=== PATIENT | female | born 1955 | race Caucasian/White ===

== ENCOUNTER → 2017-10-07 09:05 | Emergency (ER) | payer MEDICARE, MEDICAID, SELFPAY ==
[2017-10-07 09:06] VITALS: BP 159/101; PULSE 111; RESP 20; TEMP 36.6; O2SAT 96; BMI 29.5
--- NOTE | 2017-10-07 09:22 | EKG12_ITS ---
Test Reason : ABNLPAIN Blood Pressure : / mmHG Vent. Rate : 099 BPM Atrial Rate : 099 BPM P-R Int : 160 ms QRS Dur : 094 ms QT Int : 346 ms P-R-T Axes : 046 -09 129 degrees QTc Int : 444 ms Normal sinus rhythm Nonspecific ST and T wave abnormality Abnormal ECG Confirmed by RITA TATE, SHARMIN ([id number]), metropolitan editor JAN VALENTIN ([id number]) on 10/09/2017 12:59:05 PM Referred By: HEMALATHA Confirmed By:SHARMIN SALINAS MD
--- NOTE | 2017-10-07 09:22 | CT_ITS ---
STUDY: CT ABDOMEN AND PELVIS WITH CONTRAST REASON FOR EXAM: Female, 62 years old. Nausea and diarrhea RADIATION DOSAGE (If Supplied By Facility): CTDIvol = ( 16.72 ) mGy, DLP = ( 1401.05 ) mGycm TECHNIQUE: Transaxial images were obtained from the dome of the diaphragm to the symphysis pubis with oral contrast. 100 ml of Isovue 300 contrast was administered. Sagittal and coronal images were reconstructed. Individualized dose optimization techniques were used for this CT. COMPARISON: 08/17/2013 FINDINGS: Atelectasis in the lung bases. The visualized portions of the heart are within normal limits. There is decreased attenuation of the liver consistent with steatosis. There is non-visualization of the gallbladder, which may be secondary to either contraction or a prior cholecystectomy. Pneumobilia is noted. Normal spleen. Normal pancreas. Normal bilateral adrenal glands. Normal right kidney. Normal left kidney. Small nonenhancing left renal cyst. There is a small hiatal hernia. Normal small intestine. There are multiple colonic diverticula consistent with diverticulosis. The appendix is visualized and appears normal. Normal abdominal aorta. Normal inferior vena cava. Normal retroperitoneum. Normal urinary bladder. There is absence of the uterus consistent with a prior hysterectomy. Normal abdominal wall. There are diffuse degenerative changes of the visualized lumbar spine. CT/Abdomen/Pelvis WITH Contrast IMPRESSION: Nonvisualized gallbladder. Pneumobilia. Fatty steatosis of the liver. No acute findings of the small or large bowel. Electronically Signed: Power Farias DO at 13:09 EST Tel , Service support ,
--- NOTE | 2017-10-07 09:28 | ED.DCSUM_ITS ---
- ER Visit Summary Date of Service: 10/07/17 Chief Complaint: [Nausea] History of Present Illness: The patient is a 62 F [who presents the emergency department with nausea. She has chronic ongoing problems with her abdomen. She is followed with Dr. Spicer. She had an upper endoscopy 2 weeks ago which showed a hiatal hernia. She had an appointment yesterday because she could not get her nausea under control and was started on Reglan. She scheduled for gastric emptying study on . She cannot sleep because the nausea persist. She has no vomiting. Last night she had 10-12 episodes of watery diarrhea. She has a history of a complete hysterectomy no other abdominal surgeries. Urine has been unchanged. She has some mild right back pain. She is a smoker. She has a history of COPD. She has poorly controlled diabetes and her blood sugars have been running over 300.] Physical Examination: [] Blood pressure 159/101 heart rate 111 respiratory rate 20 WN WD NAD PERRL EOMI MMM NECK supple and nontender, no masses RRR no murmur rub or gallop, no peripheral edema, symmetric radial pulses CTAB no respiratory distress ABDOMEN is soft mild epigastric tenderness, normal bowel sounds, no distension, no rebound or guarding SKIN is warm and dry no rashes Alert and Oriented x3, CN II-XII in tact, no motor or sensory deficits, gait normal No lymphadenopathy Tearful Test Results: [] Emergency Department Course and Treatment: [Patient was given fluids. Screening labs consistent with a leukocytosis at 15.2. In review of labs patient has a chronic leukocytosis. CT of the abdomen and pelvis was obtained with p.o. and IV contrast and shows pneumobilia and absence of the gallbladder consistent with prior cholecystectomy. Patient did improve with Phenergan and Ativan however nausea did come back she was given Zofran and states that did not help. She was then given another dose of Phenergan and Ativan. She has a gastric emptying study scheduled in 2 days. She is recently started on Reglan. I will write her a prescription for Phenergan suppositories. At this time I think she can be discharged home to continue to follow with Dr. pSicer] Treatment Plan: [] Disposition: [Discharge] Impression: [1. Nausea 2. Mild dehydration 3. Chronic leukocytosis] This note was generated with [employer] software. It may contain incorrect words, spelling, and punctuation that were not noted in review of the chart prior to signing ED Disposition - Plan for ED Patient: Chief Complaint: Abd Pain Referrals: Ricci Broussard MD [Primary Care Provider] -
[2017-10-07] MEDS: 0.9% Normal Saline 1,000 ML 1000 ML IV (09:33)
[2017-10-07] MEDS: LORazepam 2 MG/ML Syringe 0.5 MG IV ×2 (09:33→13:57)
[2017-10-07 09:49] LABS: Absolute Lymphocyte Count 2.74 X10^3/ul (0.83-4.51); Absolute Neutrophil Count 11.3 X10^3/uL (2.0-7.7); Basophil# 0.05 X10^3/uL; Basophil% 0.3 % (0-1); Eosinophil# 0.04 X10^3/uL; Eosinophils% 0.3 % (0-5); Hematocrit 47.7 % (37-47); Hemoglobin 16.8 g/dl (12.0-15.0); Lymphocyte # 2.74 X10^3/ul (4.0); Mean Corp Hgb Conc 35.2 g/gl (32-36); Mean Corpuscular Hgb 31.2 pg (27.0-32.0); Mean Corpuscular Volume 88.7 fL (81-99); Mean Platelet Vol. 9.4 fl (6.2-12.0); Monocyte# 1.01 X10^3/uL; Monocyte% 6.6 % (0-10); Neutrophil # 11.32 X10^3/uL (2.7-7.7); Neutrophil % 74.3 % (47-70); Platelet Count 462 K/mm3 (150-450); RBC Distribution Width CV 13.6 % (11.6-14.6); RBC Distribution Width SD 44.2 fl (35.1-43.9); Red Blood Count 5.38 M/mm3 (4.2-5.4); White Blood Count 15.2 K/mm3 (4.4-11.0)
[2017-10-07 09:54] LABS: POSITIVE COUNT NO; POSITIVE DIFFERENTIAL NO; POSITIVE MORPHOLOGY NO
[2017-10-07 10:03] LABS: AST(SGOT) 12 U/L (15-37); Alanine Aminotransfer ALT/SGPT 20 U/L (13-56); Alkaline Phosphatase 94 U/L (45-117); Anion Gap 9 (5-15); BUN 5 mg/dL (7-18); BUN/Creat Ratio 7.2 RATIO (10-20); Calcium,Total 9.6 mg/dL (8.5-10.1); Chloride 102 mmol/L (98-107); EST Glomerular Filtration Rate 91 mL/min (>60); Est Glom Filt Rate - Afr Amer 110 mL/min (>60); Estimated Creatinine Clearance 83.11 ml/min; Glucose 302 mg/dL (74-106); Lipase 120 U/L (73-393); Potassium 3.5 mmol/L (3.5-5.1); Sodium Level 136 mmol/L (136-145)
[2017-10-07 10:14] LABS: Mucous, Urine 0 SEEN /hpf (<or=2+); Red Blood Cells-Urine 0 SEEN /hpf (0-5)
[2017-10-07 10:19] LABS: Color, Urine Yellow (Yellow); Glucose, Dipstick 1000 mg/dl (Normal); Ketone-Dipstick 50 mg/dl (Negative); Leukocyte Esterase-Dipstick 500 /ul (Negative); Nitrite-Dipstick Negative (Negative); Occult Blood-Urine 25 /ul (Negative); Protein-Dipstick Negative (Negative); Specific Gravity, Urine 1.015 (1.002-1.030); Urine Bilirubin Dipstick Negative (Negative); Urine Clarity Sl. Cloudy (Clear); Urine Urobilinogen Normal (Normal)
[2017-10-07 10:29] LABS: Bacteria RARE /hpf (None Seen); Squamous Epithelial Cells - UA 0-5 SEEN /hpf (5-10); White Blood Cells 0-5 SEEN /hpf (0-5)
[2017-10-07 10:30] LABS: Yeast-Urine 1+ /hpf (None Seen)
[2017-10-07] MEDS: Ondansetron 4 MG/2 ML Vial IV (12:19)
[2017-10-07 12:22] VITALS: BP 141/80; PULSE 92; RESP 16; O2SAT 100
--- NOTE | 2017-10-07 13:47 | ED.DEP ---
ED Disposition - Plan for ED Patient: Chief Complaint: Abd Pain Instructions: ED Nausea Vomiting Prescriptions: ProMETHAzine [Phenergan] 25 mg RECTAL Q6H PRN PRN #14 suppos. PRN Reason: Nausea Referrals: Ricci Broussard MD [Primary Care Provider] - 3-5 Days Godwin Spicer MD [STAFF PHYSICIAN] -
[2017-10-07 14:12] VITALS: BP 152/81; PULSE 95; RESP 18; O2SAT 98
== END ==
PROVIDERS: Emergency Provider Emergency Medicine; Family Provider Family Medicine; PCP Family Medicine
DX: R11.0 Nausea (principal); E86.0 Dehydration; D72.829 Elevated white blood cell count, unspecified; R10.816 Epigastric abdominal tenderness; M54.9 Dorsalgia, unspecified; R19.7 Diarrhea, unspecified; R32 Unspecified urinary incontinence; J44.9 Chronic obstructive pulmonary disease, unspecified; E11.65 Type 2 diabetes mellitus with hyperglycemia; Z86.79 Personal history of other diseases of the circulatory system; K44.9 Diaphragmatic hernia without obstruction or gangrene; Z90.710 Acquired absence of both cervix and uterus; Z90.49 Acquired absence of other specified parts of digestive tract; Z79.899 Other long term (current) drug therapy; Z72.0 Tobacco use
CPT/HCPCS: 74177; 80053; 81001; 83690; 85025; 93005; 96361; 96374; 96375; 96376; 99283; J7030; Q9967; A4216; J2405

== ENCOUNTER 2017-10-13 10:51 | Emergency (ER) | payer MEDICARE, MEDICAID, SELFPAY ==
[2017-10-13 10:53] VITALS: BP 149/76; PULSE 101; RESP 30; TEMP 36.9; O2SAT 96; BMI 28.5
[2017-10-13] MEDS: LORazepam 2 MG/ML Syringe 1 MG IV (11:34)
[2017-10-13] MEDS: 0.9% Normal Saline 1,000 ML 1000 ML IV (11:34)
[2017-10-13 11:40] LABS: Absolute Lymphocyte Count 4.74 X10^3/ul (0.83-4.51); Absolute Neutrophil Count 8.4 X10^3/uL (2.0-7.7); Basophil# 0.06 X10^3/uL; Basophil% 0.4 % (0-1); Eosinophil# 0.05 X10^3/uL; Eosinophils% 0.3 % (0-5); Hematocrit 44.4 % (37-47); Hemoglobin 15.7 g/dl (12.0-15.0); Lymphocyte # 4.74 X10^3/ul (4.0); Lymphocyte % 33.1 % (19-41); Mean Corp Hgb Conc 35.4 g/gl (32-36); Mean Corpuscular Volume 87.7 fL (81-99); Mean Platelet Vol. 9.5 fl (6.2-12.0); Monocyte# 0.98 X10^3/uL; Monocyte% 6.9 % (0-10); Neutrophil # 8.42 X10^3/uL (2.7-7.7); Platelet Count 355 K/mm3 (150-450); RBC Distribution Width CV 13.2 % (11.6-14.6); RBC Distribution Width SD 42.1 fl (35.1-43.9); Red Blood Count 5.06 M/mm3 (4.2-5.4); White Blood Count 14.3 K/mm3 (4.4-11.0)
[2017-10-13 11:42] LABS: POSITIVE COUNT NO; POSITIVE DIFFERENTIAL NO; POSITIVE MORPHOLOGY NO
--- NOTE | 2017-10-13 11:45 | RAD_ITS ---
STUDY: X-RAY CHEST REASON FOR EXAM: Female, 62 years old. Cough. TECHNIQUE: PA and lateral views of the chest. COMPARISON: Comparison is made with prior study dated October 14, 2016. FINDINGS: The lungs are clear and expanded. There is no demonstrated pleural abnormality. Normal size heart. Normal mediastinum and karsten. Normal visualized pulmonary arteries. There is atherosclerotic tortuosity of the aortic arch and descending thoracic aorta. There are degenerative changes of the visualized thoracic spine. Normal visualized ribs, clavicles, and shoulders. There is no demonstrated abnormality of the visualized soft tissue structures of the upper abdomen. RAD/Chest PA and Lateral IMPRESSION: No acute abnormality is seen. Electronically Signed: Jose Angel Tim MD at 13:48 EST Tel [phone], Service support ,
[2017-10-13 11:50] LABS: AST(SGOT) 11 U/L (15-37); Alanine Aminotransfer ALT/SGPT 23 U/L (13-56); Albumin, Serum 3.7 g/dL (3.2-5.0); Alkaline Phosphatase 75 U/L (45-117); Anion Gap 10 (5-15); BUN 10 mg/dL (7-18); BUN/Creat Ratio 11.9 RATIO (10-20); Calcium,Total 9.8 mg/dL (8.5-10.1); Chloride 104 mmol/L (98-107); Creatinine, Serum 0.84 mg/dL (0.55-1.02); EST Glomerular Filtration Rate 74 mL/min (>60); Est Glom Filt Rate - Afr Amer 89 mL/min (>60); Estimated Creatinine Clearance 71.85 ml/min; Globulin 3.6 g/dL (2.2-4.2); Glucose 323 mg/dL (74-106); Lipase 118 U/L (73-393); Potassium 3.9 mmol/L (3.5-5.1); Protein, Total 7.3 g/dL (6.4-8.2); Sodium Level 136 mmol/L (136-145)
--- NOTE | 2017-10-13 11:54 | RAD_ITS ---
STUDY: X-RAY - ABDOMEN/PELVIS REASON FOR EXAM: Female, 62 years old. Nausea. TECHNIQUE: AP supine and upright views of the abdomen and pelvis. COMPARISON: None. FINDINGS: Normal visualized lung bases. There is a moderate amount of colonic fecal material. There is no demonstrated free abdominal air. The visualized liver, spleen and kidneys are grossly normal in size and morphology. Normal soft tissue structures. There are diffuse changes of the visualized lumbar spine. RAD/Abd Inc Decub and/or Erect IMPRESSION: Moderate amount of fecal material is seen in the colon. Electronically Signed: Jose Angel Tim MD at 12:16 EST Tel [phone], Service support ,
--- NOTE | 2017-10-13 12:19 | ED.RN ---
Patient resting comfortably with eyes closed. No distress noted. Await results.
[2017-10-13 12:35] VITALS: BP 157/92; PULSE 84; RESP 16; O2SAT 93
[2017-10-13 12:38] LABS: Mucous, Urine 0 SEEN /hpf (<or=2+); Red Blood Cells-Urine 0 SEEN /hpf (0-5)
[2017-10-13 12:41] LABS: Color, Urine Yellow (Yellow); Glucose, Dipstick 1000 mg/dl (Normal); Ketone-Dipstick 5 mg/dl (Negative); Leukocyte Esterase-Dipstick 500 /ul (Negative); Nitrite-Dipstick Negative (Negative); Occult Blood-Urine 10 /ul (Negative); Protein-Dipstick Negative (Negative); Urine Bilirubin Dipstick Negative (Negative); Urine Clarity Clear (Clear); Urine Urobilinogen Normal (Normal)
[2017-10-13 12:49] LABS: Bacteria RARE /hpf (None Seen); Squamous Epithelial Cells - UA 0-5 SEEN /hpf (5-10); White Blood Cells 5-10 SEEN /hpf (0-5)
--- NOTE | 2017-10-13 13:31 | ED.DCSUM_ITS ---
- ER Visit Summary Date of Service: 10/13/17 Chief Complaint: Nausea History of Present Illness: The patient is a 62 F who presents with nausea. She has a history of chronic nausea but it is worse for the past 8 days. She had diarrhea earlier but this has since resolved. She was recently seen in the emergency department for similar symptoms and had workup including a CT. She is also currently being worked up for gastroparesis. She reports cough and shortness of breath as well as bilateral ear pain and pressure. No fevers. No vomiting. Physical Examination: Afebrile heart rate 101 Patient appears very anxious Moist mucous membranes Tympanic membranes are clear Heart regular rhythm tachycardia Lungs are clear Abdomen soft nontender nondistended Alert Test Results: Laboratory studies are notable for white blood cell count 14.3. This is decreased from her prior labs and she appears to have a chronic leukocytosis. She also has 500 leukocyte esterase in the urine with 5-10 WBCs. This was also sent for culture. Chest x-ray and abdominal x-rays are notable for moderate fecal material but no acute process. Emergency Department Course and Treatment: She was treated with IV fluids Phenergan and Ativan. She is resting comfortably and reports symptomatic improvement on reevaluation. We will treat with Cipro. She will follow-up with her primary care physician. She understands to return for new or worsening symptoms. All questions answered at bedside patient comfortable with the plan. Treatment Plan: [] Disposition: Discharge Impression: UTI Chronic nausea Otalgia This note was generated with [employer] dictation software. It may contain incorrect words, spelling, and punctuation that were not noted in review of the chart prior to signing ED Disposition - Plan for ED Patient: Chief Complaint: General Illness Referrals: Ricci Broussard MD [Primary Care Provider] -
--- NOTE | 2017-10-13 13:32 | ED.DEP ---
ED Disposition - Plan for ED Patient: Chief Complaint: General Illness Instructions: ED UTI Cystitis Female, ED Nausea Vomiting Prescriptions: Ciprofloxacin [Cipro] 500 mg PO BID #14 tab Referrals: Ricci Broussard MD [Primary Care Provider] -
[2017-10-13 13:48] VITALS: BP 143/79; PULSE 80; RESP 14; O2SAT 97
== END 2017-10-13 14:27 | disposition home or self-care (01) ==
PROVIDERS: Emergency Provider Emergency Medicine; Family Provider Family Medicine; PCP Family Medicine
DX: N39.0 Urinary tract infection, site not specified (principal); R11.0 Nausea; H92.03 Otalgia, bilateral; R05 Cough; R06.00 Dyspnea, unspecified; E11.43 Type 2 diabetes mellitus with diabetic autonomic (poly)neuropathy; K31.84 Gastroparesis; K21.9 Gastro-esophageal reflux disease without esophagitis; J44.9 Chronic obstructive pulmonary disease, unspecified; M79.7 Fibromyalgia; Z90.89 Acquired absence of other organs; Z90.49 Acquired absence of other specified parts of digestive tract; Z90.710 Acquired absence of both cervix and uterus; Z79.899 Other long term (current) drug therapy; Z72.0 Tobacco use
CPT/HCPCS: 71046; 74019; 80048; 80053; 81001; 83690; 85025; 87086; 87088; 96361; 96374; 96375; 99283; J7030; A4216

== ENCOUNTER → 2018-04-27 20:08 | Emergency (ER) | payer MEDICARE, MEDICAID, SELFPAY ==
[2018-04-27 20:11] VITALS: BP 207/189; PULSE 103; RESP 26; TEMP 36.6; O2SAT 95; BMI 31.1
--- NOTE | 2018-04-27 20:20 | ED.VISSUMM ---
- ER Visit Summary Date of Service: 04/27/18 Chief Complaint: Nausea and vomiting History of Present Illness: The patient is a 63 F who is had nausea and vomiting for the past 4 days. She states she has been having some abdominal pain with it. It sharp and diffuse. She attributes it to the all the vomiting she has been doing. She has had some mild diarrhea as well. Denies any urinary symptoms. She states that she has been very diaphoretic for the past 4 days. She had mild chest pain that started tonight. She attributes it to her anxiety which she states is pretty bad. She also complains of slight headache. She denies any fevers. She did not take anything for the symptoms at home. Physical Examination: Vital signs reviewed. HEENT exam unremarkable. Heart is regular rate and rhythm without murmurs. Lungs are clear to auscultation. Abdomen is soft and nontender. Extremities reveal no edema. Skin exam normal. Neurologic exam reveals chronic twitching and movements. Test Results: EKG is normal sinus rhythm with nonspecific ST and T-wave changes. White blood cell count 12.4, sodium 147, chloride 109, potassium 3.3. Troponin normal. Liver enzymes normal. Urinalysis 2+ leukocytes and positive nitrites Emergency Department Course and Treatment: Patient was hydrated with normal saline. She was given IV Reglan. I did give her some Ativan which helped calm her down she feels much better. She did have a UTI so she will be given Cipro here. I will give her Cipro and Reglan for home. We will follow-up with her PCP Treatment Plan: [] Disposition: Discharge Impression: UTI, nausea and vomiting This note was generated with [employer] dictation software. It may contain incorrect words, spelling, and punctuation that were not noted in review of the chart prior to signing ED Disposition - Plan for ED Patient: Chief Complaint: Nausea/Vomiting Referrals: Ricci Broussard MD [Primary Care Provider] -
[2018-04-27] MEDS: Metoclopramide 10 MG/2 ML Vial IV (20:34)
[2018-04-27] MEDS: 0.9% Normal Saline 1,000 ML 1000 ML IV (20:34)
[2018-04-27 20:43] LABS: Absolute Lymphocyte Count 1.86 X10^3/ul (0.83-4.51); Absolute Neutrophil Count 9.8 X10^3/uL (2.0-7.7); Basophil# 0.01 X10^3/uL; Basophil% 0.1 % (0-1); Eosinophil# 0.03 X10^3/uL; Eosinophils% 0.2 % (0-5); Hematocrit 40.5 % (37-47); Hemoglobin 13.5 g/dl (12.0-15.0); Lymphocyte # 1.86 X10^3/ul (4.0); Mean Corp Hgb Conc 33.3 g/gl (32-36); Mean Corpuscular Hgb 30.1 pg (27.0-32.0); Mean Corpuscular Volume 90.4 fL (81-99); Mean Platelet Vol. 9.1 fl (6.2-12.0); Monocyte# 0.68 X10^3/uL; Monocyte% 5.5 % (0-10); Neutrophil # 9.77 X10^3/uL (2.7-7.7); Platelet Count 305 K/mm3 (150-450); RBC Distribution Width CV 13.4 % (11.6-14.6); RBC Distribution Width SD 44.2 fl (35.1-43.9); Red Blood Count 4.48 M/mm3 (4.2-5.4); White Blood Count 12.4 K/mm3 (4.4-11.0)
--- NOTE | 2018-04-27 20:43 | EKG12_ITS ---
Test Reason : CHEST PAIN/NAUSEA Blood Pressure : / mmHG Vent. Rate : 096 BPM Atrial Rate : 096 BPM P-R Int : 134 ms QRS Dur : 098 ms QT Int : 376 ms P-R-T Axes : 037 005 061 degrees QTc Int : 475 ms Normal sinus rhythm Normal ECG Confirmed by KARELY CARROLL ([id number]), magazine editor JAN VALENTIN ([id number]) on 05/05/2018 2:16:41 PM Referred By: CLEMENTINA/AMARA Confirmed By:KARELY CARROLL
[2018-04-27 20:45] LABS: POSITIVE COUNT NO; POSITIVE DIFFERENTIAL NO; POSITIVE MORPHOLOGY NO
[2018-04-27] MEDS: LORazepam 2 MG/ML Syringe 1 MG IV (20:46)
[2018-04-27 20:54] VITALS: BP 153/84; PULSE 89; RESP 26; O2SAT 95
[2018-04-27 21:02] LABS: AST(SGOT) 15 U/L (15-37); Alanine Aminotransfer ALT/SGPT 26 U/L (13-56); Albumin, Serum 3.6 g/dL (3.2-5.0); Alkaline Phosphatase 70 U/L (45-117); Anion Gap 14 (5-15); BUN 13 mg/dL (7-18); BUN/Creat Ratio 20.2 RATIO (10-20); Calcium,Total 8.9 mg/dL (8.5-10.1); Chloride 109 mmol/L (98-107); Creatinine, Serum 0.64 mg/dL (0.55-1.02); EST Glomerular Filtration Rate 99 mL/min (>60); Est Glom Filt Rate - Afr Amer 120 mL/min (>60); Estimated Creatinine Clearance 89.77 ml/min; Globulin 3.5 g/dL (2.2-4.2); Glucose 197 mg/dL (74-106); Lipase 30 U/L (73-393); Potassium 3.3 mmol/L (3.5-5.1); Protein, Total 7.1 g/dL (6.4-8.2); Sodium Level 147 mmol/L (136-145)
[2018-04-27 21:48] LABS: Mucous, Urine 0 SEEN /hpf (<or=2+); Red Blood Cells-Urine 0 SEEN /hpf (0-5)
[2018-04-27 21:56] LABS: Color, Urine Yellow (Yellow); Glucose, Dipstick Normal (Normal); Leukocyte Esterase-Dipstick 500 /ul (Negative); Nitrite-Dipstick Positive (Negative); Occult Blood-Urine 50 /ul (Negative); Protein-Dipstick 30 mg/dl (Negative); Specific Gravity, Urine 1.025 (1.002-1.030); Urine Bilirubin Dipstick Negative (Negative); Urine Clarity Sl. Cloudy (Clear); Urine Urobilinogen 1 mg/dl (Normal)
[2018-04-27 21:58] LABS: Ketone-Dipstick 150 mg/dl (Negative)
--- NOTE | 2018-04-27 22:02 | ED.DEP ---
ED Disposition - Plan for ED Patient: Disposition: Home or Assisted Living Chief Complaint: Nausea/Vomiting Instructions: ED UTI Cystitis Female Prescriptions: Ciprofloxacin [Cipro] 500 mg PO BID #10 tab Metoclopramide [Reglan] 10 mg PO 4X/DAY PRN #20 tab PRN Reason: Headache Referrals: Ricci Broussard MD [Primary Care Provider] -
[2018-04-27 22:04] LABS: Bacteria 4+ /hpf (None Seen); Squamous Epithelial Cells - UA 5-10 SEEN /hpf (5-10); White Blood Cells 10-25 SEEN /hpf (0-5)
[2018-04-27] MEDS: Ciprofloxacin 500 MG Tablet PO (22:10)
[2018-04-27 22:17] VITALS: BP 135/73; PULSE 94; RESP 16; O2SAT 95
== END | disposition home or self-care (01) ==
PROVIDERS: Emergency Provider Emergency Medicine; Family Provider Family Medicine; PCP Family Medicine
DX: N39.0 Urinary tract infection, site not specified (principal); R11.2 Nausea with vomiting, unspecified; R51 Headache; R07.9 Chest pain, unspecified; F41.9 Anxiety disorder, unspecified; Z79.899 Other long term (current) drug therapy
CPT/HCPCS: 80053; 81001; 83690; 84484; 85025; 87086; 87088; 87186; 93005; 96361; 96374; 96375; 99285; J7030; A4216; J2405

== ENCOUNTER 2018-07-04 19:33 | Emergency (ER) | payer MEDICARE, MEDICAID, SELFPAY ==
[2018-07-04 19:35] VITALS: BP 147/107; PULSE 113; RESP 19; TEMP 36.5; O2SAT 95; BMI 31.9
--- NOTE | 2018-07-04 19:54 | ED.RN ---
PT VERY UPSET WITH FAMILY MEMBERS BEING MEAN, DISRESPECTFUL TO PT. PT DENIES SUICIDAL IDEATION OR HOMICIDAL IDEATION.
[2018-07-04 20:12] VITALS: BP 161/93; PULSE 107; RESP 24; O2SAT 96
--- NOTE | 2018-07-04 20:15 | EKG12_ITS ---
Test Reason : [facility] [place] Blood Pressure : / mmHG Vent. Rate : 105 BPM Atrial Rate : 105 BPM P-R Int : 146 ms QRS Dur : 082 ms QT Int : 336 ms P-R-T Axes : 048 -01 105 degrees QTc Int : 444 ms Sinus tachycardia Nonspecific ST and T wave abnormality Abnormal ECG Confirmed by RITA TATE, SHARMIN ([id number]), material expeditor JAN VALENTIN ([id number]) on 07/07/2018 3:57:53 PM Referred By: JAMES Confirmed By:SHARMIN SALINAS MD
[2018-07-04 20:56] LABS: Absolute Lymphocyte Count 3.15 X10^3/ul (0.83-4.51); Absolute Neutrophil Count 8.6 X10^3/uL (2.0-7.7); Basophil# 0.04 X10^3/uL; Basophil% 0.3 % (0-1); Eosinophil# 0.09 X10^3/uL; Eosinophils% 0.7 % (0-5); Hematocrit 45.3 % (37-47); Hemoglobin 15.1 g/dl (12.0-15.0); Lymphocyte # 3.15 X10^3/ul (4.0); Lymphocyte % 24.8 % (19-41); Mean Corp Hgb Conc 33.3 g/gl (32-36); Mean Corpuscular Hgb 30.2 pg (27.0-32.0); Mean Corpuscular Volume 90.6 fL (81-99); Mean Platelet Vol. 9.4 fl (6.2-12.0); Monocyte# 0.85 X10^3/uL; Monocyte% 6.7 % (0-10); Neutrophil # 8.55 X10^3/uL (2.7-7.7); Neutrophil % 67.3 % (47-70); Platelet Count 374 K/mm3 (150-450); RBC Distribution Width CV 13.5 % (11.6-14.6); RBC Distribution Width SD 44.2 fl (35.1-43.9); White Blood Count 12.7 K/mm3 (4.4-11.0)
[2018-07-04 21:05] LABS: POSITIVE COUNT NO; POSITIVE DIFFERENTIAL NO; POSITIVE MORPHOLOGY NO
[2018-07-04] MEDS: LORazepam 1 MG Tablet PO (21:06)
[2018-07-04] MEDS: proMETHazine 25 MG Tablet PO (21:06)
[2018-07-04 21:08] LABS: Mucous, Urine 0 SEEN /hpf (<or=2+); Red Blood Cells-Urine 0 SEEN /hpf (0-5)
[2018-07-04 21:13] LABS: BUN 9 mg/dL (7-18); Creatinine, Serum 0.62 mg/dL (0.55-1.02); EST Glomerular Filtration Rate 104 mL/min (>60); Estimated Creatinine Clearance 92.66 ml/min; Glucose 131 mg/dL (74-106)
[2018-07-04 21:14] LABS: Anion Gap 8 (5-15); BUN/Creat Ratio 14.6 RATIO (10-20); Calcium,Total 8.9 mg/dL (8.5-10.1); Chloride 108 mmol/L (98-107); Est Glom Filt Rate - Afr Amer 126 mL/min (>60); Potassium 3.5 mmol/L (3.5-5.1); Sodium Level 140 mmol/L (136-145); Thyroid Stim Hormone (TSH) 0.49 uIU/mL (0.358-3.74)
[2018-07-04 21:14] LABS: Glucose, Dipstick Normal (Normal); Ketone-Dipstick 15 mg/dl (Negative); Leukocyte Esterase-Dipstick 500 /ul (Negative); Nitrite-Dipstick Positive (Negative); Occult Blood-Urine 50 /ul (Negative); Protein-Dipstick 30 mg/dl (Negative); Specific Gravity, Urine 1.025 (1.002-1.030); Urine Bilirubin Dipstick Negative (Negative); Urine Urobilinogen Normal (Normal)
[2018-07-04 21:20] LABS: Color, Urine Yellow (Yellow); Urine Clarity Sl Cldy (Clear)
[2018-07-04 21:23] LABS: Bacteria 4+ /hpf (None Seen); Squamous Epithelial Cells - UA 0-5 SEEN /hpf (5-10); White Blood Cells 10-25 SEEN /hpf (0-5)
[2018-07-04 21:30] LABS: Alcohol, Blood (Medical)-Serum < 3.0 mg/dL
[2018-07-04 21:31] LABS: Amphetamine Urine VISTA NEGATIVE (<1000 ng/mL); Barbiturate Urine VISTA NEGATIVE (< 200 ng/mL); Benzodiazepine Urine VISTA NEGATIVE (< 200 ng/mL); Cocaine Urine VISTA NEGATIVE (< 300 ng/mL); Ecstacy Urine VISTA NEGATIVE (< 500 ng/mL); Methadone Urine VISTA NEGATIVE (< 300 ng/mL); PCP Urine VISTA NEGATIVE (< 25 ng/mL); THC Urine VISTA POSITIVE (< 50 ng/mL); Vista UDS pH Range 7
[2018-07-04] MEDS: Nitrofurantoin Macrocrystals 100 MG Capsule PO (21:43)
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
[2018-07-04] MEDS: Ibuprofen 200 MG Tablet 400 MG PO (22:25)
[2018-07-04 22:33] VITALS: BP 110/60; PULSE 72; RESP 18
--- NOTE | 2018-07-04 22:51 | ED.RN ---
NOAM FROM CRISIS IS HERE TO SEE PT.
[2018-07-05 00:08] VITALS: BP 130/80; PULSE 68; RESP 18
[2018-07-05 00:09] VITALS: BP 130/80; PULSE 68; RESP 18
== END 2018-07-05 00:38 | disposition home or self-care (01) ==
PROVIDERS: Emergency Provider Emergency Medicine; Family Provider Family Medicine; PCP Family Medicine
DX: F30.8 Other manic episodes (principal); N39.0 Urinary tract infection, site not specified; F31.9 Bipolar disorder, unspecified; F41.9 Anxiety disorder, unspecified; Z87.440 Personal history of urinary (tract) infections; Z79.899 Other long term (current) drug therapy
CPT/HCPCS: 36415; 80048; 80307; 80320; 81001; 84443; 85025; 93005; 99283; G0480

== ENCOUNTER → 2018-07-22 12:17 | Outpatient (CLI) | payer MEDICARE, MEDICAID, SELFPAY ==
[2018-07-22 14:12] LABS: Amphetamine Urine VISTA NEGATIVE (<1000 ng/mL); Barbiturate Urine VISTA NEGATIVE (< 200 ng/mL); Benzodiazepine Urine VISTA NEGATIVE (< 200 ng/mL); Cocaine Urine VISTA NEGATIVE (< 300 ng/mL); Ecstacy Urine VISTA NEGATIVE (< 500 ng/mL); Methadone Urine VISTA NEGATIVE (< 300 ng/mL); PCP Urine VISTA NEGATIVE (< 25 ng/mL); THC Urine VISTA NEGATIVE (< 50 ng/mL); Vista UDS pH Range 5
--- OUTSIDE RECORDS SUMMARY | 2018-09-16 21:27 | XMS RPT_ITS ---
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 REPOSITORY Office Visit ([facility]WS) IVET VALERO ([id number]) 1955 F Date Time Provider Department 06/30/18 11:00 AM Yasmany HOLLAND) FAMPWS During your visit today, we recorded the following information about you: Temperature Pulse Respiration Blood pressure 99.5 degrees 96/minute 14/minute 116/84 Weight 92.5 kg Dino Hernandez Isela 06/30/2018 1:05 PM Signed 63 year old female here for INACTIVATED INFLUENZA VACCINE. Season Patient is identified by name and date of : Yes [] CONTRAINDICATIONS color enhanced section Age less than 6 months? No Allergy to eggs, chicken, chicken feathers, or chicken dander? No Allergy to thimerosal (a preservative) or formaldehyde, gelatin? No History of severe reaction to any vaccine component or a previous dose of influenza vaccination? No History of Guillain-[place] Syndrome within 6 weeks after a previous influenza vaccine? No Patient is not moderately or severely ill? No Current temperature greater or equal to 100.4F? No History of Bone Marrow Transplant prior 6 months or solid organ transplant in the past 3 months ? No History of fainting after a prior injection or medical procedure? No- ? If patient has fainted in the past, the CDC recommends sitting or lying down for 15 minutes after the vaccination. [] VERIFICATION color enhanced section Was the answer Yes for any of the above contraindications? No contraindications present. Acceptable to proceed with vaccine. Patient/guardian agrees the above answers are true to the best of their knowledge? Yes Flu vaccine information sheet given? Yes See immunization activity in [facility] for details of immunizations adminstered today. Patient age: [age] year old For The 6625-2067 Flu Season 6-35 months old: Fluzone 0.25 ml - IM (Preservative Free) 3 years of age: Fluzone 0.5 ml - IM (Preservative Free) 3 years and older: Fluzone 0.5 ml- IM-(with Preservatives) 65+ years old: 2-49 years old Fluzone High-Dose 0.5 ml - IM (Preservative Free) FLUMIST- intranasal REMEMBER: If patient is less than 9 years of age and this is the first vaccine of Influenza to be received in any flu season, they should receive a second dose in one months time. Yasmany Holland PA-C 06/30/2018 1:05 PM Signed 63 year old female with c/o Son had abscess which ruptured in brain, life-flighted with immediate surgery. Not responsive. Also has abscess on heart. Had to take part of his brain out. Very worried. 1. Had UTI a few months ago which cleared with ATB. Mid March had bad nausea which was debilitating, no vomiting but heaving. Has nausea frequent;ly for years. Went to ER, told some kind of infection and started on Cipro, later switched to macrodantin. No fever checked but warm this morning. Having some incontinence, large gush with cough. A couple days with pain. Urinary frequency and urgency. Noted blood a few times. 2. Coughing over last few weeks. Nasal congestion; using nasal spray with oxymetolazine over last weeks. Cough occasionally productive. White, thick. Some wheezing. Smoking, was almost off cigs until recent stress. 3. DM2 followed by [facility]. Not checking sugars. Poor diet habits. Not checking sugars at home. Weight up to 204lbs. 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 - Depressive disorder, not elsewhere classified - DM (diabetes mellitus) (HCC) - Fibromyalgia - Migraine with aura, without mention of intractable migraine without mention of status migrainosus - Panic disorder without agoraphobia had hx of failed urine screen - Recurrent UTI - Tobacco use disorder PAST SURGICAL HISTORY Procedure Laterality Date - CHOLECYSTECTOMY - EGD W/O OR W/BRUSH/WASH 12/06/2015 EGD - LIGATE FALLOPIAN TUBE Tubal ligation - PAST SURGICAL HISTORY OF Left 03/2014 ANKLE FRACTURE REPAIR - S SLING BLADDER 2012 AND - TOTAL ABDOM HYSTERECTOMY Hysterectomy, REJI Social History Marital status: Spouse name: Years of education: Number of children: 3 Social History Main Topics Smoking status: Current Every Day Smoker Packs/day: 1.00 Years: 40.00 Types: Cigarettes Smokeless tobacco: Never Used Comment: Pt has cut back to 3 cigarettes daily. Alcohol use: No Drug use: No ACTIVE PROBLEM LIST Tobacco Use Disorder Degeneration of Cervical Intervertebral Disc Chronic Bronchitis (Hcc) Depressive Disorder, Not Elsewhere Classified Persistent Disorder of Initiating Or Maintaining Sleep Migraine With Aura, Without Mention of Intractable Migraine Without Mention of Status Migrainosus Panic Disorder Without Agoraphobia Fibromyalgia History of Recurrent [place] Dm (Diabetes Mellitus) (Hcc) Secondary Polycythemia Current Outpatient Prescriptions: promethazine (PHENERGAN) 25 mg suppository 1 Suppository by RECTAL route every 6 hours as needed. Disp: 12 Suppository Rfl: 0 albuterol HFA (VENTOLIN HFA) 90 mcg/actuation inhaler Inhale 2 Puffs as instructed every 4 hours as needed. Disp: 1 Inhaler Rfl: 0 ondansetron (ZOFRAN) 8 mg tablet Take 1 tablet by mouth every 8 hours as needed. Disp: 20 tablet Rfl: 1 ibuprofen (MOTRIN) 800 mg tablet Take 1 tablet by mouth every 8 hours as needed (FOR PAIN. TAKE WITH FOOD). Disp: 20 tablet Rfl: 1 pregabalin (LYRICA) 150 mg capsule Take 1 capsule by mouth three times daily for 90 days. Disp: 90 capsule Rfl: 2 amitriptyline (ELAVIL) 25 mg tablet Take 1 tablet by mouth daily at bedtime. Disp: 30 tablet Rfl: 5 omeprazole (PRILOSEC) 20 mg capsule Take 2 capsules by mouth daily before breakfast. Disp: 60 capsule Rfl: 3 albuterol (PROVENTIL) 2.5 mg /3 mL (0.083 %) nebulizer solution Use 3 mL via nebulizer every 4 hours as needed for Wheezing/Shortness of Breath. Disp: 120 Vial Rfl: 5 fluticasone (FLOVENT) 44 mcg/actuation inhaler Inhale 2 Puffs as instructed twice daily. Disp: 1 Inhaler Rfl: 1 ondansetron orally disintegrating (ZOFRAN ODT) 4 mg disintegrating tablet Take 1 tablet by mouth every 6 hours as needed for Nausea/Vomiting. Disp: 6 tablet Rfl: 1 fluticasone (FLONASE) 50 mcg/actuation nasal spray Use 2 Sprays in each nostril once daily. Rinse mouth after use. Disp: 1 Bottle Rfl: 11 Blood-Glucose Meter (BLOOD GLUCOSE MONITORING) monitoring kit 1 Each as needed. E11.9 Disp: 1 Each Rfl: 0 blood sugar diagnostic (BLOOD GLUCOSE TEST) test strip Test blood sugar twice daily. E11.9 Disp: 50 Strip Rfl: 3 Insulin Sellers, Disposable, 32 gauge x 5/16 ndle Use once daily with insulin Disp: 100 Each Rfl: 3 LORazepam (ATIVAN) 0.5 mg tab Take 0.5 mg by mouth twice daily as needed. Disp: Rfl: 2 Lancets lancets Check blood sugar twice daily Disp: 100 Each Rfl: 3 nystatin (MYCOSTATIN) cream Apply 1 application to affected area twice daily. Disp: 45 g Rfl: 0 hydrOXYzine pamoate (VISTARIL) 25 mg capsule Take 1 capsule by mouth three times daily as needed. (Patient not taking: Reported on 06/30/2018 ) Disp: 30 capsule Rfl: 0 promethazine (PHENERGAN) 25 mg tablet Take 1 tablet by mouth every 6 hours as needed. (Patient not taking: Reported on 06/30/2018 ) Disp: 42 tablet Rfl: 1 cyclobenzaprine (FLEXERIL) 10 mg tablet Take 1 tablet by mouth three times daily as needed. (Patient not taking: Reported on 06/30/2018 ) Disp: 30 tablet Rfl: 0 repaglinide (PRANDIN) 2 mg tablet Take 2 mg by mouth once daily. Disp: Rfl: DULoxetine (CYMBALTA) 30 mg capsule Take 1 capsule by mouth once daily. (Patient not taking: Reported on 06/30/2018 ) Disp: 60 capsule Rfl: 0 insulin glargine (TOUJEO) 300 unit/mL (1.5 mL) inpn Inject 22 Units subcutaneously every morning. E11.9 (Patient taking differently: Inject 40-45 Units subcutaneously every morning. E11.9 ) Disp: 3 Pen Rfl: 5 DULoxetine (CYMBALTA) 60 mg capsule TAKE TWO CAPSULES BY MOUTH ONCE DAILY Disp: Rfl: 0 No current facility-administered medications for this visit. ONE PNEUMOVAX PRIOR TO AGE 65 due on 1973 DTAP,TDAP,TD(1 - Tdap) due on 1976 MAMMOGRAM due on 1997 COLORECTAL CANCER SCREENING,SEE MODIFIER due on 2007 LUNG CANCER SCREENING due on 2012 DILATED RETINAL EXAM due on 04/12/2017 URINE ALBUMIN:CREATININE RATIO due on 09/19/2017 HBA1C due on 12/09/2017 INFLUENZA(1) due on 04/25/2018 LDL CHOLESTEROL due on 06/02/2018 DIABETIC FOOT EXAM due on 06/02/2018 EXAM: BP 116/84 Pulse 96 Temp 37.5 ?C (99.5 ?F) (Tympanic) Resp 14 Wt 92.5 kg (204 lb) BMI 32.43 kg/m? Pleasant overweight adult woman in no acute distress. Alert and oriented all spheres. Normal affect and cognition. Speech normal. No deficits to learning or comprehension. Skin warm, dry, pink to lips and nailbeds. Normal turgor. Respirations regular and unlabored. No accessory use. HEENT WNL. TM's clear. Nose and oropharynx free from injection or lesion. No cervical lymph nodes. Thyroid non-tender, no masses Chest CTA. HRRR without murmur or gallop. Extrem: no clubbing, cyanosis, edema. Extremities are warm and pink with prompt capillary refill. ASSESSMENT/PLAN: 1. Need for vaccination - ICD9: V05.9, ICD10: Z23 (primary diagnosis) - INFLUENZA VACCINE QUADRIVALENT AGE 3 YRS PLUS + IM 2. Type 2 diabetes mellitus without complication, without long-term current use of insulin (HCC) - ICD9: 250.00, ICD10: E11.9 uncontrolled - INSULIN GLARGINE (U-300) CONC. 300 UNIT/ML (1.5 ML) SUBCUTANEOUS PEN - HGB A1C - COMP METABOLIC PANEL 3. Chronic depression - ICD9: 311, ICD10: F32.9 Worse with recent stress. - CBC 4. Acute exacerbation of chronic bronchitis (HCC) - ICD9: 466.0, 491.9, ICD10: J20.9, J42 Continue current meds. Add Prom VC for cough 5. Abnormal urine - ICD9: 791.9, ICD10: R82.90 - URINE CULTURE 6. Nausea - ICD9: 787.02, ICD10: R11.0 - URINE CULTURE - NITROFURANTOIN MONOHYDRATE AND MACROCRYSTAL 100 MG ORAL CAP - PROMETHAZINE-PHENYLEPHRINE 6.25 MG-5 MG/5 ML SYRUP 7. Chronic UTI - ICD9: 599.0, ICD10: N39.0 - URINE CULTURE - NITROFURANTOIN MONOHYDRATE AND MACROCRYSTAL 100 MG ORAL CAP - UA DIP, URINE (POC) Will call with results Needs to F/U with endo. Will check labs and forward. F/u 3 months M Reuben Holland PA-C Referring Provider: SELF [[id number]] Allergies As of Date: 06/30/2018 Noted Allergy Reaction PENICILLINS 05/25/2008 4 - Hives SULFA (SULFONAMIDE ANTIBIOTICS) 09/19/2016 2 - Rash 14 - Other: See Comments Comments: Blisters and sore in throat Date Reviewed: 06/30/2018 Reviewed by: Dino Hernandez Ma - Fully Assessed Reason for Visit: kidney infection / bronchitis [Other] Cmt: bialteral hand pain - questions about prevnar 13 Imm/Inj [58] Cmt: Flu Vaccine Reason For Visit History Recorded Primary Visit Diagnosis:Need for vaccination [Z23] Other Visit Diagnoses:Type 2 diabetes mellitus without complication, without long-term current use of insulin (HCC) [E11.9] Chronic depression [F32.9] Acute exacerbation of chronic bronchitis (HCC) [J20.9, J42] Abnormal urine [R82.90] Nausea [R11.0] Chronic UTI [N39.0] Kidney infection [N15.9] Order(s):INFLUENZA VACCINE QUADRIVALENT AGE 3 YRS PLUS + IM [[id number]] Order #: [id number] UA DIP B/O [[id number]] Order #: [id number] insulin glargine U-300 conc (TOUJEO) 300 unit/mL (1.5 mL) inpnInject 40-45 Units subcutaneously every morning. E11.9Disp: Rfl: HGB A1C [QCDAV7N] Order #: [id number] FUTURE CBC [SQCBC] Order #: [id number] FUTURE COMP METABOLIC PANEL [SQCMP] Order #: [id number] FUTURE URINE CULTURE [SQURCUL] Order #: [id number] nitrofurantoin monohydrate and macrocrystal (MACROBID) 100 mg capsuleTake 1 capsule by mouth twice daily with meals for 7 days.Disp: 14 capsuleRfl: 0 promethazine-PHENYLephrine (PROMETHAZINE VC) 6.25- 5 mg/5 mL syrupTake 5 mL by mouth every 4 hours as needed.Disp: 120 mLRfl: 1 UA DIP, URINE (POC) [[id number]] Order #: [id number]. #:[id number] Prescriptions as of 06/30/2018 Sig: PROMETHAZINE 25 MG RECTAL SUP* 1 Suppository by RECTAL route* ALBUTEROL SULFATE HFA 90 MCG/* Inhale 2 Puffs as instructed * ONDANSETRON HCL 8 MG TABLET Take 1 tablet by mouth every * IBUPROFEN 800 MG TABLET Take 1 tablet by mouth every * PREGABALIN 150 MG CAPSULE Take 1 capsule by mouth three* AMITRIPTYLINE 25 MG TABLET Take 1 tablet by mouth daily * OMEPRAZOLE 20 MG CAPSULE,LESIA* Take 2 capsules by mouth amber* ALBUTEROL SULFATE 2.5 MG/3 ML* Use 3 mL via nebulizer every * FLUTICASONE 44 MCG/ACTUATION * Inhale 2 Puffs as instructed * ONDANSETRON 4 MG DISINTEGRATI* Take 1 tablet by mouth every * FLUTICASONE 50 MCG/ACTUATION * Use 2 Sprays in each nostril * BLOOD-GLUCOSE METER KIT 1 Each as needed. E11.9 BLOOD SUGAR DIAGNOSTIC STRIPS Test blood sugar twice daily.* PEN NEEDLE, DIABETIC 32 GAUGE* Use once daily with insulin LORAZEPAM 0.5 MG TABLET Take 0.5 mg by mouth twice da* LANCETS Check blood sugar twice daily NYSTATIN 100,000 UNIT/GRAM TO* Apply 1 application to affect* INSULIN GLARGINE (U-300) CONC* Inject 40-45 Units subcutaneo* NITROFURANTOIN MONOHYDRATE AND * Take 1 capsule by mouth twice* PROMETHAZINE-PHENYLEPHRINE 6.* Take 5 mL by mouth every 4 ho* HYDROXYZINE PAMOATE 25 MG CAP* Take 1 capsule by mouth three* Patient not taking: Reported on 06/30/2018 PROMETHAZINE 25 MG TABLET Take 1 tablet by mouth every * Patient not taking: Reported on 06/30/2018 CYCLOBENZAPRINE 10 MG TABLET Take 1 tablet by mouth three * Patient not taking: Reported on 06/30/2018 REPAGLINIDE 2 MG TABLET Take 2 mg by mouth once daily. Problem List As Of Date 06/30/2018 Noted Resolved TOBACCO USE DISORDER [F17.200] CERVICAL DISC DEGEN [M50.30] More... Chronic bronchitis (HCC) [J42] DEPRESSIVE DISORDER NEC [F32.9] PERSISTENT INSOMNIA [G47.00] INVALID FOR* MGRN [facility] MGRN [G43.109] PANIC DISORDER WITHOUT AGORAPHOBIA [F41.0] Fibromyalgia [M79.7] History of recurrent UTIs [Z87.440] INVALID FOR* DM (diabetes mellitus) ([facility]) [E11.9] Secondary polycythemia [D75.1] INVALID FOR* Prescriptions ordered this encounter Disp Refills Start End INSULIN GLARGINE (U-300) CONC. 300 U* 06/30/2018 Class: Med Update Route: SUBCUTANEOUS Sig: Inject 40-45 Units subcutaneously every morning. E11.9 NITROFURANTOIN MONOHYDRATE AND MACROCR* 14 c* 0 06/30/2018 07/07/2018 Route: ORAL Sig: Take 1 capsule by mouth twice daily with meals for 7 days. PROMETHAZINE-PHENYLEPHRINE 6.25 MG-5* 120 * 1 06/30/2018 Class: Print RX Route: ORAL Sig: Take 5 mL by mouth every 4 hours as needed. Medications Discontinued During This Encounter DULoxetine (CYMBALTA) 60 mg capsule 0 10/14/2017 06/30/2018 Class: Historical Med Sig: TAKE TWO CAPSULES BY MOUTH ONCE DAILY Disc: Reason for discontinue is not on file. DULoxetine (CYMBALTA) 30 mg capsule 60 c* 0 01/06/2018 06/30/2018 Route: ORAL Sig: Take 1 capsule by mouth once daily. Patient not taking: Reported on 06/30/2018 Disc: Reason for discontinue is not on file. insulin glargine (TOUJEO) 300 unit/m* 3 Pen 5 11/10/2017 06/30/2018 Route: SUBCUTANEOUS Sig: Inject 22 Units subcutaneously every morning. E11.9 Patient taking differently: Inject 40-45 Units subcutaneously every morning. E11.9 Disc: Adjust Sig - Block E-Cancel Encounter Status:Closed by Yasmany HOLLAND PA-C on 06/30/18 DONALDO Observed: 06/16/2018 Status: COMPLETED Source: [place] 12:00 AM [facility] KEMIVET Diaz ([id number]) 1955 F Date Time Provider Department 06/16/18 RICCI COLE During your visit today, we recorded the following information about you: Padmini Elizabeth Psr 06/16/2018 1:43 PM Signed Patient has been identified by name and date of : Yes Patient is calling to say that her son, Vern, just had brain surgery a few days ago and he still hasn't come out of it. She is requesting to get a script to help her get through this situation. Please advise. Thank you, RX INSTRUCTIONS: Patient aware RX will be sent to pharmacy. No need to notify patient. Padmini Elizabeth Psr Ricci Cole MD 06/16/2018 2:18 PM Signed Tell her to let us know if there is anything else we can do. rx sent. Lisa Carrero LPN 06/16/2018 3:26 PM Signed Phone number busy [phone]. Please keep trying. Lisa Barraza Psr 06/25/2018 1:18 PM Signed Patient is calling regarding the Vistaril prescription. She said that she was only given 10 days worth of this medication and is asking if she can get a refill on it. She asked to get a call back at [phone] Jaycee Cohn LPN 06/25/2018 1:34 PM Signed Called patient to discuss. Advised that should only be using PRN. She is having a really hard time right now they are not sure that son is going to make it. Tried to review medication list with her and she isn't taking some things listed due to side effects. Advised her that should really be seen for visit to get a daily medication to help her. Patient agrees and is going to try to get in to be seen. Allergies As of Date: 06/16/2018 Noted Allergy Reaction PENICILLINS 05/25/2008 4 - Hives SULFA (SULFONAMIDE ANTIBIOTICS) 09/19/2016 2 - Rash 14 - Other: See Comments Comments: Blisters and sore in throat Date Reviewed: 02/11/2018 Reviewed by: Lavonne Kasper LPN - Fully Assessed Reason for Visit: Refill Request [94] Order(s):hydrOXYzine pamoate (VISTARIL) 25 mg capsuleTake 1 capsule by mouth three times daily as needed.Disp: 30 capsuleRfl: 0 Prescriptions as of 06/16/2018 Sig: HYDROXYZINE PAMOATE 25 MG CAP* Take 1 capsule by mouth three* PROMETHAZINE 25 MG TABLET Take 1 tablet by mouth every * PROMETHAZINE 25 MG RECTAL SUP* 1 Suppository by RECTAL route* ALBUTEROL SULFATE HFA 90 MCG/* Inhale 2 Puffs as instructed * ONDANSETRON HCL 8 MG TABLET Take 1 tablet by mouth every * CYCLOBENZAPRINE 10 MG TABLET Take 1 tablet by mouth three * IBUPROFEN 800 MG TABLET Take 1 tablet by mouth every * PREGABALIN 150 MG CAPSULE Take 1 capsule by mouth three* AMITRIPTYLINE 25 MG TABLET Take 1 tablet by mouth daily * OMEPRAZOLE 20 MG CAPSULE,LESIA* Take 2 capsules by mouth amber* ALBUTEROL SULFATE 2.5 MG/3 ML* Use 3 mL via nebulizer every * FLUTICASONE 44 MCG/ACTUATION * Inhale 2 Puffs as instructed * ONDANSETRON 4 MG DISINTEGRATI* Take 1 tablet by mouth every * REPAGLINIDE 2 MG TABLET Take 2 mg by mouth once daily. DULOXETINE 30 MG CAPSULE,LESIA* Take 1 capsule by mouth once * FLUTICASONE 50 MCG/ACTUATION * Use 2 Sprays in each nostril * INSULIN GLARGINE (U-300) CONC* Inject 22 Units subcutaneousl* Patient taking differently: Inject 40-45 Units subcutaneo* DULOXETINE 60 MG CAPSULE,LESIA* TAKE TWO CAPSULES BY MOUTH ON* BLOOD-GLUCOSE METER KIT 1 Each as needed. E11.9 BLOOD SUGAR DIAGNOSTIC STRIPS Test blood sugar twice daily.* PEN NEEDLE, DIABETIC 32 GAUGE* Use once daily with insulin LORAZEPAM 0.5 MG TABLET Take 0.5 mg by mouth twice da* LANCETS Check blood sugar twice daily NYSTATIN 100,000 UNIT/GRAM TO* Apply 1 application to affect* Problem List As Of Date 06/16/2018 Noted Resolved TOBACCO USE DISORDER [F17.200] CERVICAL DISC DEGEN [M50.30] More... Chronic bronchitis (HCC) [J42] DEPRESSIVE DISORDER NEC [F32.9] PERSISTENT INSOMNIA [G47.00] INVALID FOR* MGRN W [facility] MGRN [G43.109] PANIC DISORDER WITHOUT AGORAPHOBIA [F41.0] Fibromyalgia [M79.7] History of recurrent UTIs [Z87.440] INVALID FOR* DM (diabetes mellitus) (HCC) [E11.9] Secondary polycythemia [D75.1] INVALID FOR* Prescriptions ordered this encounter Disp Refills Start End HYDROXYZINE PAMOATE 25 MG CAPSULE 30 c* 0 06/16/2018 Route: ORAL Sig: Take 1 capsule by mouth three times daily as needed. Encounter Status:Closed by MALDONADO FONSECA MA on 06/19/18 12 LEAD ELECTROCARDIOGRAM Observed: 05/05/2018 Status: F Source: [place] 2:17 PM [facility] REPOSITORY [facility] Cardiovascular Services [address] [place] [id number] Lead EKG 04/27/182013 MR#: [id number] Acct: [id number] Name: IVET VALERO Rep #: [id number] : 1955 63 From: Audie Carroll MD Attending Dr: Status: REG ER Ordering Dr: Chester Hamilton MD Date: 04/27/18 Location: ED Sex: F C Admitted: Test Reason : CHEST PAIN/NAUSEA Blood Pressure : / mmHG Vent. Rate : 096 BPM Atrial Rate : 096 BPM P-R Int : 134 ms QRS Dur : 098 ms QT Int : 376 ms P-R-T Axes : 037 005 061 degrees QTc Int : 475 ms Normal sinus rhythm Normal ECG Confirmed by AUDIE CARROLL ([id number]), scientific editor JAN VALENTIN ([id number]) on 05/05/2018 2:16:41 PM Referred By: CLEMENTINA/AMARA Confirmed By:AUDIE CARROLL 05/05/18 1416 Date Audie Carroll MD CC: Chester Hamilton MD; Ricci Cole MD Signed CNPN Observed: 05/01/2018 Status: COMPLETED Source: [place] 12:00 AM [facility] REPOSITORY Telephone ([facility]) MYRA VALEROORAJane Diaz ([id number]) 1955 F Date Time Provider Department 05/01/18 [facility] COLE [facility] During your visit today, we recorded the following information about you: Ricci Cole MD 05/01/2018 2:28 PM Signed I got an er urine culture that was positive for uti. Can we verify if they sent her hon on antibiotics from [facility] and what they sent her home on. Thanks. Marylu Bullock Ma 05/01/2018 3:20 PM Signed Pt was put on Cipro. Was advised that if no improvement, to follow up with dr Kelsey Cole MD 05/04/2018 7:45 PM Signed cipro will not cover. Based on final I and d. Begin macrobid. Ricci Cole MD 05/04/2018 7:47 PM Signed Discussed with patient. She is having issues tolerating meds anyway. Red flags for re-assessment reviewed with patient in detail. Also reminded she needs to follow up. Ricci Cole MD 05/04/2018 7:47 PM Signed Addended by: RICCI COLE MD on: 05/04/2018 07:47 PM Modules accepted: Orders Allergies As of Date: 05/01/2018 Noted Allergy Reaction PENICILLINS 05/25/2008 4 - Hives SULFA (SULFONAMIDE ANTIBIOTICS) 09/19/2016 2 - Rash 14 - Other: See Comments Comments: Blisters and sore in throat Date Reviewed: 02/11/2018 Reviewed by: Lavonne Kasper LPN - Fully Assessed Reason for Visit: urine culture [Other] Order(s):nitrofurantoin monohydrate and macrocrystal (MACROBID) 100 mg capsuleTake 1 capsule by mouth twice daily with meals for 7 days.Disp: 14 capsuleRfl: 0 Prescriptions as of 05/01/2018 Sig: NITROFURANTOIN MONOHYDRATE AND * Take 1 capsule by mouth twice* PROMETHAZINE 25 MG TABLET Take 1 tablet by mouth every * PROMETHAZINE 25 MG RECTAL SUP* 1 Suppository by RECTAL route* AMITRIPTYLINE 25 MG TABLET Take 1 tablet by mouth daily * ONDANSETRON HCL 8 MG TABLET Take 1 tablet by mouth every * CYCLOBENZAPRINE 10 MG TABLET Take 1 tablet by mouth three * ALBUTEROL SULFATE HFA 90 MCG/* Inhale 2 Puffs as instructed * PREGABALIN 150 MG CAPSULE Take 1 capsule by mouth three* FLUTICASONE 44 MCG/ACTUATION * Inhale 2 Puffs as instructed * FLUCONAZOLE 100 MG TABLET One tab PO in 3 days and then* ONDANSETRON 4 MG DISINTEGRATI* Take 1 tablet by mouth every * IBUPROFEN 800 MG TABLET Take 1 tablet by mouth every * REPAGLINIDE 2 MG TABLET Take 2 mg by mouth once daily. DULOXETINE 30 MG CAPSULE,LESIA* Take 1 capsule by mouth once * FLUTICASONE 50 MCG/ACTUATION * Use 2 Sprays in each nostril * INSULIN GLARGINE (U-300) CONC* Inject 22 Units subcutaneousl* Patient taking differently: Inject 40-45 Units subcutaneo* OMEPRAZOLE 20 MG CAPSULE,LESIA* Take 2 capsules by mouth amber* DULOXETINE 60 MG CAPSULE,LESIA* TAKE TWO CAPSULES BY MOUTH ON* BLOOD-GLUCOSE METER KIT 1 Each as needed. E11.9 BLOOD SUGAR DIAGNOSTIC STRIPS Test blood sugar twice daily.* PEN NEEDLE, DIABETIC 32 GAUGE* Use once daily with insulin LORAZEPAM 0.5 MG TABLET Take 0.5 mg by mouth twice da* LANCETS Check blood sugar twice daily ALBUTEROL SULFATE 2.5 MG/3 ML* Use 2.5 mg via nebulizer ever* NYSTATIN 100,000 UNIT/GRAM TO* Apply 1 application to affect* Problem List As Of Date 05/01/2018 Noted Resolved TOBACCO USE DISORDER [F17.200] CERVICAL DISC DEGEN [M50.30] More... Chronic bronchitis (HCC) [J42] DEPRESSIVE DISORDER NEC [F32.9] PERSISTENT INSOMNIA [G47.00] INVALID FOR* MGRN W AURA WO NTR MGRN [G43.109] PANIC DISORDER WITHOUT AGORAPHOBIA [F41.0] Fibromyalgia [M79.7] History of recurrent UTIs [Z87.440] INVALID FOR* DM (diabetes mellitus) (HCC) [E11.9] Secondary polycythemia [D75.1] INVALID FOR* Prescriptions ordered this encounter Disp Refills Start End NITROFURANTOIN MONOHYDRATE AND MACROCR* 14 c* 0 05/04/2018 05/11/2018 Route: ORAL Sig: Take 1 capsule by mouth twice daily with meals for 7 days. Encounter Status:Closed by MARYLU BULLOCK MA on 05/01/18 DISCHARGE INSTRUCTION Observed: 04/27/2018 Status: F Source: [place] 10:03 PM [facility] REPOSITORY [facility] Medical Records Department [address] [place] [address] Discharge Instruction 04/27/182201 MR#: [id number] Acct: [id number] Name: IVET VALERO Rep #: [id number] : 1955 63 From: Chester Hamilton MD PCP: Ricci Cole MD Status: REG ER ED Disposition - Plan for ED Patient: Disposition: Home or Assisted Living Chief Complaint: Nausea/Vomiting Instructions: ED UTI Cystitis Female Prescriptions: Ciprofloxacin [Cipro] 500 mg PO BID #10 tab Metoclopramide [Reglan] 10 mg PO 4X/DAY PRN #20 tab PRN Reason: Headache Referrals: Ricci Cole MD [Primary Care Provider] - What to do if you have Problems For any increased pain, shortness of breath, bleeding, nausea or vomiting, chest pain, or any unexpected problems, contact your Primary Care Provider. Call [facility] ([phone]) or report to the closest Emergency Room. Call 911 if necessary. 04/27/182202 <Electronically signed by Chester Hamilton MD> Date Chester Hamilton MD Cosigner Signature (If Indicated): Date CC: Ricci Cole MD EMERGENCY DEPARTMENT Observed: 04/27/2018 Status: F Source: [place] SUMMARY 10:02 PM [facility] REPOSITORY [facility] Medical Records Department [address] [place] [address] Emergency Department Summary 04/27/182019 MR#: [id number] Acct: [id number] Name: IVET VALERO Rep #: [id number] : 1955 63 From: Chester Hamilton MD PCP: Ricci Cole MD Status: REG ER - ER Visit Summary Date of Service: 04/27/18 Chief Complaint: Nausea and vomiting History of Present Illness: The patient is a 63 F who is had nausea and vomiting for the past 4 days. She states she has been having some abdominal pain with it. It sharp and diffuse. She attributes it to the all the vomiting she has been doing. She has had some mild diarrhea as well. Denies any urinary symptoms. She states that she has been very diaphoretic for the past 4 days. She had mild chest pain that started tonight. She attributes it to her anxiety which she states is pretty bad. She also complains of slight headache. She denies any fevers. She did not take anything for the symptoms at home. Physical Examination: Vital signs reviewed. HEENT exam unremarkable. Heart is regular rate and rhythm without murmurs. Lungs are clear to auscultation. Abdomen is soft and nontender. Extremities reveal no edema. Skin exam normal. Neurologic exam reveals chronic twitching and movements. Test Results: EKG is normal sinus rhythm with nonspecific ST and T-wave changes. White blood cell count 12.4, sodium 147, chloride 109, potassium 3.3. Troponin normal. Liver enzymes normal. Urinalysis 2+ leukocytes and positive nitrites Emergency Department Course and Treatment: Patient was hydrated with normal saline. She was given IV Reglan. I did give her some Ativan which helped calm her down she feels much better. She did have a UTI so she will be given Cipro here. I will give her Cipro and Reglan for home. We will follow-up with her PCP Treatment Plan: [] Disposition: Discharge Impression: UTI, nausea and vomiting This note was generated with KuponGidation software. It may contain incorrect words, spelling, and punctuation that were not noted in review of the chart prior to signing ED Disposition - Plan for ED Patient: Chief Complaint: Nausea/Vomiting Referrals: Ricci Cole MD [Primary Care Provider] - What to do if you have Problems For any increased pain, shortness of breath, bleeding, nausea or vomiting, chest pain, or any unexpected problems, contact your Primary Care Provider. Call [facility] ([phone]) or report to the closest Emergency Room. Call 911 if necessary. 04/27/182 <Electronically signed by Chester Hamilton MD> Date Chester Hamilton MD Cosigner Signature (If Indicated): Date CC: Ricci Cole MD URINALYSIS, COMPLETE Collected: 04/27/2018 Status: F Source: [place] 9:30 PM [facility] REPOSITORY Order Comment: Order Date: 04/27/18 How was Urine Obtained? CLEAN CATCH TYPE CODE TESTS RESULT OUT OF RANGE REFERENCE UNITS LAB L400.3000 Yellow COLOR Normal Yellow LAB L400.3050 Clear Normal CLARITY Sl. Cloudy LAB L400.3200 Normal mg/dl Normal GLUCOSE, UR Normal LAB L400.3300 Negative mg/dL Normal BILIRUBIN URINE Negative LAB L400.3400 Negative mg/dl High KETONE UR 150 Result Comment: CRITICAL VALUE *H LAB L400.3465 1.002-1.030 Normal SP.GR. DIPSTX 1.025 LAB L400.3550 5.0 - 8.0 pH Normal UR 5.0 LAB L400.3600 Negative mg/dl High 30 PROT DIPSTX LAB L400.3700 Normal mg/dl High 1 UROBILI LAB L400.3750 Negative High NITRITE UR Positive LAB L400.3780 Negative /ul High 50 OCCULT BLOOD-UR LAB L400.3800 Negative /ul High LEUK ESTERASE 500 LAB L400.4050 0-5 /hpf Normal WBC 10-25 SEEN LAB L400.4100 0-5 /hpf 0 Normal RBC-UA SEEN LAB L400.4150 5-10 /hpf Normal SQUAM EPI 5-10 SEEN LAB L400.4300 None Seen /hpf 4+ Normal BACTERIA LAB L400.4350 <or=2+ /hpf 0 Normal MUCUS, URINE SEEN Performed By: #### L400.0001 #### [facility] [address] [place], [address] Observed: 04/27/2018 Status: F Source: [place] CULTURE, URINE 9:30 PM [facility] REPOSITORY Order Date: 04/27/18 Urine Culture Copy of report sent to Infection Control Printer [id number] 04/30/18 0742 BLUCAS. ORGANISM 1: Presumptive E. coli Ina Count >100,000 Presumptive E. coli: REACTION Amikacin $ 8 S Amoxacillin/Clavulanic Acid $ >=32 R Ampicillin $ >=32 R Ampicillin/Sulbactam $ >=32 R Aztreonam $$$ 2 S Cefazolin $ >=64 R Cefepime $ <=1 S Ceftriaxone $ 8 S Ciprofloxacin $ >=4 R ESBL + Ertapenim $$$ <=0.5 S Gentamicin $ <=1 S Imipenem *NF <=0.25 S Levofloxacin $ >=8 R Meropenem $ <=0.25 S Nitrofurantoin $ <=16 S Piperacillin/Tazobactam $$ 8 S Tobramycin $ >=16 R Trimethoprim/Sulfametho $ >=320 R (NF) indicates non-formulary drug at [facility]. Approval by Infectious Disease Specialist required before non-formulary drugs may be ordered and/or dispensed. Performed By: #### M100.0650 #### [facility] [address] [place], [address] CBC W/DIFF, AUTOMATED Collected: 04/27/2018 Status: F Source: [place] 8:32 PM [facility] REPOSITORY TYPE CODE TESTS RESULT OUT OF RANGE REFERENCE UNITS LAB L100.1000 4.4-11.0 K/mm3 High WBC 12.4 LAB L100.1200 4.2-5.4 M/mm3 Normal RBC 4.48 LAB L100.1300 12.0-15.0 g/dl Normal HGB 13.5 LAB L100.1400 37-47 % Normal HCT 40.5 LAB L100.1500 81-99 fL Normal MCV 90.4 LAB L100.1600 27.0-32.0 pg Normal MCH 30.1 LAB L100.1700 32-36 g/gl Normal MCHC 33.3 LAB L100.1810 11.6-14.6 % Normal RDW CV 13.4 LAB L100.1820 35.1-43.9 fl High RDW SD 44.2 LAB L100.1900 150-450 K/mm3 Normal PLT 305 LAB L100.2000 6.2-12.0 fl Normal MPV 9.1 LAB L100.2100 47-70 % High NEUT% 79.0 LAB L100.2200 19-41 % Low LY% 15.0 LAB L100.2300 0-10 % Normal MONO% 5.5 LAB L100.2400 0-5 % Normal EO% 0.2 LAB L100.2500 0-1 % Normal BASO% 0.1 LAB L100.2550 0.0-0.9 % Normal IM GRAN % 0.200 Result Comment: IG% - Immature Granulocytes (promyelocytes, myelocytes and metamyelocytes) > 1% indicates that a LEFT SHIFT is Present. LAB L100.2620 2.0-7.7 X10 3/uL High Absolute Neut 9.8 LAB L100.2720 0.83-4.51 X10 3/ul Normal Absolute Lymph 1.86 Performed By: #### L100.0100 #### [facility] [address] [facility] [place], [address] COMPREHENSIVE METABOLIC Collected: 04/27/2018 Status: F Source: [facility] 8:32 PM [facility] REPOSITORY TYPE CODE TESTS RESULT OUT OF RANGE REFERENCE UNITS LAB L501.0100 74-106 mg/dL High GLU 197 Result Comment: Fasting Glucose result greater than or equal to 126 mg/dL suggests DIABETES MELLITUS per A.D.A. criteria. Please note revised GLUCOSE reference range effective 2017. LAB L501.1000 7-18 mg/dL Normal BUN 13 LAB L501.1100 0.55-1.02 mg/dL Normal CREAT,SERUM 0.64 Result Comment: The validity of the calculated GFR AND GFRAA in patients over 70 years has not been determined. Clinical correlation is essential. LAB L501.1110 >60 mL/min Normal EST GFR 99 Result Comment: Non- GFR Calc LAB L501.1115 >60 mL/min Normal EST GFR - AA 120 Result Comment: GFR Calc LAB L501.1255 ml/min Normal Estimated CRCL 89.77 LAB L501.1300 10-20 RATIO High BUN/CRE 20.2 LAB L501.1500 6.4-8. g/dL Normal 2 T PROT 7.1 LAB L501.1800 3.2-5. g/dL Normal 0 ALB 3.6 LAB L501.1950 2.2-4. g/dL Normal 2 GLOB 3.5 LAB L501.2000 0.9-2. RATIO Normal 4 A/G 1.0 LAB L501.2200 8.5-10 mg/dL Normal .1 CA 8.9 LAB L501.4100 15-37 U/L Normal AST 15 LAB L501.4305 45-117 U/L Normal ALK P 70 LAB L501.4405 13-56 U/L Normal ALT 26 LAB L501.4600 0.20-1 mg/dL Normal .00 T BILI 0.90 LAB L501.5300 136-14 mmol/L High 5 NA 147 LAB L501.5600 3.5-5. mmol/L Low 1 K 3.3 LAB L501.5900 98-107 mmol/L High CL 109 LAB L501.6100 21.0-3 mmol/L Normal 2.0 CO2 24.0 LAB L501.6200 5-15 Normal GAP 14 Performed By: #### L500.4050, L501.2450, L501.4010 #### [facility] [address] [place], [place], [id number] LIPASE Collected: 04/27/2018 Status: F Source: [place] 8:32 PM [facility] REPOSITORY TYPE CODE TESTS RESULT OUT OF REFERENCE UNITS RANGE LAB L501.2450 73-393 U/L Low LIPASE 30 Performed By: #### L500.4050, L501.2450, L501.4010 #### [facility] [address] [place], [address] TROPONIN-I Collected: 04/27/2018 Status: F Source: [place] 8:32 PM [facility] REPOSITORY TYPE CODE TESTS RESULT OUT OF RANGE REFERENCE UNITS LAB L501.4010 <0.045 ng/mL Normal < 0.015 TROPONIN-I Result Comment: TROPONIN-I EXPECTED VALUES <0.045 Negative 0.045 - 0.590 Consistent with Cardiac Damage > OR = 0.600 Critical Value Not every elevated troponin is indicative of IL. These values should be used with clinical judgement in examining the patient's clinical picture for diagnosis. To establish a diagnosis of IL versus myocardial injury, there must be a demonstrated rise and/or fall in the troponin values, in addition to ischemic symptoms, EKG changes, new regional wall motion abnormality, and/or angiographical evidence. PLEASE NOTE: REFERENCE RANGES EDITED 18 Performed By: #### L500.4050, L501.2450, L501.4010 #### [facility] [address] [place], [address] URINALYSIS WITH Collected: 02/11/2018 Status: F Source: [facility] 12:50 PM [facility] REPOSITORY TYPE CODE TESTS RESULT OUT OF RANGE REFERENCE UNITS LAB UCOL Yellow Color Yellow LAB [facility] Clear Clarity Abnormal Cloudy Alert LAB UGLUC Negative mg/dL Glucose, Abnormal Urine >=500 Alert LAB UBIL Negative Bilirubin, Urine Negative LAB UKET Negative Ketones, Abnormal Urine Trace Alert LAB USPG 1.005-1.030 Specific [place], Ur 1.028 LAB UHGB Negative Abnormal Hemoglobin/Blood, 1+ Alert Ur LAB UPH 4.5-8.0 pH 5.0 LAB UPROT Negative mg/dL Protein, Urine Negative LAB UUROB Normal Urobilinogen Normal LAB UNITR Negative Nitrites Abnormal Positive Alert LAB ULKEST Negative Leukest Abnormal 1+ Alert LAB UCOM Comments SEE COMMENT Result Comment: N/A LAB [facility] Urine SEE [place] Comment COMMENT Result Comment: N/A LAB UWBC 0-5 /HPF Abnormal WBC Alert 11-25 LAB URBC 0-3 /HPF Abnormal RBC Alert 6-10 LAB UEPI /HPF Epithelial Cells SEE COMMENT Result Comment: Few Squamous Epithelial Cells LAB UYEA 0 /HPF Abnormal Alert Yeast Many Result Comment: Budding Yeast Performed By: #### UAWMIC #### [facility] [address] [place], [place] [address] Observed: 02/11/2018 Status: F Source: [place] URINE CULTURE 8:45 AM [facility] REPOSITORY Sp. Request/Comment: - Specimen received in preservative Culture Result - 50,000 - <100,000 CFU/ml Three or more organisms, no one type predominant, suggesting contamination during collection. Recollect if clinically indicated. Performed By: #### URCUL #### [facility] [address] [place], [place] [address] PROGRESS Observed: 02/11/2018 Status: COMPLETED Source: [place] 8:43 AM [facility] REPOSITORY HNO ID: [id number] Author: Yasmany Alexis (Lamont) Skyler Service: (none) Author Type: Physician Firer Kiln Type: Progress Notes Filed: 02/11/2018 1:08 PM Note Text: 62 year old female with c/o 1. Possible UTI: increased urinary frequency with cramping in low abdomen over last 10 days. Occasional discomfort. Blood sugar 380s since sick. T102F 2 nights ago. No fever since. Nauseated but no vomiting. occasional low left back pain. 2. Has had URI sx over 2 weeks which stared with sinus drainage, pressure, chest heaviness, cough productive thick green. A little wheeze on occasion when laying down. Upper chest is sore with coughing. A little SOB. 3. DM2 uncontrolled. Seeing Chilango Castorena at [facility]. Has adjusted meds and following. 4/. High PSQ score. Acknowledges feeling low but feels r/t health issues. No energy. Low interest. No hope for change. No thoughts of hurting self. 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 - Depressive disorder, not elsewhere classified - DM (diabetes mellitus) (HCC) - Fibromyalgia - Migraine with aura, without mention of intractable migraine without mention of status migrainosus - Panic disorder without agoraphobia had hx of failed urine screen - Recurrent UTI - Tobacco use disorder PAST SURGICAL HISTORY Procedure Laterality Date - CHOLECYSTECTOMY - EGD W/O OR W/BRUSH/WASH 12/06/2015 EGD - LIGATE FALLOPIAN TUBE Tubal ligation - PAST SURGICAL HISTORY OF Left 03/2014 ANKLE FRACTURE REPAIR - S SLING BLADDER 2012 AND - TOTAL ABDOM HYSTERECTOMY Hysterectomy, REJI Social History Marital status: Spouse name: Years of education: Number of children: 3 Social History Main Topics Smoking status: Current Every Day Smoker Packs/day: 1.00 Years: 40.00 Types: Cigarettes Smokeless tobacco: Never Used Comment: Pt has cut back to 3 cigarettes daily. Alcohol use: No Drug use: No ACTIVE PROBLEM LIST Tobacco Use Disorder Degeneration of Cervical Intervertebral Disc Chronic Bronchitis (Hcc) Depressive Disorder, Not Elsewhere Classified Persistent Disorder of Initiating Or Maintaining Sleep Migraine With Aura, Without Mention of Intractable Migraine Without Mention of Status Migrainosus Panic Disorder Without Agoraphobia Fibromyalgia History of Recurrent Utis Dm (Diabetes Mellitus) (Hcc) Secondary Polycythemia Current Outpatient Prescriptions: ibuprofen (MOTRIN) 800 mg tablet Take 1 tablet by mouth every 8 hours as needed (FOR PAIN. TAKE WITH FOOD). Disp: 20 tablet Rfl: 1 cyclobenzaprine (FLEXERIL) 10 mg tablet Take 1 tablet by mouth three times daily as needed. Disp: 30 tablet Rfl: 0 promethazine (PHENERGAN) 25 mg tablet Take 1 tablet by mouth every 6 hours as needed. Disp: 42 tablet Rfl: 1 promethazine (PHENERGAN) 25 mg suppository 1 Suppository by RECTAL route every 6 hours as needed. Disp: 12 Suppository Rfl: 0 repaglinide (PRANDIN) 2 mg tablet Take 2 mg by mouth once daily. Disp: Rfl: DULoxetine (CYMBALTA) 30 mg capsule Take 1 capsule by mouth once daily. Disp: 60 capsule Rfl: 0 fluticasone (FLONASE) 50 mcg/actuation nasal spray Use 2 Sprays in each nostril once daily. Rinse mouth after use. Disp: 1 Bottle Rfl: 11 amitriptyline (ELAVIL) 25 mg tablet Take 1 tablet by mouth daily at bedtime. Disp: 30 tablet Rfl: 5 pregabalin (LYRICA) 150 mg capsule Take 1 capsule by mouth three times daily for 90 days. Disp: 90 capsule Rfl: 2 insulin glargine (TOUJEO) 300 unit/mL (1.5 mL) inpn Inject 22 Units subcutaneously every morning. E11.9 (Patient taking differently: Inject 40-45 Units subcutaneously every morning. E11.9 ) Disp: 3 Pen Rfl: 5 omeprazole (PRILOSEC) 20 mg capsule Take 2 capsules by mouth daily before breakfast. Disp: 60 capsule Rfl: 3 DULoxetine (CYMBALTA) 60 mg capsule TAKE TWO CAPSULES BY MOUTH ONCE DAILY Disp: Rfl: 0 albuterol HFA (VENTOLIN HFA) 90 mcg/actuation inhaler Inhale 2 Puffs as instructed every 4 hours as needed. Disp: 1 Inhaler Rfl: 0 LORazepam (ATIVAN) 0.5 mg tab Take 0.5 mg by mouth twice daily as needed. Disp: Rfl: 2 albuterol (PROVENTIL) 2.5 mg /3 mL (0.083 %) nebulizer solution Use 2.5 mg via nebulizer every 4 hours as needed for Wheezing/Shortness of Breath. Disp: Rfl: nystatin (MYCOSTATIN) cream Apply 1 application to affected area twice daily. Disp: 45 g Rfl: 0 Blood-Glucose Meter (BLOOD GLUCOSE MONITORING) monitoring kit 1 Each as needed. E11.9 Disp: 1 Each Rfl: 0 blood sugar diagnostic (BLOOD GLUCOSE TEST) test strip Test blood sugar twice daily. E11.9 Disp: 50 Strip Rfl: 3 Insulin Sellers, Disposable, 32 gauge x 5/16 ndle Use once daily with insulin Disp: 100 Each Rfl: 3 Lancets lancets Check blood sugar twice daily Disp: 100 Each Rfl: 3 No current facility-administered medications for this visit. ONE PNEUMOVAX PRIOR TO AGE 65 due on 1973 DTAP,TDAP,TD(1 - Tdap) due on 1976 MAMMOGRAM due on 1997 COLORECTAL CANCER SCREENING,SEE MODIFIER due on 2007 ZOSTER VACCINE (SHINGRIX)(1 of 2) due on 2007 DILATED RETINAL EXAM due on 04/12/2017 URINE ALBUMIN CREATININE RATIO due on 09/19/2017 HBA1C due on 03/10/2018 EXAM: OBJECTIVE: BP 144/88 Pulse 88 Temp 37 ?C (98.6 ?F) (Tympanic) Resp 20 Wt 94.8 kg (209 lb) SpO2 97% BMI 33.23 kg/m? General appearance: Pleasant overweight adult woman in no acute distress with depressed affect. Speaking in full sentences. Harsh cough noted. Respirations: regular, unlabored Color: pink to lips and nailbeds, normal turgor Skin: warm, dry, no unusual rashes or lesions Head: Normocephalic Eyes: sclerae and conjunctivae without injection or exudate, PERRLA, EOMI, corneal light reflex symmetric bilaterally Ears: TM's are clear/ enamorado bilaterally with normal landmarks, no swelling or deformity ear canal or external ear Nose/Sinuses: Nose patent. No turbinate swelling. Active exudate: none. Maxillary and frontal sinuses nontender to percussion. Oropharynx: oral membranes are moist. Lips, mucosa, and tongue free from lesions. Gums without inflammation. Posterior pharynx no injection, no exudate, no tonsillar hypertrophy. Neck: Neck supple, no lymphadenopathy; thyroid without mass or tenderness. Chest: normally shaped, equal expansion with breaths. Lungs: Lungs clear to auscultation and percussion. No crackles or wheezes. Heart: RRR without murmur, gallop, or rubs. S1 and S2 normal. Abd: rounded, soft., bowel sounds active throughout. No pulsatile masses. Mildlyender suprapubic. No rebound, guarding, or peritoneal signs. No masses. No organomegaly. Hamilton's punch: negative. No flank pain. No inguinal or axillary lymphadenopathy. ASSESSMENT/PLAN: 1. Urinary frequency - ICD9: 788.41, ICD10: R35.0 (primary diagnosis) acute - Send urine for culture - Patient education for prevention given: poush fluids - URINALYSIS WITH MICROSCOPIC - URINE CULTURE - UA DIP B/O 2. Abnormal urine - ICD9: 791.9, ICD10: R82.90 - CIPROFLOXACIN 500 MG TABLET - FLUCONAZOLE 100 MG TABLET - ONDANSETRON 4 MG DISINTEGRATING TABLET - UA DIP B/O 3. Bronchitis - ICD9: 490, ICD10: J40 Education regarding usual course. DM2 uncontrolled: would rather not do steroids. Will start inhaled. F/u if not improving in 10 days. - CIPROFLOXACIN 500 MG TABLET - FLUTICASONE 44 MCG/ACTUATION HFA AEROSOL INHALER 4. Chronic depression - ICD9: 311, ICD10: F32.9 Will address after illness improves. F/u in 4 weeks. Yasmany Holland PA-C CNOV Observed: 02/11/2018 Status: COMPLETED Source: [place] 8:20 AM [facility] REPOSITORY Office Visit (FAMPWS) IVET VALERO ([id number]) 1955 F Date Time Provider Department 02/11/18 8:20 AM Yasmany HOLLAND) FAMPWS During your visit today, we recorded the following information about you: Temperature Pulse Respiration Blood pressure 98.6 degrees 88/minute 20/minute 144/88 Weight 94.8 kg Yasmany Holland PA-C 02/11/2018 1:08 PM Signed 62 year old female with c/o 1. Possible UTI: increased urinary frequency with cramping in low abdomen over last 10 days. Occasional discomfort. Blood sugar 380s since sick. T102F 2 nights ago. No fever since. Nauseated but no vomiting. occasional low left back pain. 2. Has had URI sx over 2 weeks which stared with sinus drainage, pressure, chest heaviness, cough productive thick green. A little wheeze on occasion when laying down. Upper chest is sore with coughing. A little SOB. 3. DM2 uncontrolled. Seeing Chilango Castorena at [facility]. Has adjusted meds and following. 4/. High PSQ score. Acknowledges feeling low but feels r/t health issues. No energy. Low interest. No hope for change. No thoughts of hurting self. 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 - Depressive disorder, not elsewhere classified - DM (diabetes mellitus) ([facility]) - Fibromyalgia - Migraine with aura, without mention of intractable migraine without mention of status migrainosus - Panic disorder without agoraphobia had hx of failed urine screen - Recurrent UTI - Tobacco use disorder PAST SURGICAL HISTORY Procedure Laterality Date - CHOLECYSTECTOMY - EGD W/O OR W/BRUSH/WASH 12/06/2015 EGD - LIGATE FALLOPIAN TUBE Tubal ligation - PAST SURGICAL HISTORY OF Left 03/2014 ANKLE FRACTURE REPAIR - S SLING BLADDER 2012 AND - TOTAL ABDOM HYSTERECTOMY Hysterectomy, REJI Social History Marital status: Spouse name: Years of education: Number of children: 3 Social History Main Topics Smoking status: Current Every Day Smoker Packs/day: 1.00 Years: 40.00 Types: Cigarettes Smokeless tobacco: Never Used Comment: Pt has cut back to 3 cigarettes daily. Alcohol use: No Drug use: No ACTIVE PROBLEM LIST Tobacco Use Disorder Degeneration of Cervical Intervertebral Disc Chronic Bronchitis (Hcc) Depressive Disorder, Not Elsewhere Classified Persistent Disorder of Initiating Or Maintaining Sleep Migraine With Aura, Without Mention of Intractable Migraine Without Mention of Status Migrainosus Panic Disorder Without Agoraphobia Fibromyalgia History of Recurrent Utis Dm (Diabetes Mellitus) (Hcc) Secondary Polycythemia Current Outpatient Prescriptions: ibuprofen (MOTRIN) 800 mg tablet Take 1 tablet by mouth every 8 hours as needed (FOR PAIN. TAKE WITH FOOD). Disp: 20 tablet Rfl: 1 cyclobenzaprine (FLEXERIL) 10 mg tablet Take 1 tablet by mouth three times daily as needed. Disp: 30 tablet Rfl: 0 promethazine (PHENERGAN) 25 mg tablet Take 1 tablet by mouth every 6 hours as needed. Disp: 42 tablet Rfl: 1 promethazine (PHENERGAN) 25 mg suppository 1 Suppository by RECTAL route every 6 hours as needed. Disp: 12 Suppository Rfl: 0 repaglinide (PRANDIN) 2 mg tablet Take 2 mg by mouth once daily. Disp: Rfl: DULoxetine (CYMBALTA) 30 mg capsule Take 1 capsule by mouth once daily. Disp: 60 capsule Rfl: 0 fluticasone (FLONASE) 50 mcg/actuation nasal spray Use 2 Sprays in each nostril once daily. Rinse mouth after use. Disp: 1 Bottle Rfl: 11 amitriptyline (ELAVIL) 25 mg tablet Take 1 tablet by mouth daily at bedtime. Disp: 30 tablet Rfl: 5 pregabalin (LYRICA) 150 mg capsule Take 1 capsule by mouth three times daily for 90 days. Disp: 90 capsule Rfl: 2 insulin glargine (TOUJEO) 300 unit/mL (1.5 mL) inpn Inject 22 Units subcutaneously every morning. E11.9 (Patient taking differently: Inject 40-45 Units subcutaneously every morning. E11.9 ) Disp: 3 Pen Rfl: 5 omeprazole (PRILOSEC) 20 mg capsule Take 2 capsules by mouth daily before breakfast. Disp: 60 capsule Rfl: 3 DULoxetine (CYMBALTA) 60 mg capsule TAKE TWO CAPSULES BY MOUTH ONCE DAILY Disp: Rfl: 0 albuterol HFA (VENTOLIN HFA) 90 mcg/actuation inhaler Inhale 2 Puffs as instructed every 4 hours as needed. Disp: 1 Inhaler Rfl: 0 LORazepam (ATIVAN) 0.5 mg tab Take 0.5 mg by mouth twice daily as needed. Disp: Rfl: 2 albuterol (PROVENTIL) 2.5 mg /3 mL (0.083 %) nebulizer solution Use 2.5 mg via nebulizer every 4 hours as needed for Wheezing/Shortness of Breath. Disp: Rfl: nystatin (MYCOSTATIN) cream Apply 1 application to affected area twice daily. Disp: 45 g Rfl: 0 Blood-Glucose Meter (BLOOD GLUCOSE MONITORING) monitoring kit 1 Each as needed. E11.9 Disp: 1 Each Rfl: 0 blood sugar diagnostic (BLOOD GLUCOSE TEST) test strip Test blood sugar twice daily. E11.9 Disp: 50 Strip Rfl: 3 Insulin Sellers, Disposable, 32 gauge x 5/16 ndle Use once daily with insulin Disp: 100 Each Rfl: 3 Lancets lancets Check blood sugar twice daily Disp: 100 Each Rfl: 3 No current facility-administered medications for this visit. ONE PNEUMOVAX PRIOR TO AGE 65 due on 1973 DTAP,TDAP,TD(1 - Tdap) due on 1976 MAMMOGRAM due on 1997 COLORECTAL CANCER SCREENING,SEE MODIFIER due on 2007 ZOSTER VACCINE (SHINGRIX)(1 of 2) due on 2007 DILATED RETINAL EXAM due on 04/12/2017 URINE ALBUMIN CREATININE RATIO due on 09/19/2017 HBA1C due on 03/10/2018 EXAM: OBJECTIVE: BP 144/88 Pulse 88 Temp 37 ?C (98.6 ?F) (Tympanic) Resp 20 Wt 94.8 kg (209 lb) SpO2 97% BMI 33.23 kg/m? General appearance: Pleasant overweight adult woman in no acute distress with depressed affect. Speaking in full sentences. Harsh cough noted. Respirations: regular, unlabored Color: pink to lips and nailbeds, normal turgor Skin: warm, dry, no unusual rashes or lesions Head: Normocephalic Eyes: sclerae and conjunctivae without injection or exudate, PERRLA, EOMI, corneal light reflex symmetric bilaterally Ears: TM's are clear/ enamorado bilaterally with normal landmarks, no swelling or deformity ear canal or external ear Nose/Sinuses: Nose patent. No turbinate swelling. Active exudate: none. Maxillary and frontal sinuses nontender to percussion. Oropharynx: oral membranes are moist. Lips, mucosa, and tongue free from lesions. Gums without inflammation. Posterior pharynx no injection, no exudate, no tonsillar hypertrophy. Neck: Neck supple, no lymphadenopathy; thyroid without mass or tenderness. Chest: normally shaped, equal expansion with breaths. Lungs: Lungs clear to auscultation and percussion. No crackles or wheezes. Heart: RRR without murmur, gallop, or rubs. S1 and S2 normal. Abd: rounded, soft., bowel sounds active throughout. No pulsatile masses. Mildlyender suprapubic. No rebound, guarding, or peritoneal signs. No masses. No organomegaly. Hamilton's punch: negative. No flank pain. No inguinal or axillary lymphadenopathy. ASSESSMENT/PLAN: 1. Urinary frequency - ICD9: 788.41, ICD10: R35.0 (primary diagnosis) acute - Send urine for culture - Patient education for prevention given: poush fluids - URINALYSIS WITH MICROSCOPIC - URINE CULTURE - UA DIP B/O 2. Abnormal urine - ICD9: 791.9, ICD10: R82.90 - CIPROFLOXACIN 500 MG TABLET - FLUCONAZOLE 100 MG TABLET - ONDANSETRON 4 MG DISINTEGRATING TABLET - UA DIP B/O 3. Bronchitis - ICD9: 490, ICD10: J40 Education regarding usual course. DM2 uncontrolled: would rather not do steroids. Will start inhaled. F/u if not improving in 10 days. - CIPROFLOXACIN 500 MG TABLET - FLUTICASONE 44 MCG/ACTUATION HFA AEROSOL INHALER 4. Chronic depression - ICD9: 311, ICD10: F32.9 Will address after illness improves. F/u in 4 weeks. LAMONT Mead PA-C 02/11/2018 9:07 AM Signed Acute Bronchitis What is acute bronchitis? Acute bronchitis is an infection of the bronchial (say: ?kndqr-rfu-vhm?) tree. The bronchial tree is made up of the tubes that carry air into your lungs. When these tubes get infected, they swell and mucus (thick fluid) forms inside them. This makes it hard for you to breathe. You may cough up mucus and wheeze (make a whistling sound when you breathe). What causes acute bronchitis? Acute bronchitis is almost always caused by viruses that attack the lining of the bronchial tree and cause infection. As your body fights back against these viruses, more swelling occurs and more mucus is made. It takes time for your body to kill the viruses and heal the damage to your bronchial tubes. In most cases, the same viruses that cause colds cause acute bronchitis. Research has shown that bacterial infection is a much less common cause of bronchitis than we used to think. Very rarely, an infection caused by a fungus can cause acute bronchitis. How do people get acute bronchitis? The viruses that cause acute bronchitis are sprayed into the air or onto people?s hands when they cough. You can get acute bronchitis if you breathe in these viruses. You can also get it if you touch a hand that is coated with the viruses. If you smoke or are around damaging fumes (such as those in certain kinds of factories), you are more likely to get acute bronchitis and to have it longer. This is because your bronchial tree is already damaged. How is acute bronchitis treated? Most cases of acute bronchitis will go away on their own after a few days or a week. It's a good idea to get plenty of rest, drink lots of noncaffeinated fluids (for example, water and fruit juices) and increase the humidity in your environment. Because acute bronchitis is usually caused by viruses, antibiotics (medicines that kill bacteria) usually do not help. Even if you cough up mucus that is colored or thick, antibiotics probably won?t help you get better any faster. If you smoke, you should cut down on the number of cigarettes you smoke, or stop smoking altogether. This will help your bronchial tree heal faster. For some people with acute bronchitis, doctors prescribe medicines that are usually used to treat asthma. These medicines can help open the bronchial tubes and clear out mucus. They are usually given with an inhaler. An inhaler sprays the medicine right into the bronchial tree. Your doctor will decide if this treatment is right for you. How long will the cough from acute bronchitis last? You should call your doctor if: You continue to wheeze and cough for more than 2 weeks, especially at night or when you are active. You continue to cough for more than 2 weeks and sometimes have a bad-tasting fluid come up into your mouth. You have a cough, you feel very sick and weak, and you have a high fever that doesn?t go down. You cough up blood. You have trouble breathing when you lie down. Your feet swell. Sometimes the cough from acute bronchitis lasts for several weeks or months. Usually this happens because the bronchial tree is taking a long time to heal. However, a cough that doesn?t go away may be a sign of another problem, like asthma or pneumonia. How can I keep from getting acute bronchitis again? One of the best ways to keep from getting acute bronchitis is to wash your hands often to get rid of any viruses. If you smoke, the best defense against acute bronchitis is to quit. Smoking damages your bronchial tree and makes it easier for viruses to cause infection. Smoking also slows down the healing, so it takes longer for you to get well. Flovent as directed. This is a steroid inhaler which takes a few days to be maximally effective. Wash the mouth piece after each use. If you have soreness in your tongue or throat or rash appears in these areas, come in for examination. Cipro as directed. If you should breakout in a rash, stop the medicine and call the office. Any antibiotic has the potential to cause diarrhea due to alteration in the normal bacterial dante of the gut. This can be reduced by eating yogurt with active cultures daily while on the medication. If diarrhea becomes severe (watery, large volumes or more than 3-4/day) call the office. If you do not like yogurt, ask the pharmacist for a probiotic supplement such as lactobacillus or acidophillus. Women may experience yeast vaginitis due to alteration in the vaginal dante. Symptoms include vaginal itching, irritation, and often a clumpy white discharge. If this occurs, there are several effective over the counter remedies available, including one-dose treatments. If these are unsuccessful, call the office. Antibiotics may interfer with control. If you are on oral contraceptives, use another form of protection (condoms, foams, jellies, diaphragm) throught the end of whatever pill pack you are on in 10 days. Reviewed/Updated: 08/30 Created: 12/23 This handout provides a general overview on this topic and may not apply to everyone. To find out if this handout applies to you and to get more information on this subject, talk to your family doctor. Copyright ? 2843-2968 [employer] Permission is granted to print and photocopy this material for nonprofit educational uses. Written permission is required for all other uses, including electronic uses. Force fluids with water and juices (not caffeine) to 2000cc per day until symptoms improve. Any mechanical pressure in the area of the urethra (wear urine comes out) may cause bacteria to be pushed up inside the bladder. You should urinate to clear out bacterial contamination before and after sex, after tampon insertion, or after washing the vaginal area. It is important to wipe front to back after voiding. If you develop a fever, chills, unusual back pain, or vomiting, this may mean you have infection in the kidney which can be more serious. If this occurs, or you fail to improve on the antibiotics in 3 days, either call the office to be checked or go to the emergency department. Take Cipro as directed per prescription If you should breakout in a rash, stop the medicine and call the office. Any antibiotic has the potential to cause diarrhea due to alteration in the normal bacterial dante of the gut. This can be reduced by eating yogurt with active cultures daily while on the medication. If diarrhea becomes severe (watery, large volumes or more than 3-4/day) call the office. While on antibiotics women may experience yeast vaginitis due to alteration in the vaginal dante. Symptoms include vaginal itching, irritation, and often a clumpy white discharge. If this occurs, there are several effective over the counter remedies available, including one-dose treatments. If these are unsuccessful, call the office. Antibiotics may interfere with control. If you are on oral contraceptives, use another form of protection (condoms, foams, jellies, diaphragm) throught the end of whatever pill pack you are on when you finish the antibiotic. Referring Provider: SELF [[id number]] Allergies As of Date: 02/11/2018 Noted Allergy Reaction PENICILLINS 05/25/2008 4 - Hives SULFA (SULFONAMIDE ANTIBIOTICS) 09/19/2016 2 - Rash 14 - Other: See Comments Comments: Blisters and sore in throat Date Reviewed: 02/11/2018 Reviewed by: Lavonne Kasper LPN - Fully Assessed Reason for Visit: UTI [116] Cmt: burning and abdominal pain with cramps. off and on for about 2 weeks Cough [28] Cmt: moist to dry sounding productive cough. Fatigue for about 2 weeks Primary Visit Diagnosis:Urinary frequency [R35.0] Other Visit Diagnoses:Abnormal urine [R82.90] Bronchitis [J40] Chronic depression [F32.9] Order(s):URINALYSIS WITH MICROSCOPIC [SQUAWMIC] Order #: [id number]. #:[id number] URINE CULTURE [SQURCUL] Order #: [id number] ciprofloxacin HCl (CIPRO) 500 mg tabletTake 1 tablet by mouth twice daily for 7 days.Disp: 20 tabletRfl: 0 fluticasone (FLOVENT) 44 mcg/actuation inhalerInhale 2 Puffs as instructed twice daily.Disp: 1 InhalerRfl: 1 fluconazole (DIFLUCAN) 100 mg tabletOne tab PO in 3 days and then again at 7 daysDisp: 2 tabletRfl: 0 ondansetron orally disintegrating (ZOFRAN ODT) 4 mg disintegrating tabletTake 1 tablet by mouth every 6 hours as needed for Nausea/Vomiting.Disp: 6 tabletRfl: 1 UA DIP B/O [[id number]] Order #: [id number] Prescriptions as of 02/11/2018 Sig: IBUPROFEN 800 MG TABLET Take 1 tablet by mouth every * CYCLOBENZAPRINE 10 MG TABLET Take 1 tablet by mouth three * PROMETHAZINE 25 MG TABLET Take 1 tablet by mouth every * PROMETHAZINE 25 MG RECTAL SUP* 1 Suppository by RECTAL route* REPAGLINIDE 2 MG TABLET Take 2 mg by mouth once daily. DULOXETINE 30 MG CAPSULE,LESIA* Take 1 capsule by mouth once * FLUTICASONE 50 MCG/ACTUATION * Use 2 Sprays in each nostril * AMITRIPTYLINE 25 MG TABLET Take 1 tablet by mouth daily * PREGABALIN 150 MG CAPSULE Take 1 capsule by mouth three* INSULIN GLARGINE (U-300) 300 * Inject 22 Units subcutaneousl* Patient taking differently: Inject 40-45 Units subcutaneo* OMEPRAZOLE 20 MG CAPSULE,LESIA* Take 2 capsules by mouth amber* DULOXETINE 60 MG CAPSULE,LESIA* TAKE TWO CAPSULES BY MOUTH ON* ALBUTEROL SULFATE HFA 90 MCG/* Inhale 2 Puffs as instructed * LORAZEPAM 0.5 MG TABLET Take 0.5 mg by mouth twice da* ALBUTEROL SULFATE 2.5 MG/3 ML* Use 2.5 mg via nebulizer ever* NYSTATIN 100,000 UNIT/GRAM TO* Apply 1 application to affect* CIPROFLOXACIN 500 MG TABLET Take 1 tablet by mouth twice * FLUTICASONE 44 MCG/ACTUATION * Inhale 2 Puffs as instructed * FLUCONAZOLE 100 MG TABLET One tab PO in 3 days and then* ONDANSETRON 4 MG DISINTEGRATI* Take 1 tablet by mouth every * BLOOD-GLUCOSE METER KIT 1 Each as needed. E11.9 BLOOD SUGAR DIAGNOSTIC STRIPS Test blood sugar twice daily.* PEN NEEDLE, DIABETIC 32 GAUGE* Use once daily with insulin LANCETS Check blood sugar twice daily Problem List As Of Date 02/11/2018 Noted Resolved TOBACCO USE DISORDER [F17.200] CERVICAL DISC DEGEN [M50.30] More... Chronic bronchitis (HCC) [J42] DEPRESSIVE DISORDER NEC [F32.9] PERSISTENT INSOMNIA [G47.00] INVALID FOR* MGRN W [facility] MGRN [G43.109] PANIC DISORDER WITHOUT AGORAPHOBIA [F41.0] Fibromyalgia [M79.7] History of recurrent UTIs [Z87.440] INVALID FOR* DM (diabetes mellitus) (HCC) [E11.9] Secondary polycythemia [D75.1] INVALID FOR* Other instructions from your clinician: Acute Bronchitis What is acute bronchitis? Acute bronchitis is an infection of the bronchial (say: ?yfbyr-twh-gsf?) tree. The bronchial tree is made up of the tubes that carry air into your lungs. When these tubes get infected, they swell and mucus (thick fluid) forms inside them. This makes it hard for you to breathe. You may cough up mucus and wheeze (make a whistling sound when you breathe). What causes acute bronchitis? Acute bronchitis is almost always caused by viruses that attack the lining of the bronchial tree and cause infection. As your body fights back against these viruses, more swelling occurs and more mucus is made. It takes time for your body to kill the viruses and heal the damage to your bronchial tubes. In most cases, the same viruses that cause colds cause acute bronchitis. Research has shown that bacterial infection is a much less common cause of bronchitis than we used to think. Very rarely, an infection caused by a fungus can cause acute bronchitis. How do people get acute bronchitis? The viruses that cause acute bronchitis are sprayed into the air or onto people?s hands when they cough. You can get acute bronchitis if you breathe in these viruses. You can also get it if you touch a hand that is coated with the viruses. If you smoke or are around damaging fumes (such as those in certain kinds of factories), you are more likely to get acute bronchitis and to have it longer. This is because your bronchial tree is already damaged. How is acute bronchitis treated? Most cases of acute bronchitis will go away on their own after a few days or a week. It's a good idea to get plenty of rest, drink lots of noncaffeinated fluids (for example, water and fruit juices) and increase the humidity in your environment. Because acute bronchitis is usually caused by viruses, antibiotics (medicines that kill bacteria) usually do not help. Even if you cough up mucus that is colored or thick, antibiotics probably won?t help you get better any faster. If you smoke, you should cut down on the number of cigarettes you smoke, or stop smoking altogether. This will help your bronchial tree heal faster. For some people with acute bronchitis, doctors prescribe medicines that are usually used to treat asthma. These medicines can help open the bronchial tubes and clear out mucus. They are usually given with an inhaler. An inhaler sprays the medicine right into the bronchial tree. Your doctor will decide if this treatment is right for you. How long will the cough from acute bronchitis last? You should call your doctor if: You continue to wheeze and cough for more than 2 weeks, especially at night or when you are active. You continue to cough for more than 2 weeks and sometimes have a bad-tasting fluid come up into your mouth. You have a cough, you feel very sick and weak, and you have a high fever that doesn?t go down. You cough up blood. You have trouble breathing when you lie down. Your feet swell. Sometimes the cough from acute bronchitis lasts for several weeks or months. Usually this happens because the bronchial tree is taking a long time to heal. However, a cough that doesn?t go away may be a sign of another problem, like asthma or pneumonia. How can I keep from getting acute bronchitis again? One of the best ways to keep from getting acute bronchitis is to wash your hands often to get rid of any viruses. If you smoke, the best defense against acute bronchitis is to quit. Smoking damages your bronchial tree and makes it easier for viruses to cause infection. Smoking also slows down the healing, so it takes longer for you to get well. Flovent as directed. This is a steroid inhaler which takes a few days to be maximally effective. Wash the mouth piece after each use. If you have soreness in your tongue or throat or rash appears in these areas, come in for examination. Cipro as directed. If you should breakout in a rash, stop the medicine and call the office. Any antibiotic has the potential to cause diarrhea due to alteration in the normal bacterial dante of the gut. This can be reduced by eating yogurt with active cultures daily while on the medication. If diarrhea becomes severe (watery, large volumes or more than 3-4/day) call the office. If you do not like yogurt, ask the pharmacist for a probiotic supplement such as lactobacillus or acidophillus. Women may experience yeast vaginitis due to alteration in the vaginal dante. Symptoms include vaginal itching, irritation, and often a clumpy white discharge. If this occurs, there are several effective over the counter remedies available, including one-dose treatments. If these are unsuccessful, call the office. Antibiotics may interfer with control. If you are on oral contraceptives, use another form of protection (condoms, foams, jellies, diaphragm) throught the end of whatever pill pack you are on in 10 days. Reviewed/Updated: 08/30 Created: 12/23 This handout provides a general overview on this topic and may not apply to everyone. To find out if this handout applies to you and to get more information on this subject, talk to your family doctor. Copyright ? [id number] [employer] Permission is granted to print and photocopy this material for nonprofit educational uses. Written permission is required for all other uses, including electronic uses. Force fluids with water and juices (not caffeine) to 2000cc per day until symptoms improve. Any mechanical pressure in the area of the urethra (wear urine comes out) may cause bacteria to be pushed up inside the bladder. You should urinate to clear out bacterial contamination before and after sex, after tampon insertion, or after washing the vaginal area. It is important to wipe front to back after voiding. If you develop a fever, chills, unusual back pain, or vomiting, this may mean you have infection in the kidney which can be more serious. If this occurs, or you fail to improve on the antibiotics in 3 days, either call the office to be checked or go to the emergency department. Take Cipro as directed per prescription If you should breakout in a rash, stop the medicine and call the office. Any antibiotic has the potential to cause diarrhea due to alteration in the normal bacterial dante of the gut. This can be reduced by eating yogurt with active cultures daily while on the medication. If diarrhea becomes severe (watery, large volumes or more than 3-4/day) call the office. While on antibiotics women may experience yeast vaginitis due to alteration in the vaginal dante. Symptoms include vaginal itching, irritation, and often a clumpy white discharge. If this occurs, there are several effective over the counter remedies available, including one-dose treatments. If these are unsuccessful, call the office. Antibiotics may interfere with control. If you are on oral contraceptives, use another form of protection (condoms, foams, jellies, diaphragm) throught the end of whatever pill pack you are on when you finish the antibiotic. Prescriptions ordered this encounter Disp Refills Start End CIPROFLOXACIN 500 MG TABLET 20 t* 0 02/11/2018 02/18/2018 Route: ORAL Sig: Take 1 tablet by mouth twice daily for 7 days. FLUTICASONE 44 MCG/ACTUATION HFA AER* 1 In* 1 02/11/2018 Route: INHALATION Sig: Inhale 2 Puffs as instructed twice daily. FLUCONAZOLE 100 MG TABLET 2 ta* 0 02/11/2018 Sig: One tab PO in 3 days and then again at 7 days ONDANSETRON 4 MG DISINTEGRATING TABL* 6 ta* 1 02/11/2018 Route: ORAL Sig: Take 1 tablet by mouth every 6 hours as needed for Nausea/Vomiting. Encounter Status:Closed by Yasmany HOLLAND PA-C on 02/11/18 PROGRESS Observed: 01/06/2018 Status: COMPLETED Source: [place] 9:39 AM [facility] HNO ID: [id number] Author: Yasmany Alexis (Lamont) Skyler Service: (none) Author Type: Physician Firer [employer]n Type: Progress Notes Filed: 01/06/2018 10:44 AM Note Text: 62 year old female with c/o left ear ache over last 5-6 days. Started with tender lymph node and sinus drainage which was clearing up when this occurred. Has some allergy history: controlled with flonase, saline. No fever. No hearing loss. Smoker: 8-10 cigs/ day. Hasn't been taking Cymbalta. No ill contacts. Under a lot of stress: grandchildren living in home. . Financial and health issues. No thoughts or hurting self or others. Stopped cymbalta due to nausea, did not taper. Off last 4-months Seeing counselor. Sees [facility] for DM2, uncontrolled. 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 - Depressive disorder, not elsewhere classified - DM (diabetes mellitus) (HCC) - Fibromyalgia - Migraine with aura, without mention of intractable migraine without mention of status migrainosus - Panic disorder without agoraphobia had hx of failed urine screen - Recurrent UTI - Tobacco use disorder PAST SURGICAL HISTORY Procedure Laterality Date - CHOLECYSTECTOMY - EGD W/O OR W/BRUSH/WASH 12/06/2015 EGD - LIGATE FALLOPIAN TUBE Tubal ligation - PAST SURGICAL HISTORY OF Left 03/2014 ANKLE FRACTURE REPAIR - S SLING BLADDER 2012 AND - TOTAL ABDOM HYSTERECTOMY Hysterectomy, REJI Social History Marital status: Spouse name: Years of education: Number of children: 3 Social History Main Topics Smoking status: Current Every Day Smoker Packs/day: 1.00 Years: 40.00 Types: Cigarettes Smokeless tobacco: Never Used Comment: Pt has cut back to 3 cigarettes daily. Alcohol use: No Drug use: No ACTIVE PROBLEM LIST Tobacco Use Disorder Degeneration of Cervical Intervertebral Disc Chronic Bronchitis (Hcc) Depressive Disorder, Not Elsewhere Classified Persistent Disorder of Initiating Or Maintaining Sleep Migraine With Aura, Without Mention of Intractable Migraine Without Mention of Status Migrainosus Panic Disorder Without Agoraphobia Fibromyalgia History of Recurrent Utis Dm (Diabetes Mellitus) (Hcc) Secondary Polycythemia Current Outpatient Prescriptions: repaglinide (PRANDIN) 2 mg tablet Take 2 mg by mouth once daily. Disp: Rfl: promethazine (PHENERGAN) 25 mg suppository 1 Suppository by RECTAL route every 6 hours as needed. Disp: 12 Suppository Rfl: 0 promethazine (PHENERGAN) 25 mg tablet Take 1 tablet by mouth every 6 hours as needed. Disp: 42 tablet Rfl: 1 fluticasone (FLONASE) 50 mcg/actuation nasal spray Use 2 Sprays in each nostril once daily. Rinse mouth after use. Disp: 1 Bottle Rfl: 11 amitriptyline (ELAVIL) 25 mg tablet Take 1 tablet by mouth daily at bedtime. Disp: 30 tablet Rfl: 5 pregabalin (LYRICA) 150 mg capsule Take 1 capsule by mouth three times daily for 90 days. Disp: 90 capsule Rfl: 2 insulin glargine (TOUJEO) 300 unit/mL (1.5 mL) inpn Inject 22 Units subcutaneously every morning. E11.9 Disp: 3 Pen Rfl: 5 omeprazole (PRILOSEC) 20 mg capsule Take 2 capsules by mouth daily before breakfast. Disp: 60 capsule Rfl: 3 DULoxetine (CYMBALTA) 60 mg capsule TAKE TWO CAPSULES BY MOUTH ONCE DAILY Disp: Rfl: 0 Blood-Glucose Meter (BLOOD GLUCOSE MONITORING) monitoring kit 1 Each as needed. E11.9 Disp: 1 Each Rfl: 0 blood sugar diagnostic (BLOOD GLUCOSE TEST) test strip Test blood sugar twice daily. E11.9 Disp: 50 Strip Rfl: 3 albuterol HFA (VENTOLIN HFA) 90 mcg/actuation inhaler Inhale 2 Puffs as instructed every 4 hours as needed. Disp: 1 Inhaler Rfl: 0 Insulin Sellers, Disposable, 32 gauge x 5/16 ndle Use once daily with insulin Disp: 100 Each Rfl: 3 LORazepam (ATIVAN) 0.5 mg tab Take 0.5 mg by mouth twice daily as needed. Disp: Rfl: 2 Lancets lancets Check blood sugar twice daily Disp: 100 Each Rfl: 3 albuterol (PROVENTIL) 2.5 mg /3 mL (0.083 %) nebulizer solution Use 2.5 mg via nebulizer every 4 hours as needed for Wheezing/Shortness of Breath. Disp: Rfl: nystatin (MYCOSTATIN) cream Apply 1 application to affected area twice daily. Disp: 45 g Rfl: 0 No current facility-administered medications for this visit. ONE PNEUMOVAX PRIOR TO AGE 67 due on 1973 DTAP,TDAP,TD(1 - Tdap) due on 1976 MAMMOGRAM due on 1997 COLORECTAL CANCER SCREENING,SEE MODIFIER due on 2007 DILATED RETINAL EXAM due on 04/12/2017 URINE ALBUMIN CREATININE RATIO due on 09/19/2017 EXAM: OBJECTIVE: BP 122/70 (BP Site: Right Arm, BP Position: Sitting, BP Cuff Size: Large Adult) Pulse 96 Temp 36.5 ?C (97.7 ?F) (Tympanic) Resp 18 Wt 89.8 kg (198 lb) BMI 31.48 kg/m? General appearance: Pleasant adult woman in no acute distres though demonstrating pain. Holding left jaw rafy. No congestion or cough. Respirations: regular, unlabored, no retractions. Color: pink to lips and nailbeds, normal turgor Skin: warm, dry, no unusual rashes or lesions Head: Normocephalic Eyes: sclerae and conjunctivae without injection or exudate, PERRLA, EOMI, corneal light reflex symmetric bilaterally Ears: TM's are clear/ enamorado bilaterally with normal landmarks, no swelling or deformity ear canal or external ear Nose/Sinuses: Nose patent. No turbinate swelling. Active exudate: none. Maxillary and frontal sinuses nontender to percussion. Oropharynx: oral membranes are moist. Lips, mucosa, and tongue free from lesions. Gums without inflammation. Posterior pharynx no injection, no exudate, no tonsillar hypertrophy. Neck: Neck supple, small tender left node subtonsillar, no other lymphadenopathy; thyroid without mass or tenderness. + TMJ and lateral neck trigger point on left. Chest: normally shaped, equal expansion with breaths. Lungs: Lungs clear to auscultation and percussion. No crackles or wheezes. Heart: RRR without murmur, gallop, or rubs. S1 and S2 normal. OMT: myofascial release to TMJ and cervical attachments with marked improvement. ASSESSMENT/PLAN: 1. TMJ syndrome - ICD9: 524.69, ICD10: M26.629 (primary diagnosis) TMJ precautions with myofascial release techniques reviewed - CYCLOBENZAPRINE 10 MG TABLET 2. Type 2 diabetes mellitus without complication, without long-term current use of insulin (HCC) - ICD9: 250.00, ICD10: E11.9 uncontrolled - following with TAE roa 3. Left ear pain - ICD9: 388.70, ICD10: H92.02 Suspect r/t TMJ and tender lymph node 4. Tobacco use disorder - ICD9: 305.1, ICD10: F17.200 - Cessation encouraged. - Physiologic and physical aspects of tobacco addiction as well as strategies for quitting were discussed. - Counseling was given focusing on the harmful effects of this addiction especially given the patient's medical condition(s) which will be worsened because of the chemicals in tobacco. 5. Anxiety and depression - ICD9: 300.00, 311, ICD10: F41.9, F32.9 Off cymbalta resume. Start 30mg BID and in 1 month increase to 60mg BID LAMONT Mead Observed: 01/06/2018 Status: COMPLETED Source: [place] 9:20 AM [facility] REPOSITORY [facility] KMEIVET K ([id number]) 1955 F Date Time Provider Department 01/06/18 9:20 AM Yasmany HOLLAND) LAURENCE During your visit today, we recorded the following information about you: Temperature Pulse Respiration Blood pressure 97.7 degrees 96/minute 18/minute 122/70 Weight 89.8 kg M Reuben Holland PA-C 01/06/2018 10:44 AM Signed 62 year old female with c/o left ear ache over last 5-6 days. Started with tender lymph node and sinus drainage which was clearing up when this occurred. Has some allergy history: controlled with flonase, saline. No fever. No hearing loss. Smoker: 8-10 cigs/ day. Hasn't been taking Cymbalta. No ill contacts. Under a lot of stress: grandchildren living in home. . Financial and health issues. No thoughts or hurting self or others. Stopped cymbalta due to nausea, did not taper. Off last 4-months Seeing counselor. Sees TAE Mejia for DM2, uncontrolled. 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 - Depressive disorder, not elsewhere classified - DM (diabetes mellitus) (HCC) - Fibromyalgia - Migraine with aura, without mention of intractable migraine without mention of status migrainosus - Panic disorder without agoraphobia had hx of failed urine screen - Recurrent UTI - Tobacco use disorder PAST SURGICAL HISTORY Procedure Laterality Date - CHOLECYSTECTOMY - EGD W/O OR W/BRUSH/WASH 12/06/2015 EGD - LIGATE FALLOPIAN TUBE Tubal ligation - PAST SURGICAL HISTORY OF Left 03/2014 ANKLE FRACTURE REPAIR - S SLING BLADDER 2012 AND - TOTAL ABDOM HYSTERECTOMY Hysterectomy, REJI Social History Marital status: Spouse name: Years of education: Number of children: 3 Social History Main Topics Smoking status: Current Every Day Smoker Packs/day: 1.00 Years: 40.00 Types: Cigarettes Smokeless tobacco: Never Used Comment: Pt has cut back to 3 cigarettes daily. Alcohol use: No Drug use: No ACTIVE PROBLEM LIST Tobacco Use Disorder Degeneration of Cervical Intervertebral Disc Chronic Bronchitis (Hcc) Depressive Disorder, Not Elsewhere Classified Persistent Disorder of Initiating Or Maintaining Sleep Migraine With Aura, Without Mention of Intractable Migraine Without Mention of Status Migrainosus Panic Disorder Without Agoraphobia Fibromyalgia History of Recurrent Utis Dm (Diabetes Mellitus) (Hcc) Secondary Polycythemia Current Outpatient Prescriptions: repaglinide (PRANDIN) 2 mg tablet Take 2 mg by mouth once daily. Disp: Rfl: promethazine (PHENERGAN) 25 mg suppository 1 Suppository by RECTAL route every 6 hours as needed. Disp: 12 Suppository Rfl: 0 promethazine (PHENERGAN) 25 mg tablet Take 1 tablet by mouth every 6 hours as needed. Disp: 42 tablet Rfl: 1 fluticasone (FLONASE) 50 mcg/actuation nasal spray Use 2 Sprays in each nostril once daily. Rinse mouth after use. Disp: 1 Bottle Rfl: 11 amitriptyline (ELAVIL) 25 mg tablet Take 1 tablet by mouth daily at bedtime. Disp: 30 tablet Rfl: 5 pregabalin (LYRICA) 150 mg capsule Take 1 capsule by mouth three times daily for 90 days. Disp: 90 capsule Rfl: 2 insulin glargine (TOUJEO) 300 unit/mL (1.5 mL) inpn Inject 22 Units subcutaneously every morning. E11.9 Disp: 3 Pen Rfl: 5 omeprazole (PRILOSEC) 20 mg capsule Take 2 capsules by mouth daily before breakfast. Disp: 60 capsule Rfl: 3 DULoxetine (CYMBALTA) 60 mg capsule TAKE TWO CAPSULES BY MOUTH ONCE DAILY Disp: Rfl: 0 Blood-Glucose Meter (BLOOD GLUCOSE MONITORING) monitoring kit 1 Each as needed. E11.9 Disp: 1 Each Rfl: 0 blood sugar diagnostic (BLOOD GLUCOSE TEST) test strip Test blood sugar twice daily. E11.9 Disp: 50 Strip Rfl: 3 albuterol HFA (VENTOLIN HFA) 90 mcg/actuation inhaler Inhale 2 Puffs as instructed every 4 hours as needed. Disp: 1 Inhaler Rfl: 0 Insulin Sellers, Disposable, 32 gauge x 5/16 ndle Use once daily with insulin Disp: 100 Each Rfl: 3 LORazepam (ATIVAN) 0.5 mg tab Take 0.5 mg by mouth twice daily as needed. Disp: Rfl: 2 Lancets lancets Check blood sugar twice daily Disp: 100 Each Rfl: 3 albuterol (PROVENTIL) 2.5 mg /3 mL (0.083 %) nebulizer solution Use 2.5 mg via nebulizer every 4 hours as needed for Wheezing/Shortness of Breath. Disp: Rfl: nystatin (MYCOSTATIN) cream Apply 1 application to affected area twice daily. Disp: 45 g Rfl: 0 No current facility-administered medications for this visit. ONE PNEUMOVAX PRIOR TO AGE 67 due on 1973 DTAP,TDAP,TD(1 - Tdap) due on 1976 MAMMOGRAM due on 1997 COLORECTAL CANCER SCREENING,SEE MODIFIER due on 2007 DILATED RETINAL EXAM due on 04/12/2017 URINE ALBUMIN CREATININE RATIO due on 09/19/2017 EXAM: OBJECTIVE: BP 122/70 (BP Site: Right Arm, BP Position: Sitting, BP Cuff Size: Large Adult) Pulse 96 Temp 36.5 ?C (97.7 ?F) (Tympanic) Resp 18 Wt 89.8 kg (198 lb) BMI 31.48 kg/m? General appearance: Pleasant adult woman in no acute distres though demonstrating pain. Holding left jaw rafy. No congestion or cough. Respirations: regular, unlabored, no retractions. Color: pink to lips and nailbeds, normal turgor Skin: warm, dry, no unusual rashes or lesions Head: Normocephalic Eyes: sclerae and conjunctivae without injection or exudate, PERRLA, EOMI, corneal light reflex symmetric bilaterally Ears: TM's are clear/ enamorado bilaterally with normal landmarks, no swelling or deformity ear canal or external ear Nose/Sinuses: Nose patent. No turbinate swelling. Active exudate: none. Maxillary and frontal sinuses nontender to percussion. Oropharynx: oral membranes are moist. Lips, mucosa, and tongue free from lesions. Gums without inflammation. Posterior pharynx no injection, no exudate, no tonsillar hypertrophy. Neck: Neck supple, small tender left node subtonsillar, no other lymphadenopathy; thyroid without mass or tenderness. + TMJ and lateral neck trigger point on left. Chest: normally shaped, equal expansion with breaths. Lungs: Lungs clear to auscultation and percussion. No crackles or wheezes. Heart: RRR without murmur, gallop, or rubs. S1 and S2 normal. OMT: myofascial release to TMJ and cervical attachments with marked improvement. ASSESSMENT/PLAN: 1. TMJ syndrome - ICD9: 524.69, ICD10: M26.629 (primary diagnosis) TMJ precautions with myofascial release techniques reviewed - CYCLOBENZAPRINE 10 MG TABLET 2. Type 2 diabetes mellitus without complication, without long-term current use of insulin (HCC) - ICD9: 250.00, ICD10: E11.9 uncontrolled - following with TAE roa 3. Left ear pain - ICD9: 388.70, ICD10: H92.02 Suspect r/t TMJ and tender lymph node 4. Tobacco use disorder - ICD9: 305.1, ICD10: F17.200 - Cessation encouraged. - Physiologic and physical aspects of tobacco addiction as well as strategies for quitting were discussed. - Counseling was given focusing on the harmful effects of this addiction especially given the patient's medical condition(s) which will be worsened because of the chemicals in tobacco. 5. Anxiety and depression - ICD9: 300.00, 311, ICD10: F41.9, F32.9 Off cymbalta resume. Start 30mg BID and in 1 month increase to 60mg BID LAMONT Mead PA-C 01/06/2018 10:08 AM Signed Start cymbalta 30mg BID x 1 months and then resume home stock 60mg BID. F/U in 2 months. Try to let your jaw relax. Make a conscious effort not to clench or grind. Avoid any excessive chewing. Use soft foods, ground meat, and avoid gum, candy, soft breads, or anything that makes you use you jaw. Trigger point massage over the muscle knots palpable at the angle of your jaw may help. After a few minutes of steady pressure or circling motion, the muscles will relax, and the knot will go away. You might try taking the palms over your hands, pressing in firmly over the jaw, and slowing sliding your hands down the sides of your face, opening and pulling your jaw downward. Moist heat for 10-20min may also help relax the muscles. You may use over the counter analgesics such as Tylenol, Advil or Aleve. If you clench or grind at night, seeing an lab pack chemist or oral surgeon might be helpful to make a bite plate to keep you from being able to completely close your mouth. In the meantime, for about $20 you can purchase a moldable Doctor's Echocardiograph Tech over the counter at most [employer] or [employer]. Behavioral therapy can also help to retrain the habits of clenching or grinding. Get plenty of rest. Force fluids daily with water and juices. Nasal saline spray may help to keep nose open and moist: 2- 3 squirts each side every few hours. This also help to rinse out virus and bacteria causing infection. Cool mist humidifier in room during sleep. May use OTC Tylenol or Ibuprofen as direct for discomfort. For sore throat, warm salt water gargles, Chlorseptic spray, lozenges or other OTC sore throat remedies may help. Decongestants such as plain Sudafed or with expectorant such as Mucinex D may help with nasal stuffiness or facial and sinus pressure. Generics are fine. These are over the counter but require an adult signature. Oxymetolazine nasal decongestants (Afrin, Dristan, Waqar's) may also help (in place of oral decongestants) but should not be used longer than 48-72 hours due to potential rebound congestion. OTC antihistamines such Benadryl (make cause drowsiness) or Zyrtec/ Clariten/ Noy (non-drowsy) may help watery nasal drainage though they are generally not recommended because they dry mucus and make it sticky. The flow of mucus is important to help your body rid the virus. If cough keeps you awake at night, try OTC remedies first, such as Nyquil, Delsym, Waqar's 44 or Mucinex DM. If this doesn't help you sleep, call the office for a prescription. Be careful if you are combining cough and cold medications that you aren't doubling the medicines. If you aren't sure: ask the pharmacist for help. Cough or sneeze into your sleeve to prevent spread of infected secretions. Wash your hands frequently. Try not to cough or sneeze on surfaces others might touch. If symptoms fail to improve in 5-7 days, fever > 100.5F, general worsening, or other concerning symptoms, return to [facility] or Ricci Cole MD. You may use Ibuprofen 800mg every 6-8 hours with food routinely until pain is fully resolved, then prn. Ibuprofen can cause stomach symptoms including ulceration, bleeding, nausea, pain, and diarrhea. Make sure to take it with food. If you are known to have allergy to anti-inflamatories medications, or have known kidney disease, make sure we know this before you take the medication. Referring Provider: SELF [[id number]] Allergies As of Date: 01/06/2018 Noted Allergy Reaction PENICILLINS 05/25/2008 4 - Hives SULFA (SULFONAMIDE ANTIBIOTICS) 09/19/2016 2 - Rash 14 - Other: See Comments Comments: Blisters and sore in throat Date Reviewed: 01/06/2018 Reviewed by: Yasmany Alexis (Lamont) Skyler - Fully Assessed Reason for Visit: Ear Pain [817] Cmt: left ear x 6 days Reason For Visit History Recorded Primary Visit Diagnosis:TMJ syndrome [M26.629] Other Visit Diagnoses:Type 2 diabetes mellitus without complication, without long-term current use of insulin (HCC) [E11.9] Left ear pain [H92.02] Tobacco use disorder [F17.200] Anxiety and depression [F41.9, F32.9] Order(s):ibuprofen (MOTRIN) 800 mg tabletTake 1 tablet by mouth every 8 hours as needed (FOR PAIN. TAKE WITH FOOD).Disp: 20 tabletRfl: 1 cyclobenzaprine (FLEXERIL) 10 mg tabletTake 1 tablet by mouth three times daily as needed.Disp: 30 tabletRfl: 0 DULoxetine (CYMBALTA) 30 mg capsuleTake 1 capsule by mouth once daily.Disp: 60 capsuleRfl: 0 Prescriptions as of 01/06/2018 Sig: REPAGLINIDE 2 MG TABLET Take 2 mg by mouth once daily. PROMETHAZINE 25 MG RECTAL SUP* 1 Suppository by RECTAL route* PROMETHAZINE 25 MG TABLET Take 1 tablet by mouth every * FLUTICASONE 50 MCG/ACTUATION * Use 2 Sprays in each nostril * AMITRIPTYLINE 25 MG TABLET Take 1 tablet by mouth daily * PREGABALIN 150 MG CAPSULE Take 1 capsule by mouth three* INSULIN GLARGINE (U-300) 300 * Inject 22 Units subcutaneousl* OMEPRAZOLE 20 MG CAPSULE,LESIA* Take 2 capsules by mouth amber* DULOXETINE 60 MG CAPSULE,LESIA* TAKE TWO CAPSULES BY MOUTH ON* BLOOD-GLUCOSE METER KIT 1 Each as needed. E11.9 BLOOD SUGAR DIAGNOSTIC STRIPS Test blood sugar twice daily.* ALBUTEROL SULFATE HFA 90 MCG/* Inhale 2 Puffs as instructed * PEN NEEDLE, DIABETIC 32 GAUGE* Use once daily with insulin LORAZEPAM 0.5 MG TABLET Take 0.5 mg by mouth twice da* LANCETS Check blood sugar twice daily ALBUTEROL SULFATE 2.5 MG/3 ML* Use 2.5 mg via nebulizer ever* NYSTATIN 100,000 UNIT/GRAM TO* Apply 1 application to affect* IBUPROFEN 800 MG TABLET Take 1 tablet by mouth every * CYCLOBENZAPRINE 10 MG TABLET Take 1 tablet by mouth three * DULOXETINE 30 MG CAPSULE,LESIA* Take 1 capsule by mouth once * Problem List As Of Date 01/06/2018 Noted Resolved TOBACCO USE DISORDER [F17.200] CERVICAL DISC DEGEN [M50.30] More... Chronic bronchitis (HCC) [J42] DEPRESSIVE DISORDER NEC [F32.9] PERSISTENT INSOMNIA [G47.00] INVALID FOR* MGRN W AURA WO NTR MGRN [G43.109] PANIC DISORDER WITHOUT AGORAPHOBIA [F41.0] Fibromyalgia [M79.7] History of recurrent UTIs [Z87.440] INVALID FOR* DM (diabetes mellitus) (HCC) [E11.9] Secondary polycythemia [D75.1] INVALID FOR* Other instructions from your clinician: Start cymbalta 30mg BID x 1 months and then resume home stock 60mg BID. F/U in 2 months. Try to let your jaw relax. Make a conscious effort not to clench or grind. Avoid any excessive chewing. Use soft foods, ground meat, and avoid gum, candy, soft breads, or anything that makes you use you jaw. Trigger point massage over the muscle knots palpable at the angle of your jaw may help. After a few minutes of steady pressure or circling motion, the muscles will relax, and the knot will go away. You might try taking the palms over your hands, pressing in firmly over the jaw, and slowing sliding your hands down the sides of your face, opening and pulling your jaw downward. Moist heat for 10-20min may also help relax the muscles. You may use over the counter analgesics such as Tylenol, Advil or Aleve. If you clench or grind at night, seeing an lab pack chemist or oral surgeon might be helpful to make a bite plate to keep you from being able to completely close your mouth. In the meantime, for about $20 you can purchase a moldable Doctor's Echocardiograph Tech over the counter at most [employer] or [employer]. Behavioral therapy can also help to retrain the habits of clenching or grinding. Get plenty of rest. Force fluids daily with water and juices. Nasal saline spray may help to keep nose open and moist: 2-3 squirts each side every few hours. This also help to rinse out virus and bacteria causing infection. Cool mist humidifier in room during sleep. May use OTC Tylenol or Ibuprofen as direct for discomfort. For sore throat, warm salt water gargles, Chlorseptic spray, lozenges or other OTC sore throat remedies may help. Decongestants such as plain Sudafed or with expectorant such as Mucinex D may help with nasal stuffiness or facial and sinus pressure. Generics are fine. These are over the counter but require an adult signature. Oxymetolazine nasal decongestants (Afrin, Dristan, Waqar's) may also help (in place of oral decongestants) but should not be used longer than 48-72 hours due to potential rebound congestion. OTC antihistamines such Benadryl (make cause drowsiness) or Zyrtec/ Clariten/ Noy (non-drowsy) may help watery nasal drainage though they are generally not recommended because they dry mucus and make it sticky. The flow of mucus is important to help your body rid the virus. If cough keeps you awake at night, try OTC remedies first, such as Nyquil, Delsym, Waqar's 44 or Mucinex DM. If this doesn't help you sleep, call the office for a prescription. Be careful if you are combining cough and cold medications that you aren't doubling the medicines. If you aren't sure: ask the pharmacist for help. Cough or sneeze into your sleeve to prevent spread of infected secretions. Wash your hands frequently. Try not to cough or sneeze on surfaces others might touch. If symptoms fail to improve in 5-7 days, fever > 100.5F, general worsening, or other concerning symptoms, return to [facility] or Ricci Cole MD. You may use Ibuprofen 800mg every 6-8 hours with food routinely until pain is fully resolved, then prn. Ibuprofen can cause stomach symptoms including ulceration, bleeding, nausea, pain, and diarrhea. Make sure to take it with food. If you are known to have allergy to anti-inflamatories medications, or have known kidney disease, make sure we know this before you take the medication. Prescriptions ordered this encounter Disp Refills Start End IBUPROFEN 800 MG TABLET 20 t* 1 01/06/2018 Route: ORAL Sig: Take 1 tablet by mouth every 8 hours as needed (FOR PAIN. TAKE WITH FOOD). CYCLOBENZAPRINE 10 MG TABLET 30 t* 0 01/06/2018 Route: ORAL Sig: Take 1 tablet by mouth three times daily as needed. DULOXETINE 30 MG CAPSULE,DELAYED REL* 60 c* 0 01/06/2018 Route: ORAL Sig: Take 1 capsule by mouth once daily. Disposition: Return in about 2 months (around 03/08/2018). Follow-up and Disposition History Recorded Encounter Status:Closed by Yasmany HOLLAND PA-C on 01/06/18 ENDOCRINOLOGY VISIT Observed: 12/28/2017 Status: F Source: [facility]LEX REPORT 4:51 PM [facility] REPOSITORY [facility] [address] [place] [address] OFFICE VISIT Date of Service: 12/25/17 MR#: [id number] Acct: [id number] Name: IVET VALERO Rep #: [id number] : 1955 Provider: Veronica Mejia NP Age/Sex: 62/F Location: [facility] [place] Status: Signed HPI History of present illness History of present illness History of present illness Ivet Valero is a 62 year old female who presents for diabetes type 2, Diagnosed approx 3 years ago. Continues on Toujeo 30 units . Pt denies difficulty with injections or self monitoring of BG. Denies any signs of infection or irritation at site of injections. Reports taking insulin as directed She reports she has constant nausea and abdominal pain and has been following with gastro at [facility]. Also seen by Dr. Spicer. She states she had a test for gastroparesis but this was not the cause. Reports she also has had tests for pancreatitis. Has complex medical history. 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 She reports she recently lost her medicaid coverage and is without sufficient funds to meet her needs. At time of visit: -Pt denies symptoms of hypertensive emergency (CP,SOB,KUNZ, or blurred vision) and hypotension(dizziness or lightheadedness) -Pt denies symptoms of hypoglycemia ( sweaty, confusion, anxiety, tremor, hunger, palpitations) and hyperglycemia ( polydipsia, polyuria) -Pt denies potential medication adverse effect. SMBG Brings meter BG 170-200+ Checks 2-4 times daily Hypoglycemia Aware of hypoglycemia: When awake Able to self treat low BG: Yes Frequent low Blood sugar: No Has supply of glucagon: no Type: type 2 Glucose control symptoms: Reports high post-meal glucose and high fasting glucose Weight and fatigue symptoms: Denies snoring Cardiopulmonary symptoms: Reports lightheadedness; denies chest pain at rest, dyspnea on exertion or myalgias GI symptoms: Reports nausea/dyspepsia; denies constipation, diarrhea or vomiting Other symptoms: Reports blurry vision and change in vision Pertinent visit history: Reports recent visit to ER Self monitoring: Yes Percentage of fasting blood glucose within goal: <25% of the time Dietary compliance: Diabetes: other Diabetes education in past year: Yes Glucose testing: demonstrates correct use of meter Sick day education - understands ketone testing: Yes Physical activity: regular Exam Const General: no acute distress Nutritional Appearance: overweight Orientation: oriented x3 [facility] Head: normal to inspection, normocephalic Ears: hearing grossly normal bilaterally Nose: external nose normal Mouth: oral mucosae normal, moist mucous membranes Eyes General: appearance normal, both eyes and all related structures Eyelids: eyelids normal Conjunctivae: conjunctivae normal Sclera: sclerae normal Pupils: PERRL Resp Effort AND Inspection: normal respiratory effort, able to speak in complete sentences, symmetric chest movement Auscultation: Bilateral: Diminished Lung Sounds Cardio Rate: regular rate Rhythm: regular rhythm Heart Sounds: S1 normal, S2 normal, no gallops, no murmurs GI Inspection: normal to inspection Auscultation: normal bowel sounds Palpation: soft Skin General: no rashes or lesions noted Wounds: no wounds Diabetic Foot Pulses: L dorsalis pedis pulse: normal, R dorsalis pedis pulse: normal Monofilament test: Left foot: normal, Right foot: normal Neuro General: gait normal, moves all extremities Cranial Nerves: CN's II-XI intact bilaterally Extrem General: normal to inspection, no edema Psych Mental Status: mental status grossly normal Mood: congruent mood Affect: normal affect Speech and Movement: speech and movement normal Attitude: cooperative Thought Process: normal Thought Content: normal Judgment: judgment good Weight and fatigue symptoms: Denies snoring Cardiopulmonary symptoms: Denies chest pain at rest, dyspnea on exertion, lightheadedness or myalgias GI symptoms: Reports nausea/dyspepsia and vomiting; denies constipation or diarrhea Other symptoms: Denies blurry vision or change in vision Weight and fatigue symptoms: Denies snoring Cardiopulmonary symptoms: Denies chest pain at rest, dyspnea on exertion, lightheadedness or myalgias GI symptoms: Reports diarrhea, nausea/dyspepsia and vomiting; denies constipation Other symptoms: Denies blurry vision or change in vision Intake Vital Signs12/25/17 Height 5 ft 7 in 12/25/17 Weight: 199 lb 12/25/17 Body Mass Index (BMI) 31.1 12/25/17 Blood Pressure 123/83 12/25/17 Blood Pressure Location Lt popliteal 12/25/17 Blood Pressure Position Sitting Intake Visit Reasons: FU Director Of Professional Services Required: No Accompanied by: Self Is patient in pain?: No Allergies Penicillins Allergy (Verified 12/25/17 08:55) Hives Sulfa (Sulfonamide Antibiotics) Allergy (Verified 12/25/17 08:55) Hives acetaminophen [From Vicodin] Adverse Reaction (Verified 12/25/17 08:55) Nausea hydrocodone bitartrate [From Vicodin] Adverse Reaction (Verified 12/25/17 08:55) Nausea Medications Pregabalin [Lyrica] 150 mg PO TID 06/10/13 [History Confirmed 12/25/17] Albuterol Inhaler [Ventolin Hfa] 1 - 2 puff INHALATION Q4H PRN PRN #1 inhaler 10/22/16 [Rx Confirmed 12/25/17] Lorazepam [Ativan] 0.5 mg PO TID #6 tab 10/23/16 [Rx Confirmed 12/25/17] proMETHazine suppository [Phenergan] 25 mg RECTAL Q6H PRN PRN #14 suppos. 10/07/17 [Rx Confirmed 12/25/17] amitriptyline 25 mg tablet 25 mg PO QHS 11/18/17 [History Confirmed 12/25/17] fluticasone 50 mcg/actuation nasal spray,suspension 2 spray INTRANASAL QDAY 11/18/17 [History Confirmed 12/25/17] omeprazole 20 mg capsule,delayed release 40 mg PO QHS cap 11/18/17 [History Confirmed 12/25/17] insulin glargine (U-300) 300 unit/mL (1.5 mL) subcutaneous pen 29 unit SC QDAY #4.5 ml 12/18/17 [Rx Confirmed 12/25/17] repaglinide 2 mg tablet 4 mg PO .QID #270 tab 12/25/17 [Rx Confirmed 12/25/17] Is last menstrual period known: No Post menopausal: Yes Patient : No Nurse's Note: blood sugars : low : 229 high : 504 PFSH Medical History Anxiety and depression (Acute) COPD (chronic obstructive pulmonary disease) (Acute) Chronic UTI (Acute) Chronic bronchitis (Acute) Diabetes type 2, controlled (Acute) GI problem (Acute) Seasonal allergies (Acute) Vision problem (Acute) Surgical History Hx of cholecystectomy (Acute) S/P ORIF (open reduction internal fixation) fracture (Acute) S/P complete hysterectomy (Acute) bladder sling (Acute) Family History Brother Diabetes Hypertension Social History Smoking Status: Current every day smoker second hand exposure: Yes alcohol intake: never substance use type: does not use ROS Const Constitutional: Positive for fatigue; no anorexia, body ache, chills, fever(s), frequent falls, decreased energy, malaise, night sweats, weakness, weight change, sleep problems, abnormal sleep pattern, change in appetite, other, headache(s), snoring or excessive sweating Eyes Eyes: No blurry vision, change in vision, double vision, discharge, dry eyes, bulging eyes, floaters, visual disturbances, eye pain, light sensitivity, spots in vision, tunnel vision or other ENT ENT: Positive for nasal congestion and nasal discharge; no abnormal hearing, ear pain, ear discharge, ear pressure, hearing loss, tinnitus, dizziness/vertigo, balance problems, nosebleed/epistaxis, nasal obstruction, nose pain, sinus pressure, sinus pain, post nasal drip, headache(s), facial pain, dental pain, dry mouth, bad breath, hoarseness, lip swelling, mouth lesions, mouth pain, sore throat, tongue swelling, throat swelling, other, difficulty swallowing or neck pain Resp Respiratory: Positive for cough; no change in phlegm color, chest congestion, excessive phlegm production, hemoptysis, pain on inspiration, shortness of breath, pain with cough, snoring, stridor, wheezing or other Cardio Cardiology: No chest pain at rest, chest pain with exertion, leg pain with exertion, excessive sweating, shortness of breath, dyspnea on exertion, generalized swelling, irregular heart rhythm, lightheadedness, orthopnea, radiating jaw, neck or arm pain, fast heart rate, slow heart rate, palpitations or other Gastro GI: Positive for diarrhea, nausea/dyspepsia and vomiting; no abdominal pain, belching, bloating, change in bowel habits, change in stool character, coffee ground emesis, constipation, cramping, heartburn, difficulty swallowing, feeling full early, excessive flatus, incontinent of stools, Vomiting blood/hematemesis, blood in stool, loose stools, Black,tarry stools, pain with swallowing or other Genitourinary-Female: Positive for urinary frequency; no difficulty urinating, burning urination, painful urination, urinary incontinence, urinary urgency, urinary hesitancy, urinary retention, blood in urine, Frequent nighttime urination/ nocturia, post void dribbling, suprapubic fullness, side pain, sexual problems, genital lesions, genital itching, hot flashes, abnormal periods, abnormal vaginal bleeding, absent period, painful periods, light periods, heavy periods, difficulty getting , painful intercourse, pelvic pain, vaginal dryness, vaginal odor, Vaginal Itching or other Musc Musculoskeletal: No abnormal walking, joint pain, back pain, deformity, joint swelling, limited range of motion, loss of height, muscle cramps, muscle weakness, decreased muscle mass, body aches, neck pain, numbness, radiating pain into limb, stiffness, tingling or other Skin Skin: No acne, hair loss, change in hair, nail changes, boil, change in skin color, dry skin, redness, excessive hair growth, yellowing of the skin, lesions, itching, rash, skin pain, skin ulcer, sores, skin swelling, wounds or other Breast Breast: No other Neuro Neurology: No frequent falls, weakness, visual disturbances, abnormal hearing, headache(s), abnormal walking, numbness or tingling Psych Psychiatric: No abnormal sleep pattern, No change in appetite Endo Endocrine: Positive for fatigue; no other or excessive sweating Aller/Imm Allergy/Immunologic: No lip swelling, tongue swelling, throat swelling, wheezing or itchy eyes Assessment AND Plan Problems 1. Type 2 diabetes mellitus without complication, without long-term current use of insulin E11.9 Plan Will change toujeo to 34 units today Increase prandin to 3mg each meal and bedtime sanck if she has one If meals continue to have spikes post meal she will increase to prandin 4 mg Every 3-5 days she will increase toujeo by 3 units as long as all BG above 150 Toujeo is not to be increased above 45 units Orders Orders: Medications Changed: From: repaglinide (Prandin) administer within 30 minutes of a meal or sna2 mg PO TID ck. Begin with 1/2 tablet for meals, may increase to 1 pill. Plan Detail Additional Comments 1. Please schedule follow up in 3 months. 2. Lab work one week before appointment. 3. Discussed importance of regular exercise and recommend starting or continuing a regular exercise program for good health. 4. The patient was encouraged to lose weight for good health 5. The importance of monitoring blood sugar regularly was reviewed. 6. The importance of monitoring the HBA1c level regularly was reviewed. 7. The importance of prper foot care and regularly checking feet to prevent sores and loss of limbs was reviewed. 8. The importance of keeping BP at or below 130/80 to prevent stroke, heart attacks, kidney failure, blindness was reviewed. Spent approximately 30 minutes with patient with over 50% of time spent in discussion and counseling regarding medication adjustment, symptoms and treatment of hypoglycemia, diet adherence, and checking BG before driving. Call office in 2 weeks Coding Level of Care Code Off vis,new,level 4 Diagnoses Type 2 diabetes mellitus without complication, without long- term current use of insulin E11.9 Diabetes mellitus longterm insulin use: without longterm use Time Spent (min) 30 12/28/17 1651 <Electronically signed by Veronica ARDON> Date Veronica ARDON Cosigner Signature: Date (if applicable) CC: ENDOCRINOLOGY VISIT Observed: 12/03/2017 Status: F Source: ALEX REPORT 3:24 PM [facility] [address] [place], [place] [address]. [address] [place] [address] OFFICE VISIT Date of Service: 12/03/17 MR#: [id number] Acct: [id number] Name: IVET VALERO Rep #: [id number] : 1955 Provider: Veronica Mejia NP Age/Sex: 62/F Location: [facility] [place] Status: Signed HPI History of present illness History of present illness Ivet Valero is a 62 year old female who presents for diabetes type 2, Diagnosed approx 3 years ago. Has been started on Toujeo 25 units. Pt denies difficulty with injections or self monitoring of BG. Denies any signs of infection or irritation at site of injections. Reports taking insulin as directed She reports she has constant nausea and abdominal pain and has been following with gastro at [facility]. Also seen by Dr. Spicer. She states she had a test for gastroparesis but this was not the cause. Reports she also has had tests for pancreatitis. Has complex medical history. 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 She reports she recently lost her medicaid coverage and is without sufficent funds to meet her needs. At time of visit: -Pt denies symptoms of hypertensive emergency (CP,SOB,KUNZ, or blurred vision) and hypotension(dizziness or lightheadedness) -Pt denies symptoms of hypoglycemia ( sweaty, confusion, anxiety, tremor, hunger, palpitations) and hyperglycemia ( polydipsia, polyuria) -Pt denies potential medication adverse effect. SMBG Brings meter BG 200+ Checks 2 times daily Hypoglycemia Aware of hypoglycemia: When awake Able to self treat low BG: Yes Frequent low Blood sugar: No Has supply of glucagon: no Type: type 2 Glucose control symptoms: Reports high post-meal glucose and high fasting glucose Weight and fatigue symptoms: Denies snoring Cardiopulmonary symptoms: Reports lightheadedness; denies chest pain at rest, dyspnea on exertion or myalgias GI symptoms: Reports nausea/dyspepsia; denies constipation, diarrhea or vomiting Other symptoms: Reports blurry vision and change in vision Pertinent visit history: Reports recent visit to ER Self monitoring: Yes Percentage of fasting blood glucose within goal: <25% of the time Dietary compliance: Diabetes: other Diabetes education in past year: Yes Glucose testing: demonstrates correct use of meter Sick day education - understands ketone testing: Yes Physical activity: regular Exam Const General: no acute distress Nutritional Appearance: overweight Orientation: oriented x3 [facility] Head: normal to inspection, normocephalic Ears: hearing grossly normal bilaterally Nose: external nose normal Mouth: oral mucosae normal, moist mucous membranes Eyes General: appearance normal, both eyes and all related structures Eyelids: eyelids normal Conjunctivae: conjunctivae normal Sclera: sclerae normal Pupils: PERRL Resp Effort AND Inspection: normal respiratory effort, able to speak in complete sentences, symmetric chest movement Auscultation: Bilateral: Diminished Lung Sounds Cardio Rate: regular rate Rhythm: regular rhythm Heart Sounds: S1 normal, S2 normal, no gallops, no murmurs GI Inspection: normal to inspection Auscultation: normal bowel sounds Palpation: soft Skin General: no rashes or lesions noted Wounds: no wounds Diabetic Foot Pulses: L dorsalis pedis pulse: normal, R dorsalis pedis pulse: normal Monofilament test: Left foot: normal, Right foot: normal Neuro General: gait normal, moves all extremities Cranial Nerves: CN's II-XI intact bilaterally Extrem General: normal to inspection, no edema Psych Mental Status: mental status grossly normal Mood: congruent mood Affect: normal affect Speech and Movement: speech and movement normal Attitude: cooperative Thought Process: normal Thought Content: normal Judgment: judgment good Weight and fatigue symptoms: Denies snoring Cardiopulmonary symptoms: Denies chest pain at rest, dyspnea on exertion, lightheadedness or myalgias GI symptoms: Reports nausea/dyspepsia and vomiting; denies constipation or diarrhea Other symptoms: Denies blurry vision or change in vision Intake Vital Signs12/03/17 Height 5 ft 7 in 12/03/17 Weight: 202 lb 12/03/17 Body Mass Index (BMI) 31.6 12/03/17 Blood Pressure 135/90 12/03/17 Blood Pressure Location Lt popliteal 12/03/17 Blood Pressure Position Sitting Intake Visit Reasons: Diabetes follow-up Director Of Professional Services Required: No Accompanied by: Self Is patient in pain?: No Allergies Penicillins Allergy (Verified 12/03/17 13:03) Hives Sulfa (Sulfonamide Antibiotics) Allergy (Verified 12/03/17 13:03) Hives acetaminophen [From Vicodin] Adverse Reaction (Verified 12/03/17 13:03) Nausea hydrocodone bitartrate [From Vicodin] Adverse Reaction (Verified 12/03/17 13:03) Nausea Medications Pregabalin [Lyrica] 150 mg PO TID 06/10/13 [History Confirmed 12/03/17] Albuterol Inhaler [Ventolin Hfa] 1 - 2 puff INHALATION Q4H PRN PRN #1 inhaler 10/22/16 [Rx Confirmed 12/03/17] Lorazepam [Ativan] 0.5 mg PO TID #6 tab 10/23/16 [Rx Confirmed 12/03/17] proMETHazine suppository [Phenergan] 25 mg RECTAL Q6H PRN PRN #14 suppos. 10/07/17 [Rx Confirmed 12/03/17] amitriptyline 25 mg tablet 25 mg PO QHS 11/18/17 [History Confirmed 12/03/17] fluticasone 50 mcg/actuation nasal spray,suspension 2 spray INTRANASAL QDAY 11/18/17 [History Confirmed 12/03/17] insulin glargine (U-300) 300 unit/mL (1.5 mL) subcutaneous pen 22 unit SC QDAY ml 11/18/17 [History Confirmed 12/03/17] omeprazole 20 mg capsule,delayed release 40 mg PO QHS cap 11/18/17 [History Confirmed 12/03/17] repaglinide 2 mg tablet 2 mg PO TID #180 tab 12/03/17 [Rx Confirmed 12/03/17] Is last menstrual period known: No Post menopausal: Yes Patient : No Nurse's Note: blood sugars : low : 293 high : 406 PFSH Medical History Anxiety and depression (Acute) COPD (chronic obstructive pulmonary disease) (Acute) Chronic UTI (Acute) Chronic bronchitis (Acute) Diabetes type 2, controlled (Acute) GI problem (Acute) Seasonal allergies (Acute) Vision problem (Acute) Surgical History Hx of cholecystectomy (Acute) S/P ORIF (open reduction internal fixation) fracture (Acute) S/P complete hysterectomy (Acute) bladder sling (Acute) Family History Brother Diabetes Hypertension Social History Smoking Status: Current every day smoker second hand exposure: Yes alcohol intake: never substance use type: does not use ROS Const Constitutional: Positive for fatigue; no anorexia, body ache, chills, fever(s), frequent falls, decreased energy, malaise, night sweats, weakness, weight change, sleep problems, abnormal sleep pattern, change in appetite, other, headache(s), snoring or excessive sweating Eyes Eyes: No blurry vision, change in vision, double vision, discharge, dry eyes, bulging eyes, floaters, visual disturbances, eye pain, light sensitivity, spots in vision, tunnel vision or other ENT ENT: Positive for nasal discharge and post nasal drip; no abnormal hearing, ear pain, ear discharge, ear pressure, hearing loss, tinnitus, dizziness/vertigo, balance problems, nosebleed/epistaxis, nasal congestion, nasal obstruction, nose pain, sinus pressure, sinus pain, headache(s), facial pain, dental pain, dry mouth, bad breath, hoarseness, lip swelling, mouth lesions, mouth pain, sore throat, tongue swelling, throat swelling, other, difficulty swallowing or neck pain Resp Respiratory: Positive for cough, shortness of breath and wheezing; no change in phlegm color, chest congestion, excessive phlegm production, hemoptysis, pain on inspiration, pain with cough, snoring, stridor or other Cardio Cardiology: No chest pain at rest, chest pain with exertion, leg pain with exertion, excessive sweating, shortness of breath, dyspnea on exertion, generalized swelling, irregular heart rhythm, lightheadedness, orthopnea, radiating jaw, neck or arm pain, fast heart rate, slow heart rate, palpitations or other Gastro GI: Positive for nausea/dyspepsia and vomiting; no abdominal pain, belching, bloating, change in bowel habits, change in stool character, coffee ground emesis, constipation, cramping, diarrhea, heartburn, difficulty swallowing, feeling full early, excessive flatus, incontinent of stools, Vomiting blood/hematemesis, blood in stool, loose stools, Black,tarry stools, pain with swallowing or other Genitourinary-Female: No difficulty urinating, burning urination, painful urination, urinary incontinence, urinary frequency, urinary urgency, urinary hesitancy, urinary retention, blood in urine, Frequent nighttime urination/ nocturia, post void dribbling, suprapubic fullness, side pain, sexual problems, genital lesions, genital itching, hot flashes, abnormal periods, abnormal vaginal bleeding, absent period, painful periods, light periods, heavy periods, difficulty getting , painful intercourse, pelvic pain, vaginal dryness, vaginal odor, Vaginal Itching or other Musc Musculoskeletal: No abnormal walking, joint pain, back pain, deformity, joint swelling, limited range of motion, loss of height, muscle cramps, muscle weakness, decreased muscle mass, body aches, neck pain, numbness, radiating pain into limb, stiffness, tingling or other Skin Skin: No acne, hair loss, change in hair, nail changes, boil, change in skin color, dry skin, redness, excessive hair growth, yellowing of the skin, lesions, itching, rash, skin pain, skin ulcer, sores, skin swelling, wounds or other Breast Breast: No other Neuro Neurology: No frequent falls, weakness, visual disturbances, abnormal hearing, headache(s), abnormal walking, numbness or tingling Psych Psychiatric: No abnormal sleep pattern, No change in appetite Endo Endocrine: Positive for fatigue; no other or excessive sweating Aller/Imm Allergy/Immunologic: Positive for wheezing; no lip swelling, tongue swelling, throat swelling or itchy eyes Assessment AND Plan 1. Type 2 diabetes mellitus without complication, without long-term current use of insulin E11.9 Plan Medication as directed. Read written instructions Start with prandin 1mg (1/2 pill ) at each meal. If BG reamin high may increase to 2mg each meal. Increase toujeo to 30 units daily Monitor Bg before and 2 hours after each meal Orders Orders: Plan Detail Other Medications New: repaglinide (Prandin) administer within 30 minutes of a meal or snack. Beg2 mg PO TID in with 1/2 tablet for meals, may increase to 1 pill. Additional Comments 1. Please schedule follow up in 3 months. 2. Lab work one week before appointment. 3. Discussed importance of regular exercise and recommend starting or continuing a regular exercise program for good health. 4. The patient was encouraged to lose weight for good health 5. The importance of monitoring blood sugar regularly was reviewed. 6. The importance of monitoring the HBA1c level regularly was reviewed. 7. The importance of prper foot care and regularly checking feet to prevent sores and loss of limbs was reviewed. 8. The importance of keeping BP at or below 130/80 to prevent stroke, heart attacks, kidney failure, blindness was reviewed. Spent approximately 30 minutes with patient with over 50% of time spent in discussion and counseling regarding medication adjustment, symptoms and treatment of hypoglycemia, diet adherence, and checking BG before driving. Coding Level of Care Code Off vis,new,level 3 Diagnoses Type 2 diabetes mellitus without complication, without long- term current use of insulin E11.9 Diabetes mellitus longterm insulin use: without longterm use Time Spent (min) 30 12/03/17 1524 <Electronically signed by Veronica ARDON> Date Veronica ARDON Cosigner Signature: Date (if applicable) CC: ENDOCRINOLOGY VISIT Observed: 11/19/2017 Status: F Source: ALEX REPORT 8:58 AM [facility] [address] [place] [address]. [address] [place] [address] OFFICE VISIT Date of Service: 11/18/17 MR#: [id number] Acct: [id number] Name: IVET VALERO Rep #: [id number] : 1955 Provider: Veronica Mejia NP Age/Sex: 62/F Location: [facility] [place] Status: Signed HPI History of present illness Ivet Valero is a 62 year old female who presents for consult of diabetes type 2, Diagnosed approx 3 years ago. Has been started on Toujeo 22 units. Pt denies difficulty with injections or self monitoring of BG. Denies any signs of infection or irritation at site of injections. Reports taking insulin as directed She reports she has constant nausea and abdominal pain and has been following with gastro at [facility]. Also seen by Dr. Spicer. She states she had a test for gastroparesis but this was not the cause. Reports she also has had tests for pancreatitis. Has complex medical history. 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 She reports she recently lost her medicaid coverage and is without sufficent funds to meet her needs. At time of visit: -Pt denies symptoms of hypertensive emergency (CP,SOB,KUNZ, or blurred vision) and hypotension(dizziness or lightheadedness) -Pt denies symptoms of hypoglycemia ( sweaty, confusion, anxiety, tremor, hunger, palpitations) and hyperglycemia ( polydipsia, polyuria) -Pt denies potential medication adverse effect. Hypoglycemia Aware of hypoglycemia: When awake Able to self treat low BG: Yes Frequent low Blood sugar: No Has supply of glucagon: no Type: type 2 Glucose control symptoms: Reports high post-meal glucose and high fasting glucose Weight and fatigue symptoms: Denies snoring Cardiopulmonary symptoms: Reports lightheadedness; denies chest pain at rest, dyspnea on exertion or myalgias GI symptoms: Reports nausea/dyspepsia; denies constipation, diarrhea or vomiting Other symptoms: Reports blurry vision and change in vision Pertinent visit history: Reports recent visit to ER Self monitoring: Yes Percentage of fasting blood glucose within goal: <25% of the time Dietary compliance: Diabetes: other Diabetes education in past year: Yes Glucose testing: demonstrates correct use of meter day education - understands ketone testing: Yes Physical activity: regular Exam Const General: no acute distress Nutritional Appearance: overweight Orientation: oriented x3 HENMT Head: normal to inspection, normocephalic Ears: hearing grossly normal bilaterally Nose: external nose normal Mouth: oral mucosae normal, moist mucous membranes Eyes General: appearance normal, both eyes and all related structures Eyelids: eyelids normal Conjunctivae: conjunctivae normal Sclera: sclerae normal Pupils: PERRL Resp Effort AND Inspection: normal respiratory effort, able to speak in complete sentences, symmetric chest movement Auscultation: Bilateral: Diminished Lung Sounds Cardio Rate: regular rate Rhythm: regular rhythm Heart Sounds: S1 normal, S2 normal, no gallops, no murmurs GI Inspection: normal to inspection Auscultation: normal bowel sounds Palpation: soft Skin General: no rashes or lesions noted Wounds: no wounds Diabetic Foot Pulses: L dorsalis pedis pulse: normal, R dorsalis pedis pulse: normal Monofilament test: Left foot: normal, Right foot: normal Neuro General: gait normal, moves all extremities Cranial Nerves: CN's II-XI intact bilaterally Extrem General: normal to inspection, no edema Psych Mental Status: mental status grossly normal Mood: congruent mood Affect: normal affect Speech and Movement: speech and movement normal Attitude: cooperative Thought Process: normal Thought Content: normal Judgment: judgment good Intake Vital Signs11/18/17 Height 58 ft 11/18/17 Weight: 194 lb 6 oz 11/18/17 Body Mass Index (BMI) 0.3 11/18/17 Blood Pressure 138/91 11/18/17 Blood Pressure Location Lt popliteal 11/18/17 Blood Pressure Position Sitting Intake Visit Reasons: diabetes type 2 Director Of Professional Services Required: No Accompanied by: Self Is patient in pain?: No Allergies Penicillins Allergy (Verified 11/18/17 08:31) Hives Sulfa (Sulfonamide Antibiotics) Allergy (Verified 11/18/17 08:31) Hives acetaminophen [From Vicodin] Adverse Reaction (Verified 11/18/17 08:31) Nausea hydrocodone bitartrate [From Vicodin] Adverse Reaction (Verified 11/18/17 08:31) Nausea Medications Pregabalin [Lyrica] 150 mg PO TID 06/10/13 [History Confirmed 11/18/17] Albuterol Inhaler [Ventolin Hfa] 1 - 2 puff INHALATION Q4H PRN PRN #1 inhaler 10/22/16 [Rx Confirmed 11/18/17] Lorazepam [Ativan] 0.5 mg PO TID #6 tab 10/23/16 [Rx Confirmed 11/18/17] proMETHazine suppository [Phenergan] 25 mg RECTAL Q6H PRN PRN #14 suppos. 10/07/17 [Rx Confirmed 11/18/17] amitriptyline 25 mg tablet 25 mg PO QHS 11/18/17 [History Confirmed 11/18/17] fluticasone 50 mcg/actuation nasal spray,suspension 2 spray INTRANASAL QDAY 11/18/17 [History Confirmed 11/18/17] insulin glargine (U-300) 300 unit/mL (1.5 mL) subcutaneous pen 22 unit SC QDAY ml 11/18/17 [History Confirmed 11/18/17] omeprazole 20 mg capsule,delayed release 40 mg PO QHS cap 11/18/17 [History Confirmed 11/18/17] Is last menstrual period known: No Post menopausal: Yes Patient : No Nurse's Note: blood sugars : low : 302 high : 430 PFSH Medical History Anxiety and depression (Acute) COPD (chronic obstructive pulmonary disease) (Acute) Chronic UTI (Acute) Chronic bronchitis (Acute) Diabetes type 2, controlled (Acute) GI problem (Acute) Seasonal allergies (Acute) Vision problem (Acute) Surgical History Hx of cholecystectomy (Acute) S/P ORIF (open reduction internal fixation) fracture (Acute) S/P complete hysterectomy (Acute) bladder sling (Acute) Family History Brother Diabetes Hypertension Social History Smoking Status: Current every day smoker second hand exposure: Yes alcohol intake: never substance use type: does not use ROS Const Constitutional: Positive for fatigue, fever(s), night sweats and sleep problems; no anorexia, body ache, chills, frequent falls, decreased energy, malaise, weakness, weight change, abnormal sleep pattern, change in appetite, other, headache(s), snoring or excessive sweating Eyes Eyes: Positive for blurry vision, change in vision and other (eye exam 2+ years ago); no double vision, discharge, dry eyes, bulging eyes, floaters, visual disturbances, eye pain, light sensitivity, spots in vision or tunnel vision ENT ENT: Positive for nasal congestion; no abnormal hearing, ear pain, ear discharge, ear pressure, hearing loss, tinnitus, dizziness/vertigo, balance problems, nosebleed/epistaxis, nasal obstruction, nose pain, sinus pressure, sinus pain, nasal discharge, post nasal drip, headache(s), facial pain, dental pain, dry mouth, bad breath, hoarseness, lip swelling, mouth lesions, mouth pain, sore throat, tongue swelling, throat swelling, other, difficulty swallowing or neck pain Resp Respiratory: Positive for cough; no change in phlegm color, chest congestion, excessive phlegm production, hemoptysis, pain on inspiration, shortness of breath, pain with cough, snoring, stridor, wheezing or other Cardio Cardiology: Positive for lightheadedness; no chest pain at rest, chest pain with exertion, leg pain with exertion, excessive sweating, shortness of breath, dyspnea on exertion, generalized swelling, irregular heart rhythm, orthopnea, radiating jaw, neck or arm pain, fast heart rate, slow heart rate, palpitations or other Gastro GI: Positive for nausea/dyspepsia; no abdominal pain, belching, bloating, change in bowel habits, change in stool character, coffee ground emesis, constipation, cramping, diarrhea, heartburn, difficulty swallowing, feeling full early, excessive flatus, incontinent of stools, Vomiting blood/hematemesis, blood in stool, loose stools, Black,tarry stools, pain with swallowing, vomiting or other Genitourinary-Female: Positive for urinary incontinence, urinary frequency and urinary urgency; no difficulty urinating, burning urination, painful urination, urinary hesitancy, urinary retention, blood in urine, Frequent nighttime urination/ nocturia, post void dribbling, suprapubic fullness, side pain, sexual problems, genital lesions, genital itching, hot flashes, abnormal periods, abnormal vaginal bleeding, absent period, painful periods, light periods, heavy periods, difficulty getting , painful intercourse, pelvic pain, vaginal dryness, vaginal odor, Vaginal Itching or other Musc Musculoskeletal: No abnormal walking, joint pain, back pain, deformity, joint swelling, limited range of motion, loss of height, muscle cramps, muscle weakness, decreased muscle mass, body aches, neck pain, numbness, radiating pain into limb, stiffness, tingling or other Skin Skin: No acne, hair loss, change in hair, nail changes, boil, change in skin color, dry skin, redness, excessive hair growth, yellowing of the skin, lesions, itching, rash, skin pain, skin ulcer, sores, skin swelling, wounds or other Breast Breast: No other Neuro Neurology: No frequent falls, weakness, visual disturbances, abnormal hearing, headache(s), abnormal walking, numbness or tingling Psych Psychiatric: No abnormal sleep pattern, No change in appetite Endo Endocrine: Positive for fatigue; no other or excessive sweating Aller/Imm Allergy/Immunologic: No lip swelling, tongue swelling, throat swelling, wheezing or itchy eyes Assessment AND Plan Problems 1. Type 2 diabetes mellitus without complication, without long-term current use of insulin E11.9 2. Tobacco abuse Z72.0 Plan Patient reports elevated BG readings. No medical records or jc accompanies patient. Discussed pathophysiology of diabetes and self care. Instructed on BG reading schedule and importance of. I have ask pt to check her BG when she feels her worst to determine if BG is possibly lower or extremely high. Is eating a bland diet for her stomach issues. Not high in carbs. Control portions Food selections should be healthy Choose more low carb vegetables Avoid snacks and desserts. Drink water Exercise daily Eat more fresh foods, not canned or processed Eat more slowly Will have patient obtain data and RTC for further evaluation Patient Instructions Monitor BG in pairs, before you eat and 2 hours after Make diet log of your food intake RTC 2 weeks Orders Orders: Medications Discontinued: Plan Detail Additional Comments 1. Please schedule follow up in 2-3 weeks 2. Lab work one week before appointment. 3. Discussed importance of regular exercise and recommend starting or continuing a regular exercise program for good health. 4. The patient was encouraged to lose weight for good health 5. The importance of monitoring blood sugar regularly was reviewed. 6. The importance of monitoring the HBA1c level regularly was reviewed. 7. The importance of prper foot care and regularly checking feet to prevent sores and loss of limbs was reviewed. 8. The importance of keeping BP at or below 130/80 to prevent stroke, heart attacks, kidney failure, blindness was reviewed. Spent approximately 60 minutes with patient with over 50% of time spent in discussion and counseling regarding medication adjustment, symptoms and treatment of hypoglycemia, diet adherence, and checking BG before driving. Coding Level of Care Code Off vis,new,level 4 Diagnoses Type 2 diabetes mellitus without complication, without long- term current use of insulin E11.9 Diabetes mellitus longterm insulin use: without terminal gauger supervisor use Tobacco abuse Z72.0 Time Spent (min) 60 Depression Screen PHQ-2/9 PHQ-2 Over the last 2 weeks, how often have you been bothered by any of the following problems? 1. Little interest or pleasure in doing things: nearly every day 2. Feeling down, depressed, or hopeless: nearly every day Total score: 6 If score is 2 or greater, continue 3. Trouble falling or staying asleep, or sleeping too much: nearly every day 4. Feeling tired or having little energy: nearly every day 5. Poor appetite or overeating: nearly every day 6. Feeling bad about yourself - or that you are a failure or have let yourself and your family down: nearly every day 7. Trouble concentrating on things, such as reading the newspaper or watching television: nearly every day 8. Moving or speaking so slowly that other people could have noticed? - Or the opposite - being so fidgety or restless that you have been moving around a lot more than usual: nearly every day 9. Thoughts that you would be better off or of hurting yourself in some way: nearly every day Total score: 27 If you checked off any problems, how difficult have these problems made it for you to do your work, take care of things at home, or get along with other people?: extremely difficult Source: Developed by Drs. Manolo Chand, Melissa Cantrell, Danielito Breen and colleagues, with an educational andrei from [employer]. Scoring: Total Score Depression Severity Action 1-4 Minimal depression No action needed 5-9 Mild depression Repeat PHQ-9 at follow up 10-14 Moderate depression Make tx plan,consider counseling, fup, prescription 11/19/17 0858 <Electronically signed by Veronica ARDON> Date Veronica ARDON Cosigner Signature: Date (if applicable) CC: AMYLASE Collected: 11/10/2017 Status: F Source: TRENT 1:45 PM [facility] REPOSITORY TYPE CODE TESTS RESULT OUT OF REFERENCE UNITS RANGE LAB AMYL 30-104 U/L Amylase 43 Performed By: #### AMYL, HFP, LIPA, CBCDIF #### [facility] [address] [place] [address] HEPATIC FUNCTN PANEL Collected: 11/10/2017 Status: F Source: TRENT 1:45 PM [facility] REPOSITORY TYPE CODE TESTS RESULT OUT OF REFERENCE UNITS RANGE LAB ALB 3.9-4.9 g/dL Albumin 4.1 LAB TBIL 0.2-1.3 mg/dL Bilirubin, Total 0.2 LAB CBIL <0.2 mg/dL Bilirubin,Conjuga <0.2 chirag LAB ALKP 32-117 U/L Alkaline Phosphatase 72 LAB AST 13-35 U/L AST 15 LAB ALT 7-38 U/L ALT 15 LAB TP 6.3-8.0 g/dL Protein, Total 7.2 Performed By: #### AMYL, HFP, LIPA, CBCDIF #### [facility] [address] [place], [place] [address] LIPASE Collected: 11/10/2017 Status: F Source: TRENT 1:45 PM [facility] REPOSITORY TYPE CODE TESTS RESULT OUT OF REFERENCE UNITS RANGE LAB LIPA 16-61 U/L Lipase 25 Performed By: #### AMYL, HFP, LIPA, CBCDIF #### [facility] [place] [address] CBC AND DIFFERENTIAL Collected: 11/10/2017 Status: F Source: TRENT 1:45 PM [facility] REPOSITORY TYPE CODE TESTS RESULT OUT OF REFERENCE UNITS RANGE LAB WBC 3.70-11.00 k/uL WBC High 14.63 LAB RBC 3.90-5.20 m/uL RBC High 5.21 LAB HGB 11.5-15.5 g/dL High Hemoglobin 15.7 LAB HCT 36.0-46.0 % High Hematocrit 48.2 LAB MCV 80.0-100.0 fL MCV 92.5 LAB MCH 26.0-34.0 pG MCH 30.1 LAB MCHC 30.5-36.0 g/dL MCHC 32.6 LAB RDWCV 11.5-15.0 % RDW-CV 12.8 LAB PLTCT 150-400 k/uL Platelet Count 359 LAB MPV 9.0-12.7 fL MPV 10.6 LAB ANEUT % Neut% 69.3 LAB AANEUT 1.45-7.50 k/uL Abs Neut High 10.14 LAB ALYMP % Lymph% 25.2 LAB AALYMP 1.00-4.00 k/uL Abs Lymph 3.69 LAB AMONO % [place]% 4.9 LAB AAMONO <0.87 k/uL Abs [place] 0.71 LAB AEOS % Eosin% 0.3 LAB AAEOS <0.46 k/uL Abs Eosin 0.04 LAB ABASO % Baso% 0.3 LAB AABASO <0.11 k/uL Abs Baso 0.05 LAB AUNRBC 0 /100 WBC NRBCs High 0.1 LAB ABNRBC <0.01 k/uL Absolute High nRBC 0.01 LAB DTYP DTYPE Auto Diff Performed By: #### AMYL, HFP, LIPA, CBCDIF #### [facility] [address] [place], [place] [address] PROGRESS Observed: 11/10/2017 Status: COMPLETED Source: TRENT 1:22 PM [facility] REPOSITORY HNO ID: [id number] Author: Kiara (Instructional Technology Specialist) NASEEM Hendricks.CENTRAL COMMUNICATIONS SPECIALIST Service: (none) Author Type: Nurse Practitioner Type: Progress Notes Filed: 11/10/2017 1:47 PM Note Text: Ivet Valero a 62 year old female who is returning for follow up regarding epigastric pain and nausea. I saw the patient in consultation on 10/28/17 for reported epigastric pain. That note has been reviewed. The patient was seen by Dr. pSicer for upper endoscopy 09/18/17. The procedure report has been reviewed. It was unremarkable. The patient had a CT of the abdomen and pelvis 10/07/17 that has been reviewed. Impression showed a small hiatal hernia, mild diverticulosis and fatty liver. The patient had a gastric emptying study on 11/07/17. IMPRESSION: ACCELERATED RATE OF GASTRIC EMPTYING OF SOLID MEAL. Presenting complaint: The patient presents today reporting that her stomach feels patel later in the day. She is more uncomfortable. Minimal improvement with increasing pantoprazole to 40mg a day. The patient had a cholecystectomy about seven years ago. No sign of acid refluxing in any of the studies/procedures. REVIEW OF SYSTEMS: GENERAL: No weight loss, malaise or fevers GI: The patient states that her appetite has been adequate. She does not get hungry. There has been some nausea, some vomiting. She denies dysphagia and denies odynophagia. There has not been indigestion or heartburn. There has partially been regurgitation. Bowel habits have been regular. There has not been diarrhea. There has partially been constipation. The patient denies rectal bleeding. There has not been melena. No new or worsening abdominal pain. All other reviewed and negative other than HPI. 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 - Depressive disorder, not elsewhere classified - DM (diabetes mellitus) (HCC) - Fibromyalgia - Migraine with aura, without mention of intractable migraine without mention of status migrainosus - Panic disorder without agoraphobia had hx of failed urine screen - Recurrent UTI - Tobacco use disorder PAST SURGICAL HISTORY Procedure Laterality Date - CHOLECYSTECTOMY - EGD W/O OR W/BRUSH/WASH 12/06/2015 EGD - LIGATE FALLOPIAN TUBE Tubal ligation - PAST SURGICAL HISTORY OF Left 03/2014 ANKLE FRACTURE REPAIR - S SLING BLADDER 2012 AND - TOTAL ABDOM HYSTERECTOMY Hysterectomy, REJI FAMILY HISTORY Problem Relation Age of Onset - Hypertension Mother Current Outpatient Prescriptions: insulin glargine (TOUJEO) 300 unit/mL (1.5 mL) inpn Inject 22 Units subcutaneously every morning. E11.9 Disp: 3 Pen Rfl: 5 promethazine (PHENERGAN) 25 mg tablet Take 1 tablet by mouth every 6 hours as needed. Disp: 42 tablet Rfl: 1 omeprazole (PRILOSEC) 20 mg capsule Take 2 capsules by mouth daily before breakfast. Disp: 60 capsule Rfl: 3 DULoxetine (CYMBALTA) 60 mg capsule TAKE TWO CAPSULES BY MOUTH ONCE DAILY Disp: Rfl: 0 promethazine (PHENERGAN) 25 mg suppository 1 Suppository by RECTAL route every 6 hours as needed. Disp: 12 Suppository Rfl: 0 Blood-Glucose Meter (BLOOD GLUCOSE MONITORING) monitoring kit 1 Each as needed. E11.9 Disp: 1 Each Rfl: 0 blood sugar diagnostic (BLOOD GLUCOSE TEST) test strip Test blood sugar twice daily. E11.9 Disp: 50 Strip Rfl: 3 albuterol HFA (VENTOLIN HFA) 90 mcg/actuation inhaler Inhale 2 Puffs as instructed every 4 hours as needed. Disp: 1 Inhaler Rfl: 0 Insulin Sellers, Disposable, 32 gauge x 5/16 ndle Use once daily with insulin Disp: 100 Each Rfl: 3 LORazepam (ATIVAN) 0.5 mg tab Take 0.5 mg by mouth twice daily as needed. Disp: Rfl: 2 Lancets lancets Check blood sugar twice daily Disp: 100 Each Rfl: 3 albuterol (PROVENTIL) 2.5 mg /3 mL (0.083 %) nebulizer solution Use 2.5 mg via nebulizer every 4 hours as needed for Wheezing/Shortness of Breath. Disp: Rfl: nystatin (MYCOSTATIN) cream Apply 1 application to affected area twice daily. Disp: 45 g Rfl: 0 pregabalin (LYRICA) 150 mg capsule Take 1 capsule by mouth three times daily. Disp: 90 capsule Rfl: 5 amitriptyline (ELAVIL) 25 mg tablet Take 1 tablet by mouth daily at bedtime. Disp: 30 tablet Rfl: 5 fluticasone (FLONASE) 50 mcg/actuation nasal spray Use 2 Sprays in each nostril once daily. Rinse mouth after use. Disp: 1 Bottle Rfl: 11 No current facility-administered medications for this visit. SOCIAL HISTORY: Reviewed. PHYSICAL EXAMINATION: Blood pressure 139/87, pulse 101, height 168.9 cm (5' 6.5), weight 90.1 kg (198 lb 9.6 oz). General Appearance: Well appearing, alert, in no acute distress, well-hydrated, well nourished.. Skin: Skin color, texture, turgor normal, no suspicious rashes or lesions. Eyes: Anicteric sclera. Pupils are equally round and reactive to light. Extraocular movements are intact. . Lungs: Lungs clear to auscultation. No wheezing, rhonchi, rales. Heart: RRR without murmur, gallop, or rubs. No ectopy. Abdomen: Abdomen soft, non-tender. Bowel sounds normal. No masses, organomegaly. Extremities: No deformities, edema, skin discoloration, clubbing or cyanosis. Good capillary refill. . Impression: nausea - etiology unclear. Plan: Labs. Continue current medications. Keep the appointment with TAE. I have personally interviewed and examined this patient. I have reviewed the information that the MA entered for this encounter. Greater than 25 minutes total time used this visit to review old chart, review new information, update current history and evaluate patient. A majority of the time was spent in discussion and counseling to formulate the plan. Kiara Hendricks RN COFFEE ROASTER HELPER.SINGH [place]AG[place] Observed: 11/10/2017 Status: COMPLETED Source: TRENT 1:20 PM [facility] REPOSITORY [facility] IVET VALERO ([id number]) 1955 F Date Time Provider Department 11/10/17 1:20 PM KIARA HENDRICKS ([facility]) [facility] During your visit today, we recorded the following information about you: Pulse Blood pressure Weight Height 101/minute 139/87 90.1 kg 1.689 m Kiara Hendricks RN APRN.RAE WINTERS 11/10/2017 1:47 PM Signed Ivet Valero a 62 year old female who is returning for follow up regarding epigastric pain and nausea. I saw the patient in consultation on 10/28/17 for reported epigastric pain. That note has been reviewed. The patient was seen by Dr. Spicer for upper endoscopy 09/18/17. The procedure report has been reviewed. It was unremarkable. The patient had a CT of the abdomen and pelvis 10/07/17 that has been reviewed. Impression showed a small hiatal hernia, mild diverticulosis and fatty liver. The patient had a gastric emptying study on 11/07/17. IMPRESSION: ACCELERATED RATE OF GASTRIC EMPTYING OF SOLID MEAL. Presenting complaint: The patient presents today reporting that her stomach feels patel later in the day. She is more uncomfortable. Minimal improvement with increasing pantoprazole to 40mg a day. The patient had a cholecystectomy about seven years ago. No sign of acid refluxing in any of the studies/procedures. REVIEW OF SYSTEMS: GENERAL: No weight loss, malaise or fevers GI: The patient states that her appetite has been adequate. She does not get hungry. There has been some nausea, some vomiting. She denies dysphagia and denies odynophagia. There has not been indigestion or heartburn. There has partially been regurgitation. Bowel habits have been regular. There has not been diarrhea. There has partially been constipation. The patient denies rectal bleeding. There has not been melena. No new or worsening abdominal pain. All other reviewed and negative other than HPI. 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 - Depressive disorder, not elsewhere classified - DM (diabetes mellitus) (HCC) - Fibromyalgia - Migraine with aura, without mention of intractable migraine without mention of status migrainosus - Panic disorder without agoraphobia had hx of failed urine screen - Recurrent UTI - Tobacco use disorder PAST SURGICAL HISTORY Procedure Laterality Date - CHOLECYSTECTOMY - EGD W/O OR W/BRUSH/WASH 12/06/2015 EGD - LIGATE FALLOPIAN TUBE Tubal ligation - PAST SURGICAL HISTORY OF Left 03/2014 ANKLE FRACTURE REPAIR - S SLING BLADDER 2012 ANDamp; - TOTAL ABDOM HYSTERECTOMY Hysterectomy, REJI FAMILY HISTORY Problem Relation Age of Onset - Hypertension Mother Current Outpatient Prescriptions: insulin glargine (TOUJEO) 300 unit/mL (1.5 mL) inpn Inject 22 Units subcutaneously every morning. E11.9 Disp: 3 Pen Rfl: 5 promethazine (PHENERGAN) 25 mg tablet Take 1 tablet by mouth every 6 hours as needed. Disp: 42 tablet Rfl: 1 omeprazole (PRILOSEC) 20 mg capsule Take 2 capsules by mouth daily before breakfast. Disp: 60 capsule Rfl: 3 DULoxetine (CYMBALTA) 60 mg capsule TAKE TWO CAPSULES BY MOUTH ONCE DAILY Disp: Rfl: 0 promethazine (PHENERGAN) 25 mg suppository 1 Suppository by RECTAL route every 6 hours as needed. Disp: 12 Suppository Rfl: 0 Blood-Glucose Meter (BLOOD GLUCOSE MONITORING) monitoring kit 1 Each as needed. E11.9 Disp: 1 Each Rfl: 0 blood sugar diagnostic (BLOOD GLUCOSE TEST) test strip Test blood sugar twice daily. E11.9 Disp: 50 Strip Rfl: 3 albuterol HFA (VENTOLIN HFA) 90 mcg/actuation inhaler Inhale 2 Puffs as instructed every 4 hours as needed. Disp: 1 Inhaler Rfl: 0 Insulin Sellers, Disposable, 32 gauge x 5/16ANDquot; ndle Use once daily with insulin Disp: 100 Each Rfl: 3 LORazepam (ATIVAN) 0.5 mg tab Take 0.5 mg by mouth twice daily as needed. Disp: Rfl: 2 Lancets lancets Check blood sugar twice daily Disp: 100 Each Rfl: 3 albuterol (PROVENTIL) 2.5 mg /3 mL (0.083 %) nebulizer solution Use 2.5 mg via nebulizer every 4 hours as needed for Wheezing/Shortness of Breath. Disp: Rfl: nystatin (MYCOSTATIN) cream Apply 1 application to affected area twice daily. Disp: 45 g Rfl: 0 pregabalin (LYRICA) 150 mg capsule Take 1 capsule by mouth three times daily. Disp: 90 capsule Rfl: 5 amitriptyline (ELAVIL) 25 mg tablet Take 1 tablet by mouth daily at bedtime. Disp: 30 tablet Rfl: 5 fluticasone (FLONASE) 50 mcg/actuation nasal spray Use 2 Sprays in each nostril once daily. Rinse mouth after use. Disp: 1 Bottle Rfl: 11 No current facility-administered medications for this visit. SOCIAL HISTORY: Reviewed. PHYSICAL EXAMINATION: Blood pressure 139/87, pulse 101, height 168.9 cm (5' 6.5ANDquot;), weight 90.1 kg (198 lb 9.6 oz). General Appearance: Well appearing, alert, in no acute distress, well-hydrated, well nourished.. Skin: Skin color, texture, turgor normal, no suspicious rashes or lesions. Eyes: Anicteric sclera. Pupils are equally round and reactive to light. Extraocular movements are intact. . Lungs: Lungs clear to auscultation. No wheezing, rhonchi, rales. Heart: RRR without murmur, gallop, or rubs. No ectopy. Abdomen: Abdomen soft, non-tender. Bowel sounds normal. No masses, organomegaly. Extremities: No deformities, edema, skin discoloration, clubbing or cyanosis. Good capillary refill. . Impression: nausea - etiology unclear. Plan: Labs. Continue current medications. Keep the appointment with BJ. I have personally interviewed and examined this patient. I have reviewed the information that the MA entered for this encounter. Greater than 25 minutes total time used this visit to review old chart, review new information, update current history and evaluate patient. A majority of the time was spent in discussion and counseling to formulate the plan. Kiara Hendricks RN COFFEE ROASTER HELPER.SINGH Hendricks RN COFFEE ROASTER HELPER.SINGH, COFFEE ROASTER HELPER.SINGH 11/10/2017 1:42 PM Signed Continue current medications. We will call you tomorrow with the results of the blood work. Keep your appointment with BJ. Referring Provider: KIARA HENDRICKS ([facility]) [[id number]] Allergies As of Date: 11/10/2017 Noted Allergy Reaction PENICILLINS 05/25/2008 4 - Hives SULFA (SULFONAMIDE ANTIBIOTICS) 09/19/2016 2 - Rash 14 - Other: See Comments Comments: Blisters and sore in throat Date Reviewed: 11/10/2017 Reviewed by: Geovanna Galindo MA - Fully Assessed Reason for Visit: follow up gastric emptying study [Other] Primary Visit Diagnosis:Non-intractable vomiting with nausea, unspecified vomiting type [R11.2] Order(s):AMYLASE BLD [SQAMYL] Order #: [id number] FUTURE LIPASE BLD [SQLIPA] Order #: [id number] FUTURE HEPATIC FUNCTION PNL [SQHFP] Order #: [id number] FUTURE promethazine (PHENERGAN) 25 mg suppository1 Suppository by RECTAL route every 6 hours as needed.Disp: 12 SuppositoryRfl: 0 promethazine (PHENERGAN) 25 mg tabletTake 1 tablet by mouth every 6 hours as needed.Disp: 42 tabletRfl: 1 Prescriptions as of 11/10/2017 Sig: INSULIN GLARGINE (U-300) 300 * Inject 22 Units subcutaneousl* PROMETHAZINE 25 MG RECTAL SUP* 1 Suppository by RECTAL route* PROMETHAZINE 25 MG TABLET Take 1 tablet by mouth every * OMEPRAZOLE 20 MG CAPSULE,LESIA* Take 2 capsules by mouth amber* DULOXETINE 60 MG CAPSULE,LESIA* TAKE TWO CAPSULES BY MOUTH ON* BLOOD-GLUCOSE METER KIT 1 Each as needed. E11.9 BLOOD SUGAR DIAGNOSTIC STRIPS Test blood sugar twice daily.* ALBUTEROL SULFATE HFA 90 MCG/* Inhale 2 Puffs as instructed * PEN NEEDLE, DIABETIC 32 GAUGE* Use once daily with insulin LORAZEPAM 0.5 MG TABLET Take 0.5 mg by mouth twice da* LANCETS Check blood sugar twice daily ALBUTEROL SULFATE 2.5 MG/3 ML* Use 2.5 mg via nebulizer ever* NYSTATIN 100,000 UNIT/GRAM TO* Apply 1 application to affect* PREGABALIN 150 MG CAPSULE Take 1 capsule by mouth three* AMITRIPTYLINE 25 MG TABLET Take 1 tablet by mouth daily * FLUTICASONE 50 MCG/ACTUATION * Use 2 Sprays in each nostril * Problem List As Of Date 11/10/2017 Noted Resolved TOBACCO USE DISORDER [F17.200] CERVICAL DISC DEGEN [M50.30] More... 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 We will call you tomorrow with the results of the blood work. Keep your appointment with BJ. Prescriptions ordered this encounter Disp Refills Start End PROMETHAZINE 25 MG RECTAL SUPPOSITORY 12 S* 0 11/10/2017 Route: RECTAL Si Suppository by RECTAL route every 6 hours as needed. PROMETHAZINE 25 MG TABLET 42 t* 1 11/10/2017 Route: ORAL Sig: Take 1 tablet by mouth every 6 hours as needed. Medications Discontinued During This Encounter promethazine (PHENERGAN) 25 mg suppo* 12 S* 0 10/14/2017 11/10/2017 Route: RECTAL Si Suppository by RECTAL route every 6 hours as needed. Disc: Reason for discontinue is not on file. promethazine (PHENERGAN) 25 mg tablet 42 t* 1 10/28/2017 11/10/2017 Route: ORAL Sig: Take 1 tablet by mouth every 6 hours as needed. Disc: Reason for discontinue is not on file. Encounter Status:Closed by KIARA HENDRICKS CNP on 11/10/17 NM GASTRIC EMPTYING Observed: 11/07/2017 Status: F Source: [place] SOLID 12:03 PM [facility] REPOSITORY * * *Final Report* * * DATE OF EXAM: Nov 07 2017 12:03PM WON 0017 - NM GASTRIC EMPTYING SOLID / PROCEDURE REASON: multiple diagnoses * * * * Physician Interpretation * * * * SOLID MEAL GASTRIC EMPTYING STUDY: CLINICAL HISTORY: To assess for abnormal gastric emptying of a solid meal. TECHNIQUE: 1.2 mCi Tc-99m sulfur colloid was given orally in a meal consisting of 4 oz Egg Beaters, 0.5 pieces toast, 30g strawberry jam, and 8 oz water, consumed over 5 to 10 minutes. FINDINGS: Solid study demonstrates 1% retention at 1hr, 0% retention at 2hr, and 0% retention at 4hr (normal emptying is 37-90% retention at 1hr, 30-60% retention at 2hr, and 0-10% retention at 4hr). There is accelerated emptying of gastric contents, with 1% retention at 1hr (rapid emptying is <30% retention at 1hr). IMPRESSION: ACCELERATED RATE OF GASTRIC EMPTYING OF SOLID MEAL. Production Hardener: JOHNIE Transcribe Date/Time: Nov 07 2017 12:37P Dictated by : TAMIA CERRATO MD This examination was interpreted and the report reviewed and electronically signed by: TAMIA CERRATO MD on Nov 07 2017 12:39PM EST [id number] Observed: 11/07/2017 Status: COMPLETED Source: [place] 8:00 AM [facility] REPOSITORY O ID: [id number] Author: Mandi Iggli Service: (none) Author Type: (none) Type: Progress Notes Filed: 11/07/2017 8:43 AM Note Text: RADIOLOGY SERVICE PROGRESS NOTE SERVICE DATE: 11/07/2017 SERVICE TIME: 8:43 AM PATIENT IDENTITY VERIFICATION COMPLETED USING TWO (2) METHODS: Patient confirmed name and Date of verbally. PATIENT GENDER DATA: .female : No ALLERGIES: Reviewed and unchanged MEDICATIONS REVIEWED: Yes PATIENT RELEVANT IMPLANT DATA REVIEWED: Not Applicable CREATININE: Creatinine Date Value Ref Range Status 08/20/2017 0.50 (L) 0.58 - 0.96 mg/dL Final 06/02/2017 0.53 (L) 0.58 - 0.96 mg/dL Final 09/18/2016 0.63 0.58 - 0.96 mg/dL Final eGFR-All Other Races Date Value Ref Range Status 08/20/2017 >60 . Final Comment: eGFR (Estimated GFR) Units of measure: mL/min/1.73 meters squared eGFR is derived from the reexpressed MDRD Study equation using the following parameters: serum creatinine, age, gender and race. The creatinine assay has been calibrated to be traceable to IDMS. An eGFR <60 mL/min/1.73m2 for >3 months is consistent with chronic kidney disease. Refer to KDOQI guidelines for clinical interpretation. In patients with unstable renal function, e.g. those with acute kidney injury, the eGFR may not accurately reflect actual GFR. eGFR- Date Value Ref Range Status 08/20/2017 >60 Final P.O.C.T. RESULTS: N/A November 07, [address] PERFORMED: No IV SITE: NM only - not applicable, oral or physician administered agents given to patient POST EXAM PIV STATUS: Not applicable PROCEDURE TYPE: NM GET: 1.2 mCi Tc99m SULFUR COLLOID was administered orally via 4 ounces of Egg Beaters,0.5 piece of toast, 0.25 ounce of jelly with 8 ounces of water orally ADMINISTRATION TIME: 08:10 PATIENT DISCHARGED TO: Ambulatory patient, left [place] department area. A Diagnostic radioactive procedure has taken place, with no further precautions necessary other than routine body substance precautions. More information regarding radiation safety can be found using this link: [email or web address] SIGNATURE: Mandi Greene [employer] PATIENT NAME: Ivet Valero DATE: November 07, 2017 TIME: 8:43 AM PAGER/CONTACT #: HISTORY PHYSICAL Observed: 10/28/2017 Status: COMPLETED Source: [place] 12:53 PM [facility] REPOSITORY HNO ID: [id number] Author: Kiara Hendricks Service: (none) Author Type: Nurse Practitioner Type: HANDP Filed: 10/28/2017 6:11 PM Note Text: Ivet Valero a 62 year old female who is a consultation requested by Dr. Cole for an opinion regarding epigastric pain. My final recommendations will be communicated back to the requesting physician by way of shared Medical record. The patient has been seen previously. The patient was seen by Dr. Garcia for upper endoscopy 12/06/15 for reported nausea. The procedure report has been reviewed and findings as follows: Impression:? ? - Normal esophagus. ? - A large amount of food (residue) in the stomach. ? - Erythematous mucosa in the antrum. Biopsied. ? - Normal examined duodenum. FINAL DIAGNOSIS Gastric antrum, biopsy - Chronic inactive gastritis. - Given the background of chronic gastritis, a Helicobacterpylori immunostain was performed and is negative for Helicobacter pylori organisms. Dr. Garcia requested a gastric emptying study, it appears that was completed at [facility] 03/06/16 and was reported as normal. Dr. Spicer ordered one last month, but the patient hasn't been able to get that done due to. Presenting complaint: The patient presents today stating that the nausea started a couple months ago. She tells me I can't get my diabetes under control and Dr. Cole thinks it's from that. The patient is going to see TAE Mejia, but not until the . Taking Zofran, but not as effective as promethazine - not lasting as long. The nausea is there from the time she wakes up full force. Notes that the nausea is limiting her activities of daily living. The patient tells me that she had an EGD by Dr. Spicer at the beginning of the year and was told everything was fine. She also tells me that she was sent from [facility] to [place] last year due to abdominal pain and had an ERCP due to a stone. Releases signed. REVIEW OF SYSTEMS: GENERAL: No weight loss, malaise or fevers GI: The patient states that her appetite has been adequate. She does get hungry. There has been some nausea, some vomiting. She denies dysphagia and denies odynophagia. There has partially been indigestion without heartburn. There has partially been regurgitation. Bowel habits have been regular. There has partially been diarrhea. There has not been constipation. The patient denies rectal bleeding. There has not been melena. Intermittent abdominal pain that is located in the epigastric region. PSYCH: Positive for anxiety: on medications ENDOCRINE: Positive for diabetes mellitus on insulin NEURO: No history of headaches, syncope, paralysis, seizures or tremors All other reviewed and negative other than HPI. 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 - Depressive disorder, not elsewhere classified - DM (diabetes mellitus) (HCC) - Fibromyalgia - Migraine with aura, without mention of intractable migraine without mention of status migrainosus - Panic disorder without agoraphobia had hx of failed urine screen - Recurrent UTI - Tobacco use disorder PAST SURGICAL HISTORY Procedure Laterality Date - CHOLECYSTECTOMY - EGD W/O OR W/BRUSH/WASH 12/06/2015 EGD - LIGATE FALLOPIAN TUBE Tubal ligation - PAST SURGICAL HISTORY OF Left 03/2014 ANKLE FRACTURE REPAIR - S SLING BLADDER 2012 AND - TOTAL ABDOM HYSTERECTOMY Hysterectomy, REJI FAMILY HISTORY Problem Relation Age of Onset - Hypertension Mother Current Outpatient Prescriptions: DULoxetine (CYMBALTA) 60 mg capsule TAKE TWO CAPSULES BY MOUTH ONCE DAILY Disp: Rfl: 0 insulin glargine (TOUJEO) 300 unit/mL (1.5 mL) inpn Inject 22 Units subcutaneously every morning. E11.9 Disp: 3 Pen Rfl: 5 ondansetron (ZOFRAN) 8 mg tablet Take 1 tablet by mouth every 8 hours as needed. Disp: 20 tablet Rfl: 1 promethazine (PHENERGAN) 25 mg suppository 1 Suppository by RECTAL route every 6 hours as needed. Disp: 12 Suppository Rfl: 0 Blood-Glucose Meter (BLOOD GLUCOSE MONITORING) monitoring kit 1 Each as needed. E11.9 Disp: 1 Each Rfl: 0 blood sugar diagnostic (BLOOD GLUCOSE TEST) test strip Test blood sugar twice daily. E11.9 Disp: 50 Strip Rfl: 3 albuterol HFA (VENTOLIN HFA) 90 mcg/actuation inhaler Inhale 2 Puffs as instructed every 4 hours as needed. Disp: 1 Inhaler Rfl: 0 Insulin Sellers, Disposable, 32 gauge x 5/16 ndle Use once daily with insulin Disp: 100 Each Rfl: 3 LORazepam (ATIVAN) 0.5 mg tab Take 0.5 mg by mouth twice daily as needed. Disp: Rfl: 2 Lancets lancets Check blood sugar twice daily Disp: 100 Each Rfl: 3 albuterol (PROVENTIL) 2.5 mg /3 mL (0.083 %) nebulizer solution Use 2.5 mg via nebulizer every 4 hours as needed for Wheezing/Shortness of Breath. Disp: Rfl: nystatin (MYCOSTATIN) cream Apply 1 application to affected area twice daily. Disp: 45 g Rfl: 0 pregabalin (LYRICA) 150 mg capsule Take 1 capsule by mouth three times daily. Disp: 90 capsule Rfl: 5 amitriptyline (ELAVIL) 25 mg tablet Take 1 tablet by mouth daily at bedtime. Disp: 30 tablet Rfl: 5 omeprazole (PRILOSEC) 20 mg capsule Take 1 capsule by mouth once daily. Disp: 90 capsule Rfl: 3 fluticasone (FLONASE) 50 mcg/actuation nasal spray Use 2 Sprays in each nostril once daily. Rinse mouth after use. Disp: 1 Bottle Rfl: 11 No current facility-administered medications for this visit. SOCIAL HISTORY: Patient is . She smokes 1 ppd andh reports her alcohol use as very rarely. PHYSICAL EXAMINATION: Blood pressure 139/72, pulse 113, height 171.5 cm (5' 7.5), weight 89.6 kg (197 lb 9.6 oz). General Appearance: Well appearing, alert, in no acute distress, well-hydrated, well nourished. Skin: Skin color, texture, turgor normal, no suspicious rashes or lesions. Eyes: Anicteric sclera. Oropharynx: Lips, mucosa, and tongue normal, teeth and gums normal, oropharynx normal. Neck: Supple, no adenopathy; thyroid symmetric, normal size. Lungs: Lungs clear to auscultation. No wheezing, rhonchi, rales. Heart: RRR without murmur. Abdomen: Abdomen soft, vague tenderness to palpation upper abdomen. No guarding or rebound. Bowel sounds normal. No masses, organomegaly. Extremities: No deformities, edema. Peripheral Pulses: Normal. Neurologic: Gait normal. Sensation grossly intact. Impression: nausea 2)epigastric pain Plan: Gastric emptying study. Increase omeprazole to 40 dly, add promethazine as needed. Follow up after GES. Patient agrees with this plan. I have personally interviewed and examined this patient. I have reviewed the information that the MA entered for this encounter. Greater than 30 minutes total time used this visit to review old chart, review new information, update current history and evaluate patient. A majority of the time was spent in discussion and counseling to formulate the plan. Kiara Hendricks RN CENTRAL COMMUNICATIONS SPECIALIST CNOV Observed: 10/28/2017 Status: COMPLETED Source: [place] 12:40 PM [facility] REPOSITORY [facility] IVET VALERO ([id number]) 1955 F Date Time Provider Department 10/28/17 12:40 PM KIARA HENDRICKS ([facility]) [facility] During your visit today, we recorded the following information about you: Pulse Blood pressure Weight Height 113/minute 139/72 89.6 kg 1.715 m Kiara Hendricks RN CENTRAL COMMUNICATIONS SPECIALIST 10/28/2017 6:11 PM Signed Ivet Valero a 62 year old female who is a consultation requested by Dr. Cole for an opinion regarding epigastric pain. My final recommendations will be communicated back to the requesting physician by way of shared Medical record. The patient has been seen previously. The patient was seen by Dr. Garcia for upper endoscopy 12/06/15 for reported nausea. The procedure report has been reviewed and findings as follows: Impression:? ? - Normal esophagus. ? - A large amount of food (residue) in the stomach. ? - Erythematous mucosa in the antrum. Biopsied. ? - Normal examined duodenum. FINAL DIAGNOSIS Gastric antrum, biopsy - Chronic inactive gastritis. - Given the background of chronic gastritis, a Helicobacterpylori immunostain was performed and is negative for Helicobacter pylori organisms. Dr. Garcia requested a gastric emptying study, it appears that was completed at [facility] 03/06/16 and was reported as normal. Dr. Spicer ordered one last month, but the patient hasn't been able to get that done due to. Presenting complaint: The patient presents today stating that the nausea started a couple months ago. She tells me ANDquot;I can't get my diabetes under control and Dr. Cole thinks it's from thatANDquot;. The patient is going to see TAE Mejia, but not until the . Taking Zofran, but not as effective as promethazine - not lasting as long. The nausea is there from the time she wakes up ANDquot;full forceANDquot;. Notes that the nausea is limiting her activities of daily living. The patient tells me that she had an EGD by Dr. Spicer at the beginning of the year and was told everything was fine. She also tells me that she was sent from [facility] to [place] last year due to abdominal pain and had an ERCP due to a stone. Releases signed. REVIEW OF SYSTEMS: GENERAL: No weight loss, malaise or fevers GI: The patient states that her appetite has been adequate. She does get hungry. There has been some nausea, some vomiting. She denies dysphagia and denies odynophagia. There has partially been indigestion without heartburn. There has partially been regurgitation. Bowel habits have been regular. There has partially been diarrhea. There has not been constipation. The patient denies rectal bleeding. There has not been melena. Intermittent abdominal pain that is located in the epigastric region. PSYCH: Positive for anxiety: on medications ENDOCRINE: Positive for diabetes mellitus on insulin NEURO: No history of headaches, syncope, paralysis, seizures or tremors All other reviewed and negative other than HPI. 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 - Depressive disorder, not elsewhere classified - DM (diabetes mellitus) (HCC) - Fibromyalgia - Migraine with aura, without mention of intractable migraine without mention of status migrainosus - Panic disorder without agoraphobia had hx of failed urine screen - Recurrent UTI - Tobacco use disorder PAST SURGICAL HISTORY Procedure Laterality Date - CHOLECYSTECTOMY - EGD W/O OR W/BRUSH/WASH 12/06/2015 EGD - LIGATE FALLOPIAN TUBE Tubal ligation - PAST SURGICAL HISTORY OF Left 03/2014 ANKLE FRACTURE REPAIR - S SLING BLADDER 2012 Dr.Proano Vila; - TOTAL ABDOM HYSTERECTOMY Hysterectomy, REJI FAMILY HISTORY Problem Relation Age of Onset - Hypertension Mother Current Outpatient Prescriptions: DULoxetine (CYMBALTA) 60 mg capsule TAKE TWO CAPSULES BY MOUTH ONCE DAILY Disp: Rfl: 0 insulin glargine (TOUJEO) 300 unit/mL (1.5 mL) inpn Inject 22 Units subcutaneously every morning. E11.9 Disp: 3 Pen Rfl: 5 ondansetron (ZOFRAN) 8 mg tablet Take 1 tablet by mouth every 8 hours as needed. Disp: 20 tablet Rfl: 1 promethazine (PHENERGAN) 25 mg suppository 1 Suppository by RECTAL route every 6 hours as needed. Disp: 12 Suppository Rfl: 0 Blood-Glucose Meter (BLOOD GLUCOSE MONITORING) monitoring kit 1 Each as needed. E11.9 Disp: 1 Each Rfl: 0 blood sugar diagnostic (BLOOD GLUCOSE TEST) test strip Test blood sugar twice daily. E11.9 Disp: 50 Strip Rfl: 3 albuterol HFA (VENTOLIN HFA) 90 mcg/actuation inhaler Inhale 2 Puffs as instructed every 4 hours as needed. Disp: 1 Inhaler Rfl: 0 Insulin Sellers, Disposable, 32 gauge x 5/16ANDquot; ndle Use once daily with insulin Disp: 100 Each Rfl: 3 LORazepam (ATIVAN) 0.5 mg tab Take 0.5 mg by mouth twice daily as needed. Disp: Rfl: 2 Lancets lancets Check blood sugar twice daily Disp: 100 Each Rfl: 3 albuterol (PROVENTIL) 2.5 mg /3 mL (0.083 %) nebulizer solution Use 2.5 mg via nebulizer every 4 hours as needed for Wheezing/Shortness of Breath. Disp: Rfl: nystatin (MYCOSTATIN) cream Apply 1 application to affected area twice daily. Disp: 45 g Rfl: 0 pregabalin (LYRICA) 150 mg capsule Take 1 capsule by mouth three times daily. Disp: 90 capsule Rfl: 5 amitriptyline (ELAVIL) 25 mg tablet Take 1 tablet by mouth daily at bedtime. Disp: 30 tablet Rfl: 5 omeprazole (PRILOSEC) 20 mg capsule Take 1 capsule by mouth once daily. Disp: 90 capsule Rfl: 3 fluticasone (FLONASE) 50 mcg/actuation nasal spray Use 2 Sprays in each nostril once daily. Rinse mouth after use. Disp: 1 Bottle Rfl: 11 No current facility-administered medications for this visit. SOCIAL HISTORY: Patient is . She smokes 1 ppd andh reports her alcohol use as very rarely. PHYSICAL EXAMINATION: Blood pressure 139/72, pulse 113, height 171.5 cm (5' 7.5ANDquot;), weight 89.6 kg (197 lb 9.6 oz). General Appearance: Well appearing, alert, in no acute distress, well-hydrated, well nourished. Skin: Skin color, texture, turgor normal, no suspicious rashes or lesions. Eyes: Anicteric sclera. Oropharynx: Lips, mucosa, and tongue normal, teeth and gums normal, oropharynx normal. Neck: Supple, no adenopathy; thyroid symmetric, normal size. Lungs: Lungs clear to auscultation. No wheezing, rhonchi, rales. Heart: RRR without murmur. Abdomen: Abdomen soft, vague tenderness to palpation upper abdomen. No guarding or rebound. Bowel sounds normal. No masses, organomegaly. Extremities: No deformities, edema. Peripheral Pulses: Normal. Neurologic: Gait normal. Sensation grossly intact. Impression: nausea 2)epigastric pain Plan: Gastric emptying study. Increase omeprazole to 40 dly, add promethazine as needed. Follow up after GES. Patient agrees with this plan. I have personally interviewed and examined this patient. I have reviewed the information that the MA entered for this encounter. Greater than 30 minutes total time used this visit to review old chart, review new information, update current history and evaluate patient. A majority of the time was spent in discussion and counseling to formulate the plan. NITIN Rucker CNP, RN CENTRAL COMMUNICATIONS SPECIALIST 10/28/2017 1:25 PM Addendum Increase omeprazole to two each morning before breakfast. Use the promethazine as needed for nausea. Please follow the instructions for the test that looks at how your stomach empties. It will take a day or two after the test for us to get the results. Call [phone], and ask to speak to a nurse in GI, if you have any questions or concerns in the mean time. Follow up with me a few days after the gastric emptying study. Referring Provider: RICCI COLE [[id number]] Allergies As of Date: 10/28/2017 Noted Allergy Reaction PENICILLINS 05/25/2008 4 - Hives SULFA (SULFONAMIDE ANTIBIOTICS) 09/19/2016 2 - Rash 14 - Other: See Comments Comments: Blisters and sore in throat Date Reviewed: 10/28/2017 Reviewed by: Geovanna Galindo MA - Fully Assessed Reason for Visit: Abdominal Pain [1] Primary Visit Diagnosis:Nausea [R11.0] Other Visit Diagnosis:Epigastric pain [R10.13] Order(s):IL GASTRIC EMPTYING SOLID [9121048] Order #: [id number] FUTURE promethazine (PHENERGAN) 25 mg tabletTake 1 tablet by mouth every 6 hours as needed.Disp: 42 tabletRfl: 1 omeprazole (PRILOSEC) 20 mg capsuleTake 2 capsules by mouth daily before breakfast.Disp: 60 capsuleRfl: 3 Prescriptions as of 10/28/2017 Sig: PROMETHAZINE 25 MG TABLET Take 1 tablet by mouth every * OMEPRAZOLE 20 MG CAPSULE,LESIA* Take 2 capsules by mouth amber* DULOXETINE 60 MG CAPSULE,LESIA* TAKE TWO CAPSULES BY MOUTH ON* INSULIN GLARGINE (U-300) 300 * Inject 22 Units subcutaneousl* PROMETHAZINE 25 MG RECTAL SUP* 1 Suppository by RECTAL route* BLOOD-GLUCOSE METER KIT 1 Each as needed. E11.9 BLOOD SUGAR DIAGNOSTIC STRIPS Test blood sugar twice daily.* ALBUTEROL SULFATE HFA 90 MCG/* Inhale 2 Puffs as instructed * PEN NEEDLE, DIABETIC 32 GAUGE* Use once daily with insulin LORAZEPAM 0.5 MG TABLET Take 0.5 mg by mouth twice da* LANCETS Check blood sugar twice daily ALBUTEROL SULFATE 2.5 MG/3 ML* Use 2.5 mg via nebulizer ever* NYSTATIN 100,000 UNIT/GRAM TO* Apply 1 application to affect* PREGABALIN 150 MG CAPSULE Take 1 capsule by mouth three* AMITRIPTYLINE 25 MG TABLET Take 1 tablet by mouth daily * FLUTICASONE 50 MCG/ACTUATION * Use 2 Sprays in each nostril * Problem List As Of Date 10/28/2017 Noted Resolved TOBACCO USE DISORDER [F17.200] CERVICAL DISC DEGEN [M50.30] More... 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 Use the promethazine as needed for nausea. Please follow the instructions for the test that looks at how your stomach empties. It will take a day or two after the test for us to get the results. Call [phone], and ask to speak to a nurse in GI, if you have any questions or concerns in the mean time. Follow up with me a few days after the gastric emptying study. Prescriptions ordered this encounter Disp Refills Start End PROMETHAZINE 25 MG TABLET 42 t* 1 10/28/2017 Route: ORAL Sig: Take 1 tablet by mouth every 6 hours as needed. OMEPRAZOLE 20 MG CAPSULE,DELAYED REL* 60 c* 3 10/28/2017 Route: ORAL Sig: Take 2 capsules by mouth daily before breakfast. Medications Discontinued During This Encounter ondansetron (ZOFRAN) 8 mg tablet 20 t* 1 10/20/2017 10/28/2017 Route: ORAL Sig: Take 1 tablet by mouth every 8 hours as needed. Disc: Changing Therapy/Dosage Form omeprazole (PRILOSEC) 20 mg capsule 90 c* 3 03/26/2017 10/28/2017 Route: ORAL Sig: Take 1 capsule by mouth once daily. Disc: Reason for discontinue is not on file. Follow-up and Disposition History Recorded Encounter Status:Closed by KIARA HENDRICKS CNP on 10/28/17 PROGRESS Observed: 10/20/2017 Status: COMPLETED Source: [place] 1:28 PM [facility] REPOSITORY [facility] ID: [id number] Author: Ricci Cole Service: (none) Author Type: Physician Type: Progress Notes Filed: 10/20/2017 1:51 PM Note Text: Patient presents with: Nausea Abdominal Pain HPI: Patient presents today for office visit for acute visit. Nursing Notes: Marylu Bullock Ma 10/20/2017 1:13 PM Signed Patient is complaining of severe nausea with abdominal pain since around 10/05/17. She has been running low grade fevers. She denies any vomiting or diarrhea. She has mild right sided lower back pain. She has been eating a bland, soft diet while also drinking Boost. She went to the Emergency dept 2 different times for the nausea. On 10/07/17, she was given IV fluids, Phenergan, and Ativan, then Zofran. On 10/13/17, she was found to have a UTI and given Cipro. Pt did not take the Cipro due to upset stomach. Patient has been seeing Dr. Spicer. She had an upper endoscopy about a month ago that showed a hiatal hernia. She was to have a gastric emptying study done, but has not completed due to nausea. Pt was advised by Dr Spicer to come see PCP for nausea and take Reglan. When patient went to see Dr Diaz, he told pt NOT to take Reglan and prescribed Zofran until she came in to PCP. Explained that the gastric emptying study could be important. She also have porrly controlled diabetes that could be causing her issues relating to diabetic gastroparesis. Discussed fact that I agree that reglan is a poor choice. The nausea has been chronic. Has had epigastric pain for six weeks. Has had recent ct scan. Had negative labs including lipase. Her urine culture was negative. She is seeing pharmacy to help with her sugars. Sugars are still up. No bloody or black stools. Drinking well. MEDICATIONS: Current Outpatient Prescriptions: promethazine (PHENERGAN) 25 mg suppository 1 Suppository by RECTAL route every 6 hours as needed. insulin glargine (TOUJEO) 300 unit/mL (1.5 mL) inpn Inject 18 Units subcutaneously every morning. E11.9 ondansetron (ZOFRAN) 8 mg tablet Take 1 tablet by mouth every 8 hours as needed. albuterol HFA (VENTOLIN HFA) 90 mcg/actuation inhaler Inhale 2 Puffs as instructed every 4 hours as needed. LORazepam (ATIVAN) 0.5 mg tab Take 0.5 mg by mouth twice daily as needed. albuterol (PROVENTIL) 2.5 mg /3 mL (0.083 %) nebulizer solution Use 2.5 mg via nebulizer every 4 hours as needed for Wheezing/Shortness of Breath. nystatin (MYCOSTATIN) cream Apply 1 application to affected area twice daily. pregabalin (LYRICA) 150 mg capsule Take 1 capsule by mouth three times daily. amitriptyline (ELAVIL) 25 mg tablet Take 1 tablet by mouth daily at bedtime. omeprazole (PRILOSEC) 20 mg capsule Take 1 capsule by mouth once daily. fluticasone (FLONASE) 50 mcg/actuation nasal spray Use 2 Sprays in each nostril once daily. Rinse mouth after use. DULoxetine (CYMBALTA) 60 mg capsule TAKE TWO CAPSULES BY MOUTH ONCE DAILY Blood-Glucose Meter (BLOOD GLUCOSE MONITORING) monitoring kit 1 Each as needed. E11.9 blood sugar diagnostic (BLOOD GLUCOSE TEST) test strip Test blood sugar twice daily. E11.9 Insulin Sellers, Disposable, 32 gauge x 5/16 ndle Use once daily with insulin Lancets lancets Check blood sugar twice daily sucralfate (CARAFATE) 1 gram tablet Take 1 tablet by mouth four times daily as needed. No current facility-administered medications for this visit. ALLERGIES: ALLERGIES Allergen Reactions - Penicillins Hives - Sulfa (Sulfonamide * Rash, Other: See Comments Blisters and sore in throat 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 - Depressive disorder, not elsewhere classified - DM (diabetes mellitus) (HCC) - Fibromyalgia - Migraine with aura, without mention of intractable migraine without mention of status migrainosus - Panic disorder without agoraphobia had hx of failed urine screen - Recurrent UTI - Tobacco use disorder PAST SURGICAL HISTORY Procedure Laterality Date - CHOLECYSTECTOMY - EGD W/O OR W/BRUSH/WASH 12/06/2015 EGD - LIGATE FALLOPIAN TUBE Tubal ligation - PAST SURGICAL HISTORY OF Left 03/2014 ANKLE FRACTURE REPAIR - S SLING BLADDER 2012 AND - TOTAL ABDOM HYSTERECTOMY Hysterectomy, REJI FAMILY HISTORY Problem Relation Age of Onset - Hypertension Mother Social History Marital status: Spouse name: Years of education: Number of children: Social History Main Topics Smoking status: Current Every Day Smoker Packs/day: 1.00 Years: 40.00 Types: Cigarettes Smokeless status: Never Used Comment: Pt has cut back to 3 cigarettes daily. Alcohol use: No Drug use: No Reviewed current medications, allergies, past medical history, surgical history, family history and social history today. REVIEW OF SYSTEMS All other reviewed and negative other than HPI. VITALS: BP 170/96 Pulse 76 Temp 37.5 ?C (99.5 ?F) (Tympanic) Resp 16 Wt 86.6 kg (191 lb) BMI 32.61 kg/m2 Last 4 Encounter Wt Readings: Date: Wt: 10/20/2017 86.6 kg (191 lb) 10/09/2017 87.8 kg (193 lb 8 oz) 09/10/2017 88 kg (194 lb) 08/20/2017 89.8 kg (198 lb) PHYSICAL EXAMINATION: General appearance: Well appearing, alert, in no acute distress, well-hydrated, well nourished. Skin: Skin color, texture, turgor normal, no suspicious rashes or lesions Head: Normocephalic, no masses, lesions, tenderness or abnormalities Lungs: Lungs clear to auscultation. No wheezing, rhonchi, rales Heart: RRR without murmur, gallop, or rubs. No ectopy Abdomen: Normal abdominal exam, Abdomen soft, non-tender. Bowel sounds normal. No masses, organomegaly, no rebound ASSESSMENT/PLAN: 1. Epigastric pain - ICD9: 789.06, ICD10: R10.13 (primary diagnosis) - continue current regimen. Avoid reglan. Continue prilosec. zofran prn. See gi. Explained some of her issues may be diabetic gastroparesis and the only thing that will help is getting serious about her DM - CONSULT TO GASTROENTEROLOGY 2. Type 2 diabetes mellitus without complication, without long-term current use of insulin (HCC) - ICD9: 250.00, ICD10: E11.9 increase does. Call list this week. - INSULIN GLARGINE (U-300) 300 UNIT/ML (1.5 ML) SUBCUTANEOUS PEN 3. Nausea - ICD9: 787.02, ICD10: R11.0 - check labs 4. Secondary polycythemia - ICD9: 289.0, ICD10: D75.1 - stop smoking 5. Tobacco use disorder - ICD9: 305.1, ICD10: F17.200 - Cessation encouraged. - Physiologic and physical aspects of tobacco addiction as well as strategies for quitting were discussed. - Counseling was given focusing on the harmful effects of this addiction especially given the patient's medical condition(s) which will be worsened because of the chemicals in tobacco. 6. Chronic bronchitis, unspecified chronic bronchitis type (HCC) - ICD9: 491.9, ICD10: J42 Ricci Cole MD RTO in six weeks and prn. DISCHARGE INSTRUCTION Observed: 10/13/2017 Status: F Source: [place] 1:33 PM [facility] REPOSITORY [facility] Medical Records Department [address] [place] [address] Discharge Instruction 10/13/17 1332 MR#: [id number] Acct: [id number] Name: IVET VALERO Rep #: [id number] : 1955 62 From: Chele Sutherland MD PCP: Ricci Cole MD Status: REG ER ED Disposition - Plan for ED Patient: Chief Complaint: General Illness Instructions: ED UTI Cystitis Female, ED Nausea Vomiting Prescriptions: Ciprofloxacin [Cipro] 500 mg PO BID #14 tab Referrals: Ricci Cole MD [Primary Care Provider] - What to do if you have Problems For any increased pain, shortness of breath, bleeding, nausea or vomiting, chest pain, or any unexpected problems, contact your Primary Care Provider. Call [facility] ([phone]) or report to the closest Emergency Room. Call 911 if necessary. 10/13/17 1333 <Electronically signed by Chele Sutherland MD> Date Chele Sutherland MD Cosigner Signature (If Indicated): Date CC: Ricci Cole MD EMERGENCY DEPARTMENT Observed: 10/13/2017 Status: F Source: [place] SUMMARY 1:31 PM [facility] REPOSITORY [facility] Medical Records Department [address] [place] [address] Emergency Department Summary 10/13/17 1328 MR#: [id number] Acct: [id number] Name: IVET VALERO Rep #: [id number] : 1955 62 From: Chele Sutherland MD PCP: Ricci Cole MD Status: REG ER - ER Visit Summary Date of Service: 10/13/17 Chief Complaint: Nausea History of Present Illness: The patient is a 62 F who presents with nausea. She has a history of chronic nausea but it is worse for the past 8 days. She had diarrhea earlier but this has since resolved. She was recently seen in the emergency department for similar symptoms and had workup including a CT. She is also currently being worked up for gastroparesis. She reports cough and shortness of breath as well as bilateral ear pain and pressure. No fevers. No vomiting. Physical Examination: Afebrile heart rate 101 Patient appears very anxious Moist mucous membranes Tympanic membranes are clear Heart regular rhythm tachycardia Lungs are clear Abdomen soft nontender nondistended Alert Test Results: Laboratory studies are notable for white blood cell count 14.3. This is decreased from her prior labs and she appears to have a chronic leukocytosis. She also has 500 leukocyte esterase in the urine with 5-10 WBCs. This was also sent for culture. Chest x-ray and abdominal x-rays are notable for moderate fecal material but no acute process. Emergency Department Course and Treatment: She was treated with IV fluids Phenergan and Ativan. She is resting comfortably and reports symptomatic improvement on reevaluation. We will treat with Cipro. She will follow-up with her primary care physician. She understands to return for new or worsening symptoms. All questions answered at bedside patient comfortable with the plan. Treatment Plan: [] Disposition: Discharge Impression: UTI Chronic nausea Otalgia This note was generated with [employer] dictation software. It may contain incorrect words, spelling, and punctuation that were not noted in review of the chart prior to signing ED Disposition - Plan for ED Patient: Chief Complaint: General Illness Referrals: Ricci Cole MD [Primary Care Provider] - What to do if you have Problems For any increased pain, shortness of breath, bleeding, nausea or vomiting, chest pain, or any unexpected problems, contact your Primary Care Provider. Call [facility] ([phone]) or report to the closest Emergency Room. Call 911 if necessary. 10/13/17 1331 <Electronically signed by Chele Sutherland MD> Date Chele Sutherland MD Cosigner Signature (If Indicated): Date CC: Ricci Cole MD URINALYSIS, COMPLETE Collected: 10/13/2017 Status: F Source: [place] 12:34 PM [facility] REPOSITORY Order Comment: Order Date: 10/13/17 How was Urine Obtained? CLEAN CATCH TYPE CODE TESTS RESULT OUT OF RANGE REFERENCE UNITS LAB L400.3000 Yellow COLOR Normal Yellow LAB L400.3050 Clear Normal CLARITY Clear LAB L400.3200 Normal mg/dl High GLUCOSE, UR 1000 LAB L400.3300 Negative mg/dL Normal BILIRUBIN URINE Negative LAB L400.3400 Negative mg/dl High 5 KETONE UR LAB L400.3465 1.002-1.030 Normal SP.GR. DIPSTX 1.010 LAB L400.3550 5.0 - 8.0 pH UR Normal 8.0 LAB L400.3600 Negative mg/dl PROT Normal DIPSTX Negative LAB L400.3700 Normal mg/dl Normal UROBILI Normal LAB L400.3750 Negative Normal NITRITE UR Negative LAB L400.3780 Negative /ul High 10 OCCULT BLOOD-UR LAB L400.3800 Negative /ul High LEUK ESTERASE 500 LAB L400.4050 0-5 /hpf WBC Normal 5-10 SEEN LAB L400.4100 0-5 /hpf 0 Normal RBC-UA SEEN LAB L400.4150 5-10 /hpf SQUAM Normal EPI 0-5 SEEN LAB L400.4300 None Seen /hpf Normal BACTERIA RARE LAB L400.4350 <or=2+ /hpf 0 Normal MUCUS, URINE SEEN Performed By: #### L400.0001 #### [facility] [address], [place], [address] Observed: 10/13/2017 Status: F Source: [place] CULTURE, URINE 12:34 PM [facility] REPOSITORY Order Date: 10/13/17 Has pt arrived? Y Urine Culture Below infection level. ORGANISM 1: Presumptive E. coli Ina Count 1000-10,000 Performed By: #### M100.0650 #### [facility] [address] [place], [address] CBC W/DIFF, AUTOMATED Collected: 10/13/2017 Status: F Source: [place] 11:24 AM [facility] REPOSITORY TYPE CODE TESTS RESULT OUT OF RANGE REFERENCE UNITS LAB L100.1000 4.4-11.0 K/mm3 High WBC 14.3 LAB L100.1200 4.2-5.4 M/mm3 Normal RBC 5.06 LAB L100.1300 12.0-15.0 g/dl High HGB 15.7 LAB L100.1400 37-47 % Normal HCT 44.4 LAB L100.1500 81-99 fL Normal MCV 87.7 LAB L100.1600 27.0-32.0 pg Normal MCH 31.0 LAB L100.1700 32-36 g/gl Normal MCHC 35.4 LAB L100.1810 11.6-14.6 % Normal RDW CV 13.2 LAB L100.1820 35.1-43.9 fl Normal RDW SD 42.1 LAB L100.1900 150-450 K/mm3 Normal PLT 355 LAB L100.2000 6.2-12.0 fl Normal MPV 9.5 LAB L100.2100 47-70 % Normal NEUT% 59.0 LAB L100.2200 19-41 % Normal LY% 33.1 LAB L100.2300 0-10 % Normal MONO% 6.9 LAB L100.2400 0-5 % Normal EO% 0.3 LAB L100.2500 0-1 % Normal BASO% 0.4 LAB L100.2550 0.0-0.9 % Normal IM GRAN % 0.300 Result Comment: IG% - Immature Granulocytes (promyelocytes, myelocytes and metamyelocytes) > 1% indicates that a LEFT SHIFT is Present. LAB L100.2620 2.0-7.7 X10 3/uL High Absolute Neut 8.4 LAB L100.2720 0.83-4.51 X10 3/ul High Absolute Lymph 4.74 Performed By: #### L100.0100 #### [facility] [address] [place], [address] BASIC METABOLIC Collected: 10/13/2017 Status: F Source: [place] PROFILE ([facility]) 11:24 AM [facility] REPOSITORY TYPE CODE TESTS RESULT OUT OF RANGE REFERENCE UNITS LAB L501.0100 74-106 mg/dL High GLU 323 Result Comment: Glucose result greater than or equal to 200 mg/dL suggests DIABETES MELLITUS per A.D.A. criteria. Please note revised GLUCOSE reference range effective 2017. LAB L501.1000 7-18 mg/dL Normal BUN 10 LAB L501.1100 0.55-1.02 mg/dL Normal CREAT,SERUM 0.84 Result Comment: The validity of the calculated GFR AND GFRAA in patients over 70 years has not been determined. Clinical correlation is essential. LAB L501.1110 >60 mL/min Normal EST GFR 74 Result Comment: Non- GFR Calc LAB L501.1115 >60 mL/min Normal EST GFR - AA 89 Result Comment: GFR Calc LAB L501.1255 ml/min Normal Estimated CRCL 71.85 LAB L501.1300 10-20 RATIO Normal BUN/CRE 11.9 LAB L501.2200 8.5-10 mg/dL Normal .1 CA 9.8 LAB L501.5300 136-14 mmol/L Normal 5 NA 136 LAB L501.5600 3.5-5. mmol/L Normal 1 K 3.9 LAB L501.5900 98-107 mmol/L Normal CL 104 LAB L501.6100 21.0-3 mmol/L Normal 2.0 CO2 22.0 LAB L501.6200 5-15 Normal GAP 10 Performed By: #### L500.2500, L500.4050, L501.2450 #### [facility] [address], [place], [id number] COMPREHENSIVE METABOLIC Collected: 10/13/2017 Status: F Source: [place] [facility] 11:24 AM [facility] REPOSITORY TYPE CODE TESTS RESULT OUT OF RANGE REFERENCE UNITS LAB L501.1500 6.4-8.2 g/dL Normal T PROT 7.3 LAB L501.1800 3.2-5.0 g/dL Normal ALB 3.7 LAB L501.1950 2.2-4.2 g/dL Normal GLOB 3.6 LAB L501.2000 0.9-2.4 RATIO Normal A/G 1.0 LAB L501.4100 15-37 U/L Low AST 11 LAB L501.4305 45-117 U/L Normal ALK P 75 LAB L501.4405 13-56 U/L Normal ALT 23 Result Comment: Please note revised ALT reference range effective 2017. LAB L501.4600 0.20-1.00 mg/dL Normal T BILI 0.60 Performed By: #### L500.2500, L500.4050, L501.2450 #### [facility] [address] [place], [place], [id number] LIPASE Collected: 10/13/2017 Status: F Source: [place] 11:24 AM [facility] REPOSITORY TYPE CODE TESTS RESULT OUT OF RANGE REFERENCE UNITS LAB L501.2450 73-393 U/L Normal LIPASE 118 Performed By: #### L500.2500, L500.4050, L501.2450 #### [facility] [address] [place], [address] ABD INC DECUB Observed: 10/13/2017 Status: F Source: [place] AND/OR ERECT 11:13 AM [facility] REPOSITORY [facility] Imaging Services [address] [place] [address] Abd Inc Decub and/or Erect MR#: [id number] Acct: [id number] Name: IVET VALERO Rep #: [id number] : 1955 F 62 From: Jose Angel Tim MD PCP: Ricci Cole MD Status: REG ER Study: Abd Inc Decub and/or Erect Date of Exam: 10/13/17 Exam# [id number] Ordering Dr: Chele Sutherland MD STUDY: X-RAY - ABDOMEN/PELVIS REASON FOR EXAM: Female, 62 years old. Nausea. TECHNIQUE: AP supine and upright views of the abdomen and pelvis. COMPARISON: None. FINDINGS: Normal visualized lung bases. There is a moderate amount of colonic fecal material. There is no demonstrated free abdominal air. The visualized liver, spleen and kidneys are grossly normal in size and morphology. Normal soft tissue structures. There are diffuse changes of the visualized lumbar spine. RAD/Abd Inc Decub and/or Erect IMPRESSION: Moderate amount of fecal material is seen in the colon. Electronically Signed: Jose Angel Tim MD at 12:16 EST Tel [phone], Service support , CC: Chele Sutherland MD; Ricci Cole MD Production Hardener: Signed CHEST PA AND LATERAL Observed: 10/13/2017 Status: F Source: [place] 11:12 AM [facility] HOSPITAL REPOSITORY [facility] Imaging Services [address] [place] [address] Chest PA and Lateral MR#: [id number] Acct: [id number] Name: IVET VALERO Rep #: [id number] : 1955 F 62 From: Jose Angel Tim MD PCP: Ricci Cole MD Status: REG ER Study: Chest PA and Lateral Date of Exam: 10/13/17 Exam# [id number] Ordering Dr: Chele Sutherland MD STUDY: X-RAY CHEST REASON FOR EXAM: Female, 62 years old. Cough. TECHNIQUE: PA and lateral views of the chest. COMPARISON: Comparison is made with prior study dated October 14, 2016. FINDINGS: The lungs are clear and expanded. There is no demonstrated pleural abnormality. Normal size heart. Normal mediastinum and karsten. Normal visualized pulmonary arteries. There is atherosclerotic tortuosity of the aortic arch and descending thoracic aorta. There are degenerative changes of the visualized thoracic spine. Normal visualized ribs, clavicles, and shoulders. There is no demonstrated abnormality of the visualized soft tissue structures of the upper abdomen. RAD/Chest PA and Lateral IMPRESSION: No acute abnormality is seen. Electronically Signed: Jose Angel Tmi MD at 13:48 EST Tel [phone], Service support , CC: Chele Sutherland MD; Ricci Cole MD Production Hardener: Signed 12 LEAD ELECTROCARDIOGRAM Observed: 10/09/2017 Status: F Source: [place] 12:59 PM [facility] HOSPITAL REPOSITORY [facility] Cardiovascular Services [address] [place] [address] 12 Lead EKG 10/07/17 0936 MR#: [id number] Acct: [id number] Name: IVET VALERO Rep #: [id number] : 1955 62 From: Jose Cat MD Attending Dr: Status: REG ER Ordering Dr: Мария Burnham Date: 10/07/17 Location: ED Sex: F C Admitted: Test Reason : ABNLPAIN Blood Pressure : / mmHG Vent. Rate : 099 BPM Atrial Rate : 099 BPM P-R Int : 160 ms QRS Dur : 094 ms QT Int : 346 ms P-R-T Axes : 046 -09 129 degrees QTc Int : 444 ms Normal sinus rhythm Nonspecific ST and T wave abnormality Abnormal ECG Confirmed by JOSE CAT MD ([id number]), scientific editor JAN VALENTIN ([id number]) on 10/09/2017 12:59:05 PM Referred By: HEMALATHA Confirmed By:JOSE CAT MD 10/09/17 1259 Date Jose Cat MD CC: Мария Burnham; Ricci Cole MD Signed PROGRESS Observed: 10/09/2017 Status: COMPLETED Source: [place] 10:27 AM [facility] REPOSITORY [facility] ID: [id number] Author: Vivian Diaz Service: (none) Author Type: Physician Type: Progress Notes Filed: 10/10/2017 8:18 AM Note Text: PATIENT NAME: Ivet Valero. CLINIC NO: [id number]. ATTENDING PHYSICIAN: Vivian Diaz MD. DATE OF SERVICE: 10/09/2017. ? DIAGNOSIS: Secondary polycythemia ?? HPI: This 62-year-old moderately obese female with history of chronic bronchitis, tobacco abuse who presented with chronic leukocytosis and polycythemia. ? The patient also has history of frequent recurrent urinary tract infection after previous surgery for prolapsed bladder. Patient also has a history of gastritis/duodenitis. Patient has no history of fever, chills or night sweats. She has chronic fatigue but no unexpected weight loss. Her recent chest x-ray showed no active disease or infection. She has smoked tobacco for 30 plus pack year, currently 1 half pack per day. No history of alcohol use. Patient denies frequent headaches, visual changes, or symptom of hyperviscosity. She has arthritic pain as well as myalgia along with chronic fatigue. Patient has difficulty sleeping/ insomnia which also exacerbate her symptom of fibromyalgia. She has been taking Ritalin recently for bipolar disorder. She recently complained of increased urinary frequency as well as dysuria. She has a chronic nonproductive cough which is not worse than before. Patient deny history of sleep apnea. She denied a history of hematuria, hemoptysis, or melanoma. She has no family history of cancer, or polycythemia. Interim history: Patient was in the emergency room recently because of nausea vomiting and diarrhea. She saw Dr. Spicer recently for abdominal pain and nausea and he started Mrs. Montalvo on Reglan. She was in the emergency room last week with diarrhea and dehydration. She was given Phenergan suppository and instructed to stop Reglan. She did feel better initially when they gave her Zofran in the ER. Patient cannot stop smoking because of anxiety problem. All medications AND allergies updated and reviewed by me. REVIEW OF SYSTEMS: ? CONSTITUTIONAL: No fevers, chills, nightsweats, unintended weight loss + chronic fatigue HEENT: Denies frequent or severe heaches, nasal congestion/sinus symptoms, problematic allergy problems. EYES: No diplopia or blurry vision. CARDIOVASCULAR: No chest pain, dyspnea, palpitations, orthopnea, PND, ankle edema. PULM: No dyspnea, + Chronic cough. GI: No dysphagia/odynophagia, problematic reflux, constipation, + diarrhea, changes in stool habits, hematochezia, melena. : urinary complaints, including urinary frequency and dysuria, No gross hematuria or pyuria. NEURO: No new balance problems, peripheral weakness/paresthesias or numbness of concern. MUSC-SKEL: No new joint pain, swelling, or erythema. PSY: No concerns regarding depression, + anxiety or panic. INTEGUMENTARY: No new skin changes (rash, new or changing mole, new growth) ? PHYSICAL EXAMINATION: 62-year-old obese female in no acute distress; Very anxious. BP 163/104 Pulse 115 Temp (Src) 99.1 (Oral) Wt 193 lb 8 oz (87.8kg) HEENT: Head is normocephalic, atraumatic. Sclerae white, conjunctivae pink. PEERL. EOMs are intact. Oropharynx is benign.with good dentition. LYMPHATICS: There is no palpable adenopathy in the neck, supraclavicular region, axillae, or groin. LUNGS: Lungs are clear to percussion and auscultation. increased AP diameter, no wheezing diminished breath sounds HEART: Heart is normal without murmurs, gallops, or rubs. ABDOMEN: obese, Soft and nontender without organomegaly. No masses can be palpated. EXTREMITIES: Are without edema. NEUROLOGIC: Exam is physiologic ? LABORATORY DATA: ? Component Latest Ref Rng AND Units 09/10/2017 10/09/2017 WBC, Alex 3.70 - 11.00 k/uL 15.25 (H) 15.80 (H) RBC, Hersey 3.90 - 5.20 m/uL 5.35 (H) 5.17 Hemoglobin, Alex 11.5 - 15.5 g/dL 16.0 (H) 15.8 (H) Hematocrit, Hersey 36.0 - 46.0 % 47.9 (H) 46.5 (H) MCV, Alex 80.0 - 100.0 fL 89.5 89.9 MCH, Hersey 26.0 - 34.0 pg 29.9 30.6 MCHC, Hersey 30.5 - 36.0 g/dL 33.4 34.0 RDW, Hersey 11.5 - 15.0 % 13.6 13.7 Platelet Cnt, Alex 150 - 400 k/uL 286 365 MPV, Hersey 9.0 - 12.7 fL 9.7 9.1 Absol Gran Count 1.45 - 7.50 k/uL 10.66 (H) 11.09 (H) Component Latest Ref Rng AND Units 09/10/2017 JAK2 Specimen Type Peripheral Blood JAK2 Result/Interpretation Result: JAK2 V617F Mutation Not Detected Molecular Path Review Reviewed by Meng Petit M.D., Ph.D ([id number]) Carboxyhemoglobin, Venous <2.0 % 5.9 (H) CRP <0.9 mg/dL 1.1 (H) Erythropoietin 4.7 - 28.6 MIU/mL 9.0 ASSESSMENT: 62-year-old female with chronic leukocytosis secondary to chronic bronchitis and tobacco abuse Secondary polycythemia secondary to tobacco abuse AND Carbon Monoxide toxicity ? PLAN: - I strongly encouraged patient follow-up with Dr. Cole regarding smoking cessation AND diabetes management. - Ritalin may be cause of, or contribute to her insomnia. Discontinue Ritalin. - Discontinue Reglan AND Phenergan and start Zofran 8mg every 8 hour as needed for nausea and follow-up with GI, Dr. Spicer. Vivian Diaz MD Cc: Dr. Godwin Spicer ALEX ABS GR + CBC Collected: 10/09/2017 Status: F Source: [place] 9:55 AM [facility] REPOSITORY TYPE CODE TESTS RESULT OUT OF REFERENCE UNITS RANGE LAB WWBC 3.70-11.00 k/uL Hersey High WBC 15.80 LAB WRBC 3.90-5.20 m/uL Alex RBC 5.17 LAB WHGB 11.5-15.5 g/dL Hersey High Hemoglobin 15.8 LAB WHCT 36.0-46.0 % Hersey High Hematocrit 46.5 LAB WMCV 80.0-100.0 fL Hersey MCV 89.9 LAB WMCH 26.0-34.0 pg Hersey MCH 30.6 LAB WMCHC 30.5-36.0 g/dL Alex MCHC 34.0 LAB WRDW 11.5-15.0 % Alex RDW 13.7 LAB WPLT 150-400 k/uL Alex Platelet Cnt 365 LAB WMPV 9.0-12.7 fL Hersey MPV 9.1 Result Comment: Test performed at: [facility], [address] [place] [address] Rd[address] [place] [address]. LAB ABGRAN 1.45-7.50 k/uL High Absol 11.09 Gran Count CNOVSP Observed: 10/09/2017 Status: COMPLETED Source: TRENT 9:50 AM [facility] REPOSITORY Visit (SP) Office (HEMAWS) IVET VALERO ([id number]) 1955 F Date Time Provider Department 2/15/18 9:50 AM VIVIAN DIAZ During your visit today, we recorded the following information about you: Temperature Pulse Blood pressure Weight 99.1 degrees 115/minute 163/104 87.8 kg Vivian Diaz MD 10/10/2017 8:18 AM Signed PATIENT NAME: Ivet Valero. CLINIC NO: [id number]. ATTENDING PHYSICIAN: Vivian Diaz MD. DATE OF SERVICE: 10/09/2017. ? DIAGNOSIS: Secondary polycythemia ?? HPI: This 62-year-old moderately obese female with history of chronic bronchitis, tobacco abuse who presented with chronic leukocytosis and polycythemia. ? The patient also has history of frequent recurrent urinary tract infection after previous surgery for prolapsed bladder. Patient also has a history of gastritis/duodenitis. Patient has no history of fever, chills or night sweats. She has chronic fatigue but no unexpected weight loss. Her recent chest x-ray showed no active disease or infection. She has smoked tobacco for 30 plus pack year, currently 1 half pack per day. No history of alcohol use. Patient denies frequent headaches, visual changes, or symptom of hyperviscosity. She has arthritic pain as well as myalgia along with chronic fatigue. Patient has difficulty sleeping/ insomnia which also exacerbate her symptom of fibromyalgia. She has been taking Ritalin recently for bipolar disorder. She recently complained of increased urinary frequency as well as dysuria. She has a chronic nonproductive cough which is not worse than before. Patient deny history of sleep apnea. She denied a history of hematuria, hemoptysis, or melanoma. She has no family history of cancer, or polycythemia. Interim history: Patient was in the emergency room recently because of nausea vomiting and diarrhea. She saw Dr. Spicer recently for abdominal pain and nausea and he started Mrs. Montalvo on Reglan. She was in the emergency room last week with diarrhea and dehydration. She was given Phenergan suppository and instructed to stop Reglan. She did feel better initially when they gave her Zofran in the ER. Patient cannot stop smoking because of anxiety problem. All medications ANDamp; allergies updated and reviewed by me. REVIEW OF SYSTEMS: ? CONSTITUTIONAL: No fevers, chills, nightsweats, unintended weight loss + chronic fatigue HEENT: Denies frequent or severe heaches, nasal congestion/sinus symptoms, problematic allergy problems. EYES: No diplopia or blurry vision. CARDIOVASCULAR: No chest pain, dyspnea, palpitations, orthopnea, PND, ankle edema. PULM: No dyspnea, + Chronic cough. GI: No dysphagia/odynophagia, problematic reflux, constipation, + diarrhea, changes in stool habits, hematochezia, melena. : urinary complaints, including urinary frequency and dysuria, No gross hematuria or pyuria. NEURO: No new balance problems, peripheral weakness/paresthesias or numbness of concern. MUSC-SKEL: No new joint pain, swelling, or erythema. PSY: No concerns regarding depression, + anxiety or panic. INTEGUMENTARY: No new skin changes (rash, new or changing mole, new growth) ? PHYSICAL EXAMINATION: 62-year-old obese female in no acute distress; Very anxious. BP 163/104 Pulse 115 Temp (Src) 99.1 (Oral) Wt 193 lb 8 oz (87.8kg) HEENT: Head is normocephalic, atraumatic. Sclerae white, conjunctivae pink. PEERL. EOMs are intact. Oropharynx is benign.with good dentition. LYMPHATICS: There is no palpable adenopathy in the neck, supraclavicular region, axillae, or groin. LUNGS: Lungs are clear to percussion and auscultation. increased AP diameter, no wheezing diminished breath sounds HEART: Heart is normal without murmurs, gallops, or rubs. ABDOMEN: obese, Soft and nontender without organomegaly. No masses can be palpated. EXTREMITIES: Are without edema. NEUROLOGIC: Exam is physiologic ? LABORATORY DATA: ? Component Latest Ref Rng ANDamp; Units 09/10/2017 10/09/2017 WBC, Hersey 3.70 - 11.00 k/uL 15.25 (H) 15.80 (H) RBC, Hersey 3.90 - 5.20 m/uL 5.35 (H) 5.17 Hemoglobin, Alex 11.5 - 15.5 g/dL 16.0 (H) 15.8 (H) Hematocrit, Alex 36.0 - 46.0 % 47.9 (H) 46.5 (H) MCV, Hersey 80.0 - 100.0 fL 89.5 89.9 MCH, Alex 26.0 - 34.0 pg 29.9 30.6 MCHC, Alex 30.5 - 36.0 g/dL 33.4 34.0 RDW, Hersey 11.5 - 15.0 % 13.6 13.7 Platelet Cnt, Hersey 150 - 400 k/uL 286 365 MPV, Alex 9.0 - 12.7 fL 9.7 9.1 Absol Gran Count 1.45 - 7.50 k/uL 10.66 (H) 11.09 (H) Component Latest Ref Rng ANDamp; Units 09/10/2017 JAK2 Specimen Type Peripheral Blood JAK2 Result/Interpretation Result: JAK2 V617F Mutation Not Detected Molecular Path Review Reviewed by Meng Petit M.D., Ph.D ([id number]) Carboxyhemoglobin, Venous ANDlt;2.0 % 5.9 (H) CRP ANDlt;0.9 mg/dL 1.1 (H) Erythropoietin 4.7 - 28.6 MIU/mL 9.0 ASSESSMENT: 62-year-old female with chronic leukocytosis secondary to chronic bronchitis and tobacco abuse Secondary polycythemia secondary to tobacco abuse ANDamp; Carbon Monoxide toxicity ? PLAN: - I strongly encouraged patient follow-up with Dr. Cole regarding smoking cessation ANDamp; diabetes management. - Ritalin may be cause of, or contribute to her insomnia. Discontinue Ritalin. - Discontinue Reglan ANDamp; Phenergan and start Zofran 8mg every 8 hour as needed for nausea and follow-up with GI, Dr. Spicer. Vivian Diaz MD Cc: Dr. Godwin Spicer Referring Provider: VIVIAN DIAZ [[id number]] Allergies As of Date: 10/09/2017 Noted Allergy Reaction PENICILLINS 05/25/2008 4 - Hives SULFA (SULFONAMIDE ANTIBIOTICS) 09/19/2016 2 - Rash 14 - Other: See Comments Comments: Blisters and sore in throat Date Reviewed: 10/09/2017 Reviewed by: Lisa Rodriguez - Fully Assessed Reason for Visit: Established Patient [[id number]] Primary Visit Diagnosis:Tobacco use disorder [F17.200] Other Visit Diagnosis:Secondary polycythemia [D75.1] Order(s):ondansetron (ZOFRAN) 8 mg tabletTake 1 tablet by mouth every 8 hours as needed.Disp: 20 tabletRfl: 1 Level of Service: EST PATIENT VISIT LEVEL 3 [[id number]] Disposition: Return if symptoms worsen or fail to improve. Follow-up and Disposition History Recorded Prescriptions as of 10/09/2017 Sig: INSULIN GLARGINE 300 UNIT/ML * Inject 14 Units subcutaneousl* ALBUTEROL SULFATE HFA 90 MCG/* Inhale 2 Puffs as instructed * PEN NEEDLE, DIABETIC 32 GAUGE* Use once daily with insulin LORAZEPAM 0.5 MG TABLET Take 0.5 mg by mouth twice da* BLOOD-GLUCOSE METER KIT 1 Each as needed. BLOOD SUGAR DIAGNOSTIC STRIPS Test blood sugar twice daily LANCETS Check blood sugar twice daily BENZONATATE 100 MG CAPSULE Take 1 capsule by mouth three* ALBUTEROL SULFATE 2.5 MG/3 ML* Use 2.5 mg via nebulizer ever* NYSTATIN 100,000 UNIT/GRAM TO* Apply 1 application to affect* PREGABALIN 150 MG CAPSULE Take 1 capsule by mouth three* AMITRIPTYLINE 25 MG TABLET Take 1 tablet by mouth daily * OMEPRAZOLE 20 MG CAPSULE,LESIA* Take 1 capsule by mouth once * SUCRALFATE 1 GRAM TABLET Take 1 tablet by mouth four t* FLUTICASONE 50 MCG/ACTUATION * Use 2 Sprays in each nostril * ONDANSETRON HCL 8 MG TABLET Take 1 tablet by mouth every * Problem List As Of Date 10/09/2017 Noted Resolved TOBACCO USE DISORDER [F17.200] CERVICAL DISC DEGEN [M50.30] More... Chronic bronchitis (HCC) [J42] DEPRESSIVE DISORDER NEC [F32.9] PERSISTENT INSOMNIA [G47.00] INVALID FOR* MGRN W AURA WO NTRC MGRN [G43.109] PANIC DISORDER WITHOUT AGORAPHOBIA [F41.0] Fibromyalgia [M79.7] History of recurrent UTIs [Z87.440] INVALID FOR* DM (diabetes mellitus) (HCC) [E11.9] Secondary polycythemia [D75.1] INVALID FOR* Encounter Status:Closed by VIVIAN DIAZ MD on 10/10/17 DISCHARGE INSTRUCTION Observed: 10/07/2017 Status: F Source: ALEX 1:49 PM [facility] REPOSITORY [facility] Medical Records Department [address] [place] [address] Discharge Instruction 10/07/17 1347 MR#: [id number] Acct: [id number] Name: IVET VALERO Rep #: [id number] : 1955 62 From: Мария Burnham PCP: Ricci Cole MD Status: REG ER ED Disposition - Plan for ED Patient: Chief Complaint: Abd Pain Instructions: ED Nausea Vomiting Prescriptions: ProMETHAzine [Phenergan] 25 mg RECTAL Q6H PRN PRN #14 suppos. PRN Reason: Nausea Referrals: Ricci Cole MD [Primary Care Provider] - 3-5 Days Godwin Spicer MD [STAFF PHYSICIAN] - What to do if you have Problems For any increased pain, shortness of breath, bleeding, nausea or vomiting, chest pain, or any unexpected problems, contact your Primary Care Provider. Call [facility] ([phone]) or report to the closest Emergency Room. Call 911 if necessary. 10/07/17 1349 <Electronically signed by Мария Burnham > Date Мария Burnham Cosigner Signature (If Indicated): Date CC: Ricci Cole MD EMERGENCY DEPARTMENT Observed: 10/07/2017 Status: F Source: [place] SUMMARY 1:47 PM [facility] REPOSITORY [facility] Medical Records Department [address] [place] [address] Emergency Department Summary 10/07/17 0926 MR#: [id number] Acct: [id number] Name: IVET VALERO Rep #: [id number] : 1955 62 From: Мария Burnham PCP: Ricci Cole MD Status: REG ER - ER Visit Summary Date of Service: 10/07/17 Chief Complaint: [Nausea] History of Present Illness: The patient is a 62 F [who presents the emergency department with nausea. She has chronic ongoing problems with her abdomen. She is followed with Dr. Spicer. She had an upper endoscopy 2 weeks ago which showed a hiatal hernia. She had an appointment yesterday because she could not get her nausea under control and was started on Reglan. She scheduled for gastric emptying study on . She cannot sleep because the nausea persist. She has no vomiting. Last night she had 10-12 episodes of watery diarrhea. She has a history of a complete hysterectomy no other abdominal surgeries. Urine has been unchanged. She has some mild right back pain. She is a smoker. She has a history of COPD. She has poorly controlled diabetes and her blood sugars have been running over 300.] Physical Examination: [] Blood pressure 159/101 heart rate 111 respiratory rate 20 WN WD NAD PERRL EOMI MMM NECK supple and nontender, no masses RRR no murmur rub or gallop, no peripheral edema, symmetric radial pulses CTAB no respiratory distress ABDOMEN is soft mild epigastric tenderness, normal bowel sounds, no distension, no rebound or guarding SKIN is warm and dry no rashes Alert and Oriented x3, CN II-XII in tact, no motor or sensory deficits, gait normal No lymphadenopathy Tearful Test Results: [] Emergency Department Course and Treatment: [Patient was given fluids. Screening labs consistent with a leukocytosis at 15.2. In review of labs patient has a chronic leukocytosis. CT of the abdomen and pelvis was obtained with p.o. and IV contrast and shows pneumobilia and absence of the gallbladder consistent with prior cholecystectomy. Patient did improve with Phenergan and Ativan however nausea did come back she was given Zofran and states that did not help. She was then given another dose of Phenergan and Ativan. She has a gastric emptying study scheduled in 2 days. She is recently started on Reglan. I will write her a prescription for Phenergan suppositories. At this time I think she can be discharged home to continue to follow with Dr. Spicer] Treatment Plan: [] Disposition: [Discharge] Impression: [1. Nausea 2. Mild dehydration 3. Chronic leukocytosis] This note was generated with [employer]upon[employer] software. It may contain incorrect words, spelling, and punctuation that were not noted in review of the chart prior to signing ED Disposition - Plan for ED Patient: Chief Complaint: Abd Pain Referrals: Ricci Cole MD [Primary Care Provider] - What to do if you have Problems For any increased pain, shortness of breath, bleeding, nausea or vomiting, chest pain, or any unexpected problems, contact your Primary Care Provider. Call [facility] ([phone]) or report to the closest Emergency Room. Call 911 if necessary. 10/07/17 1347 <Electronically signed by Мария Burnham > Date Мария Burnham Cosigner Signature (If Indicated): Date CC: Ricci Cole MD URINALYSIS, COMPLETE Collected: 10/07/2017 Status: F Source: ALEX 10:04 AM [facility] REPOSITORY Order Comment: Order Date: 10/07/17 How was Urine Obtained? CLEAN CATCH TYPE CODE TESTS RESULT OUT OF RANGE REFERENCE UNITS LAB L400.3000 Yellow COLOR Normal Yellow LAB L400.3050 Clear Normal CLARITY Sl. Cloudy LAB L400.3200 Normal mg/dl High GLUCOSE, UR 1000 LAB L400.3300 Negative mg/dL Normal BILIRUBIN URINE Negative LAB L400.3400 Negative mg/dl High 50 KETONE UR LAB L400.3465 1.002-1.030 Normal SP.GR. DIPSTX 1.015 LAB L400.3550 5.0 - 8.0 pH UR Normal 6.0 LAB L400.3600 Negative mg/dl PROT Normal DIPSTX Negative LAB L400.3700 Normal mg/dl Normal UROBILI Normal LAB L400.3750 Negative Normal NITRITE UR Negative LAB L400.3780 Negative /ul High 25 OCCULT BLOOD-UR LAB L400.3800 Negative /ul High LEUK ESTERASE 500 LAB L400.4050 0-5 /hpf WBC Normal 0-5 SEEN LAB L400.4100 0-5 /hpf 0 Normal RBC-UA SEEN LAB L400.4150 5-10 /hpf SQUAM Normal EPI 0-5 SEEN LAB L400.4300 None Seen /hpf Normal BACTERIA RARE LAB L400.4350 <or=2+ /hpf 0 Normal MUCUS, URINE SEEN LAB L400.5200 None Seen /hpf 1+ Normal YEAST-URINE Performed By: #### L400.0001 #### [facility] [address] [place], [place], [id number] CBC W/DIFF, AUTOMATED Collected: 10/07/2017 Status: F Source: ALEX 9:39 AM [facility] REPOSITORY TYPE CODE TESTS RESULT OUT OF RANGE REFERENCE UNITS LAB L100.1000 4.4-11.0 K/mm3 High WBC 15.2 LAB L100.1200 4.2-5.4 M/mm3 Normal RBC 5.38 LAB L100.1300 12.0-15.0 g/dl High HGB 16.8 LAB L100.1400 37-47 % High HCT 47.7 LAB L100.1500 81-99 fL Normal MCV 88.7 LAB L100.1600 27.0-32.0 pg Normal MCH 31.2 LAB L100.1700 32-36 g/gl Normal MCHC 35.2 LAB L100.1810 11.6-14.6 % Normal RDW CV 13.6 LAB L100.1820 35.1-43.9 fl High RDW SD 44.2 LAB L100.1900 150-450 K/mm3 High PLT 462 LAB L100.2000 6.2-12.0 fl Normal MPV 9.4 LAB L100.2100 47-70 % High NEUT% 74.3 LAB L100.2200 19-41 % Low LY% 18.0 LAB L100.2300 0-10 % Normal MONO% 6.6 LAB L100.2400 0-5 % Normal EO% 0.3 LAB L100.2500 0-1 % Normal BASO% 0.3 LAB L100.2550 0.0-0.9 % Normal IM GRAN % 0.500 Result Comment: IG% - Immature Granulocytes (promyelocytes, myelocytes and metamyelocytes) > 1% indicates that a LEFT SHIFT is Present. LAB L100.2620 2.0-7.7 X10 3/uL High Absolute Neut 11.3 LAB L100.2720 0.83-4.51 X10 3/ul Normal Absolute Lymph 2.74 Performed By: #### L100.0100 #### [facility] [address] [place], [place], [address] COMPREHENSIVE METABOLIC Collected: 10/07/2017 Status: F Source: ALEX TOM 9:39 AM [facility] REPOSITORY TYPE CODE TESTS RESULT OUT OF RANGE REFERENCE UNITS LAB L501.0100 74-106 mg/dL High GLU 302 Result Comment: Glucose result greater than or equal to 200 mg/dL suggests DIABETES MELLITUS per A.D.A. criteria. Please note revised GLUCOSE reference range effective 2017. LAB L501.1000 7-18 mg/dL Low BUN 5 LAB L501.1100 0.55-1.02 mg/dL Normal CREAT,SERUM 0.70 Result Comment: The validity of the calculated GFR AND GFRAA in patients over 70 years has not been determined. Clinical correlation is essential. LAB L501.1110 >60 mL/min Normal EST GFR 91 Result Comment: Non- GFR Calc LAB L501.1115 >60 mL/min Normal EST GFR - AA 110 Result Comment: GFR Calc LAB L501.1255 ml/min Normal Estimated CRCL 83.11 LAB L501.1300 10-20 RATIO Low BUN/CRE 7.2 LAB L501.1500 6.4-8. g/dL Normal 2 T PROT 8.0 LAB L501.1800 3.2-5. g/dL Normal 0 ALB 4.0 LAB L501.1950 2.2-4. g/dL Normal 2 GLOB 4.0 LAB L501.2000 0.9-2. RATIO Normal 4 A/G 1.0 LAB L501.2200 8.5-10 mg/dL Normal .1 CA 9.6 LAB L501.4100 15-37 U/L Low AST 12 LAB L501.4305 45-117 U/L Normal ALK P 94 LAB L501.4405 13-56 U/L Normal ALT 20 Result Comment: Please note revised ALT reference range effective 2017. LAB L501.4600 0.20-1.00 mg/dL Normal T BILI 0.50 LAB L501.5300 136-145 mmol/L Normal NA 136 LAB L501.5600 3.5-5.1 mmol/L Normal K 3.5 LAB L501.5900 98-107 mmol/L Normal CL 102 LAB L501.6100 21.0-32.0 mmol/L Normal CO2 25.0 LAB L501.6200 5-15 Normal GAP 9 Performed By: #### L500.4050, L501.2450 #### [facility] [address] [place], [address] LIPASE Collected: 10/07/2017 Status: F Source: ALEX 9:39 AM [facility] REPOSITORY TYPE CODE TESTS RESULT OUT OF RANGE REFERENCE UNITS LAB L501.2450 73-393 U/L Normal LIPASE 120 Performed By: #### L500.4050, L501.2450 #### [facility] [address] [place], [address] ABDOMEN/PELVIS WITH Observed: 10/07/2017 Status: F Source: ALEX CONTRAST 9:24 AM [facility] REPOSITORY [facility] Imaging Services [address] [place] [address] Abdomen/Pelvis WITH Contrast MR#: [id number] Acct: [id number] Name: IVET VALERO Joe Rep #: [id number] : 1955 F 62 From: Power Farias DO PCP: Ricci Cole MD Status: REG ER Study: Abdomen/Pelvis WITH Contrast Date of Exam: 10/07/17 Exam# [id number] Ordering Dr: Мария Burnham STUDY: CT ABDOMEN AND PELVIS WITH CONTRAST REASON FOR EXAM: Female, 62 years old. Nausea and diarrhea RADIATION DOSAGE (If Supplied By Facility): CTDIvol = ( 16.72 ) mGy, DLP = ( 1401.05 ) mGycm TECHNIQUE: Transaxial images were obtained from the dome of the diaphragm to the symphysis pubis with oral contrast. 100 ml of Isovue 300 contrast was administered. Sagittal and coronal images were reconstructed. Individualized dose optimization techniques were used for this CT. COMPARISON: 08/17/2013 FINDINGS: Atelectasis in the lung bases. The visualized portions of the heart are within normal limits. There is decreased attenuation of the liver consistent with steatosis. There is non-visualization of the gallbladder, which may be secondary to either contraction or a prior cholecystectomy. Pneumobilia is noted. Normal spleen. Normal pancreas. Normal bilateral adrenal glands. Normal right kidney. Normal left kidney. Small nonenhancing left renal cyst. There is a small hiatal hernia. Normal small intestine. There are multiple colonic diverticula consistent with diverticulosis. The appendix is visualized and appears normal. Normal abdominal aorta. Normal inferior vena cava. Normal retroperitoneum. Normal urinary bladder. There is absence of the uterus consistent with a prior hysterectomy. Normal abdominal wall. There are diffuse degenerative changes of the visualized lumbar spine. CT/Abdomen/Pelvis WITH Contrast IMPRESSION: Nonvisualized gallbladder. Pneumobilia. Fatty steatosis of the liver. No acute findings of the small or large bowel. Electronically Signed: Power Farias DO at 13:09 EST Tel , Service support , CC: Мария Burnham; Ricci Cole MD Production Hardener: Signed OBSOLETE Observed: 09/17/2017 Status: COMPLETED Source: [place] 12:00 AM [facility] REPOSITORY [facility] IVET VALERO ([id number]) 1955 F Date Time Provider Department 09/17/17 RICCI COLEPWS During your visit today, we recorded the following information about you: Geovany Love LPN 09/17/2017 12:59 PM Signed Patient's request for medication is as follows: Pending Prescriptions Disp Refills ALBUTEROL SULFATE HFA 90 MCG/ACTUATION AEROSOL INHALER 1 Inhaler 0 Sig: Inhale 2 Puffs as instructed every 4 hours as needed. JERE: No Please approve the above prescription(s) to electronically send to pharmacy. Geovany Love LPN Allergies As of Date: 09/17/2017 Noted Allergy Reaction PENICILLINS 05/25/2008 4 - Hives SULFA (SULFONAMIDE ANTIBIOTICS) 09/19/2016 2 - Rash 14 - Other: See Comments Comments: Blisters and sore in throat Date Reviewed: 09/10/2017 Reviewed by: Lucía Vela (Ronni) RONNI Butcher - Fully Assessed Reason for Visit: Refill Request [94] Visit Diagnosis:Chronic bronchitis, unspecified chronic bronchitis type (HCC) [J42] Order(s):albuterol HFA (VENTOLIN HFA) 90 mcg/actuation inhalerInhale 2 Puffs as instructed every 4 hours as needed.Disp: 1 InhalerRfl: 0 Prescriptions as of 09/17/2017 Sig: ALBUTEROL SULFATE HFA 90 MCG/* Inhale 2 Puffs as instructed * INSULIN GLARGINE 300 UNIT/ML * Inject 10 Units subcutaneousl* PEN NEEDLE, DIABETIC 32 GAUGE* Use once daily with insulin PROMETHAZINE 25 MG TABLET TAKE ONE-HALF TABLET BY MOUTH* LORAZEPAM 0.5 MG TABLET Take 0.5 mg by mouth twice da* METHYLPHENIDATE 20 MG TABLET Take 20 mg by mouth twice manny* BLOOD-GLUCOSE METER KIT 1 Each as needed. BLOOD SUGAR DIAGNOSTIC STRIPS Test blood sugar twice daily LANCETS Check blood sugar twice daily METOCLOPRAMIDE 10 MG TABLET Take 1 tablet by mouth four t* BENZONATATE 100 MG CAPSULE Take 1 capsule by mouth three* ALBUTEROL SULFATE 2.5 MG/3 ML* Use 2.5 mg via nebulizer ever* NYSTATIN 100,000 UNIT/GRAM TO* Apply 1 application to affect* PREGABALIN 150 MG CAPSULE Take 1 capsule by mouth three* AMITRIPTYLINE 25 MG TABLET Take 1 tablet by mouth daily * OMEPRAZOLE 20 MG CAPSULE,LESIA* Take 1 capsule by mouth once * SUCRALFATE 1 GRAM TABLET Take 1 tablet by mouth four t* FLUTICASONE 50 MCG/ACTUATION * Use 2 Sprays in each nostril * Problem List As Of Date 09/17/2017 Noted Resolved TOBACCO USE DISORDER [F17.200] CERVICAL DISC DEGEN [M50.30] More... 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 Medications Discontinued During This Encounter albuterol HFA (VENTOLIN HFA) 90 mcg/* 1 In* 0 07/31/2017 09/17/2017 Route: INHALATION Sig: Inhale 2 Puffs as instructed every 4 hours as needed. Disc: Reason for discontinue is not on file. Encounter Status:Closed by RICCI COLE MD on 09/17/17 CNPN Observed: 09/17/2017 Status: COMPLETED Source: [place] 12:00 AM [facility] REPOSITORY Telephone (PHZimplisticWO) IVET VALERO ([id number]) 1955 F Date Time Provider Department 09/17/17 DUANE (PHARMACIST)ELISABET During your visit today, we recorded the following information about you: GREGORY HINES 09/17/2017 1:32 PM Signed Patient called stating that she took first dose of Toujeo 10 units yesterday morning and felt ill all day yesterday. Reports sugars still between 300-400 mg/dL. Has endoscopy tomorrow morning. Instructed patient to hold her insulin until after the procedure. Take 10 units after the procedure tomorrow. PharmD f/u Friday morning. Elisabet Zepeda PharmD, BCPS GREGORY HINES 09/19/2017 12:53 PM Signed Called for update. Reports had her endoscopy yesterday. Went well. She received insulin regular 10 units right before procedure. Did not take any Toujeo yesterday. Took Toujeo 5 units today and feels ok. Instructed patient to trial 10 units daily. If any issues next week, call PCP's office. PharmD out of office. Otherwise PharmD will check on patient week of 09/29. Elisabet Zepeda PharmD, BCPS ELISABET ZEPEDA PHARMACIST 10/01/2017 12:12 PM Signed PharmD called patient for update. Taking Toujeo 10 units QAM. Reports tolerating and compliant with therapy. Reports last few days' FBGs: [phone] Will increase to 14 units at this time and continue to titrate based on FBGs. PharmD phone f/u on 10/09. Elisabet Zepeda PharmD, GREGORY LI 10/01/2017 12:12 PM Signed Addended by: DUANE (PHARMACIST)ELISABET on: 10/01/2017 12:12 PM Modules accepted: Orders Allergies As of Date: 09/17/2017 Noted Allergy Reaction PENICILLINS 05/25/2008 4 - Hives SULFA (SULFONAMIDE ANTIBIOTICS) 09/19/2016 2 - Rash 14 - Other: See Comments Comments: Blisters and sore in throat Date Reviewed: 09/10/2017 Reviewed by: Lucía Vela ([facility]) RONNI Butcher - Fully Assessed Reason for Visit: Patient Update [1234] Cmt: New Toujeo start Visit Diagnosis:Type 2 diabetes mellitus without complication, without long-term current use of insulin (HCC) [E11.9] Order(s):insulin glargine (TOUJEO) 300 unit/mL (1.5 mL) inpnInject 14 Units subcutaneously every morning.Disp: 3 PenRfl: 5 Prescriptions as of 09/17/2017 Sig: INSULIN GLARGINE 300 UNIT/ML * Inject 14 Units subcutaneousl* PEN NEEDLE, DIABETIC 32 GAUGE* Use once daily with insulin PROMETHAZINE 25 MG TABLET TAKE ONE-HALF TABLET BY MOUTH* LORAZEPAM 0.5 MG TABLET Take 0.5 mg by mouth twice da* METHYLPHENIDATE 20 MG TABLET Take 20 mg by mouth twice manny* BLOOD-GLUCOSE METER KIT 1 Each as needed. BLOOD SUGAR DIAGNOSTIC STRIPS Test blood sugar twice daily LANCETS Check blood sugar twice daily METOCLOPRAMIDE 10 MG TABLET Take 1 tablet by mouth four t* BENZONATATE 100 MG CAPSULE Take 1 capsule by mouth three* ALBUTEROL SULFATE 2.5 MG/3 ML* Use 2.5 mg via nebulizer ever* NYSTATIN 100,000 UNIT/GRAM TO* Apply 1 application to affect* X ALBUTEROL SULFATE HFA 90 MCG/* Inhale 2 Puffs as instructed * PREGABALIN 150 MG CAPSULE Take 1 capsule by mouth three* AMITRIPTYLINE 25 MG TABLET Take 1 tablet by mouth daily * OMEPRAZOLE 20 MG CAPSULE,LESIA* Take 1 capsule by mouth once * SUCRALFATE 1 GRAM TABLET Take 1 tablet by mouth four t* FLUTICASONE 50 MCG/ACTUATION * Use 2 Sprays in each nostril * Problem List As Of Date 09/17/2017 Noted Resolved TOBACCO USE DISORDER [F17.200] CERVICAL DISC DEGEN [M50.30] More... Chronic bronchitis (HCC) [J42] DEPRESSIVE DISORDER NEC [F32.9] PERSISTENT INSOMNIA [G47.00] INVALID FOR* [facility]GRN [facility] MGRN [G43.109] PANIC DISORDER WITHOUT AGORAPHOBIA [F41.0] Fibromyalgia [M79.7] History of recurrent UTIs [Z87.440] INVALID FOR* DM (diabetes mellitus) (HCC) [E11.9] Secondary polycythemia [D75.1] INVALID FOR* Prescriptions ordered this encounter Disp Refills Start End INSULIN GLARGINE 300 UNIT/ML (1.5 ML* 3 Pen 5 10/01/2017 Route: SUBCUTANEOUS Sig: Inject 14 Units subcutaneously every morning. Medications Discontinued During This Encounter insulin glargine (TOUJEO) 300 unit/m* 3 Pen 0 09/15/2017 10/01/2017 Route: SUBCUTANEOUS Sig: Inject 10 Units subcutaneously once daily. Disc: Reason for discontinue is not on file. Follow-up and Disposition History Recorded Encounter Status:Closed by DUANE (PHARMACIST)ELISABET on 09/17/17 PROGRESS Observed: 09/15/2017 Status: COMPLETED Source: [place] 2:00 PM [facility] REPOSITORY HNO ID: [id number] Author: Elisabet Zepeda (Pharmacist) Service: (none) Author Type: Pharmacist Type: Progress Notes Filed: 09/15/2017 2:21 PM Note Text: Patient consents to pharmacy collaborative practice agreement. REASON FOR CONSULT: DM GOALS: A1c CONSULTING PROVIDER: Dr. Cole Date of Consult: 06/2017 Ivet Valero is a 62 year old female was last seen in [facility] by PCP, Dr. Cole on 08/20/17. Patient is called today for f/u pharmacotherapy management appointment for DM. At last PharmD visit patient was started on sitagliptin. INTERIM HISTORY: Reports still feeling the same, nausea No difference after starting sitagliptin (could not tolerate metformin and glipizide) Saw GI on 09/10, started promethazine PRN nausea Has endoscopy scheduled for 09/18 Drinking much less josey conner - soda water or chamomile tea instead Started checking BG's Reports BG's still elevated Current DM Medications: Sitagliptin 50mg once daily Current HTN Medications: None ? Patient denies CP, SOB, KUNZ, blurred vision, dizziness or lightheadedness ? Patient denies symptoms of hypoglycemia (sweating, anxiety, palpitations, hunger, and tremor) ? Patient denies symptoms of hyperglycemia (polyuria, polydipsia, polyphagia) ? Patient denies potential medication adverse effects DIET/EXERCISE/SOCIAL Hx: Not much d/t very sensitive stomach and no dentures ? Apple sauce, mashed potatoes, chicken breast, turkey, roast beef, pizza ? Beverages: less josey conner, soda water, chamomile tea, coffee, tea ? Exercise: no ? Tobacco: yes, will quit after stomach issues are resolves, willing to try the patch ? Alcohol: denies ? Illicits: denies MEDICATIONS: ? Pill bottles are not present. ? Adherence: denies missed doses. ? [facility] ? Rx coverage: Medicare/Medicaid ? Affordability: no issues ? Diabetes supplies: ? Organization System: none ACTIVE PROBLEM LIST Tobacco Use Disorder Degeneration of Cervical Intervertebral Disc Chronic Bronchitis (Hcc) Depressive Disorder, Not Elsewhere Classified Persistent Disorder of Initiating Or Maintaining Sleep Migraine With Aura, Without Mention of Intractable Migraine Without Mention of Status Migrainosus Panic Disorder Without Agoraphobia Fibromyalgia History of Recurrent Utis Dm (Diabetes Mellitus) (Hcc) Secondary Polycythemia 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 methylphenidate (RITALIN) 20 mg tablet Take 20 mg by mouth twice daily. Blood-Glucose Meter (BLOOD GLUCOSE MONITORING) monitoring kit 1 Each as needed. blood sugar diagnostic (BLOOD GLUCOSE TEST) test strip Test blood sugar twice daily Lancets lancets Check blood sugar twice daily metoclopramide HCl (REGLAN) 10 mg tablet Take 1 tablet by mouth four times daily as needed. benzonatate (TESSALON PERLE) 100 mg capsule Take 1 capsule by mouth three times daily as needed. albuterol (PROVENTIL) 2.5 mg /3 mL (0.083 %) nebulizer solution Use 2.5 mg via nebulizer every 4 hours as needed for Wheezing/Shortness of Breath. albuterol HFA (VENTOLIN HFA) 90 mcg/actuation inhaler Inhale 2 Puffs as instructed every 4 hours as needed. nystatin (MYCOSTATIN) cream Apply 1 application to affected area twice daily. pregabalin (LYRICA) 150 mg capsule Take 1 capsule by mouth three times daily. amitriptyline (ELAVIL) 25 mg tablet Take 1 tablet by mouth daily at bedtime. omeprazole (PRILOSEC) 20 mg capsule Take 1 capsule by mouth once daily. sucralfate (CARAFATE) 1 gram tablet Take 1 tablet by mouth four times daily as needed. fluticasone (FLONASE) 50 mcg/actuation nasal spray Use 2 Sprays in each nostril once daily. Rinse mouth after use. No current facility-administered medications for this visit. Rx meds not listed in EPIC: none OTCs: none Herbals: none ? On KIM/ARB: No ? On Statin: No ? On ASA: No GLYCEMIC CONTROL: ? Glucometer present at visit: no ? SMBG?s: reports 300-400s ? Hypoglycemia: denies Last 3 Encounter BP Readings: Date: BP: 09/10/2017 144/80 08/20/2017 162/92 07/31/2017 162/82 Wt: 88 kg (194 lb) BMI: 33.12 kg/(m2) LABS Lab Results Component Value Date HBA1C 11.5 09/10/2017 HBA1C 9.0 06/02/2017 HBA1C 9.3 09/18/2016 CMP: Glucose 304 08/20/2017 BUN 5 08/20/2017 Creatinine 0.50 08/20/2017 Sodium 135 08/20/2017 Potassium 3.7 08/20/2017 Chloride 95 08/20/2017 CO2 25 08/20/2017 Protein, Total 6.9 06/02/2017 Albumin 4.2 06/02/2017 Calcium 9.1 08/20/2017 Alkaline Phosphatase 80 06/02/2017 Bilirubin, Total 0.3 06/02/2017 AST 19 06/02/2017 ALT 16 06/02/2017 Estimated Creatinine Clearance: 129 mL/min (based on Cr of 0.5). Last Lipid Panel Lab Results Component Value Date CHOL 237 06/02/2017 Lab Results Component Value Date HDL 53 06/02/2017 Lab Results Component Value Date LDL 114 06/02/2017 Lab Results Component Value Date TG 350 06/02/2017 No results found for: UALBCR PHARMACOTHERAPY ASSESSMENT/PLAN: 1. Type 2 diabetes mellitus without complication, without long-term current use of insulin ([facility]) - ICD9: 250.00, ICD10: E11.9 A1c goal < 7%, patient is not at goal (11.5% on 09/10/17). Started testing BGs and reports elevated, correlates with elevated A1c. Compliant and tolerating sitagliptin but likely requires more BG lowering. Appropriate to stop sitagliptin and start insulin at this time. Reviewed injection technique, proper storage, and supplies over the phone. Offered patient in-office teaching but she declined as is already using a pen for injections and she is familiar with the use. Patient could not tolerate metformin in the past d/t GI issues. Discussed potential for high BG's to contribute to nausea as well. Renal fxn and LFTs WNL ? START insulin glargine 300 units/mL (Touje) 10 units once daily ? STOP sitagliptin ? Instructed patient to continue checking FBGs and PPBGs ? Eye exam: has appointment on 09/12 ? Foot exam: 06/02/17 ? - PEN NEEDLE, DIABETIC 32 GAUGE X 01/07 Reviewed the following information with the patient: 1. Dose, administration, storage and side effects. 2. S/s of hypoglycemia and how to manage it. 3. When to check BG. 4. Proper disposal of pen needles. Patient has the following: Pen needles/insulin syringes: will send Test strips: yes Lancets: yes Glucose tablets: will send BP goal < 130/80, pt is has historically been at goal, but last couple readings elevated. Does not carry diagnosis of HTN. Will continue to monitor. Pt is not prescribed statin therapy (indicated for high intensity d/t DM and ASCVD risk score 17.6%). Elevated risk d/t smoking (8.7% without smoking). Given current stomach issues, did not discuss today. Will discuss at future visits. She could benefit from daily baby aspirin as well. Patient is scheduled to see PCP will schedule. PharmD phone f/u later this week. Patient to return to clinic for PharmD f/u when she is able (difficulty making appointments with persistent GI issues). Patient verbalized understanding of instructions. Elisabet Zepeda, Elda, BCPS CNOV Observed: 09/15/2017 Status: COMPLETED Source: [place] 2:00 PM [facility] REPOSITORY Office Visit (PHMEWO) IVET VALERO ([id number]) 1955 F Date Time Provider Department 09/15/17 2:00 PM DUANE (PHARMACIST)ELISABET During your visit today, we recorded the following information about you: GREGORY HINES 09/15/2017 2:21 PM Signed Patient consents to pharmacy collaborative practice agreement. REASON FOR CONSULT: DM GOALS: A1c CONSULTING PROVIDER: Dr. Cole Date of Consult: 06/2017 Ivet Valero is a 62 year old female was last seen in [facility] by PCP, Dr. Cole on 08/20/17. Patient is called today for f/u pharmacotherapy management appointment for DM. At last PharmD visit patient was started on sitagliptin. INTERIM HISTORY: Reports still feeling the same, nausea No difference after starting sitagliptin (could not tolerate metformin and glipizide) Saw GI on 09/10, started promethazine PRN nausea Has endoscopy scheduled for 09/18 Drinking much less josey conner - soda water or chamomile tea instead Started checking BG's Reports BG's still elevated Current DM Medications: Sitagliptin 50mg once daily Current HTN Medications: None ? Patient denies CP, SOB, KUNZ, blurred vision, dizziness or lightheadedness ? Patient denies symptoms of hypoglycemia (sweating, anxiety, palpitations, hunger, and tremor) ? Patient denies symptoms of hyperglycemia (polyuria, polydipsia, polyphagia) ? Patient denies potential medication adverse effects DIET/EXERCISE/SOCIAL Hx: Not much d/t ANDquot;very sensitive stomachANDquot; and no dentures ? Apple sauce, mashed potatoes, chicken breast, turkey, roast beef, pizza ? Beverages: less josey conner, soda water, chamomile tea, coffee, tea ? Exercise: no ? Tobacco: yes, will quit after stomach issues are resolves, willing to try the patch ? Alcohol: denies ? Illicits: denies MEDICATIONS: ? Pill bottles are not present. ? Adherence: denies missed doses. ? [facility] ? Rx coverage: Medicare/Medicaid ? Affordability: no issues ? Diabetes supplies: ? Organization System: none ACTIVE PROBLEM LIST Tobacco Use Disorder Degeneration of Cervical Intervertebral Disc Chronic Bronchitis (Hcc) Depressive Disorder, Not Elsewhere Classified Persistent Disorder of Initiating Or Maintaining Sleep Migraine With Aura, Without Mention of Intractable Migraine Without Mention of Status Migrainosus Panic Disorder Without Agoraphobia Fibromyalgia History of Recurrent Utis Dm (Diabetes Mellitus) (Hcc) Secondary Polycythemia 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 methylphenidate (RITALIN) 20 mg tablet Take 20 mg by mouth twice daily. Blood-Glucose Meter (BLOOD GLUCOSE MONITORING) monitoring kit 1 Each as needed. blood sugar diagnostic (BLOOD GLUCOSE TEST) test strip Test blood sugar twice daily Lancets lancets Check blood sugar twice daily metoclopramide HCl (REGLAN) 10 mg tablet Take 1 tablet by mouth four times daily as needed. benzonatate (TESSALON PERLE) 100 mg capsule Take 1 capsule by mouth three times daily as needed. albuterol (PROVENTIL) 2.5 mg /3 mL (0.083 %) nebulizer solution Use 2.5 mg via nebulizer every 4 hours as needed for Wheezing/Shortness of Breath. albuterol HFA (VENTOLIN HFA) 90 mcg/actuation inhaler Inhale 2 Puffs as instructed every 4 hours as needed. nystatin (MYCOSTATIN) cream Apply 1 application to affected area twice daily. pregabalin (LYRICA) 150 mg capsule Take 1 capsule by mouth three times daily. amitriptyline (ELAVIL) 25 mg tablet Take 1 tablet by mouth daily at bedtime. omeprazole (PRILOSEC) 20 mg capsule Take 1 capsule by mouth once daily. sucralfate (CARAFATE) 1 gram tablet Take 1 tablet by mouth four times daily as needed. fluticasone (FLONASE) 50 mcg/actuation nasal spray Use 2 Sprays in each nostril once daily. Rinse mouth after use. No current facility-administered medications for this visit. Rx meds not listed in EPIC: none OTCs: none Herbals: none ? On KIM/ARB: No ? On Statin: No ? On ASA: No GLYCEMIC CONTROL: ? Glucometer present at visit: no ? SMBG?s: reports 300-400s ? Hypoglycemia: denies Last 3 Encounter BP Readings: Date: BP: 09/10/2017 144/80 08/20/2017 162/92 07/31/2017 162/82 Wt: 88 kg (194 lb) BMI: 33.12 kg/(m2) LABS Lab Results Component Value Date HBA1C 11.5 09/10/2017 HBA1C 9.0 06/02/2017 HBA1C 9.3 09/18/2016 CMP: Glucose 304 08/20/2017 BUN 5 08/20/2017 Creatinine 0.50 08/20/2017 Sodium 135 08/20/2017 Potassium 3.7 08/20/2017 Chloride 95 08/20/2017 CO2 25 08/20/2017 Protein, Total 6.9 06/02/2017 Albumin 4.2 06/02/2017 Calcium 9.1 08/20/2017 Alkaline Phosphatase 80 06/02/2017 Bilirubin, Total 0.3 06/02/2017 AST 19 06/02/2017 ALT 16 06/02/2017 Estimated Creatinine Clearance: 129 mL/min (based on Cr of 0.5). Last Lipid Panel Lab Results Component Value Date CHOL 237 06/02/2017 Lab Results Component Value Date HDL 53 06/02/2017 Lab Results Component Value Date LDL 114 06/02/2017 Lab Results Component Value Date TG 350 06/02/2017 No results found for: UALBCR PHARMACOTHERAPY ASSESSMENT/PLAN: 1. Type 2 diabetes mellitus without complication, without long-term current use of insulin ([facility]) - ICD9: 250.00, ICD10: E11.9 A1c goal ANDlt; 7%, patient is not at goal (11.5% on 09/10/17). Started testing BGs and reports elevated, correlates with elevated A1c. Compliant and tolerating sitagliptin but likely requires more BG lowering. Appropriate to stop sitagliptin and start insulin at this time. Reviewed injection technique, proper storage, and supplies over the phone. Offered patient in-office teaching but she declined as is already using a pen for injections and she is familiar with the use. Patient could not tolerate metformin in the past d/t GI issues. Discussed potential for high BG's to contribute to nausea as well. Renal fxn and LFTs WNL ? START insulin glargine 300 units/mL (Touje) 10 units once daily ? STOP sitagliptin ? Instructed patient to continue checking FBGs and PPBGs ? Eye exam: has appointment on 09/12 ? Foot exam: 06/02/17 ? - PEN NEEDLE, DIABETIC 32 GAUGE X /16ANDquot; Reviewed the following information with the patient: 1. Dose, administration, storage and side effects. 2. S/s of hypoglycemia and how to manage it. 3. When to check BG. 4. Proper disposal of pen needles. Patient has the following: Pen needles/insulin syringes: will send Test strips: yes Lancets: yes Glucose tablets: will send BP goal ANDlt; 130/80, pt is has historically been at goal, but last couple readings elevated. Does not carry diagnosis of HTN. Will continue to monitor. Pt is not prescribed statin therapy (indicated for high intensity d/t DM and ASCVD risk score 17.6%). Elevated risk d/t smoking (8.7% without smoking). Given current stomach issues, did not discuss today. Will discuss at future visits. She could benefit from daily baby aspirin as well. Patient is scheduled to see PCP will schedule. PharmD phone f/u later this week. Patient to return to clinic for PharmD f/u when she is able (difficulty making appointments with persistent GI issues). Patient verbalized understanding of instructions. Elisabet Zepeda, Elda, [facility] Allergies As of Date: 09/15/2017 Noted Allergy Reaction PENICILLINS 05/25/2008 4 - Hives SULFA (SULFONAMIDE ANTIBIOTICS) 09/19/2016 2 - Rash 14 - Other: See Comments Comments: Blisters and sore in throat Date Reviewed: 09/10/2017 Reviewed by: Lucía Vela ([facility]) RONNI Butcher - Fully Assessed Primary Visit Diagnosis:Type 2 diabetes mellitus without complication, without long-term current use of insulin (HCC) [E11.9] Order(s):insulin glargine (TOUJEO) 300 unit/mL (1.5 mL) inpnInject 10 Units subcutaneously once daily.Disp: 3 PenRfl: 0 Insulin Sellers, Disposable, 32 gauge x 5/16 ndleUse once daily with insulinDisp: 100 EachRfl: 3 Prescriptions as of 09/15/2017 Sig: INSULIN GLARGINE 300 UNIT/ML * Inject 10 Units subcutaneousl* PEN NEEDLE, DIABETIC 32 GAUGE* Use once daily with insulin PROMETHAZINE 25 MG TABLET TAKE ONE-HALF TABLET BY MOUTH* LORAZEPAM 0.5 MG TABLET Take 0.5 mg by mouth twice da* METHYLPHENIDATE 20 MG TABLET Take 20 mg by mouth twice manny* BLOOD-GLUCOSE METER KIT 1 Each as needed. BLOOD SUGAR DIAGNOSTIC STRIPS Test blood sugar twice daily LANCETS Check blood sugar twice daily METOCLOPRAMIDE 10 MG TABLET Take 1 tablet by mouth four t* BENZONATATE 100 MG CAPSULE Take 1 capsule by mouth three* ALBUTEROL SULFATE 2.5 MG/3 ML* Use 2.5 mg via nebulizer ever* ALBUTEROL SULFATE HFA 90 MCG/* Inhale 2 Puffs as instructed * NYSTATIN 100,000 UNIT/GRAM TO* Apply 1 application to affect* PREGABALIN 150 MG CAPSULE Take 1 capsule by mouth three* AMITRIPTYLINE 25 MG TABLET Take 1 tablet by mouth daily * OMEPRAZOLE 20 MG CAPSULE,LESIA* Take 1 capsule by mouth once * SUCRALFATE 1 GRAM TABLET Take 1 tablet by mouth four t* FLUTICASONE 50 MCG/ACTUATION * Use 2 Sprays in each nostril * Medication notes this encounter PROMETHAZINE 25 MG TABLET >> GREGORY HINES 09/15/2017 2:09 PM >> DUANE (PHARMACIST)ELISABET Sep 15, 2017 2:09 PM Received from: External Pharmacy Problem List As Of Date 09/15/2017 Noted Resolved TOBACCO USE DISORDER [F17.200] CERVICAL DISC DEGEN [M50.30] More... Chronic bronchitis (HCC) [J42] DEPRESSIVE DISORDER NEC [F32.9] PERSISTENT INSOMNIA [G47.00] INVALID FOR* MGRN W AURA WO NTRC MGRN [G43.109] PANIC DISORDER WITHOUT AGORAPHOBIA [F41.0] Fibromyalgia [M79.7] History of recurrent UTIs [Z87.440] INVALID FOR* DM (diabetes mellitus) (HCC) [E11.9] Secondary polycythemia [D75.1] INVALID FOR* Prescriptions ordered this encounter Disp Refills Start End INSULIN GLARGINE 300 UNIT/ML (1.5 ML* 3 Pen 0 09/15/2017 Route: SUBCUTANEOUS Sig: Inject 10 Units subcutaneously once daily. PEN NEEDLE, DIABETIC 32 GAUGE X 5/16 100 * 3 09/15/2017 Sig: Use once daily with insulin Follow-up and Disposition History Recorded Encounter Status:Closed by DUANE (PHARMACIST)ELISABET on 09/15/17 CARBOXYHEMOGLOBIN,NIRANJAN Collected: Status: F Source: [place] 09/10/2017 10:09 AM [facility] REPOSITORY TYPE CODE TESTS RESULT OUT OF RANGE REFERENCE UNITS LAB CO <2.0 % High 5.9 Carboxyhemog lobin,Niranjan Performed By: #### CO, CRP, EPO, JAK2 #### [facility] [address] [place], [place] [address] C-REACTIVE PROTEIN Collected: 09/10/2017 Status: F Source: [place] 10:09 AM [facility] REPOSITORY TYPE CODE TESTS RESULT OUT OF REFERENCE UNITS RANGE LAB CRP <0.9 mg/dL High C-Reactive 1.1 Protein Performed By: #### CO, CRP, EPO, JAK2 #### [facility] [address] [address] EPO Collected: 09/10/2017 Status: F Source: [place] 10:09 AM [facility] REPOSITORY TYPE CODE TESTS RESULT OUT OF RANGE REFERENCE UNITS LAB EPO 4.7-28.6 MIU/mL EPO 9.0 Result Comment: Test analyzed by the [employer] DxI method. Performed By: #### CO, CRP, EPO, JAK2 #### [address] [address] JAK2 V617F MUTATION Collected: 09/10/2017 Status: F Source: [place] 10:09 AM [facility] REPOSITORY TYPE CODE TESTS RESULT OUT OF REFERENCE UNITS RANGE LAB JAK2ST JAK2 Peripheral Blood V617F Spec Type LAB JAK2I Result: JAK2 JAK2 V617F V617F Interp Mutation Not Detected Result Comment: Interpretation: The JAK2 V617F Mutation was not detected. The V617F point mutation has been reported in a high percentage of cases of polycythemia vera, approximately half of the cases of essential thro mbocythemia and chronic idiopathic myelofibrosis, and in a smaller proportion of other myeloid disorders. (NOTE) Methodology: Following DNA extraction and library construction utilizing the custom Cancer Hotspot Panel v.1 ([employer], [place], [place]), DNA sequencing of gene mutation hotspot regions was performed on the MiSeq instrument ([employer], [place], [place]). Proteus Biomedical software ([employer], [place], [place]) was used to analyze FASTQ files to identify hotspot mutations in requested genes. Test Limitations: Sequence changes outside the analyzed mutation hotspots, including intronic, non-coding, and splice site variants, will not be identified by this test. Insertions and deletions larger than 20 and 40 bp, respectively, may not be identified by this test. The lower limit of detection of this assay is approximately 5% allele proportion. Variants below 5% allele proportion may be reported at the discretion of the molecular pathology professional staff if the technical quality of the sequencing is sufficient at that location and the call is unequivocal. Common germline polymorphisms are considered to represent wild type sequence and are not included in this report. The presence of nucleotide polymorphisms or variants at the annealing sites of the primers used in amplification and sequencing may cause allele drop-outs, hence a false negative result is possible. This test was developed and its performance characteristics determined by [facility] [place] ([facility]). It has not been cleared or approved by the FDA. [facility] is regulated under CLIA as qualified to perform high-complexity testing. This test is used for clinical purposes. It should not be regarded as investigational or for research. References: Denzel DA, Carissa A, Venkatesh R, Christopher J, Manasa MJ, Teresita Erickson MM, et al. The 2016 revision to the World Health Organization (WHO) classification of myeloid neoplasms and acute leukemia. Blood 2016;127: 2391-405. Vita A, Rosa R, John JW. Myeloproliferative neoplasms: contemporary diagnosis using histology and genetics. Nelly Rev Clin Oncol 2009;6:627-37. LAB MOLREV Molecular Path Reviewed Rev by Meng Petit M.D., Ph.D ([id number]) Performed By: #### CO, CRP, EPO, JAK2 #### [facility] [address] [place] [place], [place] [address] URINALYSIS WITH Collected: 09/10/2017 Status: F Source: [facility] 10:09 AM [facility] REPOSITORY TYPE CODE TESTS RESULT OUT OF RANGE REFERENCE UNITS LAB UCOL Yellow Color Yellow LAB [facility] Clear Clarity Abnormal Turbid Alert LAB UGLUC Negative mg/dL Glucose, Abnormal Urine >=500 Alert LAB UBIL Negative Bilirubin, Urine Negative LAB UKET Negative Ketones, Abnormal Urine 2+ Alert LAB USPG 1.005-1.030 High Specific [place], Ur 1.031 LAB UHGB Negative Abnormal Hemoglobin/Blood, 2+ Alert Ur LAB UPH 4.5-8.0 pH 5.0 LAB UPROT Negative mg/dL Protein, Urine Negative LAB UUROB Normal Urobilinogen Normal LAB UNITR Negative Nitrites Negative LAB ULKEST Negative Leukest Abnormal 3+ Alert LAB UCOM Comments SEE COMMENT Result Comment: N/A LAB UMCOM Urine SEE [place] Comment COMMENT Result Comment: Urine received in non-preservative tube. Interpret results with caution. To ensure optimal and accurate results, transfer urine to the BD Vacutainer Plus urine preservative tube. LAB UWBC 0-5 /HPF Abnormal WBC Alert >25 LAB URBC 0-3 /HPF Abnormal RBC Alert >25 LAB UEPI /HPF Epithelial Cells SEE COMMENT Result Comment: Few Squamous Epithelial Cells LAB UYEA 0 /HPF Abnormal Alert Yeast Many Result Comment: Budding Yeast Performed By: #### UAWMIC #### [facility] [address] [place], [place] [address] Observed: 09/10/2017 Status: F Source: [place] URINE CULTURE 10:09 AM [facility] REPOSITORY Culture Result - 10,000 - <50,000 CFU/ml Three or more organisms, no one type predominant, suggesting contamination during collection. Recollect if clinically indicated. Performed By: #### URCUL #### [facility] [address] [place], [place] [address] PROGRESS Observed: 09/10/2017 Status: COMPLETED Source: [place] 9:39 AM [facility] REPOSITORY HNO ID: [id number] Author: Vivian Diaz Service: (none) Author Type: Physician Type: Progress Notes Filed: 09/11/2017 7:50 AM Note Text: Hematology and Medical Oncology PATIENT NAME: Ivet Valero. CLINIC NO: [id number]. ATTENDING PHYSICIAN: Vivian Diaz MD. DATE OF SERVICE:09/10/2017. DIAGNOSIS: Polycythemia, leukocytosis. Consultation requested by Dr. Cole for an opinion regarding polycythemia. My final recommendations will be communicated back to the requesting physician by way of shared Medical record or letter to requesting physician via US mail. PERFORMANCE STATUS:80% HPI: This 62-year-old moderately obese female with history of chronic bronchitis, tobacco abuse who presented with chronic leukocytosis and polycythemia. The patient also has history of frequent recurrent urinary tract infection after previous surgery for prolapsed bladder. Patient also has a history of gastritis/duodenitis. Patient has no history of fever, chills or night sweats. She has chronic fatigue but no unexpected weight loss. Her recent chest x-ray showed no active disease or infection. She has smoked tobacco for 30 plus pack year, currently 1 half pack per day. No history of alcohol use. Patient denies frequent headaches, visual changes, or symptom of hyperviscosity. She has arthritic pain as well as myalgia along with chronic fatigue. Patient has difficulty sleeping/ insomnia which also exacerbate her symptom of fibromyalgia. She has been taking Ritalin recently for bipolar disorder. She recently complained of increased urinary frequency as well as dysuria. She has a chronic nonproductive cough which is not worse than before. Patient deny history of sleep apnea. She denied a history of hematuria, hemoptysis, or melanoma. She has no family history of cancer, or polycythemia. MEDICATIONS: Current Outpatient Prescriptions: LORazepam (ATIVAN) 0.5 mg tab Take 0.5 mg by mouth twice daily as needed. Blood-Glucose Meter (BLOOD GLUCOSE MONITORING) monitoring kit 1 Each as needed. blood sugar diagnostic (BLOOD GLUCOSE TEST) test strip Test blood sugar twice daily Lancets lancets Check blood sugar twice daily metoclopramide HCl (REGLAN) 10 mg tablet Take 1 tablet by mouth four times daily as needed. benzonatate (TESSALON PERLE) 100 mg capsule Take 1 capsule by mouth three times daily as needed. albuterol (PROVENTIL) 2.5 mg /3 mL (0.083 %) nebulizer solution Use 2.5 mg via nebulizer every 4 hours as needed for Wheezing/Shortness of Breath. albuterol HFA (VENTOLIN HFA) 90 mcg/actuation inhaler Inhale 2 Puffs as instructed every 4 hours as needed. nystatin (MYCOSTATIN) cream Apply 1 application to affected area twice daily. pregabalin (LYRICA) 150 mg capsule Take 1 capsule by mouth three times daily. amitriptyline (ELAVIL) 25 mg tablet Take 1 tablet by mouth daily at bedtime. omeprazole (PRILOSEC) 20 mg capsule Take 1 capsule by mouth once daily. sucralfate (CARAFATE) 1 gram tablet Take 1 tablet by mouth four times daily as needed. fluticasone (FLONASE) 50 mcg/actuation nasal spray Use 2 Sprays in each nostril once daily. Rinse mouth after use. methylphenidate (RITALIN) 20 mg tablet Take 20 mg by mouth twice daily. No current facility-administered medications for this visit. . ALLERGIES: ALLERGIES Allergen Reactions - Penicillins Hives - Sulfa (Sulfonamide * Rash, Other: See Comments Blisters and sore in throat . PAST MEDICAL HISTORY: 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 - Depressive disorder, not elsewhere classified - DM (diabetes mellitus) (HCC) - Fibromyalgia - Migraine with aura, without mention of intractable migraine without mention of status migrainosus - Panic disorder without agoraphobia had hx of failed urine screen - Recurrent UTI - Tobacco use disorder . PAST SURGICAL HISTORY: PAST SURGICAL HISTORY Procedure Laterality Date - CHOLECYSTECTOMY - EGD W/O OR W/BRUSH/WASH 12/06/2015 EGD - LIGATE FALLOPIAN TUBE Tubal ligation - PAST SURGICAL HISTORY OF Left 03/2014 ANKLE FRACTURE REPAIR - S SLING BLADDER 2012 AND - TOTAL ABDOM HYSTERECTOMY Hysterectomy, REJI . FAMILY HISTORY: FAMILY HISTORY Problem Relation Age of Onset - Hypertension Mother . SOCIAL HISTORY:Social History Marital status: Spouse name: Years of education: Number of children: Social History Main Topics Smoking status: Current Every Day Smoker Packs/day: 0.50 Years: 30.00 Types: Cigarettes Smokeless status: Never Used Comment: smoking 4 cigs per day Alcohol use: No Drug use: No . REVIEW OF SYSTEMS: CONSTITUTIONAL: No fevers, chills, nightsweats, unintended weight loss + chronic fatigue HEENT: Denies frequent or severe heaches, nasal congestion/sinus symptoms, problematic allergy problems. EYES: No diplopia or blurry vision. CARDIOVASCULAR: No chest pain, dyspnea, palpitations, orthopnea, PND, ankle edema. PULM: No dyspnea, _+ Chronic cough. GI: No dysphagia/odynophagia, problematic reflux, constipation, diarrhea, changes in stool habits, hematochezia, melena. : urinary complaints, including urinary frequency and dysuria, No gross hematuria or pyuria. NEURO: No new balance problems, peripheral weakness/paresthesias or numbness of concern. MUSC-SKEL: No new joint pain, swelling, or erythema. PSY: No concerns regarding depression, anxiety or panic. INTEGUMENTARY: No new skin changes (rash, new or changing mole, new growth) PHYSICAL EXAMINATION: 62-year-old obese female in no acute distress BP 144/80 Pulse 117 Temp 97.2 Ht 5' 4.173 (1.63m) Wt 194 lb (88.0kg) SpO2 95% BMI 33.12 kg/(m2). HEENT: Head is normocephalic, atraumatic. Sclerae white, conjunctivae pink. PEERL. EOMs are intact. Oropharynx is benign.with good dentition. LYMPHATICS: There is no palpable adenopathy in the neck, supraclavicular region, axillae, or groin. LUNGS: Lungs are clear to percussion and auscultation. increased AP diameter, no wheezing diminished breath sounds HEART: Heart is normal without murmurs, gallops, or rubs. ABDOMEN: obese, Soft and nontender without organomegaly. No masses can be palpated. EXTREMITIES: Are without edema. NEUROLOGIC: Exam is physiologic LABORATORY DATA: Component Latest Ref Rng AND Units 09/10/2017 WBC, Alex 3.70 - 11.00 k/uL 15.25 (H) RBC, Hersey 3.90 - 5.20 m/uL 5.35 (H) Hemoglobin, Alex 11.5 - 15.5 g/dL 16.0 (H) Hematocrit, Hersey 36.0 - 46.0 % 47.9 (H) MCV, Alex 80.0 - 100.0 fL 89.5 MCH, Alex 26.0 - 34.0 pg 29.9 MCHC, Hersey 30.5 - 36.0 g/dL 33.4 RDW, Hersey 11.5 - 15.0 % 13.6 Platelet Cnt, Alex 150 - 400 k/uL 286 MPV, Alex 9.0 - 12.7 fL 9.7 Absol Gran Count 1.45 - 7.50 k/uL 10.66 (H) Component Latest Ref Rng AND Units 09/10/2017 Hemoglobin A1C 4.3 - 5.6 % 11.5 (H) Estimated Average Glucose mg/dL 283 Carboxyhemoglobin, Venous <2.0 % 5.9 (H) CRP <0.9 mg/dL 1.1 (H) peripheral blood smear: Polycythemia, neutrophilia, platelets adequate, no nucleated red blood cell or immature WBCs chest x-ray: Lungs and pleura: ?No consolidation. No lung mass. No pleural effusion. Cardiomediastinal silhouette: ?Normal cardiomediastinal silhouette. IMPRESSION: No acute radiographic abnormality. ASSESSMENT: 62-year-old female with chronic leukocytosis secondary to chronic bronchitis and tobacco abuse with recurrent urinary tract infection. Secondary polycythemia secondary to tobacco abuse vs R/O polycythemia rubra vera. Diabetes- poorly controlled PLAN: - I strongly encouraged patient follow-up with Dr. Cole regarding smoking cessation AND diabetes management. - Ritalin may be cause of, or contribute to her insomnia. -Additional tests including CRP, EPO level, carboxyhemoglobin, and JAK2- v617F mutation ordered today -Repeat urinalysis and urine culture and follow up with PCP for urinary symptoms and possible UTI. -Repeat CBC OV in 1 month I spent 60 minutes in the visit, with more than 50% of the total [id number] time of the visit in counseling / coordination of care. The patient and family were allowed enough time to ask questions. All questions were answered to their satisfaction. Patient and family verbalized understanding of Leukocytosis and polycythemia and agreed to follow-up with Dr. Cole. Vivian Diaz MD. ELECTRONICALLY SIGNED CNOVSP Observed: 09/10/2017 Status: COMPLETED Source: [place] 9:10 AM [facility] REPOSITORY Visit (SP) Office (DYANA) IVET VALERO ([id number]) 1955 F Date Time Provider Department 09/10/17 9:10 AM VIVIAN DIAZ During your visit today, we recorded the following information about you: Temperature Pulse Blood pressure Weight 97.2 degrees 117/minute 144/80 88 kg Height 1.63 m Lucía Butcher LPN, LPN 09/10/2017 9:25 AM Signed New patient, discuss recent dx: Leukocytosis RONNI Johns MD 09/10/2017 9:[address] Cole for quit smoking Vivian Diaz MD 09/11/2017 7:50 AM Signed Hematology and Medical Oncology PATIENT NAME: Ivet Valero. CLINIC NO: [id number]. ATTENDING PHYSICIAN: Vivian Diaz MD. DATE OF SERVICE:09/10/2017. DIAGNOSIS: Polycythemia, leukocytosis. Consultation requested by Dr. Cole for an opinion regarding polycythemia. My final recommendations will be communicated back to the requesting physician by way of shared Medical record or letter to requesting physician via US mail. PERFORMANCE STATUS:80% HPI: This 62-year-old moderately obese female with history of chronic bronchitis, tobacco abuse who presented with chronic leukocytosis and polycythemia. The patient also has history of frequent recurrent urinary tract infection after previous surgery for prolapsed bladder. Patient also has a history of gastritis/duodenitis. Patient has no history of fever, chills or night sweats. She has chronic fatigue but no unexpected weight loss. Her recent chest x-ray showed no active disease or infection. She has smoked tobacco for 30 plus pack year, currently 1 half pack per day. No history of alcohol use. Patient denies frequent headaches, visual changes, or symptom of hyperviscosity. She has arthritic pain as well as myalgia along with chronic fatigue. Patient has difficulty sleeping/ insomnia which also exacerbate her symptom of fibromyalgia. She has been taking Ritalin recently for bipolar disorder. She recently complained of increased urinary frequency as well as dysuria. She has a chronic nonproductive cough which is not worse than before. Patient deny history of sleep apnea. She denied a history of hematuria, hemoptysis, or melanoma. She has no family history of cancer, or polycythemia. MEDICATIONS: Current Outpatient Prescriptions: LORazepam (ATIVAN) 0.5 mg tab Take 0.5 mg by mouth twice daily as needed. Blood-Glucose Meter (BLOOD GLUCOSE MONITORING) monitoring kit 1 Each as needed. blood sugar diagnostic (BLOOD GLUCOSE TEST) test strip Test blood sugar twice daily Lancets lancets Check blood sugar twice daily metoclopramide HCl (REGLAN) 10 mg tablet Take 1 tablet by mouth four times daily as needed. benzonatate (TESSALON PERLE) 100 mg capsule Take 1 capsule by mouth three times daily as needed. albuterol (PROVENTIL) 2.5 mg /3 mL (0.083 %) nebulizer solution Use 2.5 mg via nebulizer every 4 hours as needed for Wheezing/Shortness of Breath. albuterol HFA (VENTOLIN HFA) 90 mcg/actuation inhaler Inhale 2 Puffs as instructed every 4 hours as needed. nystatin (MYCOSTATIN) cream Apply 1 application to affected area twice daily. pregabalin (LYRICA) 150 mg capsule Take 1 capsule by mouth three times daily. amitriptyline (ELAVIL) 25 mg tablet Take 1 tablet by mouth daily at bedtime. omeprazole (PRILOSEC) 20 mg capsule Take 1 capsule by mouth once daily. sucralfate (CARAFATE) 1 gram tablet Take 1 tablet by mouth four times daily as needed. fluticasone (FLONASE) 50 mcg/actuation nasal spray Use 2 Sprays in each nostril once daily. Rinse mouth after use. methylphenidate (RITALIN) 20 mg tablet Take 20 mg by mouth twice daily. No current facility-administered medications for this visit. . ALLERGIES: ALLERGIES Allergen Reactions - Penicillins Hives - Sulfa (Sulfonamide * Rash, Other: See Comments Blisters and sore in throat . PAST MEDICAL HISTORY: 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 - Depressive disorder, not elsewhere classified - DM (diabetes mellitus) (HCC) - Fibromyalgia - Migraine with aura, without mention of intractable migraine without mention of status migrainosus - Panic disorder without agoraphobia had hx of failed urine screen - Recurrent UTI - Tobacco use disorder . PAST SURGICAL HISTORY: PAST SURGICAL HISTORY Procedure Laterality Date - CHOLECYSTECTOMY - EGD W/O OR W/BRUSH/WASH 12/06/2015 EGD - LIGATE FALLOPIAN TUBE Tubal ligation - PAST SURGICAL HISTORY OF Left 03/2014 ANKLE FRACTURE REPAIR - S SLING BLADDER 2012 ANDamp; - TOTAL ABDOM HYSTERECTOMY Hysterectomy, REJI . FAMILY HISTORY: FAMILY HISTORY Problem Relation Age of Onset - Hypertension Mother . SOCIAL HISTORY:Social History Marital status: Spouse name: Years of education: Number of children: Social History Main Topics Smoking status: Current Every Day Smoker Packs/day: 0.50 Years: 30.00 Types: Cigarettes Smokeless status: Never Used Comment: smoking 4 cigs per day Alcohol use: No Drug use: No . REVIEW OF SYSTEMS: CONSTITUTIONAL: No fevers, chills, nightsweats, unintended weight loss + chronic fatigue HEENT: Denies frequent or severe heaches, nasal congestion/sinus symptoms, problematic allergy problems. EYES: No diplopia or blurry vision. CARDIOVASCULAR: No chest pain, dyspnea, palpitations, orthopnea, PND, ankle edema. PULM: No dyspnea, _+ Chronic cough. GI: No dysphagia/odynophagia, problematic reflux, constipation, diarrhea, changes in stool habits, hematochezia, melena. : urinary complaints, including urinary frequency and dysuria, No gross hematuria or pyuria. NEURO: No new balance problems, peripheral weakness/paresthesias or numbness of concern. MUSC-SKEL: No new joint pain, swelling, or erythema. PSY: No concerns regarding depression, anxiety or panic. INTEGUMENTARY: No new skin changes (rash, new or changing mole, new growth) PHYSICAL EXAMINATION: 62-year-old obese female in no acute distress BP 144/80 Pulse 117 Temp 97.2 Ht 5' 4.173ANDquot; (1.63m) Wt 194 lb (88.0kg) SpO2 95% BMI 33.12 kg/(m2). HEENT: Head is normocephalic, atraumatic. Sclerae white, conjunctivae pink. PEERL. EOMs are intact. Oropharynx is benign.with good dentition. LYMPHATICS: There is no palpable adenopathy in the neck, supraclavicular region, axillae, or groin. LUNGS: Lungs are clear to percussion and auscultation. increased AP diameter, no wheezing diminished breath sounds HEART: Heart is normal without murmurs, gallops, or rubs. ABDOMEN: obese, Soft and nontender without organomegaly. No masses can be palpated. EXTREMITIES: Are without edema. NEUROLOGIC: Exam is physiologic LABORATORY DATA: Component Latest Ref Rng ANDamp; Units 09/10/2017 WBC, Hersey 3.70 - 11.00 k/uL 15.25 (H) RBC, Hersey 3.90 - 5.20 m/uL 5.35 (H) Hemoglobin, Alex 11.5 - 15.5 g/dL 16.0 (H) Hematocrit, Alex 36.0 - 46.0 % 47.9 (H) MCV, Alex 80.0 - 100.0 fL 89.5 MCH, Alex 26.0 - 34.0 pg 29.9 MCHC, Alex 30.5 - 36.0 g/dL 33.4 RDW, Alex 11.5 - 15.0 % 13.6 Platelet Cnt, Alex 150 - 400 k/uL 286 MPV, Alex 9.0 - 12.7 fL 9.7 Absol Gran Count 1.45 - 7.50 k/uL 10.66 (H) Component Latest Ref Rng ANDamp; Units 09/10/2017 Hemoglobin A1C 4.3 - 5.6 % 11.5 (H) Estimated Average Glucose mg/dL 283 Carboxyhemoglobin, Venous ANDlt;2.0 % 5.9 (H) CRP ANDlt;0.9 mg/dL 1.1 (H) peripheral blood smear: Polycythemia, neutrophilia, platelets adequate, no nucleated red blood cell or immature WBCs chest x-ray: Lungs and pleura: ?No consolidation. No lung mass. No pleural effusion. Cardiomediastinal silhouette: ?Normal cardiomediastinal silhouette. IMPRESSION: No acute radiographic abnormality. ASSESSMENT: 62-year-old female with chronic leukocytosis secondary to chronic bronchitis and tobacco abuse with recurrent urinary tract infection. Secondary polycythemia secondary to tobacco abuse vs R/O polycythemia rubra vera. Diabetes- poorly controlled PLAN: - I strongly encouraged patient follow-up with Dr. Cole regarding smoking cessation ANDamp; diabetes management. - Ritalin may be cause of, or contribute to her insomnia. -Additional tests including CRP, EPO level, carboxyhemoglobin, and JAK2- v617F mutation ordered today -Repeat urinalysis and urine culture and follow up with PCP for urinary symptoms and possible UTI. -Repeat CBC OV in 1 month I spent 60 minutes in the visit, with more than 50% of the total [id number] time of the visit in counseling / coordination of care. The patient and family were allowed enough time to ask questions. All questions were answered to their satisfaction. Patient and family verbalized understanding of Leukocytosis and polycythemia and agreed to follow-up with Dr. Cole. Vivian Diaz MD. ELECTRONICALLY SIGNED Referring Provider: RICCI COLE [[id number]] Allergies As of Date: 09/10/2017 Noted Allergy Reaction PENICILLINS 05/25/2008 4 - Hives SULFA (SULFONAMIDE ANTIBIOTICS) 09/19/2016 2 - Rash 14 - Other: See Comments Comments: Blisters and sore in throat Date Reviewed: 09/10/2017 Reviewed by: Lucía Vela (Ronni) RONNI Butcher - Fully Assessed Reason for Visit: New Patient [172] Primary Visit Diagnosis:Tobacco use disorder [F17.200] Other Visit Diagnoses:Fibromyalgia [M79.7] History of recurrent UTIs [Z87.440] Dysuria [R30.0] Secondary polycythemia [D75.1] Weakness [R53.1] Order(s):URINALYSIS WITH MICROSCOPIC [SQUAWMIC] Order #: [id number]. #:[id number] URINE CULTURE [SQURCUL] Order #: [id number]. #:[id number] C-REACTIVE PROTEIN (CRP) [SQCRP] Order #: [id number] FUTURE ERYTHROPOIETIN/EPO [SQEPO] Order #: [id number] FUTURE CARBOXYHEMOGLOBIN NIRANJAN [SQCO] Order #: [id number] FUTURE JAK2 V617F MUTATION [SQJAK2] Order #: [id number] FUTURE Level of Service: NEW PATIENT VISIT LEVEL 5 [[id number]] Disposition: Return in about 4 weeks (around 10/08/2017). Follow-up and Disposition History Recorded Prescriptions as of 09/10/2017 Sig: LORAZEPAM 0.5 MG TABLET Take 0.5 mg by mouth twice da* BLOOD-GLUCOSE METER KIT 1 Each as needed. BLOOD SUGAR DIAGNOSTIC STRIPS Test blood sugar twice daily LANCETS Check blood sugar twice daily METOCLOPRAMIDE 10 MG TABLET Take 1 tablet by mouth four t* BENZONATATE 100 MG CAPSULE Take 1 capsule by mouth three* ALBUTEROL SULFATE 2.5 MG/3 ML* Use 2.5 mg via nebulizer ever* ALBUTEROL SULFATE HFA 90 MCG/* Inhale 2 Puffs as instructed * NYSTATIN 100,000 UNIT/GRAM TO* Apply 1 application to affect* PREGABALIN 150 MG CAPSULE Take 1 capsule by mouth three* AMITRIPTYLINE 25 MG TABLET Take 1 tablet by mouth daily * OMEPRAZOLE 20 MG CAPSULE,LESIA* Take 1 capsule by mouth once * SUCRALFATE 1 GRAM TABLET Take 1 tablet by mouth four t* FLUTICASONE 50 MCG/ACTUATION * Use 2 Sprays in each nostril * METHYLPHENIDATE 20 MG TABLET Take 20 mg by mouth twice manny* Medication notes this encounter NYSTATIN 100,000 UNIT/GRAM TOPICAL CREAM >> Lucía Butcher LPN, LPN 09/10/2017 9:18 AM >> LUCÍA BUTCHER FriSep 10, 2017 9:18 AM As needed DULOXETINE 60 MG CAPSULE,DELAYED RELEASE >> Lucía uBtcher LPN, LPN 09/10/2017 9:18 AM >> LUCÍA BUTCHER FriSep 10, 2017 9:18 AM Hasn't taken in 3 months SITAGLIPTIN 50 MG TABLET >> Lucía Butcher LPN, LPN 09/10/2017 9:19 AM >> LUCÍA BUTCHER FriSep 10, 2017 9:19 AM Hasn't started yet FLUOXETINE 40 MG CAPSULE >> Lucía Butcher LPN, LPN 09/10/2017 9:18 AM >> LUCÍA BUTCHER FriSep 10, 2017 9:18 AM Hasn't taken in 5 months Problem List As Of Date 09/10/2017 Noted Resolved TOBACCO USE DISORDER [F17.200] CERVICAL DISC DEGEN [M50.30] More... Chronic bronchitis (HCC) [J42] DEPRESSIVE DISORDER NEC [F32.9] PERSISTENT INSOMNIA [G47.00] INVALID FOR* MGRN W [facility] WO [facility]C MGRN [G43.109] PANIC DISORDER WITHOUT AGORAPHOBIA [F41.0] Fibromyalgia [M79.7] History of recurrent UTIs [Z87.440] INVALID FOR* DM (diabetes mellitus) (HCC) [E11.9] Secondary polycythemia [D75.1] INVALID FOR* Other instructions from your clinician: See Dr. Cole for quit smoking Visit Notes: >> Lucía Vela (Ronni) RONNI Butcher FriSep 10, 2017 9:20 AM Status: Signed New patient, discuss recent dx: Leukocytosis Lucía Butcher LPN Encounter Status:Closed by VIVIAN DIAZ MD on 09/11/17 ALEX ABS GR + CBC Collected: 09/10/2017 Status: F Source: [facility] 8:53 AM [facility] REPOSITORY TYPE CODE TESTS RESULT OUT OF REFERENCE UNITS RANGE LAB WWBC 3.70-11.00 k/uL [place] High WBC 15.25 LAB WRBC 3.90-5.20 m/uL [place] High RBC 5.35 LAB WHGB 11.5-15.5 g/dL [place] High Hemoglobin 16.0 LAB WHCT 36.0-46.0 % [place] High Hematocrit 47.9 LAB WMCV 80.0-100.0 fL [place] MCV 89.5 LAB WMCH 26.0-34.0 pg [place] MCH 29.9 LAB WMCHC 30.5-36.0 g/dL [place] MCHC 33.4 LAB WRDW 11.5-15.0 % [place] RDW 13.6 LAB WPLT 150-400 k/uL [place] Platelet Cnt 286 LAB WMPV 9.0-12.7 fL [place] MPV 9.7 Result Comment: Test performed at: [facility], [address] [place] [address] Rd[address] [place] [address]. LAB ABGRAN 1.45-7.50 k/uL High Absol 10.66 Gran Count HEMOGLOBIN A1C Collected: 09/10/2017 Status: F Source: [place] 8:53 AM [facility] REPOSITORY TYPE CODE TESTS RESULT OUT OF REFERENCE UNITS RANGE LAB HGBA1C 4.3-5.6 % High Hemoglobin A1c 11.5 LAB HBA0 mg/dL Est. Average Glucose 283 Result Comment: eAG: (Estimated average glucose) is a calculated value from HgbA1c and is jewelry sales representative of the average blood glucose level in the last 2-3 month period. Performed By: #### HBA1C #### [facility] [address] [place], [place] [address] PROGRESS Observed: 09/02/2017 Status: COMPLETED Source: [place] 3:30 PM [facility] REPOSITORY HNO ID: [id number] Author: Elisabet Zepeda (Pharmacist) Service: (none) Author Type: Pharmacist Type: Progress Notes Filed: 09/02/2017 5:38 PM Note Text: Patient consents to pharmacy collaborative practice agreement. REASON FOR CONSULT: DM GOALS: A1c < 7% CONSULTING PROVIDER: Dr. Cole Date of Consult: 06/2017 Ivet Valero is a 62 year old female was last seen in [facility] by PCP, Dr. Cole on 08/20/17. Patient is presenting today for initial pharmacotherapy management appointment for DM. At last PCP visit patient was continued on current regimen. INTERIM HISTORY: Nausea for last 2 years, is getting a work-up Seeing GI outside of [facility] on in [place] Took metformin for 6 weeks and wasn't feeling well Not taking it now Not taking the glipizide either d/t upset stomach Asking about new injections she sees commercials for on TV Last checked BG month ago Meter disappeared RENONCILE [employer] Hx: up to date Current DM Medications: None Current HTN Medications: None ? Patient denies CP, SOB, KUNZ, blurred vision, dizziness or lightheadedness ? Patient denies symptoms of hypoglycemia (sweating, anxiety, palpitations, hunger, and tremor) ? Patient reports symptoms of hyperglycemia (polyuria, polydipsia, polyphagia) ? Patient reports potential medication adverse effects (GI upset with metformin and glipizide) DIET/EXERCISE/SOCIAL Hx: No real meals d/t very sensitive stomach and no dentures currently ? Applesauce, mashed potatoes, chicken breast, turkey, roast beef ? Beverages: 2 L josey conner almost daily, 1 cup coffee in morning, tea, fruit juice sometimes ? Exercise: no ? Tobacco: yes, trying to quit, will quit after stomach issues are figured out- willing to try the patch ? Alcohol: denies ? Illicits: denies MEDICATIONS: ? Pill bottles are not present. ? Adherence: denies missed doses. ? [facility] ? Rx coverage: Medicare/Medicaid ? Affordability: no issues ? Diabetes supplies: needs new kit ? Organization System: none ACTIVE PROBLEM LIST Tobacco Use Disorder Degeneration of Cervical Intervertebral Disc Chronic Bronchitis (Hcc) Depressive Disorder, Not Elsewhere Classified Persistent Disorder of Initiating Or Maintaining Sleep Migraine With Aura, Without Mention of Intractable Migraine Without Mention of Status Migrainosus Panic Disorder Without Agoraphobia Fibromyalgia History of Recurrent Utis Dm (Diabetes Mellitus) ([facility]) 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 - Depressive disorder, not elsewhere classified - DM (diabetes mellitus) ([facility]) - Fibromyalgia - Migraine with aura, without mention of intractable migraine without mention of status migrainosus - Panic disorder without agoraphobia had hx of failed urine screen - Recurrent UTI - Tobacco use disorder ALLERGIES Allergen Reactions - Penicillins Hives - Sulfa (Sulfonamide * Rash, Other: See Comments Blisters and sore in throat Current Outpatient Prescriptions: metoclopramide HCl (REGLAN) 10 mg tablet Take 1 tablet by mouth four times daily as needed. benzonatate (TESSALON PERLE) 100 mg capsule Take 1 capsule by mouth three times daily as needed. albuterol (PROVENTIL) 2.5 mg /3 mL (0.083 %) nebulizer solution Use 2.5 mg via nebulizer every 4 hours as needed for Wheezing/Shortness of Breath. albuterol HFA (VENTOLIN HFA) 90 mcg/actuation inhaler Inhale 2 Puffs as instructed every 4 hours as needed. nystatin (MYCOSTATIN) cream Apply 1 application to affected area twice daily. nystatin (MYCOSTATIN) cream Apply 1 application to affected area twice daily. pregabalin (LYRICA) 150 mg capsule Take 1 capsule by mouth three times daily. amitriptyline (ELAVIL) 25 mg tablet Take 1 tablet by mouth daily at bedtime. omeprazole (PRILOSEC) 20 mg capsule Take 1 capsule by mouth once daily. sucralfate (CARAFATE) 1 gram tablet Take 1 tablet by mouth four times daily as needed. FLUoxetine HCl (PROZAC) 40 mg capsule Take 1 capsule by mouth once daily. fluticasone (FLONASE) 50 mcg/actuation nasal spray Use 2 Sprays in each nostril once daily. Rinse mouth after use. glipiZIDE (GLUCOTROL) 5 mg tablet Take 5 mg by mouth twice daily before meals. metFORMIN ER (GLUCOPHAGE XR) 500 mg 24 hr tablet Take 1 tablet by mouth daily with breakfast. No current facility-administered medications for this visit. Rx meds not listed in EPIC: none OTCs: none Herbals: none GLYCEMIC CONTROL: ? Glucometer present at visit: no ? SMBG?s: not checking ? On KIM/ARB: No ? On Statin: No ? On ASA: No Last 3 Encounter BP Readings: Date: BP: 08/20/2017 162/92 07/31/2017 162/82 07/04/2017 140/86 Wt: 89.8 kg (198 lb) BMI: 34.14 kg/(m2) LABS Lab Results Component Value Date HBA1C 9.0 06/02/2017 HBA1C 9.3 09/18/2016 CMP: Glucose 304 08/20/2017 BUN 5 08/20/2017 Creatinine 0.50 08/20/2017 Sodium 135 08/20/2017 Potassium 3.7 08/20/2017 Chloride 95 08/20/2017 CO2 25 08/20/2017 Protein, Total 6.9 06/02/2017 Albumin 4.2 06/02/2017 Calcium 9.1 08/20/2017 Alkaline Phosphatase 80 06/02/2017 Bilirubin, Total 0.3 06/02/2017 AST 19 06/02/2017 ALT 16 06/02/2017 Estimated Creatinine Clearance: 129.6 mL/min (based on Cr of 0.5). Last Lipid Panel Lab Results Component Value Date CHOL 237 06/02/2017 Lab Results Component Value Date HDL 53 06/02/2017 Lab Results Component Value Date LDL 114 06/02/2017 Lab Results Component Value Date TG 350 06/02/2017 No results found for: UALBCR PHARMACOTHERAPY ASSESSMENT/PLAN: 1. Type 2 diabetes mellitus without complication, without long-term current use of insulin (HCC) - ICD9: 250.00, ICD10: E11.9 A1c goal < 7%, patient is not at goal (9% on 06/02/17). Not currently testing BGs, sent new prescription for DM supplies to pharmacy. Not taking any medicines d/t stomach upset. Discussed AE of GLP-1 agonists and potential for increased nausea and patient prefers to avoid. Willing to trial DPP-4 inhibitor. Will start at half dose to see if tolerates, then increase to full dose. Also discussed no-sugar alternatives to daily 2L josey conner to treat nausea (plain carbonated water with lemon and josey) and she will try this. Discussed potential for high BG's to contribute to nausea as well. Given no changes to meds in last 3 months, will post-pone A1c until next month if she is taking daily DPP-4. Renal fxn and LFTs WNL ? START sitagliptin 50mg once daily ? Instructed patient to start checking FBGs and PPBGs ? Eye exam: has appointment on 09/12 ? Foot exam: 06/02/17 ? A1c in 1 month - BLOOD-GLUCOSE METER KIT - BLOOD SUGAR DIAGNOSTIC STRIPS BP goal < 130/80, pt is has historically been at goal, but last couple readings elevated. Does not carry diagnosis of HTN. Will continue to monitor. Pt is not prescribed statin therapy (indicated for high intensity d/t DM and ASCVD risk score 17.6%). Elevated risk d/t smoking (8.7% without smoking). Given current stomach issues, did not discuss today. Will discuss at future visits. She could benefit from daily baby aspirin as well. 2. Tobacco use disorder - ICD9: 305.1, ICD10: F17.200 Patient at Contemplative Stage of smoking cessation. Will continue to discuss at future visits, and as stomach issues improve. She is willing to try the nicotine patch (no gum because no dentures currently). - Cessation encouraged. - Physiologic and physical aspects of tobacco addiction as well as strategies for quitting were discussed. - Counseling was given focusing on the harmful effects of this addiction especially given the patient's medical condition(s) which will be worsened because of the chemicals in tobacco. Patient is scheduled to see PCP will schedule. Patient to return to clinic for PharmD f/u on 09/16 - telephonic. Patient verbalized understanding of instructions. Elisabet Zepeda PharmD, BCPS CNOV Observed: 09/02/2017 Status: COMPLETED Source: [place] 3:30 PM [facility] REPOSITORY Office Visit (PHMEWO) IVET VALERO ([id number]) 1955 F Date Time Provider Department 09/02/17 3:30 PM DUANE (PHARMACIST)ELISABET During your visit today, we recorded the following information about you: GREGORY HINES 09/02/2017 5:38 PM Signed Patient consents to pharmacy collaborative practice agreement. REASON FOR CONSULT: DM GOALS: A1c ANDlt; 7% CONSULTING PROVIDER: Dr. Cole Date of Consult: 06/2017 Ivet Valero is a 62 year old female was last seen in [facility] by PCP, Dr. Cole on 08/20/17. Patient is presenting today for initial pharmacotherapy management appointment for DM. At last PCP visit patient was continued on current regimen. INTERIM HISTORY: Nausea for last 2 years, is getting a work-up Seeing GI outside of [facility] on in [place] Took metformin for 6 weeks and wasn't feeling well Not taking it now Not taking the glipizide either d/t upset stomach Asking about ANDquot;new injectionsANDquot; she sees commercials for on TV Last checked BG month ago Meter disappeared [employer] Hx: up to date Current DM Medications: None Current HTN Medications: None ? Patient denies CP, SOB, KUNZ, blurred vision, dizziness or lightheadedness ? Patient denies symptoms of hypoglycemia (sweating, anxiety, palpitations, hunger, and tremor) ? Patient reports symptoms of hyperglycemia (polyuria, polydipsia, polyphagia) ? Patient reports potential medication adverse effects (GI upset with metformin and glipizide) DIET/EXERCISE/SOCIAL Hx: No real meals d/t ANDquot;very sensitive stomachANDquot; and no dentures currently ? Applesauce, mashed potatoes, chicken breast, turkey, roast beef ? Beverages: 2 L josey conner almost daily, 1 cup coffee in morning, tea, fruit juice sometimes ? Exercise: no ? Tobacco: yes, trying to quit, will quit after stomach issues are figured out- willing to try the patch ? Alcohol: denies ? Illicits: denies MEDICATIONS: ? Pill bottles are not present. ? Adherence: denies missed doses. ? [facility] ? Rx coverage: Medicare/Medicaid ? Affordability: no issues ? Diabetes supplies: needs new kit ? Organization System: none ACTIVE PROBLEM LIST Tobacco Use Disorder Degeneration of Cervical Intervertebral Disc Chronic Bronchitis (Hcc) Depressive Disorder, Not Elsewhere Classified Persistent Disorder of Initiating Or Maintaining Sleep Migraine With Aura, Without Mention of Intractable Migraine Without Mention of Status Migrainosus Panic Disorder Without Agoraphobia Fibromyalgia History of Recurrent Utis Dm (Diabetes Mellitus) ([facility]) 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 - Depressive disorder, not elsewhere classified - DM (diabetes mellitus) ([facility]) - Fibromyalgia - Migraine with aura, without mention of intractable migraine without mention of status migrainosus - Panic disorder without agoraphobia had hx of failed urine screen - Recurrent UTI - Tobacco use disorder ALLERGIES Allergen Reactions - Penicillins Hives - Sulfa (Sulfonamide * Rash, Other: See Comments Blisters and sore in throat Current Outpatient Prescriptions: metoclopramide HCl (REGLAN) 10 mg tablet Take 1 tablet by mouth four times daily as needed. benzonatate (TESSALON PERLE) 100 mg capsule Take 1 capsule by mouth three times daily as needed. albuterol (PROVENTIL) 2.5 mg /3 mL (0.083 %) nebulizer solution Use 2.5 mg via nebulizer every 4 hours as needed for Wheezing/Shortness of Breath. albuterol HFA (VENTOLIN HFA) 90 mcg/actuation inhaler Inhale 2 Puffs as instructed every 4 hours as needed. nystatin (MYCOSTATIN) cream Apply 1 application to affected area twice daily. nystatin (MYCOSTATIN) cream Apply 1 application to affected area twice daily. pregabalin (LYRICA) 150 mg capsule Take 1 capsule by mouth three times daily. amitriptyline (ELAVIL) 25 mg tablet Take 1 tablet by mouth daily at bedtime. omeprazole (PRILOSEC) 20 mg capsule Take 1 capsule by mouth once daily. sucralfate (CARAFATE) 1 gram tablet Take 1 tablet by mouth four times daily as needed. FLUoxetine HCl (PROZAC) 40 mg capsule Take 1 capsule by mouth once daily. fluticasone (FLONASE) 50 mcg/actuation nasal spray Use 2 Sprays in each nostril once daily. Rinse mouth after use. glipiZIDE (GLUCOTROL) 5 mg tablet Take 5 mg by mouth twice daily before meals. metFORMIN ER (GLUCOPHAGE XR) 500 mg 24 hr tablet Take 1 tablet by mouth daily with breakfast. No current facility-administered medications for this visit. Rx meds not listed in EPIC: none OTCs: none Herbals: none GLYCEMIC CONTROL: ? Glucometer present at visit: no ? SMBG?s: not checking ? On KIM/ARB: No ? On Statin: No ? On ASA: No Last 3 Encounter BP Readings: Date: BP: 08/20/2017 162/92 07/31/2017 162/82 07/04/2017 140/86 Wt: 89.8 kg (198 lb) BMI: 34.14 kg/(m2) LABS Lab Results Component Value Date HBA1C 9.0 06/02/2017 HBA1C 9.3 09/18/2016 CMP: Glucose 304 08/20/2017 BUN 5 08/20/2017 Creatinine 0.50 08/20/2017 Sodium 135 08/20/2017 Potassium 3.7 08/20/2017 Chloride 95 08/20/2017 CO2 25 08/20/2017 Protein, Total 6.9 06/02/2017 Albumin 4.2 06/02/2017 Calcium 9.1 08/20/2017 Alkaline Phosphatase 80 06/02/2017 Bilirubin, Total 0.3 06/02/2017 AST 19 06/02/2017 ALT 16 06/02/2017 Estimated Creatinine Clearance: 129.6 mL/min (based on Cr of 0.5). Last Lipid Panel Lab Results Component Value Date CHOL 237 06/02/2017 Lab Results Component Value Date HDL 53 06/02/2017 Lab Results Component Value Date LDL 114 06/02/2017 Lab Results Component Value Date TG 350 06/02/2017 No results found for: UALBCR PHARMACOTHERAPY ASSESSMENT/PLAN: 1. Type 2 diabetes mellitus without complication, without long-term current use of insulin (HCC) - ICD9: 250.00, ICD10: E11.9 A1c goal ANDlt; 7%, patient is not at goal (9% on 06/02/17). Not currently testing BGs, sent new prescription for DM supplies to pharmacy. Not taking any medicines d/t stomach upset. Discussed AE of GLP-1 agonists and potential for increased nausea and patient prefers to avoid. Willing to trial DPP-4 inhibitor. Will start at half dose to see if tolerates, then increase to full dose. Also discussed no-sugar alternatives to daily 2L josey conner to treat nausea (plain carbonated water with lemon and josey) and she will try this. Discussed potential for high BG's to contribute to nausea as well. Given no changes to meds in last 3 months, will post-pone A1c until next month if she is taking daily DPP-4. Renal fxn and LFTs WNL ? START sitagliptin 50mg once daily ? Instructed patient to start checking FBGs and PPBGs ? Eye exam: has appointment on 09/12 ? Foot exam: 06/02/17 ? A1c in 1 month - BLOOD-GLUCOSE METER KIT - BLOOD SUGAR DIAGNOSTIC STRIPS BP goal ANDlt; 130/80, pt is has historically been at goal, but last couple readings elevated. Does not carry diagnosis of HTN. Will continue to monitor. Pt is not prescribed statin therapy (indicated for high intensity d/t DM and ASCVD risk score 17.6%). Elevated risk d/t smoking (8.7% without smoking). Given current stomach issues, did not discuss today. Will discuss at future visits. She could benefit from daily baby aspirin as well. 2. Tobacco use disorder - ICD9: 305.1, ICD10: F17.200 Patient at Contemplative Stage of smoking cessation. Will continue to discuss at future visits, and as stomach issues improve. She is willing to try the nicotine patch (no gum because no dentures currently). - Cessation encouraged. - Physiologic and physical aspects of tobacco addiction as well as strategies for quitting were discussed. - Counseling was given focusing on the harmful effects of this addiction especially given the patient's medical condition(s) which will be worsened because of the chemicals in tobacco. Patient is scheduled to see PCP will schedule. Patient to return to clinic for PharmD f/u on 09/16 - telephonic. Patient verbalized understanding of instructions. Elisabet Zepeda, PharmD, BCPS ELISABTE ZEPEDA PHARMACIST 09/02/2017 4:15 PM Signed Thanks for coming in today! Flu shot Things we talked about: [place] water + lemon + josey tea Call Elisabet if any issues with new medicine Thank you, Fabiana HinesD Referring Provider: RICCI COLE [[id number]] Allergies As of Date: 09/02/2017 Noted Allergy Reaction PENICILLINS 05/25/2008 4 - Hives SULFA (SULFONAMIDE ANTIBIOTICS) 09/19/2016 2 - Rash 14 - Other: See Comments Comments: Blisters and sore in throat Date Reviewed: 07/04/2017 Reviewed by: Marylu Bullock Ma - Fully Assessed Reason for Visit: Allied Health Visit [5] Cmt: DM initial Primary Visit Diagnosis:Type 2 diabetes mellitus without complication, without long-term current use of insulin (HCC) [E11.9] Other Visit Diagnoses:Medication management [Z79.899] Tobacco use disorder [F17.200] Order(s):HGB A1C [ZADFC6L] Order #: [id number] FUTURE DULoxetine (CYMBALTA) 60 mg capsuleTake 1 capsule by mouth once daily.Disp: Rfl: Blood-Glucose Meter (BLOOD GLUCOSE MONITORING) monitoring kit1 Each as needed.Disp: 1 EachRfl: 0 blood sugar diagnostic (BLOOD GLUCOSE TEST) test stripTest blood sugar twice dailyDisp: 50 StripRfl: 3 Lancets lancetsCheck blood sugar twice dailyDisp: 100 EachRfl: 3 sitaGLIPtin (JANUVIA) 50 mg tabletTake 1 tablet by mouth once daily.Disp: 30 tabletRfl: 0 Prescriptions as of 09/02/2017 Sig: METOCLOPRAMIDE 10 MG TABLET Take 1 tablet by mouth four t* NYSTATIN 100,000 UNIT/GRAM TO* Apply 1 application to affect* PREGABALIN 150 MG CAPSULE Take 1 capsule by mouth three* AMITRIPTYLINE 25 MG TABLET Take 1 tablet by mouth daily * OMEPRAZOLE 20 MG CAPSULE,LESIA* Take 1 capsule by mouth once * SUCRALFATE 1 GRAM TABLET Take 1 tablet by mouth four t* FLUTICASONE 50 MCG/ACTUATION * Use 2 Sprays in each nostril * LORAZEPAM 0.5 MG TABLET Take 0.5 mg by mouth twice da* METHYLPHENIDATE 20 MG TABLET Take 20 mg by mouth twice manny* DULOXETINE 60 MG CAPSULE,LESIA* Take 1 capsule by mouth once * BLOOD-GLUCOSE METER KIT 1 Each as needed. BLOOD SUGAR DIAGNOSTIC STRIPS Test blood sugar twice daily LANCETS Check blood sugar twice daily SITAGLIPTIN 50 MG TABLET Take 1 tablet by mouth once d* BENZONATATE 100 MG CAPSULE Take 1 capsule by mouth three* ALBUTEROL SULFATE 2.5 MG/3 ML* Use 2.5 mg via nebulizer ever* ALBUTEROL SULFATE HFA 90 MCG/* Inhale 2 Puffs as instructed * FLUOXETINE 40 MG CAPSULE Take 1 capsule by mouth once * Medication notes this encounter LORAZEPAM 0.5 MG TABLET >> GREGORY HINES 09/02/2017 3:46 PM >> DUANE (PHARMACIST)ELISABET Sep 02, 2017 3:46 PM Received from: External Pharmacy Received Sig: TAKE ONE TABLET BY MOUTH TWICE DAILY NEEDED METHYLPHENIDATE 20 MG TABLET >> ELISABET ZEPEDA PHARMACIST 09/02/2017 3:46 PM >> DUANE (PHARMACIST)ELISABET Sep 02, 2017 3:46 PM Received from: External Pharmacy Received Sig: TAKE ONE TABLET BY MOUTH TWICE DAILY Problem List As Of Date 09/02/2017 Noted Resolved TOBACCO USE DISORDER [F17.200] CERVICAL DISC DEGEN [M50.30] More... Chronic bronchitis (HCC) [J42] DEPRESSIVE DISORDER NEC [F32.9] PERSISTENT INSOMNIA [G47.00] INVALID FOR* [facility] [G43.109] PANIC DISORDER WITHOUT AGORAPHOBIA [F41.0] Fibromyalgia [M79.7] History of recurrent UTIs [Z87.440] INVALID FOR* DM (diabetes mellitus) (HCC) [E11.9] Other instructions from your clinician: Thanks for coming in today! Flu shot Things we talked about: [place] water + lemon + josey tea Call Elisabet if any issues with new medicine Thank you, Elisabet Zepeda, PharmD Prescriptions ordered this encounter Disp Refills Start End DULOXETINE 60 MG CAPSULE,DELAYED REL* 09/02/2017 Class: Med Update Route: ORAL Sig: Take 1 capsule by mouth once daily. BLOOD-GLUCOSE METER KIT 1 Ea* 0 09/02/2017 Cmt: Please dispense meter preferred by patient's insurance Route: [facility] Each as needed. BLOOD SUGAR DIAGNOSTIC STRIPS 50 S* 3 09/02/2017 Cmt: Please dispense test strips with meter preferred by patient's insurance Sig: Test blood sugar twice daily LANCETS 100 * 3 09/02/2017 Sig: Check blood sugar twice daily SITAGLIPTIN 50 MG TABLET 30 t* 0 09/02/2017 Route: ORAL Sig: Take 1 tablet by mouth once daily. Medications Discontinued During This Encounter metFORMIN ER (GLUCOPHAGE XR) 500 mg * 30 t* 5 09/19/2016 09/02/2017 Route: ORAL Sig: Take 1 tablet by mouth daily with breakfast. Disc: Reason for discontinue is not on file. nystatin (MYCOSTATIN) cream 45 g 0 07/04/2017 09/02/2017 Route: TOPICAL Sig: Apply 1 application to affected area twice daily. Disc: Reason for discontinue is not on file. glipiZIDE (GLUCOTROL) 5 mg tablet 09/02/2017 Class: Historical Med Route: ORAL Sig: Take 5 mg by mouth twice daily before meals. Disc: Reason for discontinue is not on file. Encounter Status:Closed by DUANE (PHARMACIST)ELISABET on 09/02/17 CNCO Observed: 08/21/2017 Status: COMPLETED Source: [place] 12:00 AM [facility] REPOSITORY Letter Text Ricci Cole MD [facility] Ivet Valero [address] [facility] [address] [facility] #: [id number] 08/21/2017 Dear Ms. Valero, I have received the results of your recent tests. The results of your chest x ray tests were either normal or within the acceptable range. We can discuss this at your next visit. Please do not hesitate to contact me with any questions. Sincerely, Ricci Cole MD [facility] Medicine Department electronically signed to expedite mailing XR CHEST 2V FRONTAL/LAT Observed: 08/20/2017 Status: F Source: [place] 2:03 PM [facility] REPOSITORY * * *Final Report* * * DATE OF EXAM: Aug 20 2017 2:03PM WOX [id number] - XR CHEST 2V FRONTAL/LAT / PROCEDURE REASON: multiple diagnoses * * * * Physician Interpretation * * * * EXAMINATION: CHEST RADIOGRAPH (2 VIEW FRONTAL and LATERAL) Clinical History: Unspecified chronic bronchitis Bronchitis, not specified as acute or chronic M: XC2_3 Comparison: 07/09/2017 RESULT: Lines, tubes, and devices: None. Lungs and pleura: No consolidation. No lung mass. No pleural effusion. Cardiomediastinal silhouette: Normal cardiomediastinal silhouette. Other: None IMPRESSION: No acute radiographic abnormality. Production Hardener: PSCB Transcribe Date/Time: Aug 20 2017 4:00P Dictated by : BELGICA SCHAFFER MD This examination was interpreted and the report reviewed and electronically signed by: BELGICA SCHAFFER MD on Aug 20 2017 4:01PM EST [id number] Observed: 08/20/2017 Status: COMPLETED Source: [place] 1:54 PM [facility] REPOSITORY HNO ID: [id number] Author: Dania Seals Service: (none) Author Type: (none) Type: Progress Notes Filed: 08/20/2017 2:03 PM Note Text: Radiology Service Progress Note PATIENT NAME: Ivet Valero DATE OF SERVICE: August 20, 2017 TIME: 1:54 PM PATIENT IDENTITY VERIFICATION COMPLETED USING TWO (2) METHODS: Patient confirmed name verbally and Date of . PATIENT GENDER DATA: Female. status: : No status: NO. PATIENT RELEVANT IMPLANT DATA REVIEWED: Not Applicable RADIOLOGY DEPARTMENT: General X-ray: Exam(s) Completed: Chest X-Ray PERIPHERAL IV DATA: Not applicable SIGNED BY: Dania Villagran Rt August 20, 2017 1:54 PM CBC AND DIFFERENTIAL Collected: 08/20/2017 Status: F Source: [place] 1:39 PM [facility] REPOSITORY TYPE CODE TESTS RESULT OUT OF REFERENCE UNITS RANGE LAB WBC 3.70-11.00 k/uL WBC High 14.18 LAB RBC 3.90-5.20 m/uL RBC High 5.53 LAB HGB 11.5-15.5 g/dL High Hemoglobin 16.7 LAB HCT 36.0-46.0 % High Hematocrit 49.2 LAB MCV 80.0-100.0 fL MCV 89.0 LAB MCH 26.0-34.0 pG MCH 30.2 LAB MCHC 30.5-36.0 g/dL MCHC 33.9 LAB RDWCV 11.5-15.0 % RDW-CV 13.0 LAB PLTCT 150-400 k/uL Platelet High Count 408 LAB MPV 9.0-12.7 fL MPV 10.3 LAB ANEUT % Neut% 65.3 LAB AANEUT 1.45-7.50 k/uL Abs Neut High 9.26 LAB ALYMP % Lymph% 27.9 LAB AALYMP 1.00-4.00 k/uL Abs Lymph 3.95 LAB AMONO % [place]% 5.6 LAB AAMONO <0.87 k/uL Abs [place] 0.80 LAB AEOS % Eosin% 0.6 LAB AAEOS <0.46 k/uL Abs Eosin 0.08 LAB ABASO % Baso% 0.6 LAB AABASO <0.11 k/uL Abs Baso 0.09 LAB AUNRBC 0 /100 WBC NRBCs High 0.1 LAB ABNRBC <0.01 k/uL Absolute High nRBC 0.01 LAB DTYP DTYPE Auto Diff Performed By: #### CBCDIF, BMP #### [facility] [address] [place], [place] [address] BASIC METABOLIC PANL Collected: 08/20/2017 Status: F Source: [place] 1:39 PM [facility] REPOSITORY TYPE CODE TESTS RESULT OUT OF REFERENCE UNITS RANGE LAB GLU 74-99 mg/dL High Glucose 304 Result Comment: The [place] [employer] (ADA) provides guidance for cutoff values for fasting glucose and random glucose. The ADA defines fasting as no caloric intake for at least 8 hours. Fas ting plasma glucose results between 100 to 125 mg/dL indicate increased risk for diabetes (prediabetes). Fasting plasma glucose results greater than or equal to 126 mg/dL meet the criteria for diagnosis of diabetes. In the absence of unequivocal hyperglycemia, results should be confirmed by repeat testing. In a patient with classic symptoms of hyperglycemia or hyperglycemic crisis, random plasma glucose results greater than or equal to 200 mg/dL meet the criteria for diagnosis of diabetes. Reference: Standards of Medical Care in Diabetes 2016, [place] [employer]. Diabetes Care. 2016.39(Suppl 1). LAB BUN 7-21 mg/dL BUN Low 5 LAB CRET 0.58-0.96 mg/dL Creatinine Low 0.50 LAB NA 136-144 mmol/L Sodium Low 135 LAB K 3.7-5.1 mmol/L Potassium 3.7 LAB CL 97-105 mmol/L Chloride Low 95 LAB CO2 22-30 mmol/L CO2 25 LAB AGAP 9-18 mmol/L Anion Gap 15 LAB CA 8.5-10.2 mg/dL Calcium, Total 9.1 LAB GFRAA eGFR- Amer. >60 LAB GFRNAA . eGFR-All Other Races >60 Result Comment: eGFR (Estimated GFR) Units of measure: mL/min/1.73 meters squared eGFR is derived from the reexpressed MDRD Study equation using the following parameters: serum creatinine, age, gender and race. The creatinine assay has been calibrated to be traceable to IDMS. An eGFR <60 mL/min/1.73m2 for >3 months is consistent with chronic kidney disease. Refer to KDOQI guidelines for clinical interpretation. In patients with unstable renal function, e.g. those with acute kidney injury, the eGFR may not accurately reflect actual GFR. Performed By: #### CBCDIF, BMP #### [facility] [address] [place], [place] [address] PROGRESS Observed: 08/20/2017 Status: COMPLETED Source: [place] 1:18 PM [facility] REPOSITORY HNO ID: [id number] Author: Ricci Cole Service: (none) Author Type: Physician Type: Progress Notes Filed: 08/20/2017 1:25 PM Note Text: Patient presents with: Cough HPI: Patient presents today for office visit for follow up. Nursing Notes: Jaycee Cohn LPN 08/20/2017 1:03 PM Signed Patient presents today complaining of increased cough. Duration: couple of weeks. Cough is productive:YES. Fever: :Reports that in the evening sometimes. Shortness of breath:YES. Sore throat :YES. Ear Pain :YES. Chest Pain :No. Previous treatments tried: advil cough/cold, mucinex. Was treated with Doxy once and better for a few days after then came back. Didn't get much relief with Tessalon. Wanting to refill Reglan. Is scheduled to see gastro Dr Spicer on 09/10/17. Records sent to his office for review. Still did not set up appt with hematology, see pharmacy and get labs and xray MEDICATIONS: Current Outpatient Prescriptions: metoclopramide HCl (REGLAN) 10 mg tablet Take 1 tablet by mouth four times daily as needed. albuterol HFA (VENTOLIN HFA) 90 mcg/actuation inhaler Inhale 2 Puffs as instructed every 4 hours as needed. nystatin (MYCOSTATIN) cream Apply 1 application to affected area twice daily. nystatin (MYCOSTATIN) cream Apply 1 application to affected area twice daily. pregabalin (LYRICA) 150 mg capsule Take 1 capsule by mouth three times daily. amitriptyline (ELAVIL) 25 mg tablet Take 1 tablet by mouth daily at bedtime. omeprazole (PRILOSEC) 20 mg capsule Take 1 capsule by mouth once daily. sucralfate (CARAFATE) 1 gram tablet Take 1 tablet by mouth four times daily as needed. FLUoxetine HCl (PROZAC) 40 mg capsule Take 1 capsule by mouth once daily. fluticasone (FLONASE) 50 mcg/actuation nasal spray Use 2 Sprays in each nostril once daily. Rinse mouth after use. glipiZIDE (GLUCOTROL) 5 mg tablet Take 5 mg by mouth twice daily before meals. metFORMIN ER (GLUCOPHAGE XR) 500 mg 24 hr tablet Take 1 tablet by mouth daily with breakfast. No current facility-administered medications for this visit. ALLERGIES: ALLERGIES Allergen Reactions - Penicillins Hives - Sulfa (Sulfonamide * Rash, Other: See Comments Blisters and sore in throat 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 - Depressive disorder, not elsewhere classified - DM (diabetes mellitus) (HCC) - Fibromyalgia - Migraine with aura, without mention of intractable migraine without mention of status migrainosus - Panic disorder without agoraphobia had hx of failed urine screen - Recurrent UTI - Tobacco use disorder PAST SURGICAL HISTORY Procedure Laterality Date - CHOLECYSTECTOMY - EGD W/O OR W/BRUSH/WASH 12/06/2015 EGD - LIGATE FALLOPIAN TUBE Tubal ligation - PAST SURGICAL HISTORY OF Left 03/2014 ANKLE FRACTURE REPAIR - S SLING BLADDER 2012 AND - TOTAL ABDOM HYSTERECTOMY Hysterectomy, REJI FAMILY HISTORY Problem Relation Age of Onset - Hypertension Mother Social History Marital status: Spouse name: Years of education: Number of children: Social History Main Topics Smoking status: Current Every Day Smoker Packs/day: 0.50 Years: 30.00 Types: Cigarettes Smokeless status: Never Used Comment: smoking 4 cigs per day Alcohol use: No Drug use: No Reviewed current medications, allergies, past medical history, surgical history, family history and social history today. REVIEW OF SYSTEMS All other reviewed and negative other than HPI. HEALTH MAINTENANCE: Reviewed health maintenance issues today and recommended the following in detail. TETANUS due on 1968 ONE PNEUMOVAX PRIOR TO AGE 67 due on 1973 MAMMOGRAM due on 1997 COLORECTAL CANCER SCREENING,SEE MODIFIER due on 2007 DILATED RETINAL EXAM due on 04/12/2017 INFLUENZA(1) due on 04/25/2017 URINE ALBUMIN CREATININE RATIO due on 09/19/2017 VITALS: BP 162/92 Pulse 100 Temp 37.4 ?C (99.3 ?F) (Tympanic) Resp 14 Wt 89.8 kg (198 lb) BMI 34.14 kg/m2 Last 4 Encounter Wt Readings: Date: Wt: 08/20/2017 89.8 kg (198 lb) 06/02/2017 93 kg (205 lb) 11/20/2016 92.7 kg (204 lb 6.4 oz) 09/19/2016 91.2 kg (201 lb) PHYSICAL EXAMINATION: General appearance: Well appearing, alert, in no acute distress, well-hydrated, well nourished. Skin: Skin color, texture, turgor normal, no suspicious rashes or lesions Head: Normocephalic, no masses, lesions, tenderness or abnormalities Eyes: Anicteric sclera. Pupils are equally round and reactive to light. Extraocular movements are intact. Ears: External ears normal, canals clear Nose/Sinuses: Nares normal, septum midline, mucosa normal, no drainage or sinus tenderness Oropharynx: Lips, mucosa, and tongue normal, teeth and gums normal, oropharynx normal and drainage in the posterior pharynx Neck: Supple, no adenopathy; thyroid symmetric, normal size, no bruits Lungs: Lungs clear to auscultation. No wheezing, rhonchi, rales Heart: RRR without murmur, gallop, or rubs. No ectopy Abdomen: Normal abdominal exam, Abdomen soft, non-tender. Bowel sounds normal. No masses, organomegaly Extremities: No deformities, edema, skin discoloration, clubbing or cyanosis. Good capillary refill. ASSESSMENT/PLAN: 1. Acute bronchitis with chronic obstructive pulmonary disease (COPD) ([facility]) - ICD9: 491.22, ICD10: J44.0, J20.9 (primary diagnosis) - biaxin. Get labs and chest xray. Call if symptoms worsen at all or if not better in one to two weeks 2. GERD without esophagitis - ICD9: 530.81, ICD10: K21.9 - see gi. - METOCLOPRAMIDE 10 MG TABLET 3. Monocytosis - ICD9: 288.63, ICD10: D72.821 - see hematology as we discussed. 4. Type 2 diabetes mellitus without complication, without long-term current use of insulin ([facility]) - ICD9: 250.00, ICD10: E11.9 - see pharmacy Ricci Cole MD . CNOV Observed: 08/20/2017 Status: COMPLETED Source: [place] 12:20 PM [facility] REPOSITORY [facility] VALEROIVET ([id number]) 1955 F Date Time Provider Department 08/20/17 12:20 PM RICCI COLE During your visit today, we recorded the following information about you: Temperature Pulse Respiration Blood pressure 99.3 degrees 100/minute 14/minute 162/92 Weight 89.8 kg Jaycee Cohn RONNI 08/20/2017 1:03 PM Signed Patient presents today complaining of increased cough. Duration: couple of weeks. Cough is productive:YES. Fever: :Reports that in the evening sometimes. Shortness of breath:YES. Sore throat :YES. Ear Pain :YES. Chest Pain :No. Previous treatments tried: advil cough/cold, mucinex. Was treated with Doxy once and better for a few days after then came back. Didn't get much relief with Tessalon. Wanting to refill Reglan. Is scheduled to see gastro Dr Spicer on 09/10/17. Records sent to his office for review. Ricci Cole MD 08/20/2017 1:25 PM Signed Patient presents with: Cough HPI: Patient presents today for office visit for follow up. Nursing Notes: Jayceeantelmo Peñadarian RUDOLPH 08/20/2017 1:03 PM Signed Patient presents today complaining of increased cough. Duration: couple of weeks. Cough is productive:YES. Fever: :Reports that in the evening sometimes. Shortness of breath:YES. Sore throat :YES. Ear Pain :YES. Chest Pain :No. Previous treatments tried: advil cough/cold, mucinex. Was treated with Doxy once and better for a few days after then came back. Didn't get much relief with Tessalon. Wanting to refill Reglan. Is scheduled to see gastro Dr Spicer on 09/10/17. Records sent to his office for review. Still did not set up appt with hematology, see pharmacy and get labs and xray MEDICATIONS: Current Outpatient Prescriptions: metoclopramide HCl (REGLAN) 10 mg tablet Take 1 tablet by mouth four times daily as needed. albuterol HFA (VENTOLIN HFA) 90 mcg/actuation inhaler Inhale 2 Puffs as instructed every 4 hours as needed. nystatin (MYCOSTATIN) cream Apply 1 application to affected area twice daily. nystatin (MYCOSTATIN) cream Apply 1 application to affected area twice daily. pregabalin (LYRICA) 150 mg capsule Take 1 capsule by mouth three times daily. amitriptyline (ELAVIL) 25 mg tablet Take 1 tablet by mouth daily at bedtime. omeprazole (PRILOSEC) 20 mg capsule Take 1 capsule by mouth once daily. sucralfate (CARAFATE) 1 gram tablet Take 1 tablet by mouth four times daily as needed. FLUoxetine HCl (PROZAC) 40 mg capsule Take 1 capsule by mouth once daily. fluticasone (FLONASE) 50 mcg/actuation nasal spray Use 2 Sprays in each nostril once daily. Rinse mouth after use. glipiZIDE (GLUCOTROL) 5 mg tablet Take 5 mg by mouth twice daily before meals. metFORMIN ER (GLUCOPHAGE XR) 500 mg 24 hr tablet Take 1 tablet by mouth daily with breakfast. No current facility-administered medications for this visit. ALLERGIES: ALLERGIES Allergen Reactions - Penicillins Hives - Sulfa (Sulfonamide * Rash, Other: See Comments Blisters and sore in throat 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 - Depressive disorder, not elsewhere classified - DM (diabetes mellitus) (HCC) - Fibromyalgia - Migraine with aura, without mention of intractable migraine without mention of status migrainosus - Panic disorder without agoraphobia had hx of failed urine screen - Recurrent UTI - Tobacco use disorder PAST SURGICAL HISTORY Procedure Laterality Date - CHOLECYSTECTOMY - EGD W/O OR W/BRUSH/WASH 12/06/2015 EGD - LIGATE FALLOPIAN TUBE Tubal ligation - PAST SURGICAL HISTORY OF Left 03/2014 ANKLE FRACTURE REPAIR - S SLING BLADDER 2012 ANDamp; - TOTAL ABDOM HYSTERECTOMY Hysterectomy, REJI FAMILY HISTORY Problem Relation Age of Onset - Hypertension Mother Social History Marital status: Spouse name: Years of education: Number of children: Social History Main Topics Smoking status: Current Every Day Smoker Packs/day: 0.50 Years: 30.00 Types: Cigarettes Smokeless status: Never Used Comment: smoking 4 cigs per day Alcohol use: No Drug use: No Reviewed current medications, allergies, past medical history, surgical history, family history and social history today. REVIEW OF SYSTEMS All other reviewed and negative other than HPI. HEALTH MAINTENANCE: Reviewed health maintenance issues today and recommended the following in detail. TETANUS due on 1968 ONE PNEUMOVAX PRIOR TO AGE 67 due on 1973 MAMMOGRAM due on 1997 COLORECTAL CANCER SCREENING,SEE MODIFIER due on 2007 DILATED RETINAL EXAM due on 04/12/2017 INFLUENZA(1) due on 04/25/2017 URINE ALBUMIN CREATININE RATIO due on 09/19/2017 VITALS: BP 162/92 Pulse 100 Temp 37.4 ?C (99.3 ?F) (Tympanic) Resp 14 Wt 89.8 kg (198 lb) BMI 34.14 kg/m2 Last 4 Encounter Wt Readings: Date: Wt: 08/20/2017 89.8 kg (198 lb) 06/02/2017 93 kg (205 lb) 11/20/2016 92.7 kg (204 lb 6.4 oz) 09/19/2016 91.2 kg (201 lb) PHYSICAL EXAMINATION: General appearance: Well appearing, alert, in no acute distress, well-hydrated, well nourished. Skin: Skin color, texture, turgor normal, no suspicious rashes or lesions Head: Normocephalic, no masses, lesions, tenderness or abnormalities Eyes: Anicteric sclera. Pupils are equally round and reactive to light. Extraocular movements are intact. Ears: External ears normal, canals clear Nose/Sinuses: Nares normal, septum midline, mucosa normal, no drainage or sinus tenderness Oropharynx: Lips, mucosa, and tongue normal, teeth and gums normal, oropharynx normal and drainage in the posterior pharynx Neck: Supple, no adenopathy; thyroid symmetric, normal size, no bruits Lungs: Lungs clear to auscultation. No wheezing, rhonchi, rales Heart: RRR without murmur, gallop, or rubs. No ectopy Abdomen: Normal abdominal exam, Abdomen soft, non-tender. Bowel sounds normal. No masses, organomegaly Extremities: No deformities, edema, skin discoloration, clubbing or cyanosis. Good capillary refill. ASSESSMENT/PLAN: 1. Acute bronchitis with chronic obstructive pulmonary disease (COPD) (HCC) - ICD9: 491.22, ICD10: J44.0, J20.9 (primary diagnosis) - biaxin. Get labs and chest xray. Call if symptoms worsen at all or if not better in one to two weeks 2. GERD without esophagitis - ICD9: 530.81, ICD10: K21.9 - see gi. - METOCLOPRAMIDE 10 MG TABLET 3. Monocytosis - ICD9: 288.63, ICD10: D72.821 - see hematology as we discussed. 4. Type 2 diabetes mellitus without complication, without long-term current use of insulin (HCC) - ICD9: 250.00, ICD10: E11.9 - see pharmacy Ricci Cole MD . Referring Provider: SELF [[id number]] Allergies As of Date: 08/20/2017 Noted Allergy Reaction PENICILLINS 05/25/2008 4 - Hives SULFA (SULFONAMIDE ANTIBIOTICS) 09/19/2016 2 - Rash 14 - Other: See Comments Comments: Blisters and sore in throat Date Reviewed: 07/04/2017 Reviewed by: Marylu Bullock Ma - Fully Assessed Reason for Visit: Cough [28] Primary Visit Diagnosis:Acute bronchitis with chronic obstructive pulmonary disease (COPD) ([facility]) [J44.0, J20.9] Other Visit Diagnoses:GERD without esophagitis [K21.9] Monocytosis [D72.821] Type 2 diabetes mellitus without complication, without long-term current use of insulin (HCC) [E11.9] Order(s):metoclopramide HCl (REGLAN) 10 mg tabletTake 1 tablet by mouth four times daily as needed.Disp: 60 tabletRfl: 1 clarithromycin (BIAXIN) 500 mg tabTake 1 tablet by mouth every 12 hours for 10 days.Disp: 20 tabletRfl: 0 benzonatate (TESSALON PERLE) 100 mg capsuleTake 1 capsule by mouth three times daily as needed.Disp: 30 capsuleRfl: 0 Prescriptions as of 08/20/2017 Sig: ALBUTEROL SULFATE 2.5 MG/3 ML* Use 2.5 mg via nebulizer ever* METOCLOPRAMIDE 10 MG TABLET Take 1 tablet by mouth four t* CLARITHROMYCIN 500 MG TABLET Take 1 tablet by mouth every * BENZONATATE 100 MG CAPSULE Take 1 capsule by mouth three* ALBUTEROL SULFATE HFA 90 MCG/* Inhale 2 Puffs as instructed * NYSTATIN 100,000 UNIT/GRAM TO* Apply 1 application to affect* NYSTATIN 100,000 UNIT/GRAM TO* Apply 1 application to affect* PREGABALIN 150 MG CAPSULE Take 1 capsule by mouth three* AMITRIPTYLINE 25 MG TABLET Take 1 tablet by mouth daily * OMEPRAZOLE 20 MG CAPSULE,LESIA* Take 1 capsule by mouth once * SUCRALFATE 1 GRAM TABLET Take 1 tablet by mouth four t* FLUOXETINE 40 MG CAPSULE Take 1 capsule by mouth once * FLUTICASONE 50 MCG/ACTUATION * Use 2 Sprays in each nostril * GLIPIZIDE 5 MG TABLET Take 5 mg by mouth twice amber* METFORMIN ER 500 MG TABLET,EX* Take 1 tablet by mouth daily * Problem List As Of Date 08/20/2017 Noted Resolved TOBACCO USE DISORDER [F17.200] CERVICAL DISC DEGEN [M50.30] More... Chronic bronchitis (HCC) [J42] DEPRESSIVE DISORDER NEC [F32.9] PERSISTENT INSOMNIA [G47.00] INVALID FOR* MGRN W AURA WO NTRC MGRN [G43.109] PANIC DISORDER WITHOUT AGORAPHOBIA [F41.0] Fibromyalgia [M79.7] History of recurrent UTIs [Z87.440] INVALID FOR* DM (diabetes mellitus) (HCC) [E11.9] Visit Notes: >> Jaycee Cohn RONNI FriAug 20, 2017 12:56 PM Status: Signed Patient presents today complaining of increased cough. Duration: couple of weeks. Cough is productive:YES. Fever: :Reports that in the evening sometimes. Shortness of breath:YES. Sore throat :YES. Ear Pain :YES. Chest Pain :No. Previous treatments tried: advil cough/cold, mucinex. Was treated with Doxy once and better for a few days after then came back. Didn't get much relief with Tessalon. Wanting to refill Reglan. Is scheduled to see gastro Dr Spicer on 09/10/17. Records sent to his office for review. Prescriptions ordered this encounter Disp Refills Start End METOCLOPRAMIDE 10 MG TABLET 60 t* 1 08/20/2017 Route: ORAL Sig: Take 1 tablet by mouth four times daily as needed. CLARITHROMYCIN 500 MG TABLET 20 t* 0 08/20/2017 08/30/2017 Route: ORAL Sig: Take 1 tablet by mouth every 12 hours for 10 days. BENZONATATE 100 MG CAPSULE 30 c* 0 08/20/2017 Route: ORAL Sig: Take 1 capsule by mouth three times daily as needed. Medications Discontinued During This Encounter benzonatate (TESSALON PERLES) 100 mg* 30 c* 0 06/27/2017 08/20/2017 Route: ORAL Sig: Take 1 capsule by mouth three times daily as needed. Disc: Course of therapy completed doxycycline monohydrate 100 mg tablet 20 t* 0 07/31/2017 08/20/2017 Route: ORAL Sig: Take 1 tablet by mouth twice daily. Disc: Course of therapy completed metoclopramide HCl (REGLAN) 10 mg ta* 20 t* 0 08/11/2017 08/20/2017 Route: ORAL Sig: Take 1 tablet by mouth four times daily as needed. Disc: Reason for discontinue is not on file. Disposition: Return if symptoms worsen or fail to improve. Follow-up and Disposition History Recorded Encounter Status:Closed by RICCI COLE MD on 08/20/17 ALLERGIES ALLERGIES DATE TYPE / CODE NAME / CODE REACTION SEVERITY SOURCE 07/04/2018 Drug hydrocodone Nausea Unknown [facility] Allergy/416 bitartrate/[id number] [facility] [id number]([facility] 555(RXNORM) [facility] ED CT) Repository 07/04/2018 Drug Penicillins/[id number] Hives Unknown Alex Allergy/416 0476(RXNORM) [facility] [id number]([facility] ED CT) Repository 07/04/2018 Drug Sulfa (Sulfonamide Hives Unknown [place]sey Allergy/416 Antibiotics)/F0010 [facility] [id number]([facility] [address]27([facility]NORUST ED CT) Repository 07/04/2018 Drug acetaminophen/F006 Nausea Unknown Alex Allergy/416 [id number](RXNORM) [facility] [id number]([facility] ED CT) Repository 09/19/2016 Drug SULFA (SULFONAMIDE RASH [facility] Class/46716 ANTIBIOTICS) [facility] [place] 1003(SNOMED Repository CT) 05/25/2008 Drug PENICILLINS HIVES [facility] Class/42665 [facility] [place] 1003(SNOMED Repository CT) ENCOUNTERS ENCOUNTERS ADMIT/DISCHARGE ACCOUNT ADMITTING ENCOUNTER LOCATION SOURCE NUMBER CLASS 07/23/2018/07/24/20 [id number] Ambulatory [address] [place] Repository 07/22/2018 [id number] [facility] 07/04/2018/07/05/20 [id number] Emergency [facility] [facility] ing:ED Repository 06/30/2018/07/01/20 [id number] Ambulatory [address] Repository 04/27/2018 [id number] [facility] 02/11/2018/02/13/20 [id number] Ambulatory [address] Repository 01/06/2018/01/08/20 [id number] Ambulatory [address] Repository 12/25/2017/12/26/19 [id number] Ambulatory BMSBuilding:B Hersey 18 .[facility] Repository 12/03/2017/12/04/19 [id number] Ambulatory BMSBuilding:Nathanael Alex 20 MS.[facility] Repository 11/18/2017/11/19/19 [id number] Ambulatory BMSBuilding:Nathanael Alex 20 MS.[facility] Repository 11/10/2017 [id number] Ambulatory [facility] Repository 11/10/2017/11/12/19 [id number] Ambulatory [address] Repository 11/07/2017/11/08/19 [id number] Ambulatory [address] Repository 10/28/2017/10/31/19 [id number] Ambulatory [address] Repository 10/20/2017/10/25/19 [id number] Ambulatory [address] Repository 10/13/2017/10/13/19 [id number] Emergency [address] Hospital ing:ED Repository 10/09/2017/10/14/19 [id number] Ambulatory [address] Repository 10/09/2017/10/10/19 [id number] Ambulatory [address] Repository 10/07/2017 [id number] Emergency [facility] ing:ED Repository 09/15/2017/09/15/19 [id number] Ambulatory [address] Repository 09/10/2017/09/12/19 [id number] Ambulatory [address] Repository 09/10/2017/09/11/19 [id number] Ambulatory [address] Repository 09/02/2017/09/02/19 [id number] Ambulatory [address] Repository 08/20/2017/08/20/20 [id number] Ambulatory [address] Repository 08/20/2017 [id number] Ambulatory [facility] Repository 08/20/2017/08/20/20 [id number] Ambulatory [address] Repository PAYERS PAYERS ENCOUNTER GUARANTOR PAYER SUBSCRIBER SOURCE 07/22/2018 IVET Diaz Primary IVET [id number] Insurance:MEDICARE WATKINSDOB: [facility] GURPREET GUPTAE, PART A [facility] [id number] Medical Center [address]Mhw: Number: Repository [id number] (HP) Date:2018-07-22 07/22/2018 Secondary IVET K Alex Insurance:MEDICAIDPol [facility] [place]: [facility] icy Number: [id number] Hospital [id number] Repository Date:2018-07-22 07/22/2018 Tertiary NOT GIVENUNK Alex Insurance:SELF PAY [facility] Number: Effective Repository Date:2018-07-22 07/04/2018 Ivet K Primary Ivet Diaz Hersey [id number] Insurance:MEDICARE WatkinsDOB: [facility] Gurpreet Wetzel, PART A [facility] [id number] Medical Center [address]Jjb: Number: Repository [id number] (HP) Date:2018-07-04 07/04/2018 Secondary Ivet K Hersey Insurance:MEDICAIDPol WatkinsDOB: [facility] icy Number: [id number] Hospital [id number] Repository Date:2018-07-04 07/04/2018 Tertiary NOT GIVENUNK Alex Insurance:SELF PAY [facility] Number: Effective Repository Date:2018-07-04 04/27/2018 Ivet K Primary Ivet Johnson [id number] Insurance:MEDICARE WatkinsDOB: [facility] Gurpreet Wetzel, PART A [facility] [id number] Medical Center [address]Bqw: Number: Repository [id number] (HP) Date:2018-04-27 04/27/2018 Secondary Ivet K Hersey Insurance:MEDICAIDPol WatkinsDOB: Community icy Number: [id number] Hospital [id number] Repository Date:2018-04-27 04/27/2018 Tertiary NOT GIVENUNK Hersey Insurance:SELF PAY [facility] Number: Effective Repository Date:2018-04-27 12/25/2017 Ivet K Primary Ivet K Alex [id number] Insurance:MEDICARE WatkinsDOB: [facility] Gurpreet Guptae, PART A [facility] [id number] Medical Center [address]Cod: Number: Repository [id number] (HP) Date:2017-12-03 12/25/2017 Secondary Viet K Hersey Insurance:MEDICAIDPol WatkinsDOB: [facility] icy Number: [id number] Hospital [id number] Repository Date:2017-12-03 12/25/2017 Tertiary NOT GIVENUNK Hersey Insurance:SELF PAY [facility] Number: Effective Repository Date:2017-12-25 12/03/2017 Ivet K Primary Ivet K Alex [id number] Insurance:MEDICARE WatkinsDOB: [facility] Gurpreet Wetzel, PART A [facility] [id number] Medical Center [address]Iss: Number: Repository [id number] (HP) Date:2017-11-18 12/03/2017 Secondary Ivet K Alex Insurance:MEDICAIDPol WatkinsDOB: [facility] icy Number: [id number] Hospital [id number] Repository Date:2017-11-18 12/03/2017 Tertiary NOT GIVENUNK Alex Insurance:SELF PAY [facility] Number: Effective Repository Date:2017-12-03 11/18/2017 Ivet K Primary Ivet K Hersey [id number] Insurance:MEDICARE WatkinsDOB: [facility] Gurpreet Guptae, PART A [facility] [id number] Medical Center [address]Rec: Number: Repository [id number] (HP) Date:2017-10-14 11/18/2017 Secondary Ivet K Hersey Insurance:MEDICAIDPol WatkinsDOB: Community icy Number: [id number] Hospital [id number] Repository Date:2017-10-14 11/18/2017 Tertiary NOT GIVENUNK Hersey Insurance:SELF PAY [facility] Effective Repository Date:2017-11-18 10/13/2017 Ivet K Primary Ivet K Hersey [id number] Insurance:MEDICARE WatkinsDOB: [facility] Damari, PART A [facility] [id number] Medical Center [address]Orz: Number: Repository [id number] (HP) Date:2017-10-13 10/13/2017 Secondary Ivet K Alex Insurance:MEDICAIDPol WatkinsDOB: [facility] icy Number: [id number] Hospital [id number] Repository Date:2017-10-13 10/13/2017 Tertiary NOT GIVENUNK Alex Insurance:SELF PAY [facility] Number: Effective Repository Date:2017-10-13 10/07/2017 Ivet K Primary Ivet K Alex [id number] Insurance:MEDICARE WatkinsDOB: [facility] Gurpreet Wetzel, PART A [facility] [id number] Medical Center [address]Hub: Number: Repository [id number] (HP) Date:2017-10-07 10/07/2017 Secondary Ivet K Alex Insurance:MEDICAIDPol WatkinsDOB: [facility] icy Number: [id number] Hospital [id number] Repository Date:2017-10-07 10/07/2017 Tertiary NOT GIVENUNK Hersey Insurance:SELF PAY [facility] Number: Effective Repository Date:2017-10-07
== END ==
PROVIDERS: Family Provider Family Medicine; PCP Family Medicine; Referring Provider Psychiatry & Neurology Psychiatry; Visit Provider Psychiatry & Neurology Psychiatry
DX: F19.10 Other psychoactive substance abuse, uncomplicated (principal); Z79.899 Other long term (current) drug therapy
CPT/HCPCS: 80307

== ENCOUNTER 2018-11-07 14:16 | Emergency (ER) | payer MEDICARE, MEDICAID, SELFPAY ==
[2018-11-07 14:17] VITALS: BP 160/103; PULSE 98; RESP 22; TEMP 36.6; O2SAT 98; BMI 34.1
--- NOTE | 2018-11-07 14:33 | CT_ITS ---
STUDY: CT ABDOMEN AND PELVIS WITHOUT CONTRAST REASON FOR EXAM: Female, 63 years old. Left-sided abdominal pain RADIATION DOSAGE (If Supplied By Facility): CTDIvol = ( 22.57 ) mGy, DLP = ( 1178.52 ) mGycm TECHNIQUE: Transaxial images were obtained from the dome of the diaphragm to the symphysis pubis without oral contrast, and without intravenous contrast. Sagittal and coronal images were reconstructed. Individualized dose optimization techniques were used for this CT. COMPARISON: 10/07/2017 FINDINGS: Fibrotic scarring of the right lung base is stable. The visualized portions of the heart are within normal limits. Liver is mildly enlarged with diffuse diminished density compatible with hepatic steatosis. The gallbladder appears to be surgically absent or contracted. Normal spleen. Normal pancreas. Normal bilateral adrenal glands. Normal right kidney. Exophytic cortical cyst of the left kidney stable since the prior study. Normal visualized stomach. Normal small intestine. There are multiple colonic diverticula consistent with diverticulosis. There is non-visualization of the appendix. Normal abdominal aorta. Normal inferior vena cava. Normal retroperitoneum. Normal urinary bladder. There is absence of the uterus consistent with a prior hysterectomy. Normal abdominal wall. There are diffuse degenerative changes of the visualized lumbar spine. CT/Abdomen/Pelvis without Cont IMPRESSION: 1. No hydronephrosis or urinary tract calcifications. No acute inflammatory process. 2. Stable chronic changes, as above. Electronically Signed: Sven Elizondo MD at 15:26 EDT , Service support ,
[2018-11-07] MEDS: DiphenhydrAMINE 50 MG/ML Syringe 25 MG IV (15:01)
[2018-11-07] MEDS: 0.9% Normal Saline 1,000 ML 1000 ML IV (15:01)
[2018-11-07] MEDS: Ketorolac 30 MG/ML Syringe 15 MG IV (15:02)
[2018-11-07] MEDS: Metoclopramide 10 MG/2 ML Vial IV (15:03)
[2018-11-07 15:17] LABS: Mucous, Urine 0 SEEN /hpf (<or=2+); Red Blood Cells-Urine 0 SEEN /hpf (0-5); White Blood Cells 0 SEEN /hpf (0-5)
[2018-11-07 15:26] LABS: Color, Urine Yellow (Yellow); Glucose, Dipstick 50 mg/dl (Normal); Ketone-Dipstick 15 mg/dl (Negative); Leukocyte Esterase-Dipstick Negative /ul (Negative); Nitrite-Dipstick Negative (Negative); Occult Blood-Urine 25 /ul (Negative); Protein-Dipstick Negative (Negative); Specific Gravity, Urine 1.015 (1.002-1.030); Urine Bilirubin Dipstick Negative (Negative); Urine Clarity Clear (Clear); Urine Urobilinogen Normal (Normal)
--- NOTE | 2018-11-07 15:27 | ED.VISSUMM ---
- ER Visit Summary Date of Service: 11/07/18 Chief Complaint: [Abdominal pain] History of Present Illness: The patient is a 63 F [presents the emergency department complaint of abdominal pain that started 2 days ago. Patient describes nausea and yesterday had 4 watery stools. Patient had subjective fever at home and sweats. She denies any urinary symptoms. Patient does complain of a headache for the last 2 days as well. Patient does have a history of migraines. Patient does have some photophobia. She complains of tension and soreness in her neck. Headache feels like a migraine. Patient denies any falls or head injuries.] Patient has had prior appendectomy, cholecystectomy, and hysterectomy. Physical Examination: [HEENT-PERRLA, EOMI. Cranial nerves II through XII grossly intact. TMs clear. Mucous membranes moist. No adenopathy. Cardiovascular-regular rate and rhythm without murmur or ectopy Lungs-clear to auscultation, chest wall stable without crepitus or subcu emphysema Abdomen-normoactive bowel sounds, soft. Patient does have tenderness palpation over left upper quadrant with some guarding. There is no rebound, rigidity, or perineal signs. Neuro gffh-rqliox-uaan and heel barnard testing within normal limits, negative Romberg, negative pronator drift, fundi benign Extremities-intact ?4, normal range of motion, normal pulses, atraumatic] Test Results: [CBC with differential obtained showed an elevated white count of 14,000, hemoglobin 15.7, hematocrit 88, platelets 365. Chemistries unremarkable. LFTs and lipase were normal. Urinalysis was normal. CT flank showed nothing acute.] Emergency Department Course and Treatment: [She had IV line established she was given Reglan, Benadryl, and Toradol as well as a liter normal same fluid bolus. Patient's felt significantly improved.] Treatment Plan: [Patient will be given a prescription for Reglan and advised to follow-up with primary care physician 3-5 days.] Disposition: [Discharged home in stable condition.] Impression: [Gastroenteritis-viral Cephalgia-suspect migraine] This note was generated with [employer] dictation software. It may contain incorrect words, spelling, and punctuation that were not noted in review of the chart prior to signing ED Disposition - Plan for ED Patient: Referrals: Ricci Broussard MD [Primary Care Provider] -
--- NOTE | 2018-11-07 15:30 | ED.DCSUM_ITS ---
- ER Visit Summary Date of Service: 11/07/18 Chief Complaint: [Abdominal pain] History of Present Illness: The patient is a 63 F [presents the emergency department complaint of abdominal pain that started 2 days ago. Patient describes nausea and yesterday had 4 watery stools. Patient had subjective fever at home and sweats. She denies any urinary symptoms. Patient does complain of a headache for the last 2 days as well. Patient does have a history of migraines. Patient does have some photophobia. She complains of tension and soreness in her neck. Headache feels like a migraine. Patient denies any falls or head injuries.] Patient has had prior appendectomy, cholecystectomy, and hysterectomy. Physical Examination: [HEENT-PERRLA, EOMI. Cranial nerves II through XII grossly intact. TMs clear. Mucous membranes moist. No adenopathy. Cardiovascular-regular rate and rhythm without murmur or ectopy Lungs-clear to auscultation, chest wall stable without crepitus or subcu emphysema Abdomen-normoactive bowel sounds, soft. Patient does have tenderness palpation over left upper quadrant with some guarding. There is no rebound, rigidity, or perineal signs. Neuro gfza-gxhbpj-pzxc and heel barnard testing within normal limits, negative Romberg, negative pronator drift, fundi benign Extremities-intact ?4, normal range of motion, normal pulses, atraumatic] Test Results: [CBC with differential obtained showed an elevated white count of 14,000, hemoglobin 15.7, hematocrit 88, platelets 365. Chemistries unremarkable. LFTs and lipase were normal. Urinalysis was normal. CT flank showed nothing acute.] Emergency Department Course and Treatment: [She had IV line established she was given Reglan, Benadryl, and Toradol as well as a liter normal same fluid bolus. Patient's felt significantly improved.] Treatment Plan: [Patient will be given a prescription for Reglan and advised to follow-up with primary care physician 3-5 days.] Disposition: [Discharged home in stable condition.] Impression: [Gastroenteritis-viral Cephalgia-suspect migraine] This note was generated with [employer] dictation software. It may contain incorrect words, spelling, and punctuation that were not noted in review of the chart prior to signing ED Disposition - Plan for ED Patient: Referrals: Ricci Broussard MD [Primary Care Provider] -
[2018-11-07 15:41] LABS: ALB/GLOB Ratio 1.1 RATIO (0.9-2.4); AST(SGOT) 20 U/L (15-37); Absolute Lymphocyte Count 4.17 X10^3/ul (0.83-4.51); Absolute Neutrophil Count 8.8 X10^3/uL (2.0-7.7); Alanine Aminotransfer ALT/SGPT 27 U/L (13-56); Albumin, Serum 3.8 g/dL (3.2-5.0); Alkaline Phosphatase 85 U/L (45-117); Anion Gap 4 (5-15); BUN 7 mg/dL (7-18); BUN/Creat Ratio 10.9 RATIO (10-20); Basophil# 0.04 X10^3/uL; Basophil% 0.3 % (0-1); Calcium,Total 8.6 mg/dL (8.5-10.1); Chloride 106 mmol/L (98-107); Creatinine, Serum 0.64 mg/dL (0.55-1.02); EST Glomerular Filtration Rate 99 mL/min (>60); Eosinophil# 0.12 X10^3/uL; Eosinophils% 0.9 % (0-5); Est Glom Filt Rate - Afr Amer 120 mL/min (>60); Estimated Creatinine Clearance 89.77 ml/min; Globulin 3.6 g/dL (2.2-4.2); Glucose 175 mg/dL (74-106); Hematocrit 48.1 % (37-47); Hemoglobin 15.7 g/dl (12.0-15.0); Lipase 76 U/L (73-393); Lymphocyte # 4.17 X10^3/ul (4.0); Lymphocyte % 29.8 % (19-41); Mean Corp Hgb Conc 32.6 g/gl (32-36); Mean Corpuscular Volume 88.9 fL (81-99); Mean Platelet Vol. 9.4 fl (6.2-12.0); Monocyte# 0.79 X10^3/uL; Monocyte% 5.6 % (0-10); Neutrophil # 8.83 X10^3/uL (2.7-7.7); Platelet Count 365 K/mm3 (150-450); Potassium 3.6 mmol/L (3.5-5.1); Protein, Total 7.4 g/dL (6.4-8.2); RBC Distribution Width CV 13.6 % (11.6-14.6); RBC Distribution Width SD 44.4 fl (35.1-43.9); Red Blood Count 5.41 M/mm3 (4.2-5.4); Sodium Level 137 mmol/L (136-145)
[2018-11-07 15:51] LABS: POSITIVE COUNT NO; POSITIVE DIFFERENTIAL NO; POSITIVE MORPHOLOGY NO
[2018-11-07 16:02] LABS: Bacteria RARE /hpf (None Seen); Squamous Epithelial Cells - UA 0-5 SEEN /hpf (5-10)
--- NOTE | 2018-11-07 16:07 | ED.DEP ---
ED Disposition - Plan for ED Patient: Instructions: ED Gastroenteritis Viral, ED Headache Migraine Prescriptions: Metoclopramide [Reglan] 10 mg PO 4X/DAY PRN #20 tab PRN Reason: Headache Referrals: Ricci Broussard MD [Primary Care Provider] - 3-5 Days
[2018-11-07 16:15] VITALS: BP 152/88; PULSE 83; RESP 17; O2SAT 97
--- NOTE | 2018-11-07 16:16 | ED.RN ---
IV DC'ED, CATHETER INTACT, SMALL GAUZE DRESSING PLACED. DISCHARGE INSTRUCTIONS GIVEN TO AND REVIEWED WITH PATIENT, PATIENT DENIES QUESTIONS OR CONCERNS AND VOICES UNDERSTANDING OF DISCHARGE INSTRUCTIONS. PT AMBULATES OUT OF ROOM WITHOUT DIFFICULTY.
== END 2018-11-07 16:17 | disposition home or self-care (01) ==
PROVIDERS: Emergency Provider Emergency Medicine; Family Provider Family Medicine; PCP Family Medicine
DX: A08.4 Viral intestinal infection, unspecified (principal); R51 Headache; J44.9 Chronic obstructive pulmonary disease, unspecified; M79.7 Fibromyalgia; Z79.4 Long term (current) use of insulin; Z79.899 Other long term (current) drug therapy; Z72.0 Tobacco use
CPT/HCPCS: 74176; 80053; 81001; 83690; 85025; 96361; 96374; 96375; 99283; J7030

== ENCOUNTER 2018-12-14 09:31 | Emergency (ER) | payer MEDICARE, MEDICAID, SELFPAY ==
[2018-12-14 09:33] VITALS: BP 157/66; PULSE 104; RESP 18; TEMP 36.4; O2SAT 97; BMI 32.1
--- NOTE | 2018-12-14 09:47 | RAD_ITS ---
STUDY: X-RAY CHEST REASON FOR EXAM: Female, 63 years old. Cough. Bronchitis. TECHNIQUE: PA and lateral views of the chest. COMPARISON: October 13, 2017. FINDINGS: Cardiac silhouette unremarkable. Pulmonary vascularity unremarkable. Aorta unremarkable. No focal patchy airspace opacities. No pleural effusions. Mild atelectasis/scarring with slightly increased interstitial lung markings. Upper abdomen unremarkable. Osseous structures intact. No pneumothorax. Degenerative changes at the shoulders and spine. RAD/Chest PA and Lateral IMPRESSION: No acute cardiopulmonary findings COPD/bronchitis with increased interstitial lung markings Electronically Signed: Benjamín Littlejohn DO at 11:02 EDT Tel , Service support ,
[2018-12-14 09:54] VITALS: PULSE 76; RESP 18; O2SAT 96
[2018-12-14] MEDS: Ipratropium/Albuterol Sulfate 3 ML AMPUL.NEB INHALATION (09:54)
--- NOTE | 2018-12-14 09:55 | ED.VISSUMM ---
- ER Visit Summary Date of Service: 12/14/18 Chief Complaint: Cough History of Present Illness: The patient is a 63 F who presents with cough that has been getting worse over the past 3 weeks. Patient states she is coughing up some green sputum. Patient admits to some mild shortness of breath. Patient admits to some pain in her chest with coughing but denies any other chest pain. Patient admits to some nausea but denies any vomiting or diarrhea. Patient admits to myalgias, nasal congestion, and sinus pressure. Vision also admits to some mild dysuria. Physical Examination: Vital signs are stable except for mild tachycardia of 104. Patient is afebrile. Patient is in no acute distress. Tympanic membranes are clear bilateral. Oral mucosa is pink and moist. There is some postnasal drainage noted in the oropharynx. Neck is supple. Trachea is midline. No JVD or lymphadenopathy noted. Heart was regular rate and rhythm. Lungs are clear and equal bilaterally. Abdomen is soft. Bowel sounds are normal. Cranial nerves II through XII are intact. There are no focal motor or sensory deficits noted. Test Results: PA and lateral chest x-ray was obtained. There is no acute cardiopulmonary process noted. Urinalysis was obtained and shows evidence of urinary tract infection. Emergency Department Course and Treatment: Patient was given a DuoNeb aerosol here. Patient was given a prescription for Cipro. Patient was instructed to follow-up with her primary care physician in 5-7 days. Patient understood and was agreeable with the plan. All questions were answered. Disposition: Discharge home Impression: 1. Urinary tract infection 2. Viral upper respiratory infection This note was generated with [employer] dictation software. It may contain incorrect words, spelling, and punctuation that were not noted in review of the chart prior to signing ED Disposition - Plan for ED Patient: Disposition: Home or Assisted Living Diagnosis: Urinary tract infection, Viral upper respiratory infection Instructions: ED UTI Cystitis Female, ED URI Viral W Wheezing Prescriptions: Ciprofloxacin [Cipro] 500 mg PO BID #6 tab Referrals: Ricci Broussard MD [Primary Care Provider] - 5-7 Days
[2018-12-14 10:19] LABS: Mucous, Urine 0 SEEN /hpf (<or=2+); Red Blood Cells-Urine 0 SEEN /hpf (0-5); Squamous Epithelial Cells - UA 0 SEEN /hpf (5-10)
[2018-12-14 10:21] LABS: Color, Urine Yellow (Yellow); Glucose, Dipstick 1000 mg/dl (Normal); Ketone-Dipstick 15 mg/dl (Negative); Leukocyte Esterase-Dipstick 500 /ul (Negative); Nitrite-Dipstick Positive (Negative); Occult Blood-Urine 25 /ul (Negative); Protein-Dipstick 30 mg/dl (Negative); Specific Gravity, Urine 1.025 (1.002-1.030); Urine Bilirubin Dipstick Negative (Negative); Urine Clarity Sl. Cloudy (Clear); Urine Urobilinogen Normal (Normal)
[2018-12-14 10:30] LABS: Bacteria 2+ /hpf (None Seen); White Blood Cells 10-25 SEEN /hpf (0-5)
== END 2018-12-14 11:40 | disposition home or self-care (01) ==
PROVIDERS: Emergency Provider Emergency Medicine; Family Provider Family Medicine; PCP Family Medicine
DX: N39.0 Urinary tract infection, site not specified (principal); J06.9 Acute upper respiratory infection, unspecified; J44.9 Chronic obstructive pulmonary disease, unspecified; M79.7 Fibromyalgia; F32.9 Major depressive disorder, single episode, unspecified; Z79.4 Long term (current) use of insulin; Z79.899 Other long term (current) drug therapy; F17.200 Nicotine dependence, unspecified, uncomplicated
CPT/HCPCS: 71046; 81001; 94640; 99282

== ENCOUNTER 2019-01-08 16:49 | Inpatient (IN) | payer MEDICARE, MEDICAID, SELFPAY ==
[2019-01-08 16:51] VITALS: BP 156/115; PULSE 92; RESP 17; TEMP 36.9; O2SAT 97; BMI 35.5
[2019-01-08 16:54] VITALS: BP 156/115; PULSE 95; RESP 17; O2SAT 99
--- NOTE | 2019-01-08 17:42 | CT_ITS ---
STUDY: CT ABDOMEN AND PELVIS WITH CONTRAST REASON FOR EXAM: Female, 63 years old. Pain RADIATION DOSAGE (If Supplied By Facility): DLP = ( 1283.26 ) mGycm TECHNIQUE: Transaxial images were obtained from the dome of the diaphragm to the symphysis pubis without oral contrast. 100ML ml of Isovue 300 contrast was administered. Sagittal and coronal images were reconstructed. Individualized dose optimization techniques were used for this CT. COMPARISON: CT abdomen pelvis November 07, 2018 FINDINGS: Bibasilar atelectasis is present. The visualized portions of the heart and pericardium are within normal limits. There is decreased hepatic attenuation. The liver is enlarged. There are no suspicious hepatic lesions. The gallbladder has been removed. There has been interval development of pneumobilia. The spleen is normal in size. The pancreas is within normal limits. The adrenal glands are within normal limits. There are no obstructing renal stones. There is no hydronephrosis. There is a left renal 2.8 cm cyst. Normal visualized stomach. There is no bowel obstruction or inflammation. The appendix is not visualized, but there are no findings to suggest acute appendicitis. The aorta is normal in caliber. There is no abdominal or pelvic free air, free fluid, fluid collection or lymphadenopathy. There are no destructive osseous lesions. CT/Abdomen/Pelvis W IV Cont ONLY IMPRESSION: Status post cholecystectomy, with pneumobilia noted. Fatty liver and hepatomegaly. Electronically Signed: Johnathan Kinney, at 19:16 EDT Tel , Service support ,
[2019-01-08] MEDS: Morphine 4 MG/ML Syringe IV ×2 (18:17→20:26)
[2019-01-08] MEDS: Ondansetron 4 MG/2 ML Vial IV ×2 (18:17→20:26)
[2019-01-08] MEDS: 0.9% Normal Saline 1,000 ML 1000 ML IV (18:17)
[2019-01-08 18:19] VITALS: BP 150/79; PULSE 90; RESP 18; TEMP 37.2; O2SAT 96
[2019-01-08 18:21] LABS: Absolute Lymphocyte Count 2.01 X10^3/ul (0.83-4.51); Absolute Neutrophil Count 9.9 X10^3/uL (2.0-7.7); Basophil# 0.03 X10^3/uL; Basophil% 0.2 % (0-1); Eosinophil# 0.02 X10^3/uL; Eosinophils% 0.2 % (0-5); Hematocrit 42.6 % (37-47); Hemoglobin 14.4 g/dl (12.0-15.0); Lymphocyte # 2.01 X10^3/ul (4.0); Lymphocyte % 16.2 % (19-41); Mean Corp Hgb Conc 33.8 g/gl (32-36); Mean Corpuscular Hgb 29.9 pg (27.0-32.0); Mean Corpuscular Volume 88.4 fL (81-99); Mean Platelet Vol. 9.5 fl (6.2-12.0); Monocyte# 0.51 X10^3/uL; Monocyte% 4.1 % (0-10); Neutrophil # 9.85 X10^3/uL (2.7-7.7); Neutrophil % 79.1 % (47-70); Platelet Count 252 K/mm3 (150-450); RBC Distribution Width CV 13.6 % (11.6-14.6); Red Blood Count 4.82 M/mm3 (4.2-5.4); White Blood Count 12.4 K/mm3 (4.4-11.0)
[2019-01-08 18:23] LABS: AST(SGOT) 17 U/L (15-37); Alanine Aminotransfer ALT/SGPT 26 U/L (13-56); Albumin, Serum 3.5 g/dL (3.2-5.0); Alkaline Phosphatase 79 U/L (45-117); Anion Gap 5 (5-15); BUN 11 mg/dL (7-18); Calcium,Total 8.7 mg/dL (8.5-10.1); Chloride 107 mmol/L (98-107); Creatinine, Serum 0.79 mg/dL (0.55-1.02); EST Glomerular Filtration Rate 79 mL/min (>60); Est Glom Filt Rate - Afr Amer 95 mL/min (>60); Estimated Creatinine Clearance 72.72 ml/min; Globulin 3.5 g/dL (2.2-4.2); Glucose 265 mg/dL (74-106); Lipase 54 U/L (73-393); Potassium 3.8 mmol/L (3.5-5.1); Sodium Level 139 mmol/L (136-145)
[2019-01-08 18:25] LABS: POSITIVE COUNT NO; POSITIVE DIFFERENTIAL NO; POSITIVE MORPHOLOGY NO
[2019-01-08 19:14] VITALS: BP 156/84; PULSE 91; RESP 15; O2SAT 95
[2019-01-08 19:33] LABS: Mucous, Urine 0 SEEN /hpf (<or=2+)
[2019-01-08 19:41] LABS: Color, Urine Yellow (Yellow); Glucose, Dipstick 1000 mg/dl (Normal); Ketone-Dipstick 15 mg/dl (Negative); Leukocyte Esterase-Dipstick 100 /ul (Negative); Nitrite-Dipstick Positive (Negative); Occult Blood-Urine 10 /ul (Negative); Protein-Dipstick 15 mg/dl (Negative); Urine Bilirubin Dipstick Negative (Negative); Urine Clarity Clear (Clear); Urine Urobilinogen Normal (Normal)
[2019-01-08 19:49] LABS: Bacteria 1+ /hpf (None Seen); Squamous Epithelial Cells - UA 0-5 SEEN /hpf (5-10)
[2019-01-08 19:50] LABS: White Blood Cells 5-10 SEEN /hpf (0-5)
--- NOTE | 2019-01-08 20:58 | PCM.HP.STD ---
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 No low BG and no night time hypoglycemia. will increase her long acting insulin as well as prandin. She is given written instructions on how to make incremental increases every 3 -5 days but no increases if she has any BG below 150. (3) Tobacco abuse Status: Chronic (4) COPD (chronic obstructive pulmonary disease) Status: Chronic (5) Fibromyalgia Status: Chronic (6) Chronic back pain Status: Chronic (7) Sepsis due to urinary tract infection Status: Acute History of Present Illness Date of Admission: 01/08/19 Chief Complaint: nausea and vomiting The patient is a 63 year old F with a significant history of anxiety and depression; fibromyalgia; COPD; tobacco abuse; and type 2 diabetes who presented to the emergency department with 2 and half month history of nausea. Also she reports a 3-week history of on and off vomiting. Associated with symptoms is headache. Also she reports a burning with urination and soreness in her vaginal area has been going on for 2 to 1/2 weeks. She reported that about a month ago she was on Cipro for UTI. And Cipro caused her to have nausea. At emergency department patient was given aztreonam because patient has hives with penicillin; and previous urine culture has showed E. coli which was resistant to ciprofloxacin but sensitive to aztreonam among other medications. Abdominal CT showed status post cholecystectomy with pneumobilia as well as fatty liver and hepatomegaly. Emergency department doctor discussed the case with Dr. Flores because of pneumobilia. Per discussion between ED doctor and Dr. Flores; and by review of outside records it was established that patient had ERCP and pneumobilia in the past. Reportedly patient lost her son recently. Past Medical History Past Medical History (Chronic Problems): Chronic Problems (Last Reviewed 01/09/19 @ 01:29 by Kenn Bansal MD) Tobacco abuse (Chronic) COPD (chronic obstructive pulmonary disease) (Chronic) Fibromyalgia (Chronic) Chronic back pain (Chronic) Medical History: Medical History (Last Reviewed 01/09/19 @ 01:29 by Kenn Bansal MD) Anxiety and depression F41.9, F32.9 COPD (chronic obstructive pulmonary disease) J44.9 Chronic UTI N39.0 Chronic bronchitis J42 Diabetes type 2, controlled E11.9 Dx : 2015 Last exacerbation : DKA : never Hypoglycemic episode : never ER visit : never GI problem R19.8 Seasonal allergies J30.2 Vision problem H54.7 Allergies Penicillins Allergy (Verified 07/04/18 19:35) Hives Sulfa (Sulfonamide Antibiotics) Allergy (Verified 07/04/18 19:35) Hives hydrocodone bitartrate [From Vicodin] Adverse Reaction (Verified 07/04/18 19:35) Nausea Home Medications: Ambulatory Orders Medication Instructions Recorded Albuterol Inhaler [Ventolin Hfa] 1 - 2 puff INHALATION Q4H PRN PRN 10/22/16 #1 inhaler amitriptyline 25 mg tablet 25 mg PO QHS 11/18/17 omeprazole 20 mg capsule,delayed 40 mg PO DAILY cap 11/18/17 release Insulin Glargine,Hum.rec.anlog 45 unit SC DAILY 04/27/18 [Toujeo Solostar] Pregabalin [Lyrica] 150 mg PO TID 01/08/19 Surgical History: Surgical History (Last Reviewed 01/09/19 @ 01:29 by Kenn Bansal MD) Hx of cholecystectomy Z90.49 S/P ORIF (open reduction internal fixation) fracture Z96.7, Z87.81 S/P complete hysterectomy Z90.710 bladder sling Surgical History: - - Recent surgery for urinary incontinence also hysterectomy she had all of her teeth removed Lives: Spouse/ Significant Other Smoking Status: Current every day smoker Alcohol: None - *Family History Maternal Family History: Family History (Last Reviewed 01/09/19 @ 01:29 by Kenn Bansal MD) Brother Diabetes Hypertension Review of Systems Constitutional: Denies: Chills, Fever, Weight Change HEENT: Denies: Head Aches, Sinus Congestion, Sinus Drainage Cardiovascular: Denies: Chest Pain, Palpitations Respiratory: Denies: Cough, Shortness of breath at rest, Sputum production Gastrointestinal: Reports: Abdominal Pain, Nausea, Vomiting Genitourinary: Reports: Dysuria Musculoskeletal: Denies: Joint Pain, Joint Tenderness Skin: Denies: Rash, Wounds Neurological: Denies: Numbness, Tingling, Focal weakness Psychiatric: Reports: Anxiety, Depression. Denies: Homicidal Ideations, Suicidal Ideations Hematologic/ Lymphatic: Denies: Easy Bruising, Easy Bleeding VTE Information - Inpt Only VTE Present on Admission: No VTE Mechan Device Prophylaxis: None VTE Pharm Prophylaxis ordered?: Yes Patient Problems: Active and Suspected Problems (Last Reviewed 01/09/19 @ 01:29 by Kenn Bansal MD) Intractable nausea and vomiting (Acute) Sepsis due to urinary tract infection (Acute) - Physical Exam General: Alert, Oriented x3, Cooperative HEENT: Atraumatic, PERRLA, EOMI, Normocephalic Neck: Supple, No JVD, Negative Carotid Bruits Lungs: Clear to auscultation, Normal air movement Cardiovascular: Regular rate, No murmurs Abdomen: Bowel Sounds Present, Soft, Tender, - - small excoriation on labia Extremities: No edema, Capillary Refill Less than 3 Seconds Skin: No rashes, No breakdown Musculoskeletal: No Tenderness to Palpation of Joints or Extremities Neurological: Cranial nerves II-XII grossly intact Psych/Mental Status: Normal Affect, Appropriate Vital Signs Temp Pulse Resp BP Pulse Ox 98.9 F 91 15 156/84 H 95 01/08/19 18:19 01/08/19 19:14 01/08/19 19:14 01/08/19 19:14 01/08/19 19:14 Oxygen Delivery Method Room Air Weight: 103 kg Body Mass Index (BMI) 35.5 Laboratory Tests Past 24 Hrs 01/08/19 01/08/19 01/08/19 17:50 17:50 19:25 WBC 12.4 H RBC 4.82 Hgb 14.4 Hct 42.6 MCV 88.4 MCH 29.9 MCHC 33.8 RDW 13.6 RDW Differential 44.0 H Plt Count 252 MPV 9.5 Immature Gran % (Auto) 0.200 Neut % (Auto) 79.1 H Lymph % (Auto) 16.2 L [place] % (Auto) 4.1 Eos % (Auto) 0.2 Baso % (Auto) 0.2 Absolute Neuts (auto) 9.9 H Absolute Lymphs (auto) 2.01 Total Counted Not Reportable Sodium 139 Potassium 3.8 Chloride 107 Carbon Dioxide 27.0 Anion Gap 5 BUN 11 Creatinine 0.79 Estim Creat Clear Calc 72.72 Est GFR (MDRD) Af Amer 95 Est GFR (MDRD) Non-Af 79 BUN/Creatinine Ratio 14.0 Glucose 265 H Calcium 8.7 Total Bilirubin 0.50 AST 17 ALT 26 Alkaline Phosphatase 79 Total Protein 7.0 Albumin 3.5 Globulin 3.5 Albumin/Globulin Ratio 1.0 Lipase 54 L Urine Color Yellow Urine Clarity Clear Urine pH 8.0 Ur Specific [place] 1.010 Urine Protein 15 H Urine Glucose (UA) 1000 H Urine Ketones 15 H Urine Occult Blood 10 H Urine Nitrite Positive H Urine Bilirubin Negative Urine Urobilinogen Normal Ur Leukocyte Esterase 100 H Urine RBC Not Reportable Urine WBC 5-10 SEEN Ur Squamous Epith Cells 0-5 SEEN Urine Bacteria 1+ Urine Mucus 0 SEEN Assessment/Plan All Active Problems (Last Reviewed 01/09/19 @ 01:29 by Kenn Bansal MD) Intractable nausea and vomiting (Acute) Sepsis due to urinary tract infection (Acute) Type 2 diabetes mellitus without complications (Acute) The patient is a 63 year old F with a significant history of anxiety and depression; chronic UTI; tobacco abuse; fibromyalgia; COPD; and type 2 diabetes who presented to the emergency department with persistent nausea; episodic vomiting; and dysuria and found to have leukocytosis; and abnormal urinalysis consistent with sepsis secondary to UTI; and intractable nausea and vomiting. Sepsis secondary to UTI SIRS: Leukocyte count of 12.4; tachycardia. Abnormal urinalysis Urine culture is pending. Blood culture is ordered. Lactic acid was within normal range. Received Aztreonam from the emergency department. Review of old records shows that on 04/27/2018 urine culture showed presumptive E. coli which was sensitive to aztreonam. Trend CBC and BMP. Intractable nausea and vomiting. Etiology is unclear at this time Zofran ordered. At the emergency department patient requested Reglan stating that in the past Reglan has helped her. Reglan prn ordered. Order to obtain records from [facility]. If symptoms persist consider gastric emptying study if not already done. Liver studies are unremarkable. Lipase is unremarkable. Diabetes mellitus On presentation his blood glucose was not within goal. Home insulin glargine continued. Correction scale insulin added to regimen. Accu-Chek QA CHS Calorie controlled diet ordered. Tobacco abuse Counseled Nicotine patch ordered. DVT prophylaxis Subcutaneous Lovenox ordered. Code Visit Inpatient E&M: 00705 Init Hosp L3
[2019-01-08 21:16] VITALS: BP 168/91; PULSE 85; RESP 14; O2SAT 94
[2019-01-08] MEDS: Metoclopramide 10 MG/2 ML Vial 5 MG IV (21:42)
[2019-01-08 22:09] LABS: Lactic Acid 1.9 mmol/L (0.4-2.0)
--- NOTE | 2019-01-08 22:21 | ED.VISSUMM ---
- ER Visit Summary Date of Service: 01/08/19 Chief Complaint: Nausea, vomiting, abdominal pain History of Present Illness: The patient is a 63 F with nausea, vomiting, and abdominal pain. The pain is in her upper abdomen. She has been dealing with the symptoms for about a month. She was recently diagnosed with GI and treated with Cipro. She said her symptoms are getting worse. Patient has a history of cholecystectomy and ERCP. She also reports history of complete hysterectomy. History of diabetes and COPD. She is a smoker. Reports subjective fevers and chills. Physical Examination: Afebrile and vital signs unremarkable. Alert and oriented. No acute distress. Heart regular rate and rhythm. Lungs clear. Abdomen soft and nontender. Back is nontender. Extremities nontender with no edema. Skin normal in color. Test Results: White count 12.4. Glucose 265. Hepatic panel and lipase unremarkable. Urinalysis is concerning for UTI. Culture is pending. CT showed postoperative changes consistent with cholecystectomy and pneumobilia. She has a fatty liver and hepatomegaly. Emergency Department Course and Treatment: Patient treated with pain meds and Zofran. She had continued pain and vomiting. She required additional dosing. Urinalysis is concerning for UTI. Her white count was 12.4. Patient had cultures in the past that showed resistance to Cipro. She was sensitive to aztreonam and was treated with this as she has a penicillin allergy. Given her intractable nausea and vomiting, I do not believe she will do well at home with oral antibiotics. I contacted the hospitalist for further care. Treatment Plan: As above Disposition: Admission Impression: 1. UTI 2. Intractable nausea vomiting This note was generated with Cadent dictation software. It may contain incorrect words, spelling, and punctuation that were not noted in review of the chart prior to signing ED Disposition - Plan for ED Patient: Referrals: Ricci Broussard MD [Primary Care Provider] -
[2019-01-08 23:09] VITALS: BMI 36.2
[2019-01-08 23:19] VITALS: BMI 36.2
[2019-01-08 23:30] VITALS: BP 151/83; PULSE 83; RESP 18; TEMP 36.9; O2SAT 98
[2019-01-08] MEDS: Amitriptyline 25 MG Tablet PO (23:35)
[2019-01-08] MEDS: Pregabalin 75 MG Capsule 150 MG PO (23:41)
[2019-01-08] MEDS: Insulin Lispro 100 UNIT/ML INSULN.PEN SQ (23:59)
[2019-01-09] VITALS (10 sets, daily range): BP systolic 134–149; BP diastolic 73–80; PULSE 76–92; RESP 16–18; TEMP 36.7–37.3; O2SAT 90–93
[2019-01-09 00:10] LABS: Bedside Glucose 156 mg/dL (70-110)
[2019-01-09] MEDS: Pregabalin 75 MG Capsule 150 MG PO ×3 (06:40→21:24)
[2019-01-09 06:51] LABS: Bedside Glucose 158 mg/dL (70-110)
[2019-01-09] MEDS: Metoclopramide 10 MG/2 ML Vial 2.5 MG IV (06:51)
[2019-01-09] MEDS: Insulin Lispro 100 UNIT/ML INSULN.PEN SQ ×4 (06:57→21:24)
[2019-01-09 07:35] LABS: Absolute Lymphocyte Count 3.25 X10^3/ul (0.83-4.51); Absolute Neutrophil Count 7.1 X10^3/uL (2.0-7.7); Basophil# 0.02 X10^3/uL; Basophil% 0.2 % (0-1); Eosinophil# 0.15 X10^3/uL; Eosinophils% 1.3 % (0-5); Hemoglobin 14.4 g/dl (12.0-15.0); Lymphocyte # 3.25 X10^3/ul (4.0); Lymphocyte % 28.5 % (19-41); Mean Corp Hgb Conc 33.5 g/gl (32-36); Mean Corpuscular Hgb 29.6 pg (27.0-32.0); Mean Corpuscular Volume 88.3 fL (81-99); Mean Platelet Vol. 9.5 fl (6.2-12.0); Monocyte# 0.86 X10^3/uL; Monocyte% 7.5 % (0-10); Neutrophil % 62.2 % (47-70); Platelet Count 276 K/mm3 (150-450); RBC Distribution Width CV 13.9 % (11.6-14.6); RBC Distribution Width SD 44.4 fl (35.1-43.9); Red Blood Count 4.87 M/mm3 (4.2-5.4); White Blood Count 11.4 K/mm3 (4.4-11.0)
[2019-01-09 07:36] LABS: POSITIVE COUNT NO; POSITIVE DIFFERENTIAL NO; POSITIVE MORPHOLOGY NO
[2019-01-09 07:48] LABS: Anion Gap 5 (5-15); BUN 8 mg/dL (7-18); BUN/Creat Ratio 13.4 RATIO (10-20); Calcium,Total 8.2 mg/dL (8.5-10.1); Chloride 110 mmol/L (98-107); EST Glomerular Filtration Rate 108 mL/min (>60); Est Glom Filt Rate - Afr Amer 131 mL/min (>60); Estimated Creatinine Clearance 92.18 ml/min; Glucose 158 mg/dL (74-106); Potassium 3.7 mmol/L (3.5-5.1); Sodium Level 142 mmol/L (136-145)
--- NOTE | 2019-01-09 10:45 | CM.UR ---
RN CM Assessment Met face to face with patient for initial transition planning/care coordination assessment. Introduced myself and my role. Verb understanding and agreement for assessment. Patient lying in bed. Presentation: + nausea x 2.5 months PCP: Ricci lozoya Specialists: Dannielle (GI seen about 1 year ago); Saw rizwan Mejia NP Preferred Pharmacy: [facility] ([facility]) Insurance: [facility] and [facility] Prescription Benefit: says she has AARP for RX. States everything is under $11. LNOK: Tammi Walker, daughter Home: Mobile Home with 3 steps. ADLs: independent Transportation: Self DME: nebulizer. [facility] [place] medical equipment. SNF/HHC: Denies Passport/waiver storm window installer: Denies Advance Directives: None, accepted booklet and education. DC PLAN: home, denies any needs. no needs anticipated. Horacio Winston RN, CCM
[2019-01-09 11:45] LABS: Bedside Glucose 260 mg/dL (70-110)
[2019-01-09] MEDS: Enoxaparin 40 MG/0.4 ML Syringe SC (12:21)
[2019-01-09] MEDS: Metoclopramide 10 MG/2 ML Vial IV ×2 (12:23→21:10)
[2019-01-09] MEDS: 0.9% NaCl Peripheral Flush Adult/Peds IV ×3 (12:23→21:41)
[2019-01-09] MEDS: Morphine 2 MG/ML Syringe IV ×2 (12:23→21:41)
[2019-01-09] MEDS: Glucerna Shake 120 ML LIQUID PO ×3 (12:38→21:28)
--- NOTE | 2019-01-09 13:25 | CASEMGMT ---
Social Work MS3 Reason for consult: caregiver support resources Referral source: NITIN REA Summary: Brief chart review. Met with patient in room introducing to social work role and reason for visit. Patient agreeable to talk with social insurance specialist. 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 Patient reports has always had the granddaughter. Patient reports the goddaughters's mother, patient's daughter, is in and out of the home struggling with own health issues. Patient reports to feel responsibility to help others. Patient admits that own needs go by the wayside due to focus of care on others. Patient spontaneously shared that patient's son after a brief and unexpected illness in October of 2018. Patient talked of thoughts and emotions has been experience since son's and frustration at other people's responses about where patient is at in the grieving process. Patient denies any thoughts of suicide but admits that sometimes feels sad and wants to be with her son. Patient reports to have a strong jacky and that this is helpful to patient in knowing that eventually patient will be with her son again, and at the same time a factor in why patient would not consider suicide. Patient also reports would never harm self because too many people need the patient, including the 12 year old granddaughter. Patient denies any history of suicidal thoughts, plans, or intent. Patient tearful and crying during social work visit. Allowed patient time to share thoughts, feelings, and reactions. Normalized patient's grief responses, educated that grief looks different to different people. Patient verbalized wondering if current medical issues were directly related to how patient is feeling emotionally but decided to get checked out due have similar medical issues in the past (without the emotional issues present). Patient expressed thanks for having someone to talk to for a little bit, and that sharing experiences was helpful. Discussed caregiver support groups and grief support groups. Patient not interested in attending any at this point. Patient receptive to social work education on a engineer technical staff care consultation through the [facility], to see if there are any resources available to patient and being over the age of 60. Discussed with patient, there could be potential support to the , which may help to alleviate some things for patient's caregiving responsibilities. Patient open to having a referral made to learn more about what community resources are available. Plan: Return home. medicine worker will make a referral for a engineer technical staff care consultation after the weekend time frame. -JONA Reed, YOUTH DEVELOPMENT PROFESSIONAL
--- NOTE | 2019-01-09 14:00 | RAD_ITS ---
STUDY: X-RAY - ABDOMEN/PELVIS REASON FOR EXAM: Female, 63 years old. Abdominal distention TECHNIQUE: Frontal views of the abdomen obtained COMPARISON: X-ray abdomen October 13, 2017 FINDINGS: There is no bowel obstruction. Moderate stool is present throughout the colon. The visualized osseous structures are within normal limits. RAD/Abdomen Single View (Portable) IMPRESSION: No bowel obstruction. Moderate stool throughout the colon. Electronically Signed: Johnathan Kinney, at 15:12 EDT Tel , Service support ,
--- NOTE | 2019-01-09 14:06 | PN_ITS ---
<Nestor Henson - Last Filed: 01/09/19 13:58> Patient Problems: Active and Suspected Problems (Last Reviewed 01/09/19 @ 01:29 by Kenn Bansal MD) Intractable nausea and vomiting (Acute) Subjective: Pt has ongoing severe abdominal pain and nausea, bloating. No flatus, no BM. No vomiting so far today. No fever/chills. She has had recent dysuria and frequency. States she saw Dannielle about 1.5 years ago, had EGD, and was told she had a hiatal hernia at that time. - Physical Exam General: Alert, Oriented x3, Cooperative HEENT: Atraumatic, PERRLA, EOMI, Normocephalic Neck: Supple, No JVD, Negative Carotid Bruits Lungs: Clear to auscultation, Normal air movement Cardiovascular: Regular rate, No murmurs Abdomen: Hypoactive Bowel Sounds, Guarding, Tender Extremities: No edema, Capillary Refill Less than 3 Seconds Skin: No rashes, No breakdown Musculoskeletal: No Tenderness to Palpation of Joints or Extremities Neurological: Cranial nerves II-XII grossly intact Psych/Mental Status: Normal Affect, Appropriate, Alert and oriented to time, place, person, mood and affect Vital Signs Temp Pulse Resp BP Pulse Ox 98.1 F 82 16 134/79 H 93 01/09/19 08:34 01/09/19 10:00 01/09/19 08:34 01/09/19 08:34 01/09/19 08:34 Oxygen Delivery Method Room Air Weight: 224 lb 6.889 oz Body Mass Index (BMI) 36.2 Intake and Output for Last 24 Hours 01/07/19 01/08/19 01/09/19 23:59 23:59 23:59 Intake Total 259 / 259 325.4 / 325.4 Output Total 200 / 200 Balance 259 / 259 125.4 / 125.4 Microbiology Past 72 Hours 01/08/19 20:28 Urine Culture - Preliminary Urine, Clean Catch Presumptive E. coli Laboratory Tests Past 24 Hrs 01/08/19 01/08/19 01/08/19 17:50 17:50 19:25 WBC 12.4 H RBC 4.82 Hgb 14.4 Hct 42.6 MCV 88.4 MCH 29.9 MCHC 33.8 RDW 13.6 RDW Differential 44.0 H Plt Count 252 MPV 9.5 Immature Gran % (Auto) 0.200 Neut % (Auto) 79.1 H Lymph % (Auto) 16.2 L [place] % (Auto) 4.1 Eos % (Auto) 0.2 Baso % (Auto) 0.2 Absolute Neuts (auto) 9.9 H Absolute Lymphs (auto) 2.01 Total Counted Not Reportable Sodium 139 Potassium 3.8 Chloride 107 Carbon Dioxide 27.0 Anion Gap 5 BUN 11 Creatinine 0.79 Estim Creat Clear Calc 72.72 Est GFR (MDRD) Af Amer 95 Est GFR (MDRD) Non-Af 79 BUN/Creatinine Ratio 14.0 Glucose 265 H Lactic Acid Calcium 8.7 Total Bilirubin 0.50 AST 17 ALT 26 Alkaline Phosphatase 79 Total Protein 7.0 Albumin 3.5 Globulin 3.5 Albumin/Globulin Ratio 1.0 Lipase 54 L Urine Color Yellow Urine Clarity Clear Urine pH 8.0 Ur Specific [place] 1.010 Urine Protein 15 H Urine Glucose (UA) 1000 H Urine Ketones 15 H Urine Occult Blood 10 H Urine Nitrite Positive H Urine Bilirubin Negative Urine Urobilinogen Normal Ur Leukocyte Esterase 100 H Urine RBC Not Reportable Urine WBC 5-10 SEEN Ur Squamous Epith Cells 0-5 SEEN Urine Bacteria 1+ Urine Mucus 0 SEEN 01/08/19 01/09/19 01/09/19 20:20 06:56 06:56 WBC 11.4 H RBC 4.87 Hgb 14.4 Hct 43.0 MCV 88.3 MCH 29.6 MCHC 33.5 RDW 13.9 RDW Differential 44.4 H Plt Count 276 MPV 9.5 Immature Gran % (Auto) 0.300 Neut % (Auto) 62.2 Lymph % (Auto) 28.5 [place] % (Auto) 7.5 Eos % (Auto) 1.3 Baso % (Auto) 0.2 Absolute Neuts (auto) 7.1 Absolute Lymphs (auto) 3.25 Total Counted Not Reportable Sodium 142 Potassium 3.7 Chloride 110 H Carbon Dioxide 27.0 Anion Gap 5 BUN 8 Creatinine 0.60 Estim Creat Clear Calc 92.18 Est GFR (MDRD) Af Amer 131 Est GFR (MDRD) Non-Af 108 BUN/Creatinine Ratio 13.4 Glucose 158 H Lactic Acid 1.9 Calcium 8.2 L Total Bilirubin AST ALT Alkaline Phosphatase Total Protein Albumin Globulin Albumin/Globulin Ratio Lipase Urine Color Urine Clarity Urine pH Ur Specific [place] Urine Protein Urine Glucose (UA) Urine Ketones Urine Occult Blood Urine Nitrite Urine Bilirubin Urine Urobilinogen Ur Leukocyte Esterase Urine RBC Urine WBC Ur Squamous Epith Cells Urine Bacteria Urine Mucus POC Glucose 01/09/19 01/09/19 01/08/19 11:39 06:44 23:46 POC Glucose 260 H 158 H 156 H Medical Necessity - Tobacco Use Smoking Status: Current every day smoker Tobacco Use: Cigarettes Assessment/Plan All Active Problems (Last Reviewed 01/09/19 @ 01:29 by Kenn Bansal MD) Intractable nausea and vomiting (Acute) 1. Acute abdominal pain 2/2 suspected gastroparesis - increase reglan, sup portive care, NPO, KUB for ongoing distention and hypoactive bowel sounds. Diet to clear liquids. Saw Dr. Spicer in past and had EGD showing hiatal hernia, no further treatment/follow up. Will need referral as o/p. Lipase neg. CT abdomen with pneumobilia, fatty liver/hepatomegaly. LFTs normal. 2. Acute cystitis - E coli, last with ESBL. Change Aztreonam to meropenem. Mild WBC. No fever. Recent dysuria. LA negative. 3. DMt2 with obesity - poorly controlled. Continue SSI, lantus. 4. Nicotine abuse - patch 5. COPD - no SOB at this time. PRN albuterol 6. Hx Fibromyalgia DVT ppx: lovenox DC planning: PTOT. This patient was seen by Nestor Henson PA-C under the supervision of Dr. Larsen. <Sayda Larsen E - Last Filed: 01/09/19 14:21> - Physical Exam Vital Signs Temp Pulse Resp BP Pulse Ox 98.1 F 82 16 134/79 H 93 01/09/19 08:34 01/09/19 10:00 01/09/19 08:34 01/09/19 08:34 01/09/19 08:34 Oxygen Delivery Method Room Air Weight: 224 lb 6.889 oz Body Mass Index (BMI) 36.2 Intake and Output for Last 24 Hours 01/07/19 01/08/19 01/09/19 23:59 23:59 23:59 Intake Total 259 / 259 325.4 / 325.4 Output Total 200 / 200 Balance 259 / 259 125.4 / 125.4 Microbiology Past 72 Hours 01/08/19 20:28 Urine Culture - Preliminary Urine, Clean Catch Presumptive E. coli Laboratory Tests Past 24 Hrs 01/08/19 01/08/19 01/08/19 17:50 17:50 19:25 WBC 12.4 H RBC 4.82 Hgb 14.4 Hct 42.6 MCV 88.4 MCH 29.9 MCHC 33.8 RDW 13.6 RDW Differential 44.0 H Plt Count 252 MPV 9.5 Immature Gran % (Auto) 0.200 Neut % (Auto) 79.1 H Lymph % (Auto) 16.2 L [place] % (Auto) 4.1 Eos % (Auto) 0.2 Baso % (Auto) 0.2 Absolute Neuts (auto) 9.9 H Absolute Lymphs (auto) 2.01 Total Counted Not Reportable Sodium 139 Potassium 3.8 Chloride 107 Carbon Dioxide 27.0 Anion Gap 5 BUN 11 Creatinine 0.79 Estim Creat Clear Calc 72.72 Est GFR (MDRD) Af Amer 95 Est GFR (MDRD) Non-Af 79 BUN/Creatinine Ratio 14.0 Glucose 265 H Lactic Acid Calcium 8.7 Total Bilirubin 0.50 AST 17 ALT 26 Alkaline Phosphatase 79 Total Protein 7.0 Albumin 3.5 Globulin 3.5 Albumin/Globulin Ratio 1.0 Lipase 54 L Urine Color Yellow Urine Clarity Clear Urine pH 8.0 Ur Specific [place] 1.010 Urine Protein 15 H Urine Glucose (UA) 1000 H Urine Ketones 15 H Urine Occult Blood 10 H Urine Nitrite Positive H Urine Bilirubin Negative Urine Urobilinogen Normal Ur Leukocyte Esterase 100 H Urine RBC Not Reportable Urine WBC 5-10 SEEN Ur Squamous Epith Cells 0-5 SEEN Urine Bacteria 1+ Urine Mucus 0 SEEN 01/08/19 01/09/19 01/09/19 20:20 06:56 06:56 WBC 11.4 H RBC 4.87 Hgb 14.4 Hct 43.0 MCV 88.3 MCH 29.6 MCHC 33.5 RDW 13.9 RDW Differential 44.4 H Plt Count 276 MPV 9.5 Immature Gran % (Auto) 0.300 Neut % (Auto) 62.2 Lymph % (Auto) 28.5 [place] % (Auto) 7.5 Eos % (Auto) 1.3 Baso % (Auto) 0.2 Absolute Neuts (auto) 7.1 Absolute Lymphs (auto) 3.25 Total Counted Not Reportable Sodium 142 Potassium 3.7 Chloride 110 H Carbon Dioxide 27.0 Anion Gap 5 BUN 8 Creatinine 0.60 Estim Creat Clear Calc 92.18 Est GFR (MDRD) Af Amer 131 Est GFR (MDRD) Non-Af 108 BUN/Creatinine Ratio 13.4 Glucose 158 H Lactic Acid 1.9 Calcium 8.2 L Total Bilirubin AST ALT Alkaline Phosphatase Total Protein Albumin Globulin Albumin/Globulin Ratio Lipase Urine Color Urine Clarity Urine pH Ur Specific [place] Urine Protein Urine Glucose (UA) Urine Ketones Urine Occult Blood Urine Nitrite Urine Bilirubin Urine Urobilinogen Ur Leukocyte Esterase Urine RBC Urine WBC Ur Squamous Epith Cells Urine Bacteria Urine Mucus POC Glucose 01/09/19 01/09/19 01/08/19 11:39 06:44 23:46 POC Glucose 260 H 158 H 156 H Assessment/Plan Hospitalist note: I am seeing this patient in conjunction with Nestor Henson. I independently seen and examined the patient. Progress note above, laboratory data and imaging studies reviewed and I agree with above treatment plan. Patient seen and examined today. She is still complaining of abdominal pain with persistent nausea. She mentioned that she has been having this pain for the last 2 and half months, generalized vague abdominal pain, intermittent, associated with persistent nausea and occasional vomiting. No reported aggravating or relieving factors for this pain. Her vital signs are stable. - Physical Exam General: Alert, Oriented x3, Cooperative, No apparent distress, depressed. HEENT: Atraumatic, PERRLA, EOMI. Neck: Supple, No JVD, Negative Carotid Bruits, Trachea Midline, Thyroid Normal. Lungs: Clear to auscultation, Normal air movement, No rhonchi, No wheeze, No rales. Cardiovascular: Regular rate, Regular Rhythm, Normal S1, Normal S2, PMI Normal. Abdomen: Bowel Sounds Present, Soft, minimal superficial tenderness, Non- Distended, No Hepato-splenomegaly. Extremities: No clubbing, No cyanosis, No edema Skin: No rashes, No breakdown Neurological: Neuro grossly intact Vital Signs are stable. Assessment and plan: #1 abdominal pain/intractable nausea and vomiting: No symptoms are chronic for the last couple of months. Unclear etiology, could be due to gastroparesis although patient was diagnosed with diabetes around 2 years ago. I doubt this abdominal pain with nausea and vomiting for the last 2 months due to urinary tract infection. On admission, CT scan abdomen and pelvis with IV contrast showed no acute intra-abdominal findings. Routine blood work revealed mild leukocytosis, otherwise normal. LFT and lipase were normal. Lactic acid was normal. Plan: Change IV Reglan to 10 mg every 12 hours, start Phenergan IV as needed, start IV morphine PRN, Protonix IV, Xanax as needed. #2 acute cystitis: Without evidence of sepsis with sepsis. She is on IV aztreonam. Previous urine culture revealed ESBL E. coli. Patient has been afebrile, white blood cell count is trending down. Urine culture sent. Plan to change IV aztreonam to IV meropenem. #3 other chronic medical problems: Continue current medications as above. This note was generated with [employer] dictation software. It may contain incorrect words, spelling, and punctuation that were not noted in checking the note before signing. Code Visit Inpatient E&M: 81899 Subs Hosp L2
[2019-01-09] MEDS: ALPRAZolam 0.5 MG Tablet PO (14:47)
[2019-01-09 18:20] LABS: Bedside Glucose 257 mg/dL (70-110)
[2019-01-09] MEDS: Amitriptyline 25 MG Tablet PO (21:24)
[2019-01-09 22:30] LABS: Bedside Glucose 191 mg/dL (70-110)
[2019-01-10] VITALS (8 sets, daily range): BP systolic 136–147; BP diastolic 79–86; PULSE 71–81; RESP 16–20; TEMP 36.6–36.8; O2SAT 92–97
[2019-01-10] MEDS: Pregabalin 75 MG Capsule 150 MG PO ×3 (05:57→21:22)
[2019-01-10] MEDS: ALPRAZolam 0.5 MG Tablet PO ×2 (06:03→23:46)
[2019-01-10 06:20] LABS: Absolute Lymphocyte Count 3.53 X10^3/ul (0.83-4.51); Absolute Neutrophil Count 6.5 X10^3/uL (2.0-7.7); Basophil# 0.04 X10^3/uL; Basophil% 0.4 % (0-1); Eosinophils% 0.9 % (0-5); Hematocrit 42.3 % (37-47); Hemoglobin 13.9 g/dl (12.0-15.0); Lymphocyte # 3.53 X10^3/ul (4.0); Lymphocyte % 32.3 % (19-41); Mean Corp Hgb Conc 32.9 g/gl (32-36); Mean Corpuscular Hgb 29.4 pg (27.0-32.0); Mean Corpuscular Volume 89.6 fL (81-99); Mean Platelet Vol. 9.3 fl (6.2-12.0); Monocyte# 0.73 X10^3/uL; Monocyte% 6.7 % (0-10); Neutrophil # 6.51 X10^3/uL (2.7-7.7); Neutrophil % 59.5 % (47-70); Platelet Count 238 K/mm3 (150-450); RBC Distribution Width CV 13.6 % (11.6-14.6); RBC Distribution Width SD 45.2 fl (35.1-43.9); Red Blood Count 4.72 M/mm3 (4.2-5.4); White Blood Count 10.9 K/mm3 (4.4-11.0)
[2019-01-10 06:31] LABS: POSITIVE COUNT NO; POSITIVE DIFFERENTIAL NO; POSITIVE MORPHOLOGY NO
[2019-01-10 08:51] LABS: Bedside Glucose 166 mg/dL (70-110)
[2019-01-10] MEDS: Ondansetron 4 MG/2 ML Vial IV (09:05)
[2019-01-10] MEDS: Metoclopramide 10 MG/2 ML Vial IV ×2 (09:05→21:36)
[2019-01-10] MEDS: Insulin Lispro 100 UNIT/ML INSULN.PEN SQ ×3 (09:08→17:14)
[2019-01-10] MEDS: Enoxaparin 40 MG/0.4 ML Syringe SC (09:11)
[2019-01-10] MEDS: 0.9% NaCl Peripheral Flush Adult/Peds IV ×3 (09:11→21:40)
[2019-01-10] MEDS: Morphine 2 MG/ML Syringe IV (10:55)
[2019-01-10] MEDS: Polyethylene Glycol 3350 17 GM PACKET PO (10:55)
[2019-01-10 12:00] LABS: Bedside Glucose 237 mg/dL (70-110)
[2019-01-10] MEDS: Glucerna Shake 120 ML LIQUID PO ×2 (14:27→21:26)
[2019-01-10] MEDS: Senna/Docusate Sodium 1 Tablet PO (14:27)
--- NOTE | 2019-01-10 14:38 | PCM.PROGNOTE ---
<Nestor Henson - Last Filed: 01/10/19 14:38> Patient Problems: Active and Suspected Problems (Last Reviewed 01/09/19 @ 01:29 by Kenn Bansal MD) Intractable nausea and vomiting (Acute) Subjective: Pt was given miralax which she reluctantly took. Afterwards her bowels started to move. She describes them as well formed. After this her abdominal pain improved. Pain is diffuse, still present. Nausea continues. She is agreeable to further laxatives just not Milk of mag. Was forced to take this as a child by her mother. - Physical Exam General: Alert, Oriented x3, Cooperative HEENT: Atraumatic, PERRLA, EOMI, Normocephalic Neck: Supple, No JVD, Negative Carotid Bruits Lungs: Clear to auscultation, Normal air movement Cardiovascular: Regular rate, No murmurs Abdomen: Bowel Sounds Present, Soft, Tender - diffuse. Extremities: No edema, Capillary Refill Less than 3 Seconds Skin: No rashes, No breakdown Musculoskeletal: No Tenderness to Palpation of Joints or Extremities Neurological: Cranial nerves II-XII grossly intact Psych/Mental Status: Normal Affect, Appropriate, Alert and oriented to time, place, person, mood and affect Vital Signs Temp Pulse Resp BP Pulse Ox 97.8 F 76 20 H 136/79 H 97 01/10/19 08:56 01/10/19 10:30 01/10/19 08:56 01/10/19 08:56 01/10/19 08:56 Oxygen Delivery Method Room Air Weight: 224 lb 6.889 oz Body Mass Index (BMI) 36.2 Intake and Output for Last 24 Hours 01/08/19 01/09/19 01/10/19 23:59 23:59 23:59 Intake Total 259 / 259 960.4 / 960.4 1274 / 1274 Output Total 200 / 200 400 / 400 Balance 259 / 259 760.4 / 760.4 874 / 874 Microbiology Past 72 Hours 01/08/19 20:28 Urine Culture - Preliminary Urine, Clean Catch Presumptive E. coli Laboratory Tests Past 24 Hrs 01/10/19 05:52 WBC 10.9 RBC 4.72 Hgb 13.9 Hct 42.3 MCV 89.6 MCH 29.4 MCHC 32.9 RDW 13.6 RDW Differential 45.2 H Plt Count 238 MPV 9.3 Immature Gran % (Auto) 0.200 Neut % (Auto) 59.5 Lymph % (Auto) 32.3 [place] % (Auto) 6.7 Eos % (Auto) 0.9 Baso % (Auto) 0.4 Absolute Neuts (auto) 6.5 Absolute Lymphs (auto) 3.53 Total Counted Not Reportable POC Glucose 01/10/19 01/10/19 01/09/19 11:47 08:42 21:07 POC Glucose 237 H 166 H 191 H 01/09/19 18:11 POC Glucose 257 H Medical Necessity - Tobacco Use Smoking Status: Current every day smoker Tobacco Use: Cigarettes Assessment/Plan All Active Problems (Last Reviewed 01/09/19 @ 01:29 by Kenn Bansal MD) Intractable nausea and vomiting (Acute) 1. Acute abdominal pain 2/2 suspected gastroparesis - reglan, supportive care, laxatives, clear liquid diet. KUB with constipation. BM after laxative with relief of pain. Mirlax/sennokot. Saw Dr. Spicer in past and had EGD showing hiatal hernia, no further treatment/follow up. Will need referral as o/p. Lipase neg. CT abdomen with pneumobilia, fatty liver/hepatomegaly. LFTs normal. 2. Acute cystitis - E coli, last with ESBL. Change Aztreonam to meropenem. Mild WBC. No fever. Recent dysuria. LA negative. 3. DMt2 with obesity - poorly controlled. Continue SSI, lantus. 4. Nicotine abuse - patch 5. COPD - no SOB at this time. PRN albuterol 6. Hx Fibromyalgia DVT ppx: lovenox DC planning: PTOT. Likely home tomorrow. Advance diet cautiously. This patient was seen by Nestor Henson PA-C under the supervision of Dr. Larsen. <Sayda Larsen - Last Filed: 01/10/19 14:46> - Physical Exam Vital Signs Temp Pulse Resp BP Pulse Ox 97.8 F 76 20 H 136/79 H 97 01/10/19 08:56 01/10/19 10:30 01/10/19 08:56 01/10/19 08:56 01/10/19 08:56 Oxygen Delivery Method Room Air Weight: 224 lb 6.889 oz Body Mass Index (BMI) 36.2 Intake and Output for Last 24 Hours 01/08/19 01/09/19 01/10/19 23:59 23:59 23:59 Intake Total 259 / 259 960.4 / 960.4 1274 / 1274 Output Total 200 / 200 400 / 400 Balance 259 / 259 760.4 / 760.4 874 / 874 Microbiology Past 72 Hours 01/08/19 20:28 Urine Culture - Preliminary Urine, Clean Catch Presumptive E. coli Laboratory Tests Past 24 Hrs 01/10/19 05:52 WBC 10.9 RBC 4.72 Hgb 13.9 Hct 42.3 MCV 89.6 MCH 29.4 MCHC 32.9 RDW 13.6 RDW Differential 45.2 H Plt Count 238 MPV 9.3 Immature Gran % (Auto) 0.200 Neut % (Auto) 59.5 Lymph % (Auto) 32.3 [place] % (Auto) 6.7 Eos % (Auto) 0.9 Baso % (Auto) 0.4 Absolute Neuts (auto) 6.5 Absolute Lymphs (auto) 3.53 Total Counted Not Reportable POC Glucose 01/10/19 01/10/19 01/09/19 11:47 08:42 21:07 POC Glucose 237 H 166 H 191 H 01/09/19 18:11 POC Glucose 257 H Assessment/Plan Hospitalist note: I am seeing this patient in conjunction with Nestor eHnson. I independently seen and examined the patient. Progress note above, laboratory data reviewed and I agree with above treatment plan. Patient seen and examined today. She is still complaining of persistent nausea and abdominal pain but she is stated that Reglan is working and it did help her pain as well as nausea. X-ray abdomen revealed moderate amount of stool. Her vital signs are stable. - Physical Exam General: Alert, Oriented x3, Cooperative, No apparent distress, depressed. HEENT: Atraumatic, PERRLA, EOMI. Neck: Supple, No JVD, Negative Carotid Bruits, Trachea Midline, Thyroid Normal. Lungs: Clear to auscultation, Normal air movement, No rhonchi, No wheeze, No rales. Cardiovascular: Regular rate, Regular Rhythm, Normal S1, Normal S2, PMI Normal. Abdomen: Bowel Sounds Present, Soft, minimal superficial tenderness, Non-Distended, No Hepato-splenomegaly. Extremities: No clubbing, No cyanosis, No edema Skin: No rashes, No breakdown Neurological: Neuro grossly intact Vital Signs are stable. Assessment and plan: #1 abdominal pain/intractable nausea and vomiting: She is on IV morphine PRN, IV Reglan and PPI. She reported some improvement of her symptoms with IV Reglan and she mentioned that her symptoms are intermittent and recurrent. Unclear etiology, could be due to gastroparesis although patient was diagnosed with diabetes around 2 years ago. On admission, CT scan abdomen and pelvis with IV contrast showed no acute intra-abdominal findings. Routine blood work revealed mild leukocytosis, otherwise normal. LFT and lipase were normal. Lactic acid was normal. KUB revealed moderate amount of stool throughout the colon. Plan: Laxative, change Reglan to 10 mg every 8 hours as needed, continue IV morphine. #2 acute cystitis: She is on IV meropenem. She is afebrile, no leukocytosis. Previous urine culture revealed ESBL E. coli. Urine culture again revealed ESBL E. coli, blood cultures pending. #3 other chronic medical problems: Continue current medications as above. This note was generated with [employer] software. It may contain incorrect words, spelling, and punctuation that were not noted in checking the note before signing. Code Visit Inpatient E&M: 39618 Subs Hosp L2
--- NOTE | 2019-01-10 14:42 | PN_ITS ---
Addendum entered and electronically signed by MARY Candelaria 01/11/19 11:56: Code Visit Addendum : Sepsis 2/2 UTI ruled out, pts symptoms were primarily due to constipation. Original Note: <Nestor Henson - Last Filed: 01/10/19 14:38> Patient Problems: Active and Suspected Problems (Last Reviewed 01/09/19 @ 01:29 by Kenn Bansal MD) Intractable nausea and vomiting (Acute) Subjective: Pt was given miralax which she reluctantly took. Afterwards her bowels started to move. She describes them as well formed. After this her abdominal pain improved. Pain is diffuse, still present. Nausea continues. She is agreeable to further laxatives just not Milk of mag. Was forced to take this as a child by her mother. - Physical Exam General: Alert, Oriented x3, Cooperative HEENT: Atraumatic, PERRLA, EOMI, Normocephalic Neck: Supple, No JVD, Negative Carotid Bruits Lungs: Clear to auscultation, Normal air movement Cardiovascular: Regular rate, No murmurs Abdomen: Bowel Sounds Present, Soft, Tender - diffuse. Extremities: No edema, Capillary Refill Less than 3 Seconds Skin: No rashes, No breakdown Musculoskeletal: No Tenderness to Palpation of Joints or Extremities Neurological: Cranial nerves II-XII grossly intact Psych/Mental Status: Normal Affect, Appropriate, Alert and oriented to time, place, person, mood and affect Vital Signs Temp Pulse Resp BP Pulse Ox 97.8 F 76 20 H 136/79 H 97 01/10/19 08:56 01/10/19 10:30 01/10/19 08:56 01/10/19 08:56 01/10/19 08:56 Oxygen Delivery Method Room Air Weight: 224 lb 6.889 oz Body Mass Index (BMI) 36.2 Intake and Output for Last 24 Hours 01/08/19 01/09/19 01/10/19 23:59 23:59 23:59 Intake Total 259 / 259 960.4 / 960.4 1274 / 1274 Output Total 200 / 200 400 / 400 Balance 259 / 259 760.4 / 760.4 874 / 874 Microbiology Past 72 Hours 01/08/19 20:28 Urine Culture - Preliminary Urine, Clean Catch Presumptive E. coli Laboratory Tests Past 24 Hrs 01/10/19 05:52 WBC 10.9 RBC 4.72 Hgb 13.9 Hct 42.3 MCV 89.6 MCH 29.4 MCHC 32.9 RDW 13.6 RDW Differential 45.2 H Plt Count 238 MPV 9.3 Immature Gran % (Auto) 0.200 Neut % (Auto) 59.5 Lymph % (Auto) 32.3 [place] % (Auto) 6.7 Eos % (Auto) 0.9 Baso % (Auto) 0.4 Absolute Neuts (auto) 6.5 Absolute Lymphs (auto) 3.53 Total Counted Not Reportable POC Glucose 01/10/19 01/10/19 01/09/19 11:47 08:42 21:07 POC Glucose 237 H 166 H 191 H 01/09/19 18:11 POC Glucose 257 H Medical Necessity - Tobacco Use Smoking Status: Current every day smoker Tobacco Use: Cigarettes Assessment/Plan All Active Problems (Last Reviewed 01/09/19 @ 01:29 by Kenn Bansal MD) Intractable nausea and vomiting (Acute) 1. Acute abdominal pain 2/2 suspected gastroparesis - reglan, supportive care, laxatives, clear liquid diet. KUB with constipation. BM after laxative with relief of pain. Mirlax/sennokot. Saw Dr. Spicer in past and had EGD showing hiatal hernia, no further treatment/follow up. Will need referral as o/p. Lipase neg. CT abdomen with pneumobilia, fatty liver/hepatomegaly. LFTs normal. 2. Acute cystitis - E coli, last with ESBL. Change Aztreonam to meropenem. Mild WBC. No fever. Recent dysuria. LA negative. 3. DMt2 with obesity - poorly controlled. Continue SSI, lantus. 4. Nicotine abuse - patch 5. COPD - no SOB at this time. PRN albuterol 6. Hx Fibromyalgia DVT ppx: lovenox DC planning: PTOT. Likely home tomorrow. Advance diet cautiously. This patient was seen by Nestor Henson PA-C under the supervision of Dr. Larsen. <Sayda Larsen - Last Filed: 01/10/19 14:46> - Physical Exam Vital Signs Temp Pulse Resp BP Pulse Ox 97.8 F 76 20 H 136/79 H 97 01/10/19 08:56 01/10/19 10:30 01/10/19 08:56 01/10/19 08:56 01/10/19 08:56 Oxygen Delivery Method Room Air Weight: 224 lb 6.889 oz Body Mass Index (BMI) 36.2 Intake and Output for Last 24 Hours 01/08/19 01/09/19 01/10/19 23:59 23:59 23:59 Intake Total 259 / 259 960.4 / 960.4 1274 / 1274 Output Total 200 / 200 400 / 400 Balance 259 / 259 760.4 / 760.4 874 / 874 Microbiology Past 72 Hours 01/08/19 20:28 Urine Culture - Preliminary Urine, Clean Catch Presumptive E. coli Laboratory Tests Past 24 Hrs 01/10/19 05:52 WBC 10.9 RBC 4.72 Hgb 13.9 Hct 42.3 MCV 89.6 MCH 29.4 MCHC 32.9 RDW 13.6 RDW Differential 45.2 H Plt Count 238 MPV 9.3 Immature Gran % (Auto) 0.200 Neut % (Auto) 59.5 Lymph % (Auto) 32.3 [place] % (Auto) 6.7 Eos % (Auto) 0.9 Baso % (Auto) 0.4 Absolute Neuts (auto) 6.5 Absolute Lymphs (auto) 3.53 Total Counted Not Reportable POC Glucose 01/10/19 01/10/19 01/09/19 11:47 08:42 21:07 POC Glucose 237 H 166 H 191 H 01/09/19 18:11 POC Glucose 257 H Assessment/Plan Hospitalist note: I am seeing this patient in conjunction with Nestor Henson. I independently seen and examined the patient. Progress note above, laboratory data reviewed and I agree with above treatment plan. Patient seen and examined today. She is still complaining of persistent nausea and abdominal pain but she is stated that Reglan is working and it did help her pain as well as nausea. X-ray abdomen revealed moderate amount of stool. Her vital signs are stable. - Physical Exam General: Alert, Oriented x3, Cooperative, No apparent distress, depressed. HEENT: Atraumatic, PERRLA, EOMI. Neck: Supple, No JVD, Negative Carotid Bruits, Trachea Midline, Thyroid Normal. Lungs: Clear to auscultation, Normal air movement, No rhonchi, No wheeze, No rales. Cardiovascular: Regular rate, Regular Rhythm, Normal S1, Normal S2, PMI Normal. Abdomen: Bowel Sounds Present, Soft, minimal superficial tenderness, Non- Distended, No Hepato-splenomegaly. Extremities: No clubbing, No cyanosis, No edema Skin: No rashes, No breakdown Neurological: Neuro grossly intact Vital Signs are stable. Assessment and plan: #1 abdominal pain/intractable nausea and vomiting: She is on IV morphine PRN, IV Reglan and PPI. She reported some improvement of her symptoms with IV Reglan and she mentioned that her symptoms are intermittent and recurrent. Unclear etiology, could be due to gastroparesis although patient was diagnosed with diabetes around 2 years ago. On admission, CT scan abdomen and pelvis with IV contrast showed no acute intra-abdominal findings. Routine blood work revealed mild leukocytosis, otherwise normal. LFT and lipase were normal. Lactic acid was normal. KUB revealed moderate amount of stool throughout the colon. Plan: Laxative, change Reglan to 10 mg every 8 hours as needed, continue IV morphine. #2 acute cystitis: She is on IV meropenem. She is afebrile, no leukocytosis. Previous urine culture revealed ESBL E. coli. Urine culture again revealed ESBL E. coli, blood cultures pending. #3 other chronic medical problems: Continue current medications as above. This note was generated with [employer] software. It may contain incorrect words, spelling, and punctuation that were not noted in checking the note before signing. Code Visit Inpatient E&M: 90549 Subs Hosp L2
[2019-01-10] MEDS: oxyCODONE 5 MG Tablet PO ×2 (17:14→21:22)
[2019-01-10 17:41] LABS: Bedside Glucose 155 mg/dL (70-110)
[2019-01-10] MEDS: Amitriptyline 25 MG Tablet PO (21:24)
[2019-01-10 21:36] LABS: Bedside Glucose 110 mg/dL (70-110)
[2019-01-11 02:06] VITALS: BP 136/86; PULSE 75; RESP 14; TEMP 36.6; O2SAT 93
[2019-01-11] MEDS: oxyCODONE 5 MG Tablet PO ×4 (05:31→21:44)
[2019-01-11] MEDS: Pregabalin 75 MG Capsule 150 MG PO ×3 (05:31→21:29)
[2019-01-11] MEDS: Metoclopramide 10 MG/2 ML Vial IV ×2 (05:31→16:55)
[2019-01-11] MEDS: 0.9% NaCl Peripheral Flush Adult/Peds IV ×2 (05:32→16:55)
[2019-01-11 07:00] LABS: Bedside Glucose 118 mg/dL (70-110)
[2019-01-11 07:33] VITALS: O2SAT 94
[2019-01-11 07:45] VITALS: BP 128/79; PULSE 69; RESP 16; TEMP 36.7; O2SAT 96
[2019-01-11] MEDS: Enoxaparin 40 MG/0.4 ML Syringe SC (09:34)
[2019-01-11] MEDS: Pantoprazole Sodium 40 MG Tablet PO (09:35)
[2019-01-11] MEDS: Insulin Lispro 100 UNIT/ML INSULN.PEN SQ (11:04)
[2019-01-11 11:21] LABS: Bedside Glucose 158 mg/dL (70-110)
--- NOTE | 2019-01-11 13:15 | PN_ITS ---
Patient Problems: Active and Suspected Problems (Last Reviewed 01/09/19 @ 01:29 by Kenn Bansal MD) Intractable nausea and vomiting (Acute) Subjective: Patient is a 63-year-old lady with history of recurrent UTIs who presented with intractable nausea vomiting. She was found to have abnormal urinalysis consistent with UTI admitted to regular nursing floor for further management Objective: GENERAL: cooperative HEENT: Atraumatic; moist oral mucosa EYES; Anicteric, Normal Conjunctiva NECK; supple, normal thyroid, RESPIRATORY: Diminished to auscultation bilaterally, CARDIOVASCULAR: Regular S1 S2, no audible murmurs GI: soft, non-tender, normoactive bowel sounds, : No Renal angle tenderness; EXTREMITIES: No edema, no clubbing, no cyanosis. MUSCULOSKELETAL: No Joint Tenderness NEURO: Awake; no lateralizing signs. SKIN: No Rash PSYCH; Normal affect Vitals/I&O's: Vital Signs Temp Pulse Resp BP Pulse Ox 98.0 F 69 16 128/79 H 96 01/11/19 07:45 01/11/19 07:45 01/11/19 07:45 01/11/19 07:45 01/11/19 07:45 Oxygen Delivery Method Room Air Weight: 101.8 kg Body Mass Index (BMI) 36.2 Intake and Output for Last 24 Hours 01/09/19 01/10/19 01/11/19 23:59 23:59 23:59 Intake Total 960.4 / 960.4 1655 / 1655 230 / 230 Output Total 200 / 200 400 / 400 Balance 760.4 / 760.4 1255 / 1255 230 / 230 Microbiology Past 72 Hours 01/08/19 20:28 Urine, Clean Catch Urine Culture - Final Presumptive E. coli 01/09/19 00:30 Blood Culture (Wb) - Right Hand Blood Culture - Preliminary No growth in 48 hours. 01/08/19 20:20 Blood Culture (Wb) - Anticubital Left Blood Culture - Preliminary No growth in 48 hours. Laboratory Results 01/10/19 17:12: POC Glucose 155 H 01/10/19 21:25: POC Glucose 110 01/11/19 06:45: POC Glucose 118 H 01/11/19 11:01: POC Glucose 158 H Current Medications Albuterol Sulfate (Ventolin Aerosols) 2.5 mg INHALATION Q2H PRN PRN PRN Reason: SOB &/OR WHEEZING Alprazolam (Xanax) 0.5 mg PO BID PRN PRN PRN Reason: ANXIETY/AGITATION Last Admin: 01/10/19 23:46 Dose: 0.5 mg Amitriptyline HCl (Elavil) 25 mg PO QHS [facility] Last Admin: 01/10/19 21:24 Dose: 25 mg Dextrose (D50w Syringe) 0 gm IV X1 PRN; Protocol PRN Reason: Hypoglycemia Enoxaparin Sodium (Lovenox) 40 mg SC DAILY@1000 RAUL Last Admin: 01/11/19 09:34 Dose: 40 mg Glucagon () 1 mg IM .X1 PRN PRN Reason: Hypoglycemia Meropenem 1 gm/ Sodium (Chloride) 120 mls @ 33 mls/hr IV Q8 [facility] Last Admin: 01/11/19 05:42 Dose: 33 mls/hr Insulin Glargine (Lantus (Bk)) 47 units SC BREAKFAST [facility] Last Admin: 01/11/19 07:42 Dose: 47 units Insulin Human Lispro (Humalog Kwikpen (Bk)) 0 unit SQ ACHS [facility]; Protocol Last Admin: 01/11/19 11:04 Dose: 2 units Metoclopramide HCl (Reglan) 10 mg IV Q8H PRN PRN Reason: NAUSEA Last Admin: 01/11/19 05:31 Dose: 10 mg Nicotine (Nicoderm Cq (Pbkc)) 14 mg TRANSDERM. DAILY [facility] Last Admin: 01/11/19 09:34 Dose: 14 mg Nutritional Formula (Lactose Free) (Glucerna Shake) 120 ml PO 4X/DAY [facility] Last Admin: 01/11/19 09:33 Dose: Not Given Ondansetron HCl (Zofran) 4 mg IV Q8H PRN PRN PRN Reason: NAUSEA/VOMITING Last Admin: 01/10/19 09:05 Dose: 4 mg Oxycodone HCl (Oxyir) 5 - 10 mg PO Q4H PRN PRN PRN Reason: MOD-SEVERE PAIN (4-10/10) Last Admin: 01/11/19 10:27 Dose: 5 mg Pantoprazole Sodium (Protonix) 40 mg PO DAILY [facility] Last Admin: 01/11/19 09:35 Dose: 40 mg Polyethylene Glycol (Miralax) 17 gm PO DAILY [facility] Last Admin: 01/11/19 09:34 Dose: Not Given Pregabalin (Lyrica) 150 mg PO TID [facility] Last Admin: 01/11/19 05:31 Dose: 150 mg Promethazine HCl (Phenergan) 6.25 mg IV Q6H PRN PRN PRN Reason: NAUSEA/VOMITING Senna/Docusate Sodium (Senokot-S, Julieta-Colace) 1 tablet PO BID PRN PRN PRN Reason: CONSTIPATION Last Admin: 01/10/19 14:27 Dose: 1 tablet Sodium Chloride () 5 - 15 ml IV UD PRN PRN Reason: SALINE FLUSH Last Admin: 01/11/19 05:32 Dose: 10 ml Medical Necessity - Tobacco Use Smoking Status: Current every day smoker Tobacco Use: Cigarettes Assessment/Plan All Active Problems (Last Reviewed 01/09/19 @ 01:29 by Kenn Bansal MD) Intractable nausea and vomiting (Acute) Patient is a 63-year-old lady with history of recurrent UTIs who presented with intractable nausea vomiting. She was found to have abnormal urinalysis consistent with UTI admitted to regular nursing floor for further management Acute cystitis with ESBL coli. Patient has been managed on meropenem. Given the recurrent nature of her infections consult was placed to infectious disease 2. Intractable nausea vomiting with high suspicion for gastroparesis patient will has been placed on Reglan with some improvement 3. Diabetes mellitus type 2 with complications including suspected gastroparesis did continue with patient's home regimen in addition to Accu-Cheks before meals and at bedtime with sliding scale coverage 4. DVT prophylaxis SC Lovenox 5. Tobacco dependence counseled on cessation, offered nicotine patch for tobacco cravings Microbiology 01/08/19 20:28 Urine, Clean Catch Urine Culture - Final Presumptive E. coli 01/09/19 00:30 Blood Culture (Wb) - Right Hand Blood Culture - Preliminary No growth in 48 hours. 01/08/19 20:20 Blood Culture (Wb) - Anticubital Left Blood Culture - Preliminary No growth in 48 hours. Active Medications Albuterol Sulfate (Ventolin Aerosols) 2.5 mg INHALATION Q2H PRN PRN PRN Reason: SOB &/OR WHEEZING Alprazolam (Xanax) 0.5 mg PO BID PRN PRN PRN Reason: ANXIETY/AGITATION Last Admin: 01/11/19 13:30 Dose: 0.5 mg Amitriptyline HCl (Elavil) 25 mg PO QHS [facility] Last Admin: 01/10/19 21:24 Dose: 25 mg Dextrose (D50w Syringe) 0 gm IV X1 PRN; Protocol PRN Reason: Hypoglycemia Enoxaparin Sodium (Lovenox) 40 mg SC DAILY@1000 RAUL Last Admin: 01/11/19 09:34 Dose: 40 mg Glucagon () 1 mg IM .X1 PRN PRN Reason: Hypoglycemia Meropenem 1 gm/ Sodium (Chloride) 120 mls @ 33 mls/hr IV Q8 RAUL Last Admin: 01/11/19 13:36 Dose: 33 mls/hr Insulin Glargine (Lantus (Bkc)) 47 units SC BREAKFAST [facility] Last Admin: 01/11/19 07:42 Dose: 47 units Insulin Human Lispro (Humalog Kwikpen (Bkc)) 0 unit SQ ACHS RAUL; Protocol Last Admin: 01/11/19 11:04 Dose: 2 units Metoclopramide HCl (Reglan) 10 mg IV Q8H PRN PRN Reason: NAUSEA Last Admin: 01/11/19 05:31 Dose: 10 mg Nicotine (Nicoderm Cq (Pbkc)) 14 mg TRANSDERM. DAILY [facility] Last Admin: 01/11/19 09:34 Dose: 14 mg Nutritional Formula (Lactose Free) (Glucerna Shake) 120 ml PO 4X/DAY [facility] Last Admin: 01/11/19 13:32 Dose: Not Given Ondansetron HCl (Zofran) 4 mg IV Q8H PRN PRN PRN Reason: NAUSEA/VOMITING Last Admin: 01/11/19 13:30 Dose: 4 mg Oxycodone HCl (Oxyir) 5 - 10 mg PO Q4H PRN PRN PRN Reason: MOD-SEVERE PAIN (4-10/10) Last Admin: 01/11/19 10:27 Dose: 5 mg Pantoprazole Sodium (Protonix) 40 mg PO DAILY [facility] Last Admin: 01/11/19 09:35 Dose: 40 mg Polyethylene Glycol (Miralax) 17 gm PO DAILY [facility] Last Admin: 01/11/19 09:34 Dose: Not Given Pregabalin (Lyrica) 150 mg PO TID [facility] Last Admin: 01/11/19 13:37 Dose: 150 mg Promethazine HCl (Phenergan) 6.25 mg IV Q6H PRN PRN PRN Reason: NAUSEA/VOMITING Senna/Docusate Sodium (Senokot-S, Julieta-Colace) 1 tablet PO BID PRN PRN PRN Reason: CONSTIPATION Last Admin: 01/10/19 14:27 Dose: 1 tablet Sodium Chloride () 5 - 15 ml IV UD PRN PRN Reason: SALINE FLUSH Last Admin: 01/11/19 05:32 Dose: 10 ml Clinical Impression(s) from Imaging Studies Abdomen/Pelvis CT 01/08/19 17:42 IMPRESSION: Status post cholecystectomy, with pneumobilia noted. Fatty liver and hepatomegaly. Electronically Signed: Johnathan Kinney, at 19:16 EDT Tel , Service support , KUB X-Ray 01/09/19 14:00 IMPRESSION: No bowel obstruction. Moderate stool throughout the colon. Electronically Signed: Johnathan Kinney, at 15:12 EDT Tel , Service support , Code Visit Inpatient E&M: 72006 Subs Hosp L2
[2019-01-11] MEDS: Ondansetron 4 MG/2 ML Vial IV (13:30)
[2019-01-11] MEDS: ALPRAZolam 0.5 MG Tablet PO (13:30)
[2019-01-11] MEDS: Polyethylene Glycol 3350 17 GM PACKET PO (16:54)
[2019-01-11 17:30] LABS: Bedside Glucose 88 mg/dL (70-110)
--- NOTE | 2019-01-11 20:48 | PCM.HP.ID ---
Problem List (1) Intractable nausea and vomiting Status: Acute Reason for Consult: uti Consulted by: Dr. Alicea History of Present Illness: The patient is a 63 year old F with DM and fibromyalgia who presented with 1-2 weeks of nausea, voniting, abd pain, headache, dysuria. Gets recurrent uti, last course was with cipro. Admitted, started on aztreonam, changed to meropenem once ucx identified as ESBL. Overall feeling somewhat better. Full ROS performed and neg except as noted above. - Medical History Past Medical History (Chronic Problems): Chronic Problems (Last Reviewed 01/09/19 @ 01:29 by Kenn Bansal MD) Type 2 diabetes mellitus without complications (Chronic) Wore sari sensor for two weeks . No low BG and no night time hypoglycemia. will increase her long acting insulin as well as prandin. She is given written instructions on how to make incremental increases every 3 -5 days but no increases if she has any BG below 150. Tobacco abuse (Chronic) COPD (chronic obstructive pulmonary disease) (Chronic) Fibromyalgia (Chronic) Chronic back pain (Chronic) Allergies/Adverse Reactions: Allergies Penicillins Allergy (Verified 07/04/18 19:35) Hives Sulfa (Sulfonamide Antibiotics) Allergy (Verified 07/04/18 19:35) Hives hydrocodone bitartrate [From Vicodin] Adverse Reaction (Verified 07/04/18 19:35) Nausea Home Medications: Ambulatory Orders Medication Instructions Recorded Albuterol Inhaler [Ventolin Hfa] 1 - 2 puff INHALATION Q4H PRN PRN 10/22/16 #1 inhaler amitriptyline 25 mg tablet 25 mg PO QHS 11/18/17 omeprazole 20 mg capsule,delayed 40 mg PO DAILY cap 11/18/17 release Insulin Glargine,Hum.rec.anlog 45 unit SC DAILY 04/27/18 [Yovani Caballero] Pregabalin [Lyrica] 150 mg PO TID 01/08/19 - Social History Tobacco Use: cigarettes Vital Signs Temp Pulse Resp BP Pulse Ox 98.0 F 69 16 128/79 H 96 01/11/19 07:45 01/11/19 07:45 01/11/19 07:45 01/11/19 07:45 01/11/19 07:45 Oxygen Delivery Method Room Air Weight: 101.8 kg Body Mass Index (BMI) 36.2 Microbiology Past 72 Hours 01/08/19 20:28 Urine Culture - Final Urine, Clean Catch Presumptive E. coli 01/09/19 00:30 Blood Culture - Preliminary Blood Culture (Wb) - Right Hand No growth in 48 hours. 01/08/19 20:20 Blood Culture - Preliminary Blood Culture (Wb) - Anticubital Left No growth in 48 hours. - Other Studies Radiology: [] reviewed Other Studies: [] Route of nutrition/ use of supplements: [] Nutritional Intake: [] IV Site: [] Pathak Catheter: [] - Physical Exam General: Alert, Oriented x3, Cooperative, No apparent distress HEENT: Atraumatic, PERRLA, EOMI Neck: Supple, No Nodes Lungs: Clear to auscultation, Normal air movement Cardiovascular: Regular rate, Regular Rhythm Abdomen: Soft, Non Tender, Non-Distended Extremities: No edema Skin: No rashes IV Site: Peripheral, without redness Musculoskeletal: No Tenderness to Palpation of Joints or Extremities Neurological: Cranial nerves II-XII grossly intact - Assessment/Plan Antibiotics: [] Assessment/Plan: [] Active and Suspected Problems (Last Reviewed 01/09/19 @ 01:29 by Kenn Bansal MD) Intractable nausea and vomiting (Acute) ESBL ecoli complicated uti - slowly improving, cont meropenem. May be candidate for fosfomycin at discharge. Will follow, thank you.
[2019-01-11 21:25] VITALS: BP 134/87; PULSE 76; RESP 18; TEMP 37; O2SAT 96
[2019-01-11] MEDS: Amitriptyline 25 MG Tablet PO (21:29)
[2019-01-11 21:30] VITALS: PULSE 74; RESP 18; O2SAT 96
[2019-01-11] MEDS: proMETHazine 25 MG/ML Syringe 6.25 MG IV (21:44)
[2019-01-11 21:46] LABS: Bedside Glucose 139 mg/dL (70-110)
[2019-01-12 03:23] VITALS: BP 139/68; PULSE 73; RESP 18; TEMP 36.5; O2SAT 94
[2019-01-12] MEDS: oxyCODONE 5 MG Tablet PO (03:26)
[2019-01-12] MEDS: Metoclopramide 10 MG/2 ML Vial IV (03:27)
[2019-01-12 03:30] VITALS: RESP 18; O2SAT 94
[2019-01-12] MEDS: ALPRAZolam 0.5 MG Tablet PO (03:35)
[2019-01-12] MEDS: Pregabalin 75 MG Capsule 150 MG PO (06:40)
[2019-01-12] MEDS: Insulin Lispro 100 UNIT/ML INSULN.PEN SQ ×2 (06:43→11:37)
[2019-01-12 06:50] LABS: Bedside Glucose 158 mg/dL (70-110)
[2019-01-12 06:50] LABS: Absolute Lymphocyte Count 3.29 X10^3/ul (0.83-4.51); Absolute Neutrophil Count 4.8 X10^3/uL (2.0-7.7); Basophil# 0.02 X10^3/uL; Basophil% 0.2 % (0-1); Eosinophil# 0.15 X10^3/uL; Eosinophils% 1.7 % (0-5); Hematocrit 42.1 % (37-47); Hemoglobin 13.9 g/dl (12.0-15.0); Lymphocyte # 3.29 X10^3/ul (4.0); Lymphocyte % 36.5 % (19-41); Mean Corpuscular Hgb 29.3 pg (27.0-32.0); Mean Corpuscular Volume 88.6 fL (81-99); Mean Platelet Vol. 9.5 fl (6.2-12.0); Monocyte# 0.76 X10^3/uL; Monocyte% 8.4 % (0-10); Neutrophil # 4.78 X10^3/uL (2.7-7.7); Platelet Count 260 K/mm3 (150-450); RBC Distribution Width CV 13.9 % (11.6-14.6); RBC Distribution Width SD 44.2 fl (35.1-43.9); Red Blood Count 4.75 M/mm3 (4.2-5.4)
[2019-01-12 06:53] LABS: POSITIVE COUNT NO; POSITIVE DIFFERENTIAL NO; POSITIVE MORPHOLOGY NO
[2019-01-12 07:00] LABS: Anion Gap 5 (5-15); BUN 3 mg/dL (7-18); Calcium,Total 7.9 mg/dL (8.5-10.1); Chloride 109 mmol/L (98-107); EST Glomerular Filtration Rate 134 mL/min (>60); Est Glom Filt Rate - Afr Amer 162 mL/min (>60); Estimated Creatinine Clearance 110.61 ml/min; Glucose 157 mg/dL (74-106); Magnesium 1.9 mg/dL (1.6-2.6); Potassium 3.4 mmol/L (3.5-5.1); Sodium Level 139 mmol/L (136-145)
[2019-01-12 08:00] VITALS: BP 103/62; PULSE 74; RESP 16; TEMP 36.9; O2SAT 95
--- NOTE | 2019-01-12 08:16 | DS.PCM_ITS ---
Discharge Date and Diagnosis - Problem List Patient Problems: Active and Suspected Problems (Last Reviewed 01/09/19 @ 01:29 by Kenn Bansal MD) Intractable nausea and vomiting (Acute) Date of Admission: 01/08/19 Date of Discharge: 01/12/19 - Primary Discharge Diagnosis Active and Suspected Problems (Last Reviewed 01/09/19 @ 01:29 by Kenn Bansal MD) Intractable nausea and vomiting (Acute) - Secondary Discharge Diagnosis Chronic Problems (Last Reviewed 01/09/19 @ 01:29 by Kenn Bansal MD) Type 2 diabetes mellitus without complications (Chronic) Wore sari sensor for two weeks . No low BG and no night time hypoglycemia. will increase her long acting insulin as well as prandin. She is given written instructions on how to make incremental increases every 3 -5 days but no increases if she has any BG below 150. Tobacco abuse (Chronic) COPD (chronic obstructive pulmonary disease) (Chronic) Fibromyalgia (Chronic) Chronic back pain (Chronic) Hospital Course and Treatment Imaging Results: Clinical Impression(s) from Imaging Studies Abdomen/Pelvis CT 01/08/19 17:42 IMPRESSION: Status post cholecystectomy, with pneumobilia noted. Fatty liver and hepatomegaly. Electronically Signed: Johnathan Kinney, at 19:16 EDT Tel , Service support , KUB X-Ray 01/09/19 14:00 IMPRESSION: No bowel obstruction. Moderate stool throughout the colon. Electronically Signed: Johnathan Kinney, at 15:12 EDT Tel , Service support , Microbiology 01/08/19 20:28 Urine, Clean Catch Urine Culture - Final Presumptive E. coli 01/09/19 00:30 Blood Culture (Wb) - Right Hand Blood Culture - Preliminary No growth in 48 hours. 01/08/19 20:20 Blood Culture (Wb) - Anticubital Left Blood Culture - Preliminary No growth in 48 hours. Operations: - - ORIF of the left fibular malleolus, ORIF of the left medial malleolus Summary of Care Provided: Patient is a 63-year-old lady with history of recurrent UTIs who presented with intractable nausea vomiting. She was found to have abnormal urinalysis consistent with UTI admitted to regular nursing floor for further management 1. Acute cystitis with ESBL coli. Patient has been managed on meropenem. Given the recurrent nature of her infections consult was placed to infectious disease the patient was seen in consultation by Dr. Wade his notes and recommendations reviewed. Patient did receive fosfomycin 3 g x 1 prior to her discharge. 2. Intractable nausea vomiting with high suspicion for gastroparesis patient will has been placed on Reglan with some improvement prescription was written for Compazine on discharge patient was told to avoid Reglan in view of significant side effect unless come present does not control her symptoms 3. Diabetes mellitus type 2 with complications including suspected gastroparesis did continue with patient's home regimen in addition to Accu-Cheks before meals and at bedtime with sliding scale coverage 4. Nonalcoholic fatty liver disease per CAT scan findings probably related to patient underlying diabetes instructed to follow-up with PCP for subsequent care 5. Tobacco dependence counseled on cessation, offered nicotine patch for tobacco cravings 6. DVT prophylaxis SC Lovenox Patient Problems: Active and Suspected Problems (Last Reviewed 01/09/19 @ 01:29 by Kenn Bansal MD) Intractable nausea and vomiting (Acute) Objective: GENERAL: cooperative HEENT: Atraumatic; moist oral mucosa EYES; Anicteric, Normal Conjunctiva NECK; supple, normal thyroid, RESPIRATORY: Diminished to auscultation bilaterally, CARDIOVASCULAR: Regular S1 S2, no audible murmurs GI: soft, non-tender, normoactive bowel sounds, : No Renal angle tenderness; NEURO: Awake; no lateralizing signs. SKIN: No Rash PSYCH; Normal affect - Physical Exam Vital Signs Temp Pulse Resp BP Pulse Ox 98.5 F 74 16 103/62 95 01/12/19 08:00 01/12/19 08:00 01/12/19 08:00 01/12/19 08:00 01/12/19 08:00 Oxygen Delivery Method Room Air Weight: 101.8 kg Body Mass Index (BMI) 36.2 Intake and Output for Last 24 Hours 01/10/19 01/11/19 01/12/19 23:59 23:59 23:59 Intake Total 1655 / 1655 780 / 780 1888 / 1888 Output Total 400 / 400 Balance 1255 / 1255 780 / 780 1888 / 1888 Microbiology Past 72 Hours 01/08/19 20:28 Urine Culture - Final Urine, Clean Catch Presumptive E. coli 01/09/19 00:30 Blood Culture - Preliminary Blood Culture (Wb) - Right Hand No growth in 48 hours. 01/08/19 20:20 Blood Culture - Preliminary Blood Culture (Wb) - Anticubital Left No growth in 48 hours. Laboratory Tests Past 24 Hrs 01/12/19 01/12/19 06:24 06:24 WBC 9.0 RBC 4.75 Hgb 13.9 Hct 42.1 MCV 88.6 MCH 29.3 MCHC 33.0 RDW 13.9 RDW Differential 44.2 H Plt Count 260 MPV 9.5 Immature Gran % (Auto) 0.200 Neut % (Auto) 53.0 Lymph % (Auto) 36.5 Hancock % (Auto) 8.4 Eos % (Auto) 1.7 Baso % (Auto) 0.2 Absolute Neuts (auto) 4.8 Absolute Lymphs (auto) 3.29 Total Counted Not Reportable Sodium 139 Potassium 3.4 L Chloride 109 H Carbon Dioxide 25.0 Anion Gap 5 BUN 3 L Creatinine 0.50 L Estim Creat Clear Calc 110.61 Est GFR (MDRD) Af Amer 162 Est GFR (MDRD) Non-Af 134 BUN/Creatinine Ratio 6.0 L Glucose 157 H Calcium 7.9 L Magnesium 1.9 POC Glucose 01/12/19 01/11/19 01/11/19 06:41 21:29 16:45 POC Glucose 158 H 139 H 88 01/11/19 11:01 POC Glucose 158 H Discharge Diet: 1800 Calorie Control Diet Discharge Activity: Return to Normal Activity Home Medications: Medications to take at Discharge Albuterol Inhaler [Ventolin Hfa] 1 - 2 puff INHALATION Q4H PRN PRN #1 inhaler 10/22/16 amitriptyline 25 mg tablet 25 mg PO QHS 11/18/17 omeprazole 20 mg capsule,delayed release 40 mg PO DAILY cap 11/18/17 Insulin Glargine,Hum.rec.anlog [Toujeo Solostar] 45 unit SC DAILY 04/27/18 Pregabalin [Lyrica] 150 mg PO TID 01/08/19 proCHLORPERazine tablet [Compazine tablet] 5 mg PO TID PRN PRN #20 tablet 01/12/19 Following Prescrptions Were Given to Patient: proCHLORPERazine tablet [Compazine tablet] 5 mg PO TID PRN PRN #20 tablet PRN Reason: Nausea/Vomiting Primary Care Physician: Ricci Broussard MD [Primary Care Provider] - Please follow up with your Primary Care Physician in: in 5-7 days Disposition: Home Minutes spent on discharge:: 35 Patient Condition:: Stable Medical Necessity - Tobacco Use Smoking Status: Current every day smoker Tobacco Use: Cigarettes Meaningful Use Info Meaningful Use Diagnoses (Choose all that apply): None applicable Code Visit Inpatient E&M: 29667 Disch Hosp
--- NOTE | 2019-01-12 08:17 | DCINST_ITS ---
- Discharge Diagnoses Current Active Problems: Current Active and Chronic Problems (Last Reviewed 01/09/19 @ 01:29 by Kenn Bansal MD) Intractable nausea and vomiting (Acute) You will use the following diet at home:: Calorie/Carbohydrate Controlled (specify 1200, 1400, etc) - 1800 Your food should be the consistency of: Regular Discharge Activity: Return to Normal Activity Allergies/Adverse Reactions: Allergies Penicillins Allergy (Verified 07/04/18 19:35) Hives Sulfa (Sulfonamide Antibiotics) Allergy (Verified 07/04/18 19:35) Hives hydrocodone bitartrate [From Vicodin] Adverse Reaction (Verified 07/04/18 19:35) Nausea Medications to take at Discharge Albuterol Inhaler [Ventolin Hfa] 1 - 2 puff INHALATION Q4H PRN PRN #1 inhaler 10/22/16 amitriptyline 25 mg tablet 25 mg PO QHS 11/18/17 omeprazole 20 mg capsule,delayed release 40 mg PO DAILY cap 11/18/17 Insulin Glargine,Hum.rec.anlog [Toujennifer Solostchriss] 45 unit SC DAILY 04/27/18 Pregabalin [Lyrica] 150 mg PO TID 01/08/19 proCHLORPERazine tablet [Compazine tablet] 5 mg PO TID PRN PRN #20 tablet 01/12/19 The following prescriptions were given: proCHLORPERazine tablet [Compazine tablet] 5 mg PO TID PRN PRN #20 tablet PRN Reason: Nausea/Vomiting Primary Care Physician: Ricci Broussard MD [Primary Care Provider] - Please follow up with your Primary Care Physician in: in 5-7 days Test Results: Test results from this visit will be discussed in further detail at your follow- up appointment, if applicable. Proposed Discharge Date: 01/12/19
[2019-01-12] MEDS: FOSFOMYCIN TROMETHAMINE 3 GM PACKET PO (11:07)
[2019-01-12] MEDS: Glucerna Shake 120 ML LIQUID PO (11:09)
[2019-01-12] MEDS: Pantoprazole Sodium 40 MG Tablet PO (11:10)
[2019-01-12 11:28] VITALS: BP 129/79; PULSE 81; RESP 18; TEMP 36.7; O2SAT 94
[2019-01-12 12:15] LABS: Bedside Glucose 207 mg/dL (70-110)
--- NOTE | 2019-01-13 16:09 | CASEMGMT ---
Addendum entered by Radha Cuadra 01/14/19 14:13: Able to reach pt via phone at this time. Pt states she's been doing okay although has been tired a lot. States, I'm kind of up and down. Pt states she has an appt with Dr Broussard tomorrow, that she has no questions about the discharge instructions, and she was able to get the Compazine. Pt thanked NITIN REA for calling her. NITIN REA thanked pt for choosing [facility]. Olimpia LEVINE RN, CM Original Note: NITIN REA Discharge Follow-Up Phone Call. Lace: 14 Strata: 4 Discharge Date: 01/12/19 Adm Dx: Sepsis secondary to UTI. Attempted discharge follow-up phone call. No answer. Phone kept ringing. Unable to leave message. Olimpia LEVINE RN, CM
== END 2019-01-12 11:55 | disposition home or self-care (01) | DRG 74 ==
LOC: ED 17:56 → MS3 22:35
PROVIDERS: Hospitalist; Physician Assistant; Admitting Provider Hospitalist; Emergency Provider Emergency Medicine; Family Provider Family Medicine; PCP Family Medicine; Referring Provider Hospitalist; Visit Provider Internal Medicine
DX: E11.43 Type 2 diabetes mellitus with diabetic autonomic (poly)neuropathy (principal); N30.00 Acute cystitis without hematuria; M79.7 Fibromyalgia; E11.65 Type 2 diabetes mellitus with hyperglycemia; K31.84 Gastroparesis; B96.20 Unspecified Escherichia coli [E. coli] as the cause of diseases classified elsewhere; K76.0 Fatty (change of) liver, not elsewhere classified; F17.210 Nicotine dependence, cigarettes, uncomplicated; Z87.440 Personal history of urinary (tract) infections; Z79.4 Long term (current) use of insulin
CPT/HCPCS: 36415; 74018; 74177; 80048; 80053; 81001; 82962; 83605; 83690; 83735; 85025; 87040; 87086; 87088; 87186; 97110; 97161; 97165; 97530; 97802; 99285; 99406; J2185; J7030; Q9967; A4216; J2405

== ENCOUNTER 2019-04-27 13:41 | Emergency (ER) | payer MEDICARE, MEDICAID, SELFPAY ==
[2019-04-27 13:42] VITALS: BP 156/102; PULSE 101; RESP 18; TEMP 36.4; O2SAT 96; BMI 34.4
[2019-04-27 13:45] VITALS: BP 124/64; PULSE 82; RESP 19; TEMP 37.1; O2SAT 99
--- NOTE | 2019-04-27 14:03 | ED.VISSUMM ---
- ER Visit Summary Date of Service: 04/27/19 Chief Complaint: Nausea, elevated blood sugars and not feeling well. History of Present Illness: The patient is a 64 F 3 of diabetes, fibromyalgia, anxiety, urinary incontinence, COPD. Multiple prior abdominal surgeries. Patient states she just has not felt well for about a week. Her blood sugars have been elevated. She is had nausea but no vomiting. No diarrhea or fever. Said she had a similar episode of this several months ago when she had a urinary tract infection. She has been urinating frequently. Describes some discomfort. No gross blood. Physical Examination: Older female. Vital signs are stable. Afebrile. She does not look septic or toxic. Currently she is in no distress. HEENT exam dry mucous memories. Neck nontender. Lungs clear to auscultation bilaterally. Heart regular rhythm no murmur. Abdomen soft. Mild tender primarily suprapubic. Obese. No peritoneal signs. No pulsatile mass. No localizing right upper or right lower quadrant tenderness. She has had prior appendectomy and cholecystectomy. There is no signs of obstruction. Moving all 4 extremities. Calves are nontender without edema or cords. Back is nontender. Skin there is no rash. Neurologically she is awake and alert. Answering questions and following commands. Normal upper and lower extremity motor strength. No focal motor deficits. Test Results: She is white count 13.1. H&H of 15-45 no bands. Chemistries unremarkable normal BUN and creatinine. Normal gap. Glucose is elevated 322. Liver enzymes and lipase are normal. UA normal no signs of infection. Due to her abdominal pain and elevated white count a CT of the abdomen pelvis was obtained with IV contrast which showed no acute abnormality. Read by the radiologist and reviewed by me. She had fatty liver and a stable renal cyst but no acute abnormality. Emergency Department Course and Treatment: Diabetic female not feeling well. Clinically looks dehydrated. Treated with IV fluids. Abdominal work-up will be performed including urinalysis. Multiple repeat exams patient is doing well. Her abdomen is benign. She is comfortable being discharged to home with outpatient follow-up. Treatment Plan: Follow-up with primary care physician. Return if feeling worse. Disposition: dc Impression: Acute suprapubic abdominal pain of uncertain etiology History of diabetes This note was generated with Open English dictation software. It may contain incorrect words, spelling, and punctuation that were not noted in review of the chart prior to signing ED Disposition - Plan for ED Patient: Referrals: Ricci Broussard MD [Primary Care Provider] -
[2019-04-27] MEDS: 0.9% Normal Saline 1,000 ML 1000 ML IV (14:20)
[2019-04-27] MEDS: Morphine 4 MG/ML Syringe IV (14:21)
[2019-04-27] MEDS: Ondansetron 4 MG/2 ML Vial IV (14:21)
[2019-04-27 14:37] LABS: Mucous, Urine 0 SEEN /hpf (<or=2+); Red Blood Cells-Urine 0 SEEN /hpf (0-5); Squamous Epithelial Cells - UA 0 SEEN /hpf (5-10)
[2019-04-27 14:38] LABS: Absolute Lymphocyte Count 2.61 X10^3/uL (0.83-4.51); Absolute Neutrophil Count 9.6 X10^3/uL (2.0-7.7); Basophil# 0.06 X10^3/uL; Basophil% 0.5 % (0-1); Eosinophil# 0.07 X10^3/uL; Eosinophils% 0.5 % (0-5); Hematocrit 45.5 % (37-47); Hemoglobin 15.3 g/dL (12.0-15.0); Lymphocyte # 2.61 X10^3/ul (4.0); Lymphocyte % 19.9 % (19-41); Mean Corp Hgb Conc 33.6 g/dL (32-36); Mean Corpuscular Hgb 30.8 pg (27.0-32.0); Mean Corpuscular Volume 91.5 fL (81-99); Mean Platelet Vol. 9.5 fl (6.2-12.0); Monocyte# 0.66 X10^3/uL; NRBC Flagged by Analyzer 0 % (0-5); Neutrophil # 9.63 X10^3/uL (2.7-7.7); Neutrophil % 73.6 % (47-70); Platelet Count 314 K/mm3 (150-450); RBC Distribution Width CV 13.4 % (11.6-14.6); RBC Distribution Width SD 45.4 fl (35.1-43.9); Red Blood Count 4.97 M/mm3 (4.2-5.4); White Blood Count 13.1 K/mm3 (4.4-11.0)
[2019-04-27 14:45] LABS: Color, Urine Yellow (Yellow); Glucose, Dipstick 1000 mg/dl (Normal); Ketone-Dipstick 5 mg/dl (Negative); Leukocyte Esterase-Dipstick 25 /ul (Negative); Nitrite-Dipstick Negative (Negative); Occult Blood-Urine 25 /ul (Negative); Protein-Dipstick 15 mg/dl (Negative); Specific Gravity, Urine 1.015 (1.002-1.030); Urine Bilirubin Dipstick Negative (Negative); Urine Clarity Clear (Clear); Urine Urobilinogen Normal (Normal)
[2019-04-27 14:51] LABS: Bacteria RARE /hpf (None Seen); White Blood Cells 0-5 SEEN /hpf (0-5)
[2019-04-27 14:53] LABS: AST(SGOT) 14 U/L (15-37); Alanine Aminotransfer ALT/SGPT 27 U/L (13-56); Albumin, Serum 3.5 g/dL (3.2-5.0); Alkaline Phosphatase 87 U/L (45-117); Anion Gap 7 (5-15); BUN 7 mg/dL (7-18); BUN/Creat Ratio 9.5 RATIO (10-20); Calcium,Total 8.9 mg/dL (8.5-10.1); Chloride 110 mmol/L (98-107); Creatinine, Serum 0.74 mg/dL (0.55-1.02); EST Glomerular Filtration Rate 85 mL/min (>60); Est Glom Filt Rate - Afr Amer 103 mL/min (>60); Estimated Creatinine Clearance 76.65 ml/min; Globulin 3.9 g/dL (2.2-4.2); Glucose 322 mg/dL (74-106); Lipase 97 U/L (73-393); Potassium 3.6 mmol/L (3.5-5.1); Protein, Total 7.4 g/dL (6.4-8.2); Sodium Level 144 mmol/L (136-145)
[2019-04-27 14:56] VITALS: TEMP 37
--- NOTE | 2019-04-27 15:01 | CT_ITS ---
STUDY: CT ABDOMEN AND PELVIS WITH CONTRAST REASON FOR EXAM: Female, 64 years old. Abdominal pain. RADIATION DOSAGE (If Supplied By Facility): CTDIvol = ( 14.69 ) mGy, DLP = ( 1074.25 ) mGycm TECHNIQUE: Transaxial images were obtained from the dome of the diaphragm to the symphysis pubis without oral contrast. 100 IV Isovue 300 was administered. Sagittal and coronal images were reconstructed. Individualized dose optimization techniques were used for this CT. COMPARISON: Comparison is made with prior study dated January 08, 2019. FINDINGS: Questionable 3 cm Bard 2.1 cm nodule in the inferior lateral aspect of the right breast. Stable increased markings at the lung bases suggestive of scarring. Coronary artery calcification. There is decreased attenuation of the liver consistent with steatosis. Hepatomegaly. The patient is status post cholecystectomy. Normal spleen. There is diffuse atrophy of the pancreas. Normal bilateral adrenal glands. Normal right kidney. Stable 2.8 cm cyst in the lateral aspect of the left kidney. Normal visualized stomach. Normal small intestine. Normal colon. The patient is status post appendectomy. There is scattered atherosclerotic calcification of the abdominal aorta, without a demonstrated aneurysm. Normal inferior vena cava. There is borderline retroperitoneal lymphadenopathy with enlarged nodes no greater than 10mm in the short axis diameter. Normal urinary bladder. There is absence of the uterus consistent with a prior hysterectomy. Normal abdominal wall. There are diffuse degenerative changes of the visualized lumbar spine. CT/Abdomen/Pelvis W IV Cont ONLY IMPRESSION: Mild hepatomegaly and diffuse fatty infiltration of the liver. Stable left renal cyst. Electronically Signed: Jose Angel Tim, at 15:44 EDT , Service support ,
[2019-04-27] MEDS: proMETHazine 25 MG/ML Syringe 12.5 MG IV (15:42)
--- NOTE | 2019-04-27 16:06 | ED.DEP ---
ED Disposition - Plan for ED Patient: Disposition: Home or Assisted Living Instructions: ABDOMINAL PAIN, Unknown Cause, (Female) Prescriptions: Metoclopramide [Reglan] 10 mg PO 4X/DAY #20 tab Prescription Printed Referrals: Ricci Broussard MD [Primary Care Provider] - 3-5 Days Additional Instructions: Follow-up if not improving. Return to ER feeling worse. Lab work today was unremarkable. Urine showed no signs of infection. And your CAT scan showed no cause for the pain.
[2019-04-27 16:17] VITALS: PULSE 84; RESP 17; TEMP 37.1; O2SAT 99
== END 2019-04-27 16:19 | disposition home or self-care (01) ==
PROVIDERS: Emergency Provider Emergency Medicine; Family Provider Family Medicine; PCP Family Medicine
DX: R10.30 Lower abdominal pain, unspecified (principal); E86.0 Dehydration; E11.9 Type 2 diabetes mellitus without complications; K76.0 Fatty (change of) liver, not elsewhere classified; N28.1 Cyst of kidney, acquired; M79.7 Fibromyalgia; F41.9 Anxiety disorder, unspecified; J44.9 Chronic obstructive pulmonary disease, unspecified; Z87.440 Personal history of urinary (tract) infections; Z90.49 Acquired absence of other specified parts of digestive tract; Z79.4 Long term (current) use of insulin; Z79.899 Other long term (current) drug therapy; Z72.0 Tobacco use
CPT/HCPCS: 74177; 80048; 80076; 81001; 83690; 85025; 96361; 96374; 96375; 99283; J7030; Q9967; A4216; J2405

== ENCOUNTER 2019-05-13 10:44 | Emergency (ER) | payer MEDICARE, MEDICAID, SELFPAY ==
[2019-05-13 10:45] VITALS: BP 180/93; PULSE 93; RESP 17; TEMP 36.8; O2SAT 96; BMI 34.7
[2019-05-13] MEDS: 0.9% Normal Saline 1,000 ML 1000 ML IV (11:27)
[2019-05-13] MEDS: Ondansetron 4 MG/2 ML Vial IV (11:27)
[2019-05-13 11:37] LABS: Absolute Lymphocyte Count 3.25 X10^3/uL (0.83-4.51); Absolute Neutrophil Count 8.5 X10^3/uL (2.0-7.7); Basophil# 0.06 X10^3/uL; Basophil% 0.5 % (0-1); Eosinophil# 0.07 X10^3/uL; Eosinophils% 0.6 % (0-5); Hematocrit 43.9 % (37-47); Hemoglobin 14.7 g/dL (12.0-15.0); Lymphocyte # 3.25 X10^3/ul (4.0); Lymphocyte % 25.6 % (19-41); Mean Corp Hgb Conc 33.5 g/dL (32-36); Mean Corpuscular Hgb 30.1 pg (27.0-32.0); Monocyte# 0.69 X10^3/uL; Monocyte% 5.4 % (0-10); NRBC Flagged by Analyzer 0 % (0-5); Neutrophil # 8.54 X10^3/uL (2.7-7.7); Neutrophil % 67.3 % (47-70); Platelet Count 367 K/mm3 (150-450); RBC Distribution Width SD 42.8 fl (35.1-43.9); Red Blood Count 4.88 M/mm3 (4.2-5.4); White Blood Count 12.7 K/mm3 (4.4-11.0)
[2019-05-13 11:41] LABS: Mucous, Urine 0 SEEN /hpf (<or=2+); Red Blood Cells-Urine 0 SEEN /hpf (0-5)
[2019-05-13 11:46] LABS: Color, Urine Yellow (Yellow); Glucose, Dipstick 250 mg/dl (Normal); Ketone-Dipstick 15 mg/dl (Negative); Leukocyte Esterase-Dipstick 100 /ul (Negative); Nitrite-Dipstick Negative (Negative); Occult Blood-Urine 25 /ul (Negative); Protein-Dipstick 15 mg/dl (Negative); Urine Bilirubin Dipstick Negative (Negative); Urine Clarity Sl. Cloudy (Clear); Urine Urobilinogen Normal (Normal)
[2019-05-13 11:55] LABS: ALB/GLOB Ratio 0.9 RATIO (0.9-2.4); AST(SGOT) 22 U/L (15-37); Alanine Aminotransfer ALT/SGPT 22 U/L (13-56); Albumin, Serum 3.3 g/dL (3.2-5.0); Alkaline Phosphatase 78 U/L (45-117); Anion Gap 8 (5-15); BUN 7 mg/dL (7-18); BUN/Creat Ratio 10.8 RATIO (10-20); Calcium,Total 8.6 mg/dL (8.5-10.1); Chloride 106 mmol/L (98-107); Creatinine, Serum 0.65 mg/dL (0.55-1.02); EST Glomerular Filtration Rate 99 mL/min (>60); Est Glom Filt Rate - Afr Amer 119 mL/min (>60); Estimated Creatinine Clearance 87.27 ml/min; Globulin 3.6 g/dL (2.2-4.2); Glucose 171 mg/dL (74-106); Lipase 74 U/L (73-393); Potassium 3.8 mmol/L (3.5-5.1); Protein, Total 6.9 g/dL (6.4-8.2); Sodium Level 141 mmol/L (136-145)
[2019-05-13 11:55] LABS: Bacteria RARE /hpf (None Seen); Squamous Epithelial Cells - UA 10-25 SEEN /hpf (5-10); White Blood Cells 0-5 SEEN /hpf (0-5); Yeast-Urine RARE /hpf (None Seen)
--- NOTE | 2019-05-13 12:08 | ED.DCSUM_ITS ---
- ER Visit Summary Date of Service: 05/13/19 Chief Complaint: [Not feeling well, abdominal pain, nausea] History of Present Illness: The patient is a 64 F [presents to the emergency department with 5-day history of not feeling well. Patient states that she is had nausea and intermittent abdominal discomfort in the upper abdomen. She denies any fevers although she is had some chills. Patient states her blood sugars have been elevated and this morning was 413. Patient has had some watery stools yesterday x5 and 2-3 watery stools/loose stools this morning. She complains of a mild headache. She denies any sick contacts. Patient has history of COPD, diabetes, and anxiety. Patient has had prior appendectomy, cholecystectomy, and hysterectomy. Patient has had some urinary frequency. Patient denies any chest pain or shortness of breath.] Physical Examination: [HEENT-PERRLA, EOMI. Cranial nerves II through XII grossly intact. TMs clear. Mucous membranes moist. No adenopathy. Cardiovascular-regular rate and rhythm without murmur or ectopy Lungs-clear to auscultation, chest wall stable without crepitus or subcu emphysema Abdomen-normoactive bowel sounds, soft, nontender, no rebound or rigidity, no peritoneal signs. Extremities-intact ?4, normal range of motion, normal pulses, atraumatic] Test Results: [CBC with differential obtained showed slightly elevated white blood cell count of 12.7, hemoglobin 14.7, hematocrit 44, placed 367. Chemistries unremarkable. Glucose is 171. LFTs were normal. Lipase was normal. Urinalysis was normal.] Emergency Department Course and Treatment: [She was given a liter normal same fluid bolus. Patient was given Zofran 4 mill grams IV followed by Phenergan 12.5 mill grams IV.] Treatment Plan: [At this point I suspect likely a viral gastroenteritis as the cause of her symptoms. Patient will be given a prescription for Phenergan. Patient advised to push fluids and follow-up with primary care physician within next 3 to 5 days. Patient advised to return if fever, worsening abdominal pain, dehydration, or conditions worsen anyway.] Disposition: [Discharged home in stable condition] Impression: [Viral gastroenteritis] This note was generated with [employer] software. It may contain incorrect words, spelling, and punctuation that were not noted in review of the chart ray murphyr to signing ED Disposition - Plan for ED Patient: Referrals: Ricci Broussard MD [Primary Care Provider] -
--- NOTE | 2019-05-13 12:11 | ED.DEP ---
ED Disposition - Plan for ED Patient: Instructions: GASTROENTERITIS, Viral (8y-Adult) Prescriptions: proMETHazine tablet [Phenergan] 25 mg PO Q6H PRN PRN #10 tab PRN Reason: Nausea Prescription Printed Referrals: Ricci Broussard MD [Primary Care Provider] - 3-5 Days
== END 2019-05-13 12:31 | disposition home or self-care (01) ==
LOC: ED 11:22
PROVIDERS: Emergency Provider Emergency Medicine; Family Provider Family Medicine; PCP Family Medicine
DX: A08.4 Viral intestinal infection, unspecified (principal); R51 Headache; J44.9 Chronic obstructive pulmonary disease, unspecified; E11.9 Type 2 diabetes mellitus without complications; F41.9 Anxiety disorder, unspecified; Z90.49 Acquired absence of other specified parts of digestive tract; Z79.4 Long term (current) use of insulin; Z79.899 Other long term (current) drug therapy; Z72.0 Tobacco use
CPT/HCPCS: 80053; 81001; 83690; 85025; 96361; 96374; 96375; 99283; J7030; A4216; J2405

== ENCOUNTER 2019-07-28 09:53 | Emergency (ER) | payer MEDICARE, MEDICAID, SELFPAY ==
[2019-07-28 09:54] VITALS: BP 154/86; PULSE 104; RESP 21; TEMP 37.2; O2SAT 98; BMI 34.9
--- NOTE | 2019-07-28 10:22 | RAD_ITS ---
STUDY: X-RAY CHEST REASON FOR EXAM: Female, 64 years old. Cough, shortness of breath and generalized illness. TECHNIQUE: AP and lateral views of the chest. COMPARISON: Comparison is made with prior study dated December 14, 2018. FINDINGS: EKG lead is seen. The lungs are clear and expanded. There is no demonstrated pleural abnormality. Normal size heart. Normal mediastinum and karsten. Normal visualized pulmonary arteries. There is atherosclerotic tortuosity of the aortic arch and descending thoracic aorta. Normal visualized thoracic spine. Normal visualized ribs, clavicles, and shoulders. There is no demonstrated abnormality of the visualized soft tissue structures of the upper abdomen. RAD/Chest PA and Lateral IMPRESSION: Normal x-ray examination of the chest. Electronically Signed: Jose Angel Tim, at 12:15 EST , Service support ,
--- NOTE | 2019-07-28 10:22 | EKG12_ITS ---
Test Reason : COUGH Blood Pressure : / mmHG Vent. Rate : 095 BPM Atrial Rate : 095 BPM P-R Int : 152 ms QRS Dur : 084 ms QT Int : 358 ms P-R-T Axes : 039 -27 050 degrees QTc Int : 449 ms Normal sinus rhythm Nonspecific T wave abnormality Abnormal ECG Confirmed by ZAYDA TATE, JENAE ([id number]), scientific editor JAN VALENTIN ([id number] on 08/01/2019 9:46:39 AM Referred By: LUIS Confirmed By:DIANA PRIEST MD
--- NOTE | 2019-07-28 10:35 | ED.VIS.GEN ---
History of Present Illness Chief Complaint: Cold Sx Informant: Patient Onset: Month(s) Current Severity: Mild Narrative: History of diabetes and COPD, indicates she is had a harsh cough for over a month she is been unable to see her physicians the cough at times consists of thick mucus, she has medications uses for her COPD with no improvement her diabetes is been well controlled no fever no chest pain no abdominal pain normal bowel bladder habits Past Medical History - Allergies and Home Meds Allergies/Adverse Reactions: Allergies Penicillins Allergy (Verified 07/28/19 09:59) Hives Sulfa (Sulfonamide Antibiotics) Allergy (Verified 07/28/19 09:59) Hives hydrocodone bitartrate [From Vicodin] Adverse Reaction (Verified 07/28/19 09:59) Nausea Primary Care Physician: Ricci Broussard MD [Primary Care Provider] - Past Medical History: - - COPD and diabetes and as above Surgical History: - - Recent surgery for urinary incontinence also hysterectomy she had all of her teeth removed Smoking Status: Current every day smoker - Family History Maternal Family History: Family History (Last Reviewed 01/09/19 @ 01:29 by Kenn Bansal MD) Brother Diabetes Hypertension Family History: Reports: Unknown Review of Systems General: Denies: Chills, Fever, Sweats Eyes: Denies: Visual changes - bilaterally, Diplopia ENT: Denies: Rhinorrhea, Sore throat Cardiovascular: Denies: Chest pain, Palpitations Respiratory: Reports: Cough, Sputum. Denies: Dyspnea, Dyspnea on exertion Gastrointestinal: Denies: Abdominal pain, Nausea, Vomiting, Diarrhea, Melena, Hematochezia Genitourinary: Denies: Dysuria, Hematuria, Frequency Musculoskeletal: Denies: Back pain, Extremity Pain Skin: Denies: Rash, Wounds Neurological: Denies: Headache, Weakness, Numbness Physical Exam Vital Signs/Narrative: Vital Signs Temp Pulse Resp BP Pulse Ox 07/28/19 09:54 99.0 F 104 H 21 H 154/86 H 98 General: Well nourished, Well developed, No Acute Distress Head: Normocephalic, Atraumatic Eyes: Perrl, EOMI ENT: Moist mucous membranes, No rhinorrhea Neck: Supple, Nontender Cardiovascular: Regular rate, Regular rhythm, No murmurs Respiratory: No distress, Chest nontender, Wheezing, Diminished, - - He has scattered wheezing but good excursion she has a harsh cough. That is occasionally productive of tiny amounts of thick mucus Abdomen: Soft, Nontender, Nondistended, Normal bowel sounds Back: Nontender, Normal Inspection Extremities: Nontender, No edema Skin: Normal color, No rash Neurological: Alert, Oriented x3, Cranial nerves II-XII grossly intact, Normal Strength, Normal Sensation Psychological: Normal affect, Normal Mood Diagnostic/Tx/Re-eval - Medical Decision Making has a history of pneumonia but no history of ND or PE, her COPD usually well controlled she is not been on antibiotics or steroids recently she was unable to see her physician screening work-up The patient is screening work-up including labs UA chest x-ray unremarkable however, UA show signs of UTI, white count 13, troponin BNP negative EKG shows sinus rhythm rate 95 no acute injury pattern intervals within normal range , She has been treated she is feeling better she has a harsh cough here and she spitting up intermittently thick mucus she perceives this to be vomiting but there is no actual vomiting she started IV Levaquin, sure well-hydrated well oxygenated no signs of respiratory cardiopulmonary distress she is couple discharged home on Levaquin Mucinex Flonase for the nasal congestion her Proventil inhaler and she will follow-up with her outpatient providers and return for change in symptoms, she was also noted the urine culture was sent she should follow-up for further management of that as well Addition the patient reported to staff that she occasionally smokes to include marijuana we have asked her to not smoke or smoke marijuana that can exacerbate her underlying COPD Home stable Impression final Acute exacerbation of COPD bronchitis Urinary tract infection ED Disposition - Plan for ED Patient: Diagnosis: COPD (chronic obstructive pulmonary disease) Instructions: BRONCHITIS, Antiobiotic Treatment (Adult), Copd Flare Prescriptions: Fluticasone Propionate [Flonase Allergy Relief] 15.8 ml NS BID #1 spray.susp Prescription Printed Levofloxacin [Levaquin] 750 mg PO DAILY #10 tab Prescription Printed Guaifenesin [Mucinex] 600 mg PO ACHS & 3AM #20 tab.er.12h Prescription Printed Albuterol Inhaler [Ventolin Hfa] 1 - 2 puff INHALATION Q4H PRN PRN #1 inhaler PRN Reason: Wheezing Prescription Printed Ondansetron [Zofran Odt] 4 mg PO Q8H PRN PRN #10 tab PRN Reason: Nausea Prescription Printed Referrals: Ricci Broussard MD [Primary Care Provider] -
[2019-07-28] MEDS: Ipratropium/Albuterol Sulfate 3 ML AMPUL.NEB INHALATION (10:37)
[2019-07-28 10:38] VITALS: PULSE 97; RESP 15
[2019-07-28 10:42] LABS: Absolute Lymphocyte Count 2.96 X10^3/uL (0.83-4.51); Absolute Neutrophil Count 9.2 X10^3/uL (2.0-7.7); Basophil# 0.04 X10^3/uL; Basophil% 0.3 % (0-1); Eosinophil# 0.07 X10^3/uL; Eosinophils% 0.5 % (0-5); Hematocrit 46.2 % (37-47); Hemoglobin 15.5 g/dL (12.0-15.0); Lymphocyte # 2.96 X10^3/ul (4.0); Lymphocyte % 22.8 % (19-41); Mean Corp Hgb Conc 33.5 g/dL (32-36); Mean Corpuscular Hgb 29.6 pg (27.0-32.0); Mean Corpuscular Volume 88.3 fL (81-99); Monocyte# 0.66 X10^3/uL; Monocyte% 5.1 % (0-10); NRBC Flagged by Analyzer 0 % (0-5); Neutrophil # 9.21 X10^3/uL (2.7-7.7); Platelet Count 307 K/mm3 (150-450); RBC Distribution Width CV 12.8 % (11.6-14.6); RBC Distribution Width SD 41.6 fl (35.1-43.9); Red Blood Count 5.23 M/mm3 (4.2-5.4)
[2019-07-28] MEDS: Ondansetron 4 MG/2 ML Vial IV (10:58)
[2019-07-28 11:05] LABS: Anion Gap 11 (5-15); BUN 7 mg/dL (7-18); Chloride 101 mmol/L (98-107); Creatinine, Serum 0.87 mg/dL (0.55-1.02); EST Glomerular Filtration Rate 70 mL/min (>60); Est Glom Filt Rate - Afr Amer 84 mL/min (>60); Glucose 334 mg/dL (74-106); Potassium 3.8 mmol/L (3.5-5.1); Sodium Level 135 mmol/L (136-145)
[2019-07-28 11:09] LABS: BNP,B-Type NATRIURETIC PEPTIDE 13.1 pg/mL (0-100)
[2019-07-28 11:31] LABS: Mucous, Urine 0 SEEN /hpf (<or=2+); Red Blood Cells-Urine 0 SEEN /hpf (0-5); Squamous Epithelial Cells - UA 0 SEEN /hpf (5-10)
[2019-07-28 11:32] LABS: Color, Urine Yellow (Yellow); Glucose, Dipstick 1000 mg/dl (Normal); Ketone-Dipstick 150 mg/dl (Negative); Leukocyte Esterase-Dipstick 500 /ul (Negative); Nitrite-Dipstick Positive (Negative); Occult Blood-Urine 25 /ul (Negative); Protein-Dipstick 15 mg/dl (Negative); Specific Gravity, Urine 1.015 (1.002-1.030); Urine Bilirubin Dipstick Negative (Negative); Urine Clarity Sl. Cloudy (Clear); Urine Urobilinogen Normal (Normal)
[2019-07-28 11:40] LABS: Bacteria 3+ /hpf (None Seen); White Blood Cells 10-25 SEEN /hpf (0-5)
[2019-07-28] MEDS: proMETHazine 25 MG Tablet PO (12:17)
[2019-07-28 12:23] VITALS: BP 150/75; PULSE 110; RESP 15; O2SAT 98
[2019-07-28 12:55] VITALS: BP 150/75; PULSE 109; RESP 14; O2SAT 95
== END 2019-07-28 12:56 | disposition home or self-care (01) ==
PROVIDERS: Emergency Provider Emergency Medicine; Family Provider Family Medicine; PCP Family Medicine
DX: J44.1 Chronic obstructive pulmonary disease with (acute) exacerbation (principal); N39.0 Urinary tract infection, site not specified; E11.9 Type 2 diabetes mellitus without complications; Z87.01 Personal history of pneumonia (recurrent); Z79.4 Long term (current) use of insulin; Z79.899 Other long term (current) drug therapy; F12.90 Cannabis use, unspecified, uncomplicated; F17.200 Nicotine dependence, unspecified, uncomplicated; R06.2 Wheezing
CPT/HCPCS: 71046; 80048; 81001; 83880; 84484; 85025; 87077; 87086; 87088; 87186; 93005; 94640; 96361; 96374; 99285; J7040; A4216; J2405

== ENCOUNTER 2020-01-09 12:37 | Emergency (ER) | payer MEDICARE, MEDICAID, SELFPAY ==
[2020-01-09 12:38] VITALS: BP 154/89; PULSE 107; RESP 20; TEMP 37.1; O2SAT 97; BMI 33.1
--- NOTE | 2020-01-09 13:35 | RAD_ITS ---
STUDY: X-RAY CHEST REASON FOR EXAM: Female, 64 years old. COUGH, VOMITING, BODY ACHES X 2 MONTHS TECHNIQUE: Single AP portable view of the chest. COMPARISON: Previous study of 07/28/2019 FINDINGS: The lungs are clear and expanded. There is no demonstrated pleural abnormality. Normal size heart. Normal mediastinum and karsten. Normal visualized pulmonary arteries. Normal visualized aortic arch and descending thoracic aorta. Normal visualized thoracic spine. Normal visualized ribs, clavicles, and shoulders. There is no demonstrated abnormality of the visualized soft tissue structures of the upper abdomen. RAD/Chest 1 View (Portable) IMPRESSION: Normal x-ray examination of the chest. Electronically Signed: Kevin Blevins MD at 14:49 EDT , Service support ,
--- NOTE | 2020-01-09 14:06 | ED.DCSUM_ITS ---
- ER Visit Summary Date of Service: 01/09/20 Chief Complaint: Cough History of Present Illness: The patient is a 64 F who presents with a cough that is been getting worse over the past 2 to 3 months. Patient states she is currently on her second course of antibiotics. Patient states she was prescribed erythromycin which she was unable to tolerate. Patient states she was then placed on Levaquin. Patient states she has taken 3 doses of that and has 2 more to go. Patient states she is not feeling any better. Patient admits to some rhinorrhea. Patient also admits to some shortness of breath. Patient states she is coughing up some sputum that was green initially but is now white. Patient admits to back pain and some myalgias. Patient also admits to some urinary frequency and states she has a history of frequent urinary tract infections. Physical Examination: Vital signs are stable except for mild tachycardia of 107. Patient is afebrile here. Patient is in no acute distress. Oral mucosa is pink and moist. Neck is supple. Trachea is midline. There is no JVD. Heart was regular rate and rhythm. Lungs are diminished bilaterally. There is adequate respiratory effort. Abdomen is soft. Bowel sounds are normal. There is no tenderness. Cranial nerves II through XII are intact. There are no focal motor or sensory deficits. Tremors are intact. There is no calf tenderness or edema. Test Results: CBC shows a mild leukocytosis of 15.9. Comprehensive metabolic profile was within normal limits with exception of an elevated glucose of 246. Urinalysis shows leukocyte Estrace of 500 with 10-25 white blood cells and 2+ bacteria. There is also 1+ yeast noted. RSV, influenza, and rapid strep swabs were obtained were all negative. Portable chest x-ray was obtained. There is no acute cardiopulmonary process. This was interpreted by the radiologist and reviewed by myself. Emergency Department Course and Treatment: Patient was given Zofran here. Patient was started on Macrobid. Urine culture was obtained. Patient was instructed to complete her course of Levaquin. Patient was given a prescription for Reglan. Patient states this helps better with her nausea than anything else. Patient was instructed to drink plenty of fluids. Patient was instructed to follow-up with her primary care physician in 5 to 7 days. Patient understood and was agreeable with the plan. All questions were answered. Disposition: Discharge home Impression: 1. Urinary tract infection This note was generated with [employer] dictation software. It may contain incorrect words, spelling, and punctuation that were not noted in review of the chart prior to signing ED Disposition - Plan for ED Patient: Disposition: Home or Assisted Living Diagnosis: Urinary tract infection Instructions: ED CYSTITIS Female Adult Prescriptions: Nitrofurantoin Macrocrystals [Macrobid] 100 mg PO Q12 #10 cap Prescription Printed Referrals: Ricci Broussard MD [Primary Care Provider] - 3-5 Days
[2020-01-09 14:21] VITALS: BP 154/89; PULSE 91; RESP 20; TEMP 37.1; O2SAT 97
[2020-01-09 14:23] LABS: Mucous, Urine 0 SEEN /hpf (<or=2+)
[2020-01-09 14:24] LABS: Absolute Neutrophil Count 10.7 X10^3/uL (2.0-7.7); Basophil# 0.07 X10^3/uL; Basophil% 0.4 % (0-1); Eosinophil# 0.08 X10^3/uL; Eosinophils% 0.5 % (0-5); Hematocrit 44.9 % (37-47); Hemoglobin 15.4 g/dL (12.0-15.0); Lymphocyte % 25.8 % (19-41); Mean Corp Hgb Conc 34.3 g/dL (32-36); Mean Corpuscular Hgb 31.2 pg (27.0-32.0); Mean Corpuscular Volume 91.1 fL (81-99); Mean Platelet Vol. 9.2 fl (6.2-12.0); Monocyte# 0.91 X10^3/uL; Monocyte% 5.7 % (0-10); NRBC Flagged by Analyzer 0 % (0-5); Neutrophil # 10.67 X10^3/uL (2.7-7.7); Platelet Count 344 K/mm3 (150-450); RBC Distribution Width CV 13.4 % (11.6-14.6); RBC Distribution Width SD 43.9 fl (35.1-43.9); Red Blood Count 4.93 M/mm3 (4.2-5.4); White Blood Count 15.9 K/mm3 (4.4-11.0)
[2020-01-09 14:25] VITALS: BP 143/79
[2020-01-09 14:26] LABS: Color, Urine Yellow (Yellow); Glucose, Dipstick 1000 mg/dl (Normal); Ketone-Dipstick 15 mg/dl (Negative); Leukocyte Esterase-Dipstick 500 /ul (Negative); Nitrite-Dipstick Negative (Negative); Occult Blood-Urine 10 /ul (Negative); Protein-Dipstick 30 mg/dl (Negative); Specific Gravity, Urine 1.025 (1.002-1.030); Urine Bilirubin Dipstick Negative (Negative); Urine Clarity Clear (Clear); Urine Urobilinogen Normal (Normal)
[2020-01-09] MEDS: Ondansetron 4 MG/2 ML Vial IV (14:31)
[2020-01-09 14:32] LABS: Bacteria 2+ /hpf (None Seen); Red Blood Cells-Urine 0-5 SEEN /hpf (0-5); Squamous Epithelial Cells - UA 0-5 SEEN /hpf (5-10); White Blood Cells 10-25 SEEN /hpf (0-5); Yeast-Urine 1+ /hpf (None Seen)
[2020-01-09 14:40] LABS: ALB/GLOB Ratio 0.9 RATIO (0.9-2.4); AST(SGOT) 30 U/L (15-37); Alanine Aminotransfer ALT/SGPT 25 U/L (13-56); Albumin, Serum 3.6 g/dL (3.2-5.0); Alkaline Phosphatase 83 U/L (45-117); Anion Gap 8 (5-15); BUN 6 mg/dL (7-18); BUN/Creat Ratio 8.9 RATIO (10-20); Calcium,Total 9.2 mg/dL (8.5-10.1); Chloride 107 mmol/L (98-107); Creatinine, Serum 0.67 mg/dL (0.55-1.02); EST Glomerular Filtration Rate 94 mL/min (>60); Est Glom Filt Rate - Afr Amer 114 mL/min (>60); Estimated Creatinine Clearance 84.66 ml/min; Globulin 3.8 g/dL (2.2-4.2); Glucose 246 mg/dL (74-106); Protein, Total 7.4 g/dL (6.4-8.2); Sodium Level 139 mmol/L (136-145)
[2020-01-09 16:08] VITALS: BP 140/79; PULSE 88; RESP 18; O2SAT 100
== END 2020-01-09 16:10 | disposition home or self-care (01) ==
LOC: ED 15:50
PROVIDERS: Emergency Provider Emergency Medicine; PCP Family Medicine
DX: N39.0 Urinary tract infection, site not specified (principal); J34.89 Other specified disorders of nose and nasal sinuses; R06.00 Dyspnea, unspecified; R05 Cough; E66.9 Obesity, unspecified; J44.9 Chronic obstructive pulmonary disease, unspecified; E11.9 Type 2 diabetes mellitus without complications; Z87.440 Personal history of urinary (tract) infections; Z79.4 Long term (current) use of insulin; Z79.899 Other long term (current) drug therapy; F17.200 Nicotine dependence, unspecified, uncomplicated
CPT/HCPCS: 71045; 80053; 81001; 85025; 87086; 87088; 87804; 87807; 87880; 96374; 99284; J2405

== ENCOUNTER → 2020-04-04 09:15 | Outpatient (CLI) | payer MEDICARE, MEDICAID, SELFPAY ==
[2020-03-02 13:28] VITALS: BMI 33.1
== END ==
PROVIDERS: PCP Family Medicine; Referring Provider Physician Assistant; Visit Provider Physician Assistant
DX: Z20.828 Contact with and (suspected) exposure to other viral communicable diseases (principal)
CPT/HCPCS: 87635; 94799; U0003

== ENCOUNTER 2020-08-15 10:21 | Emergency (ER) | payer MEDICARE, MEDICAID, SELFPAY ==
[2020-05-17 11:15] VITALS: BMI 33.1
[2020-08-15 10:22] VITALS: BP 141/78; PULSE 128; RESP 16; TEMP 36.1; O2SAT 99; BMI 36.0
--- NOTE | 2020-08-15 10:56 | EKG12_ITS ---
Test Reason : SOB Blood Pressure : / mmHG Vent. Rate : 112 BPM Atrial Rate : 112 BPM P-R Int : 144 ms QRS Dur : 084 ms QT Int : 338 ms P-R-T Axes : 042 -05 100 degrees QTc Int : 461 ms Sinus tachycardia Nonspecific ST and T wave abnormality Abnormal ECG Confirmed by ALYSHA TATE, AZAM ([id number]), movie editor SONIA CHERRY ([id number]) on 08/16/2020 10:59:40 AM Referred By: CONI Confirmed By:AZAM ENCARNACION MD
--- NOTE | 2020-08-15 10:57 | ED.VISSUMM ---
- ER Visit Summary Date of Service: 08/15/20 Chief Complaint: [Not feeling well] History of Present Illness: The patient is a 65 F [presents to the emergency department with complaint of shortness of breath and not feeling well for the last 2 months. Patient was seen at urgent care several weeks ago and had a negative COVID-19 test. 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 Patient continues to complain of shortness of breath and cough. The cough is productive of green sputum but she states that that seems to be improving. She denies any chest pain. She denies any urinary symptoms currently. She denies any fevers although she has had sweats at night. She complains of exertional dyspnea and generalized weakness. Patient has history of diabetes, COPD, anxiety. She was seen in urgent care today and referred to the ER because of an elevated heart rate. She denies recent travel or surgery. She denies any COVID-19 exposures.] Physical Examination: [HEENT-PERRLA, EOMI. Cranial nerves II through XII grossly intact. TMs clear. Mucous membranes moist. No adenopathy. Cardiovascular-regular and tachycardic. No murmurs auscultated. Lungs-clear to auscultation, chest wall stable without crepitus or subcu emphysema Abdomen-normoactive bowel sounds, soft, nontender, no rebound or rigidity, no peritoneal signs. Extremities-intact ?4, normal range of motion, normal pulses, atraumatic] Test Results: [EKG obtained arrival shows sinus rhythm with a ventricular rate of 112 bpm with some nonspecific ST changes noted. Chest x-ray interpreted by myself as no acute disease process. Radiology in agreement.] CBC with differential obtained showed a white count of 22.8, hemoglobin 15, hematocrit 45, placed 399. Chemistries unremarkable. Troponin was less than 0.015. BNP was 36. D-dimer was normal at 7.27. COVID-19 test was negative. Emergency Department Course and Treatment: [IV line established on arrival. Patient was treated with DuoNeb aerosol and Solu-Medrol 125 mg IV. Etiology of patient's elevated white count unclear however it does seem to be a chronic finding when looking at prior visits. She had been on prednisone several weeks ago.] Treatment Plan: [Patient will requesting antinausea medicine and I will write her for Reglan. Patient also requesting medicine for anxiety when I will write her for few Ativan. I suspect her symptoms may be related to anxiety she does have a history of it and she used to be on BuSpar but is no longer.] Patient to continue with her current antibiotics. Disposition: [Discharged home in stable condition] Impression: [Dyspnea-etiology uncertain Anxiety Leukocytosis-etiology uncertain] This note was generated with [employer] dictation software. It may contain incorrect words, spelling, and punctuation that were not noted in review of the chart prior to signing ED Disposition - Plan for ED Patient: Referrals: Ricci Broussard MD [Primary Care Provider] -
[2020-08-15] MEDS: MethylPREDNISolone 125 MG/2 ML Vial IV (11:12)
[2020-08-15] MEDS: Ipratropium/Albuterol Sulfate 3 ML AMPUL.NEB INHALATION (11:14)
[2020-08-15 11:16] VITALS: PULSE 111; RESP 20
[2020-08-15 11:29] LABS: Absolute Lymphocyte Count 1.82 X10^3/uL (0.83-4.51); Absolute Neutrophil Count 20.1 X10^3/uL (2.0-7.7); Basophil# 0.05 X10^3/uL; Basophil% 0.2 % (0-1); Eosinophil# 0.01 X10^3/uL; Hematocrit 45.5 % (37-47); Hemoglobin 15.5 g/dL (12.0-15.0); Lymphocyte # 1.82 X10^3/ul (4.0); Mean Corp Hgb Conc 34.1 g/dL (32-36); Mean Corpuscular Hgb 30.9 pg (27.0-32.0); Mean Corpuscular Volume 90.6 fL (81-99); Mean Platelet Vol. 8.8 fl (6.2-12.0); Monocyte# 0.69 X10^3/uL; NRBC Flagged by Analyzer 0 % (0-5); Neutrophil # 20.05 X10^3/uL (2.7-7.7); Neutrophil % 88.1 % (47-70); POSITIVE DIFFERENTIAL YES; Platelet Count 399 K/mm3 (150-450); RBC Distribution Width CV 14.2 % (11.6-14.6); RBC Distribution Width SD 47.5 fl (35.1-43.9); Red Blood Count 5.02 M/mm3 (4.2-5.4); White Blood Count 22.8 K/mm3 (4.4-11.0)
[2020-08-15 11:32] LABS: Differential Indicated SCAN CRITERIA MET
--- NOTE | 2020-08-15 11:38 | RAD_ITS ---
STUDY: X-RAY CHEST REASON FOR EXAM: Female, 65 years old. NOT FEELING WELL FOR MONTHS. STATES SHE THINKS SHE MAY BE HAVING A REACTION FROM A NEW ATB SHE STARTED LAST WEEK FOR RESP INFECTION. CHRONIC SOB IS EXACERBATED. TECHNIQUE: Single AP portable view of the chest. COMPARISON: Comparison is made with prior study dated 01/09/2020. FINDINGS: EKG electrodes are seen. Hyperinflation. The lungs are clear. There is no demonstrated pleural abnormality. Normal size heart. Normal mediastinum and karsten. Normal visualized pulmonary arteries. There is atherosclerotic tortuosity of the aortic arch and descending thoracic aorta. There are diffuse degenerative changes of the visualized thoracic spine. Normal visualized ribs, clavicles, and shoulders. There is no demonstrated abnormality of the visualized soft tissue structures of the upper abdomen. RAD/Chest 1 View (Portable) IMPRESSION: No acute abnormality is seen. Electronically Signed: Jose Angel Tim, at 12:26 EST , Service support ,
[2020-08-15 11:44] LABS: Anion Gap 10 (5-15); BUN 10 mg/dL (7-18); BUN/Creat Ratio 11.2 RATIO (10-20); Calcium,Total 9.2 mg/dL (8.5-10.1); Chloride 104 mmol/L (98-107); Creatinine, Serum 0.89 mg/dL (0.55-1.02); EST Glomerular Filtration Rate 68 mL/min (>60); Est Glom Filt Rate - Afr Amer 82 mL/min (>60); Estimated Creatinine Clearance 62.92 ml/min; Glucose 307 mg/dL (74-106); Sodium Level 137 mmol/L (136-145)
[2020-08-15 11:45] LABS: D-Dimer Quantitative (DVT/PE) <= 0.27 FEU/ug/m (0.27-0.49)
[2020-08-15 11:51] LABS: BNP,B-Type NATRIURETIC PEPTIDE 36.1 pg/mL (0-100)
[2020-08-15 13:21] VITALS: BP 132/90; PULSE 107; RESP 21; O2SAT 96
--- NOTE | 2020-08-15 14:11 | ED.DEP ---
ED Disposition - Plan for ED Patient: Instructions: ED Dyspnea, ED Panic Attack Prescriptions: Lorazepam [Ativan] 1 mg PO TID PRN #10 tab PRN Reason: Anxiety Prescription Printed Metoclopramide HCl [Reglan] 5 mg PO TID PRN #10 tab PRN Reason: Nausea Prescription Printed Referrals: Ricci Broussard MD [Primary Care Provider] - 3-5 Days
--- NOTE | 2020-08-15 14:22 | ED.DEP ---
ED Disposition - Plan for ED Patient: Instructions: ED Dyspnea, ED Panic Attack Prescriptions: Lorazepam [Ativan] 1 mg PO TID PRN #10 tab PRN Reason: Anxiety Prescription Printed Prednisone 20 mg PO DAILY #5 tab Prescription Printed Metoclopramide HCl [Reglan] 5 mg PO TID PRN #10 tab PRN Reason: Nausea Prescription Printed Referrals: Ricci Broussard MD [Primary Care Provider] - 3-5 Days
[2020-08-15 14:26] VITALS: BP 136/84
== END 2020-08-15 14:27 | disposition home or self-care (01) ==
LOC: ED 11:50
PROVIDERS: Emergency Provider Emergency Medicine; PCP Family Medicine
DX: R06.00 Dyspnea, unspecified (principal); F41.9 Anxiety disorder, unspecified; D72.829 Elevated white blood cell count, unspecified; E11.9 Type 2 diabetes mellitus without complications; J44.9 Chronic obstructive pulmonary disease, unspecified; Z79.4 Long term (current) use of insulin; Z79.899 Other long term (current) drug therapy; Z72.0 Tobacco use
CPT/HCPCS: 71045; 80048; 83880; 84484; 85025; 85379; 87040; 87635; 93005; 94640; 96374; 99284; U0002

== ENCOUNTER 2022-01-02 11:14 | Emergency (ER) | payer MEDICARE, MEDICAID, SELFPAY ==
[2022-01-02 11:16] VITALS: BP 142/94; PULSE 99; RESP 22; TEMP 36.9; O2SAT 96; BMI 37.9
[2022-01-02 11:41] VITALS: BP 142/92; PULSE 99; RESP 22; TEMP 36.9; O2SAT 96
--- NOTE | 2022-01-02 11:52 | EDS_ITS ---
HPI HPI - Female History of Present Illness Chief Complaint: Complaint Narrative Narrative: 66-year-old female presenting with urinary symptoms. She states he does have dysuria but also is having urinary incontinence. This is when she is walking. Patient states she has been treated with Macrobid initially and then treated with Keflex. 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 She does not have a cough or cold symptoms currently. She reports lower suprapubic pain with her urinary symptoms. She had a couple of episodes of diarrhea which she relates to the antibiotics but states he has not had profuse diarrhea. No black or bloody stools. PFSH PFS Medical History Anxiety and depression Chronic bronchitis Chronic UTI COPD (chronic obstructive pulmonary disease) Diabetes type 2, controlled Gastroparesis GI problem Seasonal allergies Vision problem Home Medications omeprazole 20 mg capsule,delayed release 40 mg PO DAILY cap 11/18/17 [History Last Taken 01/07/19] promethazine 25 mg PO Q6H PRN PRN 01/09/20 [History Last Taken Unknown] busPIRone 1 tab PO TID 08/15/20 [History Last Taken Unknown] bupropion HCl 150 mg PO DAILY 01/02/22 [History Last Taken Unknown] carvedilol 6.25 mg PO BID 01/02/22 [History Last Taken Unknown] escitalopram oxalate 20 mg PO DAILY 01/02/22 [History Last Taken Unknown] insulin lispro [Humalog KwikPen Insulin] 15 unit SUBCUT TID 01/02/22 [History Last Taken Unknown] naproxen [Naprosyn] 500 mg PO BID PRN #20 tab 01/02/22 [Rx Last Taken Unknown] ondansetron 4 mg PO Q8H PRN #10 tab 01/02/22 [Rx Last Taken Unknown] Allergy/AdvReac Type Severity Reaction Status Date / Time Penicillins Allergy Hives Verified 01/02/22 11:15 Sulfa (Sulfonamide Allergy Hives Verified 01/02/22 11:15 Antibiotics) varenicline [From Chantix] Allergy Other Verified 01/02/22 11:16 Family History Brother Diabetes Hypertension Surgical History bladder sling Hx of cholecystectomy S/P complete hysterectomy S/P ORIF (open reduction internal fixation) fracture Social History Smoking Status: Current every day smoker tobacco type: cigarettes second hand exposure: Yes alcohol intake: never substance use type: does not use ROS ROS ED Constitutional Constitutional ED: Denies chills or fever(s) Eyes Eyes: Denies blurry vision ENT ENT ED: Denies rhinorrhea or sore throat Cardiovascular Cardiovascular: Denies chest pain or palpitations Respiratory/Chest Respiratory/Chest: Denies cough or dyspnea Gastrointestinal Gastrointestinal: Reports abdominal pain, constipation, nausea and vomiting Genitourinary Genitourinary ED: Reports dysuria and urinary frequency Musculoskeletal Musculoskeletal: Denies arthralgias or myalgias Integumentary Denies rash Neurologic Neurologic: Denies headache(s) Psychiatric Psychiatric: Denies anxiety or depression EXAM Physical Exam Const Vital Signs: 01/02/22 11:16 01/02/22 11:41 Temperature 98.4 F 98.4 F Temperature Source Temporal Temporal Pulse Rate 99 99 Respiratory Rate 22 H 22 H Blood Pressure 142/94 H 142/92 H Blood Pressure Mean 110 108 Pulse Ox 96 96 Oxygen Delivery Method Room Air Room Air Positive well nourished and obese General Appearance ED: NAD Nutritional Appearance: obese HEENT Reports moist mucous membranes Negative for trauma Eyes PERRL and EOMs intact bilaterally Resp normal respiratory effort Cardio regular rate and regular rhythm GI GI Narrative: Tenderness to palpation in the bilateral lower quadrants and suprapubic region. Abdomen is soft. No peritoneal signs no CVA tenderness Back/Spine no CVA tenderness Neuro oriented x3 Sensorium / Orientation: alert Psych mental status grossly normal Skin no rashes or lesions noted MDM MDM MDM Narrative Medical decision making narrative: Presenting with urinary symptoms. She states she is told she has a severe infection. She assumes this is a urinary tract infection. I obtained a urinalysis and her leukocyte esterase is elevated at 500 however her WBCs are 25-50 and her squamous epithelial cells are 0-5. 1+ bacteria. I did send the urine for culture. CBC shows a slight leukocytosis of 17.2 however this is improved from her previous 19,000 white count outpatient after speaking with Dr. Broussard. Patient's urine culture shows that she was sensitive to Macrobid and that is what she was on. She was also sensitive to Keflex. Because the patient has a leukocytosis I did obtain a CT of the abdomen pelvis which is negative for acute findings. After speaking with the patient and Dr. Broussard I feel the patient is stable to be discharged home. He thought he could get around by Friday for repeat evaluation. Urine culture again is sent. Patient given Zofran and Naprosyn for home. Impression: 1. Dysuria uncertain cause 2. Leukocytosis 3. Abdominal pain 4. Nausea plan Lab Data Attestation: I reviewed the patient's lab results. Labs: Laboratory Results - last 24 hr 01/02/22 01/02/22 01/02/22 12:00 12:00 12:20 WBC 17.2 H RBC 5.23 Hgb 15.9 H Hct 48.6 H MCV 92.9 MCH 30.4 MCHC 32.7 RDW Std Deviation 47.4 H RDW Coeff of Jona 14.0 Plt Count 456 H MPV 9.0 Immature Gran % (Auto) 0.900 Neut % (Auto) 65.1 Lymph % (Auto) 26.8 [place] % (Auto) 5.9 Eos % (Auto) 0.8 Baso % (Auto) 0.5 Absolute Neuts (auto) 11.2 H Absolute Lymphs (auto) 4.60 H Nucleated RBC % 0 Platelet Estimate ADEQUATE RBC Morphology NORM C+C Sodium Cancelled Potassium Cancelled Chloride Cancelled Carbon Dioxide Cancelled Anion Gap Cancelled BUN Cancelled Creatinine Cancelled Estim Creat Clear Calc Cancelled Est GFR (MDRD) Af Amer Cancelled Est GFR (MDRD) Non-Af Cancelled BUN/Creatinine Ratio Cancelled Glucose Cancelled Calcium Cancelled Total Bilirubin Cancelled AST Cancelled ALT Cancelled Alkaline Phosphatase Cancelled Total Protein Cancelled Albumin Cancelled Globulin Cancelled Albumin/Globulin Ratio Cancelled Urine Color Yellow Urine Clarity Sl. Cloudy Urine pH 6.0 Ur Specific [place] 1.025 Urine Protein 30 H Urine Glucose (UA) 250 H Urine Ketones 15 H Urine Occult Blood 25 H Urine Nitrite Negative Urine Bilirubin Negative Urine Urobilinogen 1 H Ur Leukocyte Esterase 500 H Urine RBC 0-5 SEEN Urine WBC 25-50 SEEN Ur Squamous Epith Cells 0-5 SEEN Urine Bacteria 1+ Urine Mucus 0 SEEN 01/02/22 12:25 WBC RBC Hgb Hct MCV MCH MCHC RDW Std Deviation RDW Coeff of Jona Plt Count MPV Immature Gran % (Auto) Neut % (Auto) Lymph % (Auto) [place] % (Auto) Eos % (Auto) Baso % (Auto) Absolute Neuts (auto) Absolute Lymphs (auto) Nucleated RBC % Platelet Estimate RBC Morphology Sodium 137 Potassium 4.1 Chloride 106 Carbon Dioxide 25.0 Anion Gap 6 BUN 9 Creatinine 0.85 Estim Creat Clear Calc 62.59 Est GFR (MDRD) Af Amer 86 Est GFR (MDRD) Non-Af 71 BUN/Creatinine Ratio 10.6 Glucose 294 H Calcium 8.5 Total Bilirubin 0.40 AST 26 ALT 19 Alkaline Phosphatase 68 Total Protein 6.5 Albumin 3.2 Globulin 3.3 Albumin/Globulin Ratio 1.0 Urine Color Urine Clarity Urine pH Ur Specific [place] Urine Protein Urine Glucose (UA) Urine Ketones Urine Occult Blood Urine Nitrite Urine Bilirubin Urine Urobilinogen Ur Leukocyte Esterase Urine RBC Urine WBC Ur Squamous Epith Cells Urine Bacteria Urine Mucus Radiography Diagnostic Testing: Clinical Impression(s) from Imaging Studies Abdomen/Pelvis CT 01/02/22 12:00 IMPRESSION: Fatty infiltration of the liver. No acute abnormality is seen. Electronically Signed: Jose Angel Tim MD at 12:15 EDT , Discharge Plan Triage Chief Complaint: Complaint Other Complaint: Shortness of Breath ED Provider: Barrett Powell Dx/Rx/DC Orders Instructions: ED Abdominal Pain Unkn Cause Fem, ED Dysuria, Uncertain Cause (Adult) Prescriptions: New ondansetron 4 mg tablet,disintegrating 4 mg PO Q8H PRN (Reason: nausea and vomiting) Qty: 10 RF: 0 naproxen [Naprosyn] 500 mg tablet 500 mg PO BID PRN (Reason: pain) Qty: 20 RF: 0 No Action omeprazole 20 mg capsule,delayed release(DR/EC) 40 mg PO DAILY RF: 0 promethazine 25 MG tablet 25 mg PO Q6H PRN PRN (Reason: Nausea) RF: 0 busPIRone 1 tab PO TID RF: 0 carvedilol 3.125 mg tablet 6.25 mg PO BID RF: 0 insulin lispro [Humalog KwikPen Insulin] 100 unit/mL Insulin Pen 15 unit SUBCUT TID RF: 0 escitalopram oxalate 20 mg tablet 20 mg PO DAILY RF: 0 bupropion HCl 150 mg tablet extended release 24 hr 150 mg PO DAILY RF: 0 Primary Care Provider: Ricci Broussard Referrals: Ricci Broussard MD [Primary Care Provider] - Disposition Disposition: Home, Self Care Discharge Date/Time: 01/02/22 14:57
--- NOTE | 2022-01-02 12:00 | CT_ITS ---
STUDY: CT ABDOMEN AND PELVIS WITHOUT CONTRAST REASON FOR EXAM: Female, 66 years old. Abdominal pain. RADIATION DOSAGE (If Supplied By Facility): CTDIvol = ( 22.92 ) mGy, DLP = ( 1191.09 ) mGycm TECHNIQUE: Transaxial images were obtained from the dome of the diaphragm to the symphysis pubis without oral contrast, and without intravenous contrast. Sagittal and coronal images were reconstructed. Individualized dose optimization techniques were used for this CT. COMPARISON: Comparison is made with prior study dated 04/27/2019. FINDINGS: Stable scarring at the right lung base. Coronary artery calcification. There is decreased attenuation of the liver consistent with steatosis. The patient is status post cholecystectomy. Normal spleen. Normal pancreas. Normal bilateral adrenal glands. Normal right kidney. Stable 2.8 cm cyst in the lateral aspect of the left kidney. Normal visualized stomach. Normal small intestine. There are scattered colonic diverticula consistent with diverticulosis. The appendix is visualized and appears normal. There is scattered atherosclerotic calcification of the abdominal aorta, without a demonstrated aneurysm. Normal inferior vena cava. Normal retroperitoneum. Normal urinary bladder. There is absence of the uterus consistent with a prior hysterectomy. Normal abdominal wall. There are degenerative changes of the visualized lumbar spine. CT/Abdomen/Pelvis without Cont IMPRESSION: Fatty infiltration of the liver. No acute abnormality is seen. Electronically Signed: Jose Angel Tim MD at 12:15 EDT ,
[2022-01-02 12:08] LABS: Absolute Neutrophil Count 11.2 X10^3/uL (2.0-7.7); Basophil# 0.09 X10^3/uL; Basophil% 0.5 % (0-1); Eosinophil# 0.14 X10^3/uL; Eosinophils% 0.8 % (0-5); Hematocrit 48.6 % (37-47); Hemoglobin 15.9 g/dL (12.0-15.0); Lymphocyte % 26.8 % (19-41); Mean Corp Hgb Conc 32.7 g/dL (32-36); Mean Corpuscular Hgb 30.4 pg (27.0-32.0); Mean Corpuscular Volume 92.9 fL (81-99); Monocyte# 1.01 X10^3/uL; Monocyte% 5.9 % (0-10); NRBC Flagged by Analyzer 0 % (0-5); Neutrophil # 11.17 X10^3/uL (2.7-7.7); Neutrophil % 65.1 % (47-70); POSITIVE MORPHOLOGY YES; Platelet Count 456 K/mm3 (150-450); RBC Distribution Width SD 47.4 fl (35.1-43.9); Red Blood Count 5.23 M/mm3 (4.2-5.4); White Blood Count 17.2 K/mm3 (4.4-11.0)
[2022-01-02 12:09] LABS: Differential Indicated SCAN CRITERIA MET
[2022-01-02] MEDS: 0.9% Normal Saline 1,000 ML 999 ML IV (12:13)
[2022-01-02] MEDS: Morphine 4 MG/ML Syringe IV (12:13)
[2022-01-02] MEDS: Ondansetron 4 MG/2 ML Vial IV (12:13)
[2022-01-02 12:27] LABS: Mucous, Urine 0 SEEN /hpf (<or=2+)
[2022-01-02 12:30] LABS: Color, Urine Yellow (Yellow); Glucose, Dipstick 250 mg/dl (Normal); Ketone-Dipstick 15 mg/dl (Negative); Leukocyte Esterase-Dipstick 500 /ul (Negative); Nitrite-Dipstick Negative (Negative); Occult Blood-Urine 25 /ul (Negative); Protein-Dipstick 30 mg/dl (Negative); Specific Gravity, Urine 1.025 (1.002-1.030); Urine Bilirubin Dipstick Negative (Negative); Urine Clarity Sl. Cloudy (Clear); Urine Urobilinogen 1 mg/dl (Normal)
[2022-01-02 12:37] LABS: Bacteria 1+ /hpf (None Seen); Red Blood Cells-Urine 0-5 SEEN /hpf (0-5); Squamous Epithelial Cells - UA 0-5 SEEN /hpf (5-10); White Blood Cells 25-50 SEEN /hpf (0-5)
[2022-01-02 12:40] LABS: Platelet Estimate ADEQUATE (ADEQ)
[2022-01-02 12:41] LABS: Red Cell Morphology NORM C+C NORMAL (NORM C&C)
[2022-01-02 12:54] LABS: AST(SGOT) 26 U/L (15-37); Alanine Aminotransfer ALT/SGPT 19 U/L (13-56); Albumin, Serum 3.2 g/dL (3.2-5.0); Alkaline Phosphatase 68 U/L (45-117); Anion Gap 6 (5-15); BUN 9 mg/dL (7-18); BUN/Creat Ratio 10.6 RATIO (10-20); Calcium,Total 8.5 mg/dL (8.5-10.1); Chloride 106 mmol/L (98-107); Creatinine, Serum 0.85 mg/dL (0.55-1.02); EST Glomerular Filtration Rate 71 mL/min (>60); Est Glom Filt Rate - Afr Amer 86 mL/min (>60); Estimated Creatinine Clearance 62.59 ml/min; Globulin 3.3 g/dL (2.2-4.2); Glucose 294 mg/dL (74-106); Potassium 4.1 mmol/L (3.5-5.1); Protein, Total 6.5 g/dL (6.4-8.2); Sodium Level 137 mmol/L (136-145)
== END 2022-01-02 14:57 | disposition home or self-care (01) ==
PROVIDERS: Emergency Provider Student in an Organized Health Care Education/Training Program; PCP Family Medicine; Visit Provider Student in an Organized Health Care Education/Training Program
DX: R30.0 Dysuria (principal); J44.9 Chronic obstructive pulmonary disease, unspecified; E11.43 Type 2 diabetes mellitus with diabetic autonomic (poly)neuropathy; Z79.4 Long term (current) use of insulin; D72.829 Elevated white blood cell count, unspecified; R10.9 Unspecified abdominal pain; R11.0 Nausea; F41.9 Anxiety disorder, unspecified; F32.A Depression, unspecified; Z87.440 Personal history of urinary (tract) infections; K31.84 Gastroparesis; Z79.899 Other long term (current) drug therapy; F17.210 Nicotine dependence, cigarettes, uncomplicated; E66.9 Obesity, unspecified; Z68.37 Body mass index [BMI] 37.0-37.9, adult
CPT/HCPCS: 36415; 74176; 80053; 81001; 85025; 87086; 87088; 87186; 96361; 96374; 96375; 99283; J7030; A4216; J2405

== ENCOUNTER 2022-01-17 14:59 | Inpatient (IN) | payer MEDICARE, MEDICAID, SELFPAY ==
[2022-01-17 15:00] VITALS: BP 193/100; PULSE 112; RESP 18; TEMP 36.8; O2SAT 95; BMI 38.0
[2022-01-17 15:20] LABS: Mucous, Urine 0 SEEN /hpf (<or=2+)
[2022-01-17 15:40] LABS: Color, Urine Yellow (Yellow); Glucose, Dipstick 50 mg/dl (Normal); Ketone-Dipstick 5 mg/dl (Negative); Leukocyte Esterase-Dipstick 500 /ul (Negative); Nitrite-Dipstick Positive (Negative); Occult Blood-Urine 25 /ul (Negative); Protein-Dipstick 30 mg/dl (Negative); Urine Bilirubin Dipstick Negative (Negative); Urine Clarity Cloudy (Clear); Urine Urobilinogen Normal (Normal)
[2022-01-17 15:54] LABS: Red Blood Cells-Urine 0-5 SEEN /hpf (0-5); Squamous Epithelial Cells - UA 5-10 SEEN /hpf (5-10); White Blood Cells 25-50 SEEN /hpf (0-5)
[2022-01-17 15:55] LABS: Bacteria 4+ /hpf (None Seen)
[2022-01-17] MEDS: Ondansetron 4 MG/2 ML Vial IV (16:11)
[2022-01-17] MEDS: 0.9% Normal Saline 1,000 ML 1000 ML IV (16:11)
--- NOTE | 2022-01-17 16:11 | EDS_ITS ---
HPI <DUGLAS Canchola - Last Filed: 01/17/22 18:38> History of Present Illness Chief Complaint: Complaint Narrative Narrative: 66-year-old female with history of diabetes COPD fibromyalgia presents to the emergency department with continued pelvic pain secondary to urinary tract infectious-like symptoms. Patient states she been dealing with a UTI for multiple weeks, has been on several different kind of antibiotics. Patient was last on Macrobid which was sensitive, patient finished 8 days ago and states she is still having continued pain. Patient states she is still having full body aches, worsening urinary symptoms and is here for evaluation. Patient states she talk to her doctor Dr. Broussard who requested she be admitted for IV antibiotics. Patient states have low-grade fevers at home, chills, back pain. Denies any blood in urine. PFSH <DUGLAS Canchola - Last Filed: 01/17/22 18:38> PFSH Medical History Anxiety and depression Chronic bronchitis Chronic UTI COPD (chronic obstructive pulmonary disease) Depression Diabetes type 2, controlled Diarrhea Essential (primary) hypertension Frequent headaches Gastritis Gastroparesis GI problem Leukocytosis Nausea Panic disorder with agoraphobia Seasonal allergies Secondary polycythemia Urinary incontinence Vision problem Home Medications omeprazole 20 mg capsule,delayed release 40 mg PO DAILY cap 11/18/17 [History Last Taken 01/17/22] promethazine 25 mg PO Q6H PRN PRN 01/09/20 [History Last Taken 01/17/22] carvedilol 6.25 mg PO BID 01/02/22 [History Last Taken 01/17/22] escitalopram oxalate 20 mg PO DAILY 01/02/22 [History Last Taken 01/17/22] insulin lispro [Humalog KwikPen Insulin] See Protocol SUBCUT TID 01/02/22 [History Last Taken 01/17/22] naproxen [Naprosyn] 500 mg PO BID PRN #20 tab 01/02/22 [Rx Last Taken 01/16/22] ondansetron 4 mg PO Q8H PRN #10 tab 01/02/22 [Rx Last Taken 01/17/22] atorvastatin 20 mg tablet 20 mg PO DAILY 01/11/22 [History Last Taken 01/16/22] cholecalciferol (vitamin D3) 50 mcg (2,000 unit) capsule 50 mcg PO DAILY 01/11/22 [History Last Taken 01/13/22] gabapentin 400 mg capsule 400 mg PO TID 01/11/22 [History Last Taken 01/17/22] insulin glargine U-300 conc 300 unit/mL (3 mL) subcutaneous pen 80 unit SUBCUT DAILY ml 01/11/22 [History Last Taken 01/17/22] quetiapine 300 mg tablet 300 mg PO QHS 01/11/22 [History Last Taken 01/16/22] scopolamine base 1 mg over 3 days transdermal patch 1 patch TRANSDERMAL Q3D PRN 01/11/22 [History Last Taken Unknown] albuterol sulfate 90 inh INHALATION Q4H PRN PRN 01/17/22 [History Last Taken 01/17/22] bupropion HCl 150 mg PO DAILY 01/17/22 [History Last Taken 01/17/22] buspirone 10 mg PO TID 01/17/22 [History Last Taken 01/17/22] fluticasone furoate-vilanterol [Breo Ellipta] 1 ea INHALATION DAILY 01/17/22 [History Last Taken 01/17/22] Allergy/AdvReac Type Severity Reaction Status Date / Time Penicillins Allergy Hives Verified 01/17/22 15:03 Sulfa (Sulfonamide Allergy Hives Verified 01/17/22 15:03 Antibiotics) varenicline [From Chantix] Allergy Other Verified 01/17/22 15:03 Family History Brother Diabetes Hypertension Surgical History bladder sling H/O tubal ligation Hx of cholecystectomy S/P complete hysterectomy S/P ORIF (open reduction internal fixation) fracture Social History Smoking Status: Current every day smoker tobacco type: cigarettes second hand exposure: Yes alcohol intake: never substance use type: does not use ROS <DUGLAS Canchola - Last Filed: 01/17/22 18:38> ROS ED ROS Narrative Constitutional: Negative for weight loss, weakness. Positive fever and chills Eyes: Negative for vision loss, vision change, double vision ENT: Negative for any sore throat, ear pain, congestion Cardiovascular: Negative for any chest pain, tightness, palpitations Respiratory: Negative for any cough, sputum production, hemoptysis, dyspnea, dyspnea on exertion, orthopnea Gastrointestinal: Negative for any abdominal pain, nausea, vomiting, diarrhea, constipation, blood in stool, blood in vomit : Negative for any retention, blood in urine. Positive for urinary frequency, dysuria Muscle skeletal: Negative for any muscle joint pain, stiffness, myalgias, arthralgias, neck pain. Positive for back pain Neurological: Negative for any headache, syncope, numbness or tingling, dizziness Skin: Negative for any rashes, lumps, itching, abrasions, lacerations Psychiatric: Negative for any depression, anxiety, stress, suicidal ideation, homicidal ideation Hematologic: Negative for any easy bruising, excessive bruising, easy bleeding Allergies: Negative for any eczema, hives, rash EXAM <DUGLAS Canchola - Last Filed: 01/17/22 18:38> Physical Exam Narrative Exam Narrative: Vital signs reviewed. HEET: Head normocephalic atraumatic, TMs clear bilaterally. Posterior pharynx is clear, moist mucous membranes. Nares clear bilaterally. Neck: Supple with no lymphadenopathy or tenderness. No signs of meningismus, negative jolt sign. Cardiac: Regular rate and rhythm no murmurs gallops or rubs, equal peripheral pulses bilaterally. Respiratory: Lungs clear to auscultation bilaterally. No chest tenderness. Abdomen: Soft, nondistended. No abdominal bruit or pulsatile masses. No hepatosplenomegaly. Patient has tenderness to the lower abdomen Extremities: No peripheral edema, no signs of gross trauma or deformity. Active full range of motion of all extremities. Neuro: Cranial nerves II through XII intact, no focal neurological deficits. Skin: Clean dry and intact with no rash, purpura, petechiae, vesicles or pustules. Backs/flank: CVA tenderness bilaterally, no midline spinal tenderness, no deformity. Psych: Normal mood and affect. No SI, HI or acute psychosis. Const Vital Signs: 01/17/22 15:00 01/17/22 16:43 Temperature 98.2 F Temperature Source Temporal Pulse Rate 112 H Respiratory Rate 18 Blood Pressure 193/100 H 146/70 H Blood Pressure Mean 131 95 Pulse Ox 95 Oxygen Delivery Method Room Air Positive well nourished and well developed General Appearance ED: well developed <Kevin Whitman MD - Last Filed: 01/17/22 23:33> Physical Exam Const Vital Signs: 01/17/22 15:00 01/17/22 16:43 Temperature 98.2 F Temperature Source Temporal Pulse Rate 112 H Respiratory Rate 18 Blood Pressure 193/100 H 146/70 H Blood Pressure Mean 131 95 Pulse Ox 95 Oxygen Delivery Method Room Air MDM <DUGLAS Canchola - Last Filed: 01/17/22 18:38> MDM MDM Narrative Medical decision making narrative: Patient does appear to be in discomfort to her suprapubic area, patient has been dealing with a urinary tract infection for multiple weeks, is feeling more fatigued and is here for evaluation. Per her PCP, she would like her admitted. Upon initial examination, I did perform a full sepsis work-up with 2 sets of blood cultures. Patient's CBC shows a leukocytosis white blood count of 14.4. Patient's chemistries were unremarkable, patient's urinalysis did appear to be grossly infected with 4+ bacteria 25-50 white blood cells positive nitrates with 500 leukocyte Estrace. I did look at the culture from the last visit on 02 Jan 2022, the patient was ordered gentamicin however after talking to the hospitalist we change it to cefepime. Patient also received IV fluids, IV Zofran, IV morphine. Patient's vital signs improved. This patient does meet SIRS criteria and will be diagnosed with urinary tract infection failed outpatient therapy. Lab Data Labs: Laboratory Results - last 24 hr 01/17/22 01/17/22 01/17/22 15:10 16:12 16:12 WBC 14.4 H RBC 4.83 Hgb 14.8 Hct 45.1 MCV 93.4 MCH 30.6 MCHC 32.8 RDW Std Deviation 47.9 H RDW Coeff of Jona 13.9 Plt Count 339 MPV 9.0 Immature Gran % (Auto) 0.500 Neut % (Auto) 65.4 Lymph % (Auto) 26.2 [place] % (Auto) 6.6 Eos % (Auto) 1.0 Baso % (Auto) 0.3 Absolute Neuts (auto) 9.4 H Absolute Lymphs (auto) 3.77 Nucleated RBC % 0 Sodium 142 Potassium 3.4 L Chloride 108 H Carbon Dioxide 27.0 Anion Gap 7 BUN 8 Creatinine 0.77 Estim Creat Clear Calc 71.78 Est GFR (MDRD) Af Amer 97 Est GFR (MDRD) Non-Af 80 BUN/Creatinine Ratio 10.4 Glucose 102 Lactic Acid Calcium 8.9 Urine Color Yellow Urine Clarity Cloudy Urine pH 6.0 Ur Specific [place] 1.020 Urine Protein 30 H Urine Glucose (UA) 50 H Urine Ketones 5 H Urine Occult Blood 25 H Urine Nitrite Positive H Urine Bilirubin Negative Urine Urobilinogen Normal Ur Leukocyte Esterase 500 H Urine RBC 0-5 SEEN Urine WBC 25-50 SEEN Ur Squamous Epith Cells 5-10 SEEN Urine Bacteria 4+ Urine Mucus 0 SEEN 01/17/22 16:12 WBC RBC Hgb Hct MCV MCH MCHC RDW Std Deviation RDW Coeff of Jona Plt Count MPV Immature Gran % (Auto) Neut % (Auto) Lymph % (Auto) [place] % (Auto) Eos % (Auto) Baso % (Auto) Absolute Neuts (auto) Absolute Lymphs (auto) Nucleated RBC % Sodium Potassium Chloride Carbon Dioxide Anion Gap BUN Creatinine Estim Creat Clear Calc Est GFR (MDRD) Af Amer Est GFR (MDRD) Non-Af BUN/Creatinine Ratio Glucose Lactic Acid 3.1 H* Calcium Urine Color Urine Clarity Urine pH Ur Specific [place] Urine Protein Urine Glucose (UA) Urine Ketones Urine Occult Blood Urine Nitrite Urine Bilirubin Urine Urobilinogen Ur Leukocyte Esterase Urine RBC Urine WBC Ur Squamous Epith Cells Urine Bacteria Urine Mucus <Kevin Whitman MD - Last Filed: 01/17/22 23:33> MDM MDM Narrative Medical decision making narrative: ATTENDING NOTE: Dr. Whitman: The patient was seen in conjunction with the PA-C/nurse practitioner. I performed a history and physical, and agree with the management of this patient. I agree with noted documentation and plan. I discussed the plan of care and final disposition with the physician associate/nurse practitioner. Frequent urinary tract infections. Told by primary care at risk for sepsis. Vital signs noted. Abdomen soft and nontender. Check labs. Check urinalysis. Culture. Gentamicin. Admit. Lab Data Attestation: I reviewed the patient's lab results. Labs: Laboratory Results - last 24 hr 01/17/22 01/17/22 01/17/22 15:10 16:12 16:12 WBC 14.4 H RBC 4.83 Hgb 14.8 Hct 45.1 MCV 93.4 MCH 30.6 MCHC 32.8 RDW Std Deviation 47.9 H RDW Coeff of Jona 13.9 Plt Count 339 MPV 9.0 Immature Gran % (Auto) 0.500 Neut % (Auto) 65.4 Lymph % (Auto) 26.2 [place] % (Auto) 6.6 Eos % (Auto) 1.0 Baso % (Auto) 0.3 Absolute Neuts (auto) 9.4 H Absolute Lymphs (auto) 3.77 Nucleated RBC % 0 Sodium 142 Potassium 3.4 L Chloride 108 H Carbon Dioxide 27.0 Anion Gap 7 BUN 8 Creatinine 0.77 Estim Creat Clear Calc 71.78 Est GFR (MDRD) Af Amer 97 Est GFR (MDRD) Non-Af 80 BUN/Creatinine Ratio 10.4 Glucose 102 Lactic Acid Calcium 8.9 Urine Color Yellow Urine Clarity Cloudy Urine pH 6.0 Ur Specific [place] 1.020 Urine Protein 30 H Urine Glucose (UA) 50 H Urine Ketones 5 H Urine Occult Blood 25 H Urine Nitrite Positive H Urine Bilirubin Negative Urine Urobilinogen Normal Ur Leukocyte Esterase 500 H Urine RBC 0-5 SEEN Urine WBC 25-50 SEEN Ur Squamous Epith Cells 5-10 SEEN Urine Bacteria 4+ Urine Mucus 0 SEEN 01/17/22 16:12 WBC RBC Hgb Hct MCV MCH MCHC RDW Std Deviation RDW Coeff of Jona Plt Count MPV Immature Gran % (Auto) Neut % (Auto) Lymph % (Auto) [place] % (Auto) Eos % (Auto) Baso % (Auto) Absolute Neuts (auto) Absolute Lymphs (auto) Nucleated RBC % Sodium Potassium Chloride Carbon Dioxide Anion Gap BUN Creatinine Estim Creat Clear Calc Est GFR (MDRD) Af Amer Est GFR (MDRD) Non-Af BUN/Creatinine Ratio Glucose Lactic Acid 3.1 H* Calcium Urine Color Urine Clarity Urine pH Ur Specific [place] Urine Protein Urine Glucose (UA) Urine Ketones Urine Occult Blood Urine Nitrite Urine Bilirubin Urine Urobilinogen Ur Leukocyte Esterase Urine RBC Urine WBC Ur Squamous Epith Cells Urine Bacteria Urine Mucus Discharge Plan Dx/Rx/DC Orders Clinical Impression: SIRS (systemic inflammatory response syndrome), Leukocytosis, Urinary tract infection Disposition Disposition: Acute Care Hospital [facility] Discharge Date/Time: 01/17/22 18:29
[2022-01-17] MEDS: Morphine 4 MG/ML Syringe IV (16:12)
[2022-01-17 16:34] LABS: Absolute Lymphocyte Count 3.77 X10^3/uL (0.83-4.51); Absolute Neutrophil Count 9.4 X10^3/uL (2.0-7.7); Basophil# 0.05 X10^3/uL; Basophil% 0.3 % (0-1); Eosinophil# 0.14 X10^3/uL; Hematocrit 45.1 % (37-47); Hemoglobin 14.8 g/dL (12.0-15.0); Lymphocyte # 3.77 X10^3/ul (0.83-4.51); Lymphocyte % 26.2 % (19-41); Mean Corp Hgb Conc 32.8 g/dL (32-36); Mean Corpuscular Hgb 30.6 pg (27.0-32.0); Mean Corpuscular Volume 93.4 fL (81-99); Monocyte# 0.95 X10^3/uL; Monocyte% 6.6 % (0-10); NRBC Flagged by Analyzer 0 % (0-5); Neutrophil # 9.39 X10^3/uL (2.7-7.7); Neutrophil % 65.4 % (47-70); Platelet Count 339 K/mm3 (150-450); RBC Distribution Width CV 13.9 % (11.6-14.6); RBC Distribution Width SD 47.9 fl (35.1-43.9); Red Blood Count 4.83 M/mm3 (4.2-5.4); White Blood Count 14.4 K/mm3 (4.4-11.0)
[2022-01-17 16:43] VITALS: BP 146/70
[2022-01-17 16:49] LABS: Anion Gap 7 (5-15); BUN 8 mg/dL (7-18); BUN/Creat Ratio 10.4 RATIO (10-20); Calcium,Total 8.9 mg/dL (8.5-10.1); Chloride 108 mmol/L (98-107); Creatinine, Serum 0.77 mg/dL (0.55-1.02); EST Glomerular Filtration Rate 80 mL/min (>60); Est Glom Filt Rate - Afr Amer 97 mL/min (>60); Estimated Creatinine Clearance 71.78 ml/min; Glucose 102 mg/dL (74-106); Potassium 3.4 mmol/L (3.5-5.1); Sodium Level 142 mmol/L (136-145)
[2022-01-17 17:12] LABS: Lactic Acid 3.1 mmol/L (0.4-1.9)
--- NOTE | 2022-01-17 17:50 | HP.PCM.HOS_ITS ---
[facility] - General General Date of Service: 01/17/22 Chief Complaint: dysuria. fatigue. [facility] Narrative DAMIEN BROWNLEE, is a 66 F who presents with a 4-month long history of dealing with urinary tract infection. Patient has been on numerous oral regimens most recently with nitrofurantoin. Patient has had culture showing from the the patient had ESBL E. coli that was sensitive to nitrofurantoin but I despite taking that, patient has not felt any better. Patient is nauseated, fatigued. She presented to the emergency room and the urinalysis was consistent with urinary tract infection was ordered IV gentamicin. Patient has not seen infectious disease doctor nor has she been on IV antibiotics for a urinary tract infection in the past [facility] Medical History Anxiety and depression Chronic bronchitis Chronic UTI COPD (chronic obstructive pulmonary disease) Depression Diabetes type 2, controlled Diarrhea Essential (primary) hypertension Frequent headaches Gastritis Gastroparesis GI problem Leukocytosis Nausea Panic disorder with agoraphobia Seasonal allergies Secondary polycythemia Urinary incontinence Vision problem Home Medications omeprazole 20 mg capsule,delayed release 40 mg PO DAILY cap 11/18/17 [History Last Taken 01/07/19] promethazine 25 mg PO Q6H PRN PRN 01/09/20 [History Last Taken Unknown] carvedilol 6.25 mg PO BID 01/02/22 [History Last Taken Unknown] escitalopram oxalate 20 mg PO DAILY 01/02/22 [History Last Taken Unknown] insulin lispro [Humalog KwikPen Insulin] See Protocol SUBCUT TID 01/02/22 [History Last Taken Unknown] naproxen [Naprosyn] 500 mg PO BID PRN #20 tab 01/02/22 [Rx Last Taken Unknown] ondansetron 4 mg PO Q8H PRN #10 tab 01/02/22 [Rx Last Taken Unknown] atorvastatin 20 mg tablet 20 mg PO DAILY 01/11/22 [History Last Taken Unknown] cholecalciferol (vitamin D3) 50 mcg (2,000 unit) capsule 50 mcg PO DAILY 01/11/22 [History Last Taken Unknown] gabapentin 400 mg capsule 400 mg PO TID 01/11/22 [History Last Taken Unknown] insulin glargine U-300 conc 300 unit/mL (3 mL) subcutaneous pen 80 unit SUBCUT DAILY ml 01/11/22 [History Last Taken Unknown] quetiapine 300 mg tablet 300 mg PO QHS 01/11/22 [History Last Taken Unknown] scopolamine base 1 mg over 3 days transdermal patch 1 patch TRANSDERMAL Q3D PRN 01/11/22 [History Last Taken Unknown] albuterol sulfate 90 inh INHALATION Q4H PRN PRN 01/17/22 [History Last Taken Unknown] buspirone 10 mg PO TID 01/17/22 [History Last Taken Unknown] fluticasone furoate-vilanterol [Breo Ellipta] 1 ea INHALATION DAILY 01/17/22 [History Last Taken Unknown] Allergy/AdvReac Type Severity Reaction Status Date / Time Penicillins Allergy Hives Verified 01/17/22 15:03 Sulfa (Sulfonamide Allergy Hives Verified 01/17/22 15:03 Antibiotics) varenicline [From Chantix] Allergy Other Verified 01/17/22 15:03 Family History Brother Diabetes Hypertension Surgical History bladder sling H/O tubal ligation Hx of cholecystectomy S/P complete hysterectomy S/P ORIF (open reduction internal fixation) fracture Social History Smoking Status: Current every day smoker tobacco type: cigarettes second hand exposure: Yes alcohol intake: never substance use type: does not use ROS ROS Narrative No rashes. No COVID-19 exposure. All review of systems were negative except as mentioned above in the history of present illness and the other review of sy stems. Vital Signs Vital Signs Vital Signs: 01/17/22 15:00 01/17/22 16:43 Temperature 36.8 C Temperature Source Temporal Pulse Rate 112 H Respiratory Rate 18 Blood Pressure 193/100 H 146/70 H Blood Pressure Mean 131 95 Pulse Ox 95 Oxygen Delivery Method Room Air Weight Weight: 109.996 kg Body Mass Index (BMI) 38.0 Physical Exam Const alert General Appearance: cooperative Resp normal respiratory effort, no retractions, no use of accessory muscles and clear to auscultation bilaterally Cardio regular rate, regular rhythm, S1 normal heart sound and S2 normal heart sound GI normal to inspection, nondistended, normoactive bowel sounds, soft to palpation and non-tender Extremity normal to inspection Skin no rashes or lesions noted Psych affect normal Results Lab / Micro Data Attestation: I reviewed the patient's lab results. Result Diagrams: 01/17/22 16:12 01/17/22 16:12 Labs: Laboratory Results - last 24 hr 01/17/22 15:10: Urine Color Yellow, Urine Clarity Cloudy, Urine pH 6.0, Ur Specific [place] 1.020, Urine Protein 30 H, Urine Glucose (UA) 50 H, Urine K etones 5 H, Urine Occult Blood 25 H, Urine Nitrite Positive H, Urine Bilirubin Negative, Urine Urobilinogen Normal, Ur Leukocyte Esterase 500 H, Urine RBC 0-5 SEEN, Urine WBC 25-50 SEEN, Ur Squamous Epith Cells 5-10 SEEN, Urine Bacteria 4+, Urine Mucus 0 SEEN 01/17/22 16:12: WBC 14.4 H, RBC 4.83, Hgb 14.8, Hct 45.1, MCV 93.4, MCH 30.6, MCHC 32.8, RDW Std Deviation 47.9 H, RDW Coeff of Jona 13.9, Plt Count 339, MPV 9.0, Immature Gran % (Auto) 0.500, Neut % (Auto) 65.4, Lymph % (Auto) 26.2, [place] % (Auto) 6.6, Eos % (Auto) 1.0, Baso % (Auto) 0.3, Absolute Neuts (auto) 9.4 H, Absolute Lymphs (auto) 3.77, Nucleated RBC % 0 01/17/22 16:12: Sodium 142, Potassium 3.4 L, Chloride 108 H, Carbon Dioxide 27.0, Anion Gap 7, BUN 8, Creatinine 0.77, Estim Creat Clear Calc 71.78, Est GFR (MDRD) Af Amer 97, Est GFR (MDRD) Non-Af 80, BUN/Creatinine Ratio 10.4, Glucose 102, Calcium 8.9 01/17/22 16:12: Lactic Acid 3.1 H* Assessment & Plan Assessment/Plan (1) UTI due to extended-spectrum beta lactamase (ESBL) producing Escherichia coli: PLAN: 1. E. coli ESBL UTI * Symptoms have been ongoing for 4 months and according the patient has not abated. Patient has tried different antibiotics with no help and most recently with nitrofurantoin. Culture did show that it was sensitive to it but she has had no provement in the urinalysis is positive for urinary tract infection. * Patient received gentamicin in the emergency room I will not continue that would put her on cefepime. Patient has a reported penicillin allergy where she developed hives as a child. Unlikely that is an active allergy at this point time but will utilize cefepime for now. * She will need a PICC line * Case management to facilitate antibiotic coverage. Patient does have medical insurance * Patient made aware that she may be here over the weekend unless we get things expedited by tomorrow. 2. Diabetes mellitus type 2 * Insulin-dependent * Continue with glargine and sliding scale insulin 3. VTE prophylaxis with low jean carlos weight heparin Patient is unvaccinated for COVID-19. Strongly advised that she do get the vaccine and that she could be administered that while she is here. Explained to her that she is higher risk given her morbid obesity, diabetes and COPD. She seemed open to it but we can we ask her was closer to discharge should be willing. Charges/Coding Visit Charges Inpatient E&M: 33461 Init Hosp L2
[2022-01-17 18:38] VITALS: BMI 38.9
[2022-01-17 18:45] VITALS: BP 133/79; PULSE 87; RESP 18; TEMP 37.1; O2SAT 93
[2022-01-17] MEDS: proMETHazine 25 MG Tablet PO (19:21)
[2022-01-17] MEDS: 0.9% Saline Lock 10 ML Syringe IV (19:21)
[2022-01-17 20:24] LABS: Reflex Lactate? Y
[2022-01-17 21:10] LABS: Absolute Lymphocyte Count 4.82 X10^3/uL (0.83-4.51); Absolute Neutrophil Count 9.4 X10^3/uL (2.0-7.7); Basophil# 0.06 X10^3/uL; Basophil% 0.4 % (0-1); Eosinophil# 0.18 X10^3/uL; Eosinophils% 1.2 % (0-5); Hematocrit 40.3 % (37-47); Hemoglobin 13.2 g/dL (12.0-15.0); Lymphocyte # 4.82 X10^3/ul (0.83-4.51); Lymphocyte % 31.3 % (19-41); Mean Corp Hgb Conc 32.8 g/dL (32-36); Mean Corpuscular Hgb 30.6 pg (27.0-32.0); Mean Corpuscular Volume 93.5 fL (81-99); Mean Platelet Vol. 8.8 fl (6.2-12.0); Monocyte# 0.87 X10^3/uL; Monocyte% 5.7 % (0-10); NRBC Flagged by Analyzer 0 % (0-5); Neutrophil # 9.36 X10^3/uL (2.7-7.7); Neutrophil % 60.8 % (47-70); Platelet Count 283 K/mm3 (150-450); RBC Distribution Width CV 13.9 % (11.6-14.6); RBC Distribution Width SD 47.5 fl (35.1-43.9); Red Blood Count 4.31 M/mm3 (4.2-5.4); White Blood Count 15.4 K/mm3 (4.4-11.0)
[2022-01-17 21:40] LABS: Lactic Acid 2.2 mmol/L (0.4-1.9)
[2022-01-17] MEDS: QUEtiapine 100 MG Tablet 300 MG PO (21:53)
[2022-01-17] MEDS: Atorvastatin Calcium 20 MG Tablet PO (21:53)
[2022-01-17] MEDS: Carvedilol 6.25 MG Tablet PO (21:53)
[2022-01-17] MEDS: busPIRone 5 MG Tablet 10 MG PO (21:53)
[2022-01-17] MEDS: Gabapentin 400 MG Capsule PO (21:53)
[2022-01-17] MEDS: Ibuprofen 400 MG Tablet PO (21:57)
[2022-01-18] VITALS (8 sets, daily range): BP systolic 100–149; BP diastolic 52–78; PULSE 69–88; RESP 16–20; TEMP 36.6–37; O2SAT 93–96
[2022-01-18] MEDS: Ibuprofen 400 MG Tablet PO ×2 (04:27→20:20)
[2022-01-18] MEDS: busPIRone 5 MG Tablet 10 MG PO ×3 (06:00→21:39)
[2022-01-18] MEDS: Gabapentin 400 MG Capsule PO ×3 (06:00→21:38)
[2022-01-18] MEDS: Insulin Lispro 100 UNIT/ML INSULN.PEN SC ×2 (06:02→12:09)
[2022-01-18 06:24] LABS: Absolute Lymphocyte Count 3.57 X10^3/uL (0.83-4.51); Absolute Neutrophil Count 6.5 X10^3/uL (2.0-7.7); Basophil# 0.03 X10^3/uL; Basophil% 0.3 % (0-1); Eosinophil# 0.19 X10^3/uL; Eosinophils% 1.7 % (0-5); Hematocrit 41.3 % (37-47); Hemoglobin 13.1 g/dL (12.0-15.0); Lymphocyte # 3.57 X10^3/ul (0.83-4.51); Lymphocyte % 31.9 % (19-41); Mean Corp Hgb Conc 31.7 g/dL (32-36); Mean Corpuscular Hgb 30.3 pg (27.0-32.0); Mean Corpuscular Volume 95.4 fL (81-99); Mean Platelet Vol. 9.2 fl (6.2-12.0); Monocyte# 0.81 X10^3/uL; Monocyte% 7.2 % (0-10); NRBC Flagged by Analyzer 0 % (0-5); Neutrophil % 58.2 % (47-70); Platelet Count 290 K/mm3 (150-450); RBC Distribution Width CV 14.1 % (11.6-14.6); RBC Distribution Width SD 49.7 fl (35.1-43.9); Red Blood Count 4.33 M/mm3 (4.2-5.4); White Blood Count 11.2 K/mm3 (4.4-11.0)
[2022-01-18] MEDS: Albuterol 2.5 MG/3 ML VIAL.NEB. INHALATION ×3 (06:40→19:12)
[2022-01-18] MEDS: Budesonide Respules 0.5 MG/2 ML AMPUL.NEB. INHALATION ×2 (06:40→19:13)
[2022-01-18 06:47] LABS: Anion Gap 7 (5-15); BUN 10 mg/dL (7-18); BUN/Creat Ratio 12.8 RATIO (10-20); Calcium,Total 7.7 mg/dL (8.5-10.1); Chloride 110 mmol/L (98-107); Creatinine, Serum 0.78 mg/dL (0.55-1.02); EST Glomerular Filtration Rate 79 mL/min (>60); Est Glom Filt Rate - Afr Amer 95 mL/min (>60); Estimated Creatinine Clearance 70.86 ml/min; Glucose 227 mg/dL (74-106); Potassium 3.8 mmol/L (3.5-5.1); Sodium Level 140 mmol/L (136-145)
--- NOTE | 2022-01-18 07:10 | PN.HOSP_ITS ---
Subjective Subjective Still with abdominal pain. Abdominal distention. Objective Data Objective Data Vital Signs: Vital Signs Temp Pulse Resp BP Pulse Ox 36.6 C 69 16 100/61 96 01/18/22 06:14 01/18/22 06:14 01/18/22 06:14 01/18/22 06:14 01/18/22 06:14 Oxygen Delivery Method Room Air Weight: 112.9 kg Body Mass Index (BMI) 38.9 Intake & Output: Intake and Output for Last 24 Hours 01/16/22 01/17/22 01/18/22 23:59 23:59 23:59 Intake Total 1109.00 / 1109.00 600 / 600 Balance 1109.00 / 1109.00 600 / 600 Lab / Micro Data Result Diagrams: 01/18/22 05:50 01/18/22 05:50 Labs: Laboratory Results - last 24 hr 01/17/22 15:10: Urine Color Yellow, Urine Clarity Cloudy, Urine pH 6.0, Ur Specific [place] 1.020, Urine Protein 30 H, Urine Glucose (UA) 50 H, Urine Ketones 5 H, Urine Occult Blood 25 H, Urine Nitrite Positive H, Urine Bilirubin Negative, Urine Urobilinogen Normal, Ur Leukocyte Esterase 500 H, Urine RBC 0-5 SEEN, Urine WBC 25-50 SEEN, Ur Squamous Epith Cells 5-10 SEEN, Urine Bacteria 4+, Urine Mucus 0 SEEN 01/17/22 16:12: WBC 14.4 H, RBC 4.83, Hgb 14.8, Hct 45.1, MCV 93.4, MCH 30.6, MCHC 32.8, RDW Std Deviation 47.9 H, RDW Coeff of Jona 13.9, Plt Count 339, MPV 9.0, Immature Gran % (Auto) 0.500, Neut % (Auto) 65.4, Lymph % (Auto) 26.2, [place] % (Auto) 6.6, Eos % (Auto) 1.0, Baso % (Auto) 0.3, Absolute Neuts (auto) 9.4 H, Absolute Lymphs (auto) 3.77, Nucleated RBC % 0 01/17/22 16:12: Sodium 142, Potassium 3.4 L, Chloride 108 H, Carbon Dioxide 27.0, Anion Gap 7, BUN 8, Creatinine 0.77, Estim Creat Clear Calc 71.78, Est GFR (MDRD) Af Amer 97, Est GFR (MDRD) Non-Af 80, BUN/Creatinine Ratio 10.4, Glucose 102, Calcium 8.9 01/17/22 16:12: Lactic Acid 3.1 H* 01/17/22 20:57: WBC 15.4 H, RBC 4.31, Hgb 13.2, Hct 40.3, MCV 93.5, MCH 30.6, MCHC 32.8, RDW Std Deviation 47.5 H, RDW Coeff of Jona 13.9, Plt Count 283, MPV 8.8, Immature Gran % (Auto) 0.600, Neut % (Auto) 60.8, Lymph % (Auto) 31.3, [place] % (Auto) 5.7, Eos % (Auto) 1.2, Baso % (Auto) 0.4, Absolute Neuts (auto) 9.4 H, Absolute Lymphs (auto) 4.82 H, Nucleated RBC % 0 01/17/22 20:57: Lactic Acid 2.2 H* 01/18/22 05:50: WBC 11.2 H, RBC 4.33, Hgb 13.1, Hct 41.3, MCV 95.4, MCH 30.3, MCHC 31.7 L, RDW Std Deviation 49.7 H, RDW Coeff of Jona 14.1, Plt Count 290, MPV 9.2, Immature Gran % (Auto) 0.700, Neut % (Auto) 58.2, Lymph % (Auto) 31.9, [place] % (Auto) 7.2, Eos % (Auto) 1.7, Baso % (Auto) 0.3, Absolute Neuts (auto) 6.5, Absolute Lymphs (auto) 3.57, Nucleated RBC % 0 01/18/22 05:50: Sodium 140, Potassium 3.8, Chloride 110 H, Carbon Dioxide 23.0, Anion Gap 7, BUN 10, Creatinine 0.78, Estim Creat Clear Calc 70.86, Est GFR (M DRD) Af Amer 95, Est GFR (MDRD) Non-Af 79, BUN/Creatinine Ratio 12.8, Glucose 227 H, Calcium 7.7 L Physical Exam Const alert and no apparent distress HEENT head/scalp atraumatic Head and Scalp: normocephalic Resp normal respiratory effort, no retractions, no use of accessory muscles and clear to auscultation bilaterally Cardio regular rate, regular rhythm, S1 normal heart sound and S2 normal heart sound GI normal to inspection, nondistended, normoactive bowel sounds, soft to palpation, non-tender and non-distended GI Narrative: distended. tender. Psych affect normal Assessment & Plan Assessment/Plan (1) UTI due to extended-spectrum beta lactamase (ESBL) producing Escherichia coli: PLAN: 1. E. coli ESBL UTI * Symptoms have been ongoing for 4 months and according the patient has not abated. Patient has tried different antibiotics with no help and most recently with nitrofurantoin. Culture did show that it was sensitive to it but she has had no provement in the urinalysis is positive for urinary tract infection. * Patient received gentamicin in the emergency room I will not continue that would put her on cefepime. Patient has a reported penicillin allergy where she developed hives as a child. Unlikely that is an active allergy at this point time but will utilize cefepime for now. * She will need a PICC line * Case management to facilitate antibiotic coverage. Patient does have medical insurance * UCx from the was ESBL E. coli. Follow up cultures from the . * Patient states that she is only on 4 days of Macrobid. Not sure this is actually an antibiotic failure as patient was only on it for 4 days. * Follow up cultures 2. Abdominal pain * check xray to eval for ileus/SBO * consider CT depending on findings. 3. Diabetes mellitus type 2 * Insulin-dependent * Continue with glargine and sliding scale insulin 3. VTE prophylaxis with LMWH Patient is unvaccinated for COVID-19. Strongly advised that she do get the vaccine and that she could be administered that while she is here. Explained to her that she is higher risk given her morbid obesity, diabetes and COPD. She seemed open to it but we can we ask her was closer to discharge should be willing. Charges/Coding Visit Charges Inpatient E&M: 23178 Subs Hosp L2
[2022-01-18] MEDS: Insulin Glargine-YFGN 100 UNIT/ML Pen 80 UNIT SC (09:29)
[2022-01-18 09:40] LABS: Bedside Glucose 230 mg/dL (74-106)
[2022-01-18] MEDS: Carvedilol 6.25 MG Tablet PO ×2 (09:40→21:40)
[2022-01-18] MEDS: Pantoprazole Sodium 40 MG Tablet PO (09:40)
[2022-01-18] MEDS: Enoxaparin 40 MG/0.4 ML Syringe SC (09:40)
[2022-01-18] MEDS: Escitalopram Oxalate 20 MG Tablet PO (09:40)
[2022-01-18] MEDS: proMETHazine 25 MG Tablet PO ×2 (09:41→20:20)
[2022-01-18] MEDS: Cholecalciferol (VIT D3) 25 MCG TABLET (1,000 UNITS) 50 MCG PO (09:41)
--- NOTE | 2022-01-18 09:45 | CASEMGMT ---
RN RONA Face to Face with patient for initial transition planning/care coordination assessment. RN CM introduced self and role at [facility]. Patient lying in bed, alert and oriented. Patient willing to participate in assessment and is able to answer all questions appropriately. Care providers, pharmacy, and demographics verified. Patient wishes to discharge home. Discussed possible IV ATBs at discharge and options of outpatient infustion, HHC, vs SNF. Patient to discuss with daughter if they feel comfortable completing IV ATBs at home. Patient states she has no further needs or concerns at this time. CM to follow for discharge planning needs that may arise. PCP: Aarti Specialists: Johnathan legislative analyst Preferred Pharmacy: [facility] Insurance: [employer] Prescription Benefit: yes Living Will/HPOA: none LNOK: daughter, ex- Living Arrangements: Patient lives with daughter, ex-, and granddaughter in a mobile home with 3 steps and railing to enter the home. Patient states she is independent at home. Transportation: self, daughter DME/HHC: Patient states she has nebulizer at home. Patient denies previous SNF. Patient states she has [facility] HHC in the past. Disposition Plan: TBD anticipate patient to discharge home with possible IV ATBs. HHC vs Outpatient. Rachel LEVINE, RN, CM
--- NOTE | 2022-01-18 10:16 | RAD_ITS ---
HISTORY: abdominal pain. TECHNIQUE: XR abdomen 3 views. COMPARISON: CT 01/02/2022. FINDINGS: BOWEL GAS PATTERN: Gaseous distention of the stomach. No dilated small bowel loops identified. Moderate stool throughout the colon FREE AIR: Not assessed on supine view. CALCIFICATIONS: Small pelvic phlebolith noted. BONES AND SOFT TISSUES: Mild degenerative changes of the osseous structures. RAD/Abdomen Single View (Portable) IMPRESSION: Moderate stool throughout the colon. Electronically Signed: Akosua Hadley MD at 10:52 EDT ,
--- NOTE | 2022-01-18 10:29 | NURSING ---
off unit for x-ray
[2022-01-18 11:00] LABS: Bedside Glucose 236 mg/dL (74-106)
[2022-01-18] MEDS: Polyethylene Glycol 3350 17 GM PACKET PO (15:57)
[2022-01-18] MEDS: Bisacodyl 5 MG Tablet 10 MG PO (15:57)
[2022-01-18 16:06] LABS: Bedside Glucose 214 mg/dL (74-106)
[2022-01-18] MEDS: 0.9% Saline Lock 10 ML Syringe IV (21:38)
[2022-01-18] MEDS: Atorvastatin Calcium 20 MG Tablet PO (21:39)
[2022-01-18] MEDS: QUEtiapine 100 MG Tablet 300 MG PO (21:41)
[2022-01-18 21:50] LABS: Bedside Glucose 244 mg/dL (74-106)
[2022-01-19 02:50] VITALS: BP 120/69; PULSE 71; RESP 18; TEMP 36.6; O2SAT 97
[2022-01-19] MEDS: 0.9% Saline Lock 10 ML Syringe IV ×3 (02:56→10:11)
[2022-01-19] MEDS: Ibuprofen 400 MG Tablet PO ×3 (02:56→19:44)
[2022-01-19] MEDS: proMETHazine 25 MG Tablet PO (02:56)
[2022-01-19] MEDS: busPIRone 5 MG Tablet 10 MG PO ×3 (06:43→21:50)
[2022-01-19] MEDS: Gabapentin 400 MG Capsule PO ×3 (06:43→21:49)
[2022-01-19] MEDS: Insulin Lispro 100 UNIT/ML INSULN.PEN SC ×3 (06:44→16:17)
[2022-01-19 06:50] LABS: Bedside Glucose 166 mg/dL (74-106)
[2022-01-19] MEDS: Budesonide Respules 0.5 MG/2 ML AMPUL.NEB. INHALATION (06:56)
[2022-01-19] MEDS: Albuterol 2.5 MG/3 ML VIAL.NEB. INHALATION ×2 (06:56→13:17)
[2022-01-19 06:57] VITALS: PULSE 65; RESP 18
[2022-01-19] MEDS: Ondansetron 4 MG/2 ML Vial IV ×2 (08:54→21:56)
[2022-01-19 08:57] VITALS: BP 135/71; PULSE 75; RESP 16; TEMP 36.8; O2SAT 95
--- NOTE | 2022-01-19 09:08 | PN.HOSP_ITS ---
Subjective Subjective Patient seen and examined. She complained of nausea and generally feeling unwell this morning. She denied any fever, chills chest pain, palpitations or dizziness or abdominal pain. She did admit to dysuria. Review of systems is otherwise negative. Objective Data Objective Data Vital Signs: Vital Signs Temp Pulse Resp BP Pulse Ox 98.2 F 75 16 135/71 H 95 01/19/22 08:57 01/19/22 08:57 01/19/22 08:57 01/19/22 08:57 01/19/22 08:57 Oxygen Delivery Method Room Air Weight: 248 lb 14.43 oz Body Mass Index (BMI) 38.9 Intake & Output: Intake and Output for Last 24 Hours 01/17/22 01/18/22 01/19/22 23:59 23:59 23:59 Intake Total 1109.00 / 1109.00 1525 / 1525 1000 / 1000 Balance 1109.00 / 1109.00 1525 / 1525 1000 / 1000 Lab / Micro Data Result Diagrams: 01/18/22 05:50 01/18/22 05:50 Labs: Laboratory Results - last 24 hr 01/18/22 06:01: POC Glucose 230 H 01/18/22 10:58: POC Glucose 236 H 01/18/22 16:00: POC Glucose 214 H 01/18/22 21:37: POC Glucose 244 H 01/19/22 06:42: POC Glucose 166 H Micro: Microbiology 01/17/22 17:20 Urine, Clean Catch Urine Culture - Preliminary Presumptive E. coli Radiography Diagnostic Testing: Radiology Impression KUB X-Ray 01/18/22 10:16 IMPRESSION: Moderate stool throughout the colon. Electronically Signed: Akosua Hadley MD at 10:52 EDT , Physical Exam Const alert, oriented x3 and no apparent distress Exam Limitations: no limitations HEENT head/scalp atraumatic and moist oral mucous membranes Head and Scalp: normocephalic Eyes PERRL, EOMs intact bilaterally and conjunctivae normal Neck no lymphadenopathy, supple and no JVD Resp normal respiratory effort, no retractions, no use of accessory muscles and clear to auscultation bilaterally Cardio regular rate, regular rhythm, S1 normal heart sound, S2 normal heart sound and no murmurs GI normal to inspection, nondistended, normoactive bowel sounds, soft to palpation, non-tender and non-distended GI Narrative: obese abdomen Extremity normal to inspection, full ROM and no clubbing, cyanosis or edema Peripheral Pulses: Yes pulses 2+ throughout Skin no rashes or lesions noted Neuro oriented x3, CN's II-XII intact bilaterally and moves all extremities Sensorium / Orientation: awake and alert Psych affect normal Assessment & Plan Assessment/Plan (1) Urinary tract infection: (2) UTI due to extended-spectrum beta lactamase (ESBL) producing Escherichia coli: PLAN: Recurrent UTI due to ESBL E coli * has been treated several times on outpatient basis, but this was unsuccessful * currently on IV cefepime * will consult ID; she has never been evaluated by ID. ID will see on Friday * await urine cultures * on IV phenergan for nausea * was treated with 4 days of macrobid on outpatient basis * #TYpe 2 diabetes mellitus * on lantus 80 units daily. * ISS. Accuchecks ACHS * #Hypertension; on carvedilol #COPD: on breathing treatment with bronchodilators. Not in exacerbation. #Hypertension; on carvedilol #Fibromyalgia: on gabapentin #Depression:L on lexapro adn wellbutrin. DVT prophylaxis: lovenox Charges/Coding Visit Charges Inpatient E&M: 38101 Subs Hosp L2
[2022-01-19] MEDS: Pantoprazole Sodium 40 MG Tablet PO (10:10)
[2022-01-19] MEDS: Carvedilol 6.25 MG Tablet PO ×2 (10:11→21:49)
[2022-01-19] MEDS: Enoxaparin 40 MG/0.4 ML Syringe SC (10:11)
[2022-01-19] MEDS: Escitalopram Oxalate 20 MG Tablet PO (10:11)
[2022-01-19] MEDS: Polyethylene Glycol 3350 17 GM PACKET PO (10:11)
[2022-01-19] MEDS: Cholecalciferol (VIT D3) 25 MCG TABLET (1,000 UNITS) 50 MCG PO (10:11)
[2022-01-19] MEDS: Insulin Glargine-YFGN 100 UNIT/ML Pen 80 UNIT SC (10:14)
[2022-01-19] MEDS: buPROPion (XL) 150 MG TABLET.XL PO (10:21)
[2022-01-19 11:36] LABS: Bedside Glucose 241 mg/dL (74-106)
[2022-01-19 13:19] VITALS: PULSE 75; RESP 18
[2022-01-19 14:19] VITALS: BP 126/76; PULSE 69; RESP 18; TEMP 37; O2SAT 94
[2022-01-19 16:26] LABS: Bedside Glucose 249 mg/dL (74-106)
[2022-01-19 20:05] VITALS: BP 143/70; PULSE 72; RESP 18; TEMP 36.8; O2SAT 94
--- NOTE | 2022-01-19 20:15 | CPS ---
Pt refused breathing treatment because she was under the impression that the nebulizer that she used earlier today was single use and since she already used it it was unsanitary to use it again. I attempted to re-educate this patient on the aerosols and the use of the nebulizer and explained that it is indeed okay to use them more than one time. I also offered to go get the patient a new nebulizer to take her treatments in at this time and she refused and stopped replying to my questions. No treatments given at this time. RN notified of this encounter.
[2022-01-19] MEDS: Atorvastatin Calcium 20 MG Tablet PO (21:49)
[2022-01-19] MEDS: QUEtiapine 100 MG Tablet 300 MG PO (22:00)
[2022-01-19 22:16] LABS: Bedside Glucose 180 mg/dL (74-106)
[2022-01-20] VITALS (7 sets, daily range): BP systolic 129–144; BP diastolic 70–76; PULSE 61–73; RESP 16–18; TEMP 36.6–37.1; O2SAT 94–96
[2022-01-20 06:21] LABS: Absolute Neutrophil Count 5.4 X10^3/uL (2.0-7.7); Basophil# 0.06 X10^3/uL; Basophil% 0.6 % (0-1); Eosinophil# 0.14 X10^3/uL; Eosinophils% 1.3 % (0-5); Hematocrit 44.2 % (37-47); Hemoglobin 14.2 g/dL (12.0-15.0); Mean Corp Hgb Conc 32.1 g/dL (32-36); Mean Corpuscular Hgb 30.6 pg (27.0-32.0); Mean Corpuscular Volume 95.3 fL (81-99); Mean Platelet Vol. 9.7 fl (6.2-12.0); Monocyte# 0.71 X10^3/uL; Monocyte% 6.8 % (0-10); NRBC Flagged by Analyzer 0 % (0-5); Neutrophil # 5.42 X10^3/uL (2.7-7.7); Neutrophil % 51.6 % (47-70); Platelet Count 297 K/mm3 (150-450); RBC Distribution Width CV 13.8 % (11.6-14.6); RBC Distribution Width SD 48.7 fl (35.1-43.9); Red Blood Count 4.64 M/mm3 (4.2-5.4); White Blood Count 10.5 K/mm3 (4.4-11.0)
[2022-01-20] MEDS: Insulin Lispro 100 UNIT/ML INSULN.PEN SC ×3 (06:26→16:51)
[2022-01-20] MEDS: Ibuprofen 400 MG Tablet PO ×2 (06:26→22:31)
[2022-01-20] MEDS: busPIRone 5 MG Tablet 10 MG PO ×3 (06:27→22:34)
[2022-01-20] MEDS: Gabapentin 400 MG Capsule PO ×3 (06:27→22:39)
[2022-01-20 06:36] LABS: Bedside Glucose 177 mg/dL (74-106)
[2022-01-20 06:49] LABS: Anion Gap 4 (5-15); BUN 14 mg/dL (7-18); Calcium,Total 8.8 mg/dL (8.5-10.1); Chloride 109 mmol/L (98-107); Creatinine, Serum 0.74 mg/dL (0.55-1.02); EST Glomerular Filtration Rate 84 mL/min (>60); Est Glom Filt Rate - Afr Amer 102 mL/min (>60); Estimated Creatinine Clearance 74.69 ml/min; Glucose 179 mg/dL (74-106); Potassium 4.1 mmol/L (3.5-5.1); Sodium Level 140 mmol/L (136-145)
[2022-01-20] MEDS: Budesonide Respules 0.5 MG/2 ML AMPUL.NEB. INHALATION ×2 (07:29→19:05)
[2022-01-20] MEDS: Albuterol 2.5 MG/3 ML VIAL.NEB. INHALATION ×3 (07:29→19:05)
--- NOTE | 2022-01-20 08:47 | PN.HOSP_ITS ---
Subjective Subjective Patient seen and examined. She complains of generalised pain and weaknss. She still complains of nausea but denies any vomiting. She still complains of lower abdominal pain and dysuria. Review of systems is otherwise negative. Objective Data Objective Data Vital Signs: Vital Signs Temp Pulse Resp BP Pulse Ox 97.9 F 61 16 129/70 H 95 01/20/22 03:00 01/20/22 07:32 01/20/22 07:32 01/20/22 03:00 01/20/22 03:00 Oxygen Delivery Method Room Air Weight: 248 lb 14.43 oz Body Mass Index (BMI) 38.9 Intake & Output: Intake and Output for Last 24 Hours 01/18/22 01/19/22 01/20/22 23:59 23:59 23:59 Intake Total 1525 / 1525 2671.25 / 2671.25 Output Total 675 / 675 Balance 1525 / 1525 1995. / Lab / Micro Data Result Diagrams: 01/20/22 05:36 01/20/22 05:36 Labs: Laboratory Results - last 24 hr 01/19/22 11:27: POC Glucose 241 H 01/19/22 16:16: POC Glucose 249 H 01/19/22 21:48: POC Glucose 180 H 01/20/22 05:36: WBC 10.5, RBC 4.64, Hgb 14.2, Hct 44.2, MCV 95.3, MCH 30.6, MCHC 32.1, RDW Std Deviation 48.7 H, RDW Coeff of Jona 13.8, Plt Count 297, MPV 9.7, Immature Gran % (Auto) 0.700, Neut % (Auto) 51.6, Lymph % (Auto) 39.0, [place] % (Auto) 6.8, Eos % (Auto) 1.3, Baso % (Auto) 0.6, Absolute Neuts (auto) 5.4, Absolute Lymphs (auto) 4.10, Nucleated RBC % 0 01/20/22 05:36: Sodium 140, Potassium 4.1, Chloride 109 H, Carbon Dioxide 27.0, Anion Gap 4 L, BUN 14, Creatinine 0.74, Estim Creat Clear Calc 74.69, Est GFR (MDRD) Af Amer 102, Est GFR (MDRD) Non-Af 84, BUN/Creatinine Ratio 19.0, Glucose 179 H, Calcium 8.8 01/20/22 06:23: POC Glucose 177 H Micro: Microbiology 01/17/22 17:20 Urine, Clean Catch Urine Culture - Final Escherichia coli Physical Exam Const alert, oriented x3 and no apparent distress General Appearance: cooperative Exam Limitations: no limitations HEENT head/scalp atraumatic and moist oral mucous membranes Head and Scalp: normocephalic Eyes PERRL, EOMs intact bilaterally and conjunctivae normal Neck no lymphadenopathy, supple and no JVD Resp normal respiratory effort, no retractions, no use of accessory muscles and clear to auscultation bilaterally Cardio regular rate, regular rhythm, S1 normal heart sound, S2 normal heart sound and no murmurs GI normal to inspection, nondistended, normoactive bowel sounds, soft to palpation, non-tender and non-distended GI Narrative: obese abdomen Extremity normal to inspection, full ROM and no clubbing, cyanosis or edema Peripheral Pulses: Yes pulses 2+ throughout Skin no rashes or lesions noted Neuro oriented x3, CN's II-XII intact bilaterally and moves all extremities Sensorium / Orientation: awake and alert Psych Psych Narrative: flat affect Assessment & Plan Assessment/Plan (1) Urinary tract infection: (2) UTI due to extended-spectrum beta lactamase (ESBL) producing Escherichia coli: PLAN: Recurrent UTI due to ESBL E coli * remains on IV cefepime. * ID consulted; awaiting rec's * on IV phenergan and zofran for nausea * urine cultures pending * has been treated several times on outpatient basis with macrobid but this was unsuccessful * * #TYpe 2 diabetes mellitus * on lantus 80 units daily. * ISS. Accuchecks ACHS * #Hypertension; on carvedilol #COPD: on breathing treatment with bronchodilators. Not in exacerbation. #Hypertension; on carvedilol #Fibromyalgia: on gabapentin #Depression:L on lexapro and wellbutrin. DVT prophylaxis: lovenox Charges/Coding Visit Charges Inpatient E&M: 48153 Subs Hosp L2
[2022-01-20] MEDS: Enoxaparin 40 MG/0.4 ML Syringe SC (09:00)
[2022-01-20] MEDS: Pantoprazole Sodium 40 MG Tablet PO (09:00)
[2022-01-20] MEDS: buPROPion (XL) 150 MG TABLET.XL PO (09:00)
[2022-01-20] MEDS: Cholecalciferol (VIT D3) 25 MCG TABLET (1,000 UNITS) 50 MCG PO (09:00)
[2022-01-20] MEDS: Escitalopram Oxalate 20 MG Tablet PO (09:01)
[2022-01-20] MEDS: Carvedilol 6.25 MG Tablet PO ×2 (09:01→22:33)
[2022-01-20] MEDS: Polyethylene Glycol 3350 17 GM PACKET PO (09:02)
[2022-01-20] MEDS: Insulin Glargine-YFGN 100 UNIT/ML Pen 80 UNIT SC (09:02)
[2022-01-20 11:46] LABS: Bedside Glucose 190 mg/dL (74-106)
[2022-01-20] MEDS: oxyCODONE 5 MG Tablet 10 MG PO ×2 (14:20→22:32)
[2022-01-20 16:56] LABS: Bedside Glucose 165 mg/dL (74-106)
[2022-01-20] MEDS: Atorvastatin Calcium 20 MG Tablet PO (22:31)
[2022-01-20] MEDS: QUEtiapine 100 MG Tablet 300 MG PO (22:34)
[2022-01-20 22:45] LABS: Bedside Glucose 204 mg/dL (74-106)
[2022-01-21] VITALS (8 sets, daily range): BP systolic 136–152; BP diastolic 63–78; PULSE 68–75; RESP 16–18; TEMP 36.6–37.1; O2SAT 92–95
[2022-01-21 06:16] LABS: Absolute Lymphocyte Count 3.74 X10^3/uL (0.83-4.51); Absolute Neutrophil Count 5.3 X10^3/uL (2.0-7.7); Basophil# 0.06 X10^3/uL; Basophil% 0.6 % (0-1); Eosinophil# 0.15 X10^3/uL; Eosinophils% 1.5 % (0-5); Hematocrit 40.4 % (37-47); Hemoglobin 12.9 g/dL (12.0-15.0); Lymphocyte # 3.74 X10^3/ul (0.83-4.51); Lymphocyte % 37.4 % (19-41); Mean Corp Hgb Conc 31.9 g/dL (32-36); Mean Corpuscular Hgb 30.3 pg (27.0-32.0); Mean Corpuscular Volume 94.8 fL (81-99); Mean Platelet Vol. 9.4 fl (6.2-12.0); Monocyte# 0.71 X10^3/uL; Monocyte% 7.1 % (0-10); NRBC Flagged by Analyzer 0 % (0-5); Neutrophil # 5.27 X10^3/uL (2.7-7.7); Neutrophil % 52.7 % (47-70); Platelet Count 272 K/mm3 (150-450); RBC Distribution Width CV 13.7 % (11.6-14.6); RBC Distribution Width SD 47.8 fl (35.1-43.9); Red Blood Count 4.26 M/mm3 (4.2-5.4)
[2022-01-21] MEDS: oxyCODONE 5 MG Tablet 10 MG PO ×2 (06:22→17:27)
[2022-01-21] MEDS: Insulin Lispro 100 UNIT/ML INSULN.PEN SC ×3 (06:23→17:19)
[2022-01-21] MEDS: Gabapentin 400 MG Capsule PO ×3 (06:23→21:47)
[2022-01-21] MEDS: busPIRone 5 MG Tablet 10 MG PO ×3 (06:24→21:46)
[2022-01-21 06:32] LABS: Anion Gap 4 (5-15); BUN 12 mg/dL (7-18); BUN/Creat Ratio 17.8 RATIO (10-20); Calcium,Total 8.5 mg/dL (8.5-10.1); Chloride 108 mmol/L (98-107); Creatinine, Serum 0.67 mg/dL (0.55-1.02); EST Glomerular Filtration Rate 93 mL/min (>60); Est Glom Filt Rate - Afr Amer 113 mL/min (>60); Estimated Creatinine Clearance 82.49 ml/min; Glucose 176 mg/dL (74-106); Sodium Level 139 mmol/L (136-145)
[2022-01-21 06:40] LABS: Bedside Glucose 162 mg/dL (74-106)
[2022-01-21] MEDS: Budesonide Respules 0.5 MG/2 ML AMPUL.NEB. INHALATION ×2 (07:44→19:26)
[2022-01-21] MEDS: Albuterol 2.5 MG/3 ML VIAL.NEB. INHALATION ×3 (07:44→19:26)
[2022-01-21] MEDS: Insulin Glargine-YFGN 100 UNIT/ML Pen 80 UNIT SC (09:37)
[2022-01-21] MEDS: Escitalopram Oxalate 20 MG Tablet PO (09:37)
[2022-01-21] MEDS: Enoxaparin 40 MG/0.4 ML Syringe SC (09:37)
[2022-01-21] MEDS: Carvedilol 6.25 MG Tablet PO ×2 (09:37→21:46)
[2022-01-21] MEDS: Polyethylene Glycol 3350 17 GM PACKET PO (09:37)
[2022-01-21] MEDS: Cholecalciferol (VIT D3) 25 MCG TABLET (1,000 UNITS) 50 MCG PO (09:37)
[2022-01-21] MEDS: Pantoprazole Sodium 40 MG Tablet PO (09:37)
[2022-01-21] MEDS: 0.9% Saline Lock 10 ML Syringe IV ×3 (09:38→21:38)
[2022-01-21] MEDS: buPROPion (XL) 150 MG TABLET.XL PO (09:48)
[2022-01-21 12:06] LABS: Bedside Glucose 193 mg/dL (74-106)
--- NOTE | 2022-01-21 12:14 | PN.HOSP_ITS ---
Subjective Subjective Patient seen and examined. She still complains of feeling weak. She denied any fever, chills, nausea, vomiting or diarrhea. Review of systems is otherwise negative. Urine culture growing ESBL E coli Objective Data Objective Data Vital Signs: Vital Signs Temp Pulse Resp BP Pulse Ox 98.3 F 73 16 137/75 H 93 01/21/22 09:32 01/21/22 09:32 01/21/22 09:32 01/21/22 09:32 01/21/22 09:32 Oxygen Delivery Method Room Air Weight: 248 lb 14.43 oz Body Mass Index (BMI) 38.9 Intake & Output: Intake and Output for Last 24 Hours 01/19/22 01/20/22 01/21/22 23:59 23:59 23:59 Intake Total 2671.25 / 2671.25 1750 / 1750 1099.75 / 1099.75 Output Total 675 / 675 Balance / 1750 / 1750 1099.75 / 1099.75 Lab / Micro Data Result Diagrams: 01/21/22 05:35 01/21/22 05:35 Labs: Laboratory Results - last 24 hr 01/20/22 16:50: POC Glucose 165 H 01/20/22 22:22: POC Glucose 204 H 01/21/22 05:35: WBC 10.0, RBC 4.26, Hgb 12.9, Hct 40.4, MCV 94.8, MCH 30.3, MCHC 31.9 L, RDW Std Deviation 47.8 H, RDW Coeff of Jona 13.7, Plt Count 272, MPV 9.4, Immature Gran % (Auto) 0.700, Neut % (Auto) 52.7, Lymph % (Auto) 37.4, Glascock % (Auto) 7.1, Eos % (Auto) 1.5, Baso % (Auto) 0.6, Absolute Neuts (auto) 5.3, Absolute Lymphs (auto) 3.74, Nucleated RBC % 0 01/21/22 05:35: Sodium 139, Potassium 4.0, Chloride 108 H, Carbon Dioxide 27.0, Anion Gap 4 L, BUN 12, Creatinine 0.67, Estim Creat Clear Calc 82.49, Est GFR (MDRD) Af Amer 113, Est GFR (MDRD) Non-Af 93, BUN/Creatinine Ratio 17.8, Glucose 176 H, Calcium 8.5 01/21/22 06:21: POC Glucose 162 H 01/21/22 11:55: POC Glucose 193 H Micro: Microbiology 01/17/22 16:25 Blood Culture (Wb) - Right Hand Blood Culture - Preliminary No growth in 48 hours. 01/17/22 16:12 Blood Culture (Wb) - Anticubital Left Blood Culture - Preliminary No growth in 48 hours. 01/17/22 17:20 Urine, Clean Catch Urine Culture - Final Escherichia coli Physical Exam Const alert, oriented x3 and no apparent distress General Appearance: cooperative Exam Limitations: no limitations HEENT head/scalp atraumatic and moist oral mucous membranes Head and Scalp: normocephalic Eyes PERRL, EOMs intact bilaterally and conjunctivae normal Neck no lymphadenopathy, supple and no JVD Resp normal respiratory effort, no retractions, no use of accessory muscles and clear to auscultation bilaterally Cardio regular rate, regular rhythm, S1 normal heart sound, S2 normal heart sound and no murmurs GI normal to inspection, nondistended, normoactive bowel sounds, soft to palpation, non-tender and non-distended GI Narrative: obese abdomen Extremity normal to inspection, full ROM and no clubbing, cyanosis or edema Peripheral Pulses: Yes pulses 2+ throughout Skin no rashes or lesions noted Neuro oriented x3, CN's II-XII intact bilaterally and moves all extremities Sensorium / Orientation: awake and alert Psych affect normal Assessment & Plan Assessment/Plan (1) Urinary tract infection: (2) UTI due to extended-spectrum beta lactamase (ESBL) producing Escherichia coli: PLAN: Recurrent UTI due to ESBL E coli * remains on IV cefepime. * ID consulted; awaiting rec's * on IV phenergan and zofran for nausea * urine cultures growing ESBL * has been treated several times on outpatient basis with macrobid but this was unsuccessful * * #TYpe 2 diabetes mellitus * on lantus 80 units daily. * ISS. Accuchecks ACHS * #Hypertension; on carvedilol #COPD: on breathing treatment with bronchodilators. Not in exacerbation. #Hypertension; on carvedilol #Fibromyalgia: on gabapentin #Depression:L on lexapro and wellbutrin. DVT prophylaxis: lovenox Charges/Coding Visit Charges Inpatient E&M: 60577 Subs Hosp L2
[2022-01-21] MEDS: Ondansetron 4 MG/2 ML Vial IV ×2 (14:00→22:05)
[2022-01-21 17:30] LABS: Bedside Glucose 193 mg/dL (74-106)
[2022-01-21] MEDS: Atorvastatin Calcium 20 MG Tablet PO (21:46)
[2022-01-21] MEDS: QUEtiapine 100 MG Tablet 300 MG PO (21:47)
[2022-01-21] MEDS: Ibuprofen 400 MG Tablet PO (22:05)
[2022-01-21 22:06] LABS: Bedside Glucose 243 mg/dL (74-106)
[2022-01-22 04:00] VITALS: BP 150/65; PULSE 63; RESP 16; TEMP 36.6; O2SAT 93
[2022-01-22 06:19] LABS: Absolute Lymphocyte Count 3.49 X10^3/uL (0.83-4.51); Absolute Neutrophil Count 5.1 X10^3/uL (2.0-7.7); Basophil# 0.06 X10^3/uL; Basophil% 0.6 % (0-1); Eosinophil# 0.14 X10^3/uL; Eosinophils% 1.5 % (0-5); Hematocrit 41.6 % (37-47); Hemoglobin 13.4 g/dL (12.0-15.0); Lymphocyte # 3.49 X10^3/ul (0.83-4.51); Lymphocyte % 36.8 % (19-41); Mean Corp Hgb Conc 32.2 g/dL (32-36); Mean Corpuscular Hgb 30.5 pg (27.0-32.0); Mean Corpuscular Volume 94.5 fL (81-99); Mean Platelet Vol. 9.6 fl (6.2-12.0); Monocyte# 0.67 X10^3/uL; Monocyte% 7.1 % (0-10); NRBC Flagged by Analyzer 0 % (0-5); Neutrophil # 5.08 X10^3/uL (2.7-7.7); Neutrophil % 53.5 % (47-70); Platelet Count 277 K/mm3 (150-450); RBC Distribution Width CV 13.5 % (11.6-14.6); RBC Distribution Width SD 47.4 fl (35.1-43.9); White Blood Count 9.5 K/mm3 (4.4-11.0)
[2022-01-22 06:40] LABS: Anion Gap 5 (5-15); BUN 12 mg/dL (7-18); BUN/Creat Ratio 16.2 RATIO (10-20); Calcium,Total 8.6 mg/dL (8.5-10.1); Chloride 107 mmol/L (98-107); Creatinine, Serum 0.74 mg/dL (0.55-1.02); EST Glomerular Filtration Rate 84 mL/min (>60); Est Glom Filt Rate - Afr Amer 101 mL/min (>60); Estimated Creatinine Clearance 74.69 ml/min; Glucose 204 mg/dL (74-106); Sodium Level 139 mmol/L (136-145)
[2022-01-22] MEDS: Insulin Lispro 100 UNIT/ML INSULN.PEN SC ×2 (07:05→13:35)
[2022-01-22] MEDS: busPIRone 5 MG Tablet 10 MG PO (07:05)
[2022-01-22] MEDS: Gabapentin 400 MG Capsule PO (07:05)
[2022-01-22 07:15] LABS: Bedside Glucose 210 mg/dL (74-106)
[2022-01-22] MEDS: Ibuprofen 400 MG Tablet PO (07:33)
[2022-01-22 07:50] VITALS: O2SAT 91
[2022-01-22] MEDS: Ondansetron 4 MG/2 ML Vial IV (09:42)
[2022-01-22] MEDS: Polyethylene Glycol 3350 17 GM PACKET PO (09:42)
[2022-01-22] MEDS: Pantoprazole Sodium 40 MG Tablet PO (09:49)
[2022-01-22] MEDS: oxyCODONE 5 MG Tablet 10 MG PO (09:49)
[2022-01-22] MEDS: Escitalopram Oxalate 20 MG Tablet PO (09:50)
[2022-01-22] MEDS: buPROPion (XL) 150 MG TABLET.XL PO (09:50)
[2022-01-22] MEDS: Cholecalciferol (VIT D3) 25 MCG TABLET (1,000 UNITS) 50 MCG PO (09:50)
[2022-01-22] MEDS: Carvedilol 6.25 MG Tablet PO (09:50)
[2022-01-22] MEDS: Enoxaparin 40 MG/0.4 ML Syringe SC (09:51)
[2022-01-22 10:00] VITALS: BP 134/81; PULSE 71; RESP 17; TEMP 37; O2SAT 92
[2022-01-22] MEDS: Insulin Glargine-YFGN 100 UNIT/ML Pen 80 UNIT SC (10:04)
--- NOTE | 2022-01-22 10:38 | PCM.CONS.GEN ---
Assessment & Plan Assessment/Plan (1) UTI due to extended-spectrum beta lactamase (ESBL) producing Escherichia coli: PLAN: Sx improved with cefepime. On abx since 01/17. Day 6 of abx today. Will give dose of fosfomycin here prior to discharge along with dose #1 of covid vaccine. Pt agrees to vaccine. With h/o recurrent uti and chronic incontinence, recommend she be referred to see urology. Close glucose control will also help decrease number of infections. Will follow as needed, thank you, d/w primary team (2) Diabetes: QUALIFIERS: Diabetes mellitus type: type 2 Diabetes mellitus [facility] insulin use: with [facility] use Diabetes mellitus complication status: with hyperglycemia Qualified Code(s): E11.65 - Type 2 diabetes mellitus with hyperglycemia; Z79.4 - [facility] [employer] (current) use of insulin HPI Consult Data Date of Consult: 01/22/22 HPI Narrative HPI Narrative: DAMIEN BROWNLEE, is a 66 F who presented 01/17/22 to ED with 4-6 months of recurrent uti. Reports little help with multiple courses of outpt po abx including macrobid. Sx are dysuria, abd pain, nausea. No fever, no h/o kidney stones. Reports chronic incontinence, wears pads. Has had utis ever since bladder sling ?2012. Admitted here for esbl ecoli uti, given dose of gent then cefepime. Feeling better. Unvaccinated for covid. Full ROS performed and neg except as noted above. [facility] Medical History Anxiety and depression Chronic bronchitis Chronic UTI COPD (chronic obstructive pulmonary disease) Depression Diabetes type 2, controlled Diarrhea Essential (primary) hypertension Frequent headaches Gastritis Gastroparesis GI problem Leukocytosis Nausea Panic disorder with agoraphobia Seasonal allergies Secondary polycythemia Urinary incontinence Vision problem Home Medications omeprazole 20 mg capsule,delayed release 40 mg PO DAILY cap 11/18/17 [History Last Taken 01/17/22] promethazine 25 mg PO Q6H PRN PRN 01/09/20 [History Last Taken 01/17/22] carvedilol 6.25 mg PO BID 01/02/22 [History Last Taken 01/17/22] escitalopram oxalate 20 mg PO DAILY 01/02/22 [History Last Taken 01/17/22] insulin lispro [Humalog KwikPen Insulin] See Protocol SUBCUT TID 01/02/22 [History Last Taken 01/17/22] naproxen [Naprosyn] 500 mg PO BID PRN #20 tab 01/02/22 [Rx Last Taken 01/16/22] ondansetron 4 mg PO Q8H PRN #10 tab 01/02/22 [Rx Last Taken 01/17/22] atorvastatin 20 mg tablet 20 mg PO DAILY 01/11/22 [History Last Taken 01/16/22] cholecalciferol (vitamin D3) 50 mcg (2,000 unit) capsule 50 mcg PO DAILY 01/11/22 [History Last Taken 01/13/22] gabapentin 400 mg capsule 400 mg PO TID 01/11/22 [History Last Taken 01/17/22] insulin glargine U-300 conc 300 unit/mL (3 mL) subcutaneous pen 80 unit SUBCUT DAILY ml 01/11/22 [History Last Taken 01/17/22] quetiapine 300 mg tablet 300 mg PO QHS 01/11/22 [History Last Taken 01/16/22] scopolamine base 1 mg over 3 days transdermal patch 1 patch TRANSDERMAL Q3D PRN 01/11/22 [History Last Taken Unknown] albuterol sulfate 90 inh INHALATION Q4H PRN PRN 01/17/22 [History Last Taken 01/17/22] bupropion HCl 150 mg PO DAILY 01/17/22 [History Last Taken 01/17/22] buspirone 10 mg PO TID 01/17/22 [History Last Taken 01/17/22] fluticasone furoate-vilanterol [Breo Ellipta] 1 ea INHALATION DAILY 01/17/22 [History Last Taken 01/17/22] Allergy/AdvReac Type Severity Reaction Status Date / Time Penicillins Allergy Hives Verified 01/17/22 15:03 Sulfa (Sulfonamide Allergy Hives Verified 01/17/22 15:03 Antibiotics) varenicline [From Chantix] Allergy Other Verified 01/17/22 15:03 Family History Brother Diabetes Hypertension Surgical History bladder sling H/O tubal ligation Hx of cholecystectomy S/P complete hysterectomy S/P ORIF (open reduction internal fixation) fracture Social History Smoking Status: Current every day smoker tobacco type: cigarettes second hand exposure: Yes alcohol intake: never substance use type: does not use Physical Exam Const alert, oriented x3 and no apparent distress General Appearance: cooperative Exam Limitations: no limitations HEENT normocephalic and head/scalp atraumatic Eyes PERRL and EOMs intact bilaterally Neck supple and No nodes Resp normal air movement and clear to auscultation bilaterally Cardio regular rate and regular rhythm GI soft to palpation, non-tender and non-distended Extremity no clubbing, cyanosis or edema Skin no rashes or lesions noted Neuro CN's II-XII intact bilaterally Lab / Micro Data Result Diagrams: 01/22/22 05:40 01/22/22 05:40 Labs: Laboratory Results - last 24 hr 01/21/22 11:55: POC Glucose 193 H 01/21/22 17:18: POC Glucose 193 H 01/21/22 21:45: POC Glucose 243 H 01/22/22 05:40: WBC 9.5, RBC 4.40, Hgb 13.4, Hct 41.6, MCV 94.5, MCH 30.5, MCHC 32.2, RDW Std Deviation 47.4 H, RDW Coeff of Jona 13.5, Plt Count 277, MPV 9.6, Immature Gran % (Auto) 0.500, Neut % (Auto) 53.5, Lymph % (Auto) 36.8, Esmeralda % (Auto) 7.1, Eos % (Auto) 1.5, Baso % (Auto) 0.6, Absolute Neuts (auto) 5.1, Absolute Lymphs (auto) 3.49, Nucleated RBC % 0 01/22/22 05:40: Sodium 139, Potassium 4.0, Chloride 107, Carbon Dioxide 27.0, Anion Gap 5, BUN 12, Creatinine 0.74, Estim Creat Clear Calc 74.69, Est GFR (MDRD) Af Amer 101, Est GFR (MDRD) Non-Af 84, BUN/Creatinine Ratio 16.2, Glucose 204 H, Calcium 8.6 01/22/22 07:03: POC Glucose 210 H
--- NOTE | 2022-01-22 11:19 | DS.PCM_ITS ---
Providers Date of Admission: 01/17/22 Primary Care Physician: Dr. Ricci Broussard MD Consultations 01/22/22 09:49 Consult: Infectious Disease Routine Consulting Provider: Manolo Wade Reason for Consult: ESBL UTI EMERGENT Consult: No MD Notified: Yes Date Notified: 01/22/22 Time Notified: 09:49 Method of Notification: Verbal Reason For Visit: esbl uti Diagnosis Discharge Diagnosis (1) UTI due to extended-spectrum beta lactamase (ESBL) producing Escherichia coli: Status: Acute Code(s): N39.0 - Urinary tract infection, site not specified; B96.29 - Other Escherichia coli [E. 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 use Diabetes mellitus type: type 2 Qualified Code(s): E11.65 - Type 2 diabetes mellitus with hyperglycemia; Z79.4 - alf (current) use of insulin Medications at Discharge Home Medications omeprazole 20 mg capsule,delayed release 40 mg PO DAILY cap 11/18/17 promethazine 25 mg PO Q6H PRN PRN 01/09/20 carvedilol 6.25 mg PO BID 01/02/22 escitalopram oxalate 20 mg PO DAILY 01/02/22 insulin lispro [Humalog KwikPen Insulin] See Protocol SUBCUT TID 01/02/22 naproxen [Naprosyn] 500 mg PO BID PRN #20 tab 01/02/22 ondansetron 4 mg PO Q8H PRN #10 tab 01/02/22 atorvastatin 20 mg tablet 20 mg PO DAILY 01/11/22 cholecalciferol (vitamin D3) 50 mcg (2,000 unit) capsule 50 mcg PO DAILY 01/11/22 gabapentin 400 mg capsule 400 mg PO TID 01/11/22 insulin glargine U-300 conc 300 unit/mL (3 mL) subcutaneous pen 80 unit SUBCUT DAILY ml 01/11/22 quetiapine 300 mg tablet 300 mg PO QHS 01/11/22 scopolamine base 1 mg over 3 days transdermal patch 1 patch TRANSDERMAL Q3D PRN 01/11/22 Breo Ellipta 1 ea INHALATION DAILY 01/17/22 albuterol sulfate 90 inh INHALATION Q4H PRN PRN 01/17/22 bupropion HCl 150 mg PO DAILY 01/17/22 buspirone 10 mg PO TID 01/17/22 Hospital Course Operations None Procedures None Summary of Care Provided Minutes Spent on Discharge: 45 Hospital Course: Patient is a 66-year-old female with a past medical history as outlined was admitted through the ED on 01/17/2022 with a complaint of dysuria. She had been having recurrent UTIs and had been on numerous oral regimens with the most recent being nitrofurantoin which she was on for about 4 days. Urine cultures from 02 January were positive for ESBL E. coli. She did not feel any better after taking the nitrofurantoin so she came into the ED where she also complained of nausea and fatigue. Urinalysis showed evidence of UTI. She was started on IV gentamicin. Patient had never seen an ID doctor. She was switched to IV cefepime and admitted and managed for recurrent UTI due to ESBL E. coli. Urine cultures done during this admission were again positive for ESBL E. coli. ID was consulted and recommended the patient be given a dose of fosfomycin. Patient remained stable and was discharged on 01/22/2022 after she received fosfomycin. She is follow-up with her primary care doctor and was referred to urology on outpatient basis. Patient seen and examined prior to discharge. She still complained of feeling weak and tired which she attributed to her fibromyalgia. Dysuria had improved. Review of systems otherwise negative. Labs and vitals reviewed. Home medication reviewed and reconciled. Physical Exam Const alert, oriented x3 and no apparent distress General Appearance: cooperative and comfortable Exam Limitations: no limitations HEENT normocephalic, head/scalp atraumatic, hearing grossly normal bilaterally and moist oral mucous membranes Eyes PERRL, EOMs intact bilaterally and conjunctivae normal Neck no lymphadenopathy, supple and no JVD Resp normal respiratory effort, no retractions, no use of accessory muscles and clear to auscultation bilaterally Cardio regular rate, regular rhythm, S1 normal heart sound, S2 normal heart sound and no murmurs GI normal to inspection, nondistended, normoactive bowel sounds, soft to palpation, non-tender and non-distended GI Narrative: obese abdomen Extremity normal to inspection, full ROM and no clubbing, cyanosis or edema Skin no rashes or lesions noted Neuro oriented x3, CN's II-XII intact bilaterally and moves all extremities Sensorium / Orientation: awake and alert Psych affect normal Weight / BMI Weight Weight: 248 lb 14.43 oz Body Mass Index (BMI) 38.9 ABG / Lab / Microbiology Data Result Diagrams: 01/22/22 05:40 01/22/22 05:40 Laboratory: Laboratory Results - last 24 hr 01/21/22 11:55: POC Glucose 193 H 01/21/22 17:18: POC Glucose 193 H 01/21/22 21:45: POC Glucose 243 H 01/22/22 05:40: WBC 9.5, RBC 4.40, Hgb 13.4, Hct 41.6, MCV 94.5, MCH 30.5, MCHC 32.2, RDW Std Deviation 47.4 H, RDW Coeff of Jona 13.5, Plt Count 277, MPV 9.6, Immature Gran % (Auto) 0.500, Neut % (Auto) 53.5, Lymph % (Auto) 36.8, J[place] % (Auto) 7.1, Eos % (Auto) 1.5, Baso % (Auto) 0.6, Absolute Neuts (auto) 5.1, Absolute Lymphs (auto) 3.49, Nucleated RBC % 0 01/22/22 05:40: Sodium 139, Potassium 4.0, Chloride 107, Carbon Dioxide 27.0, Anion Gap 5, BUN 12, Creatinine 0.74, Estim Creat Clear Calc 74.69, Est GFR (MDRD) Af Amer 101, Est GFR (MDRD) Non-Af 84, BUN/Creatinine Ratio 16.2, Glucose 204 H, Calcium 8.6 01/22/22 07:03: POC Glucose 210 H Microbiology: Microbiology 01/17/22 16:25 Blood Culture (Wb) - Right Hand Blood Culture - Preliminary No growth in 48 hours. 01/17/22 16:12 Blood Culture (Wb) - Anticubital Left Blood Culture - Preliminary No growth in 48 hours. 01/17/22 17:20 Urine, Clean Catch Urine Culture - Final Escherichia coli D/C Instructions Discharge Diet: Low fat / Low cholesterol Discharge Activity: Return to Normal Activity Weight Bearing Status: Weight bearing as tolerated Call your doctor if you observe: Fever of 101 or Higher, Shortness of breath, Swelling in the ankles and Uncontrolled pain Meaningful Use Info Meaningful Use Diagnoses (Choose all that apply): None applicable Discharge Plan Admission Admit Date/Time: 01/17/22 17:44 Primary Reason for Your Visit: recurrent UTI Attending Provider: Pippa Briec Primary Care Provider: Ricci Broussard Consulting Providers: Benjamín Horner ; Manolo Wade Discharge Orders/Prescriptions Prescriptions: Continued Toujeo Max U-300 SoloStar 300 unit/mL (3 mL) insulin pen 80 unit subcut DAILY RF: 0 atorvastatin 20 mg tablet 20 mg PO DAILY RF: 0 cholecalciferol (vitamin D3) 50 mcg (2,000 unit) capsule 50 mcg PO DAILY RF: 0 scopolamine base 1 mg over 3 days patch 3 day 1 patch transdermal Q3D PRN (Reason: Nausea) RF: 0 gabapentin 400 mg capsule 400 mg PO TID RF: 0 quetiapine 300 mg tablet 300 mg PO QHS RF: 0 omeprazole 20 mg capsule,delayed release(DR/EC) 40 mg PO DAILY RF: 0 promethazine 25 MG tablet 25 mg PO Q6H PRN PRN (Reason: Nausea) RF: 0 carvedilol 3.125 mg tablet 6.25 mg PO BID RF: 0 insulin lispro [Humalog KwikPen Insulin] 100 unit/mL Insulin Pen See Protocol unit SUBCUT TID RF: 0 escitalopram oxalate 20 mg tablet 20 mg PO DAILY RF: 0 ondansetron 4 mg tablet,disintegrating 4 mg PO Q8H PRN (Reason: nausea and vomiting) Qty: 10 RF: 0 naproxen [Naprosyn] 500 mg tablet 500 mg PO BID PRN (Reason: pain) Qty: 20 RF: 0 buspirone 10 mg tablet 10 mg PO TID RF: 0 albuterol sulfate 90 mcg/actuation HFA aerosol inhaler 90 inh INHALATION Q4H PRN PRN (Reason: sob) RF: 0 Breo Ellipta 100-25 mcg/dose blister with device 1 ea INHALATION DAILY RF: 0 bupropion HCl 150 mg tablet extended release 24 hr 150 mg PO DAILY RF: 0 Referrals / Follow Up: Meredith Oropeza MD [STAFF PHYSICIAN] - 02/11/22 9:00 am Ricci Broussard MD [Primary Care Provider] - 01/25/22 2:20 pm Disposition Disposition (needs filled in before D/C Order can be placed): Home, Self Care Charges/Coding Visit Charges Inpatient E&M: 30479 Disch Hosp
[2022-01-22 11:36] LABS: Bedside Glucose 261 mg/dL (74-106)
[2022-01-22] MEDS: FOSFOMYCIN TROMETHAMINE 3 GM PACKET PO (13:20)
--- NOTE | 2022-01-22 13:59 | CASEMGMT ---
NITIN CM in to pt room, pt was up in bathroom independently. Pt denies any homegoing needs at this time. Discussed HHC and therapy. She denies need for either.
[2022-01-22 16:04] VITALS: BP 156/72; PULSE 79; RESP 17; TEMP 36.8; O2SAT 92
[2022-01-22 16:24] VITALS: BP 140/57; PULSE 62; RESP 16; TEMP 36.6; O2SAT 97
== END 2022-01-22 16:25 | disposition home or self-care (01) | DRG 690 ==
LOC: ED 15:46 → MS3 18:01
PROVIDERS: Nurse Practitioner; Emergency Provider Emergency Medicine; PCP Family Medicine; Visit Provider Student in an Organized Health Care Education/Training Program
DX: N39.0 Urinary tract infection, site not specified (principal); Z16.12 Extended spectrum beta lactamase (ESBL) resistance; E11.43 Type 2 diabetes mellitus with diabetic autonomic (poly)neuropathy; K31.84 Gastroparesis; F17.210 Nicotine dependence, cigarettes, uncomplicated; B96.20 Unspecified Escherichia coli [E. coli] as the cause of diseases classified elsewhere; F32.A Depression, unspecified; J44.9 Chronic obstructive pulmonary disease, unspecified; Z79.4 Long term (current) use of insulin; F41.9 Anxiety disorder, unspecified; M79.7 Fibromyalgia; I10 Essential (primary) hypertension; Z87.440 Personal history of urinary (tract) infections; Z87.19 Personal history of other diseases of the digestive system; Z79.899 Other long term (current) drug therapy; R32 Unspecified urinary incontinence; Z28.310 Unvaccinated for COVID-19; Z28.9 Immunization not carried out for unspecified reason
CPT/HCPCS: 0011A; 36415; 74018; 80048; 81001; 82962; 83605; 85025; 87040; 87086; 87088; 87186; 91301; 94640; 99282; 99406; J7030; J7050; A4216; J2405

== ENCOUNTER 2022-04-30 21:50 | Inpatient (IN) | payer MEDICARE, MEDICAID, SELFPAY ==
[2022-04-30 21:54] VITALS: BP 133/70; PULSE 107; RESP 19; TEMP 36.8; O2SAT 95; BMI 38.2
[2022-04-30 22:11] VITALS: TEMP 36.6
--- NOTE | 2022-04-30 22:11 | CT_ITS ---
EXAM: CT HEAD WITHOUT INTRAVENOUS CONTRAST CLINICAL INDICATION: ams TECHNIQUE: Multiple axial images were obtained of the head without intravenous contrast. CTDIvol = ( 44.99 ) mGy, DLP = ( 846.73 ) mGycm This CT exam was performed using one or more of the following dose reduction techniques: automated exposure control, adjustment of the mA and/or kV according to patient size, and/or use of iterative reconstruction technique. This report was created using dVisit report generation technology. COMPARISON: None. FINDINGS: BRAIN AND EXTRA-AXIAL SPACES: Diffuse parenchymal atrophy. No intra- or extra-axial hemorrhage. No evidence of acute infarct. No intracranial mass or mass effect. There is preservation of the enamorado/white matter interface. Posterior fossa structures are unremarkable. No hydrocephalus. Basal cisterns are patent. BONES/JOINTS: Unremarkable. No discrete lytic or blastic abnormalities. SINUSES: Unremarkable as visualized. Clear. MASTOID AIR CELLS: Unremarkable. Clear. ORBITS: Visualized globes, extraocular muscles, optic nerves and retrobulbar fat appear unremarkable. CT/Brain/Head without Contrast IMPRESSION: No acute intracranial pathology Electronically Signed: Bhavin Edgar MD at 23:43 EDT ,
--- NOTE | 2022-04-30 22:11 | EKG12_ITS ---
Test Reason : DIZZINESS Blood Pressure : / mmHG Vent. Rate : 105 BPM Atrial Rate : 105 BPM P-R Int : 150 ms QRS Dur : 088 ms QT Int : 346 ms P-R-T Axes : 040 025 089 degrees QTc Int : 457 ms Sinus tachycardia Nonspecific ST and T wave abnormality Abnormal ECG Reconfirmed by RITA TATE, SHARMIN ([id number]), video tape editor SONIA CHERRY ([id number]) on 05/01/2022 11:14:18 AM Referred By: Confirmed By:SHARMIN SALINAS MD
--- NOTE | 2022-04-30 22:12 | EDS_ITS ---
HPI History of Present Illness Chief Complaint: Fall Informant: patient, family and EMS Narrative Narrative: 67-year-old female presents to the emergency room after a fall. Patient has been called her granddaughter who called EMS after the last fall and she devel oped slurred speech and some confusion. Apparently she has had 2 falls today. She states that when she goes to get up she does not know what happens but she falls down. The granddaughter states that last week she was started on Reglan and has been falling ever since then. She has not talked to her doctor because she was hoping it would go away. She is also been taking Seroquel at night. She has had both of those this evening. She also was prescribed alprazolam. This was filled the beginning of April. Patient states that she has superficial skin tears to the bilateral elbows and a brasions to the bilateral knees. She states that she does not believe she hit her head. She has no neck pain. States that she had some shoulder and back pain after one of the falls but it was gone. She also states that she had 102 fever this morning took a Tylenol went away and then this afternoon it came back and was 104. She has not had any Tylenol since then and she is afebrile here. She denies any infectious symptoms. The patient is a fairly poor historian at the moment it is difficult to get accurate information from her. Looking at the medical record that is in the computer I see she was treated for ESBL E. coli UTI in December. She denies any dysuria or frequency at this time. [facility] Medical History Anxiety and depression Chronic bronchitis Chronic UTI COPD (chronic obstructive pulmonary disease) Depression Diabetes Diabetes type 2, controlled Diarrhea Essential (primary) hypertension Frequent headaches Gastritis Gastroparesis GI problem Leukocytosis Panic disorder with agoraphobia Seasonal allergies Secondary polycythemia Urinary incontinence Urinary tract infection UTI due to extended-spectrum beta lactamase (ESBL) producing Escherichia coli Vision problem Home Medications omeprazole 20 mg capsule,delayed release 40 mg PO DAILY gerd 11/18/17 [History Last Taken 01/17/22] promethazine 25 mg tablet 25 mg PO Q6H PRN PRN Nausea 01/09/20 [History Last Taken 01/17/22] carvedilol 3.125 mg tablet 6.25 mg PO BID bp 01/02/22 [History Last Taken 01/17/22] escitalopram oxalate 20 mg tablet 20 mg PO DAILY mood 01/02/22 [History Last Taken 01/17/22] insulin lispro 100 unit/mL subcutaneous pen (Humalog KwikPen (U-100) Insulin) See Protocol subcut TID diabetes 01/02/22 [History Last Taken 01/17/22] naproxen 500 mg tablet (Naprosyn) 500 mg PO BID PRN pain #20 tabs 01/02/22 [Rx Last Taken 01/16/22] ondansetron 4 mg disintegrating tablet 4 mg PO Q8H PRN nausea and vomiting #10 tabs 01/02/22 [Rx Last Taken 01/17/22] atorvastatin 20 mg tablet 20 mg PO DAILY cholesterol 01/11/22 [History Last Taken 01/16/22] cholecalciferol (vitamin D3) 50 mcg (2,000 unit) capsule 50 mcg PO DAILY supplement 01/11/22 [History Last Taken 01/13/22] gabapentin 400 mg capsule 400 mg PO TID pain 01/11/22 [History Last Taken 01/17/22] insulin glargine U-300 conc 300 unit/mL (3 mL) subcutaneous pen (Toujeo Max U- 300 SoloStar) 80 unit subcut DAILY diabetes 01/11/22 [History Last Taken 01/17/22] quetiapine 300 mg tablet 300 mg PO QHS mood 01/11/22 [History Last Taken 01/16/22] albuterol sulfate 90 mcg/actuation aerosol inhaler 90 inh inhalation Q4H PRN PRN sob 01/17/22 [History Last Taken 01/17/22] bupropion HCl 150 mg 24 hr tablet, extended release 150 mg PO DAILY mood 01/17/22 [History Last Taken 01/17/22] buspirone 10 mg tablet 10 mg PO TID mood 01/17/22 [History Last Taken 01/17/22] fluticasone furoate 100 mcg-vilanterol 25 mcg/dose inhalation powder (Breo Ellipta) 1 ea inhalation DAILY sob 01/17/22 [History Last Taken 01/17/22] alprazolam 1 mg tablet 1 mg PO TID PRN anxiety #30 tabs 04/26/22 [Rx Last Taken Unknown] metoclopramide HCl 5 mg tablet 5 mg PO .q8 #90 tabs 04/26/22 [Rx Last Taken Unknown] Allergy/AdvReac Type Severity Reaction Status Date / Time Penicillins Allergy Hives Verified 04/30/22 21:53 Sulfa (Sulfonamide Allergy Hives Verified 04/30/22 21:53 Antibiotics) varenicline [From Chantix] Allergy Other Verified 04/30/22 21:53 Family History Brother Diabetes Hypertension Surgical History bladder sling H/O tubal ligation Hx of cholecystectomy S/P complete hysterectomy S/P ORIF (open reduction internal fixation) fracture Social History Smoking Status: Current every day smoker tobacco type: cigarettes second hand exposure: Yes alcohol intake: never substance use type: does not use ROS ROS ED ROS Narrative Frequent falls x1 week Constitutional Constitutional ED: Reports fever(s); Denies chills or weight loss Eyes Eyes: Denies change in vision or diplopia ENT ENT ED: Denies ear pain, rhinorrhea or sore throat Cardiovascular Cardiovascular: Denies chest pain, orthopnea, palpitations or racing heartbeat Respiratory/Chest Respiratory/Chest: Denies cough, dyspnea or orthopnea Gastrointestinal Gastrointestinal: Denies abdominal pain, diarrhea, nausea or vomiting Genitourinary Genitourinary ED: Denies dysuria, hematuria or urinary frequency Musculoskeletal Musculoskeletal: Reports back pain and other Details: Shoulder pain ; Denies arthralgias or myalgias Integumentary Denies abscess or rash Neurologic Neurologic: Reports weakness and other Details: Slurred speech and confusion ; Denies headache(s) or paresthesias Psychiatric Psychiatric: Denies anxiety, depression, suicidal ideation or suicidal thoughts Endocrine Endocrinology: Denies polydipsia, polyphagia or polyuria Allergic/Immunologic Allergic/Immunologic ED: Denies mouth swelling, tongue swelling or urticaria EXAM Physical Exam Const Vital Signs: 04/30/22 21:54 04/30/22 22:02 04/30/22 22:11 Temperature 98.3 F 97.9 F Temperature Source Oral Oral Pulse Rate 107 H Respiratory Rate 19 H Respiratory Effort Normal Blood Pressure 133/70 H Blood Pressure Mean 91 Pulse Ox 95 Oxygen Delivery Method Room Air Room Air 04/30/22 23:11 04/30/22 23:11 Temperature 98.1 F 98.1 F Temperature Source Oral Temporal Pulse Rate 96 Respiratory Rate 22 H Respiratory Effort Blood Pressure 129/77 H Blood Pressure Mean 94 Pulse Ox 95 Oxygen Delivery Method Room Air Positive well nourished, well developed and obese General Appearance ED: well developed Nutritional Appearance: obese HEENT Reports normocephalic, head/scalp atraumatic and moist mucous membranes Eyes PERRL and EOMs intact bilaterally Neck no lymphadenopathy, supple and no JVD Resp normal respiratory effort and clear to auscultation bilaterally Cardio regular rate, regular rhythm and no murmurs Rate: tachycardic GI normal to inspection, nondistended, normoactive bowel sounds and non-tender Palpation: soft Back/Spine no CVA tenderness and normal ROM Extremity Extremity Narrative: There are superficial skin tears to the bilateral elbows. There are abrasions to the bilateral knees. General Extremety ED: Negative for edema General Extremity: Negative for edema Neuro oriented x3 and CN's II-XII intact bilaterally Neuro Narrative: Patient has slurred speech but she is able to communicate. She is alert but tired appearing Motor Exam: strength 5/5 throughout Psych Mood & Affect: Negative for depressed or tearful Skin no rashes or lesions noted Trauma: abrasion MDM MDM MDM Narrative Medical decision making narrative: White count returns at 10.3 with a hemoglobin of 13.7. Coags are normal. Creatinine 0.94. Glucose elevated 359. AST at 41. Troponin 12. Urinalysis is positive for nitrates, 10-25 white cells and 4+ bacteria. Blood and urine cultures were obtained. Her lactic acid is elevated at 3.4. Patient received IV fluids. I spoke with her hospitalist regarding antibiotic selections as I initially wanted to give her a Carbapenem but she is penicillin allergic. She had been on cefepime during her last admission and after ID was consulted was given fosfomycin. Dr. Brice is going to review the patient's chart and we will decide on antibiotic together. I think the patient's encephalopathy could be multifactorial from the UTI as well as a potential drug drug interaction between the Reglan and her Seroquel and alprazolam. Lab Data Attestation: I reviewed the patient's lab results. Labs: Laboratory Results - last 24 hr 04/30/22 04/30/22 04/30/22 22:10 22:10 22:10 WBC 10.3 RBC 4.63 Hgb 13.7 Hct 42.0 MCV 90.7 MCH 29.6 MCHC 32.6 RDW Std Deviation 44.7 H RDW Coeff of Jona 13.4 Plt Count 275 MPV 9.5 Immature Gran % (Auto) 0.400 Neut % (Auto) 54.5 Lymph % (Auto) 35.7 [place] % (Auto) 7.8 Eos % (Auto) 1.2 Baso % (Auto) 0.4 Absolute Neuts (auto) 5.6 Absolute Lymphs (auto) 3.67 Nucleated RBC % 0 PT 12.9 INR 1.0 APTT 28.3 Sodium 139 Potassium 3.8 Chloride 104 Carbon Dioxide 25.0 Anion Gap 10 BUN 9 Creatinine 0.94 Estim Creat Clear Calc 58.02 Est GFR (MDRD) Af Amer 77 Est GFR (MDRD) Non-Af 63 BUN/Creatinine Ratio 9.6 L Glucose 359 H Lactic Acid Calcium 9.4 Total Bilirubin 0.50 AST 41 H ALT 34 Alkaline Phosphatase 76 Troponin I High Sens 12 Total Protein 6.4 Albumin 2.8 L Globulin 3.6 Albumin/Globulin Ratio 0.8 L Urine Color Urine Clarity Urine pH Ur Specific [place] Urine Protein Urine Glucose (UA) Urine Ketones Urine Occult Blood Urine Nitrite Urine Bilirubin Urine Urobilinogen Ur Leukocyte Esterase Urine RBC Urine WBC Ur Squamous Epith Cells Urine Bacteria Urine Mucus Urine Yeast 04/30/22 04/30/22 22:11 22:45 WBC RBC Hgb Hct MCV MCH MCHC RDW Std Deviation RDW Coeff of J[place] Plt Count MPV Immature Gran % (Auto) Neut % (Auto) Lymph % (Auto) [place] % (Auto) Eos % (Auto) Baso % (Auto) Absolute Neuts (auto) Absolute Lymphs (auto) Nucleated RBC % PT INR APTT Sodium Potassium Chloride Carbon Dioxide Anion Gap BUN Creatinine Estim Creat Clear Calc Est GFR (MDRD) Af Amer Est GFR (MDRD) Non-Af BUN/Creatinine Ratio Glucose Lactic Acid 3.4 H* Calcium Total Bilirubin AST ALT Alkaline Phosphatase Troponin I High Sens Total Protein Albumin Globulin Albumin/Globulin Ratio Urine Color Yellow Urine Clarity Sl Cldy Urine pH 6.0 Ur Specific [place] 1.020 Urine Protein 15 H Urine Glucose (UA) 1000 H Urine Ketones 15 H Urine Occult Blood 10 H Urine Nitrite Positive H Urine Bilirubin Negative Urine Urobilinogen Normal Ur Leukocyte Esterase 25 H Urine RBC 0-5 SEEN Urine WBC 10-25 SEEN Ur Squamous Epith Cells 0-5 SEEN Urine Bacteria 4+ Urine Mucus 0 SEEN Urine Yeast RARE Radiography Diagnostic Testing: Clinical Impression(s) from Imaging Studies Brain CT 04/30/22 22:11 IMPRESSION: No acute intracranial pathology Electronically Signed: Bhavin Edgar MD at 23:43 EDT , Chest X-Ray 04/30/22 22:23 IMPRESSION: No acute disease. Electronically Signed: Bhavin Edgar MD at 23:07 EDT , EKG Initial EKG: Attestation: I personally reviewed and interpreted this EKG as follows: Comments: Normal sinus rhythm with a ventricular rate of 78 bpm Discharge Plan Dx/Rx/DC Orders Clinical Impression: Acute encephalopathy, Acute UTI, Type 2 diabetes mellitus without complications, COPD (chronic obstructive pulmonary disease), Sepsis Disposition Disposition: [facility]
--- NOTE | 2022-04-30 22:23 | RAD_ITS ---
EXAM: XR CHEST, 1 VIEW CLINICAL INDICATION: fever TECHNIQUE: Frontal view of the chest. This report was created using [employer] report generation technology. COMPARISON: None. FINDINGS: LUNGS AND PLEURAL SPACES: Mild subsegmental atelectasis at the lower lobes. No pneumothorax. No effusion. HEART: Unremarkable. Cardiac silhouette not enlarged. MEDIASTINUM: Central airways and mediastinal contour are unremarkable. BONES/JOINTS: Degenerative changes of the spine and acromioclavicular joints. SOFT TISSUES: Unremarkable. RAD/Chest 1 View (Portable) IMPRESSION: No acute disease. Electronically Signed: Bhavin Edgar MD at 23:07 EDT ,
[2022-04-30 22:36] LABS: Absolute Lymphocyte Count 3.67 X10^3/uL (0.83-4.51); Absolute Neutrophil Count 5.6 X10^3/uL (2.0-7.7); Basophil# 0.04 X10^3/uL; Basophil% 0.4 % (0-1); Eosinophil# 0.12 X10^3/uL; Eosinophils% 1.2 % (0-5); Hemoglobin 13.7 g/dL (12.0-15.0); Lymphocyte # 3.67 X10^3/ul (0.83-4.51); Lymphocyte % 35.7 % (19-41); Mean Corp Hgb Conc 32.6 g/dL (32-36); Mean Corpuscular Hgb 29.6 pg (27.0-32.0); Mean Corpuscular Volume 90.7 fL (81-99); Mean Platelet Vol. 9.5 fl (6.2-12.0); Monocyte% 7.8 % (0-10); NRBC Flagged by Analyzer 0 % (0-5); Neutrophil % 54.5 % (47-70); Platelet Count 275 K/mm3 (150-450); RBC Distribution Width CV 13.4 % (11.6-14.6); RBC Distribution Width SD 44.7 fl (35.1-43.9); Red Blood Count 4.63 M/mm3 (4.2-5.4); White Blood Count 10.3 K/mm3 (4.4-11.0)
[2022-04-30 22:46] LABS: Prothrombin Time (Protime)PT. 12.9 SECONDS (11.7-14.9)
[2022-04-30 22:47] LABS: Partial Thromboplast Time 28.3 Seconds (24.1-36.2)
[2022-04-30 22:58] LABS: ALB/GLOB Ratio 0.8 RATIO (0.9-2.4); AST(SGOT) 41 U/L (15-37); Alanine Aminotransfer ALT/SGPT 34 U/L (13-56); Albumin, Serum 2.8 g/dL (3.2-5.0); Alkaline Phosphatase 76 U/L (45-117); Anion Gap 10 (5-15); BUN 9 mg/dL (7-18); BUN/Creat Ratio 9.6 RATIO (10-20); Calcium,Total 9.4 mg/dL (8.5-10.1); Chloride 104 mmol/L (98-107); Creatinine, Serum 0.94 mg/dL (0.55-1.02); EST Glomerular Filtration Rate 63 mL/min (>60); Est Glom Filt Rate - Afr Amer 77 mL/min (>60); Estimated Creatinine Clearance 58.02 ml/min; Globulin 3.6 g/dL (2.2-4.2); Glucose 359 mg/dL (74-106); Potassium 3.8 mmol/L (3.5-5.1); Protein, Total 6.4 g/dL (6.4-8.2); Sodium Level 139 mmol/L (136-145); Troponin-I HS 12 pg/mL (3.0-54.0)
[2022-04-30 23:06] LABS: Mucous, Urine 0 SEEN /hpf (<or=2+)
[2022-04-30 23:11] VITALS: BP 129/77; PULSE 96; RESP 22; TEMP 36.7; O2SAT 95
[2022-04-30 23:17] LABS: Glucose, Dipstick 1000 mg/dl (Normal); Ketone-Dipstick 15 mg/dl (Negative); Leukocyte Esterase-Dipstick 25 /ul (Negative); Nitrite-Dipstick Positive (Negative); Occult Blood-Urine 10 /ul (Negative); Protein-Dipstick 15 mg/dl (Negative); Urine Bilirubin Dipstick Negative (Negative); Urine Urobilinogen Normal (Normal)
[2022-04-30 23:18] LABS: Color, Urine Yellow (Yellow); Urine Clarity Sl Cldy (Clear)
[2022-04-30 23:23] LABS: Lactic Acid 3.4 mmol/L (0.4-1.9)
[2022-04-30 23:45] LABS: Bacteria 4+ /hpf (None Seen); Red Blood Cells-Urine 0-5 SEEN /hpf (0-5); Squamous Epithelial Cells - UA 0-5 SEEN /hpf (5-10); White Blood Cells 10-25 SEEN /hpf (0-5); Yeast-Urine RARE /hpf (None Seen)
[2022-05-01] VITALS (14 sets, daily range): BP systolic 111–152; BP diastolic 61–88; PULSE 74–94; RESP 16–20; TEMP 36.6–37; O2SAT 92–100; BMI 37.4
--- NOTE | 2022-05-01 00:12 | HP.PCM.HOS_ITS ---
HPI - General General Date of Admission: 05/01/22 Date of Service: 05/01/22 Chief Complaint: mechanical fall HPI Narrative DAMIEN BROWNLEE, is a 67 F with a PMH as outlined who presents via the ED on 05/01/2022 with a complaint of mechanical fall. She was started on reglan. She has also been taking seroquel and alprazolam. Family said she had been getting more confused and weak whilst on all these meds and has been falling. She siad she go t up and doesnt know what happened and she fell. She denies any fever, chills, nausea, vomiting or diarrhea. She also mentioned she had a fever of 102F at home and she took a tylenol for this; it improved but she subsequently developed a 104F fever at home. She denied any history of frequency or burning with urination. Review of systems was otherwise negative. Vitals in the ED were BP of 129/77, MA of 96, RR of 22 and temp of 98.1F. She was saturating at 95% on room air. CBC was unremarkable, and BMP was remarkable for lactic acid of 3.4 and glucose of 359. Urinalysis showed positive nitrites and 4+ bacteria. She also had 4+ bacteria in December 2021 when she was admitted and managed for UTI. due to ESBL E coli. CT of the brain showed no acute intracranial pathology. She is being admitted to be managed for debility and mechanical falls likely due to polypharmacy and UTI [facility] Medical History (Updated 05/01/22 @ 01:40 by Ngoc Bradley) Anxiety and depression Chronic bronchitis Chronic UTI COPD (chronic obstructive pulmonary disease) Depression Diabetes Diabetes type 2, controlled Diarrhea Essential (primary) hypertension Frequent headaches Gastritis Gastroparesis GERD (gastroesophageal reflux disease) GI problem Leukocytosis Panic disorder with agoraphobia Seasonal allergies Secondary polycythemia Smoker Urinary incontinence Urinary tract infection UTI due to extended-spectrum beta lactamase (ESBL) producing Escherichia coli Vision problem Home Medications promethazine 25 mg tablet 25 mg PO Q6H PRN PRN Nausea 01/09/20 [History Last Taken 01/17/22] carvedilol 3.125 mg tablet 6.25 mg PO BID bp 01/02/22 [History Last Taken 01/17/22] escitalopram oxalate 20 mg tablet 20 mg PO DAILY mood 01/02/22 [History Last Taken 01/17/22] insulin lispro 100 unit/mL subcutaneous pen (Humalog KwikPen (U-100) Insulin) See Protocol subcut TID diabetes 01/02/22 [History Last Taken 01/17/22] naproxen 500 mg tablet (Naprosyn) 500 mg PO BID PRN pain #20 tabs 01/02/22 [Rx Last Taken 01/16/22] ondansetron 4 mg disintegrating tablet 4 mg PO Q8H PRN nausea and vomiting #10 tabs 01/02/22 [Rx Last Taken 01/17/22] atorvastatin 20 mg tablet 20 mg PO QHS cholesterol 01/11/22 [History Last Taken 01/16/22] cholecalciferol (vitamin D3) 50 mcg (2,000 unit) capsule 50 mcg PO DAILY supplement 01/11/22 [History Last Taken 01/13/22] gabapentin 400 mg capsule 400 mg PO TID pain 01/11/22 [History Last Taken 01/17/22] insulin glargine U-300 conc 300 unit/mL (3 mL) subcutaneous pen (Toujeo Max U- 300 SoloStar) 80 unit subcut DAILY diabetes 01/11/22 [History Last Taken 01/17/22] quetiapine 300 mg tablet 300 mg PO QHS mood 01/11/22 [History Last Taken 01/16/22] albuterol sulfate 90 mcg/actuation aerosol inhaler 90 inh inhalation Q4H PRN PRN sob 01/17/22 [History Last Taken 01/17/22] bupropion HCl 150 mg 24 hr tablet, extended release 150 mg PO DAILY mood 01/17/22 [History Last Taken 01/17/22] buspirone 10 mg tablet 10 mg PO TID mood 01/17/22 [History Last Taken 01/17/22] fluticasone furoate 100 mcg-vilanterol 25 mcg/dose inhalation powder (Breo Ellipta) 1 ea inhalation DAILY sob 01/17/22 [History Last Taken 01/17/22] alprazolam 1 mg tablet 1 mg PO TID PRN anxiety #30 tabs 04/26/22 [Rx Last Taken Unknown] metoclopramide HCl 5 mg tablet 5 mg PO TID nausea 05/01/22 [History Last Taken Unknown] omeprazole 40 mg capsule,delayed release 40 mg PO BID gerd 05/01/22 [History Last Taken Unknown] Allergy/AdvReac Type Severity Reaction Status Date / Time Penicillins Allergy Hives Verified 04/30/22 21:53 Sulfa (Sulfonamide Allergy Hives Verified 04/30/22 21:53 Antibiotics) varenicline [From Chantix] Allergy Other Verified 05/01/22 01:30 Family History Brother Diabetes Hypertension Surgical History (Updated 05/01/22 @ 01:40 by Ngoc Bradley) bladder sling H/O tubal ligation History of appendectomy Hx of cholecystectomy S/P complete hysterectomy S/P ORIF (open reduction internal fixation) fracture Social History Smoking Status: Current every day smoker tobacco type: cigarettes second hand exposure: Yes alcohol intake: never substance use type: does not use ROS Constitutional Constitutional: Reports fatigue, fever(s), malaise and weakness; Denies anorexia, change in weight or chills Eyes Eyes: Denies change in vision ENT HEENT: Denies dysphagia or headache(s) Cardiovascular Cardiovascular: Denies chest pain, dyspnea on exertion, edema, lightheadedness, orthopnea, palpitations, paroxysmal nocturnal dyspnea or rapid heart rate Respiratory/Chest Respiratory/Chest: Denies cough, productive cough, shortness of breath at rest or shortness of breath with exertion Gastrointestinal Gastrointestinal: Denies abdominal pain, constipation, diarrhea, nausea or vomiting Genitourinary Genitourinary: Reports burning urination, dysuria and urinary frequency; Denies difficulty urinating, hematuria or nocturia Musculoskeletal Musculoskeletal: Denies arthralgias Neurologic Neurologic: Denies confusion, dizziness, focal weakness or headache(s) Psychiatric Psychiatric: Denies anxiety Vital Signs Vital Signs Vital Signs: 04/30/22 21:54 04/30/22 22:02 04/30/22 22:11 Temperature 98.3 F 97.9 F Temperature Source Oral Oral Pulse Rate 107 H Respiratory Rate 19 H Respiratory Effort Normal Blood Pressure 133/70 H Blood Pressure Mean 91 Pulse Ox 95 Oxygen Delivery Method Room Air Room Air 04/30/22 23:11 Temperature 98.1 F Temperature Source Oral Pulse Rate 96 Respiratory Rate 22 H Respiratory Effort Blood Pressure 129/77 H Blood Pressure Mean 94 Pulse Ox 95 Oxygen Delivery Method Room Air Weight Weight: 244 lb 7.882 oz Body Mass Index (BMI) 38.2 Physical Exam Const alert, oriented x3 and no apparent distress General Appearance: cooperative HEENT normocephalic, head/scalp atraumatic, hearing grossly normal bilaterally and moist oral mucous membranes Mouth: oral and palatal mucosa normal Eyes PERRL, EOMs intact bilaterally and conjunctivae normal Neck no lymphadenopathy, supple and no JVD Resp normal respiratory effort, no retractions, no use of accessory muscles and clear to auscultation bilaterally Cardio regular rate, regular rhythm, S1 normal heart sound, S2 normal heart sound and no murmurs GI normal to inspection, nondistended, normoactive bowel sounds, soft to palpation, non-tender and non-distended Extremity normal to inspection, full ROM and no clubbing, cyanosis or edema Neuro oriented x3, CN's II-XII intact bilaterally, moves all extremities and no focal motor deficits Sensorium / Orientation: awake and alert Motor Exam: strength 5/5 throughout Psych affect normal Results Lab / Micro Data Result Diagrams: 04/30/22 22:10 04/30/22 22:10 Labs: Laboratory Results - last 24 hr 04/30/22 22:10: WBC 10.3, RBC 4.63, Hgb 13.7, Hct 42.0, MCV 90.7, MCH 29.6, MCHC 32.6, RDW Std Deviation 44.7 H, RDW Coeff of Jona 13.4, Plt Count 275, MPV 9.5, Immature Gran % (Auto) 0.400, Neut % (Auto) 54.5, Lymph % (Auto) 35.7, [place] % (Auto) 7.8, Eos % (Auto) 1.2, Baso % (Auto) 0.4, Absolute Neuts (auto) 5.6, Absolute Lymphs (auto) 3.67, Nucleated RBC % 0 04/30/22 22:10: PT 12.9, INR 1.0, APTT 28.3 04/30/22 22:10: Sodium 139, Potassium 3.8, Chloride 104, Carbon Dioxide 25.0, Anion Gap 10, BUN 9, Creatinine 0.94, Estim Creat Clear Calc 58.02, Est GFR (MDRD) Af Amer 77, Est GFR (MDRD) Non-Af 63, BUN/Creatinine Ratio 9.6 L, Glucose 359 H, Calcium 9.4, Total Bilirubin 0.50, AST 41 H, ALT 34, Alkaline Phosphatase 76, Troponin I High Sens 12, Total Protein 6.4, Albumin 2.8 L, Globulin 3.6, Albumin/Globulin Ratio 0.8 L 04/30/22 22:11: Lactic Acid 3.4 H* 04/30/22 22:45: Urine Color Yellow, Urine Clarity Sl Cldy, Urine pH 6.0, Ur Specific [place] 1.020, Urine Protein 15 H, Urine Glucose (UA) 1000 H, Urine Ketones 15 H, Urine Occult Blood 10 H, Urine Nitrite Positive H, Urine Bilirubin Negative, Urine Urobilinogen Normal, Ur Leukocyte Esterase 25 H, Urine RBC 0-5 SEEN, Urine WBC 10-25 SEEN, Ur Squamous Epith Cells 0-5 SEEN, Urine Bacteria 4+, Urine Mucus 0 SEEN, Urine Yeast RARE Micro: Microbiology 04/30/22 22:15 Nasal Secretion SARS-CoV-2 Antigen (Rapid) - Final Radiology Impression Brain CT 04/30/22 22:11 IMPRESSION: No acute intracranial pathology Electronically Signed: Bhavin Edgar MD at 23:43 EDT , Chest X-Ray 04/30/22 22:23 IMPRESSION: No acute disease. Electronically Signed: Bhavin Edgar MD at 23:07 EDT , Assessment & Plan Assessment/Plan (1) Acute UTI: (2) Acute encephalopathy: PLAN: Plan Debility and mechanical falls due to polypharmacy * patient recently started on reglan for intractable nausea and vomiting; also taking seroquel and alprazolam * has been having recurrent falls at home and fell today * hold reglan, seroquel and alprazolam * PT/OT consult * fall precautions * #UTI * urinalysis showed 4+ bacteria, though it showed same back in december 2021 when she was managed for UTi due to ESBL e coli * has a history of allergies to penicillins and sulfonamide antibiotics * will consult ID due to history of recurrent UTI due to ESBL E coli * start on IV cefepime for now. * * #TYpe 2 diabetes mellitus * on lantus 80 units daily * ISS. Accuchecks ACHS * #hypertension: on carvedilol #COPD: on breathing treatment with bronchodilators #Hypertension: on carvedilol #Fibromyalgia: on gabapentin #Depression: on lexapro and wellbutrin DVT prophylaxis; lovenox Code status: full code * Patient counseled extensively about different types of CODE STATUS including full code, DNR CCA and DNR CCA. Patient elects to be full code. * Total [id number] time 17 minutes. # Charges/Coding Visit Charges Inpatient E&M: 66867 Init Hosp L3 Procedures Hospitalists Procedures: 92071 Advncd Care Plan 30 Min
[2022-05-01] MEDS: 0.9% Normal Saline 1,000 ML 999 ML IV (00:13)
[2022-05-01] MEDS: 0.9% Normal Saline 1,000 ML 125 ML IV ×2 (02:01→11:02)
[2022-05-01] MEDS: Insulin Lispro 100 UNIT/ML INSULN.PEN SC ×5 (02:25→21:46)
[2022-05-01 02:26] LABS: Bedside Glucose 315 mg/dL (74-106)
[2022-05-01 03:06] LABS: Reflex Lactate? Y
[2022-05-01 03:35] LABS: Absolute Lymphocyte Count 3.59 X10^3/uL (0.83-4.51); Absolute Neutrophil Count 4.8 X10^3/uL (2.0-7.7); Basophil# 0.04 X10^3/uL; Basophil% 0.4 % (0-1); Eosinophil# 0.12 X10^3/uL; Eosinophils% 1.3 % (0-5); Hematocrit 37.7 % (37-47); Hemoglobin 12.4 g/dL (12.0-15.0); Lymphocyte # 3.59 X10^3/ul (0.83-4.51); Lymphocyte % 38.4 % (19-41); Mean Corp Hgb Conc 32.9 g/dL (32-36); Mean Corpuscular Hgb 30.5 pg (27.0-32.0); Mean Corpuscular Volume 92.6 fL (81-99); Monocyte# 0.75 X10^3/uL; NRBC Flagged by Analyzer 0 % (0-5); Neutrophil % 51.5 % (47-70); Platelet Count 238 K/mm3 (150-450); RBC Distribution Width CV 13.5 % (11.6-14.6); RBC Distribution Width SD 45.7 fl (35.1-43.9); Red Blood Count 4.07 M/mm3 (4.2-5.4); White Blood Count 9.3 K/mm3 (4.4-11.0)
[2022-05-01 04:29] LABS: Anion Gap 7 (5-15); BUN 10 mg/dL (7-18); BUN/Creat Ratio 13.4 RATIO (10-20); Calcium,Total 8.3 mg/dL (8.5-10.1); Chloride 107 mmol/L (98-107); Creatinine, Serum 0.74 mg/dL (0.55-1.02); EST Glomerular Filtration Rate 83 mL/min (>60); Est Glom Filt Rate - Afr Amer 101 mL/min (>60); Estimated Creatinine Clearance 70.95 ml/min; Glucose 298 mg/dL (74-106); Potassium 3.4 mmol/L (3.5-5.1); Sodium Level 139 mmol/L (136-145)
[2022-05-01 04:36] LABS: Lactic Acid 2.5 mmol/L (0.4-1.9)
[2022-05-01] MEDS: busPIRone 5 MG Tablet 10 MG PO ×3 (06:50→21:47)
[2022-05-01] MEDS: Potassium Chloride Oral Tablet 20 MEQ 40 MEQ PO (07:17)
[2022-05-01 07:20] LABS: Bedside Glucose 273 mg/dL (74-106)
[2022-05-01] MEDS: Budesonide Respules 0.5 MG/2 ML AMPUL.NEB. INHALATION ×2 (07:36→20:51)
[2022-05-01] MEDS: Albuterol 2.5 MG/3 ML VIAL.NEB. INHALATION ×3 (07:36→20:51)
[2022-05-01] MEDS: Pantoprazole Sodium 40 MG Tablet PO (09:24)
[2022-05-01] MEDS: Escitalopram Oxalate 20 MG Tablet PO (09:24)
[2022-05-01] MEDS: Cholecalciferol (VIT D3) 25 MCG TABLET (1,000 UNITS) 50 MCG PO (09:24)
[2022-05-01] MEDS: buPROPion (XL) 150 MG TABLET.XL PO (09:24)
[2022-05-01] MEDS: Enoxaparin 40 MG/0.4 ML Syringe SC (09:25)
[2022-05-01] MEDS: Carvedilol 6.25 MG Tablet PO ×2 (09:25→16:14)
[2022-05-01] MEDS: Insulin Glargine-YFGN 100 UNIT/ML Pen 80 UNIT SC (09:26)
--- NOTE | 2022-05-01 09:39 | PN.HOSP_ITS ---
Subjective Subjective Follow-up for fall, 2 times yesterday. Patient also has increased burning micturition, frequency and urgency and his tory of recurrent UTI. Patient has poor mobility, balance. She also complains of mild dizziness yes terday. She is on Seroquel and alprazolam at home. She also has cough for about 2 weeks, felt mild vibration but no shortness of breath or chest pain. Objective Data Objective Data Vital Signs: Vital Signs Temp Pulse Resp BP Pulse Ox O2 Del Method 98.6 F 88 18 130/67 H 96 Room Air 05/01/22 09:22 05/01/22 09:22 05/01/22 09:22 05/01/22 09:22 05/01/22 09:05/01/22 09:36 Oxygen Delivery Method Room Air Weight: 238 lb 12.17 oz Body Mass Index (BMI) 37.4 Intake & Output: Intake and Output for Last 24 Hours 04/29/22 04/30/22 05/01/22 23:59 23:59 23:59 Intake Total 1050 / 1050 Output Total 300 / 300 Balance 750 / 750 Lab / Micro Data Result Diagrams: 05/01/22 03:22 05/01/22 03:22 Labs: Laboratory Results - last 24 hr 04/30/22 22:10: WBC 10.3, RBC 4.63, Hgb 13.7, Hct 42.0, MCV 90.7, MCH 29.6, MCHC 32.6, RDW Std Deviation 44.7 H, RDW Coeff of Jona 13.4, Plt Count 275, MPV 9.5, Immature Gran % (Auto) 0.400, Neut % (Auto) 54.5, Lymph % (Auto) 35.7, [place] % (Auto) 7.8, Eos % (Auto) 1.2, Baso % (Auto) 0.4, Absolute Neuts (auto) 5.6, Absolute Lymphs (auto) 3.67, Nucleated RBC % 0 04/30/22 22:10: PT 12.9, INR 1.0, APTT 28.3 04/30/22 22:10: Sodium 139, Potassium 3.8, Chloride 104, Carbon Dioxide 25.0, Anion Gap 10, BUN 9, Creatinine 0.94, Estim Creat Clear Calc 58.02, Est GFR (MDRD) Af Amer 77, Est GFR (MDRD) Non-Af 63, BUN/Creatinine Ratio 9.6 L, Glucose 359 H, Calcium 9.4, Total Bilirubin 0.50, AST 41 H, ALT 34, Alkaline Phosphatase 76, Troponin I High Sens 12, Total Protein 6.4, Albumin 2.8 L, Globulin 3.6, Albumin/Globulin Ratio 0.8 L 04/30/22 22:11: Lactic Acid 3.4 H* 04/30/22 22:45: Urine Color Yellow, Urine Clarity Sl Cldy, Urine pH 6.0, Ur Specific Alto 1.020, Urine Protein 15 H, Urine Glucose (UA) 1000 H, Urine Ketones 15 H, Urine Occult Blood 10 H, Urine Nitrite Positive H, Urine Bilirubin Negative, Urine Urobilinogen Normal, Ur Leukocyte Esterase 25 H, Urine RBC 0-5 SEEN, Urine WBC 10-25 SEEN, Ur Squamous Epith Cells 0-5 SEEN, Urine Bacteria 4+, Urine Mucus 0 SEEN, Urine Yeast RARE 05/01/22 01:58: POC Glucose 315 H 05/01/22 03:22: WBC 9.3, RBC 4.07 L, Hgb 12.4, Hct 37.7, MCV 92.6, MCH 30.5, MCHC 32.9, RDW Std Deviation 45.7 H, RDW Coeff of Jona 13.5, Plt Count 238, MPV 9.0, Immature Gran % (Auto) 0.400, Neut % (Auto) 51.5, Lymph % (Auto) 38.4, [place] % (Auto) 8.0, Eos % (Auto) 1.3, Baso % (Auto) 0.4, Absolute Neuts (auto) 4.8, Absolute Lymphs (auto) 3.59, Nucleated RBC % 0 05/01/22 03:22: Sodium 139, Potassium 3.4 L, Chloride 107, Carbon Dioxide 25.0, Anion Gap 7, BUN 10, Creatinine 0.74, Estim Creat Clear Calc 70.95, Est GFR (MDRD) Af Amer 101, Est GFR (MDRD) Non-Af 83, BUN/Creatinine Ratio 13.4, Glucose 298 H, Calcium 8.3 L 05/01/22 03:22: Lactic Acid 2.5 H* 05/01/22 06:48: POC Glucose 273 H Micro: Microbiology 04/30/22 22:15 Nasal Secretion SARS-CoV-2 Antigen (Rapid) - Final Radiography Diagnostic Testing: Radiology Impression Brain CT 04/30/22 22:11 IMPRESSION: No acute intracranial pathology Electronically Signed: Bhavin Edgar MD at 23:43 EDT , Chest X-Ray 04/30/22 22:23 IMPRESSION: No acute disease. Electronically Signed: Bhavin Edgar MD at 23:07 EDT , Physical Exam Narrative General: Alert, Oriented x3, Cooperative HEENT: Atraumatic, PERRLA, EOMI, Normocephalic Oral: No Gingival or Mucosal Lesions/ Ulcerations Neck: Supple, No JVD, Negative Carotid Bruits Lungs: Air entry diminished in bilateral lung bases. Bilateral fine crepitations. Cardiovascular: Regular rate, Regular Rhythm, Normal S1, Normal S2, No murmurs Abdomen: Bowel Sounds Present, Soft, Non Tender, Non-Distended : Increased frequency, dysuria and urgency. No renal angle tenderness. No suprapubic tenderness. Extremities: No edema, Capillary Refill Less than 3 Seconds Skin: Superficial abrasion and bruise on knees. Musculoskeletal: Mild tenderness of both knees. Poor mobility and balance Neurological: Cranial nerves II-XII grossly intact, DTR 2+/4, muscle strength 4/5 at bilateral knee and hip joints. Psych/Mental Status: Flat affect. Assessment & Plan Assessment/Plan (1) Acute UTI: (2) Acute encephalopathy: PLAN: Plan Debility and mechanical falls due to polypharmacy along with mild dizziness and lightheadedness probably due to medications * patient recently started on reglan for intractable nausea and vomiting; also taking seroquel and alprazolam * has been having recurrent falls at home and fell today * hold reglan, seroquel and alprazolam * PT/OT consult * fall precautions #UTI * urinalysis showed 4+ bacteria, though it showed same back in december 2021 when she was managed for UTi due to ESBL e coli.Physical exam patient is elevated lactic acid but she has elevated lactic acid since December 2021.No fever. No hypotension. Patient does not look toxic or septic. Sepsis ruled out. ID is consulted for history of ESBL E. coli and recurrent UTI. History of allergy to penicillin and sulfonamide antibiotics. On IV cefepime for now. #TYpe 2 diabetes mellitus: Glucose is not controlled, glucose 298. Accu-Cheks and titrate the dose insulin accordingly. Lantus 20 units at night and Humalog 20 units 3 times daily AC with meals added. * on lantus 80 units daily * ISS. Accuchecks ACHS #hypertension: on carvedilol #COPD: on breathing treatment with bronchodilators #Hypertension: on carvedilol #Fibromyalgia: on gabapentin #Depression: on lexapro and wellbutrin DVT prophylaxis; lovenox Code status: full code * Patient counseled extensively about different types of CODE STATUS including full code, DNR CCA and DNR CCA. Patient elects to be full code. * Total [id number] time 17 minutes. # Charges/Coding Visit Charges Inpatient E&M: 74298 Subs Hosp L2
--- NOTE | 2022-05-01 10:30 | CASEMGMT ---
NITIN REA Face to Face with patient for initial transition planning/care coordination assessment. RN CM introduced self and role at [facility]. Patient sitting in chair, alert and oriented. Patient willing to participate in assessment and is able to answer all questions appropriately. Care providers, pharmacy, and demographics verified. Patient wishes to discharge home, will monitor for need for HHC. Patient states she has no further needs or concerns at this time. CM to follow for discharge planning needs that may arise. PCP: Aarti Specialists: Friend, GI Preferred Pharmacy: [facility]; [facility] retail at discharge. Insurance: [facility], [employer] Prescription Benefit: yes, [employer] Living Will/HPOA: none LNOK: , daughter, granddaughter Living Arrangements: Patient lives with in mobile home with 4 steps and railing to enter the home. Patient states she is independent at home for self care, helps with household Transportation: DME/HHC: Patient states she has walker, nebulizer, glucometer with supplies, and insulin with supplies. Patient denies previous HHC or SNF. Disposition Plan: Patient to discharge home with family support and follow-up plans in place. Will monitor for possible HHC at discharge. Rachel LEVINE, RN, CM
[2022-05-01 11:40] LABS: Bedside Glucose 369 mg/dL (74-106)
--- NOTE | 2022-05-01 11:48 | CASEMGMT ---
Noted therapy is anticipating HHC at [facility] for patient. NITIN REA in to pt room, pt lying in bed. Discussed HHC and patient states she lives in a small trailer and does not need this. Discussed that therapy could evaluate her home for fall prevention and also assist with strengthening. Pt denies need for this at this time. Pt also denied need for outpt therapy. Pt states she had UTI in October, she did not have IV antibiotics at home. Pt is aware of ID consult, she is aware that RN RONA will follow to see if IV antibiotics are needed. Pt states she would be agreeable to [facility] for SN if IV's are needed. Pt states she needs to get rid of this infection.
[2022-05-01] MEDS: Naproxen 500 MG Tablet PO ×2 (12:58→21:49)
[2022-05-01] MEDS: Ondansetron ODT 4 MG Tablet PO (15:31)
[2022-05-01 17:01] LABS: Bedside Glucose 261 mg/dL (74-106)
[2022-05-01] MEDS: Insulin Glargine-YFGN 100 UNIT/ML Pen 20 UNIT SC (21:47)
[2022-05-01] MEDS: Atorvastatin Calcium 20 MG Tablet PO (21:48)
[2022-05-01] MEDS: proMETHazine 25 MG Tablet PO (21:52)
[2022-05-01 22:15] LABS: Bedside Glucose 232 mg/dL (74-106)
[2022-05-02] VITALS (12 sets, daily range): BP systolic 138–160; BP diastolic 67–79; PULSE 70–78; RESP 17–18; TEMP 36.6–36.7; O2SAT 92–98
[2022-05-02] MEDS: busPIRone 5 MG Tablet 10 MG PO ×3 (06:18→21:03)
[2022-05-02 06:51] LABS: Bedside Glucose 218 mg/dL (74-106)
[2022-05-02] MEDS: Budesonide Respules 0.5 MG/2 ML AMPUL.NEB. INHALATION ×2 (07:10→19:01)
[2022-05-02] MEDS: Albuterol 2.5 MG/3 ML VIAL.NEB. INHALATION ×2 (07:10→19:01)
[2022-05-02] MEDS: Naproxen 500 MG Tablet PO ×2 (07:40→21:19)
[2022-05-02] MEDS: Carvedilol 6.25 MG Tablet PO ×2 (07:40→16:24)
[2022-05-02] MEDS: Insulin Lispro 100 UNIT/ML INSULN.PEN 20 UNIT SC ×2 (07:40→11:19)
[2022-05-02] MEDS: Ondansetron ODT 4 MG Tablet PO (07:40)
[2022-05-02] MEDS: Insulin Lispro 100 UNIT/ML INSULN.PEN SC ×3 (07:40→21:18)
[2022-05-02] MEDS: Escitalopram Oxalate 20 MG Tablet PO (09:45)
[2022-05-02] MEDS: Enoxaparin 40 MG/0.4 ML Syringe SC (09:45)
[2022-05-02] MEDS: Cholecalciferol (VIT D3) 25 MCG TABLET (1,000 UNITS) 50 MCG PO (09:45)
[2022-05-02] MEDS: Pantoprazole Sodium 40 MG Tablet PO (09:45)
[2022-05-02] MEDS: buPROPion (XL) 150 MG TABLET.XL PO (09:45)
--- NOTE | 2022-05-02 10:23 | US_ITS ---
EXAM: US RETROPERITONEAL LIMITED, RENAL CLINICAL INDICATION: recurrent uti TECHNIQUE: Limited grayscale and color Doppler sonographic evaluation of the retroperitoneum was performed. This report was created using [employer] report generation technology. COMPARISON: None. FINDINGS: RIGHT KIDNEY: Right kidney is unremarkable measuring 13.2 in length. No hydronephrosis. No shadowing calculus. No perinephric collection is demonstrated. LEFT KIDNEY: Left kidney measures 13.9 cm in length with a cyst measuring measuring 3 cm at the interpolar level peripherally. No hydronephrosis. No shadowing calculus. No perinephric collection is demonstrated. BLADDER: Distended bladder volume is 137 mL with top normal bladder wall thickness of 4.8 mm. US/Kidney and Bladder IMPRESSION: 1. 3 cm benign left renal cyst. 2. No other significant pathology. Electronically Signed: Bhavin Edgar MD at 0:56 EDT ,
--- NOTE | 2022-05-02 10:24 | PCM.CONS.GEN ---
Assessment & Plan Assessment/Plan (1) Chronic UTI: (2) UTI due to extended-spectrum beta lactamase (ESBL) producing Escherichia coli: PLAN: Will change to meropenem and check renal/bladder u/s. Will follow, thank you HPI Consult Data Date of Consult: 05/02/22 HPI Narrative Reason for Consultation: esbl infection HPI Narrative: DAMIEN BROWNLEE, is a 67 F with COPD, DM, fibromyalgia, presented with several months of nausea, abd pain, dysuria, fatigue, not feeling well. Sx present since 2 days after she was discharged from here 12/2021 for esbl uti. No recent abx. Came to ED, admitted on cefepime, not feeling any better. Some headache, some chronic dry cough. Full ROS performed and neg except as noted above. [facility] Medical History (Updated 05/02/22 @ 10:[address] Manolo Wade MD) Anxiety and depression Chronic bronchitis Chronic UTI COPD (chronic obstructive pulmonary disease) Depression Diabetes Diabetes type 2, controlled Diarrhea Essential (primary) hypertension Frequent headaches Gastritis Gastroparesis GERD (gastroesophageal reflux disease) GI problem Leukocytosis Panic disorder with agoraphobia Seasonal allergies Secondary polycythemia Smoker Urinary incontinence Urinary tract infection UTI due to extended-spectrum beta lactamase (ESBL) producing Escherichia coli Vision problem Home Medications promethazine 25 mg tablet 25 mg PO Q6H PRN PRN Nausea 01/09/20 [History Last Taken 01/17/22] carvedilol 3.125 mg tablet 6.25 mg PO BID bp 01/02/22 [History Last Taken 01/17/22] escitalopram oxalate 20 mg tablet 20 mg PO DAILY mood 01/02/22 [History Last Taken 01/17/22] insulin lispro 100 unit/mL subcutaneous pen (Humalog KwikPen (U-100) Insulin) See Protocol subcut TID diabetes 01/02/22 [History Last Taken 01/17/22] naproxen 500 mg tablet (Naprosyn) 500 mg PO BID PRN pain #20 tabs 01/02/22 [Rx Last Taken 01/16/22] ondansetron 4 mg disintegrating tablet 4 mg PO Q8H PRN nausea and vomiting #10 tabs 01/02/22 [Rx Last Taken 01/17/22] atorvastatin 20 mg tablet 20 mg PO QHS cholesterol 01/11/22 [History Last Taken 01/16/22] cholecalciferol (vitamin D3) 50 mcg (2,000 unit) capsule 50 mcg PO DAILY supplement 01/11/22 [History Last Taken 01/13/22] gabapentin 400 mg capsule 400 mg PO TID pain 01/11/22 [History Last Taken 01/17/22] insulin glargine U-300 conc 300 unit/mL (3 mL) subcutaneous pen (Toujeo Max U-300 SoloStar) 80 unit subcut DAILY diabetes 01/11/22 [History Last Taken 01/17/22] quetiapine 300 mg tablet 300 mg PO QHS mood 01/11/22 [History Last Taken 01/16/22] albuterol sulfate 90 mcg/actuation aerosol inhaler 90 inh inhalation Q4H PRN PRN sob 01/17/22 [History Last Taken 01/17/22] bupropion HCl 150 mg 24 hr tablet, extended release 150 mg PO DAILY mood 01/17/22 [History Last Taken 01/17/22] buspirone 10 mg tablet 10 mg PO TID mood 01/17/22 [History Last Taken 01/17/22] fluticasone furoate 100 mcg-vilanterol 25 mcg/dose inhalation powder (Breo Ellipta) 1 ea inhalation DAILY sob 01/17/22 [History Last Taken 01/17/22] alprazolam 1 mg tablet 1 mg PO TID PRN anxiety #30 tabs 04/26/22 [Rx Last Taken Unknown] metoclopramide HCl 5 mg tablet 5 mg PO TID nausea 05/01/22 [History Last Taken Unknown] omeprazole 40 mg capsule,delayed release 40 mg PO BID gerd 05/01/22 [History Last Taken Unknown] Allergy/AdvReac Type Severity Reaction Status Date / Time Penicillins Allergy Hives Verified 04/30/22 21:53 Sulfa (Sulfonamide Allergy Hives Verified 04/30/22 21:53 Antibiotics) varenicline [From Chantix] Allergy Other Verified 05/01/22 01:30 Family History Brother Diabetes Hypertension Surgical History (Updated 05/01/22 @ 01:40 by Ngoc Bradley) bladder sling H/O tubal ligation History of appendectomy Hx of cholecystectomy S/P complete hysterectomy S/P ORIF (open reduction internal fixation) fracture Social History Smoking Status: Current every day smoker tobacco type: cigarettes second hand exposure: Yes alcohol intake: never substance use type: does not use Physical Exam Const alert, oriented x3 and no apparent distress General Appearance: cooperative HEENT normocephalic and head/scalp atraumatic Eyes PERRL and EOMs intact bilaterally Neck supple and No nodes Resp normal air movement and clear to auscultation bilaterally Cardio regular rate and regular rhythm GI soft to palpation, non-tender and non-distended Extremity General Extremity: edema Skin no rashes or lesions noted Lab / Micro Data Attestation: I reviewed the patient's lab results. Result Diagrams: 05/01/22 03:22 05/01/22 03:22 Labs: Laboratory Results - last 24 hr 05/01/22 11:00: POC Glucose 369 H 05/01/22 16:10: POC Glucose 261 H 05/01/22 21:45: POC Glucose 232 H 05/02/22 06:16: POC Glucose 218 H Micro: Microbiology 04/30/22 22:45 Urine, Clean Catch Urine Culture - Preliminary Escherichia coli
[2022-05-02] MEDS: 0.9% Saline Lock 10 ML Syringe IV ×3 (11:18→21:09)
[2022-05-02 11:45] LABS: Bedside Glucose 220 mg/dL (74-106)
--- NOTE | 2022-05-02 12:26 | CASEMGMT ---
Addendum entered by Leidy Goldstein 05/02/22 15:56: NITIN REA in to pt room, pt states she does not need a FWW that she does have one from a family member at home. Pt has chosen [facility] for services. GRAYSON Najera at [facility], referral made. Will await acceptance. Addendum entered by Leidy Goldstein 05/02/22 12:47: Prelim info sent to [facility] at this time. Original Note: Discussed pt care with ID who states pt will likely dc with IV atb or IM daily injections. NITIN REA in to pt room, patient was provided a list of HHC/DME/Infusion providers including quality and resource use data and consistent with the patient?s preferred geographic region, medical needs, and insurance network were provided from the [employer] Guide (HH only). Pt to review list for HHC. Noted FWW in room that pt is using. Pt states she does not have this at home. She chose [employer] for the DME company for this and [facility] for the infusion company. Pt is agreeable to having SN,PT and OT to eval in the home. Discussed HHC expectations. Pt denies further needs at this time.
--- NOTE | 2022-05-02 15:31 | PN.HOSP_ITS ---
Subjective Subjective Follow-up for ESBL E. coli UTI. Patient has history of recurrent UTI, ESBL. She said she had bladder sling surgery couple years ago. And her UTIs started after that. She is not confused or disoriented. Objective Data Objective Data Vital Signs: Vital Signs Temp Pulse Resp BP Pulse Ox O2 Del Method 98 F 72 18 148/69 H 94 Room Air 05/02/22 14:22 05/02/22 14:22 05/02/22 14:22 05/02/22 14:22 05/02/22 14:22 05/02/22 14:22 Oxygen Delivery Method Room Air Weight: 238 lb 12.17 oz Body Mass Index (BMI) 37.4 Intake & Output: Intake and Output for Last 24 Hours 04/30/22 05/01/22 05/02/22 23:59 23:59 23:59 Intake Total 3150 / 3390 540 / 540 Output Total 300 / 300 Balance 2850 / 3090 540 / 540 Lab / Micro Data Result Diagrams: 05/01/22 03:22 05/01/22 03:22 Labs: Laboratory Results - last 24 hr 05/01/22 16:10: POC Glucose 261 H 05/01/22 21:45: POC Glucose 232 H 05/02/22 06:16: POC Glucose 218 H 05/02/22 11:17: POC Glucose 220 H Micro: Microbiology 04/30/22 22:45 Urine, Clean Catch Urine Culture - Preliminary Escherichia coli 04/30/22 22:15 Nasal Secretion SARS-CoV-2 Antigen (Rapid) - Final Physical Exam Narrative General: Alert, Oriented x3, Cooperative HEENT: Atraumatic, PERRLA, EOMI, Normocephalic Oral: No Gingival or Mucosal Lesions/ Ulcerations Neck: Supple, No JVD, Negative Carotid Bruits Lungs: Air entry diminished in bilateral lung bases. No crepitation/rhonchi. Cardiovascular: Regular rate, Regular Rhythm, Normal S1, Normal S2, No murmurs Abdomen: Bowel Sounds Present, Soft, Non Tender, Non-Distended : Increased frequency, dysuria and urgency. No renal angle tenderness. No suprapubic tenderness. Extremities: No edema, Capillary Refill Less than 3 Seconds Skin: Superficial abrasion and bruise on knees healing. Musculoskeletal: Mild tenderness of both knees. Poor mobility and balance Neurological: Cranial nerves II-XII grossly intact, DTR 2+/4, muscle strength 4/5 at bilateral knee and hip joints. Psych/Mental Status: Flat affect. Assessment & Plan Assessment/Plan (1) Acute UTI: (2) Acute encephalopathy: PLAN: Plan Debility and mechanical falls due to polypharmacy along with mild dizziness and lightheadedness probably due to medications * patient recently started on reglan for intractable nausea and vomiting; also taking seroquel and alprazolam * has been having recurrent falls at home and fell today * hold reglan, seroquel and alprazolam * PT/OT consult * fall precautions * Acute encephalopathy due to polypharmacy: Resolved #UTI * urinalysis showed 4+ bacteria, though it showed same back in december 2021 when she was managed for UTi due to ESBL e coli.Physical exam patient is elevated lactic acid but she has elevated lactic acid since December 2021.No fever. No hypotension. Patient does not look toxic or septic. Sepsis ruled out. ID is consulted for history of ESBL E. coli and recurrent UTI. History of allergy to penicillin and sulfonamide antibiotics. On IV cefepime for now. 05/02: Patient seen by ID. Started on IV meropenem. Renal and bladder ultrasound ordered. Next #TYpe 2 diabetes mellitus: Glucose is not controlled, glucose 298. Accu-Cheks and titrate the dose insulin accordingly. Lantus 20 units at night and Humalog 20 units 3 times daily AC with meals added. * on lantus 80 units daily * ISS. Accuchecks ACHS 05/02: Glucose is 200 to 250 mg/dL. Insulin dose titrated up. #hypertension: on carvedilol #COPD: on breathing treatment with bronchodilators #Hypertension: on carvedilol #Fibromyalgia: on gabapentin #Depression: on lexapro and wellbutrin DVT prophylaxis; lovenox Code status: full code * Patient counseled extensively about different types of CODE STATUS including full code, DNR CCA and DNR CCA. Patient elects to be full code. * Total tqnh-cl-hjhv time 17 minutes. Microbiology Past 72 Hours 04/30/22 22:45 Urine, Clean Catch Urine Culture - Preliminary Escherichia coli 04/30/22 22:15 Nasal Secretion SARS-CoV-2 Antigen (Rapid) - Final Laboratory Results 05/01/22 16:10: POC Glucose 261 H 05/01/22 21:45: POC Glucose 232 H 05/02/22 06:16: POC Glucose 218 H 05/02/22 11:17: POC Glucose 220 H Charges/Coding Visit Charges Inpatient E&M: 13147 Subs Hosp L2
[2022-05-02] MEDS: Metoclopramide 10 MG/2 ML Vial 5 MG IV (16:24)
[2022-05-02 16:50] LABS: Bedside Glucose 113 mg/dL (74-106)
[2022-05-02] MEDS: Atorvastatin Calcium 20 MG Tablet PO (21:02)
[2022-05-02] MEDS: Ondansetron 4 MG/2 ML Vial IV (21:03)
[2022-05-02] MEDS: Insulin Glargine-YFGN 100 UNIT/ML Pen 30 UNIT SC (21:20)
[2022-05-02 21:51] LABS: Bedside Glucose 242 mg/dL (74-106)
[2022-05-03] VITALS (9 sets, daily range): BP systolic 144–175; BP diastolic 72–92; PULSE 64–82; RESP 16–20; TEMP 36.2–36.6; O2SAT 95–98
[2022-05-03] MEDS: busPIRone 5 MG Tablet 10 MG PO (05:21)
[2022-05-03] MEDS: Carvedilol 6.25 MG Tablet PO (05:45)
[2022-05-03 06:02] LABS: Absolute Lymphocyte Count 3.33 X10^3/uL (0.83-4.51); Basophil# 0.05 X10^3/uL; Basophil% 0.5 % (0-1); Eosinophils% 2.2 % (0-5); Hematocrit 40.6 % (37-47); Hemoglobin 13.2 g/dL (12.0-15.0); Lymphocyte # 3.33 X10^3/ul (0.83-4.51); Lymphocyte % 36.2 % (19-41); Mean Corp Hgb Conc 32.5 g/dL (32-36); Mean Corpuscular Hgb 30.1 pg (27.0-32.0); Mean Corpuscular Volume 92.5 fL (81-99); Mean Platelet Vol. 8.7 fl (6.2-12.0); Monocyte# 0.59 X10^3/uL; Monocyte% 6.4 % (0-10); NRBC Flagged by Analyzer 0 % (0-5); Neutrophil # 4.95 X10^3/uL (2.7-7.7); Neutrophil % 53.9 % (47-70); Platelet Count 256 K/mm3 (150-450); RBC Distribution Width CV 13.2 % (11.6-14.6); RBC Distribution Width SD 44.6 fl (35.1-43.9); Red Blood Count 4.39 M/mm3 (4.2-5.4); White Blood Count 9.2 K/mm3 (4.4-11.0)
[2022-05-03 06:23] LABS: Anion Gap 5 (5-15); BUN 9 mg/dL (7-18); BUN/Creat Ratio 15.4 RATIO (10-20); Calcium,Total 8.2 mg/dL (8.5-10.1); Chloride 109 mmol/L (98-107); Creatinine, Serum 0.58 mg/dL (0.55-1.02); EST Glomerular Filtration Rate 110 mL/min (>60); Est Glom Filt Rate - Afr Amer 133 mL/min (>60); Estimated Creatinine Clearance 90.53 ml/min; Glucose 202 mg/dL (74-106); Potassium 4.2 mmol/L (3.5-5.1); Sodium Level 139 mmol/L (136-145)
[2022-05-03] MEDS: Budesonide Respules 0.5 MG/2 ML AMPUL.NEB. INHALATION (06:55)
[2022-05-03] MEDS: Albuterol 2.5 MG/3 ML VIAL.NEB. INHALATION ×2 (06:55→13:31)
[2022-05-03] MEDS: 0.9% Saline Lock 10 ML Syringe IV (07:44)
[2022-05-03] MEDS: Metoclopramide 10 MG/2 ML Vial 5 MG IV (07:44)
[2022-05-03] MEDS: Insulin Lispro 100 UNIT/ML INSULN.PEN SC ×2 (07:44→11:12)
[2022-05-03 07:45] LABS: Bedside Glucose 209 mg/dL (74-106)
--- NOTE | 2022-05-03 08:52 | CASEMGMT ---
Addendum entered by Leidy Goldstein 05/03/22 15:05: TC to [facility] Infusion, spoke with Suzie. Able to see pt tomorrow at 11am. Pt has left the building prior to this being set up. Suzie to call pt and make aware of time. Addendum entered by Leidy Goldstein 05/03/22 13:30: TC back from Suman at [facility], pt cost is for supplies that are not covered by insurance. Per , pt agreeable to Infusion Center at [facility] for referral. Pt is not sure she can drive herself but has transportation to do so. TC to [facility] Infusion Center, left message with referral. Faxed info at this time. Will await returned call. Addendum entered by Leidy Goldstein 05/03/22 13:00: If patient goes to Infusion [facility], pt is covered 100%. Initially pt declined this option. TC back to [facility] to verify with [facility] that pt will still have copay, awaiting returned call. Addendum entered by Leidy Goldstein 05/03/22 12:16: Received acceptance from [facility] for SOC tomorrow. [facility] states cost of med will be $140/wk. NITIN ERA in to pt room to make aware. Pt states she does not have the money to pay for this. Discussed checking on possibility of a payment plan. Pt now asks if this would be covered 100% if she goes to a facility. Will check with . Addendum entered by Leidy Goldstein 05/03/22 10:11: Received tc from Maral [facility], they are not able to accept pt d/t staffing for tomorrow. Addendum entered by Leidy Goldstein 05/03/22 09:50: NITIN REA notified pt will have 8 days of IV atb daily. NITIN REA in to pt room, pt states she has her granddtr and who are able to learn IV. She prefers not to go to the Infusion Center. She is aware that [facility] cannot take her. Pt denies second choice. She states she is agreeable to anyone who will come to her home. TC to Bhavin at [facility] who states that they do not have staffing. TC to Chuck at [facility], left message with referral. TC to Kevin at [facility], states they do not have staffing in [place]. TC to [facility], they are unable to staff pt. TC to Maral at [facility], she will check for availability. TC to [facility], left message with intake Ning. Original Note: Received notification that [facility] cannot accept pt for services.
[2022-05-03] MEDS: Enoxaparin 40 MG/0.4 ML Syringe SC (09:50)
[2022-05-03] MEDS: Escitalopram Oxalate 20 MG Tablet PO (09:50)
[2022-05-03] MEDS: buPROPion (XL) 150 MG TABLET.XL PO (09:50)
[2022-05-03] MEDS: Cholecalciferol (VIT D3) 25 MCG TABLET (1,000 UNITS) 50 MCG PO (09:50)
[2022-05-03] MEDS: Pantoprazole Sodium 40 MG Tablet PO (09:50)
[2022-05-03] MEDS: Insulin Glargine-YFGN 100 UNIT/ML Pen 50 UNIT SC (09:51)
--- NOTE | 2022-05-03 09:56 | PN.ID_ITS ---
Physical Exam Narrative Feeling better, no fever, discomfort improved. Const alert and no apparent distress Resp normal air movement and clear to auscultation bilaterally Cardio regular rate and regular rhythm GI soft to palpation, non-tender and non-distended Skin no rashes or lesions noted ID ID: Route of nutrition/ use of supplements: [] Nutritional Intake: [] IV Site: [] Pathak Catheter: [] Assessment & Plan Assessment/Plan (1) Chronic UTI: (2) UTI due to extended-spectrum beta lactamase (ESBL) producing Escherichia coli: PLAN: U/s showed no stone/abscess/hydro. Sx improved on meropenem. Will order midline, change to iv erta, plan on 10 days total with course to complete with ertapenem at home with weekly labs. Recommend urology followup. Will follow, d/w Dr. Castro and rehabilitation caseworker
--- NOTE | 2022-05-03 10:00 | DCINST_ITS ---
Discharge Instructions Diet Discharge Diet: Low fat / Low cholesterol, 1800 Calorie Control Diet and 2000 mg Sodium Diet Activity Weight Bearing Status: Weight bearing as tolerated Dressing / Incision Call your doctor if you observe: Fever of 101 or Higher, Coldness, Increased Pain, Numbness or Tingling, Change in Color, Inability to urinate, Inability to have a bowel movement, Using more than 1 pad per hour, Shortness of breath, Dizziness, Fainting spells, Swelling in the ankles, Chest pain, Prolonged hiccupping, Increased palpitations (irregular heartbeat), Calf discomfort and Uncontrolled pain Follow Up Care Test Results: Test results from this visit will be discussed in further detail at your follow- up appointment, if applicable. Discharge Plan Admission Admit Date/Time: 05/01/22 00:23 Primary Reason for Your Visit: Acute on recurrent UTI, ESBL E. coli Attending Provider: Naveen Castro Primary Care Provider: Ricci Broussard Consulting Providers: Pippa Brice ; Manolo Wade Discharge Orders/Prescriptions Prescriptions: New ertapenem 1 gram Recon Soln 1 g IV Q24 8 Days Qty: 8 0RF Rx Instructions: stop date 05/11/22 dx:esbl uti weekly bmp, cbc, and LFT. Fax to [phone]. insulin lispro [Humalog KwikPen Insulin] 100 unit/mL Insulin Pen 30 unit subcut TIDAC Qty: 15 0RF insulin glargine-yfgn 100 unit/mL (3 mL) Insulin Pen 30 unit subcut QHS Qty: 0 0RF pantoprazole 40 mg Tablet,Delayed Release (Dr/Ec) 40 mg PO DAILY Qty: 30 0RF insulin lispro [Humalog KwikPen Insulin] 100 unit/mL Insulin Pen See Protocol subcut ACHS Qty: 0 0RF Protocol: 3. Sliding Scale Insulin Med Dosing Condition: 150-189 mg/dl = 1 unit Condition: 190-229 mg/dl = 2 units Condition: 230-269 mg/dl = 3 units Condition: 270-309 mg/dl = 4 units Condition: 310-349 mg/dl = 5 units Condition: 350-399 mg/dl = 6 units Condition: 400-449 mg/dl = 7 units Condition: Greater than 449 call physician Protocol Text: - Use for Total Daily Dose of Insulin 37-55 units - Obsese, infected, or steroid patients MEDIUM DOSING ALGORITHIM Continued atorvastatin 20 mg tablet 20 mg PO QHS cholecalciferol (vitamin D3) 50 mcg (2,000 unit) capsule 50 mcg PO DAILY gabapentin 400 mg capsule 400 mg PO TID quetiapine 300 mg tablet 300 mg PO QHS alprazolam 1 mg tablet 1 mg PO TID PRN (Reason: anxiety) Qty: 30 0RF carvedilol 3.125 mg tablet 6.25 mg PO BID Label Comments: TAKE 2 TABLETS BY MOUTH TWICE A DAY escitalopram oxalate 20 mg tablet 20 mg PO DAILY Label Comments: TAKE 1 TABLET BY MOUTH EVERY DAY ondansetron 4 mg tablet,disintegrating 4 mg PO Q8H PRN (Reason: nausea and vomiting) Qty: 10 0RF naproxen [Naprosyn] 500 mg tablet 500 mg PO BID PRN (Reason: pain) Qty: 20 0RF buspirone 10 mg tablet 10 mg PO TID Label Comments: TAKE 1 TABLET BY MOUTH THREE TIMES A DAY albuterol sulfate 90 mcg/actuation HFA aerosol inhaler 90 inh INHALATION Q4H PRN PRN (Reason: sob) Label Comments: TAKE 2 PUFFS BY MOUTH EVERY 4 HOURS NEEDED fluticasone furoate-vilanterol [Breo Ellipta] 100-25 mcg/dose blister with device 1 ea INHALATION DAILY Label Comments: INHALE 1 INHALATION INSTRUCTED ONCE DAILY. bupropion HCl 150 mg tablet extended release 24 hr 150 mg PO DAILY Label Comments: TAKE 1 TABLET BY MOUTH EVERY MORNING omeprazole 40 mg Capsule,Delayed Release(Dr/Ec) 40 mg PO BID metoclopramide HCl 5 mg tablet 5 mg PO TID Label Comments: TAKE 1 TABLET BY MOUTH EVERY 8 HOURS ADMINISTER 30 MINUTES BEFORE MEALS Changed Toujeo Max U-300 SoloStar 300 unit/mL (3 mL) insulin pen 70 unit subcut DAILY Qty: 6 0RF Discontinued promethazine 25 MG tablet 25 mg PO Q6H PRN PRN (Reason: Nausea) No Action insulin lispro [Humalog KwikPen Insulin] 100 unit/mL Insulin Pen See Protocol SUBCUT TID Protocol: 1. Sliding Scale Insulin Low Dosing Condition: 150-224 mg/dl = 1 unit Condition: 225-299 mg/dl = 2 units Condition: 300-374 mg/dl = 3 units Condition: 375-499 mg/dl = 4 units Condition: Greater than 449 call physician Protocol Text: - Use for Total Daily Dose of Insulin 15-27 units - Thin, elderly, renal patients LOW DOSING ALGORITHM Rx Instructions: plus sliding scale Referrals / Follow Up: Meredith Oropeza MD [Med Staff - Active Staff] - Within 2 Weeks (For acute on recurrent UTI. UTIs started after bladder sling surgery.) Manolo Wade MD [Med Staff - Active Staff] - Within 1 Month (ESBL E. coli recurrent UTI) Ricci Broussard MD [Primary Care Provider] - Within 1 Week Disposition Disposition (needs filled in before D/C Order can be placed): Home Health Service
[2022-05-03 11:50] LABS: Bedside Glucose 270 mg/dL (74-106)
--- NOTE | 2022-05-03 13:08 | DS.PCM_ITS ---
Providers Date of Admission: 05/01/22 Date of Discharge: 05/03/22 Primary Care Physician: Dr. Ricci Broussard MD Consultations 05/01/22 16:31 Consult: Infectious Disease Routine Consulting Provider: Manolo Wade Reason for Consult: Acute on recurrent ESBL E. coli. Allergy to penicillin and sulfonamide EMERGENT Consult: No MD Notified: Yes Date Notified: 05/01/22 Time Notified: 16:31 Method of Notification: Text Reason For Visit: DEBILITY WITH MECHANICAL FALLS, UTI Diagnosis Discharge Diagnosis (1) Chronic UTI: Status: Chronic Code(s): N39.0 - Urinary tract infection, site not specified (2) UTI due to extended-spectrum beta lactamase (ESBL) producing Escherichia coli: Status: Acute Code(s): N39.0 - Urinary tract infection, site not specified; B96.29 - Other Escherichia coli [E. coli] as the cause of diseases classified elsewhere; Z16.12 - Extended spectrum beta lactamase (ESBL) resistance Medications at Discharge Home Medications carvedilol 3.125 mg tablet 6.25 mg PO BID bp 01/02/22 escitalopram oxalate 20 mg tablet 20 mg PO DAILY mood 01/02/22 insulin lispro 100 unit/mL subcutaneous pen (Humalog KwikPen (U-100) Insulin) See Protocol subcut TID diabetes 01/02/22 naproxen 500 mg tablet (Naprosyn) 500 mg PO BID PRN pain #20 tabs 01/02/22 ondansetron 4 mg disintegrating tablet 4 mg PO Q8H PRN nausea and vomiting #10 tabs 01/02/22 atorvastatin 20 mg tablet 20 mg PO QHS cholesterol 01/11/22 cholecalciferol (vitamin D3) 50 mcg (2,000 unit) capsule 50 mcg PO DAILY supplement 01/11/22 gabapentin 400 mg capsule 400 mg PO TID pain 01/11/22 quetiapine 300 mg tablet 300 mg PO QHS mood 01/11/22 albuterol sulfate 90 mcg/actuation aerosol inhaler 90 inh inhalation Q4H PRN PRN sob 01/17/22 bupropion HCl 150 mg 24 hr tablet, extended release 150 mg PO DAILY mood 01/17/22 buspirone 10 mg tablet 10 mg PO TID mood 01/17/22 fluticasone furoate 100 mcg-vilanterol 25 mcg/dose inhalation powder (Breo Ellipta) 1 ea inhalation DAILY sob 01/17/22 alprazolam 1 mg tablet 1 mg PO TID PRN anxiety #30 tabs 04/26/22 metoclopramide HCl 5 mg tablet 5 mg PO TID nausea 05/01/22 omeprazole 40 mg capsule,delayed release 40 mg PO BID gerd 05/01/22 ertapenem 1 gram solution for injection 1 g IV Q24 8 days #8 ea 05/03/22 insulin glargine U-300 conc 300 unit/mL (3 mL) subcutaneous pen (Toujeo Max U- 300 SoloStar) 70 unit (0.2333 mL) subcut DAILY diabetes #6 mL 05/03/22 insulin glargine-yfgn 100 unit/mL (3 mL) subcutaneous pen 30 unit (0.3 mL) subcut QHS #0 mL 05/03/22 insulin lispro 100 unit/mL subcutaneous pen (Humalog KwikPen (U-100) Insulin) 30 unit (0.3 mL) subcut TIDAC #15 mL 05/03/22 insulin lispro 100 unit/mL subcutaneous pen (Humalog KwikPen (U-100) Insulin) See Protocol subcut ACHS #0 mL 05/03/22 pantoprazole 40 mg tablet,delayed release 40 mg PO DAILY #30 tabs 05/03/22 Hospital Course Summary of Care Provided Hospital Course: This 67-year-old female was admitted with mechanical fall, confusion on multiple medications including Seroquel and alprazolam. She is also found to have high fever 102 Fahrenheit and 104 Fahrenheit at home with symptoms of UTI including burning micturition increased frequency and urgency 1 Acute encephalopathy, multiple etiologies due to polypharmacy/infectious, UTI: Resolved 2. Debility and mechanical falls due to polypharmacy along with mild dizziness and lightheadedness probably due to medications * patient recently started on reglan for intractable nausea and vomiting; also taking seroquel and alprazolam * has been having recurrent falls at home and fell on day of admission. * hold reglan, seroquel and alprazolam. Patient advised to hold this medication when she feels dizzy lightheaded or drowsy. Follow with PCP. Acute on recurrent ESBL E. coli UTI * urinalysis showed 4+ bacteria, though it showed same back in december 2021 when she was managed for UTi due to ESBL e coli.labs reviewed shows elevated lactic acid since December 2021.No fever. No hypotension. Patient does not look toxic or septic. Sepsis ruled out. ID is consulted for history of ESBL E. coli and recurrent UTI. History of allergy to penicillin and sulfonamide antibiotics. On IV cefepime for now. 05/03: Started on IV meropenem. Renal and bladder ultrasound does not show acute change including hydronephrosis, abscess, or stone except 3 cm simple cyst. Patient seen by ID discussed with ID. Patient is discharged on ertapenem to complete a total duration of 10 days with weekly labs. Follow-up with ID. Fo llow-up with urologist in 2 weeks #TYpe 2 diabetes mellitus: Glucose is not controlled, glucose 298. Accu-Cheks and titrate the dose insulin accordingly. Lantus 20 units at night and Humalog 20 units 3 times daily AC with meals added. * on lantus 80 units daily * ISS. Accuchecks ACHS 05/02: Glucose is 200 to 250 mg/dL. Insulin dose titrated up. 05/03: Patient discharged on increased dose of Lantus and Humalog insulin #hypertension: on carvedilol #COPD: on breathing treatment with bronchodilators #Hypertension: on carvedilol #Fibromyalgia: on gabapentin #Depression: on lexapro and wellbutrin DVT prophylaxis; lovenox Code status: full code Discharge medication reconciliation done. Discharge follow-up instructions completed. Discharge process discussed with the patient and all questions were answered to patient's satisfaction. Total time spent, exact 35 minutes on discharge meds reconciliation, examination, coordination of care with nurses and ancillary staff, review of imaging and blood test and discussion with the patient on follow-up instructions. Clinical Impression(s) from Imaging Studies Brain CT 04/30/22 22:11 IMPRESSION: No acute intracranial pathology Electronically Signed: Bhavin Edgar MD at 23:43 EDT , Chest X-Ray 04/30/22 22:23 IMPRESSION: No acute disease. Electronically Signed: Bhavin Edgar MD at 23:07 EDT , Renal Ultrasound 05/02/22 10:23 IMPRESSION: 1. 3 cm benign left renal cyst. 2. No other significant pathology. Microbiology Past 72 Hours 04/30/22 22:45 Urine, Clean Catch Urine Culture - Preliminary Escherichia coli 04/30/22 22:15 Nasal Secretion SARS-CoV-2 Antigen (Rapid) - Final Laboratory Results 05/01/22 16:10: POC Glucose 261 H 05/01/22 21:45: POC Glucose 232 H 05/02/22 06:16: POC Glucose 218 H 05/02/22 11:17: POC Glucose 220 H Physical Exam Narrative Seen and examined. Patient is states that she getting frequent UTI after bladder sling surgery. Discussed with ID and recommended follow-up with urologist. General: Alert, Oriented x3, Cooperative HEENT: Atraumatic, PERRLA, EOMI, Normocephalic Oral: No Gingival or Mucosal Lesions/ Ulcerations Neck: Supple, No JVD, Negative Carotid Bruits Lungs:? Air entry diminished in bilateral lung bases.? No crepitation/rhonchi. Cardiovascular: Regular rate, Regular Rhythm, Normal S1, Normal S2, No murmurs Abdomen: Bowel Sounds Present, Soft, Non Tender, Non-Distended : Increased frequency, dysuria and urgency symptoms resolved.? No renal angle tenderness.? No suprapubic tenderness. Extremities: No edema, Capillary Refill Less than 3 Seconds Skin: Superficial abrasion and bruise on knees healing. Musculoskeletal: Chronic mild tenderness of both knees.? Poor mobility and balance Neurological: Cranial nerves II-XII grossly intact, DTR? 2+/4, muscle strength 4/5 at bilateral knee and hip joints. Psych/Mental Status: Flat affect. Weight / BMI Weight Weight: 238 lb 12.17 oz Body Mass Index (BMI) 37.4 ABG / Lab / Microbiology Data Result Diagrams: 05/03/22 05:57 05/03/22 05:57 Laboratory: Laboratory Results - last 24 hr 05/02/22 16:17: POC Glucose 113 H 05/02/22 21:16: POC Glucose 242 H 05/03/22 05:57: WBC 9.2, RBC 4.39, Hgb 13.2, Hct 40.6, MCV 92.5, MCH 30.1, MCHC 32.5, RDW Std Deviation 44.6 H, RDW Coeff of Jona 13.2, Plt Count 256, MPV 8.7, Immature Gran % (Auto) 0.800, Neut % (Auto) 53.9, Lymph % (Auto) 36.2, Hendry % (Auto) 6.4, Eos % (Auto) 2.2, Baso % (Auto) 0.5, Absolute Neuts (auto) 5.0, Absolute Lymphs (auto) 3.33, Nucleated RBC % 0 05/03/22 05:57: Sodium 139, Potassium 4.2, Chloride 109 H, Carbon Dioxide 25.0, Anion Gap 5, BUN 9, Creatinine 0.58, Estim Creat Clear Calc 90.53, Est GFR (MDRD) Af Amer 133, Est GFR (MDRD) Non-Af 110, BUN/Creatinine Ratio 15.4, Glu cose 202 H, Calcium 8.2 L 05/03/22 07:27: POC Glucose 209 H 05/03/22 11:11: POC Glucose 270 H Microbiology: Microbiology 04/30/22 22:45 Urine, Clean Catch Urine Culture - Final Escherichia coli 04/30/22 22:21 Blood Culture (Wb) - Right Hand Blood Culture - Preliminary No growth in 48 hours. 04/30/22 22:17 Blood Culture (Wb) - Left Hand Blood Culture - Preliminary No growth in 48 hours. 04/30/22 22:15 Nasal Secretion SARS-CoV-2 Antigen (Rapid) - Final Radiography Diagnostic Testing: Radiology Impression Renal Ultrasound 05/02/22 10:23 IMPRESSION: 1. 3 cm benign left renal cyst. 2. No other significant pathology. Electronically Signed: Bhavin Edgar MD at 0:56 EDT , D/C Instructions Discharge Diet: Low fat / Low cholesterol, 1800 Calorie Control Diet and 2000 mg Sodium Diet Weight Bearing Status: Weight bearing as tolerated Call your doctor if you observe: Fever of 101 or Higher, Coldness, Increased Pain, Numbness or Tingling, Change in Color, Inability to urinate, Inability to have a bowel movement, Using more than 1 pad per hour, Shortness of breath, Dizziness, Fainting spells, Swelling in the ankles, Chest pain, Prolonged hiccupping, Increased palpitations (irregular heartbeat), Calf discomfort and U ncontrolled pain Meaningful Use Info Meaningful Use Diagnoses (Choose all that apply): None applicable Discharge Plan Admission Admit Date/Time: 05/01/22 00:23 Primary Reason for Your Visit: Acute on recurrent UTI, ESBL E. coli Attending Provider: Naveen Castro Primary Care Provider: Ricci Broussard Consulting Providers: Pippa Brice ; Manolo Wade Instructions Additional Instructions / Restrictions: Advised medicine reconciliation of multiple neurologic and antidepressant medications. Advised to hold if patient is dizzy or lightheaded. Discharge Orders/Prescriptions Prescriptions: New ertapenem 1 gram Recon Soln 1 g IV Q24 8 Days Qty: 8 0RF Rx Instructions: stop date 05/11/22 dx:esbl uti weekly bmp, cbc, and LFT. Fax to [phone]. insulin lispro [Humalog KwikPen Insulin] 100 unit/mL Insulin Pen 30 unit subcut TIDAC Qty: 15 0RF insulin glargine-yfgn 100 unit/mL (3 mL) Insulin Pen 30 unit subcut QHS Qty: 0 0RF pantoprazole 40 mg Tablet,Delayed Release (Dr/Ec) 40 mg PO DAILY Qty: 30 0RF insulin lispro [Humalog KwikPen Insulin] 100 unit/mL Insulin Pen See Protocol subcut ACHS Qty: 0 0RF Protocol: 3. Sliding Scale Insulin Med Dosing Condition: 150-189 mg/dl = 1 unit Condition: 190-229 mg/dl = 2 units Condition: 230-269 mg/dl = 3 units Condition: 270-309 mg/dl = 4 units Condition: 310-349 mg/dl = 5 units Condition: 350-399 mg/dl = 6 units Condition: 400-449 mg/dl = 7 units Condition: Greater than 449 call physician Protocol Text: - Use for Total Daily Dose of Insulin 37-55 units - Obsese, infected, or steroid patients MEDIUM DOSING ALGORITHIM Continued atorvastatin 20 mg tablet 20 mg PO QHS cholecalciferol (vitamin D3) 50 mcg (2,000 unit) capsule 50 mcg PO DAILY gabapentin 400 mg capsule 400 mg PO TID quetiapine 300 mg tablet 300 mg PO QHS alprazolam 1 mg tablet 1 mg PO TID PRN (Reason: anxiety) Qty: 30 0RF carvedilol 3.125 mg tablet 6.25 mg PO BID Label Comments: TAKE 2 TABLETS BY MOUTH TWICE A DAY escitalopram oxalate 20 mg tablet 20 mg PO DAILY Label Comments: TAKE 1 TABLET BY MOUTH EVERY DAY ondansetron 4 mg tablet,disintegrating 4 mg PO Q8H PRN (Reason: nausea and vomiting) Qty: 10 0RF naproxen [Naprosyn] 500 mg tablet 500 mg PO BID PRN (Reason: pain) Qty: 20 0RF buspirone 10 mg tablet 10 mg PO TID Label Comments: TAKE 1 TABLET BY MOUTH THREE TIMES A DAY albuterol sulfate 90 mcg/actuation HFA aerosol inhaler 90 inh INHALATION Q4H PRN PRN (Reason: sob) Label Comments: TAKE 2 PUFFS BY MOUTH EVERY 4 HOURS NEEDED fluticasone furoate-vilanterol [Breo Ellipta] 100-25 mcg/dose blister with device 1 ea INHALATION DAILY Label Comments: INHALE 1 INHALATION INSTRUCTED ONCE DAILY. bupropion HCl 150 mg tablet extended release 24 hr 150 mg PO DAILY Label Comments: TAKE 1 TABLET BY MOUTH EVERY MORNING omeprazole 40 mg Capsule,Delayed Release(Dr/Ec) 40 mg PO BID metoclopramide HCl 5 mg tablet 5 mg PO TID Label Comments: TAKE 1 TABLET BY MOUTH EVERY 8 HOURS ADMINISTER 30 MINUTES BEFORE MEALS Changed Toujeo Max U-300 SoloStar 300 unit/mL (3 mL) insulin pen 70 unit subcut DAILY Qty: 6 0RF Discontinued promethazine 25 MG tablet 25 mg PO Q6H PRN PRN (Reason: Nausea) No Action insulin lispro [Humalog KwikPen Insulin] 100 unit/mL Insulin Pen See Protocol SUBCUT TID Protocol: 1. Sliding Scale Insulin Low Dosing Condition: 150-224 mg/dl = 1 unit Condition: 225-299 mg/dl = 2 units Condition: 300-374 mg/dl = 3 units Condition: 375-499 mg/dl = 4 units Condition: Greater than 449 call physician Protocol Text: - Use for Total Daily Dose of Insulin 15-27 units - Thin, elderly, renal patients LOW DOSING ALGORITHM Rx Instructions: plus sliding scale Referrals / Follow Up: Meredith Oropeza MD [Med Staff - Active Staff] - Within 2 Weeks (For acute on recurrent UTI. UTIs started after bladder sling surgery.) Manolo Wade MD [Med Staff - Active Staff] - Within 1 Month (ESBL E. coli recurrent UTI) Ricci Broussard MD [Primary Care Provider] - Within 1 Week Disposition Disposition (needs filled in before D/C Order can be placed): Home Health Service Charges/Coding Visit Charges Inpatient E&M: 62582 Disch Hosp
--- NOTE | 2022-05-03 14:34 | CASEMGMT ---
Social Work RNCM reporting pt is concerned with cost of home IV ATB and stating she cannot afford this. SW met with pt in room and introduced self to pt. SW explained the cost of home IVATB and the medicare benefit of pt if she goes to SNF. SW explained Medicare will cover SNF stay at 100% including IVATB, therapy and nursing care. A list of SNF providers including quality and resource use data and consistent with the patient?s preferred geographic region, medical needs, and insurance network were provided from the [employer] Guide. Pt states she would like to talk to her about options. SW inquired if pt would be willing/able to come to [facility] daily for the next 8 days to receive IV ATB at the infusion center. Pt states she would be willing to do this depending on the cost. SW placed call to [facility] to discuss cost. Per conversation with [facility] pt infusion at the infusion center should be covered by pt's [facility] and [facility] benefit. SW met with pt and informed of three options and estimated cost of each. Pt now requesting to return home and will follow up at the infusion center. RNCM updated and to set up appointment. BONIFACIO Nicole
== END 2022-05-03 14:45 | disposition home health service (06) | DRG 689 ==
LOC: ED 05-01 00:13 → MS3 05-01 00:41
PROVIDERS: Admitting Provider Student in an Organized Health Care Education/Training Program; Emergency Provider Emergency Medicine; PCP Family Medicine; Visit Provider Internal Medicine
DX: N39.0 Urinary tract infection, site not specified (principal); G92.8 Other toxic encephalopathy; Z16.12 Extended spectrum beta lactamase (ESBL) resistance; E11.43 Type 2 diabetes mellitus with diabetic autonomic (poly)neuropathy; K31.84 Gastroparesis; F17.210 Nicotine dependence, cigarettes, uncomplicated; E66.9 Obesity, unspecified; B96.29 Other Escherichia coli [E. coli] as the cause of diseases classified elsewhere; J44.9 Chronic obstructive pulmonary disease, unspecified; Z79.4 Long term (current) use of insulin; F41.9 Anxiety disorder, unspecified; I10 Essential (primary) hypertension; S51.011A Laceration without foreign body of right elbow, initial encounter; S51.012A Laceration without foreign body of left elbow, initial encounter; S80.211A Abrasion, right knee, initial encounter; S80.212A Abrasion, left knee, initial encounter; W19.XXXA Unspecified fall, initial encounter; M79.7 Fibromyalgia; K21.9 Gastro-esophageal reflux disease without esophagitis; F32.A Depression, unspecified; Z87.440 Personal history of urinary (tract) infections; Z87.19 Personal history of other diseases of the digestive system; Z79.899 Other long term (current) drug therapy; Z91.81 History of falling; Z68.38 Body mass index [BMI] 38.0-38.9, adult; T43.595A Adverse effect of other antipsychotics and neuroleptics, initial encounter; T42.4X5A Adverse effect of benzodiazepines, initial encounter; T45.0X5A Adverse effect of antiallergic and antiemetic drugs, initial encounter
CPT/HCPCS: 36415; 70450; 71045; 76770; 80048; 80053; 81001; 82962; 83605; 84484; 85025; 85610; 85730; 87040; 87077; 87086; 87088; 87186; 87811; 93005; 94640; 97110; 97116; 97162; 97166; 97530; 97535; 99251; 99285; 99406; J2185; J7030; J7050; P9612; A4216; G0463; J2405

== ENCOUNTER 2022-05-04 11:13 | Outpatient (CLI) | payer MEDICARE, MEDICAID, SELFPAY ==
[2022-05-04] MEDS: 0.9% Saline Lock 10 ML Syringe IV ×2 (11:26→12:25)
[2022-05-04 11:33] VITALS: BP 132/86; PULSE 71; RESP 18; TEMP 37.4; O2SAT 96
== END 2022-05-04 12:30 | disposition home or self-care (01) ==
LOC: MEDOUTP 11:16 → MS3 11:16
PROVIDERS: PCP Family Medicine; Visit Provider Internal Medicine Infectious Disease
DX: N39.0 Urinary tract infection, site not specified (principal); Z16.12 Extended spectrum beta lactamase (ESBL) resistance
CPT/HCPCS: 96365; J7050; A4216

== ENCOUNTER 2022-05-05 10:39 | Outpatient (CLI) | payer MEDICARE, MEDICAID, SELFPAY ==
[2022-05-05] MEDS: 0.9% Saline Lock 10 ML Syringe IV ×2 (10:50→11:43)
[2022-05-05 10:58] VITALS: BP 143/70; PULSE 80; RESP 18; TEMP 37.1; O2SAT 98
== END 2022-05-05 11:45 | disposition home or self-care (01) ==
LOC: MEDOUTP 10:40 → MS3 10:41
PROVIDERS: PCP Family Medicine; Visit Provider Internal Medicine Infectious Disease
DX: N39.0 Urinary tract infection, site not specified (principal); Z16.12 Extended spectrum beta lactamase (ESBL) resistance
CPT/HCPCS: 96365; J7050; A4216

== ENCOUNTER → 2022-05-06 | Outpatient (CLI) | payer MEDICARE, MEDICAID, SELFPAY ==
[2022-05-06 11:01] VITALS: BP 174/80; PULSE 92; RESP 16; TEMP 36.1; O2SAT 96; BMI 21.9
[2022-05-06] MEDS: 0.9% NaCl IVPB Med Flush (250 mL) 15 ML IV (11:09)
[2022-05-06] MEDS: 0.9% NaCl PICC Flush IV ×2 (11:09→12:32)
[2022-05-06 12:36] VITALS: BP 146/85; PULSE 81; RESP 16; TEMP 36.3; O2SAT 95
== END | disposition home or self-care (01) ==
LOC: MEDOUTP 10:47
PROVIDERS: PCP Family Medicine; Referring Provider Internal Medicine Infectious Disease; Visit Provider Internal Medicine Infectious Disease
DX: N39.0 Urinary tract infection, site not specified (principal); Z16.12 Extended spectrum beta lactamase (ESBL) resistance
CPT/HCPCS: 96365; J7050; A4216

== ENCOUNTER → 2022-05-07 | Outpatient (CLI) | payer MEDICARE, MEDICAID, SELFPAY ==
[2022-05-07 10:55] VITALS: BP 167/82; PULSE 89; RESP 16; TEMP 36.3; O2SAT 96; BMI 49.4
[2022-05-07] MEDS: 0.9% NaCl PICC Flush IV ×2 (10:58→11:59)
[2022-05-07] MEDS: 0.9% NaCl IVPB Med Flush (250 mL) 15 ML IV (10:59)
[2022-05-07 12:02] VITALS: BP 158/75; PULSE 78
== END | disposition home or self-care (01) ==
LOC: MEDOUTP 10:47
PROVIDERS: PCP Family Medicine; Referring Provider Internal Medicine Infectious Disease; Visit Provider Internal Medicine Infectious Disease
DX: N39.0 Urinary tract infection, site not specified (principal); Z16.12 Extended spectrum beta lactamase (ESBL) resistance
CPT/HCPCS: 96365; J7050; A4216

== ENCOUNTER → 2022-05-08 | Outpatient (CLI) | payer MEDICARE, MEDICAID, SELFPAY ==
[2022-05-08 13:02] VITALS: BP 136/94; PULSE 88; RESP 16; TEMP 35.7; O2SAT 97; BMI 49.4
[2022-05-08 14:07] VITALS: BP 167/72; PULSE 80; RESP 16; TEMP 36.2; O2SAT 95
== END | disposition home or self-care (01) ==
LOC: MEDOUTP 12:54
PROVIDERS: PCP Family Medicine; Referring Provider Internal Medicine Infectious Disease; Visit Provider Internal Medicine Infectious Disease
DX: N39.0 Urinary tract infection, site not specified (principal); Z16.12 Extended spectrum beta lactamase (ESBL) resistance
CPT/HCPCS: 96365; A4216

== ENCOUNTER → 2022-05-09 | Outpatient (CLI) | payer MEDICARE, MEDICAID, SELFPAY ==
[2022-05-09 10:58] VITALS: BP 156/82; PULSE 82; RESP 16; TEMP 36.2; O2SAT 96
[2022-05-09 11:49] VITALS: BP 149/80; PULSE 84
== END | disposition home or self-care (01) ==
LOC: MEDOUTP 10:39
PROVIDERS: PCP Family Medicine; Referring Provider Internal Medicine Infectious Disease; Visit Provider Internal Medicine Infectious Disease
DX: N39.0 Urinary tract infection, site not specified (principal); Z16.12 Extended spectrum beta lactamase (ESBL) resistance
CPT/HCPCS: 96365; A4216

== ENCOUNTER → 2022-05-10 | Outpatient (CLI) | payer MEDICARE, MEDICAID, SELFPAY ==
[2022-05-10 11:09] VITALS: BP 136/75; PULSE 78; RESP 16; TEMP 36.2; O2SAT 98
[2022-05-10 11:24] LABS: Hematocrit 40.9 % (37-47); Hemoglobin 13.6 g/dL (12.0-15.0); Mean Corp Hgb Conc 33.3 g/dL (32-36); Mean Corpuscular Hgb 30.2 pg (27.0-32.0); Mean Corpuscular Volume 90.7 fL (81-99); Platelet Count 288 K/mm3 (150-450); RBC Distribution Width CV 13.8 % (11.6-14.6); Red Blood Count 4.51 M/mm3 (4.2-5.4); White Blood Count 11.1 K/mm3 (4.4-11.0)
[2022-05-10 11:35] LABS: AST(SGOT) 16 U/L (15-37); Alanine Aminotransfer ALT/SGPT 19 U/L (13-56); Albumin, Serum 3.3 g/dL (3.2-5.0); Alkaline Phosphatase 76 U/L (45-117); Anion Gap 9 (5-15); BUN 5 mg/dL (7-18); BUN/Creat Ratio 6.4 RATIO (10-20); Bilirubin, Direct 0.15 mg/dL (0.00-0.30); Chloride 107 mmol/L (98-107); Creatinine, Serum 0.78 mg/dL (0.55-1.02); EST Glomerular Filtration Rate 79 mL/min (>60); Est Glom Filt Rate - Afr Amer 96 mL/min (>60); Globulin 3.5 g/dL (2.2-4.2); Glucose 281 mg/dL (74-106); Potassium 3.6 mmol/L (3.5-5.1); Protein, Total 6.8 g/dL (6.4-8.2); Sodium Level 140 mmol/L (136-145)
[2022-05-10 12:10] VITALS: BP 157/80; PULSE 79; O2SAT 95
== END | disposition home or self-care (01) ==
LOC: MEDOUTP 10:41
PROVIDERS: PCP Family Medicine; Referring Provider Internal Medicine Infectious Disease; Visit Provider Internal Medicine Infectious Disease
DX: N39.0 Urinary tract infection, site not specified (principal); Z16.12 Extended spectrum beta lactamase (ESBL) resistance
CPT/HCPCS: 96365; 36415; 80048; 80076; 85027; J7050; A4216

== ENCOUNTER 2022-05-11 10:58 | Outpatient (CLI) | payer MEDICARE, MEDICAID, SELFPAY ==
--- NOTE | 2022-05-11 12:00 | NURSING ---
Dr. Thacker paged by David Blount RN to verify discontinuation of PICC line per pt statement. Dr Thacker called PCU, this RN spoke with Dr Thacker and received telephone order to remove PICC line.
== END 2022-05-11 12:47 | disposition home or self-care (01) ==
LOC: MEDOUTP 10:58 → PCU 10:59
PROVIDERS: PCP Family Medicine; Referring Provider Internal Medicine Infectious Disease; Visit Provider Internal Medicine Infectious Disease
DX: N39.0 Urinary tract infection, site not specified (principal); Z16.12 Extended spectrum beta lactamase (ESBL) resistance
CPT/HCPCS: 96365

== ENCOUNTER 2022-06-12 08:37 | Day surgery (SDC) | payer MEDICARE, MEDICAID, SELFPAY ==
[2022-06-12] VITALS (8 sets, daily range): BP systolic 133–152; BP diastolic 69–92; PULSE 82–110; RESP 16–18; TEMP 35.4–37.1; O2SAT 94–97; BMI 36.9
--- NOTE | 2022-06-12 07:45 | EGD_PTH ---
PATIENT: DAMIEN BROWNLEE LOC: EN U#:[id number] AGE/SX: 67/F ROOM: RE06/12/[address]: Dr. Dylan Mac DO : 1955 BED: DIS: 06/12/2022 SPEC #: [id number] RECD: 06/12/22 13:15 STATUS: DELPHINE REAndree #: [id number] NINO: 06/12/22 07:[address]: Dylan aMc DEPT: SURGICAL PATHOLOGY RECD BY: Sonya Archibald ENTERED: 06/12/22 13:32 SP TYPE: EGD BIOPSY DINA DR: Dr. Ricci Broussard MD Tissues: A - Gastric mucous membrane B - Duodenum, NOS Procedures: Surgery Specimen Level IV HEADER O[place] [place] DIAGNOSIS: Nausea TISSUE SUBMITTED: A ? Gastric antrum biopsy, B ? Duodenum biopsy MICROSCOPIC DIAGNOSIS A. Gastric antrum, biopsy: Mild chronic gastritis. See comment. B. Duodenum, biopsy: Gastric metaplasia, focal. AM:sailaja 06/13/2022 COMMENT A. The results of immunohistochemistry for Helicobacter pylori will be reported separately ([id number]). MICROSCOPIC DESCRIPTION Slides are reviewed. GROSS DESCRIPTION A - Received in fixative is one container labeled with the patient's name and designated gastric antrum biopsy. The specimen consists of two irregular fragments of light calix soft tissue that in aggregate measure 0.8 x 0.4 x 0.1 cm. The specimen is totally submitted in one cassette. B - Received in fixative is one container labeled with the patient's name and designated duodenum biopsy. The specimen consists of one irregular fragment of light calix soft tissue that measures 0.3 x 0.3 x 0.1 cm. The specimen is totally submitted in one cassette. / ALEXA:sailaja 06/12/2022 TC:3 CPT: 04590 x2
[2022-06-12] MEDS: Ipratropium/Albuterol Sulfate 3 ML AMPUL.NEB INHALATION (09:28)
[2022-06-12] MEDS: Lactated Ringers 1,000 ML 15 ML IV (09:29)
--- NOTE | 2022-06-12 09:45 | IMM_PTH ---
PATIENT: DAMIEN BROWNLEE LOC: EN U#:[id number] AGE/SX: 67/F ROOM: RE06/12/[address]: Dr. Dylan Mac DO : 1955 BED: DIS: 06/12/2022 SPEC #: [id number] RECD: 06/12/22 14:06 STATUS: DELPHINE REQ #: [id number] NINO: 06/12/22 09:[address]: Dylan Mac DEPT: IMMUNOHISTOCHEMISTRY RECD BY: Janette Smith ENTERED: 06/12/22 14:06 SP TYPE: IMMUNO OTHR DR: Dr. Ricci Broussard MD Tissues: A - Stomach, NOS Procedures: H Pylori (initial) PHYSICIAN & INSTITUTION [place] [id number] SPECIMEN INFORMATION: Tissue Source: A ? Gastric antrum biopsy Clinical Info: Nausea Specimen Number: [id number] CPT code: 57581 METHODOLOGY: Deparaffinized sections of prefer/formalin-fixed tissue or PAP/DQ stained slides are incubated with monoclonal/polyclonal antibodies/oligonucleotide probes. Localization is made via biotin free immunoperoxidase method. Appropriate controls are performed and reacted as expected. Results on target cell population are indicated in the following table: RESULTS: ANTIBODY / CLONE RESULT Block A H Pylori (polyclonal) negative These tests were developed and their performance characteristics determined by [facility]. They may not have been cleared or approved by the U.S. Food and Drug Administration. The FDA has determined that such clearance or approval is not necessary. The above immunohistochemical/dualISH markers are ordered and reviewed by the Pathologist. INTERPRETATION: A. Gastric antrum, biopsy: Negative for Helicobacter pylori organisms. AM:sailaja 06/13/2022
--- NOTE | 2022-06-12 09:49 | PCM.HP.BLA ---
History and Physical Date of Admission: 06/12/22 IVET BROWNLEE, is a 67 F who presents to the office today for Initial consult. Ivet established with this clinic 02.20.22 with referral from PCP. Previously established with Dr. Spicer for nausea. Reports debilitating nausea that is present at all times of the time and will wake her during the night. Present for several years and was previously well controlled with medication. Currently taking phenegrine, Prilosec and pepto-bismol that takes the edge off but does not resolve symptoms. Symptoms do interrupt daily life. Previously utilized reglan and this was effective but her PCP would not continue this medication; denies extrapyramidal symptoms. Antinausea suppositories infeffective; scopolamine patches caused a reaction of strange sensation at site of application and now feels a strange sensation in her lymphnodes. Currently smokes 3-4 cigarettes a day. Marijuana consumption is minimal and occurs every couple of months. PMH recurrent UTI, COPD, HTN. She is seeing psychiatry and counseling services. Gastric emptying study 03.06.16 T1/2 55 minutes with normal 12-[address] abd/pel 01.02.22 finding hepatic steatosis; noted cholecystectomy; scattered colonic diverticulosis. ROS Const Constitutional: No anorexia, fatigue, fever(s), weight change or sleep problems Eyes Eyes: No change in vision ENT ENT: No abnormal hearing, difficulty swallowing, mouth lesions, tongue swelling or throat swelling Resp Respiratory: No cough or shortness of breath Cardio Cardiology: No chest pain at rest, chest pain with exertion, shortness of breath or dyspnea on exertion Gastro GI: No difficulty swallowing Genitourinary-Female: No difficulty urinating or burning urination Musc Musculoskeletal: No joint pain, joint swelling, muscle weakness or decreased muscle mass Skin Skin: No hair loss in leg, yellowing of the eye, itchy eyes, rash, skin ulcer or skin swelling Neuro Neurology: No abnormal hearing, abnormal movements, confusion, unsteady gait/balance or memory loss Psych Psychiatric: No anxiety, No confusion and No memory loss Endo Endocrine: No fatigue or weight change Aller/Imm Allergy/Immunologic: No itchy eyes, throat swelling or tongue swelling [place]/Lymp Hematologic/Lymphatic: No easy bleeding, easy bruising or enlarged lymph nodes Exam Const General: cooperative and comfortable Nutritional Appearance: average body habitus and well nourished [facility] Head: normal to inspection Ears: hearing grossly normal bilaterally Nose: external nose normal Face and sinus: normal facial exam Mouth: oral mucosae normal Throat: posterior oropharynx normal Eyes General: appearance normal, both eyes and all related structures Neck Neck: normal visual inspection Chest Chest palpation & inspection: normal inspection of the chest and normal palpation of entire chest wall Resp Effort & Inspection: normal respiratory effort Auscultation: Bilateral: Clear to Auscultation Cardio Palpation: normal PMI Rate: regular rate Rhythm: regular rhythm GI Inspection: normal to inspection Auscultation: normal bowel sounds Percussion: normal to percussion Palpation: no hepatosplenomegaly Skin General: no rashes or lesions noted Neuro General: patient alert Extrem General: normal to inspection Psych Affect: normal affect Quality Reporting Tobacco Screening ([facility] 138) Smoking Status: Current every day smoker Assessment and Plan Assessment and Plan (1) Nausea: ?Status:?Acute ?Plan: I think her nausea is multifactorial.? Mostly secondary to gastroparesis associated with type 1 diabetes mellitus and also from the tragedy of losing her son at the age of 40.? I will give her a short course of alprazolam therapy.? She says that she will only take it as needed and she will talk to her psychiatrist regarding changing her antianxiety and antidepressant medicine. (2) Intractable nausea and vomiting: ?Status:?Acute ?Plan: We will give her Reglan therapy has not worked for her in the past.? We will also discussed with her the risk and benefits of going on Reglan therapy.? She says that she with a cough vomiting so she is willing to accept the risk of possible tardive dyskinesia and she will stop the medicine immediately and give me a call if she develops any signs and symptoms that we went over in the office. ? ? ? Medications: New alprazolam 1 mg? PO TID PRN 30 tabs 0RF anxiety ? ? metoclopramide HCl ?? administer 30 minutes before meals 5 mg? PO .q8 90 tabs 1RF ? ? I have re-examined the patient. There are no clinical changes since date of exam.
--- NOTE | 2022-06-12 10:27 | OP.EGD_ITS ---
Patient Name: Ivet Valero Procedure Date: 06/12/2022 9:48 AM Date of : 1955 Age: 67 Procedure: Upper GI endoscopy Indications: Heartburn, Suspected esophageal reflux Providers: Dylan Mac DO Medicines: Monitored Anesthesia Care Patient Profile: This is a 67 year old female. Refer to note in patient chart for documentation of history and physical. Patient has symptoms of chronic cough, chronic heartburn and chronic nausea. Complications: No immediate complications. Procedure: Pre-Anesthesia Assessment: - Prior to the procedure, a History and Physical was performed, and patient medications and allergies were reviewed. The risks and benefits of the procedure and the sedation options and risks were discussed with the patient. All questions were answered and informed consent was obtained. Patient identification and proposed procedure were verified by the physician in the pre-procedure area. Mental Status Examination: alert and oriented. Airway Examination: normal oropharyngeal airway and neck mobility. Respiratory Examination: clear to auscultation. CV Examination: normal. Prophylactic Antibiotics: The patient does not require prophylactic antibiotics. Prior Anticoagulants: The patient has taken no previous anticoagulant or antiplatelet agents. ASA Grade Assessment: II - A patient with mild systemic disease. After reviewing the risks and benefits, the patient was deemed in satisfactory condition to undergo the procedure. The anesthesia plan was to use moderate sedation / analgesia (conscious sedation). Immediately prior to administration of medications, the patient was re-assessed for adequacy to receive sedatives. The heart rate, respiratory rate, oxygen saturations, blood pressure, adequacy of pulmonary ventilation, and response to care were monitored throughout the procedure. The physical status of the patient was re-assessed after the procedure. After obtaining informed consent, the endoscope was passed under direct vision. Throughout the procedure, the patient's blood pressure, pulse, and oxygen saturations were monitored continuously. The gastroscope was introduced through the mouth, and advanced to the second part of duodenum. The upper GI endoscopy was accomplished without difficulty. The patient tolerated the procedure well. Scope In: 10:12:26 AM Scope Out: 10:17:25 AM Total Procedure Duration Time 0 hours 4 minutes 59 seconds Findings: The Z-line was irregular and was found 39 cm from the incisors. Biopsies were taken with a cold forceps for histology. Verification of patient identification for the specimen was done. Estimated blood loss was minimal. Grade I varices were found in the middle third of the esophagus. They were 5 mm in largest diameter. A small hiatal hernia was present. Moderate gastric antral vascular ectasia without bleeding was present in the gastric antrum. Biopsies were taken with a cold forceps for histology. Verification of patient identification for the specimen was done. Estimated blood loss was minimal. Biopsies were taken with a cold forceps for histology. Localized moderate inflammation characterized by congestion (edema) and granularity was found in the first portion of the duodenum. Biopsies were taken with a cold forceps for histology. Verification of patient identification for the specimen was done. Estimated blood loss was minimal. Impression: - Z-line irregular, 39 cm from the incisors. Biopsied. - Grade I esophageal varices. - Small hiatal hernia. - Gastric antral vascular ectasia without bleeding. Biopsied. - Duodenitis. Biopsied. Recommendation: - Discharge patient to home. - Resume previous diet. - Continue present medications. - Await pathology results. -FibroScan to look for signs of advanced liver disease and CT scan of the chest to look for signs of superior vena cava syndrome causing the upper esophageal varices. Procedure Code(s): --- Professional --- 47958, Esophagogastroduodenoscopy, flexible, transoral; with biopsy, single or multiple CPT copyright 2017 [employer]. All rights reserved. The codes documented in this report are preliminary and upon remote inpatient coder review may be revised to meet current compliance requirements. Dylan Mac DO 06/12/2022 10:26:56 AM This report has been signed electronically. Number of Addenda: 0 Note Initiated On: 06/12/2022 9:48 AM
--- NOTE | 2022-06-12 10:27 | OP.CCLET_ITS ---
06/12/2022 Ricci Broussard Re : Upper GI endoscopy procedure for Ivet Valero Dear Aarti This procedure was performed on Sunday, June 12, 2022. My impressions and recommendations are as follows: Impressions : - Z-line irregular, 39 cm from the incisors. Biopsied. - Grade I esophageal varices. - Small hiatal hernia. - Gastric antral vascular ectasia without bleeding. Biopsied. - Duodenitis. Biopsied. Recommendations : - Discharge patient to home. - Resume previous diet. - Continue present medications. - Await pathology results. -FibroScan to look for signs of advanced liver disease and CT scan of the chest to look for signs of superior vena cava syndrome causing the upper esophageal varices. My findings are described in the full procedure note, which is enclosed. If I can be of further assistance, please feel free to contact me at . Sincerely, Dylan Friend, 06/12/2022 10:26:56 AM This report has been signed electronically.
[2022-06-12 10:36] LABS: Bedside Glucose 291 mg/dL (74-106)
== END 2022-06-12 11:24 | disposition home or self-care (01) ==
LOC: EN 08:39 → AC 08:41
PROVIDERS: PCP Family Medicine; Referring Provider Internal Medicine Gastroenterology; Visit Provider Internal Medicine Gastroenterology
PROC: 0DJ08ZZ Inspection of Upper Intestinal Tract, Via Natural or Artificial Opening Endoscopic (ICD-10-PCS; CPT 43235; principal; 2022-06-12 09:40)
DX: I85.00 Esophageal varices without bleeding (principal); J44.9 Chronic obstructive pulmonary disease, unspecified; Z79.4 Long term (current) use of insulin; E11.9 Type 2 diabetes mellitus without complications; K29.50 Unspecified chronic gastritis without bleeding; K31.A0 Gastric intestinal metaplasia, unspecified; K44.9 Diaphragmatic hernia without obstruction or gangrene; K31.819 Angiodysplasia of stomach and duodenum without bleeding; K29.80 Duodenitis without bleeding; F17.200 Nicotine dependence, unspecified, uncomplicated; F41.9 Anxiety disorder, unspecified; F32.A Depression, unspecified; K21.9 Gastro-esophageal reflux disease without esophagitis; I10 Essential (primary) hypertension; E78.00 Pure hypercholesterolemia, unspecified; Z79.899 Other long term (current) drug therapy
CPT/HCPCS: 43239; 82962; 88305; 88342; 94640; J7120; J2405

== ENCOUNTER 2022-11-14 11:04 | Emergency (ER) | payer MEDICARE, MEDICAID, SELFPAY ==
[2022-11-14 11:06] VITALS: BP 172/98; PULSE 103; RESP 18; TEMP 35.7; O2SAT 98; BMI 36.0
--- NOTE | 2022-11-14 12:08 | EDS_ITS ---
HPI <DUGLAS Canchola - Last Filed: 11/14/22 14:38> History of Present Illness Chief Complaint: General Illness Narrative Narrative: Patient is a 67-year-old female with history of migraine headaches, fibromyalgia, chronic back pain, COPD, tobacco use who presents to the emergency department for multiple complaints. Patient states that she has had a migraine headache for the last 2 to 3 days, she does not see any neurologist, she states she normally tough them out. Patient also is complaining of back pain as well as difficulty urinating for multiple weeks. Patient states that the last time she was on antibiotics for her urinary tract infection was in April 2022. Patient also is complaining of cough and she is concerned she has bronchitis. Patient states she is still smoking however is decreased. She denies any vomiting however has significant nausea. Patient also complains of subjective fever and chills. She denies any sick contacts. [facility] <DUGLAS Canchola - Last Filed: 11/14/22 14:38> [facility] Medical History (Updated 11/14/22 @ 14:36 by DUGLAS Canchola) Anxiety Anxiety and depression Arthritis Cardiology follow-up encounter Chronic bronchitis Chronic UTI COPD (chronic obstructive pulmonary disease) Depression Diabetes Diabetes type 2, controlled Diarrhea Essential (primary) hypertension Frequent headaches Gastric reflux Gastritis Gastroparesis GERD (gastroesophageal reflux disease) GI problem High cholesterol History of steroid therapy History of stress test Hypertension Injury of head and neck Insulin dependent diabetes mellitus Leukocytosis Migraine headache Panic disorder with agoraphobia Post-menopausal Seasonal allergies Secondary polycythemia Smoker Smoker Type 2 diabetes mellitus without complications Urinary incontinence Urinary tract infection UTI due to extended-spectrum beta lactamase (ESBL) producing Escherichia coli Vision problem Wears dentures Wears glasses Home Medications carvedilol 3.125 mg tablet 6.25 mg PO BID bp 01/02/22 [History Last Taken 06/12/22] insulin lispro 100 unit/mL subcutaneous pen (Humalog KwikPen (U-100) Insulin) See Protocol subcut TID diabetes 01/02/22 [History Last Taken 01/17/22] naproxen 500 mg tablet (Naprosyn) 500 mg PO BID PRN pain #20 tabs 01/02/22 [Rx Last Taken 01/16/22] ondansetron 4 mg disintegrating tablet 4 mg PO Q8H PRN nausea and vomiting #10 tabs 01/02/22 [Rx Last Taken 01/17/22] atorvastatin 20 mg tablet 20 mg PO QHS cholesterol 01/11/22 [History Last Taken 01/16/22] cholecalciferol (vitamin D3) 50 mcg (2,000 unit) capsule 50 mcg PO DAILY supplement 01/11/22 [History Last Taken 01/13/22] gabapentin 400 mg capsule 400 mg PO TID pain 01/11/22 [History Last Taken 06/12/22] quetiapine 300 mg tablet 300 mg PO QHS mood 01/11/22 [History Last Taken 01/16/22] albuterol sulfate 90 mcg/actuation aerosol inhaler 90 inh inhalation Q4H PRN PRN sob 01/17/22 [History Last Taken 01/17/22] bupropion HCl 150 mg 24 hr tablet, extended release 150 mg PO DAILY mood 01/17/22 [History Last Taken 01/17/22] buspirone 10 mg tablet 10 mg PO TID mood 01/17/22 [History Last Taken 01/17/22] fluticasone furoate 100 mcg-vilanterol 25 mcg/dose inhalation powder (Breo Ellipta) 1 ea inhalation DAILY sob 01/17/22 [History Last Taken 06/12/22] alprazolam 1 mg tablet 1 mg PO TID PRN anxiety #30 tabs 04/26/22 [Rx Last Taken Unknown] omeprazole 40 mg capsule,delayed release 40 mg PO BID gerd 05/01/22 [History Last Taken Unknown] pantoprazole 40 mg tablet,delayed release 40 mg PO DAILY #30 tabs 05/03/22 [Rx Last Taken Unknown] insulin glargine U-300 conc 300 unit/mL (3 mL) subcutaneous pen (Toujeo Max U- 300 SoloStar) 80 unit subcut DAILY diabetes 06/11/22 [History Last Taken Unknown] promethazine 25 mg tablet 25 mg PO Q6H PRN Nausea 06/11/22 [History Last Taken Unknown] metoclopramide HCl 5 mg tablet 5 mg PO TID nausea #90 tabs 07/10/22 [Rx Last Taken Unknown] doxycycline hyclate 100 mg capsule 100 mg PO BID #14 caps 11/14/22 [Rx Last Taken Unknown] metoclopramide HCl 10 mg tablet (Reglan) 10 mg PO Q6H PRN nausea and vomiting #14 tabs 11/14/22 [Rx Last Taken Unknown] Allergy/AdvReac Type Severity Reaction Status Date / Time Penicillins Allergy Hives Verified 11/14/22 11:08 Sulfa (Sulfonamide Allergy Hives Verified 11/14/22 11:08 Antibiotics) varenicline [From Chantix] Allergy Other Verified 11/14/22 11:08 Family History Brother Diabetes Hypertension Surgical History (Updated 06/11/22 @ 08:40 by Estephanie Lira) bladder sling H/O tubal ligation History of appendectomy History of cardiac catheterization Hx of cholecystectomy S/P complete hysterectomy S/P ORIF (open reduction internal fixation) fracture Social History Smoking Status: Current every day smoker tobacco type: cigarettes second hand exposure: Yes alcohol intake: never substance use type: does not use ROS <DUGLAS Cacnhola - Last Filed: 11/14/22 14:38> ROS ED ROS Narrative Constitutional: Negative for weight loss, weakness. Positive for subjective fever and chills Eyes: Negative for vision loss, vision change, double vision ENT: Negative for any sore throat, ear pain, congestion Cardiovascular: Negative for any chest pain, tightness, palpitations Respiratory: Negative for any sputum production, hemoptysis, dyspnea, dyspnea on exertion, orthopnea. Positive for cough Gastrointestinal: Negative for any abdominal pain, vomiting, diarrhea, constipation, blood in stool, blood in vomit. Positive for nausea : Negative for any urinary retention, blood in urine. Positive for frequency, dysuria Muscle skeletal: Negative for any muscle joint pain, stiffness, myalgias, arthralgias, neck pain. Positive for back pain Neurological: Negative for any headache, syncope, numbness or tingling, dizziness Skin: Negative for any rashes, lumps, itching, abrasions, lacerations Psychiatric: Negative for any depression, anxiety, stress, suicidal ideation, homicidal ideation Hematologic: Negative for any easy bruising, excessive bruising, easy bleeding Allergies: Negative for any eczema, hives, rash EXAM <HEATHER CancholaC - Last Filed: 11/14/22 14:38> Physical Exam Narrative Exam Narrative: Vital signs reviewed. Patient appears generally well. Patient is in no distress. HEET: Head normocephalic atraumatic, TMs clear bilaterally. Posterior pharynx is clear, moist mucous membranes. Nares clear bilaterally. Pupils are equal round react to light. Neck: Supple with no lymphadenopathy or tenderness. No signs of meningismus, negative jolt sign. Cardiac: Regular rate and rhythm no murmurs gallops or rubs, equal peripheral pulses bilaterally. Respiratory: Lungs clear to auscultation bilaterally. No chest tenderness. Abdomen: Soft, nontender, nondistended. No abdominal bruit or pulsatile masses. No hepatosplenomegaly Extremities: No peripheral edema, no signs of gross trauma or deformity. Active full range of motion of all extremities. Neuro: Cranial nerves II through XII intact, no focal neurological deficits. Skin: Clean dry and intact with no rash, purpura, petechiae, vesicles or p ustules. Backs/flank: No CVA tenderness, no midline spinal tenderness, no deformity. Complaints of bilateral flank pain however minimal CVA tenderness. Psych: Normal mood and affect. No SI, HI or acute psychosis. Const Vital Signs: 11/14/22 11:06 11/14/22 11:11 11/14/22 13:05 Temperature 96.3 F L Temperature Source Temporal Pulse Rate 103 H Respiratory Rate 18 18 Respiratory Effort Normal Non-Labored Respiratory Pattern Normal Blood Pressure 172/98 H Blood Pressure Mean 122 Pulse Ox 98 Oxygen Delivery Method Room Air Positive well nourished and well developed General Appearance ED: well developed <Dr. Barrett Powell, DO - Last Filed: 11/14/22 17:45> Physical Exam Const Vital Signs: 11/14/22 11:06 11/14/22 11:11 11/14/22 13:05 Temperature 96.3 F L Temperature Source Temporal Pulse Rate 103 H Respiratory Rate 18 18 Respiratory Effort Normal Non-Labored Respiratory Pattern Normal Blood Pressure 172/98 H Blood Pressure Mean 122 Pulse Ox 98 Oxygen Delivery Method Room Air MDM <Carter Martinez NP-C - Last Filed: 11/14/22 14:38> MDM Lab Data Labs: Laboratory Results - last 24 hr 11/14/22 11/14/22 11/14/22 12:22 12:22 13:15 WBC 15.0 H RBC 5.11 Hgb 15.1 H Hct 46.9 MCV 91.8 MCH 29.5 MCHC 32.2 RDW Std Deviation 45.8 H RDW Coeff of Jona 13.5 Plt Count 341 MPV 8.4 Immature Gran % (Auto) 0.500 Neut % (Auto) 66.6 Lymph % (Auto) 25.9 Howell % (Auto) 5.9 Eos % (Auto) 0.6 Baso % (Auto) 0.5 Absolute Neuts (auto) 10.0 H Absolute Lymphs (auto) 3.89 Nucleated RBC % 0 Sodium 141 Potassium 3.7 Chloride 105 Carbon Dioxide 26.0 Anion Gap 10 BUN 5 L Creatinine 0.72 Estim Creat Clear Calc 75.75 Est GFR (MDRD) Af Amer 105 Est GFR (MDRD) Non-Af 86 BUN/Creatinine Ratio 7.0 L Glucose 188 H Calcium 9.1 Urine Color Yellow Urine Clarity Clear Urine pH 7.0 Ur Specific Newberry 1.010 Urine Protein Negative Urine Glucose (UA) Normal Urine Ketones 5 H Urine Occult Blood Negative Urine Nitrite Negative Urine Bilirubin Negative Urine Urobilinogen Normal Ur Leukocyte Esterase Negative Urine RBC 0 SEEN Urine WBC 0-5 SEEN Ur Squamous Epith Cells 0 SEEN Urine Bacteria 1+ Urine Mucus 0 SEEN Radiography Diagnostic Testing: Clinical Impression(s) from Imaging Studies Chest X-Ray 11/14/22 12:52 IMPRESSION: Patchy right lower lobe infiltrate. Electronically Signed: Jose Angel Tim MD at 13:28 EDT , Differential Diagnosis Chest pain/SOB: COPD Abdominal Pain: UTI Differential Diagnosis: Pyelonephritis Why less likely: No fever or chills. Urinalysis was clear Treatment and Re-Evaluation :: All radiologic examinations were read, reviewed by the emergency department attending. From these reads, a plan of care will be put in place. Patient arrives in no distress, patient's vital signs are stable. Patient presents the emergency department with headache, back pain, concern for urinary tract infection as well as coughing. Patient did receive a full work-up. Patient's laboratory values showed a white blood count of 15,000, this is elevated compared to her laboratory values in April 2022 when her white blood count was 11. Patient's chemistries were unremarkable. Glucose is 188 however this is baseline for the patient. Patient's urinalysis was negative for infection, patient when having UTIs in the past had positive nitrates, white b lood cells, +4 bacteria. This is not the case at this time. This will be sent for culture. Patient is negative for COVID-19 or influenza. Patient's chest x- ray shows a patchy right lower lobe infiltrate. Secondary to this, this could be the patient's intermittent feeling of hot and cold as well as worsening cough and fatigue. There is no evidence suspect any pyelonephritis, UTI, COVID or flu . Patient be treated with doxycycline as well as Reglan for nausea. She will follow-up closely with her PCP. She will try to refrain from smoking. I spoke with the patient at length regarding the pneumonia and given return precautions. She is happy with the plan of care and is stable for discharge <Dr. Barrett Powell, DO - Last Filed: 11/14/22 17:45> MDM MDM Narrative Medical decision making narrative: This patient was seen with a PA/SPORTS BOOK WRITER Individually assessed they patient including history and physical. I have reviewed everything on the chart that is available and agree with the documentation provided by the PA/SPORTS BOOK WRITER including discussion about the assessment, treatment plan, discussion, and return precautions. Patient presenting with headache and some lower back pain. She is concerned she is a UTI as she has a history of this. She also complains of cough. Differential at this point includes pneumonia, viral URI, UTI, pyelonephritis. CBC shows a leukocytosis of 15,000 but slightly elevated. Chemistry was unremarkable with exception of glucose. Urinalysis negative for infection. COVID and influenza are negative. Chest x-ray on my interpretation shows a right lower lobe infiltrate. Patient was started on doxycycline for home. She was given antiemetics for home as well. Follow-up with her primary care to ensure resolution. Return precautions discussed. Impression: 1. Leukocytosis 2. Pneumonia 3 back pain Lab Data Labs: Laboratory Results - last 24 hr 11/14/22 11/14/22 11/14/22 12:22 12:22 13:15 WBC 15.0 H RBC 5.11 Hgb 15.1 H Hct 46.9 MCV 91.8 MCH 29.5 MCHC 32.2 RDW Std Deviation 45.8 H RDW Coeff of Jona 13.5 Plt Count 341 MPV 8.4 Immature Gran % (Auto) 0.500 Neut % (Auto) 66.6 Lymph % (Auto) 25.9 Howell % (Auto) 5.9 Eos % (Auto) 0.6 Baso % (Auto) 0.5 Absolute Neuts (auto) 10.0 H Absolute Lymphs (auto) 3.89 Nucleated RBC % 0 Sodium 141 Potassium 3.7 Chloride 105 Carbon Dioxide 26.0 Anion Gap 10 BUN 5 L Creatinine 0.72 Estim Creat Clear Calc 75.75 Est GFR (MDRD) Af Amer 105 Est GFR (MDRD) Non-Af 86 BUN/Creatinine Ratio 7.0 L Glucose 188 H Calcium 9.1 Urine Color Yellow Urine Clarity Clear Urine pH 7.0 Ur Specific Newberry 1.010 Urine Protein Negative Urine Glucose (UA) Normal Urine Ketones 5 H Urine Occult Blood Negative Urine Nitrite Negative Urine Bilirubin Negative Urine Urobilinogen Normal Ur Leukocyte Esterase Negative Urine RBC 0 SEEN Urine WBC 0-5 SEEN Ur Squamous Epith Cells 0 SEEN Urine Bacteria 1+ Urine Mucus 0 SEEN Radiography Diagnostic Testing: Clinical Impression(s) from Imaging Studies Chest X-Ray 11/14/22 12:52 IMPRESSION: Patchy right lower lobe infiltrate. Electronically Signed: Jose Angel Tim MD at 13:28 EDT Reading Location ID and State: [address] [place] [address] , Service support , Discharge Plan Triage Chief Complaint: General Illness Other Complaint: Complaint ED Midlevel Provider: Catrer Martinez ED Provider: Barrett Powell Dx/Rx/DC Orders Clinical Impression: Community acquired pneumonia Instructions: What Is Pneumonia?, ED Pneumonia (Adult) Prescriptions: New doxycycline hyclate 100 mg capsule 100 mg PO BID Qty: 14 0RF metoclopramide HCl [Reglan] 10 mg tablet 10 mg PO Q6H PRN (Reason: nausea and vomiting) Qty: 14 0RF No Action atorvastatin 20 mg tablet 20 mg PO QHS cholecalciferol (vitamin D3) 50 mcg (2,000 unit) capsule 50 mcg PO DAILY gabapentin 400 mg capsule 400 mg PO TID quetiapine 300 mg tablet 300 mg PO QHS alprazolam 1 mg tablet 1 mg PO TID PRN (Reason: anxiety) Qty: 30 0RF carvedilol 3.125 mg tablet 6.25 mg PO BID Label Comments: TAKE 2 TABLETS BY MOUTH TWICE A DAY insulin lispro [Humalog KwikPen Insulin] 100 unit/mL Insulin Pen See Protocol SUBCUT TID Protocol: 1. Sliding Scale Insulin Low Dosing Condition: 150-224 mg/dl = 1 unit Condition: 225-299 mg/dl = 2 units Condition: 300-374 mg/dl = 3 units Condition: 375-499 mg/dl = 4 units Condition: Greater than 449 call physician Protocol Text: - Use for Total Daily Dose of Insulin 15-27 units - Thin, elderly, renal patients LOW DOSING ALGORITHM Rx Instructions: plus sliding scale ondansetron 4 mg tablet,disintegrating 4 mg PO Q8H PRN (Reason: nausea and vomiting) Qty: 10 0RF naproxen [Naprosyn] 500 mg tablet 500 mg PO BID PRN (Reason: pain) Qty: 20 0RF buspirone 10 mg tablet 10 mg PO TID Label Comments: TAKE 1 TABLET BY MOUTH THREE TIMES A DAY albuterol sulfate 90 mcg/actuation HFA aerosol inhaler 90 inh INHALATION Q4H PRN PRN (Reason: sob) Label Comments: TAKE 2 PUFFS BY MOUTH EVERY 4 HOURS NEEDED fluticasone furoate-vilanterol [Breo Ellipta] 100-25 mcg/dose blister with d evice 1 ea INHALATION DAILY Label Comments: INHALE 1 INHALATION INSTRUCTED ONCE DAILY. bupropion HCl 150 mg tablet extended release 24 hr 150 mg PO DAILY Label Comments: TAKE 1 TABLET BY MOUTH EVERY MORNING promethazine [Phenergan] 25 mg Tablet 25 mg PO Q6H PRN (Reason: Nausea) Toujeo Max U-300 SoloStar 300 unit/mL (3 mL) insulin pen 80 unit subcut DAILY omeprazole 40 mg Capsule,Delayed Release(Dr/Ec) 40 mg PO BID pantoprazole 40 mg Tablet,Delayed Release (Dr/Ec) 40 mg PO DAILY Qty: 30 0RF metoclopramide HCl 5 mg tablet 5 mg PO TID Qty: 90 0RF Primary Care Provider: Ricci Broussard Referrals: [place],Ricci, MD [Primary Care Provider] - Activity Restrictions/Additional Instructions: Take antibiotics until completion. Use Reglan for nausea. If you feel worse, please return. Disposition Disposition: Home, Self Care Discharge Date/Time: 11/14/22 15:03
[2022-11-14] MEDS: 0.9% Normal Saline 1,000 ML 1000 ML IV (12:19)
[2022-11-14] MEDS: Ondansetron 4 MG/2 ML Vial IV (12:22)
[2022-11-14] MEDS: Morphine 4 MG/ML Syringe IV (12:22)
[2022-11-14 12:30] LABS: Absolute Lymphocyte Count 3.89 X10^3/uL (0.83-4.51); Basophil# 0.07 X10^3/uL; Basophil% 0.5 % (0-1); Eosinophil# 0.09 X10^3/uL; Eosinophils% 0.6 % (0-5); Hematocrit 46.9 % (37-47); Hemoglobin 15.1 g/dL (12.0-15.0); Lymphocyte # 3.89 X10^3/ul (0.83-4.51); Lymphocyte % 25.9 % (19-41); Mean Corp Hgb Conc 32.2 g/dL (32-36); Mean Corpuscular Hgb 29.5 pg (27.0-32.0); Mean Corpuscular Volume 91.8 fL (81-99); Mean Platelet Vol. 8.4 fl (6.2-12.0); Monocyte# 0.88 X10^3/uL; Monocyte% 5.9 % (0-10); NRBC Flagged by Analyzer 0 % (0-5); Neutrophil # 10.01 X10^3/uL (2.7-7.7); Neutrophil % 66.6 % (47-70); Platelet Count 341 K/mm3 (150-450); RBC Distribution Width CV 13.5 % (11.6-14.6); RBC Distribution Width SD 45.8 fl (35.1-43.9); Red Blood Count 5.11 M/mm3 (4.2-5.4)
--- NOTE | 2022-11-14 12:52 | RAD_ITS ---
STUDY: X-RAY CHEST REASON FOR EXAM: Female, 67 years old. Cough. TECHNIQUE: PA and lateral views of the chest. COMPARISON: Comparison is made with prior study April 30, 2022. FINDINGS: There is a patchy infiltrate in the right lower lobe. There is no demonstrated pleural abnormality. Normal size heart. Normal mediastinum and karsten. Normal visualized pulmonary arteries. Normal visualized aortic arch and descending thoracic aorta. Normal visualized thoracic spine. Normal visualized ribs, clavicles, and shoulders. There is no demonstrated abnormality of the visualized soft tissue structures of the upper abdomen. RAD/Chest PA and Lateral IMPRESSION: Patchy right lower lobe infiltrate. Electronically Signed: Jose Angel Tim MD at 13:28 EDT ,
[2022-11-14 12:54] LABS: Anion Gap 10 (5-15); BUN 5 mg/dL (7-18); Calcium,Total 9.1 mg/dL (8.5-10.1); Chloride 105 mmol/L (98-107); Creatinine, Serum 0.72 mg/dL (0.55-1.02); EST Glomerular Filtration Rate 86 mL/min (>60); Est Glom Filt Rate - Afr Amer 105 mL/min (>60); Estimated Creatinine Clearance 75.75 ml/min; Glucose 188 mg/dL (74-106); Potassium 3.7 mmol/L (3.5-5.1); Sodium Level 141 mmol/L (136-145)
[2022-11-14 13:05] VITALS: RESP 18
[2022-11-14 13:24] LABS: Mucous, Urine 0 SEEN /hpf (<or=2+); Red Blood Cells-Urine 0 SEEN /hpf (0-5); Squamous Epithelial Cells - UA 0 SEEN /hpf (5-10)
[2022-11-14 14:10] LABS: Color, Urine Yellow (Yellow); Glucose, Dipstick Normal (Normal); Ketone-Dipstick 5 mg/dl (Negative); Leukocyte Esterase-Dipstick Negative /ul (Negative); Nitrite-Dipstick Negative (Negative); Occult Blood-Urine Negative /ul (Negative); Protein-Dipstick Negative (Negative); Urine Bilirubin Dipstick Negative (Negative); Urine Clarity Clear (Clear); Urine Urobilinogen Normal (Normal)
[2022-11-14 14:22] LABS: Bacteria 1+ /hpf (None Seen); White Blood Cells 0-5 SEEN /hpf (0-5)
[2022-11-14] MEDS: Metoclopramide 10 MG Tablet PO (14:49)
[2022-11-14] MEDS: Doxycycline 100 MG CAPSULE PO (14:49)
== END 2022-11-14 15:03 | disposition home or self-care (01) ==
PROVIDERS: Nurse Practitioner; Emergency Provider Student in an Organized Health Care Education/Training Program; PCP Family Medicine; Visit Provider Student in an Organized Health Care Education/Training Program
DX: J18.9 Pneumonia, unspecified organism (principal); J44.0 Chronic obstructive pulmonary disease with (acute) lower respiratory infection; E11.43 Type 2 diabetes mellitus with diabetic autonomic (poly)neuropathy; Z79.4 Long term (current) use of insulin; E78.00 Pure hypercholesterolemia, unspecified; M54.9 Dorsalgia, unspecified; I10 Essential (primary) hypertension; D72.829 Elevated white blood cell count, unspecified; Z79.899 Other long term (current) drug therapy; Z79.1 Long term (current) use of non-steroidal anti-inflammatories (NSAID); Z79.51 Long term (current) use of inhaled steroids; F41.8 Other specified anxiety disorders; K21.9 Gastro-esophageal reflux disease without esophagitis; F17.210 Nicotine dependence, cigarettes, uncomplicated
CPT/HCPCS: 71046; 80048; 81001; 85025; 87077; 87086; 87088; 87186; 87428; 96361; 96374; 96375; 99285; J7030; P9612; J2405

== ENCOUNTER 2023-08-04 12:51 | Inpatient (IN) | payer MEDICARE, MEDICAID, SELFPAY ==
[2023-08-04] VITALS (8 sets, daily range): BP systolic 150–185; BP diastolic 68–90; PULSE 74–113; RESP 14–20; TEMP 36.4–37.1; O2SAT 93–98; BMI 36.1
--- NOTE | 2023-08-04 13:07 | EDS_ITS ---
HPI <MARY Henley - Last Filed: 08/04/23 15:41> History of Present Illness Chief Complaint: Complaint Narrative Narrative: 68-year-old female with past medical history of DM2, COPD presents with 2 weeks of urinary frequency and urgency that is getting worse. She states now she feels achy and nauseous. She has also had 2 weeks of increased cough and sputum production and feels slightly short of breath. She uses albuterol and Breo for her COPD. She does not wear home oxygen. Denies chest pain. Denies fever or chills. PFSH <MARY Henley - Last Filed: 08/04/23 15:41> [facility] Medical History (Updated 08/04/23 @ 15:[address] Leeanne Barron MD) Anxiety Anxiety and depression Arthritis Cardiology follow-up encounter Chronic bronchitis Chronic UTI COPD (chronic obstructive pulmonary disease) Depression Diabetes Diabetes type 2, controlled Diarrhea Essential (primary) hypertension Frequent headaches Gastric reflux Gastritis Gastroparesis GERD (gastroesophageal reflux disease) GI problem High cholesterol History of steroid therapy History of stress test Hypertension Injury of head and neck Insulin dependent diabetes mellitus Leukocytosis Migraine headache Panic disorder with agoraphobia Post-menopausal Seasonal allergies Secondary polycythemia Smoker Smoker Type 2 diabetes mellitus without complications Urinary incontinence Urinary tract infection UTI due to extended-spectrum beta lactamase (ESBL) producing Escherichia coli Vision problem Wears dentures Wears glasses Home Medications insulin lispro 100 unit/mL subcutaneous pen (Humalog KwikPen (U-100) Insulin) See Protocol subcut TID diabetes 01/02/22 [History Last Taken 08/03/23] quetiapine 300 mg tablet 300 mg PO QHS mood 01/11/22 [History Last Taken 08/03/23] albuterol sulfate 90 mcg/actuation aerosol inhaler 90 inh inhalation Q4H PRN PRN sob 01/17/22 [History Last Taken 01/17/22] bupropion HCl 150 mg 24 hr tablet, extended release 150 mg PO DAILY mood 01/17/22 [History Last Taken 08/04/23] buspirone 10 mg tablet 20 mg PO TID mood 01/17/22 [History Last Taken 08/03/23] fluticasone furoate 100 mcg-vilanterol 25 mcg/dose inhalation powder (Breo Ellipta) 1 ea inhalation DAILY sob 01/17/22 [History Last Taken 08/04/23] omeprazole 40 mg capsule,delayed release 40 mg PO DAILY gerd 05/01/22 [History Last Taken 08/04/23] insulin glargine U-300 conc 300 unit/mL (3 mL) subcutaneous pen (Toujeo Max U- 300 SoloStar) 80 unit subcut DAILY diabetes 06/11/22 [History Last Taken 08/03/23] escitalopram oxalate 20 mg tablet 20 mg PO DAILY 08/04/23 [History Last Taken 08/04/23] quetiapine 25 mg tablet 25 mg PO TID 08/04/23 [History Last Taken 08/04/23] Allergy/AdvReac Type Severity Reaction Status Date / Time Penicillins Allergy Hives Verified 08/04/23 12:52 Sulfa (Sulfonamide Allergy Hives Verified 08/04/23 12:52 Antibiotics) varenicline [From Chantix] Allergy Other Verified 08/04/23 12:52 Family History Brother Diabetes Hypertension Surgical History (Updated 06/11/22 @ 08:40 by Estephanie Lira) bladder sling H/O tubal ligation History of appendectomy History of cardiac catheterization Hx of cholecystectomy S/P complete hysterectomy S/P ORIF (open reduction internal fixation) fracture Social History Smoking Status: Current every day smoker tobacco type: cigarettes second hand exposure: Yes alcohol intake: never substance use type: does not use ROS <MARY Henley - Last Filed: 08/04/23 15:41> ROS ED ROS Narrative Constitutional: Negative for fever, chills, malaise. CVS: Negative for palpitations, chest pain, syncope. Respiratory: Positive for shortness of breath, cough. GI: Positive for nausea. Negative for vomiting. : Positive for dysuria, frequency. Negative for hematuria. EXAM <MARY Henley - Last Filed: 08/04/23 15:41> Physical Exam Narrative Exam Narrative: CONST: Patient sitting in no acute distress. EYES: Normal inspection. NECK: Normal inspection. RESP: No respiratory distress, CTAB. CVS: Regular rate and rhythm, no murmur, no gallop. ABD: Soft with suprapubic tenderness, no guarding or rebound, nondistended, no hepatosplenomegaly. Back: Normal inspection, no CVA tenderness. SKIN: Color normal, no rash, warm, dry, intact. EXTREMITIES: Normal appearance, no pedal edema. NEURO: Oriented x4. PSYCH: Normal affect. Const Vital Signs: 08/04/23 12:53 08/04/23 14:50 Temperature 97.5 F L 98.1 F Temperature Source Temporal Oral Pulse Rate 113 H 89 Respiratory Rate 20 H 17 Blood Pressure 185/90 H 156/79 H Blood Pressure Mean 121 104 Pulse Ox 98 93 Oxygen Delivery Method Room Air Room Air <Dr. Audie Walker DO - Last Filed: 08/04/23 15:35> Physical Exam Const Vital Signs: 08/04/23 12:53 08/04/23 14:50 Temperature 97.5 F L 98.1 F Temperature Source Temporal Oral Pulse Rate 113 H 89 Respiratory Rate 20 H 17 Blood Pressure 185/90 H 156/79 H Blood Pressure Mean 121 104 Pulse Ox 98 93 Oxygen Delivery Method Room Air Room Air MDM <MARY Henley - Last Filed: 08/04/23 15:41> [facility] Narrative Medical decision making narrative: Patient has had 2 weeks of increased cough and sputum production with history of COPD and also 2 weeks of urinary urgency and frequency. She appears well and nontoxic. Heart rate 113 with otherwise normal vital signs. During my examination he is tachycardic with rhythm and lungs are clear. She has localized suprapubic tenderness but no peritoneal signs. No flank tenderness. CXR is negative. She probably has a viral illness causing her cough but is not wheezing or in any respiratory distress so I do not think steroids are indicated. Labs show WBC of 14.0 and BMP is normal except for glucose of 241 consistent with her diabetes. UA is nitrite positive with 10-25 WBCs and rare bacteria. Culture sent. Past urine cultures grew ESBL E. coli. In the past she has failed outpatient treatment, she is allergic to penicillins and sulfa so treatment options are more limited. Since she does not feel well and heart rate is still around 100 I feel she needs admitted for IV antibiotics. In the past she was treated with IV cefepime and had no improvement so ID switched to meropenem so I ordered a dose of meropenem. Case will be discussed with the hospitalist for admission. External records reviewed: Most recent urine culture 11/14/2022 is ESBL E. coli Lab Data Attestation: I reviewed the patient's lab results. Labs: Laboratory Results - last 24 hr 08/04/23 08/04/23 13:15 13:35 WBC 14.0 H RBC 5.08 Hgb 14.9 Hct 46.8 MCV 92.1 MCH 29.3 MCHC 31.8 L RDW Std Deviation 45.5 H RDW Coeff of Jona 13.4 Plt Count 327 MPV 8.8 Immature Gran % (Auto) 0.500 Neut % (Auto) 70.3 H Lymph % (Auto) 22.1 Mcdowell % (Auto) 5.9 Eos % (Auto) 0.6 Baso % (Auto) 0.6 Absolute Neuts (auto) 9.9 H Absolute Lymphs (auto) 3.10 Nucleated RBC % 0 Sodium 139 Potassium 3.8 Chloride 106 Carbon Dioxide 24.0 Anion Gap 9 BUN 10 Creatinine 0.78 Estim Creat Clear Calc 53.81 Est GFR (MDRD) Af Amer 95 Est GFR (MDRD) Non-Af 78 BUN/Creatinine Ratio 12.8 Glucose 241 H Calcium 9.2 Urine Color Yellow Urine Clarity Clear Urine pH 5.0 Ur Specific [place] 1.020 Urine Protein 30 H Urine Glucose (UA) Normal Urine Ketones 5 H Urine Occult Blood 25 H Urine Nitrite Positive H Urine Bilirubin Negative Urine Urobilinogen Normal Ur Leukocyte Esterase 500 H Urine RBC 0 SEEN Urine WBC 10-25 SEEN Ur Squamous Epith Cells 0-5 SEEN Urine Bacteria RARE Urine Mucus 0 SEEN Radiography Diagnostic Testing: Clinical Impression(s) from Imaging Studies Chest X-Ray 08/04/23 13:40 IMPRESSION: No acute abnormality is seen. Electronically Signed: Jose Angel Tim MD at 14:04 EST , <Dr. Audie Walker, DO - Last Filed: 08/04/23 15:35> [facility] MDM Narrative Medical decision making narrative: Patient has had 2 weeks of increased cough and sputum production with history of COPD and also 2 weeks of urinary urgency and frequency. She appears well and nontoxic. Heart rate 113 with otherwise normal vital signs. During my examination he is tachycardic with rhythm and lungs are clear. She has localized suprapubic tenderness but no peritoneal signs. No flank tenderness. CXR is negative. She probably has a viral illness causing her cough but is not wheezing or in any respiratory distress so I do not think steroids are indicated. Labs show WBC of 14.0 and BMP is normal except for glucose of 241 consistent with her diabetes. UA is nitrite positive with 10-25 WBCs and rare bacteria. Culture sent. Past urine cultures grew ESBL E. coli. In the past she has failed outpatient treatment, she is allergic to penicillins and sulfa so treatment options are more limited. Since she does not feel well and heart rate is still around 100 I feel she needs admitted for IV antibiotics. In the past she was treated with IV cefepime and had no improvement so ID switched to meropenem so I ordered a dose of meropenem. Case will be discussed with the hospitalist for admission. External records reviewed: Most recent urine culture 11/14/2022 is ESBL E. coli I have personally performed a face to face assessment of the patient and have reviewed the KAR Note. I performed a substantive portion of the visit including all aspects of the following. My moreno findings include: History is patient presenting to the emergency room with concern for urinary tract infection. She has had to have midline with IV antibiotics recently due to ESBL E. coli. Patient notes dysuria. Noted to be tachycardic. She also notes cough and is concerned about possible pneumonia. Exam is tachycardic. Afebrile. Patient has no hypoperfusion. Medical Decison Making White count is 18. Urine 25 white cells rare bacteria this will be sent for culture. Patient given a dose ertapenem. Will speak with her regarding possible admission. Lab Data Labs: Laboratory Results - last 24 hr 08/04/23 08/04/23 13:15 13:35 WBC 14.0 H RBC 5.08 Hgb 14.9 Hct 46.8 MCV 92.1 MCH 29.3 MCHC 31.8 L RDW Std Deviation 45.5 H RDW Coeff of Jona 13.4 Plt Count 327 MPV 8.8 Immature Gran % (Auto) 0.500 Neut % (Auto) 70.3 H Lymph % (Auto) 22.1 Mcdowell % (Auto) 5.9 Eos % (Auto) 0.6 Baso % (Auto) 0.6 Absolute Neuts (auto) 9.9 H Absolute Lymphs (auto) 3.10 Nucleated RBC % 0 Sodium 139 Potassium 3.8 Chloride 106 Carbon Dioxide 24.0 Anion Gap 9 BUN 10 Creatinine 0.78 Estim Creat Clear Calc 53.81 Est GFR (MDRD) Af Amer 95 Est GFR (MDRD) Non-Af 78 BUN/Creatinine Ratio 12.8 Glucose 241 H Calcium 9.2 Urine Color Yellow Urine Clarity Clear Urine pH 5.0 Ur Specific [place] 1.020 Urine Protein 30 H Urine Glucose (UA) Normal Urine Ketones 5 H Urine Occult Blood 25 H Urine Nitrite Positive H Urine Bilirubin Negative Urine Urobilinogen Normal Ur Leukocyte Esterase 500 H Urine RBC 0 SEEN Urine WBC 10-25 SEEN Ur Squamous Epith Cells 0-5 SEEN Urine Bacteria RARE Urine Mucus 0 SEEN Radiography Diagnostic Testing: Clinical Impression(s) from Imaging Studies Chest X-Ray 08/04/23 13:40 IMPRESSION: No acute abnormality is seen. Electronically Signed: Jose Angel Tim MD at 14:04 EST Reading Location ID and State: [address] [place] [address] , Service support , Discharge Plan Triage Chief Complaint: Complaint ED Midlevel Provider: Marylu Gillespie ED Provider: Audie Walker Dx/Rx/DC Orders Clinical Impression: Sepsis, Acute UTI Prescriptions: No Action quetiapine 300 mg tablet 300 mg PO QHS insulin lispro [Humalog KwikPen Insulin] 100 unit/mL Insulin Pen See Protocol SUBCUT TID Protocol: 1. Sliding Scale Insulin Low Dosing Condition: 150-224 mg/dl = 1 unit Condition: 225-299 mg/dl = 2 units Condition: 300-374 mg/dl = 3 units Condition: 375-499 mg/dl = 4 units Condition: Greater than 449 call physician Protocol Text: - Use for Total Daily Dose of Insulin 15-27 units - Thin, elderly, renal patients LOW DOSING ALGORITHM Rx Instructions: plus sliding scale buspirone 10 mg tablet 20 mg PO TID albuterol sulfate 90 mcg/actuation HFA aerosol inhaler 90 inh INHALATION Q4H PRN PRN (Reason: sob) Patient Comments: TAKE 2 PUFFS BY MOUTH EVERY 4 HOURS NEEDED fluticasone furoate-vilanterol [Breo Ellipta] 100-25 mcg/dose blister with device 1 ea INHALATION DAILY Patient Comments: INHALE 1 INHALATION INSTRUCTED ONCE DAILY. bupropion HCl 150 mg tablet extended release 24 hr 150 mg PO DAILY Patient Comments: TAKE 1 TABLET BY MOUTH EVERY MORNING Toujeo Max U-300 SoloStar 300 unit/mL (3 mL) insulin pen 80 unit subcut DAILY omeprazole 40 mg Capsule,Delayed Release(Dr/Ec) 40 mg PO DAILY escitalopram oxalate 20 mg tablet 20 mg PO DAILY quetiapine 25 mg tablet 25 mg PO TID Primary Care Provider: Ricci Broussard Referrals: Ricci Broussard MD [Primary Care Provider] -
[2023-08-04 13:19] LABS: Mucous, Urine 0 SEEN /hpf (<or=2+); Red Blood Cells-Urine 0 SEEN /hpf (0-5)
[2023-08-04] MEDS: Acetaminophen 325 MG Tablet 650 MG PO (13:31)
[2023-08-04] MEDS: Ondansetron 4 MG/2 ML Vial IV (13:36)
[2023-08-04 13:37] LABS: Color, Urine Yellow (Yellow); Glucose, Dipstick Normal (Normal); Ketone-Dipstick 5 mg/dl (Negative); Leukocyte Esterase-Dipstick 500 /ul (Negative); Nitrite-Dipstick Positive (Negative); Occult Blood-Urine 25 /ul (Negative); Protein-Dipstick 30 mg/dl (Negative); Urine Bilirubin Dipstick Negative (Negative); Urine Clarity Clear (Clear); Urine Urobilinogen Normal (Normal)
--- NOTE | 2023-08-04 13:40 | RAD_ITS ---
STUDY: X-RAY CHEST REASON FOR EXAM: Female, 68 years old. Cough TECHNIQUE: PA and lateral views of the chest. COMPARISON: Comparison is made with prior study dated November 14, 2022. FINDINGS: The lungs are clear and expanded. There is no demonstrated pleural abnormality. Normal size heart. Normal mediastinum and karsten. Normal visualized pulmonary arteries. There is atherosclerotic tortuosity of the aortic arch and descending thoracic aorta. There are diffuse degenerative changes of the visualized thoracic spine. Normal visualized ribs, clavicles, and shoulders. There is no demonstrated abnormality of the visualized soft tissue structures of the upper abdomen. RAD/Chest PA and Lateral IMPRESSION: No acute abnormality is seen. Electronically Signed: Jose Angel Tim MD at 14:04 EST ,
[2023-08-04 13:43] LABS: Absolute Neutrophil Count 9.9 X10^3/uL (2.0-7.7); Basophil# 0.09 X10^3/uL; Basophil% 0.6 % (0-1); Eosinophil# 0.08 X10^3/uL; Eosinophils% 0.6 % (0-5); Hematocrit 46.8 % (37-47); Hemoglobin 14.9 g/dL (12.0-15.0); Lymphocyte % 22.1 % (19-41); Mean Corp Hgb Conc 31.8 g/dL (32-36); Mean Corpuscular Hgb 29.3 pg (27.0-32.0); Mean Corpuscular Volume 92.1 fL (81-99); Mean Platelet Vol. 8.8 fl (6.2-12.0); Monocyte# 0.83 X10^3/uL; Monocyte% 5.9 % (0-10); NRBC Flagged by Analyzer 0 % (0-5); Neutrophil # 9.85 X10^3/uL (2.7-7.7); Neutrophil % 70.3 % (47-70); Platelet Count 327 K/mm3 (150-450); RBC Distribution Width CV 13.4 % (11.6-14.6); RBC Distribution Width SD 45.5 fl (35.1-43.9); Red Blood Count 5.08 M/mm3 (4.2-5.4)
[2023-08-04 13:56] LABS: Bacteria RARE /hpf (None Seen); Squamous Epithelial Cells - UA 0-5 SEEN /hpf (5-10); White Blood Cells 10-25 SEEN /hpf (0-5)
[2023-08-04 13:57] LABS: Anion Gap 9 (5-15); BUN 10 mg/dL (7-18); BUN/Creat Ratio 12.8 RATIO (10-20); Calcium,Total 9.2 mg/dL (8.5-10.1); Chloride 106 mmol/L (98-107); Creatinine, Serum 0.78 mg/dL (0.55-1.02); EST Glomerular Filtration Rate 78 mL/min (>60); Est Glom Filt Rate - Afr Amer 95 mL/min (>60); Estimated Creatinine Clearance 53.81 ml/min; Glucose 241 mg/dL (74-106); Potassium 3.8 mmol/L (3.5-5.1); Sodium Level 139 mmol/L (136-145)
[2023-08-04] MEDS: Meropenem 1 GM in 0.9% Normal Saline (100mL MB+) 100 ML IV (14:56)
--- NOTE | 2023-08-04 15:06 | PCM.HP.STD ---
HPI - General General Date of Admission: 08/04/23 Date of Service: 08/04/23 Chief Complaint: Chills, urinary burning and frequency HPI Narrative DAMIEN BROWNLEE, is a 68-year-old female history of COPD, GERD, hypertension, type 2 diabetes mellitus who presented to [facility] 08/04/2023 with 2 weeks of urinary frequency and urgency that has been getting worse and now she is feeling achy and nauseous. Additionally complained of 2 weeks of increasing cough and sputum production with some slight shortness of breath and does have history of COPD on home inhalers. In the ED patient initially with temp 97.5 and heart rate 113, BP 185/90, respiratory rate 20 with pulse ox 98% on room air. UA reports rare bacteria however patient with leuk esterase, white blood cells, occult blood and nitrate positive and has elevated white blood cell count of 14. Given her multiple allergies to antibiotics as well as history of ESBL with limited treatment options hospitalist contacted for admission for IV antibiotics. Patient seen at bedside and reports that for 2 weeks she has been having some lower abdominal discomfort, urinary frequency, urinary burning and more recently has been getting migraines and has been having body aches. Also feels like it has been harder to breathe recently and had a cough that was light green and now is somewhat thick and clear for the past 2 to 3 days. Also reports some sinus drainage and that she alternates between feeling cold and hot but does not have known recorded temperature. Denies changes in bowels, denies any swelling, no chest pain, no other acute complaints at this time. [facility] Medical History (Updated 08/04/23 @ 15:[address] Leeanne Barron MD) Anxiety Anxiety and depression Arthritis Cardiology follow-up encounter Chronic bronchitis Chronic UTI COPD (chronic obstructive pulmonary disease) Depression Diabetes Diabetes type 2, controlled Diarrhea Essential (primary) hypertension Frequent headaches Gastric reflux Gastritis Gastroparesis GERD (gastroesophageal reflux disease) GI problem High cholesterol History of steroid therapy History of stress test Hypertension Injury of head and neck Insulin dependent diabetes mellitus Leukocytosis Migraine headache Panic disorder with agoraphobia Post-menopausal Seasonal allergies Secondary polycythemia Smoker Smoker Type 2 diabetes mellitus without complications Urinary incontinence Urinary tract infection UTI due to extended-spectrum beta lactamase (ESBL) producing Escherichia coli Vision problem Wears dentures Wears glasses Home Medications insulin lispro 100 unit/mL subcutaneous pen (Humalog KwikPen (U-100) Insulin) See Protocol subcut TID diabetes 01/02/22 [History Last Taken 08/03/23] quetiapine 300 mg tablet 300 mg PO QHS mood 01/11/22 [History Last Taken 08/03/23] albuterol sulfate 90 mcg/actuation aerosol inhaler 90 inh inhalation Q4H PRN PRN sob 01/17/22 [History Last Taken 01/17/22] bupropion HCl 150 mg 24 hr tablet, extended release 150 mg PO DAILY mood 01/17/22 [History Last Taken 08/04/23] buspirone 10 mg tablet 20 mg PO TID mood 01/17/22 [History Last Taken 08/03/23] fluticasone furoate 100 mcg-vilanterol 25 mcg/dose inhalation powder (Breo Ellipta) 1 ea inhalation DAILY sob 01/17/22 [History Last Taken 08/04/23] omeprazole 40 mg capsule,delayed release 40 mg PO DAILY gerd 05/01/22 [History Last Taken 08/04/23] insulin glargine U-300 conc 300 unit/mL (3 mL) subcutaneous pen (Toujeo Max U-300 SoloStar) 80 unit subcut DAILY diabetes 06/11/22 [History Last Taken 08/03/23] escitalopram oxalate 20 mg tablet 20 mg PO DAILY 08/04/23 [History Last Taken 08/04/23] quetiapine 25 mg tablet 25 mg PO TID 08/04/23 [History Last Taken 08/04/23] Allergy/AdvReac Type Severity Reaction Status Date / Time Penicillins Allergy Hives Verified 08/04/23 12:52 Sulfa (Sulfonamide Allergy Hives Verified 08/04/23 12:52 Antibiotics) varenicline [From Chantix] Allergy Other Verified 08/04/23 12:52 Family History Brother Diabetes Hypertension Surgical History (Updated 06/11/22 @ 08:40 by Estephanie Lira) bladder sling H/O tubal ligation History of appendectomy History of cardiac catheterization Hx of cholecystectomy S/P complete hysterectomy S/P ORIF (open reduction internal fixation) fracture Social History Smoking Status: Current every day smoker tobacco type: cigarettes second hand exposure: Yes alcohol intake: never substance use type: does not use ROS ROS Narrative General: Alternates between hot and cold HENT: Denies headache, little bit of sinus drainage, denies sore throat EYES: Chronic vision changes Resp: Does feels a little bit harder to take breaths, has cough with some thick and clear mucus Cardiac: Denies chest pain GI: Some lower abdominal pressure/pain, denies changes in bowel, denies nausea/vomiting : Frequency, urgency, dysuria Extremity: Denies swelling MSK: Feels achy all over Neuro: Denies any numbness/tingling Heme: Denies any bleeding or bruising Skin: Denies rashes Psychiatric: No complaints voiced Vital Signs Vital Signs Vital Signs: 08/04/23 12:53 08/04/23 14:50 Temperature 97.5 F L 98.1 F Temperature Source Temporal Oral Pulse Rate 113 H 89 Respiratory Rate 20 H 17 Blood Pressure 185/90 H 156/79 H Blood Pressure Mean 121 104 Pulse Ox 98 93 Oxygen Delivery Method Room Air Room Air Weight Weight: 104.5 kg Body Mass Index (BMI) 36.1 Physical Exam Narrative General: Alert, oriented, no apparent distress HEENT: Atraumatic, normocephalic Eyes: Anicteric, normal conjunctiva, extraocular movements grossly intact Neck: Supple Respiratory: Clear to auscultation bilaterally, normal respiratory effort Cardiovascular: Regular rate and rhythm GI: Soft, nondistended, slight tenderness suprapubically without rebound, guarding, rigidity Extremities: No edema Musculoskeletal: Moving all extremities Neuro: No overt focal neurological deficits Skin: No rashes appreciated Psych: Cooperative Results Lab / Micro Data 08/04/23 13:35 08/04/23 13:35 Labs: Laboratory Results - last 24 hr 08/04/23 13:15: Urine Color Yellow, Urine Clarity Clear, Urine pH 5.0, Ur Specific [place] 1.020, Urine Protein 30 H, Urine Glucose (UA) Normal, Urine Ketones 5 H, Urine Occult Blood 25 H, Urine Nitrite Positive H, Urine Bilirubin Negative, Urine Urobilinogen Normal, Ur Leukocyte Esterase 500 H, Urine RBC 0 SEEN, Urine WBC 10-25 SEEN, Ur Squamous Epith Cells 0-5 SEEN, Urine Bacteria RARE, Urine Mucus 0 SEEN 08/04/23 13:35: WBC 14.0 H, RBC 5.08, Hgb 14.9, Hct 46.8, MCV 92.1, MCH 29.3, MCHC 31.8 L, RDW Std Deviation 45.5 H, RDW Coeff of Jona 13.4, Plt Count 327, MPV 8.8, Immature Gran % (Auto) 0.500, Neut % (Auto) 70.3 H, Lymph % (Auto) 22.1, [place] % (Auto) 5.9, Eos % (Auto) 0.6, Baso % (Auto) 0.6, Absolute Neuts (auto) 9.9 H, Absolute Lymphs (auto) 3.10, Nucleated RBC % 0, Sodium 139, Potassium 3.8, Chloride 106, Carbon Dioxide 24.0, Anion Gap 9, BUN 10, Creatinine 0.78, Estim Creat Clear Calc 53.81, Est GFR (MDRD) Af Amer 95, Est GFR (MDRD) Non-Af 78, BUN/Creatinine Ratio 12.8, Glucose 241 H, Calcium 9.2 Imagaing Radiology Impression Chest X-Ray 08/04/23 13:40 IMPRESSION: No acute abnormality is seen. Electronically Signed: Jose Angel Tim MD at 14:04 EST , Assessment & Plan Assessment/Plan (1) Acute UTI: (2) COPD (chronic obstructive pulmonary disease): (3) Fibromyalgia: (4) Tobacco abuse: (5) Anxiety and depression: (6) Diabetes: QUALIFIERS: Diabetes mellitus type: type 2 Diabetes mellitus senior living insulin use: with senior living use Diabetes mellitus complication status: with hyperglycemia Qualified Code(s): E11.65 - Type 2 diabetes mellitus with hyperglycemia; Z79.4 - custodial (current) use of insulin (7) GERD (gastroesophageal reflux disease): (8) Hypertension: PLAN: Plan #Acute UTI -History of ESBL, admitted for IV abx -Has been successfully treated with Merrem in the past -Received one-time dose in ED, continue meropenem -Await urine culture -Has white blood cell count of 14 and has been feeling chills at home with generalized aches and was somewhat tachycardic on presentation, will obtain blood cultures -Will hydrate with IV fluids, patient does not appear septic and does not meet sepsis criteria so do not need 30 cc/kg #COPD -Chest x-ray unremarkable, vitally stable -Has used rescue inhaler over the past 2 to 3 days and has had some increased cough and feels it has been a little bit harder to breathe -Continue home inhaled steroid and will add nebs #HTN -Continue home medications #Mood d/o NOS -Continue home medications #GERD -Continue PPI #Type 2 diabetes mellitus -Glucose checks and sliding scale insulin -Continue long-acting insulin #Tobacco use -Advise cessation -Patient agreeable to nicotine replacement #DVT ppx: Lovenox subcu Leeanne Barron MD Time spent in the patient's overall evaluation,decision-making process, review of diagnostic data, adjustment of management, discussion with other providers, nursing nursing and ancillary staff involved in patient's care documentation, 55 Minutes Charges/Coding Visit Charges Inpatient E&M: 07660 Init Hosp L2
[2023-08-04] MEDS: Ketorolac 15 MG/ML Vial IV (16:08)
[2023-08-04 18:21] LABS: Bedside Glucose 121 mg/dL (74-106)
[2023-08-05] VITALS (9 sets, daily range): BP systolic 129–165; BP diastolic 64–81; PULSE 70–82; RESP 12–20; TEMP 36.7–36.9; O2SAT 93–98
[2023-08-05] MEDS: Acetaminophen 325 MG Tablet 650 MG PO ×2 (00:02→09:58)
[2023-08-05] MEDS: busPIRone 5 MG Tablet 20 MG PO ×4 (00:07→22:23)
[2023-08-05] MEDS: QUEtiapine 100 MG Tablet 300 MG PO ×2 (00:09→22:24)
[2023-08-05] MEDS: 0.9% Saline Lock 10 ML Syringe IV ×4 (00:10→22:34)
[2023-08-05] MEDS: 0.9% Normal Saline (1000mL) 1,000 ML 75 ML IV (00:40)
[2023-08-05] MEDS: Meropenem 1 GM in 0.9% Normal Saline (100mL MB+) 100 ML IV ×4 (00:46→22:28)
[2023-08-05] MEDS: Insulin Lispro 100 UNIT/ML INSULN.PEN SC ×4 (01:18→22:19)
[2023-08-05] MEDS: Ibuprofen 400 MG Tablet PO ×4 (01:20→22:45)
[2023-08-05] MEDS: Ondansetron 4 MG/2 ML Vial IV ×2 (01:24→13:36)
[2023-08-05 01:59] LABS: Bedside Glucose 174 mg/dL (74-106)
[2023-08-05] MEDS: Morphine 4 MG/ML Syringe IV ×2 (04:45→17:28)
[2023-08-05 06:02] LABS: Absolute Lymphocyte Count 4.42 X10^3/uL (0.83-4.51); Absolute Neutrophil Count 5.8 X10^3/uL (2.0-7.7); Basophil# 0.04 X10^3/uL; Basophil% 0.4 % (0-1); Eosinophil# 0.14 X10^3/uL; Eosinophils% 1.2 % (0-5); Hematocrit 41.3 % (37-47); Hemoglobin 13.5 g/dL (12.0-15.0); Lymphocyte # 4.42 X10^3/ul (0.83-4.51); Lymphocyte % 39.3 % (19-41); Mean Corp Hgb Conc 32.7 g/dL (32-36); Mean Corpuscular Hgb 30.5 pg (27.0-32.0); Mean Corpuscular Volume 93.4 fL (81-99); Mean Platelet Vol. 8.8 fl (6.2-12.0); Monocyte# 0.79 X10^3/uL; NRBC Flagged by Analyzer 0 % (0-5); Neutrophil # 5.83 X10^3/uL (2.7-7.7); Neutrophil % 51.7 % (47-70); Platelet Count 273 K/mm3 (150-450); RBC Distribution Width CV 13.7 % (11.6-14.6); RBC Distribution Width SD 46.9 fl (35.1-43.9); Red Blood Count 4.42 M/mm3 (4.2-5.4); White Blood Count 11.3 K/mm3 (4.4-11.0)
[2023-08-05 06:25] LABS: Anion Gap 5 (5-15); BUN 12 mg/dL (7-18); BUN/Creat Ratio 18.8 RATIO (10-20); Calcium,Total 8.4 mg/dL (8.5-10.1); Chloride 110 mmol/L (98-107); Creatinine, Serum 0.64 mg/dL (0.55-1.02); EST Glomerular Filtration Rate 99 mL/min (>60); Est Glom Filt Rate - Afr Amer 120 mL/min (>60); Estimated Creatinine Clearance 53.81 ml/min; Glucose 130 mg/dL (74-106); Potassium 3.7 mmol/L (3.5-5.1); Sodium Level 142 mmol/L (136-145)
[2023-08-05] MEDS: Budesonide Respules 0.5 MG/2 ML AMPUL.NEB. INHALATION ×2 (06:52→21:18)
[2023-08-05] MEDS: Ipratropium/Albuterol Sulfate 3 ML AMPUL.NEB INHALATION ×3 (06:52→21:17)
[2023-08-05 06:58] LABS: Bedside Glucose 130 mg/dL (74-106)
--- NOTE | 2023-08-05 07:18 | PCM.PN.HOSP ---
Reason for Visit Reason for Visit: Chills/Urinary burning/frequency Subjective Subjective Patient is a 68-year-old white female who presented the emergency department [facility] on 08/04/2023 complaining of chills, urinary burning, and urinary frequency. She evidently had been having a 2 weeks of ongoing urinary symptoms and had been slowly getting work. On presentation she was also feeling achy and nauseous. She additionally complained of 2 weeks of increased cough and sputum production with some slight shortness of breath and does have a history of COPD at home. She has been compliant with her inhalers. Vital signs on presentation were unremarkable other than her blood pressure was elevated 185/90. UA was consistent with infection. Previous urine cultures had been noted and she does have a history of ESBL producing organisms. She has allergies to penicillins and sulfa. She was admitted to telemetry floor and started on meropenem after urine cultures were sent. She did not meet sepsis criteria on presentation and was gently hydrated with IV fluids. Currently blood and urine cultures are pending. Patient states she has ongoing headache. She states what ever they gave her last night helped for a couple hours. It appears it was morphine. Had I will give her 1 more dose to see if this helps her headache but would like to avoid repeated dosing of narcotics for headache. Her suprapubic pain has improved as has her nausea but she still complains of some mild nausea. Objective Data Objective Data Vital Signs: Vital Signs Temp Pulse Resp BP Pulse Ox O2 Del Method 98.1 F 78 18 133/81 H 95 Room Air 08/05/23 04:19 08/05/23 06:54 08/05/23 06:54 08/05/23 04:43 08/05/23 04:19 08/05/23 04:19 Oxygen Delivery Method Room Air Weight: 104.5 kg Body Mass Index (BMI) 36.1 Intake & Output: Intake and Output for Last 24 Hours 08/03/23 08/04/23 08/05/23 23:59 23:59 23:59 Intake Total 120 / 370 490 / 490 Balance 120 / 370 490 / 490 Lab / Micro Data 08/05/23 05:45 08/05/23 05:45 Labs: Laboratory Results - last 24 hr 08/04/23 13:15: Urine Color Yellow, Urine Clarity Clear, Urine pH 5.0, Ur Specific [place] 1.020, Urine Protein 30 H, Urine Glucose (UA) Normal, Urine Ketones 5 H, Urine Occult Blood 25 H, Urine Nitrite Positive H, Urine Bilirubin Negative, Urine Urobilinogen Normal, Ur Leukocyte Esterase 500 H, Urine RBC 0 SEEN, Urine WBC 10-25 SEEN, Ur Squamous Epith Cells 0-5 SEEN, Urine Bacteria RARE, Urine Mucus 0 SEEN 08/04/23 13:35: WBC 14.0 H, RBC 5.08, Hgb 14.9, Hct 46.8, MCV 92.1, MCH 29.3, MCHC 31.8 L, RDW Std Deviation 45.5 H, RDW Coeff of Jona 13.4, Plt Count 327, MPV 8.8, Immature Gran % (Auto) 0.500, Neut % (Auto) 70.3 H, Lymph % (Auto) 22.1, [place] % (Auto) 5.9, Eos % (Auto) 0.6, Baso % (Auto) 0.6, Absolute Neuts (auto) 9.9 H, Absolute Lymphs (auto) 3.10, Nucleated RBC % 0, Sodium 139, Potassium 3.8, Chloride 106, Carbon Dioxide 24.0, Anion Gap 9, BUN 10, Creatinine 0.78, Estim Creat Clear Calc 53.81, Est GFR (MDRD) Af Amer 95, Est GFR (MDRD) Non-Af 78, BUN/Creatinine Ratio 12.8, Glucose 241 H, Calcium 9.2 08/04/23 18:03: POC Glucose 121 H 08/05/23 01:09: POC Glucose 174 H 08/05/23 05:45: WBC 11.3 H, RBC 4.42, Hgb 13.5, Hct 41.3, MCV 93.4, MCH 30.5, MCHC 32.7, RDW Std Deviation 46.9 H, RDW Coeff of Jona 13.7, Plt Count 273, MPV 8.8, Immature Gran % (Auto) 0.400, Neut % (Auto) 51.7, Lymph % (Auto) 39.3, [place] % (Auto) 7.0, Eos % (Auto) 1.2, Baso % (Auto) 0.4, Absolute Neuts (auto) 5.8, Absolute Lymphs (auto) 4.42, Nucleated RBC % 0, Sodium 142, Potassium 3.7, Chloride 110 H, Carbon Dioxide 27.0, Anion Gap 5, BUN 12, Creatinine 0.64, Estim Creat Clear Calc 53.81, Est GFR (MDRD) Af Amer 120, Est GFR (MDRD) Non-Af 99, BUN/Creatinine Ratio 18.8, Glucose 130 H, Calcium 8.4 L 08/05/23 06:24: POC Glucose 130 H Radiography Diagnostic Testing: Radiology Impression Chest X-Ray 08/04/23 13:40 IMPRESSION: No acute abnormality is seen. Electronically Signed: Jose Angel Tim MD at 14:04 EST , Physical Exam Const alert, oriented x3, no apparent distress and well nourished; Negative for average body habitus or healthy appearing Constitutional Narrative: Obese, upper middle-aged, white female, lying in bed, room is dark, patient appeals if she is not feeling well but nontoxic HEENT head/scalp atraumatic and moist oral mucous membranes HEENT Narrative: Dentition is poor, Mallampati is 3, no thrush Head and Scalp: normocephalic Resp normal respiratory effort, no retractions, no use of accessory muscles and clear to auscultation bilaterally Auscultation: Negative for rales, rhonchi or wheezes Cardio regular rate, regular rhythm, S1 normal heart sound, S2 normal heart sound, no murmurs, no rub, no gallops and no clicks GI normal to inspection, nondistended, normoactive bowel sounds and soft to palpation GI Narrative: Mild suprapubic tenderness Extremity no clubbing, cyanosis or edema Extremity Narrative: Pedal pulses are 2+ Neuro oriented x3, moves all extremities and no focal motor deficits Speech: speech normal Psych affect normal Psych Narrative: Very pleasant, eye contact is good Assessment & Plan Assessment/Plan (1) Acute UTI: (2) Nausea: (3) Leukocytosis: PLAN: Plan Acute urinary tract infection -UA consistent with infection -Culture obtained in the emergency department currently pending -Blood cultures are pending -Continue meropenem due to history of resistant organisms -Await culture results and narrow antibiotics as able -Will refer to urology with Dr. Oropeza after discharge as it appears she gets frequent UTIs Leukocytosis -Trending down with current antibiotic treatment -Continue to monitor Nausea -Likely related to the above -Should improve with antimicrobials -As needed antiemetics Headache -Patient with history of migraines -Is not on any chronic suppressive therapy -Was given 1 dose of morphine states she got some relief last evening so we will give 1 more dose -As needed NSAIDs available as well -She states Tylenol is not effective -She indicates that she often gets these when she gets UTIs COPD -Continue home inhalers GERD -Continue home PPI DM-2 -Continue basal insulin at 80 units daily -SSI -Echo is ordered -Carb controlled diet Mood disorder NOS -Continue home Seroquel -Continue home Lexapro and Continue home BuSpar -Continue home Wellbutrin Tobacco abuse -Continue cessation -Nicotine replacement therapy ordered DVT prophylax -Subcu Lovenox CODE STATUS -DNR CCA okay for short-term intubation Charges/Coding Visit Charges Inpatient E&M: 13361 Subs Hosp L2
[2023-08-05] MEDS: Glucerna Shake 120 ML LIQUID PO (08:39)
[2023-08-05] MEDS: Pantoprazole Sodium 40 MG Tablet PO (09:58)
[2023-08-05] MEDS: Enoxaparin 40 MG/0.4 ML Syringe SC (09:59)
[2023-08-05] MEDS: buPROPion (XL) 150 MG TABLET.XL PO (09:59)
[2023-08-05] MEDS: Insulin Glargine-YFGN 100 UNIT/ML Pen 80 UNIT SC (09:59)
[2023-08-05] MEDS: Escitalopram Oxalate 20 MG Tablet PO (10:46)
[2023-08-05 11:10] LABS: Bedside Glucose 176 mg/dL (74-106)
--- NOTE | 2023-08-05 11:45 | CASEMGMT ---
RN RONA Face to Face with patient for initial transition planning/care coordination assessment. RN CM introduced self and role at [facility]. Patient lying in bed, alert and oriented. Patient willing to participate in assessment and is able to answer all questions appropriately. Care providers, pharmacy, and demographics verified. Patient wishes to discharge home, denies need for home health at this time. Patient states she has no further needs or concerns at this time. CM to follow for discharge planning needs that may arise. PCP: Aarti Specialists: psychologist Abhilash Preferred Pharmacy: [facility] Jose David Insurance: [employer] Prescription Benefit: yes Living Will/HPOA: none LNOK: daughter, granddaugther Living Arrangements: Patient lives with ex and 16yo granddaugther in a mobile home with 2 steps and railing. Patient states she is independent at home. Transportation: ex [employer] DME/HHC: Patient denies DME in the home. Patient states she need a glucometer at discharge, CM to assist with obtaining script. No previous HHC or SNF. Disposition Plan: Patient to discharge home with family support and follow-up plans in place. Will monitor for ATBs at discharge. Rachel LEVINE, RN, CM
[2023-08-05] MEDS: Nystatin Powder 15gm Bottle 1 APPLIC TOPICAL ×2 (14:37→22:26)
[2023-08-05 17:12] LABS: Bedside Glucose 168 mg/dL (74-106)
[2023-08-05 23:04] LABS: Bedside Glucose 183 mg/dL (74-106)
[2023-08-06 01:20] VITALS: BP 145/63; PULSE 79
[2023-08-06 03:51] VITALS: BP 135/71; PULSE 72; RESP 14; TEMP 36.9; O2SAT 92
[2023-08-06] MEDS: Ibuprofen 400 MG Tablet PO (06:13)
[2023-08-06] MEDS: busPIRone 5 MG Tablet 20 MG PO ×2 (06:15→15:51)
[2023-08-06] MEDS: 0.9% Saline Lock 10 ML Syringe IV (06:16)
[2023-08-06] MEDS: Meropenem 1 GM in 0.9% Normal Saline (100mL MB+) 100 ML IV (06:21)
[2023-08-06 06:51] LABS: Bedside Glucose 127 mg/dL (74-106)
[2023-08-06] MEDS: Ipratropium/Albuterol Sulfate 3 ML AMPUL.NEB INHALATION ×2 (06:59→13:17)
[2023-08-06] MEDS: Budesonide Respules 0.5 MG/2 ML AMPUL.NEB. INHALATION (06:59)
[2023-08-06] MEDS: Insulin Glargine-YFGN 100 UNIT/ML Pen 80 UNIT SC (09:27)
[2023-08-06] MEDS: Enoxaparin 40 MG/0.4 ML Syringe SC (09:29)
[2023-08-06] MEDS: Escitalopram Oxalate 20 MG Tablet PO (09:30)
[2023-08-06] MEDS: Nystatin Powder 15gm Bottle 1 APPLIC TOPICAL (09:31)
[2023-08-06] MEDS: Pantoprazole Sodium 40 MG Tablet PO (09:31)
[2023-08-06] MEDS: buPROPion (XL) 150 MG TABLET.XL PO (09:32)
[2023-08-06 09:51] VITALS: BP 141/77; PULSE 78; RESP 18; TEMP 36.6; O2SAT 96
[2023-08-06 12:41] LABS: Bedside Glucose 147 mg/dL (74-106)
--- NOTE | 2023-08-06 13:14 | DS.PCM_ITS ---
Providers Date of Admission: 08/04/23 Date of Discharge: 08/06/23 Primary Care Physician: Dr. Ricci Broussard MD Reason For Visit: UTI,SUSPECT ESBL Diagnosis Discharge Diagnosis (1) Acute UTI: Status: Acute Code(s): N39.0 - Urinary tract infection, site not specified (2) Nausea: Status: Acute Code(s): R11.0 - Nausea (3) Leukocytosis: Status: Acute Code(s): D72.829 - Elevated white blood cell count, unspecified Medications at Discharge Home Medications insulin lispro 100 unit/mL subcutaneous pen (Humalog KwikPen (U-100) Insulin) See Protocol subcut TID diabetes 01/02/22 quetiapine 300 mg tablet 300 mg PO QHS mood 01/11/22 albuterol sulfate 90 mcg/actuation aerosol inhaler 90 inh inhalation Q4H PRN PRN sob 01/17/22 bupropion HCl 150 mg 24 hr tablet, extended release 150 mg PO DAILY mood 01/17/22 buspirone 10 mg tablet 20 mg PO TID mood 01/17/22 fluticasone furoate 100 mcg-vilanterol 25 mcg/dose inhalation powder (Breo Ellipta) 1 ea inhalation DAILY sob 01/17/22 omeprazole 40 mg capsule,delayed release 40 mg PO DAILY gerd 05/01/22 insulin glargine U-300 conc 300 unit/mL (3 mL) subcutaneous pen (Toujeo Max U- 300 SoloStar) 80 unit subcut DAILY diabetes 06/11/22 escitalopram oxalate 20 mg tablet 20 mg PO DAILY 08/04/23 promethazine 25 mg tablet 25 mg PO Q6H PRN nausea 08/04/23 quetiapine 25 mg tablet 25 mg PO TID 08/04/23 fosfomycin tromethamine 3 gram oral packet 1 packet PO X1 1 day #1 ea 08/06/23 Hospital Course Operations None Procedures EKG and - (Chest x-ray) Summary of Care Provided Minutes Spent on Discharge: 37 Hospital Course: Ms. Valero is a 68-year-old white female who presented the emergency department [facility] on 08/04/2023 complaining of chills, urinary burning, and urinary frequency. She evidently had been having a 2 weeks of ongoing urinary symptoms and had been slowly getting work. On presentation she was also feeling achy and nauseous. She additionally complained of 2 weeks of increased cough and sputum production with some slight shortness of breath and does have a history of COPD at home. She has been compliant with her inhalers. Vital signs on presentation were unremarkable other than her blood pressure was elevated 185/90. UA was consistent with infection. Previous urine cultures had been noted and she does have a history of ESBL producing organisms. She was noted to have allergies to penicillins and sulfa. She was admitted to telemetry floor and started on meropenem after urine cultures were sent. She did not meet sepsis criteria on presentation and was gently hydrated with IV fluids. By day 2 of her hospital course she was feeling improved as her suprapubic pain had decreased in intensity and by the third day of her hospitalization suprapubic pain had resolved. She was still experiencing some headache but has a history of migraines. Urine cultures demonstrated ESBL producing E. coli. This was sensitive to Macrobid and fosfomycin. After literature review it appears the fosfomycin has better penetration and resolution of UTI with ESBL producing organism so we discharged her with 1 more day of fosfomycin. Since she does get chronic recurrent UTIs I have recommended her to follow-up with Dr. Oropeza from urology for further evaluation with regards to her frequent and recurrent urinary tract infections. Prescription for the fosfomycin was faxed to local pharmacy and was she was instructed to take 1 tablet tomorrow and that would complete treatment. I have asked her to call the urology office tomorrow and set up an appointment to be seen in the next 1 to 2 weeks. She should also follow-up with her primary care physician within the next month. She was discharged home in stable condition on 08/06/2023. Discharge diagnoses: Acute ESBL E. coli UTI Leukocytosis-resolved Nausea-resolved Headache COPD GERD DM-2 Mood disorder NOS Tobacco abuse Physical Exam Const alert, oriented x3, no apparent distress and well nourished; Negative for aver age body habitus or healthy appearing Constitutional Narrative: Obese, upper middle-aged, white female, lying in bed, room is dark, but mood and general appearance appears much improved General Appearance: cooperative, comfortable, well kempt and well developed Orientation / Consciousness: awake, oriented to person, oriented to place and oriented to time Exam Limitations: no limitations Nutritional Appearance: obese HEENT normocephalic, head/scalp atraumatic, hearing grossly normal bilaterally and moist oral mucous membranes HEENT Narrative: Mallampati 3, no thrush Eyes PERRL, EOMs intact bilaterally and conjunctivae normal Eyes Narrative: No scleral icterus Neck no lymphadenopathy and supple Neck Narrative: Neck is short and thick, trachea midline, no thyroid enlargement Resp normal respiratory effort, no retractions, no use of accessory muscles and clear to auscultation bilaterally Auscultation: Negative for rales, rhonchi or wheezes Cardio regular rate, regular rhythm, S1 normal heart sound, S2 normal heart sound, no murmurs, no rub, no gallops and no clicks GI normal to inspection, nondistended, normoactive bowel sounds, soft to palpation and non-tender GI Narrative: Suprapubic tenderness is resolved Extremity no clubbing, cyanosis or edema Extremity Narrative: Pedal pulses are 2+ Skin no rashes or lesions noted, no wounds, skin turgor normal and no jaundice Neuro oriented x3, moves all extremities and no focal motor deficits Speech: speech normal Psych affect normal Psych Narrative: Very pleasant, eye contact is good Weight / BMI Weight Weight: 104.5 kg Body Mass Index (BMI) 36.1 ABG / Lab / Microbiology Data 08/05/23 05:45 08/05/23 05:45 Laboratory: Laboratory Results - last 24 hr 08/05/23 16:31: POC Glucose 168 H 08/05/23 22:18: POC Glucose 183 H 08/06/23 06:20: POC Glucose 127 H 08/06/23 11:53: POC Glucose 147 H Microbiology: Microbiology 08/04/23 13:15 Urine, Clean Catch Urine Culture - Preliminary ESBL Escherichia coli D/C Instructions Discharge Diet: Low fat / Low cholesterol and 1800 Calorie Control Diet Discharge Activity: Return to Normal Activity Meaningful Use Info Meaningful Use Diagnoses (Choose all that apply): None applicable Discharge Plan Admission Admit Date/Time: 08/04/23 15:06 Primary Reason for Your Visit: Urinary tract infection Attending Provider: Sho Yi Primary Care Provider: Ricci Broussard Consulting Providers: Leeanne Barron Discharge Orders/Prescriptions Prescriptions: New fosfomycin tromethamine 3 gram packet 1 packet PO X1 1 Days Qty: 1 0RF Continued quetiapine 300 mg tablet 300 mg PO QHS insulin lispro [Humalog KwikPen Insulin] 100 unit/mL Insulin Pen See Protocol SUBCUT TID Protocol: 1. Sliding Scale Insulin Low Dosing Condition: 150-224 mg/dl = 1 unit Condition: 225-299 mg/dl = 2 units Condition: 300-374 mg/dl = 3 units Condition: 375-499 mg/dl = 4 units Condition: Greater than 449 call physician Protocol Text: - Use for Total Daily Dose of Insulin 15-27 units - Thin, elderly, renal patients LOW DOSING ALGORITHM Rx Instructions: plus sliding scale buspirone 10 mg tablet 20 mg PO TID albuterol sulfate 90 mcg/actuation HFA aerosol inhaler 90 inh INHALATION Q4H PRN PRN (Reason: sob) Patient Comments: TAKE 2 PUFFS BY MOUTH EVERY 4 HOURS NEEDED fluticasone furoate-vilanterol [Breo Ellipta] 100-25 mcg/dose blister with device 1 ea INHALATION DAILY Patient Comments: INHALE 1 INHALATION INSTRUCTED ONCE DAILY. bupropion HCl 150 mg tablet extended release 24 hr 150 mg PO DAILY Patient Comments: TAKE 1 TABLET BY MOUTH EVERY MORNING Toujeo Max U-300 SoloStar 300 unit/mL (3 mL) insulin pen 80 unit subcut DAILY omeprazole 40 mg Capsule,Delayed Release(Dr/Ec) 40 mg PO DAILY escitalopram oxalate 20 mg tablet 20 mg PO DAILY quetiapine 25 mg tablet 25 mg PO TID promethazine 25 mg tablet 25 mg PO Q6H PRN (Reason: nausea) Patient Comments: TAKE 1 TABLET BY MOUTH EVERY 6 HOURS NEEDED FOR NAUSEA AND VOMITING Referrals / Follow Up: Meredith Oropeza MD [Med Staff - Active Staff] - Within 2 Weeks (Frequent UTIs) Ricci Broussard MD [Primary Care Provider] - Within 1 Month Disposition Disposition (needs filled in before D/C Order can be placed): Home, Self Care Charges/Coding Visit Charges Inpatient E&M: 40036 Disch Hosp >30min
[2023-08-06 13:18] VITALS: PULSE 82; RESP 17
[2023-08-06] MEDS: FOSFOMYCIN TROMETHAMINE 3 GM PACKET PO (15:52)
== END 2023-08-06 16:11 | disposition home or self-care (01) | DRG 690 ==
LOC: ED 15:55 → PCU 19:01
PROVIDERS: Physician Assistant; Admitting Provider Internal Medicine; Emergency Provider Emergency Medicine; PCP Family Medicine; Visit Provider Internal Medicine
DX: N39.0 Urinary tract infection, site not specified (principal); Z16.12 Extended spectrum beta lactamase (ESBL) resistance; B96.20 Unspecified Escherichia coli [E. coli] as the cause of diseases classified elsewhere; E11.65 Type 2 diabetes mellitus with hyperglycemia; E78.00 Pure hypercholesterolemia, unspecified; F17.210 Nicotine dependence, cigarettes, uncomplicated; J44.9 Chronic obstructive pulmonary disease, unspecified; Z79.4 Long term (current) use of insulin; F32.A Depression, unspecified; I10 Essential (primary) hypertension; F41.9 Anxiety disorder, unspecified; K21.9 Gastro-esophageal reflux disease without esophagitis; R51.9 Headache, unspecified; Z90.49 Acquired absence of other specified parts of digestive tract; Z79.51 Long term (current) use of inhaled steroids; Z79.899 Other long term (current) drug therapy; Z87.440 Personal history of urinary (tract) infections
CPT/HCPCS: 36415; 71046; 80048; 81001; 82962; 85025; 87040; 87077; 87086; 87088; 87186; 94640; 97802; 99284; J2185; J7030; A4216; J2405

== ENCOUNTER 2025-05-15 00:24 | Emergency (ER) | payer MEDICARE, MEDICAID, SELFPAY ==
[2025-05-15] VITALS (7 sets, daily range): BP systolic 158–178; BP diastolic 70–88; PULSE 88–93; RESP 16–18; TEMP 36.8; O2SAT 97–100; BMI 37.2
--- NOTE | 2025-05-15 00:53 | CT_ITS ---
PROCEDURE: BRAIN/HEAD WITHOUT CONTRAST 05/14/2025 REASON FOR EXAM: FALL TECHNIQUE: Procedure Code: CTBR Modality: CT Procedure: BRAIN/HEAD WITHOUT CONTRAST Coronal and Sagittal reconstruction series were provided. One or more dose reduction techniques were used (e.g., Automated exposure control, adjustment of the mA and/or kV according to patient size, use of iterative reconstruction technique. COMPARISON: 04/30/2022 FINDINGS: There is no extra-axial or intra-axial intracranial hemorrhage. No mass effect or midline shift is seen. Generalized intracranial volume loss and findings compatible with chronic microvascular white matter ischemia. There is normal [place]-white matter differentiation. The posterior fossa is grossly unremarkable. The skull is unremarkable. Visualized paranasal sinuses are clear. The mastoid air cells show normal translucency. CT/Brain/Head without Contrast IMPRESSION: 1. No intracranial hemorrhage. No mass effect or midline shift. 2. Chronic involutional and ischemic gliotic white matter changes. Reading Location: [id number]
--- NOTE | 2025-05-15 00:53 | CT_ITS ---
PROCEDURE: CHEST WITHOUT CONTRAST 05/14/2025 REASON FOR EXAM: ? LEFT RIB FX TECHNIQUE: Chest CT without contrast. Coronal and Sagittal reconstruction series were provided. One or more dose reduction techniques were used (e.g., Automated exposure control, adjustment of the mA and/or kV according to patient size, use of iterative reconstruction technique COMPARISON: Chest x-ray 08/04/2023 FINDINGS: Hardware: None. Lymph nodes: No enlarged mediastinal, hilar, or axillary lymph nodes. Heart and Vasculature: Not enlarged. No pericardial effusion. Thoracic aorta and pulmonary arteries have normal contours; noncontrast technique limits evaluation. Lungs and Airways: Bilateral dependent atelectasis. No definite focal consolidation or significant pulmonary mass. Airways are patent. Pleura: No pneumothorax or pleural effusion. Upper Abdomen: Left renal cyst measures 3.5 x 3.0 cm. Mild atrophy of the pancreas. Visualized upper abdomen otherwise unremarkable. Bones: Degenerative changes and kyphosis of the thoracic spine. CT/Chest without Contrast IMPRESSION: 1. No acute findings in the chest as imaged. 2. No rib fractures identified. 3. Left renal cyst measures 3.5 cm. Reading Location: [facility]
[2025-05-15] MEDS: 0.9% Normal Saline (1000mL) 1,000 ML 999 ML IV (00:59)
[2025-05-15 01:18] LABS: Hematocrit 40.2 % (37-47); Hemoglobin 13.4 g/dL (12.0-15.0); Immature Granulocytes Count 0.110 X10^3/uL (0.0-0.0); Mean Corp Hgb Conc 33.3 g/dL (32-36); Mean Corpuscular Volume 92.2 fL (81-99); Mean Platelet Vol. 9.7 fl (6.2-12.0); NRBC Flagged by Analyzer 0 % (0-5); Platelet Count 285 K/mm3 (150-450); RBC Distribution Width CV 13.2 % (11.6-14.6); RBC Distribution Width SD 45.2 fl (35.1-43.9); Red Blood Count 4.36 M/mm3 (4.2-5.4); White Blood Count 15.5 K/mm3 (4.4-11.0)
[2025-05-15 01:35] LABS: Mucous, Urine 0 SEEN /hpf (<or=2+); Red Blood Cells-Urine 0 SEEN /hpf (0-5)
[2025-05-15 01:37] LABS: Color, Urine Yellow (Yellow); Glucose, Dipstick 1000 mg/dl (Normal); Ketone-Dipstick Negative (Negative); Leukocyte Esterase-Dipstick 25 /ul (Negative); Nitrite-Dipstick Negative (Negative); Occult Blood-Urine 10 /ul (Negative); Protein-Dipstick Negative (Negative); Specific Gravity, Urine 1.010 (1.002-1.030); Urine Bilirubin Dipstick Negative (Negative)
[2025-05-15 01:44] LABS: Magnesium 2.0 mg/dL (1.5-2.2)
[2025-05-15 01:44] LABS: Squamous Epithelial Cells - UA 0-5 SEEN /hpf (5-10)
[2025-05-15 01:49] LABS: Anion Gap 13 (5-15); BUN 7 mg/dL (4-19); BUN/Creat Ratio 10.0 RATIO (10-20); Calcium,Total 9.2 mg/dL (7.6-11.0); Carbon Dioxide 23.7 mmol/L (21.0-32.0); Chloride 105 mmol/L (98-108); Estimated Creatinine Clearance 85.13 ml/min (50-250); Glucose 163 mg/dL (70-99); Potassium 3.7 mmol/L (3.3-5.1)
--- NOTE | 2025-05-15 02:11 | EDS_ITS ---
HPI History of Present Illness Chief Complaint: Weakness Informant: patient Narrative Narrative: Patient is a 70-year-old female with past medical history of insulin-dependent diabetes hypertension hyperlipidemia COPD as well as anxiety and depression. She states she has been dealing with a recurrent UTI through her family doctor. She states she has taken multiple medications without symptom resolution. She states that today she is felt just generally weak and and this weakness has caused her to fall 4 times. She denies striking her head or any loss of consciousness or history of bleeding disorder or blood thinner use. She states that she tried to get up this evening and was too weak to do so and therefore with the worsening symptoms was brought to the hospital for evaluation [facility] Medical History Wears dentures Wears glasses Post-menopausal Anxiety History of steroid therapy Insulin dependent diabetes mellitus Arthritis High cholesterol Migraine headache Injury of head and neck Gastric reflux Smoker History of stress test Hypertension Cardiology follow-up encounter GERD (gastroesophageal reflux disease) Smoker Urinary tract infection UTI due to extended-spectrum beta lactamase (ESBL) producing Escherichia coli Secondary polycythemia Gastritis Panic disorder with agoraphobia Depression Diarrhea Leukocytosis Essential (primary) hypertension Frequent headaches Urinary incontinence Diabetes Gastroparesis Type 2 diabetes mellitus without complications Vision problem GI problem COPD (chronic obstructive pulmonary disease) Diabetes type 2, controlled Chronic bronchitis Chronic UTI Anxiety and depression Seasonal allergies Tobacco abuse COPD (chronic obstructive pulmonary disease) Fibromyalgia Home Medications ?Medication ?Instructions ?Recorded ?Last Taken ?Type insulin lispro 100 unit/mL See Protocol subcut TID serenity betes 01/02/22 08/03/23 H istory subcutaneous pen (Humalog KwikPen (U-100) Insulin) quetiapine 300 mg tablet 300 mg PO QHS mood 01/11/22 08/03/23 History albuterol sulfate 90 mcg/actuation 90 inh inhalation Q 4H PRN PRN sob 01/17/22 01/17/22 History aerosol inhaler bupropion HCl 150 mg 24 hr tablet, 150 mg PO DAILY moo d 01/17/22 08/04/23 History extended release buspirone 10 mg tablet 20 mg PO TID mood 01/17/22 1 10/04/22 History fluticasone furoate 100 1 ea inhalation DAILY sob 08/04/23 History mcg-vilanterol 25 mcg/dose inhalation powder (Breo Ellipta) omeprazole 40 mg capsule,delayed 40 mg PO DAILY gerd 0 05/01/22 08/04/23 History release insulin glargine U-300 conc 300 80 unit subcut DAILY d iabetes 06/11/22 08/03/23 History unit/mL (3 mL) subcutaneous pen (Toujeo Max U-300 SoloStar) escitalopram oxalate 20 mg tablet 20 mg PO DAILY menta l [facility] 08/04/23 08/04/23 History promethazine 25 mg tablet 25 mg PO Q6H PRN nausea 07/25 09/16 Unknown History quetiapine 25 mg tablet 25 mg PO TID mental health 1 10/05/22 08/04/23 History Allergy/AdvReac Type Severity Reaction Status Date / Time Penicillins Allergy Hives Verified 05/15/25 00:25 Sulfa (Sulfonamide Allergy Hives Verified 05/15/25 00:25 Antibiotics) varenicline (From Chantix) Allergy Other Verified 05/15/25 00:25 Family History Brother Diabetes Hypertension Surgical History History of cardiac catheterization History of appendectomy H/O tubal ligation S/P ORIF (open reduction internal fixation) fracture bladder sling S/P complete hysterectomy Hx of cholecystectomy Social History Smoking Status: Current every day smoker tobacco type: cigarettes second hand exposure: Yes alcohol intake: never substance use type: does not use ROS ROS ED Constitutional Constitutional ED: Reports other Details: Positive fatigue ; Denies chills or fever(s) Eyes Eyes: Denies change in vision ENT ENT ED: Denies rhinorrhea or sore throat Cardiovascular Cardiovascular: Reports other Details: Negative syncope ; Denies chest pain, palpitations or racing heartbeat Respiratory/Chest Respiratory/Chest: Denies cough or dyspnea Gastrointestinal Gastrointestinal: Denies abdominal pain, diarrhea, nausea or vomiting Genitourinary Genitourinary ED: Denies dysuria or hematuria Musculoskeletal Musculoskeletal: Denies back pain, myalgias or neck pain Integumentary Denies Abrasions or rash Neurologic Neurologic: Reports weakness; Denies headache(s) Psychiatric Psychiatric: Reports anxiety and depression Hematologic/Lymphatic Hematologic/Lymphatic: Denies easy bleeding or easy bruising EXAM Physical Exam Const Vital Signs: 05/15/25 00:25 05/15/25 00:29 05/15/25 00:29 Temperature 98.2 F 98.2 F Temperature Source Oral Oral Pulse Rate 92 93 Respiratory Rate 18 18 Respiratory Effort Normal Non-Labored Respiratory Depth Respiratory Pattern Normal Blood Pressure 158/70 H 158/70 H Blood Pressure Mean 99 99 Pulse Ox 99 100 Oxygen Delivery Method Room Air Room Air 05/15/25 00:29 05/15/25 01:28 05/15/25 02:00 Temperature 98.2 F 98.2 F Temperature Source Oral Oral Pulse Rate 93 89 Respiratory Rate 18 18 Respiratory Effort Normal Non-Labored Respiratory Depth Normal Respiratory Pattern Normal Blood Pressure 164/74 H 178/76 H Blood Pressure Mean 104 110 Pulse Ox 97 100 100 Oxygen Delivery Method Room Air Room Air 05/15/25 03:00 Temperature 98.2 F Temperature Source Oral Pulse Rate 88 Respiratory Rate 16 Respiratory Effort Respiratory Depth Respiratory Pattern Blood Pressure 174/88 H Blood Pressure Mean 116 Pulse Ox 100 Oxygen Delivery Method Room Air Positive well nourished, well developed and obese General Appearance ED: well developed; Negative for pallor Nutritional Appearance: obese HEENT Reports dry mucous membranes HEENT Narrative: Normocephalic atraumatic No signs of depressed or basilar skull fracture No tongue or lip swelling no oral lesions no airway edema or compromise; no secondary findings in the posterior pharynx to suggest infection Mucous membranes are dry and tacky however Mouth ED: Yes dry mucous membranes Mouth: dry mucous membranes Eyes PERRL and EOMs intact bilaterally General Eye ED: Negative for scleral icterus Neck supple Neck Narrative: No nuchal rigidity or meningeal signs No bony deformity or step-off of the cervical spine; no midline pain with palpation. Patient is able to move her neck in all directions without pain Chest Wall Chest Narrative: No bony deformity or crepitance noted with palpation of the chest wall There is reproducible anterior lateral left chest wall pain along rib regions 10-12 without overlying ecchymosis or abrasions. Resp normal respiratory effort Resp Narrative: Breath sounds are diminished throughout with faint rhonchi and expiratory wheeze in the bilateral lower lobes consistent with history of COPD; no signs of respiratory distress noted Cardio regular rate and regular rhythm Rate: other Other Details: Radial and carotid pulses are equal and symmetric GI normal to inspection, nondistended, normoactive bowel sounds, non-tender, non- distended and no masses GI Narrative: Soft nontender and nondistended with normal active bowel sounds. No voluntary guarding or rigidity or pulsatile mass. No peritoneal signs Auscultation: normoactive bowel sounds Palpation: soft Back/Spine no CVA tenderness Back/Spine Narrative: No bony deformity or step-off of the thoracic or lumbar spine; no midline tenderness to palpation Extremity normal to inspection Extremity Narrative: Pelvis is stable there is no shortening or external rotation of either lower extremity No signs of long bone injury such as bony deformity or joint effusion Compartments are soft and compressible going against compartment syndrome Neuro oriented x3 and CN's II-XII intact bilaterally Neuro Narrative: GCS of 15 Cranial nerves II through XII are grossly intact without focal neurologic deficit No pronator drift no dysmetria no truncal ataxia NIH stroke scale score of 0 Sensorium / Orientation: alert Psych Psych Narrative: Patient has a depressed/flat affect Mood & Affect: depressed Skin no rashes or lesions noted and no wounds General Skin Exam: Negative for jaundice or pallor MDM MDM MDM Narrative Medical decision making narrative: Patient arrived to the ER hypertensive but has a past medical history of this and otherwise vitals are stable. She reported feeling generally weak today causing her to fall. She denied any point striking her head or having loss of consciousness but she did admit to left-sided rib pain. In order to ensure that there is no sign of traumatic subarachnoid or subdural hemorrhage or skull fracture associated with her falls or rib fracture versus pneumothorax or pulm onary contusion I did elect to perform CTs of the head and chest. Imaging studies were negative for acute trauma or infection. As patient also reports that she has been dealing with recurrent UTIs there is concern that she could be progressing to urosepsis. White count is elevated at 15.5 and there is elevation in neutrophil count at 10.8 however there are no signs of acute kidney injury clinically significant Tammy abnormality or thyroid disorder. The urine sample shows +4 bacteria but there are no white cells and it is nitrate negative. Therefore this is most likely colonization or normal dante and I do not feel the need for emergent antibiotics especially as vitals are stable. In order to ensure that the patient does not have an atypical presentation for repeat urinary tract infection I will send it for culture. The patient was ambulated in the ER and can walk with a steady gait. Therefore at this time as there is no signs of urosepsis acute kidney injury or underlying trauma from the reported falls and the patient is able to ambulate with a steady gait I do not feel the need for admission or further intervention in the ER and she is otherwise safe for discharge History & Record Review Discussion w/independent historian: Patient Lab Data Attestation: I reviewed the patient's lab results. Labs: Laboratory Results - last 24 hr 05/15/25 05/15/25 00:31 01:20 WBC 15.5 H RBC 4.36 Hgb 13.4 Hct 40.2 MCV 92.2 MCH 30.7 MCHC 33.3 RDW Std Deviation 45.2 H RDW Coeff of Jona 13.2 Plt Count 285 MPV 9.7 Immature Gran % (Auto) 0.700 Neut % (Auto) 69.9 Lymph % (Auto) 21.1 Larue % (Auto) 7.4 Eos % (Auto) 0.5 Baso % (Auto) 0.4 Absolute Neuts (auto) 10.8 H Absolute Lymphs (auto) 3.26 Nucleated RBC % 0 Sodium 142 Potassium 3.7 Chloride 105 Carbon Dioxide 23.7 Anion Gap 13 BUN 7 Creatinine 0.68 L Estim Creat Clear Calc 85.13 Est GFR (MDRD) Non-Af 95 BUN/Creatinine Ratio 10.0 Glucose 163 H Calcium 9.2 Magnesium 2.0 TSH 0.570 Urine Color Yellow Urine Clarity Sl. Cloudy Urine pH 6.0 Ur Specific [place] 1.010 Urine Protein Negative Urine Glucose (UA) 1000 H Urine Ketones Negative Urine Occult Blood 10 H Urine Nitrite Negative Urine Bilirubin Negative Urine Urobilinogen Normal Ur Leukocyte Esterase 25 H Urine RBC 0 SEEN Urine WBC 0-5 SEEN Ur Squamous Epith Cells 0-5 SEEN Urine Bacteria 4+ Urine Mucus 0 SEEN Radiography Diagnostic Testing: Clinical Impression(s) from Imaging Studies Brain CT 05/15/25 00:53 IMPRESSION: 1. No intracranial hemorrhage. No mass effect or midline shift. 2. Chronic involutional and ischemic gliotic white matter changes. Reading Location: [facility] Chest CT 05/15/25 00:53 IMPRESSION: 1. No acute findings in the chest as imaged. 2. No rib fractures identified. 3. Left renal cyst measures 3.5 cm. Reading Location: [facility] Discharge Plan Triage Chief Complaint: Weakness Other Complaint: Fall Complaint ED Provider: Bhavin Quinn Dx/Rx/DC Orders Clinical Impression: Generalized weakness, Contusion of rib on left side, Diabetes mellitus type 2, insulin dependent, COPD (chronic obstructive pulmonary disease), Hypertension Instructions: ED Bruise, Rib, ED Weakness Uncertain Cause Prescriptions: No Action quetiapine 300 mg tablet 300 mg PO QHS insulin lispro [Humalog KwikPen Insulin] 100 unit/mL Insulin Pen See Protocol SUBCUT TID Protocol: 1. Sliding Scale Insulin Low Dosing Condition: 150-224 mg/dl = 1 unit Condition: 225-299 mg/dl = 2 units Condition: 300-374 mg/dl = 3 units Condition: 375-499 mg/dl = 4 units Condition: Greater than 449 call physician Protocol Text: - Use for Total Daily Dose of Insulin 15-27 units - Thin, elderly, renal patients LOW DOSING ALGORITHM Rx Instructions: plus sliding scale buspirone 10 mg tablet 20 mg PO TID albuterol sulfate 90 mcg/actuation HFA aerosol inhaler 90 inh INHALATION Q4H PRN PRN (Reason: sob) Patient Comments: TAKE 2 PUFFS BY MOUTH EVERY 4 HOURS NEEDED fluticasone furoate-vilanterol [Breo Ellipta] 100-25 mcg/dose blister with device 1 ea INHALATION DAILY Patient Comments: INHALE 1 INHALATION INSTRUCTED ONCE DAILY. bupropion HCl 150 mg tablet extended release 24 hr 150 mg PO DAILY Patient Comments: TAKE 1 TABLET BY MOUTH EVERY MORNING Toujeo Max U-300 SoloStar 300 unit/mL (3 mL) insulin pen 80 unit subcut DAILY omeprazole 40 mg Capsule,Delayed Release(Dr/Ec) 40 mg PO DAILY escitalopram oxalate 20 mg tablet 20 mg PO DAILY quetiapine 25 mg tablet 25 mg PO TID promethazine 25 mg tablet 25 mg PO Q6H PRN (Reason: nausea) Patient Comments: TAKE 1 TABLET BY MOUTH EVERY 6 HOURS NEEDED FOR NAUSEA AND VOMITING Primary Care Provider: Ricci Broussard Referrals: Ricci Broussard MD [Primary Care Provider, Medical] Activity Restrictions/Additional Instructions: The CT of your head revealed no acute skull fracture or brain bleed. Your chest CT revealed no rib fracture pneumothorax/hole in the lung or signs of infection. Your urine sample has bacteria but no associated white blood cells or nitrites and therefore this is most likely normal dante/colonization and not a true UTI. Your urine will be sent for culture however to ensure there is no infection. P lease continue all of your home medications as directed by your doctor and return to the ER should you have any further concerns. It will take on average 1 to 2 weeks for the rib contusion to heal and therefore you may have pain during this time Print Language: Setswana Disposition Disposition: Home, Self Care
== END 2025-05-15 04:34 | disposition home or self-care (01) ==
PROVIDERS: Emergency Provider Emergency Medicine; PCP Family Medicine; Visit Provider Emergency Medicine
DX: R53.1 Weakness (principal); J44.9 Chronic obstructive pulmonary disease, unspecified; Z79.4 Long term (current) use of insulin; E11.9 Type 2 diabetes mellitus without complications; S20.212A Contusion of left front wall of thorax, initial encounter; I10 Essential (primary) hypertension; E78.00 Pure hypercholesterolemia, unspecified; Z90.710 Acquired absence of both cervix and uterus; B96.20 Unspecified Escherichia coli [E. coli] as the cause of diseases classified elsewhere; F32.A Depression, unspecified; Z79.899 Other long term (current) drug therapy; Z79.51 Long term (current) use of inhaled steroids; K21.9 Gastro-esophageal reflux disease without esophagitis; Z90.49 Acquired absence of other specified parts of digestive tract; Z98.51 Tubal ligation status; F17.210 Nicotine dependence, cigarettes, uncomplicated; W18.30XA Fall on same level, unspecified, initial encounter
CPT/HCPCS: 51702; 70450; 71250; 80048; 81001; 83735; 84443; 85025; 87077; 87086; 87088; 87186; 96361; 96374; 99285; A4216

== ENCOUNTER 2025-07-20 17:46 | Emergency (ER) | payer MEDICARE, MEDICAID, SELFPAY ==
[2025-07-20 17:47] VITALS: BP 156/76
[2025-07-20 17:48] VITALS: PULSE 104; RESP 18; TEMP 37; O2SAT 95; BMI 35.7
--- NOTE | 2025-07-20 18:11 | CT_ITS ---
EXAM: CT BRAIN/HEAD; SPINE CERVICAL WITHOUT CONTRAST CLINICAL HISTORY: FALL, HIT HEAD; FALL COMPARISON: 05/15/2025 TECHNIQUE: Noncontrast CT images of the head and cervical spine with multiplanar reconstructions. Dose reduction techniques were used including intermediate exposure control (AEC),iterative reconstruction technique, and/or mA and/or KV dose adjustments based on patient's size. FINDINGS: HEAD: No acute intracranial hemorrhage, extra-axial collection, mass effect or evidence of acute infarct. Moderate generalized brain parenchymal volume loss, and mild chronic microangiopathic changes. Unremarkable orbits. Intact skull base and calvarium. Clear paranasal sinuses and mastoids. CERVICAL SPINE: No acute fracture or subluxation. Positional and/or degenerative straightening of the cervical lordosis. Multilevel spondylotic changes with varying degrees of disc space narrowing, multiple small Schmorl's nodes and/or subchondral cysts, anterior osteophytosis, uncovertebral spurring and hypertrophic facet arthropathy. No prevertebral soft tissue swelling. Clear visualized lung apices. CT/Spine Cervical without Contras IMPRESSION: No acute traumatic findings. Chronic/degenerative changes as described. Reading Location: [id number]
--- NOTE | 2025-07-20 18:11 | CT_ITS ---
EXAM: CT BRAIN/HEAD; SPINE CERVICAL WITHOUT CONTRAST CLINICAL HISTORY: FALL, HIT HEAD; FALL COMPARISON: 05/15/2025 TECHNIQUE: Noncontrast CT images of the head and cervical spine with multiplanar reconstructions. Dose reduction techniques were used including intermediate exposure control (AEC),iterative reconstruction technique, and/or mA and/or KV dose adjustments based on patient's size. FINDINGS: HEAD: No acute intracranial hemorrhage, extra-axial collection, mass effect or evidence of acute infarct. Moderate generalized brain parenchymal volume loss, and mild chronic microangiopathic changes. Unremarkable orbits. Intact skull base and calvarium. Clear paranasal sinuses and mastoids. CERVICAL SPINE: No acute fracture or subluxation. Positional and/or degenerative straightening of the cervical lordosis. Multilevel spondylotic changes with varying degrees of disc space narrowing, multiple small Schmorl's nodes and/or subchondral cysts, anterior osteophytosis, uncovertebral spurring and hypertrophic facet arthropathy. No prevertebral soft tissue swelling. Clear visualized lung apices. CT/Brain/Head without Contrast IMPRESSION: No acute traumatic findings. Chronic/degenerative changes as described. Reading Location: [id number]
--- NOTE | 2025-07-20 18:17 | ED.VIS.LOWEX ---
HPI History of Present Illness Chief Complaint: Lower Extremity Injury Narrative Narrative: Patient is a 62-year-old female presenting to the emergency department after a fall with right ankle pain. Patient has a history of chronic back pain, diabetes. She states that she was wearing her house shoes and is unsure if this is what caused her to fall but while walking from the kitchen to the next room she fell. She is unsure if she hit her head. Denies loss of consciousness. Denies any new neck or back pain from baseline. Denies any chest pain, shortness of breath, abdominal pain, lightheadedness, dizziness or palpitations before or after the fall. She is not on any oral anticoagulation. She reports pain in her right ankle and lower leg. Denies any pain in her arms or left leg. Denies any hip pain. She was given 25 mcg of fentanyl prior to arrival by EMS. [facility] Medical History History of ESBL E. coli infection Wears dentures Wears glasses Post-menopausal Anxiety History of steroid therapy Insulin dependent diabetes mellitus Arthritis High cholesterol Migraine headache Injury of head and neck Gastric reflux Smoker History of stress test Hypertension Cardiology follow-up encounter GERD (gastroesophageal reflux disease) Smoker Urinary tract infection UTI due to extended-spectrum beta lactamase (ESBL) producing Escherichia coli Secondary polycythemia Gastritis Panic disorder with agoraphobia Depression Diarrhea Leukocytosis Essential (primary) hypertension Frequent headaches Urinary incontinence Diabetes Gastroparesis Type 2 diabetes mellitus without complications Vision problem GI problem COPD (chronic obstructive pulmonary disease) Diabetes type 2, controlled Chronic bronchitis Chronic UTI Anxiety and depression Seasonal allergies Tobacco abuse COPD (chronic obstructive pulmonary disease) Fibromyalgia Home Medications ?Medication ?Instructions ?Recorded ?Last Taken ?Type insulin lispro 100 unit/mL See Protocol subcut TID diabetes 01/02/22 07/20/25 History subcutaneous pen (Humalog KwikPen (U-100) Insulin) quetiapine 300 mg tablet 300 mg PO QHS mood 01/11/22 07/19/25 History albuterol sulfate 90 mcg/actuation 90 inh inhalation Q4H PRN PRN sob 01/17/22 07/20/25 History aerosol inhaler bupropion HCl 150 mg 24 hr tablet, 150 mg PO DAILY mood 01/17/22 07/19/25 History extended release buspirone 10 mg tablet 20 mg PO TID mood 01/17/22 07/20/25 History omeprazole 40 mg capsule,delayed 40 mg PO DAILY gerd 05/01/22 07/20/25 History release insulin glargine U-300 conc 300 80 unit subcut DAILY diabetes 06/11/22 07/20/25 History unit/mL (3 mL) subcutaneous pen (Toujeo Max U-300 SoloStar) promethazine 25 mg tablet 25 mg PO Q6H PRN nausea 08/04/23 07/20/25 History quetiapine 25 mg tablet 25 mg PO TID PRN mental health 08/04/23 07/19/25 History albuterol sulfate 2.5 mg/3 mL 2.5 mg inhalation Q8H PRN 07/20/25 Unknown History (0.083 %) solution for nebulization shortness of breath or wheezing bupropion HCl 300 mg 24 hr tablet, 300 mg PO DAILY 07/20/25 07/19/25 History extended release fluticasone fur. 200 mcg-umeclid 1 ea inhalation DAILY 07/20/25 07/20/25 History 62.5 mcg-vilant 25 mcg inhalat.powder (Trelegy Ellipta) gabapentin 400 mg capsule 400 mg PO TID 07/20/25 07/20/25 History hydrocodone-acetaminophen 5-325mg 1 tab PO Q6H PRN PRN Pain 3 days 07/20/25 Unknown Rx 5mg-325mg #10 TABLETS insulin glargine U-300 conc 300 80 unit subcut DAILY 07/20/25 Unknown History unit/mL (1.5 mL) subcutaneous pen (Toujeo SoloStar U-300 Insulin) nystatin 100,000 unit/gram topical 1 applic topical DAILY 07/20/25 07/19/25 History powder Allergy/AdvReac Type Severity Reaction Status Date / Time Penicillins Allergy Hives Verified 07/20/25 17:52 Sulfa (Sulfonamide Allergy Hives Verified 07/20/25 17:52 Antibiotics) varenicline (From Chantix) Allergy Other Verified 07/20/25 17:52 Family History Brother Diabetes Hypertension Surgical History History of cardiac catheterization History of appendectomy H/O tubal ligation S/P ORIF (open reduction internal fixation) fracture bladder sling S/P complete hysterectomy Hx of cholecystectomy Social History Smoking Status: Current every day smoker tobacco type: cigarettes second hand exposure: Yes alcohol intake: never substance use type: does not use EXAM Physical Exam Narrative Exam Narrative: Vital signs: Reviewed General: Alert and oriented x 3. No acute distress HEENT: Head is normocephalic and atraumatic. No cephalhematoma, lacerations or abrasions to the scalp or face. Sinuses nontender, pupils equal round and reactive. Nares are patent. Oropharynx and throat exams normal. Neck: Supple without lymphadenopathy nontender. No midline cervical spinal tenderness to palpation. No step-offs or deformities. Cardiovascular: Regular rate and rhythm, no murmurs. No rubs or gallops. Normal S1 and S2 Respiratory: Clear to auscultation bilaterally. No wheezes, rales, rhonchi Chest: Chest wall is atraumatic and nontender to palpation. No ecchymosis, crepitus or erythema. Abdominal: Soft and nontender. Normal bowel sounds. No guarding or rebound. Nonsurgical abdomen Extremities: Hips are stable and nontender to palpation. No midline thoracic or lumbar spinal tenderness to palpation. No step-offs or deformities. There is mild tenderness to palpation of the right proximal tib-fib and midshaft. There is tenderness to palpation of the lateral and medial malleolus with swelling and obvious deformity. Right DP and PT pulses are intact. Patient able to wiggle her toes. Sensation intact in lower extremity. Compartments are soft to palpation in the right lower leg. Skin: No rash or redness. Neurological: Cranial nerves II through XII are grossly intact. Normal strength and sensation. Normal cerebellar function The rest of the physical exam is unremarkable Const Vital Signs: 07/20/25 17:47 07/20/25 17:48 07/20/25 19:47 Temperature 98.6 F Temperature Source Oral Pulse Rate 104 H 97 Respiratory Rate 18 20 H Blood Pressure 156/76 H 161/88 H Blood Pressure Mean 102 112 Pulse Ox 95 97 Oxygen Delivery Method Room Air Room Air 07/20/25 20:28 Temperature 98.6 F Temperature Source Pulse Rate 93 Respiratory Rate 16 Blood Pressure 157/87 H Blood Pressure Mean 110 Pulse Ox 93 Oxygen Delivery Method MDM MDM MDM Narrative Medical decision making narrative: Patient is a 62-year-old female presenting to the emergency department after a fall. Patient resting in bed comfortably, no acute distress. Vitals are stable. Given the patient's fall and age and she is unsure if she hit her head, CT the brain and cervical spine were ordered. X-ray imaging of the patient's right tib-fib, ankle and foot were obtained based on physical exam findings. Neurovascularly intact in the lower extremity. Patient was given fentanyl by EMS with no improvement in pain, given morphine here. X-rays were reviewed and shows evidence of a displaced fracture of the distal fibula and tibia. Radiology read with comminuted moderately displaced fracture of the distal fibula extending to the lateral malleolus. Comminuted mildly displaced fracture of the medial malleolus. Moderate subluxation of the ankle joint medially. CT brain with no acute traumatic findings. CT cervical spine with no acute traumatic findings. Patient reevaluated and updated on the x-ray and CT imaging. Explained need for splint placement. Before splint was placed again the patient is neurovascularly intact. She was placed in a short posterior leg with stirrup splint and tolerated well. Patient was reevaluated about 20 minutes after splint placement and has good cap refill able to wiggle toes and normal sensation. She was instructed to be nonweightbearing at all times until follow-up with orthopedics. She was given both orthopedics and podiatry follow-up. She was given crutches for ambulation. Instructed to take Motrin for pain control however did also prescribe a short course of narcotics if needed. Given RICE instructions. I was notified by nursing staff that the patient's daughter called and stated the patient has been having frequent falls and she is concerned about a possible UTI. I did speak with the patient and her at bedside who both state that she has not been falling frequently and the patient has no urinary symptoms. I did offer to obtain a urine sample but the patient declined. She is alert and oriented x 3 and has capacity. Patient discharged from the Emergency Department. I do not feel that the patient's evaluation reveals any acute reason for admission at this time. I instructed them to either follow-up with their primary care physician or promptly return to the Emergency Department for reevaluation should symptoms worsen or new symptoms develop. I explained what symptoms would indicate the need to return to the emergency department. Shared decision making was used. The patient voiced understanding of the treatment plan and is agreeable with it. Clinical impression Fall Bimalleolar ankle fracture History & Record Review Discussion w/independent historian: Patient and Family Radiography X-Ray: Read by ED Physician and Fracture (Bimalleolar ankle fracture) Diagnostic Testing: Clinical Impression(s) from Imaging Studies Brain CT 07/20/25 18:11 IMPRESSION: No acute traumatic findings. Chronic/degenerative changes as described. Reading Location: [facility] Cervical Spine CT 07/20/25 18:11 IMPRESSION: No acute traumatic findings. Chronic/degenerative changes as described. Reading Location: [facility] Ankle X-Ray 07/20/25 18:30 IMPRESSION: 1. Comminuted moderately displaced fracture of the distal fibula extending to the lateral malleolus. 2. Comminuted mildly displaced fracture of the medial malleolus. 3. Moderate subluxation of the ankle joint medially. Reading Location: [facility] Foot X-Ray 07/20/25 18:30 IMPRESSION: 1. Partially visualization comminuted displaced fracture of the distal fibula and medial malleolus. 2. Degenerative changes as above. Reading Location: [facility] Tibia/Fibula X-Ray 07/20/25 18:30 IMPRESSION: 1. Comminuted moderately displaced fracture of the distal fibula and medial malleolus with subluxation of the ankle joint medially. 2. Soft tissue swelling. Reading Location: [facility] Procedures Lower Extremity Splints Lower Extremity Splint: Orthoglass Splint Fabrication: Fabricated Location: Right Discharge Plan Triage Chief Complaint: Lower Extremity Injury ED Provider: Shraddha Langley Dx/Rx/DC Orders Clinical Impression: Fall, Bimalleolar ankle fracture Instructions: Exercises to Prevent Falls, Understanding an Ankle Fracture, ED Ankle Fracture, ED Fall Prevention Prescriptions: New hydrocodone-acetaminophen 5-325 mg tablet 1 tab PO Q6H PRN PRN (Reason: Pain) 3 Days Qty: 10 0RF No Action quetiapine 300 mg tablet 300 mg PO QHS insulin lispro [Humalog KwikPen Insulin] 100 unit/mL Insulin Pen See Protocol SUBCUT TID Protocol: 1. Sliding Scale Insulin Low Dosing Condition: 150-224 mg/dl = 1 unit Condition: 225-299 mg/dl = 2 units Condition: 300-374 mg/dl = 3 units Condition: 375-499 mg/dl = 4 units Condition: Greater than 449 call physician Protocol Text: - Use for Total Daily Dose of Insulin 15-27 units - Thin, elderly, renal patients LOW DOSING ALGORITHM Rx Instructions: plus sliding scale buspirone 10 mg tablet 20 mg PO TID albuterol sulfate 90 mcg/actuation HFA aerosol inhaler 90 inh INHALATION Q4H PRN PRN (Reason: sob) Patient Comments: TAKE 2 PUFFS BY MOUTH EVERY 4 HOURS NEEDED bupropion HCl 150 mg tablet extended release 24 hr 150 mg PO DAILY Patient Comments: TAKE 1 TABLET BY MOUTH EVERY MORNING insulin glargine U-300 conc [Toujeo Max U-300 SoloStar] 300 unit/mL (3 mL) insulin pen 80 unit subcut DAILY omeprazole 40 mg Capsule,Delayed Release(Dr/Ec) 40 mg PO DAILY quetiapine 25 mg tablet 25 mg PO TID PRN (Reason: mental health) promethazine 25 mg tablet 25 mg PO Q6H PRN (Reason: nausea) Patient Comments: TAKE 1 TABLET BY MOUTH EVERY 6 HOURS NEEDED FOR NAUSEA AND VOMITING albuterol sulfate 2.5 mg /3 mL (0.083 %) solution for nebulization 2.5 mg inhalation Q8H PRN (Reason: shortness of breath or wheezing) Patient Comments: [NO ORIGINAL SIG] gabapentin 400 mg capsule 400 mg PO TID nystatin 100,000 unit/gram powder 1 applic topical DAILY bupropion HCl 300 mg tablet extended release 24 hr 300 mg PO DAILY insulin glargine U-300 conc [Toujeo SoloStar U-300 Insulin] 300 unit/mL (1.5 mL) insulin pen 80 unit subcut DAILY Trelegy Ellipta 200-62.5-25 mcg blister with device 1 ea inhalation DAILY Primary Care Provider: Ricci Broussard Referrals: Kenn Weldon DO [Med Staff - Active Staff, Orthopedics] - As soon as possible Jayce Cole DPM [Med Staff - Active Staff, Podiatry] - As soon as possible Ricci Broussard MD [Primary Care Provider, Medical] Activity Restrictions/Additional Instructions: You cannot put any weight on your right leg. Use the crutches at all times. Take Motrin every 8 hours as needed for pain control at home. If you need something stronger you can then take the [place]. This can cause lightheadedness, dizziness, stomach upset and constipation. Please be aware of this. Follow-up with the bone or foot doctor below as soon as possible. Your evaluation in the Emergency Department did not reveal any acute reason for admission. However, I want to emphasize that you may be early in the course of a disease process or illness even if it is not present. For this reason you should follow-up within 24 hours for reevaluation with either your primary care physician or if necessary back here in the Emergency Department. You should return to the Emergency Department immediately if your symptoms worsen or new symptoms develop. Print Language: Malay Disposition Disposition: Home, Self Care Discharge Date/Time: 07/20/25 20:51
--- OUTSIDE RECORDS SUMMARY | 2025-07-20 18:25 | XMS RPT_ITS | CCD ---
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 Ricci Cole Primary Care Provider MD J Carlos Kevin Emergency Provider Dr. Benjamín Horner Attending Provider Dr. Benjamín Horner Admit Provider Dr. Benjamín Horner Other Provider Dr. Pippa Brice Attending Provider Dr. Pippa Brice Other Provider Dr. Manolo Wade Other Provider Toña Sawyer MD Unavailable Ricci Cole MD Primary Care Provider Toña Sawyer MD Unavailable Anup TAVERAS, Sho Odell Unavailable Dr. Ricci Cole Referring Provider Estefania, Dr. Richardson Attending Provider [phone] Audie Walker Emergency Provider Dr. Pippa Brice Admit Provider Dr. Naveen Castro Attending Provider Dr. Naveen Castro Other Provider Ricci Cole MD Primary Care Provider Digna TATE, Toña Unavailable Anup TAVERAS, Sho Odell Unavailable [phone] Ricci Cole Primary Care Provider Dr. Pippa Brice Other Provider Dr. Manolo Wade Other Provider Friend, Dr. Richardson Referring Provider [phone] Friend, Dr. Richardson Other Provider Friend Dylan CHAMPION Unavailable Makeda RN, Herson Unavailable Ricci Cole MD Primary Care Provider Digna TATE, Toña Unavailable Friend Dylan CHAMPION Unavailable Makeda RN, Herson Unavailable Makeda RN, Herson Unavailable Friend Dylna CHAMPION Unavailable Makeda RN, Herson Unavailable Dr. Ricci Cole Primary Care Provider Dr. Audie Walker Emergency Provider Dr. Leeanne Barron Admit Provider Dr. Leeanne Barron Other Provider Dr. Sho Yi Attending Provider Dr. Sho Yi Other Provider Ricci Cole MD Primary Care Provider LouiseedgarveritoJacqui Unavailable Haagen COURT [email or web address].LINE THERAPIST, Nanci Unavailable Suppclara COURT MESSENGER.LINE THERAPIST, Smiley A Unavailable Dr. Ricci Cole MD Primary Care Physician [phone] Johnna TATE, Dr. Harper Attending Physician Dr. Bhavin Quinn DO Attending Physician Dr. Bhavin Quinn DO Emergency Department Physic anival SUPPAN, SMLIEY A Referring Unavailable KELSEY, RICCI Benito Primary Care Unavailable SUPPAN, SMILEY A Attending Unavailable SELF Referring Unavailable KELSEY, RICCI Benito Primary Care Unavailable SUPPAN, SMILEY A Attending Unavailable KELSEY, RICCI Benito Primary Care Unavailable SUPPAN, SMILEY A Attending Unavailable SELF Referring Unavailable KELSEY, RICCI Benito Primary Care Unavailable SUPPAN, SMILEY A Referring Unavailable KELSEY, RICCI Benito Primary Care Unavailable KELSEY, RICCI Benito Primary Care Unavailable SUPPAN, SMILEY A Attending Unavailable SUPPAN, SMILEY A Referring Unavailable RICCI COLE Primary Care Unavailable SUPPAN, SMILEY A Attending Unavailable Bhavin Quinn Attending Unavailable Ricci Cole Primary Care Unavailable Allergies Allergy Classification Reported Allergen(s) Allergy Type Date of Onset Reaction(s) Facility Penicillins (antibiotic) (1 source) Penicillins Drug Allergy 8 [facility] Work Phone: Sulfonamides (antibiotic) (1 source) Sulfonamides (Antibiotic) Drug Allergy 7 Rash, Other: See Comments [facility] varenicline (1 source) varenicline Drug Allergy 9 Mental Status Change [facility] (1 source) Penicillins Drug allergy (disorder) [facility] Repository (1 source) Sulfonamides (Antibiotic) Drug allergy (disorder) [facility] Repository (20 sources) Penicillins; Translations: [PENICILLINS] Propensity to adverse reactions to drug (disorder) 8 [facility] Repository (20 sources) Sulfonamides (Antibiotic); Translations: [SULFA (SULFONAMIDE ANTIBIOTICS)] Propensity to adverse reactions to drug (disorder) 7 Rash, Other: See Comments [facility] Repository (20 sources) varenicline; Translations: [VARENICLINE] Drug Allergy 9 Mental Status Change [facility] Comment on above: fuzzy head (1 source) varenicline Drug Allergy 5 [facility] Repository Medications Current Medications Medication Drug Class(es) Dates Sig (Normalized) Sig (Original) albuterol 0.83 mg/ml inhalation solution (20 sources) beta2-Adrenergic Agonist Start: 03-29-2025 albuterol (PROVENTIL) 2.5 mg /3 mL (0.083 %) nebulizer solution Indications: COPD with exacerbation (HCC) Use 3 mL via nebulizer every 4 hours as needed for wheezing/shortness of breath. Use over 5-15minutes. 120 mL 3 03/29/2025 Active Start: 03-29-2025 take 2 puff(s) by in halation every four hours as needed albuterol HFA (VENTOLIN HFA) 90 mcg/actuation inhaler Indications: Chronic bronchitis, unspecified chronic bronchitis type (HCC) Inhale 2 puffs as instructed every 4 hours as needed. 18 g 5 03/29/2025 Active Start: 08-15-2023 albuterol (PRO VENTIL) 2.5 mg /3 mL (0.083 %) nebulizer solution Indications: COPD with exacerbation (HCC) Use 3 mL via nebulizer every 4 hours as needed for wheezing/shortness of breath. Use over 5-15minutes. 120 mL 3 08/15/2023 Active Start: 01-17-2022 Albuterol Sulf ate Active 90 INH INHALATION EVERY 4 HOURS NEEDED January 17, 2022 4:37pm Start: 01-17-2022 Start: 01-17-2022 Albuterol Sulf ate Active 90 INH INHALATION EVERY 4 HOURS NEEDED January 16, 2022 11:00pm Start: 11-12-2021 End: 04-15-2023 take 2.5 mg by inhalation every four hours as needed albuterol (PROVENTIL) 2.5 mg /3 mL (0.083 %) nebulizer solution Use 3 mL via nebulizer every 4 hours as needed for wheezing/shortness of breath. 120 Vial 5 11/12/2021 04/15/2023 Discontinued (Other) Start: 09-14-2021 End: 01-05-2024 take 2 puff(s) by inhalation every four hours as needed albuterol HFA (VENTOLIN HFA) 90 mcg/actuation inhaler Indications: Chronic bronchitis, unspecified chronic bronchitis type (HCC) Inhale 2 Puffs as instructed every 4 hours as needed. 18 g 5 01/05/2024 Active Start: 03-28-2021 End: 06-05-2021 take 2 puff(s) by inhalation every four hours as needed albuterol HFA (VENTOLIN HFA) 90 mcg/actuation inhaler Indications: Chronic bronchitis, unspecified chronic bronchitis type (HCC) Inhale 2 Puffs as instructed every 4 hours as needed. 18 g 03/28/2021 06/05/2021 Discontinued Start: 07-04-2020 End: 08-15-2020 take 2 puff(s) by inhalation every four hours as needed albuterol HFA (VENTOLIN HFA) 90 mcg/actuation inhaler Indications: Chronic bronchitis, unspecified chronic bronchitis type (HCC) Inhale 2 Puffs as instructed every 4 hours as needed. 18 g 07/04/2020 08/15/2020 Discontinued Start: 01-04-2020 End: 09-07-2021 albuterol (PROVENTIL) 2.5 mg /3 mL (0.083 %) nebulizer solution Indications: Mixed simple and mucopurulent chronic bronchitis (HCC) , Chronic cough Use 3 mL via nebulizer every 4 hours as needed for Wheezing/Shortness of Breath. 120 Vial 5 01/04/2020 09/07/2021 Discontinued (Duplicate Entry) Start: 07-28-2019 End: 03-02-2020 Albuterol Sulfate 1 INHALER inhaler Discontinued 1 - 2 NMA INHALATION EVERY 4 HOURS NEEDED as needed for Wheezing 1 0 July 28, 2019 1:00am March 02, 2020 11:15am Start: 07-28-2019 End: 03-02-2020 take 1 puff(s) by inhalation every four hours as needed Albuterol Sulfate Discontinued 1 - 2 PUFF INHALATION EVERY 4 HOURS NEEDED July 28, 2019 12:00am March 02, 2020 10:15am Comment on above: Use 3 mL via nebuliz er every 4 hours as needed for wheezing/shortness of breath. Inhale 2 Puffs as in structed every 4 hours as needed. Use 3 mL via nebuliz er every 4 hours as needed for wheezing/shortness of breath. Use over 5-15minutes. azithromycin 250 mg oral tablet (6 sources) Macrolide Antimicrobial Start: 03-01-2025 End: 03-06-2025 azithromycin (ZITHROMAX Z-PAVEL) 250 mg tablet Indications: Chronic bronchitis, unspecified chronic bronchitis type (HCC) Take 2 tablets day one, then, 1 tablet daily until gone. 6 tablet 03/01/2025 03/06/2025 Active Start: 09-04-2022 End: 09-14-2022 take 1 tablet by mouth once daily azithromycin (ZITHROMAX) 250 mg tablet Take 1 tablet by mouth once daily for 10 days. 10 tablet 0 09/04/2022 09/14/2022 Active Comment on above: Take 1 tablet by marie th once daily for 10 days. benzonatate 100 mg oral capsule (20 sources) Non-narcotic Antitussive Start: End: take 1 capsule by mouth three times daily as needed benzonatate (TESSALON PERLE) 100 mg capsule Indications: Acute cough Take 1 capsule by mouth three times a day as needed for up to 15 days. 45 capsule 2025 04/22/2025 Active Start: 09-03-2023 End: 04-29-2024 take 100-200 mg by mouth every eight hours as needed benzonatate (TESSALON PERLES) 100 mg capsule Take 1-2 capsules by mouth three times a day as needed for cough. 40 capsule 09/03/2023 04/29/2024 Discontinued (Cost of medication) Comment on above: Take 1-2 capsules by mouth three times a day as needed for cough. Blood-Glucose Meter (2 sources) Start: 07-26-2024 End: 07-27-2024 Blood-Glucose Meter Test Four times a day. Insulin Dep? Yes E11.9 DM 2 1 Each 07/26/2024 07/27/2024 Active Blood-Glucose Meter monitoring kit (12 sources) Start: 03-03-2025 Blood-Glucose Meter monitoring kit Indications: Uncontrolled type 2 diabetes mellitus with hyperglycemia (HCC) Glucose Meter of Choice - Kit - Dx: Type 2 DM - Uncontrolled E11.65 1 each 03/03/2025 Active Start: 03-03-2025 End: 03-04-2025 Blood-Glucose Meter monitori ng kit Indications: Uncontrolled type 2 diabetes mellitus with hyperglycemia (HCC) Glucose Meter of Choice - Kit - Dx: Type 2 DM - Uncontrolled E11.65 1 each 03/03/2025 03/04/2025 Active 24 hr buPROPion hydrochlorid e 150 mg extended release oral tablet (20 sources) Aminoketone Start: 08-28-2021 take 1 tablet by marie th once daily Start: 08-28-2021 take 1 tablet by marie th once daily buPROPion XL (WELLBUTRIN XL) 150 mg 24 hr tablet Take 300 mg by mouth once daily. 08/28/2021 Active Comment on above: Take 1 tablet by marie th once daily. busPIRone hydrochloride 10 mg oral tablet (20 sources) Start: 01-17-2022 take 2 tablets by mouth three times daily Start: 01-17-2022 take 20 mg by mouth three times daily Buspirone Active 20 MG PO THREE TIMES A DAY January 16, 2022 11:00pm Start: 10-17-2021 End: 04-15-2023 take 1 tablet by mouth three times daily busPIRone (BUSPAR) 10 mg tablet Indications: Panic attacks Take 1 tablet by mouth three times daily. 90 tablet 3 04/15/2023 Active Start: 02-16-2021 End: 06-25-2021 take 1 tablet by mouth three times daily busPIRone (BUSPAR) 10 mg tablet Indications: Panic attacks TAKE 1 TABLET BY MOUTH THREE TIMES A DAY 90 tablet 3 02/16/2021 06/25/2021 Discontinued Start: 08-15-2020 take 1 tablet by marie th three times daily busPIRone Active 1 TABLET PO THREE TIMES A DAY August 15, 2020 12:40pm Start: 07-03-2020 End: 12-07-2020 take 1 tablet by mouth three times daily busPIRone (BUSPAR) 10 mg tablet Indications: Panic attacks Take 1 tablet by mouth three times daily. 90 tablet 3 07/03/2020 12/07/2020 Discontinued Comment on above: Take 1 tablet by marie th three times daily. ciprofloxacin 500 mg oral tablet (20 sources) Quinolone Antimicrobial Start: 05-13-20 End: 05-23-20 take 1 tablet by mouth twice daily ciprofloxacin HCl (CIPRO) 500 mg tablet Indications: Recurrent UTI (urinary tract infection) Take 1 tablet by mouth two times a day for 10 days. 20 tablet 05/13/2024 05/23/2024 Active Start: 10-13-2017 End: 11-18-2017 take 1 tablet by mouth twice daily Ciprofloxacin Hcl 500 MG tablet Discontinued 500 mg PO TWICE A DAY 14 0 October 13, 2017 1:00am November 18, 2017 8:32am Start: 06-18-2013 End: 08-17-2013 take 1 tablet by mouth twice daily Ciprofloxacin Hcl 500 MG tablet Discontinued 500 mg PO TWICE A DAY 14 June 18, 2013 12:00am August 17, 2013 12:40pm doxycycline hyclate 100 mg oral tablet (9 sources) Tetracycline-class Drug Start: 03-10-2025 End: 03-24-2025 take 1 tablet by mouth twice daily doxycycline (VIBRA-TABS) 100 mg tablet Indications: Acute bronchitis, unspecified organism Take 1 tablet by mouth two times a day for 14 days. 28 tablet 03/10/2025 03/24/2025 Active Start: 11-14-2022 End: 08-04-2023 take 1 capsule by mouth twice daily Doxycycline Hyclate 100 mg capsule Discontinued 100 mg PO TWICE A DAY 14 0 November 14, 2022 12:00am August 04, 2023 3:55pm Start: 11-22-2021 End: 12-02-2021 take 1 tablet by mouth twice daily doxycycline (VIBRA-TABS) 100 mg tablet Indications: COPD with exacerbation (HCC) Take 1 tablet by mouth twice daily for 10 days. 20 tablet 0 11/22/2021 12/02/2021 Active Comment on above: Take 1 tablet by [facility] twice daily for 10 days. ergocalciferol 1.25 mg oral capsule (20 sources) Provitamin D2 Compound Start: 03-03-20 End: 03-29-20 take 1 capsule by mouth every other week ergocalciferol 50,000 unit capsule (VITAMIN D2, DRISDOL) Indications: Vitamin D deficiency Take 1 capsule by mouth every other week. 7 capsule 3 03/29/2025 03/29/2026 Active Start: 08-19-2023 End: 03-03-2025 take 1 capsule by mouth every week ergocalciferol 50,000 unit capsule (VITAMIN D2, DRISDOL) Indications: Vitamin D deficiency Take 1 capsule by mouth one time a week. 12 capsule 3 08/19/2023 03/03/2025 Discontinued Comment on above: Take 1 capsule by [facility] one time a week. ertapenem 1000 mg injection (6 sources) Penem Antibacterial Start: 2 Ertapenem Active 1 GM IV EVERY 24 HOURS 04 01May 03, 2022 12:00am stop date 05/11/22 dx:esbl uti weekly bmp, cbc, and LFT. Fax to [phone]. escitalopram 20 mg oral tablet (20 sources) Serotonin Reuptake Inhibitor Start: 2 take 1 tablet by mouth once daily Start: 11-15-2021 take 10 mg by mouth once daily escitalopram oxalate (LEXAPRO) 20 mg tablet Take 10 mg by mouth once daily. 11/15/2021 Active Comment on above: Take 20 mg by mouth once daily. 14 actuat fluticasone furoate 0.1 mg/actuat / vilanterol 0.025 mg/actuat dry powder inhaler (20 sources) Corticosteroid, beta2-Adrenergic Agonist Start: 4 take 1 dose by inhalation once daily fluticasone-vilanter ol (BREO ELLIPTA) 100-25 mcg/dose inhaler Indications: Chronic bronchitis, unspecified chronic bronchitis type (HCC) Inhale 1 Inhalation as instructed once daily. 1 Each 5 11/21/2023 Active Start: 01-17-2022 End: 10-10-2023 take 1 dose by inhalation once daily fluticasone-vilanterol (BREO ELLIPTA) 100-25 mcg/dose inhaler Inhale 1 Inhalation as instructed once daily. 1 Each 5 07/24/2022 10/10/2023 Discontinued Start: 01-17-2022 Fluticasone Fu roate-Vilanterol (Breo Ellipta) 100-25 mcg/dose blister with device Active 1 EACH INHALATION DAILY January 16, 2022 11:00pm Start: 06-01-2020 End: 07-11-2022 Comment on above: Inhale 1 Inhalation as instructed once daily. Inhale 100 mcg as in structed DAILY (6 AM). Daily every morning Fluticasone Furoate-Vilanterol (Breo Ellipta) 100-25 mcg/dose blister with device (1 source) Start: 01-18-20 Fluticasone Furoate-Vilanterol (Breo Ellipta) 100-25 mcg/dose blister with device Active 1 EACH INHALATION DAILY January 17, 2022 4:37pm fluticasone-umeclid in-vilanter (TRELEGY ELLIPTA) 200-62.5-25 mcg inhalation powder (6 sources) Start: 03-29-20 End: 09-25-19 take 1 puff(s) by inhalation once daily fluticasone-umeclidin- vilanter (TRELEGY ELLIPTA) 200-62.5-25 mcg inhalation powder Indications: COPD with exacerbation (HCC) Inhale 1 puff as instructed once daily. 60 each 5 03/29/2025 09/25/2025 Active 12 hr guaiFENesin 600 mg extended release oral tablet (2 sources) Start: 09-04-19 End: 09-14-19 23 take 2 tablets by mouth twice daily as needed guaiFENesin (MUCINEX) 600 mg 12 hr tablet Take 2 tablets by mouth twice daily as needed for cold/allergy symptoms for up to 10 days. 30 tablet 0 09/04/2022 09/14/2022 Active Comment on above: Take 2 tablets by mo [facility] twice daily as needed for cold/allergy symptoms for up to 10 days. 1.5 ml insulin glargine 300 unt/ml pen injector (20 sources) Insulin Analog Start: 03-29-20 End: 06-27-20 insulin glargine U-300 conc (TOUJEO) 300 unit/mL (1.5 mL) Indications: Uncontrolled type 2 diabetes mellitus with hyperglycemia (HCC) Inject 80 Units subcutaneously every morning. E11.9 Dispense 2 boxes of 3 pens. 8 mL 2 03/29/2025 06/27/2025 Active Start: 08-26-2023 End: 03-24-2025 insulin glargine U-300 conc (TOUJEO) 300 unit/mL (1.5 mL) Indications: Type 2 diabetes mellitus without complication, without long-term current use of insulin (HCC) Inject 80 Units subcutaneously every morning. E11.9 Dispense 2 boxes of 3 pens. 8 mL 2 12/24/2024 Active Start: 06-11-2022 Start: 05-03-2022 End: 06-11-2022 Insulin Glargine U-300 Conc (Toujeo Max U-300 Solostar) 300 unit/mL (3 mL) insulin pen Discontinued 70 U SC DAILY 6 0 May 03, 2022 1:05pm June 11, 2022 8:29am diabetes Start: 04-04-2022 End: 08-08-2023 insulin glargine U-300 conc (TOUJEO) 300 unit/mL (1.5 mL) Indications: Type 2 diabetes mellitus without complication, without long-term current use of insulin (HCC) Inject 80 Units subcutaneously every morning. E11.9 1 Each 0 2023 07/21/2023 Discontinued Start: 01-11-2022 End: 05-03-2022 Insulin Glargine U-300 Conc (Toujeo Max U-300 Solostar) 300 unit/mL (3 mL) insulin pen Discontinued 80 U SC DAILY January 11, 2022 12:00am May 03, 2022 1:05pm diabetes Start: 10-29-2021 End: 01-29-2022 insulin glargine U-300 conc (TOUJEO) 300 unit/mL (1.5 mL) Indications: Type 2 diabetes mellitus without complication, without long-term current use of insulin (HCC) Inject 80 Units subcutaneously every morning. E11.9 9 Pen 1 01/29/2022 Active Start: 05-17-2020 End: 08-31-2020 Insulin Glargine U-300 Conc 300 unit/mL (1.5 mL) insulin pen Discontinued 75 U SC DAILY May 17, 2020 11:30am August 31, 2020 9:10am dm Start: 03-30-2020 End: 08-02-2021 insulin glargine U-300 conc (TOUJEO) 300 unit/mL (1.5 mL) Indications: Type 2 diabetes mellitus without complication, without long-term current use of insulin (HCC) Inject 80 Units subcutaneously every morning. E11.9 8 Pen 5 09/04/2020 08/02/2021 Discontinued Start: 03-02-2020 End: 05-17-2020 Insulin Glargine U-300 Conc 300 unit/mL (1.5 mL) insulin pen Discontinued 54 U SC DAILY March 02, 2020 11:15am May 17, 2020 11:30am dm Start: 04-27-2018 End: 03-02-2020 Insulin Glargine U-300 Conc 300 UNIT/ML insulin pen Discontinued 50 U SC DAILY April 27, 2018 8:23pm March 02, 2020 11:18am dm Start: 12-17-2017 End: 04-27-2018 Insulin Glargine U-300 Conc (Toujeo Solostar U-300 Insulin) 300 unit/mL (1.5 mL) insulin pen Discontinued 29 U SC daily 4.5 11 December 18, 2017 7:19am April 27, 2018 8:23pm Type 2 diabetes mellitus without complications e11.9 Start: 11-18-2017 End: 12-17-2017 Insulin Glargine U-300 Conc (Toujeo Solostar U-300 Insulin) 300 unit/mL (1.5 mL) insulin pen Discontinued 22 U SC daily November 18, 2017 12:00am December 17, 2017 2:12pm Comment on above: Inject 80 Units subc utaneously every morning. E11.9 Insulin Glargine-Yfgn (6 sources) Start: 05-03-2022 Insulin Glargine-Yfgn Active 30 UNIT SC AT BEDTIME 0 May 03, 2022 12:00am 3 ml insulin lispro 100 unt/ml pen injector (20 sources) Insulin Analog Start: 05-03-2022 Insulin Lispro (Humalog Kwikpen Insulin) 100 unit/mL Insulin Pen Active 30 UNIT SC THREE TIMES DAILY BEFORE MEALS May 03, 2022 12:00am Start: 01-02-2022 Insulin Lispro (Humalog Kwikpen Insulin) 100 unit/mL Insulin Pen Active 15 UNIT SC THREE TIMES A DAY January 02, 2022 11:43am plus sliding scale Start: 01-02-2022 Start: 11-06-2020 End: 04-03-2025 inject 12 [IU] by subcutaneous injection three times daily before mealtime, then inject 38 [IU] by subcutaneous injection three times daily insulin lispro (HUMALOG KWIKPEN INSULIN) 100 unit/mL Indications: Type 2 diabetes mellitus without complication, without long-term current use of insulin ([facility]) Inject 12 Units subcutaneously three times a day before meals. And sliding scale up to 38 units tid. 3 Each 5 10/05/2024 Active Start: 03-30-2020 End: 10-31-2020 insulin lispro (HUMALOG KWIK PEN INSULIN) 100 unit/mL Indications: Type 2 diabetes mellitus without complication, without long-term current use of insulin ([facility]) Inject 12 Units subcutaneously three times daily before meals. 8 Pen 5 03/30/2020 10/31/2020 Discontinued Start: 01-09-2020 End: 05-17-2020 inject 14 [IU] by subcutaneous injection four times daily Insulin Lispro 100 UNIT/ML cartridge Discontinued 14 U SQ 4 TIMES DAILY January 09, 2020 12:00am May 17, 2020 11:12am Comment on above: Inject 12 Units subc utaneously three times daily before meals. And sliding scale up to 38 units tid. ketoconazole 20 mg/ml medicated shampoo (6 sources) Azole Antifungal Start: 03-23-20 End: 04-06-20 ketoconazole (NIZORAL) 2 % shampoo Indications: Tinea corporis Apply to affected area two times a week for 14 days. 240 mL 0 03/23/2024 04/06/2024 Active lisinopril 2.5 mg oral tablet (6 sources) Angiotensin Converting Enzyme Inhibitor Start: 03-29-20 End: 03-29-20 take 1 tablet by mouth once daily lisinopril 2.5 mg tablet Indications: Diabetic nephropathy associated with type 2 diabetes mellitus (HCC) Take 1 tablet by mouth once daily. For kidney protection 90 tablet 3 03/29/2025 03/29/2026 Active nitrofurantoin, macrocrystals 25 mg / nitrofurantoin, monohydrate 75 mg oral capsule (20 sources) Nitrofuran Antibacterial Start: 05-19-20 take 1 capsule by mouth every twelve hours at mealtime Start: 03-31-2025 End: 2025 take 1 capsule by mouth twice daily at mealtime nitrofurantoin monohydrate and macrocrystal (MACROBID) 100 mg capsule Indications: Recurrent UTI (urinary tract infection) Take 1 capsule by mouth two times a day with meals for 7 days. 14 capsule 03/31/2025 2025 Active Start: 03-01-2025 End: 03-06-2025 take 1 capsule by mouth twice daily nitrofurantoin monohydrate and macrocrystal (MACROBID) 100 mg capsule Indications: Dysuria , Recurrent UTI (urinary tract infection) Take 1 capsule by mouth two times a day for 5 days. 10 capsule 03/01/2025 03/06/2025 Active Start: 07-26-2024 End: 08-03-2024 take 1 capsule by mouth twice daily at mealtime nitrofurantoin monohydrate and macrocrystal (MACROBID) 100 mg capsule Indications: Recurrent UTI (urinary tract infection) Take 1 capsule by mouth two times a day with meals for 5 days. 10 capsule 07/29/2024 08/03/2024 Active Start: 04-29-2024 End: 05-06-2024 take 1 capsule by mouth twice daily at mealtime nitrofurantoin monohydrate and macrocrystal (MACROBID) 100 mg capsule Indications: Recurrent UTI (urinary tract infection) Take 1 capsule by mouth two times a day with meals for 7 days. 14 capsule 04/29/2024 05/06/2024 Active Start: 03-23-2024 End: 03-30-2024 take 1 capsule by mouth twice daily at mealtime nitrofurantoin monohydrate and macrocrystal (MACROBID) 100 mg capsule Indications: Dysuria Take 1 capsule by mouth two times a day with meals for 7 days. 14 capsule 0 03/23/2024 03/30/2024 Active Start: 04-18-2023 End: 04-25-2023 take 1 capsule by mouth twice daily at mealtime nitrofurantoin monohydrate and macrocrystal (MACROBID) 100 mg capsule Take 1 capsule by mouth twice daily with meals for 7 days. 14 capsule 0 04/18/2023 04/25/2023 Active Start: 01-05-2022 End: 01-08-2022 take 1 capsule by mouth twice daily nitrofurantoin monohydrate and macrocrystal (MACROBID) 100 mg capsule Indications: History of recurrent UTIs , Pyuria Take 1 capsule by mouth twice daily for 3 days. 6 capsule 0 01/05/2022 01/08/2022 Active Start: 12-20-2021 End: 12-27-2021 take 1 capsule by mouth twice daily at mealtime nitrofurantoin monohydrate and macrocrystal (MACROBID) 100 mg capsule Take 1 capsule by mouth twice daily with meals for 7 days. 14 capsule 0 12/20/2021 12/27/2021 Start: 01-09-2020 End: 05-17-2020 take 1 capsule by mouth every twelve hours Nitrofurantoin Monohyd/M-Cryst 100 MG capsule Discontinued 100 mg PO EVERY 12 HOURS 10 January 09, 2020 12:00am May 17, 2020 11:10am Comment on above: Take 1 capsule by mo uth twice daily with meals for 7 days. Take 1 capsule by mo uth twice daily for 3 days. nystatin 100 unt/mg topical powder (20 sources) Polyene Antifungal Start: 03-29-2025 End: 06-27-2025 nystatin (MYCOSTATIN) powder Indications: Cutaneous candidiasis Apply 1 application to affected area four times daily. 30 g 3 03/29/2025 06/27/2025 Active Start: 03-23-2024 End: 04-06-2024 nystatin (MYCOSTATIN) powder Indications: Tinea corporis Apply 1 application to affected area four times daily for 14 days. 120 g 0 03/23/2024 04/06/2024 Active Start: 08-27-2023 nystatin (MYCO STATIN) powder Indications: Cutaneous candidiasis Apply 1 application to affected area four times daily. 30 g 1 08/27/2023 Active Start: 02-24-2023 End: 03-10-2023 nystatin (NYSTOP) powder Ind ications: Candidiasis Apply 1 application to affected area three times daily for 14 days. 60 g 1 02/24/2023 03/10/2023 Active Start: 05-28-2022 End: 06-11-2022 nystatin (NYSTOP) powder Ind ications: Candidiasis Apply 1 application to affected area three times daily for 14 days. 60 g 1 05/28/2022 06/11/2022 Active Comment on above: Apply 1 application to affected area three times daily for 14 days. Apply 1 application to affected area four times daily. omeprazole 40 mg delayed release oral capsule (20 sources) Proton Pump Inhibitor Start: 2 End: 3 take 2 capsules by mouth once daily before breakfast omeprazole (PRILOSEC) 20 mg capsule Take 2 capsules by mouth daily before breakfast. Needs appointment for more refills. 60 capsule 0 07/31/2022 04/15/2023 Discontinued Start: 06-04-2022 take 2 capsules by m outh once daily before breakfast omeprazole (PRILOSEC) 20 mg capsule Take 2 capsules by mouth daily before breakfast. 60 capsule 0 06/04/2022 Active Start: 05-01-2022 End: 05-10-2025 take 1 capsule by mouth once daily omeprazole (PRILOSEC) 40 mg capsule Indications: Other chronic gastritis without hemorrhage Take 1 capsule by mouth once daily. 90 capsule 05/10/2025 Active Start: 05-01-2022 take 40 mg by mouth twice amber y Omeprazole Active 40 MG PO TWICE A DAY May 01, 2022 12:00am Start: 10-01-2021 End: 03-27-2022 take 2 capsules by mouth once daily before breakfast omeprazole (PRILOSEC) 20 mg capsule Take 2 capsules by mouth daily before breakfast. 60 capsule 0 03/27/2022 Active Start: 02-09-2021 End: 04-18-2021 take 2 capsules by mouth once daily before breakfast omeprazole (PRILOSEC) 20 mg capsule Take 2 capsules by mouth daily before breakfast. 60 capsule 02/09/2021 04/18/2021 Discontinued Start: 07-04-2020 End: 10-09-2020 take 2 capsules by mouth once daily before breakfast omeprazole (PRILOSEC) 20 mg capsule Take 2 capsules by mouth daily before breakfast. 60 capsule 07/04/2020 10/09/2020 Discontinued Start: 11-18-2017 take 40 mg by mouth once daily Omeprazole Active 40 MG PO DAILY November 18, 2017 8:33am Start: 10-23-2016 End: 11-18-2017 take 1 capsule by mouth at bedtime Omeprazole 20 MG capsule Discontinued 20 mg PO AT BEDTIME October 23, 2016 2:24pm November 18, 2017 8:35am Start: 11-20-2014 End: 10-23-2016 take 2 capsules by mouth once daily Omeprazole 20 MG capsule Discontinued 40 mg PO DAILY 14 0 November 20, 2014 12:00am October 23, 2016 2:24pm Start: 11-20-2014 End: 10-23-2016 take 40 mg by mouth once daily Omeprazole Discontinued 40 MG PO DAILY November 19, 2014 11:00pm October 23, 2016 1:24pm Comment on above: Take 2 capsules by m outh daily before breakfast. Take 2 capsules by m outh daily before breakfast. Needs appointment for more refills. Take 1 capsule by mo [facility] once daily. phenazopyridine hydrochloride 200 mg oral tablet (5 sources) Start: 03-23-20 End: 04-02-20 take 1 tablet by mouth three times daily as needed phenazopyridine (PYRIDIUM) 200 mg tablet Indications: Dysuria Take 1 tablet by mouth three times a day as needed (urinary burning. Turns urine orange.) for up to 10 days. 30 tablet 0 03/23/2024 04/02/2024 Active predniSONE 10 mg oral tablet (20 sources) Start: 03-10-20 End: 03-22-20 predniSONE (DELTASONE) 10 mg tablet Indications: Acute bronchitis, unspecified organism Take 4 tabs for 3 days, then 2 tabs for 3 days then 1 tab for 3 days with food. 21 tablet 03/10/2025 03/22/2025 Active Start: 09-04-2022 take 1 tablet by marie twice daily predniSONE (DELTASONE) 20 mg tablet Take 1 tablet by mouth twice daily. 10 tablet 0 09/04/2022 Active Start: 11-22-2021 End: 11-27-2021 take 2 tablets by mouth once daily predniSONE (DELTASONE) 20 mg tablet Indications: COPD with exacerbation (HCC) Take 2 tablets by mouth once daily for 5 days. 10 tablet 0 11/22/2021 11/27/2021 Active Start: 06-30-2020 End: 07-27-2020 predniSONE (DELTASONE) 10 mg tablet Indications: COPD with exacerbation (HCC) 4 tablets daily for 3 days, 3 tablets daily for 3 days, 2 tablets daily for 3 days, 1 tablet daily for 3 days. 30 tablet 06/30/2020 07/27/2020 Discontinued Comment on above: Take 2 tablets by mo [facility] once daily for 5 days. Take 1 tablet by marie twice daily. promethazine hydrochloride 25 mg oral tablet (20 sources) Phenothiazine Start: 05-06-2025 End: 06-05-2025 promethazine (PHENERGAN) 25 mg suppository Indications: Gastroenteritis 1 suppository by RECTAL route every 6 hours as needed. 30 each 05/06/2025 06/05/2025 Active Start: 01-25-2025 End: 08-08-2025 take 1 tablet by mouth every six hours as needed for nausea and nausea promethazine (PHENERGAN) 25 mg tablet Indications: Chronic nausea Take 1 tablet by mouth every 6 hours as needed for nausea/vomiting. 20 tablet 2 05/10/2025 08/08/2025 Active Start: 10-20-2023 End: 01-17-2025 take 1 tablet by mouth every six hours as needed for nausea and nausea promethazine (PHENERGAN) 25 mg tablet Indications: Chronic nausea Take 1 tablet by mouth every 6 hours as needed for nausea/vomiting. 90 tablet 2 10/19/2024 01/17/2025 Active Start: 06-24-2022 End: 09-04-2022 take 25 mg rectal route every six hours as needed promethazine (PHENERGAN) 25 mg suppository 1 Suppository by RECTAL route every 6 hours as needed. 12 Suppository 0 06/24/2022 09/04/2022 Discontinued Start: 06-13-2020 End: 01-29-2022 take 25 mg rectal route every six hours as needed for nausea and nausea promethazine (PHENERGAN) 25 mg suppository Indications: Nausea 1 Suppository by RECTAL route every 6 hours as needed. 24 Suppository 2 06/13/2020 07/23/2021 Discontinued Start: 01-09-2020 End: 09-26-2023 take 1 tablet by mouth every six hours as needed for nausea Promethazine (Phenergan) 25 mg Tablet Discontinued 25 mg PO EVERY 6 HOURS as needed for Nausea June 11, 2022 12:00am August 04, 2023 3:56pm Comment on above: 1 Suppository by REC ELENA route every 6 hours as needed. Take 1 tablet by marie th every 6 hours as needed. Take 1 tablet by marie th every 6 hours as needed for nausea/vomiting. QUEtiapine 25 mg oral tablet (20 sources) Atypical Antipsychotic Start: 08-04-2023 take 1 tablet by mouth three times daily Start: 01-11-2022 take 1 tablet by marie th at bedtime take 1 tablet by marie th once daily at bedtime QUEtiapine XR (SEROQUEL XR) 300 mg 24 hr tablet Take 300 mg by mouth daily at bedtime. Active Comment on above: Take 300 mg by mouth daily at bedtime. rosuvastatin calcium 5 mg oral tablet (11 sources) HMG-CoA Reductase Inhibitor Start: End: 6 take 1 tablet by mouth once daily rosuvastatin (CRESTOR) 5 mg tablet Indications: Hyperlipidemia, mixed Take 1 tablet by mouth once daily. 90 tablet 3 03/03/2025 03/03/2026 Active vitamin b12 1 mg extended release oral tablet (11 sources) Vitamin B12 Start: End: 6 take 1 tablet by mouth once daily Cyanocobalamin 1,000 mcg TbER Indications: Vitamin B12 deficiency Take 1 tablet by mouth once daily. B12 30 tablet 11 03/29/2025 03/29/2026 Active Completed/Discontinued Medications Medication Drug Class(es) Dates Sig (Normalized) Sig (Original) acetaminophen 325 mg / oxyCODONE hydrochloride 5 mg oral tablet (15 sources) Opioid Agonist Start: 06-18-2013 End: 08-17-2013 Oxycodone-Acetamino phen 1 TABLET tablet Discontinued 1 - 2 {tbl} PO EVERY 4 HOURS NEEDED as needed for Pain June 18, 2013 12:00am August 17, 2013 12:40pm Start: 06-18-2013 End: 08-17-2013 take 1 tablet by mouth every four hours as needed Oxycodone-Acetaminophen Discontinued 1 - 2 TABLET PO EVERY 4 HOURS NEEDED June 17, 2013 11:00pm August 17, 2013 11:40am ALPRAZolam 1 mg oral tablet (12 sources) Benzodiazepine Start: 04-26-2022 End: 08-04-2023 take 1 tablet by mouth three times daily as needed for anxiety Alprazolam 1 mg tablet Discontinued 1 mg PO THREE TIMES A DAY as needed for anxiety 30 April 26, 2022 12:00am August 04, 2023 3:55pm amitriptyline hydrochloride 25 mg oral tablet (2 sources) Tricyclic Antidepressant Start: 04-19-2020 End: 04-18-2021 take 1 tablet by mouth once daily at bedtime amitriptyline (ELAVIL) 25 mg tablet Indications: DDD (degenerative disc disease), cervical Take 1 tablet by mouth daily at bedtime. 30 tablet 5 09/27/2020 04/18/2021 Discontinued aspirin 325 mg oral tablet (8 sources) Platelet Aggregation Inhibitor, Nonsteroidal Anti-inflammatory Drug End: 12-18-2021 take 1 tablet by mouth once aspirin 325 mg tablet Take 325 mg by mouth one time only. 12/18/2021 Discontinued (Course of therapy completed) Comment on above: Take 325 mg by mouth one time only. atorvastatin 20 mg oral tablet (20 sources) HMG-CoA Reductase Inhibitor Start: 01-11-2022 End: 03-01-2025 take 1 tablet by mouth at bedtime Atorvastatin 20 mg tablet Discontinued 20 mg PO AT BEDTIME January 11, 2022 12:00am August 04, 2023 3:55pm cholesterol Start: 01-05-2022 End: 04-15-2023 take 1 tablet by mouth once daily at bedtime for hyperlipidemia atorvastatin (LIPITOR) 40 mg tablet Indications: Hyperlipidemia, mixed Take 1 tablet by mouth daily at bedtime. For cholesterol. 30 tablet 11 01/05/2022 04/15/2023 Discontinued (Other) Start: 09-07-2021 End: 01-05-2022 take 1 tablet by mouth once daily at bedtime for hyperlipidemia atorvastatin (LIPITOR) 20 mg tablet Indications: Hyperlipidemia, mixed Take 1 tablet by mouth daily at bedtime. For cholesterol. 30 tablet 5 09/07/2021 01/05/2022 Discontinued Comment on above: Take 1 tablet by marie th daily at bedtime. For cholesterol. azelastine hydrochloride 0.137 mg/actuat metered dose nasal spray (20 sources) Histamine-1 Receptor Antagonist Start: 2 End: 3 take 1 spray(s) nasal route twice daily azelastine (ASTELIN) 0.1% nasal spray Indications: PND (post-nasal drip) Use 1 [place] in each nostril twice daily. 6 mL 1 09/07/2021 04/15/2023 Discontinued (Other) Comment on above: Use 1 [place] in each nostril twice daily. Blood Pressure Monitor (20 sources) Start: End: Blood Pressure Monitor 1 Each once daily. 1 Kit 1 01/19/2021 07/26/2024 Discontinued (Duplicate Entry) Start: 01-19-2021 Blood Pressure Monitor 1 Each once daily. 1 Kit 1 01/19/2021 Active Start: 01-16-2021 Blood Pressure Monitor Indications: Hypertension, essential EXLARGE BLOOD PRESSURE CUFF MONITOR KIT checking bp 4 times daily 1 Kit 01/16/2021 Active Start: 01-16-2021 Blood Pressure Monitor Indications: Hypertension, essential EXLARGE BLOOD PRESSURE CUFF MONITOR KIT checking bp 4 times daily 1 Kit 0 01/16/2021 Active Comment on above: 1 Each once daily. EXLARGE BLOOD PRESSU RE CUFF MONITOR KIT checking bp 4 times daily calcitriol 0.79625 mg oral capsule (20 sources) Vitamin D3 Analog Start: 12-20-2021 End: 08-19-2023 take 1 capsule by mouth once daily calcitriol (ROCALTROL) 0.25 mcg capsule Indications: Low vitamin D level Take 1 capsule by mouth once daily. 30 capsule 5 04/15/2023 08/19/2023 Discontinued Comment on above: Take 1 capsule by [facility] once daily. carvedilol 12.5 mg oral tablet (20 sources) alpha-Adrenergic Tanika, beta-Adrenergic Tanika Start: 04-29-2024 End: 04-29-2025 take 1 tablet by mouth twice daily carvedilol (COREG) 12.5 mg tablet Indications: Primary hypertension Take 1 tablet by mouth two times a day. 180 tablet 3 04/29/2024 03/01/2025 Discontinued (Discontinued by another Health Care Provider) Start: 04-15-2023 End: 04-29-2024 take 1 tablet by mouth twice daily carvedilol (COREG) 3.125 mg tablet Indications: Primary hypertension Take 1 tablet by mouth twice daily. 60 tablet 5 04/15/2023 04/29/2024 Discontinued Start: 01-02-2022 End: 08-04-2023 take 2 tablets by mouth twice daily Carvedilol 3.125 mg tablet Discontinued 6.25 mg PO TWICE A DAY January 02, 2022 12:00am August 04, 2023 3:55pm bp Start: 01-02-2022 End: 08-04-2023 take 6.25 mg by mouth twice daily Carvedilol Discontinued 6.25 MG PO TWICE A DAY January 01, 2022 11:00pm August 04, 2023 2:55pm Start: 02-19-2021 End: 04-15-2023 take 1 tablet by mouth twice daily carvedilol (COREG) 6.25 mg tablet Take 1 tablet by mouth twice daily. 180 tablet 3 02/19/2021 04/15/2023 Discontinued (Other) Comment on above: Take 1 tablet by marie twice daily. cholecalciferol 0.05 mg oral capsule (14 sources) Vitamin D Start: 01-12-20 End: 08-04-20 take 1 capsule by mouth once daily Cholecalciferol (Vitamin D3) 50 mcg (2,000 unit) capsule Discontinued 50 ug PO DAILY January 11, 2022 12:00am August 04, 2023 3:55pm supplement cholecalciferol 2000 unt / soy protein isolate 64 mg oral tablet (20 sources) Vitamin D Start: 09-07-19 End: 04-15-20 Cholecalciferol-Soy Isoflavone 2,000-64 unit-mg tab Indications: Vitamin D deficiency Take 2,000 Units by mouth once daily. 90 tablet 3 09/07/2021 04/15/2023 Discontinued (Other) Comment on above: Take 2,000 Units by mouth once daily. FLUoxetine 20 mg oral capsule (15 sources) Serotonin Reuptake Inhibitor Start: 10-22-19 End: 11-19-19 take 1 capsule by mouth once daily Fluoxetine 20 MG capsule Discontinued 20 mg PO DAILY October 22, 2016 1:00am November 18, 2017 8:32am gabapentin 400 mg oral capsule (20 sources) Anti-epileptic Agent Start: 02-23-20 End: 05-30-20 take 1 capsule by mouth three times daily Gabapentin 400 mg capsule Discontinued 400 mg PO THREE TIMES A DAY January 11, 2022 12:00am August 04, 2023 3:55pm pain Start: 03-30-2020 End: 09-07-2021 take 1 capsule by mouth three times daily gabapentin (NEURONTIN) 300 mg capsule Indications: Fibromyalgia Take 1 capsule by mouth three times daily for 90 days. 90 capsule 5 08/16/2020 09/07/2021 Discontinued (Duplicate Entry) Start: 01-09-2020 End: 05-17-2020 take 1 capsule by mouth twice daily at mealtime Gabapentin 300 MG capsule Discontinued 300 mg PO TWICE DAILY WITH MEALS January 09, 2020 12:00am May 17, 2020 11:12am Comment on above: Take 1 capsule by mo ut three times daily for 90 days. Take 1 capsule by mo ut three times a day for 90 days. ibuprofen 800 mg oral tablet (1 source) Nonsteroidal Anti-inflammatory Drug Start: End: take 1 tablet by mouth every eight hours as needed ibuprofen (MOTRIN) 800 mg tablet Take 1 tablet by mouth every 8 hours as needed (FOR PAIN. TAKE WITH FOOD). 20 tablet 1 05/10/2019 12/11/2020 Discontinued (Course of therapy completed) levoFLOXacin 750 mg oral tablet (15 sources) Quinolone Antimicrobial Start: End: take 1 tablet by mouth once daily Levofloxacin 750 MG tablet Discontinued 750 mg PO DAILY 10 July 28, 2019 1:00am May 17, 2020 11:10am LORazepam 0.5 mg oral tablet (15 sources) Benzodiazepine Start: 017 End: take 1 tablet by mouth three times daily Lorazepam 0.5 MG tablet Discontinued 0.5 mg PO THREE TIMES A DAY October 23, 2016 1:00am April 27, 2018 8:23pm anxiety magnesium oxide 400 mg oral tablet (2 sources) Start: End: take 1 tablet by mouth once daily magnesium oxide (MAG-OX) 400 mg (241.3 mg magnesium) tablet Indications: Headache, unspecified headache type Take 1 tablet by mouth once daily. 30 tablet 5 12/07/2020 05/21/2021 Discontinued (Discontinued by Patient) metoclopramide 10 mg oral tablet (20 sources) Dopamine-2 Receptor Antagonist Start: End: take 1 tablet by mouth every six hours as needed for nausea and vomiting Metoclopramide Hcl (Reglan) 10 mg tablet Discontinued 10 mg PO EVERY 6 HOURS as needed for nausea and vomiting 14 0 November 14, 2022 12:00am August 04, 2023 3:55pm Start: 07-10-2022 End: 08-04-2023 take 1 tablet by mouth three times daily Metoclopramide Hcl 5 mg tablet Discontinued 5 mg PO THREE TIMES A DAY July 10, 2022 4:44pm August 04, 2023 3:55pm nausea Start: 05-01-2022 take 5 mg by mouth t hree times daily Metoclopramide Hcl Active 5 MG PO THREE TIMES A DAY May 01, 2022 12:00am Start: 04-26-2022 Metoclopramide Hcl Active 5 MG PO .q8 90 April 26, 2022 12:00am administer 30 minutes before meals Start: 01-09-2020 End: 03-02-2020 take 1 tablet by mouth four times daily as needed for nausea Metoclopramide Hcl 10 MG tablet Discontinued 10 mg PO 4 TIMES DAILY as needed for Nausea January 09, 2020 12:00am March 02, 2020 11:18am naproxen 500 mg oral tablet (20 sources) Nonsteroidal Anti-inflammatory Drug Start: 01-02-2022 End: 08-15-2023 take 1 tablet by mouth twice daily as needed for pain Naproxen (Naprosyn) 500 mg tablet Discontinued 500 mg PO TWICE A DAY as needed for pain January 02, 2022 12:00am August 04, 2023 3:55pm Comment on above: Take 1 tablet by marie th twice daily with meals. ondansetron 4 mg disintegrating oral tablet (20 sources) Serotonin-3 Receptor Antagonist Start: 01-02-2022 End: 08-04-2023 take 1 tablet by mouth every eight hours as needed for nausea and vomiting Ondansetron 4 mg tablet,disintegr ating Discontinued 4 mg PO Q8H as needed for nausea and vomiting January 02, 2022 12:00am August 04, 2023 3:56pm Start: 12-18-2021 End: 12-18-2021 ondansetron 4 mg injection ( ZOFRAN) Start: 07-28-2019 End: 03-02-2020 take 1 tablet by mouth every eight hours as needed for nausea Ondansetron 4 MG tablet Discontinued 4 mg PO EVERY 8 HOURS NEEDED as needed for Nausea July 28, 2019 1:00am March 02, 2020 11:17am Start: 10-13-2017 End: 11-18-2017 take 1 tablet by mouth every eight hours as needed for nausea Ondansetron Hcl 8 MG tablet Discontinued 8 mg PO EVERY 8 HOURS NEEDED as needed for Nausea October 13, 2017 1:00am November 18, 2017 8:33am Start: 02-18-2014 End: 03-31-2014 take 1 tablet by mouth every eight hours as needed for nausea Ondansetron 4 MG tablet Discontinued 4 mg PO EVERY 8 HOURS NEEDED as needed for Nausea February 18, 2014 12:00am March 31, 2014 3:00pm pantoprazole 40 mg delayed release oral tablet (11 sources) Proton Pump Inhibitor Start: 05-03-2022 End: 08-04-2023 take 1 tablet by mouth once daily Pantoprazole 40 mg Tablet,Delayed Release (Dr/Ec) Discontinued 40 mg PO DAILY 30 May 03, 2022 12:00am August 04, 2023 3:56pm pravastatin sodium 20 mg oral tablet (1 source) HMG-CoA Reductase Inhibitor Start: 02-04-2020 End: 12-11-2020 take 1 tablet by mouth once daily at bedtime pravastatin (PRAVACHOL) 20 mg tablet Indications: Hyperlipidemia, mixed Take 1 tablet by mouth daily at bedtime. 30 tablet 5 02/04/2020 12/11/2020 Discontinued (Allergic response) prochlorperazine 10 mg oral tablet (20 sources) Phenothiazine Start: 04-25-2022 End: 09-04-2022 take 1 tablet by mouth every six hours as needed prochlorperazine (COMPAZINE) 10 mg tablet Take 1 tablet by mouth every 6 hours as needed. 30 tablet 2 04/25/2022 09/04/2022 Discontinued Start: 01-29-2022 take 1 tablet by marie every six hours as needed prochlorperazine (COMPAZINE) 10 mg tablet Take 1 tablet by mouth every 6 hours as needed. 30 tablet 2 01/29/2022 Active Comment on above: Take 1 tablet by marie every 6 hours as needed. repaglinide 2 mg oral tablet (15 sources) Glinide Start: 12-04-19 End: 12-26-19 Repaglinide (Prandin) 2 mg tablet Discontinued 2 mg PO THREE TIMES A DAY 180 December 03, 2017 12:00am December 25, 2017 5:46pm administer within 30 minutes of a meal or snack. Begin with 1/2 tablet for meals, may increase to 1 pill. riboflavin 400 mg oral tablet (3 sources) Start: 02-04-20 End: 11-23-19 take 1 tablet by mouth once daily riboflavin, vitamin B2, 400 mg tab Indications: Headache, unspecified headache type Take 1 tablet by mouth once daily. 30 tablet 5 02/04/2020 11/22/2021 Discontinued (Course of therapy completed) Comment on above: Take 1 tablet by marie once daily. 72 hr scopolamine 0.0139 mg/hr transdermal system (20 sources) Anticholinergic Start: 01-12-20 End: 04-26-20 Scopolamine Base 1 mg over 3 days patch 3 day Discontinued 1 NMA TD Every 3 Days as needed for Nausea January 11, 2022 12:00am April 26, 2022 11:22am Start: 01-11-2022 End: 04-26-2022 Scopolamine Base Discontinue d 1 PATCH TD Q3D January 10, 2022 11:00pm April 26, 2022 10:22am Start: 09-07-2021 End: 02-11-2022 scopolamine (TRANSDERM-SCOP) patch 1.5 mg/72 hr (delivers 1 mg over 3 days) Indications: Chronic nausea Apply 1 Patch as directed every 72 hours. Apply patch to skin behind ear 4hrs prior to travel. 10 Patch 1 02/11/2022 Active Comment on above: Apply 1 Patch as dir ected every 72 hours. Apply patch to skin behind ear 4hrs prior to travel. tiZANidine 4 mg oral tablet (2 sources) Central alpha-2 Adrenergic Agonist Start: 0 End: 1 take 1 tablet by mouth every eight hours as needed tiZANidine (ZANAFLEX) 4 mg tablet Indications: Pain, arm, left Take 1 tablet by mouth every 8 hours as needed. Do not use with flexeril 20 tablet 1 12/08/2020 05/21/2021 Discontinued (Discontinued by Patient) topiramate 50 mg oral tablet (20 sources) Start: 4 End: 5 take 1 tablet by mouth twice daily topiramate (TOPAMAX) 50 mg tablet Take 1 tablet by mouth two times a day. 60 tablet 5 07/26/2024 03/01/2025 Discontinued (Discontinued by another Health Care Provider) Start: 04-29-2024 End: 10-26-2024 take 1 tablet by mouth twice daily topiramate (TOPAMAX) 25 mg tablet Indications: Migraine with aura and without status migrainosus, not intractable Take 1 tablet by mouth two times a day. 60 tablet 5 04/29/2024 07/26/2024 Discontinued Problems Active Problems Problem Classification Problem Date Documented Date Episodic/Chronic Abdominal pain (1 source) Generalized abdominal pain; Translations: [Generalized abdominal pain] Episodic Administrative/social admission (1 source) Finding related to ability to use transport; Translations: [Other problems related to care provider dependency] 03-13-2023 Episodic Anxiety disorders (20 sources) Panic disorder without agoraphobia; Translations: [Panic disorder [episodic paroxysmal anxiety]] 05-25-2008 Chronic Chronic obstructive pulmonary disease and bronchiectasis (20 sources) Acute exacerbation of chronic obstructive airways disease; Translations: [Chronic obstructive pulmonary disease with (acute) exacerbation] Onset: 11-30-2015 Resolved: 01-05-2022 Chronic Diabetes mellitus with complications (20 sources) Type II diabetes mellitus uncontrolled; Translations: [Type 2 diabetes mellitus with hyperglycemia] Onset: 06-30-2020 06-30-2020 Chronic Diabetes mellitus without complication (20 sources) Type 2 diabetes mellitus without complication; Translations: [Type 2 diabetes mellitus without complications] Onset: 03-01-2025 Chronic Comment on above: Wore sari sensor fo r two weeks . No low BG and no night time hypoglycemia. will increase her long acting insulin as well as prandin. She is given written instructions on how to make incremental increases every 3 -5 days but no increases if she has any BG below 150. Diseases of white blood cells (20 sources) Leukocytosis; Translations: [Elevated white blood cell count, unspecified] Onset: 01-05-2022 Chronic Disorders of lipid metabolism (20 sources) Mixed hyperlipidemia; Translations: [Mixed hyperlipidemia] Onset: 02-01-2019 02-01-2019 Chronic Esophageal disorders (20 sources) Gastroesophageal reflux disease; Translations: [Gastro-esophageal reflux disease without esophagitis] Onset: 07-22-2022 08-04-2023 Chronic Essential hypertension (20 sources) Essential hypertension; Translations: [Essential (primary) hypertension] Onset: 01-08-2021 01-08-2021 Chronic Comment on above: CONTROLLED ON MED Gastritis and duodenitis (20 sources) Chronic gastritis; Translations: [Unspecified chronic gastritis without bleeding] Onset: 09-07-2021 09-07-2021 Chronic Genitourinary symptoms and ill-defined conditions (20 sources) Urinary incontinence; Translations: [Unspecified urinary incontinence] Onset: 04-16-2023 Chronic Headache; including migraine (20 sources) Migraine with aura; Translations: [Migraine with aura, not intractable, without status migrainosus] 09-07-2021 Chronic Hepatitis (20 sources) Nonalcoholic steatohepatitis; Translations: [Nonalcoholic steatohepatitis (DENNY)] Onset: 06-14-2022 08-15-2023 Chronic Immunizations and screening for infectious disease (3 sources) Suspected disease caused by 2019-nCoV; Translations: [Suspected COVID-19 virus infection] Episodic Malaise and fatigue (3 sources) Fatigue; Translations: [Other fatigue] Onset: 06-22-2025 Episodic Mood disorders (20 sources) Depressive disorder; Translations: [Other specified depressive episodes] Onset: 07-23-2018 Resolved: 01-05-2022 05-25-2008 Chronic Mycoses (4 sources) Candidiasis; Translations: [Candidiasis, unspecified] Onset: 03-29-2025 Episodic Nausea and vomiting (20 sources) Nausea; Translations: [Nausea] Episodic Neoplasms of unspecified nature or uncertain behavior (1 source) 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; Translations: [Neoplasm of uncertain behavior of skin] 04-29-2024 Episodic Noninfectious gastroenteritis (3 sources) Gastroenteritis; Translations: [Noninfective gastroenteritis and colitis, unspecified] Onset: 05-06-2025 05-06-2025 Episodic Nutritional deficiencies (6 sources) Vitamin D deficiency; Translations: [Vitamin D deficiency, unspecified] Onset: 03-01-2025 04-15-2023 Chronic Nutritional deficiencies (2 sources) Cobalamin deficiency; Translations: [Deficiency of other specified B group vitamins] Onset: 05-06-2025 05-06-2025 Episodic Other aftercare (1 source) Post-discharge follow-up; Translations: [Encounter for follow-up examination after completed treatment for conditions other than malignant neoplasm] Episodic Other bone disease and musculoskeletal deformities (1 source) Cartilage disorder; Translations: [Disorder of cartilage, unspecified] Episodic Other connective tissue disease (20 sources) Fibromyalgia; Translations: [Fibromyalgia] 05-30-2009 Episodic Other injuries and conditions due to external causes (13 sources) Systemic inflammatory response syndrome; Translations: [Systemic inflammatory response syndrome (SIRS) of non-infectious origin without acute organ dysfunction] 01-30-2022 Episodic Other injuries and conditions due to external causes (8 sources) Systemic inflammatory response syndrome (SIRS) of non-infectious origin without acute organ dysfunction; Translations: [Systemic inflammatory response syndrome, unspecified] Episodic Other injuries and conditions due to external causes (1 source) Other specified injuries of thorax, initial encounter; Translations: [Contusion of rib on left side] 05-23-2025 Episodic Other lower respiratory disease (2 sources) Cough; Translations: [Subacute cough] 09-04-2023 Episodic Other lower respiratory disease (1 source) Cough; Translations: [Acute cough] 2025 Episodic Other nervous system disorders (12 sources) Disorder of brain; Translations: [Encephalopathy, unspecified] 05-04-2022 Chronic Other nervous system disorders (8 sources) Encephalopathy, unspecified; Translations: [Encephalopathy, unspecified] Chronic Other nutritional; endocrine; and metabolic disorders (20 sources) Obese class II; Translations: [Obesity, unspecified] Onset: 02-29-2020 02-29-2020 Chronic Other nutritional; endocrine; and metabolic disorders (2 sources) Hypercalcemia; Translations: [Hypercalcemia] Chronic Other nutritional; endocrine; and metabolic disorders (1 source) Weight loss; Translations: [Abnormal weight loss] 04-15-2023 Episodic Other screening for suspected conditions (not mental disorders or infectious disease) (16 sources) Decreased vitamin D; Translations: [Other specified abnormal findings of blood chemistry] Onset: 03-29-2025 Episodic Other upper respiratory infections (15 sources) Viral upper respiratory tract infection; Translations: [Acute upper respiratory infection, unspecified] 12-15-2018 Episodic Pneumonia (except that caused by tuberculosis or sexually transmitted disease) (4 sources) Community acquired pneumonia; Translations: [Pneumonia, unspecified organism] 11-14-2022 Episodic Residual codes; unclassified (15 sources) Tobacco user; Translations: [Tobacco use] 01-11-2019 Episodic Residual codes; unclassified (1 source) Tobacco use and exposure - finding; Translations: [Tobacco use] Episodic Residual codes; unclassified (1 source) Needs assistance with community resources; Translations: [Other specified health status] 03-13-2023 Episodic Residual codes; unclassified (1 source) Postmenopausal state; Translations: [Asymptomatic menopausal state] 04-15-2023 Episodic Residual codes; unclassified (3 sources) Tobacco use; Translations: [Tobacco use disorder] Onset: 03-29-2025 08-04-2023 Episodic Residual codes; unclassified (1 source) Menopause present; Translations: [Asymptomatic menopausal state] 07-26-2024 Episodic Septicemia (except in labor) (4 sources) Sepsis; Translations: [Sepsis, unspecified organism] Episodic Spondylosis; intervertebral disc disorders; other back problems (20 sources) Degeneration of cervical intervertebral disc; Translations: [Other cervical disc degeneration, unspecified cervical region] 05-25-2008 Chronic Spondylosis; intervertebral disc disorders; other back problems (15 sources) Chronic back pain ; Translations: [Dorsalgia, unspecified] 01-11-2019 Episodic Substance-related disorders (20 sources) Tobacco dependence, continuous; Translations: [Nicotine dependence, unspecified, with unspecified nicotine-induced disorders] Onset: 05-25-2008 Chronic Unclassified (1 source) Obesity, Class II, BMI 35-39.9; Translations: [Obesity, Class II, BMI 35-39.9] Onset: 02-29-2020 Past or Other Problems Problem Classification Problem Date Documented Da te Episodic/Chronic Acute bronchitis (2 sources) Acute bronchitis; Translations: [Acute bronchitis, unspecified] Onset: 03-10-2025 03-10-2025 Episodic Genitourinary symptoms and ill-defined conditions (20 sources) History of recurrent urinary tract infection; Translations: [Personal history of urinary (tract) infections] Onset: 11-30-2015 11-30-2015 Episodic Nonspecific chest pain (20 sources) Chest discomfort; Translations: [Other chest pain] Onset: 12-11-2020 Resolved: 01-05-2022 12-11-2020 Episodic Other connective tissue disease (3 sources) Fibromyalgia; Translations: [Myalgia and myositis, unspecified] Onset: 05-30-2009 08-04-2023 Episodic Other hematologic conditions (20 sources) Secondary polycythemia; Translations: [Secondary polycythemia] Onset: 09-10-2017 09-10-2017 Episodic Other lower respiratory disease (20 sources) Chronic cough; Translations: [Chronic cough] Onset: 01-04-2020 Resolved: 01-05-2022 01-04-2020 Episodic Other lower respiratory disease (20 sources) Dyspnea; Translations: [Shortness of breath] Onset: 08-23-2020 Resolved: 01-05-2022 11-06-2020 Episodic Other skin disorders (20 sources) Eruption; Translations: [Rash and other nonspecific skin eruption] Onset: 01-01-2021 Resolved: 01-05-2022 01-01-2021 Episodic Residual codes; unclassified (20 sources) Persistent insomnia; Translations: [Insomnia, unspecified] Onset: 05-25-2008 Resolved: 01-05-2022 05-25-2008 Episodic Unclassified (12 sources) bladder sling 03-14-2022 Unclassified (1 source) Patient encounter status 02-15-2025 Urinary tract infections (20 sources) Urinary tract infectious disease; Translations: [Urinary tract infection, site not specified] Onset: 03-01-2025 Episodic Results Test Name Value Interpretation Reference Range Facility Urine Cultureon 05-18-2025 [facility] Copy of report sent to Infection Control Printer [id number] 05/18/25 French MCDUFFIE. Urine Culture RESULTS CALLED TO JANET SMYTH RN AND PRINTED TO [id number] 05/18/25 09Colton Salguero. REPORT READ BACK BY SAME . Urine Culture ESBL Escherichia coli [place] Count >100,000 MARKER ESBL producing OrganismA MARKER ESBL producing OrganismA Ampicillin Islt STEPHEN >=32 R Ampicillin+Sulbac Islt STEPHEN >=32 Cefepime Islt STEPHEN 0.5 S Eravacycline Islt STEPHEN <=0.12 S cefTRIAXone Islt STEPHEN 4 R Ciprofloxacin Islt STEPHEN >=4 R B-Lactamase Extended Susc Islt POS Gentamicin Islt STEPHEN <=1 S Imipenem Islt STEPHEN <=0.25 S levoFLOXacin Islt STEPHEN >=8 R Meropenem Islt STEPHEN <=0.25 S Nitrofurantoin Islt STEPHEN <=16 S Pip+Tazo Islt STEPHEN 8 S Tobramycin Islt STEPHEN >=16 R TMP SMX Islt STEPHEN >=320 R Normal [facility] Comment on above: Performed By: #### M 100.2200 #### [facility] [place], [address] [facility] 05-17-2025 [facility] Telephone (INTMWS) IVET VALERO ([id number]) 1955 F Date Time Provider Department 05/17/25 RICCI COLE INTMWS During your visit today, we recorded the following information about you: Sue Quinonez RN 05/17/2025 12:02 PM Signed Patient calls to request prescription for pain medication. Patient reports she was to [facility] ER on Friday for fall with severe pain to left side/ribs. Patient reports she thinks ER did x-rays but is not sure of the results. Reports she received a Toradol injection. Offered an ER follow up appointment. Patient reports that she is not able to come in for an appointment as she is not able to get around at all. Patient reports she has tried acetaminophen, Advil, and motrin with no relief. Asked if patient had someone that could help her get in for an appointment and patient reports she is in too much pain and can't move. Recommended going back to the ER if she is not able to come in for an appointment. Patient states thanks a lot and disconnects the line. NITIN Crawford William J, MD 05/17/2025 12:05 PM Signed Agree/ would need seen by us to prescribe anything like that. Ana Lam MA 05/17/2025 12:14 PM Signed Patient notified and advised can not come in. Ana Lam MA Allergies As of Date: 05/17/2025 Noted Allergy Reaction CHANTIX (VARENICLINE) 01/22/2019 1 - Mental Status Change PENICILLINS 05/25/2008 4 - Hives SULFA (SULFONAMIDE ANTIBIOTICS) 09/19/2016 2 - Rash 14 - Other: See Comments Comments: Blisters and sore in throat Date Reviewed: 03/29/2025 Reviewed by: Marylu Yeung MA - Fully Assessed Reason for Visit: Patient Question [1477] Prescriptions as of 05/17/2025 - omeprazole (PRILOSEC) 40 mg capsule Take 1 capsule by mouth once daily. - promethazine (PHENERGAN) 25 mg tablet Take 1 tablet by mouth every 6 hours as needed for nausea/vomiting. - promethazine (PHENERGAN) 25 mg suppository 1 suppository by RECTAL route every 6 hours as needed. - Insulin [place], Disposable, (BD ULTRA-FINE MINDY PEN NEEDLE) 32 gauge x 5/32 Use one needle for each dose, 4 times daily. (4mm) - albuterol (PROVENTIL) 2.5 mg /3 mL (0.083 %) nebulizer solution Use 3 mL via nebulizer every 4 hours as needed for wheezing/shortness of breath. Use over 5-15minutes. - albuterol HFA (VENTOLIN HFA) 90 mcg/actuation inhaler Inhale 2 puffs as instructed every 4 hours as needed. - insulin glargine U-300 conc (TOUJEO) 300 unit/mL (1.5 mL) Inject 80 Units subcutaneously every morning. E11.9 Dispense 2 boxes of 3 pens. - fluticasone-umeclidin- vilanter (TRELEGY ELLIPTA) 200-62.5-25 mcg inhalation powder Inhale 1 puff as instructed once daily. - lisinopril 2.5 mg tablet Take 1 tablet by mouth once daily. For kidney protection - ergocalciferol 50,000 unit capsule (VITAMIN D2, DRISDOL) Take 1 capsule by mouth every other week. - Cyanocobalamin 1,000 mcg TbER Take 1 tablet by mouth once daily. B12 - nystatin (MYCOSTATIN) powder Apply 1 application to affected area four times daily. - Blood-Glucose Meter monitoring kit Glucose Meter of Choice - Kit - Dx: Type 2 DM - Uncontrolled E11.65 - blood sugar diagnostic (FREESTYLE LITE STRIPS) test strip Test blood sugar(s) 3-4 times daily. Dx: Type 2 DM - Uncontrolled E11.65 Insulin: Yes - rosuvastatin (CRESTOR) 5 mg tablet Take 1 tablet by mouth once daily. - gabapentin (NEURONTIN) 400 mg capsule Take 1 capsule by mouth three times a day for 90 days. - Lancets Test blood sugar(s) 3-4 times daily. Dx: Type 2 DM-Controlled Insulin: Yes - blood sugar diagnostic (BLOOD GLUCOSE TEST) test strip Test blood sugar(s) 3-4 times daily. Dx: Type 2 DM - Controlled E11.9 Insulin: Yes - insulin lispro (HUMALOG KWIKPEN INSULIN) 100 unit/mL Inject 12 Units subcutaneously three times a day before meals. And sliding scale up to 38 units tid. - busPIRone (BUSPAR) 10 mg tablet Take 1 tablet by mouth three times daily. - escitalopram oxalate (LEXAPRO) 20 mg tablet Take 10 mg by mouth once daily. - buPROPion XL (WELLBUTRIN XL) 150 mg 24 hr tablet Take 300 mg by mouth once daily. - Insulin [place], Disposable, 32 gauge x 5/16 ndle Use four times daily with insulin - QUEtiapine XR (SEROQUEL XR) 300 mg 24 hr tablet Take 300 mg by mouth daily at bedtime. - Blood Pressure Monitor EXLARGE BLOOD PRESSURE CUFF MONITOR KIT checking bp 4 times daily Problem List As Of Date 05/17/2025 Noted Resolved TOBACCO USE DISORDER [F17.200] CERVICAL DISC DEGEN [M50.30] Chronic bronchitis (HCC) [J42] Depressive disorder, not elsewhere classified [* 01/05/2022 Persistent disorder of initiating or maintainin*05/25/2008 01/05/2022 Migraine with aura [G43.109] PANIC DISORDER WITHOUT AGORAPHOBIA [F41.0] Fibromyalgia [M79.7] History of recurrent UTIs [Z87.440] 11/30/2015 Uncontrolled type 2 diabetes mellitus (more content not included)... Normal [facility] Absolute lymphocyte countOrd ered By: Bhavin Quinn on 05-15-2025 Lymphocytes Auto (Unsp spec) [#/Vol] 3.26 10*3/uL 0.83-4.51 [facility] Absolute neutrophil countOrd ered By: Bhavin Quinn on 05-15-2025 Neutrophils (Bld) [#/Vol] 10.8 10*3/uL High 2.0-7.7 [facility] Anion gap in Serum or Plasma Ordered By: Bhavin Quinn on 05-15-2025 Anion gap [Moles/Vol] 13 mmol/L - [facility] Automated lymphocyte count a s percentage of total leukocytesOrdered By: Bhavin Quinn on 05-15-2025 Lymphocytes/100 WBC Auto (Unsp spec) 21.1 % [facility] BUN/creatinine ratioOrdered By: Bhavin Quinn on 05-15-2025 Urea nitrogen/Creatinine [Mass ratio] 10.0 mg/mg - [facility] Basic Metabolic Profile (BMP )on 05-15-2025 BUN/CRE 10.0 RATIO Normal 06-13 [facility] Comment on above: Performed By: #### L 100.0100, L501.5200, L501.9520, L500.2500 #### [facility] [address] [place], [address] Calcium [Mass/Vol] 9.2 mg/dL Normal 7.6-11.0 [facility] Comment on above: Performed By: #### L 100.0100, L501.5200, L501.9520, L500.2500 #### [facility] [address] [place], [address] Chloride [Moles/Vol] 105 mmol/L Normal 98-108 [facility] Comment on above: Performed By: #### L 100.0100, L501.5200, L501.9520, L500.2500 #### [facility] [address] [place], [address] CO2 [Moles/Vol] 23.7 mmol/L Normal 21.0-32.0 [facility] Comment on above: Performed By: #### L 100.0100, L501.5200, L501.9520, L500.2500 #### [facility] [address] [place], [address] Creatinine [Mass/Vol] 0.68 mg/dL Low 0.70-1.20 [facility] Comment on above: Performed By: #### L 100.0100, L501.5200, L501.9520, L500.2500 #### [facility] [address] [place], [address] ECRCL 85.13 ml/min Normal 50-250 [facility] Comment on above: Performed By: #### L 100.0100, L501.5200, L501.9520, L500.2500 #### [facility] [address] [place], [address] GAP 13 Normal 5-15 [facility] Comment on above: Performed By: #### L 100.0100, L501.5200, L501.9520, L500.2500 #### [facility] [address] [place], [address] GFR/1.73 sq M.predicted among non-blacks MDRD (S/P/Bld) [Vol rate/Area] 95 mL/min/{1.73_m2} Normal >60 [facility] Comment on above: Result Comment: mL/m in/1.73m2 CKD-EPI Creatinine Equation (2020) Performed By: #### L 100.0100, L501.5200, L501.9520, L500.2500 #### [facility] [address] [place], [address] Glucose [Mass/Vol] 163 mg/dL High 70-99 [facility] Comment on above: Performed By: #### L 100.0100, L501.5200, L501.9520, L500.2500 #### [facility] [address] [place], [address] Potassium [Moles/Vol] 3.7 mmol/L Normal 3.3-5.1 [facility] Comment on above: Result Comment: Hemo lysis present, Results??could be affected. ?? Performed By: #### L 100.0100, L501.5200, L501.9520, L500.2500 #### [facility] [address] [place], [address] Sodium [Moles/Vol] 142 mmol/L Normal 133-145 [facility] Comment on above: Performed By: #### L 100.0100, L501.5200, L501.9520, L500.2500 #### [facility] [address] [place], [address] Urea nitrogen [Mass/Vol] 7 mg/dL Normal 4-19 [facility] Comment on above: Performed By: #### L 100.0100, L501.5200, L501.9520, L500.2500 #### [facility] [address] [place], [address] Basophil percentageOrdered B y: Bhavin Quinn on 05-15-2025 Basophils/100 WBC (Bld) 0.4 % 0-1 [facility] Bilirubin Test strip Ql (U)O rdered By: Bhavin Quinn on 05-15-2025 Bilirubin Ql (U) Negative Negative [facility] Brain/Head without Contrasto n 05-15-2025 Brain/Head without Contrast [facility] Imaging Services [address] [place] [address] Brain/Head without Contrast MR#: [id number] Acct: [id number] Name: IVET VALERO Rep #: [id number] : 1955 F 70 From: Tay Leon MD PCP: Dr. Ricci Cole MD Status: REG ER Study: Brain/Head without Contrast Date of Exam: 04/26 09/18 Exam# [id number] Ordering Dr: Bhavin Quinn DO PROCEDURE: BRAIN/HEAD WITHOUT CONTRAST 05/14/2025 REASON FOR EXAM: FALL TECHNIQUE: Procedure Code: CTBR Modality: CT Procedure: BRAIN/HEAD WITHOUT CONTRAST Coronal and Sagittal reconstruction series were provided. One or more dose reduction techniques were used (e.g., Automated exposure control, adjustment of the mA and/or kV according to patient size, use of iterative reconstruction technique. COMPARISON: 04/30/2022 FINDINGS: There is no extra-axial or intra-axial intracranial hemorrhage. No mass effect or midline shift is seen. Generalized intracranial volume loss and findings compatible with chronic microvascular white matter ischemia. There is normal [place]-white matter differentiation. The posterior fossa is grossly unremarkable. The skull is unremarkable. Visualized paranasal sinuses are clear. The mastoid air cells show normal translucency. CT/Brain/Head without Contrast IMPRESSION: 1. No intracranial hemorrhage. No mass effect or midline shift. 2. Chronic involutional and ischemic gliotic white matter changes. Reading Location: [facility] CC: Dr. Ricci Cole MD; Bhavin Quinn DO [employer]: Signed Normal [facility] CBC W/Diff, Automatedon 04-26 Absolute Lymph 3.26 X10 3/uL Normal 0.83-4.51 [facility] Comment on above: Performed By: #### L 100.0100, L501.5200, L501.9520, L500.2500 #### [facility] [address] [place], [address] Absolute Neut 10.8 X10 3/uL High 2.0-7.7 [facility] Comment on above: Performed By: #### L 100.0100, L501.5200, L501.9520, L500.2500 #### [facility] [address] [place], [address] Basophils/100 WBC (Bld) 0.4 % Normal 0-1 [facility] Comment on above: Performed By: #### L 100.0100, L501.5200, L501.9520, L500.2500 #### [facility] [address] [place], [address] Eosinophils/100 WBC (Bld) 0.5 % Normal 0-5 [facility] Comment on above: Performed By: #### L 100.0100, L501.5200, L501.9520, L500.2500 #### [facility] [address] [place], [address] Erythrocyte distribution width (RBC) [Ratio] 13.2 % Normal 11.6-14.6 [facility] Comment on above: Performed By: #### L 100.0100, L501.5200, L501.9520, L500.2500 #### [facility] [address] [place], [address] Hematocrit (Bld) [Volume fraction] 40.2 % Normal 37-47 [facility] Comment on above: Performed By: #### L 100.0100, L501.5200, L501.9520, L500.2500 #### [facility] [address] [place], [address] Hemoglobin (Bld) [Mass/Vol] 13.4 g/dL Normal 12.0-15.0 [facility] Comment on above: Performed By: #### L 100.0100, L501.5200, L501.9520, L500.2500 #### [facility] [address] [place], [address] IG% 0.700 Normal 0.0-0.9 [facility] Comment on above: Result Comment: IG% - Immature Granulocytes (promyelocytes, myelocytes and metamyelocytes) > 1% indicates that a LEFT SHIFT is Present. Performed By: #### L 100.0100, L501.5200, L501.9520, L500.2500 #### [facility] [address] [place], [address] Lymphocytes/100 WBC (Bld) 21.1 % Normal 19-41 [facility] Comment on above: Performed By: #### L 100.0100, L501.5200, L501.9520, L500.2500 #### [facility] [address] [place], [address] MCH (RBC) [Entitic mass] 30.7 pg Normal 27.0-32.0 [facility] Comment on above: Performed By: #### L 100.0100, L501.5200, L501.9520, L500.2500 #### [facility] [address] [place], [address] MCHC (RBC) [Mass/Vol] 33.3 g/dL Normal 32-36 [facility] Comment on above: Performed By: #### L 100.0100, L501.5200, L501.9520, L500.2500 #### [facility] [address] [place], [address] MCV (RBC) [Entitic vol] 92.2 fL Normal 81-99 [facility] Comment on above: Performed By: #### L 100.0100, L501.5200, L501.9520, L500.2500 #### [facility] [address] [place], [address] Monocytes/100 WBC (Bld) 7.4 % Normal 0-10 [facility] Comment on above: Performed By: #### L 100.0100, L501.5200, L501.9520, L500.2500 #### [facility] [address] [place], [address] Neutrophils/100 WBC (Bld) 69.9 % Normal 47-70 [facility] Comment on above: Performed By: #### L 100.0100, L501.5200, L501.9520, L500.2500 #### [facility] [address] [place], [address] Nucleated RBC (Bld) [#/Vol] 0 10*3/uL Normal 0-5 [facility] Comment on above: Performed By: #### L 100.0100, L501.5200, L501.9520, L500.2500 #### [facility] [address] [place], [address] Platelet mean volume (Bld) [Entitic vol] 9.7 fL Normal 6.2-12.0 [facility] Comment on above: Performed By: #### L 100.0100, L501.5200, L501.9520, L500.2500 #### [facility] [address] [place], [address] Platelets (Bld) [#/Vol] 285 10*3/uL Normal 150-450 [facility] Comment on above: Performed By: #### L 100.0100, L501.5200, L501.9520, L500.2500 #### [facility] [address] [place], [address] RBC (Bld) [#/Vol] 4.36 10*6/uL Normal 4.2-5.4 [facility] Comment on above: Performed By: #### L 100.0100, L501.5200, L501.9520, L500.2500 #### [facility] [address] [place], [address] RDW SD 45.2 fl High 35.1-43.9 [facility] Comment on above: Performed By: #### L 100.0100, L501.5200, L501.9520, L500.2500 #### [facility] [address] [place], [address] WBC (Bld) [#/Vol] 15.5 10*3/uL High 4.4-11.0 [facility] Comment on above: Performed By: #### L 100.0100, L501.5200, L501.9520, L500.2500 #### [facility] [address] [place], [address] Carbon dioxide, total [Moles /volume] in Central venous bloodOrdered By: Bhavin Quinn on 05-15-2025 CO2 [Moles/Vol] 23.7 mmol/L 21.0-32.0 [facility] Chest without Contraston Chest without Contrast [facility] Imaging Services [address] [place] [address] Chest without Contrast MR#: [id number] Acct: [id number] Name: IVET VALERO Rep #: [id number] : 1955 F 70 From: Tay Leon MD PCP: Dr. Ricci Cole MD Status: REG ER Study: Chest without Contrast Date of Exam: 05/15/25 Exam# [id number] Ordering Dr: Bhavin Quinn DO PROCEDURE: CHEST WITHOUT CONTRAST 05/14/2025 REASON FOR EXAM: ? LEFT RIB FX TECHNIQUE: Chest CT without contrast. Coronal and Sagittal reconstruction series were provided. One or more dose reduction techniques were used (e.g., Automated exposure control, adjustment of the mA and/or kV according to patient size, use of iterative reconstruction technique COMPARISON: Chest x-ray 08/04/2023 FINDINGS: Hardware: None. Lymph nodes: No enlarged mediastinal, hilar, or axillary lymph nodes. Heart and Vasculature: Not enlarged. No pericardial effusion. Thoracic aorta and pulmonary arteries have normal contours; noncontrast technique limits evaluation. Lungs and Airways: Bilateral dependent atelectasis. No definite focal consolidation or significant pulmonary mass. Airways are patent. Pleura: No pneumothorax or pleural effusion. Upper Abdomen: Left renal cyst measures 3.5 x 3.0 cm. Mild atrophy of the pancreas. Visualized upper abdomen otherwise unremarkable. Bones: Degenerative changes and kyphosis of the thoracic spine. CT/Chest without Contrast IMPRESSION: 1. No acute findings in the chest as imaged. 2. No rib fractures identified. 3. Left renal cyst measures 3.5 cm. Reading Location: [facility] CC: Dr. Ricci Cole MD; Bhavin Quinn DO [employer]: Signed Normal [facility] Chloride assayOrdered By: Yahaira Quinn on 05-15-2025 Chloride [Moles/Vol] 105 mmol/L 98-108 [facility] Emergency Department Summary on 05-15-2025 Emergency Department Summary [facility] Medical Records Department [address] [place] [address] Emergency Department Summary 05/15/25 MR#: [id number] Acct: [id number] Name: IVET VALERO Rep #: [id number] : 1955 70 From: Bhavin Quinn DO PCP: Dr. Ricci Cole MD Status:DEP ER Location: ED ADDENDUM by Dr. Rosalinda Parada DO on 05/19/25 at 0726 Urine culture grew greater than 100,000 per CFU per mL of ESBL E. coli. Will be treated with 1 week course of Macrobid. This is e-prescribed. Patient will be contacted and if she is having worsening symptoms, fever or other concerns instructed return to the emergency room. 05/19/25 07 Cosigner Signature (if applicable): cc: Dr. Ricci Cole MD * Signed HPI History of Present Illness Chief Complaint: Weakness Informant: patient Narrative Narrative: Patient is a 70-year-old female with past medical history of insulin-dependent diabetes hypertension hyperlipidemia COPD as well as anxiety and depression. She states she has been dealing with a recurrent UTI through her family doctor. She states she has taken multiple medications without symptom resolution. She states that today she is felt just generally weak and and this weakness has caused her to fall 4 times. She denies striking her head or any loss of consciousness or history of bleeding disorder or blood thinner use. She states that she tried to get up this evening and was too weak to do so and therefore with the worsening symptoms was brought to the hospital for evaluation [facility] Medical History Wears dentures Wears glasses Post-menopausal Anxiety History of steroid therapy Insulin dependent diabetes mellitus Arthritis High cholesterol Migraine headache Injury of head and neck Gastric reflux Smoker History of stress test Hypertension Cardiology follow-up encounter GERD (gastroesophageal reflux disease) Smoker Urinary tract infection UTI due to extended-spectrum beta lactamase (ESBL) producing Escherichia coli Secondary polycythemia Gastritis Panic disorder with agoraphobia Depression Diarrhea Leukocytosis Essential (primary) hypertension Frequent headaches Urinary incontinence Diabetes Gastroparesis Type 2 diabetes mellitus without complications Vision problem GI problem COPD (chronic obstructive pulmonary disease) Diabetes type 2, controlled Chronic bronchitis Chronic UTI Anxiety and depression Seasonal allergies Tobacco abuse COPD (chronic obstructive pulmonary disease) Fibromyalgia Home Medications ???Medication ???Instructions ???Recorded ???Last Taken ???Type insulin lispro 100 unit/mL See Protocol subcut TID diabetes 0 01/02/22 08/03/23 History subcutaneous pen (Humalog KwikPen (U-100) Insulin) quetiapine 300 mg tablet 300 mg PO QHS mood 01/11/22 History albuterol sulfate 90 mcg/actuation 90 inh inhalation Q4H PRN PRN so b 01/17/22 01/17/22 History aerosol inhaler bupropion HCl 150 mg 24 hr tablet, 150 mg PO DAILY mood 01/17/22 History extended release buspirone 10 mg tablet 20 mg PO TID mood 01/17/22 3 History fluticasone furoate 100 1 ea inhalation DAILY sob 01/17/22 08/04/23 History mcg-vilanterol 25 mcg/dose inhalation powder (Breo Ellipta) omeprazole 40 mg capsule,delayed 40 mg PO DAILY gerd 05/01/2208/04 History release insulin glargine U-300 conc 300 80 unit subcut DAILY diabetes 05/2508/03/23 History unit/mL (3 mL) subcutaneous pen (Toujeo Max U-300 SoloStar) escitalopram oxalate 20 mg tablet 20 mg PO DAILY mental health 07/2508/04/23 History promethazine 25 mg tablet 25 mg PO Q6H PRN nausea 08/04/23 U nknown History quetiapine 25 mg tablet 25 mg PO TID mental health 3 08/04/23 History Allergy/AdvReac Type Severity Reaction Status Date / Time Penicillins Allergy Hives Verified 05/15/25 00:25 Sulfa (Sulfonamide Allergy Hives Verified 05/15/25 00:25 Antibiotics) varenicline (From Chantix) Allergy Other Verified 05/15/25 00:25 Family History Brother Diabetes Hypertension Surgical History History of cardiac catheterization History of appendectomy H/O tubal ligation S/P ORIF (open reduction internal fixation) fracture bladder sling S/P complete hysterectomy Hx of cholecystectomy Social History Smoking Status: Current every day smoker tobacco type: cigarettes second hand exposure: Yes alcohol intake: never substance use type: does not use ROS ROS ED Constitutional Constitutional ED: Reports other Details: Positive fatigue ; Denies chills (more content not included)... Normal [facility] Eosinophil percentageOrdered By: Bhavin Quinn on 05-15-2025 Eosinophils/100 WBC (Bld) 0.5 % 0-5 [facility] Erythrocyte distribution wid th ratioOrdered By: Bhavin Quinn on 05-15-2025 Erythrocyte distribution width (RBC) [Ratio] 13.2 % 11.6-14.6 [facility] Erythrocyte distribution wid th standard deviationOrdered By: Bhavin Quinn on 05-15-2025 Erythrocyte distribution width (RBC) [Ratio] 45.2 fl High 35.1-43.9 [facility] Glomerular filtration rate ( GFR) estimation/1.73 sq m using serum, plasma, or whole bOrdered By: Bhavin Quinn on 05-15-2025 GFR/1.73 sq M.predicted among non-blacks MDRD (S/P/Bld) [Vol rate/Area] 95 mL/min/{1.73_m2} >60 [facility] Comment on above: mL/min/1.73m2 CKD-EP I Creatinine Equation (2020) Hematocrit Auto (Bld) [Volum e fraction]Ordered By: Bhavin Quinn on 05-15-2025 Hematocrit (Bld) [Volume fraction] 40.2 % 37-47 [facility] Hemoglobin measurementOrdere d By: Bhavin Quinn on 05-15-2025 Hemoglobin (Bld) [Mass/Vol] 13.4 g/dL 12.0-15.0 [facility] Immature granulocytes/100 WB C Auto (Bld)Ordered By: Bhavin Quinn on 05-15-2025 Immature granulocytes/100 WBC (Bld) 0.700 % 0.0-0.9 [facility] Comment on above: IG% - Immature Granu locytes (promyelocytes, myelocytes and metamyelocytes) > 1% indicates that a LEFT SHIFT is Present. Ketones Test strip Ql (U)Ord ered By: Bhavin Quinn on 05-15-2025 Ketones Ql (U) Negative Negative [facility] MCV (mean corpuscular volume ) determinationOrdered By: Bhavin Quinn on 05-15-2025 MCV (RBC) [Entitic vol] 92.2 fL 81-99 [facility] Magnesiumon 05-15-2025 Magnesium [Mass/Vol] 2.0 mg/dL Normal 1.5-2.2 [facility] Comment on above: Performed By: #### L 100.0100, L501.5200, L501.9520, L500.2500 #### [facility] Laboratory [address] [place] [address], [address] Magnesium measurement (mass/ volume)Ordered By: Bhavin Quinn on 05-15-2025 Magnesium (Unsp spec) [Mass/Vol] 2.0 mg/dL 1.5-2.2 [facility] Mean corpuscular hemoglobin (MCH) determinationOrdered By: Bhavin Quinn on 05-15-2025 MCH (RBC) [Entitic mass] 30.7 pg 27.0-32.0 [facility] Mean corpuscular hemoglobin concentration (MCHC) determinationOrdered By: Bhavin Quinn on 05-15-2025 MCHC (RBC) [Mass/Vol] 33.3 g/dL 32-36 [facility] Mean platelet volume determi nationOrdered By: Bhavin Quinn on 05-15-2025 Platelet mean volume (Bld) [Entitic vol] 9.7 fL 6.2-12.0 [facility] Microscopic analysis of urin e for red blood cells (RBC)Ordered By: Bhavin Quinn on 05-15-2025 Microscopic analysis of urine for red blood cells (RBC) 0 SEEN /hpf 0-5 [facility] Monocyte percentageOrdered B y: Bhavin Quinn on 09-21-2025 Monocytes/100 WBC (Bld) 7.4 % 0-10 [facility] Mucus LM Ql (Urine sed)Order ed By: hBavin Quinn on 05-15-2025 Mucus Ql (Urine sed) 0 SEEN /hpf [facility] Neutrophil percentageOrdered By: Bhavin Quinn on 05-15-2025 Neutrophils/100 WBC (Bld) 69.9 % 47-70 [facility] Nitrite Test strip Ql (U)Ord ered By: Bhavin Quinn on 05-15-2025 Nitrite Ql (U) Negative Negative [facility] Nucleated red blood cell per centageOrdered By: Bhavin Quinn on 05-15-2025 Nucleated RBC/100 WBC (Bld) [Ratio] 0 % 0-5 [facility] Platelet countOrdered By: Yahaira Quinn on 05-15-2025 Platelets (Bld) [#/Vol] 285 10*3/uL 150-450 [facility] Potassium measurement (mass/ volume)Ordered By: Bhavin Quinn on 05-15-2025 Potassium (Unsp spec) [Mass/Vol] 3.7 mmol/L 3.3-5.1 [facility] Comment on above: Hemolysis present, R esults could be affected. Protein Test strip Ql (U)Ord ered By: Bhavin Quinn on 05-15-2025 Protein Ql (U) Negative Negative [facility] RBC Auto (Bld) [#/Vol]Ordere d By: Bhavin Quinn on 05-15-2025 RBC (Bld) [#/Vol] 4.36 10*6/uL 4.2-5.4 [facility] Serum creatinine measurement (mass/volume)Ordered By: Bhavin Quinn on 05-15-2025 Creatinine [Mass/Vol] 0.68 mg/dL Low 0.70-1.20 [facility] Serum glucose measurement (m ass/volume)Ordered By: Bhavin Quinn on 05-15-2025 Glucose [Mass/Vol] 163 mg/dL High 70-99 [facility] Serum or plasma calcium maria elena urement (mass/volume)Ordered By: Bhavin Quinn on 05-15-2025 Calcium [Mass/Vol] 9.2 mg/dL 7.6-11.0 [facility] Serum or plasma urea nitroge n measurement (mass/volume)Ordered By: Bhavin Quinn on 05-15-2025 Urea nitrogen [Mass/Vol] 7 mg/dL 4-19 [facility] Sodium levelOrdered By: Elgin Quinn on 05-15-2025 Sodium [Moles/Vol] 142 mmol/L 133-145 [facility] Squamous epithelial cells de tection in urine sediment by light microscopyOrdered By: Bhavin Quinn on 05-15-2025 Epithelial cells.squamous LM Ql (Urine sed) 0-5 SEEN /hpf 5-10 [facility] TSH DL <= 0.005 mIU/L QnOrde red By: Bhavin Quinn on 05-15-2025 TSH Qn 0.570 uIU/mL 0.300-4.200 [facility] Thyroid Stim Hormone (TSH)on 05-15-2025 TSH 0.570 uIU/mL Normal 0.300-4.200 [facility] Comment on above: Performed By: #### L 100.0100, L501.5200, L501.9520, L500.2500 #### [facility] [address] [place], [place], [id number] Urinalysis, Completeon 05-15 BACTERIA 4+ /hpf Normal None Seen [facility] Comment on above: Order Comment: ALEKSANDAR CTOR TO SPECIFY Performed By: #### L 400.0001 #### [facility] [address] [place], [address] EPI,SQUAMOUS 0-5 SEEN Normal 5-10 [facility] Comment on above: Order Comment: ALEKSANDAR CTOR TO SPECIFY Performed By: #### L 400.0001 #### [facility] [address] [place], [address] WBC 0-5 SEEN Normal 0-5 [facility] Comment on above: Order Comment: ALEKSANDAR CTOR TO SPECIFY Performed By: #### L 400.0001 #### [facility] [address] [place], [address] Mucus Ql (Urine sed) 0 SEEN Normal [facility] Comment on above: Order Comment: ALEKSANDAR CTOR TO SPECIFY Performed By: #### L 400.0001 #### [facility] [address] [place], [place], [id number] RBC 0 SEEN Normal 0-5 [facility] Comment on above: Order Comment: ALEKSANDAR CTOR TO SPECIFY Performed By: #### L 400.0001 #### [facility] [address] [place], [place], [id number] Urine clarityOrdered By: Kelvin Quinn on 05-15-2025 Clarity (U) Sl. Cloudy Clear [facility] Urine color determinationOrd ered By: Bhavin Quinn on 05-15-2025 Color (U) Yellow Yellow [facility] Urine cultureOrdered By: Kelvin Quinn on 05-15-2025 Bacteria identified Cx Nom (U) ESBL Escherichia coli Abnormal [facility] Urine glucose detectionOrder ed By: Bhavin Quinn on 05-15-2025 Glucose Ql (U) 1000 mg/dl High Normal [facility] Urine leukocyte esterase det ection by dipstickOrdered By: Bhavin Quinn on 05-15-2025 Leukocyte esterase Test strip Ql (U) 25 /ul High Negative [facility] Urine pHOrdered By: Bhavin lewis on 05-15-2025 pH (U) 6.0 [pH] 5.0 - 8.0 [facility] Urine sediment bacteria coun t by microscopy (number/high power field)Ordered By: Bhavin Quinn on 05-15-2025 Bacteria LM.HPF (Urine sed) [#/Area] 4 /[HPF] None Seen [facility] Urine specific gravity measu rementOrdered By: Bhavin Quinn on 05-15-2025 Specific gravity (U) [Rel density] 1.010 1.002-1.030 [facility] Urine urobilinogen measureme ntOrdered By: Bhavin Quinn on 05-15-2025 Urobilinogen Ql (U) Normal mg/dl Normal [facility] White blood cell (WBC) count Ordered By: Bhavin Quinn on 05-15-2025 WBC (Bld) [#/Vol] 15.5 10*3/uL High 4.4-11.0 [facility] White blood cell countOrdere d By: Bhavin Quinn on 05-15-2025 White blood cell count 0-5 SEEN /hpf 0-5 [facility] CNPNon 05-10-2025 CNPN Telephone (FAMPWS) IVET VALERO ([id number]) 1955 F Date Time Provider Department 05/10/25 SMILEY MELO During your visit today, we recorded the following information about you: Diane Guillermo RN 05/10/2025 11:09 AM Signed Megha HERNANDEZ Bankruptcy Paralegal with [facility] called I about Pt's insurance PA for the Phenergan suppository. The Reference # is [id number], she states they will fax the recommendation within 24 hours to providers fax #. NITIN Joel Elizabeth, MA 05/10/2025 4:38 PM Signed PA for phenergan suppository approved till 05/10/26. Patient was notified Ana Lam MA Allergies As of Date: 05/10/2025 Noted Allergy Reaction CHANTIX (VARENICLINE) 01/22/2019 1 - Mental Status Change PENICILLINS 05/25/2008 4 - Hives SULFA (SULFONAMIDE ANTIBIOTICS) 09/19/2016 2 - Rash 14 - Other: See Comments Comments: Blisters and sore in throat Date Reviewed: 03/29/2025 Reviewed by: Marylu Yeung MA - Fully Assessed Reason for Visit: Insurance PA [Other] Prescriptions as of 05/10/2025 - omeprazole (PRILOSEC) 40 mg capsule Take 1 capsule by mouth once daily. - promethazine (PHENERGAN) 25 mg tablet Take 1 tablet by mouth every 6 hours as needed for nausea/vomiting. - promethazine (PHENERGAN) 25 mg suppository 1 suppository by RECTAL route every 6 hours as needed. - Insulin [place], Disposable, (BD ULTRA-FINE MINDY PEN NEEDLE) 32 gauge x 32 Use one needle for each dose, 4 times daily. (4mm) - albuterol (PROVENTIL) 2.5 mg /3 mL (0.083 %) nebulizer solution Use 3 mL via nebulizer every 4 hours as needed for wheezing/shortness of breath. Use over 5-15minutes. - albuterol HFA (VENTOLIN HFA) 90 mcg/actuation inhaler Inhale 2 puffs as instructed every 4 hours as needed. - insulin glargine U-300 conc (TOUJEO) 300 unit/mL (1.5 mL) Inject 80 Units subcutaneously every morning. E11.9 Dispense 2 boxes of 3 pens. - fluticasone-umeclidin- vilanter (TRELEGY ELLIPTA) 200-62.5-25 mcg inhalation powder Inhale 1 puff as instructed once daily. - lisinopril 2.5 mg tablet Take 1 tablet by mouth once daily. For kidney protection - ergocalciferol 50,000 unit capsule (VITAMIN D2, DRISDOL) Take 1 capsule by mouth every other week. - Cyanocobalamin 1,000 mcg TbER Take 1 tablet by mouth once daily. B12 - nystatin (MYCOSTATIN) powder Apply 1 application to affected area four times daily. - Blood-Glucose Meter monitoring kit Glucose Meter of Choice - Kit - Dx: Type 2 DM - Uncontrolled E11.65 - blood sugar diagnostic (FREESTYLE LITE STRIPS) test strip Test blood sugar(s) 3-4 times daily. Dx: Type 2 DM - Uncontrolled E11.65 Insulin: Yes - rosuvastatin (CRESTOR) 5 mg tablet Take 1 tablet by mouth once daily. - gabapentin (NEURONTIN) 400 mg capsule Take 1 capsule by mouth three times a day for 90 days. - Lancets Test blood sugar(s) 3-4 times daily. Dx: Type 2 DM-Controlled Insulin: Yes - blood sugar diagnostic (BLOOD GLUCOSE TEST) test strip Test blood sugar(s) 3-4 times daily. Dx: Type 2 DM - Controlled E11.9 Insulin: Yes - insulin lispro (HUMALOG KWIKPEN INSULIN) 100 unit/mL Inject 12 Units subcutaneously three times a day before meals. And sliding scale up to 38 units tid. - busPIRone (BUSPAR) 10 mg tablet Take 1 tablet by mouth three times daily. - escitalopram oxalate (LEXAPRO) 20 mg tablet Take 10 mg by mouth once daily. - buPROPion XL (WELLBUTRIN XL) 150 mg 24 hr tablet Take 300 mg by mouth once daily. - Insulin [place], Disposable, 32 gauge x 5/16 ndle Use four times daily with insulin - QUEtiapine XR (SEROQUEL XR) 300 mg 24 hr tablet Take 300 mg by mouth daily at bedtime. - Blood Pressure Monitor EXLARGE BLOOD PRESSURE CUFF MONITOR KIT checking bp 4 times daily Problem List As Of Date 05/10/2025 Noted Resolved TOBACCO USE DISORDER [F17.200] CERVICAL DISC DEGEN [M50.30] Chronic bronchitis (HCC) [J42] Depressive disorder, not elsewhere classified [* 01/05/2022 Persistent disorder of initiating or maintainin*05/25/2008 01/05/2022 Migraine with aura [G43.109] PANIC DISORDER WITHOUT AGORAPHOBIA [F41.0] Fibromyalgia [M79.7] History of recurrent UTIs [Z87.440] 11/30/2015 Uncontrolled type 2 diabetes mellitus with hype* Secondary polycythemia [D75.1] 09/10/2017 Depression, major, recurrent, in complete remis*07/23/2018 Hyperlipidemia, mixed [E78.2] 02/01/2019 Chronic cough [R05.3] 01/04/2020 01/05/2022 Obesity, Class II, BMI 35-39.9 [E66.812] 02/29/2020 SOB (shortness of breath) [R06.02] 08/23/2020 01/05/2022 Acute bronchitis with chronic obstructive pulmo*10/02/2020 01/05/2022 Chest pressure [R07.89] 12/11/2020 01/05/2022 Rash [R21] 01/01/2021 01/05/2022 Primary hypertension [I10] 01/08/2021 Chronic gastritis without bleeding [K29.50] 09/07/2021 Leukocytosis [D72.829] 01/05/2022 Mixed stress and urge urinary incontinence [N3 (more content not included)... Normal [facility] CNOVon 05-06-2025 CNOV Office Visit (FAMPWS ) IVET VALERO ([id number]) 1955 F Date Time Provider Department 05/06/25 8:40 AM [facility] During your visit today, we recorded the following information about you: Temperature Pulse Blood pressure Weight 97.8 degrees 103/minute 132/76 102.5 kg Smiley Melo APRN.LINE THERAPIST 05/06/2025 9:13 AM Signed This is a 70 year old female who presents today with: Patient presents with: Follow Up: 3 month exam HISTORY OF PRESENT ILLNESS: Ivet Valero is a 70 year old female. Patient presents with: Follow Up: 3 month exam DM: Reports overall feeling well. Medication side effects: No. Home sugar checks: The same Hypoglycemic spells: No. Watching diet: Yes. Unexpected weight loss: No. Polyuria, polydipsia: Yes. Vision Changes: a little. Foot lesions or numbness or pain: No. The patient is a 70-year-old female with diabetes mellitus, presenting for evaluation of acute intractable vomiting, nausea, and cough. Nausea and Emesis: - Ivet Valero reports an acute onset of nausea and emesis, with 5 hours of continuous vomiting last night. - Ivet describes emesis as dry heaves and congestion. - Ivet took Phenergan last night with no relief. - Ivet is currently able to drink fluids. - Ivet denies history of bowel obstruction. Cough: - Ivet reports an acute onset of croupy cough. - Ivet denies dyspnea or wheezing. Diabetes: - Ivet is monitoring blood glucose levels at home; forgot to bring glucometer today. - Ivet denies recent hypoglycemic episodes. - Ivet adheres to dietary recommendations. - Ivet denies recent weight loss. - Ivet reports polyuria and polydipsia. - Ivet has mild blurred vision; not currently driving. - Ivet denies paresthesia in feet. 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 Depressive disorder, not elsewhere classified DM (diabetes mellitus) (HCC) Fibromyalgia Migraine with aura, without mention of intractable migraine without mention of status migrainosus Panic disorder without agoraphobia had hx of failed urine screen Recurrent UTI Tobacco use disorder PAST SURGICAL HISTORY Procedure Laterality Date CHOLECYSTECTOMY ESOPHAGOGASTRODUODENOS COPY TRANSORAL DIAGNOSTIC 12/06/2015 EGD LIG/TRNSXJ FLP TUBE ABDL/VAG APPR UNI/BI Tubal ligation PAST SURGICAL HISTORY OF Left 03/2014 ANKLE FRACTURE REPAIR S SLING BLADDER 2012 AND TOTAL ABDOMINAL HYSTERECT W/WO RMVL TUBE OVARY Hysterectomy, REJI ALLERGIES Chantix [Varenicline], Penicillins, and Sulfa (Sulfonamide Antibiotics) MEDICATIONS Current Outpatient Medications Medication Sig promethazine (PHENERGAN) 25 mg tablet Take 1 tablet by mouth every 6 hours as needed for nausea/vomiting. Insulin [place], Disposable, (BD ULTRA-FINE MINDY PEN NEEDLE) 32 gauge x Use one needle for each dose, 4 times daily. (4mm) albuterol (PROVENTIL) 2.5 mg /3 mL (0.083 %) nebulizer solution Use 3 mL via nebulizer every 4 hours as needed for wheezing/shortness of breath. Use over 5-15minutes. albuterol HFA (VENTOLIN HFA) 90 mcg/actuation inhaler Inhale 2 puffs as instructed every 4 hours as needed. insulin glargine U-300 conc (TOUJEO) 300 unit/mL (1.5 mL) Inject 80 Units subcutaneously every morning. E11.9 Dispense 2 boxes of 3 pens. fluticasone-umeclidin- vilanter (TRELEGY ELLIPTA) 200-62.5-25 mcg inhalation powder Inhale 1 puff as instructed once daily. lisinopril 2.5 mg tablet Take 1 tablet by mouth once daily. For kidney protection ergocalciferol 50,000 unit capsule (VITAMIN D2, DRISDOL) Take 1 capsule by mouth every other week. Cyanocobalamin 1,000 mcg TbER Take 1 tablet by mouth once daily. B12 nystatin (MYCOSTATIN) powder Apply 1 application to affected area four times daily. Blood-Glucose Meter monitoring kit Glucose Meter of Choice - Kit - Dx: Type 2 DM - Uncontrolled E11.65 blood sugar diagnostic (FREESTYLE LITE STRIPS) test strip Test blood sugar(s) 3-4 times daily. Dx: Type 2 DM - Uncontrolled E11.65 Insulin: Yes rosuvastatin (CRESTOR) 5 mg tablet Take 1 tablet by mouth once daily. gabapentin (NEURONTIN) 400 mg capsule Take 1 capsule by mouth three times a day for 90 days. Lancets Test blood sugar(s) 3-4 times daily. Dx: Type 2 DM-Controlled Insulin: Yes blood sugar diagnostic (BLOOD GLUCOSE TEST) test strip Test blood sugar(s) 3-4 times daily. Dx: Type 2 DM - Controlled E11.9 Insulin: Yes omeprazole (PRILOSEC) 40 mg capsule Take 1 capsule by mouth once daily. insulin lispro (HUMALOG KWIKPEN INSULIN) 100 unit/mL Inject 12 Units subcutaneously three times a day before meals. And sliding scale up to 38 units tid. busPIRone (BUSP (more content not included)... Normal [facility] 2025 [facility] IVET VALERO ([id number]) 1955 F Date Time Provider Department 04/07/25 [facility] During your visit today, we recorded the following information about you: Yasmany Willis RN 2025 10:38 AM Signed Patient phoned to ask Duyen if you can prescribe a cough medicine for her that is safe with her diabetes? Reports she's had a harsh productive clear cough since 2 days before her last appt with you. Reports it's constant and wearing her down, worse at night, and unable to sleep. No runny nose or sinus drainage. No other symptoms. Gets hot at night- not sure if it's a fever. Reports she will complete the macrobid today for UTI. Please advise patient. Smiley Melo APRN.SINGH 2025 10:54 AM Signed Will order Tessalon Perles, 1 Perle swallowed whole every 8 hours as needed for cough. Yasmany Willis RN 2025 12:55 PM Signed Notified patient. Allergies As of Date: 2025 Noted Allergy Reaction CHANTIX (VARENICLINE) 01/22/2019 1 - Mental Status Change PENICILLINS 05/25/2008 4 - Hives SULFA (SULFONAMIDE ANTIBIOTICS) 09/19/2016 2 - Rash 14 - Other: See Comments Comments: Blisters and sore in throat Date Reviewed: 03/29/2025 Reviewed by: Marylu Yeung MA - Fully Assessed Reason for Visit: Patient Question [1477] Primary Visit Diagnosis:Acute cough [R05.1] Order(s):benzonatate (TESSALON PERLE) 100 mg capsuleTake 1 capsule by mouth three times a day as needed for up to 15 days.Disp: 45 capsuleRfl: 0 Prescriptions as of 2025 - benzonatate (TESSALON PERLE) 100 mg capsule Take 1 capsule by mouth three times a day as needed for up to 15 days. - promethazine (PHENERGAN) 25 mg tablet Take 1 tablet by mouth every 6 hours as needed for nausea/vomiting. - nitrofurantoin monohydrate and macrocrystal (MACROBID) 100 mg capsule Take 1 capsule by mouth two times a day with meals for 7 days. - Insulin [place], Disposable, (BD ULTRA-FINE MINDY PEN NEEDLE) 32 gauge x 5/32 Use one needle for each dose, 4 times daily. (4mm) - albuterol (PROVENTIL) 2.5 mg /3 mL (0.083 %) nebulizer solution Use 3 mL via nebulizer every 4 hours as needed for wheezing/shortness of breath. Use over 5-15minutes. - albuterol HFA (VENTOLIN HFA) 90 mcg/actuation inhaler Inhale 2 puffs as instructed every 4 hours as needed. - insulin glargine U-300 conc (TOUJEO) 300 unit/mL (1.5 mL) Inject 80 Units subcutaneously every morning. E11.9 Dispense 2 boxes of 3 pens. - fluticasone-umeclidin- vilanter (TRELEGY ELLIPTA) 200-62.5-25 mcg inhalation powder Inhale 1 puff as instructed once daily. - lisinopril 2.5 mg tablet Take 1 tablet by mouth once daily. For kidney protection - ergocalciferol 50,000 unit capsule (VITAMIN D2, DRISDOL) Take 1 capsule by mouth every other week. - Cyanocobalamin 1,000 mcg TbER Take 1 tablet by mouth once daily. B12 - nystatin (MYCOSTATIN) powder Apply 1 application to affected area four times daily. - Blood-Glucose Meter monitoring kit Glucose Meter of Choice - Kit - Dx: Type 2 DM - Uncontrolled - blood sugar diagnostic (FREESTYLE LITE STRIPS) test strip Test blood sugar(s) 3-4 times daily. Dx: Type 2 DM - Uncontrolled Insulin: Yes - rosuvastatin (CRESTOR) 5 mg tablet Take 1 tablet by mouth once daily. - gabapentin (NEURONTIN) 400 mg capsule Take 1 capsule by mouth three times a day for 90 days. - Lancets Test blood sugar(s) 3-4 times daily. Dx: Type 2 DM-Controlled Insulin: Yes - blood sugar diagnostic (BLOOD GLUCOSE TEST) test strip Test blood sugar(s) 3-4 times daily. Dx: Type 2 DM - Controlled E11. Insulin: Yes - omeprazole (PRILOSEC) 40 mg capsule Take 1 capsule by mouth once daily. - insulin lispro (HUMALOG KWIKPEN INSULIN) 100 unit/mL Inject 12 Units subcutaneously three times a day before meals. And sliding scale up to 38 units tid. - busPIRone (BUSPAR) 10 mg tablet Take 1 tablet by mouth three times daily. - escitalopram oxalate (LEXAPRO) 20 mg tablet Take 10 mg by mouth once daily. - buPROPion XL (WELLBUTRIN XL) 150 mg 24 hr tablet Take 300 mg by mouth once daily. - Insulin [place], Disposable, 32 gauge x 5/16 ndle Use four times daily with insulin - QUEtiapine XR (SEROQUEL XR) 300 mg 24 hr tablet Take 300 mg by mouth daily at bedtime. - Blood Pressure Monitor EXLARGE BLOOD PRESSURE CUFF MONITOR KIT checking bp 4 times daily Problem List As Of Date 2025 Noted Resolved TOBACCO USE DISORDER [F17.200] CERVICAL DISC DEGEN [M50.30] Chronic bronchitis (HCC) [J42] Depressive disorder, not elsewhere classified [* 01/05/2022 Persistent disorder of initiating or maintainin*05/25/2008 01/05/2022 Migraine with aura [G43.109] PANIC DISORDER WITHOUT AGORAPHOBIA [F41.0] Fibromyalgia [M79.7] History of recurrent UTIs [Z87.440] 11/30/2015 Uncontrolled type 2 diabetes mellitus with h (more content not included)... Normal [facility] Bacteria Ur Culton Bacteria identified Cx Nom (U) ORGANISM ID: 1 >=100,000 CFU/ml Escherichia coli Extended-spectrum beta-lactamase (ESBL) production detected in this isolate. ESBL producing strains are considered resistant to all cephalosporins, penicillins, and aztreonam. ORGANISM ID: 1 (ESCHERICHIA COLI) -- ANTIBIOTIC INTERPRETATION STEPHEN STATUS REFERENCE RANGE -- Ampicillin R >=32 F Susceptible <=8 , Intermediate >8 , Resistant >16 Cefazolin R >=64 F Susceptible 0-16 , Intermediate <0 or >16 , Resistant >16 For uncomplicated urinary tract infections, cefazolin results can be used to predict susceptibility or resistance to cephalexin. Ceftriaxone R F Cefepime R F Ertapenem S <=0.5 F Susceptible <=0.5 , Intermediate >.5 , Resistant >1 Meropenem S <=0.25 F Susceptible <=1 , Intermediate >1 , Resistant >2 Gentamicin S <=1 F Susceptible <=2 , Intermediate >2 , Resistant >=8 Tobramycin R >=16 F Susceptible <4 , Intermediate >=4 , Resistant >=8 Amikacin R 16 F Susceptible <8 , Intermediate >=8 , Resistant >=16 Trimeth sulfameth R >=320 F Susceptible <=40 , Resistant >40 Ciprofloxacin R >=4 F Susceptible <0.5 , Intermediate >=.5 , Resistant >=1 Nitrofurantoin S <=16 F Susceptible <=32 , Intermediate >32 , Resistant >64 Abnormal [facility] Comment on above: Performed By: #### 6 30-4, 66735-2 ####[facility] [id number] [address] [facility] CNOVon 03-29-2025 CNOV Office Visit (FAMPWS ) ANJUMKEYANNAH Joe ([id number]) 1955 F Date Time Provider Department 03/29/25 11:20 AM [facility] During your visit today, we recorded the following information about you: Pulse Blood pressure Weight 109/minute 134/72 101.2 kg Smiley Melo APRN.CNP 03/29/2025 12:10 PM Addendum This is a 69 year old female who presents today with: Patient presents with: Follow Up: 2 week follow up bronchitis HISTORY OF PRESENT ILLNESS: Ivet Valero is a 69 year old female. Patient presents with: Follow Up: 2 week follow up bronchitis Ivet Valero is a 69-year-old female with a history of COPD, diabetes, and hyperlipidemia, presenting for follow-up of dyspnea and urinary symptoms. Dyspnea: - Dyspnea on exertion, particularly with long-distance walking. - Recent course of antibiotics and steroids provided some relief. - Denies persistent cough or wheezing. - Has been using Breo inhaler for COPD management; inquires about trying Trelegy. Urinary Symptoms: - Severe dysuria with sharp pains. - Temporary relief after urination. - Polyuria, urinating approximately three times per hour. - Using nystatin powder for yeast, applied to both groin and under breasts. Diabetes: - Taking 80 units of Trujail every morning. - Using Humalog 12 units TID, sliding scale. - Reports polydipsia and polyphagia. - Learning to use a glucometer. Hyperlipidemia: - Recently started on rosuvastatin. Has smoked up to 2 ppd for 51 years- not interested in cessation 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 Depressive disorder, not elsewhere classified DM (diabetes mellitus) (HCC) Fibromyalgia Migraine with aura, without mention of intractable migraine without mention of status migrainosus Panic disorder without agoraphobia had hx of failed urine screen Recurrent UTI Tobacco use disorder PAST SURGICAL HISTORY Procedure Laterality Date CHOLECYSTECTOMY ESOPHAGOGASTRODUODENOS COPY TRANSORAL DIAGNOSTIC 12/06/2015 EGD LIG/TRNSXJ FLP TUBE ABDL/VAG APPR UNI/BI Tubal ligation PAST SURGICAL HISTORY OF Left 03/2014 ANKLE FRACTURE REPAIR S SLING BLADDER 2012 AND TOTAL ABDOMINAL HYSTERECT W/WO RMVL TUBE OVARY Hysterectomy, REJI ALLERGIES Chantix [Varenicline], Penicillins, and Sulfa (Sulfonamide Antibiotics) MEDICATIONS Current Outpatient Medications Medication Sig promethazine (PHENERGAN) 25 mg tablet Take 1 tablet by mouth every 6 hours as needed for nausea/vomiting. blood sugar diagnostic (FREESTYLE LITE STRIPS) test strip Test blood sugar(s) 3-4 times daily. Dx: Type 2 DM - Uncontrolled E11.65 Insulin: Yes rosuvastatin (CRESTOR) 5 mg tablet Take 1 tablet by mouth once daily. Cyanocobalamin 1,000 mcg TbER Take 1 tablet by mouth once daily. B12 ergocalciferol 50,000 unit capsule (VITAMIN D2, DRISDOL) Take 1 capsule by mouth every other week. gabapentin (NEURONTIN) 400 mg capsule Take 1 capsule by mouth three times a day for 90 days. Lancets Test blood sugar(s) 3-4 times daily. Dx: Type 2 DM-Controlled Insulin: Yes blood sugar diagnostic (BLOOD GLUCOSE TEST) test strip Test blood sugar(s) 3-4 times daily. Dx: Type 2 DM - Controlled E11.9 Insulin: Yes omeprazole (PRILOSEC) 40 mg capsule Take 1 capsule by mouth once daily. insulin lispro (HUMALOG KWIKPEN INSULIN) 100 unit/mL Inject 12 Units subcutaneously three times a day before meals. And sliding scale up to 38 units tid. fluticasone-vilanterol (BREO ELLIPTA) 100-25 mcg/dose inhaler Inhale 1 Inhalation as instructed once daily. nystatin (MYCOSTATIN) powder Apply 1 application to affected area four times daily. busPIRone (BUSPAR) 10 mg tablet Take 1 tablet by mouth three times daily. escitalopram oxalate (LEXAPRO) 20 mg tablet Take 10 mg by mouth once daily. buPROPion XL (WELLBUTRIN XL) 150 mg 24 hr tablet Take 300 mg by mouth once daily. Insulin [place], Disposable, 32 gauge x 5/16 ndle Use four times daily with insulin QUEtiapine XR (SEROQUEL XR) 300 mg 24 hr tablet Take 300 mg by mouth daily at bedtime. Blood Pressure Monitor EXLARGE BLOOD PRESSURE CUFF MONITOR KIT checking bp 4 times daily Insulin [place], Disposable, (BD ULTRA-FINE MINDY PEN NEEDLE) 32 gauge x 5/32 Use one needle for each dose, 4 times daily. (4mm) albuterol (PROVENTIL) 2.5 mg /3 mL (0.083 %) nebulizer solution Use 3 mL via nebulizer every 4 hours as needed for wheezing/shortness of breath. Use over 5-15minutes. albuterol HFA (VENTOLIN HFA) 90 mcg/actuation inhaler Inhale 2 puffs as instructed every 4 hours as needed. Blood-Glucose Meter monitoring kit Glucose Meter of Choice - Kit - Dx: Type 2 DM - Uncontrolled E11.65 insulin glargine U-300 conc (more content not included)... Normal [facility] Urinalysis complete panel (U )on 03-29-2025 BACTERIA UL >9821 High Negative [facility] Comment on above: Order Comment: Speci men Type: URINE SPECIMENOrdering Facility: [facility] Address: [address] [place] [address] Performed By: #### 6 30-4, 67503-1 ####[facility] [id number] [address] [place] [address] [place] Bilirubin Ql (U) Negative Normal Negative [facility] Comment on above: Order Comment: Speci men Type: URINE SPECIMENOrdering Facility: [facility] Address: [address] [place] [address] Performed By: #### 6 30-4, 97940-5 ####[facility] [id number] [address] [place] [address] [place] Clarity (Unsp spec) Cloudy Abnormal Clear [facility] Comment on above: Order Comment: Speci men Type: URINE SPECIMENOrdering Facility: [facility] Address: [address] [place] [address] Performed By: #### 6 30-, 44774-7 ####[facility] [id number] [address] [place] [address] [place] Color (U) Yellow Normal Yellow [facility] Comment on above: Order Comment: Speci men Type: URINE SPECIMENOrdering Facility: [facility] Address: [address] [place] [address] Performed By: #### 6 30-4, 01036-2 ####[facility] [id number] [address] [place] [address] [place] Epithelial cells LM.HPF (Urine sed) [#/Area] None Seen Normal [facility] Comment on above: Order Comment: Speci men Type: URINE SPECIMENOrdering Facility: [facility] Address: [address] [place] [address] Performed By: #### 6 30-4, 35038-3 ####[facility] [id number] [address] [place] [address] [place] Glucose Test strip (U) [Mass/Vol] 3+ Abnormal Negative [facility] Comment on above: Order Comment: Speci men Type: URINE SPECIMENOrdering Facility: [facility] Address: [address] [place] [address] Performed By: #### 6 30-4, 63173-3 ####[facility] [id number] [facility] [address], [facility] [place] Hemoglobin Ql (U) Trace Abnormal Negative [facility] Comment on above: Order Comment: Speci men Type: URINE SPECIMENOrdering Facility: [facility] Address: [address] [place] [address] Performed By: #### 6 30-4, 40860-5 ####[facility] [id number] [facility] [address], [facility] [place] Hyaline casts (Urine sed) [#/Area] 0 /[LPF] Normal 0 /LPF [facility] Comment on above: Order Comment: Speci men Type: URINE SPECIMENOrdering Facility: [facility] Address: [address] [place] [address] Performed By: #### 6 30-4, 94422-0 ####[facility] [id number] [address], [address] [place] Ketones Ql (U) Negative Normal Negative [facility] Comment on above: Order Comment: Speci men Type: URINE SPECIMENOrdering Facility: [facility] Address: [address] [place] [address] Performed By: #### 6 30-4, 52342-8 ####[facility] [id number] [place] [id number] [place] Leukocyte esterase Test strip Ql (U) 2+ Abnormal Negative [facility] Comment on above: Order Comment: Speci men Type: URINE SPECIMENOrdering Facility: [facility] Address: [address] [place] [address] Performed By: #### 6 30-4, 42328-3 ####[facility] [id number] [place] [id number] [place] Nitrite Ql (U) Negative Normal Negative [facility] Comment on above: Order Comment: Speci men Type: URINE SPECIMENOrdering Facility: [facility] Address: [address] [place] [address] Performed By: #### 6 30-4, 76725-5 ####[facility] [id number] [place] [address] [place] pH (U) 5.5 [pH] Normal 5.0-8.0 [facility] Comment on above: Order Comment: Speci men Type: URINE SPECIMENOrdering Facility: [facility] Address: [address] [place] [address] Performed By: #### 6 30-4, 84317-6 ####[facility] [id number] [place] [address] [place] Protein (U) [Mass/Vol] Trace Abnormal Negative [facility] Comment on above: Order Comment: Speci men Type: URINE SPECIMENOrdering Facility: [facility] Address: [address] [place] [address] Performed By: #### 6 30-4, 67244-4 ####[facility] [id number] [place] [address] [place] RBC LM.HPF (Urine sed) [#/Area] 6-10 /HPF Abnormal 0-2 /HPF [facility] Comment on above: Order Comment: Speci men Type: URINE SPECIMENOrdering Facility: [facility] Address: [address] [place] [address] Performed By: #### 6 30-4, 56071-8 ####[facility] [id number] [place] [address] [place] Specific gravity (U) [Rel density] 1.020 Normal 1.005-1.030 [facility] Comment on above: Order Comment: Speci men Type: URINE SPECIMENOrdering Facility: [facility] Address: [address] [place] [address] Performed By: #### 6 30-4, 34011-7 ####[facility] [id number] [place] [address] [place] Urobilinogen Ql (U) 0.2 EU/dL Normal 0.2-1.0 EU/dL [facility] Comment on above: Order Comment: Speci men Type: URINE SPECIMENOrdering Facility: [facility] Address: [address] [place] [address] Performed By: #### 6 30-4, 19723-6 ####[facility] [id number] [place] [address] [place] WBC LM.HPF (Urine sed) [#/Area] /[HPF] Abnormal 0-5 /HPF [facility] Comment on above: Order Comment: Speci men Type: URINE SPECIMENOrdering Facility: [facility] Address: [address] [place] [address] Performed By: #### 6 30-4, 04555-4 ####[facility] [id number] [place] [address] [place] Yeast.budding LM.HPF (Urine sed) [#/Area] Present Abnormal None Seen [facility] Comment on above: Order Comment: Speci men Type: URINE SPECIMENOrdering Facility: [facility] Address: [address] [place] [address] Performed By: #### 6 30-4, 25188-4 ####[facility] [id number] [place] [address] [place] Yeast.hyphae LM.HPF (Urine sed) [#/Area] Present Abnormal None Seen [facility] Comment on above: Order Comment: Speci men Type: URINE SPECIMENOrdering Facility: [facility] Address: [address] [place] [address] Performed By: #### 6 30-4, 49413-3 ####[facility] [id number] [place] [address] [place] XR CHEST 2V FRONTAL/LATon XR CHEST 2V FRONTAL/LAT * * *Final Repor t* * * DATE OF EXAM: Mar 29 2025 12:51PM WOX [id number] - XR CHEST 2V FRONTAL/LAT / PROCEDURE REASON: COPD with exacerbation (HCC) * * * * Physician Interpretation * * * * EXAMINATION: CHEST RADIOGRAPH (2 VIEW FRONTAL and LATERAL) CLINICAL HISTORY: COPD with exacerbation (HCC) MQ: XC2_6 EXAM DATE/TIME: 03/29/2025 12:51 PM COMPARISON: Chest x-ray on 09/04/2023 RESULT: Lines, tubes, and devices: None. Lungs and pleura: No consolidation. No lung mass. No pleural effusion. No pneumothorax. There are large pericardial fat pads. Cardiomediastinal silhouette: Stable cardiomediastinal silhouette. Bones and soft tissues: The spine shows degenerative changes. IMPRESSION: No acute radiographic abnormality. Farmer [employer]: JOHNIE Transcribe Date/Time: Mar 29 2025 2:28P Dictated by : MCKENZIE CURTIS MD This examination was interpreted and the report reviewed and electronically signed by: MCKENZIE CURTIS MD on Mar 29 2025 2:29PM EST [id number] Normal [facility] IVET VALERO ([id number]) 1955 F Date Time Provider Department 03/24/25 RICCI COLE FAMPWS During your visit today, we recorded the following information about you: Yasmany Willis RN 03/24/2025 10:23 AM Signed [facility] Insurance reports pt's incontinent supplies request was denied of payment due to not reimburseable. [facility] pcp can appeal or go through Medicaid. Ricci Cole MD 03/24/2025 11:12 AM Signed Let her know not covered Marylu Yeung MA 03/24/2025 11:43 AM Signed Spoke with patient and she was already notified and has it taken care of. Marylu Yeung MA March 24, 2025 11:43 AM Allergies As of Date: 03/24/2025 Noted Allergy Reaction CHANTIX (VARENICLINE) 01/22/2019 1 - Mental Status Change PENICILLINS 05/25/2008 4 - Hives SULFA (SULFONAMIDE ANTIBIOTICS) 09/19/2016 2 - Rash 14 - Other: See Comments Comments: Blisters and sore in throat Date Reviewed: 03/10/2025 Reviewed by: Marylu Yeung MA - Fully Assessed Reason for Visit: Incontinent supplies denied request [Other] Prescriptions as of 03/24/2025 - doxycycline (VIBRA-TABS) 100 mg tablet Take 1 tablet by mouth two times a day for 14 days. - promethazine (PHENERGAN) 25 mg tablet Take 1 tablet by mouth every 6 hours as needed for nausea/vomiting. - Blood-Glucose Meter monitoring kit Glucose Meter of Choice - Kit - Dx: Type 2 DM - Uncontrolled E11.65 - blood sugar diagnostic (FREESTYLE LITE STRIPS) test strip Test blood sugar(s) 3-4 times daily. Dx: Type 2 DM - Uncontrolled E11.65 Insulin: Yes - rosuvastatin (CRESTOR) 5 mg tablet Take 1 tablet by mouth once daily. - Cyanocobalamin 1,000 mcg TbER Take 1 tablet by mouth once daily. B12 - ergocalciferol 50,000 unit capsule (VITAMIN D2, DRISDOL) Take 1 capsule by mouth every other week. - gabapentin (NEURONTIN) 400 mg capsule Take 1 capsule by mouth three times a day for 90 days. - Lancets Test blood sugar(s) 3-4 times daily. Dx: Type 2 DM-Controlled Insulin: Yes - blood sugar diagnostic (BLOOD GLUCOSE TEST) test strip Test blood sugar(s) 3-4 times daily. Dx: Type 2 DM - Controlled E11.9 Insulin: Yes - omeprazole (PRILOSEC) 40 mg capsule Take 1 capsule by mouth once daily. - insulin glargine U-300 conc (TOUJEO) 300 unit/mL (1.5 mL) Inject 80 Units subcutaneously every morning. E11.9 Dispense 2 boxes of 3 pens. - insulin lispro (HUMALOG KWIKPEN INSULIN) 100 unit/mL Inject 12 Units subcutaneously three times a day before meals. And sliding scale up to 38 units tid. - Insulin [place], Disposable, (BD ULTRA-FINE MINDY PEN NEEDLE) 32 gauge x 32 Use one needle for each dose, 4 times daily. (4mm) - albuterol HFA (VENTOLIN HFA) 90 mcg/actuation inhaler Inhale 2 Puffs as instructed every 4 hours as needed. - fluticasone-vilanterol (BREO ELLIPTA) 100-25 mcg/dose inhaler Inhale 1 Inhalation as instructed once daily. - nystatin (MYCOSTATIN) powder Apply 1 application to affected area four times daily. - albuterol (PROVENTIL) 2.5 mg /3 mL (0.083 %) nebulizer solution Use 3 mL via nebulizer every 4 hours as needed for wheezing/shortness of breath. Use over 5-15minutes. - busPIRone (BUSPAR) 10 mg tablet Take 1 tablet by mouth three times daily. - escitalopram oxalate (LEXAPRO) 20 mg tablet Take 10 mg by mouth once daily. - buPROPion XL (WELLBUTRIN XL) 150 mg 24 hr tablet Take 300 mg by mouth once daily. - Insulin [place], Disposable, 32 gauge x 516 ndle Use four times daily with insulin - QUEtiapine XR (SEROQUEL XR) 300 mg 24 hr tablet Take 300 mg by mouth daily at bedtime. - Blood Pressure Monitor EXLARGE BLOOD PRESSURE CUFF MONITOR KIT checking bp 4 times daily Problem List As Of Date 03/24/2025 Noted Resolved TOBACCO USE DISORDER [F17.200] CERVICAL DISC DEGEN [M50.30] Chronic bronchitis (HCC) [J42] Depressive disorder, not elsewhere classified [* 01/05/2022 Persistent disorder of initiating or maintainin*05/25/2008 01/05/2022 Migraine with aura [G43.109] PANIC DISORDER WITHOUT AGORAPHOBIA [F41.0] Fibromyalgia [M79.7] History of recurrent UTIs [Z87.440] 11/30/2015 Uncontrolled type 2 diabetes mellitus with hype* Secondary polycythemia [D75.1] 09/10/2017 Depression, major, recurrent, in complete remis*07/23/2018 Hyperlipidemia, mixed [E78.2] 02/01/2019 Chronic cough [R05.3] 01/04/2020 01/05/2022 Obesity, Class II, BMI 35-39.9 [E66.812] 02/29/2020 SOB (shortness of breath) [R06.02] 08/23/2020 01/05/2022 Acute bronchitis with chronic obstructive pulmo*10/02/2020 01/05/2022 Chest pressure [R07.89] 12/11/2020 01/05/2022 Rash [R21] 01/01/2021 01/05/2022 Primary hypertension [I10] 01/08/2021 Chronic gastritis without bleeding [K29.50] 09/07/2021 Leukocytosis [D72.829] 01/05/2022 Mixed stress and urge urinary incontinence [N39*04/16/2023 Esophageal varices without bleeding (HCC) [I85.*07/22/2022 Diagnosed: 07/26 (more content not included)... Normal [facility] CNOVon 03-10-2025 CNOV Office Visit (FAMPWS ) IVET VALERO ([id number]) 1955 F Date Time Provider Department 03/10/25 10:40 AM SMILEY MELO FAMPWS During your visit today, we recorded the following information about you: Temperature Pulse Blood pressure 99 degrees 110/minute 140/78 Smiley Melo, COURT MESSENGER.LINE THERAPIST 03/10/2025 11:00 AM Signed This is a 69 year old female who presents today with: Patient presents with: Follow Up: Continues to have cough and dizziness HISTORY OF PRESENT ILLNESS: Ivet Valero is a 69 year old female. Patient presents with: Follow Up: Continues to have cough and dizziness Ivet Valero is a 69-year-old female with a history of diabetes, presenting for evaluation of persistent dyspnea and cough. Dyspnea and Cough: - Persistent dyspnea and cough, with minimal improvement after completing a recent medication course. - Brief period of symptom relief allowed for some housework. - Severe dyspnea when retrieving the trash can and checking the mail; could barely make it back in because I couldn't breathe. - Productive cough with yellowish sputum, now clear this morning. - Denies chest pain. - Orthopnea; sleeps in a recliner. - Denies sinus congestion; reports frequent headaches. - Denies fever or chills. Diabetes: - Ivet has a blood glucose meter but unable to use it; did not bring it to the appointment. - Adherent to diabetes medications. 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 Depressive disorder, not elsewhere classified DM (diabetes mellitus) (HCC) Fibromyalgia Migraine with aura, without mention of intractable migraine without mention of status migrainosus Panic disorder without agoraphobia had hx of failed urine screen Recurrent UTI Tobacco use disorder PAST SURGICAL HISTORY Procedure Laterality Date CHOLECYSTECTOMY ESOPHAGOGASTRODUODENOS COPY TRANSORAL DIAGNOSTIC 12/06/2015 EGD LIG/TRNSXJ FLP TUBE ABDL/VAG APPR UNI/BI Tubal ligation PAST SURGICAL HISTORY OF Left 03/2014 ANKLE FRACTURE REPAIR S SLING BLADDER 2012 AND TOTAL ABDOMINAL HYSTERECT W/WO RMVL TUBE OVARY Hysterectomy, REJI ALLERGIES Chantix [Varenicline], Penicillins, and Sulfa (Sulfonamide Antibiotics) MEDICATIONS Current Outpatient Medications Medication Sig promethazine (PHENERGAN) 25 mg tablet Take 1 tablet by mouth every 6 hours as needed for nausea/vomiting. Blood-Glucose Meter monitoring kit Glucose Meter of Choice - Kit - Dx: Type 2 DM - Uncontrolled E11.65 blood sugar diagnostic (FREESTYLE LITE STRIPS) test strip Test blood sugar(s) 3-4 times daily. Dx: Type 2 DM - Uncontrolled E11.65 Insulin: Yes rosuvastatin (CRESTOR) 5 mg tablet Take 1 tablet by mouth once daily. Cyanocobalamin 1,000 mcg TbER Take 1 tablet by mouth once daily. B12 ergocalciferol 50,000 unit capsule (VITAMIN D2, DRISDOL) Take 1 capsule by mouth every other week. gabapentin (NEURONTIN) 400 mg capsule Take 1 capsule by mouth three times a day for 90 days. Lancets Test blood sugar(s) 3-4 times daily. Dx: Type 2 DM-Controlled Insulin: Yes blood sugar diagnostic (BLOOD GLUCOSE TEST) test strip Test blood sugar(s) 3-4 times daily. Dx: Type 2 DM - Controlled E11.9 Insulin: Yes omeprazole (PRILOSEC) 40 mg capsule Take 1 capsule by mouth once daily. insulin glargine U-300 conc (TOUJEO) 300 unit/mL (1.5 mL) Inject 80 Units subcutaneously every morning. E11.9 Dispense 2 boxes of 3 pens. insulin lispro (HUMALOG KWIKPEN INSULIN) 100 unit/mL Inject 12 Units subcutaneously three times a day before meals. And sliding scale up to 38 units tid. Insulin [place], Disposable, (BD ULTRA-FINE MINDY PEN NEEDLE) 32 gauge x 5/32 Use one needle for each dose, 4 times daily. (4mm) albuterol HFA (VENTOLIN HFA) 90 mcg/actuation inhaler Inhale 2 Puffs as instructed every 4 hours as needed. fluticasone-vilanterol (BREO ELLIPTA) 100-25 mcg/dose inhaler Inhale 1 Inhalation as instructed once daily. (Patient not taking: Reported on 03/01/2025) nystatin (MYCOSTATIN) powder Apply 1 application to affected area four times daily. albuterol (PROVENTIL) 2.5 mg /3 mL (0.083 %) nebulizer solution Use 3 mL via nebulizer every 4 hours as needed for wheezing/shortness of breath. Use over 5-15minutes. busPIRone (BUSPAR) 10 mg tablet Take 1 tablet by mouth three times daily. escitalopram oxalate (LEXAPRO) 20 mg tablet Take 10 mg by mouth once daily. buPROPion XL (WELLBUTRIN XL) 150 mg 24 hr tablet Take 300 mg by mouth once daily. Insulin [place], Disposable, 32 gauge x 5/16 ndle Use four times daily with insulin QUEtiapine XR (SEROQUEL XR) 300 mg 24 hr tablet Take 300 mg by mouth daily at bedtime. Blood Pressure Monitor EXLARGE BLOOD PRESSURE CUFF MO (more content not included)... Normal [facility] Urinalysis complete panel (U )on 03-10-2025 BACTERIA UL >9821 High Negative [facility] Comment on above: Order Comment: Speci men Type: URINE SPECIMEN Ordering Facility: [facility] Address: [address] [place] [address] Performed By: #### 2 4356-8 #### [facility] CLIA [id number] [address] [place] [address] [place] Bilirubin Ql (U) Negative Normal Negative [facility] Comment on above: Order Comment: Speci men Type: URINE SPECIMEN Ordering Facility: [facility] Address: [address] [place] [address] Performed By: #### 2 4356-8 #### [facility] CLIA [id number] [address] [place] [address] [place] Clarity (Unsp spec) Clear Normal Clear [facility] Comment on above: Order Comment: Speci men Type: URINE SPECIMEN Ordering Facility: [facility] Address: [address] [place] [address] Performed By: #### 2 4356-8 #### [facility] CLIA [id number] [address] [place] [address] [place] Color (U) Yellow Normal Yellow [facility] Comment on above: Order Comment: Speci men Type: URINE SPECIMEN Ordering Facility: [facility] Address: [address] [place] [address] Performed By: #### 2 4356-8 #### [facility] CLIA [id number] [address] [place] [address] [place] Epithelial cells LM.HPF (Urine sed) [#/Area] Few Normal [facility] Comment on above: Order Comment: Speci men Type: URINE SPECIMEN Ordering Facility: [facility] Address: [address] [place] [address] Performed By: #### 2 4356-8 #### [facility] CLIA [id number] [address] [place] [address] [place] Glucose Test strip (U) [Mass/Vol] 3+ Abnormal Negative [facility] Comment on above: Order Comment: Speci men Type: URINE SPECIMEN Ordering Facility: [facility] Address: [address] [place] [address] Performed By: #### 2 4356-8 #### [facility] CLIA [id number] [address] [place] [address] [place] Hemoglobin Ql (U) Negative Normal Negative [facility] Comment on above: Order Comment: Speci men Type: URINE SPECIMEN Ordering Facility: [facility] Address: [address] [place] [address] Performed By: #### 2 4356-8 #### [facility] CLIA [id number] [address] [place] [address] [place] Hyaline casts (Urine sed) [#/Area] 1-3 /LPF Abnormal 0 /LPF [facility] Comment on above: Order Comment: Speci men Type: URINE SPECIMEN Ordering Facility: [facility] Address: [address] [place] [address] Performed By: #### 2 4356-8 #### [facility] CLIA [id number] [address] [place], [place] [id number] [place] Ketones Ql (U) Trace Abnormal Negative [facility] Comment on above: Order Comment: Speci men Type: URINE SPECIMEN Ordering Facility: [facility] Address: [address] [place] [address] Performed By: #### 2 4356-8 #### [facility] CLIA [id number] [address] [place] [address] [place] Leukocyte esterase Test strip Ql (U) Negative Normal Negative [facility] Comment on above: Order Comment: Speci men Type: URINE SPECIMEN Ordering Facility: [facility] Address: [address] [place] [address] Performed By: #### 2 4356-8 #### [facility] CLIA [id number] [address] [place] [address] [place] Nitrite Ql (U) Positive Abnormal Negative [facility] Comment on above: Order Comment: Speci men Type: URINE SPECIMEN Ordering Facility: [facility] Address: [address] [place] [address] Performed By: #### 2 4356-8 #### [facility] CLIA [id number] [address] [place] [address] [place] pH (U) 5.5 [pH] Normal 5.0-8.0 [facility] Comment on above: Order Comment: Speci men Type: URINE SPECIMEN Ordering Facility: [facility] Address: [address] [place] [address] Performed By: #### 2 4356-8 #### [facility] CLIA [id number] [address] [place] [address] [place] Protein (U) [Mass/Vol] Trace Abnormal Negative [facility] Comment on above: Order Comment: Speci men Type: URINE SPECIMEN Ordering Facility: [facility] Address: [address] [place] [address] Performed By: #### 2 4356-8 #### [facility] CLIA [id number] [address] [place] [address] [place] RBC LM.HPF (Urine sed) [#/Area] 0-2 /HPF Normal 0-2 /HPF [facility] Comment on above: Order Comment: Speci men Type: URINE SPECIMEN Ordering Facility: [facility] Address: [address] [place] [address] Performed By: #### 2 4356-8 #### [facility] CLIA [id number] [address] [place] [address] [place] Specific gravity (U) [Rel density] 1.023 Normal 1.005-1.030 [facility] Comment on above: Order Comment: Speci men Type: URINE SPECIMEN Ordering Facility: [facility] Address: [address] [place] [address] Performed By: #### 2 4356-8 #### [facility] CLIA [id number] [address] [place] [address] [place] Urobilinogen Ql (U) 0.2 EU/dL Normal 0.2-1.0 EU/dL [facility] Comment on above: Order Comment: Speci men Type: URINE SPECIMEN Ordering Facility: [facility] Address: [address] [place] [address] Performed By: #### 2 4356-8 #### [facility] CLIA [id number] [address] [place] [address] [place] WBC LM.HPF (Urine sed) [#/Area] 6-10 /HPF Abnormal 0-5 /HPF [facility] Comment on above: Order Comment: Speci men Type: URINE SPECIMEN Ordering Facility: [facility] Address: [address] [place] [address] Performed By: #### 2 4356-8 #### [facility] CLIA [id number] [address] [place] [address] [place] Yeast.budding LM.HPF (Urine sed) [#/Area] Present Abnormal None Seen [facility] Comment on above: Order Comment: Speci men Type: URINE SPECIMEN Ordering Facility: [facility] Address: [address] [place] [address] Performed By: #### 2 4356-8 #### [facility] CLIA [id number] [address] [place] [address] [place] Eric 03-09-2025 [facility] Telephone (FAMPWS) ANJUMIVET Diaz ([id number]) 1955 F Date Time Provider Department 03/09/25 [facility] During your visit today, we recorded the following information about you: Diane Guillermo RN 03/09/2025 1:19 PM Signed Pt called in and reports she is still coughing non-stop and bringing up thick white-yellow phlegm. Pt states once she starts she isn't able to start. She reports she is still having the Shortness of Breath that she was having when she saw Duyen Melo NP on 03/01/25. Pt denies fever, wheezing, or chest pain. Pt states she was put on 5 days of antibiotics and has been off of them for a few days. I told her typically the provider would want her to come in and be seen again, Pt declined appointment. Pt is asking if provider would call and antibiotic in for her to [facility] in [place]. Please call and advise. NITIN Joel William J, MD 03/09/2025 1:59 PM Signed Agree. Needs seen Diane Guillermo RN 03/09/2025 2:58 PM Signed Pt called and is notified of providers message. Pt voices understanding. Pt scheduled tomorrow with Duyen Melo NP. Diane Guillermo RN Allergies As of Date: 03/09/2025 Noted Allergy Reaction CHANTIX (VARENICLINE) 01/22/2019 1 - Mental Status Change PENICILLINS 05/25/2008 4 - Hives SULFA (SULFONAMIDE ANTIBIOTICS) 09/19/2016 2 - Rash 14 - Other: See Comments Comments: Blisters and sore in throat Date Reviewed: 03/01/2025 Reviewed by: Jaycee Cohn LPN - Fully Assessed Reason for Visit: Medication Request [138] Patient Update [1234] Prescriptions as of 03/09/2025 - promethazine (PHENERGAN) 25 mg tablet Take 1 tablet by mouth every 6 hours as needed for nausea/vomiting. - Blood-Glucose Meter monitoring kit Glucose Meter of Choice - Kit - Dx: Type 2 DM - Uncontrolled E11.65 - blood sugar diagnostic (FREESTYLE LITE STRIPS) test strip Test blood sugar(s) 3-4 times daily. Dx: Type 2 DM - Uncontrolled E11.65 Insulin: Yes - rosuvastatin (CRESTOR) 5 mg tablet Take 1 tablet by mouth once daily. - Cyanocobalamin 1,000 mcg TbER Take 1 tablet by mouth once daily. B12 - ergocalciferol 50,000 unit capsule (VITAMIN D2, DRISDOL) Take 1 capsule by mouth every other week. - gabapentin (NEURONTIN) 400 mg capsule Take 1 capsule by mouth three times a day for 90 days. - Lancets Test blood sugar(s) 3-4 times daily. Dx: Type 2 DM-Controlled Insulin: Yes - blood sugar diagnostic (BLOOD GLUCOSE TEST) test strip Test blood sugar(s) 3-4 times daily. Dx: Type 2 DM - Controlled E11.9 Insulin: Yes - omeprazole (PRILOSEC) 40 mg capsule Take 1 capsule by mouth once daily. - insulin glargine U-300 conc (TOUJEO) 300 unit/mL (1.5 mL) Inject 80 Units subcutaneously every morning. E11.9 Dispense 2 boxes of 3 pens. - insulin lispro (HUMALOG KWIKPEN INSULIN) 100 unit/mL Inject 12 Units subcutaneously three times a day before meals. And sliding scale up to 38 units tid. - Insulin [place], Disposable, (BD ULTRA-FINE MINDY PEN NEEDLE) 32 gauge x 5/32 Use one needle for each dose, 4 times daily. (4mm) - albuterol HFA (VENTOLIN HFA) 90 mcg/actuation inhaler Inhale 2 Puffs as instructed every 4 hours as needed. - fluticasone-vilanterol (BREO ELLIPTA) 100-25 mcg/dose inhaler Inhale 1 Inhalation as instructed once daily. - nystatin (MYCOSTATIN) powder Apply 1 application to affected area four times daily. - albuterol (PROVENTIL) 2.5 mg /3 mL (0.083 %) nebulizer solution Use 3 mL via nebulizer every 4 hours as needed for wheezing/shortness of breath. Use over 5-15minutes. - busPIRone (BUSPAR) 10 mg tablet Take 1 tablet by mouth three times daily. - escitalopram oxalate (LEXAPRO) 20 mg tablet Take 10 mg by mouth once daily. - buPROPion XL (WELLBUTRIN XL) 150 mg 24 hr tablet Take 300 mg by mouth once daily. - Insulin [place], Disposable, 32 gauge x 5/16 ndle Use four times daily with insulin - QUEtiapine XR (SEROQUEL XR) 300 mg 24 hr tablet Take 300 mg by mouth daily at bedtime. - Blood Pressure Monitor EXLARGE BLOOD PRESSURE CUFF MONITOR KIT checking bp 4 times daily Problem List As Of Date 03/09/2025 Noted Resolved TOBACCO USE DISORDER [F17.200] CERVICAL DISC DEGEN [M50.30] Chronic bronchitis (HCC) [J42] Depressive disorder, not elsewhere classified [* 01/05/2022 Persistent disorder of initiating or maintainin*05/25/2008 01/05/2022 Migraine with aura [G43.109] PANIC DISORDER WITHOUT AGORAPHOBIA [F41.0] Fibromyalgia [M79.7] History of recurrent UTIs [Z87.440] 11/30/2015 Uncontrolled type 2 diabetes mellitus with hype* Secondary polycythemia [D75.1] 09/10/2017 Depression, major, recurrent, in complete remis*07/23/2018 Hyperlipidemia, mixed [E78.2] 02/01/2019 Chronic cough [R05.3] 01/04/2020 01/05/2022 Obesity, Class II, BMI 35-39.9 [E66.812] 02/29/2020 SOB (shortness of breath) [R06.02] 08/23/2020 01/05/2022 Acute bron (more content not included)... Normal [facility] 25(OH)D3 Jan-Negar 2024 25-hydroxyvitamin D3 [Mass/Vol] 16.6 ng/mL Low 31.0-80.0 [facility] Comment on above: Order Comment: Speci men Type: BLOOD SPECIMENOrdering Facility: [facility] Address: [address] [place] [address] Result Comment: Clas sification of 25 [place] Vitamin D status: Deficiency/Insufficiency: < or = 30 ng/ml. Sufficiency/Optimal Levels: 31-80 ng/mL Toxicity: > 100 ng/mL. Test performed by chemiluminescent immunoassay. Performed By: #### 1 989-3 ####[facility] [id number] [address] [address] [place] 25-hydroxyvitamin D3 [Mass/V ol]on 03-01-2025 Interpretation and review of laboratory results Abnormal [facility] The reference range interval was based on an analysis of samples from healthy adults and may not pertain to children from 0-18 years old. [facility] ALBUMIN/CREATININE RATIO, UR INEon 03-01-2025 Albumin DL <= 20 mg/L (U) [Mass/Vol] 39.7 mg/L Normal [facility] Comment on above: Order Comment: Speci men Type: URINE SPECIMENOrdering Facility: [facility] Address: [address] [place] [address] Performed By: #### U ACR ####[facility] [id number] [address] [place] [address] [place] Albumin/Creatinine (U) [Mass ratio] 46 mg/g High <30 [facility] Comment on above: Order Comment: Speci men Type: URINE SPECIMENOrdering Facility: [facility] Address: [address] [place] [address] Result Comment: Adul t Male and Female Nephrotic Criteria: <30 mg/g is considered normal to mildly increased 30-300 mg/g is considered moderately increased >300 mg/g is considered severely increased KDIGO. (2013). KDIGO 2012 Clinical Practice Guideline for the Evaluation and Management of Chronic Kidney Disease. Official Journal of the International Society of Nephrology, 3(1), 1-150. Performed By: #### U ACR ####[facility] [id number] [address] [place] [address] [place] Creatinine (U) [Mass/Vol] 86.7 mg/dL Normal 20.0-300.0 [facility] Comment on above: Order Comment: Speci men Type: URINE SPECIMENOrdering Facility: [facility] Address: [address] [place] [address] Performed By: #### U ACR ####[facility] [id number] [facility] [place] [address] [place] Bacteria Ur Culton 5 Bacteria identified Cx Nom (U) ORGANISM ID: 1 >=100,000 CFU/ml Escherichia coli Extended-spectrum beta-lactamase (ESBL) production detected in this isolate. ESBL producing strains are considered resistant to all cephalosporins, penicillins, and aztreonam. ORGANISM ID: 1 (ESCHERICHIA COLI) -- ANTIBIOTIC INTERPRETATION STEPHEN STATUS REFERENCE RANGE -- Ampicillin R >=32 F Susceptible <=8 , Intermediate >8 , Resistant >16 Cefazolin R >=64 F Susceptible 0-16 , Intermediate <0 or >16 , Resistant >16 For uncomplicated urinary tract infections, cefazolin results can be used to predict susceptibility or resistance to cephalexin. Ceftriaxone R 8 F Susceptible <=1 , Intermediate >1 , Resistant >=4 Cefepime R F Ertapenem S <=0.5 F Susceptible <=0.5 , Intermediate >.5 , Resistant >1 Meropenem S <=0.25 F Susceptible <=1 , Intermediate >1 , Resistant >2 Gentamicin S <=1 F Susceptible <=2 , Intermediate >2 , Resistant >=8 Tobramycin R >=16 F Susceptible <4 , Intermediate >=4 , Resistant >=8 Amikacin R 16 F Susceptible <8 , Intermediate >=8 , Resistant >=16 Trimeth sulfameth R >=320 F Susceptible <=40 , Resistant >40 Ciprofloxacin R >=4 F Susceptible <0.5 , Intermediate >=.5 , Resistant >=1 Nitrofurantoin S <=16 F Susceptible <=32 , Intermediate >32 , Resistant >64 Abnormal [facility] Comment on above: Performed By: #### 6 30-4 ####[facility] [id number] [address] [facility] CBC W Auto Differential pane l (Bld)on 03-01-2025 Basophils (Bld) [#/Vol] 0.07 10*3/uL [facility] Basophils/100 WBC (Bld) 0.5 % [facility] Differential cell count method Nom (Bld) Auto [facility] Eosinophils (Bld) [#/Vol] 0.15 10*3/uL [facility] Eosinophils/100 WBC (Bld) 1.2 % [facility] Erythrocyte distribution width (RBC) [Ratio] 13.2 % 11.5 - 15.0 % [facility] Hematocrit (Bld) [Volume fraction] 43.8 % 36.0 - 46.0 % [facility] Hemoglobin (Bld) [Mass/Vol] 14 g/dL 11.5 - 15.5 g/dL [facility] Immature granulocytes (Bld) [#/Vol] 0.08 10*3/uL [facility] Immature granulocytes/100 WBC (Bld) 0.6 % [facility] Interpretation and review of laboratory results Abnormal [facility] Lymphocytes (Bld) [#/Vol] 2.88 10*3/uL [facility] Lymphocytes/100 WBC (Bld) 22.4 % [facility] MCH (RBC) [Entitic mass] 30.5 pg 26. 0 - 34.0 pg [facility] MCHC (RBC) [Mass/Vol] 32 g/dL 30.5 - 36.0 g/dL [facility] MCV (RBC) [Entitic vol] 95.4 fL 80.0 - 100.0 fL [facility] Monocytes (Bld) [#/Vol] 0.77 10*3/uL [facility]F [facility] Monocytes/100 WBC (Bld) 6 % C [facility] Neutrophils (Bld) [#/Vol] 8.89 10*3/uL High [facility] Neutrophils/100 WBC (Bld) 69.3 % [facility] Nucleated RBC (Bld) [#/Vol] NINF [facility] Nucleated RBC/100 WBC (Bld) [Ratio] 0 % /100 WBC [facility] Platelet mean volume (Bld) [Entitic vol] 9.6 fL 9.0 - 12.7 fL [facility] Platelets (Bld) [#/Vol] 362 10*3/uL [facility] RBC (Bld) [#/Vol] 4.59 10*6/uL 3.90 - 5.2 0 m/uL [facility] WBC (Bld) [#/Vol] 12.84 10*3/uL High [facility] Basophils (Bld) [#/Vol] 0.07 10*3/uL Normal <0.11 [facility] Comment on above: Order Comment: Speci men Type: BLOOD SPECIMEN Ordering Facility: [facility] Address: [address] [place] [address] Performed By: #### 5 7021-8 #### [facility] CLIA [id number] [address] [place] [address] [place] Basophils/100 WBC (Bld) 0.5 % Normal [facility] Comment on above: Order Comment: Speci men Type: BLOOD SPECIMEN Ordering Facility: [facility] Address: [address] [place] [address] Performed By: #### 5 7021-8 #### [facility] CLIA [id number] [address] [place] [address] [place] Differential cell count method Nom (Bld) Auto Normal [facility] Comment on above: Order Comment: Speci men Type: BLOOD SPECIMEN Ordering Facility: [facility] Address: [address] [place] [address] Performed By: #### 5 7021-8 #### [facility] CLIA [id number] [address] [place] [address] [place] Eosinophils (Bld) [#/Vol] 0.15 10*3/uL Normal <0.46 [facility] Comment on above: Order Comment: Speci men Type: BLOOD SPECIMEN Ordering Facility: [facility] Address: [address] [place] [address] Performed By: #### 5 7021-8 #### [facility] CLIA [id number] [address] [place] [address] [place] Eosinophils/100 WBC (Bld) 1.2 % Normal [facility] Comment on above: Order Comment: Speci men Type: BLOOD SPECIMEN Ordering Facility: [facility] Address: [address] [place] [address] Performed By: #### 5 7021-8 #### [facility] CLIA [id number] [address] [place] [address] [place] Erythrocyte distribution width (RBC) [Ratio] 13.2 % Normal 11.5-15.0 [facility] Comment on above: Order Comment: Speci men Type: BLOOD SPECIMEN Ordering Facility: [facility] Address: [address] [place] [address] Performed By: #### 5 7021-8 #### [facility] CLIA [id number] [address] [place] [address] [place] Hematocrit (Bld) [Volume fraction] 43.8 % Normal 36.0-46.0 [facility] Comment on above: Order Comment: Speci men Type: BLOOD SPECIMEN Ordering Facility: [facility] Address: [address] [place] [address] Performed By: #### 5 7021-8 #### [facility] CLIA [id number] [address] [place] [address] [place] Hemoglobin (Bld) [Mass/Vol] 14.0 g/dL Normal 11.5-15.5 [facility] Comment on above: Order Comment: Speci men Type: BLOOD SPECIMEN Ordering Facility: [facility] Address: [address] [place] [address] Performed By: #### 5 7021-8 #### [facility] CLIA [id number] [address] [place] [address] [place] Immature granulocytes (Bld) [#/Vol] 0.08 10*3/uL Normal <0.10 [facility] Comment on above: Order Comment: Speci men Type: BLOOD SPECIMEN Ordering Facility: [facility] Address: [address] [place] [address] Performed By: #### 5 7021-8 #### [facility] CLIA [id number] [address] [place] [address] [place] Immature granulocytes/100 WBC (Bld) 0.6 % Normal [facility] Comment on above: Order Comment: Speci men Type: BLOOD SPECIMEN Ordering Facility: [facility] Address: [address] [place] [address] Performed By: #### 5 7021-8 #### [facility] CLIA [id number] [address] [place] [address] [place] Lymphocytes (Bld) [#/Vol] 2.88 10*3/uL Normal 1.00-4.00 [facility] Comment on above: Order Comment: Speci men Type: BLOOD SPECIMEN Ordering Facility: [facility] Address: [address] [place] [address] Performed By: #### 5 7021-8 #### [facility] CLIA [id number] [address] [place] [address] [place] Lymphocytes/100 WBC (Bld) 22.4 % Normal [facility] Comment on above: Order Comment: Speci men Type: BLOOD SPECIMEN Ordering Facility: [facility] Address: [address] [place] [address] Performed By: #### 5 7021-8 #### [facility] CLIA [id number] [address] [place] [address] [place] MCH (RBC) [Entitic mass] 30.5 pg Normal 26.0-34.0 [facility] Comment on above: Order Comment: Speci men Type: BLOOD SPECIMEN Ordering Facility: [facility] Address: [address] [place] [address] Performed By: #### 5 7021-8 #### [facility] CLIA [id number] [address] [place] [address] [place] MCHC (RBC) [Mass/Vol] 32.0 g/dL Normal 30.5-36.0 [facility] Comment on above: Order Comment: Speci men Type: BLOOD SPECIMEN Ordering Facility: [facility] Address: [address] [place] [address] Performed By: #### 5 7021-8 #### [facility] CLIA [id number] [address] [place] [address] [place] MCV (RBC) [Entitic vol] 95.4 fL Normal 80.0-100.0 [facility] Comment on above: Order Comment: Speci men Type: BLOOD SPECIMEN Ordering Facility: [facility] Address: [address] [place] [address] Performed By: #### 5 7021-8 #### [facility] CLIA [id number] [address] [place] [address] [place] Monocytes (Bld) [#/Vol] 0.77 10*3/uL Normal <0.87 [facility] Comment on above: Order Comment: Speci men Type: BLOOD SPECIMEN Ordering Facility: [facility] Address: [address] [place] [address] Performed By: #### 5 7021-8 #### [facility] CLIA [id number] [address] [place] [id number] [address] [place] Monocytes/100 WBC (Bld) 6.0 % Normal [facility] Comment on above: Order Comment: Speci men Type: BLOOD SPECIMEN Ordering Facility: [facility] Address: [address] [place] [address] Performed By: #### 5 7021-8 #### [facility] CLIA [id number] [address] [place] [address] [place] Neutrophils (Bld) [#/Vol] 8.89 10*3/uL High 1.45-7.50 [facility] Comment on above: Order Comment: Speci men Type: BLOOD SPECIMEN Ordering Facility: [facility] Address: [address] [place] [address] Performed By: #### 5 7021-8 #### [facility] CLIA [id number] [address] [place] [address] [place] Neutrophils/100 WBC (Bld) 69.3 % Normal [facility] Comment on above: Order Comment: Speci men Type: BLOOD SPECIMEN Ordering Facility: [facility] Address: [address] [place] [address] Performed By: #### 5 7021-8 #### [facility] CLIA [id number] [address] [place] [address] [place] Nucleated RBC (Bld) [#/Vol] 10*3/uL Normal <0.01 [facility] Comment on above: Order Comment: Speci men Type: BLOOD SPECIMEN Ordering Facility: [facility] Address: [address] [place] [address] Performed By: #### 5 7021-8 #### [facility] CLIA [id number] [address] [place] [address] [place] Nucleated RBC/100 WBC (Bld) [Ratio] 0.0 /100 WBC Normal [facility] Comment on above: Order Comment: Speci men Type: BLOOD SPECIMEN Ordering Facility: [facility] Address: [address] [place] [address] Performed By: #### 5 7021-8 #### [facility] CLIA [id number] [address] [place] [address] [place] Platelet mean volume (Bld) [Entitic vol] 9.6 fL Normal 9.0-12.7 [facility] Comment on above: Order Comment: Speci men Type: BLOOD SPECIMEN Ordering Facility: [facility] Address: [address] [place] [address] Performed By: #### 5 7021-8 #### [facility] CLIA [id number] [address] [place] [address] [place] Platelets (Bld) [#/Vol] 362 10*3/uL Normal 150-400 [facility] Comment on above: Order Comment: Speci men Type: BLOOD SPECIMEN Ordering Facility: [facility] Address: [address] [place] [address] Performed By: #### 5 7021-8 #### [facility] CLIA [id number] [address] [place] [address] [place] RBC (Bld) [#/Vol] 4.59 10*6/uL Normal 3.90-5.20 [facility] Comment on above: Order Comment: Speci men Type: BLOOD SPECIMEN Ordering Facility: [facility] Address: [address] [place] [address] Performed By: #### 5 7021-8 #### [facility] CLIA [id number] [address] [place] [address] [place] WBC (Bld) [#/Vol] 12.84 10*3/uL High 3.70-11.00 [facility] Comment on above: Order Comment: Speci men Type: BLOOD SPECIMEN Ordering Facility: [facility] Address: [address] [place] [address] Performed By: #### 5 7021-8 #### [facility] CLIA [id number] [address] [place] [address] [facility] CNOVon 03-01-2025 CNOV Office Visit (FAMPWS ) IVET VALERO ([id number]) 1955 F Date Time Provider Department 03/01/25 9:20 [facility] During your visit today, we recorded the following information about you: Temperature Pulse Blood pressure Weight 98.5 degrees 110/minute 132/68 102.1 kg Height 1.6 m Smiley Melo APRN.CNP 03/01/2025 10:06 AM Signed Chief Reason For Appointment Patient presents with: UTI: Dysuria and frequency 3-4 weeks + abd pain Cough: Nonproductive two and a half weeks Ivetsilvestre Valero is a 69 year old female who presents for annual exam. Last office visit date: 07/26/2024 Accompanied By self only Have you had any critical events, hospital stays, ER visits, surgeries or procedures since your last visit here in our office: No Specialists/Other Healthcare Providers Seen: Patient Care Team: Ricci Cole MD as PCP - General (Family Medicine) Toña Sawyer MD (Endocrinology) Friend, Dylan Huffman DO as Oil Agent (Gastroenterology) Nanci Huber APRN.CNP as Tech Brazer Tester (Family Medicine) Smiley Melo APRN.CNP as Tech Brazer Tester (Family Medicine) Concerns today: Cough, congestion and burning with urination HPI Here for wellness visit but sick. Has been sick for 3 weeks. Laying on couch. Not even able to get groceries. DM: Reports overall feeling well. Medication side effects: No. Home sugar checks: Not testing Hypoglycemic spells: No. Watching diet: No. Unexpected weight loss: No. Polyuria, polydipsia: Yes. Vision Changes: Yes. Foot lesions or numbness or pain: Yes. Ivet Valero is a 69-year-old female with a history of diabetes and bronchitis, presenting with dysuria, chest congestion, and headaches. Dysuria: - Chronic dysuria. - History of hospitalization for UTI. Chest Congestion: - Chest congestion x3 weeks. - Associated with headaches, cough, wheezing, and dyspnea. - Producing phlegm. - Denies fever, chills, or diarrhea. Headaches: - Severe headaches x3 weeks, exacerbated by coughing. - No aura preceding headaches. - If not controlled, headaches progress to migraines. Nausea: - Nausea with dry heaving x3 weeks. Diabetes: - Blood sugars fairly in the middle. - Ivet needs a new glucose meter. - Denies hypoglycemia. - Reports excessive thirst. - Vision changes; plans for cataract surgery. - Mild numbness and tingling in feet. Bronchitis: - Not taking Breo or inhaler due to perceived lack of efficacy. - Smoker, but reports reduced smoking. - Tried Chantix previously, but experienced adverse effects. Generalized Aches: - Ivet reports generalized body aches. Dizziness: - Experiences dizziness upon standing, requiring a moment to stabilize. Active Problems ACTIVE PROBLEM LIST Mixed Stress and Urge Urinary Incontinence - 04/16/2023 Comment: Has seen urology for same. Esophageal Varices Without Bleeding (Hcc) - 07/22/2022 Denny (Nonalcoholic Steatohepatitis) - 06/14/2022 Leukocytosis - 01/05/2022 Comment: Has seen Dr. Salazar chronic leukocytosis secondary to chronic bronchitis and tobacco abuse Secondary polycythemia secondary to tobacco abuse AND Carbon Monoxide toxicity Chronic Gastritis Without Bleeding - 09/07/2021 Comment: 11/07/17 NM gastric emptying solid: 1% retention at 1hr (rapid emptying is <30% retention at 1hr) = accelerated rate. 12/06/[address] Garcia dx nausea: patchy erythema in gastric antrum, esophagus, duodenum WNL, Large amount of food in stomach.Rec gastric emptying study. 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 Chronic Bronchitis (Hcc) Migraine With Aura Panic Disorder Without Agoraphobia ROS: Constitutional: (-) fever, (-) chills Head: (+) headaches Eyes: (+) vision changes Ears/Nose/Mouth/Throat : (+) head congestion, (-) ear pressure Respiratory: (+) chest congestion, (+) shortness of breath, (+) cough, (+) wheezing, (+) sputum production Gastrointestinal: (+) nausea, (+) vomiting, (-) diarrhea Genitourinary: (+) dysuria, (-) hematuria Musculoskeletal: (+) body aches Neurological: (+) dizziness, (+) paresthesia feet Psychiatric: (-) suicidal thoughts Endocrine: (+) excessive thirst, (-) hypoglycemia PAST MEDICAL HISTORY Diagnosis Date Chronic airway obstruction, not elsewhere classified Degeneration of cervical intervertebral disc related to neck injury Depressive disorder, n (more content not included)... Normal [facility] Comprehensive metabolic 2000 panelon 03-01-2025 Albumin [Mass/Vol] 4.0 g/dL Normal 3.9-4.9 [facility] Comment on above: Order Comment: Speci men Type: BLOOD SPECIMENOrdering Facility: [facility] Address: [address] [place] [address] Performed By: #### L IPNF, 61606-9, 86497-0, 3016-3 ####[facility] [id number] [place] [address] [place] ALP [Catalytic activity/Vol] 67 U/L Normal 34-123 [facility] Comment on above: Order Comment: Speci men Type: BLOOD SPECIMENOrdering Facility: [facility] Address: [address] [place] [address] Performed By: #### L IPNF, 47417-1, 52880-7, 3016-3 ####[facility] [id number] [place] [address] [place] ALT [Catalytic activity/Vol] 14 U/L Normal 7-38 [facility] Comment on above: Order Comment: Speci men Type: BLOOD SPECIMENOrdering Facility: [facility] Address: [address] [place] [address] Performed By: #### L IPNF, 84774-2, 19286-6, 3016-3 ####[facility] [id number] [address] [address] [place] Anion gap [Moles/Vol] 13 mmol/L Normal 8-15 [facility] Comment on above: Order Comment: Speci men Type: BLOOD SPECIMENOrdering Facility: [facility] Address: [address] [place] [address] Performed By: #### L IPNF, , 32060-8, 3016-3 ####[facility] [id number] [place] [address] [place] AST [Catalytic activity/Vol] 22 U/L Normal 13-35 [facility] Comment on above: Order Comment: Speci men Type: BLOOD SPECIMENOrdering Facility: [facility] Address: [address] [place] [address] Performed By: #### L IPNF, , 68788-9, 3016-3 ####[facility] [id number] [place] [address] [place] Bilirubin [Mass/Vol] 0.4 mg/dL Normal 0.2-1.3 [facility] Comment on above: Order Comment: Speci men Type: BLOOD SPECIMENOrdering Facility: [facility] Address: [address] [place] [address] Performed By: #### L IPNF, 49315-5, 48482-6, 3016-3 ####[facility] [id number] [address] [address] [place] Calcium [Mass/Vol] 9.5 mg/dL Normal 8.5-10.2 [facility] Comment on above: Order Comment: Speci men Type: BLOOD SPECIMENOrdering Facility: [facility] Address: [address] [place] [address] Performed By: #### L IPNF, 21070-6, 80803-0, 3016-3 ####[facility] [id number] [place] [address] [place] Chloride [Moles/Vol] 101 mmol/L Normal 98-107 [facility] Comment on above: Order Comment: Speci men Type: BLOOD SPECIMENOrdering Facility: [facility] Address: [address] [place] [address] Performed By: #### L IPNF, , 85990-2, 6-3 ####[facility] [id number] [place] [address] [place] CO2 [Moles/Vol] 22 mmol/L Normal 22-30 [facility] Comment on above: Order Comment: Speci men Type: BLOOD SPECIMENOrdering Facility: [facility] Address: [address] [place] [address] Performed By: #### L IPJOSE LUIS, , 25959-9, 6-3 ####[facility] [id number] [place] [address] [place] Creatinine [Mass/Vol] 0.64 mg/dL Normal 0.58-0.96 [facility] Comment on above: Order Comment: Speci men Type: BLOOD SPECIMENOrdering Facility: [facility] Address: [address] [place] [address] Performed By: #### L IPNF, , 46678-5, 3016-3 ####[facility] [id number] [address] [address] [place] Creatinine and Glomerular filtration rate.predicted panel (S/P/Bld) 97 mL/min/1.73m??? Normal >=60 [facility] Comment on above: Order Comment: Jessica frank Type: BLOOD SPECIMENOrdering Facility: [facility] Address: [address] [place] [address] Result Comment: Odalis mated Glomerular Filtration Rate (eGFR) is calculated using the 2020 CKD-EPI creatinine equation. This equation utilizes serum creatinine, sex, and age as parameters. The creatinine assay has traceable calibration to isotope dilution-mass spectrometry. Refer to KDIGO guidelines for clinical interpretation. In patients with unstable renal function, e.g. those with acute kidney injury, the eGFR may not accurately reflect actual GFR. Performed By: #### L IPJOSE LUIS, 73726-0, 61779-6, 6-3 ####[facility] [id number] [address] [address] [place] Glucose [Mass/Vol] 263 mg/dL High 74-99 [facility] Comment on above: Order Comment: Jessica frank Type: BLOOD SPECIMENOrdering Facility: [facility] Address: [address] [place] [address] Result Comment: The [place] Diabetes Association (ADA) provides guidance for cutoff values for fasting glucose and random glucose. The ADA defines fasting as no caloric intake for at least 8 hours. Fasting plasma glucose results between 100 to 125 [...] Standards of Medical Care in Diabetes 2016, [place] Diabetes Association. Diabetes Care. 2016.39(Suppl 1). Performed By: #### L IPNF, 14131-5, 47478-6, 6-3 ####[facility] [id number] [address] [address] [place] Potassium [Moles/Vol] 5.0 mmol/L Normal 3.7-5.1 [facility] Comment on above: Order Comment: Speci men Type: BLOOD SPECIMENOrdering Facility: [facility] Address: [address] [place] [address] Performed By: #### L IPNF, , 69196-5, 3015-3 ####[facility] [id number] [address] [place] [address] [place] Protein [Mass/Vol] 6.9 g/dL Normal 6.3-8.0 [facility] Comment on above: Order Comment: Speci men Type: BLOOD SPECIMENOrdering Facility: [facility] Address: [address] [place] [address] Performed By: #### L IPNF, , , 3015-3 ####[facility] [id number] [address] [address] [place] Sodium [Moles/Vol] 136 mmol/L Normal 136-144 [facility] Comment on above: Order Comment: Speci men Type: BLOOD SPECIMENOrdering Facility: [facility] Address: [address] [place] [address] Performed By: #### L IPNF, , , 3015-3 ####[facility] [id number] [address] [address] [place] Urea nitrogen [Mass/Vol] 8 mg/dL Normal 7-21 [facility] Comment on above: Order Comment: Speci men Type: BLOOD SPECIMENOrdering Facility: [facility] Address: [address] [place] [address] Performed By: #### L IPNF, , , 3015-3 ####[facility] [id number] [address] [address] [place] HbA1c (Bld)on 03-01-2025 Average glucose Estimated from glycated hemoglobin (Bld) [Mass/Vol] 180 mg/dL Normal [facility] Comment on above: Order Comment: Jessica monika Type: BLOOD SPECIMENOrdering Facility: [facility] Address: [address] [place] [address] Result Comment: eAG: (Estimated average glucose) is a calculated value from HgbA1c and is rental representative of the average blood glucose level in the last 2-3 month period. Performed By: #### 5 5454-3 ####[facility] [id number] [place] [address] [place] HbA1c (Bld) [Mass fraction] 7.9 % High 4.3-5.6 [facility] Comment on above: Order Comment: Jessica monika Type: BLOOD SPECIMENOrdering Facility: [facility] Address: [address] [place] [address] Result Comment: [place] Diabetes Association guidelines indicate that patients with HgbA1c in the range 5.7-6.4% are at increased risk for development of diabetes, and intervention by lifestyle modification may be beneficial. HgbA1c greater or equal to 6.5% is considered diagnostic of diabetes. Performed By: #### 5 5454-3 ####[facility] [id number] [place] [address] [place] LIPID PANEL, NONFASTINGon Cholesterol [Mass/Vol] 223 mg/dL High <200 [facility] Comment on above: Order Comment: Jessica monika Type: BLOOD SPECIMENOrdering Facility: [facility] Address: [address] [place] [address] Result Comment: <200 mg/dL, Desirable 200-239 mg/dL, Borderline high >239 mg/dL, High Performed By: #### L IPNF, 10219-7, 40434-9, 3016-3 ####[facility] [id number] [place] [address] [place] HDL CHOLESTEROL, NF 63 mg/dL Normal >39 [facility] Comment on above: Order Comment: Tanneri men Type: BLOOD SPECIMENOrdering Facility: [facility] Address: [facility] [place] [address] Result Comment: 40-5 9 mg/dL, Acceptable >59 mg/dL, High: Negative risk factor for coronary heart disease <40 mg/dL, Low: Positive risk factor for coronary heart disease Performed By: #### L IPNF, 70815-3, 31843-2, 3016-3 ####[facility] [id number] [address] [place] LDL CHOLESTEROL CALCULATED, NF 133 mg/dL High <100 [facility] Comment on above: Order Comment: Speci men Type: BLOOD SPECIMENOrdering Facility: [facility] Address: [address] [place] [address] Result Comment: <100 mg/dL, Optimal 100-129 mg/dL, Near optimal/above optimal 130-159 mg/dL, Borderline high 160-189 mg/dL, High >189 mg/dL, Very high Secondary prevention optimal LDL Cholesterol levels are recommended to be <70 mg/dL LDL cholesterol is calculated using the Quezada-NIH equation. Performed By: #### L IPJOSE LUIS, 49184-1, 42277-8, 3015-3 ####[facility] [id number] [address] LDL/HDL RATIO, NF 2.11 mg/dL Normal <2.54 [facility] Comment on above: Order Comment: Tanneri men Type: BLOOD SPECIMENOrdering Facility: [facility] Address: [address] [place] [address] Result Comment: Refe rence: 1. National Cholesterol Education Program ATP III Guideline At-A-Glance Quick Desk Reference: National Heart, Lung, and Blood [place]. National Institutes of Health. 2001: NIH Publication No. 01-3305. 2. An International Atherosclerosis Society position paper: global recommendations for the management of dyslipidemia: executive summary, Atherosclerosis. 2014: 232(2):410-413. Performed By: #### L IPNF, 16959-1, 41779-2, 6-3 ####[facility] [id number] [place] [address] [place] NON HDL CHOL, NF 160 mg/dL High <130 [facility] Comment on above: Order Comment: Speci men Type: BLOOD SPECIMENOrdering Facility: [facility] Address: [address] [place] [address] Result Comment: <130 mg/dL, Optimal 130-159 mg/dL, Near optimal/above optimal 160-189 mg/dL, Borderline high 190-219 mg/dL, High >219 mg/dL, Very high Secondary prevention optimal non HDL Cholesterol levels are recommended to be <100 mg/dL Performed By: #### L IPNF, 46006-8, 68339-3, 3015-3 ####[facility] [id number] [address] [place] T CHOL/HDL RATIO NF 3.54 mg/dL Normal <5.10 [facility] Comment on above: Order Comment: Speci men Type: BLOOD SPECIMENOrdering Facility: [facility] Address: [address] [place] [address] Performed By: #### L IPNF, , , 3015-3 ####[facility] [id number] [place] [address] [place] TRIGLYCERIDES, NF 153 mg/dL High <150 [facility] Comment on above: Order Comment: Speci men Type: BLOOD SPECIMENOrdering Facility: [facility] Address: [address] [place] [address] Result Comment: <150 mg/dL, Normal 150-199 mg/dL, Borderline high 200-499 mg/dL, High >499 mg/dL, Very high Performed By: #### L IPNF, , , 3015-3 ####[facility] [id number] [place] [id number] [place] VLDL CHOLESTEROL, NF 27 mg/dL Normal <30 [facility] Comment on above: Order Comment: Speci men Type: BLOOD SPECIMENOrdering Facility: [facility] Address: [address] [place] [address] Performed By: #### L IPNF, 98936-0, 99860-0, 3016-3 ####[facility] [id number] [place] [address] [place] Magnesium SerPl-mCncon 03-01 Magnesium [Mass/Vol] 1.7 mg/dL Normal 1.7-2.3 [facility] Comment on above: Order Comment: Speci men Type: BLOOD SPECIMENOrdering Facility: [facility] Address: [address] [place] [address] Performed By: #### L IPJOSE LUIS, 05260-6, 26803-2, 3016-3 ####[facility] [id number] [place] [address] [place] TSH SerPl-aCncon 03-01-2025 TSH Qn 1.660 m[IU]/L Normal 0.270-4.200 [facility] Comment on above: Order Comment: Speci men Type: BLOOD SPECIMENOrdering Facility: [facility] Address: [address] [place] [address] Performed By: #### L IPNF, 85654-4, 94225-9, 3016-3 ####[facility] [id number] [place] [address] [place] UA DIP, URINE (POC)on 2024 BILIRUBIN UA (POCT) Negative Negative [facility] CLARITY UA (POCT) Cloudy [facility] COLOR UA (POCT) Other [facility] GLUCOSE UA (POCT) 100 mg/dL Abnormal Negative [facility] Hemoglobin Ql (U) Trace-intact Abnormal Negative [facility] Interpretation and review of laboratory results Abnormal [facility] KETONE UA (POCT) Negative Negative mg/dL [facility] LEUKOCYTES UA (POCT) Small Abnormal Negative [facility] NITRITE UA (POCT) Positive Abnormal Negative [facility] PH UA (POCT) 5.5 4.5 - 8.0 [facility] Protein Ql (U) Trace Abnormal Negative mg/dL [facility] SPECIFIC GRAVITY UA (POCT) >=1.030 1.005 - 1.030 [facility] UROBILINOGEN UA (POCT) 0.2 Christine l E.U./dL [facility] Location:[address], [place], [place], [id number] [place] [address] POINT OF CARE [facility] VITAMIN D 25 HYDROXYon 03-01 25-hydroxyvitamin D3 [Mass/Vol] 16.6 ng/mL Low 31.0 - 80.0 ng/mL [facility] Comment on above: Classification of 25 [place] Vitamin D status: Deficiency/Insufficiency: < or = 30 ng/ml. Sufficiency/Optimal Levels: 31-80 ng/mL Toxicity: > 100 ng/mL. Test performed by chemiluminescent immunoassay. Vit B12 [facility] 025 Cobalamin (Vitamin B12) [Mass/Vol] 207 pg/mL Low 232-1245 [facility] Comment on above: Order Comment: Speci men Type: BLOOD SPECIMENOrdering Facility: [facility] Address: [address] [place] [address] Performed By: #### 2 132-9 ####[facility] [id number] [place] [address] [place] Eric 01-25-2025 [facility] IVET VALERO ([id number]) 1955 F Date Time Provider Department 01/25/25 RICCI COLE [facility] During your visit today, we recorded the following information about you: Kareen Lam 01/25/2025 9:07 AM Signed Patient requesting medication that is : promethazine (PHENERGAN) 25 mg suppository Patient last seen: 07-26-24 Future visit scheduled: yes PHARMACY: [facility] Allergies As of Date: 01/25/2025 Noted Allergy Reaction CHANTIX (VARENICLINE) 01/22/2019 1 - Mental Status Change PENICILLINS 05/25/2008 4 - Hives SULFA (SULFONAMIDE ANTIBIOTICS) 09/19/2016 2 - Rash 14 - Other: See Comments Comments: Blisters and sore in throat Date Reviewed: 07/26/2024 Reviewed by: Smiley Melo APRN.LINE THERAPIST - Fully Assessed Reason for Visit: requesting medication that is [Other] Visit Diagnosis:Chronic nausea [R11.0] Order(s):promethazine (PHENERGAN) 25 mg tabletTake 1 tablet by mouth every 6 hours as needed for nausea/vomiting.Disp: 20 tabletRfl: 2 Prescriptions as of 01/25/2025 - promethazine (PHENERGAN) 25 mg tablet Take 1 tablet by mouth every 6 hours as needed for nausea/vomiting. - omeprazole (PRILOSEC) 40 mg capsule Take 1 capsule by mouth once daily. - insulin glargine U-300 conc (TOUJEO) 300 unit/mL (1.5 mL) Inject 80 Units subcutaneously every morning. E11.9 Dispense 2 boxes of 3 pens. - insulin lispro (HUMALOG KWIKPEN INSULIN) 100 unit/mL Inject 12 Units subcutaneously three times a day before meals. And sliding scale up to 38 units tid. - gabapentin (NEURONTIN) 400 mg capsule Take 1 capsule by mouth three times a day for 90 days. - topiramate (TOPAMAX) 50 mg tablet Take 1 tablet by mouth two times a day. - blood sugar diagnostic (BLOOD GLUCOSE TEST) test strip Test blood sugar(s) 3-4 times daily. Dx: Type 2 DM - Controlled E11.9 Insulin: Yes - Lancets Test blood sugar(s) 3-4 times daily. Dx: Type 2 DM-Controlled Insulin: Yes - carvedilol (COREG) 12.5 mg tablet Take 1 tablet by mouth two times a day. - Insulin [place], Disposable, (BD ULTRA-FINE MINDY PEN NEEDLE) 32 gauge x 5/32 Use one needle for each dose, 4 times daily. (4mm) - albuterol HFA (VENTOLIN HFA) 90 mcg/actuation inhaler Inhale 2 Puffs as instructed every 4 hours as needed. - fluticasone-vilanterol (BREO ELLIPTA) 100-25 mcg/dose inhaler Inhale 1 Inhalation as instructed once daily. - nystatin (MYCOSTATIN) powder Apply 1 application to affected area four times daily. - ergocalciferol 50,000 unit capsule (VITAMIN D2, DRISDOL) Take 1 capsule by mouth one time a week. - albuterol (PROVENTIL) 2.5 mg /3 mL (0.083 %) nebulizer solution Use 3 mL via nebulizer every 4 hours as needed for wheezing/shortness of breath. Use over 5-15minutes. - atorvastatin (LIPITOR) 20 mg tablet Take 1 tablet by mouth daily at bedtime. For cholesterol. - busPIRone (BUSPAR) 10 mg tablet Take 1 tablet by mouth three times daily. - escitalopram oxalate (LEXAPRO) 20 mg tablet Take 20 mg by mouth once daily. - buPROPion XL (WELLBUTRIN XL) 150 mg 24 hr tablet Take 1 tablet by mouth once daily. - Insulin [place], Disposable, 32 gauge x 5/16 ndle Use four times daily with insulin - QUEtiapine XR (SEROQUEL XR) 300 mg 24 hr tablet Take 300 mg by mouth daily at bedtime. - Blood Pressure Monitor EXLARGE BLOOD PRESSURE CUFF MONITOR KIT checking bp 4 times daily Problem List As Of Date 01/25/2025 Noted Resolved TOBACCO USE DISORDER [F17.200] CERVICAL DISC DEGEN [M50.30] Chronic bronchitis (HCC) [J42] Depressive disorder, not elsewhere classified [* 01/05/2022 Persistent disorder of initiating or maintainin*05/25/2008 01/05/2022 Migraine with aura [G43.109] PANIC DISORDER WITHOUT AGORAPHOBIA [F41.0] Fibromyalgia [M79.7] History of recurrent UTIs [Z87.440] 11/30/2015 Uncontrolled type 2 diabetes mellitus with hype* Secondary polycythemia [D75.1] 09/10/2017 Depression, major, recurrent, in complete remis*07/23/2018 Hyperlipidemia, mixed [E78.2] 02/01/2019 Chronic cough [R05.3] 01/04/2020 01/05/2022 Obesity, Class II, BMI 35-39.9 [E66.812] 02/29/2020 SOB (shortness of breath) [R06.02] 08/23/2020 01/05/2022 Acute bronchitis with chronic obstructive pulmo*10/02/2020 01/05/2022 Chest pressure [R07.89] 12/11/2020 01/05/2022 Rash [R21] 01/01/2021 01/05/2022 Primary hypertension [I10] 01/08/2021 Chronic gastritis without bleeding [K29.50] 09/07/2021 Leukocytosis [D72.829] 01/05/2022 Mixed stress and urge urinary incontinence [N39*04/16/2023 Esophageal varices without bleeding (HCC) [I85.*07/22/2022 Diagnosed: 08/15/2023 DENNY (nonalcoholic steatohepatitis) [K75.81] 06/14/2022 Diagnosed: 08/15/2023 Prescriptions ordered this encounter Disp Refills Start End PROMETHAZINE 25 MG TABLET 20 t* 2 01/25/2025 04/25/2025 Route: PO Sig: Take 1 tablet by mouth every 6 hours as needed for nausea (more content not included)... Normal [facility] ANJUMKEYANNAH Joe ([id number]) 1955 F Date Time Provider Department 12/23/24 RICCI COLE During your visit today, we recorded the following information about you: Joycelyn Esparza 12/23/2024 9:14 AM Signed Ivet is a patient of Ricci Cole MD today Mary from [employer] called and stated she will be faxing the order form for incontinent supplies to [phone]. Please call with any questions. Patient has been identified by name and birthdate. Was an appointment scheduled: No Closing statement: Results or non-symptom based questions: Thank you for calling [facility], your call will be returned within the next business day. Marylu Mariscal MA 12/27/2024 10:41 AM Addendum Fax received. Type of form: Certificate of Medical Necessity Form received via fax When form is completed, Fax form to [facility] at [phone] Form has been forwarded to Physician: ROSS Robles Lisa, MA 12/28/2024 11:42 AM Signed Completed form faxed Allergies As of Date: 12/23/2024 Noted Allergy Reaction CHANTIX (VARENICLINE) 01/22/2019 1 - Mental Status Change PENICILLINS 05/25/2008 4 - Hives SULFA (SULFONAMIDE ANTIBIOTICS) 09/19/2016 2 - Rash 14 - Other: See Comments Comments: Blisters and sore in throat Date Reviewed: 07/26/2024 Reviewed by: Smiley Melo APRN.LINE THERAPIST - Fully Assessed Reason for Visit: Orders [681] Cmt: Incontinence supplies Prescriptions as of 12/28/2024 - insulin glargine U-300 conc (TOUJEO) 300 unit/mL (1.5 mL) Inject 80 Units subcutaneously every morning. E11.9 Dispense 2 boxes of 3 pens. - promethazine (PHENERGAN) 25 mg tablet Take 1 tablet by mouth every 6 hours as needed for nausea/vomiting. - insulin lispro (HUMALOG KWIKPEN INSULIN) 100 unit/mL Inject 12 Units subcutaneously three times a day before meals. And sliding scale up to 38 units tid. - gabapentin (NEURONTIN) 400 mg capsule Take 1 capsule by mouth three times a day for 90 days. - topiramate (TOPAMAX) 50 mg tablet Take 1 tablet by mouth two times a day. - blood sugar diagnostic (BLOOD GLUCOSE TEST) test strip Test blood sugar(s) 3-4 times daily. Dx: Type 2 DM - Controlled E11.9 Insulin: Yes - Lancets Test blood sugar(s) 3-4 times daily. Dx: Type 2 DM-Controlled Insulin: Yes - carvedilol (COREG) 12.5 mg tablet Take 1 tablet by mouth two times a day. - Insulin [place], Disposable, (BD ULTRA-FINE MINDY PEN NEEDLE) 32 gauge x 5/32 Use one needle for each dose, 4 times daily. (4mm) - albuterol HFA (VENTOLIN HFA) 90 mcg/actuation inhaler Inhale 2 Puffs as instructed every 4 hours as needed. - fluticasone-vilanterol (BREO ELLIPTA) 100-25 mcg/dose inhaler Inhale 1 Inhalation as instructed once daily. - nystatin (MYCOSTATIN) powder Apply 1 application to affected area four times daily. - ergocalciferol 50,000 unit capsule (VITAMIN D2, DRISDOL) Take 1 capsule by mouth one time a week. - albuterol (PROVENTIL) 2.5 mg /3 mL (0.083 %) nebulizer solution Use 3 mL via nebulizer every 4 hours as needed for wheezing/shortness of breath. Use over 5-15minutes. - atorvastatin (LIPITOR) 20 mg tablet Take 1 tablet by mouth daily at bedtime. For cholesterol. - busPIRone (BUSPAR) 10 mg tablet Take 1 tablet by mouth three times daily. - omeprazole (PRILOSEC) 40 mg capsule Take 1 capsule by mouth once daily. - escitalopram oxalate (LEXAPRO) 20 mg tablet Take 20 mg by mouth once daily. - buPROPion XL (WELLBUTRIN XL) 150 mg 24 hr tablet Take 1 tablet by mouth once daily. - Insulin [place], Disposable, 32 gauge x 5/16 ndle Use four times daily with insulin - QUEtiapine XR (SEROQUEL XR) 300 mg 24 hr tablet Take 300 mg by mouth daily at bedtime. - Blood Pressure Monitor EXLARGE BLOOD PRESSURE CUFF MONITOR KIT checking bp 4 times daily Problem List As Of Date 12/23/2024 Noted Resolved TOBACCO USE DISORDER [F17.200] CERVICAL DISC DEGEN [M50.30] Chronic bronchitis (HCC) [J42] Depressive disorder, not elsewhere classified [* 01/05/2022 Persistent disorder of initiating or maintainin*05/25/2008 01/05/2022 Migraine with aura [G43.109] PANIC DISORDER WITHOUT AGORAPHOBIA [F41.0] Fibromyalgia [M79.7] History of recurrent UTIs [Z87.440] 11/30/2015 Uncontrolled type 2 diabetes mellitus with hype* Secondary polycythemia [D75.1] 09/10/2017 Depression, major, recurrent, in complete remis*07/23/2018 Hyperlipidemia, mixed [E78.2] 02/01/2019 Chronic cough [R05.3] 01/04/2020 01/05/2022 Obesity, Class II, BMI 35-39.9 [E66.812] 02/29/2020 SOB (shortness of breath) [R06.02] 08/23/2020 01/05/2022 Acute bronchitis with chronic obstructive pulmo*10/02/2020 01/05/2022 Chest pressure [R07.89] 12/11/2020 01/05/2022 Rash [R21] 01/01/2021 01/05/2022 Primary hypertension [I10] 01/08/2021 Chronic gastritis without bleeding [K29.50] 09/07/2021 L (more content not included)... Normal [facility] CNCOon 10-19-2024 CNCO Letter Text Normal [facility] CNPNon 07-29-2024 [facility] IVET VALERO ([id number]) 1955 F Date Time Provider Department 07/29/24 [facility] During your visit today, we recorded the following information about you: Karon Garcia, RN 07/29/2024 8:34 AM Signed [place] pharmacist from [facility] calling in this morning to say that the prescription for this pt sent to them on 07/26 has gotten lost in the delivery process. So patient has not received her antibiotic Nitrofurantoin (Macrobid). [facility] is concerned that pt needs the antibiotic and she is unsure when or if the RX will be found. [facility] asking if she can have an order to dispense the antibiotic again and then they are going to Fed Ex it to pt today. Prescription order given again to [facility] since previous prescription got lost. Smiley Melo APRN.CNP 07/29/2024 9:53 AM Signed Order resent Smiley Melo APRN.CNP 07/29/2024 9:53 AM Signed Addended by: SMILEY MELO on: 07/29/2024 09:53 AM Modules accepted: Orders Allergies As of Date: 07/29/2024 Noted Allergy Reaction CHANTIX (VARENICLINE) 01/22/2019 1 - Mental Status Change PENICILLINS 05/25/2008 4 - Hives SULFA (SULFONAMIDE ANTIBIOTICS) 09/19/2016 2 - Rash 14 - Other: See Comments Comments: Blisters and sore in throat Date Reviewed: 07/26/2024 Reviewed by: Smiley Melo APRN.LINE THERAPIST - Fully Assessed Reason for Visit: Medication Problem [65] Cmt: lost RX Visit Diagnosis:Recurrent UTI (urinary tract infection) [N39.0] Order(s):nitrofurantoi n monohydrate and macrocrystal (MACROBID) 100 mg capsuleTake 1 capsule by mouth two times a day with meals for 5 days.Disp: 10 capsuleRfl: 0 Prescriptions as of 07/29/2024 - nitrofurantoin monohydrate and macrocrystal (MACROBID) 100 mg capsule Take 1 capsule by mouth two times a day with meals for 5 days. - gabapentin (NEURONTIN) 400 mg capsule Take 1 capsule by mouth three times a day for 90 days. - promethazine (PHENERGAN) 25 mg tablet Take 1 tablet by mouth every 6 hours as needed for nausea/vomiting. - insulin glargine U-300 conc (TOUJEO) 300 unit/mL (1.5 mL) Inject 80 Units subcutaneously every morning. E11.9 Dispense 2 boxes of 3 pens. - insulin lispro (HUMALOG KWIKPEN INSULIN) 100 unit/mL Inject 12 Units subcutaneously three times a day before meals. And sliding scale up to 38 units tid. - topiramate (TOPAMAX) 50 mg tablet Take 1 tablet by mouth two times a day. - blood sugar diagnostic (BLOOD GLUCOSE TEST) test strip Test blood sugar(s) 3-4 times daily. Dx: Type 2 DM - Controlled E11.9 Insulin: Yes - Lancets Test blood sugar(s) 3-4 times daily. Dx: Type 2 DM-Controlled Insulin: Yes - carvedilol (COREG) 12.5 mg tablet Take 1 tablet by mouth two times a day. - Insulin [place], Disposable, (BD ULTRA-FINE MINDY PEN NEEDLE) 32 gauge x Use one needle for each dose, 4 times daily. (4mm) - albuterol HFA (VENTOLIN HFA) 90 mcg/actuation inhaler Inhale 2 Puffs as instructed every 4 hours as needed. - fluticasone-vilanterol (BREO ELLIPTA) 100-25 mcg/dose inhaler Inhale 1 Inhalation as instructed once daily. - nystatin (MYCOSTATIN) powder Apply 1 application to affected area four times daily. - ergocalciferol 50,000 unit capsule (VITAMIN D2, DRISDOL) Take 1 capsule by mouth one time a week. - albuterol (PROVENTIL) 2.5 mg /3 mL (0.083 %) nebulizer solution Use 3 mL via nebulizer every 4 hours as needed for wheezing/shortness of breath. Use over 5-15minutes. - atorvastatin (LIPITOR) 20 mg tablet Take 1 tablet by mouth daily at bedtime. For cholesterol. - busPIRone (BUSPAR) 10 mg tablet Take 1 tablet by mouth three times daily. - omeprazole (PRILOSEC) 40 mg capsule Take 1 capsule by mouth once daily. - escitalopram oxalate (LEXAPRO) 20 mg tablet Take 20 mg by mouth once daily. - buPROPion XL (WELLBUTRIN XL) 150 mg 24 hr tablet Take 1 tablet by mouth once daily. - Insulin [place], Disposable, 32 gauge x 516 ndle Use four times daily with insulin - QUEtiapine XR (SEROQUEL XR) 300 mg 24 hr tablet Take 300 mg by mouth daily at bedtime. - Blood Pressure Monitor EXLARGE BLOOD PRESSURE CUFF MONITOR KIT checking bp 4 times daily Problem List As Of Date 07/29/2024 Noted Resolved TOBACCO USE DISORDER [F17.200] CERVICAL DISC DEGEN [M50.30] Chronic bronchitis (HCC) [J42] Depressive disorder, not elsewhere classified [* 01/05/2022 Persistent disorder of initiating or maintainin*05/25/2008 01/05/2022 Migraine with aura [G43.109] PANIC DISORDER WITHOUT AGORAPHOBIA [F41.0] Fibromyalgia [M79.7] History of recurrent UTIs [Z87.440] 11/30/2015 Uncontrolled type 2 diabetes mellitus with hype* Secondary polycythemia [D75.1] 09/10/2017 Depression, major, recurrent, in complete remis*07/23/2018 Hyperlipidemia, mixed [E78.2] 02/01/2019 Chronic cough [R05.3] 01/04/2020 01/05/2022 Obesity, Class II, BMI 35-39.9 [E66.8 (more content not included)... Normal [facility] CNOVon 07-26-2024 CNOV Office Visit (FAMPWS ) IVET VALERO ([id number]) 1955 F Date Time Provider Department 07/26/24 10:00 AM [facility] your visit today, we recorded the following information about you: Temperature Pulse Respiration Blood pressure 98.8 degrees 102/minute 20/minute 128/60 Weight 103 kg Smiley Melo APRN.[facility] 07/26/2024 10:47 AM Signed This is a 69 year old female who presents today with: Patient presents with: UTI: Dysuria, urinary frequency, lower abdominal pain for the last 3 weeks Migraine Fibromyalgia HISTORY OF PRESENT ILLNESS: Ivet Joe Anjum is a 69 year old female. Patient presents with: UTI: Dysuria, urinary frequency, lower abdominal pain for the last 3 weeks Migraine Fibromyalgia Pt. Has Hx of UTI frequently Migraine [id number]-viq frontal and occipital. Has a workers comp claim on neck and shoulders-thinks related to that. Medication is not helping. Does not think she snores. Wakes up through the night. Fibromyalgia this year it is worse. Legs, elbows, knees, everywhere. Doesn't sleep 7 hours a night. No exercise. Stress levels are high. Ran out of gabapentin. Has not smoked for a week. Smokes 3/4- 1 ppd for 47 years. DM: Reports overall feeling well. Medication side effects: No. Home sugar checks: Meter broke Hypoglycemic spells: Seldom. Watching diet: No. Unexpected weight loss: No. Polyuria, polydipsia: Yes. Vision Changes: Yes. Due for eye doctor Foot lesions or numbness or pain: No. 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 Depressive disorder, not elsewhere classified DM (diabetes mellitus) (HCC) Fibromyalgia Migraine with aura, without mention of intractable migraine without mention of status migrainosus Panic disorder without agoraphobia had hx of failed urine screen Recurrent UTI Tobacco use disorder PAST SURGICAL HISTORY Procedure Laterality Date CHOLECYSTECTOMY ESOPHAGOGASTRODUODENOS COPY TRANSORAL DIAGNOSTIC 12/06/2015 EGD LIG/TRNSXJ FLP TUBE ABDL/VAG APPR UNI/BI Tubal ligation PAST SURGICAL HISTORY OF Left 03/2014 ANKLE FRACTURE REPAIR S SLING BLADDER 2012 AND TOTAL ABDOMINAL HYSTERECT W/WO RMVL TUBE OVARY Hysterectomy, REJI ALLERGIES Chantix [Varenicline], Penicillins, and Sulfa (Sulfonamide Antibiotics) MEDICATIONS Current Outpatient Medications Medication Sig topiramate (TOPAMAX) 25 mg tablet Take 1 tablet by mouth two times a day. carvedilol (COREG) 12.5 mg tablet Take 1 tablet by mouth two times a day. albuterol HFA (VENTOLIN HFA) 90 mcg/actuation inhaler Inhale 2 Puffs as instructed every 4 hours as needed. fluticasone-vilanterol (BREO ELLIPTA) 100-25 mcg/dose inhaler Inhale 1 Inhalation as instructed once daily. nystatin (MYCOSTATIN) powder Apply 1 application to affected area four times daily. ergocalciferol 50,000 unit capsule (VITAMIN D2, DRISDOL) Take 1 capsule by mouth one time a week. albuterol (PROVENTIL) 2.5 mg /3 mL (0.083 %) nebulizer solution Use 3 mL via nebulizer every 4 hours as needed for wheezing/shortness of breath. Use over 5-15minutes. atorvastatin (LIPITOR) 20 mg tablet Take 1 tablet by mouth daily at bedtime. For cholesterol. busPIRone (BUSPAR) 10 mg tablet Take 1 tablet by mouth three times daily. omeprazole (PRILOSEC) 40 mg capsule Take 1 capsule by mouth once daily. escitalopram oxalate (LEXAPRO) 20 mg tablet Take 20 mg by mouth once daily. buPROPion XL (WELLBUTRIN XL) 150 mg 24 hr tablet Take 1 tablet by mouth once daily. QUEtiapine XR (SEROQUEL XR) 300 mg 24 hr tablet Take 300 mg by mouth daily at bedtime. gabapentin (NEURONTIN) 400 mg capsule Take 1 capsule by mouth three times a day for 90 days. insulin glargine U-300 conc (TOUJEO) 300 unit/mL (1.5 mL) Inject 80 Units subcutaneously every morning. E11.9 Dispense 2 boxes of 3 pens. insulin lispro (HUMALOG KWIKPEN INSULIN) 100 unit/mL Inject 12 Units subcutaneously three times a day before meals. And sliding scale up to 38 units tid. promethazine (PHENERGAN) 25 mg tablet Take 1 tablet by mouth every 6 hours as needed for nausea/vomiting. Insulin [place], Disposable, (BD ULTRA-FINE MINDY PEN NEEDLE) 32 gauge x 5/32 Use one needle for each dose, 4 times daily. (4mm) Lancets lancets Test blood sugar(s) 3-4 times daily. Dx: Type 2 DM-Controlled Insulin: Yes blood sugar diagnostic (BLOOD GLUCOSE TEST) test strip Test blood sugar(s) 3-4 times daily. Dx: Type 2 DM - Controlled E11.9 Insulin: Yes Insulin [place], Disposable, 32 gauge x 5/16 ndle Use four times daily with insulin Blood Pressure Monitor 1 Each once daily. Blood Pressure Monitor EXLARGE BLOOD PRESSURE CUFF MONITOR KIT checking bp 4 times daily No current (more content not included)... Normal [facility] UA DIP, URINE (POC)on 2023 BILIRUBIN UA (POCT) Negative Negative [facility] CLARITY UA (POCT) Clear [facility] COLOR UA (POCT) Yellow [facility] GLUCOSE UA (POCT) 250 mg/dL Abnormal Negative [facility] Hemoglobin Ql (U) Moderate Abnormal Negative [facility] Interpretation and review of laboratory results Abnormal [facility] KETONE UA (POCT) Trace Negative mg/dL [facility] LEUKOCYTES UA (POCT) Trace Abnormal Negative [facility] [facility] NITRITE UA (POCT) Positive Abnormal Negative [facility] PH UA (POCT) 5.5 4.5 - 8.0 [facility] Protein Ql (U) >=300 Abnormal Negative mg/dL [facility] SPECIFIC GRAVITY UA (POCT) >=1.030 1.005 - 1.030 [facility] UROBILINOGEN UA (POCT) 0.2 Christine l E.U./dL [facility] Location:[address], [address] [place] [address] POINT OF CARE [facility] UA DIP, URINE (POC)on 2023 BILIRUBIN UA (POCT) Negative Negative [facility] CLARITY UA (POCT) Cloudy [facility] COLOR UA (POCT) Мраия [facility] GLUCOSE UA (POCT) 250 mg/dL Abnormal Negative [facility] Hemoglobin Ql (U) Negative Negative [facility] Interpretation and review of laboratory results Abnormal [facility] KETONE UA (POCT) 15 mg/dL Abnormal Negative [facility] LEUKOCYTES UA (POCT) Small Abnormal Negative [facility] NITRITE UA (POCT) Positive Abnormal Negative [facility] PH UA (POCT) 6.0 4.5 - 8.0 [facility] Protein Ql (U) Trace Abnormal Negative mg/dL [facility] SPECIFIC GRAVITY UA (POCT) 1.025 1.005 - 1.030 [facility] UROBILINOGEN UA (POCT) 0.2 Christine l E.U./dL [facility] Location:[address], [place], [place], [address] [place] [address] POINT OF CARE [facility] UA DIP, URINE (POC)on 2023 BILIRUBIN UA (POCT) Negative Negative [facility] CLARITY UA (POCT) Cloudy [facility] COLOR UA (POCT) Yellow [facility] GLUCOSE UA (POCT) >=1000 Abnormal Negative mg/dL [facility] Hemoglobin Ql (U) Trace-intact Abnormal Negative [facility] Interpretation and review of laboratory results Abnormal [facility] KETONE UA (POCT) Negative Negative mg/dL [facility] LEUKOCYTES UA (POCT) Trace Abnormal Negative [facility] NITRITE UA (POCT) Positive Abnormal Negative [facility] PH UA (POCT) 5.5 4.5 - 8.0 [facility] Protein Ql (U) Trace Abnormal Negative mg/dL [facility] SPECIFIC GRAVITY UA (POCT) 1.020 1.005 - 1.030 [facility] UROBILINOGEN UA (POCT) 0.2 Christine l E.U./dL [facility] Location:[address], [place], [place], [address] [place] [address] POINT OF CARE [facility] XR Chest PA and Lateralon IMPRESSION: No acute radiographic abnormality. [employer]: PSCB Transcribe Date/Time: Sep 04 2023 3:33P Dictated by : MCKENZIE CURTIS MD This examination was interpreted and the report reviewed and electronically signed by: MCKENZIE CURTIS MD on Sep 04 2023 3:33PM [facility] DIVISION OF RADIOLOGY * * *Final Report* * * DATE OF EXAM: Sep 04 2023 1:15PM WOX [id number] - XR CHEST 2V FRONTAL/LAT / PROCEDURE REASON: Subacute cough * * * * Physician Interpretation * * * * EXAMINATION: CHEST RADIOGRAPH (2 VIEW FRONTAL & LATERAL) CLINICAL HISTORY: Subacute cough MQ: XC2_6 EXAM DATE/TIME: 09/04/2023 1:15 PM COMPARISON: Chest x-ray on 04/11/2021 RESULT: Lines, tubes, and devices: None. Lungs and pleura: No consolidation. No lung mass. No pleural effusion. No pneumothorax. Large pericardial fat pads are visualized. Cardiomediastinal silhouette: Stable cardiac silhouette and mediastinal contour. Bones and soft tissues: There are degenerative changes in the spine. DIVISION OF RADIOLOGY Provider, [facility] - 09/04/2023 * * *Final Report* * * DATE OF EXAM: Sep 04 2023 1:15PM WOX [id number] - XR CHEST 2V FRONTAL/LAT / PROCEDURE REASON: Subacute cough * * * * Physician Interpretation * * * * EXAMINATION: CHEST RADIOGRAPH (2 VIEW FRONTAL & LATERAL) CLINICAL HISTORY: Subacute cough MQ: XC2_6 EXAM DATE/TIME: 09/04/2023 1:15 PM COMPARISON: Chest x-ray on 04/11/2021 RESULT: Lines, tubes, and devices: None. Lungs and pleura: No consolidation. No lung mass. No pleural effusion. No pneumothorax. Large pericardial fat pads are visualized. Cardiomediastinal silhouette: Stable cardiac silhouette and mediastinal contour. Bones and soft tissues: There are degenerative changes in the spine. IMPRESSION IMPRESSION: No acute radiographic abnormality. [employer]: JOHNIE Transcribe Date/Time: Sep 04 2023 3:33P Dictated by : MCKENZIE CURTIS MD This examination was interpreted and the report reviewed and electronically signed by: MCKENZIE CURTIS MD on Sep 04 2023 3:33PM EST [facility] Radiology Study observation (narrative) [facility] XR Chest PA and LateralOrder ed By: [facility] Provider on 09-04-2023 [facility] Glucose Glucometer (BldC) [M ass/Vol]Ordered By: Sho Yi on 08-06-2023 Glucose [Mass/Vol] 147 mg/dL 74-106 [facility] Comment on above: MANAGEMENT OF PATIEN T CARE PER NURSING PROTOCOL Absolute lymphocyte countOrd ered By: Leeanne Barron on 08-05-2023 Lymphocytes Auto (Unsp spec) [#/Vol] 4.42 10*3/uL 0.83-4.51 [facility] Basophil percentageOrdered B y: Leeanne Barron on 08-05-2023 Basophils/100 WBC (Bld) 0.4 % 0-1 [facility] Chloride [Moles/Vol] 110 mmol/L 98-107 [facility] Eosinophils/100 WBC (Bld) 1.2 % 0-5 [facility] Glucose [Mass/Vol] 130 mg/dL 74-106 [facility] Comment on above: Fasting Glucose resu lt greater than or equal to 126 mg/dL suggests DIABETES MELLITUS per A.D.A. criteria. Neutrophils (Bld) [#/Vol] 5.8 10*3/uL 2.0-7.7 [facility] Neutrophils/100 WBC (Bld) 51.7 % 47-70 [facility] Potassium [Moles/Vol] 3.7 mmol/L 3.5-5.1 [facility] Sodium [Moles/Vol] 142 mmol/L 136-145 [facility] WBC (Bld) [#/Vol] 11.3 10*3/uL 4.4-11.0 [facility] Blood erythrocytes count (nu mber/volume)Ordered By: Leeanne Barron on 08-05-2023 RBC (Bld) [#/Vol] 4.42 10*6/uL 4.2-5.4 [facility] Blood hemoglobin measurement (mass/volume)Ordered By: Leeanne Barron on 08-05-2023 Hemoglobin (Bld) [Mass/Vol] 13.5 g/dL 12.0-15.0 [facility] Blood lymphocytes/100 leukoc ytesOrdered By: Leeanne Barron on 08-05-2023 Lymphocytes/100 WBC (Bld) 39.3 % 19-41 [facility] Blood monocytes/100 leukocyt esOrdered By: Leeanne Barron on 08-05-2023 Monocytes/100 WBC (Bld) 7.0 % 0-10 [facility] Blood platelet mean volumeOr dered By: Leeanne Barron on 08-05-2023 Platelet mean volume (Bld) [Entitic vol] 8.8 fL 6.2-12.0 [facility] Determination of erythrocyte mean corpuscular volume (MCV)Ordered By: Leeanne Barron on 08-05-2023 MCV (RBC) [Entitic vol] 93.4 fL 81-99 [facility] Hematocrit Auto (Bld) [Volum e fraction]Ordered By: Leeanne Barron on 08-05-2023 Hematocrit (Bld) [Volume fraction] 41.3 % 37-47 [facility] Laboratory - Chemistry and C hemistry - challengeOrdered By: Leeanne Barron on 08-05-2023 CO2 [Moles/Vol] 27.0 mmol/L 21.0-32.0 [facility] Urea nitrogen/Creatinine [Mass ratio] 18.8 mg/mg 10-20 [facility] Laboratory - Hematology and Cell countsOrdered By: Leeanne Barron on 08-05-2023 Erythrocyte distribution width (RBC) [Entitic vol] 46.9 fL 35.1-43.9 [facility] Erythrocyte distribution width (RBC) [Ratio] 13.7 % 11.6-14.6 [facility] Immature granulocytes/100 WBC (Bld) 0.400 % 0.0-0.9 [facility] Comment on above: IG% - Immature Granu locytes (promyelocytes, myelocytes and metamyelocytes) > 1% indicates that a LEFT SHIFT is Present. MCH (RBC) [Entitic mass] 30.5 pg 27.0-32.0 [facility] Nucleated RBC/100 WBC (Bld) [Ratio] 0 % 0-5 [facility] MCHC Auto (RBC) [Mass/Vol]Or dered By: Leeanne Barron on 08-05-2023 MCHC (RBC) [Mass/Vol] 32.7 g/dL 32-36 [facility] No Panel InformationOrdered By: Leeanne Barron on 08-05-2023 Estimated Creatinine Clearance Calc 53.81 ml/min [facility] Estimated GFR (MDRD) Amer 120 mL/min >60 [facility] Comment on above: GFR Calc Estimated GFR (MDRD) Non-Af Amer 99 mL/min >60 [facility] Comment on above: Non- GFR Calc Platelets bldOrdered By: Octaviano Barron on 08-05-2023 Platelets (Bld) [#/Vol] 273 10*3/uL 150-450 [facility] Serum or plasma calcium maria elena urement (mass/volume)Ordered By: Leeanne Barron on 08-05-2023 Calcium [Mass/Vol] 8.4 mg/dL 8.5-10.1 [facility] Serum or plasma creatinine m easurement (mass/volume)Ordered By: Leeanne Barron on 08-05-2023 Creatinine [Mass/Vol] 0.64 mg/dL 0.55-1.02 [facility] Comment on above: The validity of the calculated GFR & GFRAA in patients over 70 years has not been determined. Clinical correlation is essential. Serum or plasma urea nitroge n measurement (mass/volume)Ordered By: Leeanne Barron on 08-05-2023 Urea nitrogen [Mass/Vol] 12 mg/dL 7-18 [facility] Thin prep Papanicolaou smear with manual screeningOrdered By: Leeanne Barron on 08-05-2023 Thin prep Papanicolaou smear with manual screening 5 5-15 [facility] Absolute lymphocyte countOrd ered By: Marylu Gillespie on 12-11-2023 Lymphocytes Auto (Unsp spec) [#/Vol] 3.10 10*3/uL 0.83-4.51 [facility] Basophil percentageOrdered B y: Marylu Gillespie on 08-04-2023 Basophils/100 WBC (Bld) 0.6 % 0-1 [facility] Chloride [Moles/Vol] 106 mmol/L 98-107 [facility] Eosinophils/100 WBC (Bld) 0.6 % 0-5 [facility] Glucose [Mass/Vol] 241 mg/dL 74-106 [facility] Comment on above: Glucose result great er than or equal to 200 mg/dLsuggests DIABETES MELLITUS per A.D.A. criteria. Neutrophils (Bld) [#/Vol] 9.9 10*3/uL 2.0-7.7 [facility] Neutrophils/100 WBC (Bld) 70.3 % 47-70 [facility] Potassium [Moles/Vol] 3.8 mmol/L 3.5-5.1 [facility] Sodium [Moles/Vol] 139 mmol/L 136-145 [facility] WBC (Bld) [#/Vol] 14.0 10*3/uL 4.4-11.0 [facility] Basophil percentage 10-25 SEEN /hpf 0-5 [facility] Bilirubin Test strip Ql (U)O rdered By: Marylu Gillespie on 08-04-2023 Bilirubin Ql (U) Negative Negative [facility] Blood erythrocytes count (nu mber/volume)Ordered By: Marylu Gillespie on 08-04-2023 RBC (Bld) [#/Vol] 5.08 10*6/uL 4.2-5.4 [facility] Blood hemoglobin measurement (mass/volume)Ordered By: Marylu Gillespie on 08-04-2023 Hemoglobin (Bld) [Mass/Vol] 14.9 g/dL 12.0-15.0 [facility] Blood lymphocytes/100 leukoc ytesOrdered By: Marylu Gillespie on 08-04-2023 Lymphocytes/100 WBC (Bld) 22.1 % 19-41 [facility] Blood monocytes/100 leukocyt esOrdered By: Marylu Gillespie on 08-04-2023 Monocytes/100 WBC (Bld) 5.9 % 0-10 [facility] Blood platelet mean volumeOr dered By: Marylu Gillespie on 08-04-2023 Platelet mean volume (Bld) [Entitic vol] 8.8 fL 6.2-12.0 [facility] Determination of erythrocyte mean corpuscular volume (MCV)Ordered By: Marylu Gillespie on 08-04-2023 MCV (RBC) [Entitic vol] 92.1 fL 81-99 [facility] Glucose Glucometer (BldC) [M ass/Vol]Ordered By: Leenane Barron on 08-04-2023 Glucose [Mass/Vol] 121 mg/dL 74-106 [facility] Comment on above: MANAGEMENT OF PATIEN T CARE PER NURSING PROTOCOL Hematocrit Auto (Bld) [Volum e fraction]Ordered By: Marylu Gillespie on 08-04-2023 Hematocrit (Bld) [Volume fraction] 46.8 % 37-47 [facility] Ketones Test strip Ql (U)Ord ered By: Marylu Gillespie on 08-04-2023 Ketones Ql (U) 5 mg/dl Negative [facility] Laboratory - Chemistry and C hemistry - challengeOrdered By: Marylu Gillespie on 08-04-2023 CO2 [Moles/Vol] 24.0 mmol/L 21.0-32.0 [facility] Urea nitrogen/Creatinine [Mass ratio] 12.8 mg/mg 10-20 [facility] Laboratory - Hematology and Cell countsOrdered By: Marylu Gillespie on 08-04-2023 Erythrocyte distribution width (RBC) [Entitic vol] 45.5 fL 35.1-43.9 [facility] Erythrocyte distribution width (RBC) [Ratio] 13.4 % 11.6-14.6 [facility] Immature granulocytes/100 WBC (Bld) 0.500 % 0.0-0.9 [facility] Comment on above: IG% - Immature Granu locytes (promyelocytes, myelocytes and metamyelocytes) > 1% indicates that a LEFT SHIFT is Present. MCH (RBC) [Entitic mass] 29.3 pg 27.0-32.0 [facility] Nucleated RBC/100 WBC (Bld) [Ratio] 0 % 0-5 [facility] MCHC Auto (RBC) [Mass/Vol]Or dered By: Marylu Gillespie on 08-04-2023 MCHC (RBC) [Mass/Vol] 31.8 g/dL 32-36 [facility] Mucus LM Ql (Urine sed)Order ed By: Marylu Gillespie on 08-04-2023 Mucus Ql (Urine sed) 0 SEEN /hpf [facility] Nitrite Test strip Ql (U)Ord ered By: Marylu Gillespie on 08-04-2023 Nitrite Ql (U) Positive Negative [facility] No Panel InformationOrdered By: Marylu Gillespie on 08-04-2023 Estimated Creatinine Clearance Calc 53.81 ml/min [facility] Estimated GFR (MDRD) Amer 95 mL/min >60 [facility] Comment on above: GFR Calc Estimated GFR (MDRD) Non-Af Amer 78 mL/min >60 [facility] Comment on above: Non- GFR Calc Platelets bldOrdered By: Lorrie Gillespie on 08-04-2023 Platelets (Bld) [#/Vol] 327 10*3/uL 150-450 [facility] Protein Test strip Ql (U)Ord ered By: Marylu Gillespie on 08-04-2023 Protein Ql (U) 30 mg/dl Negative [facility] Serum or plasma calcium maria elena urement (mass/volume)Ordered By: Marylu Gillespie on 08-04-2023 Calcium [Mass/Vol] 9.2 mg/dL 8.5-10.1 [facility] Serum or plasma creatinine m easurement (mass/volume)Ordered By: Marylu Gillespie on 08-04-2023 Creatinine [Mass/Vol] 0.78 mg/dL 0.55-1.02 [facility] Comment on above: The validity of the calculated GFR & GFRAA in patients over 70 years has not been determined. Clinical correlation is essential. Serum or plasma urea nitroge n measurement (mass/volume)Ordered By: Marylu Gillespie on 08-04-2023 Urea nitrogen [Mass/Vol] 10 mg/dL 7-18 [facility] Squamous epithelial cells de tection in urine sediment by light microscopyOrdered By: Marylu Gilelspie on 08-04-2023 Epithelial cells.squamous LM Ql (Urine sed) 0-5 SEEN /hpf 5-10 [facility] Thin prep Papanicolaou smear with manual screeningOrdered By: Marylu Gillespie on 08-04-2023 Thin prep Papanicolaou smear with manual screening 9 -15 [facility] Urine blood detectionOrdered By: Marylu Gillespie on 08-04-2023 RBC Ql (U) 25 /ul Negative [facility] RBC Ql (U) 0 SEEN /hpf 0-5 [facility] Urine clarityOrdered By: Lorrie Gillespie on 08-04-2023 Clarity (U) Clear Clear [facility] Urine color determinationOrd ered By: Marylu Gillespie on 08-04-2023 Color (U) Yellow Yellow [facility] Urine glucose detectionOrder ed By: Marylu Gillespie on 08-04-2023 Glucose Ql (U) Normal mg/dl Normal [facility] Urine leukocyte esterase det ection by dipstickOrdered By: Marylu Gillespie on 08-04-2023 Leukocyte esterase Test strip Ql (U) 500 /ul Negative [facility] Urine pHOrdered By: Marylu ontiveros on 08-04-2023 pH (U) 5.0 [pH] 5.0 - 8.0 [facility] Urine sediment bacteria coun t by microscopy (number/high power field)Ordered By: Marylu Gillespie on 08-04-2023 Bacteria LM.HPF (Urine sed) [#/Area] RARE /hpf None Seen [facility] Urine specific gravity measu rementOrdered By: Marylu Gillespie on 08-04-2023 Specific gravity (U) [Rel density] 1.020 1.002-1.030 [facility] Urobilinogen Auto test strip Ql (U)Ordered By: Marylu Gillespie on 08-04-2023 Urobilinogen Ql (U) Normal mg/dl Normal [facility] GLUCOSE, BLOOD (POC)on 07-09 Glucose [Mass/Vol] 302 mg/dL Abnormal 74 - 99 mg/dL [facility] UA DIP, URINE (POC)on 2022 BILIRUBIN UA (POCT) Negative Negative [facility] CLARITY UA (POCT) Clear [facility] COLOR UA (POCT) Yellow [facility] GLUCOSE UA (POCT) >=1000 Abnormal Negative mg/dL [facility] Hemoglobin Ql (U) Trace-intact Abnormal Negative Victoriano [facility] KETONE UA (POCT) Negative Negative mg/dL [facility] LEUKOCYTES UA (POCT) Negative Negative [facility] NITRITE UA (POCT) Negative Negative [facility] PH UA (POCT) 5.5 4.5 - 8.0 [facility] Protein Ql (U) Negative Negative mg/dL [facility] SPECIFIC GRAVITY UA (POCT) 1.015 1.005 - 1.030 [facility] UROBILINOGEN UA (POCT) 0.2 E.U./dL Christine l E.U./dL [facility] ALBUMIN/CREAT RATIO RND URon 04-16-2023 Albumin DL <= 20 mg/L (U) [Mass/Vol] 50.8 mg/L [facility] Albumin/Creatinine (U) [Mass ratio] 17 mg/g <30 mg/g [facility] Creatinine (U) [Mass/Vol] 298.5 mg/dL 20.0 - 300.0 mg/dL [facility] PTH INTACT BLDon 04-16-2023 Parathyrin.intact [Mass/Vol] 42 pg/mL 15 - 65 pg/mL [facility] CBC W Auto Differential pane l (Bld)on 04-15-2023 Basophils (Bld) [#/Vol] 0.08 10*3/uL <0.11 k/uL [facility] Basophils/100 WBC (Bld) 0.5 % [facility] Differential cell count method Nom (Bld) Auto [facility] Eosinophils (Bld) [#/Vol] 0.12 10*3/uL <0.46 k/uL [facility] Eosinophils/100 WBC (Bld) 0.7 % [facility] Erythrocyte distribution width (RBC) [Ratio] 13.7 % 11.5 - 15.0 % [facility] Hematocrit (Bld) [Volume fraction] 49.5 % High 36.0 - 46.0 % [facility] Hemoglobin (Bld) [Mass/Vol] 16.4 g/dL High 11.5 - 15.5 g/dL [facility] Immature granulocytes (Bld) [#/Vol] 0.07 10*3/uL <0.10 k/uL [facility] Immature granulocytes/100 WBC (Bld) 0.4 % [facility] Lymphocytes (Bld) [#/Vol] 4.89 10*3/uL High 1.00 - 4.00 k/uL [facility] Lymphocytes/100 WBC (Bld) 30.0 % [facility] MCH (RBC) [Entitic mass] 30.1 pg 26. 0 - 34.0 pg [facility] MCHC (RBC) [Mass/Vol] 33.1 g/dL 30.5 - 36.0 g/dL [facility] MCV (RBC) [Entitic vol] 91.0 fL 80.0 - 100.0 fL [facility] Monocytes (Bld) [#/Vol] 1.02 10*3/uL High <0.87 k/uL [facility] Monocytes/100 WBC (Bld) 6.3 % [facility] Neutrophils (Bld) [#/Vol] 10.10 10*3/uL High 1.45 - 7.50 k/uL [facility] Neutrophils/100 WBC (Bld) 62.1 % [facility] Nucleated RBC (Bld) [#/Vol] <0.01 k/uL [facility] Nucleated RBC/100 WBC (Bld) [Ratio] 0.0 /100 WBC [facility] Platelet mean volume (Bld) [Entitic vol] 9.6 fL 9.0 - 12.7 fL [facility] Platelets (Bld) [#/Vol] 438 10*3/uL High 150 - 400 k/uL [facility] RBC (Bld) [#/Vol] 5.44 10*6/uL High 3.90 - 5.2 0 m/uL [facility] WBC (Bld) [#/Vol] 16.28 10*3/uL High 3.70 - 11 .00 k/uL [facility] HbA1c (Bld)on 04-15-2023 Average glucose Estimated from glycated hemoglobin (Bld) [Mass/Vol] 154 mg/dL [facility] HbA1c (Bld) [Mass fraction] 7.0 % High 4.3 - 5.6 % [facility] Urinalysis complete panel (U )on 04-15-2023 Bacteria LM.HPF (Urine sed) [#/Area] Rare Abnormal None Seen /HPF [facility] Bilirubin Ql (U) Negative Negative [facility] Clarity (Unsp spec) Clear Clear [facility] Color (U) Yellow Yellow [facility] Epithelial cells LM.HPF (Urine sed) [#/Area] Few [facility] Glucose Test strip (U) [Mass/Vol] Trace Trace, Negative [facility] Hemoglobin Ql (U) Negative Negative, Trace [facility] Hyaline casts (Urine sed) [#/Area] /[LPF] Abnormal 0 /LPF [facility] Ketones Ql (U) Negative Trace, Negative [facility] Leukocyte esterase Test strip Ql (U) 75 Meng/uL Abnormal Negative, 25 Meng/uL [facility] Nitrite Ql (U) 2+ Abnormal Negative [facility] pH (U) 5.5 [pH] 5.0 - 8.0 [facility] Protein (U) [Mass/Vol] 1+ Abnormal Trace , Negative [facility] RBC LM.HPF (Urine sed) [#/Area] 0-3 /HPF 0-3 /HPF [facility] Specific gravity (U) [Rel density] 1.027 1.005 - 1.030 [facility] Urobilinogen Ql (U) Negative Negative [facility] WBC LM.HPF (Urine sed) [#/Area] 11-25 /HPF Abnormal 0-5 /HPF [facility] Absolute lymphocyte countOrd ered By: Carter Martinez on 11-14-2022 Lymphocytes Auto (Unsp spec) [#/Vol] 3.89 10*3/uL 0.83-4.51 [facility] Basophil percentageOrdered B y: Carter Martinez on 11-14-2022 Basophil percentage 0-5 SEEN /hpf 0-5 [facility] Basophils/100 WBC (Bld) 0.5 % 0-1 [facility] Chloride [Moles/Vol] 105 mmol/L 98-107 [facility] Eosinophils/100 WBC (Bld) 0.6 % 0-5 [facility] Glucose [Mass/Vol] 188 mg/dL 74-106 [facility] Comment on above: Fasting Glucose resu lt greater than or equal to 126 mg/dL suggests DIABETES MELLITUS per A.D.A. criteria. Neutrophils (Bld) [#/Vol] 10.0 10*3/uL 2.0-7.7 [facility] Neutrophils/100 WBC (Bld) 66.6 % 47-70 [facility] Potassium [Moles/Vol] 3.7 mmol/L 3.5-5.1 [facility] Sodium [Moles/Vol] 141 mmol/L 136-145 [facility] WBC (Bld) [#/Vol] 15.0 10*3/uL 4.4-11.0 [facility] Bilirubin Test strip Ql (U)O rdered By: Carter Martinez on 11-14-2022 Bilirubin Ql (U) Negative Negative [facility] Blood erythrocytes count (nu mber/volume)Ordered By: Carter Martinez on 11-14-2022 RBC (Bld) [#/Vol] 5.11 10*6/uL 4.2-5.4 [facility] Blood hemoglobin measurement (mass/volume)Ordered By: Carter Martinez on 11-14-2022 Hemoglobin (Bld) [Mass/Vol] 15.1 g/dL 12.0-15.0 [facility] Blood lymphocytes/100 leukoc ytesOrdered By: Carter Martinez on 11-14-2022 Lymphocytes/100 WBC (Bld) 25.9 % 19-41 [facility] Blood monocytes/100 leukocyt esOrdered By: Carter Martinez on 11-14-2022 Monocytes/100 WBC (Bld) 5.9 % 0-10 [facility] Blood platelet mean volumeOr dered By: Carter Martinez on 11-14-2022 Platelet mean volume (Bld) [Entitic vol] 8.4 fL 6.2-12.0 [facility] Determination of erythrocyte mean corpuscular volume (MCV)Ordered By: Carter Martinez on 11-14-2022 MCV (RBC) [Entitic vol] 91.8 fL 81-99 [facility] Hematocrit Auto (Bld) [Volum e fraction]Ordered By: Carter Martinez on 11-14-2022 Hematocrit (Bld) [Volume fraction] 46.9 % 37-47 [facility] Influenza virus A and B and SARS-CoV-2 (COVID-19) Ag panel - Upper respiratory specimOrdered By: Carter Martinez on 11-14-2022 SARS-CoV-2 (COVID-19) RNA CONNOR+probe Ql (Resp) [facility] Ketones Test strip Ql (U)Ord ered By: Carter Martinez on 11-14-2022 Ketones Ql (U) 5 mg/dl Negative [facility] Laboratory - Chemistry and C hemistry - challengeOrdered By: Carter Martinez on 11-14-2022 CO2 [Moles/Vol] 26.0 mmol/L 21.0-32.0 [facility] Urea nitrogen/Creatinine [Mass ratio] 7.0 mg/mg 10-20 [facility] Laboratory - Hematology and Cell countsOrdered By: Carter Martinez on 11-14-2022 Erythrocyte distribution width (RBC) [Entitic vol] 45.8 fL 35.1-43.9 [facility] Erythrocyte distribution width (RBC) [Ratio] 13.5 % 11.6-14.6 [facility] [facility] Immature granulocytes/100 WBC (Bld) 0.500 % 0.0-0.9 [facility] Comment on above: IG% - Immature Granu locytes (promyelocytes, myelocytes and metamyelocytes) > 1% indicates that a LEFT SHIFT is Present. MCH (RBC) [Entitic mass] 29.5 pg 27.0-32.0 [facility] Nucleated RBC/100 WBC (Bld) [Ratio] 0 % 0-5 [facility] MCHC Auto (RBC) [Mass/Vol]Or dered By: Carter Martinez on 11-14-2022 MCHC (RBC) [Mass/Vol] 32.2 g/dL 32-36 [facility] Mucus LM Ql (Urine sed)Order ed By: Carter Martinez on 11-14-2022 Mucus Ql (Urine sed) 0 SEEN /hpf [facility] Nitrite Test strip Ql (U)Ord ered By: Carter Martinez on 11-14-2022 Nitrite Ql (U) Negative Negative [facility] No Panel InformationOrdered By: Carter Martinez on 11-14-2022 Estimated Creatinine Clearance Calc 75.75 ml/min [facility] Estimated GFR (MDRD) Amer 105 mL/min >60 [facility] Comment on above: GFR Calc Estimated GFR (MDRD) Non-Af Amer 86 mL/min >60 [facility] Comment on above: Non- GFR Calc Platelets bldOrdered By: Isabella Martinez on 11-14-2022 Platelets (Bld) [#/Vol] 341 10*3/uL 150-450 [facility] Protein Test strip Ql (U)Ord ered By: Carter Martinez on 11-14-2022 Protein Ql (U) Negative Negative [facility] Serum or plasma calcium maria elena urement (mass/volume)Ordered By: Carter Martinez on 11-14-2022 Calcium [Mass/Vol] 9.1 mg/dL 8.5-10.1 [facility] Serum or plasma creatinine m easurement (mass/volume)Ordered By: Carter Martinez on 11-14-2022 Creatinine [Mass/Vol] 0.72 mg/dL 0.55-1.02 [facility] Comment on above: The validity of the calculated GFR & GFRAA in patients over 70 years has not been determined. Clinical correlation is essential. Serum or plasma urea nitroge n measurement (mass/volume)Ordered By: Carter Martinez on 11-14-2022 Urea nitrogen [Mass/Vol] 5 mg/dL 7-18 [facility] Squamous epithelial cells de tection in urine sediment by light microscopyOrdered By: Carter Martinez on 11-14-2022 Epithelial cells.squamous LM Ql (Urine sed) 0 SEEN /hpf 5-10 [facility] Thin prep Papanicolaou smear with manual screeningOrdered By: Carter Martinez on 11-14-2022 Thin prep Papanicolaou smear with manual screening 10 5-15 [facility] Urine blood detectionOrdered By: Carter Martinez on 11-14-2022 RBC Ql (U) Negative Negative [facility] RBC Ql (U) 0 SEEN /hpf 0-5 [facility] Urine clarityOrdered By: Isabella Martinez on 11-14-2022 Clarity (U) Clear Clear [facility] Urine color determinationOrd ered By: Carter Martinez on 11-14-2022 Color (U) Yellow Yellow [facility] Urine glucose detectionOrder ed By: Carter Martinez on 11-14-2022 Glucose Ql (U) Normal mg/dl Normal [facility] Urine leukocyte esterase det ection by dipstickOrdered By: Carter Martinez on 11-14-2022 Leukocyte esterase Test strip Ql (U) Negative Negative [facility] Urine pHOrdered By: Carter valle on 11-14-2022 pH (U) 7.0 [pH] 5.0 - 8.0 [facility] Urine sediment bacteria coun t by microscopy (number/high power field)Ordered By: Carter Martinez on 11-14-2022 Bacteria LM.HPF (Urine sed) [#/Area] 1 /[HPF] None Seen [facility] Urine specific gravity measu rementOrdered By: Carter Martinez on 11-14-2022 Specific gravity (U) [Rel density] 1.010 1.002-1.030 [facility] Urobilinogen Auto test strip Ql (U)Ordered By: Carter Martinez on 11-14-2022 Urobilinogen Ql (U) Normal mg/dl Normal [facility] Glucose Glucometer (BldC) [M ass/Vol]on 06-12-2022 Glucose [Mass/Vol] 291 mg/dL 74-106 [facility] Work Phone: Comment on above: MANAGEMENT OF PATIEN T CARE PER NURSING PROTOCOL Basophil percentageon 2021 Bilirubin [Mass/Vol] 0.50 mg/dL 0.20-1.00 [facility] Work Phone: Comment on above: For patients on eltr ombopag therapy, use of Dimension [place] TBIL is not recommended. Chloride [Moles/Vol] 107 mmol/L 98-107 [facility] Work Phone: Glucose [Mass/Vol] 281 mg/dL 74-106 [facility] Work Phone: Comment on above: Glucose result great er than or equal to 200 mg/dLsuggests DIABETES MELLITUS per A.D.A. criteria. Potassium [Moles/Vol] 3.6 mmol/L 3.5-5.1 [facility] Work Phone: Protein [Mass/Vol] 6.8 g/dL 6.4-8.2 [facility] Work Phone: Sodium [Moles/Vol] 140 mmol/L 136-145 [facility] Work Phone: WBC (Bld) [#/Vol] 11.1 10*3/uL 4.4-11.0 [facility] Work Phone: Blood erythrocytes count (nu mber/volume)on 05-10-2022 RBC (Bld) [#/Vol] 4.51 10*6/uL 4.2-5.4 [facility] Work Phone: [phone] Blood hemoglobin measurement (mass/volume)on 05-10-2022 Hemoglobin (Bld) [Mass/Vol] 13.6 g/dL 12.0-15.0 [facility] Work Phone: [phone] Blood platelet mean volumeon 05-10-2022 Platelet mean volume (Bld) [Entitic vol] 9.0 fL 6.2-12.0 [facility] Work Phone: [phone] Determination of erythrocyte mean corpuscular volume (MCV)on 05-10-2022 MCV (RBC) [Entitic vol] 90.7 fL 81-99 [facility] Work Phone: Direct bilirubinon Bilirubin.direct [Mass/Vol] 0.15 mg/dL 0.00-0.30 [facility] Work Phone: [phone] Hematocrit Auto (Bld) [Volum e fraction]on 05-10-2022 Hematocrit (Bld) [Volume fraction] 40.9 % 37-47 [facility] Work Phone: Laboratory - Chemistry and C hemistry - challengeon 05-10-2022 ALP [Catalytic activity/Vol] 76 U/L 45-117 [facility] Work Phone: ALT [Catalytic activity/Vol] 19 U/L 13-56 [facility] Work Phone: [phone] CO2 [Moles/Vol] 24.0 mmol/L 21.0-32.0 [facility] Work Phone: [phone] Globulin (S) [Mass/Vol] 3.5 g/dL 2.2-4.2 [facility] Work Phone: Urea nitrogen/Creatinine [Mass ratio] 6.4 mg/mg 10-20 [facility] Work Phone: Laboratory - Hematology and Cell countson 05-10-2022 Erythrocyte distribution width (RBC) [Entitic vol] 46.0 fL 35.1-43.9 [facility] Work Phone: Erythrocyte distribution width (RBC) [Ratio] 13.8 % 11.6-14.6 [facility] Work Phone: MCH (RBC) [Entitic mass] 30.2 pg 27.0-32.0 [facility] Work Phone: MCHC Auto (RBC) [Mass/Vol]on 05-10-2022 MCHC (RBC) [Mass/Vol] 33.3 g/dL 32-36 [facility] Work Phone: No Panel Informationon 05-10 Estimated GFR (MDRD) Amer 96 mL/min >60 [facility] Work Phone: Comment on above: GFR Calc Estimated GFR (MDRD) Non-Af Amer 79 mL/min >60 [facility] Work Phone: Comment on above: Non- GFR Calc Platelets bldon 05-10-2022 Platelets (Bld) [#/Vol] 288 10*3/uL 150-450 [facility] Work Phone: Serum or plasma albumin maria elena urement (mass/volume)on 05-10-2022 Albumin [Mass/Vol] 3.3 g/dL 3.2-5.0 [facility] Work Phone: Serum or plasma calcium maria elena urement (mass/volume)on 05-10-2022 Calcium [Mass/Vol] 9.0 mg/dL 8.5-10.1 [facility] Work Phone: Serum or plasma creatinine m easurement (mass/volume)on 05-10-2022 Creatinine [Mass/Vol] 0.78 mg/dL 0.55-1.02 [facility] Work Phone: Comment on above: The validity of the calculated GFR & GFRAA in patients over 70 years has not been determined. Clinical correlation is essential. Serum or plasma urea nitroge n measurement (mass/volume)on 05-10-2022 Urea nitrogen [Mass/Vol] 5 mg/dL 7-18 [facility] Work Phone: Thin prep Papanicolaou smear with manual screeningon 05-10-2022 Thin prep Papanicolaou smear with manual screening 16 U/L 15-37 [facility] Work Phone: Thin prep Papanicolaou smear with manual screening 9 5-15 [facility] Work Phone: Absolute lymphocyte counton 05-03-2022 Lymphocytes Auto (Unsp spec) [#/Vol] 3.33 10*3/uL 0.83-4.51 [facility] Work Phone: Basophil percentageon 2021 Basophils/100 WBC (Bld) 0.5 % 0-1 [facility] Work Phone: Chloride [Moles/Vol] 109 mmol/L 98-107 [facility] Work Phone: Eosinophils/100 WBC (Bld) 2.2 % 0-5 [facility] Work Phone: Glucose [Mass/Vol] 202 mg/dL 74-106 [facility] Work Phone: Comment on above: Glucose result great er than or equal to 200 mg/dLsuggests DIABETES MELLITUS per A.D.A. criteria. Neutrophils (Bld) [#/Vol] 5.0 10*3/uL 2.0-7.7 [facility] Work Phone: Neutrophils/100 WBC (Bld) 53.9 % 47-70 [facility] Work Phone: Potassium [Moles/Vol] 4.2 mmol/L 3.5-5.1 [facility] Work Phone: Sodium [Moles/Vol] 139 mmol/L 136-145 [facility] Work Phone: WBC (Bld) [#/Vol] 9.2 10*3/uL 4.4-11.0 [facility] Work Phone: Blood erythrocytes count (nu mber/volume)on 05-03-2022 RBC (Bld) [#/Vol] 4.39 10*6/uL 4.2-5.4 [facility] Work Phone: Blood hemoglobin measurement (mass/volume)on 05-03-2022 Hemoglobin (Bld) [Mass/Vol] 13.2 g/dL 12.0-15.0 [facility] Work Phone: Blood lymphocytes/100 leukoc yteson 05-03-2022 Lymphocytes/100 WBC (Bld) 36.2 % 19-41 [facility] Work Phone: Blood monocytes/100 leukocyt eson 05-03-2022 Monocytes/100 WBC (Bld) 6.4 % 0-10 [facility] Work Phone: Blood platelet mean volumeon 05-03-2022 Platelet mean volume (Bld) [Entitic vol] 8.7 fL 6.2-12.0 [facility] Work Phone: Determination of erythrocyte mean corpuscular volume (MCV)on 05-03-2022 MCV (RBC) [Entitic vol] 92.5 fL 81-99 [facility] Work Phone: Glucose Glucometer (BldC) [M ass/Vol]on 05-03-2022 Glucose [Mass/Vol] 270 mg/dL 74-106 [facility] Work Phone: Comment on above: MANAGEMENT OF PATIEN T CARE PER NURSING PROTOCOL Hematocrit Auto (Bld) [Volum e fraction]on 05-03-2022 Hematocrit (Bld) [Volume fraction] 40.6 % 37-47 [facility] Work Phone: Laboratory - Chemistry and C hemistry - challengeon 05-03-2022 CO2 [Moles/Vol] 25.0 mmol/L 21.0-32.0 [facility] Work Phone: [phone] Urea nitrogen/Creatinine [Mass ratio] 15.4 mg/mg 10-20 [facility] Work Phone: [phone] Laboratory - Hematology and Cell countson 05-03-2022 Erythrocyte distribution width (RBC) [Entitic vol] 44.6 fL 35.1-43.9 [facility] Work Phone: [phone] Erythrocyte distribution width (RBC) [Ratio] 13.2 % 11.6-14.6 [facility] Work Phone: [phone] Immature granulocytes/100 WBC (Bld) 0.800 % 0.0-0.9 [facility] Work Phone: [phone] Comment on above: IG% - Immature Granu locytes (promyelocytes, myelocytes and metamyelocytes) > 1% indicates that a LEFT SHIFT is Present. MCH (RBC) [Entitic mass] 30.1 pg 27.0-32.0 [facility] Work Phone: [phone] Nucleated RBC/100 WBC (Bld) [Ratio] 0 % 0-5 [facility] Work Phone: [phone] MCHC Auto (RBC) [Mass/Vol]on 05-03-2022 MCHC (RBC) [Mass/Vol] 32.5 g/dL 32-36 [facility] Work Phone: [phone] No Panel Informationon 05-03 Estimated Creatinine Clearance Calc 90.53 ml/min [facility] Work Phone: [phone] Estimated GFR (MDRD) Amer 133 mL/min >60 [facility] Work Phone: [phone] Comment on above: GFR Calc Estimated GFR (MDRD) Non-Af Amer 110 mL/min >60 [facility] Work Phone: [phone] Comment on above: Non- GFR Calc Platelets bldon 05-03-2022 Platelets (Bld) [#/Vol] 256 10*3/uL 150-450 [facility] Work Phone: [phone] Serum or plasma calcium maria elena urement (mass/volume)on 05-03-2022 Calcium [Mass/Vol] 8.2 mg/dL 8.5-10.1 [facility] Work Phone: Serum or plasma creatinine m easurement (mass/volume)on 05-03-2022 Creatinine [Mass/Vol] 0.58 mg/dL 0.55-1.02 [facility] Work Phone: Comment on above: The validity of the calculated GFR & GFRAA in patients over 70 years has not been determined. Clinical correlation is essential. Serum or plasma urea nitroge n measurement (mass/volume)on 05-03-2022 Urea nitrogen [Mass/Vol] 9 mg/dL 7-18 [facility] Work Phone: Thin prep Papanicolaou smear with manual screeningon 05-03-2022 Thin prep Papanicolaou smear with manual screening 5 5-15 [facility] Work Phone: Basophil percentageon 2021 Lactate [Moles/Vol] 2.5 mmol/L 0.4-2.0 [facility] Work Phone: Comment on above: Critical Result(s) C alled at: 04:42:09 05/01/2022 by: EMILIA Kim RN MS3. Results read back by same. Absolute lymphocyte counton 04-30-2022 Lymphocytes Auto (Unsp spec) [#/Vol] 3.67 10*3/uL 0.83-4.51 [facility] Work Phone: Basophil percentageon 2021 Basophil percentage 10-25 SEEN /hpf 0-5 [facility] Work Phone: Lactate [Moles/Vol] 3.4 mmol/L 0.4-2.0 [facility] Work Phone: Comment on above: Critical Result(s) C alled at: 23:29:24 04/30/2022 by: Alex Arteaga RN (ER). Results read back by same. Basophils/100 WBC (Bld) 0.4 % 0-1 [facility] Work Phone: [phone] Bilirubin [Mass/Vol] 0.50 mg/dL 0.20-1.00 [facility] Work Phone: [phone] Comment on above: For patients on eltr ombopag therapy, use of Dimension [place] TBIL is not recommended. Chloride [Moles/Vol] 104 mmol/L 98-107 [facility] Work Phone: [phone] Eosinophils/100 WBC (Bld) 1.2 % 0-5 [facility] Work Phone: [phone] Glucose [Mass/Vol] 359 mg/dL 74-106 [facility] Work Phone: Comment on above: Glucose result great er than or equal to 200 mg/dLsuggests DIABETES MELLITUS per A.D.A. criteria. Neutrophils (Bld) [#/Vol] 5.6 10*3/uL 2.0-7.7 [facility] Work Phone: [phone] Neutrophils/100 WBC (Bld) 54.5 % 47-70 [facility] Work Phone: [phone] Potassium [Moles/Vol] 3.8 mmol/L 3.5-5.1 [facility] Work Phone: [phone] Comment on above: Moderate Hemolysis, Result may be falsely increased. Protein [Mass/Vol] 6.4 g/dL 6.4-8.2 [facility] Work Phone: [phone] Sodium [Moles/Vol] 139 mmol/L 136-145 [facility] Work Phone: [phone] WBC (Bld) [#/Vol] 10.3 10*3/uL 4.4-11.0 [facility] Work Phone: [phone] Bilirubin Test strip Ql (U)o n 04-30-2022 Bilirubin Ql (U) Negative Negative [facility] Work Phone: [phone] Blood erythrocytes count (nu mber/volume)on 04-30-2022 RBC (Bld) [#/Vol] 4.63 10*6/uL 4.2-5.4 [facility] Work Phone: Blood hemoglobin measurement (mass/volume)on 04-30-2022 Hemoglobin (Bld) [Mass/Vol] 13.7 g/dL 12.0-15.0 [facility] Work Phone: Blood lymphocytes/100 leukoc yteson 04-30-2022 Lymphocytes/100 WBC (Bld) 35.7 % 19-41 [facility] Work Phone: [phone] Blood monocytes/100 leukocyt eson 04-30-2022 Monocytes/100 WBC (Bld) 7.8 % 0-10 [facility] Work Phone: [phone] Blood platelet mean volumeon 04-30-2022 Platelet mean volume (Bld) [Entitic vol] 9.5 fL 6.2-12.0 [facility] Work Phone: [phone] Determination of erythrocyte mean corpuscular volume (MCV)on 04-30-2022 MCV (RBC) [Entitic vol] 90.7 fL 81-99 [facility] Work Phone: [phone] Hematocrit Auto (Bld) [Volum e fraction]on 04-30-2022 Hematocrit (Bld) [Volume fraction] 42.0 % 37-47 [facility] Work Phone: INR in Blood by Coagulation assayon 04-30-2022 INR Coag (Bld) [Relative time] 1.0 {INR} [facility] Work Phone: [phone] Ketones Test strip Ql (U)on 04-30-2022 Ketones Ql (U) 15 mg/dl Negative [facility] Work Phone: Laboratory - Chemistry and C hemistry - challengeon 04-30-2022 ALP [Catalytic activity/Vol] 76 U/L 45-117 [facility] Work Phone: ALT [Catalytic activity/Vol] 34 U/L 13-56 [facility] Work Phone: [phone] CO2 [Moles/Vol] 25.0 mmol/L 21.0-32.0 [facility] Work Phone: Globulin (S) [Mass/Vol] 3.6 g/dL 2.2-4.2 [facility] Work Phone: [phone] Urea nitrogen/Creatinine [Mass ratio] 9.6 mg/mg 10-20 [facility] Work Phone: [phone] Laboratory - Coagulationon 0 04-30-2022 aPTT Coag (Bld) [Time] 28.3 s 24.1-36.2 [facility] Work Phone: [phone] PT Coag (PPP) [Time] 12.9 s 11.7-14.9 [facility] Work Phone: Laboratory - Hematology and Cell countson 04-30-2022 Erythrocyte distribution width (RBC) [Entitic vol] 44.7 fL 35.1-43.9 [facility] Work Phone: [phone] Erythrocyte distribution width (RBC) [Ratio] 13.4 % 11.6-14.6 [facility] Work Phone: Immature granulocytes/100 WBC (Bld) 0.400 % 0.0-0.9 [facility] Work Phone: Comment on above: IG% - Immature Granu locytes (promyelocytes, myelocytes and metamyelocytes) > 1% indicates that a LEFT SHIFT is Present. MCH (RBC) [Entitic mass] 29.6 pg 27.0-32.0 [facility] Work Phone: Nucleated RBC/100 WBC (Bld) [Ratio] 0 % 0-5 [facility] Work Phone: [phone] MCHC Auto (RBC) [Mass/Vol]on 04-30-2022 MCHC (RBC) [Mass/Vol] 32.6 g/dL 32-36 [facility] Work Phone: Mucus LM Ql (Urine sed)on Mucus Ql (Urine sed) 0 SEEN /hpf [facility] Work Phone: [phone] Nitrite Test strip Ql (U)on 04-30-2022 Nitrite Ql (U) Positive Negative [facility] Work Phone: No Panel Informationon 04-30 Estimated Creatinine Clearance Calc 58.02 ml/min [facility] Work Phone: [phone] Estimated GFR (MDRD) Amer 77 mL/min >60 [facility] Work Phone: [phone] Comment on above: GFR Calc Estimated GFR (MDRD) Non-Af Amer 63 mL/min >60 [facility] Work Phone: Comment on above: Non- GFR Calc Troponin I High Sensitivity 12 pg/mL 3.0-54.0 [facility] Work Phone: Comment on above: Please Note: New Jesusita t Units and Gender Specific Reference Ranges. For more information see Policy Stat Procedure [place] High Sensitivity Troponin (TNIH) and attachments. Platelets bldon 04-30-2022 Platelets (Bld) [#/Vol] 275 10*3/uL 150-450 [facility] Work Phone: [phone] Protein Test strip Ql (U)on 04-30-2022 Protein Ql (U) 15 mg/dl Negative [facility] Work Phone: [phone] Serum or plasma albumin maria elena urement (mass/volume)on 04-30-2022 Albumin [Mass/Vol] 2.8 g/dL 3.2-5.0 [facility] Work Phone: [phone] Serum or plasma albumin/glob ulin mass ratioon 04-30-2022 Albumin/Globulin [Mass ratio] 0.8 {ratio} 0.9-2.4 [facility] Work Phone: [phone] Serum or plasma calcium maria elena urement (mass/volume)on 04-30-2022 Calcium [Mass/Vol] 9.4 mg/dL 8.5-10.1 [facility] Work Phone: [phone] Serum or plasma creatinine m easurement (mass/volume)on 04-30-2022 Creatinine [Mass/Vol] 0.94 mg/dL 0.55-1.02 [facility] Work Phone: Comment on above: The validity of the calculated GFR & GFRAA in patients over 70 years has not been determined. Clinical correlation is essential. Serum or plasma urea nitroge n measurement (mass/volume)on 04-30-2022 Urea nitrogen [Mass/Vol] 9 mg/dL 7-18 [facility] Work Phone: Squamous epithelial cells de tection in urine sediment by light microscopyon 04-30-2022 Epithelial cells.squamous LM Ql (Urine sed) 0-5 SEEN /hpf 5-10 [facility] Work Phone: [phone] Thin prep Papanicolaou smear with manual screeningon 04-30-2022 Thin prep Papanicolaou smear with manual screening 41 U/L 15-37 [facility] Work Phone: [phone] Comment on above: Moderate Hemolysis, Result may be falsely increased. Thin prep Papanicolaou smear with manual screening 10 5-15 [facility] Work Phone: Urine blood detectionon RBC Ql (U) 10 /ul Negative [facility] Work Phone: [phone] RBC Ql (U) 0-5 SEEN /hpf 0-5 [facility] Work Phone: [phone] Urine clarityon 04-30-2022 Clarity (U) Sl Cldy Clear [facility] Work Phone: [phone] Urine color determinationon 04-30-2022 Color (U) Yellow Yellow [facility] Work Phone: Urine glucose detectionon Glucose Ql (U) 1000 mg/dl Normal [facility] Work Phone: [phone] Urine leukocyte esterase det ection by dipstickon 04-30-2022 Leukocyte esterase Test strip Ql (U) 25 /ul Negative [facility] Work Phone: [phone] Urine pHon 04-30-2022 pH (U) 6.0 [pH] 5.0 - 8.0 [facility] Work Phone: [phone] Urine sediment bacteria coun t by microscopy (number/high power field)on 04-30-2022 Bacteria LM.HPF (Urine sed) [#/Area] 4 /[HPF] None Seen [facility] Work Phone: Urine sediment yeast count b y microscopy (number/high powered field)on 04-30-2022 Yeast LM.HPF (Urine sed) [#/Area] RARE /hpf None Seen [facility] Work Phone: Urine specific gravity measu rementon 04-30-2022 Specific gravity (U) [Rel density] 1.020 1.002-1.030 [facility] Work Phone: Urobilinogen Auto test strip Ql (U)on 04-30-2022 Urobilinogen Ql (U) Normal mg/dl Normal [facility] Work Phone: Absolute lymphocyte counton 01-22-2022 Lymphocytes Auto (Unsp spec) [#/Vol] 3.49 10*3/uL 0.83-4.51 [facility] Work Phone: Basophil percentageon 2021 Basophils/100 WBC (Bld) 0.6 % 0-1 [facility] Work Phone: Chloride [Moles/Vol] 107 mmol/L 98-107 [facility] Work Phone: Eosinophils/100 WBC (Bld) 1.5 % 0-5 [facility] Work Phone: Glucose [Mass/Vol] 204 mg/dL 74-106 [facility] Work Phone: Comment on above: Glucose result great er than or equal to 200 mg/dLsuggests DIABETES MELLITUS per A.D.A. criteria. Neutrophils (Bld) [#/Vol] 5.1 10*3/uL 2.0-7.7 [facility] Work Phone: Neutrophils/100 WBC (Bld) 53.5 % 47-70 [facility] Work Phone: Potassium [Moles/Vol] 4.0 mmol/L 3.5-5.1 [facility] Work Phone: Sodium [Moles/Vol] 139 mmol/L 136-145 [facility] Work Phone: WBC (Bld) [#/Vol] 9.5 10*3/uL 4.4-11.0 [facility] Work Phone: Blood erythrocytes count (nu mber/volume)on 01-22-2022 RBC (Bld) [#/Vol] 4.40 10*6/uL 4.2-5.4 [facility] Work Phone: Blood hemoglobin measurement (mass/volume)on 01-22-2022 Hemoglobin (Bld) [Mass/Vol] 13.4 g/dL 12.0-15.0 [facility] Work Phone: Blood lymphocytes/100 leukoc yteson 01-22-2022 Lymphocytes/100 WBC (Bld) 36.8 % 19-41 [facility] Work Phone: Blood monocytes/100 leukocyt eson 01-22-2022 Monocytes/100 WBC (Bld) 7.1 % 0-10 [facility] Work Phone: Blood platelet mean volumeon 01-22-2022 Platelet mean volume (Bld) [Entitic vol] 9.6 fL 6.2-12.0 [facility] Work Phone: Determination of erythrocyte mean corpuscular volume (MCV)on 01-22-2022 MCV (RBC) [Entitic vol] 94.5 fL 81-99 [facility] Work Phone: Glucose Glucometer (BldC) [M ass/Vol]on 01-22-2022 Glucose [Mass/Vol] 261 mg/dL 74-106 [facility] Work Phone: Comment on above: MANAGEMENT OF PATIEN T CARE PER NURSING PROTOCOL Hematocrit Auto (Bld) [Volum e fraction]on 01-22-2022 Hematocrit (Bld) [Volume fraction] 41.6 % 37-47 [facility] [facility] Work Phone: Laboratory - Chemistry and C hemistry - challengeon 01-22-2022 CO2 [Moles/Vol] 27.0 mmol/L 21.0-32.0 [facility] Work Phone: Urea nitrogen/Creatinine [Mass ratio] 16.2 mg/mg 10-20 [facility] Work Phone: [phone] Laboratory - Hematology and Cell countson 01-22-2022 Erythrocyte distribution width (RBC) [Entitic vol] 47.4 fL 35.1-43.9 [facility] Work Phone: [phone] Erythrocyte distribution width (RBC) [Ratio] 13.5 % 11.6-14.6 [facility] Work Phone: [phone] Immature granulocytes/100 WBC (Bld) 0.500 % 0.0-0.9 [facility] Work Phone: [phone] Comment on above: IG% - Immature Granu locytes (promyelocytes, myelocytes and metamyelocytes) > 1% indicates that a LEFT SHIFT is Present. MCH (RBC) [Entitic mass] 30.5 pg 27.0-32.0 [facility] Work Phone: [phone] Nucleated RBC/100 WBC (Bld) [Ratio] 0 % 0-5 [facility] Work Phone: [phone] MCHC Auto (RBC) [Mass/Vol]on 01-22-2022 MCHC (RBC) [Mass/Vol] 32.2 g/dL 32-36 [facility] Work Phone: [phone] Panel Informationon 01-22 Estimated Creatinine Clearance Calc 74.69 ml/min [facility] Work Phone: [phone] Estimated GFR (MDRD) Amer 101 mL/min >60 [facility] Work Phone: [phone] Comment on above: GFR Calc Estimated GFR (MDRD) Non-Af Amer 84 mL/min >60 [facility] Work Phone: [phone] Comment on above: Non- GFR Calc Platelets bldon 01-22-2022 Platelets (Bld) [#/Vol] 277 10*3/uL 150-450 [facility] Work Phone: [phone] Serum or plasma calcium maria elena urement (mass/volume)on 01-22-2022 Calcium [Mass/Vol] 8.6 mg/dL 8.5-10.1 [facility] Work Phone: Serum or plasma creatinine m easurement (mass/volume)on 01-22-2022 Creatinine [Mass/Vol] 0.74 mg/dL 0.55-1.02 [facility] Work Phone: Comment on above: The validity of the calculated GFR & GFRAA in patients over 70 years has not been determined. Clinical correlation is essential. Serum or plasma urea nitroge n measurement (mass/volume)on 01-22-2022 Urea nitrogen [Mass/Vol] 12 mg/dL 7-18 [facility] Work Phone: Thin prep Papanicolaou smear with manual screeningon 01-22-2022 Thin prep Papanicolaou smear with manual screening 5 5-15 [facility] Work Phone: Absolute lymphocyte counton 01-17-2022 Lymphocytes Auto (Unsp spec) [#/Vol] 3.77 10*3/uL 0.83-4.51 [facility] Work Phone: Basophil percentageon 2021 Lactate [Moles/Vol] 2.2 mmol/L 0.4-2.0 [facility] Work Phone: Comment on above: Critical Result(s) C alled at: 21:46:08 01/17/2022 by: Alex Benjamin to Geovanna Berrios RN (MS3). Results read back by same. Basophils/100 WBC (Bld) 0.3 % 0-1 [facility] Work Phone: Chloride [Moles/Vol] 108 mmol/L 98-107 [facility] Work [facility]: Eosinophils/100 WBC (Bld) 1.0 % 0-5 [facility] Work Phone: [phone] Glucose [Mass/Vol] 102 mg/dL 74-106 [facility] Work Phone: Comment on above: Fasting Glucose resu lt from 100 to 125 mg/dL suggests IMPAIRED HOMEOSTASIS per A.D.A. criteria. Lactate [Moles/Vol] 3.1 mmol/L 0.4-2.0 [facility] Work Phone: Comment on above: Critical Result(s) C alled at: 17:18:10 01/17/2022 by: Alex Clancy RN(ER). Results read back by same. Neutrophils (Bld) [#/Vol] 9.4 10*3/uL 2.0-7.7 [facility] Work Phone: Neutrophils/100 WBC (Bld) 65.4 % 47-70 [facility] Work Phone: [phone] Potassium [Moles/Vol] 3.4 mmol/L 3.5-5.1 [facility]: [phone] Sodium [Moles/Vol] 142 mmol/L 136-145 [facility]: [phone] WBC (Bld) [#/Vol] 14.4 10*3/uL 4.4-11.0 [facility] Work Phone: Basophil percentage 25-50 SEEN /hpf 0-5 [facility] Work Phone: [phone] Bilirubin Test strip Ql (U)o n 01-17-2022 Bilirubin Ql (U) Negative Negative [facility] Work Phone: Blood erythrocytes count (nu mber/volume)on 01-17-2022 RBC (Bld) [#/Vol] 4.83 10*6/uL 4.2-5.4 [facility] Work Phone: Blood hemoglobin measurement (mass/volume)on 01-17-2022 Hemoglobin (Bld) [Mass/Vol] 14.8 g/dL 12.0-15.0 [facility] Work Phone: Blood lymphocytes/100 leukoc yteson 01-17-2022 Lymphocytes/100 WBC (Bld) 26.2 % 19-41 [facility] Work Phone: Blood monocytes/100 leukocyt eson 01-17-2022 Monocytes/100 WBC (Bld) 6.6 % 0-10 [facility] Work Phone: [phone] Blood platelet mean volumeon 01-17-2022 Platelet mean volume (Bld) [Entitic vol] 9.0 fL 6.2-12.0 [facility] Work Phone: [phone] Culture, urineon 01-17-2022 Bacteria identified Cx Nom (U) Escherichia coli [facility] Work Phone: [phone] Determination of erythrocyte mean corpuscular volume (MCV)on 01-17-2022 MCV (RBC) [Entitic vol] 93.4 fL 81-99 [facility] Work Phone: [phone] Hematocrit Auto (Bld) [Volum e fraction]on 01-17-2022 Hematocrit (Bld) [Volume fraction] 45.1 % 37-47 [facility] Work Phone: [phone] Ketones Test strip Ql (U)on 01-17-2022 Ketones Ql (U) 5 mg/dl Negative [facility] Work Phone: [phone] Laboratory - Chemistry and C hemistry - challengeon 01-17-2022 CO2 [Moles/Vol] 27.0 mmol/L 21.0-32.0 [facility] Work Phone: [phone] Urea nitrogen/Creatinine [Mass ratio] 10.4 mg/mg 10-20 [facility] Work Phone: [phone] Laboratory - Hematology and Cell countson 01-17-2022 Erythrocyte distribution width (RBC) [Entitic vol] 47.9 fL 35.1-43.9 [facility] Work Phone: [phone] Erythrocyte distribution width (RBC) [Ratio] 13.9 % 11.6-14.6 [facility] Work Phone: [phone] Immature granulocytes/100 WBC (Bld) 0.500 % 0.0-0.9 [facility] Work Phone: [phone] Comment on above: IG% - Immature Granu locytes (promyelocytes, myelocytes and metamyelocytes) > 1% indicates that a LEFT SHIFT is Present. MCH (RBC) [Entitic mass] 30.6 pg 27.0-32.0 [facility] Work Phone: Nucleated RBC/100 WBC (Bld) [Ratio] 0 % 0-5 [facility] Work Phone: [phone] MCHC Auto (RBC) [Mass/Vol]on 01-17-2022 MCHC (RBC) [Mass/Vol] 32.8 g/dL 32-36 [facility] Work Phone: [phone] Mucus LM Ql (Urine sed)on Mucus Ql (Urine sed) 0 SEEN /hpf [facility] Work Phone: [phone] Nitrite Test strip Ql (U)on 01-17-2022 Nitrite Ql (U) Positive Negative [facility] Work Phone: No Panel Informationon 01-17 Estimated Creatinine Clearance Calc 71.78 ml/min [facility] Work Phone: Estimated GFR (MDRD) Amer 97 mL/min >60 [facility] Work Phone: Comment on above: GFR Calc Estimated GFR (MDRD) Non-Af Amer 80 mL/min >60 [facility] Work Phone: Comment on above: Non- GFR Calc Platelets bldon 01-17-2022 Platelets (Bld) [#/Vol] 339 10*3/uL 150-450 [facility] Work Phone: Protein Test strip Ql (U)on 01-17-2022 Protein Ql (U) 30 mg/dl Negative [facility] Work Phone: [phone] Serum or plasma calcium maria elena urement (mass/volume)on 01-17-2022 Calcium [Mass/Vol] 8.9 mg/dL 8.5-10.1 [facility] Work Phone: [phone] Serum or plasma creatinine m easurement (mass/volume)on 01-17-2022 Creatinine [Mass/Vol] 0.77 mg/dL 0.55-1.02 [facility] Work Phone: Comment on above: The validity of the calculated GFR & GFRAA in patients over 70 years has not been determined. Clinical correlation is essential. Serum or plasma urea nitroge n measurement (mass/volume)on 01-17-2022 Urea nitrogen [Mass/Vol] 8 mg/dL 7-18 [facility] Work Phone: [phone] Squamous epithelial cells de tection in urine sediment by light microscopyon 01-17-2022 Epithelial cells.squamous LM Ql (Urine sed) 5-10 SEEN /hpf 5-10 [facility] Work Phone: [phone] Thin prep Papanicolaou smear with manual screeningon 01-17-2022 Thin prep Papanicolaou smear with manual screening 7 5-15 [facility] Work Phone: [phone] Urine blood detectionon 12-24 RBC Ql (U) 25 /ul Negative [facility] Work Phone: [phone] RBC Ql (U) 0-5 SEEN /hpf 0-5 [facility] Work Phone: [phone] Urine clarityon 01-17-2022 Clarity (U) Cloudy Clear [facility] Work Phone: Urine color determinationon 01-17-2022 Color (U) Yellow Yellow [facility] Work Phone: [phone] Urine glucose detectionon Glucose Ql (U) 50 mg/dl Normal [facility] Work Phone: [phone] Urine leukocyte esterase det ection by dipstickon 01-17-2022 Leukocyte esterase Test strip Ql (U) 500 /ul Negative [facility] Work Phone: [phone] Urine pHon 01-17-2022 pH (U) 6.0 [pH] 5.0 - 8.0 [facility] Work Phone: [phone] Urine sediment bacteria coun t by microscopy (number/high power field)on 01-17-2022 Bacteria LM.HPF (Urine sed) [#/Area] 4 /[HPF] None Seen [facility] Work Phone: [phone] Urine specific gravity measu rementon 01-17-2022 Specific gravity (U) [Rel density] 1.020 1.002-1.030 [facility] Work Phone: Urobilinogen Auto test strip Ql (U)on 01-17-2022 Urobilinogen Ql (U) Normal mg/dl Normal [facility] Work Phone: Absolute lymphocyte counton 01-02-2022 Lymphocytes Auto (Unsp spec) [#/Vol] 4.60 10*3/uL 0.83-4.51 [facility] Work Phone: Basophil percentageon 2021 Bilirubin [Mass/Vol] 0.40 mg/dL 0.20-1.00 [facility] Work Phone: Comment on above: For patients on eltr ombopag therapy, use of Dimension [place] TBIL is not recommended. Chloride [Moles/Vol] 106 mmol/L 98-107 [facility] Work Phone: Glucose [Mass/Vol] 294 mg/dL 74-106 [facility] Work Phone: Comment on above: Glucose result great er than or equal to 200 mg/dLsuggests DIABETES MELLITUS per A.D.A. criteria. Potassium [Moles/Vol] 4.1 mmol/L 3.5-5.1 [facility] Work Phone: Protein [Mass/Vol] 6.5 g/dL 6.4-8.2 [facility] Work Phone: Sodium [Moles/Vol] 137 mmol/L 136-145 [facility] Work Phone: Basophil percentage 25-50 SEEN /hpf 0-5 [facility] Work Phone: Basophils/100 WBC (Bld) 0.5 % 0-1 [facility] Work Phone: Eosinophils/100 WBC (Bld) 0.8 % 0-5 [facility] Work Phone: Neutrophils (Bld) [#/Vol] 11.2 10*3/uL 2.0-7.7 [facility] Work Phone: Neutrophils/100 WBC (Bld) 65.1 % 47-70 [facility] Work Phone: WBC (Bld) [#/Vol] 17.2 10*3/uL 4.4-11.0 [facility] Work Phone: Bilirubin Test strip Ql (U)o n 01-02-2022 Bilirubin Ql (U) Negative Negative [facility] Work Phone: [phone] Blood erythrocytes count (nu mber/volume)on 01-02-2022 RBC (Bld) [#/Vol] 5.23 10*6/uL 4.2-5.4 [facility] Work Phone: [phone] Blood hemoglobin measurement (mass/volume)on 01-02-2022 Hemoglobin (Bld) [Mass/Vol] 15.9 g/dL 12.0-15.0 [facility] Work Phone: Blood lymphocytes/100 leukoc yteson 01-02-2022 Lymphocytes/100 WBC (Bld) 26.8 % 19-41 [facility] Work Phone: Blood monocytes/100 leukocyt eson 01-02-2022 Monocytes/100 WBC (Bld) 5.9 % 0-10 [facility] Work Phone: [phone] Blood platelet adequacy dete ction by light microscopyon 01-02-2022 Platelets LM Ql (Bld) ADEQUATE ADEQ [facility] Work Phone: [phone] Blood platelet mean volumeon 01-02-2022 Platelet mean volume (Bld) [Entitic vol] 9.0 fL 6.2-12.0 [facility] Work Phone: Culture, urineon 01-02-2022 Bacteria identified Cx Nom (U) Escherichia coli [facility] Work Phone: [phone] Bacteria identified Cx Nom (U) Positive [facility] Work Phone: [phone] Determination of erythrocyte mean corpuscular volume (MCV)on 01-02-2022 MCV (RBC) [Entitic vol] 92.9 fL 81-99 [facility] Work Phone: [phone] Hematocrit Auto (Bld) [Volum e fraction]on 01-02-2022 Hematocrit (Bld) [Volume fraction] 48.6 % 37-47 [facility] Work Phone: [phone] Ketones Test strip Ql (U)on 01-02-2022 Ketones Ql (U) 15 mg/dl Negative [facility] Work Phone: [phone] Laboratory - Chemistry and C hemistry - challengeon 01-02-2022 ALP [Catalytic activity/Vol] 68 U/L 45-117 [facility] Work Phone: [phone] ALT [Catalytic activity/Vol] 19 U/L 13-56 [facility] Work Phone: [phone] CO2 [Moles/Vol] 25.0 mmol/L 21.0-32.0 [facility] Work Phone: [phone] Globulin (S) [Mass/Vol] 3.3 g/dL 2.2-4.2 [facility] Work Phone: [phone] Urea nitrogen/Creatinine [Mass ratio] 10.6 mg/mg 10-20 [facility] Work Phone: [phone] Laboratory - Hematology and Cell countson 01-02-2022 Erythrocyte distribution width (RBC) [Entitic vol] 47.4 fL 35.1-43.9 [facility] Work Phone: [phone] Erythrocyte distribution width (RBC) [Ratio] 14.0 % 11.6-14.6 [facility] Work Phone: [phone] Immature granulocytes/100 WBC (Bld) 0.900 % 0.0-0.9 [facility] Work Phone: [phone] Comment on above: IG% - Immature Granu locytes (promyelocytes, myelocytes and metamyelocytes) > 1% indicates that a LEFT SHIFT is Present. MCH (RBC) [Entitic mass] 30.4 pg 27.0-32.0 [facility] Work Phone: [phone] Nucleated RBC/100 WBC (Bld) [Ratio] 0 % 0-5 [facility] Work Phone: [phone] MCHC Auto (RBC) [Mass/Vol]on 01-02-2022 MCHC (RBC) [Mass/Vol] 32.7 g/dL 32-36 [facility] Work Phone: Mucus LM Ql (Urine sed)on Mucus Ql (Urine sed) 0 SEEN /hpf [facility] Work Phone: Nitrite Test strip Ql (U)on 01-02-2022 Nitrite Ql (U) Negative Negative [facility] Work Phone: No Panel Informationon 01-02 Estimated Creatinine Clearance Calc 62.59 ml/min [facility] Work Phone: [phone] Estimated GFR (MDRD) Amer 86 mL/min >60 [facility] Work Phone: Comment on above: GFR Calc Estimated GFR (MDRD) Non-Af Amer 71 mL/min >60 [facility] Work Phone: Comment on above: Non- GFR Calc Platelets bldon 01-02-2022 Platelets (Bld) [#/Vol] 456 10*3/uL 150-450 [facility] Work Phone: Protein Test strip Ql (U)on 01-02-2022 Protein Ql (U) 30 mg/dl Negative [facility] Work Phone: RBC morphologyon 01-02-2022 RBC morphology finding Nom (Bld) NORM C+C NORMAL NORM C&C [facility] Work Phone: [phone] Serum or plasma albumin maria elena urement (mass/volume)on 01-02-2022 Albumin [Mass/Vol] 3.2 g/dL 3.2-5.0 [facility] Work Phone: Serum or plasma albumin/glob ulin mass ratioon 01-02-2022 Albumin/Globulin [Mass ratio] 1.0 {ratio} 0.9-2.4 [facility] Work Phone: Serum or plasma calcium maria elena urement (mass/volume)on 01-02-2022 Calcium [Mass/Vol] 8.5 mg/dL 8.5-10.1 [facility] Work Phone: Serum or plasma creatinine m easurement (mass/volume)on 01-02-2022 Creatinine [Mass/Vol] 0.85 mg/dL 0.55-1.02 [facility] Work Phone: Comment on above: The validity of the calculated GFR & GFRAA in patients over 70 years has not been determined. Clinical correlation is essential. Serum or plasma urea nitroge n measurement (mass/volume)on 01-02-2022 Urea nitrogen [Mass/Vol] 9 mg/dL 7-18 [facility] Work Phone: [phone] Squamous epithelial cells de tection in urine sediment by light microscopyon 01-02-2022 Epithelial cells.squamous LM Ql (Urine sed) 0-5 SEEN /hpf 5-10 [facility] Work Phone: Thin prep Papanicolaou smear with manual screeningon 01-02-2022 Thin prep Papanicolaou smear with manual screening 26 U/L 15-37 [facility] Work Phone: [phone] Thin prep Papanicolaou smear with manual screening 6 5-15 [facility] Work Phone: Urine blood detectionon 12-23 RBC Ql (U) 25 /ul Negative [facility] Work Phone: RBC Ql (U) 0-5 SEEN /hpf 0-5 [facility] Work Phone: [phone] Urine clarityon 01-02-2022 Clarity (U) Sl. Cloudy Clear [facility] Work Phone: Urine color determinationon 01-02-2022 Color (U) Yellow Yellow [facility] Work Phone: [phone] Urine glucose detectionon Glucose Ql (U) 250 mg/dl Normal [facility] Work Phone: [phone] Urine leukocyte esterase det ection by dipstickon 01-02-2022 Leukocyte esterase Test strip Ql (U) 500 /ul Negative [facility] Work Phone: [phone] Urine pHon 01-02-2022 pH (U) 6.0 [pH] 5.0 - 8.0 [facility] Work Phone: Urine sediment bacteria coun t by microscopy (number/high power field)on 01-02-2022 Bacteria LM.HPF (Urine sed) [#/Area] 1 /[HPF] None Seen [facility] Work Phone: Urine specific gravity measu rementon 01-02-2022 Specific gravity (U) [Rel density] 1.025 1.002-1.030 [facility] Work Phone: Urobilinogen Auto test strip Ql (U)on 01-02-2022 Urobilinogen Ql (U) 1 mg/dl Normal [facility] Work Phone: UA DIP, URINE (POC)on 2021 BILIRUBIN UA (POCT) Negative Negative [facility] CLARITY UA (POCT) Slightly Cloudy Cl [facility] COLOR UA (POCT) Dark yellow [facility] GLUCOSE UA (POCT) 500 mg/dL Abnormal Negative mg/dL [facility] HEMOGLOBIN/BLOOD UA (POCT) Negative Negative [facility] KETONE UA (POCT) 15 mg/dL Abnormal Negative mg/dL [facility] LEUKOCYTES UA (POCT) Trace Abnormal Negative [facility] NITRITE UA (POCT) Positive Abnormal Negative [facility] PH UA (POCT) 5.5 4.5 - 8.0 [facility] Protein Ql (U) Negative Negative mg/dL [facility] SPECIFIC GRAVITY UA (POCT) >=1.030 1.005 - 1.030 [facility] UROBILINOGEN UA (POCT) 0.2 E.U./dL Christine l E.U./dL [facility] COVID-19/INFLUENZA A,B MOLEC ULARon 07-16-2021 SARS-CoV-2 (COVID-19) Ab IA Ql SARS-COV-2 RNA (HEIDI): Not Detected INFLUENZA A (HEIDI): Not Detected INFLUENZA B (HEIDI): Not Detected Normal Not Detected [facility] Comment on above: Order Comment: This test was performed under the FDA's Emergency Use Authorization (EUA). Testing was performed using the Maureen SARS-CoV-2 RT-PCR AND Influenza A/B assay on the Heidi Maureen 6800 System. This test has not been approved for use in asymptomatic patients and its performance in this patient population has not been evaluated. Negative results do not rule out the presence of SARS-CoV-2/COVID-19, influenza A, and/or influenza B. Fact sheets for this EUA can be found at the following links: For Healthcare Providers: https://www.enVista.gov/media/637984/download ? For Patients: https://www.fda.gov/media/143678/download Performed By: #### L [id number] #### [facility] [address] [place] [address] Phillip Badillo M.D. [id number] XR Chest PA and Lateralon IMPRESSION: No acute radiographic abnormality. Farmer Cash Grain: JOHNIE Transcribe Date/Time: Apr 11 2021 1:51P Dictated by : ELIJAH FORD DO This examination was interpreted and the report reviewed and electronically signed by: ELIJAH FORD DO on Apr 11 2021 1:53PM [facility] DIVISION OF RADIOLOGY * * *Final Report* * * DATE OF EXAM: Apr 11 2021 1:42PM WOX [id number] - XR CHEST 2V FRONTAL/LAT / PROCEDURE REASON: Cough * * * * Physician Interpretation * * * * EXAMINATION: CHEST RADIOGRAPH (2 VIEW FRONTAL & LATERAL) CLINICAL HISTORY: PATIENT/TECHNOLOGIST PROVIDED HISTORY: cough, headache, sore throat for 10-12 days CLINICAL INFORMATION: 66 years old Female with Cough MQ: [id number] EXAM DATE/TIME: 04/11/2021 1:42 PM COMPARISON: 07/27/2020, 08/23/2019 RESULT: Lines, tubes, and devices: None. Lungs and pleura: No focal consolidation or edema. No pleural effusion or pneumothorax. Cardiomediastinal silhouette: Normal cardiomediastinal silhouette. Bones and soft tissues: Endplate degenerative changes of the thoracic spine. DIVISION OF RADIOLOGY Provider, [facility] Jose Carlos Argueta - 04/11/2021 * * *Final Report* * * DATE OF EXAM: Apr 11 2021 1:42PM WOX [id number] - XR CHEST 2V FRONTAL/LAT / PROCEDURE REASON: Cough * * * * Physician Interpretation * * * * EXAMINATION: CHEST RADIOGRAPH (2 VIEW FRONTAL & LATERAL) CLINICAL HISTORY: PATIENT/TECHNOLOGIST PROVIDED HISTORY: cough, headache, sore throat for 10-12 days CLINICAL INFORMATION: 66 years old Female with Cough MQ: [id number] EXAM DATE/TIME: 04/11/2021 1:42 PM COMPARISON: 07/27/2020, 08/23/2019 RESULT: Lines, tubes, and devices: None. Lungs and pleura: No focal consolidation or edema. No pleural effusion or pneumothorax. Cardiomediastinal silhouette: Normal cardiomediastinal silhouette. Bones and soft tissues: Endplate degenerative changes of the thoracic spine. IMPRESSION IMPRESSION: No acute radiographic abnormality. Farmer [employer]: JOHNIE Transcribe Date/Time: Apr 11 2021 1:51P Dictated by : ELIJAH FORD DO This examination was interpreted and the report reviewed and electronically signed by: ELIJAH FORD DO on Apr 11 2021 1:53PM EST [facility] Radiology Study observation (narrative) Germaine Julian XR Chest PA and LateralOrder ed By: [facility] Provider on 04-11-2021 [facility] HISTORY PHYSICALon HISTORY PHYSICAL HNO ID: [id number] Author: Maryellen Barrera MD Service: Interventional Cardiology Author Type: Physician Type: HANDP Filed: 12/29/2020 8:12 AM Note Text: UPDATED HANDP PRE-CARDIAC CATHETERIZATION SERVICE DATE: 12/29/2020 SERVICE TIME: 8:10 PHYSICAL EXAM MUST BE COMPLETED ON ADMISSION The History and Physical (completed in the past 30 days) has been reviewed and the patient has been examined. The contents accurately reflect the patient's condition with the following additions or revisions since the HANDP was completed. Examination indicates no changes. Planned Procedure: Left Heart Cath + Possible PCI Primary Indication for Procedure: Angina Equivalent High Risk Features: History of Prior CABG: No History of Prior PCI: No Cardiomyopathy: No Anti-ischemic Meds in Past 2 Weeks: Beta blockers and Other anti-ischemic drug therapy Ejection Fraction: 60% from Previous Echo Risk Appropriateness: Angina Class in Past 2 Weeks: Class III - Marked limitation of ordinary physical activity Cardiogenic Shock: NoHeart Failure: None Stress Test Performed: Yes, normal EKG Assessment: Normal Family History of Premature CAD: Father, age 60 Evaluation for Preop Clearance: Non-Cardiac Surgery, Functional Capacity; >= 4 METS with symptoms, Surgical Risk; Intermediate HISTORY OF BLEEDING: No This HANDP can be found in the attached. SIGNATURE: Maryellen Barrera MD PATIENT NAME: Ivet Diaz Anjum DATE: December 29, 2020 TIME: 8:10 AM Normal [facility] CNPNon 12-11-2020 CNPN Telephone ([facility]) IVET VALERO ([id number]) 1955 F Date Time Provider Department 12/11/20 MARYELLEN BARRERA During your visit today, we recorded the following information about you: Selena Moyapkins [facility] 12/11/2020 12:27 PM Signed Schedule [facility] on 12/29/[address] Bruce Morales 12/11/2020 1:25 PM Signed Patient scheduled for left heart cath, with Dr Barrera on 12/29/20. Instructions reviewed. Questions answered. Patient verbalized understanding. Instructions were as follows: -Arrive to [facility] HAND Entrance at time assigned by [facility] staff in phone call 2-5 PM 12/28/20 -Pt to increase po water intake day prior to heart cath. Pt may eat a light meal and drink clear liquids until 3 hours prior to procedure. -With a sip of water on 12/29/20 morning take: Aspirin 325mg along with usual BP meds- Carvedilol. Patient to contact PCP regarding dose for insulin that morning. -Labs to be done next week. COVID test to be ordered and scheduled, patient prefers Alex if possible. - You must have someone drive you home from your procedure. -[facility] policy is pt not be alone first evening Office phone number provided for questions or concerns. AsmitaNITIN Meyer 12/11/2020 1:28 PM Signed Please arrange COVID testing 12/27/20 for 12/29/20 heart cath. TY Rishi Joyner 12/11/2020 1:28 PM Signed Addended by: RISHI JOYNER on: 12/11/2020 01:28 PM Modules accepted: Orders Ap Forrester 12/12/2020 10:27 AM Signed Patient scheduled. Ap Usama December 12, 2020 10:27 AM Allergies As of Date: 12/11/2020 Noted Allergy Reaction CHANTIX (VARENICLINE) 01/22/2019 1 - Mental Status Change PENICILLINS 05/25/2008 4 - Hives SULFA (SULFONAMIDE ANTIBIOTICS) 09/19/2016 2 - Rash 14 - Other: See Comments Comments: Blisters and sore in throat Date Reviewed: 12/11/2020 Reviewed by: Maryellen Barrera - Fully Assessed Reason for Visit: Preparations For Procedures [899] Primary Visit Diagnosis:Chest pain, unspecified type [R07.9] Other Visit Diagnoses:SOB (shortness of breath) [R06.02] Primary hypertension [I10] Pre-procedural laboratory examination [Z01.812] Order(s):CBC [SQCBC] Order #: [id number] FUTURE BASIC METABOLIC PNL [SQBMP] Order #: [id number] FUTURE PRE-PROCEDURE AND PRE-OPERATIVE COVID [SQPOCOVD] Order #: [id number] FUTURE Prescriptions as of 12/11/2020 Sig: CARVEDILOL 3.125 MG TABLET Take 1 tablet by mouth twice * NITROFURANTOIN MONOHYDRATE AND * Take 1 capsule by mouth twice* TIZANIDINE 4 MG TABLET Take 1 tablet by mouth every * BUSPIRONE 10 MG TABLET Take 1 tablet by mouth three * MAGNESIUM OXIDE 400 MG (241.3* Take 1 tablet by mouth once d* OMEPRAZOLE 20 MG CAPSULE,LESIA* Take 2 capsules by mouth amber* CETIRIZINE 10 MG TABLET Take 1 tablet by mouth once d* ALBUTEROL SULFATE HFA 90 MCG/* Inhale 2 Puffs as instructed * GABAPENTIN 400 MG CAPSULE Take 1 capsule by mouth three* BREO ELLIPTA 100 MCG-25 MCG/D* Inhale 1 Inhalation as instru* INSULIN LISPRO (U-100) 100 UN* Inject 12 Units subcutaneousl* AMITRIPTYLINE 25 MG TABLET Take 1 tablet by mouth daily * INSULIN GLARGINE (U-300) CONC* Inject 80 Units subcutaneousl* LANCETS 33 GAUGE TEST BLOOD SUGARS 3 TIMES A D* GABAPENTIN 300 MG CAPSULE Take 1 capsule by mouth three* PROMETHAZINE 25 MG TABLET Take 1 tablet by mouth every * PROMETHAZINE 25 MG RECTAL SUP* 1 Suppository by RECTAL route* PEN NEEDLE, DIABETIC 32 GAUGE* Use four times daily with ins* BLOOD GLUCOSE TEST STRIPS Test blood sugar(s) 3 daily. 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] Fibromyalgia [M79.7] History of recurrent UTIs [Z87.440] 11/30/2015 Uncontrolled type 2 diabetes mellitus with hype* Secondary polycythemia [D75.1] 09/10/2017 Depression, major, recurrent, in complete remis*07/23/2018 Hyperlipidemia, mixed [E78.2] 02/01/2019 Chronic cough [R05] 01/04/2020 Obesity, Class II, BMI 35-39.9 [E66.9] 02/29/2020 SOB (shortness of breath) [R06.02] 08/23/2020 Acute bronchitis with chronic obstructive pulmo*10/02/2020 Chest pressure [R07.89] 12/11/2020 Encounter Status:Closed by ASMITA MORALES on 12/11/20 [facility] XR Chest PA and Lateralon IMPRESSION: No acute radiographic abnormality. [employer]: JOHNIE Transcribe Date/Time: Jul 27 2020 12:52P Dictated by : ANA HUNTLEY MD This examination was interpreted and the report reviewed and electronically signed by: ANA HUNTLEY MD on Jul 27 2020 12:54PM [facility] DIVISION OF RADIOLOGY * * *Final Report* * * DATE OF EXAM: Jul 27 2020 12:45PM WOX 5291 - XR CHEST 2V FRONTAL/LAT / PROCEDURE REASON: Cough * * * * Physician Interpretation * * * * EXAMINATION: CHEST RADIOGRAPH (2 VIEW FRONTAL & LATERAL) CLINICAL HISTORY: Cough MQ: XC2_6 EXAM DATE/TIME: 07/27/2020 12:45 PM COMPARISON: 06/23/2019 RESULT: Lines, tubes, and devices: None. Lungs and pleura: No consolidation, pleural effusion or pneumothorax. Cardiomediastinal silhouette: Stable and within normal limits. Bones and soft tissues: No acute osseous abnormality. Degenerative changes are present in the thoracic spine. DIVISION OF RADIOLOGY Provider, [facility] - 07/27/2020 * * *Final Report* * * DATE OF EXAM: Jul 27 2020 12:45PM WOX 5291 - XR CHEST 2V FRONTAL/LAT / PROCEDURE REASON: Cough * * * * Physician Interpretation * * * * EXAMINATION: CHEST RADIOGRAPH (2 VIEW FRONTAL & LATERAL) CLINICAL HISTORY: Cough MQ: XC2_6 EXAM DATE/TIME: 07/27/2020 12:45 PM COMPARISON: 06/23/2019 RESULT: Lines, tubes, and devices: None. Lungs and pleura: No consolidation, pleural effusion or pneumothorax. Cardiomediastinal silhouette: Stable and within normal limits. Bones and soft tissues: No acute osseous abnormality. Degenerative changes are present in the thoracic spine. IMPRESSION IMPRESSION: No acute radiographic abnormality. [employer]: PSCB Transcribe Date/Time: Jul 27 2020 12:52P Dictated by : ANA HUNTLEY MD This examination was interpreted and the report reviewed and electronically signed by: NAA HUNTLEY MD on Jul 27 2020 12:54PM EST [facility] Radiology Study observation (narrative) Germaine Julian XR Chest PA and LateralOrder ed By: [facility] Provider on 07-27-2020 [facility] CBC + DIFFon 04-12-2020 Basophils (Bld) [#/Vol] 0.20 x10EE3/UL High 0.00 - 0 .10 [facility] Comment on above: Performed By: #### 2 68799 #### [place] [address] Basophils/100 WBC (Bld) 1.2 % Normal 0.0 - 2.0 [facility] Comment on above: Performed By: #### 2 86862 #### [facility],[address] [place] [address] CBC + DIFF Normal [facility] Comment on above: Result Comment: CBC- COMPLETE BLOOD COUNT Performed By: #### 2 53018 #### [place] [address] Eosinophils (Bld) [#/Vol] 0.10 x10EE3/UL Normal 0.00 - 0.50 [facility] Comment on above: Performed By: #### 2 35947 #### [facility],[address] [place], [place] [address] Eosinophils/100 WBC (Bld) 0.6 % Normal 0.0 - 7.0 [facility] Comment on above: Performed By: #### 2 59483 #### [place] [address] Erythrocyte distribution width (RBC) [Ratio] 13.5 % Normal 12.0 - 15.6 [facility] Comment on above: Performed By: #### 2 52944 #### [facility],[address] [place] [address] Hematocrit (Bld) [Volume fraction] 44.7 % Normal 34.0 - 46.0 [facility] Comment on above: Performed By: #### 2 58150 #### [place] [address] Hemoglobin (Bld) [Mass/Vol] 15.4 g/dL Normal 12.0 - 16.0 [facility] Comment on above: Performed By: #### 2 70389 #### [facility],[address] [place] [address] Lymphocytes (Bld) [#/Vol] 5.20 x10EE3/UL High 0.80 - 2.80 [facility] Comment on above: Performed By: #### 2 59687 #### [facility],[address] [place] [address] Lymphocytes/100 WBC (Bld) 29.0 % Normal 20.0 - 45.0 [facility] Comment on above: Performed By: #### 2 84931 #### [facility],[address] [place] [address] MANUAL DIFF N/A Normal [facility] Comment on above: Performed By: #### 2 24375 #### [facility],[address] [place] [address]41 MCH (RBC) [Entitic mass] 30 pg Normal 27 - 33 [facility] Comment on above: Performed By: #### 2 89256 #### [facility],[address] [place] [address]61 MCHC (RBC) [Mass/Vol] 34 X10 3 Normal 32 - 36 [facility] Comment on above: Performed By: #### 2 21285 #### [facility],[address] [place] [address] 22599 MCV (RBC) [Entitic vol] 88 fL Normal 80 - 99 [facility] Comment on above: Performed By: #### 2 62333 #### [facility],[address] [place] [address]35 Monocytes (Bld) [#/Vol] 0.90 x10EE3/UL Normal 0.20 - 1 .00 [facility] Comment on above: Performed By: #### 2 85684 #### [facility],[address] [place] [address]8360 MONOS % 5.2 % Normal 0.0 - 10.0 [facility] Comment on above: Performed By: #### 2 14384 #### [facility],[address] [place] [address] 58069 Morphology Gab (Bld) [Interp] N/A Normal [facility] Comment on above: Performed By: #### 2 48240 #### [facility],[address] [place] [address]144 Neutrophils (Bld) [#/Vol] 11.50 x10EE3/UL High 1.50 - 7.10 [facility] Comment on above: Performed By: #### 2 20990 #### [facility],[address] [place] [address] Neutrophils/100 WBC (Bld) 64.0 % Normal 46.0 - 76.0 [facility] Comment on above: Performed By: #### 2 01333 #### [address] [address] Platelet mean volume (Bld) [Entitic vol] 6.1 fL Low 6.6 - 10.5 [facility] Comment on above: Result Comment: AUTO MATED DIFFERENTIAL Performed By: #### 2 35900 #### [address] [address] Platelets (Bld) [#/Vol] 417 x10EE3/UL Normal 150 - 450 [facility] Comment on above: Performed By: #### 2 08995 #### [address] [address] RBC (Bld) [#/Vol] 5.07 x 10EE6/UL Normal 4.10 - 5.30 [facility] Comment on above: Performed By: #### 2 52743 #### [address] [address] WBC (Bld) [#/Vol] 17.9 x 10EE3/UL High 4.5 - 10.8 [facility] Comment on above: Performed By: #### 2 85265 #### [facility],[address] [place] [address] CHEST 1 VIEWon 04-12-2020 CHEST 1 VIEW [place] [address] Patient: IVET VALERO Phone#: : 1955 Age: 65 Gender: F Pt. Type: ER Account: [id number] Location: [facility] Ordering: TOSHIA ROMERO Exam Date: 04/12/2020/9:06 Family Phys: RICCI COLE Charge Code: [id number] Physician: Warrick Order #: [id number] DLP Dose#: PROCEDURE: X-RAY CHEST 1 VIEW COMPARISON: [facility], XR, CHEST PA/LAT, 09/29/2016, 18:37. INDICATIONS: Cough. FINDINGS: LUNGS: Normal. No significant pulmonary parenchymal abnormalities. Interval clearing of right lower thorax opacity VASCULATURE: Normal. Unremarkable pulmonary vasculature. CARDIAC: Normal. No cardiac silhouette abnormality or cardiomegaly. MEDIASTINUM: Normal. No visible mass or adenopathy. PLEURA: Normal. No effusion or pleural thickening. BONES: There are degenerative changes of the spine. OTHER: Negative. CONCLUSION: No acute disease. Dictated by: Maria Falcon MD on 04/12/2020 at 9:22 Approved by: Maria Falcon MD on 04/12/2020 at 9:22 Normal [facility] CMP with eGFRon 04-12-2020 Age - Reported 65 years Normal [facility] Comment on above: Performed By: #### 2 40779 #### [facility],[address] [place] [address]761 Albumin [Mass/Vol] 4.1 g/dL Normal 3.4 - 4.8 [facility] Comment on above: Performed By: #### 2 49455 #### [facility],[address] [place] [address]66 Albumin/Globulin [Mass ratio] 1.6 {ratio} Normal 0.9 - 1.6 [facility] Comment on above: Performed By: #### 2 04341 #### [facility],[address] [place] [address] 34495 ALK PHOS 54 U/L Normal 38 - 126 [facility] Comment on above: Performed By: #### 2 74709 #### [facility],[address] [place] [address]8578 ALT/SGPT 17 U/L Normal 8 - 35 [facility] Comment on above: Performed By: #### 2 01181 #### [facility],[address] [place] [address] 18300 Anion gap [Moles/Vol] 13 mmol/L Normal 10 - 20 [facility] Comment on above: Performed By: #### 2 79567 #### [facility],[address] [place] [address]1987 AST/SGOT 15 U/L Normal 13 - 39 [facility] Comment on above: Performed By: #### 2 87896 #### [facility],[address] [place] [address] B/C RATIO 20 ratio Normal 0 - 30 [facility] Comment on above: Performed By: #### 2 13502 #### [facility],[address] [place] [address] Bilirubin [Mass/Vol] 0.6 mg/dL Normal 0.0 - 1.5 [facility] Comment on above: Performed By: #### 2 06539 #### [facility],[address] [place] [address] 21891 Calcium [Mass/Vol] 9.1 mg/dL Normal 8.6 - 10.2 [facility] Comment on above: Performed By: #### 2 87896 #### [facility],[address] [place] [address] 20906 Chloride [Moles/Vol] 102 mmol/L Normal 98 - 107 [facility] Comment on above: Performed By: #### 2 00077 #### [facility],[address] [place] [address] 95641 CO2 [Moles/Vol] 25.9 mmol/L Normal 21.0 - 31.0 [facility] Comment on above: Performed By: #### 2 02923 #### [facility],[address] [place] [address] 79109 Creatinine [Mass/Vol] 0.7 mg/dL Normal 0.6 - 1.2 [facility] Comment on above: Performed By: #### 2 55125 #### [facility],[address] [place] [address]245 GFR/1.73 sq M predicted among non-blacks MDRD (S/P/Bld) [Vol rate/Area] Normal [facility] Comment on above: Result Comment: COMP REHENSIVE METABOLIC PANEL Performed By: #### 2 99467 #### [address] [address] GFR/1.73 sq M predicted among non-blacks MDRD (S/P/Bld) [Vol rate/Area] mL/min/{1.73_m2} Normal 60 - 999 [facility] Comment on above: Result Comment: ACCO RDING TO THE NATIONAL KIDNEY DISEASE EDUCATION PROGRAM(NKDE), A NORMAL eGFR IS A VALUE GREATER THAN OR EQUAL TO 60 ML/MIN/1.73 SQ METERS. CHRONIC KIDNEY DISEASE: <60mL/MIN/1.73 SQ METERS KIDNEY FAILURE: <15mL/MIN/1.73 SQ METERS THIS TEST SHOULD ONLY BE USED FOR PATIENTS 18 YEARS OF AGE AND OLDER. Performed By: #### 2 91772 #### [facility],[address] [place] [address] Globulin (S) [Mass/Vol] 2.6 g/dL Normal 1.5 - 3.8 [facility] Comment on above: Performed By: #### 2 47024 #### [facility],[address] [place] [address] Glucose [Mass/Vol] 168 mg/dL High 74 - 106 [facility] Comment on above: Performed By: #### 2 31756 #### [facility],[address] [place] [address]87 Potassium [Moles/Vol] 4.1 mmol/L Normal 3.5 - 5.1 [facility] Comment on above: Performed By: #### 2 74547 #### [address] [address] Protein [Mass/Vol] 6.7 g/dL Normal 6.4 - 8.3 [facility] Comment on above: Performed By: #### 2 76965 #### [address] [address] Sodium [Moles/Vol] 137 mmol/L Normal 136 - 145 [facility] Comment on above: Performed By: #### 2 86929 #### [address] [address] Urea nitrogen [Mass/Vol] 14 mg/dL Normal 6 - 20 [facility] Comment on above: Performed By: #### 2 61478 #### [address] [address] URINALYSISon 04-12-2020 Amorphous NONE Normal [facility] Comment on above: Performed By: #### 2 38092 #### [address] [address] Bacteria LM.HPF (Urine sed) [#/Area] NONE Normal [facility] Comment on above: Performed By: #### 2 73633 #### [address] [address] Bilirubin [Mass/Vol] Negative Normal NORMAL: NEGATIVE [facility] Comment on above: Performed By: #### 2 52980 #### [address] [address] Blood Negative Normal NORMAL: NEGATIVE [facility] Comment on above: Performed By: #### 2 54214 #### [facility],[address] [place] [address] Casts LM.LPF (Urine sed) [#/Area] NONE Normal [facility] Comment on above: Performed By: #### 2 24109 #### [facility],[address] [place] [address]152 Clarity (U) clear Normal NORMAL: CLEAR [facility] Comment on above: Performed By: #### 2 27474 #### [facility],[address] [place] [address] Color (U) p.yel Normal NORMAL: YELLOW [facility] Comment on above: Performed By: #### 2 70727 #### [facility],[address] [place] [address] Crystals LM Nom (Urine sed) NONE Normal [facility] Comment on above: Performed By: #### 2 21988 #### [facility],[address] [place] [address]327 Epi Cells NONE Normal [facility] Comment on above: Performed By: #### 2 02346 #### [facility],[address] [place] [address] 10435 Glucose [Mass/Vol] 50 Abnormal NORMAL: NORMAL [facility] Comment on above: Performed By: #### 2 93948 #### [facility],[address] [place] [address]77 Ketone Negative Normal NORMAL: NEGATIVE [facility] Comment on above: Performed By: #### 2 50398 #### [facility],[address] [place] [address] 23389 Microscopic SEE BELOW Normal [facility] Comment on above: Result Comment: MICR OSCOPIC Performed By: #### 2 22316 #### [facility],[address] [place] [address] Mucous NONE Normal [facility] Comment on above: Performed By: #### 2 12901 #### [facility],[address] [place] [address] Nitrite Ql (U) Negative Normal NORMAL: NEGATIVE [facility] Comment on above: Performed By: #### 2 61656 #### [facility],[address] [place] [address] pH (Bld) 6 Normal NORMAL: 5.0-8.0 [facility] Comment on above: Performed By: #### 2 01040 #### [facility],[address] [place] [address] Protein (U) [Mass/Vol] Negative Normal CHRISTINE L: NEGATIVE [facility] Comment on above: Performed By: #### 2 52959 #### [facility],[address] [place] [address] Rbc NONE Normal 0-3/hpf [facility] Comment on above: Performed By: #### 2 86702 #### [facility],[address] [place] [address] Sp Malone 1.010 Normal NORMAL: 1.010-1.030 [facility] Comment on above: Performed By: #### 2 67250 #### [facility],[address] [place] [address] Specimen type Nom (Spec) Void Normal [facility] Comment on above: Performed By: #### 2 47771 #### [facility],[address] [place] [address] Urobilinog NORM Normal NORMAL: NORMAL [facility] Comment on above: Performed By: #### 2 63309 #### [facility],[address] [place] [address] Wbc 1-5 Normal 0-5/hpf [facility] Comment on above: Performed By: #### 2 27713 #### [facility],[address] [place] [address] WBC (Bld) [#/Vol] 25 Abnormal NORMAL: NEGATIVE [facility] Comment on above: Performed By: #### 2 39484 #### [facility],[address] [place], [place] [address] Yeast LM Ql (Urine sed) 1+ Normal J [facility] Comment on above: Performed By: #### 2 62817 #### [facility],[address] [place], [place] [address] Culture, urine Bacteria identified Cx Nom (U) Escherichia coli [facility] Work Phone: Bacteria identified Cx Nom (U) Positive [facility] Work Phone: Laboratory - Microbiology an d Antimicrobial susceptibility Bacteria identified Cx Nom (Bld) No growth in 5 days. [facility] Work Phone: Vital Signs Date Time Vital Sign Value Performing Clinician Facility 05-15-2025 04:00-0400 Heart rate 89 /min Dr. Ricci Cole MD Work Phone: [facility] 05-15-2025 04:00-0400 Respiratory rate 18 /min Dr. Ricci Cole MD Work Phone: [facility] 05-15-2025 04:00-0400 SaO2% (BldA) [Mass fraction] 98 % Dr. Ricci Cole MD Work Phone: [facility] 05-15-2025 03:49-0400 Body temperature 98.2 [degF] Dr. Ricci Cole MD Work Phone: [facility] 05-15-2025 03:49-0400 Diastolic blood pressure 72 mm[Hg] Dr. Ricci Cole MD Work Phone: [facility] 05-15-2025 03:49-0400 Systolic blood pressure 173 mm[Hg] Dr. Ricci Cole MD Work Phone: [facility] 05-15-2025 00:25-0400 Body height 170.[address] Ricci Cole MD Work Phone: [facility] 05-15-2025 00:25-0400 Body mass index (BMI) [Ratio] 37.2 kg/m2 Dr. Ricci Cole MD Work Phone: [facility] 05-15-2025 00:25-0400 Body weight 107.[address] Ricci Cole MD Work Phone: [facility] 05-06-2025 09:08-0400 Diastolic blood pressure 76 mm[Hg] Smiley Suppan COURT MESSENGER.LINE THERAPIST Work Phone: [facility] 05-06-2025 09:08-0400 Systolic blood pressure 132 mm[Hg] Smiley Suppan COURT MESSENGER.LINE THERAPIST Work Phone: [facility] 05-06-2025 08:52-0400 Body mass index (BMI) [Ratio] 40.04 kg/m2 Smiley Suppan [address] MESSENGER.LINE THERAPIST Work Phone: [facility] 05-06-2025 08:52-0400 Body temperature 97.81 [degF] Smiley Suppan COURT MESSENGER.LINE THERAPIST Work Phone: [facility] 05-06-2025 08:52-0400 Body weight 102.[address] MESSENGER.LINE THERAPIST Work Phone: [facility] 05-06-2025 08:52-0400 Heart rate 103 /min Smiley Supp[address] MESSENGER.LINE THERAPIST Work Phone: [facility] 05-06-2025 08:52-0400 SaO2% (BldA) [Mass fraction] 98 % Smiley Suppan COURT MESSENGER.LINE THERAPIST Work Phone: [facility] 03-10-2025 10:45-0400 Body temperature 99 [degF] Smiley Suppan COURT MESSENGER.LINE THERAPIST Work Phone: [facility] 03-10-2025 10:45-0400 Diastolic blood pressure 78 mm[Hg] Smiley Suppan COURT MESSENGER.LINE THERAPIST Work Phone: [facility] 03-10-2025 10:45-0400 Heart rate 110 /min Smiley Supp[address] COURT MESSENGER.LINE THERAPIST Work Phone: [facility] 03-10-2025 10:45-0400 SaO2% (BldA) [Mass fraction] 95 % Smiley Suppan COURT MESSENGER.LINE THERAPIST Work Phone: [facility] 03-10-2025 10:45-0400 Systolic blood pressure 140 mm[Hg] Smiley Suppan COURT MESSENGER.LINE THERAPIST Work Phone: [facility] 03-01-2025 09:34-0400 Body height [address] MESSENGER.LINE THERAPIST Work Phone: [facility] 03-01-2025 09:34-0400 Body mass index (BMI) [Ratio] 39.87 kg/m2 Smiley Suppan COURT MESSENGER.LINE THERAPIST Work Phone: [facility] 03-01-2025 09:34-0400 Body temperature 98.49 [degF] Smiley Suppan COURT MESSENGER.LINE THERAPIST Work Phone: [facility] 03-01-2025 09:34-0400 Body weight 102.[address] MESSENGER.LINE THERAPIST Work Phone: [facility] 03-01-2025 09:34-0400 Diastolic blood pressure 68 mm[Hg] Smiley Suppan COURT MESSENGER.LINE THERAPIST Work Phone: [facility] 03-01-2025 09:34-0400 Heart rate 110 /min Smiley Supp[address] COURT MESSENGER.LINE THERAPIST Work Phone: [facility] 03-01-2025 09:34-0400 SaO2% (BldA) [Mass fraction] 96 % Smiley Suppan COURT MESSENGER.LINE THERAPIST Work Phone: [facility] 03-01-2025 09:34-0400 Systolic blood pressure 132 mm[Hg] Smiley Suppan COURT MESSENGER.LINE THERAPIST Work Phone: [facility] 07-26-2024 10:16-0500 Diastolic blood pressure 60 mm[Hg] Smiley Suppan COURT MESSENGER.LINE THERAPIST Work Phone: [facility] 07-26-2024 10:16-0500 Systolic blood pressure 128 mm[Hg] Smiley Suppan COURT MESSENGER.LINE THERAPIST Work Phone: [facility] 07-26-2024 09:45-0500 Body mass index (BMI) [Ratio] 35.56 kg/m2 Smiley Suppan COURT MESSENGER.LINE THERAPIST Work Phone: [facility] 07-26-2024 09:45-0500 Body temperature 98.8 [degF] Smiley Suppan COURT MESSENGER.LINE THERAPIST Work Phone: [facility] 07-26-2024 09:45-0500 Body weight [address] MESSENGER.LINE THERAPIST Work Phone: [facility] 07-26-2024 09:45-0500 Heart rate 102 /min Smiley Supp[address] COURT MESSENGER.LINE THERAPIST Work Phone: [facility] 07-26-2024 09:45-0500 Respiratory rate 20 /min Smiley Supp[address] MESSENGER.LINE THERAPIST Work Phone: [facility] 07-26-2024 09:45-0500 SaO2% (BldA) [Mass fraction] 97 % Smiley Suppan COURT MESSENGER.LINE THERAPIST Work Phone: [facility] 04-29-2024 14:40-0400 Diastolic blood pressure 50 mm[Hg] Smiley Suppan COURT MESSENGER.LINE THERAPIST Work Phone: [facility] 04-29-2024 14:40-0400 Systolic blood pressure 176 mm[Hg] Smiley Suppan COURT MESSENGER.LINE THERAPIST Work Phone: [facility] 04-29-2024 14:14-0400 Body mass index (BMI) [Ratio] 36.33 kg/m2 Smiley Suppan COURT MESSENGER.LINE THERAPIST Work Phone: [facility] 04-29-2024 14:14-0400 Body temperature 99.5 [degF] Smiley Suppan COURT MESSENGER.LINE THERAPIST Work Phone: [facility] 04-29-2024 14:14-0400 Body weight 105.[address] MESSENGER.LINE THERAPIST Work Phone: [facility] 04-29-2024 14:14-0400 Heart rate 110 /min Smiley Supp[address] COURT MESSENGER.LINE THERAPIST Work Phone: [facility] 04-29-2024 14:14-0400 SaO2% (BldA) [Mass fraction] 95 % Smiley Suppan COURT MESSENGER.LINE THERAPIST Work Phone: [facility] 03-23-2024 12:50-0400 Body mass index (BMI) [Ratio] 35.7 kg/m2 Smiley Suppan COURT MESSENGER.LINE THERAPIST Work Phone: [facility] 03-23-2024 12:50-0400 Body weight 103.[address] MESSENGER.LINE THERAPIST Work Phone: [facility] 03-23-2024 12:50-0400 Diastolic blood pressure 80 mm[Hg] Smiley Suppan COURT MESSENGER.LINE THERAPIST Work Phone: [facility] 03-23-2024 12:50-0400 Heart rate 115 /min Smiley Supp[address] MESSENGER.LINE THERAPIST Work Phone: [facility] 03-23-2024 12:50-0400 Respiratory rate 20 /min Smiley Supp[address] COURT MESSENGER.LINE THERAPIST Work Phone: [facility] 03-23-2024 12:50-0400 SaO2% (BldA) [Mass fraction] 96 % Smiley Suppan COURT MESSENGER.LINE THERAPIST Work Phone: [facility] 03-23-2024 12:50-0400 Systolic blood pressure 144 mm[Hg] Smiley Suppan COURT MESSENGER.LINE THERAPIST Work Phone: [facility] 08-06-2023 13:18-0500 Heart rate 82 /min Dr. Ricci Cole Work Phone: [facility] 08-06-2023 13:18-0500 Respiratory rate 17 /min Dr. Ricci Cole Work Phone: [facility] 08-06-2023 09:51-0500 Body temperature 97.8 [degF] Dr. Ricci Cole Work Phone: [facility] 08-06-2023 09:51-0500 Diastolic blood pressure 77 mm[Hg] Dr. Ricci Cole Work Phone: [facility] 08-06-2023 09:51-0500 SaO2% (BldA) [Mass fraction] 96 % Dr. Ricci Cole Work Phone: [facility] 08-06-2023 09:51-0500 Systolic blood pressure 141 mm[Hg] Dr. Ricci Cole Work Phone: [facility] 08-05-2023 13:05-0500 Body height 170.[address] Ricci Cole Work Phone: [facility] 08-05-2023 13:05-0500 Body weight 104.[address] Ricci Cole Work Phone: [facility] 08-04-2023 21:49-0500 Body mass index (BMI) [Ratio] 36.1 kg/m2 Dr. Ricci Cole Work Phone: [facility] 08-04-2023 18:00-0500 Body temperature 98.1 [degF] [facility] 08-04-2023 18:00-0500 Diastolic blood pressure 70 mm[Hg] [facility] 08-04-2023 18:00-0500 Heart rate 84 /min [facility] 08-04-2023 18:00-0500 Respiratory rate 14 /min [facility] 08-04-2023 18:00-0500 SaO2% (BldA) [Mass fraction] 95 % [facility] 08-04-2023 18:00-0500 Systolic blood pressure 150 mm[Hg] [facility] 08-04-2023 12:53-0500 Body height 170.18 cm [facility] 08-04-2023 12:53-0500 Body mass index (BMI) [Ratio] 36.1 kg/m2 [facility] 08-04-2023 12:53-0500 Body weight 104.5 kg [facility] 07-09-2023 13:34-0500 Body temperature 98.49 [degF] Sophia Fan APRN.LINE THERAPIST Work Phone: [facility] 07-09-2023 13:34-0500 Body weight 102.69 kg Sophia Fan APRN.LINE THERAPIST Work Phone: [facility] 07-09-2023 13:34-0500 Diastolic blood pressure 66 mm[Hg] Sophia Fan APRN.LINE THERAPIST Work Phone: [facility] 07-09-2023 13:34-0500 Heart rate 104 /min Sophia Fan APRN.LINE THERAPIST Work Phone: [facility] 07-09-2023 13:34-0500 Respiratory rate 21 /min Sophia Fan COURT MESSENGER.LINE THERAPIST Work Phone: [facility] 07-09-2023 13:34-0500 SaO2% (BldA) [Mass fraction] 99 % Sophia Fan APRN.LINE THERAPIST Work Phone: [facility] 07-09-2023 13:34-0500 Systolic blood pressure 132 mm[Hg] Sophia Fan COURT MESSENGER.LINE THERAPIST Work Phone: [facility] 04-15-2023 10:43-0400 Body weight 99.[address] MESSENGER.LINE THERAPIST Work Phone: [facility] 04-15-2023 10:43-0400 Diastolic blood pressure 78 mm[Hg] Nanci Haagen COURT MESSENGER.LINE THERAPIST Work Phone: [facility] 04-15-2023 10:43-0400 Heart rate 104 /min Nanci Ha[address] COURT MESSENGER.LINE THERAPIST Work Phone: [facility] 04-15-2023 10:43-0400 Respiratory rate 16 /min Nanci [address] COURT MESSENGER.LINE THERAPIST Work Phone: [facility] 04-15-2023 10:43-0400 SaO2% (BldA) [Mass fraction] 94 % Nanci Haagen COURT MESSENGER.LINE THERAPIST Work Phone: [facility] 04-15-2023 10:43-0400 Systolic blood pressure 138 mm[Hg] Nanci Huber APRN.CNP Work Phone: [facility] 11-14-2022 13:05-0400 Respiratory rate 18 /min [facility] 11-14-2022 11:06-0400 Body height 170.18 cm [facility] 11-14-2022 11:06-0400 Body mass index (BMI) [Ratio] 36 kg/m2 [facility] 11-14-2022 11:06-0400 Body temperature 96.3 [degF] [facility] 11-14-2022 11:06-0400 Body weight 104.32 kg [facility] 11-14-2022 11:06-0400 Diastolic blood pressure 98 mm[Hg] [facility] 11-14-2022 11:06-0400 Heart rate 103 /min [facility] 11-14-2022 11:06-0400 SaO2% (BldA) [Mass fraction] 98 % [facility] 11-14-2022 11:06-0400 Systolic blood pressure 172 mm[Hg] [facility] 06-12-2022 10:41-0400 Body temperature 98.8 [degF] Dr. Ricci Cole Work Phone: [facility] Work Phone: 06-12-2022 10:41-0400 Diastolic blood pressure 86 mm[Hg] Dr. Ricci Cole Work Phone: [facility] Work Phone: 06-12-2022 10:41-0400 Heart rate 82 /min Dr. Ricci Cole Work Phone: [facility] Work Phone: 06-12-2022 10:41-0400 Respiratory rate 18 /min Dr. Ricci Cole Work Phone: [facility] Work Phone: 06-12-2022 10:41-0400 SaO2% (BldA) [Mass fraction] 97 % Dr. Ricci Cole Work Phone: [facility] Work Phone: 06-12-2022 10:41-0400 Systolic blood pressure 143 mm[Hg] Dr. Ricci Cole Work Phone: [facility] Work Phone: 06-12-2022 09:19-0400 Body height 170.[address] Ricci Cole Work Phone: [facility] Work Phone: 06-12-2022 09:19-0400 Body mass index (BMI) [Ratio] 36.9 kg/m2 Dr. Ricci Cole Work Phone: [facility] Work Phone: 06-12-2022 09:19-0400 Body weight [address] Ricci Cole Work Phone: [facility] Work Phone: 05-10-2022 12:10-0400 Diastolic blood pressure 80 mm[Hg] Dr. Ricci Cole Work Phone: [facility] Work Phone: 05-10-2022 12:10-0400 Heart rate 79 /min Dr. Ricci Cole Work Phone: [facility] Work Phone: 05-10-2022 12:10-0400 SaO2% (BldA) [Mass fraction] 95 % Dr. Ricci Cole Work Phone: [facility] Work Phone: 05-10-2022 12:10-0400 Systolic blood pressure 157 mm[Hg] Dr. Ricci Cole Work Phone: [facility] Work Phone: 05-10-2022 11:09-0400 Body height 170.[address] Ricci Cole Work Phone: [facility] Work Phone: 05-10-2022 11:09-0400 Body temperature 97.1 [degF] Dr. Ricci Cole Work Phone: [facility] Work Phone: 05-10-2022 11:09-0400 Respiratory rate 16 /min Dr. Ricci Cole Work Phone: [facility] Work Phone: 05-09-2022 11:49-0400 Diastolic blood pressure 80 mm[Hg] Dr. Ricci Cole Work Phone: [facility] Work Phone: 05-09-2022 11:49-0400 Heart rate 84 /min Dr. Ricci Cole Work Phone: [facility] Work Phone: 05-09-2022 11:49-0400 Systolic blood pressure 149 mm[Hg] Dr. Ricci Cole Work Phone: [facility] Work Phone: 05-09-2022 10:58-0400 Body height 170.[address] Ricci Cole Work Phone: [facility] Work Phone: 05-09-2022 10:58-0400 Body temperature 97.1 [degF] Dr. Ricci Cole Work Phone: [facility] Work Phone: 05-09-2022 10:58-0400 Respiratory rate 16 /min Dr. Ricci Cole Work Phone: [facility] Work Phone: 05-09-2022 10:58-0400 SaO2% (BldA) [Mass fraction] 96 % Dr. Ricci Cole Work Phone: [facility] Work Phone: 05-08-2022 14:07-0400 Body temperature 97.1 [degF] Dr. Ricci Cole Work Phone: [facility] Work Phone: 05-08-2022 14:07-0400 Diastolic blood pressure 72 mm[Hg] Dr. Ricci Cole Work Phone: [facility] Work Phone: 05-08-2022 14:07-0400 Heart rate 80 /min Dr. Ricci Cole Work Phone: [facility] Work Phone: 05-08-2022 14:07-0400 Respiratory rate 16 /min Dr. Ricci Cole Work Phone: [facility] Work Phone: 05-08-2022 14:07-0400 SaO2% (BldA) [Mass fraction] 95 % Dr. Ricci Cole Work Phone: [facility] Work Phone: 05-08-2022 14:07-0400 Systolic blood pressure 167 mm[Hg] Dr. Ricci Cole Work Phone: [facility] Work Phone: 05-08-2022 13:02-0400 Body mass index (BMI) [Ratio] 49.4 kg/m2 Dr. Ricci Cole Work Phone: [facility] Work Phone: 05-08-2022 13:02-0400 Body weight 145.[address] Ricci Cole Work Phone: [facility] Work Phone: 05-07-2022 12:02-0400 Diastolic blood pressure 75 mm[Hg] Dr. Ricci Cole Work Phone: [facility] Work Phone: 05-07-2022 12:02-0400 Heart rate 78 /min Dr. Ricci Cole Work Phone: [facility] Work Phone: 05-07-2022 12:02-0400 Systolic blood pressure 158 mm[Hg] Dr. Ricci Cole Work Phone: [facility] Work Phone: 05-07-2022 10:55-0400 Body mass index (BMI) [Ratio] 49.4 kg/m2 Dr. Ricci Cole Work Phone: [facility] Work Phone: 05-07-2022 10:55-0400 Body temperature 97.3 [degF] Dr. Ricci Cole Work Phone: [facility] Work Phone: 05-07-2022 10:55-0400 Body weight 145.[address] Ricci Cole Work Phone: [facility] Work Phone: 05-07-2022 10:55-0400 Respiratory rate 16 /min Dr. Ricci Cole Work Phone: [facility] Work Phone: 05-07-2022 10:55-0400 SaO2% (BldA) [Mass fraction] 96 % Dr. Ricci Cole Work Phone: [facility] Work Phone: 05-06-2022 12:36-0400 Body temperature 97.3 [degF] Dr. Ricci Cole Work Phone: [facility] Work Phone: 05-06-2022 12:36-0400 Diastolic blood pressure 85 mm[Hg] Dr. Ricci Cole Work Phone: [facility] Work Phone: 05-06-2022 12:36-0400 Heart rate 81 /min Dr. Ricci Cole Work Phone: [facility] Work Phone: 05-06-2022 12:36-0400 Respiratory rate 16 /min Dr. Ricci Cole Work Phone: [facility] Work Phone: 05-06-2022 12:36-0400 SaO2% (BldA) [Mass fraction] 95 % Dr. Ricci Cole Work Phone: [facility] Work Phone: 05-06-2022 12:36-0400 Systolic blood pressure 146 mm[Hg] Dr. Ricci Cole Work Phone: [facility] Work Phone: 05-06-2022 11:01-0400 Body mass index (BMI) [Ratio] 21.9 kg/m2 Dr. Ricci Cole Work Phone: [facility] Work Phone: 05-06-2022 11:01-0400 Body weight 63.[address] Ricci Cole Work Phone: [facility] Work Phone: 05-05-2022 10:58-0400 Body temperature 98.7 [degF] Dr. Ricci Cole Work Phone: [facility] Work Phone: 05-05-2022 10:58-0400 Diastolic blood pressure 70 mm[Hg] Dr. Ricci Cole Work Phone: [facility] Work Phone: 05-05-2022 10:58-0400 Heart rate 80 /min Dr. Ricci Cole Work Phone: [facility] Work Phone: 05-05-2022 10:58-0400 Respiratory rate 18 /min Dr. Ricci Cole Work Phone: [facility] Work Phone: 05-05-2022 10:58-0400 SaO2% (BldA) [Mass fraction] 98 % Dr. Ricci Cole Work Phone: [facility] Work Phone: 05-05-2022 10:58-0400 Systolic blood pressure 143 mm[Hg] Dr. Ricci Cole Work Phone: [facility] Work Phone: 05-04-2022 11:33-0400 Body temperature 99.3 [degF] Dr. Ricci Cole Work Phone: [facility] Work Phone: 05-04-2022 11:33-0400 Diastolic blood pressure 86 mm[Hg] Dr. Ricci Cole Work Phone: [facility] Work Phone: 05-04-2022 11:33-0400 Heart rate 71 /min Dr. Ricci Cole Work Phone: [facility] Work Phone: 05-04-2022 11:33-0400 Respiratory rate 18 /min Dr. Ricci Cole Work Phone: [facility] Work Phone: 05-04-2022 11:33-0400 SaO2% (BldA) [Mass fraction] 96 % Dr. Ricci Cole Work Phone: [facility] Work Phone: 05-04-2022 11:33-0400 Systolic blood pressure 132 mm[Hg] Dr. Ricci Cole Work Phone: [facility] Work Phone: 05-03-2022 14:30-0400 Body temperature 98 [degF] Dr. Ricci Cole Work Phone: [facility] Work Phone: 05-03-2022 14:30-0400 Diastolic blood pressure 87 mm[Hg] Dr. Ricci Cole Work Phone: [facility] Work Phone: 05-03-2022 14:30-0400 Heart rate 82 /min Dr. Ricci Cole Work Phone: [facility] Work Phone: 05-03-2022 14:30-0400 Respiratory rate 18 /min Dr. Ricci Cole Work Phone: [facility] Work Phone: 05-03-2022 14:30-0400 SaO2% (BldA) [Mass fraction] 95 % Dr. Ricci Cole Work Phone: [facility] Work Phone: 05-03-2022 14:30-0400 Systolic blood pressure 159 mm[Hg] Dr. Ricci Cole Work Phone: [facility] Work Phone: 05-03-2022 10:26-0400 Body height [address] Ricci Cole Work Phone: [facility] Work Phone: 05-03-2022 10:26-0400 Body weight 108.[address] Ricci Cole Work Phone: [facility] Work Phone: 05-01-2022 01:25-0400 Body mass index (BMI) [Ratio] 37.4 kg/m2 Dr. Ricci Cole Work Phone: [facility] Work Phone: 05-01-2022 00:17-0400 Body temperature 98.4 [degF] Dr. Ricci Cole Work Phone: [facility] Work Phone: 05-01-2022 00:17-0400 Diastolic blood pressure 73 mm[Hg] Dr. Ricci Cole Work Phone: [facility] Work Phone: 05-01-2022 00:17-0400 Heart rate 94 /min Dr. Ricci Cole Work Phone: [facility] Work Phone: 05-01-2022 00:17-0400 Respiratory rate 20 /min Dr. Ricci Cole Work Phone: [facility] Work Phone: 05-01-2022 00:17-0400 SaO2% (BldA) [Mass fraction] 94 % Dr. Ricci Cole Work Phone: [facility] Work Phone: 05-01-2022 00:17-0400 Systolic blood pressure 143 mm[Hg] Dr. Ricci Cole Work Phone: [facility] Work Phone: 04-30-2022 21:54-0400 Body height 170.[address] Ricci Cole Work Phone: [facility] Work Phone: 04-30-2022 21:54-0400 Body mass index (BMI) [Ratio] 38.2 kg/m2 Dr. Ricci Cole Work Phone: [facility] Work Phone: 04-30-2022 21:54-0400 Body weight 110.[address] Ricci Coel Work Phone: [facility] Work Phone: 01-29-2022 11:15-0400 Body weight 108.41 kg NA Holland PA-C Work Phone: [facility] 01-29-2022 11:15-0400 Diastolic blood pressure 82 mm[Hg] NA Holland PA-C Work Phone: [facility] 01-29-2022 11:15-0400 Heart rate 90 /min NA Holland PA-C Work Phone: [facility] 01-29-2022 11:15-0400 Respiratory rate 20 /min NA Holland PA-C Work Phone: [facility] 01-29-2022 11:15-0400 SaO2% (BldA) [Mass fraction] 98 % NA Holland PA-C Work Phone: [facility] 01-29-2022 11:15-0400 Systolic blood pressure 128 mm[Hg] NA Holland PA-C Work Phone: [facility] 01-22-2022 16:24-0400 Body temperature 97.8 [degF] Dr. Ricci Cole Work Phone: [facility] Work Phone: 01-22-2022 16:24-0400 Diastolic blood pressure 57 mm[Hg] Dr. Ricci Cole Work Phone: [facility] Work Phone: 01-22-2022 16:24-0400 Heart rate 62 /min Dr. Ricci Cole Work Phone: [facility] Work Phone: 01-22-2022 16:24-0400 Inhaled oxygen flow rate 2 L/min Dr. Ricci Cole Work Phone: [facility] Work Phone: 01-22-2022 16:24-0400 Respiratory rate 16 /min Dr. Ricci Cole Work Phone: [facility] Work Phone: 01-22-2022 16:24-0400 SaO2% (BldA) [Mass fraction] 97 % Dr. Ricci Cole Work Phone: [facility] Work Phone: 01-22-2022 16:24-0400 Systolic blood pressure 140 mm[Hg] Dr. Ricci Cole Work Phone: [facility] Work Phone: 01-22-2022 16:04-0400 Body temperature 98.2 [degF] Dr. Ricci Cole Work Phone: [facility] Work Phone: 01-22-2022 16:04-0400 Diastolic blood pressure 72 mm[Hg] Dr. Ricci Cole Work Phone: [facility] Work Phone: 01-22-2022 16:04-0400 Heart rate 79 /min Dr. Ricci Cole Work Phone: [facility] Work Phone: 01-22-2022 16:04-0400 Respiratory rate 17 /min Dr. Ricci Cole Work Phone: [facility] Work Phone: 01-22-2022 16:04-0400 SaO2% (BldA) [Mass fraction] 92 % Dr. Ricci Cole Work Phone: [facility] Work Phone: 01-22-2022 16:04-0400 Systolic blood pressure 156 mm[Hg] Dr. Ricci Cole Work Phone: [facility] Work Phone: 01-17-2022 18:38-0400 Body height 170.[address] Ricci Cole Work Phone: [facility] Work Phone: 01-17-2022 18:38-0400 Body mass index (BMI) [Ratio] 38.9 kg/m2 Dr. Ricci Cole Work Phone: [facility] Work Phone: 01-17-2022 18:38-0400 Body weight 112.[address] Ricci Cole Work Phone: [facility] Work Phone: 01-17-2022 16:43-0400 Diastolic blood pressure 70 mm[Hg] Dr. Ricci Cole Work Phone: [facility] Work Phone: 01-17-2022 16:43-0400 Systolic blood pressure 146 mm[Hg] Dr. Ricci Cole Work Phone: [facility] Work Phone: 01-17-2022 15:00-0400 Body mass index (BMI) [Ratio] 38 kg/m2 Dr. Ricci Cole Work Phone: [facility] Work Phone: 01-17-2022 15:00-0400 Body temperature 98.2 [degF] Dr. Ricci Cole Work Phone: [facility] Work Phone: 01-17-2022 15:00-0400 Body weight 109.[address] Ricci Cole Work Phone: [facility] Work Phone: 01-17-2022 15:00-0400 Heart rate 112 /min Dr. Ricci Cole Work Phone: [facility] Work Phone: 01-17-2022 15:00-0400 Respiratory rate 18 /min Dr. Ricci Cole Work Phone: [facility] Work Phone: 01-17-2022 15:00-0400 SaO2% (BldA) [Mass fraction] 95 % Dr. Ricci Cole Work Phone: [facility] Work Phone: 01-05-2022 10:50-0400 Diastolic blood pressure 80 mm[Hg] Ricci Cole MD Work Phone: [facility] 01-05-2022 10:50-0400 Systolic blood pressure 150 mm[Hg] Ricci Cole MD Work Phone: [facility] 01-05-2022 10:11-0400 Body temperature 98.1 [degF] Ricci Cole MD Work Phone: [facility] 01-05-2022 10:11-0400 Body weight 107.96 kg Ricci Cole MD Work Phone: [facility] 01-05-2022 10:11-0400 Heart rate 96 /min Ricci Cole MD Work Phone: [facility] 01-02-2022 11:41-0400 Body temperature 98.4 [degF] [facility] Work Phone: 01-02-2022 11:41-0400 Diastolic blood pressure 92 mm[Hg] [facility] Work Phone: 01-02-2022 11:41-0400 Heart rate 99 /min [facility] Work Phone: 01-02-2022 11:41-0400 Respiratory rate 22 /min [facility] Work Phone: 01-02-2022 11:41-0400 SaO2% (BldA) [Mass fraction] 96 % [facility] Work Phone: 01-02-2022 11:41-0400 Systolic blood pressure 142 mm[Hg] [facility] Work Phone: 01-02-2022 11:16-0400 Body height 167.64 cm [facility] Work Phone: 01-02-2022 11:16-0400 Body mass index (BMI) [Ratio] 37.9 kg/m2 [facility] Work Phone: 01-02-2022 11:16-0400 Body weight 106.59 kg [facility] Work Phone: 12-18-2021 10:15-0400 Body temperature 98.49 [degF] NA Holland PA-C Work Phone: [facility] 12-18-2021 10:15-0400 Body weight 107.96 kg NA Holland PA-C Work Phone: [facility] 12-18-2021 10:15-0400 Diastolic blood pressure 78 mm[Hg] NA Holland PA-C Work Phone: [facility] 12-18-2021 10:15-0400 Heart rate 103 /min NA Holland PA-C Work Phone: [facility] 12-18-2021 10:15-0400 Respiratory rate 24 /min NA Holland PA-C Work Phone: [facility] 12-18-2021 10:15-0400 SaO2% (BldA) [Mass fraction] 97 % NA Holland PA-C Work Phone: [facility] 12-18-2021 10:15-0400 Systolic blood pressure 160 mm[Hg] NA Holland PA-C Work Phone: [facility] 11-22-2021 13:54-0400 Diastolic blood pressure 98 mm[Hg] Joyce Perry PA-C Work Phone: [facility] 11-22-2021 13:54-0400 Systolic blood pressure 168 mm[Hg] Joyce Perry PA-C Work Phone: [facility] 11-22-2021 13:36-0400 Body weight 108.41 kg Joyce Perry PA-C Work Phone: [facility] 11-22-2021 13:36-0400 Heart rate 101 /min Joyce Perry PA-C Work Phone: [facility] 11-22-2021 13:36-0400 SaO2% (BldA) [Mass fraction] 95 % Joyce Perry PA-C Work Phone: [facility] Encounters Encounter Date Encounter Type Care Provider Facility Start: 05-15-2025 End: 05-15-2025 Emergency department patient visit Bhavinkamran Quinn DO -Emergency Department Work Phone: Start: 05-10-2025 End: 05-10-[address] MESSENGER.LINE THERAPIST Work Phone: [facility] [place] Comment on above: Refill Request Insurance PA Start: 05-06-2025 End: 05-06-2025 Office outpatient visit 25 minutes [address] MESSENGER.LINE THERAPIST Work Phone: [facility] [place] Comment on above: Gastroenteritis (Josiane aurelia Dx); Primary hypertension; Tobacco use disorder; Uncontrolled type 2 diabetes mellitus with hyperglycemia (HCC); Vitamin B12 deficiency; Vitamin D deficiency Start: 05-06-2025 End: 05-06-2025 ambulatory SMILEY A SUPPAN Facility:[facility] Start: 2025 End: 2025 Telephone encounter Smiley A Suppan COURT MESSENGER.LINE THERAPIST Work Phone: [facility] [place] Comment on above: Patient Question Start: 04-04-2025 End: 04-04-2025 Refill Ricci Cole MD Work Phone: [facility] [place] Comment on above: Refill Request Start: 03-29-2025 End: 03-29-2025 ambulatory RICCI COLE Facility:[facility] Start: 03-24-2025 End: 03-24-2025 Telephone encounter Ricci Cole MD Work Phone: [facility] Comment on above: Incontinent supplies denied request Start: 03-10-2025 End: 03-10-2025 Office outpatient visit 15 minutes [address] MESSENGER.LINE THERAPIST Work Phone: [facility] Comment on above: Acute bronchitis, un specified organism (Primary Dx); Recurrent UTI (urinary tract infection) Start: 03-10-2025 End: 03-10-2025 ambulatory SMILEY A SUPPAN Facility:[facility] Start: 03-09-2025 End: 03-09-2025 Telephone encounter Ricci Cole MD Work Phone: [facility] Comment on above: Medication Request; Patient Update Start: 03-08-2025 End: 03-08-2025 Refill Ricci Cole MD Work Phone: [facility] Comment on above: Refill Request Start: 03-03-2025 End: 03-04-[address] MESSENGER.LINE THERAPIST Work Phone: [facility] Comment on above: Refill Request Results Start: 03-01-2025 End: 03-01-2025 Transitional care manage srvc 14 day discharge Smiley A Suppan COURT MESSENGER.LINE THERAPIST Work Phone: [facility] Comment on above: Dysuria (Primary Dx) ; Fibromyalgia; Primary hypertension; Mixed stress and urge urinary incontinence; Tobacco use disorder; Uncontrolled type 2 diabetes mellitus with hyperglycemia (HCC); Hyperlipidemia, mixed; Chronic bronchitis, unspecified chronic bronchitis type (HCC); Obesity, Class II, BMI 35-39.9; Recurrent UTI (urinary tract infection); Type 2 diabetes mellitus without complication, without long-term current use of insulin (HCC); Vitamin D deficiency Start: 03-01-2025 End: 03-01-2025 ambulatory SMILEY A SUPPAN Facility:[facility] Start: 02-22-2025 Non-patient / Non-visit Dr. Edgar Oropeza MD -[facility] Work Phone: Start: 02-15-2025 End: 03-18-2025 ambulatory Ricci Cole MD Work Phone: [facility] [place] Start: 01-25-2025 End: 01-25-2025 Telephone encounter Ricci Cole MD Work Phone: [facility] [place] Comment on above: requesting medicatio n that is Start: 01-03-2025 End: 01-03-2025 ambulatory Lou Osman MA [facility] [place] Start: 01-03-2025 End: 01-03-2025 Patient encounter procedure Lou Osman MA [facility] [place] Comment on above: Population Health Na vigation Outreach ( [facility] Start: 12-24-2024 End: 12-24-2024 Refill Ricci Cole MD Work Phone: [facility] [place] Comment on above: Refill Request Start: 12-23-2024 End: 12-28-2024 Telephone encounter Ricci Cole MD Work Phone: [facility] [place] Comment on above: Orders (Incontinence supplies) Start: 11-10-2024 End: 11-10-2024 ambulatory Ricci Cole MD Work Phone: [facility] [place] Comment on above: UTI; URI Start: 10-19-2024 End: 10-19-2024 Refill Ricci Cole MD Work Phone: [facility] [place] Comment on above: Refill Request Start: 10-05-2024 End: 10-05-2024 Refill Ricci Cole MD Work Phone: [facility] [place] Comment on above: Refill Request Start: 09-22-2024 End: 09-22-2024 Refill Ricci Cole MD Work Phone: [facility] [place] Comment on above: Refill Request Start: 07-29-2024 End: 07-29-2024 Telephone encounter Ricci Cole MD Work Phone: [facility] [place] Comment on above: Medication Problem ( lost RX) Start: 07-26-2024 End: 07-26-2024 Office outpatient visit 25 minutes Smiley Melo APRN.CNP Work Phone: [facility] [place] Comment on above: Recurrent UTI (urina ry tract infection) (Primary Dx); Fibromyalgia; Type 2 diabetes mellitus without complication, without long-term current use of insulin (HCC); Chronic nausea; Migraine without aura and without status migrainosus, not intractable; Encounter for screening for lung cancer; Screening for osteoporosis; Asymptomatic menopause; Screening for colon cancer; Uncontrolled type 2 diabetes mellitus with hyperglycemia (HCC); Encounter for immunization Start: 07-26-2024 End: 07-26-2024 Refill Ricci Cole MD Work Phone: [facility] [place] Comment on above: Refill Request Start: 07-19-2024 End: 07-19-2024 ambulatory Herson Ashford RN Work Phone: [facility] Comment on above: community monitoring outreach (CDM-Telephonic outreach) Start: 07-16-2024 End: 07-16-2024 ambulatory Herson Ashford RN Work Phone: [facility] Comment on above: community monitoring outreach (CDM-Telephonic outreach) Start: 07-14-2024 End: 07-14-2024 ambulatory Herson Ashford RN Work Phone: [facility] Comment on above: community monitoring outreach (CDM-Telephonic outreach) Start: 06-16-2024 End: 06-16-2024 ambulatory Herson Ashford RN Work Phone: [facility] Comment on above: community monitoring outreach (CDM-Telephonic outreach) Start: 06-10-2024 End: 06-10-2024 ambulatory Herson Ashford RN Work Phone: [facility] Comment on above: community monitoring outreach (CDM-Telephonic outreach) Start: 06-09-2024 End: 06-09-2024 Refill Ricci Cole MD Work Phone: [facility] [place] Comment on above: Refill Request Start: 06-08-2024 End: 06-08-2024 ambulatory Herson Ashford RN Work Phone: [facility] Comment on above: community monitoring outreach (CDM-Telephonic outreach) Start: 06-07-2024 End: 06-07-2024 ambulatory Herson Ashford RN Work Phone: [facility] Comment on above: community monitoring outreach (CDM-Telephonic outreach) Start: 05-13-2024 End: 05-13-2024 Telephone encounter Smiley Melo APRN.LINE THERAPIST Work Phone: [facility] [place] Start: 05-11-2024 End: 05-12-2024 Telephone encounter Smiley Melo APRN.LINE THERAPIST Work Phone: [facility] [place] Comment on above: Results; Orders Start: 05-10-2024 End: 05-10-2024 Refill Ricci Cole MD Work Phone: [facility] [place] Comment on above: Refill Request Start: 05-05-2024 End: 05-05-2024 ambulatory Herson Ashford RN Work Phone: [facility] Comment on above: community monitoring outreach (CDM-Telephonic outreach) Start: 05-04-2024 End: 05-04-2024 ambulatory Herson Ashford RN Work Phone: [facility] Comment on above: community monitoring outreach (CDM-Telephonic outreach) Start: 05-03-2024 End: 05-03-2024 Telephone encounter Smiley Melo APRN.LINE THERAPIST Work Phone: [facility] [place] Start: 04-29-2024 End: 04-29-2024 Office outpatient visit 25 minutes Smiley Melo APRN.LINE THERAPIST Work Phone: [facility] [place] Comment on above: Recurrent UTI (urina ry tract infection) (Primary Dx); Chronic nausea; Fibromyalgia; Primary hypertension; Migraine with aura and without status migrainosus, not intractable; Stress incontinence; 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 Start: 04-23-2024 End: 04-23-2024 Refill Ricci Cole MD Work Phone: [facility] [place] Comment on above: Refill Request Start: 04-22-2024 End: 04-29-2024 Telephone encounter Ricci Cole MD Work Phone: [facility] [place] Comment on above: Incontinence Supplie s Start: 04-20-2024 End: 04-20-2024 Refill Ricci Cole MD Work Phone: [facility] [place] Comment on above: Refill Request Start: 04-12-2024 End: 04-12-2024 Refill Ricci Cole MD Work Phone: [facility] [place] Comment on above: Refill Request Start: 04-06-2024 ambulatory Herson Ashford RN Work Phone: [facility] Comment on above: community monitoring outreach (CDM-Telephonic outreach) Start: 04-02-2024 Refill Ricci Cole MD Work Phone: [facility] [place] Comment on above: Refill Request community monitoring outreach (CDM-Telephonic outreach) Start: 03-25-2024 Telephone encounter Smiley Melo COURT MESSENGER.LINE THERAPIST Work Phone: [facility] [place] Comment on above: Results Start: 03-24-2024 Refill Ricci Cole MD Work Phone: [facility] [place] Comment on above: Refill Request Start: 03-23-2024 End: 03-23-2024 Office outpatient visit [address] MESSENGER.LINE THERAPIST Work Phone: [facility] [place] Comment on above: Dysuria (Primary Dx) ; Cutaneous candidiasis; Tinea corporis Start: 03-22-2024 End: 03-22-2024 ambulatory Nurse Intm/Famp Triage [facility] Work Phone: Nurse Phone Triage Comment on above: urinary symptoms Start: 03-17-2024 ambulatory Ricci Cole MD Work Phone: Internal [facility] Start: 03-16-2024 Refill Ricci Cole MD Work Phone: [facility] Comment on above: Refill Request Start: 03-08-2024 Refill Ricci Cole MD Work Phone: [facility] [place] Comment on above: Refill Request Start: 03-05-2024 ambulatory Herson Ashford RN Work Phone: [facility] Comment on above: community monitoring outreach (CDM-Telephonic outreach) Start: 02-20-2024 Refill Ricci Cole MD Work Phone: [facility] [place] Comment on above: Refill Request Start: 02-05-2024 ambulatory Herson Ashford RN Work Phone: [facility] Comment on above: community monitoring outreach (CDM-Telephonic outreach) Start: 02-04-2024 Refill Ricci Cole MD Work Phone: [facility] [place] Comment on above: Refill Request community monitoring outreach (CDM-Telephonic outreach) Start: 01-30-2024 ambulatory Herson Ashford RN Work Phone: [facility] Comment on above: community monitoring outreach (CDM-Telephonic outreach) Start: 01-05-2024 Refill Ricci Cole MD Work Phone: [facility] [place] Comment on above: Refill Request Start: 12-31-2023 ambulatory Herson Ashford RN Work Phone: [facility] Comment on above: community monitoring outreach (CDM-Telephonic outreach) Start: 12-29-2023 ambulatory Marguerite Ortiz RN [facility] Comment on above: UTI Start: 12-11-2023 Refill Ricci Cole MD Work Phone: [facility] [place] Comment on above: Refill Request Start: 12-02-2023 ambulatory Herson Ashford RN Work Phone: [facility] Comment on above: community monitoring outreach (CDM-Telephonic outreach) Start: 11-25-2023 Refill Ricci Cole MD Work Phone: [facility] Comment on above: Refill Request Start: 10-29-2023 ambulatory Herson Ashford RN Work Phone: [facility] Comment on above: community monitoring outreach (CDM-Telephonic outreach) Start: 10-10-2023 Refill Ricci Cole MD Work Phone: [facility] Comment on above: Refill Request Start: 09-29-2023 ambulatory Herson Ashford RN Work Phone: [facility] Comment on above: community monitoring outreach (CDM-Telephonic outreach) Start: 09-26-2023 Refill Ricci Cole MD Work Phone: [facility] Comment on above: Refill Request Start: 09-04-2023 End: 09-04-2023 Subsequent hospital visit by physician [facility] Work Phone: Radiology Comment on above: Subacute cough [R05. 2] Start: 08-08-2023 Refill Ricci Cole MD Work Phone: [facility] Comment on above: Refill Request Transition Of Care Start: 08-06-2023 Non-patient / Non-visit Dr. Sari Cole Work Phone: [facility] Work Phone: Start: 08-05-2023 Non-patient / Non-visit Dr. Sari Cole Work Phone: [facility] Work Phone: Start: 08-04-2023 End: 08-06-2023 Evaluation and management of inpatient [facility] Work Phone: Start: 07-28-2023 ambulatory Herson Ashford RN Work Phone: [facility] Comment on above: community monitoring outreach (CDM-Telephonic outreach) Start: 07-23-2023 ambulatory Herson Ashford RN Work Phone: [facility] Comment on above: community monitoring outreach (CDM-Telephonic outreach) Start: 07-21-2023 Refill Ricci Cole MD Work Phone: [facility] [place] Comment on above: Refill Request Start: 07-14-2023 Refill Ricci Cole MD Work Phone: [facility] [place] Comment on above: Refill Request Start: 07-09-2023 End: 07-09-2023 Patient encounter procedure Sophia Fan APRN.LINE THERAPIST Work Phone: [facility] Comment on above: Urinary frequency (P rimary Dx) Start: 07-01-2023 Telephone encounter Ricci Cole MD Work Phone: [facility] [place] Comment on above: Refill Request Start: 06-13-2023 ambulatory Herson Ashford RN Work Phone: [facility] Comment on above: community monitoring outreach (CDM-Telephonic outreach) Start: 06-11-2023 Refill Ricci Cole MD Work Phone: [facility] [place] Comment on above: Refill Request Start: 06-02-2023 ambulatory Lou Shrestha [facility] [place] Comment on above: Population Health Na vigation Outreach (ACO BP AND DM) Start: 05-13-2023 ambulatory Herson Ashford RN Work Phone: [facility] Comment on above: community monitoring outreach (CDM-Telephonic outreach) Start: 05-07-2023 Refill Ricci Cole MD Work Phone: [facility] [place] Comment on above: Refill Request Start: 05-06-2023 Telephone encounter Ricci Cole MD Work Phone: [facility] [place] Comment on above: Forms Start: 04-23-2023 Telephone encounter Ricci Cole MD Work Phone: [facility] [place] Comment on above: Forms Start: 04-18-2023 Telephone encounter Nanci miller APRN.LINE THERAPIST Work Phone: [facility] [place] Comment on above: Results Start: 04-16-2023 Telephone encounter Ricci Cole MD Work Phone: [facility] [place] Comment on above: Patient Update Forms Start: 04-15-2023 End: 04-15-2023 Office outpatient visit 40 minutes Nanci Huber RAE Work Phone: [facility] [place] Comment on above: Type 2 diabetes ayden itus without complication, without long- term current use of insulin (HCC) (Primary Dx); Chronic nausea; Primary hypertension; Secondary polycythemia; Hyperlipidemia, mixed; Urinary frequency; Panic attacks; Fibromyalgia; Low vitamin D level; Serum calcium elevated; Vitamin D deficiency, unspecified; Visit for screening mammogram; Asymptomatic postmenopausal status; Screening for colon cancer; Encounter for screening for lung cancer; Other chronic gastritis without hemorrhage; Weight loss; Encounter for immunization; Chronic bronchitis, unspecified chronic bronchitis type (HCC); Depression, major, recurrent, in complete remission (HCC); Uncontrolled type 2 diabetes mellitus with hyperglycemia (HCC) Start: 04-10-2023 ambulatory Herson Ashford RN Work Phone: [facility] Comment on above: community monitoring outreach (CDM-Telephonic outreach) Start: 04-09-2023 Telephone encounter Ricci Cole MD Work Phone: [facility] [place] Comment on above: Appointment Start: 2023 Refill Ricci Cole MD Work Phone: [facility] [place] Comment on above: Refill Request Start: 04-02-2023 Telephone encounter Ricci Cole MD Work Phone: [facility] [place] Comment on above: Forms Start: 03-27-2023 Telephone encounter Ricci Cole MD Work Phone: [facility] [place] Comment on above: Patient Question Start: 03-24-2023 Refill Ricci Cole MD Work Phone: [facility] [place] Comment on above: Refill Request Start: 03-13-2023 Social Work [facility] Comment on above: Needs assistance wit h community resources (Primary Dx); Assistance needed with transportation Start: 03-11-2023 ambulatory Herson Ashford RN Work Phone: [facility] Comment on above: community monitoring outreach (CDM-Telephonic outreach) Start: 02-24-2023 Telephone encounter Ricci Cole MD Work Phone: [facility] Comment on above: Medication Request Start: 02-17-2023 Refill Ricci Cole MD Work Phone: [facility] [place] Comment on above: Refill Request Start: 02-03-2023 Refill Ricci Cole MD Work Phone: [facility] [place] Comment on above: Refill Request Start: 01-22-2023 Refill Ricci Cole MD Work Phone: [facility] [place] Comment on above: Refill Request; Refi ll Request Start: 01-14-2023 [facility] Comment on above: Population Health Na vigation Outreach (LARY J[facility] PCSA/) Start: 01-01-2023 Refill Ricci Cole MD Work Phone: [facility] [place] Comment on above: Refill Request Start: 12-11-2022 ambulatory Ricci Cole MD Work Phone: [facility] [place] Start: 12-06-2022 ambulatory Herson Ashford RN Work Phone: [facility] Comment on above: community monitoring outreach (CDM-Telephonic outreach) Start: 11-25-2022 Refill Ricci Cole MD Work Phone: [facility] Comment on above: Refill Request Start: 11-14-2022 End: 11-14-2022 Emergency department patient visit [facility] Start: 11-11-2022 ambulatory Herson Ashford RN Work Phone: [facility] Comment on above: community monitoring outreach (CDM-Telephonic outreach) Start: 11-05-2022 Refill Ricci Cole MD Work Phone: [facility] [place] Comment on above: Refill Request Start: 10-07-2022 ambulatory Herson Ashford RN Work Phone: [facility] Comment on above: community monitoring outreach (CDM-telephonic outreach) Start: 09-05-2022 ambulatory Herson Ashford RN Work Phone: [facility] Start: 09-05-2022 Follow-up encounter Herson beltran RN Work Phone: [facility] Comment on above: community monitoring outreach (CDM-Insight escalation follow up call) Start: 09-04-2022 ambulatory Brittany sargent MD Work Phone: [facility] Comment on above: Nausea Start: 09-04-2022 Telemedicine consultation with patient Brittany Sam MD Work Phone: MAIN VIRTUAL VISIT Start: 09-03-2022 ambulatory Herson Ashford RN Work Phone: [facility] Comment on above: community monitoring outreach (CDM-Telephonic outreach/) Start: 08-12-2022 Refill Ricci Cole MD Work Phone: [facility] [place] Comment on above: Refill Request Start: 07-31-2022 Refill Ricci Cole MD Work Phone: [facility] Comment on above: Refill Request Start: 07-30-2022 ambulatory Herson Ashford RN Work Phone: [facility] Comment on above: community monitoring outreach (CDM telephonic outreach) Start: 07-24-2022 Refill Ricci Cole MD Work Phone: [facility] [place] Comment on above: Refill Request Start: 07-11-2022 Refill Ricci Cole MD Work Phone: [address] [place] [address] Comment on above: Refill Request Start: 06-27-2022 Refill Ricci Cole MD Work Phone: [facility] [place] Comment on above: Refill Request Start: 06-25-2022 Refill Ricci Cole MD Work Phone: [facility] Comment on above: Refill Request Patient Update Start: 06-24-2022 Refill Ricci Cole MD Work Phone: [facility] [place] Comment on above: Refill Request Start: 06-19-2022 ambulatory Sho Hebert RN Work Phone: [facility] Comment on above: Community Monitoring Outreach (CDM Telephonic) Start: 06-12-2022 Non-patient / Non-visit Dr. Sari Cole Work Phone: [facility] Start: 06-12-2022 End: 06-12-2022 Admission to same day surgery center Dr. Ricci Cole Work Phone: [facility]Endoscopy Start: 06-12-2022 End: 06-12-[address] Ricci Cole Work Phone: [facility] Work Phone: Start: 06-05-2022 ambulatory Sho Hebert RN Work Phone: [facility] Comment on above: Community Monitoring Outreach (CDM Telephonic) Start: 05-28-2022 Refill Ricci Cole MD Work Phone: [facility] Comment on above: Refill Request Start: 05-11-2022 End: 05-11-[address] Ricci Cole Work Phone: [facility]Medical Out Start: 05-10-2022 End: 05-10-[address] Ricci Cole Work Phone: [facility] Work Phone: Start: 05-10-2022 End: 05-10-[address] Ricci Cole Work Phone: [facility] Out Start: 05-09-2022 End: 05-09-[address] Ricci Cole Work Phone: [facility] Work Phone: Start: 05-09-2022 End: 05-09-[address] Ricci Cole Work Phone: [facility] Start: 05-08-2022 End: 05-08-[address] Ricci Cole Work Phone: [facility] Work Phone: Start: 05-08-2022 End: 05-08-[address] Ricci Cole Work Phone: [facility] Start: 05-07-2022 End: 05-07-[address] Ricci Cole Work Phone: [facility] Work Phone: Start: 05-07-2022 End: 05-07-[address] Ricci Cole Work Phone: [facility] Start: 05-06-2022 End: 05-06-2022 Patient Outreach Ricci Cole MD Work Phone: [facility] Comment on above: Transition Of Care Start: 05-06-2022 End: 05-06-[address] Ricci Cole Work Phone: [facility] Start: 05-05-2022 End: 05-05-[address] Ricci Cole Work Phone: [facility] Work Phone: Start: 05-05-2022 End: 05-05-[address] Ricci Cole Work Phone: [facility] Start: 05-04-2022 End: 05-04-[address] Ricci Cole Work Phone: [facility] Start: 05-03-2022 Telephone encounter Ricci Cole MD Work Phone: [facility] Comment on above: Orders; Follow HH Or ders Start: 05-03-2022 Non-patient / Non-visit Dr. Sari Cole Work Phone: [facility] Start: 05-02-2022 Non-patient / Non-visit Dr. Sari Cole Work Phone: [facility] Start: 05-01-2022 ambulatory Sho Hebert RN Work Phone: [facility] Comment on above: Community Monitoring Outreach (CDM Telephonic) Start: 05-01-2022 Non-patient / Non-visit Dr. Sari Cole Work Phone: [facility] Start: 05-01-2022 End: 05-03-2022 Evaluation and management of inpatient Dr. Ricci Cole [facility] Start: 04-30-2022 ambulatory Sho Hebert RN Work Phone: [facility] Start: 04-30-2022 Follow-up encounter Sho Hebert RN Work Phone: Coord[facility] Of [facility] Services Management Comment on above: Community Monitoring Outreach (CDM Follow Up) Start: 04-26-2022 End: 04-26-[address] Ricci Cole Work Phone: [facility] Start: 04-22-2022 Refill Ricci Cole MD Work Phone: [facility] Comment on above: Refill Request Start: 04-16-2022 ambulatory Sho Hebert RN Work Phone: [facility] Start: 04-16-2022 Follow-up encounter Sho Hebert RN Work Phone: Coordinator Of Rehabilitation Services Management Comment on above: Community Monitoring Outreach (CDM Telephonic Follow Up) Start: 04-15-2022 ambulatory Sho Hebert RN Work Phone: [facility] [place] Start: 04-15-2022 Follow-up encounter Sho Hebert RN Work Phone: Coordinator Of Rehabilitation Services Management Comment on above: Community Monitoring Outreach (CDM Telephonic Follow Up) Start: 03-27-2022 Refill Ricci Cole MD Work Phone: [facility] Comment on above: Refill Request Start: 03-26-2022 Refill Ricci Cole MD Work Phone: [facility] Comment on above: Prescription Refills Start: 03-18-2022 ambulatory Sho Hebert RN Work Phone: [facility] [place] Start: 03-18-2022 Follow-up encounter Sho Hebert RN Work Phone: Coordinator Of Rehabilitation Services Management Comment on above: Community Monitoring Outreach (Telephonic Follow Up) Start: 02-18-2022 ambulatory Sho Hebert RN Work Phone: [facility] [place] Start: 02-18-2022 Follow-up encounter Sho Hebert RN Work Phone: [facility] Services Management Comment on above: Community Monitoring Outreach (Telephonic Follow Up) Start: 02-15-2022 ambulatory Sho Hebert RN Work Phone: [facility] [place] Start: 02-15-2022 Follow-up encounter Sho Hebert RN Work Phone: Coord[facility] Of Rehabilitation Services Management Comment on above: Community Monitoring Outreach (Telephonic Follow Up) Start: 02-11-2022 Refill Ricci Cole MD Work Phone: [facility] Comment on above: Refill Request Start: 02-01-2022 Refill Ricci Cole MD Work Phone: [facility] Comment on above: Refill Request Start: 01-31-2022 ambulatory Sho Hebert RN Work Phone: Coordinator Of Rehabilitation Services Management Start: 01-29-2022 End: 01-29-2022 Patient encounter tequila Holland PA-C Work Phone: [facility] [place] Comment on above: Fibromyalgia (Primar y Dx); Type 2 diabetes mellitus without complication, without long-term current use of insulin (HCC); Screening for colon cancer; Primary hypertension; Depression, major, recurrent, in complete remission (HCC); Hospital discharge follow-up Start: 01-23-2022 Patient Outreach Ricci velazquez MD Work Phone: [facility] Comment on above: Transition Of Care Start: 01-22-2022 ambulatory Sho Hebert RN Work Phone: [facility] Start: 01-22-2022 Follow-up encounter Sho Hebert RN Work Phone: [facility] Services Management Comment on above: Community Monitoring Outreach (Telephonic Follow Up) Refill Request Start: 01-22-2022 Non-patient / Non-visit Dr. Sari Cole Work Phone: [facility] Start: 01-21-2022 Non-patient / Non-visit Dr. Sari Cole Work Phone: [facility] Start: 01-20-2022 Non-patient / Non-visit Dr. Sari Cole Work Phone: [facility] Start: 01-19-2022 Non-patient / Non-visit Dr. Sari Cole Work Phone: [facility] Start: 01-18-2022 Non-patient / Non-visit Dr. Sari Cole Work Phone: [facility] Start: 01-17-2022 Non-patient / Non-visit Dr. Sari Cole Work Phone: [facility] Start: 01-17-2022 End: 01-22-2022 Evaluation and management of inpatient Dr. Ricci Cole [facility] Start: 01-07-2022 ambulatory Sho Hebert RN Work Phone: Coordinator Of Rehabilitation Services Management Comment on above: Community Monitoring Outreach (Telephonic Foillow Up) Start: 01-07-2022 Telephone encounter Ricci Cole MD Work Phone: [facility] Comment on above: Results Start: 01-05-2022 End: 01-05-2022 Patient encounter procedure Ricci Cole MD Work Phone: [facility] [place] Comment on above: Nausea (Primary Dx); Other chronic gastritis without hemorrhage; Urinary incontinence, unspecified type; History of recurrent UTIs; Migraine with aura and without status migrainosus, not intractable; Leukocytosis, unspecified type; Secondary polycythemia; Tobacco use; Primary hypertension; Hyperlipidemia, mixed; Depression, major, recurrent, in complete remission (HCC); Uncontrolled type 2 diabetes mellitus with hyperglycemia ([facility]); Screening breast examination; Screening for colon cancer; Pyuria; Chronic bronchitis, unspecified chronic bronchitis type ([facility]) Start: 01-02-2022 Telephone encounter Ricci Cole MD Work Phone: [facility] [place] Comment on above: Results Start: 01-02-2022 End: 01-02-2022 [facility] Start: 12-31-2021 ambulatory Padmini Moura MD Work Phone: [facility] Comment on above: COPD with exacerbati on (HCC) (Primary Dx) Start: 12-31-2021 Telemedicine consultation with patient Padmini Moura MD Work Phone: [facility] Start: 12-24-2021 Telephone encounter Yasmany Holland PA-C Work Phone: [facility] Comment on above: Patient Update Start: 12-20-2021 Telephone encounter Yasmany Hloland PA-C Work Phone: [facility] Comment on above: Results UTI Start: 12-18-2021 ambulatory Sho Hebert RN [facility] Start: 12-18-2021 Follow-up encounter Sho Hebert RN Coordinator Of Rehabilitation Services Management Comment on above: Community Monitoring Outreach (Telephonic Follow Up) Start: 12-18-2021 End: 12-18-2021 Patient encounter procedure Yasmany Holland PA-C Work Phone: [facility] [place] Comment on above: Suspected COVID-19 v irus infection (Primary Dx); Fatigue, unspecified type; SOB (shortness of breath); Mixed simple and mucopurulent chronic bronchitis (HCC); Depression, major, recurrent, in complete remission (HCC); Fibromyalgia; Hyperlipidemia, mixed; Panic disorder without agoraphobia; Primary hypertension; Secondary polycythemia; Tobacco use disorder; Uncontrolled type 2 diabetes mellitus with hyperglycemia (HCC); Generalized abdominal pain; Low vitamin D level; Urinary frequency; Intermittent chest pain; Disorder of cartilage, unspecified ; Nausea Start: 12-12-2021 Refill Ricci Cole MD Work Phone: [facility] Comment on above: Refill Request Start: 12-06-2021 ambulatory Sho Hebert RN [facility] Start: 12-06-2021 Follow-up encounter Sho Hebert RN [facility] Management Comment on above: Community Monitoring Outreach (Telephonic Follow Up) Start: 12-03-2021 ambulatory Sho Hebert RN Coord[facility] Rehabilitation Services Management Comment on above: Community Monitoring Outreach (CDM Telephonic) Start: 11-29-2021 Refill Ricci Cole MD Work Phone: [facility] Comment on above: Refill Request Start: 11-22-2021 End: 11-22-2021 Patient encounter procedure Joyce Perry PA-C Work Phone: Pulmonary Medicine Comment on above: COPD with exacerbati on (HCC) (Primary Dx); COPD with chronic bronchitis (HCC); Tobacco use disorder, continuous Start: 07-16-2021 End: 07-16-2021 Emergency department patient visit RENAY HICKS [facility] Start: 04-11-2021 End: 04-11-2021 Subsequent hospital visit by physician Xr [facility] [employer] Work Phone: Radiology Comment on above: Acute bronchitis wit h COPD (HCC) (HCC) [J44.0, J20.9] Start: 07-27-2020 End: 07-27-2020 Subsequent hospital visit by physician Xr [facility] [employer] Work Phone: Radiology Comment on above: Cough [R05] Start: 04-12-2020 End: 04-12-2020 Emergency department patient visit TOSHIA GUILLORY [facility] Procedures Date Procedure Procedure Detail Performing Clinician Start: 05-15-[address] Ricci Cole MD Work Phone: Start: 05-15-2025 Urnls dip stick/tablet reagent auto microscopy Dr. Ricci Cole MD Work Phone: Start: 05-15-2025 CT of chest without contrast Dr. Ricci Cole MD Work Phone: Start: 05-15-2025 CT of head without contrast Dr. Ricci Cole MD Work Phone: Start: 05-15-[address] Josue Cole MD Work Phone: Start: 03-01-2025 Urnls dip stick/tablet rgnt auto w/o microscopy Smiley A Suppan COURT MESSENGER.LINE THERAPIST Work Phone: Start: 07-26-2024 Urnls dip stick/tablet rgnt auto w/o microscopy Smiley A Suppan COURT MESSENGER.LINE THERAPIST Work Phone: Start: 04-29-2024 Urnls dip stick/tablet rgnt auto w/o microscopy Smiley A Suppan COURT MESSENGER.LINE THERAPIST Work Phone: Start: 03-23-2024 Urnls dip stick/tablet rgnt auto w/o microscopy Smiley A Suppan COURT MESSENGER.LINE THERAPIST Work Phone: Start: 09-04-2023 Radiologic exam chest [address] MESSENGER.LINE THERAPIST Work Phone: Start: 08-04-2023 Plain chest X-ray Start: 07-09-2023 Gluc bld gluc mntr dev cleared fda spec home use Sophia Fan COURT MESSENGER.LINE THERAPIST Work Phone: Start: 07-09-2023 Urnls dip stick/tablet rgnt auto w/o microscopy Lou Corona COURT MESSENGER.LINE THERAPIST Work Phone: Start: 11-14-2022 Plain chest X-ray Start: 06-12-[address] Ricci yuen Work Phone: Start: 05-02-[address] Ricci Cole Work Phone: Start: 04-30-2022 Plain chest X-ray Dr. Ricci Cole Work Phone: Start: 04-30-2022 CT of head without contrast Dr. Ricci Cole Work Phone: Start: 01-18-2022 Plain X-ray abdomen Dr. Ricci Cole Work Phone: Start: 01-17-[address] Ricci Cole Work Phone: Start: 01-02-[address] Ricci Cole Work Phone: Start: 01-02-2022 CT of abdomen and pelvis without contrast Start: 12-18-2021 Urnls dip stick/tablet rgnt auto w/o microscopy M Reuben Holland PA-C Work Phone: Start: 07-27-2020 Radiologic exam chest [address] MESSENGER.LINE THERAPIST Work Phone: Start: 04-12-2020 Urinalysis TOSHIA ROMERO Comment on above: Result Comment: URINALYSIS Performed By: #### 2 [id number] #### [facility],[address] [place] [address] Start: 05-18-2019 Mammography Joyce Perry PA-C Work Phone: Bacteria identified in Blood by Culture Dr. Ricci Cole Work Phone: SARS-CoV-2 & FLU Antigen (Rapid) Urine culture Dr. Ricci Milian Work Phone: Viral antigen assay Dr. Vamsi Cole Work Phone: Plan of Treatment Date Care Activity Detail Author Start: 05-06-2026 Annual PCP Team Chronic Disease Visit Annual PCP Team Chronic Disease Visit [facility] Start: 05-06-2026 RSV Vaccine (1 - Risk 60-74 years 1-dose series) RSV Vaccine (1 - Risk 60-74 years 1-dose series) [facility] Comment on above: Postponed from 2017 (Declined at t his time) Start: 05-06-2026 Shingrix Vaccine (2 of 2) Shingrix Vaccine (2 of 2) [facility] Comment on above: Postponed from 07/29/2019 (Declined at t his time) Start: 05-06-2026 Urine microalbumin profile DTaP,Tdap,Td Vaccine (1 - Tdap) [facility] Comment on above: Postponed from 1976 (Declined at t his time) Start: 03-29-2026 Annual PCP Team Chronic Disease Visit Annual PCP Team Chronic Disease Visit [facility] Start: 03-10-2026 Annual PCP Team Chronic Disease Visit Annual PCP Team Chronic Disease Visit [facility] Start: 03-01-2026 Annual PCP Team Chronic Disease Visit Annual PCP Team Chronic Disease Visit [facility] Start: 03-01-2026 Hepatitis B screening Urine Albumin:Creatinine Ratio [facility] Start: 03-01-2026 Hepatitis B surface antibody level LDL Cholesterol [facility] Start: 02-21-2026 Influenza vaccination Influ[facility]ine (#[facility] Comment on above: Postponed from 04/25/2025 (Declined at t his time) Start: 11-03-2025 End: 02-02-2026 Hemoglobin A1c in Blood HEMOGLOBIN A1C Lab Routine Uncontrolled type 2 diabetes mellitus with hyperglycemia (HCC) Expected: 11/03/2025, Expires: 02/02/2026 [facility] Work Phone: Comment on above: Expected: 11/03/2025, Expires: Start: 09-01-2025 Hemoglobin A1c measurement HbA1C [facility] Start: 08-01-2025 End: 08-01-2025 Patient encounter procedure 08/01/2025 9:20 AM EST Office Visit Family Medicine [facility] [address] [place], [place] [id number] Smiley Melo APRN.LINE THERAPIST [address] [facility] [place] [id number] 3 month exam [facility] Comment on above: 3 month exam Start: 07-26-2025 Annual PCP Team Chronic Disease Visit Annual PCP Team Chronic Disease Visit [facility] Start: 07-26-2025 BP Controlled (<130/80) BP Controlled (<130/80) [facility] Start: 07-26-2025 Diabetic foot examination Diabetic Foot Exam [facility] Start: 06-06-2025 Glaucoma screening Dilated Retinal Exam [facility] Comment on above: Postponed from 09/29/2024 (Currently Olga eduled) Start: 06-02-2025 End: 06-02-2025 Patient encounter procedure 06/02/2025 9:40 AM EDT Office Visit Family [facility] [address] [place] [address] Smiley Melo APRN.LINE THERAPIST [address] [place] [address] 3 [facility]: 3 month follow up Start: 05-24-2025 End: 05-24-2025 Patient encounter procedure 05/24/2025 8:00 AM EDT Office Visit [facility] [address] [place] [address] Merlene Heaton, OD [address] [place] [address] Diagnostics, [facility] [address] [id number] Diabetic Ophthalmology Comment on above: Diabetic Start: 05-15-2025 [facility] Start: 05-06-2025 End: 08-05-2025 25-hydroxyvitamin D3 [Mass/volume] in Serum or Plasma VITAMIN D 25 HYDROXY Lab Routine Vitamin D deficiency Expected: 05/06/2025, Expires: 08/05/2025 [facility] Comment on above: Expected: 05/06/2025, Expires: Start: 05-06-2025 End: 08-05-2025 Cobalamin (Vitamin B12) [Mass/volume] in Serum or Plasma VITAMIN B12 Lab Routine Vitamin B12 deficiency Expected: 05/06/2025, Expires: 08/05/2025 [facility] Comment on above: Expected: 05/06/2025, Expires: Start: 05-06-2025 End: 08-05-2025 Comprehensive metabolic 2000 panel - Serum or Plasma COMPREHENSIVE METABOLIC PANEL Lab Routine Primary hypertension Uncontrolled type 2 diabetes mellitus with hyperglycemia (HCC) Expected: 05/06/2025, Expires: 08/05/2025 [facility] Comment on above: Expected: 05/06/2025, Expires: Start: 05-06-2025 End: 06-05-2026 XR Abdomen Supine and Upright XR ABDOMEN 1V SUPINE Radiology Routine Gastroenteritis Expected: 05/06/2025, Expires: 06/05/2026 [facility] Comment on above: Expected: 05/06/2025, Expires: Start: 04-25-2025 Influenza vaccination [facility] Vaccine [facility] Start: 04-08-2025 End: 04-08-2025 Patient encounter procedure 04/08/2025 1:00 PM EDT Office Visit [facility] [address] [place] [address] Merlene Heaton, OD [address] [place] [address] Diagnostics, [facility] [address] [id number] rescheduled from 02/01 Ophthalmology Comment on above: rescheduled from 02/01 Start: 03-29-2025 End: 03-29-2025 Patient encounter procedure 03/29/2025 2:30 PM EDT Office Visit [facility] [address] [place] [address] Merlene Heaton, OD [address] [place] [address] Diagnostics, [facility] [address] [id number] rescheduled from 02/01 Ophthalmology Comment on above: rescheduled from 02/01 Start: 03-25-2025 End: 03-25-2025 Patient encounter procedure 03/25/2025 9:40 AM EDT Office Visit Family Medicine [facility] [address] [facility] [place] [address] Smiley Melo APRN.LINE THERAPIST [address] [place] [address] 2 week follow up chronic bronchitis [facility] Comment on above: 2 week follow up chronic bronchitis Start: 03-24-2025 End: 03-24-2025 Patient encounter procedure 03/24/2025 10:20 AM EDT Office Visit Family [facility] Jay Em [address] [facility] [place], [place] [id number] Smiley Melo APRN.LINE THERAPIST [address] [place] [address] 2 week follow up chronic bronchitis [facility] Comment on above: 2 week follow up chronic bronchitis Start: 03-10-2025 End: 03-10-2025 Patient encounter procedure 03/10/2025 2:30 PM EDT Office Visit [facility] [address] [facility] [place] [address] Merlene Heaton, OD [address] [facility] [place] [address] Diagnostics, [facility] [address] [phone] rescheduled from 02/01 Ophthalmology Comment on above: rescheduled from 02/01 Start: 03-10-2025 End: 06-09-2025 Urinalysis complete panel - Urine [facility] Work Phone: Comment on above: Expected: 03/10/2025, Expires: Start: 03-10-2025 End: 03-10-2025 Patient encounter procedure 03/10/2025 10:40 AM EDT Office Visit Family [facility] [address] [place] [address] Smiley Melo NASEEM.LINE THERAPIST [address] [facility] [place] [address] Pt was in on 03/01/25 still coughing non-stop and bringing up thick white-yellow phlegm and still with SOB. See TE 03/09/25. [facility] Comment on above: Pt was in on 03/01/25 still coughing non-s top and bringing up thick white-yellow phlegm and still with SOB. See TE 03/09/25. Start: 03-01-2025 End: 05-31-2025 Cobalamin (Vitamin B12) [Mass/volume] in Serum or Plasma [facility] Comment on above: Expected: 03/01/2025, Expires: Start: 03-01-2025 End: 05-31-2025 Comprehensive metabolic 2000 panel - Serum or Plasma [facility] Work Phone: Comment on above: Expected: 03/01/2025, Expires: Start: 03-01-2025 End: 05-31-2025 Hemoglobin A1c in Blood [facility] Comment on above: Expected: 03/01/2025, Expires: Start: 03-01-2025 End: 05-31-2025 LIPID PANEL, NONFASTING [facility] Comment on above: Expected: 03/01/2025, Expires: Start: 03-01-2025 End: 05-31-2025 Magnesium [Mass/volume] in Serum or Plasma [facility] Comment on above: Expected: 03/01/2025, Expires: Start: 03-01-2025 End: 05-31-2025 Microalbumin/Creatinine [Mass Ratio] in Urine [facility] Comment on above: Expected: 03/01/2025, Expires: Start: 03-01-2025 End: 05-31-2025 Thyrotropin [Units/volume] in Serum or Plasma [facility] Comment on above: Expected: 03/01/2025, Expires: Start: 02-01-2025 End: 02-01-2025 Patient encounter procedure 02/01/2025 9:00 AM EDT Office Visit [facility] [address] [place] [address] Merlene Heaton, OD [address] [place] [address] rescheduled from 12/31 Ophthalmology Comment on above: rescheduled from 12/31 Start: 01-28-2025 End: 01-28-2025 Patient encounter procedure 01/28/2025 2:40 PM EDT Office Visit Family Medicine [facility] [address] [place] [address] Smiley Melo APRN.LINE THERAPIST [address] [place] [address] 6 month f/u-check height [facility] Comment on above: 6 month f/u-check height Start: 01-24-2025 End: 01-24-2025 Patient encounter procedure Family [facility] Comment on above: 6 month f/u 6 month f/u-check he ight Start: 01-11-2025 End: 01-11-2025 Patient encounter procedure 01/11/2025 9:00 AM EDT Office Visit [facility] [address] [place] [address] Merlene Heaton, OD [address] [place] [address] rescheduled from 12/31 Ophthalmology Comment on above: rescheduled from 12/31 Start: 01-03-2025 End: 04-04-2025 CBC W Auto Differential panel - Blood COMPLETE BLOOD COUNT AND DIFFERENTIAL Lab Routine Uncontrolled type 2 diabetes mellitus with hyperglycemia (HCC) Expected: 01/03/2025, Expires: 04/04/2025 [facility] Comment on above: Expected: 01/03/2025, Expires: Start: 01-03-2025 End: 04-04-2025 Comprehensive metabolic 2000 panel - Serum or Plasma COMPREHENSIVE METABOLIC PANEL Lab Routine Uncontrolled type 2 diabetes mellitus with hyperglycemia (HCC) Expected: 01/03/2025, Expires: 04/04/2025 [facility] Comment on above: Expected: 01/03/2025, Expires: Start: 01-03-2025 End: 04-04-2025 Hemoglobin A1c in Blood HEMOGLOBIN A1C Lab Routine Uncontrolled type 2 diabetes mellitus with hyperglycemia (HCC) Expected: 01/03/2025, Expires: 04/04/2025 [facility] Work Phone: Comment on above: Expected: 01/03/2025, Expires: Start: 01-03-2025 End: 04-04-2025 Lipid 1996 panel - Serum or Plasma LIPID PANEL, FASTING Lab Routine Uncontrolled type 2 diabetes mellitus with hyperglycemia (HCC) Expected: 01/03/2025, Expires: 04/04/2025 [facility] Comment on above: Expected: 01/03/2025, Expires: Start: 12-31-2024 End: 12-31-2024 Patient encounter procedure 12/31/2024 8:15 AM EDT Office Visit [facility] [address] [place] [address] Merlene Heaton, OD [address] [place] [address] Diabetic Ophthalmology Comment on above: Diabetic Start: 11-11-2024 End: 11-11-2024 Patient encounter procedure Ophthalmology Comment on above: Diabetic Start: 10-18-2024 End: 10-18-2024 Patient encounter procedure 10/18/2024 10:00 AM EST Office Visit Pulmonary Medicine [address] [place] [address] Angle Panchal APRN.LINE THERAPIST [address] [place] [address] L[facility] order is in [facility] Pulmonary Medicine Comment on above: LCS order is in [facility] Start: 09-29-2024 Glaucoma screening Dilated Retinal Exam [facility] Start: 09-27-2024 End: 09-27-2024 Patient encounter procedure 09/27/2024 2:15 PM EST Appointment Radiology [address] [place] [id number] Screening for osteoporosis [Z13.820] Radiology Comment on above: Screening for osteoporosis [Z13.820] Start: 09-17-2024 End: 09-17-2024 Patient encounter procedure 09/17/2024 1:45 PM EST Office Visit [facility] [address] [place] [address] Merlene Heaton, OD [address] [place] [address] Diabetic Ophthalmology Comment on above: Diabetic Start: 08-27-2024 Annual PCP Team Chronic Disease Visit Annual PCP Team Chronic Disease Visit [facility] Start: 08-25-2024 Advance Directive Discussion Advance Directive Discussion [facility] Start: 08-25-2024 Medicare Advantage Annual Wellness Visit Medicare Advantage Annual Wellness Visit [facility] Start: 08-15-2024 Covid-19 Vaccine ( season) Covid-19 Vaccine ( season) [facility] Comment on above: Postponed from 04/25/2023 (Declined at t his time) Start: 08-15-2024 Hepatitis B surface antibody level LDL Cholesterol [facility] Start: 08-15-2024 RSV Vaccine (1 - 1-dose 60+ series) RSV Vaccine (1 - 1-dose 60+ series) [facility] Comment on above: Postponed from 2017 (Declined at t his time) Start: 08-15-2024 RSV Vaccine (1 - Risk 60-74 years 1-dose series) RSV Vaccine (1 - Risk 60-74 years 1-dose series) [facility] Comment on above: Postponed from 2017 (Declined at t his time) Start: 08-15-2024 Shingrix Vaccine (2 of 2) Shingrix Vaccine (2 of 2) [facility] Comment on above: Postponed from 07/29/2019 (Declined at t his time) Start: 08-02-2024 End: 11-01-2024 Bacteria identified in Urine by Culture URINE CULTURE Microbiology Routine Recurrent UTI (urinary tract infection) Expected: 08/02/2024, Expires: 11/01/2024 [facility] Comment on above: Expected: 08/02/2024, Expires: Start: 07-26-2024 End: 10-25-2024 Bacteria identified in Urine by Culture URINE CULTURE Microbiology Routine Recurrent UTI (urinary tract infection) Expected: 07/26/2024, Expires: 10/25/2024 [facility] Comment on above: Expected: 07/26/2024, Expires: Start: 07-26-2024 End: 10-25-2024 CBC W Auto Differential panel - Blood COMPLETE BLOOD COUNT AND DIFFERENTIAL Lab Routine Fibromyalgia Type 2 diabetes mellitus without complication, without long-term current use of insulin (HCC) Chronic nausea Expected: 07/26/2024, Expires: 10/25/2024 [facility] Comment on above: Expected: 07/26/2024, Expires: Start: 07-26-2024 End: 10-25-2024 Cobalamin (Vitamin B12) [Mass/volume] in Serum or Plasma VITAMIN B12 Lab Routine Fibromyalgia Type 2 diabetes mellitus without complication, without long-term current use of insulin (HCC) Chronic nausea Expected: 07/26/2024, Expires: 10/25/2024 [facility] Comment on above: Expected: 07/26/2024, Expires: Start: 07-26-2024 End: 10-25-2024 Comprehensive metabolic 2000 panel - Serum or Plasma COMPREHENSIVE METABOLIC PANEL Lab Routine Fibromyalgia Type 2 diabetes mellitus without complication, without long-term current use of insulin (HCC) Chronic nausea Expected: 07/26/2024, Expires: 10/25/2024 [facility] Comment on above: Expected: 07/26/2024, Expires: Start: 07-26-2024 End: 10-25-2024 Hemoglobin A1c in Blood HEMOGLOBIN A1C Lab Routine Uncontrolled type 2 diabetes mellitus with hyperglycemia (HCC) Expected: 07/26/2024, Expires: 10/25/2024 [facility] Comment on above: Expected: 07/26/2024, Expires: Start: 07-26-2024 End: 10-25-2024 LIPID PANEL, NONFASTING LIPID PANEL, NONFASTING Lab Routine Fibromyalgia Type 2 diabetes mellitus without complication, without long-term current use of insulin (HCC) Chronic nausea Expected: 07/26/2024, Expires: 10/25/2024 [facility] Comment on above: Expected: 07/26/2024, Expires: Start: 07-26-2024 End: 10-25-2024 Magnesium [Mass/volume] in Serum or Plasma MAGNESIUM Lab Routine Fibromyalgia Type 2 diabetes mellitus without complication, without long-term current use of insulin (HCC) Chronic nausea Expected: 07/26/2024, Expires: 10/25/2024 [facility] Comment on above: Expected: 07/26/2024, Expires: Start: 07-26-2024 End: 10-25-2024 Microalbumin/Creatinine [Mass Ratio] in Urine ALBUMIN/CREATININE RATIO, URINE Lab Routine Uncontrolled type 2 diabetes mellitus with hyperglycemia (HCC) Expected: 07/26/2024, Expires: 10/25/2024 [facility] Comment on above: Expected: 07/26/2024, Expires: Start: 06-01-2024 End: 06-01-2024 Patient encounter procedure 06/01/2024 1:20 PM EDT Office Visit [facility] [address] [place] [address] Smiley Melo APRN.LINE THERAPIST [address] [place], [place] [id number] 1 month f/u [facility] Comment on above: 1 month f/u Start: 04-30-2024 End: 04-30-2024 Patient encounter procedure 04/30/2024 4:20 PM EDT Office Visit [facility] Ida Johnson [address], [place] [address] Ricci Cole MD [address] [place], [place] [address] incontinence [facility] Comment on above: incontinence Start: 04-29-2024 End: 07-29-2024 Bacteria identified in Urine by Culture [facility] Work Phone: Comment on above: Expected: 04/29/2024, Expires: Start: 04-25-2024 Covid-19 Vaccine ( season) Covid-19 Vaccine ( season) [facility] Start: 04-25-2024 Covid-19 Vaccine () Covid-19 Vaccine () [facility] Start: 04-25-2024 Influenza vaccination [facility] Start: 04-15-2024 3 comp foot exam completed DIABETIC FOOT EXAM [facility] Start: 04-15-2024 ANNUAL PCP TEAM CHRONIC DISEASE VISIT ANNUAL PCP TEAM CHRONIC DISEASE VISIT [facility] Start: 04-15-2024 Diabetic foot examination Diabetic Foot Exam [facility] Start: 04-15-2024 Hepatitis B screening URINE ALBUMIN:CREATININE RATIO [facility] Start: 04-15-2024 Hepatitis B surface antibody level LDL CHOLESTEROL [facility] Start: 04-15-2024 Urine microalbumin profile [facility] Comment on above: Postponed from 1976 (Declined at t his time) Start: 04-09-2024 End: 04-09-2024 Patient encounter procedure 04/09/2024 9:40 AM EDT Office Visit Family [facility] [address], [place] [id number] Smiley Melo APRN.LINE THERAPIST [address], [place] [id number] 2 week UTI f/u [facility] Comment on above: 2 week UTI f/u Start: 04-08-2024 End: 07-08-2024 Bacteria identified in Urine by Culture URINE CULTURE Microbiology Routine Recurrent UTI (urinary tract infection) Expected: 04/08/2024, Expires: 07/08/2024 [facility] Work Phone: Comment on above: Expected: 04/08/2024, Expires: Start: 04-06-2024 End: 04-06-2024 Patient encounter procedure 04/06/2024 10:40 AM EDT Office Visit [facility] [address] [place] [address] Smiley Melo, COURT MESSENGER.LINE THERAPIST [address] [place], [place] [id number] 2 week UTI f/u [facility] Comment on above: 2 week UTI f/u Start: 03-23-2024 End: 03-23-2024 Patient encounter procedure 03/23/2024 1:40 PM EDT Office Visit [facility] [address] [place] [address] Ricci Cole MD [address] [place], [place] [id number] med refills [facility] Comment on above: med refills Start: 03-23-2024 End: 03-23-2024 Patient encounter procedure 03/23/2024 10:20 AM EDT Office Visit [facility] [address] [place] [address] Smiley Melo, COURT MESSENGER.LINE THERAPIST [address] [place] [address] Burning with Urination. See triage 03/22/2024 [facility] Comment on above: Burning with Urination. See triage 2023 Start: 02-22-2024 Influenza vaccination Influenza Vaccine (#1) [facility] Comment on above: Postponed from 04/25/2023 (Declined at t his time) Start: 02-14-2024 Hemoglobin A1c measurement HbA1C [facility] Start: 10-16-2023 Hemoglobin A1c measurement HbA1C [facility] Start: 10-16-2023 Hemoglobin A1c/Hemoglobin.total in Blood HBA1C [facility] Start: 08-25-2023 Advance Directive Discussion Advance Directive Discussion [facility] Start: 08-06-2023 Patient discharge [facility] Start: 08-05-2023 Referral to occupational therapist [facility] Start: 08-05-2023 Referral to service [facility] Start: 08-04-2023 Assessment of risk of venous thromboembolism [facility] Start: 08-04-2023 Care regimes management [facility] Start: 08-04-2023 Inhalation therapy procedure [facility] Start: 08-04-2023 Insertion of catheter into peripheral vein [facility] Start: 08-04-2023 Measuring intake and output [facility] Start: 08-04-2023 Notification of physician [facility] Start: 08-04-2023 Providing care according to standard [facility] Start: 08-04-2023 Provision of activity privileges [facility] Start: 08-04-2023 [facility] Start: 08-04-2023 Following clinical pathway protocol [facility] Start: 08-04-2023 Blood culture [facility] Start: 08-04-2023 Verification routine [facility] Start: 08-04-2023 Admission procedure [facility] Start: 08-04-2023 Hospital admission, emergency, from emergency room, medical nature [facility] Start: 08-04-2023 Bacteria identified in Blood by Culture Blood Culture [facility] Start: 08-04-2023 Bacteria identified in Urine by Culture Urine Culture [facility] Start: 08-04-2023 Urine culture Urine Culture [facility] Start: 08-04-2023 End: 08-05-2023 [facility] Start: 08-04-2023 Patient referral to dietitian [facility] Start: 04-25-2023 Covid-19 Vaccine ( season) Covid-19 Vaccine ( season) [facility] Start: 04-25-2023 Influenza vaccination [facility] Start: 04-15-2023 End: 06-15-2023 25-hydroxyvitamin D3 [Mass/volume] in Serum or Plasma [facility] Work Phone: Comment on above: Expected: 04/15/2023, Expires: 3 Start: 04-15-2023 End: 06-15-2023 Bacteria identified in Urine by Culture [facility] Work Phone: Comment on above: Expected: 04/15/2023, Expires: 3 Start: 04-15-2023 End: 06-15-2023 Comprehensive metabolic 2000 panel - Serum or Plasma [facility] Work Phone: Comment on above: Expected: 04/15/2023, Expires: Start: 04-15-2023 End: 06-15-2023 LIPID PANEL, NONFASTING [facility] Work Phone: Comment on above: Expected: 04/15/2023, Expires: Start: 04-15-2023 End: 06-15-2023 Magnesium [Mass/volume] in Serum or Plasma [facility] Work Phone: Comment on above: Expected: 04/15/2023, Expires: Start: 04-15-2023 End: 06-15-2023 Thyrotropin [Units/volume] in Serum or Plasma [facility] Work Phone: Comment on above: Expected: 04/15/2023, Expires: Start: 01-29-2023 ANNUAL PCP TEAM CHRONIC DISEASE VISIT ANNUAL PCP TEAM CHRONIC DISEASE VISIT [facility] Start: 01-29-2023 SHINGRIX VACCINE (1 of 2) SHINGRIX VACCINE (1 of 2) [facility] Comment on above: Postponed from 2007 (Insurance Cov erage) Start: 01-29-2023 Urine microalbumin profile DTAP,TDAP,TD (1 - Tdap) [facility] Comment on above: Postponed from 1976 (Insurance Cov erage) Start: 01-05-2023 ANNUAL PCP TEAM CHRONIC DISEASE VISIT ANNUAL PCP TEAM CHRONIC DISEASE VISIT [facility] Start: 01-05-2023 Hepatitis B screening URINE ALBUMIN:CREATININE RATIO [facility] Start: 01-05-2023 Hepatitis B surface antibody level LDL CHOLESTEROL [facility] Start: 12-18-2022 ANNUAL PCP TEAM CHRONIC DISEASE VISIT ANNUAL PCP TEAM CHRONIC DISEASE VISIT [facility] Start: 12-18-2022 Hepatitis B surface antibody level LDL CHOLESTEROL [facility] Start: 11-25-2022 End: 01-25-2023 ALBUMIN/CREAT RATIO RND UR ALBUMIN/CREAT RATIO RND UR Lab Routine Type 2 diabetes mellitus without complication, without long-term current use of insulin (HCC) Expected: 11/25/2022, Expires: 01/25/2023 [facility] Work Phone: Comment on above: Expected: 11/25/2022, Expires: 3 Start: 11-25-2022 End: 01-25-2023 CBC W Auto Differential panel - Blood CBC + DIFF Lab Routine Type 2 diabetes mellitus without complication, without long-term current use of insulin (HCC) Expected: 11/25/2022, Expires: 01/25/2023 [facility] Work Phone: Comment on above: Expected: 11/25/2022, Expires: 3 Start: 11-25-2022 End: 01-25-2023 Comprehensive metabolic 2000 panel - Serum or Plasma COMP METABOLIC PANEL Lab Routine Type 2 diabetes mellitus without complication, without long-term current use of insulin (HCC) Expected: 11/25/2022, Expires: 01/25/2023 [facility] Work Phone: Comment on above: Expected: 11/25/2022, Expires: 3 Start: 11-25-2022 End: 01-25-2023 Hemoglobin A1c in Blood HGB A1C Lab Routine Type 2 diabetes mellitus without complication, without long-term current use of insulin (HCC) Expected: 11/25/2022, Expires: 01/25/2023 [facility] Work Phone: Comment on above: Expected: 11/25/2022, Expires: Start: 11-25-2022 End: 01-25-2023 Lipid 1996 panel - Serum or Plasma LIPID PANEL BASIC Lab Routine Type 2 diabetes mellitus without complication, without long-term current use of insulin (HCC) Expected: 11/25/2022, Expires: 01/25/2023 [facility] Work Phone: Comment on above: Expected: 11/25/2022, Expires: 3 Start: 11-14-2022 [facility] Start: 09-07-2022 3 comp foot exam completed DIABETIC FOOT EXAM [facility] Start: 09-07-2022 ANNUAL PCP TEAM CHRONIC DISEASE VISIT ANNUAL PCP TEAM CHRONIC DISEASE VISIT [facility] Start: 08-25-2022 ADVANCE DIRECTIVE DISCUSSION ADVANCE DIRECTIVE DISCUSSION [facility] Start: 07-08-2022 Hemoglobin A1c/Hemoglobin.total in Blood HBA1C [facility] Start: 06-12-2022 Patient discharge [facility] Work Phone: Start: 05-11-2022 Iv infusion therapy/prophylaxis /dx 1st to [facility] Start: 05-10-2022 Iv infusion therapy/prophylaxis /dx 1st to 1 hr [facility] Start: 05-09-2022 Iv infusion therapy/prophylaxis /dx 1st to 1 hr [facility] Start: 05-08-2022 Iv infusion therapy/prophylaxis /dx 1st to 1 hr [facility] Start: 05-07-2022 Iv infusion therapy/prophylaxis /dx 1st to 1 hr [facility] Start: 05-06-2022 Iv infusion therapy/prophylaxis /dx 1st to 1 hr [facility] Start: 05-05-2022 Care of central venous catheter [facility] Work Phone: Start: 05-05-2022 Following clinical pathway protocol [facility] Work Phone: Start: 05-04-2022 Care of central venous catheter [facility] Work Phone: Start: 05-04-2022 Following clinical pathway protocol [facility] Work Phone: Start: 05-03-2022 Patient discharge [facility] Work Phone: Start: 05-02-2022 Following clinical pathway protocol [facility] Work Phone: Start: 05-02-2022 Referral to service [facility] Work Phone: Start: 05-01-2022 Consultation [facility] Work Phone: Start: 05-01-2022 End: 07-01-2022 CBC W Auto Differential panel - Blood CBC + DIFF Lab Routine Type 2 diabetes mellitus without complication, without long-term current use of insulin (HCC) Expected: 05/01/2022, Expires: 07/01/2022 [facility] Work Phone: Comment on above: Expected: 05/01/2022, Expires: 2 Start: 05-01-2022 End: 07-01-2022 Comprehensive metabolic 2000 panel - Serum or Plasma COMP METABOLIC PANEL Lab Routine Type 2 diabetes mellitus without complication, without long-term current use of insulin (HCC) Expected: 05/01/2022, Expires: 07/01/2022 [facility] Work Phone: Comment on above: Expected: 05/01/2022, Expires: 2 Start: 05-01-2022 End: 07-01-2022 Hemoglobin A1c/Hemoglobin.total in Blood HGB A1C Lab Routine Type 2 diabetes mellitus without complication, without long-term current use of insulin (HCC) Expected: 05/01/2022, Expires: 07/01/2022 [facility] Work Phone: Comment on above: Expected: 05/01/2022, Expires: 2 Start: 05-01-2022 End: 07-01-2022 LIPID PANEL BASIC LIPID PANEL BASIC Lab Routine Type 2 diabetes mellitus without complication, without long-term current use of insulin (HCC) Expected: 05/01/2022, Expires: 07/01/2022 [facility] Work Phone: Comment on above: Expected: 05/01/2022, Expires: 2 Start: 05-01-2022 End: 07-01-2022 Magnesium [Mass/volume] in Serum or Plasma MAGNESIUM BLD Lab Routine Type 2 diabetes mellitus without complication, without long-term current use of insulin (HCC) Expected: 05/01/2022, Expires: 07/01/2022 [facility] Work Phone: Comment on above: Expected: 05/01/2022, Expires: Start: 05-01-2022 Following clinical pathway protocol [facility] Work Phone: Start: 05-01-2022 Assessment of risk of venous thromboembolism [facility] Work Phone: Start: 05-01-2022 Care regimes management [facility] Work Phone: Start: 05-01-2022 Insertion of catheter into peripheral vein [facility] Work Phone: Start: 05-01-2022 Providing care according to standard [facility] Work Phone: Start: 05-01-2022 Referral to occupational therapist [facility] Work Phone: Start: 05-01-2022 Referral to service [facility] Work Phone: Start: 05-01-2022 [facility] Work Phone: Start: 05-01-2022 Verification routine [facility] Work Phone: Start: 05-01-2022 Admission procedure [facility] Work Phone: Start: 05-01-2022 Inhalation therapy procedure [facility] Work Phone: Start: 04-30-2022 [facility] Work Phone: Start: 04-30-2022 End: 04-30-2022 Blood culture [facility] Work Phone: Start: 04-25-2022 Influenza vaccination [facility] Start: 2022 ADVANCE DIRECTIVE DISCUSSION ADVANCE DIRECTIVE DISCUSSION [facility] Start: 2022 BONE DENSITY BONE DENSITY [facility] Start: 2022 Bone Density Screening Bone Density Screening [facility] Start: 2022 Screening for osteoporosis Bone Density Screening [facility] Start: 03-21-2022 End: 05-21-2022 Comprehensive metabolic 2000 panel - Serum or Plasma COMP METABOLIC PANEL Lab Routine Low vitamin D level Serum calcium elevated Expected: 03/21/2022, Expires: 05/21/2022 [facility] Work Phone: Comment on above: Expected: 03/21/2022, Expires: 2 Start: 03-21-2022 End: 05-21-2022 PTH INTACT BLD PTH INTACT BLD Lab Routine Low vitamin D level Serum calcium elevated Expected: 03/21/2022, Expires: 05/21/2022 [facility] Work Phone: Comment on above: Expected: 03/21/2022, Expires: 2 Start: 03-21-2022 End: 05-21-2022 VITAMIN D 25 HYDROXY VITAMIN D 25 HYDROXY Lab Routine Low vitamin D level Serum calcium elevated Expected: 03/21/2022, Expires: 05/21/2022 [facility] Work Phone: Comment on above: Expected: 03/21/2022, Expires: 2 Start: 03-19-2022 COVID-19 VACCINE (2 - Booster for Moderna series) COVID-19 VACCINE (2 - Booster for Moderna series) [facility] Start: 03-19-2022 COVID-19 VACCINE (2 - Moderna series) COVID-19 VACCINE (2 - Moderna series) [facility] Start: 02-19-2022 COVID-19 VACCINE (2 - Moderna series) COVID-19 VACCINE (2 - Moderna series) [facility] Start: 02-16-2022 End: 04-18-2022 HEPATIC FUNCTION PNL HEPATIC FUNCTION PNL Lab Routine Hyperlipidemia, mixed Expected: 02/16/2022, Expires: 04/18/2022 [facility] Work Phone: Comment on above: Expected: 02/16/2022, Expires: 2 Start: 02-16-2022 End: 04-18-2022 LIPID PANEL BASIC LIPID PANEL BASIC Lab Routine Hyperlipidemia, mixed Expected: 02/16/2022, Expires: 04/18/2022 [facility] Work Phone: Comment on above: Expected: 02/16/2022, Expires: Start: 01-22-2022 Patient discharge [facility] Work Phone: Start: 01-22-2022 Consultation [facility] Work Phone: Start: 01-18-2022 Inhalation therapy procedure [facility] Work Phone: Start: 01-17-2022 Following clinical pathway protocol [facility] Work Phone: Start: 01-17-2022 Ambulation without limitation [facility] Work Phone: Start: 01-17-2022 Assessment of risk of venous thromboembolism [facility] Work Phone: Start: 01-17-2022 Care regimes management [facility] Work Phone: Start: 01-17-2022 Insertion of catheter into peripheral vein [facility] Work Phone: Start: 01-17-2022 Providing care according to standard [facility] Work Phone: Start: 01-17-2022 Referral to service [facility] Work Phone: Start: 01-17-2022 [facility] Work Phone: Start: 01-17-2022 Admission procedure [facility] Work Phone: Start: 01-17-2022 Bacteria identified in Blood by Culture Blood Culture [facility] Work Phone: Start: 01-17-2022 Bacteria identified in Urine by Culture Urine Culture [facility] Work Phone: Start: 01-17-2022 [facility] Work Phone: Start: 01-07-2022 End: 03-09-2022 CBC W Auto Differential panel - Blood CBC + DIFF Lab Routine Leukocytosis, unspecified type Expected: 01/07/2022, Expires: 03/09/2022 [facility] Work Phone: Comment on above: Expected: 01/07/2022, Expires: 2 Start: 01-05-2022 End: 03-07-2022 ALBUMIN/CREAT RATIO RND UR [facility] Work Phone: Comment on above: Expected: 01/05/2022, Expires: 2 Start: 01-05-2022 End: 03-07-2022 CBC W Auto Differential panel - Blood [facility] Work Phone: Comment on above: Expected: 01/05/2022, Expires: 2 Start: 01-05-2022 End: 03-07-2022 CBC W Ordered Manual Differential panel - Blood [facility] Work Phone: Comment on above: Expected: 01/05/2022, Expires: 2 Start: 01-05-2022 End: 03-07-2022 Hemoglobin A1c/Hemoglobin.total in Blood [facility] Work Phone: Comment on above: Expected: 01/05/2022, Expires: 2 Start: 01-02-2022 Bacteria identified in Urine by Culture Urine Culture [facility] Work Phone: Start: 12-18-2021 End: 02-17-2022 ALBUMIN/CREAT RATIO RND UR ALBUMIN/CREAT RATIO RND UR Lab Routine Uncontrolled type 2 diabetes mellitus with hyperglycemia (HCC) Expected: 12/18/2021, Expires: 02/17/2022 [facility] Work Phone: Comment on above: Expected: 12/18/2021, Expires: 2 Start: 12-18-2021 End: 02-17-2022 Bacteria identified in Urine by Culture [facility] Work Phone: Comment on above: Expected: 12/18/2021, Expires: 2 Start: 12-18-2021 End: 02-17-2022 CBC W Auto Differential panel - Blood [facility] Work Phone: Comment on above: Expected: 12/18/2021, Expires: 2 Start: 12-18-2021 End: 02-17-2022 Comprehensive metabolic 2000 panel - Serum or Plasma [facility] Work Phone: Comment on above: Expected: 12/18/2021, Expires: 2 Start: 12-18-2021 End: 02-17-2022 Lipase [Enzymatic activity/volume] in Serum or Plasma [facility] Work Phone: Comment on above: Expected: 12/18/2021, Expires: 2 Start: 12-18-2021 End: 02-17-2022 LIPID PANEL BASIC [facility] Work Phone: Comment on above: Expected: 12/18/2021, Expires: 2 Start: 12-18-2021 End: 02-17-2022 VITAMIN D 25 HYDROXY [facility] Work Phone: Comment on above: Expected: 12/18/2021, Expires: 2 Start: 09-01-2021 Hepatitis B screening URINE ALBUMIN:CREATININE RATIO [facility] Start: 09-01-2021 Hepatitis B surface antibody level LDL CHOLESTEROL [facility] Start: 04-25-2021 Influenza vaccination INFLUENZA (#1) [facility] Start: 03-25-2021 Hemoglobin A1c/Hemoglobin.total in Blood HBA1C [facility] Start: 05-18-2020 Mammography [facility] Start: 05-18-2020 Screening for malignant neoplasm of breast Mammogram Screening [facility] Start: 01-23-2020 PNEUMOCOCCAL (2 - PCV) PNEUMOCOCCAL (2 - PCV) [facility] Start: 01-23-2020 PNEUMOCOCCAL: 65+ (2 - PCV) PNEUMOCOCCAL: 65+ (2 - PCV) [facility] Start: 07-29-2019 Shingrix Vaccine (2 of 2) Shingrix Vaccine (2 of 2) [facility] Start: 04-12-2017 Glaucoma screening Dilated Retinal Exam [facility] Start: 04-12-2017 Hepatitis C antibody, confirmatory test DILATED RETINAL EXAM [facility] Start: 2017 Hepatitis B Vaccine (1 of 3 - Risk 3-dose series) Hepatitis B Vaccine (1 of 3 - Risk 3-dose series) [facility] Start: 2017 RSV Vaccine (1 - 1-dose 60+ series) RSV Vaccine (1 - 1-dose 60+ series) [facility] Start: 2017 RSV Vaccine (1 - Risk 60-74 years 1-dose series) RSV Vaccine (1 - Risk 60-74 years 1-dose series) [facility] Start: 2012 Influenza vaccination LUNG CANCER SCREENING [facility] Start: 2007 Influenza vaccination LUNG CANCER SCREENING [facility] Start: 2007 Screening for malignant neoplasm of lung Lung Cancer Screening [facility] Start: 2007 SHINGRIX VACCINE (1 of 2) SHINGRIX VACCINE (1 of 2) [facility] Start: 2002 COLOGUARD (FIT-DNA) COLOGUARD (FIT-DNA) [facility] Start: 2002 Colonoscopy COLONOSCOPY [facility] Start: 2002 COLORECTAL CANCER SCREENING COLORECTAL CANCER SCREENING [facility] Start: [address] COLONOGRAPHY [facility] Start: 2002 FECAL OCCULT BLOOD FECAL OCCULT BLOOD [facility] Start: 2002 Screening for malignant neoplasm of colon [facility] Start: 2002 SIGMOIDOSCOPY SIGMOIDOSCOPY [facility] Start: 1987 Zoledronic acid therapy ALPHA-1 ANTITRYPSIN DEFICIENCY SCREENING [facility] Start: 1976 Urine microalbumin profile [facility] Start: 1975 BP CONTROLLED (<130/80) BP CONTROLLED (<130/80) [facility] in Start: 1975 HIV SCREENING HIV SCREENING [facility] Start: 1962 COVID-19 VACCINE (#1) COVID-19 VACCINE (#1) [facility] Start: 1962 COVID-19 VACCINE (1) COVID-19 VACCINE (1) [facility] Bacteria identified in Blood by Culture Blood Culture [facility] Work Phone: Bacteria identified in Urine by Culture Urine Culture [facility] Bacteria identified in Urine by Culture URINE CULTURE Microbiology Routine Dysuria 03/23/2024 1:28 PM EDT [facility] Work Phone: Bacteria identified in Urine by Culture BACTERIAL CULTURE, URINE Microbiology Routine Recurrent UTI (urinary tract infection) 03/01/2025 10:58 AM EDT [facility] End: 08-25-2025 BD DXA TRABECULAR BONE SCORE (TBS) BD DXA TRABECULAR BONE SCORE (TBS) Radiology Routine Screening for osteoporosis Asymptomatic menopause 1 Occurrences starting 07/26/2024 until 08/25/2025 [facility] Comment on above: 1 Occurrences starting 07/26/2024 until 08/25/2025 Blood culture [facility] Work Phone: End: 04-16-2025 DBT Breast - bilateral screening JANELL SCREENING W KOKO Radiology Routine Encounter for screening mammogram for breast cancer 1 Occurrences starting 03/17/2024 until 04/16/2025 [facility] Work Phone: Comment on above: 1 Occurrences starting 03/17/2024 until 04/16/2025 End: 03-17-2026 DBT Breast - bilateral screening JANELL SCREENING W K[facility] Radiology Routine Encounter for screening mammogram for breast cancer 1 Occurrences starting 02/15/2025 until 03/17/2026 [facility] Work Phone: Comment on above: 1 Occurrences starting 02/15/2025 until 03/17/2026 End: 08-25-2025 DXA Skeletal system.axial Views for bone density DXA-AXIAL SKELETON Radiology Routine Screening for osteoporosis Asymptomatic menopause 1 Occurrences starting 07/26/2024 until 08/25/2025 [facility] Work Phone: Comment on above: 1 Occurrences starting 07/26/2024 until 08/25/2025 End: 05-14-2024 DXA-AXIAL SKELETON DXA-AXIAL SKELETON Radiology Routine Asymptomatic postmenopausal status 1 Occurrences starting 04/15/2023 until 05/14/2024 [facility] Work Phone: Comment on above: 1 Occurrences starting 04/15/2023 until 05/14/2024 End: 12-18-2022 ECG COMPLETE ECG COMPLETE ECG Routine Intermittent chest pain 1 Occurrences starting 12/18/2021 until 12/18/2022 [facility] Work Phone: Comment on above: 1 Occurrences starting 12/18/2021 until 12/18/2022 Hemoglobin.gastroint odalis nal.lower [Presence] in Stool by Immunoassay FECAL OCCULT BLOOD TEST Lab Routine Screening for colon cancer Ordered: 01/29/2022 [facility] Work Phone: Comment on above: Ordered: 01/29/2022 Hemoglobin.gastroint odalis nal.lower [Presence] in Stool by Immunoassay FECAL OCCULT BLOOD TEST Lab Routine Screening for colon cancer Ordered: 04/15/2023 [facility] Work Phone: Comment on above: Ordered: 04/15/2023 Hemoglobin.gastroint odalis nal.lower [Presence] in Stool by Immunoassay IMMUNOCHEMICAL FECAL OCCULT BLOOD TEST Lab Routine Screening for colon cancer Ordered: 07/26/2024 [facility] Comment on above: Ordered: 07/26/2024 HEPATIC FUNCTION PNL HEPATIC FUN CTION PNL Lab Routine Hyperlipidemia, mixed 01/05/2022 11:11 AM EDT [facility] Work Phone: Influenza virus A an d B RNA and SARS-CoV-2 (COVID-19) N gene panel - Respiratory specimen by CONNOR with probe detection COVID WITH FLUA+B, ROUTINE Microbiology Routine Suspected COVID-19 virus infection Ordered: 12/18/2021 [facility] Work Phone: Comment on above: Ordered: 12/18/2021 LIPID PANEL BASIC LIPID PANEL BA SIC Lab Routine Hyperlipidemia, mixed 01/05/2022 11:11 AM EDT [facility] Work Phone: End: 01-10-2024 JANELL SCREENING JANELL SCREENING Radiology Routine Encounter for screening mammogram for breast cancer 1 Occurrences starting 12/11/2022 until 01/10/2024 [facility] Work Phone: Comment on above: 1 Occurrences starting 12/11/2022 until 01/10/2024 End: 05-14-2024 JANELL SCREENING JANELL SCREENING Radiology Routine Visit for screening mammogram 1 Occurrences starting 04/15/2023 until 05/14/2024 [facility] Work Phone: Comment on above: 1 Occurrences starting 04/15/2023 until 05/14/2024 Patient Education [facility] Work Phone: Patient referral [facility] Work Phone: End: 01-17-2023 Radiologic exam chest 2 views XR CHEST 2V FRONTAL/LAT Radiology Routine SOB (shortness of breath) Mixed simple and mucopurulent chronic bronchitis (HCC) Tobacco use disorder 1 Occurrences starting 12/18/2021 until 01/17/2023 [facility] Work Phone: Comment on above: 1 Occurrences starting 12/18/2021 until 01/17/2023 SARS-CoV-2 (COVID-19 ) RNA [Presence] in Respiratory specimen by CONNOR with probe detection 2019 CORONAVIRUS Microbiology Routine Suspected COVID-19 virus infection Ordered: 12/18/2021 [facility] Work Phone: Comment on above: Ordered: 12/18/2021 End: 02-04-2023 Screening mammography bi 2-view breast inc cad JANELL SCREENING Radiology Routine Screening breast examination 1 Occurrences starting 01/05/2022 until 02/04/2023 [facility] Work Phone: Comment on above: 1 Occurrences starting 01/05/2022 until 02/04/2023 End: 12-22-2022 SPIROMETRY BASELINE ONLY [facility] Work Phone: Comment on above: 1 Occurrences starting 11/22/2021 until 12/22/2022 Urinalysis complete panel - Urine URINALYSIS, WITH MICROSCOPIC Lab Routine Fatigue, unspecified type Urinary frequency 12/18/2021 12:01 PM EDT [facility] Work Phone: Urinalysis complete panel - Urine URINALYSIS, WITH MICROSCOPIC Lab Routine Dysuria 03/23/2024 1:28 PM EDT [facility] Immunizations Immunization Date Immunization Notes Care Provider Graeme heart 07-26-2024 influenza, high dose seasonal, preservative-free Smiley Suppan COURT MESSENGER.LINE THERAPIST Work Phone: [facility] 07-26-2024 influenza virus vaccine, unspecified formulation Smiley Suppan COURT MESSENGER.LINE THERAPIST Work Phone: [facility] 04-15-2023 pneumococcal (PCV20) vaccine, 20 valent (PREVNAR 20) Nanci Huber COURT MESSENGER.LINE THERAPIST Work Phone: [facility] 04-15-2023 pneumococcal Conjuga te, unspecified formulation Nanci Haagen COURT MESSENGER.LINE THERAPIST Work Phone: [facility] Work Phone: 01-22-2022 Covid (Moderna) Dr. Ricci Cole Work Phone: [facility] 06-13-2019 influenza, injectabl e, quadrivalent, contains preservative Joyce Perry PA-C Work Phone: [facility] Work Phone: 06-13-2019 influenza virus vaccine, unspecified formulation Ricci Cole MD Work Phone: [facility] 06-03-2019 influenza, injectabl e, quadrivalent, preservative free Smiley Suppan COURT MESSENGER.LINE THERAPIST Work Phone: [facility] 06-03-2019 zoster vaccine recombinant Smiley Suppan COURT MESSENGER.LINE THERAPIST Work Phone: [facility] 01-22-2019 pneumococcal polysaccharide vaccine, 23 valent Jocye Perry PA-C Work Phone: [facility] 06-30-2018 influenza, injectabl e, quadrivalent, contains preservative Joyce Orlando PA-C Work Phone: [facility] Work Phone: 04-09-2016 influenza, seasonal, injectable Smiley Suppan COURT MESSENGER.LINE THERAPIST Work Phone: [facility] 06-18-2013 Influenza virus vaccine [facility] 06-18-2013 influenza, seasonal, injectable, preservative free Smiley Suppan COURT MESSENGER.LINE THERAPIST Work Phone: [facility] 04-25-2013 pneumococcal polysaccharide vaccine, 23 valent Joyce Perry PA-C Work Phone: [facility] Work Phone: 04-25-2013 Pneumococcal Vaccine [facility] Work Phone: 04-25-2013 pneumococcal vaccine , unspecified formulation [facility] Payers Date Payer Category Payer Self-pay [id number] 2025 Medicare (Managed Care) [employer] HMO [id number] 2025 Medicare [id number] 2014 Medicaid MEDICAID [facility] MEDICAID [id number] 2014-Present [phone] [address] [place] [address] Medicaid [id number] 2014 Medicaid [id number] 2014 Medicaid [id number] 2009 Medicare MEDICARE MEDICAR E A AND B [id number] 2009-Present [phone] [place] [address] Medicare [id number] 2009 Medicare [id number] 2009 Medicare [id number] 1955 Unknown [id number] 1955 Unknown [id number] Unknown [id number] Social History Date Type Detail Facility Start: 08-20-2019 End: 04-29-2024 Tobacco smoking status NHIS Occasional tobacco smoker [facility] History of tobacco use Cigarette Smoker C [facility] Start: 08-20-2019 End: 04-01-2023 Cigarettes smoked current (pack per day) - Reported 1 [facility] Start: 08-20-2019 End: 04-29-2024 Tobacco use and exposure Smokeless tobacco non-user [facility] Start: 11-22-2021 End: 05-06-2025 Alcohol intake Current non-drinker of alcohol (finding) [facility] Start: 01-04-2020 End: 06-01-2020 History SDOH Alcohol Frequency 1 [facility] Start: 05-27-2019 History SDOH Social Connections Phone 5 [facility] Start: 05-27-2019 History SDOH Social Connections Living 3 [facility] Start: 01-04-2020 History SDOH Food Worry 2 [facility] Start: 02-29-2020 End: 04-15-2023 Tobacco Comment 3 cigarettes daily? [facility] Start: 1955 Sex Assigned At Not on file C [facility] Start: 06-27-2020 End: 04-01-2022 Exposure to SARS-CoV-2 (event) Not sure [facility] Start: 01-02-2022 End: 08-06-2023 Tobacco smoking status AKIS Unknown if ever smoked [facility] Start: 03-29-2014 None [facility] Start: 01-09-2019 Spouse/ Signif icant Other [facility] Start: 08-15-2020 Cigarettes [facility] Start: 1955 Sex Assigned At Female [facility] Start: 04-23-2022 End: 05-28-2022 Exposure to SARS-CoV-2 (event) Unable to assess [facility] Work Phone: Start: 05-27-2019 End: 04-01-2023 Social connection and isolation panel [facility] Start: 07-26-2012 Attends [employer] Not on file [facility] Are you now , , , , never or living with a partner? [facility] How often to you hav e a drink containing alcohol? Never [facility] Work Phone: Do you feel stress - tense, restless, nervous, or anxious, or unable to sleep at night because your mind is troubled all the time - these days [OSQ] Very much [facility] (I/We) worried [facility] (my/our) food would run out before (I/we) got money to buy more. Sometimes true [facility] Work Phone: Start: 05-15-2025 [facility] daily (finding) [facility] Medical Equipment Procedure Code Equipment Code Equipment Original Text Equipment Identifier Dates [id number], [id number], [id number], [id number], [id number], [id number], [id number], [id number], [id number], [id number], [id number], [id number], [id number], [id number], [id number], [id number], [id number] Start: 04-03-2020 End: 03-01-2025 Comment on above: Test blood sugar(s) 3 daily. Dx: Type 2 DM - Uncontrolled E11.65 Insulin: Yes Use four times daily with insulin TEST BLOOD SUGARS 3 TIMES A DAY, E11.9 Use one needle for e ach dose, 4 times daily. (4mm) Test blood sugar(s) 3-4 times daily. Dx: Type 2 DM - Controlled E11.9 Insulin: Yes Test blood sugar(s) 3-4 times daily. Dx: Type 2 DM-Controlled Insulin: Yes Goals Date Patient Goal Desired Activity /State Personal health goal Comment on above: Formatting of this n ote might be different from the original. Decrease smoking frequency. Personal health goal Comment on above: Formatting of this n ote might be different from the original. Patient has the following High Blood Pressure/Hypertension Goals: Two PCP Visits annually, Nurse / pharmacist / KRA visit within 4 weeks after PCP visit with uncontrolled BP (>140/90), BMP annually, and Patients specific blood pressure target:130/80 HTN Education given and reviewed with patient --sent on 07/22/23 Medication compliance education, Advise / educate patient to ask for repeat BP check at any appointment if first BP is >140/90, Checking your Blood Pressure at Home, High Blood Pressure: Talking to Your Health Care Provider, High Blood Pressure - When to Seek Emergency Care, High Blood Pressure and Nutrition, Your Sodium-Controlled Diet, and Hypertension Treatment Overview Patient will meet these goals by 08/24/2024 (describe interventions done by PCC) Comment on above: Formatting of this n ote might be different from the original. Comment on above: Formatting of this n ote might be different from the original. Smoke only half pack cigarettes a day Comment on above: Formatting of this n ote might be different from the original. Decrease smoking frequency. Functional Status Date Assessment Result Facility 08-06-2023 Functional status Ambulates [facility] Work Phone: 05-03-2022 Functional status Ambulates [facility] Work Phone: 01-22-2022 Functional status Up ad beena;Bath room Privilege [facility] Work Phone: 03-10-2015 Are you deaf, or do you have serious difficulty hearing No 03/10/2015 10:55 AM Maricarmen Degroot LPN No [facility] 03-10-2015 Are you blind, or do you have serious difficulty seeing, even when wearing glasses Yes 03/10/2015 10:55 AM Maricarmen Degroot LPN Yes [facility] 03-10-2015 Do you have serious difficulty walking or climbing stairs Yes 03/10/2015 10:55 AM Maricarmen Degroot LPN Yes [facility] 03-10-2015 Do you have difficul ty dressing or bathing No 03/10/2015 10:55 AM Maricarmen Degroot LPN No [facility] 03-10-2015 Because of a physica l, mental, or emotional condition, do you have difficulty doing errands alone such as visiting a physician's office or shopping No 03/10/2015 10:55 AM Maricarmen Degroot LPN No [facility] Mental Status Date Assessment Result Facility 05-15-2025 Cognitive function Level Of Cons ciousness Awake [facility] Work Phone: 08-06-2023 Cognitive function Voice/Name [facility] Work Phone: 11-14-2022 Cognitive function Level Of Cons ciousness Awake;Alert;Appropriate;Fol lows Commands [facility] Work Phone: 06-12-2022 Cognitive function Voice/Name [facility] Work Phone: 05-10-2022 Cognitive function Awake;Alert;A ppropriate;Fol lows Commands [facility] Work Phone: 05-09-2022 Cognitive function Voice/Name [facility] Work Phone: 05-08-2022 Cognitive function Voice/Name [facility] Work Phone: 05-07-2022 Cognitive function Awake;Alert;A ppropriate;Fol lows Commands [facility] Work Phone: 05-06-2022 Cognitive function Awake;Alert;A ppropriate;Fol lows Commands [facility] Work Phone: 05-03-2022 Cognitive function Voice/Name [facility] Work Phone: 01-22-2022 Cognitive function Voice/Name [facility] Work Phone: 03-10-2015 Because of a physica l, mental, or emotional condition, do you have serious difficulty concentrating, remembering, or making decisions No 03/10/2015 10:55 AM Maricarmen Degroot LPN No [facility] Clinical Notes 07-27-2020 to 06-08-2025 Telephone Encounter - Ana Lam MA - 05/10/2025 4:26 PM EDTTelephone Encounter - Ana Lam MA - 05/10/2025 4:26 PM EDTPatient InstructionsPatient InstructionsPatient Instructions Note Date & Type Note Facility 06-08-2025 Note HNO ID: [id number] Author: LOU OSMAN MA Service: ? Author Type: Energy Scheduler Type: Progress Notes Filed: 06/08/2025 14:00 Note Text: POPULATION HEALTH NAVIGATION OUTREACH Action/ Updated appointment note HCC Topic Due (Y or N) Comments Medicare Wellness Y PCP Follow up Colorectal Cancer Screening Y Controlling Blood Pressure A1C HCC y Flu Vaccine Care Everywhere Reviewed MyChart Activation Updated Appointment Note NU Y MAMMOGRAMS Reason for Outreach Care Gap/HCC or Scheduling Wellness Visits Care Gaps due: Medicare Annual Wellness Visit Breast Cancer Screening Colorectal Cancer Screening Diabetic Eye Exam Patient Contacted: Unable or unnecessary to reach patient: HCC related Patient already scheduled Updated appointment notes Navigation Signature: Lou Osman MA June 08, 2025 1:57 PM [facility] 06-08-2025 Note Patient Outreach (NE TNAV) IVET VALERO ([id number]) 1955 F Date Time Provider Department 06/08/25 LOU OSMAN NETNAV During your visit today, we recorded the following information about you: Lou sOman MA 06/08/2025 2:00 PM Signed POPULATION HEALTH NAVIGATION OUTREACH Action/FYI Updated appointment note HCC Topic Due (Y or N) Comments Medicare Wellness Y PCP Follow up Colorectal Cancer Screening Y Controlling Blood Pressure A1C HCC y Flu Vaccine Care Everywhere Reviewed MyChart Activation Updated Appointment Note NU Y MAMMOGRAMS Reason for Outreach Care Gap/HCC or Scheduling Wellness Visits Care Gaps due: Medicare Annual Wellness Visit Breast Cancer Screening Colorectal Cancer Screening Diabetic Eye Exam Patient Contacted: Unable or unnecessary to reach patient: HCC related Patient already scheduled Updated appointment notes Navigation Signature: Lou Osman MA June 08, 2025 1:57 PM Allergies As of Date: 06/08/2025 Noted Allergy Reaction CHANTIX (VARENICLINE) 01/22/2019 1 - Mental Status Change PENICILLINS 05/25/2008 4 - Hives SULFA (SULFONAMIDE ANTIBIOTICS) 09/19/2016 2 - Rash 14 - Other: See Comments Comments: Blisters and sore in throat Date Reviewed: 03/29/2025 Reviewed by: Marylu Yeung MA - Fully Assessed Reason for Visit: Population Health Navigation Outreach [3910] Cmt: LARY WORKBEPARI JOHNSON PCSA Prescriptions as of 06/08/2025 - omeprazole (PRILOSEC) 40 mg capsule Take 1 capsule by mouth once daily. - promethazine (PHENERGAN) 25 mg tablet Take 1 tablet by mouth every 6 hours as needed for nausea/vomiting. - Insulin [place], Disposable, (BD ULTRA-FINE MINDY PEN NEEDLE) 32 gauge x 5/32 Use one needle for each dose, 4 times daily. (4mm) - albuterol (PROVENTIL) 2.5 mg /3 mL (0.083 %) nebulizer solution Use 3 mL via nebulizer every 4 hours as needed for wheezing/shortness of breath. Use over 5-15minutes. - albuterol HFA (VENTOLIN HFA) 90 mcg/actuation inhaler Inhale 2 puffs as instructed every 4 hours as needed. - insulin glargine U-300 conc (TOUJEO) 300 unit/mL (1.5 mL) Inject 80 Units subcutaneously every morning. E11.9 Dispense 2 boxes of 3 pens. - mixetongnbz-ndtfnusjh-xuhnntuy (TRELEGY ELLIPTA) 200-62.5-25 mcg inhalation powder Inhale 1 puff as instructed once daily. - lisinopril 2.5 mg tablet Take 1 tablet by mouth once daily. For kidney protection - ergocalciferol 50,000 unit capsule (VITAMIN D2, DRISDOL) Take 1 capsule by mouth every other week. - Cyanocobalamin 1,000 mcg TbER Take 1 tablet by mouth once daily. B12 - nystatin (MYCOSTATIN) powder Apply 1 application to affected area four times daily. - Blood-Glucose Meter monitoring kit Glucose Meter of Choice - Kit - Dx: Type 2 DM - Uncontrolled E11.65 - blood sugar diagnostic (FREESTYLE LITE STRIPS) test strip Test blood sugar(s) 3-4 times daily. Dx: Type 2 DM - Uncontrolled E11.65 Insulin: Yes - rosuvastatin (CRESTOR) 5 mg tablet Take 1 tablet by mouth once daily. - gabapentin (NEURONTIN) 400 mg capsule Take 1 capsule by mouth three times a day for 90 days. - Lancets Test blood sugar(s) 3-4 times daily. Dx: Type 2 DM-Controlled Insulin: Yes - blood sugar diagnostic (BLOOD GLUCOSE TEST) test strip Test blood sugar(s) 3-4 times daily. Dx: Type 2 DM - Controlled E11.9 Insulin: Yes - insulin lispro (HUMALOG KWIKPEN INSULIN) 100 unit/mL Inject 12 Units subcutaneously three times a day before meals. And sliding scale up to 38 units tid. - busPIRone (BUSPAR) 10 mg tablet Take 1 tablet by mouth three times daily. - escitalopram oxalate (LEXAPRO) 20 mg tablet Take 10 mg by mouth once daily. - buPROPion XL (WELLBUTRIN XL) 150 mg 24 hr tablet Take 300 mg by mouth once daily. - Insulin [place], Disposable, 32 gauge x 5/16 ndle Use four times daily with insulin - QUEtiapine XR (SEROQUEL XR) 300 mg 24 hr tablet Take 300 mg by mouth daily at bedtime. - Blood Pressure Monitor EXLARGE BLOOD PRESSURE CUFF MONITOR KIT checking bp 4 times daily Problem List As Of Date 06/08/2025 Noted Resolved TOBACCO USE DISORDER [F17.200] CERVICAL DISC DEGEN [M50.30] Chronic bronchitis (HCC) [J42] Depressive disorder, not elsewhere classified [* 01/05/2022 Persistent disorder of initiating or maintainin*05/25/2008 01/05/2022 Migraine with aura [G43.109] PANIC DISORDER WITHOUT AGORAPHOBIA [F41.0] Fibromyalgia [M79.7] History of recurrent UTIs [Z87.440] 11/30/2015 Uncontrolled type 2 diabetes mellitus with hype* Secondary polycythemia [D75.1] 09/10/2017 Depression, major, recurrent, in complete remis*07/23/2018 Hyperlipidemia, mixed [E78.2] 02/01/2019 Chronic cough [R05.3] 01/04/2020 01/05/2022 Obesity, Class II, BMI 35-39.9 [E66.812] 02/29/2020 SOB (shortness of breath) [R06.02] 08/23/2020 01/05/2022 Acute bronchitis with chroni (more content not included)... [facility] 05-15-2025 Discharge summary [facility] 05-15-2025 Radiology Diagnostic study note [facility] Imaging Services [address] [place] [address] Chest without Contrast MR#: [id number] Acct: [id number] Name: IVET VALERO Rep #: [id number] : 1955 F 70 From: Tay Leon MD PCP: Dr. Ricci Cole MD Status: REG E R Study:Chest without Contrast Date of Exam: 05/15/25 Exam# [id number] Ordering Dr: Yahaira Quinn DO PROCEDURE: CHEST WITHOUT CONTRAST 05/14/2025 REASON FOR EXAM: ? LEFT RIB FX TECHNIQUE: Chest CT without contrast. Coronal and Sagittal reconstruction series were provided. One or more dose reduction techniques were used (e.g., Automated exposure control, adjustment of the mA and/or kV according to patient size, use of iterative reconstruction technique COMPARISON: Chest x-ray 08/04/2023 FINDINGS: Hardware: None. Lymph nodes: No enlarged mediastinal, hilar, or axillary lymph nodes. Heart and Vasculature: Not enlarged. No pericardial effusion. Thoracic aorta and pulmonary arteries have normal contours; noncontrast technique limits evaluation. Lungs and Airways: Bilateral dependent atelectasis. No definite focal consolidation or significant pulmonary mass. Airways are patent. Pleura: No pneumothorax or pleural effusion. Upper Abdomen: Left renal cyst measures 3.5 x 3.0 cm. Mild atrophy of the pancreas. Visualized upper abdomen otherwise unremarkable. Bones: Degenerative changes and kyphosis of the thoracic spine. CT/Chest without Contrast IMPRESSION: 1. No acute findings in the chest as imaged. 2. No rib fractures identified. 3. Left renal cyst measures 3.5 cm. Reading Location: [facility] CC: Dr. Ricci Cole MD; Bhavin Quinn DO ~ [employer]: Signed [facility] 05-15-2025 Radiology Diagnostic study note [facility] Imaging Services [address] [place] [address] Brain/Head without Contrast MR#: [id number] Acct: [id number] Name: IVET VALERO Rep #: [id number] : 1955 F 70 From: Tay Leon MD PCP: Dr. Ricci Cole MD Status: REG E R Study:Brain/Head without Contrast Date of Exa m: 05/15/25 Exam# [id number] Ordering Dr: Yahaira Quinn DO PROCEDURE: BRAIN/HEAD WITHOUT CONTRAST 05/14/2025 REASON FOR EXAM: FALL TECHNIQUE: Procedure Code: CTBR Modality: CT Procedure: BRAIN/HEAD WITHOUT CONTRAST Coronal and Sagittal reconstruction series were provided. One or more dose reduction techniques were used (e.g., Automated exposure control, adjustment of the mA and/or kV according to patient size, use of iterative reconstruction technique. COMPARISON: 04/30/2022 FINDINGS: There is no extra-axial or intra-axial intracranial hemorrhage. No mass effect or midline shift is seen. Generalized intracranial volume loss and findings compatible with chronic microvascular white matter ischemia. There is normal enamorado-white matter differentiation. The posterior fossa is grossly unremarkable. The skull is unremarkable. Visualized paranasal sinuses are clear. The mastoid air cells show normal translucency. CT/Brain/Head without Contrast IMPRESSION: 1. No intracranial hemorrhage. No mass effect or midline shift. 2. Chronic involutional and ischemic gliotic white matter changes. Reading Location: [facility] CC: Dr. Ricci Cole MD; Bhavin Quinn DO ~ [employer]: Signed [facility] 05-10-2025 Telephone encounter Note PA for phenergan suppository approved till 05/10/26. Patient was notified Ana Lam MA [facility] 05-10-2025 Miscellaneous Notes PA for phenergan suppository approved till 05/10/26. Patient was notified Ana Lam MA Megha HERNANDEZ Bankruptcy Paralegal with [facility] called I about Pt's insurance PA for the Phenergan suppository. The Reference # is [id number], she states they will fax the recommendation within 24 hours to providers fax #. Diane Guillermo RN documented in this encounter [facility] 05-10-2025 Telephone encounter Note A prescription for 20 tablets with 2 refills was sent to pharmacy on 04/04/25. Per pharm dispense report, rx was filled and dispensed on 04/05/25, 04/08/25, 04/13/25. Kash Ledesma LPN [facility] 05-10-2025 Miscellaneous Notes A prescription for 20 tablets with 2 refills was sent to pharmacy on 04/04/25. Per pharm dispense report, rx was filled and dispensed on 04/05/25, 04/08/25, 04/13/25. Kash Ledesma LPN Prescription Refill Information The patient has been identified by name and date of : Yes Caregiver verified no other encounters exist for this prescription request: Yes Caregiver confirmed with patient/requestor that no other refills are due, in the near future, with this provider at this time: Yes The last office visit in the department: 05/06/2025 Does the patient have a future office visit with this provider/department: Yes Requested Prescriptions Pending Prescriptions Disp Refills promethazine (PHENERGAN) 25 mg tablet 20 tablet 2 Sig: Take 1 tablet by mouth every 6 hours as needed for nausea/vomiting. [facility] May 10, 2025 2:12 PM documented in this encounter [facility] 05-10-2025 Telephone encounter Note Prescription Refill Information The patient has been identified by name and date of : Yes Caregiver verified no other encounters exist for this prescription request: Yes Caregiver confirmed with patient/requestor that no other refills are due, in the near future, with this provider at this time: Yes The last office visit in the department: 05/06/2025 Does the patient have a future office visit with this provider/department: Yes Requested Prescriptions Pending Prescriptions Disp Refills promethazine (PHENERGAN) 25 mg tablet 20 tablet 2 Sig: Take 1 tablet by mouth every 6 hours as needed for nausea/vomiting. [facility] May 10, 2025 2:12 PM [facility] 05-10-2025 Telephone encounter Note Prescription Refill Information The patient has been identified by name and date of : Yes Caregiver verified no other encounters exist for this prescription request: Yes Caregiver confirmed with patient/requestor that no other refills are due, in the near future, with this provider at this time: Yes The last office visit in the department: 05-06-25 Does the patient have a future office visit with this provider/department: Yes Requested Prescriptions Pending Prescriptions Disp Refills omeprazole (PRILOSEC) 40 mg capsule 90 capsule 0 Sig: Take 1 capsule by mouth once daily. Tyra Greer May 10, 2025 2:07 PM [facility] 05-10-2025 Miscellaneous Notes Prescription Refill Information The patient has been identified by name and date of : Yes Caregiver verified no other encounters exist for this prescription request: Yes Caregiver confirmed with patient/requestor that no other refills are due, in the near future, with this provider at this time: Yes The last office visit in the department: 05-06-25 Does the patient have a future office visit with this provider/department: Yes Requested Prescriptions Pending Prescriptions Disp Refills omeprazole (PRILOSEC) 40 mg capsule 90 capsule 0 Sig: Take 1 capsule by mouth once daily. Tyra Greer May 10, 2025 2:07 PM documented in this encounter [facility] 05-10-2025 Telephone encounter Note Megha HERNANDEZ Bankruptcy Paralegal with [employer] called I about Pt's insurance PA for the Phenergan suppository. The Reference # is [id number], she states they will fax the recommendation within 24 hours to providers fax #. Diane Guillermo RN [facility] 05-06-2025 Instructions Smiley Melo APRN.CNP - 05/06/2025 9:13 AM EDT - Use a Phenergan suppository to control nausea and vomiting so you can keep fluids down. - Once vomiting is controlled, drink plenty of fluids (water or oral rehydration drinks) to stay hydrated. - After you re able to tolerate fluids, take Tylenol as needed for headaches, body aches, or fever. - When you re fully recovered, you may get your flu shot here in the office or at a pharmacy. - Obtain your shingles and RSV vaccines at a pharmacy once you re no longer sick. - Labs and abdominal Xray when feeling better documented in this encounter [facility] 05-06-2025 Note HNO ID: [id number] Author: SMILEY MELO APRN.CNP Service: ? Author Type: Nurse Practitioner Type: Progress Notes Filed: 05/06/2025 09:13 Note Text: This is a 70 year old female who presents today with: Patient presents with: Follow Up: 3 month exam HISTORY OF PRESENT ILLNESS: Ivet Valero is a 70 year old female. Patient presents with: Follow Up: 3 month exam DM: Reports overall feeling well. Medication side effects: No. Home sugar checks: The same Hypoglycemic spells: No. Watching diet: Yes. Unexpected weight loss: No. Polyuria, polydipsia: Yes. Vision Changes: a little. Foot lesions or numbness or pain: No. The patient is a 70-year-old female with diabetes mellitus, presenting for evaluation of acute intractable vomiting, nausea, and cough. Nausea and Emesis: - Ivet Valero reports an acute onset of nausea and emesis, with 5 hours of continuous vomiting last night. - Ivet describes emesis as dry heaves and congestion. - Ivet took Phenergan last night with no relief. - Ivet is currently able to drink fluids. - Ivet denies history of bowel obstruction. Cough: - Ivet reports an acute onset of croupy cough. - Ivet denies dyspnea or wheezing. Diabetes: - Ivet is monitoring blood glucose levels at home; forgot to bring glucometer today. - Ivet denies recent hypoglycemic episodes. - Ivet adheres to dietary recommendations. - Ivet denies recent weight loss. - Ivet reports polyuria and polydipsia. - Ivet has mild blurred vision; not currently driving. - Ivet denies paresthesia in feet. 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 Depressive disorder, not elsewhere classified DM (diabetes mellitus) (HCC) Fibromyalgia Migraine with aura, without mention of intractable migraine without mention of status migrainosus Panic disorder without agoraphobia had hx of failed urine screen Recurrent UTI Tobacco use disorder PAST SURGICAL HISTORY Procedure Laterality Date CHOLECYSTECTOMY ESOPHAGOGASTRODUODENOSCOPY TRANSORAL DIAGNOSTIC 12/06/2015 EGD LIG/TRNSXJ FLP TUBE ABDL/VAG APPR UNI/BI Tubal ligation PAST SURGICAL HISTORY OF Left 03/2014 ANKLE FRACTURE REPAIR S SLING BLADDER 2012 AND TOTAL ABDOMINAL HYSTERECT W/WO RMVL TUBE OVARY Hysterectomy, REJI ALLERGIES Chantix [Varenicline], Penicillins, and Sulfa (Sulfonamide Antibiotics) MEDICATIONS Current Outpatient Medications Medication Sig promethazine (PHENERGAN) 25 mg tablet Take 1 tablet by mouth every 6 hours as needed for nausea/vomiting. Insulin [place], Disposable, (BD ULTRA-FINE MINDY PEN NEEDLE) 32 gauge x 5/32 Use one needle for each dose, 4 times daily. (4mm) albuterol (PROVENTIL) 2.5 mg /3 mL (0.083 %) nebulizer solution Use 3 mL via nebulizer every 4 hours as needed for wheezing/shortness of breath. Use over 5-15minutes. albuterol HFA (VENTOLIN HFA) 90 mcg/actuation inhaler Inhale 2 puffs as instructed every 4 hours as needed. insulin glargine U-300 conc (TOUJEO) 300 unit/mL (1.5 mL) Inject 80 Units subcutaneously every morning. E11.9 Dispense 2 boxes of 3 pens. eglebscwtmv-ypnhgszoo-ntlmhxqk (TRELEGY ELLIPTA) 200-62.5-25 mcg inhalation powder Inhale 1 puff as instructed once daily. lisinopril 2.5 mg tablet Take 1 tablet by mouth once daily. For kidney protection ergocalciferol 50,000 unit capsule (VITAMIN D2, DRISDOL) Take 1 capsule by mouth every other week. Cyanocobalamin 1,000 mcg TbER Take 1 tablet by mouth once daily. B12 nystatin (MYCOSTATIN) powder Apply 1 application to affected area four times daily. Blood-Glucose Meter monitoring kit Glucose Meter of Choice - Kit - Dx: Type 2 DM - Uncontrolled E11.65 blood sugar diagnostic (FREESTYLE LITE STRIPS) test strip Test blood sugar(s) 3-4 times daily. Dx: Type 2 DM - Uncontrolled E11.65 Insulin: Yes rosuvastatin (CRESTOR) 5 mg tablet Take 1 tablet by mouth once daily. gabapentin (NEURONTIN) 400 mg capsule Take 1 capsule by mouth three times a day for 90 days. Lancets Test blood sugar(s) 3-4 times daily. Dx: Type 2 DM-Controlled Insulin: Yes blood sugar diagnostic (BLOOD GLUCOSE TEST) test strip Test blood sugar(s) 3-4 times daily. Dx: Type 2 DM - Controlled E11.9 Insulin: Yes omeprazole (PRILOSEC) 40 mg capsule Take 1 capsule by mouth once daily. insulin lispro (HUMALOG KWIKPEN INSULIN) 100 unit/mL Inject 12 Units subcutaneously three times a day before meals. And sliding scale up to 38 units tid. busPIRone (BUSPAR) 10 mg tablet Take 1 tablet by mouth three times daily. escitalopram oxalate (LEXAPRO) 20 mg tablet Take 10 mg by mouth once daily. buPROPion XL (WELLBUTRIN XL) 150 mg 24 hr tablet Take 300 mg by mouth once daily. Insulin [place], Disposable, 32 gauge x 5/16 ndle U (more content not included)... [facility] 05-06-2025 History of Present illness Narrative This is a 70 year old female who presents today with: Patient presents with: Follow Up: 3 month exam HISTORY OF PRESENT ILLNESS: Ivet Valero is a 70 year old female. Patient presents with: Follow Up: 3 month exam DM: Reports overall feeling well. Medication side effects: No. Home sugar checks: The same Hypoglycemic spells: No. Watching diet: Yes. Unexpected weight loss: No. Polyuria, polydipsia: Yes. Vision Changes: a little. Foot lesions or numbness or pain: No. The patient is a 70-year-old female with diabetes mellitus, presenting for evaluation of acute intractable vomiting, nausea, and cough. Nausea and Emesis: - Ivet Valero reports an acute onset of nausea and emesis, with 5 hours of continuous vomiting last night. - Ivet describes emesis as dry heaves and congestion. - Ivet took Phenergan last night with no relief. - Ivet is currently able to drink fluids. - Ivet denies history of bowel obstruction. Cough: - Ivet reports an acute onset of croupy cough. - Ivet denies dyspnea or wheezing. Diabetes: - Ivet is monitoring blood glucose levels at home; forgot to bring glucometer today. - Ivet denies recent hypoglycemic episodes. - Ivet adheres to dietary recommendations. - Ivet denies recent weight loss. - Ivet reports polyuria and polydipsia. - Ivet has mild blurred vision; not currently driving. - Ivet denies paresthesia in feet. 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 Depressive disorder, not elsewhere classified DM (diabetes mellitus) (HCC) Fibromyalgia Migraine with aura, without mention of intractable migraine without mention of status migrainosus Panic disorder without agoraphobia had hx of failed urine screen Recurrent UTI Tobacco use disorder PAST SURGICAL HISTORY Procedure Laterality Date CHOLECYSTECTOMY ESOPHAGOGASTRODUODENOSCOPY TRANSORAL DIAGNOSTIC 12/06/2015 EGD LIG/TRNSXJ FLP TUBE ABDL/VAG APPR UNI/BI Tubal ligation PAST SURGICAL HISTORY OF Left 03/2014 ANKLE FRACTURE REPAIR S SLING BLADDER 2012 & TOTAL ABDOMINAL HYSTERECT W/WO RMVL TUBE OVARY Hysterectomy, REJI ALLERGIES Chantix [Varenicline], Penicillins, and Sulfa (Sulfonamide Antibiotics) MEDICATIONS Current Outpatient Medications Medication Sig promethazine (PHENERGAN) 25 mg tablet Take 1 tablet by mouth every 6 hours as needed for nausea/vomiting. Insulin [place], Disposable, (BD ULTRA-FINE MINDY PEN NEEDLE) 32 gauge x 5/32 Use one needle for each dose, 4 times daily. (4mm) albuterol (PROVENTIL) 2.5 mg /3 mL (0.083 %) nebulizer solution Use 3 mL via nebulizer every 4 hours as needed for wheezing/shortness of breath. Use over 5-15minutes. albuterol HFA (VENTOLIN HFA) 90 mcg/actuation inhaler Inhale 2 puffs as instructed every 4 hours as needed. insulin glargine U-300 conc (TOUJEO) 300 unit/mL (1.5 mL) Inject 80 Units subcutaneously every morning. E11.9 Dispense 2 boxes of 3 pens. dwjyvfzjrxt-lrzcjwosb-jhelqbaa (TRELEGY ELLIPTA) 200-62.5-25 mcg inhalation powder Inhale 1 puff as instructed once daily. lisinopril 2.5 mg tablet Take 1 tablet by mouth once daily. For kidney protection ergocalciferol 50,000 unit capsule (VITAMIN D2, DRISDOL) Take 1 capsule by mouth every other week. Cyanocobalamin 1,000 mcg TbER Take 1 tablet by mouth once daily. B12 nystatin (MYCOSTATIN) powder Apply 1 application to affected area four times daily. Blood-Glucose Meter monitoring kit Glucose Meter of Choice - Kit - Dx: Type 2 DM - Uncontrolled E11.65 blood sugar diagnostic (FREESTYLE LITE STRIPS) test strip Test blood sugar(s) 3-4 times daily. Dx: Type 2 DM - Uncontrolled E11.65 Insulin: Yes rosuvastatin (CRESTOR) 5 mg tablet Take 1 tablet by mouth once daily. gabapentin (NEURONTIN) 400 mg capsule Take 1 capsule by mouth three times a day for 90 days. Lancets Test blood sugar(s) 3-4 times daily. Dx: Type 2 DM-Controlled Insulin: Yes blood sugar diagnostic (BLOOD GLUCOSE TEST) test strip Test blood sugar(s) 3-4 times daily. Dx: Type 2 DM - Controlled E11.9 Insulin: Yes omeprazole (PRILOSEC) 40 mg capsule Take 1 capsule by mouth once daily. insulin lispro (HUMALOG KWIKPEN INSULIN) 100 unit/mL Inject 12 Units subcutaneously three times a day before meals. And sliding scale up to 38 units tid. busPIRone (BUSPAR) 10 mg tablet Take 1 tablet by mouth three times daily. escitalopram oxalate (LEXAPRO) 20 mg tablet Take 10 mg by mouth once daily. buPROPion XL (WELLBUTRIN XL) 150 mg 24 hr tablet Take 300 mg by mouth once daily. Insulin [place], Disposable, 32 gauge x 5/16 ndle Use four times daily with insulin QUEtiapine XR (SEROQUEL XR) 300 mg 24 hr tablet Take 300 mg by mouth daily at bedtime. Blood Pressure Monitor EXLARGE BLOOD PRESSURE CUFF MONITOR KIT checking bp 4 times daily No current facility-administered medications for this visit. FAMILY HISTORY Problem Relation Age of Onset Hypertension Mother SOCIAL HISTORY[1] REVIEW OF SYSTEMS Constitutional: (+) chills, (+) diaphoresis, (-) fever, (-) weight loss Head: (+) headache Eyes: (+) blurred vision Respiratory: (+) cough Gastrointestinal: (+) nausea, (+) vomiting Genitourinary: (+) polyuria Musculoskeletal: (+) myalgia Neurological: (-) paresthesia Endocrine: (+) polydipsia EXAM: BP 146/78 Pulse 103 Temp 36.6 C (97.8 F) (Left Tympanic) Wt 102.5 kg (226 lb) SpO2 98% BMI 40.04 kg/m PHYSICAL EXAM: GENERAL: NAD, alert and oriented SKIN: diaphoretic, no rash or skin lesions. HEAD: normocephalic EARS: external ears normal, canals clear, TM's normal. NOSE/SINUSES: Nares normal. Septum midline. OROPHARYNX: lips, mucosa, and tongue normal, good dentition. No oral lesions noted. NECK: Supple, no lymphadenopathy, normal thyroid, no carotid bruits. LUNGS: Clear to auscultation bilaterally, no wheezes/rhonchi/rales. HEART: Regular rate and rhythm, no murmurs. No ectopy. EXTREMITIES: Normal, No deformities, No skin discoloration, No edema. NEURO: Awake, alert and oriented x3, cranial nerves II-XII grossly intact, normal gait, no involuntary motions LABS: check labs when feeling better ASSESSMENT/PLAN: 1. Gastroenteritis - ICD9: 558.9, ICD10: K52.9 (primary diagnosis) Acute- treat with phenergan suppositories and fluids. Rest. - PROMETHAZINE 25 MG RECTAL SUPPOSITORY 2. Primary hypertension - ICD9: 401.9, ICD10: I10 - Controlled - Recommend home blood pressure monitoring, to bring results to next visit - Encouraged sodium restriction, DASH or Mediterranean diet - Recommend regular aerobic exercise 3. Tobacco use disorder - ICD9: 305.1, ICD10: F17.200 - Cessation encouraged. - Physiologic and physical aspects of tobacco addiction as well as strategies for quitting were discussed. - Counseling was given focusing on the harmful effects of this addiction especially given the patient's medical condition(s) which will be worsened because of the chemicals in tobacco. - LDCT ordered 4. Uncontrolled type 2 diabetes mellitus with hyperglycemia (HCC) - ICD9: 250.02, ICD10: E11.65 - Control undetermined, due for labs - Continue current medications Discussed treatment plan and patient voices understanding. Patient's questions answered appropriately. Medications and potential side effects were discussed and patient voices understanding. Return to the office as scheduled or as needed for worsening/no improvement. Smiley Melo, NASEEM.LINE THERAPIST [1] Social History Tobacco Use Smoking status: Some Days Current packs/day: 1.00 Average packs/day: 1 pack/day for 40.0 years (40.0 ttl pk-yrs) Types: Cigarettes Smokeless tobacco: Never Tobacco comments: 3 cigarettes daily? Vaping Use Vaping status: Never Used Substance Use Topics Alcohol use: No Drug use: No documented in this encounter [facility] 2025 Telephone encounter Note Notified patient. [facility] 2025 Miscellaneous Notes Notified patient. Will order Tessalon Perles, 1 Perle swallowed whole every 8 hours as needed for cough. Patient phoned to ask Duyen if you can prescribe a cough medicine for her that is safe with her diabetes? Reports she's had a harsh productive clear cough since 2 days before her last appt with you. Reports it's constant and wearing her down, worse at night, and unable to sleep. No runny nose or sinus drainage. No other symptoms. Gets hot at night- not sure if it's a fever. Reports she will complete the macrobid today for UTI. Please advise patient. documented in this encounter [facility] 2025 Telephone encounter Note Will order Tessalon Perles, 1 Perle swallowed whole every 8 hours as needed for cough. [facility] 2025 Telephone encounter Note Patient phoned to ask Duyen if you can prescribe a cough medicine for her that is safe with her diabetes? Reports she's had a harsh productive clear cough since 2 days before her last appt with you. Reports it's constant and wearing her down, worse at night, and unable to sleep. No runny nose or sinus drainage. No other symptoms. Gets hot at night- not sure if it's a fever. Reports she will complete the macrobid today for UTI. Please advise patient. [facility] 04-04-2025 Telephone encounter Note The following approved medication requests have been transmitted electronically. Requested Prescriptions Pending Prescriptions Disp Refills promethazine (PHENERGAN) 25 mg tablet 20 tablet 2 Sig: Take 1 tablet by mouth every 6 hours as needed for nausea/vomiting. Smiley Melo APRN.CNP [facility] 04-04-2025 Miscellaneous Notes The following approved medication requests have been transmitted electronically. Requested Prescriptions Pending Prescriptions Disp Refills promethazine (PHENERGAN) 25 mg tablet 20 tablet 2 Sig: Take 1 tablet by mouth every 6 hours as needed for nausea/vomiting. Smiley Melo APRN.CNP Prescription Refill Information The patient has been identified by name and date of : Yes Caregiver verified no other encounters exist for this prescription request: Yes Caregiver confirmed with patient/requestor that no other refills are due, in the near future, with this provider at this time: Yes The last office visit in the department: 03/29/25 Does the patient have a future office visit with this provider/department: Yes Requested Prescriptions Pending Prescriptions Disp Refills promethazine (PHENERGAN) 25 mg tablet 20 tablet 2 Sig: Take 1 tablet by mouth every 6 hours as needed for nausea/vomiting. Patient stated she does not have any refills left. She is using [place] Jay Em. Joycelyn Greer April 04, 2025 4:21 PM documented in this encounter [facility] 04-04-2025 Telephone encounter Note Prescription Refill Information The patient has been identified by name and date of : Yes Caregiver verified no other encounters exist for this prescription request: Yes Caregiver confirmed with patient/requestor that no other refills are due, in the near future, with this provider at this time: Yes The last office visit in the department: 03/29/25 Does the patient have a future office visit with this provider/department: Yes Requested Prescriptions Pending Prescriptions Disp Refills promethazine (PHENERGAN) 25 mg tablet 20 tablet 2 Sig: Take 1 tablet by mouth every 6 hours as needed for nausea/vomiting. Patient stated she does not have any refills left. She is using [place] Alex. Joycelyn Greer April 04, 2025 4:21 PM [facility] 03-29-2025 Note HNO ID: [id number] Author: SWATHI WALLIS Tech Service: ? Author Type: Production Operations Manager Type: Progress Notes Filed: 03/29/2025 12:50 Note Text: Radiology Service Progress Note PATIENT NAME: Ivet Valero DATE OF SERVICE: March 29, 2025 TIME: 12:19 PM PATIENT IDENTITY VERIFICATION COMPLETED USING TWO (2) IDENTIFIERS: Name and Date of confirmed by patient verbally. FALL SCREENING: Has the patient had 2 falls in the last year or 1 fall with injury or currently using an Ambulatory Assistive Device (Walker, Cane, Wheelchair, Crutches, etc.)? No PATIENT GENDER DATA: Assigned female at . status: : No status: NO. PATIENT RELEVANT IMPLANT DATA REVIEWED: Yes PATIENT PRESENTS WITH AN IMPLANTABLE OR ATTACHED MANAGER FINANCIAL: No RADIOLOGY DEPARTMENT: General X-ray: Exam(s) Completed: Chest X-Ray PERIPHERAL IV DATA: Not applicable SIGNED BY: Odalys Grey March 29, 2025 12:19 PM [facility] 03-29-2025 Note HNO ID: [id number] Author: SMILEY MELO APRN.LINE THERAPIST Service: ? Author Type: Nurse Practitioner Type: Progress Notes Filed: 03/29/2025 12:10 Note Text: This is a 69 year old female who presents today with: Patient presents with: Follow Up: 2 week follow up bronchitis HISTORY OF PRESENT ILLNESS: Ivet Valero is a 69 year old female. Patient presents with: Follow Up: 2 week follow up bronchitis Ivet Valero is a 69-year-old female with a history of COPD, diabetes, and hyperlipidemia, presenting for follow-up of dyspnea and urinary symptoms. Dyspnea: - Dyspnea on exertion, particularly with long-distance walking. - Recent course of antibiotics and steroids provided some relief. - Denies persistent cough or wheezing. - Has been using Breo inhaler for COPD management; inquires about trying Trelegy. Urinary Symptoms: - Severe dysuria with sharp pains. - Temporary relief after urination. - Polyuria, urinating approximately three times per hour. - Using nystatin powder for yeast, applied to both groin and under breasts. Diabetes: - Taking 80 units of Trujail every morning. - Using Humalog 12 units TID, sliding scale. - Reports polydipsia and polyphagia. - Learning to use a glucometer. Hyperlipidemia: - Recently started on rosuvastatin. Has smoked up to 2 ppd for 51 years- not interested in cessation 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 Depressive disorder, not elsewhere classified DM (diabetes mellitus) (HCC) Fibromyalgia Migraine with aura, without mention of intractable migraine without mention of status migrainosus Panic disorder without agoraphobia had hx of failed urine screen Recurrent UTI Tobacco use disorder PAST SURGICAL HISTORY Procedure Laterality Date CHOLECYSTECTOMY ESOPHAGOGASTRODUODENOSCOPY TRANSORAL DIAGNOSTIC 12/06/2015 EGD LIG/TRNSXJ FLP TUBE ABDL/VAG APPR UNI/BI Tubal ligation PAST SURGICAL HISTORY OF Left 03/2014 ANKLE FRACTURE REPAIR S SLING BLADDER 2012 AND TOTAL ABDOMINAL HYSTERECT W/WO RMVL TUBE OVARY Hysterectomy, REJI ALLERGIES Chantix [Varenicline], Penicillins, and Sulfa (Sulfonamide Antibiotics) MEDICATIONS Current Outpatient Medications Medication Sig promethazine (PHENERGAN) 25 mg tablet Take 1 tablet by mouth every 6 hours as needed for nausea/vomiting. blood sugar diagnostic (FREESTYLE LITE STRIPS) test strip Test blood sugar(s) 3-4 times daily. Dx: Type 2 DM - Uncontrolled E11.65 Insulin: Yes rosuvastatin (CRESTOR) 5 mg tablet Take 1 tablet by mouth once daily. Cyanocobalamin 1,000 mcg TbER Take 1 tablet by mouth once daily. B12 ergocalciferol 50,000 unit capsule (VITAMIN D2, DRISDOL) Take 1 capsule by mouth every other week. gabapentin (NEURONTIN) 400 mg capsule Take 1 capsule by mouth three times a day for 90 days. Lancets Test blood sugar(s) 3-4 times daily. Dx: Type 2 DM-Controlled Insulin: Yes blood sugar diagnostic (BLOOD GLUCOSE TEST) test strip Test blood sugar(s) 3-4 times daily. Dx: Type 2 DM - Controlled E11.9 Insulin: Yes omeprazole (PRILOSEC) 40 mg capsule Take 1 capsule by mouth once daily. insulin lispro (HUMALOG KWIKPEN INSULIN) 100 unit/mL Inject 12 Units subcutaneously three times a day before meals. And sliding scale up to 38 units tid. fluticasone-vilanterol (BREO ELLIPTA) 100-25 mcg/dose inhaler Inhale 1 Inhalation as instructed once daily. nystatin (MYCOSTATIN) powder Apply 1 application to affected area four times daily. busPIRone (BUSPAR) 10 mg tablet Take 1 tablet by mouth three times daily. escitalopram oxalate (LEXAPRO) 20 mg tablet Take 10 mg by mouth once daily. buPROPion XL (WELLBUTRIN XL) 150 mg 24 hr tablet Take 300 mg by mouth once daily. Insulin [place], Disposable, 32 gauge x 01/07 ndle Use four times daily with insulin QUEtiapine XR (SEROQUEL XR) 300 mg 24 hr tablet Take 300 mg by mouth daily at bedtime. Blood Pressure Monitor EXLARGE BLOOD PRESSURE CUFF MONITOR KIT checking bp 4 times daily Insulin [place], Disposable, (BD ULTRA-FINE MINDY PEN NEEDLE) 32 gauge x Use one needle for each dose, 4 times daily. (4mm) albuterol (PROVENTIL) 2.5 mg /3 mL (0.083 %) nebulizer solution Use 3 mL via nebulizer every 4 hours as needed for wheezing/shortness of breath. Use over 5-15minutes. albuterol HFA (VENTOLIN HFA) 90 mcg/actuation inhaler Inhale 2 puffs as instructed every 4 hours as needed. Blood-Glucose Meter monitoring kit Glucose Meter of Choice - Kit - Dx: Type 2 DM - Uncontrolled E11.65 insulin glargine U-300 conc (TOUJEO) 300 unit/mL (1.5 mL) Inject 80 Units subcutaneously every morning. E11.9 Dispense 2 boxes of 3 pens. No current facility-administered medications for this visit. FAMILY HISTORY Problem Relation Age of Onset Hypertension Mother Social (more content not included)... [facility] 03-24-2025 Telephone encounter Note Spoke with patient and she was already notified and has it taken care of. Marylu Yeung MA March 24, 2025 11:43 AM [facility] 03-24-2025 Miscellaneous Notes Spoke with patient and she was already notified and has it taken care of. Marylu Yeung MA March 24, 2025 11:43 AM Let her know not covered [facility] Insurance reports pt's incontinent supplies request was denied of payment due to not reimburseable. [facility] pcp can appeal or go through Medicaid. documented in this encounter [facility] 03-24-2025 Telephone encounter Note Let her know not covered [facility] 03-24-2025 Telephone encounter Note [facility] Insurance reports pt's incontinent supplies request was denied of payment due to not reimburseable. [facility] pcp can appeal or go through Medicaid. [facility] 03-10-2025 Note Addended by: SMILEY MELO on: 03/10/2025 11:03 AM Modules accepted: Orders [facility] 03-10-2025 Miscellaneous Notes Addended by: SMILEY MELO on: 03/10/2025 11:03 AM Modules accepted: Orders documented in this encounter [facility] 03-10-2025 Instructions Smiley Melo APRN.CNP - 03/10/2025 10:59 AM EDT - Take doxycycline twice a day for 14 days; swallow it with food to help protect your stomach. - Begin the 9-day steroid taper as prescribed to open up your airways and help you breathe more easily. - Expect your cough to gradually improve over the next several days, although it may linger for a while. - Bring your blood sugar meter to your next visit so we can review your readings and show you how to use it. - Return to the clinic in about two week for a lung exam and to review your blood sugars. documented in this encounter [facility] 03-10-2025 Note HNO ID: [id number] Author: SMILEY MELO APRN.CNP Service: ? Author Type: Nurse Practitioner Type: Progress Notes Filed: 03/10/2025 11:00 Note Text: This is a 69 year old female who presents today with: Patient presents with: Follow Up: Continues to have cough and dizziness HISTORY OF PRESENT ILLNESS: Ivet Valero is a 69 year old female. Patient presents with: Follow Up: Continues to have cough and dizziness Ivet Valero is a 69-year-old female with a history of diabetes, presenting for evaluation of persistent dyspnea and cough. Dyspnea and Cough: - Persistent dyspnea and cough, with minimal improvement after completing a recent medication course. - Brief period of symptom relief allowed for some housework. - Severe dyspnea when retrieving the trash can and checking the mail; could barely make it back in because I couldn't breathe. - Productive cough with yellowish sputum, now clear this morning. - Denies chest pain. - Orthopnea; sleeps in a recliner. - Denies sinus congestion; reports frequent headaches. - Denies fever or chills. Diabetes: - Ivet has a blood glucose meter but unable to use it; did not bring it to the appointment. - Adherent to diabetes medications. 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 Depressive disorder, not elsewhere classified DM (diabetes mellitus) (HCC) Fibromyalgia Migraine with aura, without mention of intractable migraine without mention of status migrainosus Panic disorder without agoraphobia had hx of failed urine screen Recurrent UTI Tobacco use disorder PAST SURGICAL HISTORY Procedure Laterality Date CHOLECYSTECTOMY ESOPHAGOGASTRODUODENOSCOPY TRANSORAL DIAGNOSTIC 12/06/2015 EGD LIG/TRNSXJ FLP TUBE ABDL/VAG APPR UNI/BI Tubal ligation PAST SURGICAL HISTORY OF Left 03/2014 ANKLE FRACTURE REPAIR S SLING BLADDER 2012 AND TOTAL ABDOMINAL HYSTERECT W/WO RMVL TUBE OVARY Hysterectomy, REJI ALLERGIES Chantix [Varenicline], Penicillins, and Sulfa (Sulfonamide Antibiotics) MEDICATIONS Current Outpatient Medications Medication Sig promethazine (PHENERGAN) 25 mg tablet Take 1 tablet by mouth every 6 hours as needed for nausea/vomiting. Blood-Glucose Meter monitoring kit Glucose Meter of Choice - Kit - Dx: Type 2 DM - Uncontrolled E11.65 blood sugar diagnostic (FREESTYLE LITE STRIPS) test strip Test blood sugar(s) 3-4 times daily. Dx: Type 2 DM - Uncontrolled E11.65 Insulin: Yes rosuvastatin (CRESTOR) 5 mg tablet Take 1 tablet by mouth once daily. Cyanocobalamin 1,000 mcg TbER Take 1 tablet by mouth once daily. B12 ergocalciferol 50,000 unit capsule (VITAMIN D2, DRISDOL) Take 1 capsule by mouth every other week. gabapentin (NEURONTIN) 400 mg capsule Take 1 capsule by mouth three times a day for 90 days. Lancets Test blood sugar(s) 3-4 times daily. Dx: Type 2 DM-Controlled Insulin: Yes blood sugar diagnostic (BLOOD GLUCOSE TEST) test strip Test blood sugar(s) 3-4 times daily. Dx: Type 2 DM - Controlled E11.9 Insulin: Yes omeprazole (PRILOSEC) 40 mg capsule Take 1 capsule by mouth once daily. insulin glargine U-300 conc (TOUJEO) 300 unit/mL (1.5 mL) Inject 80 Units subcutaneously every morning. E11.9 Dispense 2 boxes of 3 pens. insulin lispro (HUMALOG KWIKPEN INSULIN) 100 unit/mL Inject 12 Units subcutaneously three times a day before meals. And sliding scale up to 38 units tid. Insulin [place], Disposable, (BD ULTRA-FINE MINDY PEN NEEDLE) 32 gauge x Use one needle for each dose, 4 times daily. (4mm) albuterol HFA (VENTOLIN HFA) 90 mcg/actuation inhaler Inhale 2 Puffs as instructed every 4 hours as needed. fluticasone-vilanterol (BREO ELLIPTA) 100-25 mcg/dose inhaler Inhale 1 Inhalation as instructed once daily. (Patient not taking: Reported on 03/01/2025) nystatin (MYCOSTATIN) powder Apply 1 application to affected area four times daily. albuterol (PROVENTIL) 2.5 mg /3 mL (0.083 %) nebulizer solution Use 3 mL via nebulizer every 4 hours as needed for wheezing/shortness of breath. Use over 5-15minutes. busPIRone (BUSPAR) 10 mg tablet Take 1 tablet by mouth three times daily. escitalopram oxalate (LEXAPRO) 20 mg tablet Take 10 mg by mouth once daily. buPROPion XL (WELLBUTRIN XL) 150 mg 24 hr tablet Take 300 mg by mouth once daily. Insulin [place], Disposable, 32 gauge x 01/07 ndle Use four times daily with insulin QUEtiapine XR (SEROQUEL XR) 300 mg 24 hr tablet Take 300 mg by mouth daily at bedtime. Blood Pressure Monitor EXLARGE BLOOD PRESSURE CUFF MONITOR KIT checking bp 4 times daily No current facility-administered medications for this visit. FAMILY HISTORY Problem Relation Age of Onset Hypertension Mother Social History Tobacco Use Smoking status: Some Days Current packs/day: 1.00 Aver (more content not included)... [facility] 03-10-2025 History of Present illness Narrative This is a 69 year old female who presents today with: Patient presents with: Follow Up: Continues to have cough and dizziness HISTORY OF PRESENT ILLNESS: Ivet Valero is a 69 year old female. Patient presents with: Follow Up: Continues to have cough and dizziness Ivet Valero is a 69-year-old female with a history of diabetes, presenting for evaluation of persistent dyspnea and cough. Dyspnea and Cough: - Persistent dyspnea and cough, with minimal improvement after completing a recent medication course. - Brief period of symptom relief allowed for some housework. - Severe dyspnea when retrieving the trash can and checking the mail; could barely make it back in because I couldn't breathe. - Productive cough with yellowish sputum, now clear this morning. - Denies chest pain. - Orthopnea; sleeps in a recliner. - Denies sinus congestion; reports frequent headaches. - Denies fever or chills. Diabetes: - Ivet has a blood glucose meter but unable to use it; did not bring it to the appointment. - Adherent to diabetes medications. 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 Depressive disorder, not elsewhere classified DM (diabetes mellitus) (HCC) Fibromyalgia Migraine with aura, without mention of intractable migraine without mention of status migrainosus Panic disorder without agoraphobia had hx of failed urine screen Recurrent UTI Tobacco use disorder PAST SURGICAL HISTORY Procedure Laterality Date CHOLECYSTECTOMY ESOPHAGOGASTRODUODENOSCOPY TRANSORAL DIAGNOSTIC 12/06/2015 EGD LIG/TRNSXJ FLP TUBE ABDL/VAG APPR UNI/BI Tubal ligation PAST SURGICAL HISTORY OF Left 03/2014 ANKLE FRACTURE REPAIR S SLING BLADDER 2012 & TOTAL ABDOMINAL HYSTERECT W/WO RMVL TUBE OVARY Hysterectomy, REJI ALLERGIES Chantix [Varenicline], Penicillins, and Sulfa (Sulfonamide Antibiotics) MEDICATIONS Current Outpatient Medications Medication Sig promethazine (PHENERGAN) 25 mg tablet Take 1 tablet by mouth every 6 hours as needed for nausea/vomiting. Blood-Glucose Meter monitoring kit Glucose Meter of Choice - Kit - Dx: Type 2 DM - Uncontrolled E11.65 blood sugar diagnostic (FREESTYLE LITE STRIPS) test strip Test blood sugar(s) 3-4 times daily. Dx: Type 2 DM - Uncontrolled E11.65 Insulin: Yes rosuvastatin (CRESTOR) 5 mg tablet Take 1 tablet by mouth once daily. Cyanocobalamin 1,000 mcg TbER Take 1 tablet by mouth once daily. B12 ergocalciferol 50,000 unit capsule (VITAMIN D2, DRISDOL) Take 1 capsule by mouth every other week. gabapentin (NEURONTIN) 400 mg capsule Take 1 capsule by mouth three times a day for 90 days. Lancets Test blood sugar(s) 3-4 times daily. Dx: Type 2 DM-Controlled Insulin: Yes blood sugar diagnostic (BLOOD GLUCOSE TEST) test strip Test blood sugar(s) 3-4 times daily. Dx: Type 2 DM - Controlled E11.9 Insulin: Yes omeprazole (PRILOSEC) 40 mg capsule Take 1 capsule by mouth once daily. insulin glargine U-300 conc (TOUJEO) 300 unit/mL (1.5 mL) Inject 80 Units subcutaneously every morning. E11.9 Dispense 2 boxes of 3 pens. insulin lispro (HUMALOG KWIKPEN INSULIN) 100 unit/mL Inject 12 Units subcutaneously three times a day before meals. And sliding scale up to 38 units tid. Insulin [place], Disposable, (BD ULTRA-FINE MINDY PEN NEEDLE) 32 gauge x 5/32 Use one needle for each dose, 4 times daily. (4mm) albuterol HFA (VENTOLIN HFA) 90 mcg/actuation inhaler Inhale 2 Puffs as instructed every 4 hours as needed. fluticasone-vilanterol (BREO ELLIPTA) 100-25 mcg/dose inhaler Inhale 1 Inhalation as instructed once daily. (Patient not taking: Reported on 03/01/2025) nystatin (MYCOSTATIN) powder Apply 1 application to affected area four times daily. albuterol (PROVENTIL) 2.5 mg /3 mL (0.083 %) nebulizer solution Use 3 mL via nebulizer every 4 hours as needed for wheezing/shortness of breath. Use over 5-15minutes. busPIRone (BUSPAR) 10 mg tablet Take 1 tablet by mouth three times daily. escitalopram oxalate (LEXAPRO) 20 mg tablet Take 10 mg by mouth once daily. buPROPion XL (WELLBUTRIN XL) 150 mg 24 hr tablet Take 300 mg by mouth once daily. Insulin [place], Disposable, 32 gauge x 5/16 ndle Use four times daily with insulin QUEtiapine XR (SEROQUEL XR) 300 mg 24 hr tablet Take 300 mg by mouth daily at bedtime. Blood Pressure Monitor EXLARGE BLOOD PRESSURE CUFF MONITOR KIT checking bp 4 times daily No current facility-administered medications for this visit. FAMILY HISTORY Problem Relation Age of Onset Hypertension Mother Social History Tobacco Use Smoking status: Some Days Current packs/day: 1.00 Average packs/day: 1 pack/day for 40.0 years (40.0 ttl pk-yrs) Types: Cigarettes Smokeless tobacco: Never Tobacco comments: 3 cigarettes daily? Vaping Use Vaping status: Never Used Substance Use Topics Alcohol use: No Drug use: No REVIEW OF SYSTEMS Constitutional: (-) fever, (-) chills Head: (+) headaches Ears/Nose/Mouth/Throat: (-) nasal congestion Cardiovascular: (-) chest pain Respiratory: (+) shortness of breath, (+) orthopnea, (+) cough, (+) sputum production EXAM: BP 140/78 Pulse 110 Temp 37.2 C (99 F) (Right Tympanic) SpO2 95% PHYSICAL EXAM: GENERAL: NAD, alert and oriented SKIN: Diaphoretic and hot to the touch LUNGS: Clear to auscultation bilaterally, no wheezes/rhonchi/rales. Positive egophony bronchial. Very consolidated. HEART: Regular rate and rhythm, no murmurs. No ectopy. NEURO: Awake, alert and oriented x3, cranial nerves II-XII grossly intact, normal gait, no involuntary motions. LABS: Labs: - White blood count: Elevated ASSESSMENT/PLAN: 1. Acute bronchitis, unspecified organism (J20.9) - Persistent symptoms of shortness of breath, cough, and wheezing; sputum production initially yellowish, now clear. No significant chest pain reported. - Physical exam reveals no significant abnormalities in lung sounds. - Recent lab results show a mildly elevated WBC count and low-grade fever. - Initiated doxycycline 100 mg PO BID for 14 days; advised to take with food to minimize gastrointestinal side effects. - Prescribed a 9-day course of corticosteroid taper to reduce airway inflammation and improve breathing. - Discussed potential impact of corticosteroids on blood glucose levels; patient to monitor closely. - Follow-up in two week to reassess lung function and review blood glucose monitoring. 2. Recurrent UTI (urinary tract infection) (N39.0) - repeat UA for culture reflex Discussed treatment plan and patient voices understanding. Patient's questions answered appropriately. Medications and potential side effects were discussed and patient voices understanding. Return to the office as scheduled or as needed for worsening/no improvement. Smiley Melo APRN.SINGH documented in this encounter [facility] 03-09-2025 Telephone encounter Note Pt called and is notified of providers message. Pt voices understanding. Pt scheduled tomorrow with Duyen Melo NP. Diane Guillermo RN [facility] 03-09-2025 Miscellaneous Notes Pt called and is notified of providers message. Pt voices understanding. Pt scheduled tomorrow with Duyen Melo NP. Diane Guillermo RN Agree. Needs seen Pt called in and reports she is still coughing non-stop and bringing up thick white-yellow phlegm. Pt states once she starts she isn't able to start. She reports she is still having the Shortness of Breath that she was having when she saw Duyen Melo NP on 03/01/25. Pt denies fever, wheezing, or chest pain. Pt states she was put on 5 days of antibiotics and has been off of them for a few days. I told her typically the provider would want her to come in and be seen again, Pt declined appointment. Pt is asking if provider would call and antibiotic in for her to [facility] in [place]. Please call and advise. Diane Guillermo RN documented in this encounter [facility] 03-09-2025 Telephone encounter Note Agree. Needs seen [facility] 03-09-2025 Telephone encounter Note Pt called in and reports she is still coughing non-stop and bringing up thick white-yellow phlegm. Pt states once she starts she isn't able to start. She reports she is still having the Shortness of Breath that she was having when she saw Duyen Melo NP on 03/01/25. Pt denies fever, wheezing, or chest pain. Pt states she was put on 5 days of antibiotics and has been off of them for a few days. I told her typically the provider would want her to come in and be seen again, Pt declined appointment. Pt is asking if provider would call and antibiotic in for her to [facility] in [place]. Please call and advise. Diane Guillermo RN [facility] 03-08-2025 Telephone encounter Note Pt requesting rx to go to [facility]. Kash Ledesma LPN [facility] 03-08-2025 Miscellaneous Notes Pt requesting rx to go to [facility]. Kash Ledesma LPN Prescription Refill Information The patient has been identified by name and date of : Yes Caregiver verified no other encounters exist for this prescription request: Yes Caregiver confirmed with patient/requestor that no other refills are due, in the near future, with this provider at this time: Yes The last office visit in the department: 03-01-25 Does the patient have a future office visit with this provider/department: Yes Requested Prescriptions Pending Prescriptions Disp Refills promethazine (PHENERGAN) 25 mg tablet 20 tablet 2 Sig: Take 1 tablet by mouth every 6 hours as needed for nausea/vomiting. Kareen Lam March 08, 2025 8:21 AM documented in this encounter [facility] 03-08-2025 Telephone encounter Note Prescription Refill Information The patient has been identified by name and date of : Yes Caregiver verified no other encounters exist for this prescription request: Yes Caregiver confirmed with patient/requestor that no other refills are due, in the near future, with this provider at this time: Yes The last office visit in the department: 03-01-25 Does the patient have a future office visit with this provider/department: Yes Requested Prescriptions Pending Prescriptions Disp Refills promethazine (PHENERGAN) 25 mg tablet 20 tablet 2 Sig: Take 1 tablet by mouth every 6 hours as needed for nausea/vomiting. Kareen Lam March 08, 2025 8:21 AM [facility] 03-04-2025 Telephone encounter Note Patient was made aware of the results. Patient verbalizes understanding. Marylu Yeung Ma [facility] 03-04-2025 Miscellaneous Notes Patient was made aware of the results. Patient verbalizes understanding. Marylu Yeung Ma ----- Message from Smiley Melo sent at 03/03/2025 12:37 PM EDT ----- Please let patient know that her LDL, bad cholesterol, is very high... 133. Remember to follow diet low in saturated fat by eliminating fried foods and choosing only lean meat/skim dairy products. With her diabetes, a statin medication is recommended. I would start her on rosuvastatin 5 mg daily. An order has been placed. That will reduce cardiovascular disease B12 level is very low. Please continuous pickling line pickler helper [id number] B12 1000 mcg and take it every day. It is inexpensive and readily available at most grocery stores or big box stores. Diabetes is not well-controlled with a hemoglobin A1c of 7.9%. Remember to follow a diet low in saturated fat and we can adjust medications accordingly. Finally, vitamin D level is still low. Increase ergocalciferol to every other week. ----- Message from Smiley Melo sent at 03/03/2025 12:28 PM EDT ----- Please let patient know that the nitrofurantoin that I prescribed for her bladder infection should be effective against the E. coli infection that she has. Please repeat urinalysis once antibiotic is complete to make certain that infection has resolved. Please let patient know that her LDL, bad cholesterol, is very high... 133. Remember to follow diet low in saturated fat by eliminating fried foods and choosing only lean meat/skim dairy products. With her diabetes, a statin medication is recommended. I would start her on rosuvastatin 5 mg daily. An order has been placed. That will reduce cardiovascular disease B12 level is very low. Please continuous pickling line pickler helper [id number] B12 1000 mcg and take it every day. It is inexpensive and readily available at most grocery stores or big box stores. Diabetes is not well-controlled with a hemoglobin A1c of 7.9%. Remember to follow a diet low in saturated fat and we can adjust medications accordingly. Finally, vitamin D level is still low. Increase ergocalciferol to every other week. Please let patient know that the nitrofurantoin that I prescribed for her bladder infection should be effective against the E. coli infection that she has. Please repeat urinalysis once antibiotic is complete to make certain that infection has resolved. documented in this encounter [facility] 03-04-2025 Telephone encounter Note ----- Message from Smiley Melo sent at 03/03/2025 12:37 PM EDT ----- Please let patient know that her LDL, bad cholesterol, is very high... 133. Remember to follow diet low in saturated fat by eliminating fried foods and choosing only lean meat/skim dairy products. With her diabetes, a statin medication is recommended. I would start her on rosuvastatin 5 mg daily. An order has been placed. That will reduce cardiovascular disease B12 level is very low. Please continuous pickling line pickler helper [id number] B12 1000 mcg and take it every day. It is inexpensive and readily available at most grocery stores or big box stores. Diabetes is not well-controlled with a hemoglobin A1c of 7.9%. Remember to follow a diet low in saturated fat and we can adjust medications accordingly. Finally, vitamin D level is still low. Increase ergocalciferol to every other week. [facility] 03-04-2025 Telephone encounter Note ----- Message from Smiley Melo sent at 03/03/2025 12:28 PM EDT ----- Please let patient know that the nitrofurantoin that I prescribed for her bladder infection should be effective against the E. coli infection that she has. Please repeat urinalysis once antibiotic is complete to make certain that infection has resolved. [facility] 03-03-2025 Progress note Formatting of t his note might be different from the original. Please let patient know that her LDL, bad cholesterol, is very high... 133. Remember to follow diet low in saturated fat by eliminating fried foods and choosing only lean meat/skim dairy products. With her diabetes, a statin medication is recommended. I would start her on rosuvastatin 5 mg daily. An order has been placed. That will reduce cardiovascular disease B12 level is very low. Please continuous pickling line pickler helper [id number] B12 1000 mcg and take it every day. It is inexpensive and readily available at most grocery stores or [employer] stores. Diabetes is not well-controlled with a hemoglobin A1c of 7.9%. Remember to follow a diet low in saturated fat and we can adjust medications accordingly. Finally, vitamin D level is still low. Increase ergocalciferol to every other week. [facility] 03-03-2025 Progress note Formatting of t his note might be different from the original. Please let patient know that the nitrofurantoin that I prescribed for her bladder infection should be effective against the E. coli infection that she has. Please repeat urinalysis once antibiotic is complete to make certain that infection has resolved. [facility] 03-03-2025 Telephone encounter Note The following approved medication requests have been transmitted electronically. Requested Prescriptions Pending Prescriptions Disp Refills Blood-Glucose Meter monitoring kit 1 each 0 Sig: Glucose Meter of Choice - Kit - Dx: Type 2 DM - Uncontrolled E11.65 blood sugar diagnostic (FREESTYLE LITE STRIPS) test strip 100 strip 11 Sig: Test blood sugar(s) 3-4 times daily. Dx: Type 2 DM - Uncontrolled E11.65 Insulin: Yes Smiley Melo APRN.CNP [facility] 03-03-2025 Miscellaneous Notes The following approved medication requests have been transmitted electronically. Requested Prescriptions Pending Prescriptions Disp Refills Blood-Glucose Meter monitoring kit 1 each 0 Sig: Glucose Meter of Choice - Kit - Dx: Type 2 DM - Uncontrolled E11.65 blood sugar diagnostic (FREESTYLE LITE STRIPS) test strip 100 strip 11 Sig: Test blood sugar(s) 3-4 times daily. Dx: Type 2 DM - Uncontrolled E11.65 Insulin: Yes Smiley Melo APRN.CNP MEDICARE now require name brand on rx. Please send to pharmacy documented in this encounter [facility] 03-03-2025 Telephone encounter Note MEDICARE now require name brand on rx. Please send to pharmacy [facility] 03-01-2025 Note Addended by: SMILEY MELO on: 03/01/2025 10:45 AM Modules accepted: Orders [facility] 03-01-2025 Miscellaneous Notes Addended by: SMILEY MELO on: 03/01/2025 10:45 AM Modules accepted: Orders Addended by: SMILEY MELO on: 03/01/2025 10:14 AM Modules accepted: Orders documented in this encounter [facility] 03-01-2025 Note Addended by: SMILEY MELO on: 03/01/2025 10:14 AM Modules accepted: Orders [facility] 03-01-2025 Instructions Smiley Melo APRN.CNP - 03/01/2025 10:05 AM EDT - Fill and start the azithromycin ( Z-Pavel ) prescription for your chest infection; it has been sent to [facility]. - Fill and start the nitrofurantoin (Macrobid) prescription for your urinary tract infection; it has been sent to [facility]. - Go to the lab today to have the blood work drawn as ordered. - supervisor cereal your new glucose meter and test strips at [facility] once they arrive. documented in this encounter [facility] 03-01-2025 Note HNO ID: [id number] Author: SMILEY MELO APRN.CNP Service: ? Author Type: Nurse Practitioner Type: Progress Notes Filed: 03/01/2025 10:06 Note Text: Chief Reason For Appointment Patient presents with: UTI: Dysuria and frequency 3-4 weeks + abd pain Cough: Nonproductive two and a half weeks Ivet Valero is a 69 year old female who presents for annual exam. Last office visit date: 07/26/2024 Accompanied By self only Have you had any critical events, hospital stays, ER visits, surgeries or procedures since your last visit here in our office: No Specialists/Other Healthcare Providers Seen: Patient Care Team: Ricci Cole MD as PCP - General (Family Medicine) Toña Sawyer MD (Endocrinology) Estefania, Dylan Huffman DO as Oil Agent (Gastroenterology) Nanci Huber APRN.CNP as Tech Brazer Tester (Family Medicine) Smiley Melo APRN.CNP as Tech Brazer Tester (Family Medicine) Concerns today: Cough, congestion and burning with urination HPI Here for wellness visit but sick. Has been sick for 3 weeks. Laying on couch. Not even able to get groceries. DM: Reports overall feeling well. Medication side effects: No. Home sugar checks: Not testing Hypoglycemic spells: No. Watching diet: No. Unexpected weight loss: No. Polyuria, polydipsia: Yes. Vision Changes: Yes. Foot lesions or numbness or pain: Yes. Ivet Valero is a 69-year-old female with a history of diabetes and bronchitis, presenting with dysuria, chest congestion, and headaches. Dysuria: - Chronic dysuria. - History of hospitalization for UTI. Chest Congestion: - Chest congestion x3 weeks. - Associated with headaches, cough, wheezing, and dyspnea. - Producing phlegm. - Denies fever, chills, or diarrhea. Headaches: - Severe headaches x3 weeks, exacerbated by coughing. - No aura preceding headaches. - If not controlled, headaches progress to migraines. Nausea: - Nausea with dry heaving x3 weeks. Diabetes: - Blood sugars fairly in the middle. - Ivet needs a new glucose meter. - Denies hypoglycemia. - Reports excessive thirst. - Vision changes; plans for cataract surgery. - Mild numbness and tingling in feet. Bronchitis: - Not taking Breo or inhaler due to perceived lack of efficacy. - Smoker, but reports reduced smoking. - Tried Chantix previously, but experienced adverse effects. Generalized Aches: - Ivet reports generalized body aches. Dizziness: - Experiences dizziness upon standing, requiring a moment to stabilize. Active Problems ACTIVE PROBLEM LIST Mixed Stress and Urge Urinary Incontinence - 04/16/2023 Comment: Has seen urology for same. Esophageal Varices Without Bleeding (Hcc) - 07/22/2022 Denny (Nonalcoholic Steatohepatitis) - 06/14/2022 Leukocytosis - 01/05/2022 Comment: Has seen Dr. Salazar chronic leukocytosis secondary to chronic bronchitis and tobacco abuse Secondary polycythemia secondary to tobacco abuse AND Carbon Monoxide toxicity Chronic Gastritis Without Bleeding - 09/07/2021 Comment: 11/07/17 NM gastric emptying solid: 1% retention at 1hr (rapid emptying is <30% retention at 1hr) = accelerated rate. 12/06/[address] Garcia dx nausea: patchy erythema in gastric antrum, esophagus, duodenum WNL, Large amount of food in stomach.Rec gastric emptying study. 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 Chronic Bronchitis (Hcc) Migraine With Aura Panic Disorder Without Agoraphobia ROS: Constitutional: (-) fever, (-) chills Head: (+) headaches Eyes: (+) vision changes Ears/Nose/Mouth/Throat: (+) head congestion, (-) ear pressure Respiratory: (+) chest congestion, (+) shortness of breath, (+) cough, (+) wheezing, (+) sputum production Gastrointestinal: (+) nausea, (+) vomiting, (-) diarrhea Genitourinary: (+) dysuria, (-) hematuria Musculoskeletal: (+) body aches Neurological: (+) dizziness, (+) paresthesia feet Psychiatric: (-) suicidal thoughts Endocrine: (+) excessive thirst, (-) hypoglycemia PAST MEDICAL HISTORY Diagnosis Date Chronic airway obstruction, not elsewhere classified Degeneration of cervical intervertebral disc related to neck injury Depressive disorder, not elsewhere classified DM (diabetes mellitus) (HCC) Fibromyalgia Migraine with aura, without mention of intractable migraine without mention of status migrainosus Panic disorder without agoraphobia had hx of failed urine screen Recurrent UTI Tobacco use disorder PAST SURGIC (more content not included)... [facility] 03-01-2025 History of Present illness Narrative Chief Reason For Appointment Patient presents with: UTI: Dysuria and frequency 3-4 weeks + abd pain Cough: Nonproductive two and a half weeks Ivet Valero is a 69 year old female who presents for annual exam. Last office visit date: 07/26/2024 Accompanied By self only Have you had any critical events, hospital stays, ER visits, surgeries or procedures since your last visit here in our office: No Specialists/Other Healthcare Providers Seen: Patient Care Team: Ricci Cole MD as PCP - General (Family Medicine) Toña Sawyer MD (Endocrinology) Estefania, Dylan Huffman DO as Oil Agent (Gastroenterology) Nanci Huber APRN.LINE THERAPIST as Tech Brazer Tester (Family Medicine) Smiley Melo APRN.LINE THERAPIST as Tech Brazer Tester (Family Medicine) Concerns today: Cough, congestion and burning with urination HPI Here for wellness visit but sick. Has been sick for 3 weeks. Laying on couch. Not even able to get groceries. DM: Reports overall feeling well. Medication side effects: No. Home sugar checks: Not testing Hypoglycemic spells: No. Watching diet: No. Unexpected weight loss: No. Polyuria, polydipsia: Yes. Vision Changes: Yes. Foot lesions or numbness or pain: Yes. Ivet Valero is a 69-year-old female with a history of diabetes and bronchitis, presenting with dysuria, chest congestion, and headaches. Dysuria: - Chronic dysuria. - History of hospitalization for UTI. Chest Congestion: - Chest congestion x3 weeks. - Associated with headaches, cough, wheezing, and dyspnea. - Producing phlegm. - Denies fever, chills, or diarrhea. Headaches: - Severe headaches x3 weeks, exacerbated by coughing. - No aura preceding headaches. - If not controlled, headaches progress to migraines. Nausea: - Nausea with dry heaving x3 weeks. Diabetes: - Blood sugars fairly in the middle. - Ivet needs a new glucose meter. - Denies hypoglycemia. - Reports excessive thirst. - Vision changes; plans for cataract surgery. - Mild numbness and tingling in feet. Bronchitis: - Not taking Breo or inhaler due to perceived lack of efficacy. - Smoker, but reports reduced smoking. - Tried Chantix previously, but experienced adverse effects. Generalized Aches: - Ivet reports generalized body aches. Dizziness: - Experiences dizziness upon standing, requiring a moment to stabilize. Active Problems ACTIVE PROBLEM LIST Mixed Stress and Urge Urinary Incontinence - 04/16/2023 Comment: Has seen urology for same. Esophageal Varices Without Bleeding (Hcc) - 07/22/2022 Denny (Nonalcoholic Steatohepatitis) - 06/14/2022 Leukocytosis - 01/05/2022 Comment: Has seen Dr. Salazar chronic leukocytosis secondary to chronic bronchitis and tobacco abuse Secondary polycythemia secondary to tobacco abuse & Carbon Monoxide toxicity Chronic Gastritis Without Bleeding - 09/07/2021 Comment: 11/07/17 NM gastric emptying solid: 1% retention at 1hr (rapid emptying is <30% retention at 1hr) = accelerated rate. 12/06/[address] Garcia dx nausea: patchy erythema in gastric antrum, esophagus, duodenum WNL, Large amount of food in stomach.Rec gastric emptying study. 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 Chronic Bronchitis (Hcc) Migraine With Aura Panic Disorder Without Agoraphobia ROS: Constitutional: (-) fever, (-) chills Head: (+) headaches Eyes: (+) vision changes Ears/Nose/Mouth/Throat: (+) head congestion, (-) ear pressure Respiratory: (+) chest congestion, (+) shortness of breath, (+) cough, (+) wheezing, (+) sputum production Gastrointestinal: (+) nausea, (+) vomiting, (-) diarrhea Genitourinary: (+) dysuria, (-) hematuria Musculoskeletal: (+) body aches Neurological: (+) dizziness, (+) paresthesia feet Psychiatric: (-) suicidal thoughts Endocrine: (+) excessive thirst, (-) hypoglycemia PAST MEDICAL HISTORY Diagnosis Date Chronic airway obstruction, not elsewhere classified Degeneration of cervical intervertebral disc related to neck injury Depressive disorder, not elsewhere classified DM (diabetes mellitus) (HCC) Fibromyalgia Migraine with aura, without mention of intractable migraine without mention of status migrainosus Panic disorder without agoraphobia had hx of failed urine screen Recurrent UTI Tobacco use disorder PAST SURGICAL HISTORY Procedure Laterality Date CHOLECYSTECTOMY ESOPHAGOGASTRODUODENOSCOPY TRANSORAL DIAGNOSTIC 12/06/2015 EGD LIG/TRNSXJ FLP TUBE ABDL/VAG APPR UNI/BI Tubal ligation PAST SURGICAL HISTORY OF Left 03/2014 ANKLE FRACTURE REPAIR S SLING BLADDER 2012 & TOTAL ABDOMINAL HYSTERECT W/WO RMVL TUBE OVARY Hysterectomy, REJI Medication List Current Outpatient Medications Medication Sig Dispense Refill albuterol HFA (VENTOLIN HFA) 90 mcg/actuation inhaler Inhale 2 Puffs as instructed every 4 hours as needed. 18 g 5 promethazine (PHENERGAN) 25 mg tablet Take 1 tablet by mouth every 6 hours as needed for nausea/vomiting. 20 tablet 2 omeprazole (PRILOSEC) 40 mg capsule Take 1 capsule by mouth once daily. 90 capsule 0 insulin glargine U-300 conc (TOUJEO) 300 unit/mL (1.5 mL) Inject 80 Units subcutaneously every morning. E11.9 Dispense 2 boxes of 3 pens. 8 mL 2 insulin lispro (HUMALOG KWIKPEN INSULIN) 100 unit/mL Inject 12 Units subcutaneously three times a day before meals. And sliding scale up to 38 units tid. 3 Each 5 gabapentin (NEURONTIN) 400 mg capsule Take 1 capsule by mouth three times a day for 90 days. 90 capsule 2 topiramate (TOPAMAX) 50 mg tablet Take 1 tablet by mouth two times a day. 60 tablet 5 blood sugar diagnostic (BLOOD GLUCOSE TEST) test strip Test blood sugar(s) 3-4 times daily. Dx: Type 2 DM - Controlled E11.9 Insulin: Yes 100 Strip 11 Lancets Test blood sugar(s) 3-4 times daily. Dx: Type 2 DM-Controlled Insulin: Yes 100 Each 11 carvedilol (COREG) 12.5 mg tablet Take 1 tablet by mouth two times a day. (Patient not taking: Reported on 03/01/2025) 180 tablet 3 Insulin [place], Disposable, (BD ULTRA-FINE MINDY PEN NEEDLE) 32 gauge x 5/32 Use one needle for each dose, 4 times daily. (4mm) 120 Each 11 fluticasone-vilanterol (BREO ELLIPTA) 100-25 mcg/dose inhaler Inhale 1 Inhalation as instructed once daily. (Patient not taking: Reported on 03/01/2025) 1 Each 5 nystatin (MYCOSTATIN) powder Apply 1 application to affected area four times daily. 30 g 1 ergocalciferol 50,000 unit capsule (VITAMIN D2, DRISDOL) Take 1 capsule by mouth one time a week. 12 capsule 3 albuterol (PROVENTIL) 2.5 mg /3 mL (0.083 %) nebulizer solution Use 3 mL via nebulizer every 4 hours as needed for wheezing/shortness of breath. Use over 5-15minutes. 120 mL 3 atorvastatin (LIPITOR) 20 mg tablet Take 1 tablet by mouth daily at bedtime. For cholesterol. (Patient not taking: Reported on 03/01/2025) 30 tablet 5 busPIRone (BUSPAR) 10 mg tablet Take 1 tablet by mouth three times daily. 90 tablet 3 escitalopram oxalate (LEXAPRO) 20 mg tablet Take 10 mg by mouth once daily. buPROPion XL (WELLBUTRIN XL) 150 mg 24 hr tablet Take 300 mg by mouth once daily. Insulin [place], Disposable, 32 gauge x 5/16 ndle Use four times daily with insulin 200 Each 0 QUEtiapine XR (SEROQUEL XR) 300 mg 24 hr tablet Take 300 mg by mouth daily at bedtime. Blood Pressure Monitor EXLARGE BLOOD PRESSURE CUFF MONITOR KIT checking bp 4 times daily 1 Kit 0 No current facility-administered medications for this visit. Weight Summary: Weight Change: There is no height or weight on file to calculate BMI. Last Wt 07/26/24 : 103 kg (227 lb 1.2 oz) 04/29/24 : 105.2 kg (232 lb) 03/23/24 : 103.4 kg (228 lb) 08/15/23 : 106.6 kg (235 lb) 07/09/23 : 102.7 kg (226 lb 6.4 oz) Physical Exam: GENERAL: NAD, alert and oriented SKIN: clammy, no rash or skin lesions. HEAD: normocephalic EARS: external ears normal, canals clear, TM's opaque. NOSE/SINUSES: Nares red and boggy- no erosion. Septum midline. OROPHARYNX: lips, mucosa, and tongue normal, good dentition. No oral lesions noted. Oropharnyx red. NECK: Supple, no lymphadenopathy, normal thyroid, no carotid bruits. LUNGS: Clear to auscultation bilaterally, no wheezes/rhonchi/rales. HEART: Regular rate and rhythm, no murmurs. No ectopy. EXTREMITIES: Normal, No deformities, No skin discoloration, No edema. NEURO: Awake, alert and oriented x3, cranial nerves II-XII grossly intact, normal gait, no involuntary motions SCREENINGS Health Maintenance Listing DTaP,Tdap,Td Vaccine(1 - Tdap) Colorectal Cancer Screening Lung Cancer Screening RSV Vaccine(1 - Risk 60-74 years 1-dose series) Shingrix Vaccine(2 of 2) Mammogram Screening Bone Density Screening HbA1C Urine Albumin:Creatinine Ratio Covid-19 Vaccine( season) LDL Cholesterol Advance Directive Discussion Medicare Advantage Annual Wellness Visit Dilated Retinal Exam TEST RESULTS: Lab Studies: Date of lab studies: URINE + nitrates and leukocytes, trace blood Check labs today - glucose - potassium - Creatinine, gfr - LFTs Lipid: WBC, H&H, Platelets: A1C: Vitamin D: Other: A/P: 1. Dysuria (R30.0) 2. Recurrent UTI (urinary tract infection) (N39.0) - Chronic dysuria with recurrent UTIs; recent episode requiring hospitalization. - Urinalysis pending. - Initiated Macrobid for current UTI. 3. Fibromyalgia (M79.7) - Chronic condition contributing to generalized body aches. - Continue current management. 4. Primary hypertension (I10) - Monitor blood pressure regularly. 5. Mixed stress and urge urinary incontinence (N39.46) - No specific treatment changes discussed. 6. Tobacco use disorder (F17.200) - Patient continues to smoke but expresses interest in reducing use. - Previous trial of Chantix resulted in adverse effects; no current pharmacological intervention planned. 7. Uncontrolled type 2 diabetes mellitus with hyperglycemia (HCC) (E11.65) 8. Type 2 diabetes mellitus without complication, without long-term current use of insulin (HCC) (E11.9) - Blood glucose levels reportedly stable; no recent hypoglycemic episodes. - Ordered new glucose meter and test strips through [facility]. - Advised dietary management. - Scheduled for blood work today. 9. Hyperlipidemia, mixed (E78.2) - No specific treatment changes discussed. 10. Chronic bronchitis, unspecified chronic bronchitis type (HCC) (J42) - Acute exacerbation with cough, wheezing, and dyspnea for 3 weeks. - Discontinued Breo and inhaler due to perceived ineffectiveness. - Initiated Z-Pavel for respiratory symptoms. 11. Obesity, Class II, BMI 35-39.9 (E66.812) - No specific treatment changes discussed. 12. Vitamin D deficiency (E55.9) - No specific treatment changes discussed. Discussed treatment plan and patient voices understanding. Patient's questions answered appropriately. Medications and potential side effects were discussed and patient voices understanding. Return to the office as scheduled or as needed for worsening/no improvement. Follow Up Plans: 3 m documented in this encounter [facility] 02-15-2025 Note Patient Outreach (FA MPWS) ---- IVET VALERO ([id number]) 1955 F Date Time Provider Department 02/15/25 RICCI COLE During your visit today, we recorded the following information about you: Allergies As of Date: 02/15/2025 Noted Allergy Reaction CHANTIX (VARENICLINE) 01/22/2019 1 - Mental Status Change PENICILLINS 05/25/2008 4 - Hives SULFA (SULFONAMIDE ANTIBIOTICS) 09/19/2016 2 - Rash 14 - Other: See Comments Comments: Blisters and sore in throat Date Reviewed: 07/26/2024 Reviewed by: Smiley Melo APRN.LINE THERAPIST - Fully Assessed Visit Diagnosis:Encounter for screening mammogram for breast cancer [Z12.31] Order(s):JANELL SCREENING Debora SUTHERLAND [[id number]] Order #: [id number] FUTURE Prescriptions as of 03/18/2025 - predniSONE (DELTASONE) 10 mg tablet Take 4 tabs for 3 days, then 2 tabs for 3 days then 1 tab for 3 days with food. - doxycycline (VIBRA-TABS) 100 mg tablet Take 1 tablet by mouth two times a day for 14 days. - promethazine (PHENERGAN) 25 mg tablet Take 1 tablet by mouth every 6 hours as needed for nausea/vomiting. - Blood-Glucose Meter monitoring kit Glucose Meter of Choice - Kit - Dx: Type 2 DM - Uncontrolled E11.65 - blood sugar diagnostic (FREESTYLE LITE STRIPS) test strip Test blood sugar(s) 3-4 times daily. Dx: Type 2 DM - Uncontrolled E11.65 Insulin: Yes - rosuvastatin (CRESTOR) 5 mg tablet Take 1 tablet by mouth once daily. - Cyanocobalamin 1,000 mcg TbER Take 1 tablet by mouth once daily. B12 - ergocalciferol 50,000 unit capsule (VITAMIN D2, DRISDOL) Take 1 capsule by mouth every other week. - gabapentin (NEURONTIN) 400 mg capsule Take 1 capsule by mouth three times a day for 90 days. - Lancets Test blood sugar(s) 3-4 times daily. Dx: Type 2 DM-Controlled Insulin: Yes - blood sugar diagnostic (BLOOD GLUCOSE TEST) test strip Test blood sugar(s) 3-4 times daily. Dx: Type 2 DM - Controlled E11.9 Insulin: Yes - omeprazole (PRILOSEC) 40 mg capsule Take 1 capsule by mouth once daily. - insulin glargine U-300 conc (TOUJEO) 300 unit/mL (1.5 mL) Inject 80 Units subcutaneously every morning. E11.9 Dispense 2 boxes of 3 pens. - insulin lispro (HUMALOG KWIKPEN INSULIN) 100 unit/mL Inject 12 Units subcutaneously three times a day before meals. And sliding scale up to 38 units tid. - Insulin [place], Disposable, ([place] ULTRA-FINE MINDY PEN NEEDLE) 32 gauge x 5/32 Use one needle for each dose, 4 times daily. (4mm) - albuterol HFA (VENTOLIN HFA) 90 mcg/actuation inhaler Inhale 2 Puffs as instructed every 4 hours as needed. - fluticasone-vilanterol (BREO ELLIPTA) 100-25 mcg/dose inhaler Inhale 1 Inhalation as instructed once daily. - nystatin (MYCOSTATIN) powder Apply 1 application to affected area four times daily. - albuterol (PROVENTIL) 2.5 mg /3 mL (0.083 %) nebulizer solution Use 3 mL via nebulizer every 4 hours as needed for wheezing/shortness of breath. Use over 5-15minutes. - busPIRone (BUSPAR) 10 mg tablet Take 1 tablet by mouth three times daily. - escitalopram oxalate (LEXAPRO) 20 mg tablet Take 10 mg by mouth once daily. - buPROPion XL (WELLBUTRIN XL) 150 mg 24 hr tablet Take 300 mg by mouth once daily. - Insulin [place], Disposable, 32 gauge x 5/16 ndle Use four times daily with insulin - QUEtiapine XR (SEROQUEL XR) 300 mg 24 hr tablet Take 300 mg by mouth daily at bedtime. - Blood Pressure Monitor EXLARGE BLOOD PRESSURE CUFF MONITOR KIT checking bp 4 times daily Problem List As Of Date 02/15/2025 Noted Resolved TOBACCO USE DISORDER [F17.200] CERVICAL DISC DEGEN [M50.30] Chronic bronchitis (HCC) [J42] Depressive disorder, not elsewhere classified [* 01/05/2022 Persistent disorder of initiating or maintainin*05/25/2008 01/05/2022 Migraine with aura [G43.109] PANIC DISORDER WITHOUT AGORAPHOBIA [F41.0] Fibromyalgia [M79.7] History of recurrent UTIs [Z87.440] 11/30/2015 Uncontrolled type 2 diabetes mellitus with hype* Secondary polycythemia [D75.1] 09/10/2017 Depression, major, recurrent, in complete remis*07/23/2018 Hyperlipidemia, mixed [E78.2] 02/01/2019 Chronic cough [R05.3] 01/04/2020 01/05/2022 Obesity, Class II, BMI 35-39.9 [E66.812] 02/29/2020 SOB (shortness of breath) [R06.02] 08/23/2020 01/05/2022 Acute bronchitis with chronic obstructive pulmo*10/02/2020 01/05/2022 Chest pressure [R07.89] 12/11/2020 01/05/2022 Rash [R21] 01/01/2021 01/05/2022 Primary hypertension [I10] 01/08/2021 Chronic gastritis without bleeding [K29.50] 09/07/2021 Leukocytosis [D72.829] 01/05/2022 Mixed stress and urge urinary incontinence [N39*04/16/2023 Esophageal varices without bleeding (HCC) [I85.*07/22/2022 Diagnosed: 08/15/2023 DENNY (nonalcoholic steatohepatitis) [K75.81] 06/14/2022 Diagnosed: 08/15/2023 Encounter Status:Closed by ANN-MARIE MARTINEZ on 03/18/25 [facility] 01-25-2025 Telephone encounter Note Patient requesting medication that is : promethazine (PHENERGAN) 25 mg suppository Patient last seen: 07-26-24 Future visit scheduled: yes PHARMACY: [facility] 01-25-2025 Miscellaneous Notes Patient requesting medication that is : promethazine (PHENERGAN) 25 mg suppository Patient last seen: 07-26-24 Future visit scheduled: yes PHARMACY: [facility] documented in this encounter [facility] 01-03-2025 Note HNO ID: [id number] Author: LOU OSMAN MA Service: ? Author Type: Energy Scheduler Type: Progress Notes Filed: 01/03/2025 16:34 Note Text: POPULATION HEALTH NAVIGATION OUTREACH Action/FYI UPDATED APPOINTMENT NOTE HCC CLOSURE Topic Due (Y or N) Comments Medicare Wellness Y PCP Follow up Colorectal Cancer Screening Y Controlling Blood Pressure A1C Y HCC Y Flu Vaccine Care Everywhere Reviewed MyChart Activation Updated Appointment Note Y Reason for Outreach Care Gap/HCC or Scheduling Wellness Visits Care Gaps due: Medicare Annual Wellness Visit Colorectal Cancer Screening HBA1C Patient Contacted: Unable or unnecessary to reach patient: HCC related Patient already scheduled Updated appointment notes Navigation Signature: Lou Osman MA January 03, 2025 4:04 PM [facility] 01-03-2025 History of Present illness Narrative POPULATION HEALTH NAVIGATION OUTREACH Action/FYI UPDATED APPOINTMENT NOTE HCC CLOSURE Topic Due (Y or N) Comments Medicare Wellness Y PCP Follow up Colorectal Cancer Screening Y Controlling Blood Pressure A1C Y HCC Y Flu Vaccine Care Everywhere Reviewed MyChart Activation Updated Appointment Note Y Reason for Outreach Care Gap/HCC or Scheduling Wellness Visits Care Gaps due: Medicare Annual Wellness Visit Colorectal Cancer Screening HBA1C Patient Contacted: Unable or unnecessary to reach patient: HCC related Patient already scheduled Updated appointment notes Navigation Signature: Lou Osman MA January 03, 2025 4:04 PM documented in this encounter [facility] 01-03-2025 Note Patient Outreach (NE TNAV) ---- ANJUMIVET ([id number]) 1955 F Date Time Provider Department 01/03/25 LOU OSMAN During your visit today, we recorded the following information about you: Lou Osman MA 01/03/2025 4:34 PM Signed POPULATION HEALTH NAVIGATION OUTREACH Action/FYI UPDATED APPOINTMENT NOTE HCC CLOSURE Topic Due (Y or N) Comments Medicare Wellness Y PCP Follow up Colorectal Cancer Screening Y Controlling Blood Pressure A1C Y HCC Y Flu Vaccine Care Everywhere Reviewed MyChart Activation Updated Appointment Note Y Reason for Outreach Care Gap/HCC or Scheduling Wellness Visits Care Gaps due: Medicare Annual Wellness Visit Colorectal Cancer Screening HBA1C Patient Contacted: Unable or unnecessary to reach patient: HCC related Patient already scheduled Updated appointment notes Navigation Signature: Lou Osman MA January 03, 2025 4:04 PM Allergies As of Date: 01/03/2025 Noted Allergy Reaction CHANTIX (VARENICLINE) 01/22/2019 1 - Mental Status Change PENICILLINS 05/25/2008 4 - Hives SULFA (SULFONAMIDE ANTIBIOTICS) 09/19/2016 2 - Rash 14 - Other: See Comments Comments: Blisters and sore in throat Date Reviewed: 07/26/2024 Reviewed by: Smiley Melo APRN.LINE THERAPIST - Fully Assessed Reason for Visit: Population Health Navigation Outreach [3910] Cmt: LARY RIDDLE Primary Visit Diagnosis:Uncontrolled type 2 diabetes mellitus with hyperglycemia (HCC) [E11.65] Order(s):HEMOGLOBIN A1C [SUNPA7Y] Order #: [id number] FUTURE COMPLETE BLOOD COUNT AND DIFFERENTIAL [SQCBCDIF] Order #: [id number] FUTURE COMPREHENSIVE METABOLIC PANEL [SQCMP] Order #: [id number] FUTURE LIPID PANEL, FASTING [SQLIPB] Order #: [id number] FUTURE Prescriptions as of 01/03/2025 - insulin glargine U-300 conc (TOUJEO) 300 unit/mL (1.5 mL) Inject 80 Units subcutaneously every morning. E11.9 Dispense 2 boxes of 3 pens. - promethazine (PHENERGAN) 25 mg tablet Take 1 tablet by mouth every 6 hours as needed for nausea/vomiting. - insulin lispro (HUMALOG KWIKPEN INSULIN) 100 unit/mL Inject 12 Units subcutaneously three times a day before meals. And sliding scale up to 38 units tid. - gabapentin (NEURONTIN) 400 mg capsule Take 1 capsule by mouth three times a day for 90 days. - topiramate (TOPAMAX) 50 mg tablet Take 1 tablet by mouth two times a day. - blood sugar diagnostic (BLOOD GLUCOSE TEST) test strip Test blood sugar(s) 3-4 times daily. Dx: Type 2 DM - Controlled E11.9 Insulin: Yes - Lancets Test blood sugar(s) 3-4 times daily. Dx: Type 2 DM-Controlled Insulin: Yes - carvedilol (COREG) 12.5 mg tablet Take 1 tablet by mouth two times a day. - Insulin [place], Disposable, (BD ULTRA-FINE MINDY PEN NEEDLE) 32 gauge x 5/32 Use one needle for each dose, 4 times daily. (4mm) - albuterol HFA (VENTOLIN HFA) 90 mcg/actuation inhaler Inhale 2 Puffs as instructed every 4 hours as needed. - fluticasone-vilanterol (BREO ELLIPTA) 100-25 mcg/dose inhaler Inhale 1 Inhalation as instructed once daily. - nystatin (MYCOSTATIN) powder Apply 1 application to affected area four times daily. - ergocalciferol 50,000 unit capsule (VITAMIN D2, DRISDOL) Take 1 capsule by mouth one time a week. - albuterol (PROVENTIL) 2.5 mg /3 mL (0.083 %) nebulizer solution Use 3 mL via nebulizer every 4 hours as needed for wheezing/shortness of breath. Use over 5-15minutes. - atorvastatin (LIPITOR) 20 mg tablet Take 1 tablet by mouth daily at bedtime. For cholesterol. - busPIRone (BUSPAR) 10 mg tablet Take 1 tablet by mouth three times daily. - omeprazole (PRILOSEC) 40 mg capsule Take 1 capsule by mouth once daily. - escitalopram oxalate (LEXAPRO) 20 mg tablet Take 20 mg by mouth once daily. - buPROPion XL (WELLBUTRIN XL) 150 mg 24 hr tablet Take 1 tablet by mouth once daily. - Insulin [place], Disposable, 32 gauge x 5/16 ndle Use four times daily with insulin - QUEtiapine XR (SEROQUEL XR) 300 mg 24 hr tablet Take 300 mg by mouth daily at bedtime. - Blood Pressure Monitor EXLARGE BLOOD PRESSURE CUFF MONITOR KIT checking bp 4 times daily Problem List As Of Date 01/03/2025 Noted Resolved TOBACCO USE DISORDER [F17.200] CERVICAL DISC DEGEN [M50.30] Chronic bronchitis (HCC) [J42] Depressive disorder, not elsewhere classified [* 01/05/2022 Persistent disorder of initiating or maintainin*05/25/2008 01/05/2022 Migraine with aura [G43.109] PANIC DISORDER WITHOUT AGORAPHOBIA [F41.0] Fibromyalgia [M79.7] History of recurrent UTIs [Z87.440] 11/30/2015 Uncontrolled type 2 diabetes mellitus with hype* Secondary polycythemia [D75.1] 09/10/2017 Depression, major, recurrent, in complete remis*07/23/2018 Hyperlipidemia, mixed [E78.2] 02/01/2019 Chronic cough [R05.3] 01/04/2020 01/05/2022 Obesity, Class II, BMI 35-39.9 [E66.812] 02/29/2020 SOB (shortn (more content not included)... [facility] 12-28-2024 Telephone encounter Note Completed form faxed [facility] 12-28-2024 Miscellaneous Notes Completed form faxed Fax received. Type of form: Certificate of Medical Necessity Form received via fax When form is completed, Fax form to [facility] at [phone] Form has been forwarded to Physician: Dr Kelsey Yeung MA Ivet is a patient of MD geraldine Martines from [employer] called and stated she will be faxing the order form for incontinent supplies to [phone]. Please call with any questions. Patient has been identified by name and birthdate. Was an appointment scheduled: No Closing statement: Results or non-symptom based questions: Thank you for calling [facility], your call will be returned within the next business day. Joycelyn Vicente Pss documented in this encounter [facility] 12-27-2024 Telephone encounter Note Fax received. Type of form: Certificate of Medical Necessity Form received via fax When form is completed, Fax form to [email or web address] at [phone] Form has been forwarded to Physician: Dr Kelsey Yeung MA [facility] 12-24-2024 Telephone encounter Note The patient has been identified by name and date of : Yes Caregiver verified no other encounters exist for this prescription request: Yes Caregiver confirmed with patient/requestor that no other refills are due, in the near future, with this provider at this time: Yes The last office visit in the department: 07/26/2024 Does the patient have a future office visit with this provider/department: 01/24/2025 Requested Prescriptions Pending Prescriptions Disp Refills insulin glargine U-300 conc (TOUJEO) 300 unit/mL (1.5 mL) 8 mL 2 Sig: Inject 80 Units subcutaneously every morning. E11.9 Dispense 2 boxes of 3 pens. Sue Quinonez RN December 24, 2024 4:14 PM [facility] 12-24-2024 Miscellaneous Notes The patient has been identified by name and date of : Yes Caregiver verified no other encounters exist for this prescription request: Yes Caregiver confirmed with patient/requestor that no other refills are due, in the near future, with this provider at this time: Yes The last office visit in the department: 07/26/2024 Does the patient have a future office visit with this provider/department: 01/24/2025 Requested Prescriptions Pending Prescriptions Disp Refills insulin glargine U-300 conc (TOUJEO) 300 unit/mL (1.5 mL) 8 mL 2 Sig: Inject 80 Units subcutaneously every morning. E11.9 Dispense 2 boxes of 3 pens. Sue Quinonez RN December 24, 2024 4:14 PM documented in this encounter [facility] 12-23-2024 Telephone encounter Note Ivet is a patient of MD geraldine Martines from [employer] called and stated she will be faxing the order form for incontinent supplies to [phone]. Please call with any questions. Patient has been identified by name and birthdate. Was an appointment scheduled: No Closing statement: Results or non-symptom based questions: Thank you for calling [facility], your call will be returned within the next business day. Joycelyn Greer [facility] 11-10-2024 Telephone encounter Note Pt has been sick for about a week and a half and also states UTI symptoms for a couple of weeks. Protocol recommends see provider within 4 hours. Pt states she isn't sure if she can find a ride-strongly encouraged to find a ride and come into [facility] soon as she [facility]. If unable to find a ride before they close at 8 pm, encouraged to go to ER. Reason for Disposition Side (flank) or lower back pain present [1] Pain or burning with passing urine (urination) AND [2] female [1] MILD difficulty breathing (e.g., minimal/no SOB at rest, SOB with walking, pulse <100) AND [2] still present when not coughing Answer Assessment - Initial Assessment Questions 1. SEVERITY: moderate - MILD (1-3): Complains slightly about urination hurting. - MODERATE (4-7): Interferes with normal activities. - SEVERE (8-10): Excruciating, unwilling or unable to urinate because of the pain. 2. FREQUENCY: has been having pain, burning, frequency, urgency and incontinent of urine when she stands up. 3. PATTERN: daily 4. ONSET: a couple of weeks ago 5. FEVER: n/a 6. PAST UTI: hx of UTI 7. CAUSE: UTI 8. OTHER SYMPTOMS: See above. Pt also feels she has bronchitis with a severe cough 9. : n/a Answer Assessment - Initial Assessment Questions 1. ONSET: 1 1/2 weeks ago 2. SEVERITY: severe. States she can't stop coughing and it is keeping her up at night. 3. SPUTUM: grayish white 4. HEMOPTYSIS: n/a 5. DIFFICULTY BREATHING: mild to moderate - MILD: No SOB at rest, mild SOB with walking, speaks normally in sentences, can lie down, no retractions, pulse < 100. - MODERATE: SOB at rest, SOB with minimal exertion and prefers to sit, cannot lie down flat, speaks in phrases, mild retractions, audible wheezing, pulse 100-120. - SEVERE: Very SOB at rest, speaks in single words, struggling to breathe, sitting hunched forward, retractions, pulse > 120. 6. FEVER: n/a 7. CARDIAC HISTORY: n/a 8. LUNG HISTORY:COPD and chronic bronchitis 9. PE RISK FACTORS: n/a 10. OTHER SYMPTOMS: UTI symptoms 11. : n/a 12. TRAVEL: n/a Answer Assessment - Initial Assessment Questions 1. SYMPTOM: Pt c/o lower back and lower abd pain. Pain, burning, frequency, urgency and incontinence of urine 2. ONSET: states symptoms started a couple of weeks go. 3. PAIN: moderate 4. CAUSE: states this is how she feels when she has a bad bladder infection 5. OTHER SYMPTOMS:see above. Pt also thinks she has bronchitis. 6. :n/a Protocols used: Urinary Wavwrnge-KHCMK-PU, Urination Pain - Xzfszb-ABSWO-YQ, Cough - Acute Sdddmbxzhf-ZUMKF-EW [facility] 11-10-2024 Miscellaneous Notes Pt has been sick for about a week and a half and also states UTI symptoms for a couple of weeks. Protocol recommends see provider within 4 hours. Pt states she isn't sure if she can find a ride-strongly encouraged to find a ride and come into [facility] as soon as she [facility]. If unable to find a ride before they close at 8 pm, encouraged to go to ER. Reason for Disposition Side (flank) or lower back pain present [1] Pain or burning with passing urine (urination) AND [2] female [1] MILD difficulty breathing (e.g., minimal/no SOB at rest, SOB with walking, pulse <100) AND [2] still present when not coughing Answer Assessment - Initial Assessment Questions 1. SEVERITY: moderate - MILD (1-3): Complains slightly about urination hurting. - MODERATE (4-7): Interferes with normal activities. - SEVERE (8-10): Excruciating, unwilling or unable to urinate because of the pain. 2. FREQUENCY: has been having pain, burning, frequency, urgency and incontinent of urine when she stands up. 3. PATTERN: daily 4. ONSET: a couple of weeks ago 5. FEVER: n/a 6. PAST UTI: hx of UTI 7. CAUSE: UTI 8. OTHER SYMPTOMS: See above. Pt also feels she has bronchitis with a severe cough 9. : n/a Answer Assessment - Initial Assessment Questions 1. ONSET: 1 1/2 weeks ago 2. SEVERITY: severe. States she can't stop coughing and it is keeping her up at night. 3. SPUTUM: grayish white 4. HEMOPTYSIS: n/a 5. DIFFICULTY BREATHING: mild to moderate - MILD: No SOB at rest, mild SOB with walking, speaks normally in sentences, can lie down, no retractions, pulse < 100. - MODERATE: SOB at rest, SOB with minimal exertion and prefers to sit, cannot lie down flat, speaks in phrases, mild retractions, audible wheezing, pulse 100-120. - SEVERE: Very SOB at rest, speaks in single words, struggling to breathe, sitting hunched forward, retractions, pulse > 120. 6. FEVER: n/a 7. CARDIAC HISTORY: n/a 8. LUNG HISTORY:COPD and chronic bronchitis 9. PE RISK FACTORS: n/a 10. OTHER SYMPTOMS: UTI symptoms 11. : n/a 12. TRAVEL: n/a Answer Assessment - Initial Assessment Questions 1. SYMPTOM: Pt c/o lower back and lower abd pain. Pain, burning, frequency, urgency and incontinence of urine 2. ONSET: states symptoms started a couple of weeks go. 3. PAIN: moderate 4. CAUSE: states this is how she feels when she has a bad bladder infection 5. OTHER SYMPTOMS:see above. Pt also thinks she has bronchitis. 6. :n/a Protocols used: Urinary Pqsyxsom-MGNWT-FC, Urination Pain - Uohzop-IRECH-TE, Cough - Acute Lbmhrpicwf-URMLI-AJ documented in this encounter [facility] 10-19-2024 Telephone encounter Note Prescription Refill Information The patient has been identified by name and date of : Yes Caregiver verified no other encounters exist for this prescription request: Yes Caregiver confirmed with patient/requestor that no other refills are due, in the near future, with this provider at this time: Yes The last office visit in the department: 07/26/24 Does the patient have a future office visit with this provider/department: Yes Requested Prescriptions Pending Prescriptions Disp Refills promethazine (PHENERGAN) 25 mg tablet 90 tablet 2 Sig: Take 1 tablet by mouth every 6 hours as needed for nausea/vomiting. Mahsa Myers October 19, 2024 10:04 AM [facility] 10-19-2024 Miscellaneous Notes Prescription Refill Information The patient has been identified by name and date of : Yes Caregiver verified no other encounters exist for this prescription request: Yes Caregiver confirmed with patient/requestor that no other refills are due, in the near future, with this provider at this time: Yes The last office visit in the department: 07/26/24 Does the patient have a future office visit with this provider/department: Yes Requested Prescriptions Pending Prescriptions Disp Refills promethazine (PHENERGAN) 25 mg tablet 90 tablet 2 Sig: Take 1 tablet by mouth every 6 hours as needed for nausea/vomiting. Mahsa Myers October 19, 2024 10:04 AM documented in this encounter [facility] 10-05-2024 Telephone encounter Note Larissa Chacon report that each box has 5 pens, and Pt goes through one box in 13 days. Increased to Pt getting 3 boxes at a time to last for 39 days with refills. The patient has been identified by name and date of : Yes Caregiver verified no other encounters exist for this prescription request: Yes Caregiver confirmed with patient/requestor that no other refills are due, in the near future, with this provider at this time: Yes The last office visit in the department: 07/26/2024 Does the patient have a future office visit with this provider/department: Yes 01/24/2025 Requested Prescriptions Pending Prescriptions Disp Refills insulin lispro (HUMALOG KWIKPEN INSULIN) 100 unit/mL 3 Each 5 Sig: Inject 12 Units subcutaneously three times a day before meals. And sliding scale up to 38 units tid. Diane Guillermo RN October 05, 2024 9:54 AM [facility] 10-05-2024 Miscellaneous Notes Larissa Chacon report that each box has 5 pens, and Pt goes through one box in 13 days. Increased to Pt getting 3 boxes at a time to last for 39 days with refills. The patient has been identified by name and date of : Yes Caregiver verified no other encounters exist for this prescription request: Yes Caregiver confirmed with patient/requestor that no other refills are due, in the near future, with this provider at this time: Yes The last office visit in the department: 07/26/2024 Does the patient have a future office visit with this provider/department: Yes 01/24/2025 Requested Prescriptions Pending Prescriptions Disp Refills insulin lispro (HUMALOG KWIKPEN INSULIN) 100 unit/mL 3 Each 5 Sig: Inject 12 Units subcutaneously three times a day before meals. And sliding scale up to 38 units tid. Diane Guillermo RN October 05, 2024 9:54 AM documented in this encounter [facility] 09-22-2024 Telephone encounter Note Prescription Refill Information The patient has been identified by name and date of : Yes Caregiver verified no other encounters exist for this prescription request: Yes Caregiver confirmed with patient/requestor that no other refills are due, in the near future, with this provider at this time: Yes The last office visit in the department: 07.26.24 Does the patient have a future office visit with this provider/department: Yes Requested Prescriptions Pending Prescriptions Disp Refills insulin glargine U-300 conc (TOUJEO) 300 unit/mL (1.5 mL) 8.27 mL 5 Sig: Inject 80 Units subcutaneously every morning. E11.9 Dispense 2 boxes of 3 pens. Joycelyn Greer September 22, 2024 10:18 AM [facility] 09-22-2024 Miscellaneous Notes Prescription Refill Information The patient has been identified by name and date of : Yes Caregiver verified no other encounters exist for this prescription request: Yes Caregiver confirmed with patient/requestor that no other refills are due, in the near future, with this provider at this time: Yes The last office visit in the department: 07.26.24 Does the patient have a future office visit with this provider/department: Yes Requested Prescriptions Pending Prescriptions Disp Refills insulin glargine U-300 conc (TOUJEO) 300 unit/mL (1.5 mL) 8.27 mL 5 Sig: Inject 80 Units subcutaneously every morning. E11.9 Dispense 2 boxes of 3 pens. Joycelyn Greer September 22, 2024 10:18 AM documented in this encounter [facility] 07-29-2024 Note Addended by: SMILEY MELO on: 07/29/2024 09:53 AM Modules accepted: Orders [facility] 07-29-2024 Telephone encounter Note Order resent [facility] 07-29-2024 Miscellaneous Notes Addended by: SMILEY MELO on: 07/29/2024 09:53 AM Modules accepted: Orders Order resent [facility] pharmacist from [facility] calling in this morning to say that the prescription for this pt sent to them on 07/26 has gotten lost in the delivery process. So patient has not received her antibiotic Nitrofurantoin (Macrobid). [facility] is concerned that pt needs the antibiotic and she is unsure when or if the RX will be found. [facility] asking if she can have an order to dispense the antibiotic again and then they are going to Fed Ex it to pt today. Prescription order given again to [facility] since previous prescription got lost. documented in this encounter [facility] 07-29-2024 Telephone encounter Note [facility] pharmacist from [facility] calling in this morning to say that the prescription for this pt sent to them on 07/26 has gotten lost in the delivery process. So patient has not received her antibiotic Nitrofurantoin (Macrobid). [facility] is concerned that pt needs the antibiotic and she is unsure when or if the RX will be found. [facility] asking if she can have an order to dispense the antibiotic again and then they are going to Fed Ex it to pt today. Prescription order given again to [facility] since previous prescription got lost. [facility] 07-26-2024 Telephone encounter Note Pharm requesting refills. Advises that they got order for glucometer but no test strips or lancets. Prescription Refill Information The patient has been identified by name and date of : Yes Caregiver verified no other encounters exist for this prescription request: Yes Caregiver confirmed with patient/requestor that no other refills are due, in the near future, with this provider at this time: Yes The last office visit in the department: 07/26/24 Does the patient have a future office visit with this provider/department: Yes Requested Prescriptions Pending Prescriptions Disp Refills blood sugar diagnostic (BLOOD GLUCOSE TEST) test strip 100 Strip 11 Sig: Test blood sugar(s) 3-4 times daily. Dx: Type 2 DM - Controlled E11.9 Insulin: Yes Lancets 100 Each 11 Sig: Test blood sugar(s) 3-4 times daily. Dx: Type 2 DM-Controlled Insulin: Yes Ondina Flor LPN July 26, 2024 11:06 AM [facility] 07-26-2024 Miscellaneous Notes Pharm requesting refills. Advises that they got order for glucometer but no test strips or lancets. Prescription Refill Information The patient has been identified by name and date of : Yes Caregiver verified no other encounters exist for this prescription request: Yes Caregiver confirmed with patient/requestor that no other refills are due, in the near future, with this provider at this time: Yes The last office visit in the department: 07/26/24 Does the patient have a future office visit with this provider/department: Yes Requested Prescriptions Pending Prescriptions Disp Refills blood sugar diagnostic (BLOOD GLUCOSE TEST) test strip 100 Strip 11 Sig: Test blood sugar(s) 3-4 times daily. Dx: Type 2 DM - Controlled E11.9 Insulin: Yes Lancets 100 Each 11 Sig: Test blood sugar(s) 3-4 times daily. Dx: Type 2 DM-Controlled Insulin: Yes Ondina Flor LPN July 26, 2024 11:06 AM documented in this encounter [facility] 07-26-2024 Instructions Smiley Melo APRN.LINE THERAPIST - 07/26/2024 10:03 AM EST 1) Bone density ordered 2) Lung cancer screening team to call you 3) Stool card 4) Consult [facility] for diabetes exam and cataracts 5) Nitrofurantoin 2 x day for 5 days 6) Urine culture in a week 7) Flu shot 8) Follow up in 6 months BONE MINERAL DENSITY PATIENT INSTRUCTIONS === Bone mineral density testing measures the amount of calcium in certain parts of your bones. This information determines how strong your bones are. The test is used to detect osteoporosis, a disease in which the bone's mineral content and density are low, increasing a person's risk of fractures. The lumbar spine (lower back) and the hip are the skeletal sites usually examined. For the test, remember that: 1. You cannot take this test if you are . 2. Eat a normal diet on the day of the test. 3. Take your medications as you normally would. 4. DO NOT take calcium supplements (such as Tums) for 24 hours before the test. 5. On the day of the test, leave valuables (jewelry or credit cards) at home. 6. The test should be performed prior to oral, rectal or IV contrast studies, or at least 7 days after any of these studies. For the test, you may be asked to wear a hospital gown. You will lie on your back, on a padded table, in a comfortable position. Generally, you can resume your usual activities immediately. documented in this encounter [facility] 07-26-2024 Note HNO ID: [id number] Author: SMILEY MELO APRN.SINGH Service: ? Author Type: Clinical Nurse Specialist Type: Progress Notes Filed: 07/26/2024 10:47 Note Text: This is a 69 year old female who presents today with: Patient presents with: UTI: Dysuria, urinary frequency, lower abdominal pain for the last 3 weeks Migraine Fibromyalgia HISTORY OF PRESENT ILLNESS: Ivet Vaelro is a 69 year old female. Patient presents with: UTI: Dysuria, urinary frequency, lower abdominal pain for the last 3 weeks Migraine Fibromyalgia Pt. Has Hx of UTI frequently Migraine [id number] frontal and occipital. Has a workers comp claim on neck and shoulders-thinks related to that. Medication is not helping. Does not think she snores. Wakes up through the night. Fibromyalgia this year it is worse. Legs, elbows, knees, everywhere. Doesn't sleep 7 hours a night. No exercise. Stress levels are high. Ran out of gabapentin. Has not smoked for a week. Smokes 3/4- 1 ppd for 47 years. DM: Reports overall feeling well. Medication side effects: No. Home sugar checks: Meter broke Hypoglycemic spells: Seldom. Watching diet: No. Unexpected weight loss: No. Polyuria, polydipsia: Yes. Vision Changes: Yes. Due for eye doctor Foot lesions or numbness or pain: No. 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 Depressive disorder, not elsewhere classified DM (diabetes mellitus) (HCC) Fibromyalgia Migraine with aura, without mention of intractable migraine without mention of status migrainosus Panic disorder without agoraphobia had hx of failed urine screen Recurrent UTI Tobacco use disorder PAST SURGICAL HISTORY Procedure Laterality Date CHOLECYSTECTOMY ESOPHAGOGASTRODUODENOSCOPY TRANSORAL DIAGNOSTIC 12/06/2015 EGD LIG/TRNSXJ FLP TUBE ABDL/VAG APPR UNI/BI Tubal ligation PAST SURGICAL HISTORY OF Left 03/2014 ANKLE FRACTURE REPAIR S SLING BLADDER 2012 AND TOTAL ABDOMINAL HYSTERECT W/WO RMVL TUBE OVARY Hysterectomy, REJI ALLERGIES Chantix [Varenicline], Penicillins, and Sulfa (Sulfonamide Antibiotics) MEDICATIONS Current Outpatient Medications Medication Sig topiramate (TOPAMAX) 25 mg tablet Take 1 tablet by mouth two times a day. carvedilol (COREG) 12.5 mg tablet Take 1 tablet by mouth two times a day. albuterol HFA (VENTOLIN HFA) 90 mcg/actuation inhaler Inhale 2 Puffs as instructed every 4 hours as needed. fluticasone-vilanterol (BREO ELLIPTA) 100-25 mcg/dose inhaler Inhale 1 Inhalation as instructed once daily. nystatin (MYCOSTATIN) powder Apply 1 application to affected area four times daily. ergocalciferol 50,000 unit capsule (VITAMIN D2, DRISDOL) Take 1 capsule by mouth one time a week. albuterol (PROVENTIL) 2.5 mg /3 mL (0.083 %) nebulizer solution Use 3 mL via nebulizer every 4 hours as needed for wheezing/shortness of breath. Use over 5-15minutes. atorvastatin (LIPITOR) 20 mg tablet Take 1 tablet by mouth daily at bedtime. For cholesterol. busPIRone (BUSPAR) 10 mg tablet Take 1 tablet by mouth three times daily. omeprazole (PRILOSEC) 40 mg capsule Take 1 capsule by mouth once daily. escitalopram oxalate (LEXAPRO) 20 mg tablet Take 20 mg by mouth once daily. buPROPion XL (WELLBUTRIN XL) 150 mg 24 hr tablet Take 1 tablet by mouth once daily. QUEtiapine XR (SEROQUEL XR) 300 mg 24 hr tablet Take 300 mg by mouth daily at bedtime. gabapentin (NEURONTIN) 400 mg capsule Take 1 capsule by mouth three times a day for 90 days. insulin glargine U-300 conc (TOUJEO) 300 unit/mL (1.5 mL) Inject 80 Units subcutaneously every morning. E11.9 Dispense 2 boxes of 3 pens. insulin lispro (HUMALOG KWIKPEN INSULIN) 100 unit/mL Inject 12 Units subcutaneously three times a day before meals. And sliding scale up to 38 units tid. promethazine (PHENERGAN) 25 mg tablet Take 1 tablet by mouth every 6 hours as needed for nausea/vomiting. Insulin [place], Disposable, (BD ULTRA-FINE MINDY PEN NEEDLE) 32 gauge x 5/32 Use one needle for each dose, 4 times daily. (4mm) Lancets lancets Test blood sugar(s) 3-4 times daily. Dx: Type 2 DM-Controlled Insulin: Yes blood sugar diagnostic (BLOOD GLUCOSE TEST) test strip Test blood sugar(s) 3-4 times daily. Dx: Type 2 DM - Controlled E11.9 Insulin: Yes Insulin [place], Disposable, 32 gauge x 5/16 ndle Use four times daily with insulin Blood Pressure Monitor 1 Each once daily. Blood Pressure Monitor EXLARGE BLOOD PRESSURE CUFF MONITOR KIT checking bp 4 times daily No current facility-administered medications for this visit. FAMILY HISTORY Problem Relation Age of Onset Hypertension Mother Social History Tobacco Use Smoking status: Some Days Current packs/day: 1.00 Average packs/day: 1 pack/day for 40.0 years (40.0 ttl pk-yrs) Types: Cigarettes Sm (more content not included)... [facility] 07-26-2024 History of Present illness Narrative This is a 69 year old female who presents today with: Patient presents with: UTI: Dysuria, urinary frequency, lower abdominal pain for the last 3 weeks Migraine Fibromyalgia HISTORY OF PRESENT ILLNESS: Ivet Valero is a 69 year old female. Patient presents with: UTI: Dysuria, urinary frequency, lower abdominal pain for the last 3 weeks Migraine Fibromyalgia Pt. Has Hx of UTI frequently Migraine [id number] frontal and occipital. Has a workers comp claim on neck and shoulders-thinks related to that. Medication is not helping. Does not think she snores. Wakes up through the night. Fibromyalgia this year it is worse. Legs, elbows, knees, everywhere. Doesn't sleep 7 hours a night. No exercise. Stress levels are high. Ran out of gabapentin. Has not smoked for a week. Smokes 3/4- 1 ppd for 47 years. DM: Reports overall feeling well. Medication side effects: No. Home sugar checks: Meter broke Hypoglycemic spells: Seldom. Watching diet: No. Unexpected weight loss: No. Polyuria, polydipsia: Yes. Vision Changes: Yes. Due for eye doctor Foot lesions or numbness or pain: No. 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 Depressive disorder, not elsewhere classified DM (diabetes mellitus) (HCC) Fibromyalgia Migraine with aura, without mention of intractable migraine without mention of status migrainosus Panic disorder without agoraphobia had hx of failed urine screen Recurrent UTI Tobacco use disorder PAST SURGICAL HISTORY Procedure Laterality Date CHOLECYSTECTOMY ESOPHAGOGASTRODUODENOSCOPY TRANSORAL DIAGNOSTIC 12/06/2015 EGD LIG/TRNSXJ FLP TUBE ABDL/VAG APPR UNI/BI Tubal ligation PAST SURGICAL HISTORY OF Left 03/2014 ANKLE FRACTURE REPAIR S SLING BLADDER 2012 & TOTAL ABDOMINAL HYSTERECT W/WO RMVL TUBE OVARY Hysterectomy, REJI ALLERGIES Chantix [Varenicline], Penicillins, and Sulfa (Sulfonamide Antibiotics) MEDICATIONS Current Outpatient Medications Medication Sig topiramate (TOPAMAX) 25 mg tablet Take 1 tablet by mouth two times a day. carvedilol (COREG) 12.5 mg tablet Take 1 tablet by mouth two times a day. albuterol HFA (VENTOLIN HFA) 90 mcg/actuation inhaler Inhale 2 Puffs as instructed every 4 hours as needed. fluticasone-vilanterol (BREO ELLIPTA) 100-25 mcg/dose inhaler Inhale 1 Inhalation as instructed once daily. nystatin (MYCOSTATIN) powder Apply 1 application to affected area four times daily. ergocalciferol 50,000 unit capsule (VITAMIN D2, DRISDOL) Take 1 capsule by mouth one time a week. albuterol (PROVENTIL) 2.5 mg /3 mL (0.083 %) nebulizer solution Use 3 mL via nebulizer every 4 hours as needed for wheezing/shortness of breath. Use over 5-15minutes. atorvastatin (LIPITOR) 20 mg tablet Take 1 tablet by mouth daily at bedtime. For cholesterol. busPIRone (BUSPAR) 10 mg tablet Take 1 tablet by mouth three times daily. omeprazole (PRILOSEC) 40 mg capsule Take 1 capsule by mouth once daily. escitalopram oxalate (LEXAPRO) 20 mg tablet Take 20 mg by mouth once daily. buPROPion XL (WELLBUTRIN XL) 150 mg 24 hr tablet Take 1 tablet by mouth once daily. QUEtiapine XR (SEROQUEL XR) 300 mg 24 hr tablet Take 300 mg by mouth daily at bedtime. gabapentin (NEURONTIN) 400 mg capsule Take 1 capsule by mouth three times a day for 90 days. insulin glargine U-300 conc (TOUJEO) 300 unit/mL (1.5 mL) Inject 80 Units subcutaneously every morning. E11.9 Dispense 2 boxes of 3 pens. insulin lispro (HUMALOG KWIKPEN INSULIN) 100 unit/mL Inject 12 Units subcutaneously three times a day before meals. And sliding scale up to 38 units tid. promethazine (PHENERGAN) 25 mg tablet Take 1 tablet by mouth every 6 hours as needed for nausea/vomiting. Insulin [place], Disposable, ([place] ULTRA-FINE MINDY PEN NEEDLE) 32 gauge x 5/32 Use one needle for each dose, 4 times daily. (4mm) Lancets lancets Test blood sugar(s) 3-4 times daily. Dx: Type 2 DM-Controlled Insulin: Yes blood sugar diagnostic (BLOOD GLUCOSE TEST) test strip Test blood sugar(s) 3-4 times daily. Dx: Type 2 DM - Controlled E11.9 Insulin: Yes Insulin [place], Disposable, 32 gauge x 5/16 ndle Use four times daily with insulin Blood Pressure Monitor 1 Each once daily. Blood Pressure Monitor EXLARGE BLOOD PRESSURE CUFF MONITOR KIT checking bp 4 times daily No current facility-administered medications for this visit. FAMILY HISTORY Problem Relation Age of Onset Hypertension Mother Social History Tobacco Use Smoking status: Some Days Current packs/day: 1.00 Average packs/day: 1 pack/day for 40.0 years (40.0 ttl pk-yrs) Types: Cigarettes Smokeless tobacco: Never Tobacco comments: 3 cigarettes daily? Vaping Use Vaping status: Never Used Substance Use Topics Alcohol use: No Drug use: No EXAM: BP 144/76 Pulse 102 Temp 37.1 C (98.8 F) (Tympanic) Resp 20 Wt 103 kg (227 lb 1.2 oz) SpO2 97% BMI 35.56 kg/m PHYSICAL EXAM: Physical Exam Vitals reviewed. Constitutional: Appearance: Normal appearance. She is not ill-appearing or toxic-appearing. HENT: Head: Normocephalic. Cardiovascular: Rate and Rhythm: Normal rate and regular rhythm. Pulses: Normal pulses. Heart sounds: Normal heart sounds. Comments: Bounding heart sounds Pulmonary: Effort: Pulmonary effort is normal. No respiratory distress. Breath sounds: Normal breath sounds. No wheezing, rhonchi or rales. Abdominal: Palpations: Abdomen is soft. Musculoskeletal: General: Normal range of motion. Right lower leg: No edema. Left lower leg: No edema. Skin: General: Skin is warm and dry. Comments: Long mycotic nails- declined podiatry referral Neurological: Mental Status: She is alert and oriented to person, place, and time. Psychiatric: Behavior: Behavior normal. Thought Content: Thought content normal. LABS: Due today ASSESSMENT/PLAN: 1. Recurrent UTI (urinary tract infection) - ICD9: 599.0, ICD10: N39.0 (primary diagnosis) acute - Patient education for prevention given - UA DIP, URINE (POC) POSITIVE FOR NITRATES - NITROFURANTOIN MONOHYDRATE & MACROCRYSTAL 100 MG ORAL CAP - URINE CULTURE if able to urinate again (not enough urine for specimen) 2. Fibromyalgia - ICD9: 729.1, ICD10: M79.7 Ongoing- discussed sleep, control stress and exercise - GABAPENTIN 400 MG CAPSULE - COMPLETE BLOOD COUNT AND DIFFERENTIAL - COMPREHENSIVE METABOLIC PANEL - LIPID PANEL, NONFASTING - VITAMIN B12 - MAGNESIUM 3. Type 2 diabetes mellitus without complication, without long-term current use of insulin ([facility]) - ICD9: 250.00, ICD10: E11.9 - Control undetermined, due for labs - Continue current medications - INSULIN GLARGINE (U-300) CONC. 300 UNIT/ML (1.5 ML) SUBCUTANEOUS PEN - INSULIN LISPRO (U-100) 100 UNIT/ML SUBCUTANEOUS PEN - INSULIN GLARGINE (U-300) CONC. 300 UNIT/ML (1.5 ML) SUBCUTANEOUS PEN - INSULIN LISPRO (U-100) 100 UNIT/ML SUBCUTANEOUS PEN - COMPLETE BLOOD COUNT AND DIFFERENTIAL - COMPREHENSIVE METABOLIC PANEL - LIPID PANEL, NONFASTING - VITAMIN B12 - MAGNESIUM - CONSULT TO OPHTHALMOLOGY - Foot exam complete - Glucometer ordered 4. Chronic nausea - ICD9: 787.02, ICD10: R11.0 Ongoing - PROMETHAZINE 25 MG TABLET - COMPLETE BLOOD COUNT AND DIFFERENTIAL - COMPREHENSIVE METABOLIC PANEL - LIPID PANEL, NONFASTING - VITAMIN B12 - MAGNESIUM 5. Migraine without aura and without status migrainosus, not intractable - ICD9: 346.10, ICD10: G43.009 Worse lately - Increase Topiramate to 50 mg 2 x day - Declined home sleep study 6. Encounter for screening for lung cancer - ICD9: V76.0, ICD10: Z12.2 Agrees to screen - CONSULT [facility] 7. Screening for osteoporosis - ICD9: V82.81, ICD10: Z13.820 Agrees to screen - DXA-AXIAL SKELETON - BD DXA TRABECULAR BONE SCORE (TBS) 8. Asymptomatic menopause - ICD9: V49.81, ICD10: Z78.0 Check bone density - DXA-AXIAL SKELETON - BD DXA TRABECULAR BONE SCORE (TBS) 9. Screening for colon cancer - ICD9: V76.51, ICD10: Z12.11 Check stool card - IMMUNOCHEMICAL FECAL OCCULT BLOOD TEST 10. Uncontrolled type 2 diabetes mellitus with hyperglycemia (HCC) - ICD9: 250.02, ICD10: E11.65 - Control undetermined, due for labs - Continue current medications - HEMOGLOBIN A1C - ALBUMIN/CREATININE RATIO, URINE 11. Encounter for immunization - ICD9: V03.89, ICD10: Z23 - INFLUENZA VACCINE, PRSV FREE, AGE 65+ YR, HIGH DOSE, TRIVALENT (FLUZONE HIGH-DOSE) Discussed treatment plan and patient voices understanding. Patient's questions answered appropriately. Medications and potential side effects were discussed and patient voices understanding. Return to the office as scheduled or as needed for worsening/no improvement. Smiley Melo APRN.LINE THERAPIST documented in this encounter [facility] 07-19-2024 Note HNO ID: [id number] Author: HERSON ASHFORD RN Service: ? Author Type: Registered Nurse Type: Progress Notes Filed: 07/19/2024 11:01 Note Text: [facility] Telephonic Outreach Provider Action/FYI Contacted for: Routine Telephonic Outreach Contact made with patient: No, unable to leave message. Will reattempt call Herson Ashford RN July 19, 2024 11:01 AM [facility] 07-19-2024 History of Present illness Narrative [facility] Telephonic Outreach Provider Action/FYI Contacted for: Routine Telephonic Outreach Contact made with patient: No, unable to leave message. Will reattempt call Herson Ashford RN July 19, 2024 11:01 AM documented in this encounter [facility] 07-19-2024 Note Patient Outreach ([facility]) ---- IVET VALERO ([id number]) 1955 F Date Time Provider Department 07/19/24 HERSON ASHFORD [facility] During your visit today, we recorded the following information about you: Herson Ashford RN 07/19/2024 11:01 AM Signed [facility] Telephonic Outreach Provider Action/FYI Contacted for: Routine Telephonic Outreach Contact made with patient: No, unable to leave message. Will reattempt call Herson Ashford RN July 19, 2024 11:01 AM Allergies As of Date: 07/19/2024 Noted Allergy Reaction CHANTIX (VARENICLINE) 01/22/2019 1 - Mental Status Change PENICILLINS 05/25/2008 4 - Hives SULFA (SULFONAMIDE ANTIBIOTICS) 09/19/2016 2 - Rash 14 - Other: See Comments Comments: Blisters and sore in throat Date Reviewed: 04/29/2024 Reviewed by: SMILEY MELO - Fully Assessed Reason for Visit: community monitoring outreach [Other] Cmt: CDM-Telephonic outreach Prescriptions as of 08/24/2024 - gabapentin (NEURONTIN) 400 mg capsule Take 1 capsule by mouth three times a day for 90 days. - promethazine (PHENERGAN) 25 mg tablet Take 1 tablet by mouth every 6 hours as needed for nausea/vomiting. - insulin glargine U-300 conc (TOUJEO) 300 unit/mL (1.5 mL) Inject 80 Units subcutaneously every morning. E11.9 Dispense 2 boxes of 3 pens. - insulin lispro (HUMALOG KWIKPEN INSULIN) 100 unit/mL Inject 12 Units subcutaneously three times a day before meals. And sliding scale up to 38 units tid. - topiramate (TOPAMAX) 50 mg tablet Take 1 tablet by mouth two times a day. - blood sugar diagnostic (BLOOD GLUCOSE TEST) test strip Test blood sugar(s) 3-4 times daily. Dx: Type 2 DM - Controlled E11.9 Insulin: Yes - Lancets Test blood sugar(s) 3-4 times daily. Dx: Type 2 DM-Controlled Insulin: Yes - carvedilol (COREG) 12.5 mg tablet Take 1 tablet by mouth two times a day. - Insulin [place], Disposable, (BD ULTRA-FINE MINDY PEN NEEDLE) 32 gauge x 5 Use one needle for each dose, 4 times daily. (4mm) - albuterol HFA (VENTOLIN HFA) 90 mcg/actuation inhaler Inhale 2 Puffs as instructed every 4 hours as needed. - fluticasone-vilanterol (BREO ELLIPTA) 100-25 mcg/dose inhaler Inhale 1 Inhalation as instructed once daily. - nystatin (MYCOSTATIN) powder Apply 1 application to affected area four times daily. - ergocalciferol 50,000 unit capsule (VITAMIN D2, DRISDOL) Take 1 capsule by mouth one time a week. - albuterol (PROVENTIL) 2.5 mg /3 mL (0.083 %) nebulizer solution Use 3 mL via nebulizer every 4 hours as needed for wheezing/shortness of breath. Use over 5-15minutes. - atorvastatin (LIPITOR) 20 mg tablet Take 1 tablet by mouth daily at bedtime. For cholesterol. - busPIRone (BUSPAR) 10 mg tablet Take 1 tablet by mouth three times daily. - omeprazole (PRILOSEC) 40 mg capsule Take 1 capsule by mouth once daily. - escitalopram oxalate (LEXAPRO) 20 mg tablet Take 20 mg by mouth once daily. - buPROPion XL (WELLBUTRIN XL) 150 mg 24 hr tablet Take 1 tablet by mouth once daily. - Insulin [place], Disposable, 32 gauge x 5/16 ndle Use four times daily with insulin - QUEtiapine XR (SEROQUEL XR) 300 mg 24 hr tablet Take 300 mg by mouth daily at bedtime. - Blood Pressure Monitor EXLARGE BLOOD PRESSURE CUFF MONITOR KIT checking bp 4 times daily Problem List As Of Date 07/19/2024 Noted Resolved TOBACCO USE DISORDER [F17.200] CERVICAL DISC DEGEN [M50.30] Chronic bronchitis (HCC) [J42] Depressive disorder, not elsewhere classified [* 01/05/2022 Persistent disorder of initiating or maintainin*05/25/2008 01/05/2022 Migraine with aura [G43.109] PANIC DISORDER WITHOUT AGORAPHOBIA [F41.0] Fibromyalgia [M79.7] History of recurrent UTIs [Z87.440] 11/30/2015 Uncontrolled type 2 diabetes mellitus with hype* Secondary polycythemia [D75.1] 09/10/2017 Depression, major, recurrent, in complete remis*07/23/2018 Hyperlipidemia, mixed [E78.2] 02/01/2019 Chronic cough [R05.3] 01/04/2020 01/05/2022 Obesity, Class II, BMI 35-39.9 [E66.812] 02/29/2020 SOB (shortness of breath) [R06.02] 08/23/2020 01/05/2022 Acute bronchitis with chronic obstructive pulmo*10/02/2020 01/05/2022 Chest pressure [R07.89] 12/11/2020 01/05/2022 Rash [R21] 01/01/2021 01/05/2022 Primary hypertension [I10] 01/08/2021 Chronic gastritis without bleeding [K29.50] 09/07/2021 Leukocytosis [D72.829] 01/05/2022 Mixed stress and urge urinary incontinence [N39*04/16/2023 Esophageal varices without bleeding (HCC) [I85.*07/22/2022 Diagnosed: 08/15/2023 DENNY (nonalcoholic steatohepatitis) [K75.81] 06/14/2022 Diagnosed: 08/15/2023 Encounter Status:Closed by HERSON ASHFORD on 07/19/24 [facility] 07-16-2024 Note HNO ID: [id number] Author: HERSON ASHFORD RN Service: ? Author Type: Registered Nurse Type: Progress Notes Filed: 07/16/2024 13:25 Note Text: [facility] Telephonic Outreach Provider Action/FYI Contacted for: Routine Telephonic Outreach Contact made with patient: No, unable to leave message. Will reattempt call Herson Ashford RN July 16, 2024 1:25 PM Phone rings-no voicemail set up [facility] 07-16-2024 History of Present illness Narrative [facility] Telephonic Outreach Provider Action/FYI Contacted for: Routine Telephonic Outreach Contact made with patient: No, unable to leave message. Will reattempt call Herson Ashford RN July 16, 2024 1:25 PM Phone rings-no voicemail set up documented in this encounter [facility] 07-16-2024 Note Patient Outreach ([facility]) ---- IVET VALERO ([id number]) 1955 F Date Time Provider Department 07/16/24 HERSON ASHFORD [facility] During your visit today, we recorded the following information about you: Herson Ashford RN 07/16/2024 1:25 PM Signed [facility] Telephonic Outreach Provider Action/FYI Contacted for: Routine Telephonic Outreach Contact made with patient: No, unable to leave message. Will reattempt call Herson Ashford RN July 16, 2024 1:25 PM Phone rings-no voicemail set up Allergies As of Date: 07/16/2024 Noted Allergy Reaction CHANTIX (VARENICLINE) 01/22/2019 1 - Mental Status Change PENICILLINS 05/25/2008 4 - Hives SULFA (SULFONAMIDE ANTIBIOTICS) 09/19/2016 2 - Rash 14 - Other: See Comments Comments: Blisters and sore in throat Date Reviewed: 04/29/2024 Reviewed by: Smiley Melo APRN.LINE THERAPIST - Fully Assessed Reason for Visit: community monitoring outreach [Other] Cmt: CDM-Telephonic outreach Prescriptions as of 07/16/2024 - insulin glargine U-300 conc (TOUJEO) 300 unit/mL (1.5 mL) Inject 80 Units subcutaneously every morning. E11.9 Dispense 2 boxes of 3 pens. - promethazine (PHENERGAN) 25 mg tablet Take 1 tablet by mouth every 6 hours as needed for nausea/vomiting. - topiramate (TOPAMAX) 25 mg tablet Take 1 tablet by mouth two times a day. - carvedilol (COREG) 12.5 mg tablet Take 1 tablet by mouth two times a day. - Insulin [place], Disposable, (BD ULTRA-FINE MINDY PEN NEEDLE) 32 gauge x 532 Use one needle for each dose, 4 times daily. (4mm) - insulin lispro (HUMALOG KWIKPEN INSULIN) 100 unit/mL Inject 12 Units subcutaneously three times a day before meals. And sliding scale up to 38 units tid. - albuterol HFA (VENTOLIN HFA) 90 mcg/actuation inhaler Inhale 2 Puffs as instructed every 4 hours as needed. - fluticasone-vilanterol (BREO ELLIPTA) 100-25 mcg/dose inhaler Inhale 1 Inhalation as instructed once daily. - nystatin (MYCOSTATIN) powder Apply 1 application to affected area four times daily. - ergocalciferol 50,000 unit capsule (VITAMIN D2, DRISDOL) Take 1 capsule by mouth one time a week. - albuterol (PROVENTIL) 2.5 mg /3 mL (0.083 %) nebulizer solution Use 3 mL via nebulizer every 4 hours as needed for wheezing/shortness of breath. Use over 5-15minutes. - Lancets lancets Test blood sugar(s) 3-4 times daily. Dx: Type 2 DM-Controlled Insulin: Yes - blood sugar diagnostic (BLOOD GLUCOSE TEST) test strip Test blood sugar(s) 3-4 times daily. Dx: Type 2 DM - Controlled E11.9 Insulin: Yes - gabapentin (NEURONTIN) 400 mg capsule Take 1 capsule by mouth three times a day for 90 days. - atorvastatin (LIPITOR) 20 mg tablet Take 1 tablet by mouth daily at bedtime. For cholesterol. - busPIRone (BUSPAR) 10 mg tablet Take 1 tablet by mouth three times daily. - omeprazole (PRILOSEC) 40 mg capsule Take 1 capsule by mouth once daily. - escitalopram oxalate (LEXAPRO) 20 mg tablet Take 20 mg by mouth once daily. - buPROPion XL (WELLBUTRIN XL) 150 mg 24 hr tablet Take 1 tablet by mouth once daily. - Insulin [place], Disposable, 32 gauge x 5/16 ndle Use four times daily with insulin - QUEtiapine XR (SEROQUEL XR) 300 mg 24 hr tablet Take 300 mg by mouth daily at bedtime. - Blood Pressure Monitor 1 Each once daily. - Blood Pressure Monitor EXLARGE BLOOD PRESSURE CUFF MONITOR KIT checking bp 4 times daily Problem List As Of Date 07/16/2024 Noted Resolved TOBACCO USE DISORDER [F17.200] CERVICAL DISC DEGEN [M50.30] Chronic bronchitis (HCC) [J42] Depressive disorder, not elsewhere classified [* 01/05/2022 Persistent disorder of initiating or maintainin*05/25/2008 01/05/2022 Migraine with aura [G43.109] PANIC DISORDER WITHOUT AGORAPHOBIA [F41.0] Fibromyalgia [M79.7] History of recurrent UTIs [Z87.440] 11/30/2015 Uncontrolled type 2 diabetes mellitus with hype* Secondary polycythemia [D75.1] 09/10/2017 Depression, major, recurrent, in complete remis*07/23/2018 Hyperlipidemia, mixed [E78.2] 02/01/2019 Chronic cough [R05.3] 01/04/2020 01/05/2022 Obesity, Class II, BMI 35-39.9 [E66.812] 02/29/2020 SOB (shortness of breath) [R06.02] 08/23/2020 01/05/2022 Acute bronchitis with chronic obstructive pulmo*10/02/2020 01/05/2022 Chest pressure [R07.89] 12/11/2020 01/05/2022 Rash [R21] 01/01/2021 01/05/2022 Primary hypertension [I10] 01/08/2021 Chronic gastritis without bleeding [K29.50] 09/07/2021 Leukocytosis [D72.829] 01/05/2022 Mixed stress and urge urinary incontinence [N39*04/16/2023 Esophageal varices without bleeding (HCC) [I85.*07/22/2022 Diagnosed: 08/15/2023 DENNY (nonalcoholic steatohepatitis) [K75.81] 06/14/2022 Diagnosed: 08/15/2023 Encounter Status:Closed by HERSON ASHFORD on 07/16/24 [facility] 07-14-2024 Note HNO ID: [id number] Author: HERSON ASHFORD RN Service: ? Author Type: Registered Nurse Type: Progress Notes Filed: 07/14/2024 13:00 Note Text: [facility] Telephonic Outreach Provider Action/FYI Contacted for: Routine Telephonic Outreach Contact made with patient: Yes Patient identified by name and date of . Discussed care with patient Are you experiencing any new or worsening symptoms you need to talk about today? No Based on assessment coordinator, the following disposition is advised: No symptoms or symptoms present, not severe. Routed to: No Action Needed PEGGY Education Provided this Outreach: No Emma is struggling with both she and her spouses health Spouse follows with Dr. Cole as well He is struggling to get new glucometer, oxygen supplies Advised how to manage his DME Advised discussing referral to endocrine for him as they are current with newest technology if PCP office unable to manage. Patient has not followed up with specialists for her recurrent UTI's Encouraged to schedule appointments-has been busy with spouses care and his recent hospitalization. Listened with HEART Offered , social work Will consider and we will discuss next call Herson Ashford RN July 14, 2024 12:54 PM [facility] 07-14-2024 History of Present illness Narrative [facility] Telephonic Outreach Provider Action/FYI Contacted for: Routine Telephonic Outreach Contact made with patient: Yes Patient identified by name and date of . Discussed care with patient Are you experiencing any new or worsening symptoms you need to talk about today? No Based on assessment coordinator, the following disposition is advised: No symptoms or symptoms present, not severe. Routed to: No Action Needed PEGGY Education Provided this Outreach: No Emma is struggling with both she and her spouses health Spouse follows with Dr. Cole as well He is struggling to get new glucometer, oxygen supplies Advised how to manage his DME Advised discussing referral to endocrine for him as they are current with newest technology if PCP office unable to manage. Patient has not followed up with specialists for her recurrent UTI's Encouraged to schedule appointments-has been busy with spouses care and his recent hospitalization. Listened with HEART Offered , social work Will consider and we will discuss next call Herson Ashford RN July 14, 2024 12:54 PM documented in this encounter [facility] 07-14-2024 Note Patient Outreach ([facility]) ---- IVET VALERO ([id number]) 1955 F Date Time Provider Department 07/14/24 HERSON ASHFORD [facility] During your visit today, we recorded the following information about you: Herson Ashford RN 07/14/2024 1:00 PM Signed [facility] Telephonic Outreach Provider Action/FYI Contacted for: Routine Telephonic Outreach Contact made with patient: Yes Patient identified by name and date of . Discussed care with patient Are you experiencing any new or worsening symptoms you need to talk about today? No Based on assessment coordinator, the following disposition is advised: No symptoms or symptoms present, not severe. Routed to: No Action Needed PEGGY Education Provided this Outreach: No Emma is struggling with both she and her spouses health Spouse follows with Dr. Cole as well He is struggling to get new glucometer, oxygen supplies Advised how to manage his DME Advised discussing referral to endocrine for him as they are current with newest technology if PCP office unable to manage. Patient has not followed up with specialists for her recurrent UTI's Encouraged to schedule appointments-has been busy with spouses care and his recent hospitalization. Listened with HEART [facility], social work Will consider and we will discuss next call Herson Ashford RN July 14, 2024 12:54 PM Allergies As of Date: 07/14/2024 Noted Allergy Reaction CHANTIX (VARENICLINE) 01/22/2019 1 - Mental Status Change PENICILLINS 05/25/2008 4 - Hives SULFA (SULFONAMIDE ANTIBIOTICS) 09/19/2016 2 - Rash 14 - Other: See Comments Comments: Blisters and sore in throat Date Reviewed: 04/29/2024 Reviewed by: Smiley Melo APRN.LINE THERAPIST - Fully Assessed Reason for Visit: community monitoring outreach [Other] Cmt: [facility]-Telephonic outreach Prescriptions as of 07/14/2024 - insulin glargine U-300 conc (TOUJEO) 300 unit/mL (1.5 mL) Inject 80 Units subcutaneously every morning. E11.9 Dispense 2 boxes of 3 pens. - promethazine (PHENERGAN) 25 mg tablet Take 1 tablet by mouth every 6 hours as needed for nausea/vomiting. - topiramate (TOPAMAX) 25 mg tablet Take 1 tablet by mouth two times a day. - carvedilol (COREG) 12.5 mg tablet Take 1 tablet by mouth two times a day. - Insulin [place], Disposable, (BD ULTRA-FINE MINDY PEN NEEDLE) 32 gauge x 5/32 Use one needle for each dose, 4 times daily. (4mm) - insulin lispro (HUMALOG KWIKPEN INSULIN) 100 unit/mL Inject 12 Units subcutaneously three times a day before meals. And sliding scale up to 38 units tid. - albuterol HFA (VENTOLIN HFA) 90 mcg/actuation inhaler Inhale 2 Puffs as instructed every 4 hours as needed. - fluticasone-vilanterol (BREO ELLIPTA) 100-25 mcg/dose inhaler Inhale 1 Inhalation as instructed once daily. - nystatin (MYCOSTATIN) powder Apply 1 application to affected area four times daily. - ergocalciferol 50,000 unit capsule (VITAMIN D2, DRISDOL) Take 1 capsule by mouth one time a week. - albuterol (PROVENTIL) 2.5 mg /3 mL (0.083 %) nebulizer solution Use 3 mL via nebulizer every 4 hours as needed for wheezing/shortness of breath. Use over 5-15minutes. - Lancets lancets Test blood sugar(s) 3-4 times daily. Dx: Type 2 DM-Controlled Insulin: Yes - blood sugar diagnostic (BLOOD GLUCOSE TEST) test strip Test blood sugar(s) 3-4 times daily. Dx: Type 2 DM - Controlled E11.9 Insulin: Yes - gabapentin (NEURONTIN) 400 mg capsule Take 1 capsule by mouth three times a day for 90 days. - atorvastatin (LIPITOR) 20 mg tablet Take 1 tablet by mouth daily at bedtime. For cholesterol. - busPIRone (BUSPAR) 10 mg tablet Take 1 tablet by mouth three times daily. - omeprazole (PRILOSEC) 40 mg capsule Take 1 capsule by mouth once daily. - escitalopram oxalate (LEXAPRO) 20 mg tablet Take 20 mg by mouth once daily. - buPROPion XL (WELLBUTRIN XL) 150 mg 24 hr tablet Take 1 tablet by mouth once daily. - Insulin [place], Disposable, 32 gauge x 5/16 ndle Use four times daily with insulin - QUEtiapine XR (SEROQUEL XR) 300 mg 24 hr tablet Take 300 mg by mouth daily at bedtime. - Blood Pressure Monitor 1 Each once daily. - Blood Pressure Monitor EXLARGE BLOOD PRESSURE CUFF MONITOR KIT checking bp 4 times daily Problem List As Of Date 07/14/2024 Noted Resolved TOBACCO USE DISORDER [F17.200] CERVICAL DISC DEGEN [M50.30] Chronic bronchitis (HCC) [J42] Depressive disorder, not elsewhere classified [* 01/05/2022 Persistent disorder of initiating or maintainin*05/25/2008 01/05/2022 Migraine with aura [G43.109] PANIC DISORDER WITHOUT AGORAPHOBIA [F41.0] Fibromyalgia [M79.7] History of recurrent UTIs [Z87.440] 11/30/2015 Uncontrolled type 2 diabetes mellitus with hype* Secondary polycythemia [D75.1] 09/10/2017 Depression, major, recurrent, in complete remis*07/23/2018 Hyperlipidemia, mixed [E78.2] 02/01/2019 Chronic cough [R0 (more content not included)... [facility] 06-16-2024 Note HNO ID: [id number] Author: HERSON ASHFORD RN Service: ? Author Type: Registered Nurse Type: Progress Notes Filed: 06/16/2024 09:05 Note Text: [facility] Telephonic Outreach Provider Action/FYI Contacted for: Routine Telephonic Outreach Contact made with patient: Yes Patient identified by name and date of . Discussed care with patient Are you experiencing any new or worsening symptoms you need to talk about today? Yes Based on assessment coordinator, the following disposition is advised: No symptoms or symptoms present, not severe. Routed to: No Action Needed PEGGY Education Provided this Outreach: No Patient has struggled with incontinence and UTI' s for quite some time Despite antibiotics have been unable to clear infection Patient referred to Urology Encouraged patient to schedule appointment Discussed prevention and complications of untreated UTI's in the past with patient Herson Ashford RN June 16, 2024 9:00 AM [facility] 06-16-2024 History of Present illness Narrative [facility] Telephonic Outreach Provider Action/FYI Contacted for: Routine Telephonic Outreach Contact made with patient: Yes Patient identified by name and date of . Discussed care with patient Are you experiencing any new or worsening symptoms you need to talk about today? Yes Based on assessment coordinator, the following disposition is advised: No symptoms or symptoms present, not severe. Routed to: No Action Needed PEGGY Education Provided this Outreach: No Patient has struggled with incontinence and UTI' s for quite some time Despite antibiotics have been unable to clear infection Patient referred to Urology Encouraged patient to schedule appointment Discussed prevention and complications of untreated UTI's in the past with patient Herson Ashford RN June 16, 2024 9:00 AM documented in this encounter [facility] 06-16-2024 Note Patient Outreach ([facility]) ---- IVET VALERO ([id number]) 1955 F Date Time Provider Department [facility] visit today, we recorded the following information about you: Herson Ashford RN 06/16/2024 9:05 AM Signed [facility] Telephonic Outreach Provider Action/FYI Contacted for: Routine Telephonic Outreach Contact made with patient: Yes Patient identified by name and date of . Discussed care with patient Are you experiencing any new or worsening symptoms you need to talk about today? Yes Based on assessment coordinator, the following disposition is advised: No symptoms or symptoms present, not severe. Routed to: No Action Needed PEGGY Education Provided this Outreach: No Patient has struggled with incontinence and UTI' s for quite some time Despite antibiotics have been unable to clear infection Patient referred to Urology Encouraged patient to schedule appointment Discussed prevention and complications of untreated UTI's in the past with patient Herson Ashford RN June 16, 2024 9:00 AM Allergies As of Date: 06/16/2024 Noted Allergy Reaction CHANTIX (VARENICLINE) 01/22/2019 1 - Mental Status Change PENICILLINS 05/25/2008 4 - Hives SULFA (SULFONAMIDE ANTIBIOTICS) 09/19/2016 2 - Rash 14 - Other: See Comments Comments: Blisters and sore in throat Date Reviewed: 04/29/2024 Reviewed by: Smiley Melo APRN.LINE THERAPIST - Fully Assessed Reason for Visit: community monitoring outreach [Other] Cmt: [facility]-Telephonic outreach Prescriptions as of 06/16/2024 - insulin glargine U-300 conc (TOUJEO) 300 unit/mL (1.5 mL) Inject 80 Units subcutaneously every morning. E11.9 Dispense 2 boxes of 3 pens. - promethazine (PHENERGAN) 25 mg tablet Take 1 tablet by mouth every 6 hours as needed for nausea/vomiting. - topiramate (TOPAMAX) 25 mg tablet Take 1 tablet by mouth two times a day. - carvedilol (COREG) 12.5 mg tablet Take 1 tablet by mouth two times a day. - Insulin [place], Disposable, (BD ULTRA-FINE MINDY PEN NEEDLE) 32 gauge x 32 Use one needle for each dose, 4 times daily. (4mm) - insulin lispro (HUMALOG KWIKPEN INSULIN) 100 unit/mL Inject 12 Units subcutaneously three times a day before meals. And sliding scale up to 38 units tid. - albuterol HFA (VENTOLIN HFA) 90 mcg/actuation inhaler Inhale 2 Puffs as instructed every 4 hours as needed. - fluticasone-vilanterol (BREO ELLIPTA) 100-25 mcg/dose inhaler Inhale 1 Inhalation as instructed once daily. - nystatin (MYCOSTATIN) powder Apply 1 application to affected area four times daily. - ergocalciferol 50,000 unit capsule (VITAMIN D2, DRISDOL) Take 1 capsule by mouth one time a week. - albuterol (PROVENTIL) 2.5 mg /3 mL (0.083 %) nebulizer solution Use 3 mL via nebulizer every 4 hours as needed for wheezing/shortness of breath. Use over 5-15minutes. - Lancets lancets Test blood sugar(s) 3-4 times daily. Dx: Type 2 DM-Controlled Insulin: Yes - blood sugar diagnostic (BLOOD GLUCOSE TEST) test strip Test blood sugar(s) 3-4 times daily. Dx: Type 2 DM - Controlled E11.9 Insulin: Yes - gabapentin (NEURONTIN) 400 mg capsule Take 1 capsule by mouth three times a day for 90 days. - atorvastatin (LIPITOR) 20 mg tablet Take 1 tablet by mouth daily at bedtime. For cholesterol. - busPIRone (BUSPAR) 10 mg tablet Take 1 tablet by mouth three times daily. - omeprazole (PRILOSEC) 40 mg capsule Take 1 capsule by mouth once daily. - escitalopram oxalate (LEXAPRO) 20 mg tablet Take 20 mg by mouth once daily. - buPROPion XL (WELLBUTRIN XL) 150 mg 24 hr tablet Take 1 tablet by mouth once daily. - Insulin [place], Disposable, 32 gauge x 5/16 ndle Use four times daily with insulin - QUEtiapine XR (SEROQUEL XR) 300 mg 24 hr tablet Take 300 mg by mouth daily at bedtime. - Blood Pressure Monitor 1 Each once daily. - Blood Pressure Monitor EXLARGE BLOOD PRESSURE CUFF MONITOR KIT checking bp 4 times daily Problem List As Of Date 06/16/2024 Noted Resolved TOBACCO USE DISORDER [F17.200] CERVICAL DISC DEGEN [M50.30] Chronic bronchitis (HCC) [J42] Depressive disorder, not elsewhere classified [* 01/05/2022 Persistent disorder of initiating or maintainin*05/25/2008 01/05/2022 Migraine with aura [G43.109] PANIC DISORDER WITHOUT AGORAPHOBIA [F41.0] Fibromyalgia [M79.7] History of recurrent UTIs [Z87.440] 11/30/2015 Uncontrolled type 2 diabetes mellitus with hype* Secondary polycythemia [D75.1] 09/10/2017 Depression, major, recurrent, in complete remis*07/23/2018 Hyperlipidemia, mixed [E78.2] 02/01/2019 Chronic cough [R05.3] 01/04/2020 01/05/2022 Obesity, Class II, BMI 35-39.9 [E66.812] 02/29/2020 SOB (shortness of breath) [R06.02] 08/23/2020 01/05/2022 Acute bronchitis with chronic obstructive pulmo*10/02/2020 01/05/2022 Chest pressure [R07.89] 12/11/2020 01/05/2022 Rash [R21] 01/01/2021 (more content not included)... [facility] 06-10-2024 History of Present illness Narrative [facility] Telephonic Outreach Provider Action/FYI Contacted for: Routine Telephonic Outreach Contact made with patient: No, unable to leave message. Third attempt - patient is unable to be reached. Herson Ashford RN June 10, 2024 11:08 AM Phone rings-no voicemail set up documented in this encounter [facility] 06-09-2024 Telephone encounter Note Script was set to print so will fax to pharmacy. [facility] 06-09-2024 Miscellaneous Notes Script was set to print so will fax to pharmacy. The patient has been identified by name and date of : Yes Caregiver verified no other encounters exist for this prescription request: Yes Caregiver confirmed with patient/requestor that no other refills are due, in the near future, with this provider at this time: Yes The last office visit in the department: 04/29/2024 Does the patient have a future office visit with this provider/department: No Requested Prescriptions Pending Prescriptions Disp Refills insulin glargine U-300 conc (TOUJEO) 300 unit/mL (1.5 mL) 8.27 mL 0 Sig: Inject 80 Units subcutaneously every morning. E11.9 Dispense 2 boxes of 3 pens. Sue Quinonez RN June 09, 2024 8:34 AM documented in this encounter [facility] 06-09-2024 Telephone encounter Note The patient has been identified by name and date of : Yes Caregiver verified no other encounters exist for this prescription request: Yes Caregiver confirmed with patient/requestor that no other refills are due, in the near future, with this provider at this time: Yes The last office visit in the department: 04/29/2024 Does the patient have a future office visit with this provider/department: No Requested Prescriptions Pending Prescriptions Disp Refills insulin glargine U-300 conc (TOUJEO) 300 unit/mL (1.5 mL) 8.27 mL 0 Sig: Inject 80 Units subcutaneously every morning. E11.9 Dispense 2 boxes of 3 pens. Sue Quinonez RN June 09, 2024 8:34 AM [facility] 06-08-2024 History of Present illness Narrative [facility] Telephonic Outreach Provider Action/FYI Contacted for: Routine Telephonic Outreach Contact made with patient: No, unable to leave message. Will reattempt call Herson Ashford RN June 08, 2024 10:14 AM No voicemail set up Urology follow up UTI's documented in this encounter [facility] 06-07-2024 History of Present illness Narrative [facility] Telephonic Outreach Provider Action/FYI Contacted for: Routine Telephonic Outreach Contact made with patient: No, unable to leave message. Will reattempt call Herson Ashford RN June 07, 2024 1:00 PM Phone rings- no voicemail Referral to Urology -persistent UTI-e coli documented in this encounter [facility] 05-13-2024 Telephone encounter Note Faxed order as requested. Marylu Yeung MA May 13, 2024 10:31 AM [facility] 05-13-2024 Miscellaneous Notes Faxed order as requested. Marylu Yeung MA May 13, 2024 10:31 AM Spoke with patient declined to travel to other sites, and declined a male provider requesting to have referral sent to Dr Meredith Oropeza office in [place]. Patient returned call and went over notes below from Thong Melo DIRECTOR [employer] with understanding. Assisted with transfer to museum service scheduler to get Urology appt set up. Pt notified of antibiotic and transferred to main line to schedule Please let patient know that I sent ciprofloxacin twice daily for 10 days. Please make sure that she takes all of it. Get her scheduled for urology soon as possible. We cannot seem to eradicate this E. Coli infection documented in this encounter [facility] 05-13-2024 Telephone encounter Note Spoke with patient declined to travel to other sites, and declined a male provider requesting to have referral sent to Dr Meredith Oropeza office in [place]. [facility] 05-13-2024 Telephone encounter Note Patient returned call and went over notes below from Thong Melo [employer] with understanding. Assisted with transfer to museum service scheduler to get Urology appt set up. [facility] 05-13-2024 Telephone encounter Note Pt notified of antibiotic and transferred to main line to schedule [facility] 05-13-2024 Telephone encounter Note Please let patient know that I sent ciprofloxacin twice daily for 10 days. Please make sure that she takes all of it. Get her scheduled for urology soon as possible. We cannot seem to eradicate this E. Coli infection [facility] 05-11-2024 Telephone encounter Note Pt called and is notified of providers results and instructions. Pt voices understanding. Pt will call back in to schedule appointment as her phone was going to . Diane Guillermo, RN [facility] 05-11-2024 Miscellaneous Notes Pt called and is notified of providers results and instructions. Pt voices understanding. Pt will call back in to schedule appointment as her phone was going to . Diane Guillermo, RN Please let patient know that E. coli persists in her urine. I am going to refer her to urology. documented in this encounter [facility] 05-11-2024 Telephone encounter Note Please let patient know that E. coli persists in her urine. I am going to refer her to urology. [facility] 05-10-2024 Telephone encounter Note Megha with [facility] calls to request refill on Toujeo. Requesting a 31 day supply of Toujeo. Pended per request. Last OV: 05/10/2024 Next OV: 06/11/2024 Sue Quinonez RN [facility] 05-10-2024 Miscellaneous Notes Megha with [facility] calls to request refill on Toujeo. Requesting a 31 day supply of Toujeo. Pended per request. Last OV: 05/10/2024 Next OV: 06/11/2024 Sue Quinonez RN documented in this encounter [facility] 05-05-2024 History of Present illness Narrative [facility] Telephonic Outreach Provider Action/FYI Contacted for: Routine Telephonic Outreach Contact made with patient: Yes Patient identified by name and date of . Discussed care with patient Are you experiencing any new or worsening symptoms you need to talk about today? No Based on assessment coordinator, the following disposition is advised: No symptoms or symptoms present, not severe. Routed to: No Action Needed PEGGY Education Provided this Outreach: No Patient continues to struggle with recurrent UTI Discussed UTI prevention to include staying hydrated, wiping from front to back, urinate frequently, avoid douche, avoid alcohol, limit sugary drinks, changing pads after soiled Advise patient to discuss at follow up visit Taking anabiotic despite it causing nausea Has phenergan for nausea Discussed importance of culture after completing anitbiotic Discussed medication changes-increased carvedilol to 2x/daily Start topiramate twice daily for migranes Herson Ashford RN May 05, 2024 1:05 PM documented in this encounter [facility] 05-04-2024 History of Present illness Narrative [facility] Telephonic Outreach Provider Action/FYI Contacted for: Routine Telephonic Outreach Contact made with patient: No, unable to leave message. Will reattempt call Herson Ashford RN May 04, 2024 1:14 PM Phone rings-no voicemail set up documented in this encounter [facility] 05-03-2024 Telephone encounter Note Patient notified. [facility] 05-03-2024 Miscellaneous Notes Patient notified. Please let pt. Know that she has E coli infection UTI. Nitrofurantoin is effective to treat this infection. We should retest once antibiotic is complete. documented in this encounter [facility] 05-03-2024 Telephone encounter Note Please let pt. Know that she has E coli infection UTI. Nitrofurantoin is effective to treat this infection. We should retest once antibiotic is complete. [facility] 04-29-2024 Telephone encounter Note Order located on MA desk that was signed by physician. Faxed to requested number. [phone] [facility] 04-29-2024 Miscellaneous Notes Order located on MA desk that was signed by physician. Faxed to requested number. [phone] After hours can't find fax #. Phone # I am assuming she means a dme script. printed Pt called in to get incontinence supplies ordered through [facility]. She states she has to have a letter filled out by the provider and sent to the company. Pt states she gets attends, 3 types of pads (2 that go inside the attends), chucks, and gloves. Pt states she has seen Nanci Huber [employer] 08/27/23 and Smiley Melo [employer] 03/23/24, she has a hard time getting in and has to have someone drive her d/t her cataracts. Please call Pt and let her know when the forms have been sent for these supplies. documented in this encounter [facility] 04-29-2024 Instructions Smiley Melo APRN.SINGH - 04/29/2024 2:48 PM EDT 1) Consult dermatology 2) [employer] needs orders filled out of sheet that was faxed ? 3) Nitrofurantoin 2 x day 4) Increase carvedilol to 25 mg 2 x day- for blood pressure 5) Start topiramate 25 mg 2 x day 6) Repeat urine culture once antibiotic is finished 7) Follow up in 1 month documented in this encounter [facility] 04-29-2024 History of Present illness Narrative This is a 69 year old female who presents today with: Patient presents with: UTI Cough Headache Nausea HISTORY OF PRESENT ILLNESS: Ivet Valero is a 69 year old female. Patient presents with: UTI Cough Headache Nausea Dysuria. Had UTI that was treated. Got better for only a couple days. Dysuria Still Causing nausea and migraine. Migraines are daily or every other day. A little light sensitive. Sound sensitive. Body aches. PAST MEDICAL HISTORY: PAST MEDICAL HISTORY No date: Chronic airway obstruction, not elsewhere classified No date: Degeneration of cervical intervertebral disc Comment: related to neck injury No date: Depressive disorder, not elsewhere classified No date: DM (diabetes mellitus) (HCC) No date: Fibromyalgia No date: Migraine with aura, without mention of intractable migraine without mention of status migrainosus No date: Panic disorder without agoraphobia Comment: had hx of failed urine screen No date: Recurrent UTI No date: Tobacco use disorder PAST SURGICAL HISTORY No date: CHOLECYSTECTOMY 12/06/2015: ESOPHAGOGASTRODUODENOSCOPY TRANSORAL DIAGNOSTIC Comment: EGD No date: LIG/TRNSXJ FLP TUBE ABDL/VAG APPR UNI/BI Comment: Tubal ligation 03/2014: PAST SURGICAL HISTORY OF; Left Comment: ANKLE FRACTURE REPAIR 2012: S SLING BLADDER Comment: & No date: TOTAL ABDOMINAL HYSTERECT W/WO RMVL TUBE OVARY Comment: Hysterectomy, REJI ALLERGIES Chantix [Varenicline], Penicillins, and Sulfa (Sulfonamide Antibiotics) MEDICATIONS Current Outpatient Medications Medication Sig insulin glargine U-300 conc (TOUJEO) 300 unit/mL (1.5 mL) Inject 80 Units subcutaneously every morning. E11.9 promethazine (PHENERGAN) 25 mg tablet Take 1 tablet by mouth every 6 hours as needed for nausea/vomiting. Insulin [place], Disposable, (BD ULTRA-FINE MINDY PEN NEEDLE) 32 gauge x 5 Use one needle for each dose, 4 times daily. (4mm) insulin lispro (HUMALOG KWIKPEN INSULIN) 100 unit/mL Inject 12 Units subcutaneously three times a day before meals. And sliding scale up to 38 units tid. albuterol HFA (VENTOLIN HFA) 90 mcg/actuation inhaler Inhale 2 Puffs as instructed every 4 hours as needed. fluticasone-vilanterol (BREO ELLIPTA) 100-25 mcg/dose inhaler Inhale 1 Inhalation as instructed once daily. nystatin (MYCOSTATIN) powder Apply 1 application to affected area four times daily. ergocalciferol 50,000 unit capsule (VITAMIN D2, DRISDOL) Take 1 capsule by mouth one time a week. albuterol (PROVENTIL) 2.5 mg /3 mL (0.083 %) nebulizer solution Use 3 mL via nebulizer every 4 hours as needed for wheezing/shortness of breath. Use over 5-15minutes. Lancets lancets Test blood sugar(s) 3-4 times daily. Dx: Type 2 DM-Controlled Insulin: Yes blood sugar diagnostic (BLOOD GLUCOSE TEST) test strip Test blood sugar(s) 3-4 times daily. Dx: Type 2 DM - Controlled E11.9 Insulin: Yes gabapentin (NEURONTIN) 400 mg capsule Take 1 capsule by mouth three times a day for 90 days. atorvastatin (LIPITOR) 20 mg tablet Take 1 tablet by mouth daily at bedtime. For cholesterol. busPIRone (BUSPAR) 10 mg tablet Take 1 tablet by mouth three times daily. omeprazole (PRILOSEC) 40 mg capsule Take 1 capsule by mouth once daily. carvedilol (COREG) 3.125 mg tablet Take 1 tablet by mouth twice daily. escitalopram oxalate (LEXAPRO) 20 mg tablet Take 20 mg by mouth once daily. buPROPion XL (WELLBUTRIN XL) 150 mg 24 hr tablet Take 1 tablet by mouth once daily. Insulin [place], Disposable, 32 gauge x 5/16 ndle Use four times daily with insulin QUEtiapine XR (SEROQUEL XR) 300 mg 24 hr tablet Take 300 mg by mouth daily at bedtime. Blood Pressure Monitor 1 Each once daily. Blood Pressure Monitor EXLARGE BLOOD PRESSURE CUFF MONITOR KIT checking bp 4 times daily benzonatate (TESSALON PERLES) 100 mg capsule Take 1-2 capsules by mouth three times a day as needed for cough. No current facility-administered medications for this visit. FAMILY HISTORY Problem Relation Age of Onset Hypertension Mother Social History Tobacco Use Smoking status: Some Days Current packs/day: 1.00 Average packs/day: 1 pack/day for 40.0 years (40.0 ttl pk-yrs) Types: Cigarettes Smokeless tobacco: Never Tobacco comments: 3 cigarettes daily? Vaping Use Vaping status: Never Used Substance Use Topics Alcohol use: No Drug use: No EXAM: BP 160/86 Pulse 110 Temp 37.5 C (99.5 F) (Tympanic) Wt 105.2 kg (232 lb) SpO2 95% BMI 36.33 kg/m PHYSICAL EXAM: Physical Exam Vitals reviewed. Constitutional: Appearance: Normal appearance. She is obese. HENT: Head: Normocephalic. Right Ear: Tympanic membrane, ear canal and external ear normal. There is no impacted cerumen. Left Ear: Tympanic membrane, ear canal and external ear normal. There is no impacted cerumen. Nose: Congestion present. No rhinorrhea. Mouth/Throat: Mouth: Mucous membranes are dry. Eyes: Pupils: Pupils are equal, round, and reactive to light. Skin: General: Skin is warm and dry. Neurological: General: No focal deficit present. Mental Status: She is alert and oriented to person, place, and time. Comments: Cranial nerves III-XII intact, no finger to nose ataxia but sight intention tremor LABS: ASSESSMENT/PLAN: 1. Recurrent UTI (urinary tract infection) - ICD9: 599.0, ICD10: N39.0 (primary diagnosis) acute - Patient education for prevention given - UA DIP, URINE (POC) - URINE CULTURE - URINALYSIS, DIPSTICK ONLY 2. Chronic nausea - ICD9: 787.02, ICD10: R11.0 Phenergan renewed 3. Fibromyalgia - ICD9: 729.1, ICD10: M79.7 Ongoing 4. Primary hypertension - ICD9: 401.9, ICD10: I10 - Uncontrolled - Recommend home blood pressure monitoring, to bring results to next visit - Encouraged sodium restriction, DASH or Mediterranean diet - Recommend regular aerobic exercise - Increase carvedilol to 12.5 mg 2 x day 5. Migraine with aura and without status migrainosus, not intractable - ICD9: 346.00, ICD10: G43.109 - Start topiramate 25 mg 2 x day - Increase carvedilol to 12.5 mg 2 x day 6. Stress incontinence - ICD9: [id number], ICD10: N39.3 Needs more urinary supplies 7. 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 Patient's questions answered appropriately. Medications and potential side effects were discussed and patient voices understanding. Return to the office as scheduled or as needed for worsening/no improvement. Smiley Melo APRN.SINGH documented in this encounter [facility] 04-23-2024 Telephone encounter Note After hours can't find fax #. Phone # [facility] 04-23-2024 Telephone encounter Note The patient has been identified by name and date of : Yes Caregiver verified no other encounters exist for this prescription request: Yes Caregiver confirmed with patient/requestor that no other refills are due, in the near future, with this provider at this time: Yes The last office visit in the department: 03/23/2024 Does the patient have a future office visit with this provider/department: 04/30/2024 Requested Prescriptions Pending Prescriptions Disp Refills insulin glargine U-300 conc (TOUJEO) 300 unit/mL (1.5 mL) 5 Each 0 Sig: Inject 80 Units subcutaneously every morning. E11.9 Sue Quinonez RN April 23, 2024 3:29 PM [facility] 04-23-2024 Miscellaneous Notes The patient has been identified by name and date of : Yes Caregiver verified no other encounters exist for this prescription request: Yes Caregiver confirmed with patient/requestor that no other refills are due, in the near future, with this provider at this time: Yes The last office visit in the department: 03/23/2024 Does the patient have a future office visit with this provider/department: 04/30/2024 Requested Prescriptions Pending Prescriptions Disp Refills insulin glargine U-300 conc (TOUJEO) 300 unit/mL (1.5 mL) 5 Each 0 Sig: Inject 80 Units subcutaneously every morning. E11.9 Sue Quinonez RN April 23, 2024 3:29 PM documented in this encounter [facility] 04-23-2024 Telephone encounter Note I am assuming she means a dme script. printed [facility] 04-22-2024 Telephone encounter Note Pt called in to get incontinence supplies ordered through [employer]. She states she has to have a letter filled out by the provider and sent to the company. Pt states she gets attends, 3 types of pads (2 that go inside the attends), chucks, and gloves. Pt states she has seen Nanci Huber [employer] 08/27/23 and Smiley Melo [employer] 03/23/24, she has a hard time getting in and has to have someone drive her d/t her cataracts. Please call Pt and let her know when the forms have been sent for these supplies. [facility] 04-20-2024 Telephone encounter Note Prescription Refill Information The patient has been identified by name and date of : Yes Caregiver verified no other encounters exist for this prescription request: Yes Caregiver confirmed with patient/requestor that no other refills are due, in the near future, with this provider at this time: Yes The last office visit in the department: 03-23-24 Does the patient have a future office visit with this provider/department: No Requested Prescriptions Pending Prescriptions Disp Refills promethazine (PHENERGAN) 25 mg tablet 40 tablet 0 Sig: Take 1 tablet by mouth every 6 hours as needed for nausea/vomiting. Joyce Greer April 20, 2024 11:52 AM [facility] 04-20-2024 Miscellaneous Notes Prescription Refill Information The patient has been identified by name and date of : Yes Caregiver verified no other encounters exist for this prescription request: Yes Caregiver confirmed with patient/requestor that no other refills are due, in the near future, with this provider at this time: Yes The last office visit in the department: 03-23-24 Does the patient have a future office visit with this provider/department: No Requested Prescriptions Pending Prescriptions Disp Refills promethazine (PHENERGAN) 25 mg tablet 40 tablet 0 Sig: Take 1 tablet by mouth every 6 hours as needed for nausea/vomiting. Joyce Greer April 20, 2024 11:52 AM documented in this encounter [facility] 04-12-2024 Telephone encounter Note The following approved medication requests have been transmitted electronically. Requested Prescriptions Pending Prescriptions Disp Refills insulin glargine U-300 conc (TOUJEO) 300 unit/mL (1.5 mL) 5 Each 0 Sig: Inject 80 Units subcutaneously every morning. E11.9 Smiley Melo APRN.CNP [facility] 04-12-2024 Miscellaneous Notes The following approved medication requests have been transmitted electronically. Requested Prescriptions Pending Prescriptions Disp Refills insulin glargine U-300 conc (TOUJEO) 300 unit/mL (1.5 mL) 5 Each 0 Sig: Inject 80 Units subcutaneously every morning. E11.9 Smiley Melo APRN.SINGH The patient has been identified by name and date of : Yes Caregiver verified no other encounters exist for this prescription request: Yes Caregiver confirmed with patient/requestor that no other refills are due, in the near future, with this provider at this time: Yes The last office visit in the department: 03/23/2024 Does the patient have a future office visit with this provider/department: No Visit date not found Requested Prescriptions Pending Prescriptions Disp Refills insulin glargine U-300 conc (TOUJEO) 300 unit/mL (1.5 mL) 5 Each 0 Sig: Inject 80 Units subcutaneously every morning. E11.9 Yasmany Willis RN April 12, 2024 2:18 PM documented in this encounter [facility] 04-12-2024 Telephone encounter Note The patient has been identified by name and date of : Yes Caregiver verified no other encounters exist for this prescription request: Yes Caregiver confirmed with patient/requestor that no other refills are due, in the near future, with this provider at this time: Yes The last office visit in the department: 03/23/2024 Does the patient have a future office visit with this provider/department: No Visit date not found Requested Prescriptions Pending Prescriptions Disp Refills insulin glargine U-300 conc (TOUJEO) 300 unit/mL (1.5 mL) 5 Each 0 Sig: Inject 80 Units subcutaneously every morning. E11.9 Yasmany Willis RN April 12, 2024 2:18 PM [facility] 04-06-2024 History of Present illness Narrative [facility] Telephonic Outreach Provider Action/FYI Contacted for: Routine Telephonic Outreach Contact made with patient: No, unable to leave message. Will reattempt call Herson Ashford RN April 06, 2024 3:27 PM [facility] Telephonic Outreach Provider Action/FYI Contacted for: Routine Telephonic Outreach Contact made with patient: No, unable to leave message. Will reattempt call Herson Ashford RN April 06, 2024 12:49 PM No voicemail documented in this encounter [facility] 04-02-2024 History of Present illness Narrative [facility] Telephonic Outreach Provider Action/FYI Contacted for: Routine Telephonic Outreach Contact made with patient: Yes Patient identified by name and date of . Discussed care with patient Are you experiencing any new or worsening symptoms you need to talk about today? Yes Based on assessment coordinator, the following disposition is advised: No symptoms or symptoms present, not severe. Routed to: No Action Needed PEGGY Education Provided this Outreach: No Patient states she completed antibiotics She still feels like she has an infection Advised order is in to have culture repeated. States she will go to lab on Friday Encouraged to stay hydrated- water States she has to buy water as they have well water Discussed wiping from front to back, shower, no baths Herson Ashford RN April 02, 2024 3:50 PM documented in this encounter [facility] 04-02-2024 Telephone encounter Note Prescription Refill Information The patient has been identified by name and date of : Yes Caregiver verified no other encounters exist for this prescription request: Yes Caregiver confirmed with patient/requestor that no other refills are due, in the near future, with this provider at this time: Yes The last office visit in the department: 03/23/24 Does the patient have a future office visit with this provider/department: Yes 04/06/24 Requested Prescriptions Pending Prescriptions Disp Refills promethazine (PHENERGAN) 25 mg tablet 40 tablet 0 Sig: Take 1 tablet by mouth every 6 hours as needed for nausea/vomiting. Patient stated she is not out but taking an antibiotic and wants to make sure she has enough over the weekend. Joycelyn Greer April 02, 2024 9:36 AM [facility] 04-02-2024 Miscellaneous Notes Prescription Refill Information The patient has been identified by name and date of : Yes Caregiver verified no other encounters exist for this prescription request: Yes Caregiver confirmed with patient/requestor that no other refills are due, in the near future, with this provider at this time: Yes The last office visit in the department: 03/23/24 Does the patient have a future office visit with this provider/department: Yes 04/06/24 Requested Prescriptions Pending Prescriptions Disp Refills promethazine (PHENERGAN) 25 mg tablet 40 tablet 0 Sig: Take 1 tablet by mouth every 6 hours as needed for nausea/vomiting. Patient stated she is not out but taking an antibiotic and wants to make sure she has enough over the weekend. Joycelyn Greer April 02, 2024 9:36 AM documented in this encounter [facility] 03-25-2024 Telephone encounter Note Patient notified. [facility] 03-25-2024 Miscellaneous Notes Patient notified. Urinary tract infection showed E. coli. The nitrofurantoin should be effective in eradicating this bacteria. We need to recheck a urine culture when she completes the antibiotic. documented in this encounter [facility] 03-25-2024 Telephone encounter Note Urinary tract infection showed E. coli. The nitrofurantoin should be effective in eradicating this bacteria. We need to recheck a urine culture when she completes the antibiotic. [facility] 03-24-2024 Telephone encounter Note The patient has been identified by name and date of : Yes Caregiver verified no other encounters exist for this prescription request: Yes Caregiver confirmed with patient/requestor that no other refills are due, in the near future, with this provider at this time: Yes The last office visit in the department: 03/23/2024 Does the patient have a future office visit with this provider/department: Yes 04/06/2024 Requested Prescriptions Pending Prescriptions Disp Refills insulin glargine U-300 conc (TOUJEO) 300 unit/mL (1.5 mL) 5 Each 0 Sig: Inject 80 Units subcutaneously every morning. E11.9 Yasmany Willis RN March 24, 2024 1:54 PM [facility] 03-24-2024 Miscellaneous Notes The patient has been identified by name and date of : Yes Caregiver verified no other encounters exist for this prescription request: Yes Caregiver confirmed with patient/requestor that no other refills are due, in the near future, with this provider at this time: Yes The last office visit in the department: 03/23/2024 Does the patient have a future office visit with this provider/department: Yes 04/06/2024 Requested Prescriptions Pending Prescriptions Disp Refills insulin glargine U-300 conc (TOUJEO) 300 unit/mL (1.5 mL) 5 Each 0 Sig: Inject 80 Units subcutaneously every morning. 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 For 2 weeks documented in this encounter [facility] 03-23-2024 History of Present illness Narrative This is a 68 year old female who presents today with: Patient presents with: UTI HISTORY OF PRESENT ILLNESS: Ivet Valero is a 68 year old female. Patient presents with: UTI Burning with urination for 1-2 weeks. No hematuria. Hx of resistant strain of bacteria. Some sweats at night. Entire pelvis aches. Glands are swollen. Breast rash. Present for 5-6 months. 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 Depressive disorder, not elsewhere classified DM (diabetes mellitus) (HCC) Fibromyalgia Migraine with aura, without mention of intractable migraine without mention of status migrainosus Panic disorder without agoraphobia had hx of failed urine screen Recurrent UTI Tobacco use disorder PAST SURGICAL HISTORY Procedure Laterality Date CHOLECYSTECTOMY ESOPHAGOGASTRODUODENOSCOPY TRANSORAL DIAGNOSTIC 12/06/2015 EGD LIG/TRNSXJ FLP TUBE ABDL/VAG APPR UNI/BI Tubal ligation PAST SURGICAL HISTORY OF Left 03/2014 ANKLE FRACTURE REPAIR S SLING BLADDER 2012 & TOTAL ABDOMINAL HYSTERECT W/WO RMVL TUBE OVARY Hysterectomy, REJI ALLERGIES Chantix [Varenicline], Penicillins, and Sulfa (Sulfonamide Antibiotics) MEDICATIONS Current Outpatient Medications Medication Sig promethazine (PHENERGAN) 25 mg tablet Take 1 tablet by mouth every 6 hours as needed for nausea/vomiting. insulin glargine U-300 conc (TOUJEO) 300 unit/mL (1.5 mL) Inject 80 Units subcutaneously every morning. E11.9 Insulin [place], Disposable, (BD ULTRA-FINE MINDY PEN NEEDLE) 32 gauge x 5/32 Use one needle for each dose, 4 times daily. (4mm) insulin lispro (HUMALOG KWIKPEN INSULIN) 100 unit/mL Inject 12 Units subcutaneously three times a day before meals. And sliding scale up to 38 units tid. albuterol HFA (VENTOLIN HFA) 90 mcg/actuation inhaler Inhale 2 Puffs as instructed every 4 hours as needed. fluticasone-vilanterol (BREO ELLIPTA) 100-25 mcg/dose inhaler Inhale 1 Inhalation as instructed once daily. benzonatate (TESSALON PERLES) 100 mg capsule Take 1-2 capsules by mouth three times a day as needed for cough. nystatin (MYCOSTATIN) powder Apply 1 application to affected area four times daily. ergocalciferol 50,000 unit capsule (VITAMIN D2, DRISDOL) Take 1 capsule by mouth one time a week. albuterol (PROVENTIL) 2.5 mg /3 mL (0.083 %) nebulizer solution Use 3 mL via nebulizer every 4 hours as needed for wheezing/shortness of breath. Use over 5-15minutes. Lancets lancets Test blood sugar(s) 3-4 times daily. Dx: Type 2 DM-Controlled Insulin: Yes blood sugar diagnostic (BLOOD GLUCOSE TEST) test strip Test blood sugar(s) 3-4 times daily. Dx: Type 2 DM - Controlled E11.9 Insulin: Yes gabapentin (NEURONTIN) 400 mg capsule Take 1 capsule by mouth three times a day for 90 days. atorvastatin (LIPITOR) 20 mg tablet Take 1 tablet by mouth daily at bedtime. For cholesterol. busPIRone (BUSPAR) 10 mg tablet Take 1 tablet by mouth three times daily. omeprazole (PRILOSEC) 40 mg capsule Take 1 capsule by mouth once daily. carvedilol (COREG) 3.125 mg tablet Take 1 tablet by mouth twice daily. escitalopram oxalate (LEXAPRO) 20 mg tablet Take 20 mg by mouth once daily. buPROPion XL (WELLBUTRIN XL) 150 mg 24 hr tablet Take 1 tablet by mouth once daily. Insulin [place], Disposable, 32 gauge x 5/16 ndle Use four times daily with insulin QUEtiapine XR (SEROQUEL XR) 300 mg 24 hr tablet Take 300 mg by mouth daily at bedtime. Blood Pressure Monitor 1 Each once daily. Blood Pressure Monitor [email or web address] BLOOD PRESSURE CUFF MONITOR KIT checking bp 4 times daily No current facility-administered medications for this visit. FAMILY HISTORY Problem Relation Age of Onset Hypertension Mother Social History Tobacco Use Smoking status: Some Days Packs/day: 1.00 Years: 40.00 Additional pack years: 0.00 Total pack years: 40.00 Types: Cigarettes Smokeless tobacco: Never Tobacco comments: 3 cigarettes daily? Vaping Use Vaping Use: Never used Substance Use Topics Alcohol use: No Drug use: No EXAM: BP 144/80 Pulse 115 Resp 20 Wt 103.4 kg (228 lb) SpO2 96% BMI 35.70 kg/m PHYSICAL EXAM: Physical Exam Vitals reviewed. Constitutional: Appearance: Normal appearance. HENT: Head: Normocephalic. Cardiovascular: Rate and Rhythm: Normal rate and regular rhythm. Pulses: Normal pulses. Heart sounds: Normal heart sounds. Pulmonary: Effort: Pulmonary effort is normal. Breath sounds: Normal breath sounds. Abdominal: Palpations: Abdomen is soft. Tenderness: There is no abdominal tenderness. There is no guarding. Skin: Comments: Diaphoretic Under breasts- pendulous, red and inflamed- some open blisters Neurological: Mental Status: She is alert. LABS: urine shows nitrates ASSESSMENT/PLAN: 1. Dysuria - ICD9: 788.1, ICD10: R30.0 (primary diagnosis) acute - Patient education for prevention given - URINE CULTURE - URINALYSIS, WITH MICROSCOPIC - PHENAZOPYRIDINE 200 MG TABLET 3 x day as needed for urinary discomfort - NITROFURANTOIN MONOHYDRATE & MACROCRYSTAL 100 MG ORAL CAP 2 x day for infection 2. 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 Tinea corporis - ICD9: 110.5, ICD10: B35.4 - Treat with meds as above twice a day until rash resolves and then another week - KETOCONAZOLE 2 % SHAMPOO - NYSTATIN 100,000 UNIT/GRAM TOPICAL POWDER Discussed treatment plan and patient voices understanding. Patient's questions answered appropriately. Medications and potential side effects were discussed and patient voices understanding. Return to the office as scheduled or as needed for worsening/no improvement. Smiley Melo APRN.CNP documented in this encounter [facility] 03-22-2024 Telephone encounter Note Patient called for urinary symptoms. Triage recommends see provider within 24 hours. Scheduled. Care advice reviewed. Patient verbalizes understanding. Reason for Disposition Age > 50 years Answer Assessment - Initial Assessment Questions 1. SEVERITY: - MODERATE (4-7): interferes with normal activities 2. FREQUENCY:Patient reports burning with urination each episode staring yesterday. 3. PATTERN: Each episode. 4. ONSET:Yesterday 5. FEVER: No 6. PAST UTI: HX of UTI with antibiotic treatment. 7. CAUSE:Patient believes it to be a UTI. 8. OTHER SYMPTOMS: Patient reports urgency per her usual. No blood in urine, flank pain, genital sores, , vaginal discharge. Protocols used: Urination Pain - Cvlnzs-LCQFT-PL [facility] 03-22-2024 Miscellaneous Notes Patient called for urinary symptoms. Triage recommends see provider within 24 hours. Scheduled. Care advice reviewed. Patient verbalizes understanding. Reason for Disposition Age > 50 years Answer Assessment - Initial Assessment Questions 1. SEVERITY: - MODERATE (4-7): interferes with normal activities 2. FREQUENCY:Patient reports burning with urination each episode staring yesterday. 3. PATTERN: Each episode. 4. ONSET:Yesterday 5. FEVER: No 6. PAST UTI: HX of UTI with antibiotic treatment. 7. CAUSE:Patient believes it to be a UTI. 8. OTHER SYMPTOMS: Patient reports urgency per her usual. No blood in urine, flank pain, genital sores, , vaginal discharge. Protocols used: Urination Pain - Oauzjo-UGVEG-EA documented in this encounter [facility] 03-16-2024 Telephone encounter Note Prescription Refill Information The patient has been identified by name and date of : Yes Caregiver verified no other encounters exist for this prescription request: Yes Caregiver confirmed with patient/requestor that no other refills are due, in the near future, with this provider at this time: Yes The last office visit in the department: 08/27/2023 Does the patient have a future office visit with this provider/department: No Requested Prescriptions Pending Prescriptions Disp Refills promethazine (PHENERGAN) 25 mg tablet 40 tablet 0 Sig: Take 1 tablet by mouth every 6 hours as needed for nausea/vomiting. Laurel Terrazas March 16, 2024 2:49 PM [facility] 03-16-2024 Miscellaneous Notes Prescription Refill Information The patient has been identified by name and date of : Yes Caregiver verified no other encounters exist for this prescription request: Yes Caregiver confirmed with patient/requestor that no other refills are due, in the near future, with this provider at this time: Yes The last office visit in the department: 08/27/2023 Does the patient have a future office visit with this provider/department: No Requested Prescriptions Pending Prescriptions Disp Refills promethazine (PHENERGAN) 25 mg tablet 40 tablet 0 Sig: Take 1 tablet by mouth every 6 hours as needed for nausea/vomiting. Laurel Tirado [facility] [place], 2024 2:49 PM documented in this encounter [facility] 03-08-2024 Telephone encounter Note Patient has been identified by name and date of : Yes Patient phones for refill(s): Requested Prescriptions Pending Prescriptions Disp Refills insulin glargine U-300 conc (TOUJEO) 300 unit/mL (1.5 mL) 5 Each 5 Sig: Inject 80 Units subcutaneously every morning. E11.9 Insulin [place], Disposable, (BD ULTRA-FINE MINDY PEN NEEDLE) 32 gauge x 5/32 120 Each 11 Sig: Use one needle for each dose, 4 times daily. (4mm) Date of last office visit in primary care: 08/27/2023 Date of next office visit in primary care: Visit date not found Please advise. Thank you. Mirian Mckinnon. [facility] 03-08-2024 Miscellaneous Notes Patient has been identified by name and date of : Yes Patient phones for refill(s): Requested Prescriptions Pending Prescriptions Disp Refills insulin glargine U-300 conc (TOUJEO) 300 unit/mL (1.5 mL) 5 Each 5 Sig: Inject 80 Units subcutaneously every morning. E11.9 Insulin [place], Disposable, (BD ULTRA-FINE MINDY PEN NEEDLE) 32 gauge x 5/32 120 Each 11 Sig: Use one needle for each dose, 4 times daily. (4mm) Date of last office visit in primary care: 08/27/2023 Date of next office visit in primary care: Visit date not found Please advise. Thank you. Mirian Mckinnon. documented in this encounter [facility] 03-05-2024 History of Present illness Narrative [facility] Telephonic Outreach Provider Action/FYI No concerns Contacted for: Routine Telephonic Outreach Contact made with patient: Yes Patient identified by name and date of . Discussed care with patient Are you experiencing any new or worsening symptoms you need to talk about today? No Based on assessment coordinator, the following disposition is advised: No symptoms or symptoms present, not severe. Routed to: No Action Needed PEGGY Education Provided this Outreach: No Herson Ashford RN March 05, 2024 4:30 PM documented in this encounter [facility] 02-20-2024 Telephone encounter Note Prescription Refill Information The patient has been identified by name and date of : Yes Caregiver verified no other encounters exist for this prescription request: Yes Caregiver confirmed with patient/requestor that no other refills are due, in the near future, with this provider at this time: Yes The last office visit in the department: 08/27/23 Does the patient have a future office visit with this provider/department: No Requested Prescriptions Pending Prescriptions Disp Refills promethazine (PHENERGAN) 25 mg tablet 40 tablet 0 Sig: Take 1 tablet by mouth every 6 hours as needed for nausea/vomiting. Asmita Greer February 20, 2024 9:51 AM [facility] 02-20-2024 Miscellaneous Notes Prescription Refill Information The patient has been identified by name and date of : Yes Caregiver verified no other encounters exist for this prescription request: Yes Caregiver confirmed with patient/requestor that no other refills are due, in the near future, with this provider at this time: Yes The last office visit in the department: 08/27/23 Does the patient have a future office visit with this provider/department: No Requested Prescriptions Pending Prescriptions Disp Refills promethazine (PHENERGAN) 25 mg tablet 40 tablet 0 Sig: Take 1 tablet by mouth every 6 hours as needed for nausea/vomiting. Asmita Greer February 20, 2024 9:51 AM documented in this encounter [facility] 02-05-2024 History of Present illness Narrative [facility] Telephonic Outreach Provider Action/FYI Phone rings -picks up -no voicemail Contacted for: Routine Telephonic Outreach Contact made with patient: No, unable to leave message. Third attempt - patient is unable to be reached. Herson Ashford RN February 05, 2024 1:04 PM documented in this encounter [facility] 02-05-2024 History of Present illness Narrative [facility] Telephonic Outreach Provider Action/FYI Phone rings- no voicemail Contacted for: Routine Telephonic Outreach Contact made with patient: No, unable to leave message. Will reattempt call Herson Ashford RN February 05, 2024 9:40 AM documented in this encounter [facility] 02-04-2024 Telephone encounter Note Prescription Refill Information The patient has been identified by name and date of : Yes Caregiver verified no other encounters exist for this prescription request: Yes Caregiver confirmed with patient/requestor that no other refills are due, in the near future, with this provider at this time: Yes The last office visit in the department: 08-27-23 Does the patient have a future office visit with this provider/department: No Requested Prescriptions Pending Prescriptions Disp Refills insulin lispro (HUMALOG KWIKPEN INSULIN) 100 unit/mL 1 Each 5 Sig: Inject 12 Units subcutaneously three times a day before meals. And sliding scale up to 38 units tid. Yasmany Willis RN February 04, 2024 10:27 AM [facility] 02-04-2024 Miscellaneous Notes Prescription Refill Information The patient has been identified by name and date of : Yes Caregiver verified no other encounters exist for this prescription request: Yes Caregiver confirmed with patient/requestor that no other refills are due, in the near future, with this provider at this time: Yes The last office visit in the department: 08-27-23 Does the patient have a future office visit with this provider/department: No Requested Prescriptions Pending Prescriptions Disp Refills insulin lispro (HUMALOG KWIKPEN INSULIN) 100 unit/mL 1 Each 5 Sig: Inject 12 Units subcutaneously three times a day before meals. And sliding scale up to 38 units tid. Yasmany Willis RN February 04, 2024 10:27 AM documented in this encounter [facility] 02-04-2024 History of Present illness Narrative [facility] Telephonic Outreach Provider Action/FYI Phone rings- no voicemail Contacted for: Routine Telephonic Outreach Contact made with patient: No, unable to leave message. Will reattempt call Herson Ashford RN February 04, 2024 3:26 PM documented in this encounter [facility] 01-30-2024 History of Present illness Narrative [facility] Telephonic Outreach Provider Action/FYI Patient states she thinks she has another UTI Complaints of pain with urination, frequency Denies bleeding Having some nausea Advised PCC can reach out to physician to contact her to evaluate and based on evaluation prescribe antibiotic. Discussed would still need to get urine to lab for culture. States she does not have a car and everyone is working. 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 Advised to be seen at [facility] after family gets off work this evening. Discussed complications of untreated UTI Noted patient with similar symptoms on 12/28 triage call- Patient did not go to ED as advised. States had some issues and she needed to help him Again reinforced importance of being evaluated promptly. Patient states she will go to urgent care after family off work to take her. Advised can always call 911 if worsening symptoms Contacted for: Routine Telephonic Outreach Contact made with patient: Yes Patient identified by name and date of . Discussed care with patient Are you experiencing any new or worsening symptoms you need to talk about today? Yes Based on assessment coordinator, the following disposition is advised: No symptoms or symptoms present, not severe. Routed to: No Action Needed PEGGY Education Provided this Outreach: No Herson Ashford RN January 30, 2024 11:45 AM documented in this encounter [facility] 01-05-2024 Telephone encounter Note Patient has been identified by name and date of : Yes, Provider Dr. Cole Date 01-05-24 Time 8:28 am Patient phones for refill(s): Requested Prescriptions Pending Prescriptions Disp Refills albuterol HFA (VENTOLIN HFA) 90 mcg/actuation inhaler 18 g 5 Sig: Inhale 2 Puffs as instructed every 4 hours as needed. promethazine (PHENERGAN) 25 mg tablet 40 tablet 0 Sig: Take 1 tablet by mouth every 6 hours as needed for nausea/vomiting. Date of last office visit in primary care: 08/27/2023 Date of next office visit in primary care: Visit date not found Please advise. Thank you. Tyra Greer. [facility] 01-05-2024 Miscellaneous Notes Patient has been identified by name and date of : Yes, Provider Dr. Cole Date 01-05-24 Time 8:28 am Patient phones for refill(s): Requested Prescriptions Pending Prescriptions Disp Refills albuterol HFA (VENTOLIN HFA) 90 mcg/actuation inhaler 18 g 5 Sig: Inhale 2 Puffs as instructed every 4 hours as needed. promethazine (PHENERGAN) 25 mg tablet 40 tablet 0 Sig: Take 1 tablet by mouth every 6 hours as needed for nausea/vomiting. Date of last office visit in primary care: 08/27/2023 Date of next office visit in primary care: Visit date not found Please advise. Thank you. Tyra Greer. documented in this encounter [facility] 01-01-2024 History of Present illness Narrative [facility] Telephonic Outreach Provider Danielle/JAMARCUS Phone rings- picks up no voicemail set up Contacted for: Routine Telephonic Outreach Contact made with patient: No, unable to leave message. Will reattempt call Herson Ashford RN January 01, 2024 11:54 AM [facility] Telephonic Outreach Provider Danielle/JAMARCUS Reached patient's dtr- States her mother not available right now Requests call back tomorrow Contacted for: Routine Telephonic Outreach Contact made with patient: Yes Patient identified by name and date of . Discussed care with daughter documented in this encounter [facility] 12-29-2023 Telephone encounter Note Reason for Call: Incontinence, burning with urination, feels like she has the flu Outcome: Advised to GO TO ED NOW. Patient verbalized understanding and is agreeable to the plan with modifications. Patient did not have a ride to the Emergency Room. Stated that she was going to go this afternoon when her got home. Reviewed concerns for waiting that long and re-advised ED NOW. Advised calling a friend, an Uber, or calling 911. Patient said she will head to [place] when she can find a ride. Reason for Disposition [1] Unable to urinate (or only a few drops) > 4 hours AND [2] bladder feels very full (e.g., palpable bladder or strong urge to urinate) Nursing Judgment: - Symptoms: Very weak, Incontinent (frequent), burning with urination, feels like she has the flu, but knows she doesn't, skin feels clammy at times, but not now - Sometimes has full stream it gushes, other times she is not able to get anything out. Now, her bladder feels very full. - Wearing 2 pull ups, usually wears 1. - Concern for UTI. - Patient has had previous UTI's and states that this feels similar [1] Pain or burning with passing urine (urination) AND [2] female Protocols used: Urinary Svbxiinx-DZMPY-GS, Urination Pain - Awdyfc-EMFPL-MQ [facility] 12-29-2023 Miscellaneous Notes Reason for Call: Incontinence, burning with urination, feels like she has the flu Outcome: Advised to GO TO ED NOW. Patient verbalized understanding and is agreeable to the plan with modifications. Patient did not have a ride to the Emergency Room. Stated that she was going to go this afternoon when her got home. Reviewed concerns for waiting that long and re-advised ED NOW. Advised calling a friend, an Uber, or calling 911. Patient said she will head to [place] when she can find a ride. Reason for Disposition [1] Unable to urinate (or only a few drops) > 4 hours AND [2] bladder feels very full (e.g., palpable bladder or strong urge to urinate) Nursing Judgment: - Symptoms: Very weak, Incontinent (frequent), burning with urination, feels like she has the flu, but knows she doesn't, skin feels clammy at times, but not now - Sometimes has full stream it gushes, other times she is not able to get anything out. Now, her bladder feels very full. - Wearing 2 pull ups, usually wears 1. - Concern for UTI. - Patient has had previous UTI's and states that this feels similar [1] Pain or burning with passing urine (urination) AND [2] female Protocols used: Urinary Aarlbbxv-NYCHZ-DM, Urination Pain - Cyjqvy-CKLRN-VV documented in this encounter [facility] 12-11-2023 Miscellaneous Notes Patient has been identified by name and date of : Patient phones for refill(s): Requested Prescriptions Pending Prescriptions Disp Refills promethazine (PHENERGAN) 25 mg tablet 40 tablet 0 Sig: Take 1 tablet by mouth every 6 hours as needed for nausea/vomiting. Date of last office visit in primary care: 08/27/2023 Date of next office visit in primary care: Visit date not found Please advise. Thank you. Kareen Lam. documented in this encounter [facility] 12-02-2023 History of Present illness Narrative [facility] Telephonic Outreach Provider Action/FYI Reports her breathing is at baseline States using her Breo and rescue albuterol inhaler as needed States she is more sob when active Reinforced using rescue prior to activity to determine if provides improved relief States blood sugars are high. BS this am 302 Discussed importance of documenting and communicating BS levels with PCP office Based on results adjustments to insulin can be made to achieve better control/management. States she has an machine. Advised patient to consider sari monitor. She was under the impression you needed a smart phone Advised there is a reader that can be used and can store data if no phone. Patient has appointment with [facility] [employer] [employer] on Friday. Advised to discuss at visit to determine if might work for her. Patient unable to talk further my phone is dying Last AIC 07/2023 7.9 No additional immediate concerns Discuss monitoring B/P next call. Contacted for: Routine Telephonic Outreach Contact made with patient: Yes Patient identified by name and date of . Discussed care with patient Are you experiencing any new or worsening symptoms you need to talk about today? Yes Based on assessment coordinator, the following disposition is advised: No symptoms or symptoms present, not severe. Routed to: No Action Needed PEGGY Education Provided this Outreach: No Herson Ashford RN December 02, 2023 10:20 AM documented in this encounter [facility] 11-25-2023 Miscellaneous Notes Patient has been identified by name and date of : Yes, Provider Ricci Cole MD Date 11/25/2023 Time 12:05 pm Patient phones for refill(s): Requested Prescriptions Pending Prescriptions Disp Refills promethazine (PHENERGAN) 25 mg tablet 40 tablet 0 Sig: Take 1 tablet by mouth every 6 hours as needed for nausea/vomiting. Date of last office visit in primary care: 08/27/2023 Date of next office visit in primary care: 12/01/2023 Please advise. Thank you. Laurel Terrazas. documented in this encounter [facility] 10-29-2023 History of Present illness Narrative [facility] Telephonic Outreach Provider Action/FYI Phone busy signal Contacted for: Routine Telephonic Outreach Contact made with patient: No, unable to leave message. Will reattempt call Herson Ashford RN October 29, 2023 5:11 PM [facility] Telephonic Outreach Provider Action/FYI Patient picks up phone. PCC acknowledged self and [facility] reason for call. Phone disconnected. Re attempted call. Phone rings - no voicemail set up Contacted for: Routine Telephonic Outreach Contact made with patient: No, unable to leave message. Will reattempt call Herson Ashford RN October 29, 2023 12:34 PM documented in this encounter [facility] 10-10-2023 Miscellaneous Notes Breo reordered. Patient has been identified by name and date of : Yes, Patient phones for refill(s): Requested Prescriptions Pending Prescriptions Disp Refills fluticasone-vilanterol (BREO ELLIPTA) 100-25 mcg/dose inhaler 1 Each 5 Sig: Inhale 1 Inhalation as instructed once daily. Date of last office visit in primary care: 08/27/2023 Date of next office visit in primary care: Visit date not found Please advise. Thank you. Jo Ann Gonzalez. documented in this encounter [facility] 09-30-2023 History of Present illness Narrative [facility] Telephonic Outreach Provider Action/FYI Phone rings -picks up indicates no voicemail set up Contacted for: Routine Telephonic Outreach Contact made with patient: No, unable to leave message. Will reattempt call Herson Ashford RN September 30, 2023 3:33 PM [facility] Telephonic Outreach Provider Action/FYI Needs falls/adl update HTN/DM- AIC 7.9 Patient not home at time of call Unclear when she will return. Contacted for: Routine Telephonic Outreach Contact made with patient: Yes Patient identified by name and date of . Discussed care with spouse documented in this encounter [facility] 09-26-2023 Miscellaneous Notes Pharmacy verified in [facility] Patient has been identified by name and date of : Yes Patient aware RX will be sent to pharmacy. No need to notify patient. Patient phones for refill(s): Requested Prescriptions Pending Prescriptions Disp Refills promethazine (PHENERGAN) 25 mg tablet 40 tablet 0 Sig: Take 1 tablet by mouth every 6 hours as needed for nausea/vomiting. Date of last office visit : 08/27/2023 Date of next office visit : Visit date not found Last 2 Encounter Wt Readings: Date: Wt: 08/15/2023 106.6 kg (235 lb) 07/09/2023 102.7 kg (226 lb 6.4 oz) Not applicable Please advise. Joyce Greer documented in this encounter [facility] 09-04-2023 History of Present illness Narrative Radiology Service Progress Note PATIENT NAME: Ivet Valero DATE OF SERVICE: September 04, 2023 TIME: 1:07 PM PATIENT IDENTITY VERIFICATION COMPLETED USING TWO (2) IDENTIFIERS: Name and Date of confirmed by patient verbally. FALL SCREENING: Has the patient had 2 falls in the last year or 1 fall with injury or currently using an Ambulatory Assistive Device (Walker, Cane, Wheelchair, Crutches, etc.)? No PATIENT GENDER DATA: Female. status: : No status: NO. PATIENT RELEVANT IMPLANT DATA REVIEWED: Yes RADIOLOGY DEPARTMENT: General X-ray: Exam(s) Completed: Chest X-Ray PERIPHERAL IV DATA: Not applicable SIGNED BY: RT Mane(R) September 04, 2023 1:07 PM documented in this encounter [facility] 08-08-2023 History of Present illness Narrative TRANSITION CARE MANAGEMENT (TCM) INITIAL CONTACT Energy Scheduler Outreach Provider Action/FYI: Needs a new glucometer and supplies. Please send to [facility] in [place] knows this will not be until Friday. Asking about a nebulizer? She does have her Albuterol inhaler and Breo. Advised that should be using those and nebulizer can be discussed at her hospital follow up visit. Initial contact with patient post discharge, spoke to patient. Patient identified by name and . TRANSITION CARE MANAGEMENT INITIAL OUTREACH DOCUMENTATION: Date of Outreach: 08/08/2023 Outreach Attempt 1: Contact Made Date of Discharge 08/06/2023 Some recent data might be hidden SUMMARY: -Pt discharged from [facility] on 08/06/23. -Admitted for: chills, urinary burning and frequency Do you have a hospital follow up appointment with your PCP? Appointment on 08/15/[address] Cole. Yes. Remind patient of appointment date, time, and location. If not within 14 calendar days of discharge - please reschedule accordingly. MEDICATIONS: Many patients have questions or concerns about their medications once they are home. Were you prescribed any new medications? If yes, what are those medications? Fosfomycin packet Were you told to hold any medications? No Were any of your medications discontinued? No Do you have any questions about getting or taking your medications? No Your discharge instructions/After visit Summary (AVS) are important in guiding you through the recovery process. Is there anything I might help you understand? No Do you have all the necessary equipment and supplies at home? No, follow site specific process to secure durable medical equipment and/or supplies for the patient, handoff to RN/ASSEMBLY MACHINE OFFBEARER, or LIP Medical records from recent hospitalization: Placed for provider to review documented in this encounter [facility] 08-08-2023 Miscellaneous Notes Patient has been identified by name and date of : Yes, Provider Ricci Cole MD Date 08/08/2023 Time 1:30 Patient phones for refill(s): Requested Prescriptions Pending Prescriptions Disp Refills insulin glargine U-300 conc (TOUJEO) 300 unit/mL (1.5 mL) 1 Each 0 Sig: Inject 80 Units subcutaneously every morning. E11.9 Date of last office visit in primary care: 04/15/2023 Date of next office visit in primary care:08/13/2023 Please advise. Thank you. Laurel Terrazas. documented in this encounter [facility] 08-06-2023 Discharge summary Note Date/Time August 06, 2023 1:14pm [facility] Medical Records Department [address] [place] [address] Discharge Summary 08/06/23 1314 MR#: [id number] Acct: [id number] Name: IVET VALERO Rep #:[id number] : 1955 68 From: Sho Yi DO PCP: Dr. Ricci Cole MD Status:ADM I N Location: [place] [address] Providers Date of Admission: 08/04/23 Date of Discharge: 08/06/23 Primary Care Physician: Dr. Ricci Cole MD Reason For Visit: UTI,SUSPECT ESBL Diagnosis Discharge Diagnosis (1) Acute UTI: Status: Acute Code(s): N39.0 - Urinary tract infection, site not specified (2) Nausea: Status: Acute Code(s): R11.0 - Nausea (3) Leukocytosis: Status: Acute Code(s): D72.829 - Elevated white blood cell count, unspecified Medications at Discharge Home Medications insulin lispro 100 unit/mL subcutaneous pen (Humalog KwikPen (U-100) Insulin) See Protocol subcut TID diabetes 01/02/22 quetiapine 300 mg tablet 300 mg PO QHS mood 01/11/22 albuterol sulfate 90 mcg/actuation aerosol inhaler 90 inh inhalation Q4H PRN PRNsob 01/17/22 bupropion HCl 150 mg 24 hr tablet, extended release 150 mg PO DAILY mood 01/17/22 buspirone 10 mg tablet 20 mg PO TID mood 01/17/22 fluticasone furoate 100 mcg-vilanterol 25 mcg/dose inhalation powder (Breo Ellipta) 1 ea inhalation DAILY sob 01/17/22 omeprazole 40 mg capsule,delayed release 40 mg PO DAILY gerd 05/01/22 insulin glargine U-300 conc 300 unit/mL (3 mL) subcutaneous pen (Toujeo Max U-300 SoloStar) 80 unit subcut DAILY diabetes 06/11/22 escitalopram oxalate 20 mg tablet 20 mg PO DAILY 08/04/23 promethazine 25 mg tablet 25 mg PO Q6H PRN nausea 08/04/23 quetiapine 25 mg tablet 25 mg PO TID 08/04/23 fosfomycin tromethamine 3 gram oral packet 1 packet PO X1 1 day #1 ea 08/06/23 Hospital Course Operations None Procedures EKG and - (Chest x-ray) Summary of Care Provided Minutes Spent on Discharge: 37 Hospital Course: Ms. Valero is a 68-year-old white [facility] complaining of chills, urinary burning,and urinary frequency. She evidently had been having a 2 weeks of ongoing urinary symptoms and had been slowly getting work. On presentation she was alsofeeling achy and nauseous. She additionally complained of 2 weeks of increased cough and sputum production with some slight shortness of breath and does have ahistory of COPD at home. She has been compliant with her inhalers. Vital signson presentation were unremarkable other than her blood pressure was elevated 185/90. UA was consistent with infection. Previous urine cultures had been noted and she does have a history of ESBL producing organisms. She was noted tohave allergies to penicillins and sulfa. She was admitted to telemetry floor and started on meropenem after urine cultures were sent. She did not meet sepsis criteria on presentation and was gently hydrated with IV fluids. By day 2 of her hospital course she was feeling improved as her suprapubic pain had decreased in intensity and by the third day of her hospitalization suprapubic pain had resolved. She was still experiencing some headache but has a history of migraines. Urine cultures demonstrated ESBL producing E. coli. This was sensitive to Macrobid and fosfomycin. After literature review it appears the fosfomycin has better penetration and resolution of UTI with ESBL producing organism so we discharged her with 1 more day of fosfomycin. Since she does get chronic recurrent UTIs I have recommended her to follow-up with Dr. Oropeza fromurology for further evaluation with regards to her frequent and recurrent urinary tract infections. Prescription for the fosfomycin was faxed to local pharmacy and was she was instructed to take 1 tablet tomorrow and that would complete treatment. I have asked her to call the urology office tomorrow and set up an appointment to be seen in the next 1 to 2 weeks. She should also follow-up with her primary care physician within the next month. She was discharged home in stable condition on 08/06/2023. Discharge diagnoses: Acute ESBL E. coli UTI Leukocytosis-resolved Nausea-resolved Headache COPD GERD DM-2 Mood disorder NOS Tobacco abuse Physical Exam Const alert, oriented x3, no apparent distress and well nourished; Negative for average body habitus or healthy appearing Constitutional Narrative: Obese, upper middle-aged, white female, lying in bed, room is dark, but mood andgeneral appearance appears much improved General Appearance: cooperative, comfortable, well kempt and well developed Orientation / Consciousness: awake, oriented to person, oriented to place and oriented to time Exam Limitations: no limitations Nutritional Appearance: obese HEENT normocephalic, head/scalp atraumatic, hearing grossly normal bilaterally and moist oral mucous membranes HEENT Narrative: Mallampati 3, no thrush Eyes PERRL, EOMs intact bilaterally and conjunctivae normal Eyes Narrative: No scleral icterus Neck no lymphadenopathy and supple Neck Narrative: Neck is short and thick, trachea midline, no thyroid enlargement Resp normal respiratory effort, no retractions, no use of accessory muscles and clearto auscultation bilaterally Auscultation: Negative for rales, rhonchi or wheezes Cardio regular rate, regular rhythm, S1 normal heart sound, S2 normal heart sound, no murmurs, no rub, no gallops and no clicks GI normal to inspection, nondistended, normoactive bowel sounds, soft to palpation and non-tender GI Narrative: Suprapubic tenderness is resolved Extremity no clubbing, cyanosis or edema Extremity Narrative: Pedal pulses are 2+ Skin no rashes or lesions noted, no wounds, skin turgor normal and no jaundice Neuro oriented x3, moves all extremities and no focal motor deficits Speech: speech normal Psych affect normal Psych Narrative: Very pleasant, eye contact is good Weight / BMI Weight Weight: 104.5 kg Body Mass Index (BMI) 36.1 ABG / Lab / Microbiology Data 08/05/23 05:45 08/05/23 05:45 Laboratory: Laboratory Results - last 24 hr 08/05/23 16:31: POC Glucose 168 H 08/05/23 22:18: POC Glucose 183 H 08/06/23 06:20: POC Glucose 127 H 08/06/23 11:53: POC Glucose 147 H Microbiology: Microbiology 08/04/23 13:15 Urine, Clean Catch Urine Culture - Preliminary ESBL Escherichia coli D/C Instructions Discharge Diet: Low fat / Low cholesterol and 1800 Calorie Control Diet Discharge Activity: Return to Normal Activity Meaningful Use Info Meaningful Use Diagnoses (Choose all that apply): None applicable Discharge Plan Admission Admit Date/Time: 08/04/23 15:06 Primary Reason for Your Visit: Urinary tract infection Attending Provider: Sho Yi Primary Care Provider: Ricci Cole Consulting Providers: Leeanne Barron Discharge Orders/Prescriptions Prescriptions: New fosfomycin tromethamine 3 gram packet 1 packet PO X1 1 Days Qty: 1 0RF Continued quetiapine 300 mg tablet 300 mg PO QHS insulin lispro [Humalog KwikPen Insulin] 100 unit/mL Insulin Pen See Protocol SUBCUT TID Protocol: 1. Sliding Scale Insulin Low Dosing Condition: 150-224 mg/dl = 1 unit Condition: 225-299 mg/dl = 2 units Condition: 300-374 mg/dl = 3 units Condition: 375-499 mg/dl = 4 units Condition: Greater than 449 call physician Protocol Text: - Use for Total Daily Dose of Insulin 15-27 units - Thin, elderly, renal patients LOW DOSING ALGORITHM Rx Instructions: plus sliding scale buspirone 10 mg tablet 20 mg PO TID albuterol sulfate 90 mcg/actuation HFA aerosol inhaler 90 inh INHALATION Q4H PRN PRN (Reason: sob) Patient Comments: TAKE 2 PUFFS BY MOUTH EVERY 4 HOURS NEEDED fluticasone furoate-vilanterol [Breo Ellipta] 100-25 mcg/dose blister with device 1 ea INHALATION DAILY Patient Comments: INHALE 1 INHALATION INSTRUCTED ONCE DAILY. bupropion HCl 150 mg tablet extended release 24 hr 150 mg PO DAILY Patient Comments: TAKE 1 TABLET BY MOUTH EVERY MORNING Toujeo Max U-300 SoloStar 300 unit/mL (3 mL) insulin pen 80 unit subcut DAILY omeprazole 40 mg Capsule,Delayed Release(Dr/Ec) 40 mg PO DAILY escitalopram oxalate 20 mg tablet 20 mg PO DAILY quetiapine 25 mg tablet 25 mg PO TID promethazine 25 mg tablet 25 mg PO Q6H PRN (Reason: nausea) Patient Comments: TAKE 1 TABLET BY MOUTH EVERY 6 HOURS NEEDED FOR NAUSEA AND VOMITING Referrals / Follow Up: Meredith Oropeza MD [Med Staff - Active Staff] - Within 2 Weeks (Frequent UTIs) Ricci Cole MD [Primary Care Provider] - Within 1 Month Disposition Disposition (needs filled in before D/C Order can be placed): Home, Self Care Charges/Coding Visit Charges Inpatient E&M: 05107 Disch Hosp >30min 08/06/23 1326 <Electronically signed by Sho Yi DO> Cosigner Signature (if applicable): CC: Dr. hSo Yi DO; Dr. Ricci Cole MD~ Signed [facility] Work Phone: 1(288) 807-586112-12-2023 Progress note Author Sho Yi [facility] August 05, 2023 5:02pm Note Date/Time August 05, 2023 7:25am [facility] Medical Records Department [address] [place] [address] Progress Note - Hospitalist 08/05/23 0718 MR#: [id number] Acct: [id number] Name: IVET VALERO Rep #:[id number] : 1955 68 From: Sho Yi DO PCP: Dr. Ricci Cole MD Status:ADM I N Location: [place] [address] Reason for Visit Reason for Visit: Chills/Urinary burning/frequency Subjective Subjective Patient is a 68-year-old white female who presented the emergency department [facility] on 08/04/2023 complaining of chills, urinary burning, and urinary frequency. She evidently had been having a 2 weeks of ongoing urinary symptoms and had been slowly getting work. On presentation she was also feelingachy and nauseous. She additionally complained of 2 weeks of increased cough and sputum production with some slight shortness of breath and does have a history of COPD at home. She has been compliant with her inhalers. Vital signson presentation were unremarkable other than her blood pressure was elevated 185/90. UA was consistent with infection. Previous urine cultures had been noted and she does have a history of ESBL producing organisms. She has allergies to penicillins and sulfa. She was admitted to telemetry floor and started on meropenem after urine cultures were sent. She did not meet sepsis criteria on presentation and was gently hydrated with IV fluids. Currently blood and urine cultures are pending. Patient states she has ongoing headache. She states what ever they gave her last night helped for a couple hours. It appears it was morphine. Had I will give her 1 more dose to see if this helps her headache but would like to avoid repeated dosing of narcotics for headache. Her suprapubic pain has improved as has her nausea but she still complains of some mild nausea. Objective Data Objective Data Vital Signs: Vital Signs Temp Pulse Resp BP Pulse Ox O2 Del Method 98.1 F 78 18 133/81 H 95 Room Air 08/05/23 04:19 08/05/23 06:54 08/05/23 06:54 08/05/23 04:43 08/05/23 04:19 08/05/23 04:19 Oxygen Delivery Method Room Air Weight: 104.5 kg Body Mass Index (BMI) 36.1 Intake & Output: Intake and Output for Last 24 Hours 08/03/23 08/04/23 08/05/23 23:59 23:59 23:59 Intake Total 120 / 370 490 / 490 Balance 120 / 370 490 / 490 Lab / Micro Data 08/05/23 05:45 08/05/23 05:45 Labs: Laboratory Results - last 24 hr 08/04/23 13:15: Urine Color Yellow, Urine Clarity Clear, Urine pH 5.0, Ur Specific Malone 1.020, Urine Protein 30 H, Urine Glucose (UA) Normal, Urine Ketones 5 H, Urine Occult Blood 25 H, Urine Nitrite Positive H, Urine Bilirubin Negative, Urine Urobilinogen Normal, Ur Leukocyte Esterase 500 H, Urine RBC 0 SEEN, Urine WBC 10-25 SEEN, Ur Squamous Epith Cells 0-5 SEEN, Urine Bacteria RARE, Urine Mucus 0 SEEN 08/04/23 13:35: WBC 14.0 H, RBC 5.08, Hgb 14.9, Hct 46.8, MCV 92.1, MCH 29.3, MCHC 31.8 L, RDW Std Deviation 45.5 H, RDW Coeff of Jona 13.4, Plt Count 327, MPV8.8, Immature Gran % (Auto) 0.500, Neut % (Auto) 70.3 H, Lymph % (Auto) 22.1, Thomas % (Auto) 5.9, Eos % (Auto) 0.6, Baso % (Auto) 0.6, Absolute Neuts (auto) 9.9 H, Absolute Lymphs (auto) 3.10, Nucleated RBC % 0, Sodium 139, Potassium 3.8, Chloride 106, Carbon Dioxide 24.0, Anion Gap 9, BUN 10, Creatinine 0.78, Estim Creat Clear Calc 53.81, Est GFR (MDRD) Af Amer 95, Est GFR (MDRD) Non-Af 78, BUN/Creatinine Ratio 12.8, Glucose 241 H, Calcium 9.2 08/04/23 18:03: POC Glucose 121 H 08/05/23 01:09: POC Glucose 174 H 08/05/23 05:45: WBC 11.3 H, RBC 4.42, Hgb 13.5, Hct 41.3, MCV 93.4, MCH 30.5, MCHC 32.7, RDW Std Deviation 46.9 H, RDW Coeff of Jona 13.7, Plt Count 273, MPV 8.8, Immature Gran % (Auto) 0.400, Neut % (Auto) 51.7, Lymph % (Auto) 39.3, Thomas% (Auto) 7.0, Eos % (Auto) 1.2, Baso % (Auto) 0.4, Absolute Neuts (auto) 5.8, Absolute Lymphs (auto) 4.42, Nucleated RBC % 0, Sodium 142, Potassium 3.7, Chloride 110 H, Carbon Dioxide 27.0, Anion Gap 5, BUN 12, Creatinine 0.64, EstimCreat Clear Calc 53.81, Est GFR (MDRD) Af Amer 120, Est GFR (MDRD) Non-Af 99, BUN/Creatinine Ratio 18.8, Glucose 130 H, Calcium 8.4 L 08/05/23 06:24: POC Glucose 130 H Radiography Diagnostic Testing: Radiology Impression Chest X-Ray 08/04/23 13:40 IMPRESSION: No acute abnormality is seen. Electronically Signed: Jose Angel Tim MD at 14:04 EST , Physical Exam Const alert, oriented x3, no apparent distress and well nourished; Negative for average body habitus or healthy appearing Constitutional Narrative: Obese, upper middle-aged, white female, lying in bed, room is dark, patient appeals if she is not feeling well but nontoxic HEENT head/scalp atraumatic and moist oral mucous membranes HEENT Narrative: Dentition is poor, Mallampati is 3, no thrush Head and Scalp: normocephalic Resp normal respiratory effort, no retractions, no use of accessory muscles and clearto auscultation bilaterally Auscultation: Negative for rales, rhonchi or wheezes Cardio regular rate, regular rhythm, S1 normal heart sound, S2 normal heart sound, no murmurs, no rub, no gallops and no clicks GI normal to inspection, nondistended, normoactive bowel sounds and soft to palpation GI Narrative: Mild suprapubic tenderness Extremity no clubbing, cyanosis or edema Extremity Narrative: Pedal pulses are 2+ Neuro oriented x3, moves all extremities and no focal motor deficits Speech: speech normal Psych affect normal Psych Narrative: Very pleasant, eye contact is good Assessment & Plan Assessment/Plan (1) Acute UTI: (2) Nausea: (3) Leukocytosis: PLAN: Plan Acute urinary tract infection -UA consistent with infection -Culture obtained in the emergency department currently pending -Blood cultures are pending -Continue meropenem due to history of resistant organisms -Await culture results and narrow antibiotics as able -Will refer to urology with Dr. Oropeza after discharge as it appears she gets frequent UTIs Leukocytosis -Trending down with current antibiotic treatment -Continue to monitor Nausea -Likely related to the above -Should improve with antimicrobials -As needed antiemetics Headache -Patient with history of migraines -Is not on any chronic suppressive therapy -Was given 1 dose of morphine states she got some relief last evening so we willgive 1 more dose -As needed NSAIDs available as well -She states Tylenol is not effective -She indicates that she often gets these when she gets UTIs COPD -Continue home inhalers GERD -Continue home PPI DM-2 -Continue basal insulin at 80 units daily -SSI -Echo is ordered -Carb controlled diet Mood disorder NOS -Continue home Seroquel -Continue home Lexapro and Continue home BuSpar -Continue home Wellbutrin Tobacco abuse -Continue cessation -Nicotine replacement therapy ordered DVT prophylax -Subcu Lovenox CODE STATUS -DNR CCA okay for short-term intubation Charges/Coding Visit Charges Inpatient E&M: 17160 Subs Hosp L2 08/05/23 1702 <Electronically signed by Sho Yi DO> Cosigner Signature (if applicable): CC: ~ Signed [facility] Work Phone: 1(322) 753-503912-11-2023 Discharge summary Author Audie Aaron [facility] August 04, 2023 4:37pm Note Date/Time August 04, 2023 1:08pm [facility] Medical Records Department [address] [place] [address] Emergency Department Summary 08/04/23 MR#: [id number] Acct: [id number] Name: IVET VALERO Rep #:[id number] : 1955 68 From: Audie Velazquez PCP: Dr. Ricci Cole MD Status:REG E R Location: ED HPI <MARY Henley - Last Filed: 08/04/23 15:41> History of Present Illness Chief Complaint: Complaint Narrative Narrative: 68-year-old female with past medical history of DM2, COPD presents with 2 weeks of urinary frequency and urgency that is getting worse. She states now she feels achy and nauseous. She has also had 2 weeks of increased cough and sputumproduction and feels slightly short of breath. She uses albuterol and Breo for her COPD. She does not wear home oxygen. Denies chest pain. Denies fever or chills. [facility] <MARY Henley - Last Filed: 08/04/23 15:41> [facility] Medical History (Updated 08/04/23 @ 15:[address] Leeanne Barron MD) Anxiety Anxiety and depression Arthritis Cardiology follow-up encounter Chronic bronchitis Chronic UTI COPD (chronic obstructive pulmonary disease) Depression Diabetes Diabetes type 2, controlled Diarrhea Essential (primary) hypertension Frequent headaches Gastric reflux Gastritis Gastroparesis GERD (gastroesophageal reflux disease) GI problem High cholesterol History of steroid therapy History of stress test Hypertension Injury of head and neck Insulin dependent diabetes mellitus Leukocytosis Migraine headache Panic disorder with agoraphobia Post-menopausal Seasonal allergies Secondary polycythemia Smoker Smoker Type 2 diabetes mellitus without complications Urinary incontinence Urinary tract infection UTI due to extended-spectrum beta lactamase (ESBL) producing Escherichia coli Vision problem Wears dentures Wears glasses Home Medications insulin lispro 100 unit/mL subcutaneous pen (Humalog KwikPen (U-100) Insulin) See Protocol subcut TID diabetes 01/02/22 [History Last Taken 08/03/23] quetiapine 300 mg tablet 300 mg PO QHS mood 01/11/22 [History Last Taken 08/03/23] albuterol sulfate 90 mcg/actuation aerosol inhaler 90 inh inhalation Q4H PRN PRNsob 01/17/22 [History Last Taken 01/17/22] bupropion HCl 150 mg 24 hr tablet, extended release 150 mg PO DAILY mood 01/17/22 [History Last Taken 08/04/23] buspirone 10 mg tablet 20 mg PO TID mood 01/17/22 [History Last Taken 08/03/23] fluticasone furoate 100 mcg-vilanterol 25 mcg/dose inhalation powder (Breo Ellipta) 1 ea inhalation DAILY sob 01/17/22 [History Last Taken 08/04/23] omeprazole 40 mg capsule,delayed release 40 mg PO DAILY gerd 05/01/22 [History Last Taken 08/04/23] insulin glargine U-300 conc 300 unit/mL (3 mL) subcutaneous pen (Toujeo Max U- 300 SoloStar) 80 unit subcut DAILY diabetes 06/11/22 [History Last Taken 08/03/23] escitalopram oxalate 20 mg tablet 20 mg PO DAILY 08/04/23 [History Last Taken 08/04/23] quetiapine 25 mg tablet 25 mg PO TID 08/04/23 [History Last Taken 08/04/23] Allergy/AdvReac Type Severity Reaction Status Date / Time Penicillins Allergy Hives Verified 08/04/23 12:52 Sulfa (Sulfonamide Allergy Hives Verified 08/04/23 12:52 Antibiotics) varenicline [From Chantix] Allergy Other Verified 08/04/23 12:52 Family History Brother Diabetes Hypertension Surgical History (Updated 06/11/22 @ 08:40 by Estephanie Lira) bladder sling H/O tubal ligation History of appendectomy History of cardiac catheterization Hx of cholecystectomy S/P complete hysterectomy S/P ORIF (open reduction internal fixation) fracture Social History Smoking Status: Current every day smoker tobacco type: cigarettes second hand exposure: Yes alcohol intake: never substance use type: does not use ROS <MARY Henley - Last Filed: 08/04/23 15:41> ROS ED ROS Narrative Constitutional: Negative for fever, chills, malaise. CVS: Negative for palpitations, chest pain, syncope. Respiratory: Positive for shortness of breath, cough. GI: Positive for nausea. Negative for vomiting. : Positive for dysuria, frequency. Negative for hematuria. EXAM <MARY Henley - Last Filed: 08/04/23 15:41> Physical Exam Narrative Exam Narrative: CONST: Patient sitting in no acute distress. EYES: Normal inspection. NECK: Normal inspection. RESP: No respiratory distress, CTAB. CVS: Regular rate and rhythm, no murmur, no gallop. ABD: Soft with suprapubic tenderness, no guarding or rebound, nondistended, no hepatosplenomegaly. Back: Normal inspection, no CVA tenderness. SKIN: Color normal, no rash, warm, dry, intact. EXTREMITIES: Normal appearance, no pedal edema. NEURO: Oriented x4. PSYCH: Normal affect. Const Vital Signs: 08/04/23 12:53 08/04/23 14:50 Temperature 97.5 F L 98.1 F Temperature Source Temporal Oral Pulse Rate 113 H 89 Respiratory Rate 20 H 17 Blood Pressure 185/90 H 156/79 H Blood Pressure Mean 121 104 Pulse Ox 98 93 Oxygen Delivery Method Room Air Room Air <Dr. Audie Walker, - Last Filed: 08/04/23 15:35> Physical Exam Const Vital Signs: 08/04/23 12:53 08/04/23 14:50 Temperature 97.5 F L 98.1 F Temperature Source Temporal Oral Pulse Rate 113 H 89 Respiratory Rate 20 H 17 Blood Pressure 185/90 H 156/79 H Blood Pressure Mean 121 104 Pulse Ox 98 93 Oxygen Delivery Method Room Air Room Air MDM <MARY Henley - Last Filed: 08/04/23 15:41> MDM MDM Narrative Medical decision making narrative: Patient has had 2 weeks of increased cough and sputum production with history ofCOPD and also 2 weeks of urinary urgency and frequency. She appears well and nontoxic. Heart rate 113 with otherwise normal vital signs. During my examination he is tachycardic with rhythm and lungs are clear. She has localized suprapubic tenderness but no peritoneal signs. No flank tenderness. CXR is negative. She probably has a viral illness causing her cough but is not wheezing or in any respiratory distress so I do not think steroids are indicated. Labs show WBC of 14.0 and BMP is normal except for glucose of 241 consistent with her diabetes. UA is nitrite positive with 10- 25 WBCs and rare bacteria. Culture sent. Past urine cultures grew ESBL E. coli. In the past she has failed outpatient treatment, she is allergic to penicillins and sulfa sotreatment options are more limited. Since she does not feel well and heart rateis still around 100 I feel she needs admitted for IV antibiotics. In the past she was treated with IV cefepime and had no improvement so ID switched to meropenem so I ordered a dose of meropenem. Case will be discussed with the hospitalist for admission. External records reviewed: Most recent urine culture 11/14/2022 is ESBL E. coli Lab Data Attestation: I reviewed the patient's lab results. Labs: Laboratory Results - last 24 hr 08/04/23 08/04/23 13:15 13:35 WBC 14.0 H RBC 5.08 Hgb 14.9 Hct 46.8 MCV 92.1 MCH 29.3 MCHC 31.8 L RDW Std Deviation 45.5 H RDW Coeff of Jona 13.4 Plt Count 327 MPV 8.8 Immature Gran % (Auto) 0.500 Neut % (Auto) 70.3 H Lymph % (Auto) 22.1 Thomas % (Auto) 5.9 Eos % (Auto) 0.6 Baso % (Auto) 0.6 Absolute Neuts (auto) 9.9 H Absolute Lymphs (auto) 3.10 Nucleated RBC % 0 Sodium 139 Potassium 3.8 Chloride 106 Carbon Dioxide 24.0 Anion Gap 9 BUN 10 Creatinine 0.78 Estim Creat Clear Calc 53.81 Est GFR (MDRD) Af Amer 95 Est GFR (MDRD) Non-Af 78 BUN/Creatinine Ratio 12.8 Glucose 241 H Calcium 9.2 Urine Color Yellow Urine Clarity Clear Urine pH 5.0 Ur Specific Malone 1.020 Urine Protein 30 H Urine Glucose (UA) Normal Urine Ketones 5 H Urine Occult Blood 25 H Urine Nitrite Positive H Urine Bilirubin Negative Urine Urobilinogen Normal Ur Leukocyte Esterase 500 H Urine RBC 0 SEEN Urine WBC 10-25 SEEN Ur Squamous Epith Cells 0-5 SEEN Urine Bacteria RARE Urine Mucus 0 SEEN Radiography Diagnostic Testing: Clinical Impression(s) from Imaging Studies Chest X-Ray 08/04/23 13:40 IMPRESSION: No acute abnormality is seen. Electronically Signed: Jose Angel Tim MD at 14:04 EST , <Dr. Audie Walker, DO - Last Filed: 08/04/23 15:35> [facility] Narrative Medical decision making narrative: Patient has had 2 weeks of increased cough and sputum production with history ofCOPD and also 2 weeks of urinary urgency and frequency. She appears well and nontoxic. Heart rate 113 with otherwise normal vital signs. During my examination he is tachycardic with rhythm and lungs are clear. She has localized suprapubic tenderness but no peritoneal signs. No flank tenderness. CXR is negative. She probably has a viral illness causing her cough but is not wheezing or in any respiratory distress so I do not think steroids are indicated. Labs show WBC of 14.0 and BMP is normal except for glucose of 241 consistent with her diabetes. UA is nitrite positive with 10- 25 WBCs and rare bacteria. Culture sent. Past urine cultures grew ESBL E. coli. In the past she has failed outpatient treatment, she is allergic to penicillins and sulfa sotreatment options are more limited. Since she does not feel well and heart rateis still around 100 I feel she needs admitted for IV antibiotics. In the past she was treated with IV cefepime and had no improvement so ID switched to meropenem so I ordered a dose of meropenem. Case will be discussed with the hospitalist for admission. External records reviewed: Most recent urine culture 11/14/2022 is ESBL E. coli I have personally performed a face to face assessment of the patient and have reviewed the KAR Note. I performed a substantive portion of the visit including all aspects of the following. My moreno findings include: History is patient presenting to the emergency room with concern for urinary tract infection. She has had to have midline with IV antibiotics recently due to ESBL E. coli. Patient notes dysuria. Noted to be tachycardic. She also notes cough and is concerned about possible pneumonia. Exam is tachycardic. Afebrile. Patient has no hypoperfusion. Medical Decison Making White count is 18. Urine 25 white cells rare bacteria this will be sent for culture. Patient given a dose ertapenem. Will speak withher regarding possible admission. Lab Data Labs: Laboratory Results - last 24 hr 08/04/23 08/04/23 13:15 13:35 WBC 14.0 H RBC 5.08 Hgb 14.9 Hct 46.8 MCV 92.1 MCH 29.3 MCHC 31.8 L RDW Std Deviation 45.5 H RDW Coeff of Jona 13.4 Plt Count 327 MPV 8.8 Immature Gran % (Auto) 0.500 Neut % (Auto) 70.3 H Lymph % (Auto) 22.1 Thomas % (Auto) 5.9 Eos % (Auto) 0.6 Baso % (Auto) 0.6 Absolute Neuts (auto) 9.9 H Absolute Lymphs (auto) 3.10 Nucleated RBC % 0 Sodium 139 Potassium 3.8 Chloride 106 Carbon Dioxide 24.0 Anion Gap 9 BUN 10 Creatinine 0.78 Estim Creat Clear Calc 53.81 Est GFR (MDRD) Af Amer 95 Est GFR (MDRD) Non-Af 78 BUN/Creatinine Ratio 12.8 Glucose 241 H Calcium 9.2 Urine Color Yellow Urine Clarity Clear Urine pH 5.0 Ur Specific Malone 1.020 Urine Protein 30 H Urine Glucose (UA) Normal Urine Ketones 5 H Urine Occult Blood 25 H Urine Nitrite Positive H Urine Bilirubin Negative Urine Urobilinogen Normal Ur Leukocyte Esterase 500 H Urine RBC 0 SEEN Urine WBC 10-25 SEEN Ur Squamous Epith Cells 0-5 SEEN Urine Bacteria RARE Urine Mucus 0 SEEN Radiography Diagnostic Testing: Clinical Impression(s) from Imaging Studies Chest X-Ray 08/04/23 13:40 IMPRESSION: No acute abnormality is seen. Electronically Signed: Jose Angel Tim MD at 14:04 EST , Discharge Plan Triage Chief Complaint: Complaint ED Midlevel Provider: Marylu Gillespie ED Provider: Audie Walker Dx/Rx/DC Orders Clinical Impression: Sepsis, Acute UTI Prescriptions: No Action quetiapine 300 mg tablet 300 mg PO QHS insulin lispro [Humalog KwikPen Insulin] 100 unit/mL Insulin Pen See Protocol SUBCUT TID Protocol: 1. Sliding Scale Insulin Low Dosing Condition: 150-224 mg/dl = 1 unit Condition: 225-299 mg/dl = 2 units Condition: 300-374 mg/dl = 3 units Condition: 375-499 mg/dl = 4 units Condition: Greater than 449 call physician Protocol Text: - Use for Total Daily Dose of Insulin 15-27 units - Thin, elderly, renal patients LOW DOSING ALGORITHM Rx Instructions: plus sliding scale buspirone 10 mg tablet 20 mg PO TID albuterol sulfate 90 mcg/actuation HFA aerosol inhaler 90 inh INHALATION Q4H PRN PRN (Reason: sob) Patient Comments: TAKE 2 PUFFS BY MOUTH EVERY 4 HOURS NEEDED fluticasone furoate-vilanterol [Breo Ellipta] 100-25 mcg/dose blister with device 1 ea INHALATION DAILY Patient Comments: INHALE 1 INHALATION INSTRUCTED ONCE DAILY. bupropion HCl 150 mg tablet extended release 24 hr 150 mg PO DAILY Patient Comments: TAKE 1 TABLET BY MOUTH EVERY MORNING Toujeo Max U-300 SoloStar 300 unit/mL (3 mL) insulin pen 80 unit subcut DAILY omeprazole 40 mg Capsule,Delayed Release(Dr/Ec) 40 mg PO DAILY escitalopram oxalate 20 mg tablet 20 mg PO DAILY quetiapine 25 mg tablet 25 mg PO TID Primary Care Provider: Ricci Cole Referrals: Ricci Cole MD [Primary Care Provider] - What to do if you have Problems For any increased pain, shortness of breath, bleeding, nausea or vomiting, chestpain, or any unexpected problems, contact your Primary Care Provider. Call [facility] ([phone]) or report to the closest Emergency Room. Call 911 if necessary. 08/04/23 1637 <Electronically signed by Audie Walker DO> Cosigner Signature (if applicable): 08/04/23 1541 <Electronically signed by Marylu Gillespie PA> CC: Dr. Ricci Cole MD ~ Signed [facility] Work Phone: 1(995) 561-485712-11-2023 History and physical note Author Leeanne Barron [facility] August 04, 2023 3:20pm Note Date/Time August 04, 2023 3:09pm [facility] Medical Records Department [address] [place] [address] H&P Exam - Hospitalist 08/04/23 1506 MR#: [id number] Acct: [id number] Name: IVET VALERO Rep #:[id number] 1 : 1955 68 From: Leeanne Barron MD PCP: Dr. Ricci Cole MD Status:REG E R Location: ED HPI - General General Date of Admission: 08/04/23 Date of Service: 08/04/23 Chief Complaint: Chills, urinary burning and frequency HPI Narrative IVET VALERO, is a 68-year-old female history of COPD, GERD, hypertension, type 2 diabetes mellitus who presented to [facility] 08/04/2023 with 2 weeks of urinary frequency and urgency that has been getting worse and now she is feeling achy and nauseous. Additionally complained of 2 weeks of increasing cough and sputum production with some slight shortness of breath and does have history of COPD on home inhalers. In the ED patient initially with temp 97.5 and heart rate 113, BP 185/90, respiratory rate 20 with pulse ox 98% on room air. UA reports rare bacteria however patient with leuk esterase, whiteblood cells, occult blood and nitrate positive and has elevated white blood cellcount of 14. Given her multiple allergies to antibiotics as well as history of ESBL with limited treatment options hospitalist contacted for admission for IV antibiotics. Patient seen at bedside and reports that for 2 weeks she has been having some lower abdominal discomfort, urinary frequency, urinary burning and more recently has been getting migraines and has been having body aches. Also feels like it has been harder to breathe recently and had a cough that was lightgreen and now is somewhat thick and clear for the past 2 to 3 days. Also reports some sinus drainage and that she alternates between feeling cold and hotbut does not have known recorded temperature. Denies changes in bowels, denies any swelling, no chest pain, no other acute complaints at this time. [facility] Medical History (Updated 08/04/23 @ 15:[address] Leeanne Barron MD) Anxiety Anxiety and depression Arthritis Cardiology follow-up encounter Chronic bronchitis Chronic UTI COPD (chronic obstructive pulmonary disease) Depression Diabetes Diabetes type 2, controlled Diarrhea Essential (primary) hypertension Frequent headaches Gastric reflux Gastritis Gastroparesis GERD (gastroesophageal reflux disease) GI problem High cholesterol History of steroid therapy History of stress test Hypertension Injury of head and neck Insulin dependent diabetes mellitus Leukocytosis Migraine headache Panic disorder with agoraphobia Post-menopausal Seasonal allergies Secondary polycythemia Smoker Smoker Type 2 diabetes mellitus without complications Urinary incontinence Urinary tract infection UTI due to extended-spectrum beta lactamase (ESBL) producing Escherichia coli Vision problem Wears dentures Wears glasses Home Medications insulin lispro 100 unit/mL subcutaneous pen (Humalog KwikPen (U-100) Insulin) See Protocol subcut TID diabetes 01/02/22 [History Last Taken 08/03/23] quetiapine 300 mg tablet 300 mg PO QHS mood 01/11/22 [History Last Taken 08/03/23] albuterol sulfate 90 mcg/actuation aerosol inhaler 90 inh inhalation Q4H PRN PRNsob 01/17/22 [History Last Taken 01/17/22] bupropion HCl 150 mg 24 hr tablet, extended release 150 mg PO DAILY mood 01/17/22 [History Last Taken 08/04/23] buspirone 10 mg tablet 20 mg PO TID mood 01/17/22 [History Last Taken 08/03/23] fluticasone furoate 100 mcg-vilanterol 25 mcg/dose inhalation powder (Breo Ellipta) 1 ea inhalation DAILY sob 01/17/22 [History Last Taken 08/04/23] omeprazole 40 mg capsule,delayed release 40 mg PO DAILY gerd 05/01/22 [History Last Taken 08/04/23] insulin glargine U-300 conc 300 unit/mL (3 mL) subcutaneous pen (Toujeo Max U- 300 SoloStar) 80 unit subcut DAILY diabetes 06/11/22 [History Last Taken 08/03/23] escitalopram oxalate 20 mg tablet 20 mg PO DAILY 08/04/23 [History Last Taken 08/04/23] quetiapine 25 mg tablet 25 mg PO TID 08/04/23 [History Last Taken 08/04/23] Allergy/AdvReac Type Severity Reaction Status Date / Time Penicillins Allergy Hives Verified 08/04/23 12:52 Sulfa (Sulfonamide Allergy Hives Verified 08/04/23 12:52 Antibiotics) varenicline [From Chantix] Allergy Other Verified 08/04/23 12:52 Family History Brother Diabetes Hypertension Surgical History (Updated 06/11/22 @ 08:40 by Estephanie Lira) bladder sling H/O tubal ligation History of appendectomy History of cardiac catheterization Hx of cholecystectomy S/P complete hysterectomy S/P ORIF (open reduction internal fixation) fracture Social History Smoking Status: Current every day smoker tobacco type: cigarettes second hand exposure: Yes alcohol intake: never substance use type: does not use ROS ROS Narrative General: Alternates between hot and cold HENT: Denies headache, little bit of sinus drainage, denies sore throat EYES: Chronic vision changes Resp: Does feels a little bit harder to take breaths, has cough with some thick and clear mucus Cardiac: Denies chest pain GI: Some lower abdominal pressure/pain, denies changes in bowel, denies nausea/vomiting : Frequency, urgency, dysuria Extremity: Denies swelling MSK: Feels achy all over Neuro: Denies any numbness/tingling Heme: Denies any bleeding or bruising Skin: Denies rashes Psychiatric: No complaints voiced Vital Signs Vital Signs Vital Signs: 08/04/23 12:53 08/04/23 14:50 Temperature 97.5 F L 98.1 F Temperature Source Temporal Oral Pulse Rate 113 H 89 Respiratory Rate 20 H 17 Blood Pressure 185/90 H 156/79 H Blood Pressure Mean 121 104 Pulse Ox 98 93 Oxygen Delivery Method Room Air Room Air Weight Weight: 104.5 kg Body Mass Index (BMI) 36.1 Physical Exam Narrative General: Alert, oriented, no apparent distress HEENT: Atraumatic, normocephalic Eyes: Anicteric, normal conjunctiva, extraocular movements grossly intact Neck: Supple Respiratory: Clear to auscultation bilaterally, normal respiratory effort Cardiovascular: Regular rate and rhythm GI: Soft, nondistended, slight tenderness suprapubically without rebound, guarding, rigidity Extremities: No edema Musculoskeletal: Moving all extremities Neuro: No overt focal neurological deficits Skin: No rashes appreciated Psych: Cooperative Results Lab / Micro Data 08/04/23 13:35 08/04/23 13:35 Labs: Laboratory Results - last 24 hr 08/04/23 13:15: Urine Color Yellow, Urine Clarity Clear, Urine pH 5.0, Ur Specific Malone 1.020, Urine Protein 30 H, Urine Glucose (UA) Normal, Urine Ketones 5 H, Urine Occult Blood 25 H, Urine Nitrite Positive H, Urine Bilirubin Negative, Urine Urobilinogen Normal, Ur Leukocyte Esterase 500 H, Urine RBC 0 SEEN, Urine WBC 10-25 SEEN, Ur Squamous Epith Cells 0-5 SEEN, Urine Bacteria RARE, Urine Mucus 0 SEEN 08/04/23 13:35: WBC 14.0 H, RBC 5.08, Hgb 14.9, Hct 46.8, MCV 92.1, MCH 29.3, MCHC 31.8 L, RDW Std Deviation 45.5 H, RDW Coeff of Jona 13.4, Plt Count 327, MPV8.8, Immature Gran % (Auto) 0.500, Neut % (Auto) 70.3 H, Lymph % (Auto) 22.1, Thomas % (Auto) 5.9, Eos % (Auto) 0.6, Baso % (Auto) 0.6, Absolute Neuts (auto) 9.9 H, Absolute Lymphs (auto) 3.10, Nucleated RBC % 0, Sodium 139, Potassium 3.8, Chloride 106, Carbon Dioxide 24.0, Anion Gap 9, BUN 10, Creatinine 0.78, Estim Creat Clear Calc 53.81, Est GFR (MDRD) Af Amer 95, Est GFR (MDRD) Non-Af 78, BUN/Creatinine Ratio 12.8, Glucose 241 H, Calcium 9.2 Imagaing Radiology Impression Chest X-Ray 08/04/23 13:40 IMPRESSION: No acute abnormality is seen. Electronically Signed: Jose Angel Tim MD at 14:04 EST , Assessment & Plan Assessment/Plan (1) Acute UTI: (2) COPD (chronic obstructive pulmonary disease): (3) Fibromyalgia: (4) Tobacco abuse: (5) Anxiety and depression: (6) Diabetes: QUALIFIERS: Diabetes mellitus type: type 2 Diabetes mellitus mcfp insulin use: with fruit packer use Diabetes mellitus complication status: with hyperglycemia Qualified Code(s): E11.65 - Type 2 diabetes mellitus with hyperglycemia; Z79.4 - half-way (current) use of insulin (7) GERD (gastroesophageal reflux disease): (8) Hypertension: PLAN: Plan #Acute UTI -History of ESBL, admitted for IV abx -Has been successfully treated with Merrem in the past -Received one-time dose in ED, continue meropenem -Await urine culture -Has white blood cell count of 14 and has been feeling chills at home with generalized aches and was somewhat tachycardic on presentation, will obtain blood cultures -Will hydrate with IV fluids, patient does not appear septic and does not meet sepsis criteria so do not need 30 cc/kg #COPD -Chest x-ray unremarkable, vitally stable -Has used rescue inhaler over the past 2 to 3 days and has had some increased cough and feels it has been a little bit harder to breathe -Continue home inhaled steroid and will add nebs #HTN -Continue home medications #Mood d/o NOS -Continue home medications #GERD -Continue PPI #Type 2 diabetes mellitus -Glucose checks and sliding scale insulin -Continue long-acting insulin #Tobacco use -Advise cessation -Patient agreeable to nicotine replacement #DVT ppx: Lovenox subcu Leeanne Barron MD Time spent in the patient's overall evaluation,decision-making process, review of diagnostic data, adjustment of management, discussion with other providers, nursing nursing and ancillary staff involved in patient's care documentation, 55Minutes Charges/Coding Visit Charges Inpatient E&M: 40737 Init Hosp L2 08/04/23 1520 <Electronically signed by Leeanne Barron MD> Cosigner Signature (if applicable): CC: Dr. Leeanne Barron MD; Dr. Ricci Cole MD~ Signed [facility] Work Phone: 1(241) 623-591912-11-2023 History and physical note Author Leeanne Barron [facility] August 04, 2023 3:20pm Note Date/Time August 04, 2023 3:09pm [facility] Medical Records Department [facility] [place] [address] H&P Exam - Hospitalist 08/04/23 1506 MR#: [id number] Acct: [id number] Name: IVET VALERO Rep #:[id number] 1 : 1955 68 From: Leeanne Barron MD PCP: Dr. Ricci Cole MD Status:REG E R Location: ED HPI - General General Date of Admission: 08/04/23 Date of Service: 08/04/23 Chief Complaint: Chills, urinary burning and frequency HPI Narrative IVET VALERO, is a 68-year-old female history of COPD, GERD, hypertension, type 2 diabetes mellitus who presented to [facility] 08/04/2023 with 2 weeks of urinary frequency and urgency that has been getting worse and now she is feeling achy and nauseous. Additionally complained of 2 weeks of increasing cough and sputum production with some slight shortness of breath and does have history of COPD on home inhalers. In the ED patient initially with temp 97.5 and heart rate 113, BP 185/90, respiratory rate 20 with pulse ox 98% on room air. UA reports rare bacteria however patient with leuk esterase, whiteblood cells, occult blood and nitrate positive and has elevated white blood cellcount of 14. Given her multiple allergies to antibiotics as well as history of ESBL with limited treatment options hospitalist contacted for admission for IV antibiotics. Patient seen at bedside and reports that for 2 weeks she has been having some lower abdominal discomfort, urinary frequency, urinary burning and more recently has been getting migraines and has been having body aches. Also feels like it has been harder to breathe recently and had a cough that was lightgreen and now is somewhat thick and clear for the past 2 to 3 days. Also reports some sinus drainage and that she alternates between feeling cold and hotbut does not have known recorded temperature. Denies changes in bowels, denies any swelling, no chest pain, no other acute complaints at this time. [facility] Medical History (Updated 08/04/23 @ 15:[address] Leeanne Barron MD) Anxiety Anxiety and depression Arthritis Cardiology follow-up encounter Chronic bronchitis Chronic UTI COPD (chronic obstructive pulmonary disease) Depression Diabetes Diabetes type 2, controlled Diarrhea Essential (primary) hypertension Frequent headaches Gastric reflux Gastritis Gastroparesis GERD (gastroesophageal reflux disease) GI problem High cholesterol History of steroid therapy History of stress test Hypertension Injury of head and neck Insulin dependent diabetes mellitus Leukocytosis Migraine headache Panic disorder with agoraphobia Post-menopausal Seasonal allergies Secondary polycythemia Smoker Smoker Type 2 diabetes mellitus without complications Urinary incontinence Urinary tract infection UTI due to extended-spectrum beta lactamase (ESBL) producing Escherichia coli Vision problem Wears dentures Wears glasses Home Medications insulin lispro 100 unit/mL subcutaneous pen (Humalog KwikPen (U-100) Insulin) See Protocol subcut TID diabetes 01/02/22 [History Last Taken 08/03/23] quetiapine 300 mg tablet 300 mg PO QHS mood 01/11/22 [History Last Taken 08/03/23] albuterol sulfate 90 mcg/actuation aerosol inhaler 90 inh inhalation Q4H PRN PRNsob 01/17/22 [History Last Taken 01/17/22] bupropion HCl 150 mg 24 hr tablet, extended release 150 mg PO DAILY mood 01/17/22 [History Last Taken 08/04/23] buspirone 10 mg tablet 20 mg PO TID mood 01/17/22 [History Last Taken 08/03/23] fluticasone furoate 100 mcg-vilanterol 25 mcg/dose inhalation powder (Breo Ellipta) 1 ea inhalation DAILY sob 01/17/22 [History Last Taken 08/04/23] omeprazole 40 mg capsule,delayed release 40 mg PO DAILY gerd 05/01/22 [History Last Taken 08/04/23] insulin glargine U-300 conc 300 unit/mL (3 mL) subcutaneous pen (Toujeo Max U- 300 SoloStar) 80 unit subcut DAILY diabetes 06/11/22 [History Last Taken 08/03/23] escitalopram oxalate 20 mg tablet 20 mg PO DAILY 08/04/23 [History Last Taken 08/04/23] quetiapine 25 mg tablet 25 mg PO TID 08/04/23 [History Last Taken 08/04/23] Allergy/AdvReac Type Severity Reaction Status Date / Time Penicillins Allergy Hives Verified 08/04/23 12:52 Sulfa (Sulfonamide Allergy Hives Verified 08/04/23 12:52 Antibiotics) varenicline [From Chantix] Allergy Other Verified 08/04/23 12:52 Family History Brother Diabetes Hypertension Surgical History (Updated 06/11/22 @ 08:40 by Estephanie Lira) bladder sling H/O tubal ligation History of appendectomy History of cardiac catheterization Hx of cholecystectomy S/P complete hysterectomy S/P ORIF (open reduction internal fixation) fracture Social History Smoking Status: Current every day smoker tobacco type: cigarettes second hand exposure: Yes alcohol intake: never substance use type: does not use ROS ROS Narrative General: Alternates between hot and cold HENT: Denies headache, little bit of sinus drainage, denies sore throat EYES: Chronic vision changes Resp: Does feels a little bit harder to take breaths, has cough with some thick and clear mucus Cardiac: Denies chest pain GI: Some lower abdominal pressure/pain, denies changes in bowel, denies nausea/vomiting : Frequency, urgency, dysuria Extremity: Denies swelling MSK: Feels achy all over Neuro: Denies any numbness/tingling Heme: Denies any bleeding or bruising Skin: Denies rashes Psychiatric: No complaints voiced Vital Signs Vital Signs Vital Signs: 08/04/23 12:53 08/04/23 14:50 Temperature 97.5 F L 98.1 F Temperature Source Temporal Oral Pulse Rate 113 H 89 Respiratory Rate 20 H 17 Blood Pressure 185/90 H 156/79 H Blood Pressure Mean 121 104 Pulse Ox 98 93 Oxygen Delivery Method Room Air Room Air Weight Weight: 104.5 kg Body Mass Index (BMI) 36.1 Physical Exam Narrative General: Alert, oriented, no apparent distress HEENT: Atraumatic, normocephalic Eyes: Anicteric, normal conjunctiva, extraocular movements grossly intact Neck: Supple Respiratory: Clear to auscultation bilaterally, normal respiratory effort Cardiovascular: Regular rate and rhythm GI: Soft, nondistended, slight tenderness suprapubically without rebound, guarding, rigidity Extremities: No edema Musculoskeletal: Moving all extremities Neuro: No overt focal neurological deficits Skin: No rashes appreciated Psych: Cooperative Results Lab / Micro Data 08/04/23 13:35 08/04/23 13:35 Labs: Laboratory Results - last 24 hr 08/04/23 13:15: Urine Color Yellow, Urine Clarity Clear, Urine pH 5.0, Ur Specific Malone 1.020, Urine Protein 30 H, Urine Glucose (UA) Normal, Urine Ketones 5 H, Urine Occult Blood 25 H, Urine Nitrite Positive H, Urine Bilirubin Negative, Urine Urobilinogen Normal, Ur Leukocyte Esterase 500 H, Urine RBC 0 SEEN, Urine WBC 10-25 SEEN, Ur Squamous Epith Cells 0-5 SEEN, Urine Bacteria RARE, Urine Mucus 0 SEEN 08/04/23 13:35: WBC 14.0 H, RBC 5.08, Hgb 14.9, Hct 46.8, MCV 92.1, MCH 29.3, MCHC 31.8 L, RDW Std Deviation 45.5 H, RDW Coeff of Jona 13.4, Plt Count 327, MPV8.8, Immature Gran % (Auto) 0.500, Neut % (Auto) 70.3 H, Lymph % (Auto) 22.1, Thomas % (Auto) 5.9, Eos % (Auto) 0.6, Baso % (Auto) 0.6, Absolute Neuts (auto) 9.9 H, Absolute Lymphs (auto) 3.10, Nucleated RBC % 0, Sodium 139, Potassium 3.8, Chloride 106, Carbon Dioxide 24.0, Anion Gap 9, BUN 10, Creatinine 0.78, Estim Creat Clear Calc 53.81, Est GFR (MDRD) Af Amer 95, Est GFR (MDRD) Non-Af 78, BUN/Creatinine Ratio 12.8, Glucose 241 H, Calcium 9.2 Imagaing Radiology Impression Chest X-Ray 08/04/23 13:40 IMPRESSION: No acute abnormality is seen. 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 (7) GERD (gastroesophageal reflux disease): (8) Hypertension: PLAN: Plan #Acute UTI -History of ESBL, admitted for IV abx -Has been successfully treated with Merrem in the past -Received one-time dose in ED, continue meropenem -Await urine culture -Has white blood cell count of 14 and has been feeling chills at home with generalized aches and was somewhat tachycardic on presentation, will obtain blood cultures -Will hydrate with IV fluids, patient does not appear septic and does not meet sepsis criteria so do not need 30 cc/kg #COPD -Chest x-ray unremarkable, vitally stable -Has used rescue inhaler over the past 2 to 3 days and has had some increased cough and feels it has been a little bit harder to breathe -Continue home inhaled steroid and will add nebs #HTN -Continue home medications #Mood d/o NOS -Continue home medications #GERD -Continue PPI #Type 2 diabetes mellitus -Glucose checks and sliding scale insulin -Continue long-acting insulin #Tobacco use -Advise cessation -Patient agreeable to nicotine replacement #DVT ppx: Lovenox subcu Leeanne Barron MD Time spent in the patient's overall evaluation,decision-making process, review of diagnostic data, adjustment of management, discussion with other providers, nursing nursing and ancillary staff involved in patient's care documentation, 55Minutes Charges/Coding Visit Charges Inpatient E&M: 54939 Init Hosp L2 08/04/23 1520 <Electronically signed by Leeanne Barron MD> Cosigner Signature (if applicable): CC: Dr. Leeanne Barron MD; Dr. Ricci Cole MD~ Signed [facility] Work Phone: 1(407) 639-599312-04-2023 History of Present illness Narrative* Herson Ashford RN - 07/28/2023 2:15 PM EST CDM Telephonic Outreach Provider Action/FYI Contacted for: Routine Telephonic Outreach Contact made with patient: No, unable to leave message. Will reattempt call Herson Ashford RN July 28, 2023 2:18 PM documented in [facility] encounterM[facility]11[facility]29[facility] History of Present illness Narrative* Herson Ashford RN - 07/23/2023 3:39 PM EST [facility] Telephonic Outreach Provider Action/FYI Phone rings-no voicemail Contacted for: Routine Telephonic Outreach Contact made with patient: No, unable to leave message. Will reattempt call Herson Ashford RN July 24, 2023 4:28 PM documented in this encounterM[facility] Hospital11-27-2023 Miscellaneous Notes* Telephone Encounter - Tiffanie Fan MA - 07/21/2023 10:18 AM EST Patient has been identified by name and date of : Yes Requested Prescriptions Pending Prescriptions Disp Refills insulin glargine U-300 conc (TOUJEO) 300 unit/mL (1.5 mL) 1 Each 0 Sig: Inject 80 Units subcutaneously every morning. E11.9 RX INSTRUCTIONS: Patient aware RX will be sent to pharmacy. No need to notify patient. Tiffanie Fan MA Joanna 03/2023 No appointment scheduled Last refill: 03/2023 * Telephone Encounter - Liseth Caruso - 07/21/2023 10:07 AM EST Patient has been identified by name and date of : Yes Requested Prescriptions Pending Prescriptions Disp Refills insulin glargine U-300 conc (TOUJEO) 300 unit/mL (1.5 mL) 1 Each 0 Sig: Inject 80 Units subcutaneously every morning. E11.9 RX INSTRUCTIONS: Patient aware RX will be sent to pharmacy. No need to notify patient. Liseth Greer documented in this encounterMorrow [facility] Hospital11-20-2023 Miscellaneous Notes* Telephone Encounter - Joycelyn Esparza - 07/14/2023 3:58 PM EST Patient has been identified by name and date of : Yes Requested Prescriptions Pending Prescriptions Disp Refills promethazine (PHENERGAN) 25 mg tablet 40 tablet 0 Sig: Take 1 tablet by mouth every 6 hours as needed for nausea/vomiting. RX INSTRUCTIONS: Patient is out of medication. Please send today. Patient aware RX will be sent to pharmacy. No need to notify patient. Joycelyn Doyleing Pss documented in this encounterMorrow [facility] Hospital11-15-2023 History of Present illness Narrative* Sophia Fan APRN.LINE THERAPIST - 07/09/2023 1:47 PM EST CC: Patient presents with: Urinary Problem: Frequency, abdominal pain, nausea x 3 weeks Possible bronchitis, cough, sinus congestion, drainage, migraine x 2 weeks HPI Ivet Valero is a 68 year old female who presents with complaint of possible UTI. These symptoms have been present for 21 days. Associated symptoms: burning and abdominal pain The ROS was otherwise negative. PMH, Medications, labs, allergies, and recent past visits with PCP were reviewed and updated as able. PHYSICAL EXAM: BP 132/66 Pulse 104 Temp 36.9 C (98.5 F) Resp 21 Wt 102.7 kg (226 lb 6.4 oz) SpO2 99% BMI 35.45 kg/m General: Well appearing and alert Abdomen: Generalized tenderness, abdomen rotund and firm. Significantly more pain on the bottom lower portion of the abdomen PAST MEDICAL HISTORY Diagnosis Date Chronic airway obstruction, not elsewhere classified Degeneration of cervical intervertebral disc related to neck injury Depressive disorder, not elsewhere classified DM (diabetes mellitus) (HCC) Fibromyalgia Migraine with aura, without mention of intractable migraine without mention of status migrainosus Panic disorder without agoraphobia had hx of failed urine screen Recurrent UTI Tobacco use disorder PAST SURGICAL HISTORY Procedure Laterality Date CHOLECYSTECTOMY ESOPHAGOGASTRODUODENOSCOPY TRANSORAL DIAGNOSTIC 12/06/2015 EGD LIG/TRNSXJ FLP TUBE ABDL/VAG APPR UNI/BI Tubal ligation PAST SURGICAL HISTORY OF Left 03/2014 ANKLE FRACTURE REPAIR S SLING BLADDER 2012 & TOTAL ABDOMINAL HYSTERECT W/WO RMVL TUBE OVARY Hysterectomy, REJI ALLERGIES Chantix [Varenicline], Penicillins, and Sulfa (Sulfonamide Antibiotics) MEDICATIONS Insulin [place], Disposable, (BD ULTRA-FINE MINDY PEN NEEDLE) 32 gauge x 5/32 Use one needle for each dose, 4 times daily. (4mm) gabapentin (NEURONTIN) 400 mg capsule Take 1 capsule by mouth three times a day for 90 days. promethazine (PHENERGAN) 25 mg tablet Take 1 tablet by mouth every 6 hours as needed for nausea/vomiting. insulin lispro (HUMALOG KWIKPEN INSULIN) 100 unit/mL Inject 12 Units subcutaneously three times daily before meals. And sliding scale up to 38 units tid. atorvastatin (LIPITOR) 20 mg tablet Take 1 tablet by mouth daily at bedtime. For cholesterol. busPIRone (BUSPAR) 10 mg tablet Take 1 tablet by mouth three times daily. omeprazole (PRILOSEC) 40 mg capsule Take 1 capsule by mouth once daily. naproxen (NAPROSYN) 500 mg tablet Take 1 tablet by mouth twice daily with meals. calcitriol (ROCALTROL) 0.25 mcg capsule Take 1 capsule by mouth once daily. carvedilol (COREG) 3.125 mg tablet Take 1 tablet by mouth twice daily. insulin glargine U-300 conc (TOUJEO) 300 unit/mL (1.5 mL) Inject 80 Units subcutaneously every morning. E11.9 albuterol HFA (VENTOLIN HFA) 90 mcg/actuation inhaler Inhale 2 Puffs as instructed every 4 hours asneeded. fluticasone-vilanterol (BREO ELLIPTA) 100-25 mcg/dose inhaler Inhale 1 Inhalation as instructed once daily. escitalopram oxalate (LEXAPRO) 20 mg tablet Take 20 mg by mouth once daily. buPROPion XL (WELLBUTRIN XL) 150 mg 24 hr tablet Take 1 tablet by mouth once daily. Insulin [place], Disposable, 32 gauge x 5/16 ndle Use four times daily with insulin blood sugar diagnostic (BLOOD GLUCOSE TEST) test strip Test blood sugar(s) 3 daily. Dx: Type 2 DM -Uncontrolled E11.65 Insulin: Yes QUEtiapine XR (SEROQUEL XR) 300 mg 24 hr tablet Take 300 mg by mouth daily at bedtime. Blood Pressure Monitor 1 Each once daily. Blood Pressure Monitor EXLARGE BLOOD PRESSURE CUFF MONITOR KIT checking bp 4 times daily lancets 33 gauge TEST BLOOD SUGARS 3 TIMES A DAY, E11.9 FAMILY HISTORY Problem Relation Age of Onset Hypertension Mother Social History Tobacco Use Smoking status: Some Days Packs/day: 1.00 Years: 40.00 Additional pack years: 0.00 Total pack years: 40.00 Types: Cigarettes Smokeless tobacco: Never Tobacco comments: 3 cigarettes daily? Vaping Use Vaping Use: Never used Substance Use Topics Alcohol use: No Drug use: No ASSESSMENT/PLAN: 1. Urinary frequency - ICD9: 788.41, ICD10: R35.0 - UA DIP, URINE (POC) - GLUCOSE, BLOOD (POC)-302 She is being referred to the emergency room due to 3 recent hospitalizations with drug-resistant UTIs. Patient was okay with this care plan and will take her self. Sophia Fan APRN.CNP documented in this encounterMorrow [facility] Hospital11-07-2023 Miscellaneous Notes* Telephone Encounter - Nanci Huber APRN.CNP - 07/01/2023 10:58 AM EST Script sent. Nanci Huber APRN.CNP * Telephone Encounter - Mirian Mckinnon - 07/01/2023 10:01 AM EST Patient calling for a refill on the 4 mm pen needles (not on refill list). [facility] send to [facility]. documented in this encounterMorrow [facility] Hospital10-20-2023 History of Present illness Narrative* Herson Ashford RN - 06/13/2023 8:45 AM EDT CDM Telephonic Outreach Provider Action/FYI Reached friend. Reports Ivet not home at time of call Contacted for: Routine Telephonic Outreach Contact made with patient: Yes Patient identified by name and date of . Discussed care with friend documented in this encounterCleveland [id number] Miscellaneous Notes* Telephone Encounter - Kash Ledesma LPN - 06/11/2023 9:40 AM EDT JOANNA 04/15/23 NOV no upcoming appt * Telephone Encounter - Tyra Galan - 06/11/2023 8:55 AM EDT Patient has been identified by name and date of : Yes Requested Prescriptions Pending Prescriptions Disp Refills promethazine (PHENERGAN) 25 mg tablet 40 tablet 0 Sig: Take 1 tablet by mouth every 6 hours as needed for nausea/vomiting. RX INSTRUCTIONS: Patient aware RX will be sent to pharmacy. No need to notify patient. Tyra rGeer documented in this encounterMorrow [facility] Hospital10-09-2023 History of Present illness Narrative* Lou Osman MA - 06/02/2023 9:16 AM EDT POPULATION HEALTH NAVIGATION OUTREACH Action/FYI Patient will call back to schedule. BP Controlled (<130/80) Never done Colorectal Cancer Screening Never done Mammogram Screening due on 05/18/2020 Advance Directive Discussion Never done Influenza Vaccine(1) due on 04/25/2023 Patient Identified by Name and : NO Outreach Outcome/Action Spoke to patient / parent / legal guardian: Patient will return the call or ask for return call Did you use a PCP flex slot to schedule this appointment? No Reason for Outreach Care Gap or Scheduling/Wellness visits Payer: Payor: MEDICARE / Plan: MEDICARE A AND B / Product Type: Medicare / Care Gap Reviewed:: Annual Wellness visit Breast Cancer screening Controlling Blood Pressure Colorectal Cancer Screening Flu Vaccine Reminder: Reminder note to check Health Maintenance for items below Health Maintenance items due: BP Controlled (<130/80) Never done Alpha-1 Antitrypsin Deficiency Screening Never done Colorectal Cancer Screening Never done Lung Cancer Screening Never done Shingrix Vaccine(1 of 2) Never done Hepatitis B Vaccine(1 of 3 - Risk 3-dose series) Never done Dilated Retinal Exam due on 04/12/2017 Mammogram Screening due on 05/18/2020 Covid-19 Vaccine(2 - Moderna series) due on 03/19/2022 Bone Density Screening Never done Advance Directive Discussion Never done Influenza Vaccine(1) due on 04/25/2023 Navigation Signature: Lou Osman MA June 02, 2023 9:16 AM documented in this encounterMorrow [facility] Hospital09-19-2023 History of Present illness Narrative* Herson Ashford RN - 05/13/2023 9:39 AM EDT CDM Telephonic Outreach Provider Action/FYI Unable to leave message Voicemail not set up Contacted for: Routine Telephonic Outreach Contact made with patient: No, unable to leave message. Will reattempt call Herson Ashford RN May 14, 2023 3:08 PM documented in this encounterMorrow [facility] Hospital09-13-2023 Telephone encounter Note * Telephone Encounter - Adali Aguero - 05/07/2023 10:26 AM EDT JOANNA:04-15- No appt made. [facility]09-13-[facility]23 Miscellaneous Notes* Telephone Encounter - Adali Aguero - 05/07/2023 10:26 AM EDT JOANNA:04-15- No appt made. * Telephone Encounter - Liseth Caruso - 05/07/2023 10:19 AM EDT Patient has been identified by name and date of : Yes Requested Prescriptions Pending Prescriptions Disp Refills insulin lispro (HUMALOG KWIKPEN INSULIN) 100 unit/mL 1 Each 0 Sig: Inject 12 Units subcutaneously three times daily before meals. And sliding scale up to 38 units tid. promethazine (PHENERGAN) 25 mg tablet 40 tablet 0 Sig: Take 1 tablet by mouth every 6 hours as needed for nausea/vomiting. RX INSTRUCTIONS: Patient aware RX will be sent to pharmacy. No need to notify patient. Liseth Greer documented in this encounterMorrow County Hospital09-13-2023 Telephone encounter Note * Telephone Encounter - Liseth Caruso - 05/07/2023 10:19 AM EDT Patient has been identified by name and date of : Yes Requested Prescriptions Pending Prescriptions Disp Refills insulin lispro (HUMALOG KWIKPEN INSULIN) 100 unit/mL 1 Each 0 Sig: Inject 12 Units subcutaneously three times daily before meals. And sliding scale up to 38 units tid. promethazine (PHENERGAN) 25 mg tablet 40 tablet 0 Sig: Take 1 tablet by mouth every 6 hours as needed for nausea/vomiting. RX INSTRUCTIONS: Patient aware RX will be sent to pharmacy. No need to notify patient. Liseth Bell Pss [facility]09-12-2023 Miscellaneous Notes* Telephone Encounter - Marylu Yeung Ma - 05/06/2023 2:01 PM EDT Fax received and placed on provider desk. Primary Dx N36.8 Incontinence Dx N 39.46 * Telephone Encounter - Madelaine Frazier LPN - 05/06/2023 12:06 PM EDT Pt calls back to report that [employer] advised on the cover sheet of fax it has everything that is needed. Pt reports her weight is one of those things. Madelaine Frazier LPN * Telephone Encounter - Mary Lopez LPN - 05/06/2023 11:50 AM EDT Ivet is asking for the office to call the list number to see what is needed. Advised office is currently seeing Patients not sure when they will be able to get to it, asked Patient to have [employer] refax the form and list what is needed to complete. Patient will call to have refaxed. Mary Lopez LPN * Telephone Encounter - Madelaine Frazier LPN - 05/06/2023 11:39 AM EDT Pt calls to report that [employer] is faxing another form for incontinence supplies because the form has been sent back and forth so much. Pt reports she was advised that the diagnosis codes and dr's signature need to be on the form. Pt reports if the office is not sure what the problem is (previous encounters where fax has been sent back to office and office has completed and faxed back) to please call: [phone] and find outwhat the problem is. Pt reports this has been going on since 04/16/23. Madelaine Frazier LPN documented in this encounterMorrow County Hospital08-31-2023 Miscellaneous Notes* Telephone Encounter - Jaycee Cohn LPN - 04/24/2023 12:47 PM EDT Forms are completed and faxed back as requested. * Telephone Encounter - Kash Ledesma LPN - 04/23/2023 3:15 PM EDT Type of form: DWO Form received via fax When form is completed, Fax form to [phone] Form has been forwarded to Physician Mailbox: Dr. Kelsey Ledesma LPN documented in this encounterMorrow County Hospital08-30-2023 Miscellaneous Notes* Telephone Encounter - Jaycee Cohn LPN - 04/23/2023 11:54 AM EDT Added a height and weight and sent back. * Telephone Encounter - Sue Quinonez RN - 04/23/2023 10:48 AM EDT Patient calls to ask if provider office received incontinence supply forms back requesting additional information. Patient reports that [employer] [employer] received the forms but notified her that they were sending forms back to provider because there was information missing from the form. Patient wasn't sure what was missing but reports forms were being faxed back. Fax corrected forms to [phone] per patient request. Sue Quinonez RN documented in this encounterMorrow County Hospital08-25-2023 Miscellaneous Notes* Telephone Encounter - Kash Ledesma LPN - 04/18/2023 4:51 PM EDT Pt notified of results/provider response. She verbalized understanding. Kash Ledesma LPN * Telephone Encounter - Nanci Huber APRN.SINGH - 04/18/2023 4:39 PM EDT Can please let patient know that I received her test results. Her urine did show an infection. I sent macrobid to the pharmacy -- it will be one pill by mouth twice daily X 1 week. Her cholesterol is higher than we like. She should resume a cholesterol lowering medication. I resent this to the pharmacy, as well. Her vitamin D was low. Please ensure that she is taking/restarted the calcitriol daily. The A1C (3 month average blood sugar) was 7 -- which is improved. Continue the same diabetic medications. Thyroid normal. Mag level is normal. Parathyroid hormone is normal. Blood counts are stable. Urine protein is normal. Nanci Huber APRN.LINE THERAPIST The 10-year ASCVD risk score (Aiden PHELPS, et al., 2019) is: 29.9% Values used to calculate the score: Age: 68 years Sex: Female Is Non- : No Diabetic: Yes Tobacco smoker: Yes Systolic Blood Pressure: 138 mmHg Is BP treated: Yes HDL Cholesterol: 67 mg/dL Total Cholesterol: 234 mg/dL documented in this encounterMorrow County Hospital08-23-2023 Miscellaneous Notes* Telephone Encounter - Jaycee Cohn LPN - 04/16/2023 12:10 PM EDT Completed and faxed. * Telephone Encounter - Kash Ledesma LPN - 04/16/2023 11:49 AM EDT Type of form: [employer] Form received via fax When form is completed, Fax form to [phone] Form has been forwarded to Physician Mailbox: Dr. Kelsey Ledesma LPN documented in this encounterMorrow County Hospital08-23-2023 Miscellaneous Notes* Telephone Encounter - Ricci Cole MD - 04/16/2023 8:57 AM EDT Patient seen yesterday. Needs forms completed for urinary incontinence supplies. Has long standing issues for mixed incontinence. Reviewed urology notes. Would benefit from their use. documented in this encounterMorrow County Hospital08-22-2023 Instructions* Patient Instructions* Nanci Huber APRN.CNP - 04/15/2023 11:20 AM EDT Restart the carvedilol twice daily. Get the labwork. Schedule mammo. Schedule bone density. Schedule lung cancer screening. Schedule eye appt. Do the stool sample. Recheck in 3 months. BONE MINERAL DENSITY PATIENT INSTRUCTIONS Bone mineral density testing measures the amount of calcium in certain parts of your bones. This information determines how strong your bones are. The test is used to detect osteoporosis, a disease in which the bone's mineral content and density are low, increasing a person's risk of fractures. Thelumbar spine (lower back) and the hip are the skeletal sites usually examined. For the test, remember that: 1. You cannot take this test if you are . 2. Eat a normal diet on the day of the test. 3. Take your medications as you normally would. 4. DO NOT take calcium supplements (such as Tums) for 24 hours before the test. 5. On the day of the test, leave valuables (jewelry or credit cards) at home. 6. The test should be performed prior to oral, rectal or IV contrast studies, or at least 7 days after any of these studies. For the test, you may be asked to wear a hospital gown. You will lie on your back, on a padded table, in a comfortable position. Generally, you can resume your usual activities immediately. documented in this encounterMorrow County Hospital08-22-2023 History of Present illness Narrative* Nanci Huber APRN.SINGH - 04/15/2023 10:45 AM EDT This is a 68 year old female who presents today with: Patient presents with: Follow Up HISTORY OF PRESENT ILLNESS: Ivet Valero is a 68 year old female. Patient presents with: Follow Up Pt presents today to follow-up. Has not been seen in over a year. 15 minutes delayed to appointment. DM: Reports overall feeling well. Medication side effects: Yes. Home sugar checks: 2-3 times daily -- 240s. Hypoglycemic spells: No. Watching diet: trying to. Unexpected weight loss: No. Has lost 20# since here last. Polyuria, polydipsia: excessive urination. Vision Changes: states time for exam. Refers needs cataract surgery. Foot lesions or numbness or pain: No. HTN: Patient is compliant with meds Yes Monitors bp at home: No. Denies side effects: No. Chest pain: No. Dyspnea: gets out of breath if she walks too much. Edema: No. Palpitations: No. Syncope: No. Headache: No. Dizziness: once in a while, will get a little dizzy when she stands up. HYPERLIPIDEMIA: Patient is taking medications: No. Patient is watching diet: trying to. Patient denies myalgias: has fibromyalgia. Patient denies gi upset: No Mood: Still follows with Dr. Juarez. Refers that mood hasn't been good. Granddaughter has drug problems. Chronic bronchitis/COPD. Gets rough sometimes. Still smokes. Has not seen pulmonology in some time. Chronic nausea Requesting refill of phenergan. 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 Depressive disorder, not elsewhere classified DM (diabetes mellitus) (HCC) Fibromyalgia Migraine with aura, without mention of intractable migraine without mention of status migrainosus Panic disorder without agoraphobia had hx of failed urine screen Recurrent UTI Tobacco use disorder PAST SURGICAL HISTORY Procedure Laterality Date CHOLECYSTECTOMY ESOPHAGOGASTRODUODENOSCOPY TRANSORAL DIAGNOSTIC 12/06/2015 EGD LIG/TRNSXJ FLP TUBE ABDL/VAG APPR UNI/BI Tubal ligation PAST SURGICAL HISTORY OF Left 03/2014 ANKLE FRACTURE REPAIR S SLING BLADDER 2012 & TOTAL ABDOMINAL HYSTERECT W/WO RMVL TUBE OVARY Hysterectomy, REJI ALLERGIES Chantix [Varenicline], Penicillins, and Sulfa (Sulfonamide Antibiotics) MEDICATIONS Current Outpatient Medications Medication Sig insulin glargine U-300 conc (TOUJEO) 300 unit/mL (1.5 mL) Inject 80 Units subcutaneously every morning. E11.9 insulin lispro (HUMALOG KWIKPEN INSULIN) 100 unit/mL Inject 12 Units subcutaneously three times daily before meals. And sliding scale up to 38 units tid. omeprazole (PRILOSEC) 20 mg capsule Take 2 capsules by mouth daily before breakfast. Needs appointment for more refills. albuterol HFA (VENTOLIN HFA) 90 mcg/actuation inhaler Inhale 2 Puffs as instructed every 4 hours asneeded. fluticasone-vilanterol (BREO ELLIPTA) 100-25 mcg/dose inhaler Inhale 1 Inhalation as instructed once daily. gabapentin (NEURONTIN) 400 mg capsule Take 1 capsule by mouth three times daily for 90 days. escitalopram oxalate (LEXAPRO) 20 mg tablet Take 20 mg by mouth once daily. buPROPion XL (WELLBUTRIN XL) 150 mg 24 hr tablet Take 1 tablet by mouth once daily. Insulin [place], Disposable, 32 gauge x 5/16 ndle Use four times daily with insulin blood sugar diagnostic (BLOOD GLUCOSE TEST) test strip Test blood sugar(s) 3 daily. Dx: Type 2 DM -Uncontrolled E11.65 Insulin: Yes QUEtiapine XR (SEROQUEL XR) 300 mg 24 hr tablet Take 300 mg by mouth daily at bedtime. Blood Pressure Monitor 1 Each once daily. Blood Pressure Monitor EXLARGE BLOOD PRESSURE CUFF MONITOR KIT checking bp 4 times daily lancets 33 gauge TEST BLOOD SUGARS 3 TIMES A DAY, E11.9 busPIRone (BUSPAR) 10 mg tablet Take 1 tablet by mouth three times daily. naproxen (NAPROSYN) 500 mg tablet Take 1 tablet by mouth twice daily with meals. atorvastatin (LIPITOR) 40 mg tablet Take 1 tablet by mouth daily at bedtime. For cholesterol. calcitriol (ROCALTROL) 0.25 mcg capsule Take 1 capsule by mouth once daily. albuterol (PROVENTIL) 2.5 mg /3 mL (0.083 %) nebulizer solution Use 3 mL via nebulizer every 4 hours as needed for wheezing/shortness of breath. Cholecalciferol-Soy Isoflavone 2,000-64 unit-mg tab Take 2,000 Units by mouth once daily. azelastine (ASTELIN) 0.1% nasal spray Use 1 [place] in each nostril twice daily. carvedilol (COREG) 6.25 mg tablet Take 1 tablet by mouth twice daily. No current facility-administered medications for this visit. FAMILY HISTORY Problem Relation Age of Onset Hypertension Mother Social History Tobacco Use Smoking status: Some Days Packs/day: 1.00 Years: 40.00 Additional pack years: 0.00 Total pack years: 40.00 Types: Cigarettes Smokeless tobacco: Never Tobacco comments: 3 cigarettes daily? Vaping Use Vaping Use: Never used Substance Use Topics Alcohol use: No Drug use: No EXAM: BP 138/78 Pulse 104 Resp 16 Wt 99.3 kg (219 lb) SpO2 94% BMI 34.29 kg/m PHYSICAL EXAM: General Appearance: Well appearing, alert, in no acute distress, well-hydrated, well nourished.. Skin: Skin color, texture, turgor normal, no suspicious rashes or lesions, sweating. Head: Normocephalic, no masses, lesions, tenderness or abnormalities. Eyes: Anicteric sclera. Pupils are equally round and reactive to light. Extraocular movements are intact. . Ears: External ears normal, canals clear, Normal TMs bilaterally. Oropharynx: Lips, mucosa, and tongue normal, teeth and gums normal, oropharynx normal. Neck: Supple, no adenopathy; thyroid symmetric, normal size, no bruits. Lungs: Lungs clear to auscultation. No wheezing, rhonchi, rales.. Heart: RRR without murmur, gallop, or rubs. No ectopy. Abdomen: Abdomen soft, non-tender. Bowel sounds normal. No masses, organomegaly. Extremities: No deformities, edema, skin discoloration, clubbing or cyanosis. Good capillary refill. . Neurologic: Gait normal. Feet:Shoes and socks removed, No deformities, ulcers, calluses, normal distal pulses, and sensitiveto 10 gm monofilament ASSESSMENT/PLAN: 1. Type 2 diabetes mellitus without complication, without long-term current use of insulin (HCC) - ICD9: 250.00, ICD10: E11.9 (primary diagnosis) - Control undetermined, due for labs - Continue current medications - COMP METABOLIC PANEL - HGB A1C - ALBUMIN/CREAT RATIO RND UR 2. Chronic nausea - ICD9: 787.02, ICD10: R11.0 Refill: - PROMETHAZINE 25 MG TABLET 3. Primary hypertension - ICD9: 401.9, ICD10: I10 - Uncontrolled Restart carvedilol. - COMP METABOLIC PANEL - CARVEDILOL 3.125 MG TABLET 4. Secondary polycythemia - ICD9: 289.0, ICD10: D75.1 - CBC + DIFF 5. Hyperlipidemia, mixed - ICD9: 272.2, ICD10: E78.2 - Control undetermined, due for labs She is currently off the statin and does not wish to restart at this time. - LIPID PANEL, NONFASTING 6. Urinary frequency - ICD9: 788.41, ICD10: R35.0 - URINALYSIS, WITH MICROSCOPIC - URINE CULTURE 7. Panic attacks - ICD9: 300.01, ICD10: F41.0 Restart: - BUSPIRONE 10 MG TABLET 8. Fibromyalgia - ICD9: 729.1, ICD10: M79.7 Restart: - NAPROXEN 500 MG TABLET 9. Low vitamin D level - ICD9: 790.6, ICD10: R79.89 Recheck. - CALCITRIOL 0.25 MCG CAPSULE - VITAMIN D 25 HYDROXY 10. Serum calcium elevated - ICD9: 275.42, ICD10: E83.52 Order , as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 Reports car trouble and grand dtr having some issues. Agrees to call from virtualist Contact made with patient: Yes Patient identified by name and . Discussed care with patient It s nice talking to you again. As a reminder, this is our bi-weekly check-in where I will be asking you questions about your health. This will only take a few minutes of your time. Is this a good time? Yes Symptoms What Chronic Disease(s) does the patient have: COPD Do you check your blood pressures at home? No Do you have new or worse shortness of breath with activity? No Do you have new or worsening cough? Yes Do you have new or worsening wheezing? Yes Do you need to use your rescue (Albuterol) inhaler or nebulizer more often than normal? No Are you having any other symptoms that your PCP needs to know about? Yes Symptoms: yes will copy PCP Symptom Escalation PEGGY Education Ordered -: No The patient required an escalation for symptom(s)? Yes, Virtualist - Inform patient that you will be contacting a provider who will be contacting them - Urgent / SAME DAY visit: Page Virtualist at and indicate 'CDM patient', MRN, Patient Name, Patient Concern, and patient's preferred method of contact (telephone, BigBarnime, Google Duo), your name, your contact number. Informed patient that you recommend further assessment from a provider to review symptoms. I have sent a page for the provider to contact you today. If you haven't heard from that provider and still have concerns, please contact you PCP's office right away. Indicated CDM patient and symptoms in the FYI box and sent alpha page to Virtualist to to contact the patient. END OUTREACH documented in this encounterM[facility]12-19-[facility]22 Miscellaneous Notes* Telephone Encounter - Liseth Bell Pss - 08/12/2022 9:32 AM EST Patient has been identified by name and date of : Yes Requested Prescriptions Pending Prescriptions Disp Refills insulin lispro (HUMALOG KWIKPEN INSULIN) 100 unit/mL 8 Each 0 Sig: Inject 12 Units subcutaneously three times daily before meals. And sliding scale up to 38 units tid. RX INSTRUCTIONS: Patient aware RX will be sent to pharmacy. No need to notify patient. Liseth Bell Pss documented in this encounterM[facility]12-07-2022 Miscellaneous Notes* Telephone Encounter - Bridgett Mendoza LPN - 07/31/2022 1:50 PM EST Patient has been identified by name and date of : Yes Patient phones for refill(s): Requested Prescriptions Pending Prescriptions Disp Refills omeprazole (PRILOSEC) 20 mg capsule 60 capsule 0 Sig: Take 2 capsules by mouth daily before breakfast. Needs appointment for more refills. insulin glargine U-300 conc (TOUJEO) 300 unit/mL (1.5 mL) 9 Each 1 Sig: Inject 80 Units subcutaneously every morning. E11.9 albuterol HFA (VENTOLIN HFA) 90 mcg/actuation inhaler 18 g 5 Sig: Inhale 2 Puffs as instructed every 4 hours as needed. insulin lispro (HUMALOG KWIKPEN INSULIN) 100 unit/mL 8 Each 0 Sig: Inject 12 Units subcutaneously three times daily before meals. And sliding scale up to 38 units tid. Date of last office visit in primary care: 01/05/22 next apt 08/12/22 Last 2 Encounter Wt Readings: Date: Wt: 01/29/2022 108.4 kg (239 lb) 01/05/2022 108 kg (238 lb) Previous labs/tests for medication: Diabetes: Hemoglobin A1C (%) Date Value 01/05/2022 7.7 12/23/2020 8.3 09/01/2020 8.5 Thank you. Bridgett Mendoza LPN documented in this encounterM[facility]12-06-2022 History of Present illness Narrative* Herson Ashford RN - 07/30/2022 9:25 AM EST INSIGHT CDM TELEPHONIC OUTREACH Provider Action/FYI: COPD Voicemail box not set up Contact made with patient: No - Unable to leave message Entered next patient outreach date for the following business day, if third call please enter next outreach date for one week in the Track Pt. Outreach - End Outreach documented in this encounterM[facility] Hospital11-30-2022 Miscellaneous Notes* Telephone Encounter - Kimberly Vazquez - 07/24/2022 8:54 AM EST Patient has been identified by name and date of : Yes Patient phones for refill(s): Requested Prescriptions Pending Prescriptions Disp Refills fluticasone-vilanterol (BREO ELLIPTA) 100-25 mcg/dose inhaler 1 Each 5 Sig: Inhale 1 Inhalation as instructed once daily. PLEASE VERIFY SIG/DOSE WILL BE COVERED BY PATIENT'S INSURANCE (RECEIVED AN ALERT WHILE ENTERING PRESCRIPTION INTO ORDERS) Date of last office visit in primary care: 01/29/22 Last 2 Encounter Wt Readings: Date: Wt: 01/29/2022 108.4 kg (239 lb) 01/05/2022 108 kg (238 lb) Previous labs/tests for medication: Not applicable Please advise. Thank you. Kimberly Vazquez documented in this encounterM[facility] Hospital11-17-2022 Miscellaneous Notes* Telephone Encounter - Jaky Greer - 07/11/2022 9:58 AM EST Patient has been identified by name and date of : Yes Last office visit in this department: Visit date not found RX INSTRUCTIONS: Patient aware RX will be sent to pharmacy. No need to notify patient. Patient phones requesting refills as follows: Patient schedule 3 mo follow up med review on 07/29/2022 with Ayala Holland Requested Prescriptions Pending Prescriptions Disp Refills fluticasone-vilanterol (BREO ELLIPTA) 100-25 mcg/dose inhaler 1 Each 5 Sig: Inhale 1 Inhalation as instructed once daily. Please review and advise. Jaky Greer documented in this encounterM[facility] Hospital11-03-2022 Miscellaneous Notes* Telephone Encounter - Leann Greer - 06/27/2022 11:16 AM EDT Patient has been identified by name and date of : Yes Last office visit in this department: 01/29/2022 RX INSTRUCTIONS: Patient aware RX will be sent to pharmacy. No need to notify patient. Patient phones requesting refills as follows: Requested Prescriptions Pending Prescriptions Disp Refills busPIRone (BUSPAR) 10 mg tablet 90 tablet 3 Sig: Take 1 tablet by mouth three times daily. Please review and advise. Leann Greer documented in this encounterM[facility] Hospital11-01-2022 Miscellaneous Notes* Telephone Encounter - Renetta Coles - 06/25/2022 4:44 PM EDT Noted. Renetta Coles * Telephone Encounter - Laurel Karimisec - 06/25/2022 4:38 PM EDT Ivet Valero is calling Ricci Cole MD today to advise provider has had the endoscopy doneat [facility] by Dr. Mac. Patient saw Meredith Rodriguez in Urology yesterday. She still is going to do the CT scan and MRI at [facility]. Patient has been identified by name and birthdate. Duration of symptoms: N/A Person calling: self Call patient at: at home [phone] (home) Was an appointment scheduled: No Closing statement: Results or non-symptom based questions: Thank you for calling [facility], your call will be returned within the next business day. Laurel Tirado [employer] documented in this encounterMorrow [facility] Hospital11-01-2022 Miscellaneous Notes* Telephone Encounter - Laurel [facility] - 06/25/2022 4:34 PM EDT Patient has been identified by name and date of : Yes Requested Prescriptions Pending Prescriptions Disp Refills promethazine (PHENERGAN) 25 mg tablet 30 tablet 2 Sig: Take 1 tablet by mouth every 6 hours as needed. RX INSTRUCTIONS: PATIENT IS ASKING FOR THE TABLETS PLEASE Patient aware RX will be sent to pharmacy. No need to notify patient. [facility] documented in this encounterMorrow [facility] Hospital10-31-2022 Miscellaneous Notes* Telephone Encounter - Jaycee Cohn LPN - 06/24/2022 12:23 PM EDT No future visit scheduled. JOANNA 01/29/22 * Telephone Encounter - Kareen Lam - 06/24/2022 8:25 AM EDT Patient has been identified by name and date of : Yes Requested Prescriptions Pending Prescriptions Disp Refills promethazine (PHENERGAN) 25 mg suppository 12 Suppository 0 Si Suppository by RECTAL route every 6 hours as needed. RX INSTRUCTIONS: Patient aware RX will be sent to pharmacy. No need to notify patient. Kareen Lam documented in this encounterM[facility] Hospital10-26-2022 History of Present illness Narrative* Sho Hebert RN - 06/19/2022 9:07 AM EDT INSIGHT CDM TELEPHONIC OUTREACH Provider Action/FYI: Patient reports she is doing okay, completed last dose of IV antibiotics for UTI 06/01, but feels she continues to have UTI symptoms of feeling feverish; does not have a thermometer; chills, body aches,frequency, incontinence, and fatigue. Patient voices much frustration over not having a follow up urine test, states it was like this when she had her previous UTI. Offered to send a message to PSS to schedule pcp appointment, patient declined, states she does nothave a car and states she is working on finding someone to drive her where she needs to go. Offered to nelida ocasio, patient declined, states she does not want to start on an antibiotic ifit is not going to work, has an appointment with Dr Meredith Oropeza 06/24 Discussed with patient going to [facility] or ER if symptoms worsen, patient states the ER is so packed she would not go there. Suggested [facility] in [place], or new free standing ER in [place]. Patient states she will go if symptoms worsen. Offered to nelida ocasio again, patient declined. Follow up in 1 week. Contact made with patient: Yes Patient identified by name and . Discussed care with patient It s nice talking to you again. As a reminder, this is our bi-weekly check-in where I will be asking you questions about your health. This will only take a few minutes of your time. Is this a good time? Yes Symptoms What Chronic Disease(s) does the patient have: COPD Do you check your blood pressures at home? No Do you have new or worse shortness of breath with activity? No Do you have new or worsening cough? No Do you have new or worsening wheezing? No Do you need to use your rescue (Albuterol) inhaler or nebulizer more often than normal? No Are you having any other symptoms that your PCP needs to know about? No Symptom Escalation The patient required an escalation for symptom(s)? No Medications Do you have any questions about taking your medication or which medications you should be on? No Do you need any medication refills at this time, including any of the medications you might take only when needed? No Social We would like to make sure you have what you need so that your basic needs are met- including your personal safety, food, housing and medications? Would you like to speak with a social work sales team member to help give you support for any of these needs? No It can be normal to feel anxious or down during a time like this. Would you like to talk to a mental health professional about how you have been feeling? No Closing Thank you for taking the time to talk with me today. We want to work with you to ensure that we arekeeping your medical condition(s) well-controlled and to keep you healthy and out of the doctor's office or hospital. It s also not too late for me to sign you up for automated weekly questionnaires through [employer]. This is an easy way for us to stay connected each week. Are you interested? No, I understand. We can always sign you up in the future if you change your mind. Just as a reminder, will continue to call you every other week to check in on your health. Our calls should take 10-15 minutes or less. Remember, if you have concerns in between our calls, please call your PCP's office right away. Thank you. Enter next patient outreach date for two weeks on the same day of the week as today in the Track PtOutreach and End outreach. documented in this encounterM[facility] Hospital10-12-2022 History of Present illness Narrative* Sho Hebert RN - 06/05/2022 11:48 AM EDT INSIGHT CDM TELEPHONIC OUTREACH Provider Action/FYI: Contact made with patient: No - Unable to leave message Entered next patient outreach date for the following business day, if third call please enter next outreach date for one week in the Track Pt. Outreach - End Outreach documented in this encounterMorrow [facility] Hospital10-04-2022 Miscellaneous Notes* Telephone Encounter - Joyce Greer - 05/28/2022 11:20 AM EDT Pharmacy verified in [facility] Patient has been identified by name and date of : Yes Patient aware RX will be sent to pharmacy. No need to notify patient. Patient phones for refill(s): Requested Prescriptions Pending Prescriptions Disp Refills gabapentin (NEURONTIN) 400 mg capsule 90 capsule 2 Sig: Take 1 capsule by mouth three times daily for 90 days. Date of last office visit : 01/29/2022 Date of next office visit : 06/07/2022 Last 2 Encounter Wt Readings: Date: Wt: 01/29/2022 108.4 kg (239 lb) 01/05/2022 108 kg (238 lb) Please advise. Joyce Greer * Telephone Encounter - Joyce Greer - 05/28/2022 11:16 AM EDT nystatin (NYSTOP) powder 1 Bottle 3 02/22/2021 03/08/2021 Sig: Apply 1 application to affected area three times daily for 14 days. Sent to pharmacy as: nystatin (NYSTOP) powder Class: Normal Route: TOPICAL Patient is requesting a refill on the nystatin cream as well. documented in this encounterMorrow [facility] Hospital09-12-2022 History of Present illness Narrative* Jaycee Hmamjose r RUDOLPH - 05/06/2022 5:14 PM EDT TRANSITION CARE MANAGEMENT (TCM) INITIAL CONTACT [employer] Scheduler Outreach Provider Action/FYI: Patient states that is doing ok just still a little banged up from her fall. Initial contact with patient post discharge, spoke to patient. Patient identified by name and . TRANSITION CARE MANAGEMENT INITIAL OUTREACH DOCUMENTATION: No flowsheet data found. SUMMARY: -Pt discharged from [facility] on 05/03/22. -Admitted for: debility with fall and chronic UTI Do you have a hospital follow up appointment with your PCP? Appointment on 05/10/[address] Cole. Yes. Remind patient of appointment date, time, and location. If not within 14 calendar days of discharge - please reschedule accordingly. MEDICATIONS: Many patients have questions or concerns about their medications once they are home. Were you prescribed any new medications? If yes, what are those medications? Getting IV ATB treatment done outpatient daily. Were you told to hold any medications? No Were any of your medications discontinued? If yes, what are those medications? promethazine Do you have any questions about getting or taking your medications? No Your discharge instructions/After visit Summary (AVS) are important in guiding you through the recovery process. Is there anything I might help you understand? No Do you have all the necessary equipment and supplies at home? Yes Medical records from recent hospitalization: Placed for provider to review documented in this encounterM[facility] Hospital09-09-2022 Miscellaneous Notes* Telephone Encounter - Kash Ledesma LPN - 05/03/2022 12:25 PM EDT TC to Dania, left detailed message on secure identified voicemail. Kash Ledesma LPN * Telephone Encounter - Ricci Cole MD - 05/03/2022 11:42 AM EDT ok * Telephone Encounter - Diane Guillermo RN - 05/03/2022 11:36 AM EDT Dania with [facility] called in and reports Pt will be discharged from [facility] today. Dr Wade will follow Pts IV orders. She is asking if provider will follow HH orders for PT/OT/Custodial. She states they hope to start tomorrow. Please call Dania back. She report a message can be left on phone line as it is confidential. documented in this encounterMorrow [facility] Hospital09-07-2022 History of Present illness Narrative* Sho Hebert RN - 05/01/2022 10:06 AM EDT INSIGHT CDM TELEPHONIC OUTREACH Provider Action/FYI: Spoke to patients spouse Vern, who is involved in patients care, states patient is currently admitted to [facility]. This nurse to follow up in one week. Encounter sent to pcp for FYI Contact made with patient: Yes Patient identified by name and . Discussed care with spouse It s nice talking to you again. As a reminder, this is our bi-weekly check-in where I will be asking you questions about your health. This will only take a few minutes of your time. Is this a good time? No - today is not a good time for the patient. Agree on a call back time and connect with the patient then. If applicable, update the next patient outreach date using the Track Pt Outreach. End outreach documented in this encounterMorrow [facility] Hospital09-06-2022 History of Present illness Narrative* Sho Hebert RN - 04/30/2022 11:36 AM EDT INSIGHT CDM TELEPHONIC OUTREACH Provider Action/FYI: Contact made with patient: No - Unable to leave message Entered next patient outreach date for the following business day, if third call please enter next outreach date for one week in the Track Pt. Outreach - End Outreach documented in this encounterMorrow [facility] Hospital08-29-2022 Miscellaneous Notes* Telephone Encounter - Kash Ledesma LPN - 04/22/2022 3:14 PM EDT JOANNA 01/29/22 NOV 04/25/22 * Telephone Encounter - Karene Lam - 04/22/2022 1:14 PM EDT Patient has been identified by name and date of : Yes Requested Prescriptions Pending Prescriptions Disp Refills promethazine (PHENERGAN) 25 mg tablet 30 tablet 2 Sig: Take 1 tablet by mouth every 6 hours as needed. RX INSTRUCTIONS: Patient aware RX will be sent to pharmacy. No need to notify patient. Kareen Lam documented in this encounterMorrow [facility] Hospital08-23-2022 History of Present illness Narrative* Sho Hebert RN - 04/16/2022 11:53 AM EDT [facility] TELEPHONIC OUTREACH Provider Action/FYI: Contact made with patient: No - Unable to leave message - End Outreach documented in this encounterMorrow [facility] Hospital08-22-2022 History of Present illness Narrative* Sho Hebert RN - 04/15/2022 10:32 AM EDT [facility] TELEPHONIC OUTREACH Provider Action/FYI: Contact made with patient: Yes Patient identified by name and . Discussed care with patient It s nice talking to you again. As a reminder, this is our bi-weekly check-in where I will be asking you questions about your health. This will only take a few minutes of your time. Is this a good time? No - today is not a good time for the patient. Agree on a call back time and connect with the patient then. If applicable, update the next patient outreach date using the Track Pt Outreach. End outreach documented in this encounterMorrow [facility] Hospital08-03-2022 Miscellaneous Notes* Telephone Encounter - Joyce Greer - 03/27/2022 9:49 AM EDT Pharmacy verified in [facility] Patient has been identified by name and date of : Yes Patient aware RX will be sent to pharmacy. No need to notify patient. Patient phones for refill(s): Pending Prescriptions Disp Refills HYDROCODONE 10 MG-ACETAMINOPHEN 325 MG TABLET 120 tablet 0 Sig: Take 1 tablet by mouth every 6 hours as needed for up to 30 days. Patient on chronic pain medication for chronic pain: G89.29 BECCA Class: C-II JERE: No Date of last office visit : 03/18/2022 Date of next office visit : 05/20/2022 Last 2 Encounter Wt Readings: Date: Wt: 03/18/2022 88.5 kg (195 lb) 08/30/2021 88.5 kg (195 lb) Please advise. Joyce Greer documented in this encounterMorrow [facility] Hospital08-02-2022 Miscellaneous Notes* Telephone Encounter - Kash Ledesma LPN - 03/26/2022 11:00 AM EDT JOANNA 01/29/22 NOV 04/25/22 * Telephone Encounter - Tyra Mendoza Pss - 03/26/2022 10:51 AM EDT Patient has been identified by name and date of : Yes Pending Prescriptions Disp Refills BUSPIRONE 10 MG TABLET 90 tablet 3 Sig: Take 1 tablet by mouth three times daily. JERE: No RX INSTRUCTIONS: Patient aware RX will be sent to pharmacy. No need to notify patient. Tyra Mendoza Pss documented in this encounterMorrow [facility] Hospital07-25-2022 History of Present illness Narrative* Sho Hebert RN - 03/18/2022 11:01 AM EDT INSIGHT CDM TELEPHONIC OUTREACH Provider Action/FYI: No concerns at this time. Contact made with patient: Yes Patient identified by name and . Discussed care with patient It s nice talking to you again. As a reminder, this is our bi-weekly check-in where I will be asking you questions about your health. This will only take a few minutes of your time. Is this a good time? Yes Symptoms What Chronic Disease(s) does the patient have: COPD Do you check your blood pressures at home? No Do you have new or worse shortness of breath with activity? No Do you have new or worsening cough? No Do you have new or worsening wheezing? No Do you need to use your rescue (Albuterol) inhaler or nebulizer more often than normal? No Are you having any other symptoms that your PCP needs to know about? No Symptom Escalation The patient required an escalation for symptom(s)? No Medications Do you have any questions about taking your medication or which medications you should be on? No Do you need any medication refills at this time, including any of the medications you might take only when needed? No Social We would like to make sure you have what you need so that your basic needs are met- including your personal safety, food, housing and medications? Would you like to speak with a social work sales team member to help give you support for any of these needs? No It can be normal to feel anxious or down during a time like this. Would you like to talk to a mental health professional about how you have been feeling? No Closing Thank you for taking the time to talk with me today. We want to work with you to ensure that we arekeeping your medical condition(s) well-controlled and to keep you healthy and out of the doctor's office or hospital. It s also not too late for me to sign you up for automated weekly questionnaires through [employer]. This is an easy way for us to stay connected each week. Are you interested? No, I understand. We can always sign you up in the future if you change your mind. Just as a reminder, will continue to call you every other week to check in on your health. Our calls should take 10-15 minutes or less. Remember, if you have concerns in between our calls, please call your PCP's office right away. Thank you. Enter next patient outreach date for two weeks on the same day of the week as today in the Track PtOutreach and End outreach. documented in this encounterMorrow [facility] Hospital06-27-2022 History of Present illness Narrative* Sho Hebert RN - 02/18/2022 12:43 PM EDT [facility] TELEPHONIC OUTREACH Provider Action/FYI: Contact made with patient: No - Unable to leave message - End Outreach documented in this encounterMorrow [facility] Hospital06-24-2022 History of Present illness Narrative* Sho Hebert RN - 02/15/2022 12:43 PM EDT [facility] TELEPHONIC OUTREACH Provider Action/FYI: Contact made with patient: No - Unable to leave message Entered next patient outreach date for the following day, if third call please enter next outreach date for one week in the Track Pt. Outreach - End Outreach documented in this encounterMorrow [facility] Hospital06-20-2022 Miscellaneous Notes* Telephone Encounter - Sho Bermeo Ma - 02/11/2022 2:58 PM EDT Last office visit: 01/29/22 F/u scheduled: 04/25/22 Sho Bermeo Ma * Telephone Encounter - Laurel Terrazas - 02/11/2022 2:40 PM EDT Patient has been identified by name and date of : Yes Pending Prescriptions Disp Refills SCOPOLAMINE 1 MG OVER 3 DAYS TRANSDERMAL PATCH 10 Patch 1 Sig: Apply 1 Patch as directed every 72 hours. Apply patch to skin behind ear 4hrs prior to travel. JERE: No RX INSTRUCTIONS: Patient aware RX will be sent to pharmacy. No need to notify patient. Laurel Karimise documented in this encounterM[facility] Miscellaneous Notes* Telephone Encounter - Sue Quinonez RN - 02/01/2022 2:12 PM EDT Patient has been identified by name and date of : Yes Patient phones for refill(s): Pending Prescriptions Disp Refills PROMETHAZINE 25 MG TABLET 30 tablet 2 Sig: Take 1 tablet by mouth every 6 hours as needed. JERE: No Patient reports that compazine ordered on 01/29/2022 hasn't helped her nausea at all. Patient asking to go back on phenergan and reports she has no pills on hand. Date of last office visit with pcp: 01/29/2022 Future appt: 04/25/2022 Last 2 Encounter Wt Readings: Date: Wt: 01/29/2022 108.4 kg (239 lb) 01/05/2022 108 kg (238 lb) Previous labs/tests for medication: Blood Pressure: BUN (mg/dL) Date Value 12/18/2021 11 12/23/2020 8 Sodium (mmol/L) Date Value 12/18/2021 137 12/23/2020 137 Last 1 Encounter BP Readings: Date: BP: 01/29/2022 128/82 Liver Function: ALT (U/L) Date Value 01/05/2022 18 09/01/2020 15 AST (U/L) Date Value 01/05/2022 27 09/01/2020 17 Please advise. Thank you. Sue Quinonez RN documented in this encounterM[facility]06-[facility] History of Present illness Narrative* Sho Hebert RN - 01/31/2022 1:10 PM EDT [facility] Provider Action/FYI: Contact made with patient: No - Unable to leave message -End Outreach documented in this encounterM[facility]06-07-[facility]22 History of Present illness Narrative* Yasmany Holland PA-C - 01/29/2022 11:10 AM EDT 66 year old female with c/o Hospital discharge follow-up Facility: [facility] Date of admission 01/17/2022 Date of discharge: 01/22/2022. Preadmission details: Presented to the emergency department 01/18/2020 with complaint of pelvic painsecondary to urinary tract infection-like symptoms. Has been dealing for several weeks on differentmedications. Last was switched to Macrobid which was sensitive, finished 8 days ago but still continued pain. Also having body aches. On exam: Vital signs 90 8.2F 112-18-193/100 as 95% are a. CBC: WBC 14.4 with elevated absolute neutrophil 9.4, otherwise normal. Lactic acid 3.1. BMP within normal limits except potassium low at 3.4, chloride 108. UA: Specific gravity 1.020, protein 30, glucose 50, urine ketones 5, positive for nitrate, 0-5 RBCs, 25-50 WBCs, 5-10, 4+ bacteria. Hospital course: ER communicated with attending and decision was made to admit: Assessment and plan: 1. E. Coli ESBL UTI: Recurrent symptoms over 4 months multiple antibiotics without improvement. Received IV gentamicin in the emergency department. Started cephapirin IV, PICC line, case management 2. DM type II: Insulin-dependent, continue glargine and sliding scale insulin. 3. VTE prophylaxis: Low molecular weight heparin. 4. Need for COVID-vaccine: Patient refused 01/23/[address]Robert Ureña infectious disease: Agreed with choice of cefepime and on discharge 1 dose of fosfomycin 1 g. Discharge diagnoses: 1. UTI due to ESBL E. Coli: Improved over the course of treatment however patient continued complain of feeling weak and tired. 2. Type 2 diabetes without complications Discharge weight 248 pounds 14.43 ounces, BMI 38.9. 5 10/23/2021 labs: WBC 9.5 Hgb 13.4 HCT 41.6 PLT 277 01/22/2022 CMP: NA 139 CL 107 K4.0 CL 27.0 BUN 12 CRE 0.74 GLU 204 01/17/2022 blood culture x2 demonstrated no growth in 48 hours, clean-catch urine culture as above E. coli. No changes in medications on medication reconciliation. Follow-up as recommended with Dr. Meredith Oropeza 02/11/2022 States also has appt with Dr. Arteaga Friend Currently: [place] good for a couple day after discharge and wiped since then. No fevers, chills Nauseated without vomiting, no vomiting/ heartburn/ no dysphagia. Bowels; diarrhea twice in the morning, prety heavy, brown, watery, some little bits of mucous, nothing black or tarry. A tiny bit of light headedness every now and then A little cough. 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 Depressive disorder, not elsewhere classified DM (diabetes mellitus) (HCC) Fibromyalgia Migraine with aura, without mention of intractable migraine without mention of status migrainosus Panic disorder without agoraphobia had hx of failed urine screen Recurrent UTI Tobacco use disorder PAST SURGICAL HISTORY Procedure Laterality Date CHOLECYSTECTOMY ESOPHAGOGASTRODUODENOSCOPY TRANSORAL DIAGNOSTIC 12/06/2015 EGD LIG/TRNSXJ FLP TUBE ABDL/VAG APPR UNI/BI Tubal ligation PAST SURGICAL HISTORY OF Left 03/2014 ANKLE FRACTURE REPAIR S SLING BLADDER 2012 & TOTAL ABDOMINAL HYSTERECT W/WO RMVL TUBE OVARY Hysterectomy, REJI Social History Tobacco Use Smoking status: Current Some Day Smoker Packs/day: 1.00 Years: 40.00 Pack years: 40.00 Types: Cigarettes Smokeless tobacco: Never Used Tobacco comment: 3 cigarettes daily? Vaping Use Vaping Use: Never used Substance Use Topics Alcohol use: No Drug use: No ACTIVE PROBLEM LIST Tobacco Use Disorder Degeneration of Cervical Intervertebral Disc Chronic Bronchitis (Hcc) Migraine With Aura Panic Disorder Without Agoraphobia Fibromyalgia History of Recurrent [place] Uncontrolled Type 2 Diabetes Mellitus With Hyperglycemia (Hcc) Secondary Polycythemia Depression, Major, Recurrent, in Complete Remission (Hcc) Hyperlipidemia, Mixed Obesity, Class II, Bmi 35-39.9 Primary Hypertension Chronic Gastritis Without Bleeding Leukocytosis Current Outpatient Medications Medication Sig Dispense Refill insulin glargine U-300 conc (TOUJEO) 300 unit/mL (1.5 mL) Inject 80 Units subcutaneously every morning. E11.9 8 Pen 0 atorvastatin (LIPITOR) 40 mg tablet Take 1 tablet by mouth daily at bedtime. For cholesterol. 30 tablet 11 albuterol HFA (VENTOLIN HFA) 90 mcg/actuation inhaler Inhale 2 Puffs as instructed every 4 hours asneeded. 18 g 5 fluticasone-vilanterol (BREO ELLIPTA) 100-25 mcg/dose inhaler Inhale 1 Inhalation as instructed once daily. 1 Each 5 promethazine (PHENERGAN) 25 mg tablet Take 1 tablet by mouth every 6 hours as needed. 30 tablet 2 calcitriol (ROCALTROL) 0.25 mcg capsule Take 1 capsule by mouth once daily. 30 capsule 5 escitalopram oxalate (LEXAPRO) 20 mg tablet Take 20 mg by mouth once daily. albuterol (PROVENTIL) 2.5 mg /3 mL (0.083 %) nebulizer solution Use 3 mL via nebulizer every 4 hours as needed for wheezing/shortness of breath. 120 Vial 5 busPIRone (BUSPAR) 10 mg tablet Take 1 tablet by mouth three times daily. 90 tablet 3 omeprazole (PRILOSEC) 20 mg capsule Take 2 capsules by mouth daily before breakfast. 60 capsule 0 buPROPion XL (WELLBUTRIN XL) 150 mg 24 hr tablet Take 1 tablet by mouth once daily. Cholecalciferol-Soy Isoflavone 2,000-64 unit-mg tab Take 2,000 Units by mouth once daily. 90 tablet3 azelastine (ASTELIN) 0.1% nasal spray Use 1 [place] in each nostril twice daily. 6 mL 1 scopolamine (TRANSDERM-SCOP) patch 1.5 mg/72 hr (1 mg over 3 days) Apply 1 Patch as directed every 72 hours. Apply patch to skin behind ear 4hrs prior to travel. 10 Patch 1 gabapentin (NEURONTIN) 400 mg capsule Take 1 capsule by mouth three times daily for 90 days. 90 capsule 2 insulin lispro (HUMALOG KWIKPEN INSULIN) 100 unit/mL Inject 12 Units subcutaneously three times daily before meals. And sliding scale up to 38 units tid. 8 Pen 0 Insulin [place], Disposable, 32 gauge x 5/16 ndle Use four times daily with insulin 200 Each 0 blood sugar diagnostic (BLOOD GLUCOSE TEST) test strip Test blood sugar(s) 3 daily. Dx: Type 2 DM -Uncontrolled E11.65 Insulin: Yes 100 Strip 0 promethazine (PHENERGAN) 25 mg suppository 1 Suppository by RECTAL route every 6 hours as needed. 24 Suppository 2 QUEtiapine XR (SEROQUEL XR) 300 mg 24 hr tablet Take 300 mg by mouth daily at bedtime. carvedilol (COREG) 6.25 mg tablet Take 1 tablet by mouth twice daily. 180 tablet 3 Blood Pressure Monitor 1 Each once daily. 1 Kit 1 Blood Pressure Monitor EXLARGE BLOOD PRESSURE CUFF MONITOR KIT checking bp 4 times daily 1 Kit 0 lancets 33 gauge TEST BLOOD SUGARS 3 TIMES A DAY, E11.9 100 Each 3 No current facility-administered medications for this visit. HIV SCREENING Never done BP CONTROLLED (<130/80) Never done DTAP,TDAP,TD(1 - Tdap) Never done COLORECTAL CANCER SCREENING Never done LUNG CANCER SCREENING Never done SHINGRIX VACCINE(1 of 2) Never done DILATED RETINAL EXAM due on 04/12/2017 PNEUMOCOCCAL(2 - PCV) due on 01/23/2020 MAMMOGRAM due on 05/18/2020 EXAM: BP 128/82 Pulse 90 Resp 20 Wt 108.4 kg (239 lb) SpO2 98% BMI 37.42 kg/m Pleasant overweight adult woman in no acute distress. Alert and oriented all spheres. Normal affectand cognition. Speech normal. No deficits to learning or comprehension. Skin warm, dry, pink to lips and nailbeds. Normal turgor. Respirations regular and unlabored. HEENT: NCAT. No scleral icterus or conjunctival injection. TM's clear. Nose and oropharynx free from injection or lesion. Oral membranes moist and pink. No cervical lymph nodes. Thyroid non-tender, no masses, or enlargement. Carotids pulses 2+/4+ without bruits. No JVD with HOB at 30 degrees. Abdomen: active bowel sounds throughout, soft, nontender, no masses or organomegaly. No CVAT. Extrem: no clubbing or cyanosis. Edema: none. Extremities are warm and pink with prompt capillary refill. ASSESSMENT/PLAN: 1. Fibromyalgia - ICD9: 729.1, ICD10: M79.7 (primary diagnosis) Persistent sx: refill per request; cautions on taking with food, report GI issues. - NAPROXEN 500 MG TABLET 2. Type 2 diabetes mellitus without complication, without long-term current use of insulin (HCC) - ICD9: 250.00, ICD10: E11.9 Controlled. - Continue current medications - INSULIN GLARGINE (U-300) CONC. 300 UNIT/ML (1.5 ML) SUBCUTANEOUS PEN - CONSULT TO OPHTHALMOLOGY - HGB A1C - CBC + DIFF - LIPID PANEL BASIC - COMP METABOLIC PANEL - MAGNESIUM BLD 3. Screening for colon cancer - ICD9: V76.51, ICD10: Z12.11 - FECAL OCCULT BLOOD TEST 4. Primary hypertension - ICD9: 401.9, ICD10: I10 - good control - Continue current medication(s) - Recommended regular aerobic exercise. - Recommend home blood pressure monitoring, to bring results in on next visit - Goal of BP <130/80 5. Depression, major, recurrent, in complete remission (HCC) - ICD9: 296.36, ICD10: F33.42 Stable on medication Much of depression r/t pain. Gabapentin helps very little. Has good relief with Lyrica but states insurance wouldn't cover. Looks like a preferred drug on formulary: she will check with insurance on coverage and exopense 6. Hospital discharge follow-up - ICD9: V67.59, ICD10: Z09 Completed med rec and discharge tasks F/u 3 months and as needed after lab for Medicare wellness and problem review. Yasmany Holland PA-C documented in this encounterM[facility]06-01-[facility]22 History of Present illness Narrative* Jaycee Cohn LPN - 01/23/2022 3:32 PM EDT TRANSITION CARE MANAGEMENT (TCM) INITIAL CONTACT [employer] Scheduler Outreach Provider Action/FYI: States that is just feeling tired. Initial contact with patient post discharge, spoke to patient. Patient identified by name and . TRANSITION CARE MANAGEMENT INITIAL OUTREACH DOCUMENTATION: No flowsheet data found. SUMMARY: -Pt discharged from [facility] on 01/22/22. -Admitted for: UTI d/t ESBL producing E Coli and DM Do you have a hospital follow up appointment with your PCP? Appointment on 01/25/[address] Cole. Yes. Remind patient of appointment date, time, and location. If not within 14 calendar days of discharge - please reschedule accordingly. MEDICATIONS: Many patients have questions or concerns about their medications once they are home. Were you prescribed any new medications? No Were you told to hold any medications? No Were any of your medications discontinued? No Do you have any questions about getting or taking your medications? No Your discharge instructions/After visit Summary (AVS) are important in guiding you through the recovery process. Is there anything I might help you understand? No Do you have all the necessary equipment and supplies at home? Yes Medical records from recent hospitalization: Placed for provider to review documented in this encounterM[facility]05-31-2022 History of Present illness Narrative* Sho Hebert RN - 01/22/2022 11:26 AM EDT [facility]RE[facility] Provider Action/FYI: Patients spouse Vern, who is involved in patients care, answered the phone, states patient is currently admitted at [facility]. Will follow up in 1 week., Contact made with patient: Yes Patient identified by name and . Discussed care with spouse It s nice talking to you again. As a reminder, this is our bi-weekly check-in where I will be asking you questions about your health. This will only take a few minutes of your time. Is this a good time? No - today is not a good time for the patient. Agree on a call back time and connect with the patient then. If applicable, update the next patient outreach date using the Track Pt Outreach. End outreach documented in this encounterM[facility]05-31-2022 Miscellaneous Notes* Telephone Encounter - Savana Greer - 01/22/2022 10:47 AM EDT Patient has been identified by name and date of : Yes Pending Prescriptions Disp Refills INSULIN GLARGINE (U-300) CONC. 300 UNIT/ML (1.5 ML) SUBCUTANEOUS PEN 8 Pen 0 Sig: Inject 80 Units subcutaneously every morning. E11.9 JERE: No RX INSTRUCTIONS: please asking for 8 pens, didn't think got that amount last time, patient was in hospital. Patient aware RX will be sent to pharmacy. No need to notify patient. Savana Greer documented in this encounterM[facility]05-16-2022 History of Present illness Narrative* Sho Hebert RN - 01/07/2022 3:42 PM EDT [facility] Provider Action/FYI: Pt reports she is doing good, states she feels about the same, has been eating a bland diet and taking Phenergan as prescribed, denies uti symptoms. Pt states she will be calling to schedule with GI and urology when she feels better. Pt had no questions, concerns, needs at this time. Contact made with patient: Yes Patient identified by name and . Discussed care with patient It s nice talking to you again. As a reminder, this is our bi-weekly check-in where I will be asking you questions about your health. This will only take a few minutes of your time. Is this a good time? Yes Symptoms What Chronic Disease(s) does the patient have: COPD Do you check your blood pressures at home? No Do you have new or worse shortness of breath with activity? No Do you have new or worsening cough? No Do you have new or worsening wheezing? No Do you need to use your rescue (Albuterol) inhaler or nebulizer more often than normal? No Are you having any other symptoms that your PCP needs to know about? No Symptom Escalation The patient required an escalation for symptom(s)? No Medications Do you have any questions about taking your medication or which medications you should be on? No Do you need any medication refills at this time, including any of the medications you might take only when needed? No Social We would like to make sure you have what you need so that your basic needs are met- including your personal safety, food, housing and medications? Would you like to speak with a social work sales team member to help give you support for any of these needs? No It can be normal to feel anxious or down during a time like this. Would you like to talk to a mental health professional about how you have been feeling? No Closing Thank you for taking the time to talk with me today. We want to work with you to ensure that we arekeeping your medical condition(s) well-controlled and to keep you healthy and out of the doctor's office or hospital. It s also not too late for me to sign you up for automated weekly questionnaires through [employer]. This is an easy way for us to stay connected each week. Are you interested? No, I understand. We can always sign you up in the future if you change your mind. Just as a reminder, will continue to call you every other week to check in on your health. Our calls should take 10-15 minutes or less. Remember, if you have concerns in between our calls, please call your PCP's office right away. Thank you. Enter next patient outreach date for two weeks on the same day of the week as today in the Track PtOutreach and End outreach. documented in this encounterMorrow [facility] Hospital05-16-2022 Miscellaneous Notes* Telephone Encounter - Swathi Jon MA - 01/07/2022 10:51 AM EDT Patient notified. Patient denies any UTI SX at this time. Will call office if any changes. Patient is willing to increase Lipitor. At OV 01/05 PCP sent electronially the increased dose Lipitor 40 MG to pharmacy. Patient will take 2 of the 20 MG until runs out. Swathi Jon MA * Telephone Encounter - Ricci Cole MD - 01/07/2022 10:42 AM EDT Culture showed similar finding to urine here which is that the oral antiboitic she is on is the only one that covers it. If worsens, would have to be admitted for uti. Any current fever, chills, dysuria since on repeat dose of macrobid? Call if any of the above occurs Otherwise. Sugars and lipids are improving, although not perfect. Watch diet. White count is at her baseline. Recommend increasing her lipitor-check if willing * Telephone Encounter - Jaycee Cohn LPN - 01/07/2022 10:32 AM EDT Placed on desk for review. * Telephone Encounter - Ricci Cole MD - 01/07/2022 7:57 AM EDT Can we check if urine culture done last week at [facility] ER is done and get results.? documented in this encounterMorrow [facility] Hospital05-14-2022 History of Present illness Narrative* Ricci Coel MD - 01/05/2022 10:11 AM EDT Patient presents with: ED Follow-up HPI: Patient presents today for office visit for ER follow up. I have not seen the patient since 2019. Difficult history. Large number of complaints. See below. Was recently seen at [facility]. Had urine culture, not complete yet. Showing several organisms. One is >100,000 colonies of gramnegative colonies, lactose patient support associate. ID pending. She was given zofran and naprosyn. Most recent urine culture on 12/18 showed e coli that was fairly resistent but was sensitive to macrobid. All othersensitivities would be IV. Does have a hx of recurrent uti's. 1.She has chronic incontinence that has been there at least since . Urine has not been right since she had a bladder sling placed. Has not see urology since. Recently: no dysuria. No hematuria. Some mild low back pain. No fever. No chills. The keflex mentioned in her er notes was actually in the fall from an ER. 2. Six weeks ago was on doxycycline due to a copd exacerbation from Pulmonary. Breathing still continues to bother her. She sees them again next week. Chronic cough or sputum. She has been on prednisone but not been on it for four to six weeks. 3. Complains of headaches. Has been there for several weeks. Has had them in the past. Is sore over her scalp And down her head. No head injury. No numbness or weakness. Not the worst headache she has ever had. No thunderclap headache. H 4. Has some mild left ear ache on and off but is ok today. 5. HYPERTENSION:bp is up today. No chest pain. No new edema. No new dizziness. 6. COPD Sees Pulmonary at [facility] Alex. 7. Leukocytosis: has seen Dr. Salazar in 2018 for her chronic polycythemia and leukocytosis. Has been high for years. Dr. Salazar felt it was due to her smoking and copd. 8. Has seen Dr. Spicer for chronic gi issues in the past. Had egd in the past at [facility]. Did have a gastric emptying study done. Has to use phenergan. Has chronic nausea. Still on omeprazole. 9. Still seeing psychiatry. Sees counseling center. Says her emotional issues are in part due to all of her physical ailments. 10. Sugars remain up. Is due for labs as well. 11. Is on lipitor but is not wel controlled. She states she has not missed any meds. Component Latest Ref Rng & Units 12/18/2021 WBC 3.70 - 11.00 k/uL 18.16 (H) RBC 3.90 - 5.20 m/uL 5.32 (H) Hemoglobin 11.5 - 15.5 g/dL 15.9 (H) Hematocrit 36.0 - 46.0 % 49.9 (H) MCV 80.0 - 100.0 fL 93.8 MCH 26.0 - 34.0 pg 29.9 MCHC 30.5 - 36.0 g/dL 31.9 RDW-CV 11.5 - 15.0 % 13.8 Platelet Count 150 - 400 k/uL 432 (H) MPV 9.0 - 12.7 fL 10.1 Neut% % 69.0 Abs Neut (ANC) 1.45 - 7.50 k/uL 12.54 (H) Lymph% % 23.5 Abs Lymph 1.00 - 4.00 k/uL 4.27 (H) Thomas% % 5.5 Abs Thomas <0.87 k/uL 0.99 (H) Eosin% % 0.7 Abs Eosin <0.46 k/uL 0.13 Baso% % 0.5 Abs Baso <0.11 k/uL 0.09 Immature Gran % % 0.8 IMMATURE GRANS (ABS) <0.10 k/uL 0.14 (H) NRBC /100 WBC 0.0 Absolute nRBC <0.01 k/uL <0.01 DTYPE Auto Color Yellow Dark Yellow (A) Clarity Clear Slightly Cloudy (A) Glucose, Urine Negative 2+ (A) Bilirubin, Urine Negative Negative Ketones, Urine Negative 1+ (A) Specific [place], Ur 1.005 - 1.030 1.021 Hemoglobin/Blood,Ur Negative Negative pH, Urine 5.0 - 8.0 5.0 Protein, Urine Negative 1+ (A) Urobilinogen Negative Negative Nitrites Negative Positive (A) Leukest Negative 2+ (A) WBC, Urine 0-5 /HPF >25 /HPF (A) RBC, Urine 0-3 /HPF 0-3 /HPF Bacteria None Seen /HPF Many (A) Epithelial Cells /HPF Few Calcium Oxalate Crystals None Seen /HPF Few (A) Protein, Total 6.3 - 8.0 g/dL 7.2 Albumin 3.9 - 4.9 g/dL 4.2 Calcium 8.5 - 10.2 mg/dL 10.4 (H) Bilirubin, Total 0.2 - 1.3 mg/dL 0.3 Alkaline Phosphatase 34 - 123 U/L 88 AST 13 - 35 U/L 27 ALT 7 - 38 U/L 15 Glucose 74 - 99 mg/dL 233 (H) BUN 7 - 21 mg/dL 11 Creatinine 0.58 - 0.96 mg/dL 0.62 Sodium 136 - 144 mmol/L 137 Potassium 3.7 - 5.1 mmol/L 4.3 Chloride 97 - 105 mmol/L 102 CO2 22 - 30 mmol/L 18 (L) Anion Gap 9 - 18 mmol/L 17 eGFR >=60 mL/min/1.73m 100 Cholesterol, Total <200 mg/dL 270 (H) Triglyceride <150 mg/dL 208 (H) HDL Cholesterol >39 mg/dL 61 Non HDL Cholesterol <130 mg/dL 209 (H) Fasting Time hrs 12 VLDL Cholesterol <30 mg/dL 42 (H) TC:HDL Ratio <5.10 4.43 LDL Cholesterol <100 mg/dL 167 (H) LDL:HDL Ratio <2.54 2.74 (H) Lipase 16 - 61 U/L 17 Vitamin D 25 Hydroxy 31.0 - 80.0 ng/mL 5.2 (L) Culture >=100,000 CFU/ml Escherichia coli (A) Seen at er on 01/03/22: Narrative: 66-year-old female presenting with urinary symptoms. She states he does have dysuria but also is having urinary incontinence. This is when she is walking. Patient states she has been treated with Macrobid initially and then treated with Keflex. 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 She does not have a cough or cold symptoms currently. She reports lower suprapubic pain with her urinary symptoms. She had a couple of episodes of diarrhea which she relates to the antibiotics but states he has not had profuse diarrhea. No black or bloody stools. CT abd: IMPRESSION: Fatty infiltration of the liver. No acute abnormality is seen. MEDICATIONS: Current Outpatient Medications Medication Sig promethazine (PHENERGAN) 25 mg tablet Take 1 tablet by mouth every 6 hours as needed. insulin glargine U-300 conc (TOUJEO) 300 unit/mL (1.5 mL) Inject 80 Units subcutaneously every morning. E11.9 albuterol HFA (VENTOLIN HFA) 90 mcg/actuation inhaler Inhale 2 Puffs as instructed every 4 hours asneeded. calcitriol (ROCALTROL) 0.25 mcg capsule Take 1 capsule by mouth once daily. escitalopram oxalate (LEXAPRO) 20 mg tablet Take 20 mg by mouth once daily. albuterol (PROVENTIL) 2.5 mg /3 mL (0.083 %) nebulizer solution Use 3 mL via nebulizer every 4 hours as needed for wheezing/shortness of breath. busPIRone (BUSPAR) 10 mg tablet Take 1 tablet by mouth three times daily. omeprazole (PRILOSEC) 20 mg capsule Take 2 capsules by mouth daily before breakfast. buPROPion XL (WELLBUTRIN XL) 150 mg 24 hr tablet Take 1 tablet by mouth once daily. atorvastatin (LIPITOR) 20 mg tablet Take 1 tablet by mouth daily at bedtime. For cholesterol. Cholecalciferol-Soy Isoflavone 2,000-64 unit-mg tab Take 2,000 Units by mouth once daily. azelastine (ASTELIN) 0.1% nasal spray Use 1 [place] in each nostril twice daily. scopolamine (TRANSDERM-SCOP) patch 1.5 mg/72 hr (1 mg over 3 days) Apply 1 Patch as directed every 72 hours. Apply patch to skin behind ear 4hrs prior to travel. gabapentin (NEURONTIN) 400 mg capsule Take 1 capsule by mouth three times daily for 90 days. insulin lispro (HUMALOG KWIKPEN INSULIN) 100 unit/mL Inject 12 Units subcutaneously three times daily before meals. And sliding scale up to 38 units tid. Insulin [place], Disposable, 32 gauge x 5/16 ndle Use four times daily with insulin blood sugar diagnostic (BLOOD GLUCOSE TEST) test strip Test blood sugar(s) 3 daily. Dx: Type 2 DM -Uncontrolled E11.65 Insulin: Yes promethazine (PHENERGAN) 25 mg suppository 1 Suppository by RECTAL route every 6 hours as needed. fluticasone-vilanterol (BREO ELLIPTA) 100-25 mcg/dose inhaler Inhale 1 Inhalation as instructed once daily. QUEtiapine XR (SEROQUEL XR) 300 mg 24 hr tablet Take 300 mg by mouth daily at bedtime. carvedilol (COREG) 6.25 mg tablet Take 1 tablet by mouth twice daily. Blood Pressure Monitor 1 Each once daily. Blood Pressure Monitor EXLARGE BLOOD PRESSURE CUFF MONITOR KIT checking bp 4 times daily lancets 33 gauge TEST BLOOD SUGARS 3 TIMES A DAY, E11.9 No current facility-administered medications for this visit. ALLERGIES: ALLERGIES Allergen Reactions Chantix [Vareniclin* Mental Status Change Penicillins Hives Sulfa (Sulfonamide * Rash, Other: See Comments Blisters and sore in throat PAST MEDICAL HISTORY Diagnosis Date Chronic airway obstruction, not elsewhere classified Degeneration of cervical intervertebral disc related to neck injury Depressive disorder, not elsewhere classified DM (diabetes mellitus) (HCC) Fibromyalgia Migraine with aura, without mention of intractable migraine without mention of status migrainosus Panic disorder without agoraphobia had hx of failed urine screen Recurrent UTI Tobacco use disorder PAST SURGICAL HISTORY Procedure Laterality Date CHOLECYSTECTOMY ESOPHAGOGASTRODUODENOSCOPY TRANSORAL DIAGNOSTIC 12/06/2015 EGD LIG/TRNSXJ FLP TUBE ABDL/VAG APPR UNI/BI Tubal ligation PAST SURGICAL HISTORY OF Left 03/2014 ANKLE FRACTURE REPAIR S SLING BLADDER 2012 & TOTAL ABDOMINAL HYSTERECT W/WO RMVL TUBE OVARY Hysterectomy, REJI FAMILY HISTORY Problem Relation Age of Onset Hypertension Mother Social History Tobacco Use Smoking status: Current Some Day Smoker Packs/day: 1.00 Years: 40.00 Pack years: 40.00 Types: Cigarettes Smokeless tobacco: Never Used Tobacco comment: 3 cigarettes daily? Vaping Use Vaping Use: Never used Substance Use Topics Alcohol use: No Drug use: No Reviewed current medications, allergies, past medical history, surgical history, family history andsocial history today. REVIEW OF SYSTEMS All other reviewed and negative other than HPI. HEALTH MAINTENANCE: Reviewed health maintenance issues today and recommended the following in detail. COVID-19 VACCINE-Discussed risks and benefits of covid vaccine. Recommended they consider it. COLORECTAL CANCER SCREENING Never done DILATED RETINAL-up to date. MAMMOGRAM due on 05/18/2020 HBA1C due on 03/25/2021 URINE ALBUMIN:CREATININE RATIO due on 09/01/2021 VITALS: BP 168/82 Pulse 96 Temp 36.7 C (98.1 F) (Tympanic) Wt 108 kg (238 lb) BMI 37.27 kg/m Last 4 Encounter Wt Readings: Date: Wt: 12/18/2021 108 kg (238 lb) 11/22/2021 108.4 kg (239 lb) 09/07/2021 111.1 kg (245 lb) 05/21/2021 112 kg (247 lb) PHYSICAL EXAMINATION: General appearance: has emesis basin. Well hydrated. Skin: Skin color, texture, turgor normal, no suspicious rashes or lesions Head: Normocephalic, no masses, lesions, tenderness or abnormalities Back: Normal exam Lungs: Lungs clear to auscultation. No wheezing, rhonchi, rales Heart: RRR without murmur, gallop, or rubs. No ectopy Abdomen: Normal abdominal exam, Abdomen soft, non-tender. Bowel sounds normal. No masses, organomegaly Extremities: No deformities, edema, skin discoloration, clubbing or cyanosis. Good capillary refill. Musculoskeletal: No joint swelling, deformity, or tenderness Peripheral pulses: Normal Neuro: Negative. ASSESSMENT/PLAN: 1. Nausea - ICD9: 787.02, ICD10: R11.0 (primary diagnosis) - her last gastric emptying was not delayed but one could wonder about gastroparesis. Reinforced need to follow up with gi. Suggested she see Dr. Mac. - CONSULT TO GASTROENTEROLOGY 2. Other chronic gastritis without hemorrhage - ICD9: 535.10, ICD10: K29.50 - CONSULT TO GASTROENTEROLOGY 3. Urinary incontinence, unspecified type - ICD9: 788.30, ICD10: R32 - reinforced that I some of her symptoms are more likely not uti related. Wait on final culture at [facility] - CONSULT TO UROLOGY 4. History of recurrent UTIs - ICD9: V13.02, ICD10: Z87.440 - as above. - CONSULT TO UROLOGY - NITROFURANTOIN MONOHYDRATE & MACROCRYSTAL 100 MG ORAL CAP 5. Migraine with aura and without status migrainosus, not intractable - ICD9: 346.00, ICD10: G43.109 - call if worsens. 6. Leukocytosis, unspecified type - ICD9: 288.60, ICD10: D72.829 Reduce smoking. Back to hematology if worsens - CBC + DIFF - PATHOLOGIST INTERPRETATION WITH CBC AND DIFF 7. Secondary polycythemia - ICD9: 289.0, ICD10: D75.1 - as above. 8. Tobacco use - ICD9: 305.1, ICD10: Z72.0 - Cessation encouraged. - Physiologic and physical aspects of tobacco addiction as well as strategies for quitting were discussed. - Counseling was given focusing on the harmful effects of this addiction especially given the patient's medical condition(s) which will be worsened because of the chemicals in tobacco. 9. Primary hypertension - ICD9: 401.9, ICD10: I10 - suboptimal control - Follow up in 1 month for BP recheck. - Goal of BP <130/80 10. Hyperlipidemia, mixed - ICD9: 272.2, ICD10: E78.2 - suboptimal control - Increase dose of atorvastatin (Lipitor) 40 mg - ATORVASTATIN 40 MG TABLET - HEPATIC FUNCTION PNL-labs in six weeks. - LIPID PANEL BASIC 11. Depression, major, recurrent, in complete remission (HCC) - ICD9: 296.36, ICD10: F33.42 - ? Not sure how much is contributing to how she is feeling. 12. Uncontrolled type 2 diabetes mellitus with hyperglycemia (HCC) - ICD9: 250.02, ICD10: E11.65 - check labs. - ALBUMIN/CREAT RATIO RND UR - HGB A1C 13. Screening breast examination - ICD9: V76.10, ICD10: Z12.39 - Follow up for annual exam in one year. - JANELL SCREENING 14. Screening for colon cancer - ICD9: V76.51, ICD10: Z12.11 - CONSULT TO GASTROENTEROLOGY 15. Pyuria - ICD9: 791.9, ICD10: R82.81 - NITROFURANTOIN MONOHYDRATE & MACROCRYSTAL 100 MG ORAL CAP Ricci Cole RTO in eight weeks and prn. documented [facility] Miscellaneous Notes* Telephone Encounter - Jaycee Cohn LPN - 01/03/2022 1:01 PM EDT Patient notified and scheduled for Friday. * Telephone Encounter - Ricci Cole MD - 01/03/2022 11:17 AM EDT Naproxen is just aleve otc. Can use that. Use phenergan instead of zofran. Is she able to come in on my schedule on Friday? * Telephone Encounter - Sue Quinonez RN - 01/03/2022 10:59 AM EDT Patient declined an appointment on Friday d/t no transportation. Patient scheduled for Sunday 01/07.Patient reports that the two medications ER ordered (naproxen and zofran) aren't covered by insurance. Patient requesting refill for phenergan and something for stomach cramping/ pain. No refills on current phenergan prescription at pharmacy. Order pended. Please review and advise, Sue Quinonez RN * Telephone Encounter - Kash Ledesma LPN - 01/02/2022 2:56 PM EDT TC to pt, pt not home from ER yet, spoke with pt . Advised pt that Dr. Cole would like for Ivet to be seen in the office Friday. Pt will return call to office - see Dr. Cole's note below- ok to offer walk in or open slot. Kash Ledesma LPN * Telephone Encounter - Ricci Cole MD - 01/02/2022 1:58 PM EDT Spoke with Er doctor. No issues found on Er exam other than white count remains elevated. Has been up several times in the past. (?? Infectious vs other etiology). Put her into an appt Friday am. My open spot or my walk in. documented in this encounterM[facility]05-[facility]22 Miscellaneous Notes* Telephone Encounter - Kash Ledesma LPN - 01/02/2022 2:57 PM EDT See phone note from 01/02- pt returned to ER and is to follow up with PCP on 01/04. * Telephone Encounter - Kash Ledesma LPN - 01/01/2022 9:59 AM EDT TC to pt, no answer, reached recording that states the voicemail box is not currently accepting messages. Kash Ledesma LPN * Telephone Encounter - Yasmany Holland PA-C - 12/31/2021 6:30 PM EDT Needs to be rechecked by one of us Thanks, Edwin Holland PA-C * Telephone Encounter - Sho Bermeo Ma - 12/27/2021 9:09 AM EDT Spoke to pt, she states she feels about the same. She states that sometimes during the day she feels really bad at times later in the day. The migraines are the same. No worsening SOB. Denies runningany fevers currently, but has had a few nights with low grade fever. No chest pains or dizziness. She is staying hydrated. She did have some dry heaving and nausea last night, states she has had thissince being sick. Today is her last day of antibiotics, has not noticed any difference since being on antibiotic. She went to the ER Friday but it was so busy she couldn't stand and wait any longer. Uses [facility]. Sho Bermeo Ma * Telephone Encounter - Marylu Yeung Ma - 12/25/2021 12:29 PM EDT Aleksandra mitch busy * Telephone Encounter - Marylu Yeung Ma - 12/24/2021 9:47 AM EDT Edwin requesting on an update on how patient is feeling. TC to patient. No answer, no voicemail. Marylu Yeung Ma documented in this encounterM[facility]05-[facility]22 History of Present illness Narrative* Padmini Moura MD - 12/31/2021 10:04 AM EDT [facility] Distance Health Note (for [employer] community monitoring and [facility] HC escalations) Adult seen for Monitoring Track: Chronic Disease Management Contacted by phone, [employer], [employer], [employer], [employer], [employer], [facility], other: phone called at 10:08 am called at 10:42 am History of present illness: 66 yo F symptom onset for [address] Holland at [facility], told had a UTI, bronchitis on Macrobid 12/20/21-12/27/21 on 12/18 seen in office labs from [facility] show elevated WBC, UA +, urine culture + for e. coli PCP recommended got to ED she went but left before being seen + fever 99.9 last night + dysuria, + frequency, + incontinence + flank pain on R > L urine is cloudy, smelly, has an odor has COPD has nebulizer did 3 times yesterday on aerosols every 4 hours SOB with activity no SOB at rest. is wheezing + green sputum No numbness, tingling, no COVID vaccines Past medical history, past surgical history, family history and social history reviewed and updatedas indicated in EMR. Past Medical History PAST MEDICAL HISTORY Diagnosis Date Chronic airway obstruction, not elsewhere classified Degeneration of cervical intervertebral disc related to neck injury Depressive disorder, not elsewhere classified DM (diabetes mellitus) (HCC) Fibromyalgia Migraine with aura, without mention of intractable migraine without mention of status migrainosus Panic disorder without agoraphobia had hx of failed urine screen Recurrent UTI Tobacco use disorder : REVIEW OF SYSTEMS: Review of Systems see HPI VITAL SIGNS: (if available) There were no vitals taken for this visit. Physical Exam (if video visit was performed) Physical Exam NA Assessment/Plan: recurrent UTIs, likely pyelonephritis, COPD exacerbation Plan her PCP recommended go to ED, I think that is reasonable considering her failure of outpatienttherapy and symptoms of COPD and UTI are worsening Disposition: Patient instructed to go to the ED A total of 12 minutes was spent providing medical care using telemedicine. This patient encounter involved the screening or treatment of novel coronavirus infection (COVID-19). SIGNATURE: Padmini Moura MD PATIENT NAME: Ivet Valero DATE: December 31, 2021 documented in this encounterM[facility]04-28-2022 Miscellaneous Notes* Telephone Encounter - Yasmany Holland PA-C - 12/20/2021 6:40 PM EDT Phoned and advised: WBC is elevated indicating acute infection with increased granulocytes and immature WBCs indicatingmore serious infection. She was started on Macrobid earlier today for UTI see other note. If any worse, should go to ER. Please advise calcium elevated mildly- need to check PTH Vit D is severely low: stop current vit D replacement and start calcitriol 0.25mg daily. Recheck vit D level in 3 months. Glucose remains elevated: is she using sliding scale to cover? Other chems WNL including lipase. Cholesterol is up somewhat States no vomiting but nausea bad. No diarrhea. No fever. Still some dysuria. Started Ma crobid earlier. Red flags for ED reviewed: she acknowledged. States she is covering 13-14u per meal. Will mychart progress tomorrow Edwin Holland PA-C documented in this encounterM[facility]04-28-2022 Miscellaneous Notes* Telephone Encounter - Marylu Yeung Ma - 12/20/2021 2:25 PM EDT Patient was made aware of the results. Patient verbalizes understanding. Marylu Yeung Ma * Telephone Encounter - Yasmany Holland PA-C - 12/20/2021 1:38 PM EDT Please advise UC + E. Coli Sensitive to macrobid in addition to doxycycline Push fluids The following approved medication requests have been transmitted electronically. Signed Prescriptions Disp Refills nitrofurantoin monohydrate and macrocrystal (MACROBID) 100 mg capsule 14 capsule 0 Sig: Take 1 capsule by mouth twice daily with meals for 7 days. Authorizing Provider: Yasmany HOLLAND PA-C documented in this encounterM[facility]04-26-2022 History of Present illness Narrative* Yasmany Holland PA-C - 12/18/2021 10:22 AM EDT 66 year old female with c/o feeling ill just everything States continue s to be ill from last June. Fatigue. Mildly feverish in evenings, tmax 99F Sits most of the day. Headache all over. No vision changes. No issues with ear pain or hearing. Sinus congestion without facial pain. Stuffy, not dripping. Blowing out clear to light yellow. No sores in mouth or tongue. Off and on mild sore throat. Tender lymph nodes on left. No neck pain. Coughing constantly, a lot of production nando to yellow to light green as times. Breathing: feels heavy, worse with activity. No chest pain. Feels SOB Albuterol MDI sometimes every 4 hours, at least 2-3 times a day Upper belly hurts. Kidneys are off the chart- indicating lumbar muscle areas. Appetite normal. No heart burn, rare acid reflux. 4 bottles of water, coffee x 2 cups Very nauseated, no vomiting except dry heaves from cough. Urinating 24/7, longest interval 45-60 minutes, shortest 15-20 minutes Stools pretty normal A little diarrhea after starting ATB. Muscles sore from not moving a lot. 3/31/22 visit with Joyce Perry PA-C Current Rx: Albuterol Nebs 0.083% doing twice a day Albuterol MDI Fluitcasone -vilanterol 100-25mcg/ dose on e puff daily Started doxycycline 100mg twice a day + Prednisone 40mg daily x 5 completed without change. Diabetes Mellitus Type 2: Current medications: humalog 12u three times daily + meal coverage insulin glargine 80u daily Taking medication as directed consistently? Yes Medical Issues / Complications: hypertension and hyperlipidemia Checking blood sugars at home? Yes- didn't bring list Watching diet? Yes Physical Activity: Sedentary Hypoglycemic spells? No Any visual disturbance? No Chest pain? As above New numbness, tingling or loss of sensation? No Any recent foot problems, sores or rashes? No Any recent or sudden weight loss? No Change in urination? Yes. If yes: above Any recent illness? Yes Last eye exam: up to date. Last foot exam: up to date. HBA1C: Hemoglobin A1C (%) Date Value 12/23/2020 8.3 09/01/2020 8.5 ) CMP: Glucose 221 12/23/2020 BUN 8 12/23/2020 Creatinine 0.54 12/23/2020 Sodium 137 12/23/2020 Potassium 4.4 12/23/2020 Chloride 104 12/23/2020 CO2 20 12/23/2020 Protein, Total 6.3 09/01/2020 Albumin 3.8 09/01/2020 Calcium 9.2 12/23/2020 Alkaline Phosphatase 53 09/01/2020 Bilirubin, Total 0.3 09/01/2020 AST 17 09/01/2020 ALT 15 09/01/2020 Last 2 Encounter Wt Readings: Date: Wt: 12/18/2021 108 kg (238 lb) 11/22/2021 108.4 kg (239 lb) Smoking but cutting back 5/ day No ETOH Marijuana use: once in a great while, last a month ago HISTORIES FAMILY HISTORY Problem Relation Age of Onset Hypertension Mother PAST MEDICAL HISTORY Diagnosis Date Chronic airway obstruction, not elsewhere classified Degeneration of cervical intervertebral disc related to neck injury Depressive disorder, not elsewhere classified DM (diabetes mellitus) (HCC) Fibromyalgia Migraine with aura, without mention of intractable migraine without mention of status migrainosus Panic disorder without agoraphobia had hx of failed urine screen Recurrent UTI Tobacco use disorder PAST SURGICAL HISTORY Procedure Laterality Date CHOLECYSTECTOMY ESOPHAGOGASTRODUODENOSCOPY TRANSORAL DIAGNOSTIC 12/06/2015 EGD LIG/TRNSXJ FLP TUBE ABDL/VAG APPR UNI/BI Tubal ligation PAST SURGICAL HISTORY OF Left 03/2014 ANKLE FRACTURE REPAIR S SLING BLADDER 2012 & TOTAL ABDOMINAL HYSTERECT W/WO RMVL TUBE OVARY Hysterectomy, REJI Social History Tobacco Use Smoking status: Current Some Day Smoker Packs/day: 1.00 Years: 40.00 Pack years: 40.00 Types: Cigarettes Smokeless tobacco: Never Used Tobacco comment: 3 cigarettes daily? Vaping Use Vaping Use: Never used Substance Use Topics Alcohol use: No Drug use: No ACTIVE PROBLEM LIST Tobacco Use Disorder Degeneration of Cervical Intervertebral Disc Chronic Bronchitis (Hcc) Depressive Disorder, Not Elsewhere Classified Persistent Disorder of Initiating Or Maintaining Sleep Migraine With Aura Panic Disorder Without Agoraphobia Fibromyalgia History of Recurrent [place] Uncontrolled Type 2 Diabetes Mellitus With Hyperglycemia (Hcc) Secondary Polycythemia Depression, Major, Recurrent, in Complete Remission (Hcc) Hyperlipidemia, Mixed Chronic Cough Obesity, Class II, Bmi 35-39.9 Sob (Shortness of Breath) Acute Bronchitis With Chronic Obstructive Pulmonary Disease (Copd) ([facility]) Chest Pressure Rash Primary Hypertension Chronic Gastritis Without Bleeding Current Outpatient Medications Medication Sig Dispense Refill escitalopram oxalate (LEXAPRO) 20 mg tablet Take 20 mg by mouth once daily. insulin glargine U-300 conc (TOUJEO) 300 unit/mL (1.5 mL) Inject 80 Units subcutaneously every morning. E11.9 8 Pen 0 promethazine (PHENERGAN) 25 mg tablet Take 1 tablet by mouth every 6 hours as needed. 30 tablet 2 albuterol (PROVENTIL) 2.5 mg /3 mL (0.083 %) nebulizer solution Use 3 mL via nebulizer every 4 hours as needed for wheezing/shortness of breath. 120 Vial 5 busPIRone (BUSPAR) 10 mg tablet Take 1 tablet by mouth three times daily. 90 tablet 3 omeprazole (PRILOSEC) 20 mg capsule Take 2 capsules by mouth daily before breakfast. 60 capsule 0 albuterol HFA (VENTOLIN HFA) 90 mcg/actuation inhaler Inhale 2 Puffs as instructed every 4 hours asneeded. 18 g 2 buPROPion XL (WELLBUTRIN XL) 150 mg 24 hr tablet Take 1 tablet by mouth once daily. atorvastatin (LIPITOR) 20 mg tablet Take 1 tablet by mouth daily at bedtime. For cholesterol. 30 tablet 5 Cholecalciferol-Soy Isoflavone 2,000-64 unit-mg tab Take 2,000 Units by mouth once daily. 90 tablet3 azelastine (ASTELIN) 0.1% nasal spray Use 1 [place] in each nostril twice daily. 6 mL 1 scopolamine (TRANSDERM-SCOP) patch 1.5 mg/72 hr (1 mg over 3 days) Apply 1 Patch as directed every 72 hours. Apply patch to skin behind ear 4hrs prior to travel. 10 Patch 1 gabapentin (NEURONTIN) 400 mg capsule Take 1 capsule by mouth three times daily for 90 days. 90 capsule 2 insulin lispro (HUMALOG KWIKPEN INSULIN) 100 unit/mL Inject 12 Units subcutaneously three times daily before meals. And sliding scale up to 38 units tid. 8 Pen 0 Insulin [place], Disposable, 32 gauge x 5/16 ndle Use four times daily with insulin 200 Each 0 promethazine (PHENERGAN) 25 mg suppository 1 Suppository by RECTAL route every 6 hours as needed. 24 Suppository 2 fluticasone-vilanterol (BREO ELLIPTA) 100-25 mcg/dose inhaler Inhale 1 Inhalation as instructed once daily. 1 Each 5 QUEtiapine XR (SEROQUEL XR) 300 mg 24 hr tablet Take 300 mg by mouth daily at bedtime. carvedilol (COREG) 6.25 mg tablet Take 1 tablet by mouth twice daily. 180 tablet 3 lancets 33 gauge TEST BLOOD SUGARS 3 TIMES A DAY, E11.9 100 Each 3 blood sugar diagnostic (BLOOD GLUCOSE TEST) test strip Test blood sugar(s) 3 daily. Dx: Type 2 DM -Uncontrolled E11.65 Insulin: Yes 100 Strip 0 Blood Pressure Monitor 1 Each once daily. 1 Kit 1 Blood Pressure Monitor EXLARGE BLOOD PRESSURE CUFF MONITOR KIT checking bp 4 times daily 1 Kit 0 No current facility-administered medications for this visit. COVID-19 VACCINE(1) Never done HIV SCREENING Never done BP CONTROLLED (<130/80) Never done DTAP,TDAP,TD(1 - Tdap) Never done COLORECTAL CANCER SCREENING Never done SHINGRIX VACCINE(1 of 2) Never done LUNG CANCER SCREENING Never done DILATED RETINAL EXAM due on 04/12/2017 MAMMOGRAM due on 05/18/2020 HBA1C due on 03/25/2021 URINE ALBUMIN:CREATININE RATIO due on 09/01/2021 LDL CHOLESTEROL due on 09/01/2021 EXAM: BP 160/78 Pulse 103 Temp 36.9 C (98.5 F) (Tympanic) Resp 24 Wt 108 kg (238 lb) SpO2 97% BMI 37.27 kg/m Pleasant obese adult woman sighing frequently, expressing her fatigue frequently, non-toxic appearance, in no acute distress. Alert and oriented all spheres. Normal affect and cognition. Speech normal. No deficits to learning or comprehension. Skin warm, dry, pink to lips and nailbeds. Normal turgor. Respirations regular and unlabored. HEENT: NCAT. No scleral icterus or conjunctival injection. TM's clear. Nose and oropharynx free from injection or lesion. Oral membranes dry, pink. No cervical lymph nodes. Thyroid non-tender, no masses, or enlargement. Carotids pulses 2+/4+ without bruits. No JVD with HOB at 30 degrees. Chest is normal shape. Lungs are clear to all brasher with good air exchange through out. HRRR without murmur or gallop. No lifts, heaves, or rubs. Abdomen: active bowel sounds throughout, soft, nontender, no masses or organomegaly. No CVAT. Tender lumbar paravertebral muscles- area she thought was kidney. Extrem: no clubbing or cyanosis. Edema: none. Extremities are warm and pink with prompt capillary refill. Last 14 BP Last 14 Encounter BP Readings: Date: BP: 12/18/2021 160/78 11/22/2021 168/98 09/07/2021 130/88 04/11/2021 138/80 02/22/2021 130/78 01/08/2021 154/80 12/11/2020 168/99 12/11/2020 166/76 12/07/2020 150/82 08/29/2020 138/82 08/15/2020 132/70 07/27/2020 144/74 06/01/2020 128/80 06/01/2020 138/82 ASSESSMENT/PLAN: 1. 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 Fatigue, unspecified type - ICD9: 780.79, ICD10: R53.83 - URINALYSIS, WITH MICROSCOPIC - URINE CULTURE 3. SOB (shortness of breath) - ICD9: 786.05, ICD10: R06.02 - XR CHEST 2V FRONTAL/LAT 4. Mixed simple and mucopurulent chronic bronchitis (HCC) - ICD9: 491.1, ICD10: J41.8 - XR CHEST 2V FRONTAL/LAT 5. Depression, major, recurrent, in complete remission (HCC) - ICD9: 296.36, ICD10: F33.42 Difficult to assess due to current illness complex. 6. Fibromyalgia - ICD9: 729.1, ICD10: M79.7 7. Hyperlipidemia, mixed - ICD9: 272.2, ICD10: E78.2 - to be determined upon return of lab results - Continue current medication. - Encouraged following a low fat, low cholesterol diet. - Discussed the benefits of regular aerobic exercise and weight loss. - COMP METABOLIC PANEL - VITAMIN D 25 HYDROXY - LIPID PANEL BASIC 8. Panic disorder without agoraphobia - ICD9: 300.01, ICD10: F41.0 Persistent issues: address in next visit 9. Primary hypertension - ICD9: 401.9, ICD10: I10 - poor control, likely r/t to current illness/ symptoms, stress - Continue current medication(s) - Encouraged dietary sodium restriction/DASH diet - Recommended regular aerobic exercise. - Recommend home blood pressure monitoring, to bring results in on next visit - Recheck in 4 weeks, sooner should new symptoms or problems arise. - Goal of BP <130/80 10. Secondary polycythemia - ICD9: 289.0, ICD10: D75.1 Follow lab 11. Tobacco use disorder - ICD9: 305.1, ICD10: F17.200 - Cessation encouraged. - Physiologic and physical aspects of tobacco addiction as well as strategies for quitting were discussed. - Counseling was given focusing on the harmful effects of this addiction especially given the patient's medical condition(s) which will be worsened because of the chemicals in tobacco. - XR CHEST 2V FRONTAL/LAT 12. Uncontrolled type 2 diabetes mellitus with hyperglycemia (HCC) - ICD9: 250.02, ICD10: E11.65 Control uncertain. - Continue current medications - CBC + DIFF - COMP METABOLIC PANEL - ALBUMIN/CREAT RATIO RND UR 13. Generalized abdominal pain - ICD9: 789.07, ICD10: R10.84 Low suspicion surgical issue. Consider imaging after lab review as indicated - CBC + DIFF - COMP METABOLIC PANEL - LIPASE BLD 14. Low vitamin D level - ICD9: 790.6, ICD10: R79.89 - VITAMIN D 25 HYDROXY 15. Urinary frequency - ICD9: 788.41, ICD10: R35.0 recurrent - UA positive for meng esterase and hgb - Patient education for prevention given - UA DIP, URINE (POC) - URINALYSIS, WITH MICROSCOPIC - URINE CULTURE 16. Intermittent chest pain - ICD9: 786.50, ICD10: R07.9 Atypical chest pain Low suspicion cardiac due to area lateral chest - ECG COMPLETE 17. Disorder of cartilage, unspecified - ICD9: 733.90, ICD10: M94.9 - VITAMIN D 25 HYDROXY 18. Nausea - ICD9: 787.02, ICD10: R11.0 - ONDANSETRON HCL 2 MG/ML INTRAVENOUS SOLUTION f/u closely as results return Yasmany Holland PA-C documented [facility] History of Present illness Narrative* Sho Hebert RN - 12/18/2021 9:48 AM EDT [facility] TELEPH[facility] OUTREACH Provider Action/FYI: Contact made with patient: No - Unable to leave message Entered next patient outreach date for the following business day, if third call please enter next outreach date for one week in the Track Pt. Outreach - End Outreach documented in this encounterM[facility]04[facility]20-[facility]22 Miscellaneous Notes* Telephone Encounter - Kaylyn Kaplan Ma - 12/12/2021 9:34 AM EDT JOANNA 09/07/21 NOV 12/18/21 Kaylyn Kaplan Ma * Telephone Encounter - Liseth Bell Pss - 12/12/2021 9:22 AM EDT Patient has been identified by name and date of : Yes Pending Prescriptions Disp Refills INSULIN GLARGINE (U-300) CONC. 300 UNIT/ML (1.5 ML) SUBCUTANEOUS PEN 15Pen 6 Sig: Inject 80 Units subcutaneously every morning. E11.9 JERE: No RX INSTRUCTIONS: Patient aware RX will be sent to pharmacy. No need to notify patient. Liseth Bell Pss documented in this encounterM[facility]04-14-[facility]22 History of Present illness Narrative* Sho Hebert RN - 12/06/2021 12:51 PM EDT [facility] TELEPHONIC OUTREACH Provider Action/FYI: Second attempt, no answer, no voicemail Contact made with patient: No - Unable to leave message Entered next patient outreach date for the following business day, if third call please enter next outreach date for one week in the Track Pt. Outreach - End Outreach * Sho Hebert RN - 12/06/2021 9:08 AM EDT [facility] TELEPHONIC OUTREACH Provider Action/FYI: Call to patient to follow up from 12/03/21 outreach encounter in regards to patient not feeling better after completing steroids and antibiotic. No answer, no voicemail. Will try again later today. Contact made with patient: No - Unable to leave message Entered next patient outreach date for the following business day, if third call please enter next outreach date for one week in the Track Pt. Outreach - End Outreach documented in this encounterM[facility]04[facility] History of Present illness Narrative* Sho Hebert RN - 12/03/2021 1:27 PM EDT [facility] TELEPHONIC OUTREACH Provider Action/FYI: Pt seen by pulmonary 11/22, prescribed antibiotic and steroids. Pt states she feels she is not any better, states she is still having green phlegm along with chills and body aches, but denies fever, chest pain, sob, worsening cough, wheeze or increased inhaler/nebulizer use. Pt speaking in full sentences with no sounds of distress. Pt states she is going to call pulmonary office today to follow up, this nurse was going to offer to nelida virtualist, pt had to cut the call short, stated she was getting a call in from her daughter. Encouraged patient to call pulmonary office after she gets off the phone with her daughter. Pt agreeable. Encounter not routed to pss to schedule as patient will call pulmonary. Contact made with patient: Yes Patient identified by name and . Discussed care with patient It s nice talking to you again. As a reminder, this is our bi-weekly check-in where I will be asking you questions about your health. This will only take a few minutes of your time. Is this a good time? Yes Symptoms What Chronic Disease(s) does the patient have: COPD Do you check your blood pressures at home? No Do you have new or worse shortness of breath with activity? No Do you have new or worsening cough? No Do you have new or worsening wheezing? No Do you need to use your rescue (Albuterol) inhaler or nebulizer more often than normal? No Are you having any other symptoms that your PCP needs to know about? Yes Symptom Escalation The patient required an escalation for symptom(s)? Yes, Visit (Telehealth, Virtual, or In Office) with PCP within 48 hours - Routed to [facility] [place] [[id number]] Medications Do you have any questions about taking your medication or which medications you should be on? No Do you need any medication refills at this time, including any of the medications you might take only when needed? No Social We would like to make sure you have what you need so that your basic needs are met- including your personal safety, food, housing and medications? Would you like to speak with a social work sales team member to help give you support for any of these needs? No It can be normal to feel anxious or down during a time like this. Would you like to talk to a mental health professional about how you have been feeling? No Closing Thank you for taking the time to talk with me today. We want to work with you to ensure that we arekeeping your medical condition(s) well-controlled and to keep you healthy and out of the doctor's office or hospital. It s also not too late for me to sign you up for automated weekly questionnaires through [employer]. This is an easy way for us to stay connected each week. Are you interested? No, I understand. We can always sign you up in the future if you change your mind. Just as a reminder, will continue to call you every other week to check in on your health. Our calls should take 10-15 minutes or less. Remember, if you have concerns in between our calls, please call your PCP's office right away. Thank you. Enter next patient outreach date for two weeks on the same day of the week as today in the Track PtOutreach and End outreach. documented in this encounterM[facility]2022 Miscellaneous Notes* Telephone Encounter - Kareen Lam - 11/29/2021 12:15 PM EDT Patient has been identified by name and date of : Yes Pending Prescriptions Disp Refills PROMETHAZINE 25 MG TABLET 30 tablet 2 Sig: Take 1 tablet by mouth every 6 hours as needed. JERE: No JOANNA-09/07/21 Labs-12/23/20 NOV-12/18/21 med filled 07/24/21 RX INSTRUCTIONS: Patient aware RX will be sent to pharmacy. No need to notify patient. Kareen Lam documented in this encounterM[facility]03-31-2022 History of Present illness Narrative* Joyce Perry PA-C - 11/22/2021 1:30 PM EDT [facility] [place], 11/22/2021: Name: Ivet Valero : 1955 The patient is here today by herself. HPI: Ivet Valero is a 66 yo female with pmh significant for fibromyalgia, DM, migraines, and COPD. Current daily smoker. 40 pack years. The patient is here for follow up of COPD. Since the last Pulmonary Clinic visit 05/21/2021, the patient has not required ED care for exacerbation. There has been no hospital admission for exacerbation. Claims to be consistently compliant with prescribed maintenance Rx Breo 1 inhalation daily. States,I don't think it is working for me. Typically uses nebulizer twice daily and albuterol inhaler 2-4 times daily. Daily cough. Expelling green sputum for the last couple of weeks. No hemoptysis. Ocassional wheezing. No dyspnea at rest. Exertional dyspnea seems worse over the last couple of weeks. Difficulty climbing stairs, cooking and cleaning. Gets short of breath showering. No lower extremity edema. PMH: Updated with patient today. FAMH: Updated with patient today. SOCH: Updated with patient today. Currently smoking not quite a pack per day. IMMUNIZATIONS Prevnar 13 - xx Pneumovax - 01/22/2019, 04/25/2013 Influenza - xx COVID-19 - xx ROS: See HPI. Allergies were reviewed and updated, and medications were reconciled with the patient. PHYSICAL EXAMINATION: BP 180/90 (BP Site: Right Arm, BP Position: Sitting, BP Cuff Size: Large Adult) Pulse 101 Wt 108.4 kg (239 lb) SpO2 95% BMI 37.42 kg/m Gen: No acute distress. Cooperative with examination. ENT: Oral hygeine and dentition good. Pharynx clear. No halitosis. Resp: No stridor, accessory respiratory muscle use, supra-sternal or intercostal retractions. No wheezes, crackles. CV: Regular rythm. Heart tones normal. Radial pulses normal. Abd: Non distended. MSK: No kyphoscoliosis. Ext: Warm and well perfused. No clubbing, cyanosis, edema. Skin: No rash, ecchymoses. Neuro: Mental status normal. Affect normal. No tremor. DATA REVIEW: DATE: 06/01/2020 02/29/2020 FVC 3.10, 100% 3.19, 102% FEV1 2.43, 100% 2.44, 99% FEV1/FVC 0.78 0.76 ASSESSMENT/PLAN: 1. COPD with exacerbation (HCC) - ICD9: 491.21, ICD10: J44.1 (primary diagnosis) Patient with change in cough and sputum. Will treat for AECOPD. Doxycycline 1 tablet twice daily for 10 days. Prednisone 2 tablets for 5 days. - DOXYCYCLINE HYCLATE 100 MG TABLET - PREDNISONE 20 MG TABLET 2. COPD with chronic bronchitis (HCC) - ICD9: 491.20, ICD10: J44.9 Patient is not sure if Franck is continuing to work for her. Will assess once she completes treatmentfor AECOPD. Obtain current PFTs at next office visit. - SPIROMETRY BASELINE ONLY 3. Tobacco use disorder, continuous - ICD9: 305.1, ICD10: F17.209 Cessation encouraged. Physiologic and physical aspects of tobacco addiction as well as strategies for quitting were discussed. Counseling was given focusing on the harmful effects of this addiction especially given the patient's medical condition(s) which will be worsened because of the chemicals in tobacco. I addressed the questions of the patient, and she expressed understanding and acceptance of my answers. Joyce Perry PA-C documented in this encounterM[facility]08-18-2021 History of Present illness Narrative* Selena Wright RT(R) - 04/11/2021 1:50 PM EDT Radiology Service Progress Note PATIENT NAME: Ivet Valero DATE OF SERVICE: April 11, 2021 TIME: 1:42 PM PATIENT IDENTITY VERIFICATION COMPLETED USING TWO (2) IDENTIFIERS: Name and Date of confirmedby patient verbally. FALL SCREENING: Has the patient had 2 falls in the last year or 1 fall with injury or currently using an Ambulatory Assistive Device (Walker, Cane, Wheelchair, Crutches, etc.)? No PATIENT GENDER DATA: Female. status: : No status: NO. PATIENT RELEVANT IMPLANT DATA REVIEWED: Not Applicable RADIOLOGY DEPARTMENT: General X-ray: Exam(s) Completed: Chest X-Ray PERIPHERAL IV DATA: Not applicable SIGNED BY: RT Lokesh(R) April 11, 2021 1:42 PM documented in this encounterM[facility]05-10-2021 History of Past illness Narrative* Problem Noted Date Resolved Date Rash 01/01/2021 01/05/2022 Chest pressure 12/11/2020 01/05/2022 Acute bronchitis with chroni c obstructive pulmonary disease (COPD) 10/02/2020 01/05/2022 SOB (shortness of breath) 08/23/20202021 Overview: 11/06/20 NM: no inducible ischemia; No evidence of scarred myocardium; LV size and LVEF NL, RV size and RVSF NL. LVEF % 73 08/15/[address] [facility] [address] vr 112, non-specific ST, CXR NL. CBC WBC 22.8 (chronic elevation attributed to prednisone), hgb 15, hct 45, plt 399. Troponin negative. BNP 36. D-dimer neg 7.47. given reglan for nausea and ativan a few tabs. Was started on Ceftin per data visualization developer a few days prior Chronic cough 01/04/2020 01/05/2022 Persistent disorder of initiating or maintaining sleep 05/25/2008 01/05/2022 Depressive disorder, not elsewhere classified 01/05/2022 documented as of this encounter (statuses as of 01/05/2022) [facility] of Past illness Narrative* Problem Noted Date Resolved Date Rash 01/01/2021 01/05/2022 Chest pressure 12/11/2020 01/05/2022 Acute bronchitis with chroni c obstructive pulmonary disease (COPD) 10/02/2020 01/05/2022 SOB (shortness of breath) 08/23/20202021 Overview: 11/06/20 NM: no inducible ischemia; No evidence of scarred myocardium; LV size and LVEF NL, RV size and RVSF NL. LVEF % 73 08/15/[address] [facility] [address] vr 112, non-specific ST, CXR NL. CBC WBC 22.8 (chronic elevation attributed to prednisone), hgb 15, hct 45, plt 399. Troponin negative. BNP 36. D-dimer neg 7.47. given reglan for nausea and ativan a few tabs. Was started on Ceftin per data visualization developer a few days prior Chronic cough 01/04/2020 01/05/2022 Persistent disorder of initiating or maintaining sleep 05/25/2008 01/05/2022 Depressive disorder, not elsewhere classified 01/05/2022 documented as of this encounter (statuses as of 01/07/2022) [facility] illness Narrative* Problem Noted Date Resolved Date Rash 01/01/2021 01/05/2022 Chest pressure 12/11/2020 01/05/2022 Acute bronchitis with chroni c obstructive pulmonary disease (COPD) 10/02/2020 01/05/2022 SOB (shortness of breath) 08/23/20202021 Overview: 11/06/20 NM: no inducible ischemia; No evidence of scarred myocardium; LV size and LVEF NL, RV size and RVSF NL. LVEF % 73 08/15/[address] [facility] [address] vr 112, non-specific ST, CXR NL. CBC WBC 22.8 (chronic elevation attributed to prednisone), hgb 15, hct 45, plt 399. Troponin negative. BNP 36. D-dimer neg 7.47. given reglan for nausea and ativan a few tabs. Was started on Ceftin per data visualization developer a few days prior Chronic cough 01/04/2020 01/05/2022 Persistent disorder of initiating or maintaining sleep 05/25/2008 01/05/2022 Depressive disorder, not elsewhere classified 01/05/2022 documented as of this encounter (statuses as of 01/07/2022) [facility] Narrative* Problem Noted Date Resolved Date Rash 01/01/2021 01/05/2022 Chest pressure 12/11/2020 01/05/2022 Acute bronchitis with chroni c obstructive pulmonary disease (COPD) 10/02/2020 01/05/2022 SOB (shortness of breath) 08/23/20202021 Overview: 11/06/20 NM: no inducible ischemia; No evidence of scarred myocardium; LV size and LVEF NL, RV size and RVSF NL. LVEF % 73 08/15/[address] [facility] [address] vr 112, non-specific ST, CXR NL. CBC WBC 22.8 (chronic elevation attributed to prednisone), hgb 15, hct 45, plt 399. Troponin negative. BNP 36. D-dimer neg 7.47. given reglan for nausea and ativan a few tabs. Was started on Ceftin per data visualization developer a few days prior Chronic cough 01/04/2020 01/05/2022 Persistent disorder of initiating or maintaining sleep 05/25/2008 01/05/2022 Depressive disorder, not elsewhere classified 01/05/2022 documented as of this encounter (statuses as of 01/22/2022) [facility] Narrative* Problem Noted Date Resolved Date Rash 01/01/2021 01/05/2022 Chest pressure 12/11/2020 01/05/2022 Acute bronchitis with chroni c obstructive pulmonary disease (COPD) 10/02/2020 01/05/2022 SOB (shortness of breath) 08/23/20202021 Overview: 11/06/20 NM: no inducible ischemia; No evidence of scarred myocardium; LV size and LVEF NL, RV size and RVSF NL. LVEF % 73 08/15/[address] [facility] [address] vr 112, non-specific ST, CXR NL. CBC WBC 22.8 (chronic elevation attributed to prednisone), hgb 15, hct 45, plt 399. Troponin negative. BNP 36. D-dimer neg 7.47. given reglan for nausea and ativan a few tabs. Was started on Ceftin per data visualization developer a few days prior Chronic cough 01/04/2020 01/05/2022 Persistent disorder of initiating or maintaining sleep 05/25/2008 01/05/2022 Depressive disorder, not elsewhere classified 01/05/2022 documented as of this encounter (statuses as of 01/22/2022) [facility] Narrative* Problem Noted Date Resolved Date Rash 01/01/2021 01/05/2022 Chest pressure 12/11/2020 01/05/2022 Acute bronchitis with chroni c obstructive pulmonary disease (COPD) 10/02/2020 01/05/2022 SOB (shortness of breath) 08/23/20202021 Overview: 11/06/20 NM: no inducible ischemia; No evidence of scarred myocardium; LV size and LVEF NL, RV size and RVSF NL. LVEF % 73 08/15/[address] [facility] [address] vr 112, non-specific ST, CXR NL. CBC WBC 22.8 (chronic elevation attributed to prednisone), hgb 15, hct 45, plt 399. Troponin negative. BNP 36. D-dimer neg 7.47. given reglan for nausea and ativan a few tabs. Was started on Ceftin per data visualization developer a few days prior Chronic cough 01/04/2020 01/05/2022 Persistent disorder of initiating or maintaining sleep 05/25/2008 01/05/2022 Depressive disorder, not elsewhere classified 01/05/2022 documented as of this encounter (statuses as of 01/23/2022) [facility] Narrative* Problem Noted Date Resolved Date Rash 01/01/2021 01/05/2022 Chest pressure 12/11/2020 01/05/2022 Acute bronchitis with chroni c obstructive pulmonary disease (COPD) 10/02/2020 01/05/2022 SOB (shortness of breath) 08/23/20202021 Overview: 11/06/20 NM: no inducible ischemia; No evidence of scarred myocardium; LV size and LVEF NL, RV size and RVSF NL. LVEF % 73 08/15/[address] [facility] [address] vr 112, non-specific ST, CXR NL. CBC WBC 22.8 (chronic elevation attributed to prednisone), hgb 15, hct 45, plt 399. Troponin negative. BNP 36. D-dimer neg 7.47. given reglan for nausea and ativan a few tabs. Was started on Ceftin per data visualization developer a few days prior Chronic cough 01/04/2020 01/05/2022 Persistent disorder of initiating or maintaining sleep 05/25/2008 01/05/2022 Depressive disorder, not elsewhere classified 01/05/2022 documented as of this encounter (statuses as of 01/30/2022) [facility] Narrative* Problem Noted Date Resolved Date Rash 01/01/2021 01/05/2022 Chest pressure 12/11/2020 01/05/2022 Acute bronchitis with chroni c obstructive pulmonary disease (COPD) 10/02/2020 01/05/2022 SOB (shortness of breath) 08/23/20202021 Overview: 11/06/20 NM: no inducible ischemia; No evidence of scarred myocardium; LV size and LVEF NL, RV size and RVSF NL. LVEF % 73 08/15/[address] [facility] [address] vr 112, non-specific ST, CXR NL. CBC WBC 22.8 (chronic elevation attributed to prednisone), hgb 15, hct 45, plt 399. Troponin negative. BNP 36. D-dimer neg 7.47. given reglan for nausea and ativan a few tabs. Was started on Ceftin per data visualization developer a few days prior Chronic cough 01/04/2020 01/05/2022 Persistent disorder of initiating or maintaining sleep 05/25/2008 01/05/2022 Depressive disorder, not elsewhere classified 01/05/2022 documented as of this encounter (statuses as of 01/31/2022) [facility] Narrative* Problem Noted Date Resolved Date Rash 01/01/2021 01/05/2022 Chest pressure 12/11/2020 01/05/2022 Acute bronchitis with chroni c obstructive pulmonary disease (COPD) 10/02/2020 01/05/2022 SOB (shortness of breath) 08/23/20202021 Overview: 11/06/20 NM: no inducible ischemia; No evidence of scarred myocardium; LV size and LVEF NL, RV size and RVSF NL. LVEF % 73 08/15/[address] [facility] [address] vr 112, non-specific ST, CXR NL. CBC WBC 22.8 (chronic elevation attributed to prednisone), hgb 15, hct 45, plt 399. Troponin negative. BNP 36. D-dimer neg 7.47. given reglan for nausea and ativan a few tabs. Was started on Ceftin per data visualization developer a few days prior Chronic cough 01/04/2020 01/05/2022 Persistent disorder of initiating or maintaining sleep 05/25/2008 01/05/2022 Depressive disorder, not elsewhere classified 01/05/2022 documented as of this encounter (statuses as of 02/01/2022) [facility] Narrative* Problem Noted Date Resolved Date Rash 01/01/2021 01/05/2022 Chest pressure 12/11/2020 01/05/2022 Acute bronchitis with chroni c obstructive pulmonary disease (COPD) 10/02/2020 01/05/2022 SOB (shortness of breath) 08/23/20202021 Overview: 11/06/20 NM: no inducible ischemia; No evidence of scarred myocardium; LV size and LVEF NL, RV size and RVSF NL. LVEF % 73 08/15/[address] [facility] [address] vr 112, non-specific ST, CXR NL. CBC WBC 22.8 (chronic elevation attributed to prednisone), hgb 15, hct 45, plt 399. Troponin negative. BNP 36. D-dimer neg 7.47. given reglan for nausea and ativan a few tabs. Was started on Ceftin per data visualization developer a few days prior Chronic cough 01/04/2020 01/05/2022 Persistent disorder of initiating or maintaining sleep 05/25/2008 01/05/2022 Depressive disorder, not elsewhere classified 01/05/2022 documented as of this encounter (statuses as of 02/11/2022) [facility] Narrative* Problem Noted Date Resolved Date Rash 01/01/2021 01/05/2022 Chest pressure 12/11/2020 01/05/2022 Acute bronchitis with chroni c obstructive pulmonary disease (COPD) 10/02/2020 01/05/2022 SOB (shortness of breath) 08/23/20202021 Overview: 11/06/20 NM: no inducible ischemia; No evidence of scarred myocardium; LV size and LVEF NL, RV size and RVSF NL. LVEF % 73 08/15/[address] [facility] [address] vr 112, non-specific ST, CXR NL. CBC WBC 22.8 (chronic elevation attributed to prednisone), hgb 15, hct 45, plt 399. Troponin negative. BNP 36. D-dimer neg 7.47. given reglan for nausea and ativan a few tabs. Was started on Ceftin per data visualization developer a few days prior Chronic cough 01/04/2020 01/05/2022 Persistent disorder of initiating or maintaining sleep 05/25/2008 01/05/2022 Depressive disorder, not elsewhere classified 01/05/2022 documented as of this encounter (statuses as of 02/15/2022) [facility] Narrative* Problem Noted Date Resolved Date Rash 01/01/2021 01/05/2022 Chest pressure 12/11/2020 01/05/2022 Acute bronchitis with chroni c obstructive pulmonary disease (COPD) 10/02/2020 01/05/2022 SOB (shortness of breath) 08/23/20202021 Overview: 11/06/20 NM: no inducible ischemia; No evidence of scarred myocardium; LV size and LVEF NL, RV size and RVSF NL. LVEF % 73 08/15/[address] [facility] [address] vr 112, non-specific ST, CXR NL. CBC WBC 22.8 (chronic elevation attributed to prednisone), hgb 15, hct 45, plt 399. Troponin negative. BNP 36. D-dimer neg 7.47. given reglan for nausea and ativan a few tabs. Was started on Ceftin per data visualization developer a few days prior Chronic cough 01/04/2020 01/05/2022 Persistent disorder of initiating or maintaining sleep 05/25/2008 01/05/2022 Depressive disorder, not elsewhere classified 01/05/2022 documented as of this encounter (statuses as of 02/18/2022) [facility] Narrative* Problem Noted Date Resolved Date Rash 01/01/2021 01/05/2022 Chest pressure 12/11/2020 01/05/2022 Acute bronchitis with chroni c obstructive pulmonary disease (COPD) 10/02/2020 01/05/2022 SOB (shortness of breath) 08/23/20202021 Overview: 11/06/20 NM: no inducible ischemia; No evidence of scarred myocardium; LV size and LVEF NL, RV size and RVSF NL. LVEF % 73 08/15/[address] [facility] [address] vr 112, non-specific ST, CXR NL. CBC WBC 22.8 (chronic elevation attributed to prednisone), hgb 15, hct 45, plt 399. Troponin negative. BNP 36. D-dimer neg 7.47. given reglan for nausea and ativan a few tabs. Was started on Ceftin per data visualization developer a few days prior Chronic cough 01/04/2020 01/05/2022 Persistent disorder of initiating or maintaining sleep 05/25/2008 01/05/2022 Depressive disorder, not elsewhere classified 01/05/2022 documented as of this encounter (statuses as of 03/18/2022) [facility]05-10-2021 History of Past illness Narrative* Problem Noted Date Resolved Date Rash 01/01/2021 01/05/2022 Chest pressure 12/11/2020 01/05/2022 Acute bronchitis with chroni c obstructive pulmonary disease (COPD) 10/02/2020 01/05/2022 SOB (shortness of breath) 08/23/20202021 Overview: 11/06/20 NM: no inducible ischemia; No evidence of scarred myocardium; LV size and LVEF NL, RV size and RVSF NL. LVEF % 73 08/15/[address] [facility] [address] vr 112, non-specific ST, CXR NL. CBC WBC 22.8 (chronic elevation attributed to prednisone), hgb 15, hct 45, plt 399. Troponin negative. BNP 36. D-dimer neg 7.47. given reglan for nausea and ativan a few tabs. Was started on Ceftin per data visualization developer a few days prior Chronic cough 01/04/2020 01/05/2022 Persistent disorder of initiating or maintaining sleep 05/25/2008 01/05/2022 Depressive disorder, not elsewhere classified 01/05/2022 documented as of this encounter (statuses as of 03/26/2022) [facility]05-10[facility]2021 History of Past illness Narrative* Problem Noted Date Resolved Date Rash 01/01/2021 01/05/2022 Chest pressure 12/11/2020 01/05/2022 Acute bronchitis with chroni c obstructive pulmonary disease (COPD) 10/02/2020 01/05/2022 SOB (shortness of breath) 08/23/20202021 Overview: 11/06/20 NM: no inducible ischemia; No evidence of scarred myocardium; LV size and LVEF NL, RV size and RVSF NL. LVEF % 73 08/15/[address] [facility] [address] vr 112, non-specific ST, CXR NL. CBC WBC 22.8 (chronic elevation attributed to prednisone), hgb 15, hct 45, plt 399. Troponin negative. BNP 36. D-dimer neg 7.47. given reglan for nausea and ativan a few tabs. Was started on Ceftin per data visualization developer a few days prior Chronic cough 01/04/2020 01/05/2022 Persistent disorder of initiating or maintaining sleep 05/25/2008 01/05/2022 Depressive disorder, not elsewhere classified 01/05/2022 documented as of this encounter (statuses as of 03/27/2022) [facility]2021 History of Past illness Narrative* Problem Noted Date Resolved Date Rash 01/01/2021 01/05/2022 Chest pressure 12/11/2020 01/05/2022 Acute bronchitis with chroni c obstructive pulmonary disease (COPD) 10/02/2020 01/05/2022 SOB (shortness of breath) 08/23/20202021 Overview: 11/06/20 NM: no inducible ischemia; No evidence of scarred myocardium; LV size and LVEF NL, RV size and RVSF NL. LVEF % 73 08/15/[address] [facility] [address] vr 112, non-specific ST, CXR NL. CBC WBC 22.8 (chronic elevation attributed to prednisone), hgb 15, hct 45, plt 399. Troponin negative. BNP 36. D-dimer neg 7.47. given reglan for nausea and ativan a few tabs. Was started on Ceftin per data visualization developer a few days prior Chronic cough 01/04/2020 01/05/2022 Persistent disorder of initiating or maintaining sleep 05/25/2008 01/05/2022 Depressive disorder, not elsewhere classified 01/05/2022 documented as of this encounter (statuses as of 04/15/2022) [facility]21 History of Past illness Narrative* Problem Noted Date Resolved Date Rash 01/01/2021 01/05/2022 Chest pressure 12/11/2020 01/05/2022 Acute bronchitis with chroni c obstructive pulmonary disease (COPD) 10/02/2020 01/05/2022 SOB (shortness of breath) 08/23/20202021 Overview: 11/06/20 NM: no inducible ischemia; No evidence of scarred myocardium; LV size and LVEF NL, RV size and RVSF NL. LVEF % 73 08/15/[address] [facility] [address] vr 112, non-specific ST, CXR NL. CBC WBC 22.8 (chronic elevation attributed to prednisone), hgb 15, hct 45, plt 399. Troponin negative. BNP 36. D-dimer neg 7.47. given reglan for nausea and ativan a few tabs. Was started on Ceftin per data visualization developer a few days prior Chronic cough 01/04/2020 01/05/2022 Persistent disorder of initiating or maintaining sleep 05/25/2008 01/05/2022 Depressive disorder, not elsewhere classified 01/05/2022 documented as of this encounter (statuses as of 04/16/2022) [facility]21 History of Past illness Narrative* Problem Noted Date Resolved Date Rash 01/01/2021 01/05/2022 Chest pressure 12/11/2020 01/05/2022 Acute bronchitis with chroni c obstructive pulmonary disease (COPD) 10/02/2020 01/05/2022 SOB (shortness of breath) 08/23/20202021 Overview: 11/06/20 NM: no inducible ischemia; No evidence of scarred myocardium; LV size and LVEF NL, RV size and RVSF NL. LVEF % 73 08/15/[address] [facility] [address] vr 112, non-specific ST, CXR NL. CBC WBC 22.8 (chronic elevation attributed to prednisone), hgb 15, hct 45, plt 399. Troponin negative. BNP 36. D-dimer neg 7.47. given reglan for nausea and ativan a few tabs. Was started on Ceftin per data visualization developer a few days prior Chronic cough 01/04/2020 01/05/2022 Persistent disorder of initiating or maintaining sleep 05/25/2008 01/05/2022 Depressive disorder, not elsewhere classified 01/05/2022 documented as of this encounter (statuses as of 04/22/2022) [facility]21 History of Past illness Narrative* Problem Noted Date Resolved Date Rash 01/01/2021 01/05/2022 Chest pressure 12/11/2020 01/05/2022 Acute bronchitis with chroni c obstructive pulmonary disease (COPD) 10/02/2020 01/05/2022 SOB (shortness of breath) 08/23/20202021 Overview: 11/06/20 NM: no inducible ischemia; No evidence of scarred myocardium; LV size and LVEF NL, RV size and RVSF NL. LVEF % 73 08/15/[address] [facility] [address] vr 112, non-specific ST, CXR NL. CBC WBC 22.8 (chronic elevation attributed to prednisone), hgb 15, hct 45, plt 399. Troponin negative. BNP 36. D-dimer neg 7.47. given reglan for nausea and ativan a few tabs. Was started on Ceftin per data visualization developer a few days prior Chronic cough 01/04/2020 01/05/2022 Persistent disorder of initiating or maintaining sleep 05/25/2008 01/05/2022 Depressive disorder, not elsewhere classified 01/05/2022 documented as of this encounter (statuses as of 04/30/2022) [facility]21 History of Past illness Narrative* Problem Noted Date Resolved Date Rash 01/01/2021 01/05/2022 Chest pressure 12/11/2020 01/05/2022 Acute bronchitis with chroni c obstructive pulmonary disease (COPD) 10/02/2020 01/05/2022 SOB (shortness of breath) 08/23/20202021 Overview: 11/06/20 NM: no inducible ischemia; No evidence of scarred myocardium; LV size and LVEF NL, RV size and RVSF NL. LVEF % 73 08/15/[address] [facility] [address] vr 112, non-specific ST, CXR NL. CBC WBC 22.8 (chronic elevation attributed to prednisone), hgb 15, hct 45, plt 399. Troponin negative. BNP 36. D-dimer neg 7.47. given reglan for nausea and ativan a few tabs. Was started on Ceftin per data visualization developer a few days prior Chronic cough 01/04/2020 01/05/2022 Persistent disorder of initiating or maintaining sleep 05/25/2008 01/05/2022 Depressive disorder, not elsewhere classified 01/05/2022 documented as of this encounter (statuses as of 05/01/2022) [facility]21 History of Past illness Narrative* Problem Noted Date Resolved Date Rash 01/01/2021 01/05/2022 Chest pressure 12/11/2020 01/05/2022 Acute bronchitis with chroni c obstructive pulmonary disease (COPD) 10/02/2020 01/05/2022 SOB (shortness of breath) 08/23/20202021 Overview: 11/06/20 NM: no inducible ischemia; No evidence of scarred myocardium; LV size and LVEF NL, RV size and RVSF NL. LVEF % 73 08/15/[address] [facility] [address] vr 112, non-specific ST, CXR NL. CBC WBC 22.8 (chronic elevation attributed to prednisone), hgb 15, hct 45, plt 399. Troponin negative. BNP 36. D-dimer neg 7.47. given reglan for nausea and ativan a few tabs. Was started on Ceftin per data visualization developer a few days prior Chronic cough 01/04/2020 01/05/2022 Persistent disorder of initiating or maintaining sleep 05/25/2008 01/05/2022 Depressive disorder, not elsewhere classified 01/05/2022 documented as of this encounter (statuses as of 05/03/2022) [facility] History of Past illness Narrative* Problem Noted Date Resolved Date Rash 01/01/2021 01/05/2022 Chest pressure 12/11/2020 01/05/2022 Acute bronchitis with chroni c obstructive pulmonary disease (COPD) 10/02/2020 01/05/2022 SOB (shortness of breath) 08/23/20202021 Overview: 11/06/20 NM: no inducible ischemia; No evidence of scarred myocardium; LV size and LVEF NL, RV size and RVSF NL. LVEF % 73 08/15/[address] [facility] [address] vr 112, non-specific ST, CXR NL. CBC WBC 22.8 (chronic elevation attributed to prednisone), hgb 15, hct 45, plt 399. Troponin negative. BNP 36. D-dimer neg 7.47. given reglan for nausea and ativan a few tabs. Was started on Ceftin per data visualization developer a few days prior Chronic cough 01/04/2020 01/05/2022 Persistent disorder of initiating or maintaining sleep 05/25/2008 01/05/2022 Depressive disorder, not elsewhere classified 01/05/2022 documented as of this encounter (statuses as of 05/06/2022) [facility] History of Past illness Narrative* Problem Noted Date Resolved Date Rash 01/01/2021 01/05/2022 Chest pressure 12/11/2020 01/05/2022 Acute bronchitis with chroni c obstructive pulmonary disease (COPD) 10/02/2020 01/05/2022 SOB (shortness of breath) 08/23/20202021 Overview: 11/06/20 NM: no inducible ischemia; No evidence of scarred myocardium; LV size and LVEF NL, RV size and RVSF NL. LVEF % 73 08/15/[address] [facility] [address] vr 112, non-specific ST, CXR NL. CBC WBC 22.8 (chronic elevation attributed to prednisone), hgb 15, hct 45, plt 399. Troponin negative. BNP 36. D-dimer neg 7.47. given reglan for nausea and ativan a few tabs. Was started on Ceftin per data visualization developer a few days prior Chronic cough 01/04/2020 01/05/2022 Persistent disorder of initiating or maintaining sleep 05/25/2008 01/05/2022 Depressive disorder, not elsewhere classified 01/05/2022 documented as of this encounter (statuses as of 05/28/2022) [facility] History of Past illness Narrative* Problem Noted Date Resolved Date Rash 01/01/2021 01/05/2022 Chest pressure 12/11/2020 01/05/2022 Acute bronchitis with chroni c obstructive pulmonary disease (COPD) 10/02/2020 01/05/2022 SOB (shortness of breath) 08/23/20202021 Overview: 11/06/20 NM: no inducible ischemia; No evidence of scarred myocardium; LV size and LVEF NL, RV size and RVSF NL. LVEF % 73 08/15/[address] [facility] [address] vr 112, non-specific ST, CXR NL. CBC WBC 22.8 (chronic elevation attributed to prednisone), hgb 15, hct 45, plt 399. Troponin negative. BNP 36. D-dimer neg 7.47. given reglan for nausea and ativan a few tabs. Was started on Ceftin per data visualization developer a few days prior Chronic cough 01/04/2020 01/05/2022 Persistent disorder of initiating or maintaining sleep 05/25/2008 01/05/2022 Depressive disorder, not elsewhere classified 01/05/2022 documented as of this encounter (statuses as of 06/05/2022) [facility] History of Past illness Narrative* Problem Noted Date Resolved Date Rash 01/01/2021 01/05/2022 Chest pressure 12/11/2020 01/05/2022 Acute bronchitis with chroni c obstructive pulmonary disease (COPD) 10/02/2020 01/05/2022 SOB (shortness of breath) 08/23/20202021 Overview: 11/06/20 NM: no inducible ischemia; No evidence of scarred myocardium; LV size and LVEF NL, RV size and RVSF NL. LVEF % 73 08/15/[address] [facility] [address] vr 112, non-specific ST, CXR NL. CBC WBC 22.8 (chronic elevation attributed to prednisone), hgb 15, hct 45, plt 399. Troponin negative. BNP 36. D-dimer neg 7.47. given reglan for nausea and ativan a few tabs. Was started on Ceftin per data visualization developer a few days prior Chronic cough 01/04/2020 01/05/2022 Persistent disorder of initiating or maintaining sleep 05/25/2008 01/05/2022 Depressive disorder, not elsewhere classified 01/05/2022 documented as of this encounter (statuses as of 06/19/2022) [facility] History of Past illness Narrative* Problem Noted Date Resolved Date Rash 01/01/2021 01/05/2022 Chest pressure 12/11/2020 01/05/2022 Acute bronchitis with chroni c obstructive pulmonary disease (COPD) 10/02/2020 01/05/2022 SOB (shortness of breath) 08/23/20202021 Overview: 11/06/20 NM: no inducible ischemia; No evidence of scarred myocardium; LV size and LVEF NL, RV size and RVSF NL. LVEF % 73 08/15/[address] [facility] [address] vr 112, non-specific ST, CXR NL. CBC WBC 22.8 (chronic elevation attributed to prednisone), hgb 15, hct 45, plt 399. Troponin negative. BNP 36. D-dimer neg 7.47. given reglan for nausea and ativan a few tabs. Was started on Ceftin per data visualization developer a few days prior Chronic cough 01/04/2020 01/05/2022 Persistent disorder of initiating or maintaining sleep 05/25/2008 01/05/2022 Depressive disorder, not elsewhere classified 01/05/2022 documented as of this encounter (statuses as of 06/24/2022) [facility] History of Past illness Narrative* Problem Noted Date Resolved Date Rash 01/01/2021 01/05/2022 Chest pressure 12/11/2020 01/05/2022 Acute bronchitis with chroni c obstructive pulmonary disease (COPD) 10/02/2020 01/05/2022 SOB (shortness of breath) 08/23/20202021 Overview: 11/06/20 NM: no inducible ischemia; No evidence of scarred myocardium; LV size and LVEF NL, RV size and RVSF NL. LVEF % 73 08/15/[address] [facility] [address] vr 112, non-specific ST, CXR NL. CBC WBC 22.8 (chronic elevation attributed to prednisone), hgb 15, hct 45, plt 399. Troponin negative. BNP 36. D-dimer neg 7.47. given reglan for nausea and ativan a few tabs. Was started on Ceftin per data visualization developer a few days prior Chronic cough 01/04/2020 01/05/2022 Persistent disorder of initiating or maintaining sleep 05/25/2008 01/05/2022 Depressive disorder, not elsewhere classified 01/05/2022 documented as of this encounter (statuses as of 06/25/2022) [facility] History of Past illness Narrative* Problem Noted Date Resolved Date Rash 01/01/2021 01/05/2022 Chest pressure 12/11/2020 01/05/2022 Acute bronchitis with chroni c obstructive pulmonary disease (COPD) 10/02/2020 01/05/2022 SOB (shortness of breath) 08/23/20202021 Overview: 11/06/20 NM: no inducible ischemia; No evidence of scarred myocardium; LV size and LVEF NL, RV size and RVSF NL. LVEF % 73 08/15/[address] [facility] [address] vr 112, non-specific ST, CXR NL. CBC WBC 22.8 (chronic elevation attributed to prednisone), hgb 15, hct 45, plt 399. Troponin negative. BNP 36. D-dimer neg 7.47. given reglan for nausea and ativan a few tabs. Was started on Ceftin per data visualization developer a few days prior Chronic cough 01/04/2020 01/05/2022 Persistent disorder of initiating or maintaining sleep 05/25/2008 01/05/2022 Depressive disorder, not elsewhere classified 01/05/2022 documented as of this encounter (statuses as of 06/26/2022) [facility] History of Past illness Narrative* Problem Noted Date Resolved Date Rash 01/01/2021 01/05/2022 Chest pressure 12/11/2020 01/05/2022 Acute bronchitis with chroni c obstructive pulmonary disease (COPD) 10/02/2020 01/05/2022 SOB (shortness of breath) 08/23/20202021 Overview: 11/06/20 NM: no inducible ischemia; No evidence of scarred myocardium; LV size and LVEF NL, RV size and RVSF NL. LVEF % 73 08/15/[address] [facility] [address] vr 112, non-specific ST, CXR NL. CBC WBC 22.8 (chronic elevation attributed to prednisone), hgb 15, hct 45, plt 399. Troponin negative. BNP 36. D-dimer neg 7.47. given reglan for nausea and ativan a few tabs. Was started on Ceftin per data visualization developer a few days prior Chronic cough 01/04/2020 01/05/2022 Persistent disorder of initiating or maintaining sleep 05/25/2008 01/05/2022 Depressive disorder, not elsewhere classified 01/05/2022 documented as of this encounter (statuses as of 06/27/2022) [facility] History of Past illness Narrative* Problem Noted Date Resolved Date Rash 01/01/2021 01/05/2022 Chest pressure 12/11/2020 01/05/2022 Acute bronchitis with chroni c obstructive pulmonary disease (COPD) 10/02/2020 01/05/2022 SOB (shortness of breath) 08/23/20202021 Overview: 11/06/20 NM: no inducible ischemia; No evidence of scarred myocardium; LV size and LVEF NL, RV size and RVSF NL. LVEF % 73 08/15/[address] [facility] [address] vr 112, non-specific ST, CXR NL. CBC WBC 22.8 (chronic elevation attributed to prednisone), hgb 15, hct 45, plt 399. Troponin negative. BNP 36. D-dimer neg 7.47. given reglan for nausea and ativan a few tabs. Was started on Ceftin per data visualization developer a few days prior Chronic cough 01/04/2020 01/05/2022 Persistent disorder of initiating or maintaining sleep 05/25/2008 01/05/2022 Depressive disorder, not elsewhere classified 01/05/2022 documented as of this encounter (statuses as of 07/11/2022) [facility] History of Past illness Narrative* Problem Noted Date Resolved Date Rash 01/01/2021 01/05/2022 Chest pressure 12/11/2020 01/05/2022 Acute bronchitis with chroni c obstructive pulmonary disease (COPD) 10/02/2020 01/05/2022 SOB (shortness of breath) 08/23/20202021 Overview: 11/06/20 NM: no inducible ischemia; No evidence of scarred myocardium; LV size and LVEF NL, RV size and RVSF NL. LVEF % 73 08/15/[address] [facility] [address] vr 112, non-specific ST, CXR NL. CBC WBC 22.8 (chronic elevation attributed to prednisone), hgb 15, hct 45, plt 399. Troponin negative. BNP 36. D-dimer neg 7.47. given reglan for nausea and ativan a few tabs. Was started on Ceftin per data visualization developer a few days prior Chronic cough 01/04/2020 01/05/2022 Persistent disorder of initiating or maintaining sleep 05/25/2008 01/05/2022 Depressive disorder, not elsewhere classified 01/05/2022 documented as of this encounter (statuses as of 07/24/2022) [facility] History of Past illness Narrative* Problem Noted Date Resolved Date Rash 01/01/2021 01/05/2022 Chest pressure 12/11/2020 01/05/2022 Acute bronchitis with chroni c obstructive pulmonary disease (COPD) 10/02/2020 01/05/2022 SOB (shortness of breath) 08/23/20202021 Overview: 11/06/20 NM: no inducible ischemia; No evidence of scarred myocardium; LV size and LVEF NL, RV size and RVSF NL. LVEF % 73 08/15/[address] [facility] [address] vr 112, non-specific ST, CXR NL. CBC WBC 22.8 (chronic elevation attributed to prednisone), hgb 15, hct 45, plt 399. Troponin negative. BNP 36. D-dimer neg 7.47. given reglan for nausea and ativan a few tabs. Was started on Ceftin per data visualization developer a few days prior Chronic cough 01/04/2020 01/05/2022 Persistent disorder of initiating or maintaining sleep 05/25/2008 01/05/2022 Depressive disorder, not elsewhere classified 01/05/2022 documented as of this encounter (statuses as of 07/31/2022) [facility] History of Past illness Narrative* Problem Noted Date Resolved Date Rash 01/01/2021 01/05/2022 Chest pressure 12/11/2020 01/05/2022 Acute bronchitis with chroni c obstructive pulmonary disease (COPD) 10/02/2020 01/05/2022 SOB (shortness of breath) 08/23/20202021 Overview: 11/06/20 NM: no inducible ischemia; No evidence of scarred myocardium; LV size and LVEF NL, RV size and RVSF NL. LVEF % 73 08/15/[address] [facility] [address] vr 112, non-specific ST, CXR NL. CBC WBC 22.8 (chronic elevation attributed to prednisone), hgb 15, hct 45, plt 399. Troponin negative. BNP 36. D-dimer neg 7.47. given reglan for nausea and ativan a few tabs. Was started on Ceftin per data visualization developer a few days prior Chronic cough 01/04/2020 01/05/2022 Persistent disorder of initiating or maintaining sleep 05/25/2008 01/05/2022 Depressive disorder, not elsewhere classified 01/05/2022 documented as of this encounter (statuses as of 08/01/2022) [facility] History of Past illness Narrative* Problem Noted Date Resolved Date Rash 01/01/2021 01/05/2022 Chest pressure 12/11/2020 01/05/2022 Acute bronchitis with chroni c obstructive pulmonary disease (COPD) 10/02/2020 01/05/2022 SOB (shortness of breath) 08/23/20202021 Overview: 11/06/20 NM: no inducible ischemia; No evidence of scarred myocardium; LV size and LVEF NL, RV size and RVSF NL. LVEF % 73 08/15/[address] [facility] [address] vr 112, non-specific ST, CXR NL. CBC WBC 22.8 (chronic elevation attributed to prednisone), hgb 15, hct 45, plt 399. Troponin negative. BNP 36. D-dimer neg 7.47. given reglan for nausea and ativan a few tabs. Was started on Ceftin per data visualization developer a few days prior Chronic cough 01/04/2020 01/05/2022 Persistent disorder of initiating or maintaining sleep 05/25/2008 01/05/2022 Depressive disorder, not elsewhere classified 01/05/2022 documented as of this encounter (statuses as of 08/12/2022) [facility] History of Past illness Narrative* Problem Noted Date Resolved Date Rash 01/01/2021 01/05/2022 Chest pressure 12/11/2020 01/05/2022 Acute bronchitis with chroni c obstructive pulmonary disease (COPD) 10/02/2020 01/05/2022 SOB (shortness of breath) 08/23/20202021 Overview: 11/06/20 NM: no inducible ischemia; No evidence of scarred myocardium; LV size and LVEF NL, RV size and RVSF NL. LVEF % 73 08/15/[address] [facility] [address] vr 112, non-specific ST, CXR NL. CBC WBC 22.8 (chronic elevation attributed to prednisone), hgb 15, hct 45, plt 399. Troponin negative. BNP 36. D-dimer neg 7.47. given reglan for nausea and ativan a few tabs. Was started on Ceftin per data visualization developer a few days prior Chronic cough 01/04/2020 01/05/2022 Persistent disorder of initiating or maintaining sleep 05/25/2008 01/05/2022 Depressive disorder, not elsewhere classified 01/05/2022 documented as of this encounter (statuses as of 09/04/2022) [facility] History of Past illness Narrative* Problem Noted Date Resolved Date Rash 01/01/2021 01/05/2022 Chest pressure 12/11/2020 01/05/2022 Acute bronchitis with chroni c obstructive pulmonary disease (COPD) 10/02/2020 01/05/2022 SOB (shortness of breath) 08/23/20202021 Overview: 11/06/20 NM: no inducible ischemia; No evidence of scarred myocardium; LV size and LVEF NL, RV size and RVSF NL. LVEF % 73 08/15/[address] [facility] [address] vr 112, non-specific ST, CXR NL. CBC WBC 22.8 (chronic elevation attributed to prednisone), hgb 15, hct 45, plt 399. Troponin negative. BNP 36. D-dimer neg 7.47. given reglan for nausea and ativan a few tabs. Was started on Ceftin per data visualization developer a few days prior Chronic cough 01/04/2020 01/05/2022 Persistent disorder of initiating or maintaining sleep 05/25/2008 01/05/2022 Depressive disorder, not elsewhere classified 01/05/2022 documented as of this encounter (statuses as of 09/04/2022) [facility] History of Past illness Narrative* Problem Noted Date Resolved Date Rash 01/01/2021 01/05/2022 Chest pressure 12/11/2020 01/05/2022 Acute bronchitis with chroni c obstructive pulmonary disease (COPD) 10/02/2020 01/05/2022 SOB (shortness of breath) 08/23/20202021 Overview: 11/06/20 NM: no inducible ischemia; No evidence of scarred myocardium; LV size and LVEF NL, RV size and RVSF NL. LVEF % 73 08/15/[address] [facility] [address] vr 112, non-specific ST, CXR NL. CBC WBC 22.8 (chronic elevation attributed to prednisone), hgb 15, hct 45, plt 399. Troponin negative. BNP 36. D-dimer neg 7.47. given reglan for nausea and ativan a few tabs. Was started on Ceftin per data visualization developer a few days prior Chronic cough 01/04/2020 01/05/2022 Persistent disorder of initiating or maintaining sleep 05/25/2008 01/05/2022 Depressive disorder, not elsewhere classified 01/05/2022 documented as of this encounter (statuses as of 09/05/2022) [facility] History of Past illness Narrative* Problem Noted Date Resolved Date Rash 01/01/2021 01/05/2022 Chest pressure 12/11/2020 01/05/2022 Acute bronchitis with chroni c obstructive pulmonary disease (COPD) 10/02/2020 01/05/2022 SOB (shortness of breath) 08/23/20202021 Overview: 11/06/20 NM: no inducible ischemia; No evidence of scarred myocardium; LV size and LVEF NL, RV size and RVSF NL. LVEF % 73 08/15/[address] [facility] [address] vr 112, non-specific ST, CXR NL. CBC WBC 22.8 (chronic elevation attributed to prednisone), hgb 15, hct 45, plt 399. Troponin negative. BNP 36. D-dimer neg 7.47. given reglan for nausea and ativan a few tabs. Was started on Ceftin per data visualization developer a few days prior Chronic cough 01/04/2020 01/05/2022 Persistent disorder of initiating or maintaining sleep 05/25/2008 01/05/2022 Depressive disorder, not elsewhere classified 01/05/2022 documented as of this encounter (statuses as of 10/10/2022) [facility]05-10-2021 History of Past illness Narrative* Problem Noted Date Resolved Date Rash 01/01/2021 01/05/2022 Chest pressure 12/11/2020 01/05/2022 Acute bronchitis with chroni c obstructive pulmonary disease (COPD) 10/02/2020 01/05/2022 SOB (shortness of breath) 08/23/20202021 Overview: 11/06/20 NM: no inducible ischemia; No evidence of scarred myocardium; LV size and LVEF NL, RV size and RVSF NL. LVEF % 73 08/15/[address] [facility] [address] vr 112, non-specific ST, CXR NL. CBC WBC 22.8 (chronic elevation attributed to prednisone), hgb 15, hct 45, plt 399. Troponin negative. BNP 36. D-dimer neg 7.47. given reglan for nausea and ativan a few tabs. Was started on Ceftin per data visualization developer a few days prior Chronic cough 01/04/2020 01/05/2022 Persistent disorder of initiating or maintaining sleep 05/25/2008 01/05/2022 Depressive disorder, not elsewhere classified 01/05/2022 documented as of this encounter (statuses as of 11/12/2022) [facility]05-10-2021 History of Past illness Narrative* Problem Noted Date Resolved Date Rash 01/01/2021 01/05/2022 Chest pressure 12/11/2020 01/05/2022 Acute bronchitis with chroni c obstructive pulmonary disease (COPD) 10/02/2020 01/05/2022 SOB (shortness of breath) 08/23/20202021 Overview: 11/06/20 NM: no inducible ischemia; No evidence of scarred myocardium; LV size and LVEF NL, RV size and RVSF NL. LVEF % 73 08/15/[address] [facility] [address] vr 112, non-specific ST, CXR NL. CBC WBC 22.8 (chronic elevation attributed to prednisone), hgb 15, hct 45, plt 399. Troponin negative. BNP 36. D-dimer neg 7.47. given reglan for nausea and ativan a few tabs. Was started on Ceftin per data visualization developer a few days prior Chronic cough 01/04/2020 01/05/2022 Persistent disorder of initiating or maintaining sleep 05/25/2008 01/05/2022 Depressive disorder, not elsewhere classified 01/05/2022 documented as of this encounter (statuses as of 11/13/2022) [facility]05-10[facility]2021 History of Past illness Narrative* Problem Noted Date Resolved Date Rash 01/01/2021 01/05/2022 Chest pressure 12/11/2020 01/05/2022 Acute bronchitis with chroni c obstructive pulmonary disease (COPD) 10/02/2020 01/05/2022 SOB (shortness of breath) 08/23/20202021 Overview: 11/06/20 NM: no inducible ischemia; No evidence of scarred myocardium; LV size and LVEF NL, RV size and RVSF NL. LVEF % 73 08/15/[address] [facility] [address] vr 112, non-specific ST, CXR NL. CBC WBC 22.8 (chronic elevation attributed to prednisone), hgb 15, hct 45, plt 399. Troponin negative. BNP 36. D-dimer neg 7.47. given reglan for nausea and ativan a few tabs. Was started on Ceftin per data visualization developer a few days prior Chronic cough 01/04/2020 01/05/2022 Persistent disorder of initiating or maintaining sleep 05/25/2008 01/05/2022 Depressive disorder, not elsewhere classified 01/05/2022 documented as of this encounter (statuses as of 11/26/2022) [facility]2021 History of Past illness Narrative* Problem Noted Date Resolved Date Rash 01/01/2021 01/05/2022 Chest pressure 12/11/2020 01/05/2022 Acute bronchitis with chroni c obstructive pulmonary disease (COPD) 10/02/2020 01/05/2022 SOB (shortness of breath) 08/23/20202021 Overview: 11/06/20 NM: no inducible ischemia; No evidence of scarred myocardium; LV size and LVEF NL, RV size and RVSF NL. LVEF % 73 08/15/[address] [facility] [address] vr 112, non-specific ST, CXR NL. CBC WBC 22.8 (chronic elevation attributed to prednisone), hgb 15, hct 45, plt 399. Troponin negative. BNP 36. D-dimer neg 7.47. given reglan for nausea and ativan a few tabs. Was started on Ceftin per data visualization developer a few days prior Chronic cough 01/04/2020 01/05/2022 Persistent disorder of initiating or maintaining sleep 05/25/2008 01/05/2022 Depressive disorder, not elsewhere classified 01/05/2022 documented as of this encounter (statuses as of 12/09/2022) [facility]-10[facility]2021 History of Past illness Narrative* Problem Noted Date Resolved Date Rash 01/01/2021 01/05/2022 Chest pressure 12/11/2020 01/05/2022 Acute bronchitis with chroni c obstructive pulmonary disease (COPD) 10/02/2020 01/05/2022 SOB (shortness of breath) 08/23/20202021 Overview: 11/06/20 NM: no inducible ischemia; No evidence of scarred myocardium; LV size and LVEF NL, RV size and RVSF NL. LVEF % 73 08/15/[address] [facility] [address] vr 112, non-specific ST, CXR NL. CBC WBC 22.8 (chronic elevation attributed to prednisone), hgb 15, hct 45, plt 399. Troponin negative. BNP 36. D-dimer neg 7.47. given reglan for nausea and ativan a few tabs. Was started on Ceftin per data visualization developer a few days prior Chronic cough 01/04/2020 01/05/2022 Persistent disorder of initiating or maintaining sleep 05/25/2008 01/05/2022 Depressive disorder, not elsewhere classified 01/05/2022 documented as of this encounter (statuses as of 12/16/2022) [facility]2021 History of Past illness Narrative* Problem Noted Date Resolved Date Rash 01/01/2021 01/05/2022 Chest pressure 12/11/2020 01/05/2022 Acute bronchitis with chroni c obstructive pulmonary disease (COPD) 10/02/2020 01/05/2022 SOB (shortness of breath) 08/23/20202021 Overview: 11/06/20 NM: no inducible ischemia; No evidence of scarred myocardium; LV size and LVEF NL, RV size and RVSF NL. LVEF % 73 08/15/[address] [facility] [address] vr 112, non-specific ST, CXR NL. CBC WBC 22.8 (chronic elevation attributed to prednisone), hgb 15, hct 45, plt 399. Troponin negative. BNP 36. D-dimer neg 7.47. given reglan for nausea and ativan a few tabs. Was started on Ceftin per data visualization developer a few days prior Chronic cough 01/04/2020 01/05/2022 Persistent disorder of initiating or maintaining sleep 05/25/2008 01/05/2022 Depressive disorder, not elsewhere classified 01/05/2022 documented as of this encounter (statuses as of 01/01/2023) [address]10-2021 History of Past illness Narrative* Problem Noted Date Resolved Date Rash 01/01/2021 01/05/2022 Chest pressure 12/11/2020 01/05/2022 Acute bronchitis with chroni c obstructive pulmonary disease (COPD) 10/02/2020 01/05/2022 SOB (shortness of breath) 08/23/20202021 Overview: 11/06/20 NM: no inducible ischemia; No evidence of scarred myocardium; LV size and LVEF NL, RV size and RVSF NL. LVEF % 73 08/15/[address] [facility] [address] vr 112, non-specific ST, CXR NL. CBC WBC 22.8 (chronic elevation attributed to prednisone), hgb 15, hct 45, plt 399. Troponin negative. BNP 36. D-dimer neg 7.47. given reglan for nausea and ativan a few tabs. Was started on Ceftin per data visualization developer a few days prior Chronic cough 01/04/2020 01/05/2022 Persistent disorder of initiating or maintaining sleep 05/25/2008 01/05/2022 Depressive disorder, not elsewhere classified 01/05/2022 documented as of this encounter (statuses as of 01/14/2023) [facility]05-10-2021 History of Past illness Narrative* Problem Noted Date Resolved Date Rash 01/01/2021 01/05/2022 Chest pressure 12/11/2020 01/05/2022 Acute bronchitis with chroni c obstructive pulmonary disease (COPD) 10/02/2020 01/05/2022 SOB (shortness of breath) 08/23/20202021 Overview: 11/06/20 NM: no inducible ischemia; No evidence of scarred myocardium; LV size and LVEF NL, RV size and RVSF NL. LVEF % 73 08/15/[address] [facility] [address] vr 112, non-specific ST, CXR NL. CBC WBC 22.8 (chronic elevation attributed to prednisone), hgb 15, hct 45, plt 399. Troponin negative. BNP 36. D-dimer neg 7.47. given reglan for nausea and ativan a few tabs. Was started on Ceftin per data visualization developer a few days prior Chronic cough 01/04/2020 01/05/2022 Persistent disorder of initiating or maintaining sleep 05/25/2008 01/05/2022 Depressive disorder, not elsewhere classified 01/05/2022 documented as of this encounter (statuses as of 01/23/2023) [facility]10[facility]2021 History of Past illness Narrative* Problem Noted Date Resolved Date Rash 01/01/2021 01/05/2022 Chest pressure 12/11/2020 01/05/2022 Acute bronchitis with chroni c obstructive pulmonary disease (COPD) 10/02/2020 01/05/2022 SOB (shortness of breath) 08/23/20202021 Overview: 11/06/20 NM: no inducible ischemia; No evidence of scarred myocardium; LV size and LVEF NL, RV size and RVSF NL. LVEF % 73 08/15/[address] [facility] [address] vr 112, non-specific ST, CXR NL. CBC WBC 22.8 (chronic elevation attributed to prednisone), hgb 15, hct 45, plt 399. Troponin negative. BNP 36. D-dimer neg 7.47. given reglan for nausea and ativan a few tabs. Was started on Ceftin per data visualization developer a few days prior Chronic cough 01/04/2020 01/05/2022 Persistent disorder of initiating or maintaining sleep 05/25/2008 01/05/2022 Depressive disorder, not elsewhere classified 01/05/2022 documented as of this encounter (statuses as of 02/03/2023) [facility]-10[facility]2021 History of Past illness Narrative* Problem Noted Date Resolved Date Rash 01/01/2021 01/05/2022 Chest pressure 12/11/2020 01/05/2022 Acute bronchitis with chroni c obstructive pulmonary disease (COPD) 10/02/2020 01/05/2022 SOB (shortness of breath) 08/23/20202021 Overview: 11/06/20 NM: no inducible ischemia; No evidence of scarred myocardium; LV size and LVEF NL, RV size and RVSF NL. LVEF % 73 08/15/[address] [facility] [address] vr 112, non-specific ST, CXR NL. CBC WBC 22.8 (chronic elevation attributed to prednisone), hgb 15, hct 45, plt 399. Troponin negative. BNP 36. D-dimer neg 7.47. given reglan for nausea and ativan a few tabs. Was started on Ceftin per data visualization developer a few days prior Chronic cough 01/04/2020 01/05/2022 Persistent disorder of initiating or maintaining sleep 05/25/2008 01/05/2022 Depressive disorder, not elsewhere classified 01/05/2022 documented as of this encounter (statuses as of 02/18/2023) [facility]05-10[facility]2021 History of Past illness Narrative* Problem Noted Date Resolved Date Rash 01/01/2021 01/05/2022 Chest pressure 12/11/2020 01/05/2022 Acute bronchitis with chroni c obstructive pulmonary disease (COPD) 10/02/2020 01/05/2022 SOB (shortness of breath) 08/23/20202021 Overview: 11/06/20 NM: no inducible ischemia; No evidence of scarred myocardium; LV size and LVEF NL, RV size and RVSF NL. LVEF % 73 08/15/[address] [facility] [address] vr 112, non-specific ST, CXR NL. CBC WBC 22.8 (chronic elevation attributed to prednisone), hgb 15, hct 45, plt 399. Troponin negative. BNP 36. D-dimer neg 7.47. given reglan for nausea and ativan a few tabs. Was started on Ceftin per data visualization developer a few days prior Chronic cough 01/04/2020 01/05/2022 Persistent disorder of initiating or maintaining sleep 05/25/2008 01/05/2022 Depressive disorder, not elsewhere classified 01/05/2022 documented as of this encounter (statuses as of 02/25/2023) [facility]05-10[facility]2021 History of Past illness Narrative* Problem Noted Date Diagnosed Date Resolved Date Rash 01/01/2021 01/05/2022 Chest pressure 12/11/2020 01/05/2022 Acute bronchitis with chroni c obstructive pulmonary disease (COPD) 10/02/2020 01/05/2022 SOB (shortness of breath) 08/23/2020 Overview: 11/06/20 NM: no inducible ischemia; No evidence of scarred myocardium; LV size and LVEF NL, RV size and RVSF NL. LVEF % 73 08/15/[address] [facility] [address] vr 112, non-specific ST, CXR NL. CBC WBC 22.8 (chronic elevation attributed to prednisone), hgb 15, hct 45, plt 399. Troponin negative. BNP 36. D-dimer neg 7.47. given reglan for nausea and ativan a few tabs. 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 05/25/2008 01/05/2022 Depressive disorder, not elsewhere classified 01/05/2022 documented as of this encounter (statuses as of 03/12/2023) [facility]05[facility]2021 History of Past illness Narrative* Problem Noted Date Diagnosed Date Resolved Date Rash 01/01/2021 01/05/2022 Chest pressure 12/11/2020 01/05/2022 Acute bronchitis with chroni c obstructive pulmonary disease (COPD) 10/02/2020 01/05/2022 SOB (shortness of breath) 08/23/2020 Overview: 11/06/20 NM: no inducible ischemia; No evidence of scarred myocardium; LV size and LVEF NL, RV size and RVSF NL. LVEF % 73 08/15/[address] [facility] [address] vr 112, non-specific ST, CXR NL. CBC WBC 22.8 (chronic elevation attributed to prednisone), hgb 15, hct 45, plt 399. Troponin negative. BNP 36. D-dimer neg 7.47. given reglan for nausea and ativan a few tabs. 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 05/25/2008 01/05/2022 Depressive disorder, not elsewhere classified 01/05/2022 documented as of this encounter (statuses as of 03/13/2023) [facility]05-10[facility]2021 History of Past illness Narrative* Problem Noted Date Diagnosed Date Resolved Date Rash 01/01/2021 01/05/2022 Chest pressure 12/11/2020 01/05/2022 Acute bronchitis with chroni c obstructive pulmonary disease (COPD) 10/02/2020 01/05/2022 SOB (shortness of breath) 08/23/2020 Overview: 11/06/20 NM: no inducible ischemia; No evidence of scarred myocardium; LV size and LVEF NL, RV size and RVSF NL. LVEF % 73 08/15/[address] [facility] [address] vr 112, non-specific ST, CXR NL. CBC WBC 22.8 (chronic elevation attributed to prednisone), hgb 15, hct 45, plt 399. Troponin negative. BNP 36. D-dimer neg 7.47. given reglan for nausea and ativan a few tabs. 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 05/25/2008 01/05/2022 Depressive disorder, not elsewhere classified 01/05/2022 documented as of this encounter (statuses as of 03/24/2023) [facility]21 History of Past illness Narrative* Problem Noted Date Diagnosed Date Resolved Date Rash 01/01/2021 01/05/2022 Chest pressure 12/11/2020 01/05/2022 Acute bronchitis with chroni c obstructive pulmonary disease (COPD) 10/02/2020 01/05/2022 SOB (shortness of breath) 08/23/2020 Overview: 11/06/20 NM: no inducible ischemia; No evidence of scarred myocardium; LV size and LVEF NL, RV size and RVSF NL. LVEF % 73 08/15/[address] [facility] [address] vr 112, non-specific ST, CXR NL. CBC WBC 22.8 (chronic elevation attributed to prednisone), hgb 15, hct 45, plt 399. Troponin negative. BNP 36. D-dimer neg 7.47. given reglan for nausea and ativan a few tabs. 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 05/25/2008 01/05/2022 Depressive disorder, not elsewhere classified 01/05/2022 documented as of this encounter (statuses as of 04/05/2023) [facility]21 History of Past illness Narrative* Problem Noted Date Diagnosed Date Resolved Date Rash 01/01/2021 01/05/2022 Chest pressure 12/11/2020 01/05/2022 Acute bronchitis with chroni c obstructive pulmonary disease (COPD) 10/02/2020 01/05/2022 SOB (shortness of breath) 08/23/2020 Overview: 11/06/20 NM: no inducible ischemia; No evidence of scarred myocardium; LV size and LVEF NL, RV size and RVSF NL. LVEF % 73 08/15/[address] [facility] [address] vr 112, non-specific ST, CXR NL. CBC WBC 22.8 (chronic elevation attributed to prednisone), hgb 15, hct 45, plt 399. Troponin negative. BNP 36. D-dimer neg 7.47. given reglan for nausea and ativan a few tabs. 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 LVEF % 73 08/15/[address] [facility] [address] vr 112, non-specific ST, CXR NL. CBC WBC 22.8 (chronic elevation attributed to prednisone), hgb 15, hct 45, plt 399. Troponin negative. BNP 36. D-dimer neg 7.47. given reglan for nausea and ativan a few tabs. 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 LVEF % 73 08/15/[address] [facility] [address] vr 112, non-specific ST, CXR NL. CBC WBC 22.8 (chronic elevation attributed to prednisone), hgb 15, hct 45, plt 399. Troponin negative. BNP 36. D-dimer neg 7.47. given reglan for nausea and ativan a few tabs. 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 LVEF % 73 08/15/[address] [facility] [address] vr 112, non-specific ST, CXR NL. CBC WBC 22.8 (chronic elevation attributed to prednisone), hgb 15, hct 45, plt 399. Troponin negative. BNP 36. D-dimer neg 7.47. given reglan for nausea and ativan a few tabs. 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 LVEF % 73 08/15/[address] [facility] [address] vr 112, non-specific ST, CXR NL. CBC WBC 22.8 (chronic elevation attributed to prednisone), hgb 15, hct 45, plt 399. Troponin negative. BNP 36. D-dimer neg 7.47. given reglan for nausea and ativan a few tabs. 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 LVEF % 73 08/15/[address] [facility] [address] vr 112, non-specific ST, CXR NL. CBC WBC 22.8 (chronic elevation attributed to prednisone), hgb 15, hct 45, plt 399. Troponin negative. BNP 36. D-dimer neg 7.47. given reglan for nausea and ativan a few tabs. 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 LVEF % 73 08/15/[address] [facility] [address] vr 112, non-specific ST, CXR NL. CBC WBC 22.8 (chronic elevation attributed to prednisone), hgb 15, hct 45, plt 399. Troponin negative. BNP 36. D-dimer neg 7.47. given reglan for nausea and ativan a few tabs. 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 LVEF % 73 08/15/[address] [facility] [address] vr 112, non-specific ST, CXR NL. CBC WBC 22.8 (chronic elevation attributed to prednisone), hgb 15, hct 45, plt 399. Troponin negative. BNP 36. D-dimer neg 7.47. given reglan for nausea and ativan a few tabs. 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 LVEF % 73 08/15/[address] [facility] [address] vr 112, non-specific ST, CXR NL. CBC WBC 22.8 (chronic elevation attributed to prednisone), hgb 15, hct 45, plt 399. Troponin negative. BNP 36. D-dimer neg 7.47. given reglan for nausea and ativan a few tabs. 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 LVEF % 73 08/15/[address] [facility] [address] vr 112, non-specific ST, CXR NL. CBC WBC 22.8 (chronic elevation attributed to prednisone), hgb 15, hct 45, plt 399. Troponin negative. BNP 36. D-dimer neg 7.47. given reglan for nausea and ativan a few tabs. 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 LVEF % 73 08/15/[address] [facility] [address] vr 112, non-specific ST, CXR NL. CBC WBC 22.8 (chronic elevation attributed to prednisone), hgb 15, hct 45, plt 399. Troponin negative. BNP 36. D-dimer neg 7.47. given reglan for nausea and ativan a few tabs. 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 LVEF % 73 08/15/[address] [facility] [address] vr 112, non-specific ST, CXR NL. CBC WBC 22.8 (chronic elevation attributed to prednisone), hgb 15, hct 45, plt 399. Troponin negative. BNP 36. D-dimer neg 7.47. given reglan for nausea and ativan a few tabs. 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 LVEF % 73 08/15/[address] [facility] [address] vr 112, non-specific ST, CXR NL. CBC WBC 22.8 (chronic elevation attributed to prednisone), hgb 15, hct 45, plt 399. Troponin negative. BNP 36. D-dimer neg 7.47. given reglan for nausea and ativan a few tabs. 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 LVEF % 73 08/15/[address] [facility] [address] vr 112, non-specific ST, CXR NL. CBC WBC 22.8 (chronic elevation attributed to prednisone), hgb 15, hct 45, plt 399. Troponin negative. BNP 36. D-dimer neg 7.47. given reglan for nausea and ativan a few tabs. 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 LVEF % 73 08/15/[address] [facility] [address] vr 112, non-specific ST, CXR NL. CBC WBC 22.8 (chronic elevation attributed to prednisone), hgb 15, hct 45, plt 399. Troponin negative. BNP 36. D-dimer neg 7.47. given reglan for nausea and ativan a few tabs. 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 LVEF % 73 08/15/[address] [facility] [address] vr 112, non-specific ST, CXR NL. CBC WBC 22.8 (chronic elevation attributed to prednisone), hgb 15, hct 45, plt 399. Troponin negative. BNP 36. D-dimer neg 7.47. given reglan for nausea and ativan a few tabs. 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 LVEF % 73 08/15/[address] [facility] [address] vr 112, non-specific ST, CXR NL. CBC WBC 22.8 (chronic elevation attributed to prednisone), hgb 15, hct 45, plt 399. Troponin negative. BNP 36. D-dimer neg 7.47. given reglan for nausea and ativan a few tabs. 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 LVEF % 73 08/15/[address] [facility] [address] vr 112, non-specific ST, CXR NL. CBC WBC 22.8 (chronic elevation attributed to prednisone), hgb 15, hct 45, plt 399. Troponin negative. BNP 36. D-dimer neg 7.47. given reglan for nausea and ativan a few tabs. 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 LVEF % 73 08/15/[address] [facility] [address] vr 112, non-specific ST, CXR NL. CBC WBC 22.8 (chronic elevation attributed to prednisone), hgb 15, hct 45, plt 399. Troponin negative. BNP 36. D-dimer neg 7.47. given reglan for nausea and ativan a few tabs. 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 LVEF % 73 08/15/[address] [facility] [address] vr 112, non-specific ST, CXR NL. CBC WBC 22.8 (chronic elevation attributed to prednisone), hgb 15, hct 45, plt 399. Troponin negative. BNP 36. D-dimer neg 7.47. given reglan for nausea and ativan a few tabs. 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 LVEF % 73 08/15/[address] [facility] [address] vr 112, non-specific ST, CXR NL. CBC WBC 22.8 (chronic elevation attributed to prednisone), hgb 15, hct 45, plt 399. Troponin negative. BNP 36. D-dimer neg 7.47. given reglan for nausea and ativan a few tabs. 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 LVEF % 73 08/15/[address] [facility] [address] vr 112, non-specific ST, CXR NL. CBC WBC 22.8 (chronic elevation attributed to prednisone), hgb 15, hct 45, plt 399. Troponin negative. BNP 36. D-dimer neg 7.47. given reglan for nausea and ativan a few tabs. 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 LVEF % 73 08/15/[address] [facility] [address] vr 112, non-specific ST, CXR NL. CBC WBC 22.8 (chronic elevation attributed to prednisone), hgb 15, hct 45, plt 399. Troponin negative. BNP 36. D-dimer neg 7.47. given reglan for nausea and ativan a few tabs. 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 LVEF % 73 08/15/[address] [facility] [address] vr 112, non-specific ST, CXR NL. CBC WBC 22.8 (chronic elevation attributed to prednisone), hgb 15, hct 45, plt 399. Troponin negative. BNP 36. D-dimer neg 7.47. given reglan for nausea and ativan a few tabs. 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 LVEF % 73 08/15/[address] [facility] [address] vr 112, non-specific ST, CXR NL. CBC WBC 22.8 (chronic elevation attributed to prednisone), hgb 15, hct 45, plt 399. Troponin negative. BNP 36. D-dimer neg 7.47. given reglan for nausea and ativan a few tabs. 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 LVEF % 73 08/15/[address] [facility] [address] vr 112, non-specific ST, CXR NL. CBC WBC 22.8 (chronic elevation attributed to prednisone), hgb 15, hct 45, plt 399. Troponin negative. BNP 36. D-dimer neg 7.47. given reglan for nausea and ativan a few tabs. 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 LVEF % 73 08/15/[address] [facility] [address] vr 112, non-specific ST, CXR NL. CBC WBC 22.8 (chronic elevation attributed to prednisone), hgb 15, hct 45, plt 399. Troponin negative. BNP 36. D-dimer neg 7.47. given reglan for nausea and ativan a few tabs. 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 LVEF % 73 08/15/[address] [facility] [address] vr 112, non-specific ST, CXR NL. CBC WBC 22.8 (chronic elevation attributed to prednisone), hgb 15, hct 45, plt 399. Troponin negative. BNP 36. D-dimer neg 7.47. given reglan for nausea and ativan a few tabs. 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 LVEF % 73 08/15/[address] [facility] [address] vr 112, non-specific ST, CXR NL. CBC WBC 22.8 (chronic elevation attributed to prednisone), hgb 15, hct 45, plt 399. Troponin negative. BNP 36. D-dimer neg 7.47. given reglan for nausea and ativan a few tabs. 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 05/25/2008 01/05/2022 Depressive disorder, not elsewhere classified 01/05/2022 documented as of this encounter (statuses as of 12/11/2023) [facility]05-07-2021 NoteHNO ID: [id number] Author: Maryellen Barrera MD Service: Interventional Cardiology Author Type: Physician Type: Procedures Filed: 12/29/2020 10:19 AM Note Text: LEFT HEART CATHETERIZATION PROCEDURE NOTE Surgery/Procedure Date: 12/29/2020 Referring Physician: Clinical History: This is a 65 year old female with short of breath for coronary angiography Consent: Informed consent was obtained after the risks, benefits, and alternatives to and of this procedure were discussed in detail with the patient. Procedure in Detail: The patient was brought to the cardiac catheterization laboratory, prepped and draped in the usual sterile fashion. Anxiolysis was achieved with intravenous and intravenous benadryl. Local anesthesia was achieved over the groin with 1% lidocaine. A pre-flushed 6-Romansh sheath was inserted into the femoral artery via the Seldinger technique without complications. Retrograde percutaneous diagnostic coronary angiography and left ventriculography were performed using a Ryan left 4 catheter, a 3-D RC catheter, and an angled pigtail catheter. There were no complications of the procedure. Findings: Angiography: LEFT MAIN: Normal LEFT CIRCUMFLEX: Normal LEFT ANTERIOR DESCENDING: Normal with D1 30% RIGHT CORONARY ARTERY: Large dominant normal LEFT VENTRICULOGRAPHY: Normal LV size and function with LVEF 60% Right heart cath : Elevated RA pressure Moderate pulmonary hypertension RVSP 40 mmHg At this point, the procedure was terminated. All diagnostic wires and catheters were removed. Recommendations: 1. Daily aspirin indefinitely 2. Medical therapy. 3. Statin use 4. Secondary cardiac prevention measures. SIGNATURE: Maryellen Barrera MD PATIENT NAME: Ivet Valero DATE: December 29, 2020 TIME: 10:17 [facility]12-03-2020 History of Present illness Narrative* Selena Wright (Rt)Odalys - 07/27/2020 12:40 PM EST Radiology Service Progress Note PATIENT NAME: Ivet Valero DATE OF SERVICE: July 27, 2020 TIME: 12:45 PM PATIENT IDENTITY VERIFICATION COMPLETED USING TWO (2) IDENTIFIERS: Name and Date of confirmedby patient verbally. FALL SCREENING: Has the patient had 2 falls in the last year or 1 fall with injury or currently using an Ambulatory Assistive Device (Walker, Cane, Wheelchair, Crutches, etc.)? No PATIENT GENDER DATA: Female. status: : No status: NO. PATIENT RELEVANT IMPLANT DATA REVIEWED: Not Applicable RADIOLOGY DEPARTMENT: General X-ray: Exam(s) Completed: Chest X-Ray PERIPHERAL IV DATA: Not applicable SIGNED BY: RT Lokesh July 27, 2020 12:45 PM documented in this encounterAlbuquerque ClinicDischar summary Author Bhavin Quinn [facility] Note Date/Time May 15, 2025 4:34am [facility] Medical Records Department [address] [place] [address] Emergency Department Summary 05/15/25 MR#: [id number] Acct: [id number] Name: IEVT VALERO Rep #:[id number] : [id number] From: Bhavin Quinn DO PCP: Dr. Ricci Cole MD Status:DEP E R Location: ED ADDENDUM by Dr. Rosalinda Parada DO on 05/19/25 at 0726 Urine culture grew greater than 100,000 per CFU per mL of ESBL E. coli. Will betreated with 1 week course of Macrobid. This is e-prescribed. Patient will be contacted and if she is having worsening symptoms, fever or other concerns instructed return to the emergency room. 05/19/25 0726<Electronically signed by Rosalinda Parada DO> Cosigner Signature (if applicable): cc: Dr. Ricci Cole MD ~* Signed HPI History of Present Illness Chief Complaint: Weakness Informant: patient Narrative Narrative: Patient is a 70-year-old female with past medical history of insulin-dependent diabetes hypertension hyperlipidemia COPD as well as anxiety and depression. She states she has been dealing with a recurrent UTI through her family doctor. She states she has taken multiple medications without symptom resolution. She states that today she is felt just generally weak and and this weakness has caused her to fall 4 times. She denies striking her head or any loss of consciousness or history of bleeding disorder or blood thinner use. She states that she tried to get up this evening and was too weak to do so and therefore with the worsening symptoms was brought to the hospital for evaluation [facility] Medical History Wears dentures Wears glasses Post-menopausal Anxiety History of steroid therapy Insulin dependent diabetes mellitus Arthritis High cholesterol Migraine headache Injury of head and neck Gastric reflux Smoker History of stress test Hypertension Cardiology follow-up encounter GERD (gastroesophageal reflux disease) Smoker Urinary tract infection UTI due to extended-spectrum beta lactamase (ESBL) producing Escherichia coli Secondary polycythemia Gastritis Panic disorder with agoraphobia Depression Diarrhea Leukocytosis Essential (primary) hypertension Frequent headaches Urinary incontinence Diabetes Gastroparesis Type 2 diabetes mellitus without complications Vision problem GI problem COPD (chronic obstructive pulmonary disease) Diabetes type 2, controlled Chronic bronchitis Chronic UTI Anxiety and depression Seasonal allergies Tobacco abuse COPD (chronic obstructive pulmonary disease) Fibromyalgia Home Medications ?Medication ?Instructions ?Recorded ?Last Taken ?Type insulin lispro 100 unit/mL See Protocol subcut TID serenity betes 01/02/22 08/03/23 History subcutaneous pen (Humalog KwikPen (U-100) Insulin) quetiapine 300 mg tablet 300 mg PO QHS mood 01/11/22 08/03/23 History albuterol sulfate 90 mcg/actuation 90 inh inhalation Q 4H PRN PRN sob 01/17/22 01/17/22 History aerosol inhaler bupropion HCl 150 mg 24 hr tablet, 150 mg PO DAILY moo d 01/17/22 08/04/23 History extended release buspirone 10 mg tablet 20 mg PO TID mood 01/17/22 1 10/04/22 History fluticasone furoate 100 1 ea inhalation DAILY sob 08/04/23 History mcg-vilanterol 25 mcg/dose inhalation powder (Breo Ellipta) omeprazole 40 mg capsule,delayed 40 mg PO DAILY gerd 0 05/01/22 08/04/23 History release insulin glargine U-300 conc 300 80 unit subcut DAILY d iabetes 06/11/22 08/03/23 History unit/mL (3 mL) subcutaneous pen (Toujeo Max U-300 SoloStar) escitalopram oxalate 20 mg tablet 20 mg [facility] 08/04/23 08/04/23 History promethazine 25 mg tablet 25 mg PO Q6H PRN nausea 07/25 09/16 Unknown History quetiapine 25 mg tablet 25 mg PO TID mental health 1 10/05/22 08/04/23 History Allergy/AdvReac Type Severity Reaction Status Date / Time Penicillins Allergy Hives Verified 05/15/25 00:25 Sulfa (Sulfonamide Allergy Hives Verified 05/15/25 00:25 Antibiotics) varenicline (From Chantix) Allergy Other Verified 05/15/25 00:25 Family History Brother Diabetes Hypertension Surgical History History of cardiac catheterization History of appendectomy H/O tubal ligation S/P ORIF (open reduction internal fixation) fracture bladder sling S/P complete hysterectomy Hx of cholecystectomy Social History Smoking Status: Current every day smoker tobacco type: cigarettes second hand exposure: Yes alcohol intake: never substance use type: does not use ROS ROS ED Constitutional Constitutional ED: Reports other Details: Positive fatigue ; Denies chills or fever(s) Eyes Eyes: Denies change in vision ENT ENT ED: Denies rhinorrhea or sore throat Cardiovascular Cardiovascular: Reports other Details: Negative syncope ; Denies chest pain, palpitations or racing heartbeat Respiratory/Chest Respiratory/Chest: Denies cough or dyspnea Gastrointestinal Gastrointestinal: Denies abdominal pain, diarrhea, nausea or vomiting Genitourinary Genitourinary ED: Denies dysuria or hematuria Musculoskeletal Musculoskeletal: Denies back pain, myalgias or neck pain Integumentary Denies Abrasions or rash Neurologic Neurologic: Reports weakness; Denies headache(s) Psychiatric Psychiatric: Reports anxiety and depression Hematologic/Lymphatic Hematologic/Lymphatic: Denies easy bleeding or easy bruising EXAM Physical Exam Const Vital Signs: 05/15/25 00:25 05/15/25 00:29 05/15/25 00:29 Temperature 98.2 F 98.2 F Temperature Source Oral Oral Pulse Rate 92 93 Respiratory Rate 18 18 Respiratory Effort Normal Non-Labored Respiratory Depth Respiratory Pattern Normal Blood Pressure 158/70 H 158/70 H Blood Pressure Mean 99 99 Pulse Ox 99 100 Oxygen Delivery Method Room Air Room Air 05/15/25 00:29 05/15/25 01:28 05/15/25 02:00 Temperature 98.2 F 98.2 F Temperature Source Oral Oral Pulse Rate 93 89 Respiratory Rate 18 18 Respiratory Effort Normal Non-Labored Respiratory Depth Normal Respiratory Pattern Normal Blood Pressure 164/74 H 178/76 H Blood Pressure Mean 104 110 Pulse Ox 97 100 100 Oxygen Delivery Method Room Air Room Air 05/15/25 03:00 Temperature 98.2 F Temperature Source Oral Pulse Rate 88 Respiratory Rate 16 Respiratory Effort Respiratory Depth Respiratory Pattern Blood Pressure 174/88 H Blood Pressure Mean 116 Pulse Ox 100 Oxygen Delivery Method Room Air Positive well nourished, well developed and obese General Appearance ED: well developed; Negative for pallor Nutritional Appearance: obese HEENT Reports dry mucous membranes HEENT Narrative: Normocephalic atraumatic No signs of depressed or basilar skull fracture No tongue or lip swelling no oral lesions no airway edema or compromise; no secondary findings in the posterior pharynx to suggest infection Mucous membranes are dry and tacky however Mouth ED: Yes dry mucous membranes Mouth: dry mucous membranes Eyes PERRL and EOMs intact bilaterally General Eye ED: Negative for scleral icterus Neck supple Neck Narrative: No nuchal rigidity or meningeal signs No bony deformity or step-off of the cervical spine; no midline pain with palpation. Patient is able to move her neck in all directions without pain Chest Wall Chest Narrative: No bony deformity or crepitance noted with palpation of the chest wall There is reproducible anterior lateral left chest wall pain along rib regions 10-12 without overlying ecchymosis or abrasions. Resp normal respiratory effort Resp Narrative: Breath sounds are diminished throughout with faint rhonchi and expiratory wheezein the bilateral lower lobes consistent with history of COPD; no signs of respiratory distress noted Cardio regular rate and regular rhythm Rate: other Other Details: Radial and carotid pulses are equal and symmetric GI normal to inspection, nondistended, normoactive bowel sounds, non-tender, non-distended and no masses GI Narrative: Soft nontender and nondistended with normal active bowel sounds. No voluntary guarding or rigidity or pulsatile mass. No peritoneal signs Auscultation: normoactive bowel sounds Palpation: soft Back/Spine no CVA tenderness Back/Spine Narrative: No bony deformity or step-off of the thoracic or lumbar spine; no midline tenderness to palpation Extremity normal to inspection Extremity Narrative: Pelvis is stable there is no shortening or external rotation of either lower extremity No signs of long bone injury such as bony deformity or joint effusion Compartments are soft and compressible going against compartment syndrome Neuro oriented x3 and CN's II-XII intact bilaterally Neuro Narrative: GCS of 15 Cranial nerves II through XII are grossly intact without focal neurologic deficit No pronator drift no dysmetria no truncal ataxia NIH stroke scale score of 0 Sensorium / Orientation: alert Psych Psych Narrative: Patient has a depressed/flat affect Mood & Affect: depressed Skin no rashes or lesions noted and no wounds General Skin Exam: Negative for jaundice or pallor MDM MDM MDM Narrative Medical decision making narrative: Patient arrived to the ER hypertensive but has a past medical history of this and otherwise vitals are stable. She reported feeling generally weak today causing her to fall. She denied any point striking her head or having loss of consciousness but she did admit to left-sided rib pain. In order to ensure thatthere is no sign of traumatic subarachnoid or subdural hemorrhage or skull fracture associated with her falls or rib fracture versus pneumothorax or pulmonary contusion I did elect to perform CTs of the head and chest. Imaging studies were negative for acute trauma or infection. As patient also reports that she has been dealing with recurrent UTIs there is concern that she could beprogressing to urosepsis. White count is elevated at 15.5 and there is elevation in neutrophil count at 10.8 however there are no signs of acute kidneyinjury clinically significant [place] abnormality or thyroid disorder. The urine sample shows +4 bacteria but there are no white cells and it is nitrate negative. Therefore this is most likely colonization or normal dante and I do not feel the need for emergent antibiotics especially as vitals are stable. In order to ensure that the patient does not have an atypical presentation for repeat urinary tract infection I will send it for culture. The patient was ambulated in the ER and can walk with a steady gait. Therefore at this time as there is no signs of urosepsis acute kidney injury or underlying trauma from thereported falls and the patient is able to ambulate with a steady gait I do not feel the need for admission or further intervention in the ER and she is otherwise safe for discharge History & Record Review Discussion w/independent historian: Patient Lab Data Attestation: I reviewed the patient's lab results. Labs: Laboratory Results - last 24 hr 05/15/25 05/15/25 00:31 01:20 WBC 15.5 H RBC 4.36 Hgb 13.4 Hct 40.2 MCV 92.2 MCH 30.7 MCHC 33.3 RDW Std Deviation 45.2 H RDW Coeff of Jona 13.2 Plt Count 285 MPV 9.7 Immature Gran % (Auto) 0.700 Neut % (Auto) 69.9 Lymph % (Auto) 21.1 Thomas % (Auto) 7.4 Eos % (Auto) 0.5 Baso % (Auto) 0.4 Absolute Neuts (auto) 10.8 H Absolute Lymphs (auto) 3.26 Nucleated RBC % 0 Sodium 142 Potassium 3.7 Chloride 105 Carbon Dioxide 23.7 Anion Gap 13 BUN 7 Creatinine 0.68 L Estim Creat Clear Calc 85.13 Est GFR (MDRD) Non-Af 95 BUN/Creatinine Ratio 10.0 Glucose 163 H Calcium 9.2 Magnesium 2.0 TSH 0.570 Urine Color Yellow Urine Clarity Sl. Cloudy Urine pH 6.0 Ur Specific Malone 1.010 Urine Protein Negative Urine Glucose (UA) 1000 H Urine Ketones Negative Urine Occult Blood 10 H Urine Nitrite Negative Urine Bilirubin Negative Urine Urobilinogen Normal Ur Leukocyte Esterase 25 H Urine RBC 0 SEEN Urine WBC 0-5 SEEN Ur Squamous Epith Cells 0-5 SEEN Urine Bacteria 4+ Urine Mucus 0 SEEN Radiography Diagnostic Testing: Clinical Impression(s) from Imaging Studies Brain CT 05/15/25 00:53 IMPRESSION: 1. No intracranial hemorrhage. No mass effect or midline shift. 2. Chronic involutional and ischemic gliotic white matter changes. Reading Location: [facility] Chest CT 05/15/25 00:53 IMPRESSION: 1. No acute findings in the chest as imaged. 2. No rib fractures identified. 3. Left renal cyst measures 3.5 cm. Reading Location: [facility] Discharge Plan Triage Chief Complaint: Weakness Other Complaint: Fall Complaint ED Provider: Bhavin Quinn Dx/Rx/DC Orders Clinical Impression: Generalized weakness, Contusion of rib on left side, Diabetes mellitus type 2, insulin dependent, COPD (chronic obstructive pulmonary disease), Hypertension Instructions: ED Bruise, Rib, ED Weakness Uncertain Cause Prescriptions: No Action quetiapine 300 mg tablet 300 mg PO QHS insulin lispro [Humalog KwikPen Insulin] 100 unit/mL Insulin Pen See Protocol SUBCUT TID Protocol: 1. Sliding Scale Insulin Low Dosing Condition: 150-224 mg/dl = 1 unit Condition: 225-299 mg/dl = 2 units Condition: 300-374 mg/dl = 3 units Condition: 375-499 mg/dl = 4 units Condition: Greater than 449 call physician Protocol Text: - Use for Total Daily Dose of Insulin 15-27 units - Thin, elderly, renal patients LOW DOSING ALGORITHM Rx Instructions: plus sliding scale buspirone 10 mg tablet 20 mg PO TID albuterol sulfate 90 mcg/actuation HFA aerosol inhaler 90 inh INHALATION Q4H PRN PRN (Reason: sob) Patient Comments: TAKE 2 PUFFS BY MOUTH EVERY 4 HOURS NEEDED fluticasone furoate-vilanterol [Breo Ellipta] 100-25 mcg/dose blister with device 1 ea INHALATION DAILY Patient Comments: INHALE 1 INHALATION INSTRUCTED ONCE DAILY. bupropion HCl 150 mg tablet extended release 24 hr 150 mg PO DAILY Patient Comments: TAKE 1 TABLET BY MOUTH EVERY MORNING Toujeo Max U-300 SoloStar 300 unit/mL (3 mL) insulin pen 80 unit subcut DAILY omeprazole 40 mg Capsule,Delayed Release(Dr/Ec) 40 mg PO DAILY escitalopram oxalate 20 mg tablet 20 mg PO DAILY quetiapine 25 mg tablet 25 mg PO TID promethazine 25 mg tablet 25 mg PO Q6H PRN (Reason: nausea) Patient Comments: TAKE 1 TABLET BY MOUTH EVERY 6 HOURS NEEDED FOR NAUSEA AND VOMITING Primary Care Provider: Ricci Cole Referrals: Ricci Cole MD [Primary Care Provider, Medical] Activity Restrictions/Additional Instructions: The CT of your head revealed no acute skull fracture or brain bleed. Your chestCT revealed no rib fracture pneumothorax/hole in the lung or signs of infection. Your urine sample has bacteria but no associated white blood cells or nitrites and therefore this is most likely normal dante/colonization and not a true UTI. Your urine will be sent for culture however to ensure there is no infection. Please continue all of your home medications as directed by your doctor and return to the ER should you have any further concerns. It will take on average 1 to 2 weeks for the rib contusion to heal and therefore you may have pain during this time Print Language: Azerbaijani Disposition Disposition: Home, Self Care What to do if you have Problems For any increased pain, shortness of breath, bleeding, nausea or vomiting, chestpain, or any unexpected problems, contact your Primary Care Provider. Call [facility] ([phone]) or report to the closest Emergency Room. Call 911 if necessary. 05/15/25 [id number] <Electronically signed by Bhavin Quinn DO> Cosigner Signature (if applicable): CC: Dr. Ricci Cole MD ~ Signed [facility] Work Phone: Evaluation note* Diagnosis COPD with exacerbation (HCC)- Primary Obstructive chronic bronchitis with exacerbation COPD with chronic bronchitis (HCC) Obstructive chronic bronchitis without exacerbation Tobacco use disorder, continuous Tobacco use disorder [facility] Diagnosis Nausea Nausea alone documented in this encounter [facility] note* Diagnosis Type 2 diabetes mellitus without complication, without long-term current use of insulin (HCC) documented in this encounter [facility] note* Diagnosis Suspected COVID-19 virus infection- Primary Fatigue, unspecified type SOB (shortness of breath) Shortness of breath Mixed simple and mucopurulent chronic bronchitis (HCC) Other chronic bronchitis Depression, major, recurrent, in complete remission (HCC) Major depressive disorder, recurrent episode, in full remission Fibromyalgia Mylagia and myositis, unspecified Hyperlipidemia, mixed Mixed hyperlipidemia Panic disorder without agoraphobia Primary hypertension Unspecified essential hypertension Secondary polycythemia Polycythemia, secondary Tobacco use disorder Uncontrolled type 2 diabetes mellitus with hyperglycemia (HCC) Generalized abdominal pain Abdominal pain, generalized Low vitamin D level Urinary frequency Intermittent chest pain Chest pain, unspecified Disorder of cartilage, unspecified Nausea Nausea alone [facility] Diagnosis Low vitamin D level- Primary Serum calcium elevated Hypercalcemia [facility] Diagnosis COPD with exacerbation (HCC)- Primary Obstructive chronic bronchitis with exacerbation [facility] noteNo assessment information [facility] Work Phone: Evaluation note* Diagnosis Nausea Nausea alone documented in this encounter [facility] note* Diagnosis Nausea- Primary Nausea alone Other chronic gastritis without hemorrhage Urinary incontinence, unspecified type History of recurrent UTIs Personal history of urinary (tract) infection Migraine with aura and without status migrainosus, not intractable Migraine with aura, without mention of intractable migraine without mention of status migrainosus Leukocytosis, unspecified type Secondary polycythemia Polycythemia, secondary Tobacco use Tobacco use disorder Primary hypertension Unspecified essential hypertension Hyperlipidemia, mixed Mixed hyperlipidemia Depression, major, recurrent, in complete remission (HCC) Major depressive disorder, recurrent episode, in full remission Uncontrolled type 2 diabetes mellitus with hyperglycemia ([facility]) Screening breast examination Breast screening, unspecified Screening for colon cancer Special screening for malignant neoplasms, colon Pyuria Other nonspecific finding on examination of urine Chronic bronchitis, unspecified chronic bronchitis type ([facility]) documented in this encounter [facility] note* Diagnosis Leukocytosis, unspecified type- Primary documented in this encounter [facility] note* Diagnosis Onset Date Resolution Status UTI due to extended-spectrum beta lactamase (ESBL) producing Escherichia coli acute [facility] Work Phone: Evaluation note* Diagnosis Onset Date Resolution Status Leukocytosis acute SIRS (systemic inflammatory response syndrome) acute Urinary tract infection acut e UTI due to extended-spectrum beta lactamase (ESBL) producing Escherichia coli acute Diabetes chronic [facility] Work Phone: Evaluation note* Diagnosis Fibromyalgia- Primary Mylagia and myositis, unspecified Type 2 diabetes mellitus without complication, without long-term current use of insulin ([facility]) Screening for colon cancer Special screening for malignant neoplasms, colon Primary hypertension Unspecified essential hypertension Depression, major, recurrent, in complete remission (HCC) Major depressive disorder, recurrent episode, in full remission Hospital discharge follow-up Other follow-up examination documented in this encounter [facility] note* Diagnosis Nausea Nausea alone documented in this encounter [facility] note* Diagnosis Chronic nausea Nausea alone documented in this encounter [facility] note* Diagnosis Panic attacks Panic disorder without agoraphobia documented in this encounter [facility] note* Diagnosis Nausea Nausea alone documented in this encounter [facility] note* Diagnosis Onset Date Resolution Status Leukocytosis resolved SIRS (systemic inflammatory response syndrome) resolved Intractable nausea and vomiting acute Nausea acute Acute encephalopathy acute Acute UTI acute Sepsis acute Type 2 diabetes mellitus without complications chronic [facility] Work Phone: Evaluation note* Diagnosis Onset Date Resolution Status Leukocytosis resolved SIRS (systemic inflammatory response syndrome) resolved Intractable nausea and vomiting acute Nausea acute Acute encephalopathy resolve d Acute UTI resolved [facility] Work Phone: Evaluation note* Diagnosis Fibromyalgia Mylagia and myositis, unspecified documented in this encounter [facility] note* Diagnosis Onset Date Resolution Status Intractable nausea and vomiting acute Nausea acute Acute encephalopathy resolve d Acute UTI resolved [facility] Work Phone: Evaluation note* Diagnosis Nausea Nausea alone documented in this encounter [facility] note* Diagnosis Panic attacks Panic disorder without agoraphobia documented in this encounter [facility] note* Diagnosis Type 2 diabetes mellitus without complication, without long-term current use of insulin (HCC) Chronic bronchitis, unspecified chronic bronchitis type (HCC) documented in this encounter [facility] note* Diagnosis Type 2 diabetes mellitus without complication, without long-term current use of insulin (HCC) documented in this encounter [facility] note* Diagnosis Type 2 diabetes mellitus without complication, without long-term current use of insulin (HCC) documented in this encounter [facility] note* Diagnosis Encounter for screening mammogram for breast cancer documented in this encounter [facility] note* Diagnosis Type 2 diabetes mellitus without complication, without long-term current use of insulin (HCC) documented in this encounter [facility] note* Diagnosis Type 2 diabetes mellitus without complication, without long-term current use of insulin (HCC) documented in this encounter [facility] note* Diagnosis Candidiasis Candidiasis of unspecified site documented in this encounter [facility] note* Diagnosis Needs assistance with community resources- Primary Assistance needed with transportation documented in this encounter [facility] note* Diagnosis Type 2 diabetes mellitus without complication, without long-term current use of insulin (HCC) documented in this encounter [facility] note* Diagnosis Type 2 diabetes mellitus without complication, without long-term current use of insulin (HCC)- Primary Chronic nausea Nausea alone Primary hypertension Unspecified essential hypertension Secondary polycythemia Polycythemia, secondary Hyperlipidemia, mixed Mixed hyperlipidemia Urinary frequency Panic attacks Panic disorder without agoraphobia Fibromyalgia Mylagia and myositis, unspecified Low vitamin D level Serum calcium elevated Hypercalcemia Vitamin D deficiency, unspecified Visit for screening mammogram Other screening mammogram Asymptomatic postmenopausal status Screening for colon cancer Special screening for malignant neoplasms, colon Encounter for screening for lung cancer Other chronic gastritis without hemorrhage Weight loss Loss of weight Encounter for immunization Need for other specified prophylactic vaccination against single bacterial disease Chronic bronchitis, unspecified chronic bronchitis type (HCC) Depression, major, recurrent, in complete remission (HCC) Major depressive disorder, recurrent episode, in full remission Uncontrolled type 2 diabetes mellitus with hyperglycemia (HCC) * Assessment & Plan Note - Nanci Huber APRN.CNP - 04/15/2023 5:57 PM EDT Associated Problem(s): Uncontrolled type 2 diabetes mellitus with hyperglycemia (HCC) Labs today * Assessment & Plan Note - Nanci Huber APRN.CNP - 04/15/2023 5:57 PM EDT Associated Problem(s): Chronic bronchitis (HCC) Stable based upon symptoms and exam. Continue current treatment plan and follow up at least yearly. * Assessment & Plan Note - Nanci Huber APRN.CNP - 04/15/2023 5:57 PM EDT Associated Problem(s): Depression, major, recurrent, in complete remission (HCC) Stable based upon symptoms and exam. Continue current treatment plan and follow up at least yearly. [facility] Vitamin D deficiency- Primary Unspecified vitamin D deficiency Hyperlipidemia, mixed Mixed hyperlipidemia [facility] Chronic nausea Nausea alone [facility] Diagnosis Type 2 diabetes mellitus without complication, without long-term current use of insulin (HCC) [facility] Urinary frequency- Primary [facility] Diagnosis Type 2 diabetes mellitus without complication, without long-term current use of insulin (HCC) [facility] Diagnosis Onset Date Resolution Status Acute UTI acute Anxiety and depression acute Diabetes acute GERD (gastroesophageal reflux disease) acute Sepsis acute COPD (chronic obstructive pulmonary disease) chronic Fibromyalgia chronic Hypertension chronic Tobacco abuse [facility] Diagnosis Onset Date Resolution Status Acute UTI acute Anxiety and depression acute Diabetes acute GERD (gastroesophageal reflux disease) acute Leukocytosis acute Nausea acute COPD (chronic obstructive pulmonary disease) chronic Fibromyalgia chronic Hypertension chronic Tobacco abuse [facility] Work Phone: Evaluation note* Diagnosis Type 2 diabetes mellitus without complication, without long-term current use of insulin ([facility]) documented in this encounter [facility] note* Diagnosis Type 2 diabetes mellitus without complication, without long-term current use of insulin (HCC)- Primary documented in this encounter [facility] note* Diagnosis Chronic nausea Nausea alone documented in this encounter [facility] note* Diagnosis Chronic bronchitis, unspecified chronic bronchitis type (HCC)- Primary documented in this encounter [facility] note* Diagnosis Chronic nausea Nausea alone documented in this encounter [facility] note* Diagnosis Chronic nausea Nausea alone documented in this encounter [facility] note* Diagnosis Chronic bronchitis, unspecified chronic bronchitis type (HCC) Chronic nausea Nausea alone documented in this encounter [facility] note* Diagnosis Type 2 diabetes mellitus without complication, without long-term current use of insulin ([facility]) documented in this encounter [facility] note* Diagnosis Type 2 diabetes mellitus without complication, without long-term current use of insulin ([facility]) documented in this encounter [facility] note* Diagnosis Encounter for screening mammogram for breast cancer documented in this encounter [facility] note* Diagnosis Dysuria- Primary Cutaneous candidiasis Candidiasis of skin and nails Tinea corporis Dermatophytosis of the body documented in this encounter [facility] note* Diagnosis Type 2 diabetes mellitus without complication, without long-term current use of insulin (HCC) documented in this encounter [facility] note* Diagnosis Recurrent UTI (urinary tract infection)- Primary Urinary tract infection, site not specified documented in this encounter [facility] note* Diagnosis Chronic nausea Nausea alone documented in this encounter [facility] note* Diagnosis Type 2 diabetes mellitus without complication, without long-term current use of insulin (HCC) Chronic nausea Nausea alone documented in this encounter [facility] note* Diagnosis Type 2 diabetes mellitus without complication, without long-term current use of insulin (HCC)- Primary Chronic nausea Nausea alone Primary hypertension Unspecified essential hypertension Secondary polycythemia Polycythemia, secondary Hyperlipidemia, mixed Mixed hyperlipidemia Urinary frequency Panic attacks Panic disorder without agoraphobia Fibromyalgia Mylagia and myositis, unspecified Low vitamin D level Serum calcium elevated Hypercalcemia Vitamin D deficiency, unspecified Visit for screening mammogram Other screening mammogram Asymptomatic postmenopausal status Screening for colon cancer Special screening for malignant neoplasms, colon Encounter for screening for lung cancer Other chronic gastritis without hemorrhage Weight loss Loss of weight Encounter for immunization Need for other specified prophylactic vaccination against single bacterial disease Chronic bronchitis, unspecified chronic bronchitis type (HCC) Depression, major, recurrent, in complete remission (HCC) Major depressive disorder, recurrent episode, in full remission Uncontrolled type 2 diabetes mellitus with hyperglycemia (HCC) Type 2 diabetes mellitus without complication, without long-term current use of insulin (HCC) [facility] Diagnosis Type 2 diabetes mellitus without complication, without long-term current use of insulin (HCC)- Primary Chronic nausea Nausea alone Primary hypertension Unspecified essential hypertension Secondary polycythemia Polycythemia, secondary Hyperlipidemia, mixed Mixed hyperlipidemia Urinary frequency Panic attacks Panic disorder without agoraphobia Fibromyalgia Mylagia and myositis, unspecified Low vitamin D level Serum calcium elevated Hypercalcemia Vitamin D deficiency, unspecified Visit for screening mammogram Other screening mammogram Asymptomatic postmenopausal status Screening for colon cancer Special screening for malignant neoplasms, colon Encounter for screening for lung cancer Other chronic gastritis without hemorrhage Weight loss Loss of weight Encounter for immunization Need for other specified prophylactic vaccination against single bacterial disease Chronic bronchitis, unspecified chronic bronchitis type (HCC) Depression, major, recurrent, in complete remission (HCC) Major depressive disorder, recurrent episode, in full remission Uncontrolled type 2 diabetes mellitus with hyperglycemia (HCC) Chronic nausea Nausea alone [facility] Diagnosis Type 2 diabetes mellitus without complication, without long-term current use of insulin (HCC)- Primary Chronic nausea Nausea alone Primary hypertension Unspecified essential hypertension Secondary polycythemia Polycythemia, secondary Hyperlipidemia, mixed Mixed hyperlipidemia Urinary frequency Panic attacks Panic disorder without agoraphobia Fibromyalgia Mylagia and myositis, unspecified Low vitamin D level Serum calcium elevated Hypercalcemia Vitamin D deficiency, unspecified Visit for screening mammogram Other screening mammogram Asymptomatic postmenopausal status Screening for colon cancer Special screening for malignant neoplasms, colon Encounter for screening for lung cancer Other chronic gastritis without hemorrhage Weight loss Loss of weight Encounter for immunization Need for other specified prophylactic vaccination against single bacterial disease Chronic bronchitis, unspecified chronic bronchitis type (HCC) Depression, major, recurrent, in complete remission (HCC) Major depressive disorder, recurrent episode, in full remission Uncontrolled type 2 diabetes mellitus with hyperglycemia (HCC) Mixed stress and urge urinary incontinence- Primary Mixed incontinence urge and stress (male)(female) documented in this encounter [facility] note* Diagnosis Type 2 diabetes mellitus without complication, without long-term current use of insulin (HCC)- Primary Chronic nausea Nausea alone Primary hypertension Unspecified essential hypertension Secondary polycythemia Polycythemia, secondary Hyperlipidemia, mixed Mixed hyperlipidemia Urinary frequency Panic attacks Panic disorder without agoraphobia Fibromyalgia Mylagia and myositis, unspecified Low vitamin D level Serum calcium elevated Hypercalcemia Vitamin D deficiency, unspecified Visit for screening mammogram Other screening mammogram Asymptomatic postmenopausal status Screening for colon cancer Special screening for malignant neoplasms, colon Encounter for screening for lung cancer Other chronic gastritis without hemorrhage Weight loss Loss of weight Encounter for immunization Need for other specified prophylactic vaccination against single bacterial disease Chronic bronchitis, unspecified chronic bronchitis type (HCC) Depression, major, recurrent, in complete remission (HCC) Major depressive disorder, recurrent episode, in full remission Uncontrolled type 2 diabetes mellitus with hyperglycemia (HCC) Recurrent UTI (urinary tract infection)- Primary Urinary tract infection, site not specified Chronic nausea Nausea alone Fibromyalgia Mylagia and myositis, unspecified Primary hypertension Unspecified essential hypertension Migraine with aura and without status migrainosus, not intractable Migraine with aura, without mention of intractable migraine without mention of status migrainosus Stress incontinence Female stress incontinence 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 Neoplasm of uncertain behavior of skin documented in this encounter [facility] note* Diagnosis Type 2 diabetes mellitus without complication, without long-term current use of insulin (HCC)- Primary Chronic nausea Nausea alone Primary hypertension Unspecified essential hypertension Secondary polycythemia Polycythemia, secondary Hyperlipidemia, mixed Mixed hyperlipidemia Urinary frequency Panic attacks Panic disorder without agoraphobia Fibromyalgia Mylagia and myositis, unspecified Low vitamin D level Serum calcium elevated Hypercalcemia Vitamin D deficiency, unspecified Visit for screening mammogram Other screening mammogram Asymptomatic postmenopausal status Screening for colon cancer Special screening for malignant neoplasms, colon Encounter for screening for lung cancer Other chronic gastritis without hemorrhage Weight loss Loss of weight Encounter for immunization Need for other specified prophylactic vaccination against single bacterial disease Chronic bronchitis, unspecified chronic bronchitis type (HCC) Depression, major, recurrent, in complete remission (HCC) Major depressive disorder, recurrent episode, in full remission Uncontrolled type 2 diabetes mellitus with hyperglycemia (HCC) Type 2 diabetes mellitus without complication, without long-term current use of insulin (HCC) [facility]* Diagnosis Type 2 diabetes mellitus without complication, without long-term current use of insulin (HCC)- Primary Chronic nausea Nausea alone Primary hypertension Unspecified essential hypertension Secondary polycythemia Polycythemia, secondary Hyperlipidemia, mixed Mixed hyperlipidemia Urinary frequency Panic attacks Panic disorder without agoraphobia Fibromyalgia Mylagia and myositis, unspecified Low vitamin D level Serum calcium elevated Hypercalcemia Vitamin D deficiency, unspecified Visit for screening mammogram Other screening mammogram Asymptomatic postmenopausal status Screening for colon cancer Special screening for malignant neoplasms, colon Encounter for screening for lung cancer Other chronic gastritis without hemorrhage Weight loss Loss of weight Encounter for immunization Need for other specified prophylactic vaccination against single bacterial disease Chronic bronchitis, unspecified chronic bronchitis type (HCC) Depression, major, recurrent, in complete remission (HCC) Major depressive disorder, recurrent episode, in full remission Uncontrolled type 2 diabetes mellitus with hyperglycemia (HCC) Subacute cough Cough documented in this encounter [facility] note* Diagnosis Type 2 diabetes mellitus without complication, without long-term current use of insulin (HCC)- Primary Chronic nausea Nausea alone Primary hypertension Unspecified essential hypertension Secondary polycythemia Polycythemia, secondary Hyperlipidemia, mixed Mixed hyperlipidemia Urinary frequency Panic attacks Panic disorder without agoraphobia Fibromyalgia Mylagia and myositis, unspecified Low vitamin D level Serum calcium elevated Hypercalcemia Vitamin D deficiency, unspecified Visit for screening mammogram Other screening mammogram Asymptomatic postmenopausal status Screening for colon cancer Special screening for malignant neoplasms, colon Encounter for screening for lung cancer Other chronic gastritis without hemorrhage Weight loss Loss of weight Encounter for immunization Need for other specified prophylactic vaccination against single bacterial disease Chronic bronchitis, unspecified chronic bronchitis type (HCC) Depression, major, recurrent, in complete remission (HCC) Major depressive disorder, recurrent episode, in full remission Uncontrolled type 2 diabetes mellitus with hyperglycemia (HCC) Recurrent UTI (urinary tract infection)- Primary Urinary tract infection, site not specified documented in this encounter [facility] note* Diagnosis Type 2 diabetes mellitus without complication, without long-term current use of insulin (HCC)- Primary Chronic nausea Nausea alone Primary hypertension Unspecified essential hypertension Secondary polycythemia Polycythemia, secondary Hyperlipidemia, mixed Mixed hyperlipidemia Urinary frequency Panic attacks Panic disorder without agoraphobia Fibromyalgia Mylagia and myositis, unspecified Low vitamin D level Serum calcium elevated Hypercalcemia Vitamin D deficiency, unspecified Visit for screening mammogram Other screening mammogram Asymptomatic postmenopausal status Screening for colon cancer Special screening for malignant neoplasms, colon Encounter for screening for lung cancer Other chronic gastritis without hemorrhage Weight loss Loss of weight Encounter for immunization Need for other specified prophylactic vaccination against single bacterial disease Chronic bronchitis, unspecified chronic bronchitis type (HCC) Depression, major, recurrent, in complete remission (HCC) Major depressive disorder, recurrent episode, in full remission Uncontrolled type 2 diabetes mellitus with hyperglycemia (HCC) Recurrent UTI (urinary tract infection)- Primary Urinary tract infection, site not specified [facility] Diagnosis Cough Type 2 diabetes mellitus without complication, without long-term current use of insulin (HCC)- Primary Chronic nausea Nausea alone Primary hypertension Unspecified essential hypertension Secondary polycythemia Polycythemia, secondary Hyperlipidemia, mixed Mixed hyperlipidemia Urinary frequency Panic attacks Panic disorder without agoraphobia Fibromyalgia Mylagia and myositis, unspecified Low vitamin D level Serum calcium elevated Hypercalcemia Vitamin D deficiency, unspecified Visit for screening mammogram Other screening mammogram Asymptomatic postmenopausal status Screening for colon cancer Special screening for malignant neoplasms, colon Encounter for screening for lung cancer Other chronic gastritis without hemorrhage Weight loss Loss of weight Encounter for immunization Need for other specified prophylactic vaccination against single bacterial disease Chronic bronchitis, unspecified chronic bronchitis type (HCC) Depression, major, recurrent, in complete remission (HCC) Major depressive disorder, recurrent episode, in full remission Uncontrolled type 2 diabetes mellitus with hyperglycemia (HCC) [facility] Diagnosis Type 2 diabetes mellitus without complication, without long-term current use of insulin (HCC)- Primary Chronic nausea Nausea alone Primary hypertension Unspecified essential hypertension Secondary polycythemia Polycythemia, secondary Hyperlipidemia, mixed Mixed hyperlipidemia Urinary frequency Panic attacks Panic disorder without agoraphobia Fibromyalgia Mylagia and myositis, unspecified Low vitamin D level Serum calcium elevated Hypercalcemia Vitamin D deficiency, unspecified Visit for screening mammogram Other screening mammogram Asymptomatic postmenopausal status Screening for colon cancer Special screening for malignant neoplasms, colon Encounter for screening for lung cancer Other chronic gastritis without hemorrhage Weight loss Loss of weight Encounter for immunization Need for other specified prophylactic vaccination against single bacterial disease Chronic bronchitis, unspecified chronic bronchitis type (HCC) Depression, major, recurrent, in complete remission (HCC) Major depressive disorder, recurrent episode, in full remission Uncontrolled type 2 diabetes mellitus with hyperglycemia (HCC) Recurrent UTI (urinary tract infection)- Primary Urinary tract infection, site not specified Fibromyalgia Mylagia and myositis, unspecified Type 2 diabetes mellitus without complication, without long-term current use of insulin (HCC) Chronic nausea Nausea alone Migraine without aura and without status migrainosus, not intractable Migraine without aura, without mention of intractable migraine without mention of status migrainosus Encounter for screening for lung cancer Screening for osteoporosis Special screening for osteoporosis Asymptomatic menopause Screening for colon cancer Special screening for malignant neoplasms, colon Uncontrolled type 2 diabetes mellitus with hyperglycemia (HCC) Encounter for immunization Need for other specified prophylactic vaccination against single bacterial disease [facility] Diagnosis Type 2 diabetes mellitus without complication, without long-term current use of insulin (HCC)- Primary Chronic nausea Nausea alone Primary hypertension Unspecified essential hypertension Secondary polycythemia Polycythemia, secondary Hyperlipidemia, mixed Mixed hyperlipidemia Urinary frequency Panic attacks Panic disorder without agoraphobia Fibromyalgia Mylagia and myositis, unspecified Low vitamin D level Serum calcium elevated Hypercalcemia Vitamin D deficiency, unspecified Visit for screening mammogram Other screening mammogram Asymptomatic postmenopausal status Screening for colon cancer Special screening for malignant neoplasms, colon Encounter for screening for lung cancer Other chronic gastritis without hemorrhage Weight loss Loss of weight Encounter for immunization Need for other specified prophylactic vaccination against single bacterial disease Chronic bronchitis, unspecified chronic bronchitis type (HCC) Depression, major, recurrent, in complete remission (HCC) Major depressive disorder, recurrent episode, in full remission Uncontrolled type 2 diabetes mellitus with hyperglycemia (HCC) Type 2 diabetes mellitus without complication, without long-term current use of insulin (HCC) [facility] Diagnosis Type 2 diabetes mellitus without complication, without long-term current use of insulin (HCC)- Primary Chronic nausea Nausea alone Primary hypertension Unspecified essential hypertension Secondary polycythemia Polycythemia, secondary Hyperlipidemia, mixed Mixed hyperlipidemia Urinary frequency Panic attacks Panic disorder without agoraphobia Fibromyalgia Mylagia and myositis, unspecified Low vitamin D level Serum calcium elevated Hypercalcemia Vitamin D deficiency, unspecified Visit for screening mammogram Other screening mammogram Asymptomatic postmenopausal status Screening for colon cancer Special screening for malignant neoplasms, colon Encounter for screening for lung cancer Other chronic gastritis without hemorrhage Weight loss Loss of weight Encounter for immunization Need for other specified prophylactic vaccination against single bacterial disease Chronic bronchitis, unspecified chronic bronchitis type (HCC) Depression, major, recurrent, in complete remission (HCC) Major depressive disorder, recurrent episode, in full remission Uncontrolled type 2 diabetes mellitus with hyperglycemia (HCC) Recurrent UTI (urinary tract infection) Urinary tract infection, site not specified documented in this encounter [facility] note* Diagnosis Type 2 diabetes mellitus without complication, without long-term current use of insulin (HCC)- Primary Chronic nausea Nausea alone Primary hypertension Unspecified essential hypertension Secondary polycythemia Polycythemia, secondary Hyperlipidemia, mixed Mixed hyperlipidemia Urinary frequency Panic attacks Panic disorder without agoraphobia Fibromyalgia Mylagia and myositis, unspecified Low vitamin D level Serum calcium elevated Hypercalcemia Vitamin D deficiency, unspecified Visit for screening mammogram Other screening mammogram Asymptomatic postmenopausal status Screening for colon cancer Special screening for malignant neoplasms, colon Encounter for screening for lung cancer Other chronic gastritis without hemorrhage Weight loss Loss of weight Encounter for immunization Need for other specified prophylactic vaccination against single bacterial disease Chronic bronchitis, unspecified chronic bronchitis type (HCC) Depression, major, recurrent, in complete remission (HCC) Major depressive disorder, recurrent episode, in full remission Uncontrolled type 2 diabetes mellitus with hyperglycemia (HCC) Type 2 diabetes mellitus without complication, without long-term current use of insulin (HCC) documented in this encounter [facility] note* Diagnosis Type 2 diabetes mellitus without complication, without long-term current use of insulin (HCC)- Primary Chronic nausea Nausea alone Primary hypertension Unspecified essential hypertension Secondary polycythemia Polycythemia, secondary Hyperlipidemia, mixed Mixed hyperlipidemia Urinary frequency Panic attacks Panic disorder without agoraphobia Fibromyalgia Mylagia and myositis, unspecified Low vitamin D level Serum calcium elevated Hypercalcemia Vitamin D deficiency, unspecified Visit for screening mammogram Other screening mammogram Asymptomatic postmenopausal status Screening for colon cancer Special screening for malignant neoplasms, colon Encounter for screening for lung cancer Other chronic gastritis without hemorrhage Weight loss Loss of weight Encounter for immunization Need for other specified prophylactic vaccination against single bacterial disease Chronic bronchitis, unspecified chronic bronchitis type (HCC) Depression, major, recurrent, in complete remission (HCC) Major depressive disorder, recurrent episode, in full remission Uncontrolled type 2 diabetes mellitus with hyperglycemia (HCC) Type 2 diabetes mellitus without complication, without long-term current use of insulin (HCC) documented in this encounter [facility] note* Diagnosis Type 2 diabetes mellitus without complication, without long-term current use of insulin (HCC)- Primary Chronic nausea Nausea alone Primary hypertension Unspecified essential hypertension Secondary polycythemia Polycythemia, secondary Hyperlipidemia, mixed Mixed hyperlipidemia Urinary frequency Panic attacks Panic disorder without agoraphobia Fibromyalgia Mylagia and myositis, unspecified Low vitamin D level Serum calcium elevated Hypercalcemia Vitamin D deficiency, unspecified Visit for screening mammogram Other screening mammogram Asymptomatic postmenopausal status Screening for colon cancer Special screening for malignant neoplasms, colon Encounter for screening for lung cancer Other chronic gastritis without hemorrhage Weight loss Loss of weight Encounter for immunization Need for other specified prophylactic vaccination against single bacterial disease Chronic bronchitis, unspecified chronic bronchitis type (HCC) Depression, major, recurrent, in complete remission (HCC) Major depressive disorder, recurrent episode, in full remission Uncontrolled type 2 diabetes mellitus with hyperglycemia (HCC) Chronic nausea Nausea alone documented in this encounter [facility] note* Diagnosis Type 2 diabetes mellitus without complication, without long-term current use of insulin (HCC)- Primary Chronic nausea Nausea alone Primary hypertension Unspecified essential hypertension Secondary polycythemia Polycythemia, secondary Hyperlipidemia, mixed Mixed hyperlipidemia Urinary frequency Panic attacks Panic disorder without agoraphobia Fibromyalgia Mylagia and myositis, unspecified Low vitamin D level Serum calcium elevated Hypercalcemia Vitamin D deficiency, unspecified Visit for screening mammogram Other screening mammogram Asymptomatic postmenopausal status Screening for colon cancer Special screening for malignant neoplasms, colon Encounter for screening for lung cancer Other chronic gastritis without hemorrhage Weight loss Loss of weight Encounter for immunization Need for other specified prophylactic vaccination against single bacterial disease Chronic bronchitis, unspecified chronic bronchitis type (HCC) Depression, major, recurrent, in complete remission Major depressive disorder, recurrent episode, in full remission Uncontrolled type 2 diabetes mellitus with hyperglycemia (HCC) Type 2 diabetes mellitus without complication, without long-term current use of insulin (HCC) documented in this encounter [facility] note* Diagnosis Type 2 diabetes mellitus without complication, without long-term current use of insulin (HCC)- Primary Chronic nausea Nausea alone Primary hypertension Unspecified essential hypertension Secondary polycythemia Polycythemia, secondary Hyperlipidemia, mixed Mixed hyperlipidemia Urinary frequency Panic attacks Panic disorder without agoraphobia Fibromyalgia Mylagia and myositis, unspecified Low vitamin D level Serum calcium elevated Hypercalcemia Vitamin D deficiency, unspecified Visit for screening mammogram Other screening mammogram Asymptomatic postmenopausal status Screening for colon cancer Special screening for malignant neoplasms, colon Encounter for screening for lung cancer Other chronic gastritis without hemorrhage Weight loss Loss of weight Encounter for immunization Need for other specified prophylactic vaccination against single bacterial disease Chronic bronchitis, unspecified chronic bronchitis type (HCC) Depression, major, recurrent, in complete remission Major depressive disorder, recurrent episode, in full remission Uncontrolled type 2 diabetes mellitus with hyperglycemia (HCC) Uncontrolled type 2 diabetes mellitus with hyperglycemia (HCC)- Primary documented in this encounter [facility] note* Diagnosis Type 2 diabetes mellitus without complication, without long-term current use of insulin (HCC)- Primary Chronic nausea Nausea alone Primary hypertension Unspecified essential hypertension Secondary polycythemia Polycythemia, secondary Hyperlipidemia, mixed Mixed hyperlipidemia Urinary frequency Panic attacks Panic disorder without agoraphobia Fibromyalgia Mylagia and myositis, unspecified Low vitamin D level Serum calcium elevated Hypercalcemia Vitamin D deficiency, unspecified Visit for screening mammogram Other screening mammogram Asymptomatic postmenopausal status Screening for colon cancer Special screening for malignant neoplasms, colon Encounter for screening for lung cancer Other chronic gastritis without hemorrhage Weight loss Loss of weight Encounter for immunization Need for other specified prophylactic vaccination against single bacterial disease Chronic bronchitis, unspecified chronic bronchitis type (HCC) Depression, major, recurrent, in complete remission Major depressive disorder, recurrent episode, in full remission Uncontrolled type 2 diabetes mellitus with hyperglycemia (HCC) Chronic nausea Nausea alone documented in this encounter [facility] note* Diagnosis Type 2 diabetes mellitus without complication, without long-term current use of insulin (HCC)- Primary Chronic nausea Nausea alone Primary hypertension Unspecified essential hypertension Secondary polycythemia Polycythemia, secondary Hyperlipidemia, mixed Mixed hyperlipidemia Urinary frequency Panic attacks Panic disorder without agoraphobia Fibromyalgia Mylagia and myositis, unspecified Low vitamin D level Serum calcium elevated Hypercalcemia Vitamin D deficiency, unspecified Visit for screening mammogram Other screening mammogram Asymptomatic postmenopausal status Screening for colon cancer Special screening for malignant neoplasms, colon Encounter for screening for lung cancer Other chronic gastritis without hemorrhage Weight loss Loss of weight Encounter for immunization Need for other specified prophylactic vaccination against single bacterial disease Chronic bronchitis, unspecified chronic bronchitis type (HCC) Depression, major, recurrent, in complete remission Major depressive disorder, recurrent episode, in full remission Uncontrolled type 2 diabetes mellitus with hyperglycemia (HCC) Dysuria- Primary Fibromyalgia Mylagia and myositis, unspecified Primary hypertension Unspecified essential hypertension Mixed stress and urge urinary incontinence Mixed incontinence urge and stress (male)(female) Tobacco use disorder Uncontrolled type 2 diabetes mellitus with hyperglycemia (HCC) Hyperlipidemia, mixed Mixed hyperlipidemia Chronic bronchitis, unspecified chronic bronchitis type (HCC) Obesity, Class II, BMI 35-39.9 Obesity, unspecified Recurrent UTI (urinary tract infection) Urinary tract infection, site not specified Type 2 diabetes mellitus without complication, without long-term current use of insulin (HCC) Vitamin D deficiency Unspecified vitamin D deficiency documented in this encounter [facility] note* Diagnosis Type 2 diabetes mellitus without complication, without long-term current use of insulin (HCC)- Primary Chronic nausea Nausea alone Primary hypertension Unspecified essential hypertension Secondary polycythemia Polycythemia, secondary Hyperlipidemia, mixed Mixed hyperlipidemia Urinary frequency Panic attacks Panic disorder without agoraphobia Fibromyalgia Mylagia and myositis, unspecified Low vitamin D level Serum calcium elevated Hypercalcemia Vitamin D deficiency, unspecified Visit for screening mammogram Other screening mammogram Asymptomatic postmenopausal status Screening for colon cancer Special screening for malignant neoplasms, colon Encounter for screening for lung cancer Other chronic gastritis without hemorrhage Weight loss Loss of weight Encounter for immunization Need for other specified prophylactic vaccination against single bacterial disease Chronic bronchitis, unspecified chronic bronchitis type (HCC) Depression, major, recurrent, in complete remission Major depressive disorder, recurrent episode, in full remission Uncontrolled type 2 diabetes mellitus with hyperglycemia (HCC) Uncontrolled type 2 diabetes mellitus with hyperglycemia (HCC)- Primary documented in this encounter [facility] note* Diagnosis Type 2 diabetes mellitus without complication, without long-term current use of insulin (HCC)- Primary Chronic nausea Nausea alone Primary hypertension Unspecified essential hypertension Secondary polycythemia Polycythemia, secondary Hyperlipidemia, mixed Mixed hyperlipidemia Urinary frequency Panic attacks Panic disorder without agoraphobia Fibromyalgia Mylagia and myositis, unspecified Low vitamin D level Serum calcium elevated Hypercalcemia Vitamin D deficiency, unspecified Visit for screening mammogram Other screening mammogram Asymptomatic postmenopausal status Screening for colon cancer Special screening for malignant neoplasms, colon Encounter for screening for lung cancer Other chronic gastritis without hemorrhage Weight loss Loss of weight Encounter for immunization Need for other specified prophylactic vaccination against single bacterial disease Chronic bronchitis, unspecified chronic bronchitis type (HCC) Depression, major, recurrent, in complete remission Major depressive disorder, recurrent episode, in full remission Uncontrolled type 2 diabetes mellitus with hyperglycemia (HCC) Recurrent UTI (urinary tract infection)- Primary Urinary tract infection, site not specified Hyperlipidemia, mixed Mixed hyperlipidemia Vitamin D deficiency Unspecified vitamin D deficiency documented in this encounter [facility] note* Diagnosis Type 2 diabetes mellitus without complication, without long-term current use of insulin (HCC)- Primary Chronic nausea Nausea alone Primary hypertension Unspecified essential hypertension Secondary polycythemia Polycythemia, secondary Hyperlipidemia, mixed Mixed hyperlipidemia Urinary frequency Panic attacks Panic disorder without agoraphobia Fibromyalgia Mylagia and myositis, unspecified Low vitamin D level Serum calcium elevated Hypercalcemia Vitamin D deficiency, unspecified Visit for screening mammogram Other screening mammogram Asymptomatic postmenopausal status Screening for colon cancer Special screening for malignant neoplasms, colon Encounter for screening for lung cancer Other chronic gastritis without hemorrhage Weight loss Loss of weight Encounter for immunization Need for other specified prophylactic vaccination against single bacterial disease Chronic bronchitis, unspecified chronic bronchitis type (HCC) Depression, major, recurrent, in complete remission Major depressive disorder, recurrent episode, in full remission Uncontrolled type 2 diabetes mellitus with hyperglycemia (HCC) Chronic nausea Nausea alone documented in this encounter [facility] note* Diagnosis Type 2 diabetes mellitus without complication, without long-term current use of insulin (HCC)- Primary Chronic nausea Nausea alone Primary hypertension Unspecified essential hypertension Secondary polycythemia Polycythemia, secondary Hyperlipidemia, mixed Mixed hyperlipidemia Urinary frequency Panic attacks Panic disorder without agoraphobia Fibromyalgia Mylagia and myositis, unspecified Low vitamin D level Serum calcium elevated Hypercalcemia Vitamin D deficiency, unspecified Visit for screening mammogram Other screening mammogram Asymptomatic postmenopausal status Screening for colon cancer Special screening for malignant neoplasms, colon Encounter for screening for lung cancer Other chronic gastritis without hemorrhage Weight loss Loss of weight Encounter for immunization Need for other specified prophylactic vaccination against single bacterial disease Chronic bronchitis, unspecified chronic bronchitis type (HCC) Depression, major, recurrent, in complete remission Major depressive disorder, recurrent episode, in full remission Uncontrolled type 2 diabetes mellitus with hyperglycemia (HCC) Acute bronchitis, unspecified organism- Primary Recurrent UTI (urinary tract infection) Urinary tract infection, site not specified documented in this encounter [facility] note* Diagnosis Type 2 diabetes mellitus without complication, without long-term current use of insulin (HCC)- Primary Chronic nausea Nausea alone Primary hypertension Unspecified essential hypertension Secondary polycythemia Polycythemia, secondary Hyperlipidemia, mixed Mixed hyperlipidemia Urinary frequency Panic attacks Panic disorder without agoraphobia Fibromyalgia Mylagia and myositis, unspecified Low vitamin D level Serum calcium elevated Hypercalcemia Vitamin D deficiency, unspecified Visit for screening mammogram Other screening mammogram Asymptomatic postmenopausal status Screening for colon cancer Special screening for malignant neoplasms, colon Encounter for screening for lung cancer Other chronic gastritis without hemorrhage Weight loss Loss of weight Encounter for immunization Need for other specified prophylactic vaccination against single bacterial disease Chronic bronchitis, unspecified chronic bronchitis type (HCC) Depression, major, recurrent, in complete remission Major depressive disorder, recurrent episode, in full remission Uncontrolled type 2 diabetes mellitus with hyperglycemia (HCC) Encounter for screening mammogram for breast cancer documented in this encounter [facility] note* Diagnosis Type 2 diabetes mellitus without complication, without long-term current use of insulin (HCC)- Primary Chronic nausea Nausea alone Primary hypertension Unspecified essential hypertension Secondary polycythemia Polycythemia, secondary Hyperlipidemia, mixed Mixed hyperlipidemia Urinary frequency Panic attacks Panic disorder without agoraphobia Fibromyalgia Mylagia and myositis, unspecified Low vitamin D level Serum calcium elevated Hypercalcemia Vitamin D deficiency, unspecified Visit for screening mammogram Other screening mammogram Asymptomatic postmenopausal status Screening for colon cancer Special screening for malignant neoplasms, colon Encounter for screening for lung cancer Other chronic gastritis without hemorrhage Weight loss Loss of weight Encounter for immunization Need for other specified prophylactic vaccination against single bacterial disease Chronic bronchitis, unspecified chronic bronchitis type (HCC) Depression, major, recurrent, in complete remission Major depressive disorder, recurrent episode, in full remission Uncontrolled type 2 diabetes mellitus with hyperglycemia (HCC) Chronic nausea Nausea alone documented in this encounter [facility] note* Diagnosis Type 2 diabetes mellitus without complication, without long-term current use of insulin (HCC)- Primary Chronic nausea Nausea alone Primary hypertension Unspecified essential hypertension Secondary polycythemia Polycythemia, secondary Hyperlipidemia, mixed Mixed hyperlipidemia Urinary frequency Panic attacks Panic disorder without agoraphobia Fibromyalgia Mylagia and myositis, unspecified Low vitamin D level Serum calcium elevated Hypercalcemia Vitamin D deficiency, unspecified Visit for screening mammogram Other screening mammogram Asymptomatic postmenopausal status Screening for colon cancer Special screening for malignant neoplasms, colon Encounter for screening for lung cancer Other chronic gastritis without hemorrhage Weight loss Loss of weight Encounter for immunization Need for other specified prophylactic vaccination against single bacterial disease Chronic bronchitis, unspecified chronic bronchitis type (HCC) Depression, major, recurrent, in complete remission Major depressive disorder, recurrent episode, in full remission Uncontrolled type 2 diabetes mellitus with hyperglycemia (HCC) Acute cough- Primary documented in this encounter [facility] note* Diagnosis Type 2 diabetes mellitus without complication, without long-term current use of insulin (HCC)- Primary Chronic nausea Nausea alone Primary hypertension Unspecified essential hypertension Secondary polycythemia Polycythemia, secondary Hyperlipidemia, mixed Mixed hyperlipidemia Urinary frequency Panic attacks Panic disorder without agoraphobia Fibromyalgia Mylagia and myositis, unspecified Low vitamin D level Serum calcium elevated Hypercalcemia Vitamin D deficiency, unspecified Visit for screening mammogram Other screening mammogram Asymptomatic postmenopausal status Screening for colon cancer Special screening for malignant neoplasms, colon Encounter for screening for lung cancer Other chronic gastritis without hemorrhage Weight loss Loss of weight Encounter for immunization Need for other specified prophylactic vaccination against single bacterial disease Chronic bronchitis, unspecified chronic bronchitis type (HCC) Depression, major, recurrent, in complete remission Major depressive disorder, recurrent episode, in full remission Uncontrolled type 2 diabetes mellitus with hyperglycemia (HCC) Gastroenteritis- Primary Other and unspecified noninfectious gastroenteritis and colitis Primary hypertension Unspecified essential hypertension Tobacco use disorder Uncontrolled type 2 diabetes mellitus with hyperglycemia (HCC) Vitamin B12 deficiency Other B-complex deficiencies Vitamin D deficiency Unspecified vitamin D deficiency [facility] Diagnosis Type 2 diabetes mellitus without complication, without long-term current use of insulin (HCC)- Primary Chronic nausea Nausea alone Primary hypertension Unspecified essential hypertension Secondary polycythemia Polycythemia, secondary Hyperlipidemia, mixed Mixed hyperlipidemia Urinary frequency Panic attacks Panic disorder without agoraphobia Fibromyalgia Mylagia and myositis, unspecified Low vitamin D level Serum calcium elevated Hypercalcemia Vitamin D deficiency, unspecified Visit for screening mammogram Other screening mammogram Asymptomatic postmenopausal status Screening for colon cancer Special screening for malignant neoplasms, colon Encounter for screening for lung cancer Other chronic gastritis without hemorrhage Weight loss Loss of weight Encounter for immunization Need for other specified prophylactic vaccination against single bacterial disease Chronic bronchitis, unspecified chronic bronchitis type (HCC) Depression, major, recurrent, in complete remission Major depressive disorder, recurrent episode, in full remission Uncontrolled type 2 diabetes mellitus with hyperglycemia (HCC) Chronic nausea Nausea alone [facility] Diagnosis Type 2 diabetes mellitus without complication, without long-term current use of insulin (HCC)- Primary Chronic nausea Nausea alone Primary hypertension Unspecified essential hypertension Secondary polycythemia Polycythemia, secondary Hyperlipidemia, mixed Mixed hyperlipidemia Urinary frequency Panic attacks Panic disorder without agoraphobia Fibromyalgia Mylagia and myositis, unspecified Low vitamin D level Serum calcium elevated Hypercalcemia Vitamin D deficiency, unspecified Visit for screening mammogram Other screening mammogram Asymptomatic postmenopausal status Screening for colon cancer Special screening for malignant neoplasms, colon Encounter for screening for lung cancer Other chronic gastritis without hemorrhage Weight loss Loss of weight Encounter for immunization Need for other specified prophylactic vaccination against single bacterial disease Chronic bronchitis, unspecified chronic bronchitis type (HCC) Depression, major, recurrent, in complete remission Major depressive disorder, recurrent episode, in full remission Uncontrolled type 2 diabetes mellitus with hyperglycemia (HCC) Other chronic gastritis without hemorrhage [facility] Additional Instructions Take antibiotics until completion. Use Reglan for nausea. If you feel worse, please return.[facility] Work Phone: Hospital Discharge instructionsAdditional Instructions The CT of your head revealed no acute skull fracture or brain bleed. Your chest CT revealed no rib fracture pneumothorax/hole in the lung or signs of infection. Your urine sample has bacteria but no associated white blood cells or nitrites and therefore this is most likely normal dante/colonization and not a true UTI. Your urine will be sent for culture however to ensure there is no infection. Please continue all of your home medications as directed by your doctor and return to the ER should you have any further concerns. It will take on average 1 to 2 weeks for the rib contusion to heal and therefore you may have pain during this timeWooMercy Health [facility] Work Phone: Reason for referral (narrative)* Outpatient Procedure (Routine) - Pending Review Specialty Diagnoses / Procedures Referred By Pebbles ernandez Referred To [facility] Diagnoses COPD with chronic bronchitis (HCC) Procedures SPIROMETRY BASELINE ONLY SPMTRY W/VC EXPIRATORY EVER W/WO MXML VOL VNTJ Joyce Perry PA-C [address] [id number] [facility] [place] [address] [place] [id number] Referral ID Status Reason Start Date Expiration Date Visits Requested Visits Authorized [id number] Pending Review Auto-Generat ed Referral 11/22/2021 12/22/2022 1 1 [facility] for referral (narrative)* Outpatient Procedure (Routine) - Closed Specialty Diagnoses / Procedures Referred By Pebbles ernandez Ref[facility] Diagnoses Intermittent chest pain Procedures ECG COMPLETE ECG ROUTINE ECG W/LEAST 12 LDS W/I&R Yasmany Holland PA-C [address] [place] [address] [facility] [place] [address] [place] [address] Referral ID Status Reason Start Date Expiration Date V isits Requested Visits Authorized [id number] Closed Auto-Generate d Referral 12/18/2021 12/18/2022 1 1 T [facility] for referral (narrative)* Diagnostic Procedure Only (Routine) - Pending Review Specialty Diagnoses / Procedures Referred By Contgabriela t Referred To Contact [facility] Diagnoses Encounter for screening mammogram for breast cancer Procedures JANELL SCREENING SCREENING MAMMOGRAPHY BI 2-VIEW BREAST INC Ricci Michel MD [address] [place] [address] [facility] [address] [place] [address] Referral ID Status Reason Start Date Expiration Date Visits Requested Visits Authorized [id number] Pending Review Auto-Generat ed Referral 12/11/2022 01/10/2024 1 1 [facility] for referral (narrative)* Diagnostic Procedure Only (Routine) - New Request Specialty Diagnoses / Procedures Referred By Contac t Referred To Contact [facility] Diagnoses Encounter for screening mammogram for breast cancer Procedures JANELL SCREENING W KOKO SCREENING DIGITAL BREAST TOMOSYNTHESIS BI SCREENING MAMMOGRAPHY BI 2-VIEW BREAST INC Ricci Michel MD [address] [place] [address] [facility] [address] [place] [address] Referral ID Status Reason Start Date Expiration Date Visits Requested Visits Authorized [id number] New Request Auto-Generat ed Referral 03/17/2024 04/16/2025 1 [facility]No reason for referral information availableWBerger Hospital Work Phone: Summary Purpose Family History No Family History Records Found Relationship Condition Age at Onset Recorded Date/T lily brother Diabetes mellitus Unknown Hypertension Unknown Advance Directives No Advanced Directives Records FoundDocuments on File Type Date Recorded Patient Bankruptcy Paralegal Expl anation Advance Directive(s) Advance Directive(s) 12/29/2020 7:36 AM Advance Directive(s) 12/06/2015 7:48 AM Advance Directive(s) 11/21/2015 3:45 PM Advance Directive(s) 11/06/2015 2:38 PM Documents on File Type Date Recorded Patient Bankruptcy Paralegal Expl anation Advance Directive(s) Advance Directive(s) 12/29/2020 7:36 AM Advance Directive(s) 12/06/2015 7:48 AM Advance Directive(s) 11/21/2015 3:45 PM Advance Directive(s) 11/06/2015 2:38 PM Advance Directive Response Recorded Date/ Time Advance Directives No March 30 12:37am Living Will No January 02, 2022 1 1:41am Power of Marble Machine Operator No January 02, 2022 11:41am Advance Directive Response Recorded Date/ Time Advance Directives No March 30 12:37am Living Will No January 17, 2022 4 :35pm Power of [employer] Machine Operator No January 17, 2022 4:35pm Advance Directive Response Recorded Date/ Time Advance Directives No March 30 12:37am Living Will No January 17, 2022 6 :40pm Power of [employer] Machine Operator No January 17, 2022 6:40pm Advance Directive Response Recorded Date/ Time Advance Directives No March 30 12:37am Living Will No April 30 10:02pm Power of Mar[employer] Machine Operator No April 30, 2022 10:02pm Advance Directive Response Recorded Date/ Time Advance Directives No March 30 12:37am Living Will No May 01 1:40am Power of Marble Machine Operator No May 01, 2022 1:40am Advance Directive Response Recorded Date/ Time Advance Directives No March 30 12:37am Living Will No June 11 8:40am Power of Mar[employer] Machine Operator No June 11, 2022 8:40am Advance Directive Response Recorded Date/ Time Advance Directives No March 30 12:37am Living Will No November 14, 2022 11:10am Power of [employer] Machine Operator No November 14 11:10am Advance Directive Response Recorded Date/ Time Advance Directives No March 29 11:37pm Living Will No August 04 023 1:02pm Power of Marble Machine Operator No August 04, 2023 1:02pm Advance Directive Response Recorded Date/ Time Advance Directives No March 29 11:37pm Living Will No August 04 023 9:49pm Power of Marble Machine Operator No August 04, 2023 9:49pm Advance Directive Response Recorded Date/ Time Do you have a Healthcare Power of Marble Machine Operator? No May 15, 2025 12:25am Advance Directives No March 30 12:37am Medications Administered Section Inactive Administered Medications - up to 3 most recent administrations Medication Order MAR Action Action Date Dose Rate Site ondansetron 4 mg injection (ZOFRAN) 4 mg, INTRAMUSCULAR, ONCE, 1 dose, On Fri12/18/21 at 1130 Given 12/18/2021 12:14 PM EDT 4 mg Deltoid, Right Reason for Referral Specialty Diagnoses / Procedures Referred By Pebbles ernandez Referred To Contact Yasmany Holland PA-C [address] [place] [address] Referral ID Status Reason Start Date Expiration Date Visits Re quested Visits Authorized [id number] Closed 1 1 Specialty Diagnoses / Procedures Referred By Pebbles ernandez Referred To Contact Urology Diagnoses Urinary incontinence, unspecified type History of recurrent UTIs Procedures CONSULT TO UROLOGY OFFICE/OUTPATIENT [facility] 60-74 MINUTES Ricci Cole MD [address] [place] [address] Referral ID Status Reason Start Date Expiration Date Visits Requested Visits Authorized [id number] Authorized PCP Requested Referral 01/05/2022 01/05/2023 1 1 Specialty Diagnoses / Procedures Referred By Pebbles ernandez Referred To Contact Gastroenterology Diagnoses Nausea Other chronic gastritis without hemorrhage Screening for colon cancer Procedures CONSULT TO GASTROENTEROLOGY OFFICE/OUTPATIENT [facility] 60-[place] [address] [place] [id number] Referral ID Status Reason Start Date Expiration Date Visits Requested Visits Authorized [id number] Authorized PCP Requested Referral 01/05/2022 01/05/2023 1 1 Specialty Diagnoses / Procedures Referred By Contac t Referred To Contact BR IMAGING Diagnoses Screening breast examination Procedures JANELL SCREENING SCREENING MAMMOGRAPHY BI 2-VIEW BREAST INC CAD Ricci Cole MD [address] [place] [address] [facility] [address] [place] [address] Referral ID Status Reason Start Date Expiration Date Visits Requested Visits Authorized [id number] Pending Review Auto-Generat ed Referral 01/05/2022 02/04/2023 1 1 Specialty Diagnoses / Procedures Referred By Contac t Referred To Contact Ophthalmology Diagnoses Type 2 diabetes mellitus without complication, without long-term current use of insulin (HCC) Procedures CONSULT TO OPHTHALMOLOGY OFFICE/OUTPATIENT NEW HIGH MDM 60-74 MINUTES Yasmany Holland PA-C [address] [place] [phone] Referral ID Status Reason Start Date Expiration Date Visits Requested Visits Authorized [id number] Authorized PCP Requested Referral 01/29/2022 01/29/2023 1 1 Specialty Diagnoses / Procedures Referred By Contac t Referred To Contact Diagnoses Encounter for screening for lung cancer Procedures CONSULT LUNG CANCER SCREENING CLINIC Nanci Huber, NASEEM.LINE THERAPIST [address] [place] [address] Referral ID Status Reason Start Date Expiration Date Visits Requested Visits Authorized [id number] Ref Not Required PCP Requested Referral 04/15/2023 07/14/2023 1 1 Specialty Diagnoses / Procedures Referred By Contac t Referred To Contact BR IMAGING Diagnoses Visit for screening mammogram Procedures JANELL SCREENING SCREENING MAMMOGRAPHY BI 2-VIEW BREAST INC CAD Nanci Huber, COURT MESSENGER.LINE THERAPIST [address] [place] [address] [facility] [address] [address] Referral ID Status Reason Start Date Expiration Date Visits Requested Visits Authorized [id number] Pending Review Auto-Generat ed Referral 04/15/2023 05/14/2024 1 1 Specialty Diagnoses / Procedures Referred By Contac t Referred To Contact Dermatology Diagnoses 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 Procedures CONSULT TO DERMATOLOGY Smiley Melo APRN.LINE THERAPIST [address] [place] [address] Referral ID Status Reason Start Date Expiration Date Visits Requested Visits Authorized [id number] Ref Not Required PCP Requested Referral 04/29/2024 04/29/2025 1 1 Specialty Diagnoses / Procedures Referred By Contac t Referred To Contact Urology Diagnoses Recurrent UTI (urinary tract infection) Procedures CONSULT TO UROLOGY OFFICE/OUTPATIENT [facility] MDM 60 MINUTES Smiley Melo APRN.LINE THERAPIST [address] [place] [phone] Referral ID Status Reason Start Date Expiration Date Visits Requested Visits Authorized [id number] Authorized PCP Requested Referral 05/11/2024 05/11/2025 1 1 Specialty Diagnoses / Procedures Referred By Contac t Referred To Contact Ophthalmology Diagnoses Type 2 diabetes mellitus without complication, without long-term current use of insulin (HCC) Procedures CONSULT TO OPHTHALMOLOGY OFFICE/OUTPATIENT [facility] MDM 60 MINUTES Smiley Melo APRN.LINE THERAPIST [address] [place] [phone] Referral ID Status Reason Start Date Expiration Date Visits Requested Visits Authorized [id number] Authorized PCP Requested Referral 07/26/2025 1 1 Specialty Diagnoses / Procedures Referred By Contac t Referred To Contact XR IMAGING Diagnoses Screening for osteoporosis Asymptomatic menopause Procedures DXA-AXIAL SKELETON DXA BONE DENSITY STUDY / SITES AXIAL SKEL Smiley Melo APRN.LINE THERAPIST [address] [place] [address] [place] [address] Referral ID Status Reason Start Date Expiration Date Visits Requested Visits Authorized [id number] Authorized Auto-Generat ed Referral 07/26/2024 08/25/2025 1 1 Specialty Diagnoses / Procedures Referred By Contac t Referred To Contact Diagnoses Encounter for screening for lung cancer Procedures CONSULT LUNG CANCER SCREENING CLINIC Smiley Melo APRN.LINE THERAPIST [address] [place] [address] Referral ID Status Reason Start Date Expiration Date Visits Requested Visits Authorized [id number] Ref Not Required PCP Requested Referral 07/26/2024 10/24/2024 1 1 Chief Complaint and Reason for Visit Chief Complaint bronchitis, UTI Chief Complaint bronchitis, UTI esbl uti abd Reason for Visit UTI due to extended- spectrum beta lactamase (ESBL) producing Escherichia coli Chief Complaint bronchitis, UTI esbl uti abd esbl uti esbl uti esbl uti esbl uti esbl uti Reason for Visit Leukocytosis SIRS (systemic inflammatory response syndrome) Urinary tract infection UTI due to extended-spectrum beta lactamase (ESBL) producing Escherichia coli Diabetes Chief Complaint bronchitis, UTI esbl uti abd esbl uti esbl uti esbl uti esbl uti esbl uti NAUSEA DEBILITY WITH MECHANICAL FALLS, UTI Reason for Visit Leukocytosis SIRS (systemic inflammatory response syndrome) Intractable nausea and vomiting Nausea Acute encephalopathy Acute UTI Sepsis Type 2 diabetes mellitus without complications Chief Complaint esbl uti abd esbl uti esbl uti esbl uti esbl uti esbl uti NAUSEA DEBILITY WITH MECHANICAL FALLS, UTI DEBILITY WITH MECHANICAL FALLS, UTI DEBILITY WITH MECHANICAL FALLS, UTI DEBILITY WITH MECHANICAL FALLS, UTI IV antibiotic IV antibiotic Reason for Visit Leukocytosis SIRS (systemic inflammatory response syndrome) Intractable nausea and vomiting Nausea Acute encephalopathy Acute UTI Chief Complaint esbl uti abd esbl uti esbl uti esbl uti esbl uti esbl uti NAUSEA DEBILITY WITH MECHANICAL FALLS, UTI DEBILITY WITH MECHANICAL FALLS, UTI DEBILITY WITH MECHANICAL FALLS, UTI DEBILITY WITH MECHANICAL FALLS, UTI IV antibiotic IV antibiotic IV antibiotic IV antibiotic IV antibiotic IV antibiotic Reason for Visit Leukocytosis SIRS (systemic inflammatory response syndrome) Intractable nausea and vomiting Nausea Acute encephalopathy Acute UTI Chief Complaint esbl uti abd esbl uti esbl uti esbl uti esbl uti esbl uti NAUSEA DEBILITY WITH MECHANICAL FALLS, UTI DEBILITY WITH MECHANICAL FALLS, UTI DEBILITY WITH MECHANICAL FALLS, UTI DEBILITY WITH MECHANICAL FALLS, UTI IV antibiotic IV antibiotic IV antibiotic IV antibiotic IV antibiotic IV antibiotic labs from midline IV antibiotic Reason for Visit Leukocytosis SIRS (systemic inflammatory response syndrome) Intractable nausea and vomiting Nausea Acute encephalopathy Acute UTI Chief Complaint NAUSEA DEBILITY WITH MECHANICAL FALLS, UTI DEBILITY WITH MECHANICAL FALLS, UTI DEBILITY WITH MECHANICAL FALLS, UTI DEBILITY WITH MECHANICAL FALLS, UTI IV antibiotic IV antibiotic IV antibiotic IV antibiotic IV antibiotic IV antibiotic labs from midline IV antibiotic Reason for Visit Intractable nausea a nd vomiting Nausea Acute encephalopathy Acute UTI Chief Complaint GENERAL ILLNESS Chief Complaint UTI,SUSPECT ESBL Reason for Visit Acute UTI Anxiety and depression Diabetes GERD (gastroesophageal reflux disease) Sepsis COPD (chronic obstructive pulmonary disease) Fibromyalgia Hypertension Tobacco abuse Chief Complaint UTI,SUSPECT ESBL UTI,SUSPECT ESBL UTI,SUSPECT ESBL Reason for Visit Acute UTI Anxiety and depression Diabetes GERD (gastroesophageal reflux disease) Leukocytosis Nausea COPD (chronic obstructive pulmonary disease) Fibromyalgia Hypertension Tobacco abuse Chief Complaint Admit Date fallMay 15, 2025 12:24am Additional Source Comments INFORMATION SOURCE (unrecogn ized section and content) DATE CREATED AUTHOR [facility]/2020 [facility] DATE CREATED AUTHOR AUTHOR'S ORGANIZ ATION 12/31/2020 [facility] DATE CREATED AUTHOR AUTHOR'S ORGANIZ ATION 07/23/2021 [facility] DATE CREATED AUTHOR AUTHOR'S ORGANIZ ATION 06/10/2025 [facility] DATE CREATED AUTHOR AUTHOR'S ORGANIZ ATION 06/23/2025 [facility] Source Comments (unrecognize d section and content) In the event this informatio n is protected by the Federal Confidentiality of Alcohol and Drug Abuse Patient Records regulations: The Federal rules restrict any use of the information to criminally investigate or prosecute any alcohol or drug abuse patient.[facility] the event this information is protected by the Federal Confidentiality of Alcohol and Drug Abuse Patient Records regulations: The Federal rules restrict any use of the information to criminally investigate or prosecute any alcohol or drug abuse patient.[facility] the event this information is protected by the Federal Confidentiality of Alcohol and Drug Abuse Patient Records regulations: The Federal rules restrict any use of the information to criminally investigate or prosecute any alcohol or drug abuse patient.[facility]In the event this information is protected by the Federal Confidentiality of Alcohol and Drug Abuse Patient Records regulations: The Federal rules restrict any use of the information to criminally investigate or prosecute any alcohol or drug abuse patient.[facility]In the event this information is protected by the Federal Confidentiality of Alcohol and Drug Abuse Patient Records regulations: The Federal rules restrict any use of the information to criminally investigate or prosecute any alcohol or drug abuse patient.[facility]In the event this information is protected by the Federal Confidentiality of Alcohol and Drug Abuse Patient Records regulations: The Federal rules restrict any use of the information to criminally investigate or prosecute any alcohol or drug abuse patient.[facility]In the event this information is protected by the Federal Confidentiality of Alcohol and Drug Abuse Patient Records regulations: The Federal rules restrict any use of the information to criminally investigate or prosecute any alcohol or drug abuse patient.[facility] HospitalIn the event this information is protected by the Federal Confidentiality of Alcohol and Drug Abuse Patient Records regulations: The Federal rules restrict any use of the information to criminally investigate or prosecute any alcohol or drug abuse patient.[facility]In the event this information is protected by the Federal Confidentiality of Alcohol and Drug Abuse Patient Records regulations: The Federal rules restrict any use of the information to criminally investigate or prosecute any alcohol or drug abuse patient.[facility] HospitalIn the event this information is protected by the Federal Confidentiality of Alcohol and Drug Abuse Patient Records regulations: The Federal rules restrict any use of the information to criminally investigate or prosecute any alcohol or drug abuse patient.[facility] HospitalIn the event this information is protected by the Federal Confidentiality of Alcohol and Drug Abuse Patient Records regulations: The Federal rules restrict any use of the information to criminally investigate or prosecute any alcohol or drug abuse patient.[facility] HospitalIn the event this information is protected by the Federal Confidentiality of Alcohol and Drug Abuse Patient Records regulations: The Federal rules restrict any use of the information to criminally investigate or prosecute any alcohol or drug abuse patient.[facility] HospitalIn the event this information is protected by the Federal Confidentiality of Alcohol and Drug Abuse Patient Records regulations: The Federal rules restrict any use of the information to criminally investigate or prosecute any alcohol or drug abuse patient.[facility] HospitalIn the event this information is protected by the Federal Confidentiality of Alcohol and Drug Abuse Patient Records regulations: The Federal rules restrict any use of the information to criminally investigate or prosecute any alcohol or drug abuse patient.[facility] HospitalIn the event this information is protected by the Federal Confidentiality of Alcohol and Drug Abuse Patient Records regulations: The Federal rules restrict any use of the information to criminally investigate or prosecute any alcohol or drug abuse patient.[facility] HospitalIn the event this information is protected by the Federal Confidentiality of Alcohol and Drug Abuse Patient Records regulations: The Federal rules restrict any use of the information to criminally investigate or prosecute any alcohol or drug abuse patient.[facility] HospitalIn the event this information is protected by the Federal Confidentiality of Alcohol and Drug Abuse Patient Records regulations: The Federal rules restrict any use of the information to criminally investigate or prosecute any alcohol or drug abuse patient.[facility] HospitalIn the event this information is protected by the Federal Confidentiality of Alcohol and Drug Abuse Patient Records regulations: The Federal rules restrict any use of the information to criminally investigate or prosecute any alcohol or drug abuse patient.[facility] HospitalIn the event this information is protected by the Federal Confidentiality of Alcohol and Drug Abuse Patient Records regulations: The Federal rules restrict any use of the information to criminally investigate or prosecute any alcohol or drug abuse patient.[facility] HospitalIn the event this information is protected by the Federal Confidentiality of Alcohol and Drug Abuse Patient Records regulations: The Federal rules restrict any use of the information to criminally investigate or prosecute any alcohol or drug abuse patient.[facility] HospitalIn the event this information is protected by the Federal Confidentiality of Alcohol and Drug Abuse Patient Records regulations: The Federal rules restrict any use of the information to criminally investigate or prosecute any alcohol or drug abuse patient.[facility] HospitalIn the event this information is protected by the Federal Confidentiality of Alcohol and Drug Abuse Patient Records regulations: The Federal rules restrict any use of the information to criminally investigate or prosecute any alcohol or drug abuse patient.[facility] HospitalIn the event this information is protected by the Federal Confidentiality of Alcohol and Drug Abuse Patient Records regulations: The Federal rules restrict any use of the information to criminally investigate or prosecute any alcohol or drug abuse patient.[facility] HospitalIn the event this information is protected by the Federal Confidentiality of Alcohol and Drug Abuse Patient Records regulations: The Federal rules restrict any use of the information to criminally investigate or prosecute any alcohol or drug abuse patient.[facility] HospitalIn the event this information is protected by the Federal Confidentiality of Alcohol and Drug Abuse Patient Records regulations: The Federal rules restrict any use of the information to criminally investigate or prosecute any alcohol or drug abuse patient.[facility] HospitalIn the event this information is protected by the Federal Confidentiality of Alcohol and Drug Abuse Patient Records regulations: The Federal rules restrict any use of the information to criminally investigate or prosecute any alcohol or drug abuse patient.[facility] HospitalIn the event this information is protected by the Federal Confidentiality of Alcohol and Drug Abuse Patient Records regulations: The Federal rules restrict any use of the information to criminally investigate or prosecute any alcohol or drug abuse patient.[facility] HospitalIn the event this information is protected by the Federal Confidentiality of Alcohol and Drug Abuse Patient Records regulations: The Federal rules restrict any use of the information to criminally investigate or prosecute any alcohol or drug abuse patient.[facility] HospitalIn the event this information is protected by the Federal Confidentiality of Alcohol and Drug Abuse Patient Records regulations: The Federal rules restrict any use of the information to criminally investigate or prosecute any alcohol or drug abuse patient.[facility] HospitalIn the event this information is protected by the Federal Confidentiality of Alcohol and Drug Abuse Patient Records regulations: The Federal rules restrict any use of the information to criminally investigate or prosecute any alcohol or drug abuse patient.[facility] HospitalIn the event this information is protected by the Federal Confidentiality of Alcohol and Drug Abuse Patient Records regulations: The Federal rules restrict any use of the information to criminally investigate or prosecute any alcohol or drug abuse patient.[facility] HospitalIn the event this information is protected by the Federal Confidentiality of Alcohol and Drug Abuse Patient Records regulations: The Federal rules restrict any use of the information to criminally investigate or prosecute any alcohol or drug abuse patient.[facility] HospitalIn the event this information is protected by the Federal Confidentiality of Alcohol and Drug Abuse Patient Records regulations: The Federal rules restrict any use of the information to criminally investigate or prosecute any alcohol or drug abuse patient.[facility] HospitalIn the event this information is protected by the Federal Confidentiality of Alcohol and Drug Abuse Patient Records regulations: The Federal rules restrict any use of the information to criminally investigate or prosecute any alcohol or drug abuse patient.[facility] HospitalIn the event this information is protected by the Federal Confidentiality of Alcohol and Drug Abuse Patient Records regulations: The Federal rules restrict any use of the information to criminally investigate or prosecute any alcohol or drug abuse patient.[facility] HospitalIn the event this information is protected by the Federal Confidentiality of Alcohol and Drug Abuse Patient Records regulations: The Federal rules restrict any use of the information to criminally investigate or prosecute any alcohol or drug abuse patient.[facility] HospitalIn the event this information is protected by the Federal Confidentiality of Alcohol and Drug Abuse Patient Records regulations: The Federal rules restrict any use of the information to criminally investigate or prosecute any alcohol or drug abuse patient.[facility] HospitalIn the event this information is protected by the Federal Confidentiality of Alcohol and Drug Abuse Patient Records regulations: The Federal rules restrict any use of the information to criminally investigate or prosecute any alcohol or drug abuse patient.[facility] HospitalIn the event this information is protected by the Federal Confidentiality of Alcohol and Drug Abuse Patient Records regulations: The Federal rules restrict any use of the information to criminally investigate or prosecute any alcohol or drug abuse patient.[facility] HospitalIn the event this information is protected by the Federal Confidentiality of Alcohol and Drug Abuse Patient Records regulations: The Federal rules restrict any use of the information to criminally investigate or prosecute any alcohol or drug abuse patient.[facility] HospitalIn the event this information is protected by the Federal Confidentiality of Alcohol and Drug Abuse Patient Records regulations: The Federal rules restrict any use of the information to criminally investigate or prosecute any alcohol or drug abuse patient.[facility] HospitalIn the event this information is protected by the Federal Confidentiality of Alcohol and Drug Abuse Patient Records regulations: The Federal rules restrict any use of the information to criminally investigate or prosecute any alcohol or drug abuse patient.[facility] HospitalIn the event this information is protected by the Federal Confidentiality of Alcohol and Drug Abuse Patient Records regulations: The Federal rules restrict any use of the information to criminally investigate or prosecute any alcohol or drug abuse patient.[facility] HospitalIn the event this information is protected by the Federal Confidentiality of Alcohol and Drug Abuse Patient Records regulations: The Federal rules restrict any use of the information to criminally investigate or prosecute any alcohol or drug abuse patient.[facility] HospitalIn the event this information is protected by the Federal Confidentiality of Alcohol and Drug Abuse Patient Records regulations: The Federal rules restrict any use of the information to criminally investigate or prosecute any alcohol or drug abuse patient.[facility] HospitalIn the event this information is protected by the Federal Confidentiality of Alcohol and Drug Abuse Patient Records regulations: The Federal rules restrict any use of the information to criminally investigate or prosecute any alcohol or drug abuse patient.[facility] HospitalIn the event this information is protected by the Federal Confidentiality of Alcohol and Drug Abuse Patient Records regulations: The Federal rules restrict any use of the information to criminally investigate or prosecute any alcohol or drug abuse patient.[facility] HospitalIn the event this information is protected by the Federal Confidentiality of Alcohol and Drug Abuse Patient Records regulations: The Federal rules restrict any use of the information to criminally investigate or prosecute any alcohol or drug abuse patient.[facility] HospitalIn the event this information is protected by the Federal Confidentiality of Alcohol and Drug Abuse Patient Records regulations: The Federal rules restrict any use of the information to criminally investigate or prosecute any alcohol or drug abuse patient.[facility] HospitalIn the event this information is protected by the Federal Confidentiality of Alcohol and Drug Abuse Patient Records regulations: The Federal rules restrict any use of the information to criminally investigate or prosecute any alcohol or drug abuse patient.[facility] HospitalIn the event this information is protected by the Federal Confidentiality of Alcohol and Drug Abuse Patient Records regulations: The Federal rules restrict any use of the information to criminally investigate or prosecute any alcohol or drug abuse patient.[facility] HospitalIn the event this information is protected by the Federal Confidentiality of Alcohol and Drug Abuse Patient Records regulations: The Federal rules restrict any use of the information to criminally investigate or prosecute any alcohol or drug abuse patient.[facility] HospitalIn the event this information is protected by the Federal Confidentiality of Alcohol and Drug Abuse Patient Records regulations: The Federal rules restrict any use of the information to criminally investigate or prosecute any alcohol or drug abuse patient.[facility] HospitalIn the event this information is protected by the Federal Confidentiality of Alcohol and Drug Abuse Patient Records regulations: The Federal rules restrict any use of the information to criminally investigate or prosecute any alcohol or drug abuse patient.[facility] HospitalIn the event this information is protected by the Federal Confidentiality of Alcohol and Drug Abuse Patient Records regulations: The Federal rules restrict any use of the information to criminally investigate or prosecute any alcohol or drug abuse patient.[facility] HospitalIn the event this information is protected by the Federal Confidentiality of Alcohol and Drug Abuse Patient Records regulations: The Federal rules restrict any use of the information to criminally investigate or prosecute any alcohol or drug abuse patient.[facility]In the event this information is protected by the Federal Confidentiality of Alcohol and Drug Abuse Patient Records regulations: The Federal rules restrict any use of the information to criminally investigate or prosecute any alcohol or drug abuse patient.[facility]In the event this information is protected by the Federal Confidentiality of Alcohol and Drug Abuse Patient Records regulations: The Federal rules restrict any use of the information to criminally investigate or prosecute any alcohol or drug abuse patient.[facility]In the event this information is protected by the Federal Confidentiality of Alcohol and Drug Abuse Patient Records regulations: The Federal rules restrict any use of the information to criminally investigate or prosecute any alcohol or drug abuse patient.[facility] HospitalIn the event this information is protected by the Federal Confidentiality of Alcohol and Drug Abuse Patient Records regulations: The Federal rules restrict any use of the information to criminally investigate or prosecute any alcohol or drug abuse patient.[facility] HospitalIn the event this information is protected by the Federal Confidentiality of Alcohol and Drug Abuse Patient Records regulations: The Federal rules restrict any use of the information to criminally investigate or prosecute any alcohol or drug abuse patient.[facility] HospitalIn the event this information is protected by the Federal Confidentiality of Alcohol and Drug Abuse Patient Records regulations: The Federal rules restrict any use of the information to criminally investigate or prosecute any alcohol or drug abuse patient.[facility] HospitalIn the event this information is protected by the Federal Confidentiality of Alcohol and Drug Abuse Patient Records regulations: The Federal rules restrict any use of the information to criminally investigate or prosecute any alcohol or drug abuse patient.[facility] HospitalIn the event this information is protected by the Federal Confidentiality of Alcohol and Drug Abuse Patient Records regulations: The Federal rules restrict any use of the information to criminally investigate or prosecute any alcohol or drug abuse patient.[facility] HospitalIn the event this information is protected by the Federal Confidentiality of Alcohol and Drug Abuse Patient Records regulations: The Federal rules restrict any use of the information to criminally investigate or prosecute any alcohol or drug abuse patient.[facility] HospitalIn the event this information is protected by the Federal Confidentiality of Alcohol and Drug Abuse Patient Records regulations: The Federal rules restrict any use of the information to criminally investigate or prosecute any alcohol or drug abuse patient.[facility] HospitalIn the event this information is protected by the Federal Confidentiality of Alcohol and Drug Abuse Patient Records regulations: The Federal rules restrict any use of the information to criminally investigate or prosecute any alcohol or drug abuse patient.[facility] HospitalIn the event this information is protected by the Federal Confidentiality of Alcohol and Drug Abuse Patient Records regulations: The Federal rules restrict any use of the information to criminally investigate or prosecute any alcohol or drug abuse patient.[facility] HospitalIn the event this information is protected by the Federal Confidentiality of Alcohol and Drug Abuse Patient Records regulations: The Federal rules restrict any use of the information to criminally investigate or prosecute any alcohol or drug abuse patient.[facility] HospitalIn the event this information is protected by the Federal Confidentiality of Alcohol and Drug Abuse Patient Records regulations: The Federal rules restrict any use of the information to criminally investigate or prosecute any alcohol or drug abuse patient.[facility] HospitalIn the event this information is protected by the Federal Confidentiality of Alcohol and Drug Abuse Patient Records regulations: The Federal rules restrict any use of the information to criminally investigate or prosecute any alcohol or drug abuse patient.[facility] HospitalIn the event this information is protected by the Federal Confidentiality of Alcohol and Drug Abuse Patient Records regulations: The Federal rules restrict any use of the information to criminally investigate or prosecute any alcohol or drug abuse patient.[facility] HospitalIn the event this information is protected by the Federal Confidentiality of Alcohol and Drug Abuse Patient Records regulations: The Federal rules restrict any use of the information to criminally investigate or prosecute any alcohol or drug abuse patient.[facility] HospitalIn the event this information is protected by the Federal Confidentiality of Alcohol and Drug Abuse Patient Records regulations: The Federal rules restrict any use of the information to criminally investigate or prosecute any alcohol or drug abuse patient.[facility] HospitalIn the event this information is protected by the Federal Confidentiality of Alcohol and Drug Abuse Patient Records regulations: The Federal rules restrict any use of the information to criminally investigate or prosecute any alcohol or drug abuse patient.[facility] HospitalIn the event this information is protected by the Federal Confidentiality of Alcohol and Drug Abuse Patient Records regulations: The Federal rules restrict any use of the information to criminally investigate or prosecute any alcohol or drug abuse patient.[facility] HospitalIn the event this information is protected by the Federal Confidentiality of Alcohol and Drug Abuse Patient Records regulations: The Federal rules restrict any use of the information to criminally investigate or prosecute any alcohol or drug abuse patient.[facility] HospitalIn the event this information is protected by the Federal Confidentiality of Alcohol and Drug Abuse Patient Records regulations: The Federal rules restrict any use of the information to criminally investigate or prosecute any alcohol or drug abuse patient.[facility] HospitalIn the event this information is protected by the Federal Confidentiality of Alcohol and Drug Abuse Patient Records regulations: The Federal rules restrict any use of the information to criminally investigate or prosecute any alcohol or drug abuse patient.[facility] HospitalIn the event this information is protected by the Federal Confidentiality of Alcohol and Drug Abuse Patient Records regulations: The Federal rules restrict any use of the information to criminally investigate or prosecute any alcohol or drug abuse patient.[facility] HospitalIn the event this information is protected by the Federal Confidentiality of Alcohol and Drug Abuse Patient Records regulations: The Federal rules restrict any use of the information to criminally investigate or prosecute any alcohol or drug abuse patient.[facility] HospitalIn the event this information is protected by the Federal Confidentiality of Alcohol and Drug Abuse Patient Records regulations: The Federal rules restrict any use of the information to criminally investigate or prosecute any alcohol or drug abuse patient.[facility] HospitalIn the event this information is protected by the Federal Confidentiality of Alcohol and Drug Abuse Patient Records regulations: The Federal rules restrict any use of the information to criminally investigate or prosecute any alcohol or drug abuse patient.[facility] HospitalIn the event this information is protected by the Federal Confidentiality of Alcohol and Drug Abuse Patient Records regulations: The Federal rules restrict any use of the information to criminally investigate or prosecute any alcohol or drug abuse patient.[facility] HospitalIn the event this information is protected by the Federal Confidentiality of Alcohol and Drug Abuse Patient Records regulations: The Federal rules restrict any use of the information to criminally investigate or prosecute any alcohol or drug abuse patient.[facility] HospitalIn the event this information is protected by the Federal Confidentiality of Alcohol and Drug Abuse Patient Records regulations: The Federal rules restrict any use of the information to criminally investigate or prosecute any alcohol or drug abuse patient.[facility] HospitalIn the event this information is protected by the Federal Confidentiality of Alcohol and Drug Abuse Patient Records regulations: The Federal rules restrict any use of the information to criminally investigate or prosecute any alcohol or drug abuse patient.[facility] HospitalIn the event this information is protected by the Federal Confidentiality of Alcohol and Drug Abuse Patient Records regulations: The Federal rules restrict any use of the information to criminally investigate or prosecute any alcohol or drug abuse patient.[facility] HospitalIn the event this information is protected by the Federal Confidentiality of Alcohol and Drug Abuse Patient Records regulations: The Federal rules restrict any use of the information to criminally investigate or prosecute any alcohol or drug abuse patient.[facility] HospitalIn the event this information is protected by the Federal Confidentiality of Alcohol and Drug Abuse Patient Records regulations: The Federal rules restrict any use of the information to criminally investigate or prosecute any alcohol or drug abuse patient.[facility] HospitalIn the event this information is protected by the Federal Confidentiality of Alcohol and Drug Abuse Patient Records regulations: The Federal rules restrict any use of the information to criminally investigate or prosecute any alcohol or drug abuse patient.[facility] HospitalIn the event this information is protected by the Federal Confidentiality of Alcohol and Drug Abuse Patient Records regulations: The Federal rules restrict any use of the information to criminally investigate or prosecute any alcohol or drug abuse patient.[facility] HospitalIn the event this information is protected by the Federal Confidentiality of Alcohol and Drug Abuse Patient Records regulations: The Federal rules restrict any use of the information to criminally investigate or prosecute any alcohol or drug abuse patient.[facility] HospitalIn the event this information is protected by the Federal Confidentiality of Alcohol and Drug Abuse Patient Records regulations: The Federal rules restrict any use of the information to criminally investigate or prosecute any alcohol or drug abuse patient.[facility] HospitalIn the event this information is protected by the Federal Confidentiality of Alcohol and Drug Abuse Patient Records regulations: The Federal rules restrict any use of the information to criminally investigate or prosecute any alcohol or drug abuse patient.[facility] HospitalIn the event this information is protected by the Federal Confidentiality of Alcohol and Drug Abuse Patient Records regulations: The Federal rules restrict any use of the information to criminally investigate or prosecute any alcohol or drug abuse patient.[facility] HospitalIn the event this information is protected by the Federal Confidentiality of Alcohol and Drug Abuse Patient Records regulations: The Federal rules restrict any use of the information to criminally investigate or prosecute any alcohol or drug abuse patient.[facility] HospitalIn the event this information is protected by the Federal Confidentiality of Alcohol and Drug Abuse Patient Records regulations: The Federal rules restrict any use of the information to criminally investigate or prosecute any alcohol or drug abuse patient.[facility] HospitalIn the event this information is protected by the Federal Confidentiality of Alcohol and Drug Abuse Patient Records regulations: The Federal rules restrict any use of the information to criminally investigate or prosecute any alcohol or drug abuse patient.[facility] HospitalIn the event this information is protected by the Federal Confidentiality of Alcohol and Drug Abuse Patient Records regulations: The Federal rules restrict any use of the information to criminally investigate or prosecute any alcohol or drug abuse patient.[facility] HospitalIn the event this information is protected by the Federal Confidentiality of Alcohol and Drug Abuse Patient Records regulations: The Federal rules restrict any use of the information to criminally investigate or prosecute any alcohol or drug abuse patient.[facility] HospitalIn the event this information is protected by the Federal Confidentiality of Alcohol and Drug Abuse Patient Records regulations: The Federal rules restrict any use of the information to criminally investigate or prosecute any alcohol or drug abuse patient.[facility] HospitalIn the event this information is protected by the Federal Confidentiality of Alcohol and Drug Abuse Patient Records regulations: The Federal rules restrict any use of the information to criminally investigate or prosecute any alcohol or drug abuse patient.[facility] HospitalIn the event this information is protected by the Federal Confidentiality of Alcohol and Drug Abuse Patient Records regulations: The Federal rules restrict any use of the information to criminally investigate or prosecute any alcohol or drug abuse patient.[facility] HospitalIn the event this information is protected by the Federal Confidentiality of Alcohol and Drug Abuse Patient Records regulations: The Federal rules restrict any use of the information to criminally investigate or prosecute any alcohol or drug abuse patient.[facility] HospitalIn the event this information is protected by the Federal Confidentiality of Alcohol and Drug Abuse Patient Records regulations: The Federal rules restrict any use of the information to criminally investigate or prosecute any alcohol or drug abuse patient.[facility] HospitalIn the event this information is protected by the Federal Confidentiality of Alcohol and Drug Abuse Patient Records regulations: The Federal rules restrict any use of the information to criminally investigate or prosecute any alcohol or drug abuse patient.[facility] HospitalIn the event this information is protected by the Federal Confidentiality of Alcohol and Drug Abuse Patient Records regulations: The Federal rules restrict any use of the information to criminally investigate or prosecute any alcohol or drug abuse patient.[facility] HospitalIn the event this information is protected by the Federal Confidentiality of Alcohol and Drug Abuse Patient Records regulations: The Federal rules restrict any use of the information to criminally investigate or prosecute any alcohol or drug abuse patient.[facility] HospitalIn the event this information is protected by the Federal Confidentiality of Alcohol and Drug Abuse Patient Records regulations: The Federal rules restrict any use of the information to criminally investigate or prosecute any alcohol or drug abuse patient.[facility] HospitalIn the event this information is protected by the Federal Confidentiality of Alcohol and Drug Abuse Patient Records regulations: The Federal rules restrict any use of the information to criminally investigate or prosecute any alcohol or drug abuse patient.[facility] HospitalIn the event this information is protected by the Federal Confidentiality of Alcohol and Drug Abuse Patient Records regulations: The Federal rules restrict any use of the information to criminally investigate or prosecute any alcohol or drug abuse patient.[facility] HospitalIn the event this information is protected by the Federal Confidentiality of Alcohol and Drug Abuse Patient Records regulations: The Federal rules restrict any use of the information to criminally investigate or prosecute any alcohol or drug abuse patient.[facility] HospitalIn the event this information is protected by the Federal Confidentiality of Alcohol and Drug Abuse Patient Records regulations: The Federal rules restrict any use of the information to criminally investigate or prosecute any alcohol or drug abuse patient.[facility] HospitalIn the event this information is protected by the Federal Confidentiality of Alcohol and Drug Abuse Patient Records regulations: The Federal rules restrict any use of the information to criminally investigate or prosecute any alcohol or drug abuse patient.[facility] HospitalIn the event this information is protected by the Federal Confidentiality of Alcohol and Drug Abuse Patient Records regulations: The Federal rules restrict any use of the information to criminally investigate or prosecute any alcohol or drug abuse patient.[facility] HospitalIn the event this information is protected by the Federal Confidentiality of Alcohol and Drug Abuse Patient Records regulations: The Federal rules restrict any use of the information to criminally investigate or prosecute any alcohol or drug abuse patient.[facility] HospitalIn the event this information is protected by the Federal Confidentiality of Alcohol and Drug Abuse Patient Records regulations: The Federal rules restrict any use of the information to criminally investigate or prosecute any alcohol or drug abuse patient.[facility] HospitalIn the event this information is protected by the Federal Confidentiality of Alcohol and Drug Abuse Patient Records regulations: The Federal rules restrict any use of the information to criminally investigate or prosecute any alcohol or drug abuse patient.[facility] HospitalIn the event this information is protected by the Federal Confidentiality of Alcohol and Drug Abuse Patient Records regulations: The Federal rules restrict any use of the information to criminally investigate or prosecute any alcohol or drug abuse patient.[facility] HospitalIn the event this information is protected by the Federal Confidentiality of Alcohol and Drug Abuse Patient Records regulations: The Federal rules restrict any use of the information to criminally investigate or prosecute any alcohol or drug abuse patient.[facility] HospitalIn the event this information is protected by the Federal Confidentiality of Alcohol and Drug Abuse Patient Records regulations: The Federal rules restrict any use of the information to criminally investigate or prosecute any alcohol or drug abuse patient.[facility] HospitalIn the event this information is protected by the Federal Confidentiality of Alcohol and Drug Abuse Patient Records regulations: The Federal rules restrict any use of the information to criminally investigate or prosecute any alcohol or drug abuse patient.[facility] HospitalIn the event this information is protected by the Federal Confidentiality of Alcohol and Drug Abuse Patient Records regulations: The Federal rules restrict any use of the information to criminally investigate or prosecute any alcohol or drug abuse patient.[facility] HospitalIn the event this information is protected by the Federal Confidentiality of Alcohol and Drug Abuse Patient Records regulations: The Federal rules restrict any use of the information to criminally investigate or prosecute any alcohol or drug abuse patient.[facility] HospitalIn the event this information is protected by the Federal Confidentiality of Alcohol and Drug Abuse Patient Records regulations: The Federal rules restrict any use of the information to criminally investigate or prosecute any alcohol or drug abuse patient.[facility] HospitalIn the event this information is protected by the Federal Confidentiality of Alcohol and Drug Abuse Patient Records regulations: The Federal rules restrict any use of the information to criminally investigate or prosecute any alcohol or drug abuse patient.[facility] HospitalIn the event this information is protected by the Federal Confidentiality of Alcohol and Drug Abuse Patient Records regulations: The Federal rules restrict any use of the information to criminally investigate or prosecute any alcohol or drug abuse patient.[facility] HospitalIn the event this information is protected by the Federal Confidentiality of Alcohol and Drug Abuse Patient Records regulations: The Federal rules restrict any use of the information to criminally investigate or prosecute any alcohol or drug abuse patient.[facility] HospitalIn the event this information is protected by the Federal Confidentiality of Alcohol and Drug Abuse Patient Records regulations: The Federal rules restrict any use of the information to criminally investigate or prosecute any alcohol or drug abuse patient.[facility]In the event this information is protected by the Federal Confidentiality of Alcohol and Drug Abuse Patient Records regulations: The Federal rules restrict any use of the information to criminally investigate or prosecute any alcohol or drug abuse patient.[facility]In the event this information is protected by the Federal Confidentiality of Alcohol and Drug Abuse Patient Records regulations: The Federal rules restrict any use of the information to criminally investigate or prosecute any alcohol or drug abuse patient.[facility] HospitalIn the event this information is protected by the Federal Confidentiality of Alcohol and Drug Abuse Patient Records regulations: The Federal rules restrict any use of the information to criminally investigate or prosecute any alcohol or drug abuse patient.[facility] HospitalIn the event this information is protected by the Federal Confidentiality of Alcohol and Drug Abuse Patient Records regulations: The Federal rules restrict any use of the information to criminally investigate or prosecute any alcohol or drug abuse patient.[facility]In the event this information is protected by the Federal Confidentiality of Alcohol and Drug Abuse Patient Records regulations: The Federal rules restrict any use of the information to criminally investigate or prosecute any alcohol or drug abuse patient.[facility] HospitalIn the event this information is protected by the Federal Confidentiality of Alcohol and Drug Abuse Patient Records regulations: The Federal rules restrict any use of the information to criminally investigate or prosecute any alcohol or drug abuse patient.[facility] HospitalIn the event this information is protected by the Federal Confidentiality of Alcohol and Drug Abuse Patient Records regulations: The Federal rules restrict any use of the information to criminally investigate or prosecute any alcohol or drug abuse patient.[facility] HospitalIn the event this information is protected by the Federal Confidentiality of Alcohol and Drug Abuse Patient Records regulations: The Federal rules restrict any use of the information to criminally investigate or prosecute any alcohol or drug abuse patient.[facility] HospitalIn the event this information is protected by the Federal Confidentiality of Alcohol and Drug Abuse Patient Records regulations: The Federal rules restrict any use of the information to criminally investigate or prosecute any alcohol or drug abuse patient.[facility]In the event this information is protected by the Federal Confidentiality of Alcohol and Drug Abuse Patient Records regulations: The Federal rules restrict any use of the information to criminally investigate or prosecute any alcohol or drug abuse patient.[facility] HospitalIn the event this information is protected by the Federal Confidentiality of Alcohol and Drug Abuse Patient Records regulations: The Federal rules restrict any use of the information to criminally investigate or prosecute any alcohol or drug abuse patient.[facility] HospitalIn the event this information is protected by the Federal Confidentiality of Alcohol and Drug Abuse Patient Records regulations: The Federal rules restrict any use of the information to criminally investigate or prosecute any alcohol or drug abuse patient.[facility] HospitalIn the event this information is protected by the Federal Confidentiality of Alcohol and Drug Abuse Patient Records regulations: The Federal rules restrict any use of the information to criminally investigate or prosecute any alcohol or drug abuse patient.[facility] HospitalIn the event this information is protected by the Federal Confidentiality of Alcohol and Drug Abuse Patient Records regulations: The Federal rules restrict any use of the information to criminally investigate or prosecute any alcohol or drug abuse patient.[facility] HospitalIn the event this information is protected by the Federal Confidentiality of Alcohol and Drug Abuse Patient Records regulations: The Federal rules restrict any use of the information to criminally investigate or prosecute any alcohol or drug abuse patient.[facility] HospitalIn the event this information is protected by the Federal Confidentiality of Alcohol and Drug Abuse Patient Records regulations: The Federal rules restrict any use of the information to criminally investigate or prosecute any alcohol or drug abuse patient.[facility] HospitalIn the event this information is protected by the Federal Confidentiality of Alcohol and Drug Abuse Patient Records regulations: The Federal rules restrict any use of the information to criminally investigate or prosecute any alcohol or drug abuse patient.[facility] HospitalIn the event this information is protected by the Federal Confidentiality of Alcohol and Drug Abuse Patient Records regulations: The Federal rules restrict any use of the information to criminally investigate or prosecute any alcohol or drug abuse patient.[facility] HospitalIn the event this information is protected by the Federal Confidentiality of Alcohol and Drug Abuse Patient Records regulations: The Federal rules restrict any use of the information to criminally investigate or prosecute any alcohol or drug abuse patient.[facility] HospitalIn the event this information is protected by the Federal Confidentiality of Alcohol and Drug Abuse Patient Records regulations: The Federal rules restrict any use of the information to criminally investigate or prosecute any alcohol or drug abuse patient.[facility] HospitalIn the event this information is protected by the Federal Confidentiality of Alcohol and Drug Abuse Patient Records regulations: The Federal rules restrict any use of the information to criminally investigate or prosecute any alcohol or drug abuse patient.[facility] HospitalIn the event this information is protected by the Federal Confidentiality of Alcohol and Drug Abuse Patient Records regulations: The Federal rules restrict any use of the information to criminally investigate or prosecute any alcohol or drug abuse patient.[facility] HospitalIn the event this information is protected by the Federal Confidentiality of Alcohol and Drug Abuse Patient Records regulations: The Federal rules restrict any use of the information to criminally investigate or prosecute any alcohol or drug abuse patient.[facility] HospitalIn the event this information is protected by the Federal Confidentiality of Alcohol and Drug Abuse Patient Records regulations: The Federal rules restrict any use of the information to criminally investigate or prosecute any alcohol or drug abuse patient.[facility] HospitalIn the event this information is protected by the Federal Confidentiality of Alcohol and Drug Abuse Patient Records regulations: The Federal rules restrict any use of the information to criminally investigate or prosecute any alcohol or drug abuse patient.[facility] HospitalIn the event this information is protected by the Federal Confidentiality of Alcohol and Drug Abuse Patient Records regulations: The Federal rules restrict any use of the information to criminally investigate or prosecute any alcohol or drug abuse patient.[facility] HospitalIn the event this information is protected by the Federal Confidentiality of Alcohol and Drug Abuse Patient Records regulations: The Federal rules restrict any use of the information to criminally investigate or prosecute any alcohol or drug abuse patient.[facility] HospitalIn the event this information is protected by the Federal Confidentiality of Alcohol and Drug Abuse Patient Records regulations: The Federal rules restrict any use of the information to criminally investigate or prosecute any alcohol or drug abuse patient.[facility] HospitalIn the event this information is protected by the Federal Confidentiality of Alcohol and Drug Abuse Patient Records regulations: The Federal rules restrict any use of the information to criminally investigate or prosecute any alcohol or drug abuse patient.[facility] HospitalIn the event this information is protected by the Federal Confidentiality of Alcohol and Drug Abuse Patient Records regulations: The Federal rules restrict any use of the information to criminally investigate or prosecute any alcohol or drug abuse patient.[facility] HospitalIn the event this information is protected by the Federal Confidentiality of Alcohol and Drug Abuse Patient Records regulations: The Federal rules restrict any use of the information to criminally investigate or prosecute any alcohol or drug abuse patient.[facility] HospitalIn the event this information is protected by the Federal Confidentiality of Alcohol and Drug Abuse Patient Records regulations: The Federal rules restrict any use of the information to criminally investigate or prosecute any alcohol or drug abuse patient.[facility] HospitalIn the event this information is protected by the Federal Confidentiality of Alcohol and Drug Abuse Patient Records regulations: The Federal rules restrict any use of the information to criminally investigate or prosecute any alcohol or drug abuse patient.[facility] Reason for Visit (unrecogniz ed section and content) Reason Comments Established Patient Reason Onset Date Comments Refill Request 11/29/2021 Reason Onset Date Comments Community Monitoring Outreach 12/03/2021 CD M Telephonic Reason Onset Date Comments Community Monitoring Outreach 12/06/2021 Te lephonic Follow Up Reason Onset Date Comments Refill Request 12/12/2021 Reason Onset Date Comments Community Monitoring Outreach 12/18/2021 Te lephonic Follow Up Reason Comments Wheezing Shortness of Breath Urinary Incontinence Reason Comments Results Reason Comments UTI Reason Comments Escalation of Care Reason Comments Patient Update Reason Comments ED Follow-up Reason Onset Date Comments Community Monitoring Outreach 01/07/2022 Te lephonic Foillow Up Reason Onset Date Comments Community Monitoring Outreach 01/22/2022 Te lephonic Follow Up Reason Onset Date Comments Refill Request 01/22/2022 Reason Onset Date Comments Transition Of Care 01/23/2022 Reason Comments Hospital Follow Up Reason Onset Date Comments Refill Request 02/01/2022 Reason Comments Refill Request Reason Onset Date Comments Community Monitoring Outreach 02/15/2022 Te lephonic Follow Up Reason Onset Date Comments Community Monitoring Outreach 02/18/2022 Te lephonic Follow Up Reason Onset Date Comments Community Monitoring Outreach 03/18/2022 Te lephonic Follow Up Reason Comments Prescription Refills Reason Onset Date Comments Refill Request 03/27/2022 Reason Onset Date Comments Community Monitoring Outreach 04/15/2022 CD M Telephonic Follow Up Reason Onset Date Comments Community Monitoring Outreach 04/16/2022 CD M Telephonic Follow Up Reason Onset Date Comments Refill Request 04/22/2022 Reason Onset Date Comments Community Monitoring Outreach 04/30/2022 CD M Follow Up Reason Onset Date Comments Community Monitoring Outreach 05/01/2022 CD M Telephonic Reason Comments Orders Follow HH Orders Reason Onset Date Comments Transition Of Care 05/06/2022 Reason Onset Date Comments Refill Request 05/28/2022 Reason Onset Date Comments Community Monitoring Outreach 06/05/2022 CD M Telephonic Reason Onset Date Comments Community Monitoring Outreach 06/19/2022 CD M Telephonic Reason Onset Date Comments Refill Request 06/24/2022 Reason Onset Date Comments Refill Request 06/27/2022 Reason Onset Date Comments Refill Request 07/11/2022 Reason Onset Date Comments Refill Request 07/24/2022 Reason Onset Date Comments Refill Request 07/31/2022 Reason Onset Date Comments community monitoring outreach 07/30/2022 CD M telephonic outreach Reason Onset Date Comments Refill Request 08/12/2022 Reason Onset Date Comments community monitoring outreach 09/03/2022 CD M-Telephonic outreach Reason Onset Date Comments community monitoring outreach 09/05/2022 CD M-Insight escalation follow up call Reason Onset Date Comments community monitoring outreach 10/07/2022 CD M-telephonic outreach Reason Onset Date Comments community monitoring outreach 11/11/2022 CD M-Telephonic outreach Reason Onset Date Comments Refill Request 11/25/2022 Reason Onset Date Comments community monitoring outreach 12/06/2022 CD M-Telephonic outreach Reason Onset Date Comments Refill Request 01/01/2023 Reason Onset Date Comments Population Health Navigation Outreach 01/14/2023 ACO ALEX PCSA Reason Onset Date Comments Refill Request 01/22/2023 Refill Request 01/23/2023 Reason Onset Date Comments Refill Request 02/03/2023 Reason Onset Date Comments Refill Request 02/17/2023 Reason Comments Medication Request Reason Onset Date Comments community monitoring outreach 03/11/2023 CD M-Telephonic outreach Reason Comments Ambulatory Social Work Community [facility] Reason Onset Date Comments Refill Request 03/24/2023 Reason Comments Forms Reason Comments Patient Question Reason Onset Date Comments Refill Request 2023 Reason Onset Date Comments community monitoring outreach 04/10/2023 CD M-Telephonic outreach Reason Comments Appointment Reason Comments Follow Up Reason Comments Forms Reason Onset Date Comments community monitoring outreach 05/13/2023 CD M-Telephonic outreach Reason Onset Date Comments Population Health Navigation Outreach 06/02/2023 ACO BP AND DM Reason Onset Date Comments community monitoring outreach 06/13/2023 CD M-Telephonic outreach Reason Onset Date Comments Refill Request 07/01/2023 Reason Comments Urinary Problem Frequency, abdominal pain, nausea x 3 weeksPossible bronchitis, cough, sinus congestion, drainage, migraine x 2 weeks Reason Onset Date Comments Refill Request 07/14/2023 Reason Onset Date Comments Refill Request 07/21/2023 Reason Onset Date Comments community monitoring outreach 07/23/2023 CD M-Telephonic outreach Reason Onset Date Comments community monitoring outreach 07/28/2023 CD M-Telephonic outreach Reason Onset Date Comments Transition Of Care 08/08/2023 Reason Onset Date Comments Refill Request 09/26/2023 Reason Onset Date Comments community monitoring outreach 09/29/2023 CD M-Telephonic outreach Reason Onset Date Comments Refill Request 10/10/2023 Reason Onset Date Comments community monitoring outreach 10/29/2023 CD M-Telephonic outreach Reason Onset Date Comments community monitoring outreach 12/02/2023 CD M-Telephonic outreach Reason Onset Date Comments Refill Request 12/11/2023 Reason Comments UTI Reason Onset Date Comments community monitoring outreach 12/31/2023 CD M-Telephonic outreach Reason Onset Date Comments Refill Request 01/05/2024 Reason Onset Date Comments community monitoring outreach 01/30/2024 CD M-Telephonic outreach Reason Onset Date Comments Refill Request 02/04/2024 Reason Onset Date Comments community monitoring outreach 02/04/2024 CD M-Telephonic outreach Reason Onset Date Comments community monitoring outreach 02/05/2024 CD M-Telephonic outreach Reason Onset Date Comments Refill Request 02/20/2024 Reason Onset Date Comments community monitoring outreach 03/05/2024 CD M-Telephonic outreach Reason Onset Date Comments Refill Request 03/08/2024 Reason Comments urinary symptoms Reason Onset Date Comments Refill Request 03/24/2024 Reason Onset Date Comments Refill Request 04/02/2024 Reason Onset Date Comments community monitoring outreach 04/02/2024 CD M-Telephonic outreach Reason Onset Date Comments Refill Request 05/07/2023 Reason Onset Date Comments community monitoring outreach 04/06/2024 CD M-Telephonic outreach Reason Onset Date Comments Refill Request 04/12/2024 Reason Onset Date Comments Refill Request 04/20/2024 Reason Comments Incontinence Supplies Reason Comments UTI Cough Headache Nausea Reason Onset Date Comments community monitoring outreach 05/04/2024 CD M-Telephonic outreach Reason Onset Date Comments community monitoring outreach 05/05/2024 CD M-Telephonic outreach Reason Onset Date Comments Refill Request 05/10/2024 Reason Comments Results Orders Reason Onset Date Comments community monitoring outreach 06/07/2024 CD M-Telephonic outreach Reason Onset Date Comments community monitoring outreach 06/08/2024 CD M-Telephonic outreach Reason Onset Date Comments Refill Request 06/09/2024 Reason Onset Date Comments community monitoring outreach 06/10/2024 CD M-Telephonic outreach Reason Onset Date Comments community monitoring outreach 06/16/2024 CD M-Telephonic outreach Reason Onset Date Comments community monitoring outreach 07/14/2024 CD M-Telephonic outreach Reason Onset Date Comments community monitoring outreach 07/16/2024 CD M-Telephonic outreach Reason Onset Date Comments community monitoring outreach 07/19/2024 CD M-Telephonic outreach Reason Comments UTI Dysuria, urinary lata quency, lower abdominal pain for the last 3 weeks Migraine Fibromyalgia Reason Onset Date Comments Refill Request 07/26/2024 Reason Comments Medication Problem lost RX Reason Onset Date Comments Refill Request 09/22/2024 Reason Onset Date Comments Refill Request 10/05/2024 Reason Onset Date Comments Refill Request 10/19/2024 Reason Comments UTI URI Reason Onset Date Comments Refill Request 12/24/2024 Reason Comments Orders Incontinence supplie s Reason Onset Date Comments Population Health Navigation Outreach [facility]/03[facility] Reason Onset Date Comments requesting medication that is 01/25/2025 Reason Comments UTI Dysuria and frequenc y 3-4 weeks+ abd pain Cough Nonproductive two an d a half weeks Reason Onset Date Comments Refill Request 03/03/2025 Reason Onset Date Comments Results 03/03/2025 Reason Onset Date Comments Refill Request 03/08/2025 Reason Comments Medication Request Patient Update Reason Comments Follow Up Continues to have co ugh and dizziness Reason Comments Incontinent supplies denied request Reason Onset Date Comments Refill Request 04/04/2025 Reason Comments Follow Up 3 month exam Reason Onset Date Comments Refill Request 05/10/2025 Reason Comments Insurance [place] Care Teams (unrecognized sec tion and content) Junior Accountant Bookkeeper Relationship Specialty Start Date End Date Ricci Cole MD [address], [place] [id number] PCP - General Family Practice 09/19/16 Tñoa Sawyer Endocrinology 08/11/19 Sho Hebert, monument installerTool Checker 10/22/21 Junior Accountant Bookkeeper Relationship Specialty Start Date End Date Ricci Cole MD [address], [place] [address] PCP - General Family Practice 09/19/16 Toña Sawyer Endocrinology 08/11/19 Sho Hebert, monument installerTool Checker 10/22/21 Junior Accountant Bookkeeper Relationship Specialty Start Date End Date Ricci Cole MD [address], [place] [id number] PCP - General Family Practice 09/19/16 Toña Sawyer Endocrinology 08/11/19 Sho Hebert, monument installerTool Checker 10/22/21 Junior Accountant Bookkeeper Relationship Specialty Start Date End Date Ricci Cole MD [address], [place] [address] PCP - General Family Practice 09/19/16 Toña Sawyer Endocrinology 08/11/19 Sho Hebert monument installerTool Checker 10/22/21 Junior Accountant Bookkeeper Relationship Specialty Start Date End Date Ricci Cole MD [address], [place] [address]461 PCP - General Family Practice 09/19/16 Duke Sawyerpana Endocrinology 08/11/19 Sho Hebert monument installerTool Checker 10/22/21 Junior Accountant Bookkeeper Relationship Specialty Start Date End Date Ricci Cole MD [address] [place] [address] PCP - General Family Practice 09/19/16 Duke Sawyerpana Endocrinology 08/11/19 Sho Hebert, monument installerTool Checker 10/22/21 Junior Accountant Bookkeeper Relationship Specialty Start Date End Date Ricci Cole MD [address] [place] [address] PCP - General Family Practice 09/19/16 Duke Sawyerpana Endocrinology 08/11/19 Sho Hebert monument installerTool Checker 10/22/21 Junior Accountant Bookkeeper Relationship Specialty Start Date End Date Ricci Cole MD [address], [place] [address] PCP - General Family Practice 09/19/16 Duke Sawyerpana Endocrinology 08/11/19 Sho Hebert, monument installerTool Checker 10/22/21 Junior Accountant Bookkeeper Relationship Specialty Start Date End Date Ricci Cole MD [address], [place] [id number] PCP - General Family Practice 09/19/16 Digna Toña Endocrinology 08/11/19 Sho Hebert, NITIN [address] [place] [address] Tool Checker 10/22/21 Junior Accountant Bookkeeper Relationship Specialty Start Date End Date Ricci Cole MD [address], [place] [id number] PCP - General Family Practice 09/19/16 Digna Toña Endocrinology 08/11/19 Sho Hebert, NITIN [address] [place] [address] Tool Checker 10/22/21 Junior Accountant Bookkeeper Relationship Specialty Start Date End Date Ricci Cole MD [address], [place] [address] PCP - General Family Practice 09/19/16 Digna Toña Endocrinology 08/11/19 Sho Hebert RN [address] [place], [place] [id number] Tool Checker 10/22/21 Junior Accountant Bookkeeper Relationship Specialty Start Date End Date Ricci Cole MD [address] [place] [address] PCP - General Family Practice 09/19/16 Toña Sawyer Endocrinology 08/11/19 Sho Hebert RN [address] [place], [place] [id number] Tool Checker 10/22/21 Junior Accountant Bookkeeper Relationship Specialty Start Date End Date Ricci Cole MD [address] [place] [address] PCP - General Family Practice 09/19/16 Digna Toña Endocrinology 08/11/19 Sho Hebert RN [address] [place], [place] [id number] Tool Checker 10/22/21 Junior Accountant Bookkeeper Relationship Specialty Start Date End Date Ricci Cole MD [address] [place] [address] PCP - General Family Practice 09/19/16 Digna Toña Endocrinology 08/11/19 Sho Hebert RN [address] [place], [place] [id number] Tool Checker 10/22/21 Junior Accountant Bookkeeper Relationship Specialty Start Date End Date Ricci Cole MD [address] [place] [address] PCP - General Family Practice 09/19/16 Toña Sawyer Endocrinology 08/11/19 Sho Hebert RN [address] [facility], [place] [id number] Tool Checker 10/22/21 Junior Accountant Bookkeeper Relationship Specialty Start Date End Date Ricci Cole MD [address] [place] [address] PCP - General Family Practice 09/19/16 Toña Sawyer Endocrinology 08/11/19 Sho Hebert RN [address] [facility], [place] [id number] Tool Checker 10/22/21 Junior Accountant Bookkeeper Relationship Specialty Start Date End Date Ricci Cole MD [address] [place] [address] PCP - General Family Practice 09/19/16 Toña Sawyer Endocrinology 08/11/19 Sho Hebert RN [address] [facility] [place] [address] Tool Checker 10/22/21 Junior Accountant Bookkeeper Relationship Specialty Start Date End Date Ricci Cole MD [address] [place] [address] PCP - General Family Practice 09/19/16 Toña Sawyer Endocrinology 08/11/19 Sho Hebert RN [address] [facility], [place] [id number] Tool Checker 10/22/21 Junior Accountant Bookkeeper Relationship Specialty Start Date End Date Ricci Cole MD [address] [place] [address] PCP - General Family Practice 09/19/16 Toña Sawyer Endocrinology 08/11/19 Sho Hebert RN [address] [place], [place] [id number] Tool Checker 10/22/21 Junior Accountant Bookkeeper Relationship Specialty Start Date End Date Ricci Cole MD [address], [place] [address]461 PCP - General Family Practice 09/19/16 Toña Sawyer MD Endocrinology 08/11/19 Sho Hebert RN [address] [place], [place] [id number] Tool Checker 10/22/21 Junior Accountant Bookkeeper Relationship Specialty Start Date End Date Ricci Cole MD [address] [place] [address] PCP - General Family Practice 09/19/16 Toña Sawyer MD Endocrinology 08/11/19 Sho Hebert RN [address] [facility], [place] [id number] Tool Checker 10/22/21 Junior Accountant Bookkeeper Relationship Specialty Start Date End Date Ricci Cole MD [address], [place] [address]31 PCP - General Family Practice 09/19/16 Toña Sawyer MD Endocrinology 08/11/19 Sho Hebert RN [address] [place], [place] [id number] Tool Checker 10/22/21 Junior Accountant Bookkeeper Relationship Specialty Start Date End Date Ricci Cole MD [address], [place] [address] PCP - General Family Practice 09/19/16 Toña Sawyer MD Endocrinology 08/11/19 Sho Hebert RN [address] [place], [place] [id number] Tool Checker 10/22/21 Junior Accountant Bookkeeper Relationship Specialty Start Date End Date Ricci Cole MD [address], [place] [address]30[address] PCP - General Family Medicine 09/19/16 Toña Sawyer MD Endocrinology 08/11/19 Sho Hebert RN [address] [place], [place] [id number] Tool Checker 10/22/21 Junior Accountant Bookkeeper Relationship Specialty Start Date End Date Ricci Cole MD [address] [place] [address] PCP - General Family Medicine 09/19/16 Toña Sawyer MD Endocrinology 08/11/19 Sho Hebert RN [address] [place], [place] [id number] Tool Checker 10/22/21 Junior Accountant Bookkeeper Relationship Specialty Start Date End Date Ricci Cole MD [address], [place] [id number] PCP - General Family Medicine 09/19/16 Toña Sawyer MD Endocrinology 08/11/19 Sho Hebert RN [address] [place] [address] Tool Checker 10/22/21 Dylan Mac DO [address] [id number] Oil Agent Gastroenterology 06/19/22 Junior Accountant Bookkeeper Relationship Specialty Start Date End Date Ricci Cole MD [address], [place] [address] PCP - General Family Medicine 09/19/16 Toña Sawyer MD Endocrinology 08/11/19 Sho Hebert RN [address] [place] [address] Tool Checker 10/22/21 Dylan Mac DO [address] REG[address] ÁLVAROJose R [address] [address] Oil Agent Gastroenterology 06/19/22 Junior Accountant Bookkeeper Relationship Specialty Start Date End Date Ricci Cole MD [address], [place] [address]141 PCP - General Family Medicine 09/19/16 Toña Sawyer MD Endocrinology 08/11/19 Sho Hebert RN [address] [place] [address] Tool Checker 10/22/21 Dylan Mac DO [address] [id number] Oil Agent Gastroenterology 06/19/22 Junior Accountant Bookkeeper Relationship Specialty Start Date End Date Ricci Cole MD [address], [place] [id number] PCP - General Family Medicine 09/19/16 Toña Sawyer MD Endocrinology 08/11/19 Dylan Mac, DO [address] [place] [address] Oil Agent Gastroenterology 06/19/22 Herson Ashford RN [address] [place], [place] [id number] Tool Checker [facility] [place] 10/22/21 Junior Accountant Bookkeeper Relationship Specialty Start Date End Date Ricci Cole MD [address], [place] [address] PCP - General Family Medicine 09/19/16 Toña Sawyer MD Endocrinology 08/11/19 Dylan Mac, DO [address] [place] [address] Oil Agent Gastroenterology 06/19/22 Herson Ashford RN [address] [place] [address] Tool Checker [facility] [place] 10/22/21 Junior Accountant Bookkeeper Relationship Specialty Start Date End Date Ricci Cole MD [address] [place] [address] PCP - General Family Medicine 09/19/16 Toña Sawyer MD [address] [place] [address] Endocrinology 08/11/19 Dylan Mac, [address] [place] [address] Oil Agent Gastroenterology 06/19/22 Herson Ashford RN [address] [place] [address] Tool Checker Family Medicine 10/22/21 Junior Accountant Bookkeeper Relationship Specialty Start Date End Date Ricci Cole MD [address] [facility], [place] [address] PCP - General Family Medicine 09/19/16 Toña Sawyer MD [address] [place] [address] Endocrinology 08/11/19 FriendDylan, DO [address] [facility] [address] [place] [address] Oil Agent Gastroenterology 06/19/22 Herson Ashford, NITIN [address] [place] [address] Tool Checker Family Medicine 10/22/21 Junior Accountant Bookkeeper Relationship Specialty Start Date End Date Ricci Cole MD [address] [place] [address] PCP - General Family Medicine 09/19/16 Toña Sawyer MD [address] [place] [address] Endocrinology 08/11/19 FriendDylan, DO [address] [facility] [address] [place] [address] Oil Agent Gastroenterology 06/19/22 Herson Ashford, NITIN [address] [place] [address] Tool Checker Family Medicine 10/22/21 Junior Accountant Bookkeeper Relationship Specialty Start Date End Date Ricci Cole MD [address] [facility], [place] [id number] PCP - General Family Medicine 09/19/16 Toña Sawyer MD [address] [place] [address] Endocrinology 08/11/19 Dylan Mac, DO [address] [facility] [address] [place] [address] Oil Agent Gastroenterology 06/19/22 Herson Ashford, NITIN [address] [place], [place] [id number] Tool Checker Family Medicine 06/26/22 Junior Accountant Bookkeeper Relationship Specialty Start Date End Date Ricci Cole MD [address] [place] [address] PCP - General Family Medicine 09/19/16 Toña Sawyer MD [address] [place] [address] Endocrinology 08/11/19 Dylan Mac, DO [address] [place] [address] Oil Agent Gastroenterology 06/19/22 Herson Ashford RN [address] [place], [place] [id number] Tool Checker Family [facility] 06/26/22 Junior Accountant Bookkeeper Relationship Specialty Start Date End Date Ricci Cole MD [address] [place] [address] PCP - General Family Medicine 09/19/16 Toña Sawyer MD [address] [place] [address] Endocrinology 08/11/19 Dylan Mac, DO [address] [facility] [address] [place] [address] Oil Agent Gastroenterology 06/19/22 Herson Ashford, NITIN [address] [place], [place] [id number] Tool Checker Family Medicine 06/26/22 Junior Accountant Bookkeeper Relationship Specialty Start Date End Date Ricci Cole MD [address] [place] [address] PCP - General Family Medicine 09/19/16 Toña Sawyer MD [address] [place] [address] Endocrinology 08/11/19 Dylan Mac, [address] [place] [address] Oil Agent Gastroenterology 06/19/22 Herson Ashford RN [address] [place] [address] Tool Checker Family Medicine 06/26/22 Junior Accountant Bookkeeper Relationship Specialty Start Date End Date Ricci Cole MD [address] [place] [address] PCP - General Family Medicine 09/19/16 Toña Sawyer MD [address] [place] [address] Endocrinology 08/11/19 Dylan Mac DO [address] [place] [address] Oil Agent Gastroenterology 06/19/22 Herson Ashford RN [address] [place] [address] Tool Checker Family Medicine 06/26/22 Junior Accountant Bookkeeper Relationship Specialty Start Date End Date Ricci Cole MD [address] [place] [address] PCP - General Family Medicine 09/19/16 Toña Sawyer MD [address] [place] [address] Endocrinology 08/11/19 Dylan Mac DO [address] [place] [address] Oil Agent Gastroenterology 06/19/22 Herson Ashford RN [address] [place] [address] Tool Checker [facility] [place] 06/26/22 Junior Accountant Bookkeeper Relationship Specialty Start Date End Date Ricci Cole MD [address] [place], [place] 981941 PCP - General Family Medicine 09/19/16 Toña Sawyer MD [address] [place], [place] 966361 Endocrinology 08/11/19 Dylan Mac DO [address] [place] [address] Oil Agent Gastroenterology 06/19/22 Herson Ashford RN [address] [place] [address] Tool Checker [facility] [place] 06/26/22 Team Status: Active Member Role Status Dates Dr. Ricci Cole MD Family Provider Active Dr. Ricci Cole MD Primary Care Provider Active Team Status: Inactive Member Role Status Dates Dr. Ricci Cole MD Primary Care Provider Active Dr. Barrett Powell DO Emergency Provider Active Junior Accountant Bookkeeper Relationship Specialty Start Date End Date Ricci Cole MD [address] [place], [place] [id number] PCP - General Family Medicine 09/19/16 Toña Sawyer MD [address] [place] [address] Endocrinology 08/11/19 Dylan Mac DO [address] [address] Oil Agent Gastroenterology 06/19/22 Herson Ashford RN [address] [place] [address] Tool Checker Family Medicine 06/26/22 Junior Accountant Bookkeeper Relationship Specialty Start Date End Date Ricci Cole MD [address] [place] [address] PCP - General Family Medicine 09/19/16 Toña Sawyer MD [address] [place] [address] Endocrinology 08/11/19 Dylan Mac, DO [address] [place] [address] Oil Agent Gastroenterology 06/19/22 Herson Ashford RN [address] [place], [place] 8605331 Tool Checker Family Medicine 06/26/22 Junior Accountant Bookkeeper Relationship Specialty Start Date End Date Ricci Cole MD [address] [place] [address] PCP - General Family Medicine 09/19/16 Toña Sawyer MD [address] [place] [address] Endocrinology 08/11/19 Dylan Mac, DO [address] [facility] [address] [place] [address] Oil Agent Gastroenterology 06/19/22 Herson Ashford RN [address] [place], [place] 0560331 Tool Checker Family Medicine 06/26/22 Junior Accountant Bookkeeper Relationship Specialty Start Date End Date Ricci Cole MD [address] [place] [address] PCP - General Family Medicine 09/19/16 Toña Sawyer MD [address] [place] [address] Endocrinology 08/11/19 Dylan Mac DO [address] [place] [address] Oil Agent Gastroenterology 06/19/22 Herson Ashford RN [address] [place] [address] Tool Checker [facility] [place] 06/26/22 Junior Accountant Bookkeeper Relationship Specialty Start Date End Date Ricci Cole MD [address] [place] [address] PCP - General Family Medicine 09/19/16 Toña Sawyer MD [address] [place] [address] Endocrinology 08/11/19 Dylan Mac DO [address] [address] Oil Agent Gastroenterology 06/19/22 Herson Ashford RN [address] [place] [address] Tool Checker [facility] [place] 06/26/22 Junior Accountant Bookkeeper Relationship Specialty Start Date End Date Ricci Cole MD [address] [place] [address] PCP - General Family Medicine 09/19/16 Toña Sawyer MD [address] [place] [address] Endocrinology 08/11/19 Dylan Mac DO [address] [address] Oil Agent Gastroenterology 06/19/22 Herson Ashford RN [address] [place] [address] Tool Checker Family Medicine 06/26/22 Junior Accountant Bookkeeper Relationship Specialty Start Date End Date Ricci Cole MD [address] [facility], [place] 978451 PCP - General Family Medicine 09/19/16 Toña Sawyer MD [address] [place] [address] Endocrinology 08/11/19 Dylan Mac DO [address], [place] 67[address]91 Oil Agent Gastroenterology 06/19/22 Herson Ashford, NITIN [address] [place] [address] Tool Checker Family Medicine 06/26/22 Junior Accountant Bookkeeper Relationship Specialty Start Date End Date Ricci Cole MD [address] [place] [address] PCP - General Family Medicine 09/19/16 Toña Sawyer MD [address] [place] [address] Endocrinology 08/11/19 Dylan Mac DO [address] [place] [address] Oil Agent Gastroenterology 06/19/22 Herson Ashford RN [address] [place] [address] Tool Checker Family Medicine 06/26/22 Junior Accountant Bookkeeper Relationship Specialty Start Date End Date Ricci Cole MD [address] [place], [place] 062921 PCP - General Family Medicine 09/19/16 Toña Sawyer MD [address] [place] [address] Endocrinology 08/11/19 Dylan Mac DO [address] [place] [address] Oil Agent Gastroenterology 06/19/22 Herson Ashford RN [address] [place] [address] Tool Checker Family Medicine 06/26/22 Junior Accountant Bookkeeper Relationship Specialty Start Date End Date Ricci Cole MD [address] [place] [address] PCP - General Family Medicine 09/19/16 Toña Sawyer MD [address] [place] [address] Endocrinology 08/11/19 Dylan Mac DO [address] [place] [address] Oil Agent Gastroenterology 06/19/22 Herson Ashford RN [address] [place] [address] Tool Checker Family Medicine 06/26/22 Junior Accountant Bookkeeper Relationship Specialty Start Date End Date Ricci Cole MD [address] [place], [place] 450851 PCP - General Family Medicine 09/19/16 Toña Sawyer MD [address] [place] [address] Endocrinology 08/11/19 Dylan Mac DO [address] [place] [address], [place] 497041 Oil Agent Gastroenterology 06/19/22 Herson Ashford RN [address] [place], [place] 3625231 Tool Checker [facility] [place] 06/26/22 Junior Accountant Bookkeeper Relationship Specialty Start Date End Date Ricci Cole MD [address] [facility], [place] 879691 PCP - General Family Medicine 09/19/16 Toña Sawyer MD [address] [place] [address] Endocrinology 08/11/19 Dylan Mac DO [address] [address] Oil Agent Gastroenterology 06/19/22 Herson Ashford RN [address] [place] [address] Tool Checker [facility] [place] 06/26/22 Junior Accountant Bookkeeper Relationship Specialty Start Date End Date Ricci Cole MD [address] [place], [place] 866001 PCP - General Family Medicine 09/19/16 Toña Sawyer MD [address] [place] [address] Endocrinology 08/11/19 Dylan Mac DO [address] [phone] Oil Agent Gastroenterology 06/19/22 Herson Ashford RN [address] [place] [address] Tool Checker Family Medicine 06/26/22 Junior Accountant Bookkeeper Relationship Specialty Start Date End Date Ricci Cole MD [address] [place], [place] 173871 PCP - General Family Medicine 09/19/16 Toña Sawyer MD [address] [place] [address] Endocrinology 08/11/19 Dylan Mac DO [address] [place] [address] 272201 Oil Agent Gastroenterology 06/19/22 Herson Ashford, NITIN [address] [place] [address] Tool Checker Family Medicine 06/26/22 Junior Accountant Bookkeeper Relationship Specialty Start Date End Date Ricci Cole MD [address] [place] [address] PCP - General Family Medicine 09/19/16 Toña Sawyer MD [address] [place] [address] Endocrinology 08/11/19 Dylan Mac DO [address] [place] [address], [place] 0[address] Oil Agent Gastroenterology 06/19/22 Herson Ashford RN [address] [place] [address] Tool Checker Family Medicine 06/26/22 Junior Accountant Bookkeeper Relationship Specialty Start Date End Date Ricci Cole MD [address] [place], [place] 249291 PCP - General Family Medicine 09/19/16 Toña Sawyer MD [address] [place] [address] Endocrinology 08/11/19 Dylan Mac DO [address], [place] 77[address] Oil Agent Gastroenterology 06/19/22 Herson Ashford RN [address] [place] [address] Tool Checker Family Medicine 06/26/22 Junior Accountant Bookkeeper Relationship Specialty Start Date End Date Ricci Cole MD [address] [place] [address] PCP - General Family Medicine 09/19/16 Toña Sawyer MD [address] [place] [address] Endocrinology 08/11/19 Dylan Mac DO [address] [place] [address] Oil Agent Gastroenterology 06/19/22 Herson Ashford RN [address] [place] [address] Tool Checker Family Medicine 06/26/22 Junior Accountant Bookkeeper Relationship Specialty Start Date End Date Ricci Cole MD [address] [place], [place] 191621 PCP - General Family Medicine 09/19/16 Toña Sawyer MD [address] [place] [address] Endocrinology 08/11/19 Dylan Mac DO [address] [place], [place] 318731 Oil Agent Gastroenterology 06/19/22 Herson Ashford RN [address] [place], [place] 4998831 Tool Checker [facility] [place] 06/26/22 Junior Accountant Bookkeeper Relationship Specialty Start Date End Date Ricci Cole MD [address] [place] [address] PCP - General Family Medicine 09/19/16 Toña Sawyer MD [address] [place] [address] Endocrinology 08/11/19 Dylan Mac DO [address] [place] [address], [place] [address] Oil Agent Gastroenterology 06/19/22 Herson Ashford RN [address] [place] [address] Tool Checker [facility] [place] 06/26/22 Junior Accountant Bookkeeper Relationship Specialty Start Date End Date Ricci Cole MD [address] [place] [address] PCP - General Family Medicine 09/19/16 Toña Sawyer MD [address] [facility], [place] 867091 Endocrinology 08/11/19 Dylan Mac DO [address] [place], [place] [id number] Oil Agent Gastroenterology 06/19/22 Herson Ashford RN [address] [place] [address] Tool Checker Family Medicine 06/26/22 Team Status: Active Member Role Status Dates Dr. Ricci Cole MD Primary Care Provider Active Dr. Audie Walker DO Emergency Provider Active Dr. Leeanne Barron MD Admit Provider, Attending Provid er Active Team Status: Active Member Role Status Dates Dr. Ricci Cole MD Primary Care Provider Active Dr. Audie Walker DO Emergency Provider Active Dr. Leeanne Barron MD Admit Provider, Other Provider A ctive Dr. Sho Yi , DO Attending Provider, Other Provide r Active Team Status: Inactive Member Role Status Dates Dr. Ricci Cole MD Primary Care Provider Active Dr. Audie Walker DO Emergency Provider Active Dr. Leeanne Barron MD Admit Provider, Other Provider A ctive Dr. Sho Yi , DO Attending Provider Active Junior Accountant Bookkeeper Relationship Specialty Start Date End Date Ricci Cole MD [address] [place], [place] [id number] PCP - General Family Medicine 09/19/16 Toña Sawyer MD [address] [place], [place] 09425691 Endocrinology 08/11/19 Dylan Mac DO [facility] [address] [address] Oil Agent Gastroenterology 06/19/22 Herson Ashford, RN [address] [place] [id number] Tool Checker Family Medicine 06/26/22 Junior Accountant Bookkeeper Relationship Specialty Start Date End Date Ricci Cole MD [address] [place], [place] 78016691 PCP - General Family Medicine 09/19/16 Toña Sawyer MD [address] [place], [place] 08380691 Endocrinology 08/11/19 Dylan Mac DO [address] [place] [address], [place] 403031 Oil Agent Gastroenterology 06/19/22 Herson Ashford RN [address] [place] [id number] Tool Checker Family Medicine 06/26/22 Junior Accountant Bookkeeper Relationship Specialty Start Date End Date Ricci Cole MD [address] [place], [place] 509281 PCP - General Family Medicine 09/19/16 Toña Sawyer MD [address] [place], [place] 31415691 Endocrinology 08/11/19 Dylan Mac DO [address] [place] [address], [place] 864071 Oil Agent Gastroenterology 06/19/22 Herson Ashford RN [address] [place] [id number] Tool Checker Family Medicine 06/26/22 Junior Accountant Bookkeeper Relationship Specialty Start Date End Date Ricci Cole MD [address] [place], [place] 482051 PCP - General Family Medicine 09/19/16 Toña Sawyer MD [address] [place], [place] 57708691 Endocrinology 08/11/19 Dylan Mac DO [address] [id number] Oil Agent Gastroenterology 06/19/22 Herson Ashford RN [address] [place], [place] 8190231 Tool Checker Family Medicine 06/26/22 Junior Accountant Bookkeeper Relationship Specialty Start Date End Date Ricci Cole MD [address] [place] [address] PCP - General Family Medicine 09/19/16 Toña Sawyer MD [address] [place] [address] Endocrinology 08/11/19 Dylan Mac DO [address] [place] [address] 361251 Oil Agent Gastroenterology 06/19/22 Herson Ashford RN [address] [place] [address] Tool Checker Family [facility] 06/26/22 Junior Accountant Bookkeeper Relationship Specialty Start Date End Date Ricci Cole MD [address] [place] [address] PCP - General Family Medicine 09/19/16 Toña Sawyer MD [address] [place] [address] Endocrinology 08/11/19 Dylan Mac DO [address] [place], [place] 022271 Oil Agent Gastroenterology 06/19/22 Herson Ashford RN [address] [place] [address] Tool Checker Family Medicine 06/26/22 Junior Accountant Bookkeeper Relationship Specialty Start Date End Date Ricci Cole MD [address] [place] [address] PCP - General Family Medicine 09/19/16 Toña Sawyer MD [address] [place] [address] Endocrinology 08/11/19 Dylan Mac DO [address] 9[address] Oil Agent Gastroenterology 06/19/22 Herson Ashford RN [address] [place] [phone] Tool Checker Family Medicine 06/26/22 Junior Accountant Bookkeeper Relationship Specialty Start Date End Date Ricci Cole MD [address] [place] [address] PCP - General Family Medicine 09/19/16 Toña Sawyer MD [address] [place] [address] Endocrinology 08/11/19 Dylan Mac DO [address] 964051 Oil Agent Gastroenterology 06/19/22 Herson Ashford RN [address] [place] [address] Tool Checker Family Medicine 06/26/22 Junior Accountant Bookkeeper Relationship Specialty Start Date End Date Ricci Cole MD [address] [place], [place] 20101691 PCP - General Family Medicine 09/19/16 Toña Sawyer MD [address] [place] [address] Endocrinology 08/11/19 Dylan Mac DO [address] [place], [place] 661731 Oil Agent Gastroenterology 06/19/22 Herson Ashford RN [address] [place] [address] Tool Checker Family Medicine 06/26/22 Junior Accountant Bookkeeper Relationship Specialty Start Date End Date Ricci Cole MD [address] [place] [address] PCP - General Family Medicine 09/19/16 Toña Sawyer MD [address] [place] [address] Endocrinology 08/11/19 Dylan Mac DO [address] [place] [address] [id number] Oil Agent Gastroenterology 06/19/22 Herson Ashford RN [address] [place] [phone] Tool Checker Family Medicine 06/26/22 Junior Accountant Bookkeeper Relationship Specialty Start Date End Date Ricci Cole MD [address] [place], [place] 258791 PCP - General Family Medicine 09/19/16 Toña Sawyer MD [address] [place], [place] 37447691 Endocrinology 08/11/19 Dylan Mac DO [address] [place], [place] 11600691 Oil Agent Gastroenterology 06/19/22 Herson Ashford RN [address] [place], [place] 7030531 Tool Checker Family Medicine 06/26/22 Junior Accountant Bookkeeper Relationship Specialty Start Date End Date Ricci Cole MD [address] [place] [address] PCP - General Family Medicine 09/19/16 Toña Sawyer MD [address] [place] [address] Endocrinology 08/11/19 Dylan Mac DO [address] [place] [address] Oil Agent Gastroenterology 06/19/22 Herson Ashford RN [address] [place] [address] Tool Checker Family Medicine 06/26/22 Junior Accountant Bookkeeper Relationship Specialty Start Date End Date Ricci Cole MD [address] [place] [address] PCP - General Family Medicine 09/19/16 Toña Sawyer MD [address] [place] [address] Endocrinology 08/11/19 Dylan Mac DO [address] [place] [address] Oil Agent Gastroenterology 06/19/22 Herson Ashford RN [address] [place] [address] Tool Checker Family Medicine 06/26/22 Junior Accountant Bookkeeper Relationship Specialty Start Date End Date Ricci Cole MD [address] [place] [address] PCP - General Family Medicine 09/19/16 Toña Sawyer MD [address] [place] [address] Endocrinology 08/11/19 Dylan Mac DO [address] 611611 Oil Agent Gastroenterology 06/19/22 Herson Ashford RN [address] [place] [address] Tool Checker Family Medicine 06/26/22 Junior Accountant Bookkeeper Relationship Specialty Start Date End Date Ricci Cole MD [address] [place] [address] PCP - General Family Medicine 09/19/16 Toña Sawyer MD [address] [place] [address] Endocrinology 08/11/19 Dylan Mac DO [address] [facility] [address] [address] Oil Agent Gastroenterology 06/19/22 Herson Ashford RN [address] [place] [address] Tool Checker Family Medicine 06/26/22 Junior Accountant Bookkeeper Relationship Specialty Start Date End Date Ricci Cole MD [address] [place], [place] 43573691 PCP - General Family Medicine 09/19/16 Toña Sawyer MD [address] [place] [address] Endocrinology 08/11/19 Dylan Mac DO [address] [place] [address] Oil Agent Gastroenterology 06/19/22 Herson Ashford RN [address] [place] [address] Tool Checker Family Medicine 06/26/22 Junior Accountant Bookkeeper Relationship Specialty Start Date End Date Ricci Cole MD [address] [place] [address] PCP - General Family Medicine 09/19/16 Toña Sawyer MD [address] [place] [address] Endocrinology 08/11/19 Dylan Mac DO [address] [place] [address] 560681 Oil Agent Gastroenterology 06/19/22 Herson Ashford RN [address] [place] [address] Tool Checker Family Medicine 06/26/22 Junior Accountant Bookkeeper Relationship Specialty Start Date End Date Ricci Cole MD [address] [place] [address] PCP - General Family Medicine 09/19/16 Toña Sawyer MD [address] [place], [place] 330161 Endocrinology 08/11/19 Dylan Mac DO [address] [place] [address] [phone] Oil Agent Gastroenterology 06/19/22 Herson Ashford, RN [address] [place] [address] Tool Checker Family Medicine 06/26/22 Junior Accountant Bookkeeper Relationship Specialty Start Date End Date Ricci Cole MD [address] [place], [place] 43130691 PCP - General Family Medicine 09/19/16 Toña Sawyer MD [address] [place], [place] 792571 Endocrinology 08/11/19 Jacqui Etienne [address] [place], [place] 187511 Tool Checker Internal Medicine 01/04/21 Junior Accountant Bookkeeper Relationship Specialty Start Date End Date Ricci Cole MD [address] [place], [place] 827021 PCP - General Family Medicine 09/19/16 Toña Sawyer MD [address] [place], [place] 416611 Endocrinology 08/11/19 Junior Accountant Bookkeeper Relationship Specialty Start Date End Date Ricci Cole MD [address] [place], [place] 555071 PCP - General Family Medicine 09/19/16 Toña Sawyer MD [address] [place], [place] 21627691 Endocrinology 08/11/19 Dylan Mac DO [facility] [address] [phone] Oil Agent Gastroenterology 06/19/22 Herson Ashford RN [address] [place], [place] 4170731 Tool Checker Family Medicine 06/26/22 Junior Accountant Bookkeeper Relationship Specialty Start Date End Date Ricci Cole MD [address] [place], [place] 052111 PCP - General Family Medicine 09/19/16 Toña Sawyer MD [address] [place] [address] Endocrinology 08/11/19 Dylan Mac DO [address] [place] [address] Oil Agent Gastroenterology 06/19/22 Herson Ashford RN [address] [place] [address] Tool Checker Family Medicine 06/26/22 Junior Accountant Bookkeeper Relationship Specialty Start Date End Date Ricci Cole MD [address] [place] [address] PCP - General Family Medicine 09/19/16 Toña Sawyer MD [address] [place] [address] Endocrinology 08/11/19 Dylan Mac DO [address] [place] [address] Oil Agent Gastroenterology 06/19/22 Herson Ashford RN [address] [place] [address] Tool Checker Family Medicine 06/26/22 Junior Accountant Bookkeeper Relationship Specialty Start Date End Date Ricci Cole MD [address] [place] [address] PCP - General Family Medicine 09/19/16 Toña Sawyer MD [address] [facility] [place] [address] Endocrinology 08/11/19 Dylan Mac DO [address] [place] [address] Oil Agent Gastroenterology 06/19/22 Nanci Huber APRN.LINE THERAPIST [address] [place] [address] Tech Brazer Tester Family Medicine 08/02/24 Smiley Melo APRN.LINE THERAPIST [address] [place] [address] Tech Brazer Tester Family [facility] 08/02/24 Junior Accountant Bookkeeper Relationship Specialty Start Date End Date Ricci Cole MD [address] [place] [address] PCP - General Family Medicine 09/19/16 Toña Sawyer MD [address] [place] [address] Endocrinology 08/11/19 Dylan Mac DO [address] [place], [place] 811231 Oil Agent Gastroenterology 06/19/22 Nanci Huber APRN.LINE THERAPIST [address] [place] [address] Formerly [facility], [facility]–1983 08/02/[address] MESSENGER.LINE THERAPIST [address] [place], [place] 650431 Formerly [facility], 1928–1983 08/02/24 Junior Accountant Bookkeeper Relationship Specialty Start Date End Date Ricci Cole MD [address] [place], [place] 938771 PCP - General Family Medicine 09/19/16 Toña Sawyer MD [address] [place] [address] Endocrinology 08/11/19 Dylan Mac DO [address] [place] [address] [phone] Oil Agent Gastroenterology 06/19/22 Nanci Huber APRN.LINE THERAPIST [address] [place] [address] Formerly [facility], 1928–1983 08/02/[address] MESSENGER.LINE THERAPIST [address] [place] [address] Formerly [facility], 1928–1983 08/02/24 Junior Accountant Bookkeeper Relationship Specialty Start Date End Date Ricci Cole MD [address] [place], [place] 729481 PCP - General Family Medicine 09/19/16 Toña Sawyer MD [address] [place] [address] Endocrinology 08/11/19 Dylan Mac DO [address] [place], [place] 482081 Oil Agent Gastroenterology 06/19/22 Nanci Huber APRN.LINE THERAPIST [address] [facility] [place] [address] Tech Brazer Tester Family Medicine 08/02/24 Smiley Melo APRN.LINE THERAPIST [address] [facility] [place] [address] Tech Brazer Tester Family Medicine 08/02/24 Junior Accountant Bookkeeper Relationship Specialty Start Date End Date Ricci Cole MD [address] [facility] [place] [address] PCP - General Family Medicine 09/19/16 Toña Sawyer MD [address] [facility] [place] [address] Endocrinology 08/11/19 Dylan Mac DO [address] [facility] [address] [place] [address] Oil Agent Gastroenterology 06/19/22 Nanci Huber APRN.LINE THERAPIST [address] [facility] [place] [address] Tech Brazer Tester Family Medicine 08/02/24 Smiley Melo APRN.LINE THERAPIST [address] [facility] [place] [address] Tech Brazer Tester Family Medicine 08/02/24 Junior Accountant Bookkeeper Relationship Specialty Start Date End Date Ricci Cole MD [address] [facility] [place] [address] PCP - General Family Medicine 09/19/16 Toña Sawyer MD [address] [facility] [place] [address] Endocrinology 08/11/19 Dylan Mac DO [address] [address] Oil Agent Gastroenterology 06/19/22 Nanci Huber APRN.LINE THERAPIST [address] [facility] [place] [address] Tech Brazer Tester Family [facility] 08/02/24 Smiley Melo APRN.LINE THERAPIST [address] [facility] [place] [address] Tech Brazer Tester Family [facility] 08/02/24 Junior Accountant Bookkeeper Relationship Specialty Start Date End Date Ricci Cole MD [address] [place] [address] PCP - General Family Medicine 09/19/16 Toña Sawyer MD [address] [facility] [place] [address] Endocrinology 08/11/19 Dylan Mac DO [address], [place] [id number] Oil Agent Gastroenterology 06/19/22 Nanci Huber APRN.LINE THERAPIST [address] [place] [address] Tech Brazer Tester Family Medicine 08/02/24 Smiley Melo, COURT MESSENGER.LINE THERAPIST [address] [facility] [place] [address] Tech Brazer Tester Family Medicine 08/02/24 Junior Accountant Bookkeeper Relationship Specialty Start Date End Date Ricci Cole MD [address] [facility] [place] [address] PCP - General Family Medicine 09/19/16 Toña Sawyer MD [address] [facility] [place] [address] Endocrinology 08/11/19 Dylan Mac DO [address] [place] [address] Oil Agent Gastroenterology 06/19/22 Nanci Huber, COURT MESSENGER.LINE THERAPIST [address] [facility] [place] [address] Tech Brazer Tester Family [facility] 08/02/24 Smiley Melo, COURT MESSENGER.LINE THERAPIST [address] [facility] [place] [address] Tech Brazer Tester [facility] Medicine 08/02/24 Junior Accountant Bookkeeper Relationship Specialty Start Date End Date Ricci Cole MD [address] [facility] [place] [address] PCP - General Family Medicine 09/19/16 Toña Sawyer MD [address] [place] [address] Endocrinology 08/11/19 Dylan Mac DO [address] [place] [address] Oil Agent Gastroenterology 06/19/22 Nanci Huber APRN.LINE THERAPIST [address] [facility] [place] [address] Tech Brazer Tester Family Medicine 08/02/24 Smiley Melo APRN.LINE THERAPIST [address] [facility] [place] [address] Tech Brazer Tester Family Medicine 08/02/24 Junior Accountant Bookkeeper Relationship Specialty Start Date End Date Ricci Cole MD [address] [facility] [place] [address] PCP - General Family Medicine 09/19/16 Toña Sawyer MD [address] [place] [address] Endocrinology 08/11/19 Dylan Mac DO [facility] REGANCARSON REAJose R [address], [place] [address] Oil Agent Gastroenterology 06/19/22 Nanci Huber APRN.LINE THERAPIST [address] [place] [address] Tech Brazer Tester Family Medicine 08/02/[address] MESSENGER.LINE THERAPIST [address] [facility] [place] [address] Tech Brazer Tester Family Medicine 08/02/24 Junior Accountant Bookkeeper Relationship Specialty Start Date End Date Ricci Cole MD [address] [place] [address] PCP - General Family Medicine 09/19/16 Toña Sawyer MD [address] [place] [address] Endocrinology 08/11/19 Dylan Mac DO [address] [place], [place] [id number] Oil Agent Gastroenterology 06/19/22 Nanci Huber APRN.LINE THERAPIST [address] [place] [address] Tech Brazer Tester [facility] 08/02/24 Smiley Melo APRN.LINE THERAPIST [address] [place] [address] [facility] 08/[facility] Junior Accountant Bookkeeper Relationship Specialty Start Date End Date Ricci Cole MD [address] [place] [address] PCP - General Family Medicine 09/19/16 Toña Sawyer MD [address] [place] [address] Endocrinology 08/11/19 Dylan Mac DO [address] [place], [place] [address] Oil Agent Gastroenterology 06/19/22 Nanci Huber APRN.LINE THERAPIST [address] [place] [address] [facility] 08/02/24 Smiley Melo APRN.LINE THERAPIST [address] [place] [address] Tech Brazer Tester [facility] 08/02/24 Junior Accountant Bookkeeper Relationship Specialty Start Date End Date Ricci Cole MD [address] [place] [address] PCP - General Family Medicine 09/19/16 Toña Sawyer MD [address] [place] [address] Endocrinology 08/11/19 Dylan Mac DO [address] [place] [address] Oil Agent Gastroenterology 06/19/22 Nanci Huber APRN.LINE THERAPIST [address] [place] [address] Tech Brazer Tester [facility] 08/02/24 Smiley Melo APRN.LINE THERAPIST [address] [place] [address] [facility] 08/02/24 Junior Accountant Bookkeeper Relationship Specialty Start Date End Date Ricci Cole MD [address] [place] [address] PCP - General Family Medicine 09/19/16 Toña Sawyer MD [address] [place] [address] Endocrinology 08/11/19 Dylan Mac DO [address] [place] [address] Oil Agent Gastroenterology 06/19/22 Nanci Huber APRN.LINE THERAPIST [address] [facility], [place] [address] [facility]ly [facility], [facility]–1983 08/02/24 Smiley Melo APRN.LINE THERAPIST [address] [facility], [place] [address] [facility], [facility]–1983 08/02/24 Junior Accountant Bookkeeper Relationship Specialty Start Date End Date Ricci Cole MD [address] [facility], [place] [address] PCP - General Family Medicine 09/19/16 Toña Sawyer MD [address] [place] [address] Endocrinology 08/11/19 Dylan Mac DO [address], [place] [address] Oil Agent Gastroenterology 06/19/22 Nanci Huber APRN.LINE THERAPIST [address] [place] [address] [facility], [facility]–1983 08/02/24 Smiley Melo APRN.LINE THERAPIST [address] [place] [address] [facility]ly [facility], [facility]–1983 08/02/24 Team Status: Active Member Role/Relationship Status Dates Dr. Ricci Cole MD Primary care physician Active Team Status: Inactive Member Role/Relationship Status Dates Dr. Ricci Cole MD Primary care physician Active Start: February 22, 2025 Dr. Meredith Oropeza MD Attending physician Active Start: February 22, 2025 Team Status: Inactive Member Role/Relationship Status Dates Dr. Ricci Cole MD Primary care physician Active Start: May 15, 2025 End: May 15, 2025 Dr. Bhavin Quinn , DO Attending physician Active Start: May 15, 2025 End: May 15, 2025 Dr. Bhavin Quinn , DO Emergency Departme nt Physician Active Start: May 15, 2025 End: May 15, 2025 Goals (unrecognized section and content) Goals may be documented in a n alternate sectionGoals may be documented in an alternate sectionGoals may be documented in an alternate sectionGoals may be documented in an alternate sectionGoals may be documented in an alternate sectionGoals may be documented in an alternate section FOR RECORDS PERTAINING TO PATIENTS WHO ARE OR HAVE BEEN ENROLLED IN A CHEMICAL DEPENDENCY/SUBSTANCEABUSE PROGRAM, SOME INFORMATION MAY BE OMITTED. This clinical summary was aggregated from multiple sources. Caution should be exercised in using it in the provision of clinical care. This summary normalizes information from multiple sources, and as a consequence, information in this document may materially change the coding, format and clinical context of patient data. In addition, data may be omitted in some cases. CLINICAL DECISIONS SHOULD BE BASED ON THE PRIMARY CLINICAL RECORDS. [facility]. provides no warranty or guarantee of the accuracy or completeness of information in this document.
--- NOTE | 2025-07-20 18:30 | RAD_ITS ---
EXAM: XR Right Ankle Complete, 3 or More Views CLINICAL INDICATION: FALL, ANKLE PAIN TECHNIQUE: Frontal, lateral and oblique views of the right ankle. COMPARISON: No relevant prior studies available. FINDINGS: BONES/JOINTS: Comminuted moderately displaced fracture of the distal fibula extending to the lateral malleolus. Comminuted mildly displaced fracture of the medial malleolus. Moderate subluxation of the ankle joint medially. SOFT TISSUES: Soft tissue swelling. RAD/Ankle min 3 Views IMPRESSION: 1. Comminuted moderately displaced fracture of the distal fibula extending to the lateral malleolus. 2. Comminuted mildly displaced fracture of the medial malleolus. 3. Moderate subluxation of the ankle joint medially. Reading Location: [id number]
--- NOTE | 2025-07-20 18:30 | RAD_ITS ---
EXAM: XR Right Tibia and Fibula, 2 Views CLINICAL INDICATION: FALL, RIGHT SOLIS PAIN TECHNIQUE: Frontal and lateral views of the right tibia and fibula. COMPARISON: No relevant prior studies available. FINDINGS: BONES/JOINTS: Comminuted moderately displaced fracture of the distal fibula and medial malleolus with subluxation of the ankle joint medially. SOFT TISSUES: Soft tissue swelling. No radiopaque foreign body. RAD/Tibia & Fibula 2 Views IMPRESSION: 1. Comminuted moderately displaced fracture of the distal fibula and medial ma lleolus with subluxation of the ankle joint medially. 2. Soft tissue swelling. Reading Location: [id number]
--- NOTE | 2025-07-20 18:30 | RAD_ITS ---
EXAM: XR Right Foot Complete, 3 or More Views CLINICAL INDICATION: FALL, PAIN TECHNIQUE: Frontal, lateral and oblique views of the right foot. COMPARISON: No relevant prior studies available. FINDINGS: BONES/JOINTS: Partially visualization comminuted displaced fracture of the distal fibula and medial malleolus. Moderate degenerative change of the distal interphalangeal joints. Moderate degenerative changes of the 1st metatarsophalangeal joint. Mild degenerative changes of the intertarsal joints. No dislocation. SOFT TISSUES: Soft tissue swelling. RAD/Foot min 3 Views IMPRESSION: 1. Partially visualization comminuted displaced fracture of the distal fibula and medial malleolus. 2. Degenerative changes as above. Reading Location: [id number]
[2025-07-20 19:47] VITALS: BP 161/88; PULSE 97; RESP 20; O2SAT 97
[2025-07-20] MEDS: HYDROcodone Bitartrate/Apap 5/325 Tablet PO (19:53)
--- NOTE | 2025-07-20 20:27 | ED.RN ---
Daughter given update on Pt.
[2025-07-20 20:28] VITALS: BP 157/87; PULSE 93; RESP 16; TEMP 37; O2SAT 93
== END 2025-07-20 20:51 | disposition home or self-care (01) ==
PROVIDERS: Emergency Provider Student in an Organized Health Care Education/Training Program; PCP Family Medicine; Visit Provider Student in an Organized Health Care Education/Training Program
DX: S82.841A Displaced bimalleolar fracture of right lower leg, initial encounter for closed fracture (principal); J44.9 Chronic obstructive pulmonary disease, unspecified; Z79.4 Long term (current) use of insulin; E11.9 Type 2 diabetes mellitus without complications; E78.00 Pure hypercholesterolemia, unspecified; Z90.710 Acquired absence of both cervix and uterus; I10 Essential (primary) hypertension; W18.30XA Fall on same level, unspecified, initial encounter; Y93.01 Activity, walking, marching and hiking; F32.A Depression, unspecified; Z79.899 Other long term (current) drug therapy; F41.9 Anxiety disorder, unspecified; K21.9 Gastro-esophageal reflux disease without esophagitis; Z79.51 Long term (current) use of inhaled steroids; Z90.49 Acquired absence of other specified parts of digestive tract; Z98.51 Tubal ligation status; F17.210 Nicotine dependence, cigarettes, uncomplicated
CPT/HCPCS: 29515; 70450; 72125; 73590; 73610; 73630; 96374; 99285

== ENCOUNTER → 2025-08-01 | Outpatient (CLI) | payer MEDICARE, MEDICAID, SELFPAY ==
--- NOTE | 2025-08-01 14:43 | CT_ITS ---
PROCEDURE: RIGHT EXTREMITY LOWER WITHOUT CONTRAST 08/01/2025 REASON FOR EXAM: DISPLACED TRIMALLEOLAR FRACTURE OF RIGHT LOWER LEG, INITIAL ENCOU TECHNIQUE: Procedure Code: CTELWO Modality: CT Procedure: EXTREMITY LOWER WITHOUT CONTRA Coronal and Sagittal reconstruction series were provided. One or more dose reduction techniques were used (e.g., Automated exposure control, adjustment of the mA and/or kV according to patient size, use of iterative reconstruction technique). RADIATION DOSE SUMMARY: CTDlvol: 15.35 mGy DLP: 607.06 mGycm COMPARISON: Radiographs 07/20/2025. FINDINGS: Comminuted fracture of the distal fibula, extending to the lateral malleolus, with mild lateral angulation of the dominant distal fragments. Comminuted fractures of the distal tibia medial and posterior malleoli, and small cortical chip fractures at the lateral aspect of the tibial plafond. Disruption of the distal tibiofibular syndesmosis with posterolateral subluxation of the talar dome with respect to the tibial plafond. Widening of the medial clear space. Mild generalized soft tissue edema about the ankle. CT/Extremity Lower without Contra IMPRESSION: Mildly displaced comminuted trimalleolar fracture of the right ankle, as above. Reading Location: [id number]
[2025-08-01 15:13] LABS: Hematocrit 42.6 % (37-47); Hemoglobin 13.9 g/dL (12.0-15.0); Immature Granulocytes Count 0.140 X10^3/uL (0.0-0.0); Mean Corp Hgb Conc 32.6 g/dL (32-36); Mean Corpuscular Volume 93.0 fL (81-99); Mean Platelet Vol. 9.0 fl (6.2-12.0); NRBC Flagged by Analyzer 0 % (0-5); Platelet Count 465 K/mm3 (150-450); RBC Distribution Width CV 13.2 % (11.6-14.6); RBC Distribution Width SD 44.7 fl (35.1-43.9); Red Blood Count 4.58 M/mm3 (4.2-5.4); White Blood Count 17.8 K/mm3 (4.4-11.0)
[2025-08-01 15:33] LABS: Prothrombin Time (Protime)PT. 14.0 SECONDS (11.7-14.9)
[2025-08-01 15:42] LABS: Anion Gap 16 (5-15); BUN 6 mg/dL (4-19); BUN/Creat Ratio 7.3 RATIO (10-20); Calcium,Total 9.1 mg/dL (7.6-11.0); Carbon Dioxide 20.8 mmol/L (21.0-32.0); Chloride 102 mmol/L (98-108); Glucose 448 mg/dL (70-99); Potassium 3.7 mmol/L (3.3-5.1)
== END | disposition home or self-care (01) ==
LOC: CT 14:24
PROVIDERS: PCP Family Medicine; Referring Provider Physician Assistant; Visit Provider Physician Assistant
DX: S82.851A Displaced trimalleolar fracture of right lower leg, initial encounter for closed fracture (principal); S93.431A Sprain of tibiofibular ligament of right ankle, initial encounter
CPT/HCPCS: 36415; 73700; 80048; 83036; 85025; 85610

== ENCOUNTER 2025-08-04 02:34 | Inpatient (IN) | payer MEDICARE, MEDICAID, SELFPAY ==
[2025-08-04] VITALS (10 sets, daily range): BP systolic 111–165; BP diastolic 70–84; PULSE 88–118; RESP 16–20; TEMP 36.8–37.3; O2SAT 94–98; BMI 34.8; BMI 35.3; BMI 35.4
[2025-08-04 03:08] LABS: Hematocrit 41.4 % (37-47); Hemoglobin 13.7 g/dL (12.0-15.0); Immature Granulocytes Count 0.100 X10^3/uL (0.0-0.0); Mean Corp Hgb Conc 33.1 g/dL (32-36); Mean Corpuscular Volume 91.0 fL (81-99); Mean Platelet Vol. 8.7 fl (6.2-12.0); NRBC Flagged by Analyzer 0 % (0-5); Platelet Count 333 K/mm3 (150-450); RBC Distribution Width CV 13.2 % (11.6-14.6); RBC Distribution Width SD 43.4 fl (35.1-43.9); Red Blood Count 4.55 M/mm3 (4.2-5.4); White Blood Count 16.3 K/mm3 (4.4-11.0)
[2025-08-04 03:12] LABS: Color, Urine Yellow (Yellow); Glucose, Dipstick 1000 mg/dl (Normal); Ketone-Dipstick 50 mg/dl (Negative); Leukocyte Esterase-Dipstick 500 /ul (Negative); Nitrite-Dipstick Positive (Negative); Occult Blood-Urine 25 /ul (Negative); Protein-Dipstick 30 mg/dl (Negative); Specific Gravity, Urine 1.020 (1.002-1.030); Urine Bilirubin Dipstick Negative (Negative)
[2025-08-04] MEDS: 0.9% Normal Saline (1000mL) 1,000 ML 999 ML IV (03:16)
[2025-08-04 03:25] LABS: BETA-HYDROXYBUTYRATE 0.8 mmol/L (0.0-0.3); Lipase 14 U/L (13-75)
[2025-08-04 03:28] LABS: Mucous, Urine 1+ /hpf (<or=2+); Red Blood Cells-Urine 0-5 SEEN /hpf (0-5); Squamous Epithelial Cells - UA 0-5 SEEN /hpf (5-10); Yeast-Urine 1+ /hpf (None Seen)
--- OUTSIDE RECORDS SUMMARY | 2025-08-04 03:35 | XMS RPT_ITS | CCD ---
Author Organization [facility] Care Team Providers Care Emts Name Role Phone TOSHIA ROMERO DO Admitting [...] Other Provider Dr. Manolo Wade Other Provider [phone] Toña Sawyer MD Unavailable Ricci Cole MD [...] Unavailable Anup TAVERAS, Sho Odell Unavailable [phone] Ricci Cole Primary Care Provider Dr. Pippa Brice Other Provider Dr. Manolo Wade Other Provider Friend, Dr. Richardson Referring Provider [phone] Friend, Dr. Richardson Other Provider Friend Dylan CHAMPION Unavailable Makeda RN, Herson Unavailable Ricci Cole MD Primary Care Provider Digna TATE, Toña Unavailable Friend Dylan CHAMPION Unavailable Makeda RN, Herson Unavailable Makeda RN, Herson Unavailable Friend Dylan CHAMPION Unavailable Makeda RN, Herson Unavailable Dr. Ricci Cole Primary Care Provider Dr. Audie Walker Emergency Provider [phone] Dr. Leeanne Barron Admit Provider Dr. Leeanne Barron Other Provider Dr. Sho Yi Attending Provider Dr. Sho Yi Other Provider Ricci Cole MD Primary Care Provider LouiseedgarveritoJacqui Unavailable Haagen PROCESS DESIGN ENGINEER.NEUROPHYSIOLOGICAL TECHNICIAN, Nanci Unavailable Suppclara PROCESS DESIGN ENGINEER.NEUROPHYSIOLOGICAL TECHNICIAN, Smiley A Unavailable Dr. Ricci Cole MD Primary Care Physician [phone] Johnna TATE, Dr. Harper Attending Physician Dr. Bhavin Quinn DO Attending Physician Dr. Bhavin Quinn DO Emergency Department Physic anival SUPPAN, SMILEY A Referring Unavailable KELSEY, RICCI [...] (antibiotic) (1 source) Penicillins Drug Allergy 8 [facility] Work Phone: Sulfonamides (antibiotic) (1 source) Sulfonamides (Antibiotic) Drug Allergy 7 Rash, Other: See Comments [facility] varenicline (1 source) varenicline Drug Allergy 9 Mental Status Change [facility] (1 source) Penicillins Drug allergy (disorder) [facility] Repository (1 source) Sulfonamides (Antibiotic) Drug allergy (disorder) [facility] Repository (20 sources) Penicillins; Translations: [PENICILLINS] Propensity to adverse reactions to drug (disorder) 8 [facility] Repository (20 sources) Sulfonamides (Antibiotic); Translations: [SULFA (SULFONAMIDE ANTIBIOTICS)] Propensity to adverse reactions to drug (disorder) 7 Rash, Other: See Comments [facility] Repository (20 sources) varenicline; Translations: [VARENICLINE] Drug Allergy 9 Mental Status Change [facility] Comment on above: fuzzy head (1 source) varenicline Drug Allergy 5 [facility] Repository Medications Current Medications Medication Drug [...] Comment on above: Take 1 tablet by [facility] twice daily for 10 days. ergocalciferol [...] Comment on above: Take 1 capsule by [facility] one time a week. ertapenem 1000 mg injection (6 sources) Penem Antibacterial Start: 2 Ertapenem Active 1 GM IV EVERY 24 HOURS 04 01May 03, 2022 12:00am stop date 05/11/22 dx:esbl uti weekly bmp, cbc, and LFT. Fax to [phone]. escitalopram 20 mg oral tablet (20 sources) [...] on above: Take 2 tablets by [facility] twice daily as needed for cold/allergy symptoms [...] complication, without long-term current use of insulin ([facility]) Inject 12 Units subcutaneously three times a day before meals. And sliding scale up to 38 units tid. 3 Each 5 10/05/2024 Active Start: 03-30-2020 End: 10-31-2020 insulin lispro (HUMALOG KWIK PEN INSULIN) 100 unit/mL Indications: Type 2 diabetes mellitus without complication, without long-term current use of insulin ([facility]) Inject 12 Units subcutaneously three times daily [...] more refills. Take 1 capsule by mo [facility] once daily. phenazopyridine hydrochloride 200 mg oral [...] on above: Take 2 tablets by mo [facility] once daily for 5 days. Take 1 [...] spray Indications: PND (post-nasal drip) Use 1 [place] in each nostril twice daily. 6 mL 1 09/07/2021 04/15/2023 Discontinued (Other) Comment on above: Use 1 [place] in each nostril twice daily. Blood Pressure [...] KIT checking bp 4 times daily calcitriol 0.59928 mg oral capsule (20 sources) Vitamin D3 Analog Start: 12-20-2021 End: 08-19-2023 take 1 capsule by mouth once daily calcitriol (ROCALTROL) 0.25 mcg capsule Indications: Low vitamin D level Take 1 capsule by mouth once daily. 30 capsule 5 04/15/2023 08/19/2023 Discontinued Comment on above: Take 1 capsule by [facility] once daily. carvedilol 12.5 mg oral tablet [...] SAME . Urine Culture ESBL Escherichia coli [place] Count >100,000 MARKER ESBL producing OrganismA MARKER [...] TMP SMX Islt STEPHEN >=320 R Normal [facility] Comment on above: Performed By: #### M 100.2200 #### [facility] [place], [address] [facility] 05-17-2025 [facility] Telephone (INTMWS) IVET VALERO ([id number]) 1955 F Date Time Provider Department 05/17/25 RICCI COLE INTMWS During your visit today, we recorded the following information about you: Sue Quinonez RN 05/17/2025 12:02 PM Signed Patient calls to request prescription for pain medication. Patient reports she was to [facility] ER on Friday for fall with [...] every 6 hours as needed. - Insulin [place], Disposable, (BD ULTRA-FINE MINDY PEN NEEDLE) 32 [...] mg by mouth once daily. - Insulin [place], Disposable, 32 gauge x 5/16 ndle Use [...] diabetes mellitus (more content not included)... Normal [facility] Absolute lymphocyte countOrd ered By: Bhavin Quinn on 05-15-2025 Lymphocytes Auto (Unsp spec) [#/Vol] 3.26 10*3/uL 0.83-4.51 [facility] Absolute neutrophil countOrd ered By: Bhavin Quinn on 05-15-2025 Neutrophils (Bld) [#/Vol] 10.8 10*3/uL High 2.0-7.7 [facility] Anion gap in Serum or Plasma Ordered By: Bhavin Quinn on 05-15-2025 Anion gap [Moles/Vol] 13 mmol/L - [facility] Automated lymphocyte count a s percentage of total leukocytesOrdered By: Bhavin Quinn on 05-15-2025 Lymphocytes/100 WBC Auto (Unsp spec) 21.1 % [facility] BUN/creatinine ratioOrdered By: Bhavin Quinn on 05-15-2025 Urea nitrogen/Creatinine [Mass ratio] 10.0 mg/mg - [facility] Basic Metabolic Profile (BMP )on 05-15-2025 BUN/CRE 10.0 RATIO Normal 06-13 [facility] Comment on above: Performed By: #### L 100.0100, L501.5200, L501.9520, L500.2500 #### [facility] [address] [place], [address] Calcium [Mass/Vol] 9.2 mg/dL Normal 7.6-11.0 [facility] Comment on above: Performed By: #### L 100.0100, L501.5200, L501.9520, L500.2500 #### [facility] [address] [place], [address] Chloride [Moles/Vol] 105 mmol/L Normal 98-108 [facility] Comment on above: Performed By: #### L 100.0100, L501.5200, L501.9520, L500.2500 #### [facility] [address] [place], [address] CO2 [Moles/Vol] 23.7 mmol/L Normal 21.0-32.0 [facility] Comment on above: Performed By: #### L 100.0100, L501.5200, L501.9520, L500.2500 #### [facility] [address] [place], [address] Creatinine [Mass/Vol] 0.68 mg/dL Low 0.70-1.20 [facility] Comment on above: Performed By: #### L 100.0100, L501.5200, L501.9520, L500.2500 #### [facility] [address] [place], [address] ECRCL 85.13 ml/min Normal 50-250 [facility] Comment on above: Performed By: #### L 100.0100, L501.5200, L501.9520, L500.2500 #### [facility] [address] [place], [address] GAP 13 Normal 5-15 [facility] Comment on above: Performed By: #### L 100.0100, L501.5200, L501.9520, L500.2500 #### [facility] [address] [place], [address] GFR/1.73 sq M.predicted among non-blacks MDRD (S/P/Bld) [Vol rate/Area] 95 mL/min/{1.73_m2} Normal >60 [facility] Comment on above: Result Comment: mL/m in/1.73m2 CKD-EPI Creatinine Equation (2020) Performed By: #### L 100.0100, L501.5200, L501.9520, L500.2500 #### [facility] [address] [place], [address] Glucose [Mass/Vol] 163 mg/dL High 70-99 [facility] Comment on above: Performed By: #### L 100.0100, L501.5200, L501.9520, L500.2500 #### [facility] [address] [place], [address] Potassium [Moles/Vol] 3.7 mmol/L Normal 3.3-5.1 [facility] Comment on above: Result Comment: Hemo lysis present, Results??could be affected. ?? Performed By: #### L 100.0100, L501.5200, L501.9520, L500.2500 #### [facility] [address] [place], [address] Sodium [Moles/Vol] 142 mmol/L Normal 133-145 [facility] Comment on above: Performed By: #### L 100.0100, L501.5200, L501.9520, L500.2500 #### [facility] [address] [place], [address] Urea nitrogen [Mass/Vol] 7 mg/dL Normal 4-19 [facility] Comment on above: Performed By: #### L 100.0100, L501.5200, L501.9520, L500.2500 #### [facility] [address] [place], [address] Basophil percentageOrdered B y: Bhavin Quinn on 05-15-2025 Basophils/100 WBC (Bld) 0.4 % 0-1 [facility] Bilirubin Test strip Ql (U)O rdered By: Bhavin Quinn on 05-15-2025 Bilirubin Ql (U) Negative Negative [facility] Brain/Head without Contrasto n 05-15-2025 Brain/Head without Contrast [facility] Imaging Services [address] [place] [address] Brain/Head without Contrast MR#: [id number] Acct: [id number] Name: IVET VALERO Rep #: [id number] : 1955 F 70 From: Tay Leon MD PCP: Dr. Ricci Cole MD Status: REG ER Study: Brain/Head without Contrast Date of Exam: 04/26 09/18 Exam# [id number] Ordering Dr: Bhavin Quinn DO PROCEDURE: BRAIN/HEAD [...] ischemic gliotic white matter changes. Reading Location: [facility] CC: Dr. Ricci Cole MD; Bhavin Quinn DO Job Cost Estimator: Signed Normal [facility] CBC W/Diff, Automatedon 04-26 Absolute Lymph 3.26 X10 3/uL Normal 0.83-4.51 [facility] Comment on above: Performed By: #### L 100.0100, L501.5200, L501.9520, L500.2500 #### [facility] [address] [place], [address] Absolute Neut 10.8 X10 3/uL High 2.0-7.7 [facility] Comment on above: Performed By: #### L 100.0100, L501.5200, L501.9520, L500.2500 #### [facility] [address] [place], [address] Basophils/100 WBC (Bld) 0.4 % Normal 0-1 [facility] Comment on above: Performed By: #### L 100.0100, L501.5200, L501.9520, L500.2500 #### [facility] [address] [place], [address] Eosinophils/100 WBC (Bld) 0.5 % Normal 0-5 [facility] Comment on above: Performed By: #### L 100.0100, L501.5200, L501.9520, L500.2500 #### [facility] [address] [place], [address] Erythrocyte distribution width (RBC) [Ratio] 13.2 % Normal 11.6-14.6 [facility] Comment on above: Performed By: #### L 100.0100, L501.5200, L501.9520, L500.2500 #### [facility] [address] [place], [address] Hematocrit (Bld) [Volume fraction] 40.2 % Normal 37-47 [facility] Comment on above: Performed By: #### L 100.0100, L501.5200, L501.9520, L500.2500 #### [facility] [address] [place], [address] Hemoglobin (Bld) [Mass/Vol] 13.4 g/dL Normal 12.0-15.0 [facility] Comment on above: Performed By: #### L 100.0100, L501.5200, L501.9520, L500.2500 #### [facility] [address] [place], [address] IG% 0.700 Normal 0.0-0.9 [facility] Comment on above: Result Comment: IG% - Immature Granulocytes (promyelocytes, myelocytes and metamyelocytes) > 1% indicates that a LEFT SHIFT is Present. Performed By: #### L 100.0100, L501.5200, L501.9520, L500.2500 #### [facility] [address] [place], [address] Lymphocytes/100 WBC (Bld) 21.1 % Normal 19-41 [facility] Comment on above: Performed By: #### L 100.0100, L501.5200, L501.9520, L500.2500 #### [facility] [address] [place], [address] MCH (RBC) [Entitic mass] 30.7 pg Normal 27.0-32.0 [facility] Comment on above: Performed By: #### L 100.0100, L501.5200, L501.9520, L500.2500 #### [facility] [address] [place], [address] MCHC (RBC) [Mass/Vol] 33.3 g/dL Normal 32-36 [facility] Comment on above: Performed By: #### L 100.0100, L501.5200, L501.9520, L500.2500 #### [facility] [address] [place], [address] MCV (RBC) [Entitic vol] 92.2 fL Normal 81-99 [facility] Comment on above: Performed By: #### L 100.0100, L501.5200, L501.9520, L500.2500 #### [facility] [address] [place], [address] Monocytes/100 WBC (Bld) 7.4 % Normal 0-10 [facility] Comment on above: Performed By: #### L 100.0100, L501.5200, L501.9520, L500.2500 #### [facility] [address] [place], [address] Neutrophils/100 WBC (Bld) 69.9 % Normal 47-70 [facility] Comment on above: Performed By: #### L 100.0100, L501.5200, L501.9520, L500.2500 #### [facility] [address] [place], [address] Nucleated RBC (Bld) [#/Vol] 0 10*3/uL Normal 0-5 [facility] Comment on above: Performed By: #### L 100.0100, L501.5200, L501.9520, L500.2500 #### [facility] [address] [place], [address] Platelet mean volume (Bld) [Entitic vol] 9.7 fL Normal 6.2-12.0 [facility] Comment on above: Performed By: #### L 100.0100, L501.5200, L501.9520, L500.2500 #### [facility] [address] [place], [address] Platelets (Bld) [#/Vol] 285 10*3/uL Normal 150-450 [facility] Comment on above: Performed By: #### L 100.0100, L501.5200, L501.9520, L500.2500 #### [facility] [address] [place], [address] RBC (Bld) [#/Vol] 4.36 10*6/uL Normal 4.2-5.4 [facility] Comment on above: Performed By: #### L 100.0100, L501.5200, L501.9520, L500.2500 #### [facility] [address] [place], [address] RDW SD 45.2 fl High 35.1-43.9 [facility] Comment on above: Performed By: #### L 100.0100, L501.5200, L501.9520, L500.2500 #### [facility] [address] [place], [address] WBC (Bld) [#/Vol] 15.5 10*3/uL High 4.4-11.0 [facility] Comment on above: Performed By: #### L 100.0100, L501.5200, L501.9520, L500.2500 #### [facility] [address] [place], [address] Carbon dioxide, total [Moles /volume] in Central venous bloodOrdered By: Bhavin Quinn on 05-15-2025 CO2 [Moles/Vol] 23.7 mmol/L 21.0-32.0 [facility] Chest without Contraston Chest without Contrast [facility] Imaging Services [address] [place] [address] Chest without Contrast MR#: [id number] Acct: [id number] Name: IVET VALERO Rep #: [id number] : 1955 F 70 From: Tay Leon MD PCP: Dr. Ricci Cole MD Status: REG ER Study: Chest without Contrast Date of Exam: 05/15/25 Exam# [id number] Ordering Dr: Bhavin Quinn DO PROCEDURE: CHEST [...] renal cyst measures 3.5 cm. Reading Location: [facility] CC: Dr. Ricci Cole MD; Bhavin Quinn DO Job Cost Estimator: Signed Normal [facility] Chloride assayOrdered By: Yahaira Quinn on 05-15-2025 Chloride [Moles/Vol] 105 mmol/L 98-108 [facility] Emergency Department Summary on 05-15-2025 Emergency Department Summary [facility] Medical Records Department [address] [place] [address] Emergency Department Summary 05/15/25 MR#: [id number] Acct: [id number] Name: IVET VALERO Rep #: [id number] : 1955 70 From: Bhavin Quinn DO [...] was brought to the hospital for evaluation [facility] Medical History Wears dentures Wears [...] Denies chills (more content not included)... Normal [facility] Eosinophil percentageOrdered By: Bhavin Quinn on 05-15-2025 Eosinophils/100 WBC (Bld) 0.5 % 0-5 [facility] Erythrocyte distribution wid th ratioOrdered By: Bhavin Quinn on 05-15-2025 Erythrocyte distribution width (RBC) [Ratio] 13.2 % 11.6-14.6 [facility] Erythrocyte distribution wid th standard deviationOrdered By: Bhavin Quinn on 05-15-2025 Erythrocyte distribution width (RBC) [Ratio] 45.2 fl High 35.1-43.9 [facility] Glomerular filtration rate ( GFR) estimation/1.73 sq m using serum, plasma, or whole bOrdered By: Bhavin Quinn on 05-15-2025 GFR/1.73 sq M.predicted among non-blacks MDRD (S/P/Bld) [Vol rate/Area] 95 mL/min/{1.73_m2} >60 [facility] Comment on above: mL/min/1.73m2 CKD-EP I Creatinine Equation (2020) Hematocrit Auto (Bld) [Volum e fraction]Ordered By: Bhavin Quinn on 05-15-2025 Hematocrit (Bld) [Volume fraction] 40.2 % 37-47 [facility] Hemoglobin measurementOrdere d By: Bhavin Quinn on 05-15-2025 Hemoglobin (Bld) [Mass/Vol] 13.4 g/dL 12.0-15.0 [facility] Immature granulocytes/100 WB C Auto (Bld)Ordered By: Bhavin Quinn on 05-15-2025 Immature granulocytes/100 WBC (Bld) 0.700 % 0.0-0.9 [facility] Comment on above: IG% - Immature Granu locytes (promyelocytes, myelocytes and metamyelocytes) > 1% indicates that a LEFT SHIFT is Present. Ketones Test strip Ql (U)Ord ered By: Bhavin Quinn on 05-15-2025 Ketones Ql (U) Negative Negative [facility] MCV (mean corpuscular volume ) determinationOrdered By: Bhavin Quinn on 05-15-2025 MCV (RBC) [Entitic vol] 92.2 fL 81-99 [facility] Magnesiumon 05-15-2025 Magnesium [Mass/Vol] 2.0 mg/dL Normal 1.5-2.2 [facility] Comment on above: Performed By: #### L 100.0100, L501.5200, L501.9520, L500.2500 #### [facility] [address] [place] [address], [address] Magnesium measurement (mass/ volume)Ordered By: Bhavin Quinn on 05-15-2025 Magnesium (Unsp spec) [Mass/Vol] 2.0 mg/dL 1.5-2.2 [facility] Mean corpuscular hemoglobin (MCH) determinationOrdered By: Bhavin Quinn on 05-15-2025 MCH (RBC) [Entitic mass] 30.7 pg 27.0-32.0 [facility] Mean corpuscular hemoglobin concentration (MCHC) determinationOrdered By: Bhavin Quinn on 05-15-2025 MCHC (RBC) [Mass/Vol] 33.3 g/dL 32-36 [facility] Mean platelet volume determi nationOrdered By: Bhavin Quinn on 05-15-2025 Platelet mean volume (Bld) [Entitic vol] 9.7 fL 6.2-12.0 [facility] Microscopic analysis of urin e for red blood cells (RBC)Ordered By: Bhavin Quinn on 05-15-2025 Microscopic analysis of urine for red blood cells (RBC) 0 SEEN /hpf 0-5 [facility] Monocyte percentageOrdered B y: Bhavin Quinn on 09-21-2025 Monocytes/100 WBC (Bld) 7.4 % 0-10 [facility] Mucus LM Ql (Urine sed)Order ed By: Bhavin Quinn on 05-15-2025 Mucus Ql (Urine sed) 0 SEEN /hpf [facility] Neutrophil percentageOrdered By: Bhavin Quinn on 05-15-2025 Neutrophils/100 WBC (Bld) 69.9 % 47-70 [facility] Nitrite Test strip Ql (U)Ord ered By: Bhavin Quinn on 05-15-2025 Nitrite Ql (U) Negative Negative [facility] Nucleated red blood cell per centageOrdered By: Bhavin Quinn on 05-15-2025 Nucleated RBC/100 WBC (Bld) [Ratio] 0 % 0-5 [facility] Platelet countOrdered By: Yahaira Quinn on 05-15-2025 Platelets (Bld) [#/Vol] 285 10*3/uL 150-450 [facility] Potassium measurement (mass/ volume)Ordered By: Bhavin Quinn on 05-15-2025 Potassium (Unsp spec) [Mass/Vol] 3.7 mmol/L 3.3-5.1 [facility] Comment on above: Hemolysis present, R esults could be affected. Protein Test strip Ql (U)Ord ered By: Bhavin Quinn on 05-15-2025 Protein Ql (U) Negative Negative [facility] RBC Auto (Bld) [#/Vol]Ordere d By: Bhavin Quinn on 05-15-2025 RBC (Bld) [#/Vol] 4.36 10*6/uL 4.2-5.4 [facility] Serum creatinine measurement (mass/volume)Ordered By: Bhavin Quinn on 05-15-2025 Creatinine [Mass/Vol] 0.68 mg/dL Low 0.70-1.20 [facility] Serum glucose measurement (m ass/volume)Ordered By: Bhavin Quinn on 05-15-2025 Glucose [Mass/Vol] 163 mg/dL High 70-99 [facility] Serum or plasma calcium maria elena urement (mass/volume)Ordered By: Bhavin Quinn on 05-15-2025 Calcium [Mass/Vol] 9.2 mg/dL 7.6-11.0 [facility] Serum or plasma urea nitroge n measurement (mass/volume)Ordered By: Bhavin Quinn on 05-15-2025 Urea nitrogen [Mass/Vol] 7 mg/dL 4-19 [facility] Sodium levelOrdered By: Elgin Quinn on 05-15-2025 Sodium [Moles/Vol] 142 mmol/L 133-145 [facility] Squamous epithelial cells de tection in urine sediment by light microscopyOrdered By: Bhavin Quinn on 05-15-2025 Epithelial cells.squamous LM Ql (Urine sed) 0-5 SEEN /hpf 5-10 [facility] TSH DL <= 0.005 mIU/L QnOrde red By: Bhavin Quinn on 05-15-2025 TSH Qn 0.570 uIU/mL 0.300-4.200 [facility] Thyroid Stim Hormone (TSH)on 05-15-2025 TSH 0.570 uIU/mL Normal 0.300-4.200 [facility] Comment on above: Performed By: #### L 100.0100, L501.5200, L501.9520, L500.2500 #### [facility] [address] [place], [place], [id number] Urinalysis, Completeon 05-15 BACTERIA 4+ /hpf Normal None Seen [facility] Comment on above: Order Comment: ALEKSANDAR CTOR TO SPECIFY Performed By: #### L 400.0001 #### [facility] [address] [place], [address] EPI,SQUAMOUS 0-5 SEEN Normal 5-10 [facility] Comment on above: Order Comment: ALEKSANDAR CTOR TO SPECIFY Performed By: #### L 400.0001 #### [facility] [address] [place], [address] WBC 0-5 SEEN Normal 0-5 [facility] Comment on above: Order Comment: ALEKSANDAR CTOR TO SPECIFY Performed By: #### L 400.0001 #### [facility] [address] [place], [address] Mucus Ql (Urine sed) 0 SEEN Normal [facility] Comment on above: Order Comment: ALEKSANDAR CTOR TO SPECIFY Performed By: #### L 400.0001 #### [facility] [address] [place], [place], [id number] RBC 0 SEEN Normal 0-5 [facility] Comment on above: Order Comment: ALEKSANDAR CTOR TO SPECIFY Performed By: #### L 400.0001 #### [facility] [address] [place], [place], [id number] Urine clarityOrdered By: Kelvin Quinn on 05-15-2025 Clarity (U) Sl. Cloudy Clear [facility] Urine color determinationOrd ered By: Bhavin Quinn on 05-15-2025 Color (U) Yellow Yellow [facility] Urine cultureOrdered By: Kelvin Quinn on 05-15-2025 Bacteria identified Cx Nom (U) ESBL Escherichia coli Abnormal [facility] Urine glucose detectionOrder ed By: Bhavin Quinn on 05-15-2025 Glucose Ql (U) 1000 mg/dl High Normal [facility] Urine leukocyte esterase det ection by dipstickOrdered By: Bhavin Quinn on 05-15-2025 Leukocyte esterase Test strip Ql (U) 25 /ul High Negative [facility] Urine pHOrdered By: Bhavin lewis on 05-15-2025 pH (U) 6.0 [pH] 5.0 - 8.0 [facility] Urine sediment bacteria coun t by microscopy (number/high power field)Ordered By: Bhavin Quinn on 05-15-2025 Bacteria LM.HPF (Urine sed) [#/Area] 4 /[HPF] None Seen [facility] Urine specific gravity measu rementOrdered By: Bhavin Quinn on 05-15-2025 Specific gravity (U) [Rel density] 1.010 1.002-1.030 [facility] Urine urobilinogen measureme ntOrdered By: Bhavin Quinn on 05-15-2025 Urobilinogen Ql (U) Normal mg/dl Normal [facility] White blood cell (WBC) count Ordered By: Bhavin Quinn on 05-15-2025 WBC (Bld) [#/Vol] 15.5 10*3/uL High 4.4-11.0 [facility] White blood cell countOrdere d By: Bhavin Quinn on 05-15-2025 White blood cell count 0-5 SEEN /hpf 0-5 [facility] CNPNon 05-10-2025 CNPN Telephone (FAMPWS) IVET VALERO ([id number]) 1955 F Date Time Provider Department 05/10/25 SMILEY MELO During your visit today, we recorded the following information about you: Diane Guillermo RN 05/10/2025 11:09 AM Signed Megha HERNANDEZ Brick Burner Head with [facility] called I about Pt's insurance PA for the Phenergan suppository. The Reference # is [id number], she states they will fax the recommendation [...] every 6 hours as needed. - Insulin [place], Disposable, (BD ULTRA-FINE MINDY PEN NEEDLE) 32 [...] mg by mouth once daily. - Insulin [place], Disposable, 32 gauge x 5/16 ndle Use [...] incontinence [N3 (more content not included)... Normal [facility] CNOVon 05-06-2025 CNOV Office Visit (FAMPWS ) IVET VALERO ([id number]) 1955 F Date Time Provider Department 05/06/25 8:40 AM SMILEY M[facility]O [facility] During your visit today, we recorded the following information about you: Temperature Pulse Blood pressure Weight 97.8 degrees 103/minute 132/76 102.5 kg Smiley Melo APRN.NEUROPHYSIOLOGICAL TECHNICIAN 05/06/2025 9:13 AM Signed This is a [...] 6 hours as needed for nausea/vomiting. Insulin [place], Disposable, (BD ULTRA-FINE MINDY PEN NEEDLE) 32 [...] busPIRone (BUSP (more content not included)... Normal [facility] IVET VALERO ([id number]) 1955 F Date Time Provider Department 04/07/25 SMILEY MELO [facility] During your visit today, we recorded the [...] with meals for 7 days. - Insulin [place], Disposable, (BD ULTRA-FINE MINDY PEN NEEDLE) 32 [...] mg by mouth once daily. - Insulin [place], Disposable, 32 gauge x 5/16 ndle Use [...] with h (more content not included)... Normal [facility] Bacteria Ur Culton Bacteria identified Cx Nom [...] , Intermediate >32 , Resistant >64 Abnormal [facility] Comment on above: Performed By: #### 6 30-4, 18173-0 ####[facility] LABCLIA [id number] [address] OF [facility] CNOVon 03-29-2025 CNOV Office Visit (FAMPWS ) ANJUMKEYANNAH Joe ([id number]) 1955 F Date Time Provider Department 03/29/25 11:20 AM [facility] today, we recorded [...] 300 mg by mouth once daily. Insulin [place], Disposable, 32 gauge x 5/16 ndle Use four times daily with insulin QUEtiapine XR (SEROQUEL XR) 300 mg 24 hr tablet Take 300 mg by mouth daily at bedtime. Blood Pressure Monitor EXLARGE BLOOD PRESSURE CUFF MONITOR KIT checking bp 4 times daily Insulin [place], Disposable, (BD ULTRA-FINE MINDY PEN NEEDLE) 32 [...] U-300 conc (more content not included)... Normal [facility] Urinalysis complete panel (U )on 03-29-2025 BACTERIA UL >9821 High Negative [facility] Comment on above: Order Comment: Speci men Type: URINE SPECIMENOrdering Facility: [facility] Address: [address] [place] [address] Performed By: #### 6 30-4, 02707-4 ####[facility] LABCLIA [id number] [address] [place] [address] [place] Bilirubin Ql (U) Negative Normal Negative [facility] Comment on above: Order Comment: Speci men Type: URINE SPECIMENOrdering Facility: [facility] Address: [address] [place] [address] Performed By: #### 6 30-4, 14033-3 ####[facility] LABCLIA [id number] [address] [place] [address] [place] Clarity (Unsp spec) Cloudy Abnormal Clear [facility] Comment on above: Order Comment: Speci men Type: URINE SPECIMENOrdering Facility: [facility] Address: [address] [place] [address] Performed By: #### 6 30-, 93146-9 ####[facility] LABCLIA [id number] [address] [place] [address] [place] Color (U) Yellow Normal Yellow [facility] Comment on above: Order Comment: Speci men Type: URINE SPECIMENOrdering Facility: [facility] Address: [address] [place] [address] Performed By: #### 6 30-4, 75404-3 ####[facility] LABCLIA [id number] [address] [place] [address] [place] Epithelial cells LM.HPF (Urine sed) [#/Area] None Seen Normal [facility] Comment on above: Order Comment: Speci men Type: URINE SPECIMENOrdering Facility: [facility] Address: [address] [place] [address] Performed By: #### 6 30-4, 53205-9 ####[facility] LABCLIA [id number] [address] [place] [address] [place] Glucose Test strip (U) [Mass/Vol] 3+ Abnormal Negative [facility] Comment on above: Order Comment: Speci men Type: URINE SPECIMENOrdering Facility: [facility] Address: [address] [place] [address] Performed By: #### 6 30-4, 10908-3 ####[facility] LABCLIA [id number] [facility] [address], [facility]95 [place] Hemoglobin Ql (U) Trace Abnormal Negative [facility] Comment on above: Order Comment: Speci men Type: URINE SPECIMENOrdering Facility: [facility] Address: [address] [place] [address] Performed By: #### 6 30-4, 88258-5 ####[facility]CLIA [id number] [facility] [address], [facility]95 [place] Hyaline casts (Urine sed) [#/Area] 0 /[LPF] Normal 0 /LPF [facility] Comment on above: Order Comment: Speci men Type: URINE SPECIMENOrdering Facility: [facility] Address: [address] [place] [address] Performed By: #### 6 30-4, 48142-5 ####[facility] LABCLIA [id number] [address], [address] [place] Ketones Ql (U) Negative Normal Negative [facility] Comment on above: Order Comment: Speci men Type: URINE SPECIMENOrdering Facility: [facility] Address: [address] [place] [address] Performed By: #### 6 30-4, 79825-7 ####[facility] LABCLIA [id number] [place] [id number] [place] Leukocyte esterase Test strip Ql (U) 2+ Abnormal Negative [facility] Comment on above: Order Comment: Speci men Type: URINE SPECIMENOrdering Facility: [facility] Address: [address] [place] [address] Performed By: #### 6 30-4, 70657-1 ####[facility] LABCLIA [id number] [place] [id number] [place] Nitrite Ql (U) Negative Normal Negative [facility] Comment on above: Order Comment: Speci men Type: URINE SPECIMENOrdering Facility: [facility] Address: [address] [place] [address] Performed By: #### 6 30-4, 52935-0 ####[facility] LABIA [id number] [place] [address] [place] pH (U) 5.5 [pH] Normal 5.0-8.0 [facility] Comment on above: Order Comment: Speci men Type: URINE SPECIMENOrdering Facility: [facility] Address: [address] [place] [address] Performed By: #### 6 30-4, 32910-6 ####[facility] LABIA [id number] [place] [address] [place] Protein (U) [Mass/Vol] Trace Abnormal Negative Cl [facility] Comment on above: Order Comment: Speci men Type: URINE SPECIMENOrdering Facility: [facility] Address: [address] [place] [address] Performed By: #### 6 30-4, 62185-2 ####[facility] LABIA [id number] [place] [address] [place] RBC LM.HPF (Urine sed) [#/Area] 6-10 /HPF Abnormal 0-2 /HPF [facility] Comment on above: Order Comment: Speci men Type: URINE SPECIMENOrdering Facility: [facility] Address: [address] [place] [address] Performed By: #### 6 30-4, 86995-9 ####[facility] LABIA [id number] [place] [id number] [place] Specific gravity (U) [Rel density] 1.020 Normal 1.005-1.030 [facility] Comment on above: Order Comment: Speci men Type: URINE SPECIMENOrdering Facility: [facility] Address: [address] [place] [address] Performed By: #### 6 30-4, 67991-2 ####[facility] LABCLIA [id number] [place] [address] [place] Urobilinogen Ql (U) 0.2 EU/dL Normal 0.2-1.0 EU/dL [facility] Comment on above: Order Comment: Speci men Type: URINE SPECIMENOrdering Facility: [facility] Address: [address] [place] [address] Performed By: #### 6 30-4, 36612-7 ####[facility] LABIA [id number] [place] [address] [place] WBC LM.HPF (Urine sed) [#/Area] /[HPF] Abnormal 0-5 /HPF [facility] Comment on above: Order Comment: Speci men Type: URINE SPECIMENOrdering Facility: [facility] Address: [address] [place] [address] Performed By: #### 6 30-4, 71296-3 ####[facility] LABIA [id number] [place] [address] [place] Yeast.budding LM.HPF (Urine sed) [#/Area] Present Abnormal None Seen [facility] Comment on above: Order Comment: Speci men Type: URINE SPECIMENOrdering Facility: [facility] Address: [address] [place] [address] Performed By: #### 6 30-4, 43369-4 ####[facility] LABCLIA [id number] [place] [address] [place] Yeast.hyphae LM.HPF (Urine sed) [#/Area] Present Abnormal None Seen [facility] Comment on above: Order Comment: Speci men Type: URINE SPECIMENOrdering Facility: [facility] Address: [address] [place] [address] Performed By: #### 6 30-4, 65242-5 ####[facility] LABCLIA [id number] [place] [address] [place] XR CHEST 2V [...] degenerative changes. IMPRESSION: No acute radiographic abnormality. Job Cost Estimator: JOHNIE Transcribe Date/Time: Mar 29 2025 2:28P Dictated by : MCKENZIE CURTIS MD This examination was interpreted and the report reviewed and electronically signed by: MCKENZIE CURTIS MD on Mar 29 2025 2:29PM EST [id number] Normal [facility] IVET VALERO ([id number]) 1955 F Date Time Provider Department 03/24/25 RICCI COLE FAMPWS During your visit today, we recorded the following information about you: Yasmany Willis RN 03/24/2025 10:23 AM [facility]igned [facility] reports [facility]'s incontinent supplies request was denied of payment due to not reimburseable. [facility] pcp can appeal or go through Medicaid. [...] up to 38 units tid. - Insulin [place], Disposable, (BD ULTRA-FINE MINDY PEN NEEDLE) 32 [...] mg by mouth once daily. - Insulin [place], Disposable, 32 gauge x 516 ndle Use [...] Diagnosed: 07/26 (more content not included)... Normal [facility] CNOVon 03-10-2025 CNOV Office Visit (FAMPWS ) IVET VALERO ([id number]) 1955 F Date Time Provider Department 03/10/25 10:40 AM SMILEY MELO FAMPWS During your visit today, we recorded the following information about you: Temperature Pulse Blood pressure 99 degrees 110/minute 140/78 Smiley Melo, PROCESS DESIGN ENGINEER.NEUROPHYSIOLOGICAL TECHNICIAN 03/10/2025 11:00 AM Signed This is a [...] scale up to 38 units tid. Insulin [place], Disposable, (BD ULTRA-FINE MINDY PEN NEEDLE) 32 [...] 300 mg by mouth once daily. Insulin [place], Disposable, 32 gauge x 5/16 ndle Use four times daily with insulin QUEtiapine XR (SEROQUEL XR) 300 mg 24 hr tablet Take 300 mg by mouth daily at bedtime. Blood Pressure Monitor EXLARGE BLOOD PRESSURE CUFF MO (more content not included)... Normal [facility] Urinalysis complete panel (U )on 03-10-2025 BACTERIA UL >9821 High Negative [facility] Comment on above: Order Comment: Speci men Type: URINE SPECIMEN [facility] Address: [address] [place] [address] Performed By: #### 2 4356-8 #### [facility] CLIA [id number] [address] [place] [address] [place] Bilirubin Ql (U) Negative Normal Negative [facility] Comment on above: Order Comment: Speci men Type: URINE SPECIMEN [facility] Address: [address] [place] [address] Performed By: #### 2 4356-8 #### [facility] CLIA [id number] [address] [place] [address] [place] Clarity (Unsp spec) Clear Normal Clear [facility] Comment on above: Order Comment: Speci men Type: URINE SPECIMEN [facility] Address: [address] [place] [address] Performed By: #### 2 4356-8 #### [facility] CLIA [id number] [address] [place] [address] [place] Color (U) Yellow Normal Yellow [facility] Comment on above: Order Comment: Speci men Type: URINE SPECIMEN [facility] Address: [address] [place] [address] Performed By: #### 2 4356-8 #### [facility] CLIA [id number] [address] [place] [address] [place] Epithelial cells LM.HPF (Urine sed) [#/Area] Few Normal [facility] Comment on above: Order Comment: Speci men Type: URINE SPECIMEN [facility] Address: [address] [place] [address] Performed By: #### 2 4356-8 #### [facility] CLIA [id number] [address] [place] [address] [place] Glucose Test strip (U) [Mass/Vol] 3+ Abnormal Negative [facility] Comment on above: Order Comment: Speci men Type: URINE SPECIMEN [facility] Address: [address] [place] [address] Performed By: #### 2 4356-8 #### [facility] CLIA [id number] [address] [place] [address] [place] Hemoglobin Ql (U) Negative Normal Negative [facility] Comment on above: Order Comment: Speci men Type: URINE SPECIMEN [facility] Address: [address] [place] [address] Performed By: #### 2 4356-8 #### [facility] CLIA [id number] [address] [place] [address] [place] Hyaline casts (Urine sed) [#/Area] 1-3 /LPF Abnormal 0 /LPF [facility] Comment on above: Order Comment: Speci men Type: URINE SPECIMEN [facility] Address: [address] [place] [address] Performed By: #### 2 4356-8 #### [facility] CLIA [id number] [address] [place], [place] [address] [place] Ketones Ql (U) Trace Abnormal Negative [facility] Comment on above: Order Comment: Speci men Type: URINE SPECIMEN [facility] Address: [address] [place] [address] Performed By: #### 2 4356-8 #### [facility] CLIA [id number] [address] [place] [address] [place] Leukocyte esterase Test strip Ql (U) Negative Normal Negative [facility] Comment on above: Order Comment: Speci men Type: URINE SPECIMEN [facility] Address: [address] [place] [address] Performed By: #### 2 4356-8 #### [facility] CLIA [id number] [address] [place] [address] [place] Nitrite Ql (U) Positive Abnormal Negative [facility] Comment on above: Order Comment: Speci men Type: URINE SPECIMEN [facility] Address: [address] [place] [address] Performed By: #### 2 4356-8 #### [facility] CLIA [id number] [address] [place] [address] [place] pH (U) 5.5 [pH] Normal 5.0-8.0 [facility] Comment on above: Order Comment: Speci men Type: URINE SPECIMEN [facility] Address: [address] [place] [address] Performed By: #### 2 4356-8 #### [facility] CLIA [id number] [address] [place] [address] [place] Protein (U) [Mass/Vol] Trace Abnormal Negative [facility] Comment on above: Order Comment: Speci men Type: URINE SPECIMEN [facility] Address: [address] [place] [address] Performed By: #### 2 4356-8 #### [facility] CLIA [id number] [address] [place] [address] [place] RBC LM.HPF (Urine sed) [#/Area] 0-2 /HPF Normal 0-2 /HPF [facility] Comment on above: Order Comment: Speci men Type: URINE SPECIMEN [facility] Address: [address] [place] [address] Performed By: #### 2 4356-8 #### [facility] CLIA [id number] [address] [place] [address] [place] Specific gravity (U) [Rel density] 1.023 Normal 1.005-1.030 [facility] Comment on above: Order Comment: Speci men Type: URINE SPECIMEN [facility] Address: [address] [place] [address] Performed By: #### 2 4356-8 #### [facility] CLIA [id number] [address] [place] [address] [place] Urobilinogen Ql (U) 0.2 EU/dL Normal 0.2-1.0 EU/dL [facility] Comment on above: Order Comment: Speci men Type: URINE SPECIMEN [facility] Address: [address] [place] [address] Performed By: #### 2 4356-8 #### [facility] CLIA [id number] [address] [place] [address] [place] WBC LM.HPF (Urine sed) [#/Area] 6-10 /HPF Abnormal 0-5 /HPF [facility] Comment on above: Order Comment: Speci men Type: URINE SPECIMEN [facility] Address: [address] [place] [address] Performed By: #### 2 4356-8 #### [facility] CLIA [id number] [address] [place] [address] [place] Yeast.budding LM.HPF (Urine sed) [#/Area] Present Abnormal None Seen [facility] Comment on above: Order Comment: Speci men Type: URINE SPECIMEN [facility] Address: [address] [place] [address] Performed By: #### 2 4356-8 #### [facility] CLIA [id number] [address] [place] [address] [place] Eric 03-09-2025 [facility] Telephone (FAMPWS) ANJUMIVET Diaz ([id number]) 1955 F Date Time Provider Department 03/09/25 RICCI COLE [facility] During your visit today, we recorded the [...] call and antibiotic in for her to [facility] in [place]. Please call and advise. NITIN Joel William [...] up to 38 units tid. - Insulin [place], Disposable, (BD ULTRA-FINE MINDY PEN NEEDLE) 32 [...] mg by mouth once daily. - Insulin [place], Disposable, 32 gauge x 5/16 ndle Use [...] Acute bron (more content not included)... Normal [facility] 25(OH)D3 Jan-Negar 2024 25-hydroxyvitamin D3 [Mass/Vol] 16.6 ng/mL Low 31.0-80.0 [facility] Comment on above: Order Comment: Speci men Type: BLOOD SPECIMENOrdering Facility: [facility] Address: [address] [place] [address] Result Comment: Clas sification of 25 [place] Vitamin D status: Deficiency/Insufficiency: < or = 30 ng/ml. Sufficiency/Optimal Levels: 31-80 ng/mL Toxicity: > 100 ng/mL. Test performed by chemiluminescent immunoassay. Performed By: #### 1 989-3 ####[facility] LABCLIA [id number] [address] [address] [place] 25-hydroxyvitamin D3 [Mass/V ol]on 03-01-2025 Interpretation and review of laboratory results Abnormal [facility] The reference range interval was based on an analysis of samples from healthy adults and may not pertain to children from 0-18 years old. [facility] ALBUMIN/CREATININE RATIO, UR INEon 03-01-2025 Albumin DL <= 20 mg/L (U) [Mass/Vol] 39.7 mg/L Normal [facility] Comment on above: Order Comment: Speci men Type: URINE SPECIMENOrdering Facility: [facility] Address: [address] [place] [address] Performed By: #### U ACR ####[facility] LABCLIA [id number] [address] [place] [address] [place] Albumin/Creatinine (U) [Mass ratio] 46 mg/g High <30 [facility] Comment on above: Order Comment: Speci men Type: URINE SPECIMENOrdering Facility: [facility] Address: [address] [place] [address] Result Comment: Adul t Male and Female Nephrotic Criteria: <30 mg/g is considered normal to mildly increased 30-300 mg/g is considered moderately increased >300 mg/g is considered severely increased KDIGO. (2013). KDIGO 2012 Clinical Practice Guideline for the Evaluation and Management of Chronic Kidney Disease. Official Journal of the International Society of Nephrology, 3(1), 1-150. Performed By: #### U ACR ####[facility]CLIA [id number] [address] [place] [address] [place] Creatinine (U) [Mass/Vol] 86.7 mg/dL Normal 20.0-300.0 [facility] Comment on above: Order Comment: Speci men Type: URINE SPECIMENOrdering Facility: [facility] Address: [address] [place] [address] Performed By: #### U ACR ####[facility]CLIA [id number] [facility] [address] [place] Bacteria Ur Culton [...] , Intermediate >32 , Resistant >64 Abnormal [facility] Comment on above: Performed By: #### 6 30-4 ####[facility]CLIA [id number] [address] OF [facility] CBC W Auto Differential pane l (Bld)on 03-01-2025 Basophils (Bld) [#/Vol] 0.07 10*3/uL [facility] Basophils/100 WBC (Bld) 0.5 % [facility] Differential cell count method Nom (Bld) Auto [facility] Eosinophils (Bld) [#/Vol] 0.15 10*3/uL [facility] Eosinophils/100 WBC (Bld) 1.2 % [facility] Erythrocyte distribution width (RBC) [Ratio] 13.2 % 11.5 - 15.0 % [facility] Hematocrit (Bld) [Volume fraction] 43.8 % 36.0 - 46.0 % [facility] Hemoglobin (Bld) [Mass/Vol] 14 g/dL 11.5 - 15.5 g/dL [facility] Immature granulocytes (Bld) [#/Vol] 0.08 10*3/uL [facility] Immature granulocytes/100 WBC (Bld) 0.6 % [facility] Interpretation and review of laboratory results Abnormal [facility] Lymphocytes (Bld) [#/Vol] 2.88 10*3/uL [facility] Lymphocytes/100 WBC (Bld) 22.4 % [facility] MCH (RBC) [Entitic mass] 30.5 pg 26. 0 - 34.0 pg [facility] MCHC (RBC) [Mass/Vol] 32 g/dL 30.5 - 36.0 g/dL [facility] MCV (RBC) [Entitic vol] 95.4 fL 80.0 - 100.0 fL [facility] Monocytes (Bld) [#/Vol] 0.77 10*3/uL [facility] Monocytes/100 WBC (Bld) 6 % C [facility] Neutrophils (Bld) [#/Vol] 8.89 10*3/uL High [facility] Neutrophils/100 WBC (Bld) 69.3 % [facility] Nucleated RBC (Bld) [#/Vol] NINF [facility] Nucleated RBC/100 WBC (Bld) [Ratio] 0 % /100 WBC [facility] Platelet mean volume (Bld) [Entitic vol] 9.6 fL 9.0 - 12.7 fL [facility] Platelets (Bld) [#/Vol] 362 10*3/uL [facility] RBC (Bld) [#/Vol] 4.59 10*6/uL 3.90 - 5.2 0 m/uL [facility] WBC (Bld) [#/Vol] 12.84 10*3/uL High [facility] Basophils (Bld) [#/Vol] 0.07 10*3/uL Normal <0.11 [facility] Comment on above: Order Comment: Speci men Type: BLOOD SPECIMEN Ordering Facility: [facility] Address: [address] [place] [address] Performed By: #### 5 7021-8 #### [facility] CLIA [id number] [address] [place] [address] [place] Basophils/100 WBC (Bld) 0.5 % Normal [facility] Comment on above: Order Comment: Speci men Type: BLOOD SPECIMEN Ordering Facility: [facility] Address: [address] [place] [address] Performed By: #### 5 7021-8 #### [facility] CLIA [id number] [address] [place] [address] [place] Differential cell count method Nom (Bld) Auto Normal [facility] Comment on above: Order Comment: Speci men Type: BLOOD SPECIMEN Ordering Facility: [facility] Address: [address] [place] [address] Performed By: #### 5 7021-8 #### [facility] CLIA [id number] [address] [place] [address] [place] Eosinophils (Bld) [#/Vol] 0.15 10*3/uL Normal <0.46 [facility] Comment on above: Order Comment: Speci men Type: BLOOD SPECIMEN Ordering Facility: [facility] Address: [address] [place] [address] Performed By: #### 5 7021-8 #### [facility] CLIA [id number] [address] [place] [address] [place] Eosinophils/100 WBC (Bld) 1.2 % Normal [facility] Comment on above: Order Comment: Speci men Type: BLOOD SPECIMEN Ordering Facility: [facility] Address: [address] [place] [address] Performed By: #### 5 7021-8 #### [facility] CLIA [id number] [address] [place] [address] [place] Erythrocyte distribution width (RBC) [Ratio] 13.2 % Normal 11.5-15.0 [facility] Comment on above: Order Comment: Speci men Type: BLOOD SPECIMEN Ordering Facility: [facility] Address: [address] [place] [address] Performed By: #### 5 7021-8 #### [facility] CLIA [id number] [address] [place] [address] [place] Hematocrit (Bld) [Volume fraction] 43.8 % Normal 36.0-46.0 [facility] Comment on above: Order Comment: Speci men Type: BLOOD SPECIMEN Ordering Facility: [facility] Address: [address] [place] [address] Performed By: #### 5 7021-8 #### [facility] CLIA [id number] [address] [place] [address] [place] Hemoglobin (Bld) [Mass/Vol] 14.0 g/dL Normal 11.5-15.5 [facility] Comment on above: Order Comment: Speci men Type: BLOOD SPECIMEN Ordering Facility: [facility] Address: [address] [place] [address] Performed By: #### 5 7021-8 #### [facility] CLIA [id number] [address] [place] [address] [place] Immature granulocytes (Bld) [#/Vol] 0.08 10*3/uL Normal <0.10 [facility] Comment on above: Order Comment: Speci men Type: BLOOD SPECIMEN Ordering Facility: [facility] Address: [address] [place] [address] Performed By: #### 5 7021-8 #### [facility] CLIA [id number] [address] [place] [address] [place] Immature granulocytes/100 WBC (Bld) 0.6 % Normal [facility] Comment on above: Order Comment: Speci men Type: BLOOD SPECIMEN Ordering Facility: [facility] Address: [address] [place] [address] Performed By: #### 5 7021-8 #### [facility] CLIA [id number] [address] [place] [address] [place] Lymphocytes (Bld) [#/Vol] 2.88 10*3/uL Normal 1.00-4.00 [facility] Comment on above: Order Comment: Speci men Type: BLOOD SPECIMEN Ordering Facility: [facility] Address: [address] [place] [address] Performed By: #### 5 7021-8 #### [facility] CLIA [id number] [address] [place] [address] [place] Lymphocytes/100 WBC (Bld) 22.4 % Normal [facility] Comment on above: Order Comment: Speci men Type: BLOOD SPECIMEN Ordering Facility: [facility] Address: [address] [place] [address] Performed By: #### 5 7021-8 #### [facility] CLIA [id number] [address] [place] [address] [place] MCH (RBC) [Entitic mass] 30.5 pg Normal 26.0-34.0 [facility] Comment on above: Order Comment: Speci men Type: BLOOD SPECIMEN Ordering Facility: [facility] Address: [address] [place] [address] Performed By: #### 5 7021-8 #### [facility] CLIA [id number] [address] [place] [address] [place] MCHC (RBC) [Mass/Vol] 32.0 g/dL Normal 30.5-36.0 [facility] Comment on above: Order Comment: Speci men Type: BLOOD SPECIMEN Ordering Facility: [facility] Address: [address] [place] [address] Performed By: #### 5 7021-8 #### [facility] CLIA [id number] [address] [place] [address] [place] MCV (RBC) [Entitic vol] 95.4 fL Normal 80.0-100.0 [facility] Comment on above: Order Comment: Speci men Type: BLOOD SPECIMEN Ordering Facility: [facility] Address: [address] [place] [address] Performed By: #### 5 7021-8 #### [facility] CLIA [id number] [address] [place] [address] [place] Monocytes (Bld) [#/Vol] 0.77 10*3/uL Normal <0.87 [facility] Comment on above: Order Comment: Speci men Type: BLOOD SPECIMEN Ordering Facility: [facility] Address: [address] [place] [address] Performed By: #### 5 7021-8 #### [facility] CLIA [id number] [address] [id number] [address] [place] Monocytes/100 WBC (Bld) 6.0 % Normal [facility] Comment on above: Order Comment: Speci men Type: BLOOD SPECIMEN Ordering Facility: [facility] Address: [address] [place] [address] Performed By: #### 5 7021-8 #### [facility] CLIA [id number] [address] [place] [address] [place] Neutrophils (Bld) [#/Vol] 8.89 10*3/uL High 1.45-7.50 [facility] Comment on above: Order Comment: Speci men Type: BLOOD SPECIMEN Ordering Facility: [facility] Address: [address] [place] [address] Performed By: #### 5 7021-8 #### [facility] CLIA [id number] [address] [place] [address] [place] Neutrophils/100 WBC (Bld) 69.3 % Normal [facility] Comment on above: Order Comment: Speci men Type: BLOOD SPECIMEN Ordering Facility: [facility] Address: [address] [place] [address] Performed By: #### 5 7021-8 #### [facility] CLIA [id number] [address] [place] [address] [place] Nucleated RBC (Bld) [#/Vol] 10*3/uL Normal <0.01 [facility] Comment on above: Order Comment: Speci men Type: BLOOD SPECIMEN Ordering Facility: [facility] Address: [address] [place] [address] Performed By: #### 5 7021-8 #### [facility] CLIA [id number] [address] [place] [address] [place] Nucleated RBC/100 WBC (Bld) [Ratio] 0.0 /100 WBC Normal [facility] Comment on above: Order Comment: Speci men Type: BLOOD SPECIMEN Ordering Facility: [facility] Address: [address] [place] [address] Performed By: #### 5 7021-8 #### [facility] CLIA [id number] [address] [place] [address] [place] Platelet mean volume (Bld) [Entitic vol] 9.6 fL Normal 9.0-12.7 [facility] Comment on above: Order Comment: Speci men Type: BLOOD SPECIMEN Ordering Facility: [facility] Address: [address] [place] [address] Performed By: #### 5 7021-8 #### [facility] CLIA [id number] [address] [place] [address] [place] Platelets (Bld) [#/Vol] 362 10*3/uL Normal 150-400 [facility] Comment on above: Order Comment: Speci men Type: BLOOD SPECIMEN Ordering Facility: [facility] Address: [address] [place] [address] Performed By: #### 5 7021-8 #### [facility] CLIA [id number] [address] [place] [address] [place] RBC (Bld) [#/Vol] 4.59 10*6/uL Normal 3.90-5.[address] [facility] Comment on above: Order Comment: Speci men Type: BLOOD SPECIMEN Ordering Facility: [facility] Address: [address] [place] [address] Performed By: #### 5 7021-8 #### [facility] CLIA [id number] [address] [place] [address] [place] WBC (Bld) [#/Vol] 12.84 10*3/uL High 3.70-11.00 [facility] Comment on above: Order Comment: Speci men Type: BLOOD SPECIMEN Ordering Facility: [facility] Address: [address] [place] [address] Performed By: #### 5 7021-8 #### [facility] CLIA [id number] [address] [place] [address] OF [facility] CNOVon 03-01-2025 CNOV Office Visit (FAMPWS ) IVET VALERO ([id number]) 1955 F Date Time Provider Department 03/01/25 9:20 [facility] During your visit today, we recorded [...] MD (Endocrinology) Friend, Dylan Huffman DO as Automation Architect (Gastroenterology) Nanci Huber APRN.CNP as Brass Molder (Family Medicine) Smiley Melo APRN.CNP as Brass Molder (Family Medicine) Concerns today: Cough, congestion and [...] disorder, n (more content not included)... Normal [facility] Comprehensive metabolic 2000 panelon 03-01-2025 Albumin [Mass/Vol] 4.0 g/dL Normal 3.9-4.9 [facility] Comment on above: Order Comment: Speci men Type: BLOOD SPECIMENOrdering Facility: [facility] Address: [address] [place] [address] Performed By: #### L IPNF, 76058-3, 17714-9, 3016-3 ####[facility] [id number] [place] [address] [place] ALP [Catalytic activity/Vol] 67 U/L Normal 34-123 [facility] Comment on above: Order Comment: Speci men Type: BLOOD SPECIMENOrdering Facility: [facility] Address: [address] [place] [address] Performed By: #### L IPNF, 86926-4, 05581-4, 3016-3 ####[facility] [id number] [place] [address] [place] ALT [Catalytic activity/Vol] 14 U/L Normal 7-38 [facility] Comment on above: Order Comment: Speci men Type: BLOOD SPECIMENOrdering Facility: [facility] Address: [address] [place] [address] Performed By: #### L IPNF, 91595-6, 07471-0, 3016-3 ####[facility] [id number] [address] [address] [place] Anion gap [Moles/Vol] 13 mmol/L Normal 8-15 [facility] Comment on above: Order Comment: Speci men Type: BLOOD SPECIMENOrdering Facility: [facility] Address: [address] [place] [address] Performed By: #### L IPNF, , 31329-3, 3016-3 ####[facility] [id number] [place] [address] [place] AST [Catalytic activity/Vol] 22 U/L Normal 13-35 [facility] Comment on above: Order Comment: Speci men Type: BLOOD SPECIMENOrdering Facility: [facility] Address: [address] [place] [address] Performed By: #### L IPNF, , 22058-9, 3016-3 ####[facility] [id number] [place] [id number] [place] Bilirubin [Mass/Vol] 0.4 mg/dL Normal 0.2-1.3 [facility] Comment on above: Order Comment: Speci men Type: BLOOD SPECIMENOrdering Facility: [facility] Address: [address] [place] [address] Performed By: #### L IPNF, 23552-7, 34491-9, 3016-3 ####[facility] [id number] [address] [address] [place] Calcium [Mass/Vol] 9.5 mg/dL Normal 8.5-10.2 [facility] Comment on above: Order Comment: Speci men Type: BLOOD SPECIMENOrdering Facility: [facility] Address: [address] [place] [address] Performed By: #### L IPNF, 63824-1, 09238-6, 3016-3 ####[facility] [id number] [place] [id number] [place] Chloride [Moles/Vol] 101 mmol/L Normal 98-107 [facility] Comment on above: Order Comment: Speci men Type: BLOOD SPECIMENOrdering Facility: [facility] Address: [address] [place] [address] Performed By: #### L IPNF, , 27730-9, 6-3 ####[facility] [id number] [place] [address] [place] CO2 [Moles/Vol] 22 mmol/L Normal 22-30 [facility] Comment on above: Order Comment: Speci men Type: BLOOD SPECIMENOrdering Facility: [facility] Address: [address] [place] [address] Performed By: #### L IPJOSE LUIS, , 55608-6, 6-3 ####[facility] [id number] [place] [id number] [place] Creatinine [Mass/Vol] 0.64 mg/dL Normal 0.58-0.96 [facility] Comment on above: Order Comment: Speci men Type: BLOOD SPECIMENOrdering Facility: [facility] Address: [address] [place] [address] Performed By: #### L IPNF, , 20218-0, 3016-3 ####[facility] [id number] [address] [address] [place] Creatinine and Glomerular filtration rate.predicted panel (S/P/Bld) 97 mL/min/1.73m??? Normal >=60 [facility] Comment on above: Order Comment: Jessica frank Type: BLOOD SPECIMENOrdering Facility: [facility] Address: [address] [place] [address] Result Comment: Odalis mated Glomerular Filtration Rate [...] GFR. Performed By: #### L IPJOSE LUIS, 68355-1, 78532-3, 6-3 ####[facility] [id number] [address] [address] [place] Glucose [Mass/Vol] 263 mg/dL High 74-99 [facility] Comment on above: Order Comment: Jessica frank Type: BLOOD SPECIMENOrdering Facility: [facility] Address: [address] [place] [address] Result Comment: The [place] Diabetes Association (ADA) provides guidance for cutoff [...] Standards of Medical Care in Diabetes 2016, [place] Diabetes Association. Diabetes Care. 2016.39(Suppl 1). Performed By: #### L IPNF, 30192-7, 55222-7, 6-3 ####[facility] [id number] [address] [address] [place] Potassium [Moles/Vol] 5.0 mmol/L Normal 3.7-5.1 [facility] Comment on above: Order Comment: Speci men Type: BLOOD SPECIMENOrdering Facility: [facility] Address: [address] [place] [address] Performed By: #### L IPNF, , 49724-8, 3015-3 ####[facility] [id number] [address] [place] [address] [place] Protein [Mass/Vol] 6.9 g/dL Normal 6.3-8.0 [facility] Comment on above: Order Comment: Speci men Type: BLOOD SPECIMENOrdering Facility: [facility] Address: [address] [place] [address] Performed By: #### L IPNF, , , 3015-3 ####[facility] [id number] [address] [address] [place] Sodium [Moles/Vol] 136 mmol/L Normal 136-144 [facility] Comment on above: Order Comment: Speci men Type: BLOOD SPECIMENOrdering Facility: [facility] Address: [address] [place] [address] Performed By: #### L IPNF, , , 3015-3 ####[facility] [id number] [address] [address] [place] Urea nitrogen [Mass/Vol] 8 mg/dL Normal 7-21 [facility] Comment on above: Order Comment: Speci men Type: BLOOD SPECIMENOrdering Facility: [facility] Address: [address] [place] [address] Performed By: #### L IPNF, , , 3015-3 ####[facility] [id number] [address] [address] [place] HbA1c (Bld)on 03-01-2025 Average glucose Estimated from glycated hemoglobin (Bld) [Mass/Vol] 180 mg/dL Normal [facility] Comment on above: Order Comment: Jessica monika Type: BLOOD SPECIMENOrdering Facility: [facility] Address: [address] [place] [address] Result Comment: eAG: (Estimated average glucose) is a calculated value from HgbA1c and is franchise sales representative of the average blood glucose level in the last 2-3 month period. Performed By: #### 5 5454-3 ####[facility] [id number] [place] [address] [place] HbA1c (Bld) [Mass fraction] 7.9 % High 4.3-5.6 [facility] Comment on above: Order Comment: Jessica monika Type: BLOOD SPECIMENOrdering Facility: [facility] Address: [address] [place] [address] Result Comment: Amer ican Diabetes Association guidelines indicate that patients with HgbA1c in the range 5.7-6.4% are at increased risk for development of diabetes, and intervention by lifestyle modification may be beneficial. HgbA1c greater or equal to 6.5% is considered diagnostic of diabetes. Performed By: #### 5 5454-3 ####[facility] [id number] [place] [address] [place] LIPID PANEL, NONFASTINGon Cholesterol [Mass/Vol] 223 mg/dL High <200 [facility] Comment on above: Order Comment: Jessica monika Type: BLOOD SPECIMENOrdering Facility: [facility] Address: [address] [place] [address] Result Comment: <200 mg/dL, Desirable 200-239 mg/dL, Borderline high >239 mg/dL, High Performed By: #### L IPNF, 69060-6, 00045-4, 3016-3 ####[facility] [id number] [place] [address] [place] HDL CHOLESTEROL, NF 63 mg/dL Normal >[address] [facility] Comment on above: Order Comment: Tanneri men Type: BLOOD SPECIMENOrdering Facility: [facility] Address: [facility] [place] [address] Result Comment: 40-5 9 mg/dL, Acceptable >59 mg/dL, High: Negative risk factor for coronary heart disease <40 mg/dL, Low: Positive risk factor for coronary heart disease Performed By: #### L IPNF, 74237-3, 24254-8, 3016-3 ####[facility] [id number] [address] [place] LDL CHOLESTEROL CALCULATED, NF 133 mg/dL High <100 [facility] Comment on above: Order Comment: Speci men Type: BLOOD SPECIMENOrdering Facility: [facility] Address: [address] [place] [address] Result Comment: <100 mg/dL, Optimal 100-129 mg/dL, Near optimal/above optimal 130-159 mg/dL, Borderline high 160-189 mg/dL, High >189 mg/dL, Very high Secondary prevention optimal LDL Cholesterol levels are recommended to be <70 mg/dL LDL cholesterol is calculated using the Quezada-NIH equation. Performed By: #### L IPJOSE LUIS, 00066-4, 08773-3, 3015-3 ####[facility] [id number] [address] LDL/HDL RATIO, NF 2.11 mg/dL Normal <2.54 [facility] Comment on above: Order Comment: Tanneri men Type: BLOOD SPECIMENOrdering Facility: [facility] Address: [address] [place] [address] Result Comment: Refe rence: 1. National Cholesterol Education Program ATP III Guideline At-A-Glance Quick Desk Reference: National Heart, Lung, and Blood [place]. National Institutes of Health. 2001: NIH Publication No. 01-3305. 2. An International Atherosclerosis Society position paper: global recommendations for the management of dyslipidemia: executive summary, Atherosclerosis. 2014: 232(2):410-413. Performed By: #### L IPNF, 44528-3, 08847-0, 6-3 ####[facility] [id number] [place] [id number] [place] NON HDL CHOL, NF 160 mg/dL High <130 [facility] Comment on above: Order Comment: Speci men Type: BLOOD SPECIMENOrdering Facility: [facility] Address: [address] [place] [address] Result Comment: <130 mg/dL, Optimal 130-159 mg/dL, Near optimal/above optimal 160-189 mg/dL, Borderline high 190-219 mg/dL, High >219 mg/dL, Very high Secondary prevention optimal non HDL Cholesterol levels are recommended to be <100 mg/dL Performed By: #### L IPNF, 57843-3, 63710-4, 3015-3 ####[facility] [id number] [address] [place] T CHOL/HDL RATIO NF 3.54 mg/dL Normal <5.[address] [facility] Comment on above: Order Comment: Speci men Type: BLOOD SPECIMENOrdering Facility: [facility] Address: [address] [place] [address] Performed By: #### L IPNF, , , 3015-3 ####[facility] [id number] [place] [address] [place] TRIGLYCERIDES, NF 153 mg/dL High <150 [facility] Comment on above: Order Comment: Speci men Type: BLOOD SPECIMENOrdering Facility: [facility] Address: [address] [place] [address] Result Comment: <150 mg/dL, Normal 150-199 mg/dL, Borderline high 200-499 mg/dL, High >499 mg/dL, Very high Performed By: #### L IPNF, , , 3015-3 ####[facility] [id number] [place] [id number] [place] VLDL CHOLESTEROL, NF 27 mg/dL Normal <30 [facility] Comment on above: Order Comment: Speci men Type: BLOOD SPECIMENOrdering Facility: [facility] Address: [address] [place] [address] Performed By: #### L IPNF, 57552-7, 24969-7, 3016-3 ####[facility] [id number] [place] [address] [place] Magnesium SerPl-mCncon 03-01 Magnesium [Mass/Vol] 1.7 mg/dL Normal 1.7-2.3 [facility] Comment on above: Order Comment: Speci men Type: BLOOD SPECIMENOrdering Facility: [facility] Address: [address] [place] [address] Performed By: #### L IPJOSE LUIS, 15265-1, 47126-0, 3016-3 ####[facility] [id number] [place] [address] [place] TSH SerPl-aCncon 03-01-2025 TSH Qn 1.660 m[IU]/L Normal 0.270-4.200 [facility] Comment on above: Order Comment: Speci men Type: BLOOD SPECIMENOrdering Facility: [facility] Address: [address] [place] [address] Performed By: #### L IPNF, 52398-9, 01633-6, 3016-3 ####[facility] [id number] [place] [address] [place] UA DIP, URINE (POC)on 2024 BILIRUBIN UA (POCT) Negative Negative [facility] CLARITY UA (POCT) Cloudy [facility] COLOR UA (POCT) Other [facility] GLUCOSE UA (POCT) 100 mg/dL Abnormal Negative [facility] Hemoglobin Ql (U) Trace-intact Abnormal Negative [facility] Interpretation and review of laboratory results Abnormal [facility] KETONE UA (POCT) Negative Negative mg/dL [facility] LEUKOCYTES UA (POCT) Small Abnormal Negative [facility] NITRITE UA (POCT) Positive Abnormal Negative [facility] PH UA (POCT) 5.5 4.5 - 8.0 [facility] Protein Ql (U) Trace Abnormal Negative mg/dL [facility] SPECIFIC GRAVITY UA (POCT) >=1.030 1.005 - 1.030 [facility] UROBILINOGEN UA (POCT) 0.2 Christine l E.U./dL [facility] Location:[address], [place], [place], [id number] [place] [address] POINT OF CARE [facility] VITAMIN D 25 HYDROXYon 03-01 25-hydroxyvitamin D3 [Mass/Vol] 16.6 ng/mL Low 31.0 - 80.0 ng/mL [facility] Comment on above: Classification of 25 [place] Vitamin D status: Deficiency/Insufficiency: < or = 30 ng/ml. Sufficiency/Optimal Levels: 31-80 ng/mL Toxicity: > 100 ng/mL. Test performed by chemiluminescent immunoassay. Vit B12 [facility] 025 Cobalamin (Vitamin B12) [Mass/Vol] 207 pg/mL Low 232-1245 [facility] Comment on above: Order Comment: Speci men Type: BLOOD SPECIMENOrdering Facility: [facility] Address: [address] [place] [address] Performed By: #### 2 132-9 ####[facility] [id number] [place] [address] [place] Eric 01-25-2025 [facility] Tele[facility] IVET VALERO ([id number]) 1955 F Date Time Provider Department 01/25/25 RICCI COLE [facility] During your visit today, we recorded the [...] Date Reviewed: 07/26/2024 Reviewed by: Smiley Melo APRN.NEUROPHYSIOLOGICAL TECHNICIAN - Fully Assessed Reason for Visit: requesting [...] mouth two times a day. - Insulin [place], Disposable, (BD ULTRA-FINE MINDY PEN NEEDLE) 32 [...] tablet by mouth once daily. - Insulin [place], Disposable, 32 gauge x 5/16 ndle Use [...] for nausea (more content not included)... [facility] ANJUMKEYANNAH Joe ([id number]) 1955 F Date Time Provider Department 12/23/24 RICCI COLE During your visit today, we recorded the following information about you: Joycelyn Esparza 12/23/2024 9:14 AM Signed Ivet is a patient of Ricci Cole MD today Mary from [employer] called and stated she will be faxing the order form for incontinent supplies to [phone]. Please call with any questions. Patient has been identified by name and birthdate. Was an appointment scheduled: No Closing statement: Results or non-symptom based questions: Thank you for calling [facility], your call will be returned within the next business day. Marylu Mariscal MA 12/27/2024 10:41 AM Addendum Fax received. Type of form: Certificate of Medical Necessity Form received via fax When form is completed, Fax form to [facility] at [phone] Form has been forwarded to Physician: ROSS Robles Lisa, MA 12/28/2024 11:42 AM Signed Completed form faxed Allergies As of Date: 12/23/2024 Noted Allergy Reaction CHANTIX (VARENICLINE) 01/22/2019 1 - Mental Status Change PENICILLINS 05/25/2008 4 - Hives SULFA (SULFONAMIDE ANTIBIOTICS) 09/19/2016 2 - Rash 14 - Other: See Comments Comments: Blisters and sore in throat Date Reviewed: 07/26/2024 Reviewed by: Smiley Melo APRN.NEUROPHYSIOLOGICAL TECHNICIAN - Fully Assessed Reason for Visit: Orders [...] mouth two times a day. - Insulin [place], Disposable, (BD ULTRA-FINE MINDY PEN NEEDLE) 32 [...] tablet by mouth once daily. - Insulin [place], Disposable, 32 gauge x 5/16 ndle Use [...] 09/07/2021 L (more content not included)... [facility] CNCOon 10-19-2024 CNCO Letter Text [facility] CNPNon 07-29-2024 [facility] IVET VALERO ([id number]) 1955 F Date Time Provider Department 07/29/24 RICCI COLE [facility] During your visit today, we recorded the following information about you: Karon Garcia, RN 07/29/2024 8:34 AM Signed [place] pharmacist from [facility] calling in this morning to say [...] Date Reviewed: 07/26/2024 Reviewed by: Smiley Melo APRN.NEUROPHYSIOLOGICAL TECHNICIAN - Fully Assessed Reason for Visit: Medication [...] mouth two times a day. - Insulin [place], Disposable, (BD ULTRA-FINE MINDY PEN NEEDLE) 32 [...] tablet by mouth once daily. - Insulin [place], Disposable, 32 gauge x 516 ndle Use [...] 35-39.9 [E66.8 (more content not included)... [facility] CNOVon 07-26-2024 CNOV Office Visit (FAMPWS ) IVET VALERO ([id number]) 1955 F Date Time Provider Department 07/26/24 10:00 AM SMILEY M[facility] During your visit today, we recorded the following information about you: Temperature Pulse Respiration Blood pressure 98.8 degrees 102/minute 20/minute 128/60 Weight 103 kg Smiley Melo APRN.[facility] 07/26/2024 10:47 AM Signed This is [...] Pt. Has Hx of UTI frequently Migraine [id number]-[id number] frontal and occipital. Has a workers comp [...] 6 hours as needed for nausea/vomiting. Insulin [place], Disposable, (BD ULTRA-FINE MINDY PEN NEEDLE) 32 gauge x 5/32 Use one needle for each dose, 4 times daily. (4mm) Lancets lancets Test blood sugar(s) 3-4 times daily. Dx: Type 2 DM-Controlled Insulin: Yes blood sugar diagnostic (BLOOD GLUCOSE TEST) test strip Test blood sugar(s) 3-4 times daily. Dx: Type 2 DM - Controlled E11.9 Insulin: Yes Insulin [place], Disposable, 32 gauge x 5/16 ndle Use four times daily with insulin Blood Pressure Monitor 1 Each once daily. Blood Pressure Monitor EXLARGE BLOOD PRESSURE CUFF MONITOR KIT checking bp 4 times daily No current (more content not included)... [facility] UA DIP, URINE (POC)on 2023 BILIRUBIN UA (POCT) Negative Negative [facility] CLARITY UA (POCT) Clear [facility] COLOR UA (POCT) Yellow [facility] GLUCOSE UA (POCT) 250 mg/dL Abnormal Negative [facility] Hemoglobin Ql (U) Moderate Abnormal Negative [facility] Interpretation and review of laboratory results Abnormal [facility] KETONE UA (POCT) Trace Negative mg/dL [facility] LEUKOCYTES UA (POCT) Trace Abnormal Negative [facility] NITRITE UA (POCT) Positive Abnormal Negative [facility] PH UA (POCT) 5.5 4.5 - 8.0 [facility] Protein Ql (U) >=300 Abnormal Negative mg/dL [facility] SPECIFIC GRAVITY UA (POCT) >=1.030 1.005 - 1.030 [facility] UROBILINOGEN UA (POCT) 0.2 Christine l E.U./dL [facility] Location:[address], [address] [place] [address] POINT OF CARE [facility] UA DIP, URINE (POC)on 2023 BILIRUBIN UA (POCT) Negative Negative [facility] CLARITY UA (POCT) [facility] COLOR UA (POCT) Мария [facility] GLUCOSE UA (POCT) 250 mg/dL Abnormal Negative [facility] Hemoglobin Ql (U) Negative Negative [facility] Interpretation and review of laboratory results Abnormal [facility] KETONE UA (POCT) 15 mg/dL Abnormal Negative [facility] LEUKOCYTES UA (POCT) Small Abnormal Negative [facility] NITRITE UA (POCT) Positive Abnormal Negative [facility] PH UA (POCT) 6.0 4.5 - 8.0 [facility] Protein Ql (U) Trace Abnormal Negative mg/dL [facility] SPECIFIC GRAVITY UA (POCT) 1.025 1.005 - 1.030 [facility] UROBILINOGEN UA (POCT) 0.2 Christine l E.U./dL [facility] Location:[address], [place], [place], [address] [place] [address] POINT OF CARE [facility] UA DIP, URINE (POC)on 2023 BILIRUBIN UA (POCT) Negative Negative [facility] CLARITY UA (POCT) Cloudy [facility] COLOR UA (POCT) Yellow [facility] GLUCOSE UA (POCT) >=1000 Abnormal Negative mg/dL [facility] Hemoglobin Ql (U) Trace-intact Abnormal Negative [facility] Interpretation and review of laboratory results Abnormal [facility] KETONE UA (POCT) Negative Negative mg/dL [facility] LEUKOCYTES UA (POCT) Trace Abnormal Negative [facility] NITRITE UA (POCT) Positive Abnormal Negative [facility] PH UA (POCT) 5.5 4.5 - 8.0 [facility] Protein Ql (U) Trace Abnormal Negative mg/dL [facility] SPECIFIC GRAVITY UA (POCT) 1.020 1.005 - 1.030 [facility] UROBILINOGEN UA (POCT) 0.2 Christine l E.U./dL [facility] Location:[address], [place], [place], [address] [place] [address] POINT OF CARE [facility] XR Chest PA and Lateralon IMPRESSION: No acute radiographic abnormality. Job Cost Estimator: PSCB Transcribe Date/Time: Sep 04 2023 3:33P Dictated by : MCKENZIE CURTIS MD This examination was interpreted and the report reviewed and electronically signed by: MCKENZIE CURTIS MD on Sep 04 2023 3:33PM [facility] DIVISION OF RADIOLOGY * * *Final Report* [...] in the spine. DIVISION OF RADIOLOGY Provider, [facility] - 09/04/2023 * * *Final Report* * [...] spine. IMPRESSION IMPRESSION: No acute radiographic abnormality. Job Cost Estimator: JOHNIE Transcribe Date/Time: Sep 04 2023 3:33P Dictated by : MCKENZIE CURTIS MD This examination was interpreted and the report reviewed and electronically signed by: MCKENZIE CURTIS MD on Sep 04 2023 3:33PM EST [facility] Radiology Study observation (narrative) [facility] XR Chest PA and LateralOrder ed By: Ccf Provider on 09-04-2023 [facility] Glucose Glucometer (BldC) [M ass/Vol]Ordered By: Sho Yi on 08-06-2023 Glucose [Mass/Vol] 147 mg/dL 74-106 [facility] Comment on above: MANAGEMENT OF PATIEN T CARE PER NURSING PROTOCOL Absolute lymphocyte countOrd ered By: Leeanne Barron on 08-05-2023 Lymphocytes Auto (Unsp spec) [#/Vol] 4.42 10*3/uL 0.83-4.51 [facility] Basophil percentageOrdered B y: Leeanne Barron on 08-05-2023 Basophils/100 WBC (Bld) 0.4 % 0-1 [facility] Chloride [Moles/Vol] 110 mmol/L 98-107 [facility] Eosinophils/100 WBC (Bld) 1.2 % 0-5 [facility] Glucose [Mass/Vol] 130 mg/dL 74-106 [facility] Comment on above: Fasting Glucose resu lt greater than or equal to 126 mg/dL suggests DIABETES MELLITUS per A.D.A. criteria. Neutrophils (Bld) [#/Vol] 5.8 10*3/uL 2.0-7.7 [facility] Neutrophils/100 WBC (Bld) 51.7 % 47-70 [facility] Potassium [Moles/Vol] 3.7 mmol/L 3.5-5.1 [facility] Sodium [Moles/Vol] 142 mmol/L 136-145 [facility] WBC (Bld) [#/Vol] 11.3 10*3/uL 4.4-11.0 [facility] Blood erythrocytes count (nu mber/volume)Ordered By: Leeanne Barron on 08-05-2023 RBC (Bld) [#/Vol] 4.42 10*6/uL 4.2-5.4 [facility] Blood hemoglobin measurement (mass/volume)Ordered By: Leeanne Barron on 08-05-2023 Hemoglobin (Bld) [Mass/Vol] 13.5 g/dL 12.0-15.0 [facility] Blood lymphocytes/100 leukoc ytesOrdered By: Leeanne Barron on 08-05-2023 Lymphocytes/100 WBC (Bld) 39.3 % 19-41 [facility] Blood monocytes/100 leukocyt esOrdered By: Leeanne Barron on 08-05-2023 Monocytes/100 WBC (Bld) 7.0 % 0-10 [facility] Blood platelet mean volumeOr dered By: Leeanne Barron on 08-05-2023 Platelet mean volume (Bld) [Entitic vol] 8.8 fL 6.2-12.0 [facility] Determination of erythrocyte mean corpuscular volume (MCV)Ordered By: Leeanne Barron on 08-05-2023 MCV (RBC) [Entitic vol] 93.4 fL 81-99 [facility] Hematocrit Auto (Bld) [Volum e fraction]Ordered By: Leeanne Barron on 08-05-2023 Hematocrit (Bld) [Volume fraction] 41.3 % 37-47 [facility] Laboratory - Chemistry and C hemistry - challengeOrdered By: Leeanne Barron on 08-05-2023 CO2 [Moles/Vol] 27.0 mmol/L 21.0-32.0 [facility] Urea nitrogen/Creatinine [Mass ratio] 18.8 mg/mg 10-20 [facility] Laboratory - Hematology and Cell countsOrdered By: Leeanne Barron on 08-05-2023 Erythrocyte distribution width (RBC) [Entitic vol] 46.9 fL 35.1-43.9 [facility] Erythrocyte distribution width (RBC) [Ratio] 13.7 % 11.6-14.6 [facility] Immature granulocytes/100 WBC (Bld) 0.400 % 0.0-0.9 [facility] Comment on above: IG% - Immature Granu locytes (promyelocytes, myelocytes and metamyelocytes) > 1% indicates that a LEFT SHIFT is Present. MCH (RBC) [Entitic mass] 30.5 pg 27.0-32.0 [facility] Nucleated RBC/100 WBC (Bld) [Ratio] 0 % 0-5 [facility] MCHC Auto (RBC) [Mass/Vol]Or dered By: Leeanne Barron on 08-05-2023 MCHC (RBC) [Mass/Vol] 32.7 g/dL 32-36 [facility] No Panel InformationOrdered By: Leeanne Barron on 08-05-2023 Estimated Creatinine Clearance Calc 53.81 ml/min [facility] Estimated GFR (MDRD) Amer 120 mL/min >60 [facility] Comment on above: GFR Calc Estimated GFR (MDRD) Non-Af Amer 99 mL/min >60 [facility] Comment on above: Non- GFR Calc Platelets bldOrdered By: Octaviano Barron on 08-05-2023 Platelets (Bld) [#/Vol] 273 10*3/uL 150-450 [facility] Serum or plasma calcium maria elena urement (mass/volume)Ordered By: Leeanne Barron on 08-05-2023 Calcium [Mass/Vol] 8.4 mg/dL 8.5-10.1 [facility] Serum or plasma creatinine m easurement (mass/volume)Ordered By: Leeanne Barron on 08-05-2023 Creatinine [Mass/Vol] 0.64 mg/dL 0.55-1.02 [facility] Comment on above: The validity of the calculated GFR & GFRAA in patients over 70 years has not been determined. Clinical correlation is essential. Serum or plasma urea nitroge n measurement (mass/volume)Ordered By: Leeanne Barron on 08-05-2023 Urea nitrogen [Mass/Vol] 12 mg/dL 7-18 [facility] Thin prep Papanicolaou smear with manual screeningOrdered By: Leeanne Barron on 08-05-2023 Thin prep Papanicolaou smear with manual screening 5 5-15 [facility] Absolute lymphocyte countOrd ered By: Marylu Gillespie on 12-11-2023 Lymphocytes Auto (Unsp spec) [#/Vol] 3.10 10*3/uL 0.83-4.51 [facility] Basophil percentageOrdered B y: Marylu Gillespie on 08-04-2023 Basophils/100 WBC (Bld) 0.6 % 0-1 [facility] Chloride [Moles/Vol] 106 mmol/L 98-107 [facility] Eosinophils/100 WBC (Bld) 0.6 % 0-5 [facility] Glucose [Mass/Vol] 241 mg/dL 74-106 [facility] Comment on above: Glucose result great er than or equal to 200 mg/dLsuggests DIABETES MELLITUS per A.D.A. criteria. Neutrophils (Bld) [#/Vol] 9.9 10*3/uL 2.0-7.7 [facility] Neutrophils/100 WBC (Bld) 70.3 % 47-70 [facility] Potassium [Moles/Vol] 3.8 mmol/L 3.5-5.1 [facility] Sodium [Moles/Vol] 139 mmol/L 136-145 [facility] WBC (Bld) [#/Vol] 14.0 10*3/uL 4.4-11.0 [facility] Basophil percentage 10-25 SEEN /hpf 0-5 [facility] Bilirubin Test strip Ql (U)O rdered By: Marylu Gillespie on 08-04-2023 Bilirubin Ql (U) Negative Negative [facility] Blood erythrocytes count (nu mber/volume)Ordered By: Marylu Gillespie on 08-04-2023 RBC (Bld) [#/Vol] 5.08 10*6/uL 4.2-5.4 [facility] Blood hemoglobin measurement (mass/volume)Ordered By: Marylu Gillespie on 08-04-2023 Hemoglobin (Bld) [Mass/Vol] 14.9 g/dL 12.0-15.0 [facility] Blood lymphocytes/100 leukoc ytesOrdered By: Marylu Gillespie on 08-04-2023 Lymphocytes/100 WBC (Bld) 22.1 % 19-41 [facility] Blood monocytes/100 leukocyt esOrdered By: Marylu Gillespie on 08-04-2023 Monocytes/100 WBC (Bld) 5.9 % 0-10 [facility] Blood platelet mean volumeOr dered By: Marylu Gillespie on 08-04-2023 Platelet mean volume (Bld) [Entitic vol] 8.8 fL 6.2-12.0 [facility] Determination of erythrocyte mean corpuscular volume (MCV)Ordered By: Marylu Gillespie on 08-04-2023 MCV (RBC) [Entitic vol] 92.1 fL 81-99 [facility] Glucose Glucometer (BldC) [M ass/Vol]Ordered By: Leeanne Barron on 08-04-2023 Glucose [Mass/Vol] 121 mg/dL 74-106 [facility] Comment on above: MANAGEMENT OF PATIEN T CARE PER NURSING PROTOCOL Hematocrit Auto (Bld) [Volum e fraction]Ordered By: Marylu Gillespie on 08-04-2023 Hematocrit (Bld) [Volume fraction] 46.8 % 37-47 [facility] Ketones Test strip Ql (U)Ord ered By: Marylu Gillespie on 08-04-2023 Ketones Ql (U) 5 mg/dl Negative [facility] Laboratory - Chemistry and C hemistry - challengeOrdered By: Marylu Gillespie on 08-04-2023 CO2 [Moles/Vol] 24.0 mmol/L 21.0-32.0 [facility] Urea nitrogen/Creatinine [Mass ratio] 12.8 mg/mg 10-20 [facility] Laboratory - Hematology and Cell countsOrdered By: Marylu Gillespie on 08-04-2023 Erythrocyte distribution width (RBC) [Entitic vol] 45.5 fL 35.1-43.9 [facility] Erythrocyte distribution width (RBC) [Ratio] 13.4 % 11.6-14.6 [facility] Immature granulocytes/100 WBC (Bld) 0.500 % 0.0-0.9 [facility] Comment on above: IG% - Immature Granu locytes (promyelocytes, myelocytes and metamyelocytes) > 1% indicates that a LEFT SHIFT is Present. MCH (RBC) [Entitic mass] 29.3 pg 27.0-32.0 [facility] Nucleated RBC/100 WBC (Bld) [Ratio] 0 % 0-5 [facility] MCHC Auto (RBC) [Mass/Vol]Or dered By: Marylu Gillespie on 08-04-2023 MCHC (RBC) [Mass/Vol] 31.8 g/dL 32-36 [facility] Mucus LM Ql (Urine sed)Order ed By: Marylu Gillespie on 08-04-2023 Mucus Ql (Urine sed) 0 SEEN /hpf [facility] Nitrite Test strip Ql (U)Ord ered By: Marylu Gillespie on 08-04-2023 Nitrite Ql (U) Positive Negative [facility] No Panel InformationOrdered By: Marylu Gillespie on 08-04-2023 Estimated Creatinine Clearance Calc 53.81 ml/min [facility] Estimated GFR (MDRD) Amer 95 mL/min >60 [facility] Comment on above: GFR Calc Estimated GFR (MDRD) Non-Af Amer 78 mL/min >60 [facility] Comment on above: Non- GFR Calc Platelets bldOrdered By: Lorrie Gillespie on 08-04-2023 Platelets (Bld) [#/Vol] 327 10*3/uL 150-450 [facility] Protein Test strip Ql (U)Ord ered By: Marylu Gillespie on 08-04-2023 Protein Ql (U) 30 mg/dl Negative [facility] Serum or plasma calcium maria elena urement (mass/volume)Ordered By: Marylu Gillespie on 08-04-2023 Calcium [Mass/Vol] 9.2 mg/dL 8.5-10.1 [facility] Serum or plasma creatinine m easurement (mass/volume)Ordered By: Marylu Gillespie on 08-04-2023 Creatinine [Mass/Vol] 0.78 mg/dL 0.55-1.02 [facility] Comment on above: The validity of the calculated GFR & GFRAA in patients over 70 years has not been determined. Clinical correlation is essential. Serum or plasma urea nitroge n measurement (mass/volume)Ordered By: Marylu Gillespie on 08-04-2023 Urea nitrogen [Mass/Vol] 10 mg/dL 7-18 [facility] Squamous epithelial cells de tection in urine sediment by light microscopyOrdered By: Marylu Gillespie on 08-04-2023 Epithelial cells.squamous LM Ql (Urine sed) 0-5 SEEN /hpf 5-10 [facility] Thin prep Papanicolaou smear with manual screeningOrdered By: Marylu Gillespie on 08-04-2023 Thin prep Papanicolaou smear with manual screening 9 -15 [facility] Urine blood detectionOrdered By: Marylu Gillespie on 08-04-2023 RBC Ql (U) 25 /ul Negative [facility] RBC Ql (U) 0 SEEN /hpf 0-5 [facility] Urine clarityOrdered By: Lorrie Gillespie on 08-04-2023 Clarity (U) Clear Clear [facility] Urine color determinationOrd ered By: Marylu Gillespie on 08-04-2023 Color (U) Yellow Yellow [facility] Urine glucose detectionOrder ed By: Marylu Gillespie on 08-04-2023 Glucose Ql (U) Normal mg/dl Normal [facility] Urine leukocyte esterase det ection by dipstickOrdered By: Marylu Gillespie on 08-04-2023 Leukocyte esterase Test strip Ql (U) 500 /ul Negative [facility] Urine pHOrdered By: Marylu ontiveros on 08-04-2023 pH (U) 5.0 [pH] 5.0 - 8.0 [facility] Urine sediment bacteria coun t by microscopy (number/high power field)Ordered By: Marylu Gillespie on 08-04-2023 Bacteria LM.HPF (Urine sed) [#/Area] RARE /hpf None Seen [facility] Urine specific gravity measu rementOrdered By: Marylu Gillespie on 08-04-2023 Specific gravity (U) [Rel density] 1.020 1.002-1.030 [facility] Urobilinogen Auto test strip Ql (U)Ordered By: Marylu Gillespie on 08-04-2023 Urobilinogen Ql (U) Normal mg/dl Normal [facility] GLUCOSE, BLOOD (POC)on 07-09 Glucose [Mass/Vol] 302 mg/dL Abnormal 74 - 99 mg/dL [facility] UA DIP, URINE (POC)on 2022 BILIRUBIN UA (POCT) Negative Negative [facility] CLARITY UA (POCT) Clear [facility] COLOR UA (POCT) Yellow [facility] GLUCOSE UA (POCT) >=1000 Abnormal Negative mg/dL [facility] Hemoglobin Ql (U) Trace-intact Abnormal Negative [facility] KETONE UA (POCT) Negative Negative mg/dL [facility] LEUKOCYTES UA (POCT) Negative Negative [facility] NITRITE UA (POCT) Negative Negative [facility] PH UA (POCT) 5.5 4.5 - 8.0 [facility] Protein Ql (U) Negative Negative mg/dL [facility] SPECIFIC GRAVITY UA (POCT) 1.015 1.005 - 1.030 [facility] UROBILINOGEN UA (POCT) 0.2 E.U./dL Christine l E.U./dL [facility] ALBUMIN/CREAT RATIO RND URon 04-16-2023 Albumin DL <= 20 mg/L (U) [Mass/Vol] 50.8 mg/L [facility] Albumin/Creatinine (U) [Mass ratio] 17 mg/g <30 mg/g [facility] Creatinine (U) [Mass/Vol] 298.5 mg/dL 20.0 - 300.0 mg/dL [facility] PTH INTACT BLDon 04-16-2023 Parathyrin.intact [Mass/Vol] 42 pg/mL 15 - 65 pg/mL [facility] CBC W Auto Differential pane l (Bld)on 04-15-2023 Basophils (Bld) [#/Vol] 0.08 10*3/uL <0.11 k/uL [facility] Basophils/100 WBC (Bld) 0.5 % C [facility] Differential cell count method Nom (Bld) Auto [facility] Eosinophils (Bld) [#/Vol] 0.12 10*3/uL <0.46 k/uL [facility] Eosinophils/100 WBC (Bld) 0.7 % [facility] Erythrocyte distribution width (RBC) [Ratio] 13.7 % 11.5 - 15.0 % [facility] Hematocrit (Bld) [Volume fraction] 49.5 % High 36.0 - 46.0 % [facility] Hemoglobin (Bld) [Mass/Vol] 16.4 g/dL High 11.5 - 15.5 g/dL [facility] Immature granulocytes (Bld) [#/Vol] 0.07 10*3/uL <0.10 k/uL [facility] Immature granulocytes/100 WBC (Bld) 0.4 % [facility] Lymphocytes (Bld) [#/Vol] 4.89 10*3/uL High 1.00 - 4.00 k/uL [facility] Lymphocytes/100 WBC (Bld) 30.0 % [facility] MCH (RBC) [Entitic mass] 30.1 pg 26. 0 - 34.0 pg [facility] MCHC (RBC) [Mass/Vol] 33.1 g/dL 30.5 - 36.0 g/dL [facility] MCV (RBC) [Entitic vol] 91.0 fL 80.0 - 100.0 fL [facility] Monocytes (Bld) [#/Vol] 1.02 10*3/uL High <0.87 k/uL [facility] Monocytes/100 WBC (Bld) 6.3 % C [facility] Neutrophils (Bld) [#/Vol] 10.10 10*3/uL High 1.45 - 7.50 k/uL [facility] Neutrophils/100 WBC (Bld) 62.1 % [facility] Nucleated RBC (Bld) [#/Vol] <0.01 k/uL [facility] Nucleated RBC/100 WBC (Bld) [Ratio] 0.0 /100 WBC [facility] Platelet mean volume (Bld) [Entitic vol] 9.6 fL 9.0 - 12.7 fL [facility] Platelets (Bld) [#/Vol] 438 10*3/uL High 150 - 400 k/uL [facility] RBC (Bld) [#/Vol] 5.44 10*6/uL High 3.90 - 5.2 0 m/uL [facility] WBC (Bld) [#/Vol] 16.28 10*3/uL High 3.70 - 11 .00 k/uL [facility] HbA1c (Bld)on 04-15-2023 Average glucose Estimated from glycated hemoglobin (Bld) [Mass/Vol] 154 mg/dL [facility] HbA1c (Bld) [Mass fraction] 7.0 % High 4.3 - 5.6 % [facility] Urinalysis complete panel (U )on 04-15-2023 Bacteria LM.HPF (Urine sed) [#/Area] Rare Abnormal None Seen /HPF [facility] Bilirubin Ql (U) Negative Negative [facility] Clarity (Unsp spec) Clear Clear [facility] Color (U) Yellow Yellow [facility] Epithelial cells LM.HPF (Urine sed) [#/Area] Few [facility] Glucose Test strip (U) [Mass/Vol] Trace Trace, Negative [facility] Hemoglobin Ql (U) Negative Negative, Trace [facility] Hyaline casts (Urine sed) [#/Area] /[LPF] Abnormal 0 /LPF [facility] Ketones Ql (U) Negative Trace, Negative [facility] Leukocyte esterase Test strip Ql (U) 75 Meng/uL Abnormal Negative, 25 Meng/uL [facility] Nitrite Ql (U) 2+ Abnormal Negative [facility] pH (U) 5.5 [pH] 5.0 - 8.0 [facility] Protein (U) [Mass/Vol] 1+ Abnormal Trace , Negative [facility] RBC LM.HPF (Urine sed) [#/Area] 0-3 /HPF 0-3 /HPF [facility] Specific gravity (U) [Rel density] 1.027 1.005 - 1.030 [facility] Urobilinogen Ql (U) Negative Negative [facility] WBC LM.HPF (Urine sed) [#/Area] 11-25 /HPF Abnormal 0-5 /HPF [facility] Absolute lymphocyte countOrd ered By: Carter Martinez on 11-14-2022 Lymphocytes Auto (Unsp spec) [#/Vol] 3.89 10*3/uL 0.83-4.51 [facility] Basophil percentageOrdered B y: Carter Martinez on 11-14-2022 Basophil percentage 0-5 SEEN /hpf 0-5 [facility] Basophils/100 WBC (Bld) 0.5 % 0-1 [facility] Chloride [Moles/Vol] 105 mmol/L 98-107 [facility] Eosinophils/100 WBC (Bld) 0.6 % 0-5 [facility] Glucose [Mass/Vol] 188 mg/dL 74-106 [facility] Comment on above: Fasting Glucose resu lt greater than or equal to 126 mg/dL suggests DIABETES MELLITUS per A.D.A. criteria. Neutrophils (Bld) [#/Vol] 10.0 10*3/uL 2.0-7.7 [facility] Neutrophils/100 WBC (Bld) 66.6 % 47-70 [facility] Potassium [Moles/Vol] 3.7 mmol/L 3.5-5.1 [facility] Sodium [Moles/Vol] 141 mmol/L 136-145 [facility] WBC (Bld) [#/Vol] 15.0 10*3/uL 4.4-11.0 [facility] Bilirubin Test strip Ql (U)O rdered By: Carter Martinez on 11-14-2022 Bilirubin Ql (U) Negative Negative [facility] Blood erythrocytes count (nu mber/volume)Ordered By: Carter Martinez on 11-14-2022 RBC (Bld) [#/Vol] 5.11 10*6/uL 4.2-5.4 [facility] Blood hemoglobin measurement (mass/volume)Ordered By: Carter Martinez on 11-14-2022 Hemoglobin (Bld) [Mass/Vol] 15.1 g/dL 12.0-15.0 [facility] Blood lymphocytes/100 leukoc ytesOrdered By: Carter Martinez on 11-14-2022 Lymphocytes/100 WBC (Bld) 25.9 % 19-41 [facility] Blood monocytes/100 leukocyt esOrdered By: Carter Martinez on 11-14-2022 Monocytes/100 WBC (Bld) 5.9 % 0-10 [facility] Blood platelet mean volumeOr dered By: Carter Martinez on 11-14-2022 Platelet mean volume (Bld) [Entitic vol] 8.4 fL 6.2-12.0 [facility] Determination of erythrocyte mean corpuscular volume (MCV)Ordered By: Carter Martinez on 11-14-2022 MCV (RBC) [Entitic vol] 91.8 fL 81-99 [facility] Hematocrit Auto (Bld) [Volum e fraction]Ordered By: Carter Martinez on 11-14-2022 Hematocrit (Bld) [Volume fraction] 46.9 % 37-47 [facility] Influenza virus A and B and SARS-CoV-2 (COVID-19) Ag panel - Upper respiratory specimOrdered By: Carter Martinez on 11-14-2022 SARS-CoV-2 (COVID-19) RNA CONNOR+probe Ql (Resp) [facility] Ketones Test strip Ql (U)Ord ered By: Carter Martinez on 11-14-2022 Ketones Ql (U) 5 mg/dl Negative [facility] Laboratory - Chemistry and C hemistry - challengeOrdered By: Carter Martinez on 11-14-2022 CO2 [Moles/Vol] 26.0 mmol/L 21.0-32.0 [facility] Urea nitrogen/Creatinine [Mass ratio] 7.0 mg/mg 10-20 [facility] Laboratory - Hematology and Cell countsOrdered By: Carter Martinez on 11-14-2022 Erythrocyte distribution width (RBC) [Entitic vol] 45.8 fL 35.1-43.9 [facility] Erythrocyte distribution width (RBC) [Ratio] 13.5 % 11.6-14.6 [facility] Immature granulocytes/100 WBC (Bld) 0.500 % 0.0-0.9 [facility] Comment on above: IG% - Immature Granu locytes (promyelocytes, myelocytes and metamyelocytes) > 1% indicates that a LEFT SHIFT is Present. MCH (RBC) [Entitic mass] 29.5 pg 27.0-32.0 [facility] Nucleated RBC/100 WBC (Bld) [Ratio] 0 % 0-5 [facility] MCHC Auto (RBC) [Mass/Vol]Or dered By: Carter Martinez on 11-14-2022 MCHC (RBC) [Mass/Vol] 32.2 g/dL 32-36 [facility] Mucus LM Ql (Urine sed)Order ed By: Carter Martinez on 11-14-2022 Mucus Ql (Urine sed) 0 SEEN /hpf [facility] Nitrite Test strip Ql (U)Ord ered By: Carter Martinez on 11-14-2022 Nitrite Ql (U) Negative Negative [facility] No Panel InformationOrdered By: Carter Martinez on 11-14-2022 Estimated Creatinine Clearance Calc 75.75 ml/min [facility] Estimated GFR (MDRD) Amer 105 mL/min >60 [facility] Comment on above: GFR Calc Estimated GFR (MDRD) Non-Af Amer 86 mL/min >60 [facility] Comment on above: Non- GFR Calc Platelets bldOrdered By: Isabella Martinez on 11-14-2022 Platelets (Bld) [#/Vol] 341 10*3/uL 150-450 [facility] Protein Test strip Ql (U)Ord ered By: Carter Martinez on 11-14-2022 Protein Ql (U) Negative Negative [facility] Serum or plasma calcium maria elena urement (mass/volume)Ordered By: Carter Martinez on 11-14-2022 Calcium [Mass/Vol] 9.1 mg/dL 8.5-10.1 [facility] Serum or plasma creatinine m easurement (mass/volume)Ordered By: Carter Martinez on 11-14-2022 Creatinine [Mass/Vol] 0.72 mg/dL 0.55-1.02 [facility] Comment on above: The validity of the calculated GFR & GFRAA in patients over 70 years has not been determined. Clinical correlation is essential. Serum or plasma urea nitroge n measurement (mass/volume)Ordered By: Carter Martinez on 11-14-2022 Urea nitrogen [Mass/Vol] 5 mg/dL 7-18 [facility] Squamous epithelial cells de tection in urine sediment by light microscopyOrdered By: Carter Martinez on 11-14-2022 Epithelial cells.squamous LM Ql (Urine sed) 0 SEEN /hpf 5-10 [facility] Thin prep Papanicolaou smear with manual screeningOrdered By: Carter Martinez on 11-14-2022 Thin prep Papanicolaou smear with manual screening 10 5-15 [facility] Urine blood detectionOrdered By: Carter Martinez on 11-14-2022 RBC Ql (U) Negative Negative [facility] RBC Ql (U) 0 SEEN /hpf 0-5 [facility] Urine clarityOrdered By: Isabella Martinez on 11-14-2022 Clarity (U) Clear Clear [facility] Urine color determinationOrd ered By: Carter Martinez on 11-14-2022 Color (U) Yellow Yellow [facility] Urine glucose detectionOrder ed By: Carter Martinez on 11-14-2022 Glucose Ql (U) Normal mg/dl Normal [facility] Urine leukocyte esterase det ection by dipstickOrdered By: Carter Martinez on 11-14-2022 Leukocyte esterase Test strip Ql (U) Negative Negative [facility] Urine pHOrdered By: Carter valle on 11-14-2022 pH (U) 7.0 [pH] 5.0 - 8.0 [facility] Urine sediment bacteria coun t by microscopy (number/high power field)Ordered By: Carter Martinez on 11-14-2022 Bacteria LM.HPF (Urine sed) [#/Area] 1 /[HPF] None Seen [facility] Urine specific gravity measu rementOrdered By: Carter Martinez on 11-14-2022 Specific gravity (U) [Rel density] 1.010 1.002-1.030 [facility] Urobilinogen Auto test strip Ql (U)Ordered By: Carter Martinez on 11-14-2022 Urobilinogen Ql (U) Normal mg/dl Normal [facility] Glucose Glucometer (BldC) [M ass/Vol]on 06-12-2022 Glucose [Mass/Vol] 291 mg/dL 74-106 [facility] Work Phone: Comment on above: MANAGEMENT OF PATIEN T CARE PER NURSING PROTOCOL Basophil percentageon 2021 Bilirubin [Mass/Vol] 0.50 mg/dL 0.20-1.00 [facility] Work Phone: Comment on above: For patients on eltr ombopag therapy, use of Dimension [place] TBIL is not recommended. Chloride [Moles/Vol] 107 mmol/L 98-107 [facility] Work Phone: Glucose [Mass/Vol] 281 mg/dL 74-106 [facility] Work Phone: Comment on above: Glucose result great er than or equal to 200 mg/dLsuggests DIABETES MELLITUS per A.D.A. criteria. Potassium [Moles/Vol] 3.6 mmol/L 3.5-5.1 [facility] Work Phone: Protein [Mass/Vol] 6.8 g/dL 6.4-8.2 [facility] Work Phone: Sodium [Moles/Vol] 140 mmol/L 136-145 [facility] Work Phone: WBC (Bld) [#/Vol] 11.1 10*3/uL 4.4-11.0 [facility] Work Phone: Blood erythrocytes count (nu mber/volume)on 05-10-2022 RBC (Bld) [#/Vol] 4.51 10*6/uL 4.2-5.4 [facility] Work Phone: [phone] Blood hemoglobin measurement (mass/volume)on 05-10-2022 Hemoglobin (Bld) [Mass/Vol] 13.6 g/dL 12.0-15.0 [facility] Work Phone: [phone] Blood platelet mean volumeon 05-10-2022 Platelet mean volume (Bld) [Entitic vol] 9.0 fL 6.2-12.0 [facility] Work Phone: [phone] Determination of erythrocyte mean corpuscular volume (MCV)on 05-10-2022 MCV (RBC) [Entitic vol] 90.7 fL 81-99 [facility] Work Phone: Direct bilirubinon Bilirubin.direct [Mass/Vol] 0.15 mg/dL 0.00-0.30 [facility] Work Phone: [phone] Hematocrit Auto (Bld) [Volum e fraction]on 05-10-2022 Hematocrit (Bld) [Volume fraction] 40.9 % 37-47 [facility] Work Phone: Laboratory - Chemistry and C hemistry - challengeon 05-10-2022 ALP [Catalytic activity/Vol] 76 U/L 45-117 [facility] Work Phone: ALT [Catalytic activity/Vol] 19 U/L 13-56 [facility] Work Phone: [phone] CO2 [Moles/Vol] 24.0 mmol/L 21.0-32.0 [facility] Work Phone: [phone] Globulin (S) [Mass/Vol] 3.5 g/dL 2.2-4.2 [facility] Work Phone: Urea nitrogen/Creatinine [Mass ratio] 6.4 mg/mg 10-20 [facility] Work Phone: Laboratory - Hematology and Cell countson 05-10-2022 Erythrocyte distribution width (RBC) [Entitic vol] 46.0 fL 35.1-43.9 [facility] Work Phone: Erythrocyte distribution width (RBC) [Ratio] 13.8 % 11.6-14.6 [facility] Work Phone: MCH (RBC) [Entitic mass] 30.2 pg 27.0-32.0 [facility] Work Phone: MCHC Auto (RBC) [Mass/Vol]on 05-10-2022 MCHC (RBC) [Mass/Vol] 33.3 g/dL 32-36 [facility] Work Phone: No Panel Informationon 05-10 Estimated GFR (MDRD) Amer 96 mL/min >60 [facility] Work Phone: Comment on above: GFR Calc Estimated GFR (MDRD) Non-Af Amer 79 mL/min >60 [facility] Work Phone: Comment on above: Non- GFR Calc Platelets bldon 05-10-2022 Platelets (Bld) [#/Vol] 288 10*3/uL 150-450 [facility] Work Phone: Serum or plasma albumin maria elena urement (mass/volume)on 05-10-2022 Albumin [Mass/Vol] 3.3 g/dL 3.2-5.0 [facility] Work Phone: Serum or plasma calcium maria elena urement (mass/volume)on 05-10-2022 Calcium [Mass/Vol] 9.0 mg/dL 8.5-10.1 [facility] Work Phone: Serum or plasma creatinine m easurement (mass/volume)on 05-10-2022 Creatinine [Mass/Vol] 0.78 mg/dL 0.55-1.02 [facility] Work Phone: Comment on above: The validity of the calculated GFR & GFRAA in patients over 70 years has not been determined. Clinical correlation is essential. Serum or plasma urea nitroge n measurement (mass/volume)on 05-10-2022 Urea nitrogen [Mass/Vol] 5 mg/dL 7-18 [facility] Work Phone: Thin prep Papanicolaou smear with manual screeningon 05-10-2022 Thin prep Papanicolaou smear with manual screening 16 U/L 15-37 [facility] Work Phone: Thin prep Papanicolaou smear with manual screening 9 5-15 [facility] Work Phone: Absolute lymphocyte counton 05-03-2022 Lymphocytes Auto (Unsp spec) [#/Vol] 3.33 10*3/uL 0.83-4.51 [facility] Work Phone: Basophil percentageon 2021 Basophils/100 WBC (Bld) 0.5 % 0-1 [facility] Work Phone: Chloride [Moles/Vol] 109 mmol/L 98-107 [facility] Work Phone: Eosinophils/100 WBC (Bld) 2.2 % 0-5 [facility] Work Phone: Glucose [Mass/Vol] 202 mg/dL 74-106 [facility] Work Phone: Comment on above: Glucose result great er than or equal to 200 mg/dLsuggests DIABETES MELLITUS per A.D.A. criteria. Neutrophils (Bld) [#/Vol] 5.0 10*3/uL 2.0-7.7 [facility] Work Phone: Neutrophils/100 WBC (Bld) 53.9 % 47-70 [facility] Work Phone: Potassium [Moles/Vol] 4.2 mmol/L 3.5-5.1 [facility] Work Phone: Sodium [Moles/Vol] 139 mmol/L 136-145 [facility] Work Phone: WBC (Bld) [#/Vol] 9.2 10*3/uL 4.4-11.0 [facility] Work Phone: Blood erythrocytes count (nu mber/volume)on 05-03-2022 RBC (Bld) [#/Vol] 4.39 10*6/uL 4.2-5.4 [facility] Work Phone: Blood hemoglobin measurement (mass/volume)on 05-03-2022 Hemoglobin (Bld) [Mass/Vol] 13.2 g/dL 12.0-15.0 [facility] Work Phone: Blood lymphocytes/100 leukoc yteson 05-03-2022 Lymphocytes/100 WBC (Bld) 36.2 % 19-41 [facility] Work Phone: Blood monocytes/100 leukocyt eson 05-03-2022 Monocytes/100 WBC (Bld) 6.4 % 0-10 [facility] Work Phone: Blood platelet mean volumeon 05-03-2022 Platelet mean volume (Bld) [Entitic vol] 8.7 fL 6.2-12.0 [facility] Work Phone: Determination of erythrocyte mean corpuscular volume (MCV)on 05-03-2022 MCV (RBC) [Entitic vol] 92.5 fL 81-99 [facility] Work Phone: Glucose Glucometer (BldC) [M ass/Vol]on 05-03-2022 Glucose [Mass/Vol] 270 mg/dL 74-106 [facility] Work Phone: Comment on above: MANAGEMENT OF PATIEN T CARE PER NURSING PROTOCOL Hematocrit Auto (Bld) [Volum e fraction]on 05-03-2022 Hematocrit (Bld) [Volume fraction] 40.6 % 37-47 [facility] Work Phone: Laboratory - Chemistry and C hemistry - challengeon 05-03-2022 CO2 [Moles/Vol] 25.0 mmol/L 21.0-32.0 [facility] Work Phone: [phone] Urea nitrogen/Creatinine [Mass ratio] 15.4 mg/mg 10-20 [facility] Work Phone: [phone] Laboratory - Hematology and Cell countson 05-03-2022 Erythrocyte distribution width (RBC) [Entitic vol] 44.6 fL 35.1-43.9 [facility] Work Phone: [phone] Erythrocyte distribution width (RBC) [Ratio] 13.2 % 11.6-14.6 [facility] Work Phone: [phone] Immature granulocytes/100 WBC (Bld) 0.800 % 0.0-0.9 [facility] Work Phone: [phone] Comment on above: IG% - Immature Granu locytes (promyelocytes, myelocytes and metamyelocytes) > 1% indicates that a LEFT SHIFT is Present. MCH (RBC) [Entitic mass] 30.1 pg 27.0-32.0 [facility] Work Phone: [phone] Nucleated RBC/100 WBC (Bld) [Ratio] 0 % 0-5 [facility] Work Phone: [phone] MCHC Auto (RBC) [Mass/Vol]on 05-03-2022 MCHC (RBC) [Mass/Vol] 32.5 g/dL 32-36 [facility] Work Phone: [phone] No Panel Informationon 05-03 Estimated Creatinine Clearance Calc 90.53 ml/min [facility] Work Phone: [phone] Estimated GFR (MDRD) Amer 133 mL/min >60 [facility] Work Phone: [phone] Comment on above: GFR Calc Estimated GFR (MDRD) Non-Af Amer 110 mL/min >60 [facility] Work Phone: [phone] Comment on above: Non- GFR Calc Platelets bldon 05-03-2022 Platelets (Bld) [#/Vol] 256 10*3/uL 150-450 [facility] Work Phone: [phone] Serum or plasma calcium maria elena urement (mass/volume)on 05-03-2022 Calcium [Mass/Vol] 8.2 mg/dL 8.5-10.1 [facility] Work Phone: Serum or plasma creatinine m easurement (mass/volume)on 05-03-2022 Creatinine [Mass/Vol] 0.58 mg/dL 0.55-1.02 [facility] Work Phone: Comment on above: The validity of the calculated GFR & GFRAA in patients over 70 years has not been determined. Clinical correlation is essential. Serum or plasma urea nitroge n measurement (mass/volume)on 05-03-2022 Urea nitrogen [Mass/Vol] 9 mg/dL 7-18 [facility] Work Phone: Thin prep Papanicolaou smear with manual screeningon 05-03-2022 Thin prep Papanicolaou smear with manual screening 5 5-15 [facility] Work Phone: Basophil percentageon 2021 Lactate [Moles/Vol] 2.5 mmol/L 0.4-2.0 [facility] Work Phone: Comment on above: Critical Result(s) C alled at: 04:42:09 05/01/2022 by: EMILIA Kim RN MS3. Results read back by same. Absolute lymphocyte counton 04-30-2022 Lymphocytes Auto (Unsp spec) [#/Vol] 3.67 10*3/uL 0.83-4.51 [facility] Work Phone: Basophil percentageon 2021 Basophil percentage 10-25 SEEN /hpf 0-5 [facility] Work Phone: Lactate [Moles/Vol] 3.4 mmol/L 0.4-2.0 [facility] Work Phone: Comment on above: Critical Result(s) C alled at: 23:29:24 04/30/2022 by: Alex Arteaga RN (ER). Results read back by same. Basophils/100 WBC (Bld) 0.4 % 0-1 [facility] Work Phone: [phone] Bilirubin [Mass/Vol] 0.50 mg/dL 0.20-1.00 [facility] Work Phone: [phone] Comment on above: For patients on eltr ombopag therapy, use of Dimension [place] TBIL is not recommended. Chloride [Moles/Vol] 104 mmol/L 98-107 [facility] Work Phone: [phone] Eosinophils/100 WBC (Bld) 1.2 % 0-5 [facility] Work Phone: [phone] Glucose [Mass/Vol] 359 mg/dL 74-106 [facility] Work Phone: Comment on above: Glucose result great er than or equal to 200 mg/dLsuggests DIABETES MELLITUS per A.D.A. criteria. Neutrophils (Bld) [#/Vol] 5.6 10*3/uL 2.0-7.7 [facility] Work Phone: [phone] Neutrophils/100 WBC (Bld) 54.5 % 47-70 [facility] Work Phone: [phone] Potassium [Moles/Vol] 3.8 mmol/L 3.5-5.1 [facility] Work Phone: [phone] Comment on above: Moderate Hemolysis, Result may be falsely increased. Protein [Mass/Vol] 6.4 g/dL 6.4-8.2 [facility] Work Phone: [phone] Sodium [Moles/Vol] 139 mmol/L 136-145 [facility] Work Phone: [phone] WBC (Bld) [#/Vol] 10.3 10*3/uL 4.4-11.0 [facility] Work Phone: [phone] Bilirubin Test strip Ql (U)o n 04-30-2022 Bilirubin Ql (U) Negative Negative [facility] Work Phone: [phone] Blood erythrocytes count (nu mber/volume)on 04-30-2022 RBC (Bld) [#/Vol] 4.63 10*6/uL 4.2-5.4 [facility] Work Phone: Blood hemoglobin measurement (mass/volume)on 04-30-2022 Hemoglobin (Bld) [Mass/Vol] 13.7 g/dL 12.0-15.0 [facility] Work Phone: Blood lymphocytes/100 leukoc yteson 04-30-2022 Lymphocytes/100 WBC (Bld) 35.7 % 19-41 [facility] Work Phone: [phone] Blood monocytes/100 leukocyt eson 04-30-2022 Monocytes/100 WBC (Bld) 7.8 % 0-10 [facility] Work Phone: [phone] Blood platelet mean volumeon 04-30-2022 Platelet mean volume (Bld) [Entitic vol] 9.5 fL 6.2-12.0 [facility] Work Phone: [phone] Determination of erythrocyte mean corpuscular volume (MCV)on 04-30-2022 MCV (RBC) [Entitic vol] 90.7 fL 81-99 [facility] Work Phone: [phone] Hematocrit Auto (Bld) [Volum e fraction]on 04-30-2022 Hematocrit (Bld) [Volume fraction] 42.0 % 37-47 [facility] Work Phone: INR in Blood by Coagulation assayon 04-30-2022 INR Coag (Bld) [Relative time] 1.0 {INR} [facility] Work Phone: [phone] Ketones Test strip Ql (U)on 04-30-2022 Ketones Ql (U) 15 mg/dl Negative [facility] Work Phone: Laboratory - Chemistry and C hemistry - challengeon 04-30-2022 ALP [Catalytic activity/Vol] 76 U/L 45-117 [facility] Work Phone: ALT [Catalytic activity/Vol] 34 U/L 13-56 [facility] Work Phone: [phone] CO2 [Moles/Vol] 25.0 mmol/L 21.0-32.0 [facility] Work Phone: Globulin (S) [Mass/Vol] 3.6 g/dL 2.2-4.2 [facility] Work Phone: [phone] Urea nitrogen/Creatinine [Mass ratio] 9.6 mg/mg 10-20 [facility] Work Phone: [phone] Laboratory - Coagulationon 0 04-30-2022 aPTT Coag (Bld) [Time] 28.3 s 24.1-36.2 Wo nati [facility] Work Phone: [phone] PT Coag (PPP) [Time] 12.9 s 11.7-14.9 [facility] Work Phone: Laboratory - Hematology and Cell countson 04-30-2022 Erythrocyte distribution width (RBC) [Entitic vol] 44.7 fL 35.1-43.9 [facility] Work Phone: [phone] Erythrocyte distribution width (RBC) [Ratio] 13.4 % 11.6-14.6 [facility] Work Phone: Immature granulocytes/100 WBC (Bld) 0.400 % 0.0-0.9 [facility] Work Phone: Comment on above: IG% - Immature Granu locytes (promyelocytes, myelocytes and metamyelocytes) > 1% indicates that a LEFT SHIFT is Present. MCH (RBC) [Entitic mass] 29.6 pg 27.0-32.0 [facility] Work Phone: Nucleated RBC/100 WBC (Bld) [Ratio] 0 % 0-5 [facility] Work Phone: [phone] MCHC Auto (RBC) [Mass/Vol]on 04-30-2022 MCHC (RBC) [Mass/Vol] 32.6 g/dL 32-36 [facility] Work Phone: Mucus LM Ql (Urine sed)on Mucus Ql (Urine sed) 0 SEEN /hpf [facility] Work Phone: [phone] Nitrite Test strip Ql (U)on 04-30-2022 Nitrite Ql (U) Positive Negative [facility] Work Phone: No Panel Informationon 04-30 Estimated Creatinine Clearance Calc 58.02 ml/min [facility] Work Phone: [phone] Estimated GFR (MDRD) Amer 77 mL/min >60 [facility] Work Phone: [phone] Comment on above: GFR Calc Estimated GFR (MDRD) Non-Af Amer 63 mL/min >60 [facility] Work Phone: Comment on above: Non- GFR Calc Troponin I High Sensitivity 12 pg/mL 3.0-54.0 [facility] Work Phone: Comment on above: Please Note: New Jesusita t Units and Gender Specific Reference Ranges. For more information see Policy Stat Procedure [place] High Sensitivity Troponin (TNIH) and attachments. Platelets bldon 04-30-2022 Platelets (Bld) [#/Vol] 275 10*3/uL 150-450 [facility] Work Phone: [phone] Protein Test strip Ql (U)on 04-30-2022 Protein Ql (U) 15 mg/dl Negative [facility] Work Phone: [phone] Serum or plasma albumin maria elena urement (mass/volume)on 04-30-2022 Albumin [Mass/Vol] 2.8 g/dL 3.2-5.0 [facility] Work Phone: [phone] Serum or plasma albumin/glob ulin mass ratioon 04-30-2022 Albumin/Globulin [Mass ratio] 0.8 {ratio} 0.9-2.4 [facility] Work Phone: [phone] Serum or plasma calcium maria elena urement (mass/volume)on 04-30-2022 Calcium [Mass/Vol] 9.4 mg/dL 8.5-10.1 [facility] Work Phone: [phone] Serum or plasma creatinine m easurement (mass/volume)on 04-30-2022 Creatinine [Mass/Vol] 0.94 mg/dL 0.55-1.02 [facility] Work Phone: Comment on above: The validity of the calculated GFR & GFRAA in patients over 70 years has not been determined. Clinical correlation is essential. Serum or plasma urea nitroge n measurement (mass/volume)on 04-30-2022 Urea nitrogen [Mass/Vol] 9 mg/dL 7-18 [facility] Work Phone: Squamous epithelial cells de tection in urine sediment by light microscopyon 04-30-2022 Epithelial cells.squamous LM Ql (Urine sed) 0-5 SEEN /hpf 5-10 [facility] Work Phone: [phone] Thin prep Papanicolaou smear with manual screeningon 04-30-2022 Thin prep Papanicolaou smear with manual screening 41 U/L 15-37 [facility] Work Phone: [phone] Comment on above: Moderate Hemolysis, Result may be falsely increased. Thin prep Papanicolaou smear with manual screening 10 5-15 [facility] Work Phone: Urine blood detectionon RBC Ql (U) 10 /ul Negative [facility] Work Phone: [phone] RBC Ql (U) 0-5 SEEN /hpf 0-5 [facility] Work Phone: [phone] Urine clarityon 04-30-2022 Clarity (U) Sl Cldy Clear [facility] Work Phone: [phone] Urine color determinationon 04-30-2022 Color (U) Yellow Yellow [facility] Work Phone: Urine glucose detectionon Glucose Ql (U) 1000 mg/dl Normal [facility] Work Phone: [phone] Urine leukocyte esterase det ection by dipstickon 04-30-2022 Leukocyte esterase Test strip Ql (U) 25 /ul Negative [facility] Work Phone: [phone] Urine pHon 04-30-2022 pH (U) 6.0 [pH] 5.0 - 8.0 [facility] Work Phone: [phone] Urine sediment bacteria coun t by microscopy (number/high power field)on 04-30-2022 Bacteria LM.HPF (Urine sed) [#/Area] 4 /[HPF] None Seen [facility] Work Phone: Urine sediment yeast count b y microscopy (number/high powered field)on 04-30-2022 Yeast LM.HPF (Urine sed) [#/Area] RARE /hpf None Seen [facility] Work Phone: Urine specific gravity measu rementon 04-30-2022 Specific gravity (U) [Rel density] 1.020 1.002-1.030 [facility] Work Phone: Urobilinogen Auto test strip Ql (U)on 04-30-2022 Urobilinogen Ql (U) Normal mg/dl Normal [facility] Work Phone: Absolute lymphocyte counton 01-22-2022 Lymphocytes Auto (Unsp spec) [#/Vol] 3.49 10*3/uL 0.83-4.51 [facility] Work Phone: Basophil percentageon 2021 Basophils/100 WBC (Bld) 0.6 % 0-1 [facility] Work Phone: Chloride [Moles/Vol] 107 mmol/L 98-107 [facility] Work Phone: Eosinophils/100 WBC (Bld) 1.5 % 0-5 [facility] Work Phone: Glucose [Mass/Vol] 204 mg/dL 74-106 [facility] Work Phone: Comment on above: Glucose result great er than or equal to 200 mg/dLsuggests DIABETES MELLITUS per A.D.A. criteria. Neutrophils (Bld) [#/Vol] 5.1 10*3/uL 2.0-7.7 [facility] Work Phone: Neutrophils/100 WBC (Bld) 53.5 % 47-70 [facility] Work Phone: Potassium [Moles/Vol] 4.0 mmol/L 3.5-5.1 [facility] Work Phone: Sodium [Moles/Vol] 139 mmol/L 136-145 [facility] Work Phone: WBC (Bld) [#/Vol] 9.5 10*3/uL 4.4-11.0 [facility] Work Phone: Blood erythrocytes count (nu mber/volume)on 01-22-2022 RBC (Bld) [#/Vol] 4.40 10*6/uL 4.2-5.4 [facility] Work Phone: Blood hemoglobin measurement (mass/volume)on 01-22-2022 Hemoglobin (Bld) [Mass/Vol] 13.4 g/dL 12.0-15.0 [facility] Work Phone: Blood lymphocytes/100 leukoc yteson 01-22-2022 Lymphocytes/100 WBC (Bld) 36.8 % 19-41 [facility] Work Phone: Blood monocytes/100 leukocyt eson 01-22-2022 Monocytes/100 WBC (Bld) 7.1 % 0-10 [facility] Work Phone: Blood platelet mean volumeon 01-22-2022 Platelet mean volume (Bld) [Entitic vol] 9.6 fL 6.2-12.0 [facility] Work Phone: Determination of erythrocyte mean corpuscular volume (MCV)on 01-22-2022 MCV (RBC) [Entitic vol] 94.5 fL 81-99 [facility] Work Phone: Glucose Glucometer (BldC) [M ass/Vol]on 01-22-2022 Glucose [Mass/Vol] 261 mg/dL 74-106 [facility] Work Phone: Comment on above: MANAGEMENT OF PATIEN T CARE PER NURSING PROTOCOL Hematocrit Auto (Bld) [Volum e fraction]on 01-22-2022 Hematocrit (Bld) [Volume fraction] 41.6 % 37-47 [facility] Work Phone: Laboratory - Chemistry and C hemistry - challengeon 01-22-2022 CO2 [Moles/Vol] 27.0 mmol/L 21.0-32.0 [facility] Work Phone: Urea nitrogen/Creatinine [Mass ratio] 16.2 mg/mg 10-20 [facility] Work Phone: [phone] Laboratory - Hematology and Cell countson 01-22-2022 Erythrocyte distribution width (RBC) [Entitic vol] 47.4 fL 35.1-43.9 [facility] Work Phone: [phone] Erythrocyte distribution width (RBC) [Ratio] 13.5 % 11.6-14.6 [facility] Work Phone: [phone] Immature granulocytes/100 WBC (Bld) 0.500 % 0.0-0.9 [facility] Work Phone: [phone] Comment on above: IG% - Immature Granu locytes (promyelocytes, myelocytes and metamyelocytes) > 1% indicates that a LEFT SHIFT is Present. MCH (RBC) [Entitic mass] 30.5 pg 27.0-32.0 [facility] Work Phone: [phone] Nucleated RBC/100 WBC (Bld) [Ratio] 0 % 0-5 [facility] Work Phone: [phone] MCHC Auto (RBC) [Mass/Vol]on 01-22-2022 MCHC (RBC) [Mass/Vol] 32.2 g/dL 32-36 [facility] Work Phone: [phone] Panel Informationon 01-22 Estimated Creatinine Clearance Calc 74.69 ml/min [facility] Work Phone: [phone] Estimated GFR (MDRD) Amer 101 mL/min >60 [facility] Work Phone: [phone] Comment on above: GFR Calc Estimated GFR (MDRD) Non-Af Amer 84 mL/min >60 [facility] Work Phone: [phone] Comment on above: Non- GFR Calc Platelets bldon 01-22-2022 Platelets (Bld) [#/Vol] 277 10*3/uL 150-450 [facility] Work Phone: [phone] Serum or plasma calcium maria elena urement (mass/volume)on 01-22-2022 Calcium [Mass/Vol] 8.6 mg/dL 8.5-10.1 [facility] Work Phone: Serum or plasma creatinine m easurement (mass/volume)on 01-22-2022 Creatinine [Mass/Vol] 0.74 mg/dL 0.55-1.02 [facility] Work Phone: Comment on above: The validity of the calculated GFR & GFRAA in patients over 70 years has not been determined. Clinical correlation is essential. Serum or plasma urea nitroge n measurement (mass/volume)on 01-22-2022 Urea nitrogen [Mass/Vol] 12 mg/dL 7-18 [facility] Work Phone: Thin prep Papanicolaou smear with manual screeningon 01-22-2022 Thin prep Papanicolaou smear with manual screening 5 5-15 [facility] Work Phone: Absolute lymphocyte counton 01-17-2022 Lymphocytes Auto (Unsp spec) [#/Vol] 3.77 10*3/uL 0.83-4.51 [facility] Work Phone: Basophil percentageon 2021 Lactate [Moles/Vol] 2.2 mmol/L 0.4-2.0 [facility] Work Phone: Comment on above: Critical Result(s) C alled at: 21:46:08 01/17/2022 by: Alex Benjamin to Geovanna Berrios RN (MS3). Results read back by same. Basophils/100 WBC (Bld) 0.3 % 0-1 [facility] Work Phone: Chloride [Moles/Vol] 108 mmol/L 98-107 [facility] Work [facility]: Eosinophils/100 WBC (Bld) 1.0 % 0-5 [facility] Work Phone: [phone] Glucose [Mass/Vol] 102 mg/dL 74-106 [facility] Work Phone: Comment on above: Fasting Glucose resu lt from 100 to 125 mg/dL suggests IMPAIRED HOMEOSTASIS per A.D.A. criteria. Lactate [Moles/Vol] 3.1 mmol/L 0.4-2.0 [facility] Work Phone: Comment on above: Critical Result(s) C alled at: 17:18:10 01/17/2022 by: Alex Clancy RN(ER). Results read back by same. Neutrophils (Bld) [#/Vol] 9.4 10*3/uL 2.0-7.7 [facility] Work Phone: Neutrophils/100 WBC (Bld) 65.4 % 47-70 [facility] Work Phone: [phone] Potassium [Moles/Vol] 3.4 mmol/L 3.5-5.1 [facility] Work [facility]: [phone] Sodium [Moles/Vol] 142 mmol/L 136-[facility]: [phone] WBC (Bld) [#/Vol] 14.4 10*3/uL 4.4-11.0 [facility] Work Phone: Basophil percentage 25-50 SEEN /hpf 0-5 [facility] Work Phone: [phone] Bilirubin Test strip Ql (U)o n 01-17-2022 Bilirubin Ql (U) Negative Negative [facility] Work Phone: Blood erythrocytes count (nu mber/volume)on 01-17-2022 RBC (Bld) [#/Vol] 4.83 10*6/uL 4.2-5.4 [facility] Work Phone: Blood hemoglobin measurement (mass/volume)on 01-17-2022 Hemoglobin (Bld) [Mass/Vol] 14.8 g/dL 12.0-15.0 [facility] Work Phone: Blood lymphocytes/100 leukoc yteson 01-17-2022 Lymphocytes/100 WBC (Bld) 26.2 % 19-41 [facility] Work Phone: Blood monocytes/100 leukocyt eson 01-17-2022 Monocytes/100 WBC (Bld) 6.6 % 0-10 [facility] Work Phone: [phone] Blood platelet mean volumeon 01-17-2022 Platelet mean volume (Bld) [Entitic vol] 9.0 fL 6.2-12.0 [facility] Work Phone: [phone] Culture, urineon 01-17-2022 Bacteria identified Cx Nom (U) Escherichia coli [facility] Work Phone: [phone] Determination of erythrocyte mean corpuscular volume (MCV)on 01-17-2022 MCV (RBC) [Entitic vol] 93.4 fL 81-99 [facility] Work Phone: [phone] Hematocrit Auto (Bld) [Volum e fraction]on 01-17-2022 Hematocrit (Bld) [Volume fraction] 45.1 % 37-47 [facility] Work Phone: [phone] Ketones Test strip Ql (U)on 01-17-2022 Ketones Ql (U) 5 mg/dl Negative [facility] Work Phone: [phone] Laboratory - Chemistry and C hemistry - challengeon 01-17-2022 CO2 [Moles/Vol] 27.0 mmol/L 21.0-32.0 [facility] Work Phone: [phone] Urea nitrogen/Creatinine [Mass ratio] 10.4 mg/mg 10-20 [facility] Work Phone: [phone] Laboratory - Hematology and Cell countson 01-17-2022 Erythrocyte distribution width (RBC) [Entitic vol] 47.9 fL 35.1-43.9 [facility] Work Phone: [phone] Erythrocyte distribution width (RBC) [Ratio] 13.9 % 11.6-14.6 [facility] Work Phone: [phone] Immature granulocytes/100 WBC (Bld) 0.500 % 0.0-0.9 [facility] Work Phone: [phone] Comment on above: IG% - Immature Granu locytes (promyelocytes, myelocytes and metamyelocytes) > 1% indicates that a LEFT SHIFT is Present. MCH (RBC) [Entitic mass] 30.6 pg 27.0-32.0 [facility] Work Phone: Nucleated RBC/100 WBC (Bld) [Ratio] 0 % 0-5 [facility] Work Phone: [phone] MCHC Auto (RBC) [Mass/Vol]on 01-17-2022 MCHC (RBC) [Mass/Vol] 32.8 g/dL 32-36 [facility] Work Phone: [phone] Mucus LM Ql (Urine sed)on Mucus Ql (Urine sed) 0 SEEN /hpf [facility] Work Phone: [phone] Nitrite Test strip Ql (U)on 01-17-2022 Nitrite Ql (U) Positive Negative [facility] Work Phone: No Panel Informationon 01-17 Estimated Creatinine Clearance Calc 71.78 ml/min [facility] Work Phone: Estimated GFR (MDRD) Amer 97 mL/min >60 [facility] Work Phone: Comment on above: GFR Calc Estimated GFR (MDRD) Non-Af Amer 80 mL/min >60 [facility] Work Phone: Comment on above: Non- GFR Calc Platelets bldon 01-17-2022 Platelets (Bld) [#/Vol] 339 10*3/uL 150-450 [facility] Work Phone: Protein Test strip Ql (U)on 01-17-2022 Protein Ql (U) 30 mg/dl Negative [facility] Work Phone: [phone] Serum or plasma calcium maria elena urement (mass/volume)on 01-17-2022 Calcium [Mass/Vol] 8.9 mg/dL 8.5-10.1 [facility] Work Phone: [phone] Serum or plasma creatinine m easurement (mass/volume)on 01-17-2022 Creatinine [Mass/Vol] 0.77 mg/dL 0.55-1.02 [facility] Work Phone: Comment on above: The validity of the calculated GFR & GFRAA in patients over 70 years has not been determined. Clinical correlation is essential. Serum or plasma urea nitroge n measurement (mass/volume)on 01-17-2022 Urea nitrogen [Mass/Vol] 8 mg/dL 7-18 [facility] Work Phone: [phone] Squamous epithelial cells de tection in urine sediment by light microscopyon 01-17-2022 Epithelial cells.squamous LM Ql (Urine sed) 5-10 SEEN /hpf 5-10 [facility] Work Phone: [phone] Thin prep Papanicolaou smear with manual screeningon 01-17-2022 Thin prep Papanicolaou smear with manual screening 7 5-15 [facility] Work Phone: [phone] Urine blood detectionon 12-24 RBC Ql (U) 25 /ul Negative [facility] Work Phone: [phone] RBC Ql (U) 0-5 SEEN /hpf 0-5 [facility] Work Phone: [phone] Urine clarityon 01-17-2022 Clarity (U) Cloudy Clear [facility] Work Phone: Urine color determinationon 01-17-2022 Color (U) Yellow Yellow [facility] Work Phone: [phone] Urine glucose detectionon Glucose Ql (U) 50 mg/dl Normal [facility] Work Phone: [phone] Urine leukocyte esterase det ection by dipstickon 01-17-2022 Leukocyte esterase Test strip Ql (U) 500 /ul Negative [facility] Work Phone: [phone] Urine pHon 01-17-2022 pH (U) 6.0 [pH] 5.0 - 8.0 [facility] Work Phone: [phone] Urine sediment bacteria coun t by microscopy (number/high power field)on 01-17-2022 Bacteria LM.HPF (Urine sed) [#/Area] 4 /[HPF] None Seen [facility] Work Phone: [phone] Urine specific gravity measu rementon 01-17-2022 Specific gravity (U) [Rel density] 1.020 1.002-1.030 [facility] Work Phone: Urobilinogen Auto test strip Ql (U)on 01-17-2022 Urobilinogen Ql (U) Normal mg/dl Normal [facility] Work Phone: Absolute lymphocyte counton 01-02-2022 Lymphocytes Auto (Unsp spec) [#/Vol] 4.60 10*3/uL 0.83-4.51 [facility] Work Phone: Basophil percentageon 2021 Bilirubin [Mass/Vol] 0.40 mg/dL 0.20-1.00 [facility] Work Phone: Comment on above: For patients on eltr ombopag therapy, use of Dimension [place] TBIL is not recommended. Chloride [Moles/Vol] 106 mmol/L 98-107 [facility] Work Phone: Glucose [Mass/Vol] 294 mg/dL 74-106 [facility] Work Phone: Comment on above: Glucose result great er than or equal to 200 mg/dLsuggests DIABETES MELLITUS per A.D.A. criteria. Potassium [Moles/Vol] 4.1 mmol/L 3.5-5.1 [facility] Work Phone: Protein [Mass/Vol] 6.5 g/dL 6.4-8.2 [facility] Work Phone: Sodium [Moles/Vol] 137 mmol/L 136-145 [facility] Work Phone: Basophil percentage 25-50 SEEN /hpf 0-5 [facility] Work Phone: Basophils/100 WBC (Bld) 0.5 % 0-1 [facility] Work Phone: Eosinophils/100 WBC (Bld) 0.8 % 0-5 [facility] Work Phone: Neutrophils (Bld) [#/Vol] 11.2 10*3/uL 2.0-7.7 [facility] Work Phone: Neutrophils/100 WBC (Bld) 65.1 % 47-70 [facility] Work Phone: WBC (Bld) [#/Vol] 17.2 10*3/uL 4.4-11.0 [facility] Work Phone: Bilirubin Test strip Ql (U)o n 01-02-2022 Bilirubin Ql (U) Negative Negative [facility] Work Phone: [phone] Blood erythrocytes count (nu mber/volume)on 01-02-2022 RBC (Bld) [#/Vol] 5.23 10*6/uL 4.2-5.4 [facility] Work Phone: [phone] Blood hemoglobin measurement (mass/volume)on 01-02-2022 Hemoglobin (Bld) [Mass/Vol] 15.9 g/dL 12.0-15.0 [facility] Work Phone: Blood lymphocytes/100 leukoc yteson 01-02-2022 Lymphocytes/100 WBC (Bld) 26.8 % 19-41 [facility] Work Phone: Blood monocytes/100 leukocyt eson 01-02-2022 Monocytes/100 WBC (Bld) 5.9 % 0-10 [facility] Work Phone: [phone] Blood platelet adequacy dete ction by light microscopyon 01-02-2022 Platelets LM Ql (Bld) ADEQUATE ADEQ [facility] Work Phone: [phone] Blood platelet mean volumeon 01-02-2022 Platelet mean volume (Bld) [Entitic vol] 9.0 fL 6.2-12.0 [facility] Work Phone: Culture, urineon 01-02-2022 Bacteria identified Cx Nom (U) Escherichia coli [facility] Work Phone: [phone] Bacteria identified Cx Nom (U) Positive [facility] Work Phone: [phone] Determination of erythrocyte mean corpuscular volume (MCV)on 01-02-2022 MCV (RBC) [Entitic vol] 92.9 fL 81-99 [facility] Work Phone: [phone] Hematocrit Auto (Bld) [Volum e fraction]on 01-02-2022 Hematocrit (Bld) [Volume fraction] 48.6 % 37-47 [facility] Work Phone: [phone] Ketones Test strip Ql (U)on 01-02-2022 Ketones Ql (U) 15 mg/dl Negative [facility] Work Phone: [phone] Laboratory - Chemistry and C hemistry - challengeon 01-02-2022 ALP [Catalytic activity/Vol] 68 U/L 45-117 [facility] Work Phone: [phone] ALT [Catalytic activity/Vol] 19 U/L 13-56 [facility] Work Phone: [phone] CO2 [Moles/Vol] 25.0 mmol/L 21.0-32.0 [facility] Work Phone: [phone] Globulin (S) [Mass/Vol] 3.3 g/dL 2.2-4.2 [facility] Work Phone: [phone] Urea nitrogen/Creatinine [Mass ratio] 10.6 mg/mg 10-20 [facility] Work Phone: [phone] Laboratory - Hematology and Cell countson 01-02-2022 Erythrocyte distribution width (RBC) [Entitic vol] 47.4 fL 35.1-43.9 [facility] Work Phone: [phone] Erythrocyte distribution width (RBC) [Ratio] 14.0 % 11.6-14.6 [facility] Work Phone: [phone] Immature granulocytes/100 WBC (Bld) 0.900 % 0.0-0.9 [facility] Work Phone: [phone] Comment on above: IG% - Immature Granu locytes (promyelocytes, myelocytes and metamyelocytes) > 1% indicates that a LEFT SHIFT is Present. MCH (RBC) [Entitic mass] 30.4 pg 27.0-32.0 [facility] Work Phone: [phone] Nucleated RBC/100 WBC (Bld) [Ratio] 0 % 0-5 [facility] Work Phone: [phone] MCHC Auto (RBC) [Mass/Vol]on 01-02-2022 MCHC (RBC) [Mass/Vol] 32.7 g/dL 32-36 [facility] Work Phone: Mucus LM Ql (Urine sed)on Mucus Ql (Urine sed) 0 SEEN /hpf [facility] Work Phone: Nitrite Test strip Ql (U)on 01-02-2022 Nitrite Ql (U) Negative Negative [facility] Work Phone: No Panel Informationon 01-02 Estimated Creatinine Clearance Calc 62.59 ml/min [facility] Work Phone: [phone] Estimated GFR (MDRD) Amer 86 mL/min >60 [facility] Work Phone: Comment on above: GFR Calc Estimated GFR (MDRD) Non-Af Amer 71 mL/min >60 [facility] Work Phone: Comment on above: Non- GFR Calc Platelets bldon 01-02-2022 Platelets (Bld) [#/Vol] 456 10*3/uL 150-450 [facility] Work Phone: Protein Test strip Ql (U)on 01-02-2022 Protein Ql (U) 30 mg/dl Negative [facility] Work Phone: RBC morphologyon 01-02-2022 RBC morphology finding Nom (Bld) NORM C+C NORMAL NORM C&C [facility] Work Phone: [phone] Serum or plasma albumin maria elena urement (mass/volume)on 01-02-2022 Albumin [Mass/Vol] 3.2 g/dL 3.2-5.0 [facility] Work Phone: Serum or plasma albumin/glob ulin mass ratioon 01-02-2022 Albumin/Globulin [Mass ratio] 1.0 {ratio} 0.9-2.4 [facility] Work Phone: Serum or plasma calcium maria elena urement (mass/volume)on 01-02-2022 Calcium [Mass/Vol] 8.5 mg/dL 8.5-10.1 [facility] Work Phone: Serum or plasma creatinine m easurement (mass/volume)on 01-02-2022 Creatinine [Mass/Vol] 0.85 mg/dL 0.55-1.02 [facility] Work Phone: Comment on above: The validity of the calculated GFR & GFRAA in patients over 70 years has not been determined. Clinical correlation is essential. Serum or plasma urea nitroge n measurement (mass/volume)on 01-02-2022 Urea nitrogen [Mass/Vol] 9 mg/dL 7-18 [facility] Work Phone: [phone] Squamous epithelial cells de tection in urine sediment by light microscopyon 01-02-2022 Epithelial cells.squamous LM Ql (Urine sed) 0-5 SEEN /hpf 5-10 [facility] Work Phone: Thin prep Papanicolaou smear with manual screeningon 01-02-2022 Thin prep Papanicolaou smear with manual screening 26 U/L 15-37 [facility] Work Phone: [phone] Thin prep Papanicolaou smear with manual screening 6 5-15 [facility] Work Phone: Urine blood detectionon 12-23 RBC Ql (U) 25 /ul Negative [facility] Work Phone: RBC Ql (U) 0-5 SEEN /hpf 0-5 [facility] Work Phone: [phone] Urine clarityon 01-02-2022 Clarity (U) Sl. Cloudy Clear [facility] Work Phone: Urine color determinationon 01-02-2022 Color (U) Yellow Yellow [facility] Work Phone: [phone] Urine glucose detectionon Glucose Ql (U) 250 mg/dl Normal [facility] Work Phone: [phone] Urine leukocyte esterase det ection by dipstickon 01-02-2022 Leukocyte esterase Test strip Ql (U) 500 /ul Negative [facility] Work Phone: [phone] Urine pHon 01-02-2022 pH (U) 6.0 [pH] 5.0 - 8.0 [facility] Work Phone: Urine sediment bacteria coun t by microscopy (number/high power field)on 01-02-2022 Bacteria LM.HPF (Urine sed) [#/Area] 1 /[HPF] None Seen [facility] Work Phone: Urine specific gravity measu rementon 01-02-2022 Specific gravity (U) [Rel density] 1.025 1.002-1.030 [facility] Work Phone: Urobilinogen Auto test strip Ql (U)on 01-02-2022 Urobilinogen Ql (U) 1 mg/dl Normal [facility] Work Phone: UA DIP, URINE (POC)on 2021 BILIRUBIN UA (POCT) Negative Negative [facility] CLARITY UA (POCT) Slightly Cloudy Cl [facility] COLOR UA (POCT) Dark yellow [facility] GLUCOSE UA (POCT) 500 mg/dL Abnormal Negative mg/dL [facility] HEMOGLOBIN/BLOOD UA (POCT) Negative Negative [facility] KETONE UA (POCT) 15 mg/dL Abnormal Negative mg/dL [facility] LEUKOCYTES UA (POCT) Trace Abnormal Negative [facility] NITRITE UA (POCT) Positive Abnormal Negative [facility] PH UA (POCT) 5.5 4.5 - 8.0 [facility] Protein Ql (U) Negative Negative mg/dL [facility] SPECIFIC GRAVITY UA (POCT) >=1.030 1.005 - 1.030 [facility] UROBILINOGEN UA (POCT) 0.2 E.U./dL Christine l E.U./dL [facility] COVID-19/INFLUENZA A,B MOLEC ULARon 07-16-2021 SARS-CoV-2 (COVID-19) Ab IA Ql SARS-COV-2 RNA (HEIDI): Not Detected INFLUENZA A (HEIDI): Not Detected INFLUENZA B (HEIDI): Not Detected Normal Not Detected [facility] Comment on above: Order Comment: [...] at the following links: For Healthcare Providers: https://www.[place].gov/media/671753/download ? For Patients: https://www.fda.gov/media/175355/download Performed By: #### L [id number] #### [facility] [address] [place] [address] Phillip Badillo M.D. [id number] XR Chest PA and Lateralon IMPRESSION: No acute radiographic abnormality. Job Cost Estimator: JOHNIE Transcribe Date/Time: Apr 11 2021 1:51P Dictated by : ELIJAH FORD DO This examination was interpreted and the report reviewed and electronically signed by: ELIJAH FORD DO on Apr 11 2021 1:53PM [facility] DIVISION OF RADIOLOGY * * *Final Report* [...] the thoracic spine. DIVISION OF RADIOLOGY Provider, [facility] Jose Carlos Argueta - 04/11/2021 * [...] spine. IMPRESSION IMPRESSION: No acute radiographic abnormality. Job Cost Estimator: JOHNIE Transcribe Date/Time: Apr 11 2021 1:51P Dictated by : ELIJAH FORD DO This examination was interpreted and the report reviewed and electronically signed by: ELIJAH FORD DO on Apr 11 2021 1:53PM EST [facility] Radiology Study observation (narrative) Germaine Julian XR Chest PA and LateralOrder ed By: Ccf Provider on 04-11-2021 [facility] HISTORY PHYSICALon HISTORY PHYSICAL HNO ID: [id number] Author: Maryellen Barrera MD Service: Interventional Cardiology [...] December 29, 2020 TIME: 8:10 AM Normal [facility] CNPNon 12-11-2020 CNPN Telephone ([facility]) IVET VALERO ([id number]) 1955 F Date Time Provider Department 12/11/20 MARYELLEN BARRERA During your visit today, we recorded the following information about you: Selena Moyapkins [facility] 12/11/2020 12:27 PM Signed Schedule [facility] on 12/29/[address] Bruce Morales 12/11/2020 1:25 PM Signed Patient scheduled for left heart cath, with Dr Barrera on 12/29/20. Instructions reviewed. Questions answered. Patient verbalized understanding. Instructions were as follows: -Arrive to [facility] HAND Entrance at time assigned by [facility] malthouse laborer staff in phone call 2-5 PM 12/28/20 [...] someone drive you home from your procedure. -malthouse laborer policy is pt not be alone first [...] laboratory examination [Z01.812] Order(s):CBC [SQCBC] Order #: [id number] FUTURE BASIC METABOLIC PNL [SQBMP] Order #: [id number] FUTURE PRE-PROCEDURE AND PRE-OPERATIVE COVID [SQPOCOVD] Order #: [id number] FUTURE Prescriptions as of 12/11/2020 Sig: CARVEDILOL [...] INSOMNIA [G47.00] 05/25/2008 MGRN W [facility] WO 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 Job Cost Estimator: JOHNIE Transcribe Date/Time: Jul 27 2020 12:52P Dictated by : ANA HUNTLEY MD This examination was interpreted and the report reviewed and electronically signed by: ANA HUNTLEY MD on Jul 27 2020 12:54PM [facility] DIVISION OF RADIOLOGY * * *Final Report* [...] the thoracic spine. DIVISION OF RADIOLOGY Provider, [facility] - 07/27/2020 * * *Final Report* * [...] spine. IMPRESSION IMPRESSION: No acute radiographic abnormality. Job Cost Estimator: PSCB Transcribe Date/Time: Jul 27 2020 12:52P Dictated by : ANA HUNTLEY MD This examination was interpreted and the report reviewed and electronically signed by: ANA HUNTLEY MD on Jul 27 2020 12:54PM EST [facility] Radiology Study observation (narrative) Germaine Julian XR Chest PA and LateralOrder ed By: Ccf Provider on 07-27-2020 [facility] CBC + DIFFon 04-12-2020 Basophils (Bld) [#/Vol] 0.20 x10EE3/UL High 0.00 - 0 .10 [facility] Comment on above: Performed By: #### 2 28310 #### [place] [address] Basophils/100 WBC (Bld) 1.2 % Normal 0.0 - 2.0 [facility] Comment on above: Performed By: #### 2 51142 #### [facility],[address] [place] [address] CBC + DIFF Normal [facility] Comment on above: Result Comment: CBC- COMPLETE BLOOD COUNT Performed By: #### 2 77764 #### [place] [address] Eosinophils (Bld) [#/Vol] 0.10 x10EE3/UL Normal 0.00 - 0.50 [facility] Comment on above: Performed By: #### 2 76213 #### [facility],[address] [place], [place] [id number] Eosinophils/100 WBC (Bld) 0.6 % Normal 0.0 - 7.0 [facility] Comment on above: Performed By: #### 2 76410 #### [place] [address] Erythrocyte distribution width (RBC) [Ratio] 13.5 % Normal 12.0 - 15.6 [facility] Comment on above: Performed By: #### 2 92186 #### [facility],[address] [place] [address] Hematocrit (Bld) [Volume fraction] 44.7 % Normal 34.0 - 46.0 [facility] Comment on above: Performed By: #### 2 08220 #### [place] [address] Hemoglobin (Bld) [Mass/Vol] 15.4 g/dL Normal 12.0 - 16.0 [facility] Comment on above: Performed By: #### 2 47720 #### [facility],[address] [place] [address] Lymphocytes (Bld) [#/Vol] 5.20 x10EE3/UL High 0.80 - 2.80 [facility] Comment on above: Performed By: #### 2 43682 #### [facility],[address] [place] [address] Lymphocytes/100 WBC (Bld) 29.0 % Normal 20.0 - 45.0 [facility] Comment on above: Performed By: #### 2 43768 #### [facility],[address] [place] [address]138 MANUAL DIFF N/A Normal [facility] Comment on above: Performed By: #### 2 90294 #### [facility],[address] [place] [address] 87439 MCH (RBC) [Entitic mass] 30 pg Normal 27 - 33 [facility] Comment on above: Performed By: #### 2 31769 #### [facility],[address] [place] [address]2357 MCHC (RBC) [Mass/Vol] 34 X10 3 Normal 32 - 36 [facility] Comment on above: Performed By: #### 2 65204 #### [facility],[address] [place] [address] 66982 MCV (RBC) [Entitic vol] 88 fL Normal 80 - 99 [facility] Comment on above: Performed By: #### 2 79030 #### [facility],[address] [place] [address] 60981 Monocytes (Bld) [#/Vol] 0.90 x10EE3/UL Normal 0.20 - 1 .00 [facility] Comment on above: Performed By: #### 2 47208 #### [facility],[address] [place] [address]39 MONOS % 5.2 % Normal 0.0 - 10.0 [facility] Comment on above: Performed By: #### 2 77200 #### [facility],[address] [place] [address] 33812 Morphology Gab (Bld) [Interp] N/A Normal [facility] Comment on above: Performed By: #### 2 91743 #### [facility],[address] [place] [address] 18725 Neutrophils (Bld) [#/Vol] 11.50 x10EE3/UL High 1.50 - 7.10 [facility] Comment on above: Performed By: #### 2 59121 #### [facility],[address] [place] [address] 14827 Neutrophils/100 WBC (Bld) 64.0 % Normal 46.0 - 76.0 [facility] Comment on above: Performed By: #### 2 42809 #### [address] [address] Platelet mean volume (Bld) [Entitic vol] 6.1 fL Low 6.6 - 10.5 [facility] Comment on above: Result Comment: AUTO MATED DIFFERENTIAL Performed By: #### 2 63220 #### [address] [address] Platelets (Bld) [#/Vol] 417 x10EE3/UL Normal 150 - 450 [facility] Comment on above: Performed By: #### 2 30147 #### [address] [address] RBC (Bld) [#/Vol] 5.07 x 10EE6/UL Normal 4.10 - 5.30 [facility] Comment on above: Performed By: #### 2 65100 #### [address] [address] WBC (Bld) [#/Vol] 17.9 x 10EE3/UL High 4.5 - 10.8 [facility] Comment on above: Performed By: #### 2 70566 #### [facility],[address] [place] [address]78[address] CHEST 1 VIEWon 04-12-2020 CHEST 1 VIEW [place] [address] Patient: IVET VALERO Phone#: : 1955 Age: 65 Gender: F Pt. Type: ER Account: [id number] Location: [facility] Ordering: TOSHIA ROMERO Exam Date: 04/12/2020/9:06 Family Phys: RICCI COLE Charge Code: 658367 Physician: Hudson Order #: [id number] DLP Dose#: PROCEDURE: X-RAY CHEST 1 VIEW COM[facility], [facility]R, CHEST PA/LAT, 09/29/2016, 18:37. INDICATIONS: [...] Falcon MD on 04/12/2020 at 9:22 Normal [facility] CMP with eGFRon 04-12-2020 Age - Reported 65 years Normal [facility] Comment on above: Performed By: #### 2 11182 #### [facility],[address] [place] [address]842 Albumin [Mass/Vol] 4.1 g/dL Normal 3.4 - 4.8 [facility] Comment on above: Performed By: #### 2 83950 #### [facility],[address] [place] [address] 95681 Albumin/Globulin [Mass ratio] 1.6 {ratio} Normal 0.9 - 1.6 [facility] Comment on above: Performed By: #### 2 62850 #### [facility],[address] [place] [address] 20736 ALK PHOS 54 U/L Normal 38 - 126 [facility] Comment on above: Performed By: #### 2 28110 #### [facility],[address] [place] [address] 12527 ALT/SGPT 17 U/L Normal 8 - 35 [facility] Comment on above: Performed By: #### 2 05437 #### [facility],[address] [place] [address] 83701 Anion gap [Moles/Vol] 13 mmol/L Normal 10 - 20 [facility] Comment on above: Performed By: #### 2 13031 #### [facility],[address] [place] [address] 82004 AST/SGOT 15 U/L Normal 13 - 39 [facility] Comment on above: Performed By: #### 2 21800 #### [facility],[address] [place] [address] 86592 B/C RATIO 20 ratio Normal 0 - 30 [facility] Comment on above: Performed By: #### 2 45136 #### [facility],[address] [place] [address] 72630 Bilirubin [Mass/Vol] 0.6 mg/dL Normal 0.0 - 1.5 [facility] Comment on above: Performed By: #### 2 87971 #### [facility],[address] [place] [address] 08582 Calcium [Mass/Vol] 9.1 mg/dL Normal 8.6 - 10.2 [facility] Comment on above: Performed By: #### 2 08657 #### [facility],[address] [place] [address] 26620 Chloride [Moles/Vol] 102 mmol/L Normal 98 - 107 [facility] Comment on above: Performed By: #### 2 82958 #### [facility],[address] [place] [address] 92504 CO2 [Moles/Vol] 25.9 mmol/L Normal 21.0 - 31.0 [facility] Comment on above: Performed By: #### 2 54831 #### [facility],[address] [place] [address] 73079 Creatinine [Mass/Vol] 0.7 mg/dL Normal 0.6 - 1.2 [facility] Comment on above: Performed By: #### 2 38909 #### [facility],[address] [place] [address] 52499 GFR/1.73 sq M predicted among non-blacks MDRD (S/P/Bld) [Vol rate/Area] Normal [facility] Comment on above: Result Comment: COMP REHENSIVE METABOLIC PANEL Performed By: #### 2 08399 #### [address] [address] GFR/1.73 sq M predicted among non-blacks MDRD (S/P/Bld) [Vol rate/Area] mL/min/{1.73_m2} Normal 60 - 999 [facility] Comment on above: Result Comment: ACCO RDING TO THE NATIONAL KIDNEY DISEASE EDUCATION PROGRAM(NKDE), A NORMAL eGFR IS A VALUE GREATER THAN OR EQUAL TO 60 ML/MIN/1.73 SQ METERS. CHRONIC KIDNEY DISEASE: <60mL/MIN/1.73 SQ METERS KIDNEY FAILURE: <15mL/MIN/1.73 SQ METERS THIS TEST SHOULD ONLY BE USED FOR PATIENTS 18 YEARS OF AGE AND OLDER. Performed By: #### 2 31189 #### [facility],[address] [place] [address]45[address] Globulin (S) [Mass/Vol] 2.6 g/dL Normal 1.5 - 3.8 [facility] Comment on above: Performed By: #### 2 23520 #### [facility],[address] [place] [address] 76974 Glucose [Mass/Vol] 168 mg/dL High 74 - 106 [facility] Comment on above: Performed By: #### 2 16907 #### [facility],[address] [place] [address] 76798 Potassium [Moles/Vol] 4.1 mmol/L Normal 3.5 - 5.1 [facility] Comment on above: Performed By: #### 2 84364 #### [address] [address] Protein [Mass/Vol] 6.7 g/dL Normal 6.4 - 8.3 [facility] Comment on above: Performed By: #### 2 25637 #### [address] [address] Sodium [Moles/Vol] 137 mmol/L Normal 136 - 145 [facility] Comment on above: Performed By: #### 2 40881 #### [address] [address] Urea nitrogen [Mass/Vol] 14 mg/dL Normal 6 - 20 [facility] Comment on above: Performed By: #### 2 00340 #### [address] [address] URINALYSISon 04-12-2020 Amorphous NONE Normal [facility] Comment on above: Performed By: #### 2 13075 #### [address] [address] Bacteria LM.HPF (Urine sed) [#/Area] NONE Normal [facility] Comment on above: Performed By: #### 2 00475 #### [address] [address] Bilirubin [Mass/Vol] Negative Normal NORMAL: NEGATIVE [facility] Comment on above: Performed By: #### 2 02744 #### [address] [address] Blood Negative Normal NORMAL: NEGATIVE [facility] Comment on above: Performed By: #### 2 05038 #### [facility],[address] [place] [address]27 Casts LM.LPF (Urine sed) [#/Area] NONE Normal [facility] Comment on above: Performed By: #### 2 47376 #### [facility],[address] [place] [address] 60969 Clarity (U) clear Normal NORMAL: CLEAR [facility] Comment on above: Performed By: #### 2 50471 #### [facility],[address] [place] [address] Color (U) p.yel Normal NORMAL: YELLOW [facility] Comment on above: Performed By: #### 2 82925 #### [facility],[address] [place] [address] Crystals LM Nom (Urine sed) NONE Normal [facility] Comment on above: Performed By: #### 2 60212 #### [facility],[address] [place] [address]26 Epi Cells NONE Normal [facility] Comment on above: Performed By: #### 2 77667 #### [facility],[address] [place] [address] 34779 Glucose [Mass/Vol] 50 Abnormal NORMAL: NORMAL [facility] Comment on above: Performed By: #### 2 48077 #### [facility],[address] [place] [address] 73008 Ketone Negative Normal NORMAL: NEGATIVE [facility] Comment on above: Performed By: #### 2 92754 #### [facility],[address] [place] [address]1491 Microscopic SEE BELOW Normal [facility] Comment on above: Result Comment: MICR OSCOPIC Performed By: #### 2 15351 #### [facility],[address] [place] [address]97[address] Mucous NONE Normal [facility] Comment on above: Performed By: #### 2 94314 #### [facility],[address] [place] [address] Nitrite Ql (U) Negative Normal NORMAL: NEGATIVE [facility] Comment on above: Performed By: #### 2 69789 #### [facility],[address] [place] [address] pH (Bld) 6 Normal NORMAL: 5.0-8.0 [facility] Comment on above: Performed By: #### 2 87778 #### [facility],[address] [place] [address] Protein (U) [Mass/Vol] Negative Normal CHRISTINE L: NEGATIVE [facility] Comment on above: Performed By: #### 2 32104 #### [facility],[address] [place] [address] Rbc NONE Normal 0-3/hpf [facility] Comment on above: Performed By: #### 2 90105 #### [facility],[address] [place] [address] Sp [place] 1.010 Normal NORMAL: 1.010-1.030 [facility] Comment on above: Performed By: #### 2 40524 #### [facility],[address] [place] [address] Specimen type Nom (Spec) Void Normal [facility] Comment on above: Performed By: #### 2 30658 #### [facility],[address] [place] [address] Urobilinog NORM Normal NORMAL: NORMAL [facility] Comment on above: Performed By: #### 2 74168 #### [facility],[address] [place] [address] Wbc 1-5 Normal 0-5/hpf [facility] Comment on above: Performed By: #### 2 61983 #### [facility],[address] [place] [address] WBC (Bld) [#/Vol] 25 Abnormal NORMAL: NEGATIVE [facility] Comment on above: Performed By: #### 2 33227 #### [facility],[address] [place], [place] [address] Yeast LM Ql (Urine sed) 1+ Normal [facility] Comment on above: Performed By: #### 2 23450 #### [facility],[address] [place], [place] [address] Culture, urine Bacteria identified Cx Nom (U) Escherichia coli [facility] Work Phone: Bacteria identified Cx Nom (U) Positive [facility] Work Phone: Laboratory - Microbiology an d Antimicrobial susceptibility Bacteria identified Cx Nom (Bld) No growth in 5 days. [facility] Work Phone: Vital Signs Date Time Vital Sign Value Performing Clinician Facility 05-15-2025 04:00-0400 Heart rate 89 /min Dr. Ricci Cole MD Work Phone: [facility] 05-15-2025 04:00-0400 Respiratory rate 18 /min Dr. Ricci Cole MD Work Phone: [facility] 05-15-2025 04:00-0400 SaO2% (BldA) [Mass fraction] 98 % Dr. Ricci Cole MD Work Phone: [facility] 05-15-2025 03:49-0400 Body temperature 98.2 [degF] Dr. Ricci Cole MD Work Phone: [facility] 05-15-2025 03:49-0400 Diastolic blood pressure 72 mm[Hg] Dr. Ricci Cole MD Work Phone: [facility] 05-15-2025 03:49-0400 Systolic blood pressure 173 mm[Hg] Dr. Ricci Cole MD Work Phone: [facility] 05-15-2025 00:25-0400 Body height 170.[address] Ricci Cole MD Work Phone: [facility] 05-15-2025 00:25-0400 Body mass index (BMI) [Ratio] 37.2 kg/m2 Dr. Ricci Cole MD Work Phone: [facility] 05-15-2025 00:25-0400 Body weight 107.[address] Ricci Cole MD Work Phone: [facility] 05-06-2025 09:08-0400 Diastolic blood pressure 76 mm[Hg] Smiley Suppan PROCESS DESIGN ENGINEER.NEUROPHYSIOLOGICAL TECHNICIAN Work Phone: [facility] 05-06-2025 09:08-0400 Systolic blood pressure 132 mm[Hg] Smiley Suppan PROCESS DESIGN ENGINEER.NEUROPHYSIOLOGICAL TECHNICIAN Work Phone: [facility] 05-06-2025 08:52-0400 Body mass index (BMI) [Ratio] 40.04 kg/m2 Smiley Suppan PROCESS DESIGN ENGINEER.NEUROPHYSIOLOGICAL TECHNICIAN Work Phone: [facility] 05-06-2025 08:52-0400 Body temperature 97.81 [degF] Smiley Suppan PROCESS DESIGN ENGINEER.NEUROPHYSIOLOGICAL TECHNICIAN Work Phone: [facility] 05-06-2025 08:52-0400 Body weight 102.51 kg Smiley Suppan PROCESS DESIGN ENGINEER.NEUROPHYSIOLOGICAL TECHNICIAN Work Phone: [facility] 05-06-2025 08:52-0400 Heart rate 103 /min Smiley Suppan PROCESS DESIGN ENGINEER.NEUROPHYSIOLOGICAL TECHNICIAN Work Phone: [facility] 05-06-2025 08:52-0400 SaO2% (BldA) [Mass fraction] 98 % Smiley Suppan PROCESS DESIGN ENGINEER.NEUROPHYSIOLOGICAL TECHNICIAN Work Phone: [facility] 03-10-2025 10:45-0400 Body temperature 99 [degF] Smiley Suppan PROCESS DESIGN ENGINEER.NEUROPHYSIOLOGICAL TECHNICIAN Work Phone: [facility] 03-10-2025 10:45-0400 Diastolic blood pressure 78 mm[Hg] Smiley Suppan PROCESS DESIGN ENGINEER.NEUROPHYSIOLOGICAL TECHNICIAN Work Phone: [facility] 03-10-2025 10:45-0400 Heart rate 110 /min Smiley Suppan PROCESS DESIGN ENGINEER.NEUROPHYSIOLOGICAL TECHNICIAN Work Phone: [facility] 03-10-2025 10:45-0400 SaO2% (BldA) [Mass fraction] 95 % Smiley Suppan PROCESS DESIGN ENGINEER.NEUROPHYSIOLOGICAL TECHNICIAN Work Phone: [facility] 03-10-2025 10:45-0400 Systolic blood pressure 140 mm[Hg] Smiley Suppan PROCESS DESIGN ENGINEER.NEUROPHYSIOLOGICAL TECHNICIAN Work Phone: [facility] 03-01-2025 09:34-0400 Body height 160 cm Smiley Suppan PROCESS DESIGN ENGINEER.NEUROPHYSIOLOGICAL TECHNICIAN Work Phone: [facility] 03-01-2025 09:34-0400 Body mass index (BMI) [Ratio] 39.87 kg/m2 Smiley Suppan PROCESS DESIGN ENGINEER.NEUROPHYSIOLOGICAL TECHNICIAN Work Phone: [facility] 03-01-2025 09:34-0400 Body temperature 98.49 [degF] Smiley Suppan PROCESS DESIGN ENGINEER.NEUROPHYSIOLOGICAL TECHNICIAN Work Phone: [facility] 03-01-2025 09:34-0400 Body weight 102.06 kg Smiley Suppan PROCESS DESIGN ENGINEER.NEUROPHYSIOLOGICAL TECHNICIAN Work Phone: [facility] 03-01-2025 09:34-0400 Diastolic blood pressure 68 mm[Hg] Smiley Suppan PROCESS DESIGN ENGINEER.NEUROPHYSIOLOGICAL TECHNICIAN Work Phone: [facility] 03-01-2025 09:34-0400 Heart rate 110 /min Smiley Suppan PROCESS DESIGN ENGINEER.NEUROPHYSIOLOGICAL TECHNICIAN Work Phone: [facility] 03-01-2025 09:34-0400 SaO2% (BldA) [Mass fraction] 96 % Smiley Suppan PROCESS DESIGN ENGINEER.NEUROPHYSIOLOGICAL TECHNICIAN Work Phone: [facility] 03-01-2025 09:34-0400 Systolic blood pressure 132 mm[Hg] Smiley Suppan PROCESS DESIGN ENGINEER.NEUROPHYSIOLOGICAL TECHNICIAN Work Phone: [facility] 07-26-2024 10:16-0500 Diastolic blood pressure 60 mm[Hg] Smiley Suppan PROCESS DESIGN ENGINEER.NEUROPHYSIOLOGICAL TECHNICIAN Work Phone: [facility] 07-26-2024 10:16-0500 Systolic blood pressure 128 mm[Hg] Smiley Suppan PROCESS DESIGN ENGINEER.NEUROPHYSIOLOGICAL TECHNICIAN Work Phone: [facility] 07-26-2024 09:45-0500 Body mass index (BMI) [Ratio] 35.56 kg/m2 Smiley Suppan PROCESS DESIGN ENGINEER.NEUROPHYSIOLOGICAL TECHNICIAN Work Phone: [facility] 07-26-2024 09:45-0500 Body temperature 98.8 [degF] Smiley Suppan PROCESS DESIGN ENGINEER.NEUROPHYSIOLOGICAL TECHNICIAN Work Phone: [facility] 07-26-2024 09:45-0500 Body weight 103 kg Smiley Suppan PROCESS DESIGN ENGINEER.NEUROPHYSIOLOGICAL TECHNICIAN Work Phone: [facility] 07-26-2024 09:45-0500 Heart rate 102 /min Smiley Suppan PROCESS DESIGN ENGINEER.NEUROPHYSIOLOGICAL TECHNICIAN Work Phone: [facility] 07-26-2024 09:45-0500 Respiratory rate 20 /min Smiley Suppan PROCESS DESIGN ENGINEER.NEUROPHYSIOLOGICAL TECHNICIAN Work Phone: [facility] 07-26-2024 09:45-0500 SaO2% (BldA) [Mass fraction] 97 % Smiley Suppan PROCESS DESIGN ENGINEER.NEUROPHYSIOLOGICAL TECHNICIAN Work Phone: [facility] 04-29-2024 14:40-0400 Diastolic blood pressure 50 mm[Hg] Smiley Suppan PROCESS DESIGN ENGINEER.NEUROPHYSIOLOGICAL TECHNICIAN Work Phone: [facility] 04-29-2024 14:40-0400 Systolic blood pressure 176 mm[Hg] Smiley Suppan PROCESS DESIGN ENGINEER.NEUROPHYSIOLOGICAL TECHNICIAN Work Phone: [facility] 04-29-2024 14:14-0400 Body mass index (BMI) [Ratio] 36.33 kg/m2 Smiley Suppan PROCESS DESIGN ENGINEER.NEUROPHYSIOLOGICAL TECHNICIAN Work Phone: [facility] 04-29-2024 14:14-0400 Body temperature 99.5 [degF] Smiley Suppan PROCESS DESIGN ENGINEER.NEUROPHYSIOLOGICAL TECHNICIAN Work Phone: [facility] 04-29-2024 14:14-0400 Body weight 105.23 kg Smiley Suppan PROCESS DESIGN ENGINEER.NEUROPHYSIOLOGICAL TECHNICIAN Work Phone: [facility] 04-29-2024 14:14-0400 Heart rate 110 /min Smiley Suppan PROCESS DESIGN ENGINEER.NEUROPHYSIOLOGICAL TECHNICIAN Work Phone: [facility] 04-29-2024 14:14-0400 SaO2% (BldA) [Mass fraction] 95 % Smiley Suppan PROCESS DESIGN ENGINEER.NEUROPHYSIOLOGICAL TECHNICIAN Work Phone: [facility] 03-23-2024 12:50-0400 Body mass index (BMI) [Ratio] 35.7 kg/m2 Smiley Suppan PROCESS DESIGN ENGINEER.NEUROPHYSIOLOGICAL TECHNICIAN Work Phone: [facility] 03-23-2024 12:50-0400 Body weight 103.42 kg Smiley Suppan PROCESS DESIGN ENGINEER.NEUROPHYSIOLOGICAL TECHNICIAN Work Phone: [facility] 03-23-2024 12:50-0400 Diastolic blood pressure 80 mm[Hg] Smiley Suppan PROCESS DESIGN ENGINEER.NEUROPHYSIOLOGICAL TECHNICIAN Work Phone: [facility] 03-23-2024 12:50-0400 Heart rate 115 /min Smiley Suppan PROCESS DESIGN ENGINEER.NEUROPHYSIOLOGICAL TECHNICIAN Work Phone: [facility] 03-23-2024 12:50-0400 Respiratory rate 20 /min Smiley Suppan PROCESS DESIGN ENGINEER.NEUROPHYSIOLOGICAL TECHNICIAN Work Phone: [facility] 03-23-2024 12:50-0400 SaO2% (BldA) [Mass fraction] 96 % Smiley Suppan PROCESS DESIGN ENGINEER.NEUROPHYSIOLOGICAL TECHNICIAN Work Phone: [facility] 03-23-2024 12:50-0400 Systolic blood pressure 144 mm[Hg] Smiley Suppan PROCESS DESIGN ENGINEER.NEUROPHYSIOLOGICAL TECHNICIAN Work Phone: [facility] 08-06-2023 13:18-0500 Heart rate 82 /min Dr. Ricci Cole Work Phone: [facility] 08-06-2023 13:18-0500 Respiratory rate 17 /min Dr. Ricci Cole Work Phone: [facility] 08-06-2023 09:51-0500 Body temperature 97.8 [degF] Dr. Ricci Cole Work Phone: [facility] 08-06-2023 09:51-0500 Diastolic blood pressure 77 mm[Hg] Dr. Ricci Cole Work Phone: [facility] 08-06-2023 09:51-0500 SaO2% (BldA) [Mass fraction] 96 % Dr. Ricci Cole Work Phone: [facility] 08-06-2023 09:51-0500 Systolic blood pressure 141 mm[Hg] Dr. Ricci Cole Work Phone: [facility] 08-05-2023 13:05-0500 Body height 170.[address] Ricci Cole Work Phone: [facility] 08-05-2023 13:05-0500 Body weight 104.[address] Ricci Cole Work Phone: [facility] 08-04-2023 21:49-0500 Body mass index (BMI) [Ratio] 36.1 kg/m2 Dr. Ricci Cole Work Phone: [facility] 08-04-2023 18:00-0500 Body temperature 98.1 [degF] [facility] 08-04-2023 18:00-0500 Diastolic blood pressure 70 mm[Hg] [facility] 08-04-2023 18:00-0500 Heart rate 84 /min [facility] 08-04-2023 18:00-0500 Respiratory rate 14 /min [facility] 08-04-2023 18:00-0500 SaO2% (BldA) [Mass fraction] 95 % [facility] 08-04-2023 18:00-0500 Systolic blood pressure 150 mm[Hg] [facility] 08-04-2023 12:53-0500 Body height 170.18 cm [facility] 08-04-2023 12:53-0500 Body mass index (BMI) [Ratio] 36.1 kg/m2 [facility] 08-04-2023 12:53-0500 Body weight 104.5 kg [facility] 07-09-2023 13:34-0500 Body temperature 98.49 [degF] Sophia Fan APRN.NEUROPHYSIOLOGICAL TECHNICIAN Work Phone: [facility] 07-09-2023 13:34-0500 Body weight 102.69 kg Sophia Fan APRN.NEUROPHYSIOLOGICAL TECHNICIAN Work Phone: [facility] 07-09-2023 13:34-0500 Diastolic blood pressure 66 mm[Hg] Sophia Fan APRN.NEUROPHYSIOLOGICAL TECHNICIAN Work Phone: [facility] 07-09-2023 13:34-0500 Heart rate 104 /min Sophia Fan APRN.NEUROPHYSIOLOGICAL TECHNICIAN Work Phone: [facility] 07-09-2023 13:34-0500 Respiratory rate 21 /min Sophia Fan PROCESS DESIGN ENGINEER.NEUROPHYSIOLOGICAL TECHNICIAN Work Phone: [facility] 07-09-2023 13:34-0500 SaO2% (BldA) [Mass fraction] 99 % Sophia Fan APRN.NEUROPHYSIOLOGICAL TECHNICIAN Work Phone: [facility] 07-09-2023 13:34-0500 Systolic blood pressure 132 mm[Hg] Sophia Fan PROCESS DESIGN ENGINEER.NEUROPHYSIOLOGICAL TECHNICIAN Work Phone: [facility] 04-15-2023 10:43-0400 Body weight 99.34 kg Nanci Huber PROCESS DESIGN ENGINEER.NEUROPHYSIOLOGICAL TECHNICIAN Work Phone: [facility] 04-15-2023 10:43-0400 Diastolic blood pressure 78 mm[Hg] Nanci Haagen PROCESS DESIGN ENGINEER.NEUROPHYSIOLOGICAL TECHNICIAN Work Phone: [facility] 04-15-2023 10:43-0400 Heart rate 104 /min Nanci Haagen PROCESS DESIGN ENGINEER.NEUROPHYSIOLOGICAL TECHNICIAN Work Phone: [facility] 04-15-2023 10:43-0400 Respiratory rate 16 /min Nanci Haagen PROCESS DESIGN ENGINEER.NEUROPHYSIOLOGICAL TECHNICIAN Work Phone: [facility] 04-15-2023 10:43-0400 SaO2% (BldA) [Mass fraction] 94 % Nanci Haagen PROCESS DESIGN ENGINEER.NEUROPHYSIOLOGICAL TECHNICIAN Work Phone: [facility] 04-15-2023 10:43-0400 Systolic blood pressure 138 mm[Hg] Nanci Huber APRN.CNP Work Phone: [facility] 11-14-2022 13:05-0400 Respiratory rate 18 /min [facility] 11-14-2022 11:06-0400 Body height 170.18 cm [facility] 11-14-2022 11:06-0400 Body mass index (BMI) [Ratio] 36 kg/m2 [facility] 11-14-2022 11:06-0400 Body temperature 96.3 [degF] [facility] 11-14-2022 11:06-0400 Body weight 104.32 kg [facility] 11-14-2022 11:06-0400 Diastolic blood pressure 98 mm[Hg] [facility] 11-14-2022 11:06-0400 Heart rate 103 /min [facility] 11-14-2022 11:06-0400 SaO2% (BldA) [Mass fraction] 98 % [facility] 11-14-2022 11:06-0400 Systolic blood pressure 172 mm[Hg] [facility] 06-12-2022 10:41-0400 Body temperature 98.8 [degF] Dr. Ricci Cole Work Phone: [facility] Work Phone: 06-12-2022 10:41-0400 Diastolic blood pressure 86 mm[Hg] Dr. Ricci Cole Work Phone: [facility] Work Phone: 06-12-2022 10:41-0400 Heart rate 82 /min Dr. Ricci Cole Work Phone: [facility] Work Phone: 06-12-2022 10:41-0400 Respiratory rate 18 /min Dr. Ricci Cole Work Phone: [facility] Work Phone: 06-12-2022 10:41-0400 SaO2% (BldA) [Mass fraction] 97 % Dr. Ricci Cole Work Phone: [facility] Work Phone: 06-12-2022 10:41-0400 Systolic blood pressure 143 mm[Hg] Dr. Ricci Cole Work Phone: [facility] Work Phone: 06-12-2022 09:19-0400 Body height 170.[address] Ricci Cole Work Phone: [facility] Work Phone: 06-12-2022 09:19-0400 Body mass index (BMI) [Ratio] 36.9 kg/m2 Dr. Ricci Cole Work Phone: [facility] Work Phone: 06-12-2022 09:19-0400 Body weight [address] Ricci Cole Work Phone: [facility] Work Phone: 05-10-2022 12:10-0400 Diastolic blood pressure 80 mm[Hg] Dr. Ricci Cole Work Phone: [facility] Work Phone: 05-10-2022 12:10-0400 Heart rate 79 /min Dr. Ricci Cole Work Phone: [facility] Work Phone: 05-10-2022 12:10-0400 SaO2% (BldA) [Mass fraction] 95 % Dr. Ricci Cole Work Phone: [facility] Work Phone: 05-10-2022 12:10-0400 Systolic blood pressure 157 mm[Hg] Dr. Ricci Cole Work Phone: [facility] Work Phone: 05-10-2022 11:09-0400 Body height 170.[address] Ricci Cole Work Phone: [facility] Work Phone: 05-10-2022 11:09-0400 Body temperature 97.1 [degF] Dr. Ricci Cole Work Phone: [facility] Work Phone: 05-10-2022 11:09-0400 Respiratory rate 16 /min Dr. Ricci Cole Work Phone: [facility] Work Phone: 05-09-2022 11:49-0400 Diastolic blood pressure 80 mm[Hg] Dr. Ricci Cole Work Phone: [facility] Work Phone: 05-09-2022 11:49-0400 Heart rate 84 /min Dr. Ricci Cole Work Phone: [facility] Work Phone: 05-09-2022 11:49-0400 Systolic blood pressure 149 mm[Hg] Dr. Ricci Cole Work Phone: [facility] Work Phone: 05-09-2022 10:58-0400 Body height 170.[address] Ricci Cole Work Phone: [facility] Work Phone: 05-09-2022 10:58-0400 Body temperature 97.1 [degF] Dr. Ricci Cole Work Phone: [facility] Work Phone: 05-09-2022 10:58-0400 Respiratory rate 16 /min Dr. Ricci Cole Work Phone: [facility] Work Phone: 05-09-2022 10:58-0400 SaO2% (BldA) [Mass fraction] 96 % Dr. Ricci Cole Work Phone: [facility] Work Phone: 05-08-2022 14:07-0400 Body temperature 97.1 [degF] Dr. Ricci Cole Work Phone: [facility] Work Phone: 05-08-2022 14:07-0400 Diastolic blood pressure 72 mm[Hg] Dr. Ricci Cole Work Phone: [facility] Work Phone: 05-08-2022 14:07-0400 Heart rate 80 /min Dr. Ricci Cole Work Phone: [facility] Work Phone: 05-08-2022 14:07-0400 Respiratory rate 16 /min Dr. Ricci Cole Work Phone: [facility] Work Phone: 05-08-2022 14:07-0400 SaO2% (BldA) [Mass fraction] 95 % Dr. Ricci Cole Work Phone: [facility] Work Phone: 05-08-2022 14:07-0400 Systolic blood pressure 167 mm[Hg] Dr. Ricci Cole Work Phone: [facility] Work Phone: 05-08-2022 13:02-0400 Body mass index (BMI) [Ratio] 49.4 kg/m2 Dr. Ricci Cole Work Phone: [facility] Work Phone: 05-08-2022 13:02-0400 Body weight 145.[address] Ricci Cole Work Phone: [facility] Work Phone: 05-07-2022 12:02-0400 Diastolic blood pressure 75 mm[Hg] Dr. Ricci Cole Work Phone: [facility] Work Phone: 05-07-2022 12:02-0400 Heart rate 78 /min Dr. Ricci Cole Work Phone: [facility] Work Phone: 05-07-2022 12:02-0400 Systolic blood pressure 158 mm[Hg] Dr. Ricci Cole Work Phone: [facility] Work Phone: 05-07-2022 10:55-0400 Body mass index (BMI) [Ratio] 49.4 kg/m2 Dr. Ricci Cole Work Phone: [facility] Work Phone: 05-07-2022 10:55-0400 Body temperature 97.3 [degF] Dr. Ricci Cole Work Phone: [facility] Work Phone: 05-07-2022 10:55-0400 Body weight 145.[address] Ricci Cole Work Phone: [facility] Work Phone: 05-07-2022 10:55-0400 Respiratory rate 16 /min Dr. Ricci Cole Work Phone: [facility] Work Phone: 05-07-2022 10:55-0400 SaO2% (BldA) [Mass fraction] 96 % Dr. Ricci Cole Work Phone: [facility] Work Phone: 05-06-2022 12:36-0400 Body temperature 97.3 [degF] Dr. Ricci Cole Work Phone: [facility] Work Phone: 05-06-2022 12:36-0400 Diastolic blood pressure 85 mm[Hg] Dr. Ricci Cole Work Phone: [facility] Work Phone: 05-06-2022 12:36-0400 Heart rate 81 /min Dr. Ricci Cole Work Phone: [facility] Work Phone: 05-06-2022 12:36-0400 Respiratory rate 16 /min Dr. Ricci Cole Work Phone: [facility] Work Phone: 05-06-2022 12:36-0400 SaO2% (BldA) [Mass fraction] 95 % Dr. Ricci Cole Work Phone: [facility] Work Phone: 05-06-2022 12:36-0400 Systolic blood pressure 146 mm[Hg] Dr. Ricci Cole Work Phone: [facility] Work Phone: 05-06-2022 11:01-0400 Body mass index (BMI) [Ratio] 21.9 kg/m2 Dr. Ricci Cole Work Phone: [facility] Work Phone: 05-06-2022 11:01-0400 Body weight 63.[address] Ricci Cole Work Phone: [facility] Work Phone: 05-05-2022 10:58-0400 Body temperature 98.7 [degF] Dr. Ricci Cole Work Phone: [facility] Work Phone: 05-05-2022 10:58-0400 Diastolic blood pressure 70 mm[Hg] Dr. Ricci Cole Work Phone: [facility] Work Phone: 05-05-2022 10:58-0400 Heart rate 80 /min Dr. Ricci Cole Work Phone: [facility] Work Phone: 05-05-2022 10:58-0400 Respiratory rate 18 /min Dr. Ricci Cole Work Phone: [facility] Work Phone: 05-05-2022 10:58-0400 SaO2% (BldA) [Mass fraction] 98 % Dr. Ricci Cole Work Phone: [facility] Work Phone: 05-05-2022 10:58-0400 Systolic blood pressure 143 mm[Hg] Dr. Ricci Cole Work Phone: [facility] Work Phone: 05-04-2022 11:33-0400 Body temperature 99.3 [degF] Dr. Ricci Cole Work Phone: [facility] Work Phone: 05-04-2022 11:33-0400 Diastolic blood pressure 86 mm[Hg] Dr. Ricci Cole Work Phone: [facility] Work Phone: 05-04-2022 11:33-0400 Heart rate 71 /min Dr. Ricci Cole Work Phone: [facility] Work Phone: 05-04-2022 11:33-0400 Respiratory rate 18 /min Dr. Ricci Cole Work Phone: [facility] Work Phone: 05-04-2022 11:33-0400 SaO2% (BldA) [Mass fraction] 96 % Dr. Ricci Cole Work Phone: [facility] Work Phone: 05-04-2022 11:33-0400 Systolic blood pressure 132 mm[Hg] Dr. Ricci Cole Work Phone: [facility] Work Phone: 05-03-2022 14:30-0400 Body temperature 98 [degF] Dr. Ricci Cole Work Phone: [facility] Work Phone: 05-03-2022 14:30-0400 Diastolic blood pressure 87 mm[Hg] Dr. Ricci Cole Work Phone: [facility] Work Phone: 05-03-2022 14:30-0400 Heart rate 82 /min Dr. Ricci Cole Work Phone: [facility] Work Phone: 05-03-2022 14:30-0400 Respiratory rate 18 /min Dr. Ricci Cole Work Phone: [facility] Work Phone: 05-03-2022 14:30-0400 SaO2% (BldA) [Mass fraction] 95 % Dr. Ricci Cole Work Phone: [facility] Work Phone: 05-03-2022 14:30-0400 Systolic blood pressure 159 mm[Hg] Dr. Ricci Cole Work Phone: [facility] Work Phone: 05-03-2022 10:26-0400 Body height [address] Ricci Cole Work Phone: [facility] Work Phone: 05-03-2022 10:26-0400 Body weight 108.[address] Ricci Cole Work Phone: [facility] Work Phone: 05-01-2022 01:25-0400 Body mass index (BMI) [Ratio] 37.4 kg/m2 Dr. Ricci Cole Work Phone: [facility] Work Phone: 05-01-2022 00:17-0400 Body temperature 98.4 [degF] Dr. Ricci Cole Work Phone: [facility] Work Phone: 05-01-2022 00:17-0400 Diastolic blood pressure 73 mm[Hg] Dr. Ricci Cole Work Phone: [facility] Work Phone: 05-01-2022 00:17-0400 Heart rate 94 /min Dr. Ricci Cole Work Phone: [facility] Work Phone: 05-01-2022 00:17-0400 Respiratory rate 20 /min Dr. Ricci Cole Work Phone: [facility] Work Phone: 05-01-2022 00:17-0400 SaO2% (BldA) [Mass fraction] 94 % Dr. Ricci Cole Work Phone: [facility] Work Phone: 05-01-2022 00:17-0400 Systolic blood pressure 143 mm[Hg] Dr. Ricci Cole Work Phone: [facility] Work Phone: 04-30-2022 21:54-0400 Body height 170.[address] Ricci Cole Work Phone: [facility] Work Phone: 04-30-2022 21:54-0400 Body mass index (BMI) [Ratio] 38.2 kg/m2 Dr. Ricci Cole Work Phone: [facility] Work Phone: 04-30-2022 21:54-0400 Body weight 110.[address] Ricci Cole Work Phone: [facility] Work Phone: 01-29-2022 11:15-0400 Body weight 108.41 kg NA Holland PA-C Work Phone: [facility] 01-29-2022 11:15-0400 Diastolic blood pressure 82 mm[Hg] NA Holland PA-C Work Phone: [facility] 01-29-2022 11:15-0400 Heart rate 90 /min NA Holland PA-C Work Phone: [facility] 01-29-2022 11:15-0400 Respiratory rate 20 /min NA Holland PA-C Work Phone: [facility] 01-29-2022 11:15-0400 SaO2% (BldA) [Mass fraction] 98 % NA Holland PA-C Work Phone: [facility] 01-29-2022 11:15-0400 Systolic blood pressure 128 mm[Hg] NA Holland PA-C Work Phone: [facility] 01-22-2022 16:24-0400 Body temperature 97.8 [degF] Dr. Ricci Cole Work Phone: [facility] Work Phone: 01-22-2022 16:24-0400 Diastolic blood pressure 57 mm[Hg] Dr. Ricci oCle Work Phone: [facility] Work Phone: 01-22-2022 16:24-0400 Heart rate 62 /min Dr. Ricci Cole Work Phone: [facility] Work Phone: 01-22-2022 16:24-0400 Inhaled oxygen flow rate 2 L/min Dr. Ricci Cole Work Phone: [facility] Work Phone: 01-22-2022 16:24-0400 Respiratory rate 16 /min Dr. Ricci Cole Work Phone: [facility] Work Phone: 01-22-2022 16:24-0400 SaO2% (BldA) [Mass fraction] 97 % Dr. Ricci Cole Work Phone: [facility] Work Phone: 01-22-2022 16:24-0400 Systolic blood pressure 140 mm[Hg] Dr. Ricci Cole Work Phone: [facility] Work Phone: 01-22-2022 16:04-0400 Body temperature 98.2 [degF] Dr. Ricci Cole Work Phone: [facility] Work Phone: 01-22-2022 16:04-0400 Diastolic blood pressure 72 mm[Hg] Dr. Ricci Cole Work Phone: [facility] Work Phone: 01-22-2022 16:04-0400 Heart rate 79 /min Dr. Ricci Cole Work Phone: [facility] Work Phone: 01-22-2022 16:04-0400 Respiratory rate 17 /min Dr. Ricci Cole Work Phone: [facility] Work Phone: 01-22-2022 16:04-0400 SaO2% (BldA) [Mass fraction] 92 % Dr. Ricci Cole Work Phone: [facility] Work Phone: 01-22-2022 16:04-0400 Systolic blood pressure 156 mm[Hg] Dr. Ricci Cole Work Phone: [facility] Work Phone: 01-17-2022 18:38-0400 Body height 170.[address] Ricci Cole Work Phone: [facility] Work Phone: 01-17-2022 18:38-0400 Body mass index (BMI) [Ratio] 38.9 kg/m2 Dr. Ricci Cole Work Phone: [facility] Work Phone: 01-17-2022 18:38-0400 Body weight 112.[address] Ricci Cole Work Phone: [facility] Work Phone: 01-17-2022 16:43-0400 Diastolic blood pressure 70 mm[Hg] Dr. Ricci Cole Work Phone: [facility] Work Phone: 01-17-2022 16:43-0400 Systolic blood pressure 146 mm[Hg] Dr. Ricci Cole Work Phone: [facility] Work Phone: 01-17-2022 15:00-0400 Body mass index (BMI) [Ratio] 38 kg/m2 Dr. Ricci Cole Work Phone: [facility] Work Phone: 01-17-2022 15:00-0400 Body temperature 98.2 [degF] Dr. Ricci Cole Work Phone: [facility] Work Phone: 01-17-2022 15:00-0400 Body weight 109.[address] Ricci Cole Work Phone: [facility] Work Phone: 01-17-2022 15:00-0400 Heart rate 112 /min Dr. Ricci Cole Work Phone: [facility] Work Phone: 01-17-2022 15:00-0400 Respiratory rate 18 /min Dr. Ricci Cole Work Phone: [facility] Work Phone: 01-17-2022 15:00-0400 SaO2% (BldA) [Mass fraction] 95 % Dr. Ricci Cole Work Phone: [facility] Work Phone: 01-05-2022 10:50-0400 Diastolic blood pressure 80 mm[Hg] Ricci Cole MD Work Phone: [facility] 01-05-2022 10:50-0400 Systolic blood pressure 150 mm[Hg] Ricci Cole MD Work Phone: [facility] 01-05-2022 10:11-0400 Body temperature 98.1 [degF] Ricci Cole MD Work Phone: [facility] 01-05-2022 10:11-0400 Body weight 107.96 kg Ricci Cole MD Work Phone: [facility] 01-05-2022 10:11-0400 Heart rate 96 /min Ricci Cole MD Work Phone: [facility] 01-02-2022 11:41-0400 Body temperature 98.4 [degF] [facility] Work Phone: 01-02-2022 11:41-0400 Diastolic blood pressure 92 mm[Hg] [facility] Work Phone: 01-02-2022 11:41-0400 Heart rate 99 /min [facility] Work Phone: 01-02-2022 11:41-0400 Respiratory rate 22 /min [facility] Work Phone: 01-02-2022 11:41-0400 SaO2% (BldA) [Mass fraction] 96 % [facility] Work Phone: 01-02-2022 11:41-0400 Systolic blood pressure 142 mm[Hg] [facility] Work Phone: 01-02-2022 11:16-0400 Body height 167.64 cm [facility] Work Phone: 01-02-2022 11:16-0400 Body mass index (BMI) [Ratio] 37.9 kg/m2 [facility] Work Phone: 01-02-2022 11:16-0400 Body weight 106.59 kg [facility] Work Phone: 12-18-2021 10:15-0400 Body temperature 98.49 [degF] NA Holland PA-C Work Phone: [facility] 12-18-2021 10:15-0400 Body weight 107.96 kg NA Holland PA-C Work Phone: [facility] 12-18-2021 10:15-0400 Diastolic blood pressure 78 mm[Hg] NA Holland PA-C Work Phone: [facility] 12-18-2021 10:15-0400 Heart rate 103 /min NA Holland PA-C Work Phone: [facility] 12-18-2021 10:15-0400 Respiratory rate 24 /min NA Holland PA-C Work Phone: [facility] 12-18-2021 10:15-0400 SaO2% (BldA) [Mass fraction] 97 % NA Holland PA-C Work Phone: [facility] 12-18-2021 10:15-0400 Systolic blood pressure 160 mm[Hg] NA Holland PA-C Work Phone: [facility] 11-22-2021 13:54-0400 Diastolic blood pressure 98 mm[Hg] Joyce Perry PA-C Work Phone: [facility] 11-22-2021 13:54-0400 Systolic blood pressure 168 mm[Hg] Joyce Perry PA-C Work Phone: [facility] 11-22-2021 13:36-0400 Body weight 108.41 kg Joyce Perry PA-C Work Phone: [facility] 11-22-2021 13:36-0400 Heart rate 101 /min Joyce Perry PA-C Work Phone: [facility] 11-22-2021 13:36-0400 SaO2% (BldA) [Mass fraction] 95 % Joyce Perry PA-C Work Phone: [facility] Encounters Encounter Date Encounter Type Care Provider Facility Start: 05-15-2025 End: 05-15-2025 Emergency department patient visit Bhavinkamran Quinn DO -Emergency Department Work Phone: Start: 05-10-2025 End: 05-10-2025 Refill Smiley A Suppan PROCESS DESIGN ENGINEER.NEUROPHYSIOLOGICAL TECHNICIAN Work Phone: [facility] Comment on above: Refill Request Insurance [place] Start: 05-06-2025 End: 05-06-2025 Office outpatient visit 25 minutes Msiley A Suppan PROCESS DESIGN ENGINEER.NEUROPHYSIOLOGICAL TECHNICIAN Work Phone: [facility] Comment on above: Gastroenteritis (Josiane aurelia Dx); Primary hypertension; Tobacco use disorder; Uncontrolled type 2 diabetes mellitus with hyperglycemia (HCC); Vitamin B12 deficiency; Vitamin D deficiency Start: 05-06-2025 End: 05-06-2025 ambulatory SMILEY A SUPPAN Facility:[facility] Start: 2025 End: 2025 Telephone encounter Smiley A Suppan PROCESS DESIGN ENGINEER.NEUROPHYSIOLOGICAL TECHNICIAN Work Phone: [facility] Comment on above: Patient Question Start: 04-04-2025 End: 04-04-2025 Refill Ricci Cole MD Work Phone: [facility] Comment on above: Refill Request Start: 03-29-2025 End: 03-29-2025 ambulatory RICCI COLE Facility:[facility] Start: 03-24-2025 End: 03-24-2025 Telephone encounter Ricci Cole MD Work Phone: [facility] Comment on above: Incontinent supplies denied request Start: 03-10-2025 End: 03-10-2025 Office outpatient visit 15 minutes Smiley A Suppan PROCESS DESIGN ENGINEER.NEUROPHYSIOLOGICAL TECHNICIAN Work Phone: [facility] Comment on above: Acute bronchitis, un specified organism (Primary Dx); Recurrent UTI (urinary tract infection) Start: 03-10-2025 End: 03-10-2025 ambulatory SMILEY A SUPPAN Facility:[facility] Start: 03-09-2025 End: 03-09-2025 Telephone encounter Ricci Cole MD Work Phone: [facility] Comment on above: Medication Request; Patient Update Start: 03-08-2025 End: 03-08-2025 Refill Ricci Cole MD Work Phone: [facility] Comment on above: Refill Request Start: 03-03-2025 End: 03-04-2025 Refill Smiley A Suppan PROCESS DESIGN ENGINEER.NEUROPHYSIOLOGICAL TECHNICIAN Work Phone: [facility] Comment on above: Refill Request Results Start: 03-01-2025 End: 03-01-2025 Transitional care manage srvc 14 day discharge Smiley A Suppan PROCESS DESIGN ENGINEER.NEUROPHYSIOLOGICAL TECHNICIAN Work Phone: [facility] Comment on above: Dysuria (Primary Dx) ; [...] 03-01-2025 End: 03-01-2025 ambulatory SMILEY A SUPPAN Facility:[facility] Start: 02-22-2025 Non-patient / Non-visit Dr. Edgar Oropeza MD -[facility] Work Phone: Start: 02-15-2025 End: 03-18-2025 ambulatory Ricci Cole MD Work Phone: [facility] [place] Start: 01-25-2025 End: 01-25-2025 Telephone encounter Ricci Cole MD Work Phone: [facility] [place] Comment on above: requesting medicatio n that is Start: 01-03-2025 End: 01-03-2025 ambulatory Lou Osman MA [facility] [place] Start: 01-03-2025 End: 01-03-2025 Patient encounter procedure Lou Osman MA [employer] [facility] [place] Comment on above: Population Health Na vigation Outreach ( [facility] Start: 12-24-2024 End: 12-24-2024 Refill Ricci Cole MD Work Phone: [facility] [place] Comment on above: Refill Request Start: 12-23-2024 End: 12-28-2024 Telephone encounter Ricci Cole MD Work Phone: [facility] [place] Comment on above: Orders (Incontinence supplies) Start: 11-10-2024 End: 11-10-2024 ambulatory Ricci Cole MD Work Phone: [facility] [place] Comment on above: UTI; URI Start: 10-19-2024 End: 10-19-2024 Refill Ricci Cole MD Work Phone: [facility] [place] Comment on above: Refill Request Start: 10-05-2024 End: 10-05-2024 Refill Ricci Cole MD Work Phone: [facility] [place] Comment on above: Refill Request Start: 09-22-2024 End: 09-22-2024 Refill Ricci Cole MD Work Phone: [facility] [place] Comment on above: Refill Request Start: 07-29-2024 [...] 07-26-2024 Refill Ricci Cole MD Work Phone: [facility] [place] Comment on above: Refill Request Start: 07-19-2024 End: 07-19-2024 ambulatory Herson Ashford RN Work Phone: [employer] Comment on above: community monitoring outreach (CDM-Telephonic outreach) Start: 07-16-2024 End: 07-16-2024 ambulatory Herson Ashford RN Work Phone: [employer]acting Machine Operator/[employer] Management Comment on above: community monitoring outreach (CDM-Telephonic outreach) Start: 07-14-2024 End: 07-14-2024 ambulatory Herson Ashford RN Work Phone: [employer] Operator/[employer] Comment on above: community monitoring outreach (CDM-Telephonic outreach) Start: 06-16-2024 End: 06-16-2024 ambulatory Herson Ashford RN Work Phone: [employer] Comment on above: community monitoring outreach (CDM-Telephonic outreach) Start: 06-10-2024 End: 06-10-2024 ambulatory Herson Ashford RN Work Phone: [employer] Machine Operator/[employer] Management Comment on above: community monitoring outreach (CDM-Telephonic outreach) Start: 06-09-2024 End: 06-09-2024 Refill Ricci Cole MD Work Phone: [facility] [place] Comment on above: Refill Request Start: 06-08-2024 End: 06-08-2024 ambulatory Herson Ashford RN Work Phone: [employer]acting Machine Operator/[employer] Management Comment on above: community monitoring outreach (CDM-Telephonic outreach) Start: 06-07-2024 End: 06-07-2024 ambulatory Herson Ashford RN Work Phone: [employer] Operator/[employer] Management Comment on above: community monitoring outreach (CDM-Telephonic outreach) Start: 05-13-2024 End: 05-13-2024 Telephone encounter Smiley Melo APRN.NEUROPHYSIOLOGICAL TECHNICIAN Work Phone: [facility] [place] Start: 05-11-2024 End: 05-12-2024 Telephone encounter Smiley Melo APRN.NEUROPHYSIOLOGICAL TECHNICIAN Work Phone: [facility] [place] Comment on above: Results; Orders Start: 05-10-2024 End: 05-10-2024 Refill Ricci Cole MD Work Phone: [facility] [place] Comment on above: Refill Request Start: 05-05-2024 End: 05-05-2024 ambulatory Herson Ashford RN Work Phone: [employer] Management Comment on above: community monitoring outreach (CDM-Telephonic outreach) Start: 05-04-2024 End: 05-04-2024 ambulatory Herson Ashford RN Work Phone: [employer] Comment on above: community monitoring outreach (CDM-Telephonic outreach) Start: 05-03-2024 End: 05-03-2024 Telephone encounter Smiley Melo APRN.NEUROPHYSIOLOGICAL TECHNICIAN Work Phone: [facility] Start: 04-29-2024 End: 04-29-2024 Office outpatient visit 25 minutes Smiley Melo APRN.NEUROPHYSIOLOGICAL TECHNICIAN Work Phone: 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 [place] Comment on above: Refill Request Start: 04-22-2024 End: 04-29-2024 Telephone encounter Ricci Cole MD Work Phone: [facility] [place] Comment on above: Incontinence Supplie s Start: 04-20-2024 End: 04-20-2024 Refill Ricci Cole MD Work Phone: [facility] [place] Comment on above: Refill Request Start: 04-12-2024 End: 04-12-2024 Refill Ricci Cole MD Work Phone: [facility] [place] Comment on above: Refill Request Start: 04-06-2024 ambulatory Herson Ashford RN Work Phone: [employer]acting Machine Operator/[employer] Management Comment on above: community monitoring outreach (CDM-Telephonic outreach) Start: 04-02-2024 Refill Ricci Cole MD Work Phone: [facility] [place] Comment on above: Refill Request community monitoring outreach (CDM-Telephonic outreach) Start: 03-25-2024 Telephone encounter Smliey Melo PROCESS DESIGN ENGINEER.NEUROPHYSIOLOGICAL TECHNICIAN Work Phone: [facility] Comment on above: Results Start: 03-24-2024 Refill Ricci Cole MD Work Phone: [facility] [place] Comment on above: Refill Request Start: 03-23-2024 End: 03-23-2024 Office outpatient visit 15 minutes Smiley Melo PROCESS DESIGN ENGINEER.NEUROPHYSIOLOGICAL TECHNICIAN Work Phone: [facility] [place] Comment on above: Dysuria (Primary Dx) ; Cutaneous candidiasis; Tinea corporis Start: 03-22-2024 End: 03-22-2024 ambulatory Nurse Intm/Famp Triage [facility] Work Phone: Nurse Phone Triage Comment on above: urinary symptoms Start: 03-17-2024 ambulatory Ricci Cole MD Work Phone: Internal Medicine [facility] Start: 03-16-2024 Refill Ricci Cole MD Work Phone: [facility] Comment on above: Refill Request Start: 03-08-2024 Refill Ricci Cole MD Work Phone: [facility] [place] Comment on above: Refill Request Start: 03-05-2024 ambulatory Herson Ashford RN Work Phone: Compacting Machine Operator/T[employer] Management Comment on above: community monitoring outreach (CDM-Telephonic outreach) Start: 02-20-2024 Refill Ricci Cole MD Work Phone: [facility] Comment on above: Refill Request Start: 02-05-2024 ambulatory Herson Ashford RN Work Phone: [employer]acting Machine Operator/[employer] Management Comment on above: community monitoring outreach (CDM-Telephonic outreach) Start: 02-04-2024 Refill Ricci Cole MD Work Phone: [facility] Comment on above: Refill Request community monitoring outreach (CDM-Telephonic outreach) Start: 01-30-2024 ambulatory Herson Ashford RN Work Phone: [employer] Operator/[employer] Management Comment on above: community monitoring outreach (CDM-Telephonic outreach) Start: 01-05-2024 Refill Ricci Cole MD Work Phone: [facility] [place] Comment on above: Refill Request Start: 12-31-2023 ambulatory Herson Ashford RN Work Phone: [employer] Operator/[employer] Management Comment on above: community monitoring outreach (CDM-Telephonic outreach) Start: 12-29-2023 ambulatory Marguerite Ortiz RN NURS E [facility] Comment on above: UTI Start: 12-11-2023 Refill Ricci Cole MD Work Phone: [facility] [place] Comment on above: Refill Request Start: 12-02-2023 ambulatory Herson Ashford RN Work Phone: [employer]acting Machine Operator/[employer] Management Comment on above: community monitoring outreach (CDM-Telephonic outreach) Start: 11-25-2023 Refill Ricci Cole MD Work Phone: [facility] Comment on above: Refill Request Start: 10-29-2023 ambulatory Herson Ashford RN Work Phone: Compacting Machine Operator/[employer] Management Comment on above: community monitoring outreach (CDM-Telephonic outreach) Start: 10-10-2023 Refill Ricci Cole MD Work Phone: [facility] Comment on above: Refill Request Start: 09-29-2023 ambulatory Hreson Ashford RN Work Phone: Compacting Machine Operator/T[employer] Management Comment on above: community monitoring outreach (CDM-Telephonic outreach) Start: 09-26-2023 Refill Ricci Cole MD Work Phone: [facility] Comment on above: Refill Request Start: 09-04-2023 End: 09-04-2023 Subsequent hospital visit by physician Xr [facility] Work Phone: Radiology Comment on above: Subacute cough [R05. 2] Start: 08-08-2023 Refill Ricci Cole MD Work Phone: [facility] Comment on above: Refill Request Transition Of Care Start: 08-06-2023 Non-patient / Non-visit Dr. Sari Cole Work Phone: [facility] Work Phone: Start: 08-05-2023 Non-patient / Non-visit Dr. Sari Cole Work Phone: [facility] Work Phone: Start: 08-04-2023 End: 08-06-2023 Evaluation and management of inpatient [facility] Work Phone: Start: 07-28-2023 ambulatory Herson Ashford RN Work Phone: Compacting Machine Operator/[employer] Management Comment on above: community monitoring outreach (CDM-Telephonic outreach) Start: 07-23-2023 ambulatory Herson Ashford RN Work Phone: Compacting Machine Operator/T[employer] Management Comment on above: community monitoring outreach (CDM-Telephonic outreach) Start: 07-21-2023 Refill Ricci Cole MD Work Phone: [facility] [place] Comment on above: Refill Request Start: 07-14-2023 Refill Ricci Cole MD Work Phone: [facility] [place] Comment on above: Refill Request Start: 07-09-2023 End: 07-09-2023 Patient encounter procedure Sophia Fan APRN.NEUROPHYSIOLOGICAL TECHNICIAN Work Phone: [facility] Comment on above: Urinary frequency (P rimary Dx) Start: 07-01-2023 Telephone encounter Ricci Cole MD Work Phone: [facility] [place] Comment on above: Refill Request Start: 06-13-2023 ambulatory Herson Ashford RN Work Phone: Compacting Machine Operator/T[employer] Management Comment on above: community monitoring outreach (CDM-Telephonic outreach) Start: 06-11-2023 Refill Ricci Cole MD Work Phone: [facility] [place] Comment on above: Refill Request Start: 06-02-2023 ambulatory Lou Shrestha [facility] [place] Comment on above: Population Health Na vigation Outreach (ACO BP AND DM) Start: 05-13-2023 ambulatory Herson Ashford RN Work Phone: Compacting Machine Operator/Tender Management Comment on above: community monitoring outreach (CDM-Telephonic outreach) Start: 05-07-2023 Refill Ricci Cole MD Work Phone: [facility] [place] Comment on above: Refill Request Start: 05-06-2023 Telephone encounter Ricci Cole MD Work Phone: [facility] [place] Comment on above: Forms Start: 04-23-2023 Telephone encounter Ricci Cole MD Work Phone: [facility] [place] Comment on above: Forms Start: 04-18-2023 Telephone encounter Nanci miller APRN.NEUROPHYSIOLOGICAL TECHNICIAN Work Phone: [facility] [place] Comment on [...] 04-10-2023 ambulatory Herson Ashford RN Work Phone: Compacting Machine Operator/T[employer] Management Comment on above: community monitoring outreach (CDM-Telephonic outreach) Start: 04-09-2023 Telephone encounter Ricci Cole MD Work Phone: [facility] [place] Comment on above: Appointment Start: 2023 Refill Ricci Cole MD Work Phone: [facility] [place] Comment on above: Refill Request Start: 04-02-2023 Telephone encounter Ricci Cole MD Work Phone: [facility] [place] Comment on above: Forms Start: 03-27-2023 Telephone encounter Ricci Cole MD Work Phone: [facility] [place] Comment on above: Patient Question Start: 03-24-2023 Refill Ricci Cole MD Work Phone: [facility] [place] Comment on above: Refill Request Start: 03-13-2023 Social Work Lynn [facility] Comment on above: Needs assistance wit h community resources (Primary Dx); Assistance needed with transportation Start: 03-11-2023 ambulatory Herson Ashford RN Work Phone: [employer] Operator[employer] Management Comment on above: community monitoring outreach (CDM-Telephonic outreach) Start: 02-24-2023 Telephone encounter Ricci Cole MD Work Phone: [facility] Comment on above: Medication Request Start: 02-17-2023 Refill Ricci Cole MD Work Phone: [facility] [place] Comment on above: Refill Request Start: 02-03-2023 Refill Ricci Cole MD Work Phone: [facility] Comment on above: Refill Request Start: 01-22-2023 Refill Ricci Cole MD Work Phone: [facility] Comment on above: Refill Request; Refi ll Request Start: 01-14-2023 [facility] Comment on above: Population Health Na vigation Outreach (LARY J[facility] PCSA/) Start: 01-01-2023 Refill Ricci Cole MD Work Phone: [facility] [place] Comment on above: Refill Request Start: 12-11-2022 ambulatory Ricci Cole MD Work Phone: [facility] [place] Start: 12-06-2022 ambulatory Herson Ashford RN Work Phone: Compacting Machine Operator/T[employer] Management Comment on above: community monitoring outreach (CDM-Telephonic outreach) Start: 11-25-2022 Refill Ricci Cole MD Work Phone: [facility] Comment on above: Refill Request Start: 11-14-2022 End: 11-14-2022 Emergency department patient visit [facility] Start: 11-11-2022 ambulatory Herson Ashford RN Work Phone: Compacting Machine Operator/T[employer] Management Comment on above: community monitoring outreach (CDM-Telephonic outreach) Start: 11-05-2022 Refill Ricci Cole MD Work Phone: [facility] [place] Comment on above: Refill Request Start: 10-07-2022 ambulatory Herson Ashford RN Work Phone: Compacting Machine Operator/[employer] Management Comment on above: community monitoring outreach (CDM-telephonic outreach) Start: 09-05-2022 ambulatory Hersno Ashford RN Work Phone: [facility] Start: 09-05-2022 Follow-up encounter Herson beltran RN Work Phone: Compacting Machine Operator/T[employer] Management Comment on above: community monitoring outreach (CDM-Insight escalation follow up call) Start: 09-04-2022 ambulatory Brittany sargent MD Work Phone: [facility] Comment on above: Nausea Start: 09-04-2022 Telemedicine consultation with patient Brittany Sam MD Work Phone: MAIN VIRTUAL VISIT Start: 09-03-2022 ambulatory Herson Ashford RN Work Phone: [employer] Comment on above: community monitoring outreach (CDM-Telephonic outreach/) Start: 08-12-2022 Refill Ricci Cole MD Work Phone: [facility] [place] Comment on above: Refill Request Start: 07-31-2022 Refill Ricci Cole MD Work Phone: [facility] Comment on above: Refill Request Start: 07-30-2022 ambulatory Herson Ashford RN Work Phone: Compacting Machine Operator/[employer] Management Comment on above: community monitoring outreach (CDM telephonic outreach) Start: 07-24-2022 Refill Ricci Cole MD Work Phone: [facility] [place] Comment on above: Refill Request Start: 07-11-2022 Refill Ricci Cole MD Work Phone: [address] [place] [address] Comment on above: Refill Request Start: 06-27-2022 Refill Ricci Cole MD Work Phone: [facility] [place] Comment on above: Refill Request Start: 06-25-2022 Refill Ricci Cole MD Work Phone: [facility] Comment on above: Refill Request Patient Update Start: 06-24-2022 Refill Ricci Cloe MD Work Phone: [facility] [place] Comment on above: Refill Request Start: 06-19-2022 ambulatory Sho Hebert RN Work Phone: Compacting Machine Operator/T[employer] Management Comment on above: Community Monitoring Outreach (CDM Telephonic) Start: 06-12-2022 Non-patient / Non-visit Dr. Sari Cole Work Phone: [facility] Start: 06-12-2022 End: 06-12-2022 Admission to same day surgery center Dr. Ricci Cole Work Phone: [facility]-Endoscopy Start: 06-12-2022 End: 06-12-[address] Ricci Cole Work Phone: [facility] Work Phone: Start: 06-05-2022 ambulatory Sho Hebert RN Work Phone: Compacting Machine Operator/[employer] Management Comment on above: Community Monitoring Outreach (CDM Telephonic) Start: 05-28-2022 Refill Ricci Cole MD Work Phone: [facility] Comment on above: Refill Request Start: 05-11-2022 End: 05-11-[address] Ricci Cole Work Phone: [facility]-Medical Out Start: 05-10-2022 End: 05-10-[address] Ricci Cole Work Phone: [facility] Work Phone: Start: 05-10-2022 End: 05-10-[address] Ricci oCle Work Phone: [facility]Medical Out Start: 05-09-2022 End: 05-09-[address] Ricci Cole Work Phone: [facility] Work Phone: Start: 05-09-2022 End: 05-09-[address] Ricci Cole Work Phone: [facility]Medical Out Start: 05-08-2022 End: 05-08-[address] Ricci Cole Work Phone: [facility] Work Phone: Start: 05-08-2022 End: 05-08-[address] Ricci Cole Work Phone: [facility] Start: 05-07-2022 End: 05-07-[address] Ricci Cole Work Phone: [facility] Work Phone: Start: 05-07-2022 End: 05-07-[address] Ricci Cole Work Phone: [facility] Start: 05-06-2022 End: 05-06-2022 Patient Outreach Ricci Cole MD Work Phone: [facility] Comment on above: Transition Of Care Start: 05-06-2022 End: 05-06-[address] Ricci Cole Work Phone: [facility] Start: 05-05-2022 End: 05-05-[address] Ricci Cole Work Phone: [facility] Work Phone: Start: 05-05-2022 End: 05-05-[address] Ricci Cole Work Phone: [facility] Start: 05-04-2022 End: 05-04-[address] Ricci Cole Work Phone: [facility] Start: 05-03-2022 Telephone encounter Ricci Cole MD Work Phone: [facility] Comment on above: Orders; Follow HH Or ders Start: 05-03-2022 Non-patient / Non-visit Dr. Sari Cole Work Phone: [facility] Start: 05-02-2022 Non-patient / Non-visit Dr. Sari Cole Work Phone: [facility] Start: 05-01-2022 ambulatory Sho Hebert RN Work Phone: [employer] Comment on above: Community Monitoring Outreach (CDM Telephonic) Start: 05-01-2022 Non-patient / Non-visit Dr. Sari Cole Work Phone: [facility] Start: 05-01-2022 End: 05-03-2022 Evaluation and management of inpatient [facility] Start: 04-30-2022 ambulatory Sho Hebert RN Work Phone: [facility] Start: 04-30-2022 Follow-up encounter Sho Hebert RN Work Phone: Compacting Machine Operator/T[employer] Management Comment on above: Community Monitoring Outreach (CDM Follow Up) Start: 04-26-2022 End: 04-26-[address] Ricci Cole Work Phone: [facility] Start: 04-22-2022 Refill Ricci Cole MD Work Phone: [facility] Comment on above: Refill Request Start: 04-16-2022 ambulatory Sho Hebert RN Work Phone: [facility] Start: 04-16-2022 Follow-up encounter Sho Hebert RN Work Phone: Compacting Machine Operator/T[employer] Management Comment on above: Community Monitoring Outreach (CDM Telephonic Follow Up) Start: 04-15-2022 ambulatory Sho Hebert RN Work Phone: [facility] [place] Start: 04-15-2022 Follow-up encounter Sho Hebert RN Work Phone: Compacting Machine Operator/Tender Management Comment on above: Community Monitoring Outreach (CDM Telephonic Follow Up) Start: 03-27-2022 Refill Ricci Cole MD Work Phone: [facility] Comment on above: Refill Request Start: 03-26-2022 Refill Ricci Cole MD Work Phone: [facility] [place] Comment on above: Prescription Refills Start: 03-18-2022 ambulatory Sho Hebert RN Work Phone: [facility] [place] Start: 03-18-2022 Follow-up encounter Sho Hebert RN Work Phone: Compacting Machine Operator/[employer] Management Comment on above: Community Monitoring Outreach (Telephonic Follow Up) Start: 02-18-2022 ambulatory Sho Hebert RN Work Phone: [facility] [place] Start: 02-18-2022 Follow-up encounter Sho Hebert RN Work Phone: [employer]acting Machine Operator/T[employer] Management Comment on above: Community Monitoring Outreach (Telephonic Follow Up) Start: 02-15-2022 ambulatory Sho Hebert RN Work Phone: [facility] [place] Start: 02-15-2022 Follow-up encounter Sho Hebert RN Work Phone: Compacting Machine Operator/Tender Management Comment on above: Community Monitoring Outreach (Telephonic Follow Up) Start: 02-11-2022 Refill Ricci Cole MD Work Phone: [facility] Comment on above: Refill Request Start: 02-01-2022 Refill Ricci Cole MD Work Phone: [facility] [place] Comment on above: Refill Request Start: 01-31-2022 ambulatory Sho Hebert RN Work Phone: Compacting Machine Operator/T[employer] Management Start: 01-29-2022 End: 01-29-2022 Patient encounter tequila Holland PA-C Work Phone: [facility] [place] Comment on above: Fibromyalgia (Primar y Dx); Type 2 diabetes mellitus without complication, without long-term current use of insulin (HCC); Screening for colon cancer; Primary hypertension; Depression, major, recurrent, in complete remission (HCC); Hospital discharge follow-up Start: 01-23-2022 Patient Outreach Ricci velazquez MD Work Phone: [facility] Comment on above: Transition Of Care Start: 01-22-2022 ambulatory Sho Hebert RN Work Phone: [facility] Start: 01-22-2022 Follow-up encounter Sho Hebert RN Work Phone: Compacting Machine Operator/T[employer] Management Comment on above: Community Monitoring Outreach (Telephonic Follow Up) Refill Request Start: 01-22-2022 Non-patient / Non-visit Dr. Sari Cole Work Phone: [facility] Start: 01-21-2022 Non-patient / Non-visit Dr. Sari Cole Work Phone: [facility] Start: 01-20-2022 Non-patient / Non-visit Dr. Sari Cole Work Phone: [facility] Start: 01-19-2022 Non-patient / Non-visit Dr. Sari Cole Work Phone: [facility] Start: 01-18-2022 Non-patient / Non-visit Dr. Sari Cole Work Phone: [facility] Start: 01-17-2022 Non-patient / Non-visit Dr. Sari Cole Work Phone: [facility] Start: 01-17-2022 End: 01-22-2022 Evaluation and management of inpatient [facility] Start: 01-07-2022 ambulatory Sho Hebert RN Work Phone: [employer] Comment on above: Community Monitoring Outreach (Telephonic Foillow Up) Start: 01-07-2022 Telephone encounter Ricci Cole MD Work Phone: [facility] Comment on above: Results Start: 01-05-2022 End: 01-05-2022 Patient encounter procedure Ricci Cole MD Work Phone: [facility] Comment on above: Nausea (Primary Dx); Other chronic gastritis without hemorrhage; Urinary incontinence, unspecified type; History of recurrent UTIs; Migraine with aura and without status migrainosus, not intractable; Leukocytosis, unspecified type; Secondary polycythemia; Tobacco use; Primary hypertension; Hyperlipidemia, mixed; Depression, major, recurrent, in complete remission (HCC); Uncontrolled type 2 diabetes mellitus with hyperglycemia ([facility]); Screening breast examination; Screening for colon cancer; Pyuria; Chronic bronchitis, unspecified chronic bronchitis type ([facility]) Start: 01-02-2022 Telephone encounter Ricci Cole MD Work Phone: [facility] Comment on above: Results Start: 01-02-2022 End: 01-02-2022 [facility] Start: 12-31-2021 ambulatory Padmini Moura MD Work Phone: Virtual Medicine Comment on above: COPD with exacerbati on (HCC) (Primary Dx) Start: 12-31-2021 Telemedicine consultation with patient Padmini Moura MD Work Phone: MAIN VIRTUAL VISIT Start: 12-24-2021 Telephone encounter Yasmany Holland PA-C Work Phone: [facility] Comment on above: Patient Update Start: 12-20-2021 Telephone encounter Yasmany Holland PA-C Work Phone: [facility] Comment on above: Results UTI Start: 12-18-2021 ambulatory Sho Hebert RN [facility] Start: 12-18-2021 Follow-up encounter Sho Hebert RN [employer]acting [employer] Comment on above: Community Monitoring Outreach (Telephonic Follow Up) Start: 12-18-2021 End: 12-18-2021 Patient encounter procedure Yasmany Holland PA-C Work Phone: [facility] Comment on above: Suspected COVID-19 v [...] 12-12-2021 Refill Ricci Cole MD Work Phone: [facility] Comment on above: Refill Request Start: 12-06-2021 ambulatory Sho Hebert RN [facility] Start: 12-06-2021 Follow-up encounter Sho Hebert RN [employer] [employer] Comment on above: Community Monitoring Outreach (Telephonic Follow Up) Start: 12-03-2021 ambulatory Sho Hebert RN [employer] Comment on above: Community Monitoring Outreach (CDM Telephonic) Start: 11-29-2021 Refill Ricci Cole MD Work Phone: [facility] Comment on above: Refill Request Start: 11-22-2021 End: 11-22-2021 Patient encounter procedure Joyce Perry PA-C Work Phone: Pulmonary Medicine Comment on above: COPD with exacerbati on (HCC) (Primary Dx); COPD with chronic bronchitis (HCC); Tobacco use disorder, continuous Start: 07-16-2021 End: 07-16-2021 Emergency department patient visit RENAY HICKS [facility] Start: 04-11-2021 End: 04-11-2021 Subsequent hospital visit by physician [facility] Work Phone: Radiology Comment on above: Acute bronchitis wit h COPD (HCC) (HCC) [J44.0, J20.9] Start: 07-27-2020 End: 07-27-2020 Subsequent hospital visit by physician [facility] Work Phone: Radiology Comment on above: Cough [R05] Start: 04-12-2020 End: 04-12-2020 Emergency department patient visit TOSHIA GUILLORY [facility] Procedures Date Procedure Procedure Detail Performing Clinician [...] rgnt auto w/o microscopy Smiley A Suppan PROCESS DESIGN ENGINEER.NEUROPHYSIOLOGICAL TECHNICIAN Work Phone: Start: 07-26-2024 Urnls dip stick/tablet rgnt auto w/o microscopy Smiley A Suppan PROCESS DESIGN ENGINEER.NEUROPHYSIOLOGICAL TECHNICIAN Work Phone: Start: 04-29-2024 Urnls dip stick/tablet rgnt auto w/o microscopy Smiley A Suppan PROCESS DESIGN ENGINEER.NEUROPHYSIOLOGICAL TECHNICIAN Work Phone: Start: 03-23-2024 Urnls dip stick/tablet rgnt auto w/o microscopy Smiley A Suppan PROCESS DESIGN ENGINEER.NEUROPHYSIOLOGICAL TECHNICIAN Work Phone: Start: 09-04-2023 Radiologic exam chest 2 views Nanci miller PROCESS DESIGN ENGINEER.NEUROPHYSIOLOGICAL TECHNICIAN Work Phone: Start: 08-04-2023 Plain chest X-ray Start: 07-09-2023 Gluc bld gluc mntr dev cleared fda spec home use Sophia Fan PROCESS DESIGN ENGINEER.NEUROPHYSIOLOGICAL TECHNICIAN Work Phone: Start: 07-09-2023 Urnls dip stick/tablet rgnt auto w/o microscopy Lou Corona PROCESS DESIGN ENGINEER.NEUROPHYSIOLOGICAL TECHNICIAN Work Phone: Start: 11-14-2022 Plain chest X-ray [...] Radiologic exam chest 2 views Lou Corona PROCESS DESIGN ENGINEER.NEUROPHYSIOLOGICAL TECHNICIAN Work Phone: Start: 04-12-2020 Urinalysis TOSHIA ROMERO Comment on above: Result Comment: URINALYSIS Performed By: #### [id number] #### [facility],[address] [place] [address] Start: 05-18-2019 Mammography Joyce Perry PA-C Work Phone: Bacteria identified in Blood by Culture Dr. Ricci Cole Work Phone: SARS-CoV-2 & FLU Antigen (Rapid) Urine culture Dr. Ricci Milian Work Phone: Viral antigen assay Dr. Vamsi Cole Work Phone: Plan of Treatment Date Care Activity Detail Author Start: 05-06-2026 Annual PCP Team Chronic Disease Visit Annual PCP Team Chronic Disease Visit [facility] Start: 05-06-2026 RSV Vaccine (1 - Risk 60-74 years 1-dose series) RSV Vaccine (1 - Risk 60-74 years 1-dose series) [facility] Comment on above: Postponed from 2017 (Declined at t his time) Start: 05-06-2026 Shingrix Vaccine (2 of 2) Shingrix Vaccine (2 of 2) [facility] Comment on above: Postponed from 07/29/2019 (Declined at t his time) Start: 05-06-2026 Urine microalbumin profile DTaP,Tdap,Td Vaccine (1 - Tdap) [facility] Comment on above: Postponed from 1976 (Declined at t his time) Start: 03-29-2026 Annual PCP Team Chronic Disease Visit Annual PCP Team Chronic Disease Visit [facility] Start: 03-10-2026 Annual PCP Team Chronic Disease Visit Annual PCP Team Chronic Disease Visit [facility] Start: 03-01-2026 Annual PCP Team Chronic Disease Visit Annual PCP Team Chronic Disease Visit [facility] Start: 03-01-2026 Hepatitis B screening Urine Albumin:Creatinine Ratio [facility] Start: 03-01-2026 Hepatitis B surface antibody level LDL Cholesterol [facility] Start: 02-21-2026 Influenza vaccination [facility] Comment on above: Postponed from 04/25/2025 (Declined at t his time) Start: 11-03-2025 End: 02-02-2026 Hemoglobin A1c in Blood HEMOGLOBIN A1C Lab Routine Uncontrolled type 2 diabetes mellitus with hyperglycemia (HCC) Expected: 11/03/2025, Expires: 02/02/2026 [facility] Work Phone: Comment on above: Expected: 11/03/2025, Expires: Start: 09-01-2025 Hemoglobin A1c measurement HbA1C [facility] Start: 08-01-2025 End: 08-01-2025 Patient encounter procedure 08/01/2025 9:20 AM EST Office Visit [facility] [address] [place], [place] [id number] Smiley Melo APRN.NEUROPHYSIOLOGICAL TECHNICIAN [address] [facility] [place] [id number] 3 month exam [facility] Comment on above: 3 month exam Start: 07-26-2025 Annual PCP Team Chronic Disease Visit Annual PCP Team Chronic Disease Visit [facility] Start: 07-26-2025 BP Controlled (<130/80) BP Controlled (<130/80) [facility] Start: 07-26-2025 Diabetic foot examination Diabetic Foot Exam [facility] Start: 06-06-2025 Glaucoma screening Dilated Retinal Exam [facility] Comment on above: Postponed from 09/29/2024 (Currently Olga eduled) Start: 06-02-2025 End: 06-02-2025 Patient encounter procedure 06/02/2025 9:40 AM EDT Office Visit Family [facility] [place] [address] [place] [address] Smiley Melo APRN.NEUROPHYSIOLOGICAL TECHNICIAN [address] [place] [address] 3 month [facility] Comment on above: 3 month follow up Start: 05-24-2025 End: 05-24-2025 Patient encounter procedure 05/24/2025 8:00 AM EDT Office Visit [facility] [address] [place] [address] Merlene Heaton, OD [address] [place] [place] [address] Diagnostics, [facility] [address] [place] [id number] Diabetic Ophthalmology Comment on above: Diabetic Start: 05-15-2025 [facility] Start: 05-06-2025 End: 08-05-2025 25-hydroxyvitamin D3 [Mass/volume] in Serum or Plasma VITAMIN D 25 HYDROXY Lab Routine Vitamin D deficiency Expected: 05/06/2025, Expires: 08/05/2025 [facility] Comment on above: Expected: 05/06/2025, Expires: Start: 05-06-2025 End: 08-05-2025 Cobalamin (Vitamin B12) [Mass/volume] in Serum or Plasma VITAMIN B12 Lab Routine Vitamin B12 deficiency Expected: 05/06/2025, Expires: 08/05/2025 [facility] Comment on above: Expected: 05/06/2025, Expires: Start: 05-06-2025 End: 08-05-2025 Comprehensive metabolic 2000 panel - Serum or Plasma COMPREHENSIVE METABOLIC PANEL Lab Routine Primary hypertension Uncontrolled type 2 diabetes mellitus with hyperglycemia (HCC) Expected: 05/06/2025, Expires: 08/05/2025 [facility] Comment on above: Expected: 05/06/2025, Expires: Start: 05-06-2025 End: 06-05-2026 XR Abdomen Supine and Upright XR ABDOMEN 1V SUPINE Radiology Routine Gastroenteritis Expected: 05/06/2025, Expires: 06/05/2026 [facility] Comment on above: Expected: 05/06/2025, Expires: Start: 04-25-2025 Influenza vaccination [facility] Start: 04-08-2025 End: 04-08-2025 Patient encounter procedure 04/08/2025 1:00 PM EDT Office Visit [facility] [address] [place] [address] Merlene Heaton, OD [address] [place] [address] Diagnostics, [facility] [address] [address] rescheduled from 02/01 Ophthalmology Comment on above: rescheduled from 02/01 Start: 03-29-2025 End: 03-29-2025 Patient encounter procedure 03/29/2025 2:30 PM EDT Office Visit [facility] [address] [place] [address] Merlene Heaton, OD [address] [place] [address] Diagnostics, [facility] [address] [address] rescheduled from 02/01 Ophthalmology Comment on above: rescheduled from 02/01 Start: 03-25-2025 End: 03-25-2025 Patient encounter procedure 03/25/2025 9:40 AM EDT Office Visit [facility] [address] [facility] [place] [address] Smiley Melo APRN.NEUROPHYSIOLOGICAL TECHNICIAN [address] [place] [address] 2 week follow up chronic bronchitis [facility] Comment on above: 2 week follow up chronic bronchitis Start: 03-24-2025 End: 03-24-2025 Patient encounter procedure 03/24/2025 10:20 AM EDT Office Visit Family [facility] [place] [address] [facility] [place], [place] [phone] Smiley Melo APRN.NEUROPHYSIOLOGICAL TECHNICIAN [address] [place] [id number] 2 week follow up chronic bronchitis [facility] Comment on above: 2 week follow up chronic bronchitis Start: 03-10-2025 End: 03-10-2025 Patient encounter procedure 03/10/2025 2:30 PM EDT Office Visit [facility] [address] [place] [address] Merlene Heaton, OD [address] [place] [address] Diagnostics, [facility] [address] [place] [phone] rescheduled from 02/01 Ophthalmology Comment on above: rescheduled from 02/01 Start: 03-10-2025 End: 06-09-2025 Urinalysis complete panel - Urine [facility] Work Phone: Comment on above: Expected: 03/10/2025, Expires: Start: 03-10-2025 End: 03-10-2025 Patient encounter procedure 03/10/2025 10:40 AM EDT Office Visit Family [facility] [address] [place] [address] Smiley Melo NASEEM.NEUROPHYSIOLOGICAL TECHNICIAN [address] [facility] [place] [address] Pt was in on 03/01/25 still coughing non-stop and bringing up thick white-yellow phlegm and still with SOB. See TE 03/09/25. [facility] Comment on above: Pt was in on 03/01/25 still coughing non-s top and bringing up thick white-yellow phlegm and still with SOB. See TE 03/09/25. Start: 03-01-2025 End: 05-31-2025 Cobalamin (Vitamin B12) [Mass/volume] in Serum or Plasma [facility] Comment on above: Expected: 03/01/2025, Expires: Start: 03-01-2025 End: 05-31-2025 Comprehensive metabolic 2000 panel - Serum or Plasma [facility] Work Phone: Comment on above: Expected: 03/01/2025, Expires: Start: 03-01-2025 End: 05-31-2025 Hemoglobin A1c in Blood [facility] Comment on above: Expected: 03/01/2025, Expires: Start: 03-01-2025 End: 05-31-2025 LIPID PANEL, NONFASTING [facility] Comment on above: Expected: 03/01/2025, Expires: Start: 03-01-2025 End: 05-31-2025 Magnesium [Mass/volume] in Serum or Plasma [facility] Comment on above: Expected: 03/01/2025, Expires: Start: 03-01-2025 End: 05-31-2025 Microalbumin/Creatinine [Mass Ratio] in Urine [facility] Comment on above: Expected: 03/01/2025, Expires: Start: 03-01-2025 End: 05-31-2025 Thyrotropin [Units/volume] in Serum or Plasma [facility] Comment on above: Expected: 03/01/2025, Expires: Start: 02-01-2025 End: 02-01-2025 Patient encounter procedure 02/01/2025 9:00 AM EDT Office Visit [facility] [address] [place] [address] Merlene Heaton, OD [address] [place] [address] rescheduled from 12/31 Ophthalmology Comment on above: rescheduled from 12/31 Start: 01-28-2025 End: 01-28-2025 Patient encounter procedure 01/28/2025 2:40 PM EDT Office Visit [facility] [place] [address] [place] [address] Smiley Melo APRN.NEUROPHYSIOLOGICAL TECHNICIAN [address] [place] [address] 6 month f/u-check height [facility] [place] Comment on above: 6 month f/u-check height Start: 01-24-2025 End: 01-24-2025 Patient encounter procedure [facility] [place] Comment on above: 6 month f/u 6 month f/u-check he ight Start: 01-11-2025 End: 01-11-2025 Patient encounter procedure 01/11/2025 9:00 AM EDT Office Visit [facility] [address] [place] [address] Merlene Heaton, OD [address] [place] [address] rescheduled from 12/31 Ophthalmology Comment on above: rescheduled from 12/31 Start: 01-03-2025 End: 04-04-2025 CBC W Auto Differential panel - Blood COMPLETE BLOOD COUNT AND DIFFERENTIAL Lab Routine Uncontrolled type 2 diabetes mellitus with hyperglycemia (HCC) Expected: 01/03/2025, Expires: 04/04/2025 [facility] Comment on above: Expected: 01/03/2025, Expires: Start: 01-03-2025 End: 04-04-2025 Comprehensive metabolic 2000 panel - Serum or Plasma COMPREHENSIVE METABOLIC PANEL Lab Routine Uncontrolled type 2 diabetes mellitus with hyperglycemia (HCC) Expected: 01/03/2025, Expires: 04/04/2025 [facility] Comment on above: Expected: 01/03/2025, Expires: Start: 01-03-2025 End: 04-04-2025 Hemoglobin A1c in Blood HEMOGLOBIN A1C Lab Routine Uncontrolled type 2 diabetes mellitus with hyperglycemia (HCC) Expected: 01/03/2025, Expires: 04/04/2025 [facility] Work Phone: Comment on above: Expected: 01/03/2025, Expires: Start: 01-03-2025 End: 04-04-2025 Lipid 1996 panel - Serum or Plasma LIPID PANEL, FASTING Lab Routine Uncontrolled type 2 diabetes mellitus with hyperglycemia (HCC) Expected: 01/03/2025, Expires: 04/04/2025 [facility] Comment on above: Expected: 01/03/2025, Expires: Start: 12-31-2024 End: 12-31-2024 Patient encounter procedure 12/31/2024 8:15 AM EDT Office Visit [facility] [address] [place] [address] Merlene Heaton, OD [address] [place] [address] Diabetic Ophthalmology Comment on above: Diabetic Start: 11-11-2024 End: 11-11-2024 Patient encounter procedure Ophthalmology Comment on above: Diabetic Start: 10-18-2024 End: 10-18-2024 Patient encounter procedure 10/18/2024 10:00 AM EST Office Visit Pulmonary Medicine [address] [place] [address] Angle Panchal APRN.NEUROPHYSIOLOGICAL TECHNICIAN [address] [place] [address] LCS order is in [facility] Pulmonary Medicine Comment on above: LCS order is in [facility] Start: 09-29-2024 Glaucoma screening Dilated Retinal Exam [facility] Start: 09-27-2024 End: 09-27-2024 Patient encounter procedure 09/27/2024 2:15 PM EST Appointment Radiology [address] [place] [id number] Screening for osteoporosis [Z13.820] Radiology Comment on above: Screening for osteoporosis [Z13.820] Start: 09-17-2024 End: 09-17-2024 Patient encounter procedure 09/17/2024 1:45 PM EST Office Visit [facility] [address] [place] [address] Merlene Heaton, OD [address] [place] [address] Diabetic Ophthalmology Comment on above: Diabetic Start: 08-27-2024 Annual PCP Team Chronic Disease Visit Annual PCP Team Chronic Disease Visit [facility] Start: 08-25-2024 Advance Directive Discussion Advance Directive Discussion [facility] Start: 08-25-2024 Medicare Advantage Annual Wellness Visit Medicare Advantage Annual Wellness Visit [facility] Start: 08-15-2024 Covid-19 Vaccine ( season) Covid-19 Vaccine ( season) [facility] Comment on above: Postponed from 04/25/2023 (Declined at t his time) Start: 08-15-2024 Hepatitis B surface antibody level LDL Cholesterol [facility] Start: 08-15-2024 RSV Vaccine (1 - 1-dose 60+ series) RSV Vaccine (1 - 1-dose 60+ series) [facility] Comment on above: Postponed from 2017 (Declined at t his time) Start: 08-15-2024 RSV Vaccine (1 - Risk 60-74 years 1-dose series) RSV Vaccine (1 - Risk 60-74 years 1-dose series) [facility] Comment on above: Postponed from 2017 (Declined at t his time) Start: 08-15-2024 Shingrix Vaccine (2 of 2) Shingrix Vaccine (2 of 2) [facility] Comment on above: Postponed from 07/29/2019 (Declined at t his time) Start: 08-02-2024 End: 11-01-2024 Bacteria identified in Urine by Culture URINE CULTURE Microbiology Routine Recurrent UTI (urinary tract infection) Expected: 08/02/2024, Expires: 11/01/2024 [facility] Comment on above: Expected: 08/02/2024, Expires: Start: 07-26-2024 End: 10-25-2024 Bacteria identified in Urine by Culture URINE CULTURE Microbiology Routine Recurrent UTI (urinary tract infection) Expected: 07/26/2024, Expires: 10/25/2024 [facility] Comment on above: Expected: 07/26/2024, Expires: Start: 07-26-2024 End: 10-25-2024 CBC W Auto Differential panel - Blood COMPLETE BLOOD COUNT AND DIFFERENTIAL Lab Routine Fibromyalgia Type 2 diabetes mellitus without complication, without long-term current use of insulin (HCC) Chronic nausea Expected: 07/26/2024, Expires: 10/25/2024 [facility] Comment on above: Expected: 07/26/2024, Expires: Start: 07-26-2024 End: 10-25-2024 Cobalamin (Vitamin B12) [Mass/volume] in Serum or Plasma VITAMIN B12 Lab Routine Fibromyalgia Type 2 diabetes mellitus without complication, without long-term current use of insulin (HCC) Chronic nausea Expected: 07/26/2024, Expires: 10/25/2024 [facility] Comment on above: Expected: 07/26/2024, Expires: Start: 07-26-2024 End: 10-25-2024 Comprehensive metabolic 2000 panel - Serum or Plasma COMPREHENSIVE METABOLIC PANEL Lab Routine Fibromyalgia Type 2 diabetes mellitus without complication, without long-term current use of insulin (HCC) Chronic nausea Expected: 07/26/2024, Expires: 10/25/2024 [facility] Comment on above: Expected: 07/26/2024, Expires: Start: 07-26-2024 End: 10-25-2024 Hemoglobin A1c in Blood HEMOGLOBIN A1C Lab Routine Uncontrolled type 2 diabetes mellitus with hyperglycemia (HCC) Expected: 07/26/2024, Expires: 10/25/2024 [facility] Comment on above: Expected: 07/26/2024, Expires: Start: 07-26-2024 End: 10-25-2024 LIPID PANEL, NONFASTING LIPID PANEL, NONFASTING Lab Routine Fibromyalgia Type 2 diabetes mellitus without complication, without long-term current use of insulin (HCC) Chronic nausea Expected: 07/26/2024, Expires: 10/25/2024 [facility] Comment on above: Expected: 07/26/2024, Expires: Start: 07-26-2024 End: 10-25-2024 Magnesium [Mass/volume] in Serum or Plasma MAGNESIUM Lab Routine Fibromyalgia Type 2 diabetes mellitus without complication, without long-term current use of insulin (HCC) Chronic nausea Expected: 07/26/2024, Expires: 10/25/2024 [facility] Comment on above: Expected: 07/26/2024, Expires: Start: 07-26-2024 End: 10-25-2024 Microalbumin/Creatinine [Mass Ratio] in Urine ALBUMIN/CREATININE RATIO, URINE Lab Routine Uncontrolled type 2 diabetes mellitus with hyperglycemia (HCC) Expected: 07/26/2024, Expires: 10/25/2024 [facility] Comment on above: Expected: 07/26/2024, Expires: Start: 06-01-2024 End: 06-01-2024 Patient encounter procedure 06/01/2024 1:20 PM EDT Office Visit [facility] [address] [place] [address] Smiley Melo APRN.NEUROPHYSIOLOGICAL TECHNICIAN [address] [place], [place] [id number] 1 month f/u [facility] Comment on above: 1 month f/u Start: 04-30-2024 End: 04-30-2024 Patient encounter procedure 04/30/2024 4:20 PM EDT Office Visit [facility] Ida Johnson [address] [place], [place] [address] Ricci Cole MD [address] [place], [place] [address] incontinence [facility] Comment on above: incontinence Start: 04-29-2024 End: 07-29-2024 Bacteria identified in Urine by Culture [facility] Work Phone: Comment on above: Expected: 04/29/2024, Expires: Start: 04-25-2024 Covid-19 Vaccine ( season) Covid-19 Vaccine ( season) [facility] Start: 04-25-2024 Covid-19 Vaccine () Covid-19 Vaccine () [facility] Start: 04-25-2024 Influenza vaccination [facility] Start: 04-15-2024 3 comp foot exam completed DIABETIC FOOT EXAM [facility] Start: 04-15-2024 ANNUAL PCP TEAM CHRONIC DISEASE VISIT ANNUAL PCP TEAM CHRONIC DISEASE VISIT [facility] Start: 04-15-2024 Diabetic foot examination Diabetic Foot Exam [facility] Start: 04-15-2024 Hepatitis B screening URINE ALBUMIN:CREATININE RATIO [facility] Start: 04-15-2024 Hepatitis B surface antibody level LDL CHOLESTEROL [facility] Start: 04-15-2024 Urine microalbumin profile [facility] Comment on above: Postponed from 1976 (Declined at t his time) Start: 04-09-2024 End: 04-09-2024 Patient encounter procedure 04/09/2024 9:40 AM EDT Office Visit Family [facility] [address] [place], [place] [phone] Smiley Melo APRN.NEUROPHYSIOLOGICAL TECHNICIAN [address] [place], [place] [phone] 2 week UTI f/u [facility] Comment on above: 2 week UTI f/u Start: 04-08-2024 End: 07-08-2024 Bacteria identified in Urine by Culture URINE CULTURE Microbiology Routine Recurrent UTI (urinary tract infection) Expected: 04/08/2024, Expires: 07/08/2024 [facility] Work Phone: Comment on above: Expected: 04/08/2024, Expires: Start: 04-06-2024 End: 04-06-2024 Patient encounter procedure 04/06/2024 10:40 AM EDT Office Visit Family Medicine Alex [address] [facility] [place] [address] Smiley Melo, PROCESS DESIGN ENGINEER.NEUROPHYSIOLOGICAL TECHNICIAN [address] [place], [place] [id number] 2 week UTI f/u [facility] Comment on above: 2 week UTI f/u Start: 03-23-2024 End: 03-23-2024 Patient encounter procedure 03/23/2024 1:40 PM EDT Office Visit [facility] [address] [place] [address] Ricci Cole MD [address] [place], [place] [id number] med refills [facility] Comment on above: med refills Start: 03-23-2024 End: 03-23-2024 Patient encounter procedure 03/23/2024 10:20 AM EDT Office Visit [facility] [address] [place] [address] Smiley Melo, PROCESS DESIGN ENGINEER.NEUROPHYSIOLOGICAL TECHNICIAN [address] [place] [address] Burning with Urination. See triage 03/22/2024 [facility] Comment on above: Burning with Urination. See triage 2023 Start: 02-22-2024 Influenza vaccination Influenza Vaccine (#1) [facility] Comment on above: Postponed from 04/25/2023 (Declined at t his time) Start: 02-14-2024 Hemoglobin A1c measurement HbA1C [facility] Start: 10-16-2023 Hemoglobin A1c measurement HbA1C [facility] Start: 10-16-2023 Hemoglobin A1c/Hemoglobin.total in Blood HBA1C [facility] Start: 08-25-2023 Advance Directive Discussion Advance Directive Discussion [facility] Start: 08-06-2023 Patient discharge [facility] Start: 08-05-2023 Referral to occupational therapist [facility] Start: 08-05-2023 Referral to service [facility] Start: 08-04-2023 Assessment of risk of venous thromboembolism [facility] Start: 08-04-2023 Care regimes management [facility] Start: 08-04-2023 Inhalation therapy procedure [facility] Start: 08-04-2023 Insertion of catheter into peripheral vein [facility] Start: 08-04-2023 Measuring intake and output [facility] Start: 08-04-2023 Notification of physician [facility] Start: 08-04-2023 Providing care according to standard [facility] Start: 08-04-2023 Provision of activity privileges [facility] Start: 08-04-2023 [facility] Start: 08-04-2023 Following clinical pathway protocol [facility] Start: 08-04-2023 Blood culture [facility] Start: 08-04-2023 Verification routine [facility] Start: 08-04-2023 Admission procedure [facility] Start: 08-04-2023 Hospital admission, emergency, from emergency room, medical nature [facility] Start: 08-04-2023 Bacteria identified in Blood by Culture Blood Culture [facility] Start: 08-04-2023 Bacteria identified in Urine by Culture Urine Culture [facility] Start: 08-04-2023 Urine culture Urine Culture [facility] Start: 08-04-2023 End: 08-05-2023 [facility] Start: 08-04-2023 Patient referral to dietitian [facility] Start: 04-25-2023 Covid-19 Vaccine ( season) Covid-19 Vaccine ( season) [facility] Start: 04-25-2023 Influenza vaccination [facility] Start: 04-15-2023 End: 06-15-2023 25-hydroxyvitamin D3 [Mass/volume] in Serum or Plasma [facility] Work Phone: Comment on above: Expected: 04/15/2023, Expires: 3 Start: 04-15-2023 End: 06-15-2023 Bacteria identified in Urine by Culture [facility] Work Phone: Comment on above: Expected: 04/15/2023, Expires: 3 Start: 04-15-2023 End: 06-15-2023 Comprehensive metabolic 2000 panel - Serum or Plasma [facility] Work Phone: Comment on above: Expected: 04/15/2023, Expires: Start: 04-15-2023 End: 06-15-2023 LIPID PANEL, NONFASTING [facility] Work Phone: Comment on above: Expected: 04/15/2023, Expires: Start: 04-15-2023 End: 06-15-2023 Magnesium [Mass/volume] in Serum or Plasma [facility] Work Phone: Comment on above: Expected: 04/15/2023, Expires: Start: 04-15-2023 End: 06-15-2023 Thyrotropin [Units/volume] in Serum or Plasma [facility] Work Phone: Comment on above: Expected: 04/15/2023, Expires: Start: 01-29-2023 ANNUAL PCP TEAM CHRONIC DISEASE VISIT ANNUAL PCP TEAM CHRONIC DISEASE VISIT [facility] Start: 01-29-2023 SHINGRIX VACCINE (1 of 2) SHINGRIX VACCINE (1 of 2) [facility] Comment on above: Postponed from 2007 (Insurance Cov erage) Start: 01-29-2023 Urine microalbumin profile DTAP,TDAP,TD (1 - Tdap) [facility] Comment on above: Postponed from 1976 (Insurance Cov erage) Start: 01-05-2023 ANNUAL PCP TEAM CHRONIC DISEASE VISIT ANNUAL PCP TEAM CHRONIC DISEASE VISIT [facility] Start: 01-05-2023 Hepatitis B screening URINE ALBUMIN:CREATININE RATIO [facility] Start: 01-05-2023 Hepatitis B surface antibody level LDL CHOLESTEROL [facility] Start: 12-18-2022 ANNUAL PCP TEAM CHRONIC DISEASE VISIT ANNUAL PCP TEAM CHRONIC DISEASE VISIT [facility] Start: 12-18-2022 Hepatitis B surface antibody level LDL CHOLESTEROL [facility] Start: 11-25-2022 End: 01-25-2023 ALBUMIN/CREAT RATIO RND UR ALBUMIN/CREAT RATIO RND UR Lab Routine Type 2 diabetes mellitus without complication, without long-term current use of insulin (HCC) Expected: 11/25/2022, Expires: 01/25/2023 [facility] Work Phone: Comment on above: Expected: 11/25/2022, Expires: 3 Start: 11-25-2022 End: 01-25-2023 CBC W Auto Differential panel - Blood CBC + DIFF Lab Routine Type 2 diabetes mellitus without complication, without long-term current use of insulin (HCC) Expected: 11/25/2022, Expires: 01/25/2023 [facility] Work Phone: Comment on above: Expected: 11/25/2022, Expires: 3 Start: 11-25-2022 End: 01-25-2023 Comprehensive metabolic 2000 panel - Serum or Plasma COMP METABOLIC PANEL Lab Routine Type 2 diabetes mellitus without complication, without long-term current use of insulin (HCC) Expected: 11/25/2022, Expires: 01/25/2023 [facility] Work Phone: Comment on above: Expected: 11/25/2022, Expires: 3 Start: 11-25-2022 End: 01-25-2023 Hemoglobin A1c in Blood HGB A1C Lab Routine Type 2 diabetes mellitus without complication, without long-term current use of insulin (HCC) Expected: 11/25/2022, Expires: 01/25/2023 [facility] Work Phone: Comment on above: Expected: 11/25/2022, Expires: Start: 11-25-2022 End: 01-25-2023 Lipid 1996 panel - Serum or Plasma LIPID PANEL BASIC Lab Routine Type 2 diabetes mellitus without complication, without long-term current use of insulin (HCC) Expected: 11/25/2022, Expires: 01/25/2023 [facility] Work Phone: Comment on above: Expected: 11/25/2022, Expires: 3 Start: 11-14-2022 [facility] Start: 09-07-2022 3 comp foot exam completed DIABETIC FOOT EXAM [facility] Start: 09-07-2022 ANNUAL PCP TEAM CHRONIC DISEASE VISIT ANNUAL PCP TEAM CHRONIC DISEASE VISIT [facility] Start: 08-25-2022 ADVANCE DIRECTIVE DISCUSSION ADVANCE DIRECTIVE DISCUSSION [facility] Start: 07-08-2022 Hemoglobin A1c/Hemoglobin.total in Blood HBA1C [facility] Start: 06-12-2022 Patient discharge [facility] Work Phone: Start: 05-11-2022 Iv infusion therapy/prophylaxis /dx 1st [facility] Start: 05-10-2022 Iv infusion therapy/prophylaxis /dx 1st to 1 [facility] Start: 05-09-2022 Iv infusion therapy/prophylaxis /dx 1st to 1 hr [facility] Start: 05-08-2022 Iv infusion therapy/prophylaxis /dx 1st to 1 hr [facility] Start: 05-07-2022 Iv infusion therapy/prophylaxis /dx 1st to 1 [facility] Start: 05-06-2022 Iv infusion therapy/prophylaxis /dx 1st to 1 hr [facility] Start: 05-05-2022 Care of central venous catheter [facility] Work Phone: Start: 05-05-2022 Following clinical pathway protocol [facility] Work Phone: Start: 05-04-2022 Care of central venous catheter [facility] Work Phone: Start: 05-04-2022 Following clinical pathway protocol [facility] Work Phone: Start: 05-03-2022 Patient discharge [facility] Work Phone: Start: 05-02-2022 Following clinical pathway protocol [facility] Work Phone: Start: 05-02-2022 Referral to service [facility] Work Phone: Start: 05-01-2022 Consultation [facility] Work Phone: Start: 05-01-2022 End: 07-01-2022 CBC W Auto Differential panel - Blood CBC + DIFF Lab Routine Type 2 diabetes mellitus without complication, without long-term current use of insulin (HCC) Expected: 05/01/2022, Expires: 07/01/2022 [facility] Work Phone: Comment on above: Expected: 05/01/2022, Expires: 2 Start: 05-01-2022 End: 07-01-2022 Comprehensive metabolic 2000 panel - Serum or Plasma COMP METABOLIC PANEL Lab Routine Type 2 diabetes mellitus without complication, without long-term current use of insulin (HCC) Expected: 05/01/2022, Expires: 07/01/2022 [facility] Work Phone: Comment on above: Expected: 05/01/2022, Expires: 2 Start: 05-01-2022 End: 07-01-2022 Hemoglobin A1c/Hemoglobin.total in Blood HGB A1C Lab Routine Type 2 diabetes mellitus without complication, without long-term current use of insulin (HCC) Expected: 05/01/2022, Expires: 07/01/2022 [facility] Work Phone: Comment on above: Expected: 05/01/2022, Expires: 2 Start: 05-01-2022 End: 07-01-2022 LIPID PANEL BASIC LIPID PANEL BASIC Lab Routine Type 2 diabetes mellitus without complication, without long-term current use of insulin (HCC) Expected: 05/01/2022, Expires: 07/01/2022 [facility] Work Phone: Comment on above: Expected: 05/01/2022, Expires: 2 Start: 05-01-2022 End: 07-01-2022 Magnesium [Mass/volume] in Serum or Plasma MAGNESIUM BLD Lab Routine Type 2 diabetes mellitus without complication, without long-term current use of insulin (HCC) Expected: 05/01/2022, Expires: 07/01/2022 [facility] Work Phone: Comment on above: Expected: 05/01/2022, Expires: Start: 05-01-2022 Following clinical pathway protocol [facility] Work Phone: Start: 05-01-2022 Assessment of risk of venous thromboembolism [facility] Work Phone: Start: 05-01-2022 Care regimes management [facility] Work Phone: Start: 05-01-2022 Insertion of catheter into peripheral vein [facility] Work Phone: Start: 05-01-2022 Providing care according to standard [facility] Work Phone: Start: 05-01-2022 Referral to occupational therapist [facility] Work Phone: Start: 05-01-2022 Referral to service [facility] Work Phone: Start: 05-01-2022 [facility] Work Phone: Start: 05-01-2022 Verification routine [facility] Work Phone: Start: 05-01-2022 Admission procedure [facility] Work Phone: Start: 05-01-2022 Inhalation therapy procedure [facility] Work Phone: Start: 04-30-2022 [facility] Work Phone: Start: 04-30-2022 End: 04-30-2022 Blood culture [facility] Work Phone: Start: 04-25-2022 Influenza vaccination [facility] Start: 2022 ADVANCE DIRECTIVE DISCUSSION ADVANCE DIRECTIVE DISCUSSION [facility] Start: 2022 BONE DENSITY BONE DENSITY [facility] Start: 2022 Bone Density Screening Bone Density Screening [facility] Start: 2022 Screening for osteoporosis Bone Density Screening [facility] Start: 03-21-2022 End: 05-21-2022 Comprehensive metabolic 2000 panel - Serum or Plasma COMP METABOLIC PANEL Lab Routine Low vitamin D level Serum calcium elevated Expected: 03/21/2022, Expires: 05/21/2022 [facility] Work Phone: Comment on above: Expected: 03/21/2022, Expires: 2 Start: 03-21-2022 End: 05-21-2022 PTH INTACT BLD PTH INTACT BLD Lab Routine Low vitamin D level Serum calcium elevated Expected: 03/21/2022, Expires: 05/21/2022 [facility] Work Phone: Comment on above: Expected: 03/21/2022, Expires: 2 Start: 03-21-2022 End: 05-21-2022 VITAMIN D 25 HYDROXY VITAMIN D 25 HYDROXY Lab Routine Low vitamin D level Serum calcium elevated Expected: 03/21/2022, Expires: 05/21/2022 [facility] Work Phone: Comment on above: Expected: 03/21/2022, Expires: 2 Start: 03-19-2022 COVID-19 VACCINE (2 - Booster for Moderna series) COVID-19 VACCINE (2 - Booster for Moderna series) [facility] Start: 03-19-2022 COVID-19 VACCINE (2 - Moderna series) COVID-19 VACCINE (2 - Moderna series) [facility] Start: 02-19-2022 COVID-19 VACCINE (2 - Moderna series) COVID-19 VACCINE (2 - Moderna series) [facility] Start: 02-16-2022 End: 04-18-2022 HEPATIC FUNCTION PNL HEPATIC FUNCTION PNL Lab Routine Hyperlipidemia, mixed Expected: 02/16/2022, Expires: 04/18/2022 [facility] Work Phone: Comment on above: Expected: 02/16/2022, Expires: 2 Start: 02-16-2022 End: 04-18-2022 LIPID PANEL BASIC LIPID PANEL BASIC Lab Routine Hyperlipidemia, mixed Expected: 02/16/2022, Expires: 04/18/2022 [facility] Work Phone: Comment on above: Expected: 02/16/2022, Expires: Start: 01-22-2022 Patient discharge [facility] Work Phone: Start: 01-22-2022 Consultation [facility] Work Phone: Start: 01-18-2022 Inhalation therapy procedure [facility] Work Phone: Start: 01-17-2022 Following clinical pathway protocol [facility] Work Phone: Start: 01-17-2022 Ambulation without limitation [facility] Work Phone: Start: 01-17-2022 Assessment of risk of venous thromboembolism [facility] Work Phone: Start: 01-17-2022 Care regimes management [facility] Work Phone: Start: 01-17-2022 Insertion of catheter into peripheral vein [facility] Work Phone: Start: 01-17-2022 Providing care according to standard [facility] Work Phone: Start: 01-17-2022 Referral to service [facility] Work Phone: Start: 01-17-2022 [facility] Work Phone: Start: 01-17-2022 Admission procedure [facility] Work Phone: Start: 01-17-2022 Bacteria identified in Blood by Culture Blood Culture [facility] Work Phone: Start: 01-17-2022 Bacteria identified in Urine by Culture Urine Culture [facility] Work Phone: Start: 01-17-2022 [facility] Work Phone: Start: 01-07-2022 End: 03-09-2022 CBC W Auto Differential panel - Blood CBC + DIFF Lab Routine Leukocytosis, unspecified type Expected: 01/07/2022, Expires: 03/09/2022 [facility] Work Phone: Comment on above: Expected: 01/07/2022, Expires: 2 Start: 01-05-2022 End: 03-07-2022 ALBUMIN/CREAT RATIO RND UR [facility] Work Phone: Comment on above: Expected: 01/05/2022, Expires: 2 Start: 01-05-2022 End: 03-07-2022 CBC W Auto Differential panel - Blood [facility] Work Phone: Comment on above: Expected: 01/05/2022, Expires: 2 Start: 01-05-2022 End: 03-07-2022 CBC W Ordered Manual Differential panel - Blood [facility] Work Phone: Comment on above: Expected: 01/05/2022, Expires: 2 Start: 01-05-2022 End: 03-07-2022 Hemoglobin A1c/Hemoglobin.total in Blood [facility] Work Phone: Comment on above: Expected: 01/05/2022, Expires: 2 Start: 01-02-2022 Bacteria identified in Urine by Culture Urine Culture [facility] Work Phone: Start: 12-18-2021 End: 02-17-2022 ALBUMIN/CREAT RATIO RND UR ALBUMIN/CREAT RATIO RND UR Lab Routine Uncontrolled type 2 diabetes mellitus with hyperglycemia (HCC) Expected: 12/18/2021, Expires: 02/17/2022 [facility] Work Phone: Comment on above: Expected: 12/18/2021, Expires: 2 Start: 12-18-2021 End: 02-17-2022 Bacteria identified in Urine by Culture [facility] Work Phone: Comment on above: Expected: 12/18/2021, Expires: 2 Start: 12-18-2021 End: 02-17-2022 CBC W Auto Differential panel - Blood [facility] Work Phone: Comment on above: Expected: 12/18/2021, Expires: 2 Start: 12-18-2021 End: 02-17-2022 Comprehensive metabolic 2000 panel - Serum or Plasma [facility] Work Phone: Comment on above: Expected: 12/18/2021, Expires: 2 Start: 12-18-2021 End: 02-17-2022 Lipase [Enzymatic activity/volume] in Serum or Plasma [facility] Work Phone: Comment on above: Expected: 12/18/2021, Expires: 2 Start: 12-18-2021 End: 02-17-2022 LIPID PANEL BASIC [facility] Work Phone: Comment on above: Expected: 12/18/2021, Expires: 2 Start: 12-18-2021 End: 02-17-2022 VITAMIN D 25 HYDROXY [facility] Work Phone: Comment on above: Expected: 12/18/2021, Expires: 2 Start: 09-01-2021 Hepatitis B screening URINE ALBUMIN:CREATININE RATIO [facility] Start: 09-01-2021 Hepatitis B surface antibody level LDL CHOLESTEROL [facility] Start: 04-25-2021 Influenza vaccination INFLUENZA (#1) [facility] Start: 03-25-2021 Hemoglobin A1c/Hemoglobin.total in Blood HBA1C [facility] Start: 05-18-2020 Mammography [facility] Start: 05-18-2020 Screening for malignant neoplasm of breast Mammogram Screening [facility] Start: 01-23-2020 PNEUMOCOCCAL (2 - PCV) PNEUMOCOCCAL (2 - PCV) [facility] Start: 01-23-2020 PNEUMOCOCCAL: 65+ (2 - PCV) PNEUMOCOCCAL: 65+ (2 - PCV) [facility] Start: 07-29-2019 Shingrix Vaccine (2 of 2) Shingrix Vaccine (2 of 2) [facility] Start: 04-12-2017 Glaucoma screening Dilated Retinal Exam [facility] Start: 04-12-2017 Hepatitis C antibody, confirmatory test DILATED RETINAL EXAM [facility] Start: 2017 Hepatitis B Vaccine (1 of 3 - Risk 3-dose series) Hepatitis B Vaccine (1 of 3 - Risk 3-dose series) [facility] Start: 2017 RSV Vaccine (1 - 1-dose 60+ series) RSV Vaccine (1 - 1-dose 60+ series) [facility] Start: 2017 RSV Vaccine (1 - Risk 60-74 years 1-dose series) RSV Vaccine (1 - Risk 60-74 years 1-dose series) [facility] Start: 2012 Influenza vaccination LUNG CANCER SCREENING [facility] Start: 2007 Influenza vaccination LUNG CANCER SCREENING [facility] Start: 2007 Screening for malignant neoplasm of lung Lung Cancer Screening [facility] Start: 2007 SHINGRIX VACCINE (1 of 2) SHINGRIX VACCINE (1 of 2) [facility] Start: 2002 COLOGUARD (FIT-DNA) COLOGUARD (FIT-DNA) [facility] Start: 2002 Colonoscopy COLONOSCOPY [facility] Start: 2002 COLORECTAL CANCER SCREENING COLORECTAL CANCER SCREENING [facility] Start: [address] COLONOGRAPHY [facility] Start: 2002 FECAL OCCULT BLOOD FECAL OCCULT BLOOD [facility] Start: 2002 Screening for malignant neoplasm of colon [facility] Start: 2002 SIGMOIDOSCOPY SIGMOIDOSCOPY [facility] Start: 1987 Zoledronic acid therapy ALPHA-1 ANTITRYPSIN DEFICIENCY SCREENING [facility] Start: 1976 Urine microalbumin profile [facility] Start: 1975 BP CONTROLLED (<130/80) BP CONTROLLED (<130/80) [facility] Start: 1975 HIV SCREENING HIV SCREENING [facility] Start: 1962 COVID-19 VACCINE (#1) COVID-19 VACCINE (#1) [facility] Start: 1962 COVID-19 VACCINE (1) COVID-19 VACCINE (1) [facility] Bacteria identified in Blood by Culture Blood Culture [facility] Work Phone: Bacteria identified in Urine by Culture Urine Culture [facility] Bacteria identified in Urine by Culture URINE CULTURE Microbiology Routine Dysuria 03/23/2024 1:28 PM EDT [facility] Work Phone: Bacteria identified in Urine by Culture BACTERIAL CULTURE, URINE Microbiology Routine Recurrent UTI (urinary tract infection) 03/01/2025 10:58 AM EDT [facility] End: 08-25-2025 BD DXA TRABECULAR BONE SCORE (TBS) BD DXA TRABECULAR BONE SCORE (TBS) Radiology Routine Screening for osteoporosis Asymptomatic menopause 1 Occurrences starting 07/26/2024 until 08/25/2025 [facility] Comment on above: 1 Occurrences starting 07/26/2024 until 08/25/2025 Blood culture [facility] Work Phone: End: 04-16-2025 DBT Breast - bilateral screening JANELL SCREENING W KOKO Radiology Routine Encounter for screening mammogram for breast cancer 1 Occurrences starting 03/17/2024 until 04/16/2025 [facility] Work Phone: Comment on above: 1 Occurrences starting 03/17/2024 until 04/16/2025 End: 03-17-2026 DBT Breast - bilateral screening JANELL SCREENING W [facility] Radiology Routine Encounter for screening mammogram for breast cancer 1 Occurrences starting 02/15/2025 until 03/17/2026 [facility] Work Phone: Comment on above: 1 Occurrences starting 02/15/2025 until 03/17/2026 End: 08-25-2025 DXA Skeletal system.axial Views for bone density DXA-AXIAL SKELETON Radiology Routine Screening for osteoporosis Asymptomatic menopause 1 Occurrences starting 07/26/2024 until 08/25/2025 [facility] Work Phone: Comment on above: 1 Occurrences starting 07/26/2024 until 08/25/2025 End: 05-14-2024 DXA-AXIAL SKELETON DXA-AXIAL SKELETON Radiology Routine Asymptomatic postmenopausal status 1 Occurrences starting 04/15/2023 until 05/14/2024 [facility] Work Phone: Comment on above: 1 Occurrences starting 04/15/2023 until 05/14/2024 End: 12-18-2022 ECG COMPLETE ECG COMPLETE ECG Routine Intermittent chest pain 1 Occurrences starting 12/18/2021 until 12/18/2022 [facility] Work Phone: Comment on above: 1 Occurrences starting 12/18/2021 until 12/18/2022 Hemoglobin.gastroint odalis nal.lower [Presence] in Stool by Immunoassay FECAL OCCULT BLOOD TEST Lab Routine Screening for colon cancer Ordered: 01/29/2022 [facility] Work Phone: Comment on above: Ordered: 01/29/2022 Hemoglobin.gastroint odalis nal.lower [Presence] in Stool by Immunoassay FECAL OCCULT BLOOD TEST Lab Routine Screening for colon cancer Ordered: 04/15/2023 [facility] Work Phone: Comment on above: Ordered: 04/15/2023 Hemoglobin.gastroint odalis nal.lower [Presence] in Stool by Immunoassay IMMUNOCHEMICAL FECAL OCCULT BLOOD TEST Lab Routine Screening for colon cancer Ordered: 07/26/2024 [facility] Comment on above: Ordered: 07/26/2024 HEPATIC FUNCTION PNL HEPATIC FUN CTION PNL Lab Routine Hyperlipidemia, mixed 01/05/2022 11:11 AM EDT [facility] Work Phone: Influenza virus A an d B RNA and SARS-CoV-2 (COVID-19) N gene panel - Respiratory specimen by CONNOR with probe detection COVID WITH FLUA+B, ROUTINE Microbiology Routine Suspected COVID-19 virus infection Ordered: 12/18/2021 [facility] Work Phone: Comment on above: Ordered: 12/18/2021 LIPID PANEL BASIC LIPID PANEL BA SIC Lab Routine Hyperlipidemia, mixed 01/05/2022 11:11 AM EDT [facility] Work Phone: End: 01-10-2024 JANELL SCREENING JANELL SCREENING Radiology Routine Encounter for screening mammogram for breast cancer 1 Occurrences starting 12/11/2022 until 01/10/2024 [facility] Work Phone: Comment on above: 1 Occurrences starting 12/11/2022 until 01/10/2024 End: 05-14-2024 JANELL SCREENING JANELL SCREENING Radiology Routine Visit for screening mammogram 1 Occurrences starting 04/15/2023 until 05/14/2024 [facility] Work Phone: Comment on above: 1 Occurrences starting 04/15/2023 until 05/14/2024 Patient Education [facility] Work Phone: Patient referral [facility] Work Phone: End: 01-17-2023 Radiologic exam chest 2 views XR CHEST 2V FRONTAL/LAT Radiology Routine SOB (shortness of breath) Mixed simple and mucopurulent chronic bronchitis (HCC) Tobacco use disorder 1 Occurrences starting 12/18/2021 until 01/17/2023 [facility] Work Phone: Comment on above: 1 Occurrences starting 12/18/2021 until 01/17/2023 SARS-CoV-2 (COVID-19 ) RNA [Presence] in Respiratory specimen by CONNOR with probe detection 2019 CORONAVIRUS Microbiology Routine Suspected COVID-19 virus infection Ordered: 12/18/2021 [facility] Work Phone: Comment on above: Ordered: 12/18/2021 End: 02-04-2023 Screening mammography bi 2-view breast inc cad JANELL SCREENING Radiology Routine Screening breast examination 1 Occurrences starting 01/05/2022 until 02/04/2023 [facility] Work Phone: Comment on above: 1 Occurrences starting 01/05/2022 until 02/04/2023 End: 12-22-2022 SPIROMETRY BASELINE ONLY [facility] Work Phone: Comment on above: 1 Occurrences starting 11/22/2021 until 12/22/2022 Urinalysis complete panel - Urine URINALYSIS, WITH MICROSCOPIC Lab Routine Fatigue, unspecified type Urinary frequency 12/18/2021 12:01 PM EDT [facility] Work Phone: Urinalysis complete panel - Urine URINALYSIS, WITH MICROSCOPIC Lab Routine Dysuria 03/23/2024 1:28 PM EDT [facility] Immunizations Immunization Date Immunization Notes Care Provider Graeme heart 07-26-2024 influenza, high dose seasonal, preservative-free Smiley Suppan PROCESS DESIGN ENGINEER.NEUROPHYSIOLOGICAL TECHNICIAN Work Phone: [facility] 07-26-2024 influenza virus vaccine, unspecified formulation Smiley Suppan PROCESS DESIGN ENGINEER.NEUROPHYSIOLOGICAL TECHNICIAN Work Phone: [facility] 04-15-2023 pneumococcal (PCV20) vaccine, 20 valent (PREVNAR 20) Nanci Huber PROCESS DESIGN ENGINEER.NEUROPHYSIOLOGICAL TECHNICIAN Work Phone: [facility] 04-15-2023 pneumococcal Conjuga te, unspecified formulation Nanci Haagen PROCESS DESIGN ENGINEER.NEUROPHYSIOLOGICAL TECHNICIAN Work Phone: [facility] Work Phone: 01-22-2022 Covid (Moderna) Dr. Ricci Cole Work Phone: [facility] 06-13-2019 influenza, injectabl e, quadrivalent, contains preservative Joyce Perry PA-C Work Phone: [facility] Work Phone: 06-13-2019 influenza virus vaccine, unspecified formulation Ricci Cole MD Work Phone: [facility] 06-03-2019 influenza, injectabl e, quadrivalent, preservative free Smiley Suppan PROCESS DESIGN ENGINEER.NEUROPHYSIOLOGICAL TECHNICIAN Work Phone: [facility] 06-03-2019 zoster vaccine recombinant Smiley Suppan PROCESS DESIGN ENGINEER.NEUROPHYSIOLOGICAL TECHNICIAN Work Phone: [facility] 01-22-2019 pneumococcal polysaccharide vaccine, 23 valent Joyce Perry PA-C Work Phone: [facility] 06-30-2018 influenza, injectabl e, quadrivalent, contains preservative Joyce Orlando PA-C Work Phone: [facility] Work Phone: 04-09-2016 influenza, seasonal, injectable Smiley Suppan PROCESS DESIGN ENGINEER.NEUROPHYSIOLOGICAL TECHNICIAN Work Phone: [facility] 06-18-2013 Influenza virus vaccine [facility] 06-18-2013 influenza, seasonal, injectable, preservative free Smiley Suppan PROCESS DESIGN ENGINEER.NEUROPHYSIOLOGICAL TECHNICIAN Work Phone: [facility] 04-25-2013 pneumococcal polysaccharide vaccine, 23 valent Joyce Perry PA-C Work Phone: [facility] Work Phone: 04-25-2013 Pneumococcal Vaccine [facility] Work Phone: 04-25-2013 pneumococcal vaccine , unspecified formulation [facility] Payers Date Payer Category Payer Self-pay [id number] 2025 Medicare (Managed Care) [employer] HMO [id number] 2025 Medicare [id number] 2014 Medicaid MEDICAID [facility] MEDICAID [id number] 2014-Present [phone] [address] [place] [address] Medicaid [id number] 2014 Medicaid [id number] 2014 Medicaid [id number] 2009 Medicare MEDICARE MEDICAR E A AND B [id number] 2009-Present [phone] [place] [address] Medicare [id number] 2009 Medicare [id number] 2009 Medicare [id number] 1955 Unknown [id number] 1955 Unknown [id number] Unknown [id number] Social History Date Type Detail Facility Start: 08-20-2019 End: 04-29-2024 Tobacco smoking status NHIS Occasional tobacco smoker [facility] History of tobacco use Cigarette Smoker [facility] Start: 08-20-2019 End: 04-01-2023 Cigarettes smoked current (pack per day) - Reported 1 [facility] Start: 08-20-2019 End: 04-29-2024 Tobacco use and exposure Smokeless tobacco non-user [facility] Start: 11-22-2021 End: 05-06-2025 Alcohol intake Current non-drinker of alcohol (finding) [facility] Start: 01-04-2020 End: 06-01-2020 History SDOH Alcohol Frequency 1 [facility] Start: 05-27-2019 History SDOH Social Connections Phone 5 [facility] Start: 05-27-2019 History SDOH Social Connections Living 3 [facility] Start: 01-04-2020 History SDOH Food Worry 2 [facility] Start: 02-29-2020 End: 04-15-2023 Tobacco Comment 3 cigarettes daily? [facility] Start: 1955 Sex Assigned At Not on file [facility] Start: 06-27-2020 End: 04-01-2022 Exposure to SARS-CoV-2 (event) Not sure [facility] Start: 01-02-2022 End: 08-06-2023 Tobacco smoking status HIIS Unknown if ever smoked [facility] Start: 03-29-2014 None [facility] Start: 01-09-2019 Spouse/ Signif icant Other [facility] Start: 08-15-2020 Cigarettes [facility] Start: 1955 Sex Assigned At Female W [facility] Start: 04-23-2022 End: 05-28-2022 Exposure to SARS-CoV-2 (event) Unable to assess [facility] Work Phone: Start: 05-27-2019 End: 04-01-2023 Social connection and isolation panel [facility] Start: 07-26-2012 Attends [employer] Not on file [facility] Are you now , , , , never or living with a partner? [facility] How often to you hav e a drink containing alcohol? Never [facility] Work Phone: Do you feel stress - tense, restless, nervous, or anxious, or unable to sleep at night because your mind is troubled all the time - these days [OSQ] Very much [facility] (I/We) worried [facility] (my/our) food would run out before (I/we) got money to buy more. Sometimes true [facility] Work Phone: Start: 05-15-2025 [facility] Medical Equipment Procedure Code Equipment Code Equipment Original Text Equipment Identifier Dates [id number], [id number], [id number], [id number], [id number], [id number], [id number], [id number], [id number], [id number], [id number], [id number], [id number], [id number], [id number], [id number], [id number] Start: 04-03-2020 End: 03-01-2025 Comment on above: [...] PCP Visits annually, Nurse / pharmacist / KAR visit within 4 weeks after PCP visit [...] Assessment Result Facility 08-06-2023 Functional status Ambulates [facility] Work Phone: 05-03-2022 Functional status Ambulates [facility] Work Phone: 01-22-2022 Functional status Up ad beena;Bath room Privilege [facility] Work Phone: 03-10-2015 Are you deaf, or do you have serious difficulty hearing No 03/10/2015 10:55 AM Maricarmen Degroot LPN No [facility] 03-10-2015 Are you blind, or do you have serious difficulty seeing, even when wearing glasses Yes 03/10/2015 10:55 AM Maricarmen Degroot LPN Yes [facility] 03-10-2015 Do you have serious difficulty walking or climbing stairs Yes 03/10/2015 10:55 AM Maricarmen Degroot LPN Yes [facility] 03-10-2015 Do you have difficul ty dressing or bathing No 03/10/2015 10:55 AM Maricarmen Degroot LPN No [facility] 03-10-2015 Because of a physica l, mental, or emotional condition, do you have difficulty doing errands alone such as visiting a physician's office or shopping No 03/10/2015 10:55 AM Maricarmen Degroot LPN No [facility] Mental Status Date Assessment Result Facility 05-15-2025 Cognitive function Level Of Cons ciousness Awake [facility] Work Phone: 08-06-2023 Cognitive function Voice/Name [facility] Work Phone: 11-14-2022 Cognitive function Level Of Cons ciousness Awake;Alert;Appropriate;Fol lows Commands [facility] Work Phone: 06-12-2022 Cognitive function Voice/Name [facility] Work Phone: 05-10-2022 Cognitive function Awake;Alert;A ppropriate;Fol lows Commands [facility] Work Phone: 05-09-2022 Cognitive function Voice/Name [facility] Work Phone: 05-08-2022 Cognitive function Voice/Name [facility] Work Phone: 05-07-2022 Cognitive function Awake;Alert;A ppropriate;Fol lows Commands [facility] Work Phone: 05-06-2022 Cognitive function Awake;Alert;A ppropriate;Fol lows Commands [facility] Work Phone: 05-03-2022 Cognitive function Voice/Name [facility] Work Phone: 01-22-2022 Cognitive function Voice/Name [facility] Work Phone: 03-10-2015 Because of a physica l, mental, or emotional condition, do you have serious difficulty concentrating, remembering, or making decisions No 03/10/2015 10:55 AM Maricarmen Degroot LPN No [facility] Clinical Notes 07-27-2020 to 06-08-2025 Telephone Encounter - Ana Lam MA - 05/10/2025 4:26 PM EDTTelephone Encounter - Ana Lam MA - 05/10/2025 4:26 PM EDTPatient InstructionsPatient InstructionsPatient Instructions Note Date & Type Note Facility 06-08-2025 Note HNO ID: [id number] Author: LOU OSMAN MA Service: ? Author Type: Slot Shift Manager Type: Progress Notes Filed: 06/08/2025 14:00 Note [...] Osman MA June 08, 2025 1:57 PM [facility] 06-08-2025 Note Patient Outreach (NE TNAV) IVET VALERO ([id number]) 1955 F Date Time Provider Department 06/08/25 LOU OSMAN NETNAV During your visit today, we recorded the following information about you: Lou Osman MA 06/08/2025 2:00 PM Signed POPULATION HEALTH [...] throat Date Reviewed: 03/29/2025 Reviewed by: Marylu Yueng MA - Fully Assessed Reason for Visit: Population Health Navigation Outreach [3910] Cmt: LARY WORKBEPARI JOHNSON PCSA Prescriptions as of 06/08/2025 - omeprazole (PRILOSEC) 40 mg capsule Take 1 capsule by mouth once daily. - promethazine (PHENERGAN) 25 mg tablet Take 1 tablet by mouth every 6 hours as needed for nausea/vomiting. - Insulin [place], Disposable, (BD ULTRA-FINE MINDY PEN NEEDLE) 32 [...] Dispense 2 boxes of 3 pens. - klxrwviiqim-ufxqrflcb-rxtsvymp (TRELEGY ELLIPTA) 200-62.5-25 mcg inhalation powder Inhale [...] mg by mouth once daily. - Insulin [place], Disposable, 32 gauge x 5/16 ndle Use [...] bronchitis with chroni (more content not included)... [facility] 05-15-2025 Discharge summary [facility] 05-15-2025 Radiology Diagnostic study note [facility] Imaging Services [address] [place] [address] Chest without Contrast MR#: [id number] Acct: [id number] Name: IVET VALERO Rep #: [id number] : 1955 F 70 From: Tay Leon MD PCP: Dr. Ricci Cole MD Status: REG E R Study:Chest without Contrast Date of Exam: 05/15/25 Exam# [id number] Ordering Dr: Yahaira Quinn DO PROCEDURE: CHEST [...] renal cyst measures 3.5 cm. Reading Location: [facility] CC: Dr. Ricci Cole MD; Bhavin Quinn DO ~ Job Cost Estimator: Signed [facility] 05-15-2025 Radiology Diagnostic study note [facility] Imaging Services [address] [place] [address] Brain/Head without Contrast MR#: [id number] Acct: [id number] Name: IVET VALERO Rep #: [id number] : 1955 F 70 From: Tay Leon MD PCP: Dr. Ricci Cole MD Status: REG E R Study:Brain/Head without Contrast Date of Exa m: 05/15/25 Exam# [id number] Ordering Dr: Yahaira Quinn DO PROCEDURE: BRAIN/HEAD [...] ischemic gliotic white matter changes. Reading Location: [facility] CC: Dr. Ricci Cole MD; Bhavin Quinn DO ~ Job Cost Estimator: Signed [facility] 05-10-2025 Telephone encounter Note PA for phenergan suppository approved till 05/10/26. Patient was notified Ana Lam MA [facility] 05-10-2025 Miscellaneous Notes PA for phenergan suppository approved till 05/10/26. Patient was notified Ana Lam MA Megha HERNANDEZ Brick Burner Head [facility] called I about Pt's insurance PA for the Phenergan suppository. The Reference # is [id number], she states they will fax the recommendation within 24 hours to providers fax #. Diane Guillermo RN documented in this encounter [facility] 05-10-2025 Telephone encounter Note A prescription for 20 tablets with 2 refills was sent to pharmacy on 04/04/25. Per pharm dispense report, rx was filled and dispensed on 04/05/25, 04/08/25, 04/13/25. Kash Ledesma LPN [facility] 05-10-2025 Miscellaneous Notes A prescription for [...] 6 hours as needed for nausea/vomiting. [facility] May 10, 2025 2:12 PM documented in this encounter [facility] 05-10-2025 Telephone encounter Note Prescription Refill [...] 6 hours as needed for nausea/vomiting. [facility] May 10, 2025 2:12 PM [facility] 05-10-2025 Telephone encounter Note Prescription Refill [...] Tyra Greer May 10, 2025 2:07 PM [facility] 05-10-2025 Miscellaneous Notes Prescription Refill Information [...] 2025 2:07 PM documented in this encounter [facility] 05-10-2025 Telephone encounter Note Megha HERNANDEZ Brick Burner Head with [employer] called I about Pt's insurance PA for the Phenergan suppository. The Reference # is [id number], she states they will fax the recommendation within 24 hours to providers fax #. Diane Guillermo RN [facility] 05-06-2025 Instructions Smiley Melo APRN.CNP - [...] when feeling better documented in this encounter [facility] 05-06-2025 Note HNO ID: [id number] Author: SMILEY MELO APRN.CNP Service: ? Author [...] 6 hours as needed for nausea/vomiting. Insulin Well[place], Disposable, (BD ULTRA-FINE MINDY PEN NEEDLE) 32 [...] E11.9 Dispense 2 boxes of 3 pens. gyvkyohlirc-dpbzgpgtd-dktwdjsh (TRELEGY ELLIPTA) 200-62.5-25 mcg inhalation powder Inhale [...] 300 mg by mouth once daily. Insulin [place], Disposable, 32 gauge x 5/16 ndle U (more content not included)... [facility] 05-06-2025 History of Present illness Narrative This [...] 6 hours as needed for nausea/vomiting. Insulin [place], Disposable, (BD ULTRA-FINE MINDY PEN NEEDLE) 32 [...] E11.9 Dispense 2 boxes of 3 pens. iupbuolulpg-kruagpnaz-ffgdhczk (TRELEGY ELLIPTA) 200-62.5-25 mcg inhalation powder Inhale [...] 300 mg by mouth once daily. Insulin Well[place], Disposable, 32 gauge x 5/16 ndle Use [...] as needed for worsening/no improvement. Smiley Melo, NASEEM.NEUROPHYSIOLOGICAL TECHNICIAN [1] Social History Tobacco Use Smoking status: Some Days Current packs/day: 1.00 Average packs/day: 1 pack/day for 40.0 years (40.0 ttl pk-yrs) Types: Cigarettes Smokeless tobacco: Never Tobacco comments: 3 cigarettes daily? Vaping Use Vaping status: Never Used Substance Use Topics Alcohol use: No Drug use: No documented in this encounter [facility] 2025 Telephone encounter Note Notified patient. [facility] 2025 Miscellaneous Notes Notified patient. Will [...] Please advise patient. documented in this encounter [facility] 2025 Telephone encounter Note Will order Tessalon Perles, 1 Perle swallowed whole every 8 hours as needed for cough. [facility] 2025 Telephone encounter Note Patient phoned [...] macrobid today for UTI. Please advise patient. [facility] 04-04-2025 Telephone encounter Note The following approved medication requests have been transmitted electronically. Requested Prescriptions Pending Prescriptions Disp Refills promethazine (PHENERGAN) 25 mg tablet 20 tablet 2 Sig: Take 1 tablet by mouth every 6 hours as needed for nausea/vomiting. Smiley Melo APRN.CNP [facility] 04-04-2025 Miscellaneous Notes The following approved [...] have any refills left. She is using [facility]. Joycelyn Greer April 04, 2025 4:21 PM documented in this encounter [facility] 04-04-2025 Telephone encounter Note Prescription Refill [...] have any refills left. She is using [facility]. Joycelyn Greer April 04, 2025 4:21 PM [facility] 03-29-2025 Note HNO ID: [id number] Author: SWATHI WALLIS Tech Service: ? Author Type: Research Associate Quality Control Qc Type: Progress Notes Filed: 03/29/2025 12:50 Note [...] PATIENT PRESENTS WITH AN IMPLANTABLE OR ATTACHED MAINS AND SERVICE SUPERVISOR: No RADIOLOGY DEPARTMENT: General X-ray: Exam(s) Completed: Chest X-Ray PERIPHERAL IV DATA: Not applicable SIGNED BY: Odalys Grey March 29, 2025 12:19 PM [facility] 03-29-2025 Note HNO ID: [id number] Author: SMILEY MELO APRN.NEUROPHYSIOLOGICAL TECHNICIAN Service: ? Author Type: Nurse Practitioner Type: [...] 300 mg by mouth once daily. Insulin Well[place], Disposable, 32 gauge x 01/07 ndle Use four times daily with insulin QUEtiapine XR (SEROQUEL XR) 300 mg 24 hr tablet Take 300 mg by mouth daily at bedtime. Blood Pressure Monitor EXLARGE BLOOD PRESSURE CUFF MONITOR KIT checking bp 4 times daily Insulin Well[place], Disposable, (BD ULTRA-FINE MINDY PEN NEEDLE) 32 [...] Hypertension Mother Social (more content not included)... [facility] 03-24-2025 Telephone encounter Note Spoke with patient and she was already notified and has it taken care of. Marylu Yeung MA March 24, 2025 11:43 AM [facility] 03-24-2025 Miscellaneous Notes Spoke with patient and she was already notified and has it taken care of. Marylu Yeung MA March 24, 2025 11:43 AM Let her know not [facility] reports pt's incontinent supplies request was denied of payment due to not reimburseable. [facility] pcp can appeal or go through Medicaid. documented in this encounter [facility] 03-24-2025 Telephone encounter Note Let her know not covered [facility] 03-24-2025 Telephone encounter Note [facility] reports pt's incontinent supplies request was denied of payment due to not reimburseable. [facility] pcp can appeal or go through Medicaid. [facility] 03-10-2025 Note Addended by: SMILEY MELO on: 03/10/2025 11:03 AM Modules accepted: Orders [facility] 03-10-2025 Miscellaneous Notes Addended by: SMILEY MELO on: 03/10/2025 11:03 AM Modules accepted: Orders documented in this encounter [facility] 03-10-2025 Instructions Smiley Melo APRN.CNP - [...] your blood sugars. documented in this encounter [facility] 03-10-2025 Note HNO ID: [id number] Author: SMILEY MELO APRN.CNP Service: ? Author [...] scale up to 38 units tid. Insulin [place], Disposable, (BD ULTRA-FINE MINDY PEN NEEDLE) 32 [...] 300 mg by mouth once daily. Insulin [place], Disposable, 32 gauge x 01/07 ndle Use [...] packs/day: 1.00 Aver (more content not included)... [facility] 03-10-2025 History of Present illness Narrative This [...] scale up to 38 units tid. Insulin Well[place], Disposable, (BD ULTRA-FINE MINDY PEN NEEDLE) 32 [...] 300 mg by mouth once daily. Insulin [place], Disposable, 32 gauge x 5/16 ndle Use [...] Smiley Melo APRN.SINGH documented in this encounter [facility] 03-09-2025 Telephone encounter Note Pt called and is notified of providers message. Pt voices understanding. Pt scheduled tomorrow with Duyen Melo NP. Diane Guillermo RN [facility] 03-09-2025 Miscellaneous Notes Pt called and [...] call and antibiotic in for her to [facility] in [place]. Please call and advise. Diane Guillermo RN documented in this encounter [facility] 03-09-2025 Telephone encounter Note Agree. Needs seen [facility] 03-09-2025 Telephone encounter Note Pt called [...] call and antibiotic in for her to [facility] in [place]. Please call and advise. Diane Guillermo RN [facility] 03-08-2025 Telephone encounter Note Pt requesting rx to go to [facility]. Kash Ledesma LPN [facility] 03-08-2025 Miscellaneous Notes Pt requesting rx to go to [facility]. Kash Ledesma LPN Prescription Refill Information The [...] 2025 8:21 AM documented in this encounter [facility] 03-08-2025 Telephone encounter Note Prescription Refill [...] Kareen Lam March 08, 2025 8:21 AM [facility] 03-04-2025 Telephone encounter Note Patient was made aware of the results. Patient verbalizes understanding. Marylu Yeung Ma [facility] 03-04-2025 Miscellaneous Notes Patient was made [...] disease B12 level is very low. Please pick pulling machine operator dggc-srg-ivqjnbs B12 1000 mcg and take it every [...] disease B12 level is very low. Please pick pulling machine operator mtat-rff-iggwmdt B12 1000 mcg and take it every [...] infection has resolved. documented in this encounter [facility] 03-04-2025 Telephone encounter Note ----- Message [...] disease B12 level is very low. Please pick pulling machine operator hutx-mfb-czizjzv B12 1000 mcg and take it every day. It is inexpensive and readily available at most grocery stores or big box stores. Diabetes is not well-controlled with a hemoglobin A1c of 7.9%. Remember to follow a diet low in saturated fat and we can adjust medications accordingly. Finally, vitamin D level is still low. Increase ergocalciferol to every other week. [facility] 03-04-2025 Telephone encounter Note ----- Message from Smiley Melo sent at 03/03/2025 12:28 PM EDT ----- Please let patient know that the nitrofurantoin that I prescribed for her bladder infection should be effective against the E. coli infection that she has. Please repeat urinalysis once antibiotic is complete to make certain that infection has resolved. [facility] 03-03-2025 Progress note Formatting of t [...] disease B12 level is very low. Please pick pulling machine operator igvk-vcg-gaafdjt B12 1000 mcg and take it every day. It is inexpensive and readily available at most grocery stores or [employer] stores. Diabetes is not well-controlled with a hemoglobin A1c of 7.9%. Remember to follow a diet low in saturated fat and we can adjust medications accordingly. Finally, vitamin D level is still low. Increase ergocalciferol to every other week. [facility] 03-03-2025 Progress note Formatting of t his note might be different from the original. Please let patient know that the nitrofurantoin that I prescribed for her bladder infection should be effective against the E. coli infection that she has. Please repeat urinalysis once antibiotic is complete to make certain that infection has resolved. [facility] 03-03-2025 Telephone encounter Note The following [...] Uncontrolled E11.65 Insulin: Yes Smiley Melo APRN.CNP [facility] 03-03-2025 Miscellaneous Notes The following approved [...] send to pharmacy documented in this encounter [facility] 03-03-2025 Telephone encounter Note MEDICARE now require name brand on rx. Please send to pharmacy [facility] 03-01-2025 Note Addended by: SMILEY MELO on: 03/01/2025 10:45 AM Modules accepted: Orders [facility] 03-01-2025 Miscellaneous Notes Addended by: SMILEY MELO on: 03/01/2025 10:45 AM Modules accepted: Orders Addended by: SMILEY MELO on: 03/01/2025 10:14 AM Modules accepted: Orders documented in this encounter [facility] 03-01-2025 Note Addended by: SMILEY MELO on: 03/01/2025 10:14 AM Modules accepted: Orders [facility] 03-01-2025 Instructions Smiley Melo APRN.CNP - 03/01/2025 10:05 AM EDT - Fill and start the azithromycin ( Z-Pavel ) prescription for your chest infection; it has been sent to [facility]. - Fill and start the nitrofurantoin (Macrobid) prescription for your urinary tract infection; it has been sent to [facility]. - Go to the lab today to have the blood work drawn as ordered. - supervisor phosphatic fertilizer your new glucose meter and test strips at [facility] once they arrive. documented in this encounter [facility] 03-01-2025 Note HNO ID: [id number] Author: SMILEY MELO APRN.CNP Service: ? Author [...] MD (Endocrinology) Estefania, Dylan Huffman DO as Automation Architect (Gastroenterology) Nanci Huber APRN.CNP as Brass Molder (Family Medicine) Smiley Melo APRN.CNP as Brass Molder (Family Medicine) Concerns today: Cough, congestion and [...] disorder PAST SURGIC (more content not included)... [facility] 03-01-2025 History of Present illness Narrative Chief [...] MD (Endocrinology) Estefania, Dylan Huffman DO as Automation Architect (Gastroenterology) Nanci Huber APRN.NEUROPHYSIOLOGICAL TECHNICIAN as Brass Molder (Family Medicine) Smiley Melo APRN.NEUROPHYSIOLOGICAL TECHNICIAN as Brass Molder (Family Medicine) Concerns today: Cough, congestion and [...] Reported on 03/01/2025) 180 tablet 3 Insulin [place], Disposable, (BD ULTRA-FINE MINDY PEN NEEDLE) 32 [...] 300 mg by mouth once daily. Insulin [place], Disposable, 32 gauge x 5/16 ndle Use [...] glucose meter and test strips through [facility]. - Advised dietary management. - Scheduled for [...] Plans: 3 m documented in this encounter [facility] 02-15-2025 Note Patient Outreach (FA MPWS) ---- IVET VALERO ([id number]) 1955 F Date Time Provider Department 02/15/25 [...] Date Reviewed: 07/26/2024 Reviewed by: Smiley Melo APRN.NEUROPHYSIOLOGICAL TECHNICIAN - Fully Assessed Visit Diagnosis:Encounter for screening mammogram for breast cancer [Z12.31] Order(s):JANELL SCREENING Debora SUTHERLAND [[id number]] Order #: [id number] FUTURE Prescriptions as of 03/18/2025 - predniSONE [...] up to 38 units tid. - Insulin [place], Disposable, ([employer] ULTRA-FINE MINDY PEN NEEDLE) 32 gauge x [...] mg by mouth once daily. - Insulin [place], Disposable, 32 gauge x 5/16 ndle Use [...] Encounter Status:Closed by ANN-MARIE MARTINEZ on 03/18/25 [facility] 01-25-2025 Telephone encounter Note Patient requesting medication that is : promethazine (PHENERGAN) 25 mg suppository Patient last seen: 07-26-24 Future visit scheduled: yes PHARMACY: [facility] 01-25-2025 Miscellaneous Notes Patient requesting medication that is : promethazine (PHENERGAN) 25 mg suppository Patient last seen: 07-26-24 Future visit scheduled: yes PHARMACY: [facility] documented in this encounter [facility] 01-03-2025 Note HNO ID: [id number] Author: LOU OSMAN MA Service: ? Author Type: Slot Shift Manager Type: Progress Notes Filed: 01/03/2025 16:34 Note [...] Osman MA January 03, 2025 4:04 PM [facility] 01-03-2025 History of Present illness Narrative POPULATION [...] 2025 4:04 PM documented in this encounter [facility] 01-03-2025 Note Patient Outreach (NE TNAV) ---- ANJUMIVET ([id number]) 1955 F Date Time Provider Department 01/03/25 [...] Date Reviewed: 07/26/2024 Reviewed by: Smiley Melo APRN.NEUROPHYSIOLOGICAL TECHNICIAN - Fully Assessed Reason for Visit: Population Health Navigation Outreach [3910] Cmt: LARY RIDDLE Primary Visit Diagnosis:Uncontrolled type 2 diabetes mellitus with hyperglycemia (HCC) [E11.65] Order(s):HEMOGLOBIN A1C [MQYPY1I] Order #: [id number] FUTURE COMPLETE BLOOD COUNT AND DIFFERENTIAL [SQCBCDIF] Order #: [id number] FUTURE COMPREHENSIVE METABOLIC PANEL [SQCMP] Order #: [id number] FUTURE LIPID PANEL, FASTING [SQLIPB] Order #: [id number] FUTURE Prescriptions as of 01/03/2025 - insulin [...] mouth two times a day. - Insulin [place], Disposable, (BD ULTRA-FINE MINDY PEN NEEDLE) 32 [...] tablet by mouth once daily. - Insulin [place], Disposable, 32 gauge x 5/16 ndle Use [...] 02/29/2020 SOB (shortn (more content not included)... [facility] 12-28-2024 Telephone encounter Note Completed form faxed [facility] 12-28-2024 Miscellaneous Notes Completed form faxed Fax received. Type of form: Certificate of Medical Necessity Form received via fax When form is completed, Fax form to IS at [phone] Form has been forwarded to Physician: Dr Kelsey Yeung MA Ivet is a patient of MD geraldine Martines from [employer] called and stated she will be faxing the order form for incontinent supplies to [phone]. Please call with any questions. Patient has been identified by name and birthdate. Was an appointment scheduled: No Closing statement: Results or non-symptom based questions: Thank you for calling [facility], your call will be returned within the next business day. Joycelyn Vicente Pss documented in this encounter [facility] 12-27-2024 Telephone encounter Note Fax received. Type of form: Certificate of Medical Necessity Form received via fax When form is completed, Fax form to [employer] at [phone] Form has been forwarded to Physician: Dr Kelsey Yeung MA [facility] 12-24-2024 Telephone encounter Note The patient [...] Quinonez RN December 24, 2024 4:14 PM [facility] 12-24-2024 Miscellaneous Notes The patient has [...] 2024 4:14 PM documented in this encounter [facility] 12-23-2024 Telephone encounter Note Ivet is a patient of MD geraldine Martines from [employer] called and stated she will be faxing the order form for incontinent supplies to [phone]. Please call with any questions. Patient has been identified by name and birthdate. Was an appointment scheduled: No Closing statement: Results or non-symptom based questions: Thank you for calling [facility], your call will be returned within the next business day. Joycelyn Greer [facility] 11-10-2024 Telephone encounter Note Pt has [...] has bronchitis. 6. :n/a Protocols used: Urinary Ypsdoiay-CENCH-KR, Urination Pain - Ueihrp-REOJJ-ZW, Cough - Acute Ikxyyrlcsk-IFAHU-TN [facility] 11-10-2024 Miscellaneous Notes Pt has been [...] has bronchitis. 6. :n/a Protocols used: Urinary Vjjgjuni-KJCKT-ZX, Urination Pain - Gplglx-PSITC-MK, Cough - Acute Lhwrelytzf-MIXEI-PN documented in this encounter [facility] 10-19-2024 Telephone encounter Note Prescription Refill [...] Mahsa Myers October 19, 2024 10:04 AM [facility] 10-19-2024 Miscellaneous Notes Prescription Refill Information [...] 2024 10:04 AM documented in this encounter [facility] 10-05-2024 Telephone encounter Note Larissa Chacon [...] Guillermo RN October 05, 2024 9:54 AM [facility] 10-05-2024 Miscellaneous Notes Larissa Chacon report [...] 2024 9:54 AM documented in this encounter [facility] 09-22-2024 Telephone encounter Note Prescription Refill [...] Joycelyn Greer September 22, 2024 10:18 AM [facility] 09-22-2024 Miscellaneous Notes Prescription Refill Information [...] 2024 10:18 AM documented in this encounter [facility] 07-29-2024 Note Addended by: SMILEY MELO on: 07/29/2024 09:53 AM Modules accepted: Orders [facility] 07-29-2024 Telephone encounter Note Order resent [facility] 07-29-2024 Miscellaneous Notes Addended by: SMILEY MELO on: 07/29/2024 09:53 AM Modules accepted: Orders Order resent [place] pharmacist from [facility] calling in this morning to say [...] prescription got lost. documented in this encounter [facility] 07-29-2024 Telephone encounter Note [place] pharmacist from [facility] calling in this morning to say [...] to [place] since previous prescription got lost. [facility] 07-26-2024 Telephone encounter Note Pharm [...] Flor LPN July 26, 2024 11:06 AM [facility] 07-26-2024 Miscellaneous Notes Pharm requesting [...] 2024 11:06 AM documented in this encounter [facility] 07-26-2024 Instructions Smiley Melo APRN.NEUROPHYSIOLOGICAL TECHNICIAN - 07/26/2024 10:03 AM EST 1) Bone density ordered 2) Lung cancer screening team to call you 3) Stool card 4) Consult [facility] for diabetes exam and cataracts [...] usual activities immediately. documented in this encounter [facility] 07-26-2024 Note HNO ID: [id number] Author: SMILEY MELO APRN.SINGH Service: ? Author [...] Pt. Has Hx of UTI frequently Migraine wfkxy-kkzba-bul frontal and occipital. Has a workers comp [...] 6 hours as needed for nausea/vomiting. Insulin [place], Disposable, (BD ULTRA-FINE MINDY PEN NEEDLE) 32 gauge x 5/32 Use one needle for each dose, 4 times daily. (4mm) Lancets lancets Test blood sugar(s) 3-4 times daily. Dx: Type 2 DM-Controlled Insulin: Yes blood sugar diagnostic (BLOOD GLUCOSE TEST) test strip Test blood sugar(s) 3-4 times daily. Dx: Type 2 DM - Controlled E11.9 Insulin: Yes Insulin [place], Disposable, 32 gauge x 5/16 ndle Use [...] Types: Cigarettes Sm (more content not included)... [facility] 07-26-2024 History of Present illness Narrative This [...] Pt. Has Hx of UTI frequently Migraine tzhjy-qtbjm-zjj frontal and occipital. Has a workers comp [...] 6 hours as needed for nausea/vomiting. Insulin [place], Disposable, ([employer] ULTRA-FINE MINDY PEN NEEDLE) 32 gauge x 5/32 Use one needle for each dose, 4 times daily. (4mm) Lancets lancets Test blood sugar(s) 3-4 times daily. Dx: Type 2 DM-Controlled Insulin: Yes blood sugar diagnostic (BLOOD GLUCOSE TEST) test strip Test blood sugar(s) 3-4 times daily. Dx: Type 2 DM - Controlled E11.9 Insulin: Yes Insulin [place], Disposable, 32 gauge x 5/16 ndle Use [...] complication, without long-term current use of insulin ([facility]) - ICD9: 250.00, ICD10: E11.9 - Control [...] as needed for worsening/no improvement. Smiley Melo APRN.NEUROPHYSIOLOGICAL TECHNICIAN documented in this encounter [facility] 07-19-2024 Note HNO ID: [id number] Author: HERSON ASHFORD RN Service: ? Author Type: Registered Nurse Type: Progress Notes Filed: 07/19/2024 11:01 Note Text: [facility] Telephonic Outreach Provider Action/FYI Contacted for: Routine Telephonic Outreach Contact made with patient: No, unable to leave message. Will reattempt call Herson Ashford RN July 19, 2024 11:01 AM [facility] 07-19-2024 History of Present illness Narrative [facility] Telephonic Outreach Provider Action/FYI Contacted for: Routine Telephonic Outreach Contact made with patient: No, unable to leave message. Will reattempt call Herson Ashford RN July 19, 2024 11:01 AM documented in this encounter [facility] 07-19-2024 Note Patient Outreach (AM [facility]) ---- IVET VALERO ([id number]) 1955 F Date Time Provider Department 07/19/24 HERSON ASHFORD [facility] During your visit today, we recorded the following information about you: Herson Ashford RN 07/19/2024 11:01 AM Signed [facility] Telephonic Outreach Provider Action/FYI Contacted for: Routine [...] mouth two times a day. - Insulin [place], Disposable, (BD ULTRA-FINE MINDY PEN NEEDLE) 32 [...] tablet by mouth once daily. - Insulin [place], Disposable, 32 gauge x 5/16 ndle Use [...] Encounter Status:Closed by HERSON ASHFORD on 07/19/24 [facility] 07-16-2024 Note HNO ID: [id number] Author: HERSON ASHFORD RN Service: ? Author Type: Registered Nurse Type: Progress Notes Filed: 07/16/2024 13:25 Note Text: [facility] Telephonic Outreach Provider Action/FYI Contacted for: Routine Telephonic Outreach Contact made with patient: No, unable to leave message. Will reattempt call Herson Ashford RN July 16, 2024 1:25 PM Phone rings-no voicemail set up [facility] 07-16-2024 History of Present illness Narrative [facility] Telephonic Outreach Provider Action/FYI Contacted for: Routine Telephonic Outreach Contact made with patient: No, unable to leave message. Will reattempt call Herson Ashford RN July 16, 2024 1:25 PM Phone rings-no voicemail set up documented in this encounter [facility] 07-16-2024 Note Patient Outreach (AM [facility]) ---- IVET VALERO ([id number]) 1955 F Date Time Provider Department 07/16/24 HERSON ASHFORD [facility] During your visit today, we recorded the following information about you: Herson Ashford RN 07/16/2024 1:25 PM Signed [facility] Telephonic Outreach Provider Action/FYI Contacted for: Routine [...] Date Reviewed: 04/29/2024 Reviewed by: Smiley Melo APRN.NEUROPHYSIOLOGICAL TECHNICIAN - Fully Assessed Reason for Visit: community [...] mouth two times a day. - Insulin [place], Disposable, (BD ULTRA-FINE MINDY PEN NEEDLE) 32 [...] tablet by mouth once daily. - Insulin [place], Disposable, 32 gauge x 5/16 ndle Use [...] Encounter Status:Closed by HERSON ASHFORD on 07/16/24 [facility] 07-14-2024 Note HNO ID: [id number] Author: HERSON ASHFORD RN Service: ? Author Type: Registered Nurse Type: Progress Notes Filed: 07/14/2024 13:00 Note Text: [facility] Telephonic Outreach Provider Action/FYI Contacted for: Routine Telephonic Outreach Contact made with patient: Yes Patient identified by name and date of . Discussed care with patient Are you experiencing any new or worsening symptoms you need to talk about today? No Based on community arts centre manager, the following disposition is advised: No symptoms [...] Ashford RN July 14, 2024 12:54 PM [facility] 07-14-2024 History of Present illness Narrative [facility] Telephonic Outreach Provider Action/FYI Contacted for: Routine Telephonic Outreach Contact made with patient: Yes Patient identified by name and date of . Discussed care with patient Are you experiencing any new or worsening symptoms you need to talk about today? No Based on community arts centre manager, the following disposition is advised: No symptoms [...] 2024 12:54 PM documented in this encounter [facility] 07-14-2024 Note Patient Outreach (AM [facility]) ---- IVET VALERO ([id number]) 1955 F Date Time Provider Department 07/14/24 [...] to talk about today? No Based on community arts centre manager, the following disposition is advised: No symptoms [...] and his recent hospitalization. Listened with [facility], social work Will consider and we will [...] Date Reviewed: 04/29/2024 Reviewed by: Smiley Melo APRN.NEUROPHYSIOLOGICAL TECHNICIAN - Fully Assessed Reason for Visit: community [...] mouth two times a day. - Insulin [place], Disposable, (BD ULTRA-FINE MINDY PEN NEEDLE) 32 [...] tablet by mouth once daily. - Insulin [place], Disposable, 32 gauge x 5/16 ndle Use [...] Chronic cough [R0 (more content not included)... [facility] 06-16-2024 Note HNO ID: [id number] Author: HERSON ASHFORD RN Service: ? Author Type: Registered Nurse Type: Progress Notes Filed: 06/16/2024 09:05 Note Text: [facility] Telephonic Outreach Provider Action/FYI Contacted for: Routine Telephonic Outreach Contact made with patient: Yes Patient identified by name and date of . Discussed care with patient Are you experiencing any new or worsening symptoms you need to talk about today? Yes Based on community arts centre manager, the following disposition is advised: No symptoms [...] Ashford RN June 16, 2024 9:00 AM [facility] 06-16-2024 History of Present illness Narrative [facility] Telephonic Outreach Provider Action/FYI Contacted for: Routine Telephonic Outreach Contact made with patient: Yes Patient identified by name and date of . Discussed care with patient Are you experiencing any new or worsening symptoms you need to talk about today? Yes Based on community arts centre manager, the following disposition is advised: No symptoms [...] 2024 9:00 AM documented in this encounter [facility] 06-16-2024 Note Patient Outreach (AM [facility]) ---- IVET VALERO ([id number]) 1955 F Date Time Provider Department [facility] your visit today, we recorded the following information about you: Herson Ashford RN 06/16/2024 9:05 AM Signed [facility] Telephonic Outreach Provider Action/FYI Contacted for: Routine Telephonic Outreach Contact made with patient: Yes Patient identified by name and date of . Discussed care with patient Are you experiencing any new or worsening symptoms you need to talk about today? Yes Based on community arts centre manager, the following disposition is advised: No symptoms [...] Date Reviewed: 04/29/2024 Reviewed by: Smiley Melo APRN.NEUROPHYSIOLOGICAL TECHNICIAN - Fully Assessed Reason for Visit: community [...] mouth two times a day. - Insulin [place], Disposable, (BD ULTRA-FINE MINDY PEN NEEDLE) 32 [...] tablet by mouth once daily. - Insulin [place], Disposable, 32 gauge x 5/16 ndle Use [...] Rash [R21] 01/01/2021 (more content not included)... [facility] 06-10-2024 History of Present illness Narrative [facility] Telephonic Outreach Provider Action/FYI Contacted for: Routine Telephonic Outreach Contact made with patient: No, unable to leave message. Third attempt - patient is unable to be reached. Herson Ashford RN June 10, 2024 11:08 AM Phone rings-no voicemail set up documented in this encounter [facility] 06-09-2024 Telephone encounter Note Script was set to print so will fax to pharmacy. [facility] 06-09-2024 Miscellaneous Notes Script was set [...] 2024 8:34 AM documented in this encounter [facility] 06-09-2024 Telephone encounter Note The patient [...] Quinonez RN June 09, 2024 8:34 AM [facility] 06-08-2024 History of Present illness Narrative [facility] Telephonic Outreach Provider Action/FYI Contacted for: Routine Telephonic Outreach Contact made with patient: No, unable to leave message. Will reattempt call Herson Ashford RN June 08, 2024 10:14 AM No voicemail set up Urology follow up UTI's documented in this encounter [facility] 06-07-2024 History of Present illness Narrative [facility] Telephonic Outreach Provider Action/FYI Contacted for: Routine Telephonic Outreach Contact made with patient: No, unable to leave message. Will reattempt call Herson Ashford RN June 07, 2024 1:00 PM Phone rings- no voicemail Referral to Urology -persistent UTI-e coli documented in this encounter [facility] 05-13-2024 Telephone encounter Note Faxed order as requested. Marylu Yeung MA May 13, 2024 10:31 AM [facility] 05-13-2024 Miscellaneous Notes Faxed order as requested. Marylu Yeung MA May 13, 2024 10:31 AM Spoke with patient declined to travel to other sites, and declined a male provider requesting to have referral sent to Dr Meredith Oropeza office in [place]. Patient returned call and went over notes below from Thong Melo [employer] with understanding. Assisted with transfer to corporate scheduler to get Urology appt set up. Pt notified of antibiotic and transferred to main line to schedule Please let patient know that I sent ciprofloxacin twice daily for 10 days. Please make sure that she takes all of it. Get her scheduled for urology soon as possible. We cannot seem to eradicate this E. Coli infection documented in this encounter [facility] 05-13-2024 Telephone encounter Note Spoke with patient declined to travel to other sites, and declined a male provider requesting to have referral sent to Dr Meredith Oropeza office in [place]. [facility] 05-13-2024 Telephone encounter Note Patient returned call and went over notes below from Thong Melo [employer] with understanding. Assisted with transfer to corporate scheduler to get Urology appt set up. [facility] 05-13-2024 Telephone encounter Note Pt notified of antibiotic and transferred to main line to schedule [facility] 05-13-2024 Telephone encounter Note Please let patient know that I sent ciprofloxacin twice daily for 10 days. Please make sure that she takes all of it. Get her scheduled for urology soon as possible. We cannot seem to eradicate this E. Coli infection [facility] 05-11-2024 Telephone encounter Note Pt called and is notified of providers results and instructions. Pt voices understanding. Pt will call back in to schedule appointment as her phone was going to . Diane Guillermo, RN [facility] 05-11-2024 Miscellaneous Notes Pt called and is notified of providers results and instructions. Pt voices understanding. Pt will call back in to schedule appointment as her phone was going to . Diane Guillermo, RN Please let patient know that E. coli persists in her urine. I am going to refer her to urology. documented in this encounter [facility] 05-11-2024 Telephone encounter Note Please let patient know that E. coli persists in her urine. I am going to refer her to urology. [facility] 05-10-2024 Telephone encounter Note Megha with [facility] calls to request refill on Toujeo. Requesting a 31 day supply of Toujeo. Pended per request. Last OV: 05/10/2024 Next OV: 06/11/2024 Sue Quinonez RN [facility] 05-10-2024 Miscellaneous Notes Megha with [facility] calls to request refill on Toujeo. Requesting a 31 day supply of Toujeo. Pended per request. Last OV: 05/10/2024 Next OV: 06/11/2024 Sue Quinonez RN documented in this encounter [facility] 05-05-2024 History of Present illness Narrative [facility] Telephonic Outreach Provider Action/FYI Contacted for: Routine Telephonic Outreach Contact made with patient: Yes Patient identified by name and date of . Discussed care with patient Are you experiencing any new or worsening symptoms you need to talk about today? No Based on community arts centre manager, the following disposition is advised: No symptoms [...] 2024 1:05 PM documented in this encounter [facility] 05-04-2024 History of Present illness Narrative [facility] Telephonic Outreach Provider Action/FYI Contacted for: Routine Telephonic Outreach Contact made with patient: No, unable to leave message. Will reattempt call Herson Ashford RN May 04, 2024 1:14 PM Phone rings-no voicemail set up documented in this encounter [facility] 05-03-2024 Telephone encounter Note Patient notified. [facility] 05-03-2024 Miscellaneous Notes Patient notified. Please let pt. Know that she has E coli infection UTI. Nitrofurantoin is effective to treat this infection. We should retest once antibiotic is complete. documented in this encounter [facility] 05-03-2024 Telephone encounter Note Please let pt. Know that she has E coli infection UTI. Nitrofurantoin is effective to treat this infection. We should retest once antibiotic is complete. [facility] 04-29-2024 Telephone encounter Note Order located on [place] desk that was signed by physician. Faxed to requested number. [phone] [facility] 04-29-2024 Miscellaneous Notes Order located on [place] desk that was signed by physician. Faxed to requested number. [phone] After hours can't find fax #. Phone [...] Pt states she has seen Nanci Huber [employer] 08/27/23 and Smiley Melo [employer] 03/23/24, she has a hard time getting in and has to have someone drive her d/t her cataracts. Please call Pt and let her know when the forms have been sent for these supplies. documented in this encounter [facility] 04-29-2024 Instructions Smiley Melo APRN.SINGH - 04/29/2024 2:48 PM EDT 1) Consult dermatology 2) [employer] needs orders filled out of sheet that was faxed ? 3) Nitrofurantoin 2 x day 4) Increase carvedilol to 25 mg 2 x day- for blood pressure 5) Start topiramate 25 mg 2 x day 6) Repeat urine culture once antibiotic is finished 7) Follow up in 1 month documented in this encounter [facility] 04-29-2024 History of Present illness Narrative [...] 6 hours as needed for nausea/vomiting. Insulin [place], Disposable, (BD ULTRA-FINE MINDY PEN NEEDLE) 32 [...] 1 tablet by mouth once daily. Insulin [place], Disposable, 32 gauge x 5/16 ndle Use [...] x day 6. Stress incontinence - ICD9: [id number], ICD10: N39.3 Needs more urinary supplies 7. [...] Smiley Melo APRN.SINGH documented in this encounter [facility] 04-23-2024 Telephone encounter Note After hours can't find fax #. Phone # [facility] 04-23-2024 Telephone encounter Note The patient [...] Quinonez RN April 23, 2024 3:29 PM [facility] 04-23-2024 Miscellaneous Notes The patient has [...] 2024 3:29 PM documented in this encounter [facility] 04-23-2024 Telephone encounter Note I am assuming she means a dme script. printed [facility] 04-22-2024 Telephone encounter Note Pt called in to get incontinence supplies ordered through [employer]. She states she has to have a letter filled out by the provider and sent to the company. Pt states she gets attends, 3 types of pads (2 that go inside the attends), chucks, and gloves. Pt states she has seen Nanci Huber [employer] 08/27/23 and Smiley Melo [employer] 03/23/24, she has a hard time getting in and has to have someone drive her d/t her cataracts. Please call Pt and let her know when the forms have been sent for these supplies. [facility] 04-20-2024 Telephone encounter Note Prescription Refill [...] Joyce Greer April 20, 2024 11:52 AM [facility] 04-20-2024 Miscellaneous Notes Prescription Refill Information [...] 2024 11:52 AM documented in this encounter [facility] 04-12-2024 Telephone encounter Note The following approved medication requests have been transmitted electronically. Requested Prescriptions Pending Prescriptions Disp Refills insulin glargine U-300 conc (TOUJEO) 300 unit/mL (1.5 mL) 5 Each 0 Sig: Inject 80 Units subcutaneously every morning. E11.9 Smiley Melo APRN.CNP [facility] 04-12-2024 Miscellaneous Notes The following approved [...] 2024 2:18 PM documented in this encounter [facility] 04-12-2024 Telephone encounter Note The patient [...] Willis RN April 12, 2024 2:18 PM [facility] 04-06-2024 History of Present illness Narrative [facility] Telephonic Outreach Provider Action/FYI Contacted for: Routine Telephonic Outreach Contact made with patient: No, unable to leave message. Will reattempt call Herson Ashford RN April 06, 2024 3:27 PM [facility] Telephonic Outreach Provider Action/FYI Contacted for: Routine Telephonic Outreach Contact made with patient: No, unable to leave message. Will reattempt call Herson Ashford RN April 06, 2024 12:49 PM No voicemail documented in this encounter [facility] 04-02-2024 History of Present illness Narrative [facility] Telephonic Outreach Provider Action/FYI Contacted for: Routine Telephonic Outreach Contact made with patient: Yes Patient identified by name and date of . Discussed care with patient Are you experiencing any new or worsening symptoms you need to talk about today? Yes Based on community arts centre manager, the following disposition is advised: No symptoms [...] 2024 3:50 PM documented in this encounter [facility] 04-02-2024 Telephone encounter Note Prescription Refill [...] Joycelyn Greer April 02, 2024 9:36 AM [facility] 04-02-2024 Miscellaneous Notes Prescription Refill Information [...] 2024 9:36 AM documented in this encounter [facility] 03-25-2024 Telephone encounter Note Patient notified. [facility] 03-25-2024 Miscellaneous Notes Patient notified. Urinary tract infection showed E. coli. The nitrofurantoin should be effective in eradicating this bacteria. We need to recheck a urine culture when she completes the antibiotic. documented in this encounter [facility] 03-25-2024 Telephone encounter Note Urinary tract infection showed E. coli. The nitrofurantoin should be effective in eradicating this bacteria. We need to recheck a urine culture when she completes the antibiotic. [facility] 03-24-2024 Telephone encounter Note The patient [...] Willis RN March 24, 2024 1:54 PM [facility] 03-24-2024 Miscellaneous Notes The patient has [...] 2024 1:54 PM documented in this encounter [facility] 03-23-2024 Instructions Smiley Melo APRN.CNP - 03/23/2024 1:11 PM EDT - PHENAZOPYRIDINE 200 MG TABLET 3 x day as needed for urinary discomfort - NITROFURANTOIN MONOHYDRATE & MACROCRYSTAL 100 MG ORAL CAP 2 x day for infection - Ketoconazole shampoo as a wash - mammal control agent on cool setting - Apply nystatin powder 2 x day - Use towel as a barrier under breasts - Needs APPT. For 2 weeks documented in this encounter [facility] 03-23-2024 History of Present illness Narrative [...] 80 Units subcutaneously every morning. E11.9 Insulin [place], Disposable, (BD ULTRA-FINE MINDY PEN NEEDLE) 32 [...] 1 tablet by mouth once daily. Insulin [place], Disposable, 32 gauge x 5/16 ndle Use four times daily with insulin QUEtiapine XR (SEROQUEL XR) 300 mg 24 hr tablet Take 300 mg by mouth daily at bedtime. Blood Pressure Monitor 1 Each once daily. Blood Pressure Monitor [facility] MONITOR KIT checking bp [...] - Ketoconazole shampoo as a wash - mammal control agent on cool setting - Apply nystatin powder [...] Smiley Melo APRN.CNP documented in this encounter [facility] 03-22-2024 Telephone encounter Note Patient called [...] vaginal discharge. Protocols used: Urination Pain - Abdnul-CTOAI-WC [facility] 03-22-2024 Miscellaneous Notes Patient called for [...] vaginal discharge. Protocols used: Urination Pain - Sxmblg-QKBUY-IH documented in this encounter [facility] 03-16-2024 Telephone encounter Note Prescription Refill [...] Laurel Terrazas March 16, 2024 2:49 PM [facility] 03-16-2024 Miscellaneous Notes Prescription Refill Information [...] hours as needed for nausea/vomiting. Laurel Tirado [facility] [place] 16, 2024 2:49 PM documented in this encounter [facility] 03-08-2024 Telephone encounter Note Patient has been identified by name and date of : Yes Patient phones for refill(s): Requested Prescriptions Pending Prescriptions Disp Refills insulin glargine U-300 conc (TOUJEO) 300 unit/mL (1.5 mL) 5 Each 5 Sig: Inject 80 Units subcutaneously every morning. E11.9 Insulin [place], Disposable, (BD ULTRA-FINE MINDY PEN NEEDLE) 32 gauge x 5/32 120 Each 11 Sig: Use one needle for each dose, 4 times daily. (4mm) Date of last office visit in primary care: 08/27/2023 Date of next office visit in primary care: Visit date not found Please advise. Thank you. Mirian Mckinnon. [facility] 03-08-2024 Miscellaneous Notes Patient has been identified by name and date of : Yes Patient phones for refill(s): Requested Prescriptions Pending Prescriptions Disp Refills insulin glargine U-300 conc (TOUJEO) 300 unit/mL (1.5 mL) 5 Each 5 Sig: Inject 80 Units subcutaneously every morning. E11.9 Insulin [place], Disposable, (BD ULTRA-FINE MINDY PEN NEEDLE) 32 gauge x 5/32 120 Each 11 Sig: Use one needle for each dose, 4 times daily. (4mm) Date of last office visit in primary care: 08/27/2023 Date of next office visit in primary care: Visit date not found Please advise. Thank you. Mirian Mckinnon. documented in this encounter [facility] 03-05-2024 History of Present illness Narrative [facility] Telephonic Outreach Provider Action/FYI No concerns Contacted for: Routine Telephonic Outreach Contact made with patient: Yes Patient identified by name and date of . Discussed care with patient Are you experiencing any new or worsening symptoms you need to talk about today? No Based on community arts centre manager, the following disposition is advised: No symptoms or symptoms present, not severe. Routed to: No Action Needed PEGGY Education Provided this Outreach: No Herson Ashford RN March 05, 2024 4:30 PM documented in this encounter [facility] 02-20-2024 Telephone encounter Note Prescription Refill [...] Asmita Greer February 20, 2024 9:51 AM [facility] 02-20-2024 Miscellaneous Notes Prescription Refill Information [...] 2024 9:51 AM documented in this encounter [facility] 02-05-2024 History of Present illness Narrative [facility] Telephonic Outreach Provider Action/FYI Phone rings -picks up -no voicemail Contacted for: Routine Telephonic Outreach Contact made with patient: No, unable to leave message. Third attempt - patient is unable to be reached. Herson Ashford RN February 05, 2024 1:04 PM documented in this encounter [facility] 02-05-2024 History of Present illness Narrative [facility] Telephonic Outreach Provider Action/FYI Phone rings- no voicemail Contacted for: Routine Telephonic Outreach Contact made with patient: No, unable to leave message. Will reattempt call Herson Ashford RN February 05, 2024 9:40 AM documented in this encounter [facility] 02-04-2024 Telephone encounter Note Prescription Refill [...] Willis RN February 04, 2024 10:27 AM [facility] 02-04-2024 Miscellaneous Notes Prescription Refill Information [...] 2024 10:27 AM documented in this encounter [facility] 02-04-2024 History of Present illness Narrative [facility] Telephonic Outreach Provider Action/FYI Phone rings- no voicemail Contacted for: Routine Telephonic Outreach Contact made with patient: No, unable to leave message. Will reattempt call Herson Ashford RN February 04, 2024 3:26 PM documented in this encounter [facility] 01-30-2024 History of Present illness Narrative [...] working. 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 Advised to be seen at [facility] after family gets off work this evening. [...] to talk about today? Yes Based on community arts centre manager, the following disposition is advised: No symptoms or symptoms present, not severe. Routed to: No Action Needed PEGGY Education Provided this Outreach: No Herson Ashford RN January 30, 2024 11:45 AM documented in this encounter [facility] 01-05-2024 Telephone encounter Note Patient has [...] found Please advise. Thank you. Tyra Greer. [facility] 01-05-2024 Miscellaneous Notes Patient has been [...] you. Tyra Greer. documented in this encounter [facility] 01-01-2024 History of Present illness Narrative [facility] Telephonic Outreach Provider Danielle/JAMARCUS Phone rings- picks up no voicemail set up Contacted for: Routine Telephonic Outreach Contact made with patient: No, unable to leave message. Will reattempt call Herson Ashford RN January 01, 2024 11:54 AM [facility] Telephonic Outreach Provider Danielle/JAMARCUS Reached patient's dtr- States her mother not available right now Requests call back tomorrow Contacted for: Routine Telephonic Outreach Contact made with patient: Yes Patient identified by name and date of . Discussed care with daughter documented in this encounter [facility] 12-29-2023 Telephone encounter Note Reason for [...] 911. Patient said she will head to [place] when she can find a ride. Reason [...] (urination) AND [2] female Protocols used: Urinary Clhsyhta-CHTFI-UG, Urination Pain - Kqrpey-YPRRI-AZ [facility] 12-29-2023 Miscellaneous Notes Reason for Call: [...] 911. Patient said she will head to [place] when she can find a ride. Reason [...] (urination) AND [2] female Protocols used: Urinary Wugewvmj-KFSYP-MY, Urination Pain - Wkucon-PXQVY-HS documented in this encounter [facility] 12-11-2023 Miscellaneous Notes Patient has been [...] you. Kareen Lam. documented in this encounter [facility] 12-02-2023 History of Present illness Narrative [...] if no phone. Patient has appointment with [employer] on Friday. Advised to discuss at visit [...] to talk about today? Yes Based on community arts centre manager, the following disposition is advised: No symptoms or symptoms present, not severe. Routed to: No Action Needed PEGGY Education Provided this Outreach: No Herson Ashford RN December 02, 2023 10:20 AM documented in this encounter [facility] 11-25-2023 Miscellaneous Notes Patient has been [...] you. Laurel Terrazas. documented in this encounter [facility] 10-29-2023 History of Present illness Narrative [facility] Telephonic Outreach Provider Action/FYI Phone busy signal Contacted for: Routine Telephonic Outreach Contact made with patient: No, unable to leave message. Will reattempt call Herson Ashford RN October 29, 2023 5:11 PM [facility] Telephonic Outreach Provider Action/FYI Patient picks up phone. PCC acknowledged self and [facility] reason for call. Phone disconnected. Re attempted call. Phone rings - no voicemail set up Contacted for: Routine Telephonic Outreach Contact made with patient: No, unable to leave message. Will reattempt call Herson Ashford RN October 29, 2023 12:34 PM documented in this encounter [facility] 10-10-2023 Miscellaneous Notes Breo reordered. Patient [...] Jo Ann Gonzalez. documented in this encounter [facility] 09-30-2023 History of Present illness Narrative [facility] Telephonic Outreach Provider Action/FYI Phone rings -picks up indicates no voicemail set up Contacted for: Routine Telephonic Outreach Contact made with patient: No, unable to leave message. Will reattempt call Herson Ashford RN September 30, 2023 3:33 PM [facility] Telephonic Outreach Provider Action/FYI Needs falls/adl update HTN/DM- AIC 7.9 Patient not home at time of call Unclear when she will return. Contacted for: Routine Telephonic Outreach Contact made with patient: Yes Patient identified by name and date of . Discussed care with spouse documented in this encounter [facility] 09-26-2023 Miscellaneous Notes Pharmacy verified in [facility] Patient has been identified by name and [...] advise. Joyce Greer documented in this encounter [facility] 09-04-2023 History of Present illness Narrative [...] 2023 1:07 PM documented in this encounter [facility] 08-08-2023 History of Present illness Narrative TRANSITION CARE MANAGEMENT (TCM) INITIAL CONTACT Slot Shift Manager Outreach Provider Action/FYI: Needs a new glucometer and supplies. Please send to [facility] in [place] knows this will not be [...] might be hidden SUMMARY: -Pt discharged from [facility] on 08/06/23. -Admitted for: chills, urinary [...] and/or supplies for the patient, handoff to RN/STUDIO MODEL, or LIP Medical records from recent hospitalization: Placed for provider to review documented in this encounter [facility] 08-08-2023 Miscellaneous Notes Patient has been [...] you. Laurel Terrazas. documented in this encounter [facility] 08-06-2023 Discharge summary Note Date/Time August 06, 2023 1:14pm [facility] Medical Records Department [address] [place] [address] Discharge Summary 08/06/23 1314 MR#: [id number] Acct: [id number] Name: IVET VALERO Rep #:[id number] : 1955 68 From: Sho Yi DO PCP: Dr. Ricci Cole MD Status:ADM I N Location: [place] [address] Providers Date of Admission: 08/04/23 Date of [...] 68-year-[facility] complaining of chills, urinary [...] Self Care Charges/Coding Visit Charges Inpatient E&M: 00986 Disch Hosp >30min 08/06/23 1326 <Electronically signed by Sho Yi DO> Cosigner Signature (if applicable): CC: Dr. Sho Yi DO; Dr. Ricci Cole MD~ Signed [facility] Work Phone: 1(103) 104-985612-12-2023 Progress note Author Sho Yi [facility] August 05, 2023 5:02pm Note Date/Time August 05, 2023 7:[address] [facility] Medical Records Department [address] [place] [address] Progress Note - Hospitalist 08/05/23 0718 MR#: [id number] Acct: [id number] Name: IVET VALERO Rep #:[id number] : 1955 68 From: Sho Yi DO PCP: Dr. Ricci Cole MD Status:ADM I N Location: [place] [address] Reason for Visit Reason for Visit: Chills/Urinary burning/frequency Subjective Subjective Patient is a 68-year-old white female who presented the emergency department [facility] on 08/04/2023 complaining of chills, urinary [...] Clarity Clear, Urine pH 5.0, Ur Specific [place] 1.020, Urine Protein 30 H, Urine Glucose [...] (Auto) 70.3 H, Lymph % (Auto) 22.1, Floyd % (Auto) 5.9, Eos % (Auto) 0.6, [...] % (Auto) 51.7, Lymph % (Auto) 39.3, Floyd% (Auto) 7.0, Eos % (Auto) 1.2, Baso [...] short-term intubation Charges/Coding Visit Charges Inpatient E&M: 45121 Subs Hosp L2 08/05/23 1702 <Electronically signed by Sho Yi DO> Cosigner Signature (if applicable): CC: ~ Signed [facility] Work Phone: 1(307) 519-998312-11-2023 Discharge summary Author Audie Aaron [facility] August 04, 2023 4:37pm Note Date/Time August 04, 2023 1:08pm [facility] Medical Records Department [address] [place] [address] Emergency Department Summary 08/04/23 MR#: [id number] Acct: [id number] Name: IVET VALERO Rep #:[id number] 0 : 1955 68 From: Audie Velazquez [...] Denies chest pain. Denies fever or chills. [facility] <MARY Henley - Last Filed: 08/04/23 15:41> [facility] Medical History (Updated 08/04/23 @ 15:16 by [...] (Auto) 70.3 H Lymph % (Auto) 22.1 Floyd % (Auto) 5.9 Eos % (Auto) 0.6 [...] Clarity Clear Urine pH 5.0 Ur Specific [place] 1.020 Urine Protein 30 H Urine Glucose [...] Walker, DO - Last Filed: 08/04/23 15:35> [facility] Narrative Medical decision making narrative: Patient has [...] (Auto) 70.3 H Lymph % (Auto) 22.1 Floyd % (Auto) 5.9 Eos % (Auto) 0.6 [...] Clarity Clear Urine pH 5.0 Ur Specific [place] 1.020 Urine Protein 30 H Urine Glucose [...] your Primary Care Provider. Call [facility] ([phone]) or report to the closest Emergency Room. Call 911 if necessary. 08/04/23 1637 <Electronically signed by Audie Walker DO> Cosigner Signature (if applicable): 08/04/23 1541 <Electronically signed by Marylu Gillespie PA> CC: Dr. Ricci Cole MD ~ Signed [facility] Work Phone: 1(849) 814-892312-11-2023 History and physical note Author Leeanne Barron [facility] August 04, 2023 3:20pm Note Date/Time August 04, 2023 3:09pm [facility] Medical Records Department [address] [place] [address] H&P Exam - Hospitalist 08/04/23 1506 MR#: [id number] Acct: [id number] Name: IVET VALERO Rep #:[id number] 1 : 1955 68 From: Leeanne Barron MD PCP: Dr. Ricci Cole MD Status:REG E R Location: ED HPI - General General Date of Admission: 08/04/23 Date of Service: 08/04/23 Chief Complaint: Chills, urinary burning and frequency HPI Narrative IVET VALERO, is a 68-year-old female history of COPD, GERD, hypertension, type 2 diabetes mellitus who presented to [facility] 08/04/2023 with 2 weeks of urinary [...] no other acute complaints at this time. 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 Leeanne Barron MD; Dr. Ricci Cole MD~ Signed [facility] Work Phone: 1(792) 866-539712-11-2023 History and physical note Author Leeanne Barron [facility] August 04, 2023 3:20pm Note Date/Time August 04, 2023 3:09pm [facility] Medical Records Department [place] [address] H&P Exam - Hospitalist 08/04/23 1506 MR#: [id number] Acct: [id number] Name: IVET VALERO Rep #:[id number] 1 : 1955 68 From: Leeanne Barron MD PCP: Dr. Ricci Cole MD Status:REG E R Location: ED HPI - General General Date of Admission: 08/04/23 Date of Service: 08/04/23 Chief Complaint: Chills, urinary burning and frequency HPI Narrative IVET VALERO, is a 68-year-old female history of COPD, GERD, hypertension, type 2 diabetes mellitus who presented to [facility] 08/04/2023 with 2 weeks of urinary [...] no other acute complaints at this time. 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 Leeanne Barron MD; Dr. Ricci Cole MD~ Signed [facility] Work Phone: [phone] 505-293412-04-2023 History of Present illness Narrative* Herson Ashford RN - 07/28/2023 2:15 PM EST CDM Telephonic Outreach Provider Action/FYI Contacted for: Routine Telephonic Outreach Contact made with patient: No, unable to leave message. Will reattempt call Herson Ashford RN July 28, 2023 2:18 PM documented in this encounterMem[facility]11-29-[facility] History of Present illness Narrative* Herson Ashford RN - 07/23/2023 3:39 PM EST [facility] Telephonic Outreach Provider Action/FYI Phone rings-no voicemail Contacted for: Routine Telephonic Outreach Contact made with patient: No, unable to leave message. Will reattempt call Herson Ashford RN July 24, 2023 4:28 PM documented in this encounterMemorial Health [facility]11-27-2023 Miscellaneous Notes* Telephone Encounter - Tiffanie [...] notify patient. Liseth Greer documented in this encounterMemorial Health [facility]11-20-2023 Miscellaneous Notes* Telephone Encounter - Joycelyn [...] patient. Joycelyn Doyleing Pss documented in this encounterMemorial Health [facility]11-15-2023 History of Present illness Narrative* Sophia Fan APRN.NEUROPHYSIOLOGICAL TECHNICIAN - 07/09/2023 1:47 PM EST CC: Patient [...] Penicillins, and Sulfa (Sulfonamide Antibiotics) MEDICATIONS Insulin [place], Disposable, (BD ULTRA-FINE MINDY PEN NEEDLE) 32 [...] 1 tablet by mouth once daily. Insulin [place], Disposable, 32 gauge x 5/16 ndle Use [...] self. Sophia Fan APRN.CNP documented in this encounterMemorial Health [facility]11-07-2023 Miscellaneous Notes* Telephone Encounter - Nanci Huber APRN.CNP - 07/01/2023 10:58 AM EST Script sent. Nanci Huber APRN.CNP * Telephone Encounter - Mirian Mckinnon - 07/01/2023 10:01 AM EST Patient calling for a refill on the 4 mm pen needles (not on refill list). [facility] send to [facility]. documented in this encounterMemorial Health [facility]10-20-2023 History of Present illness Narrative* Herson Ashford RN - 06/13/2023 8:45 AM EDT CDM Telephonic Outreach Provider Action/FYI Reached friend. Reports Ivet not home at time of call Contacted for: Routine Telephonic Outreach Contact made with patient: Yes Patient identified by name and date of . Discussed care with friend documented in this encounterCleveland [id number] Miscellaneous Notes* Telephone Encounter - Kash Ledesma [...] pharmacy. No need to notify patient. Tyra Greer documented in this encounterMemorial Health [facility]10-09-2023 History of Present illness Narrative* Lou [...] 02, 2023 9:16 AM documented in this encounterMemorial Health [facility]09-19-2023 History of Present illness Narrative* Herson Ashford RN - 05/13/2023 9:39 AM EDT CDM Telephonic Outreach Provider Action/FYI Unable to leave message Voicemail not set up Contacted for: Routine Telephonic Outreach Contact made with patient: No, unable to leave message. Will reattempt call Herson Ashford RN May 14, 2023 3:08 PM documented in this encounterMemorial Health [facility]09-13-2023 Telephone encounter Note * Telephone Encounter - Adali Aguero - 05/07/2023 10:26 AM EDT JOANNA:04-15- No appt made. [facility]09-13-2023 Miscellaneous Notes* Telephone Encounter - Adali [...] notify patient. Liseth Greer documented in this encounterMemorial Health [facility]09-13-2023 Telephone encounter Note * Telephone Encounter [...] need to notify patient. Liseth Bell Pss [facility]09-12-2023 Miscellaneous Notes* Telephone Encounter - Marylu [...] completed and faxed back) to please call: [phone] and find outwhat the problem is. Pt reports this has been going on since 04/16/23. Madelaine Frazier LPN documented in this encounterMemorial Health System [facility]08-31-2023 Miscellaneous Notes* Telephone Encounter - Jaycee Cohn LPN - 04/24/2023 12:47 PM EDT Forms are completed and faxed back as requested. * Telephone Encounter - Kash Ledesma LPN - 04/23/2023 3:15 PM EDT Type of form: DWO Form received via fax When form is completed, Fax form to [phone] Form has been forwarded to Physician Mailbox: Dr. Kelsey Ledesma LPN documented in this encounterMemorial Health System [facility]08-30-2023 Miscellaneous Notes* Telephone Encounter - Jaycee [...] being faxed back. Fax corrected forms to [phone] per patient request. Sue Quinonez RN documented in this encounterMemorial Health [facility]08-25-2023 Miscellaneous Notes* Telephone Encounter - Kash [...] stable. Urine protein is normal. Nanci Huber APRN.NEUROPHYSIOLOGICAL TECHNICIAN The 10-year ASCVD risk score (Aiden PHELPS, et al., 2019) is: 29.9% Values used to calculate the score: Age: 68 years Sex: Female Is Non- : No Diabetic: Yes Tobacco smoker: Yes Systolic Blood Pressure: 138 mmHg Is BP treated: Yes HDL Cholesterol: 67 mg/dL Total Cholesterol: 234 mg/dL documented in this encounterMemorial Health [facility]08-23-2023 Miscellaneous Notes* Telephone Encounter - Jaycee Cohn LPN - 04/16/2023 12:10 PM EDT Completed and faxed. * Telephone Encounter - Kash Ledesma LPN - 04/16/2023 11:49 AM EDT Type of form: Medical Necessity Form received via fax When form is completed, Fax form to [phone] Form has been forwarded to Physician Mailbox: Dr. Kelsey Ledesma LPN documented in this encounterMemorial Health [facility]08-23-2023 Miscellaneous Notes* Telephone Encounter - Ricci Cole MD - 04/16/2023 8:57 AM EDT Patient seen yesterday. Needs forms completed for urinary incontinence supplies. Has long standing issues for mixed incontinence. Reviewed urology notes. Would benefit from their use. documented in this encounterMemorial Health System [facility]08-22-2023 Instructions* Patient Instructions* Nanci Huber APRN.CNP [...] your usual activities immediately. documented in this encounterMemorial Health System [facility]08-22-2023 History of Present illness Narrative* Nanci [...] 1 tablet by mouth once daily. Insulin [place], Disposable, 32 gauge x 5/16 ndle Use [...] azelastine (ASTELIN) 0.1% nasal spray Use 1 [place] in each nostril twice daily. carvedilol (COREG) [...] up for mammogram, yearly mammogram recommended - [facility] SCREENING 13. Asymptomatic postmenopausal status - ICD9: [...] which included preparing to see the patient, [id number] patient care, completing clinical documentation, obtaining and/or reviewing separately obtained history, performing a medically appropriate examination, counseling and educating the pat ient/family/caregiver, and ordering medications, tests, or procedures. documented in this encounterMemorial Health System [facility]08-17-2023 History of Present illness Narrative* Herson Ashford RN - 04/10/2023 10:06 AM EDT [facility] Telephonic Outreach Provider Action/FYI Strongly encouraged patient [...] of breath with activity? No Based on community arts centre manager, the following disposition is advised: No symptoms or symptoms present, not severe. Routed to: No Action Needed PEGGY Education Provided this Outreach: No Herson Ashford RN April 10, 2023 3:55 PM documented in this encounterMemorial Health [facility]08-16-2023 Miscellaneous Notes* Telephone Encounter - Tawana [...] appt. Kash Ledesma LPN documented in this encounterMemorial Health [facility]08-14-2023 Miscellaneous Notes* Telephone Encounter - Rena [...] you. Mariia White, RN documented in this encounterMemorial Health [facility]08-14-2023 Miscellaneous Notes* Telephone Encounter - Diane [...] below. Pt states she was told by [facility] that pcp denied the help pt was [...] should be getting a form faxed from [employer] for hygiene products. She states it's to help pay for her pads. Please call and notify Pt once it has been filled out and faxed back. documented in this encounterMemorial Health [facility]08-11-2023 Miscellaneous Notes* Telephone Encounter - Jaycee [...] When form is completed, Fax form to [phone] Form has been forwarded to Physician Mailbox: Dr. Kelsey Ledesma LPN documented in this encounterMemorial Health [facility]07-31-2023 Miscellaneous Notes* Telephone Encounter - Kash Ledesma LPN - 03/24/2023 11:29 AM EDT JOANNA 01/29/22 *Multiple appt cancellations since. NOV 04/01/23 * Telephone Encounter - [place] Joycelyn Greer - 03/24/2023 11:20 AM EDT [...] notify patient. Joycelyn Greer documented in this encounterMemorial Health System [facility]07-20-2023 History of Present illness Narrative* Lynn Pickering LSW - 03/13/2023 1:05 PM EDT PCSW Progress Note - Value Based Care Provider Action / FYI PCP Action No action required Date of Service: 03/13/2023 Ivet Valero [id number] [facility] [address] Patient identified by name/: Yes- via Telephone [...] as follows After much encouragement- agreed to psychologist social referral to assist with transportation assistance. Multiple missed/cancelled medical appts. Per chart review, Pt listed as having Medicare primary and Medicaid QMB sec as verified per [facility] [place] website - QMB benefits do not cover transportation PCSW collaborated with [facility] psychologist social Larissa Younger regarding transportation resources who relates unfortunately, transportation services are somewhat limited in the [facility] area. Provided /directed to [employer] Maral Kelley [phone] for assessment and determination of possible transportation services for folks in [facility]. States requires in person registration. Or [place] [employer] likely private pay if not covered under waiver. Also provided with [facility] [place] program, local [employer] organization that sometimes helps community members in need. Other resource may be [employer] that provides transportation. PCSW called/ spoke with [employer] -- informed cost is $2.80 per mile. with some limitations as to time and service area. PCSW called /spoke with pt. [phone]. PCSW introduced self and role as providing telephonic outreach and resource support. PCSW consult requested per Ms Herson Ashford RN, [facility] CDM. PCSW reviewed, discussed above possible transportation resources. Pt relates she is not interested in using a [employer] service van for transportation. Pt relates she [...] hung up. Interventions: Advocacy Assessment Discharge from [facility] panel Education Stakeholder collaboration with Larissa Younger [facility] And Herson Ashford RN, [facility] BONIFACIO Herrera March 13, 2023 1:08 PM documented in this encounterMemorial Health [facility]07-18-2023 History of Present illness Narrative* Herson Ashford RN - 03/11/2023 4:10 PM EDT CDM Telephonic Outreach Provider Action/FYI No voicemail set up Contacted for: Routine Telephonic Outreach Contact made with patient: No, unable to leave message. Will reattempt call Herson Ashford RN March 11, 2023 4:12 PM documented in this encounterMemorial Health [facility]07-03-2023 Miscellaneous Notes* Telephone Encounter - [place] Candida [facility] - 02/24/2023 4:33 PM EDT Ivet Valero is calling Ricci Cole MD today to request a RX for medication not on currentmed list: Nystatin topical powder RESIDENTIAL [id number] units per gram [facility] send [facility] Patient has been identified by name and birthdate. Duration of symptoms: N/A Person calling: self Call patient at: at home [phone] (home) Was an appointment scheduled: No Closing statement: Results or non-symptom based questions: Thank you for calling [facility], your call will be returned within the next business day. Laurel Tirado [facility] documented in this encounterMemorial Health [facility]06-26-2023 Miscellaneous Notes* Telephone Encounter - Liseth [...] patient. Liseth Bell Pss documented in this encounterMemorial Health System [facility]06-12-2023 Miscellaneous Notes* Telephone Encounter - Maribel Humphreys LPN - 02/03/2023 9:39 AM EDT not needed rx has refills documented in this encounterMemorial Health System [facility] Hospital06-01-2023 Miscellaneous Notes* Addendum Note - Ricci [...] this time and her daughter is in [place] going thru life threatening surgery. Pt has [...] and advise. Mirian Mckinnon documented in this encounterMemorial Health System [facility]05-23-2023 History of Present illness Narrative* Lou [...] 14, 2023 8:53 AM documented in this encounterMemorial Health System [facility]05-10-2023 Miscellaneous Notes* Telephone Encounter - Bridgett [...] advise. Dinah Ochoa Pss documented in this encounterMemorial Health System [facility] Hospital04-14-2023 History of Present illness Narrative* Herson Ashford RN - 12/06/2022 10:48 AM EDT CDM Telephonic Outreach Provider Action/FYI Phone rings- no voicemail set up Contacted for: Routine Telephonic Outreach Contact made with patient: No, unable to leave message. Will reattempt call Herson Ashford RN December 09, 2022 2:26 PM documented in this encounterMemorial Health System [facility]04-03-2023 Miscellaneous Notes* Telephone Encounter - Liseth [...] notify patient. Kareen Lam documented in this encounterMemorial Health System [facility] Hospital03-20-2023 History of Present illness Narrative* Herson Ashford RN - 11/11/2022 9:26 AM EDT INSIGHT CDM TELEPHONIC OUTREACH Provider Action/FYI: Unable to leave message-no voicemail Contact made with patient: No - Unable to leave message Entered next patient outreach date for the following business day, if third call please enter next outreach date for one week in the Track Pt. Outreach - End Outreach documented in this encounterMemorial Health System [facility] Hospital03-16-2023 Miscellaneous Notes* Telephone Encounter - wSathi Jon MA - 11/07/2022 9:45 AM EDT [...] patient. Tyra Kelly Pss documented in this encounterMemorial Health System [facility] Hospital02-13-2023 History of Present illness Narrative* Herson [...] Outreach - End Outreach documented in this encounterMemorial Health System [facility] Hospital01-12-2023 History of Present illness Narrative* Herson Ashford RN - 09/05/2022 10:36 AM EST [...] stable no further interventions documented in this encounterMemorial Health System [facility] Hospital01-11-2023 History of Present illness Narrative* Brittany Sam MD - 09/04/2022 1:21 PM EST Virtualist Distance Health Note (CDM/TCM//CC HC/H@[facility] escalations) Ivet Valero has consented to this telephone encounter. Persons Present: patient Triage source: Chronic Disease Management Contacted by phone, [employer], [employer], [employer], [employer], other: phone History of present illness: Ill [...] in as Primary Virtualist, Secondary Virtualist, or [facility] Telehealth provider: Primary SIGNATURE: Brittany Sam MD PATIENT NAME: Ivet Valero DATE: September 04, 2022 documented in this encounterMemorial Health System [facility]01-10-2023 History of Present illness Narrative* Herson [...] and patient's preferred method of contact (telephone, VoCareime, [employer]), your name, your contact number. [...] the patient. END OUTREACH documented in this encounterMemorial Health System [facility] Hospital12-19-2022 Miscellaneous Notes* Telephone Encounter - Liseth [...] patient. Liseth Bell Pss documented in this encounterMemorial Health System [facility] Hospital12-07-2022 Miscellaneous Notes* Telephone Encounter - Bridgett [...] you. Bridgett Mendoza LPN documented in this encounterMemorial Health System [facility] Hospital12-06-2022 History of Present illness Narrative* Herson [...] Outreach - End Outreach documented in this encounterMemorial Health System [facility] Hospital11-30-2022 Miscellaneous Notes* Telephone Encounter - Kimberly [...] Thank you. Kimberly Vazquez documented in this encounterMemorial Health System [facility] Hospital11-17-2022 Miscellaneous Notes* Telephone Encounter - Jaky [...] and advise. Jaky Greer documented in this encounterMemorial Health System [facility] Hospital11-03-2022 Miscellaneous Notes* Telephone Encounter - Leann [...] and advise. Leann Greer documented in this encounterMemorial Health System [facility] Hospital11-01-2022 Miscellaneous Notes* Telephone Encounter - Renetta Coles - 06/25/2022 4:44 PM EDT Noted. Renetta Coles * Telephone Encounter - Laurel Karimisec - 06/25/2022 4:38 PM EDT Ivet Valero is calling Ricci Cole MD today to advise provider [facility] by Dr. Mac. Patient saw Meredith Rodriguez in Urology yesterday. She still is going to do the CT scan and MRI at [facility]. Patient has been identified by name and birthdate. Duration of symptoms: N/A Person calling: self Call patient at: at home [phone] (home) Was an appointment scheduled: No Closing statement: Results or non-symptom based questions: Thank you for [facility], your call will be returned within the next business day. Laurel Tirado [employer] documented in this encounterMemorial Health System [facility]11-01-2022 Miscellaneous Notes* Telephone Encounter - [facility] - 06/25/2022 4:34 PM EDT Patient has been identified by name and date of : Yes Requested Prescriptions Pending Prescriptions Disp Refills promethazine (PHENERGAN) 25 mg tablet 30 tablet 2 Sig: Take 1 tablet by mouth every 6 hours as needed. RX INSTRUCTIONS: PATIENT IS ASKING FOR THE TABLETS PLEASE Patient aware RX will be sent to pharmacy. No need to notify patient. [facility] documented in this encounterMemorial Health System [facility] Hospital10-31-2022 Miscellaneous Notes* Telephone Encounter - Jaycee [...] notify patient. Kareen Lam documented in this encounterMemorial [facility]10-26-[facility] History of Present illness Narrative* Sho [...] go there. Suggested [facility] in [place], or new free standing ER in [place]. Patient states she will go if symptoms [...] like to speak with a social work team automobile assembler to help give you support for any [...] you up for automated weekly questionnaires through [employer]. This is an easy way for us [...] PtOutreach and End outreach. documented in this encounterMemorial Health [facility]10-12-2022 History of Present illness Narrative* Sho Hebert RN - 06/05/2022 11:48 AM EDT [facility] TELEPHONIC OUTREACH Provider Action/FYI: Contact made with patient: No - Unable to leave message Entered next patient outreach date for the following business day, if third call please enter next outreach date for one week in the Track Pt. Outreach - End Outreach documented in this encounterMemorial [facility]10-04-2022 Miscellaneous Notes* Telephone Encounter - Joyce Greer - 05/28/2022 11:20 AM EDT Pharmacy verified in [facility] Patient has been identified by name and [...] nystatin cream as well. documented in this encounterMemorial Health [facility]09-12-2022 History of Present illness Narrative* Jaycee Hammjose r RUDOLPH - 05/06/2022 5:14 PM EDT TRANSITION CARE MANAGEMENT (TCM) INITIAL CONTACT Slot Shift Manager Outreach Provider Action/FYI: Patient states that is doing ok just still a little banged up from her fall. Initial contact with patient post discharge, spoke to patient. Patient identified by name and . TRANSITION CARE MANAGEMENT INITIAL OUTREACH DOCUMENTATION: No flowsheet data found. SUMMARY: -Pt discharged from [facility] on 05/03/22. -Admitted for: debility with [...] for provider to review documented in this encounterMemorial Health [facility]09-09-2022 Miscellaneous Notes* Telephone Encounter - Kash Ledesma LPN - 05/03/2022 12:25 PM EDT TC to Dania, left detailed message on secure identified voicemail. Kash Ledesma LPN * Telephone Encounter - Ricci Cole MD - 05/03/2022 11:42 AM EDT ok * Telephone Encounter - Diane Guillermo RN - 05/03/2022 11:36 AM EDT Dania with [facility] called in and reports Pt will be discharged from [facility] today. Dr Wade will follow Pts IV orders. She is asking if provider will follow HH orders for PT/OT/Group Home. She states they hope to start tomorrow. Please call Dania back. She report a message can be left on phone line as it is confidential. documented in this encounterMemorial Health [facility]09-07-2022 History of Present illness Narrative* Sho Hebert RN - 05/01/2022 10:06 AM EDT INSIGHT CDM TELEPHONIC OUTREACH Provider Action/FYI: Spoke to patients spouse Vern, who is involved in patients care, states patient is currently admitted to [facility]. This nurse to follow up in one [...] Pt Outreach. End outreach documented in this encounterMemorial Health [facility]09-06-2022 History of Present illness Narrative* Sho Hebert RN - 04/30/2022 11:36 AM EDT INSIGHT CDM TELEPHONIC OUTREACH Provider Action/FYI: Contact made with patient: No - Unable to leave message Entered next patient outreach date for the following business day, if third call please enter next outreach date for one week in the Track Pt. Outreach - End Outreach documented in this encounterMemorial Health [facility]08-29-2022 Miscellaneous Notes* Telephone Encounter - Kash Ledesma LPN - 04/22/2022 3:14 PM EDT JOANNA 01/29/22 NOV 04/25/22 * Telephone Encounter - Kareen Lam - 04/22/2022 1:14 PM EDT Patient has been identified by name and date of : Yes Requested Prescriptions Pending Prescriptions Disp Refills promethazine (PHENERGAN) 25 mg tablet 30 tablet 2 Sig: Take 1 tablet by mouth every 6 hours as needed. RX INSTRUCTIONS: Patient aware RX will be sent to pharmacy. No need to notify patient. Kareen Lam documented in this encounterMemorial Health System [facility]08-23-2022 History of Present illness Narrative* Sho Hebert RN - 04/16/2022 11:53 AM EDT [facility] TELEPHONIC OUTREACH Provider Action/FYI: Contact made with patient: No - Unable to leave message - End Outreach documented in this encounterMemorial Health [facility]08-22-2022 History of Present illness Narrative* Sho Hebert RN - 04/15/2022 10:32 AM EDT [facility] TELEPHONIC OUTREACH Provider Action/FYI: Contact made with [...] Pt Outreach. End outreach documented in this encounterMemorial [facility]08-03-2022 Miscellaneous Notes* Telephone Encounter - Joyce Greer - 03/27/2022 9:49 AM EDT Pharmacy verified in [facility] Patient has been identified by name and [...] Please advise. Joyce Greer documented in this encounterMemorial [facility]08-02-2022 Miscellaneous Notes* Telephone Encounter - Kash [...] patient. Tyra Mendoza Pss documented in this encounterMemorial Health System [facility]07-25-2022 History of Present illness Narrative* Sho [...] like to speak with a social work team automobile assembler to help give you support for any [...] you up for automated weekly questionnaires through [employer]. This is an easy way for us [...] PtOutreach and End outreach. documented in this encounterMemorial Health [facility]06-27-2022 History of Present illness Narrative* Sho Hebert RN - 02/18/2022 12:43 PM EDT [facility] TELEPHONIC OUTREACH Provider Action/FYI: Contact made with patient: No - Unable to leave message - End Outreach documented in this encounterMemorial Health [facility]06-24-2022 History of Present illness Narrative* Sho Hebert RN - 02/15/2022 12:43 PM EDT [facility] TELEPHONIC OUTREACH Provider Action/FYI: Contact made with patient: No - Unable to leave message Entered next patient outreach date for the following day, if third call please enter next outreach date for one week in the Track Pt. Outreach - End Outreach documented in this encounterMemorial Health [facility]06-20-2022 Miscellaneous Notes* Telephone Encounter - Sho [...] notify patient. Laurel Karimise documented in this encounterMemorial Health System [facility] Hospital06-10-2022 Miscellaneous Notes* Telephone Encounter - Sue [...] you. Sue Quinonez RN documented in this encounterMemorial Health System [facility] Hospital06-09-2022 History of Present illness Narrative* Sho Hebert RN - 01/31/2022 1:10 PM EDT [facility] TELEPHONIC OUTREACH Provider Action/FYI: Contact made with patient: No - Unable to leave message -End Outreach documented in this encounterMemorial Health [facility]06-07-2022 History of Present illness Narrative* Yasmany Holland PA-C - 01/29/2022 11:10 AM EDT 66 year old female with c/o Hospital discharge follow-up Facility: [facility] Date of admission 01/17/2022 Date of [...] has appt with Dr. Arteaga Friend Currently: [place] good for a couple day after discharge [...] azelastine (ASTELIN) 0.1% nasal spray Use 1 [place] in each nostril twice daily. 6 mL [...] 38 units tid. 8 Pen 0 Insulin [place], Disposable, 32 gauge x 5/16 ndle Use [...] review. Yasmany Holland PA-C documented in this encounterMemorial Health System [facility]06-01-2022 History of Present illness Narrative* Jaycee Cohn LPN - 01/23/2022 3:32 PM EDT TRANSITION CARE MANAGEMENT (TCM) INITIAL CONTACT Slot Shift Manager Outreach Provider Action/FYI: States that is just feeling tired. Initial contact with patient post discharge, spoke to patient. Patient identified by name and . TRANSITION CARE MANAGEMENT INITIAL OUTREACH DOCUMENTATION: No flowsheet data found. SUMMARY: -Pt discharged from [facility] on 01/22/22. -Admitted for: UTI d/t [...] for provider to review documented in this encounterMemorial Health System [facility]05-31-2022 History of Present illness Narrative* Sho Hebert RN - 01/22/2022 11:26 AM EDT [facility] TELEPHONIC OUTREACH Provider Action/FYI: Patients spouse Vern, who is involved in patients care, answered the phone, states patient is currently admitted at [facility]. Will follow up in 1 week., [...] Pt Outreach. End outreach documented in this encounterMemorial Health [facility]05-31-2022 Miscellaneous Notes* Telephone Encounter - Savana [...] notify patient. Savana Greer documented in this encounterMemorial Health System [facility]05-16-2022 History of Present illness Narrative* Sho Hebert RN - 01/07/2022 3:42 PM EDT [facility] TELEPHONIC OUTREACH Provider Action/FYI: Pt reports she [...] like to speak with a social work team automobile assembler to help give you support for any [...] you up for automated weekly questionnaires through [employer]. This is an easy way for us [...] PtOutreach and End outreach. documented in this encounterMemorial Health System [facility]05-16-2022 Miscellaneous Notes* Telephone Encounter - Swathi [...] if urine culture done last week at [facility] ER is done and get results.? documented in this encounterMemorial Health System [facility]05-14-2022 History of Present illness Narrative* Ricci Cole MD - 01/05/2022 10:11 AM EDT Patient presents with: ED Follow-up HPI: Patient presents today for office visit for ER follow up. I have not seen the patient since 2019. Difficult history. Large number of complaints. See below. Was recently seen at [facility]. Had urine culture, not complete yet. Showing several organisms. 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 ID pending. She was given zofran and [...] new dizziness. 6. COPD Sees Pulmonary at [facility] Alex. 7. Leukocytosis: has seen Dr. Salazar in 2018 for her chronic polycythemia and leukocytosis. Has been high for years. Dr. Salazar felt it was due to her smoking and copd. 8. Has [address] Spicer for chronic gi issues in the past. Had egd in the past at [facility]. Did have a gastric emptying study done. [...] Lymph 1.00 - 4.00 k/uL 4.27 (H) Floyd% % 5.5 Abs Floyd <0.87 k/uL 0.99 (H) Eosin% % 0.7 [...] Negative Ketones, Urine Negative 1+ (A) Specific [place], Ur 1.005 - 1.030 1.021 Hemoglobin/Blood,Ur Negative [...] recently on doxycycline for bronchitis from her detasseler. She does not have a cough or [...] azelastine (ASTELIN) 0.1% nasal spray Use 1 [place] in each nostril twice daily. scopolamine (TRANSDERM-SCOP) [...] scale up to 38 units tid. Insulin [place], Disposable, 32 gauge x 5/16 ndle Use [...] ABDOMINAL HYSTERECT W/WO RMVL TUBE OVARY Hysterectomy, REIJ FAMILY HISTORY Problem Relation Age of Onset [...] up with gi. Suggested she see Dr. Mca. - CONSULT TO GASTROENTEROLOGY 2. Other chronic gastritis without hemorrhage - ICD9: 535.10, ICD10: K29.50 - CONSULT TO GASTROENTEROLOGY 3. Urinary incontinence, unspecified type - ICD9: 788.30, ICD10: R32 - reinforced that I some of her symptoms are more likely not uti related. Wait on final culture at [facility] - CONSULT TO UROLOGY 4. History [...] eight weeks and prn. documented in this encounterMemorial Health [facility]05-12-2022 Miscellaneous Notes* Telephone Encounter - Jaycee [...] or my walk in. documented in this encounterMemorial Health System [facility]05-11-2022 Miscellaneous Notes* Telephone Encounter - Kash [...] voicemail. Marylu Yeung Ma documented in this encounterMemorial Health System [facility]05-09-2022 History of Present illness Narrative* Padmini Moura MD - 12/31/2021 10:04 AM EDT Virtualist Distance Health Note (for [employer] community monitoring and [facility] escalations) Adult seen for Monitoring Track: Chronic Disease Management Contacted by phone, [employer], [employer], [employer], [employer], [employer], [employer], other: phone called at 10:08 am called at 10:42 am History of present illness: 66 yo F symptom onset for [address] Holland at [facility], told had a UTI, bronchitis on Macrobid 12/20/21-12/27/21 on 12/18 seen in office labs from [facility] show elevated WBC, UA +, urine culture [...] DATE: December 31, 2021 documented in this encounterMemorial Health [facility] Hospital04-28-2022 Miscellaneous Notes* Telephone Encounter - Yasmany [...] tomorrow Edwin Holland PA-C documented in this encounterMemorial Health System [facility] Hospital04-28-2022 Miscellaneous Notes* Telephone Encounter - Marylu [...] Provider: Yasmany HOLLAND PA-C documented in this encounterMemorial Health System [facility] Hospital04-26-2022 History of Present illness Narrative* Yasmany [...] Bronchitis With Chronic Obstructive Pulmonary Disease (Copd) (Formerly [facility]) Chest Pressure Rash Primary Hypertension Chronic Gastritis [...] azelastine (ASTELIN) 0.1% nasal spray Use 1 [place] in each nostril twice daily. 6 mL [...] 38 units tid. 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 Outreach - End Outreach documented in this encounterMemorial Health [facility]04-20-2022 Miscellaneous Notes* Telephone Encounter - Kaylyn [...] patient. Liseth Bell Pss documented in this encounterMemorial Health System [facility] Hospital04-14-2022 History of Present illness Narrative* Sho Hebert RN - 12/06/2021 12:51 PM EDT [facility] TELEPHONIC OUTREACH Provider Action/FYI: Second attempt, no answer, no voicemail Contact made with patient: No - Unable to leave message Entered next patient outreach date for the following business day, if third call please enter next outreach date for one week in the Track Pt. Outreach - End Outreach * Sho Hebert RN - 12/06/2021 9:08 AM EDT [facility] TELEPHONIC OUTREACH Provider Action/FYI: Call to patient [...] Outreach - End Outreach documented in this encounterMemorial Health System [facility]04-11-2022 History of Present illness Narrative* Sho [...] hours - Routed to COMMUNITY MONITORING PSS bremen [[id number]] Medications Do you have any questions about [...] like to speak with a social work team automobile assembler to help give you support for any [...] you up for automated weekly questionnaires through [employer]. This is an easy way for us [...] PtOutreach and End outreach. documented in this encounterMemorial Health [facility] Hospital2022 Miscellaneous Notes* Telephone Encounter - Kareen [...] notify patient. Kareen Lam documented in this encounterMemorial Health System [facility] Hospital03-31-2022 History of Present illness Narrative* Joyce Perry PA-C - 11/22/2021 1:30 PM EDT [facility] Respiratory [place], 11/22/2021: Name: Ivet Valero : 1955 The [...] answers. Joyce Perry PA-C documented in this encounterMemorial Health System [facility]08-18-2021 History of Present illness Narrative* Selena [...] 11, 2021 1:42 PM documented in this encounterMemorial Health System [facility]05-10-2021 History of Past illness Narrative* Problem [...] few tabs. Was started on Ceftin per detasseler a few days prior Chronic cough 01/04/2020 01/05/2022 Persistent disorder of initiating or maintaining sleep 05/25/2008 01/05/2022 Depressive disorder, not elsewhere classified 01/05/2022 documented as of this encounter (statuses as of 01/05/2022) [facility]05-[facility] History of Past illness Narrative* Problem [...] few tabs. 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 Was started on Ceftin per detasseler a few days prior Chronic cough 01/04/2020 01/05/2022 Persistent disorder of initiating or maintaining sleep 05/25/2008 01/05/2022 Depressive disorder, not elsewhere classified 01/05/2022 documented as of this encounter (statuses as of 01/30/2022) [facility] History of Past illness Narrative* Problem [...] few tabs. 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 Was started on Ceftin per detasseler a few days prior Chronic cough 01/04/2020 01/05/2022 Persistent disorder of initiating or maintaining sleep 05/25/2008 01/05/2022 Depressive disorder, not elsewhere classified 01/05/2022 documented as of this encounter (statuses as of 02/01/2022) [facility] History of Past illness Narrative* Problem [...] few tabs. Was started on Ceftin per detasseler a few days prior Chronic cough 01/04/2020 01/05/2022 Persistent disorder of initiating or maintaining sleep 05/25/2008 01/05/2022 Depressive disorder, not elsewhere classified 01/05/2022 documented as of this encounter (statuses as of 02/11/2022) [facility] History of Past illness Narrative* Problem [...] few tabs. Was started on Ceftin per detasseler a few days prior Chronic cough 01/04/2020 01/05/2022 Persistent disorder of initiating or maintaining sleep 05/25/2008 01/05/2022 Depressive disorder, not elsewhere classified 01/05/2022 documented as of this encounter (statuses as of 02/15/2022) [facility] of Past illness Narrative* Problem [...] few tabs. 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 Was started on Ceftin per detasseler a few days prior Chronic cough 01/04/2020 01/05/2022 Persistent disorder of initiating or maintaining sleep 05/25/2008 01/05/2022 Depressive disorder, not elsewhere classified 01/05/2022 documented as of this encounter (statuses as of 03/18/2022) [facility] of Past illness Narrative* Problem [...] few tabs. Was started on Ceftin per detasseler a few days prior Chronic cough 01/04/2020 01/05/2022 Persistent disorder of initiating or maintaining sleep 05/25/2008 01/05/2022 Depressive disorder, not elsewhere classified 01/05/2022 documented as of this encounter (statuses as of 03/26/2022) [facility] of Past illness Narrative* Problem [...] few tabs. Was started on Ceftin per detasseler a few days prior Chronic cough 01/04/2020 01/05/2022 Persistent disorder of initiating or maintaining sleep 05/25/2008 01/05/2022 Depressive disorder, not elsewhere classified 01/05/2022 documented as of this encounter (statuses as of 03/27/2022) [facility] of Past illness Narrative* Problem [...] few tabs. Was started on Ceftin per detasseler a few days prior Chronic cough 01/04/2020 01/05/2022 Persistent disorder of initiating or maintaining sleep 05/25/2008 01/05/2022 Depressive disorder, not elsewhere classified 01/05/2022 documented as of this encounter (statuses as of 04/15/2022) [facility] of Past illness Narrative* Problem [...] few tabs. Was started on Ceftin per detasseler a few days prior Chronic cough 01/04/2020 01/05/2022 Persistent disorder of initiating or maintaining sleep 05/25/2008 01/05/2022 Depressive disorder, not elsewhere classified 01/05/2022 documented as of this encounter (statuses as of 04/16/2022) [facility] of Past illness Narrative* Problem [...] few tabs. Was started on Ceftin per detasseler a few days prior Chronic cough 01/04/2020 01/05/2022 Persistent disorder of initiating or maintaining sleep 05/25/2008 01/05/2022 Depressive disorder, not elsewhere classified 01/05/2022 documented as of this encounter (statuses as of 04/22/2022) [facility] of Past illness Narrative* Problem [...] few tabs. Was started on Ceftin per detasseler a few days prior Chronic cough 01/04/2020 01/05/2022 Persistent disorder of initiating or maintaining sleep 05/25/2008 01/05/2022 Depressive disorder, not elsewhere classified 01/05/2022 documented as of this encounter (statuses as of 04/30/2022) [facility] of Past illness Narrative* Problem [...] few tabs. 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 Was started on Ceftin per detasseler a few days prior Chronic cough 01/04/2020 01/05/2022 Persistent disorder of initiating or maintaining sleep 05/25/2008 01/05/2022 Depressive disorder, not elsewhere classified 01/05/2022 documented as of this encounter (statuses as of 05/03/2022) [facility]10[facility]2021 History of Past illness Narrative* Problem [...] few tabs. 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 Was started on Ceftin per detasseler a few days prior Chronic cough 01/04/2020 01/05/2022 Persistent disorder of initiating or maintaining sleep 05/25/2008 01/05/2022 Depressive disorder, not elsewhere classified 01/05/2022 documented as of this encounter (statuses as of 05/28/2022) [facility]2021 History of Past illness Narrative* Problem [...] few tabs. 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 Was started on Ceftin per detasseler a few days prior Chronic cough 01/04/2020 01/05/2022 Persistent disorder of initiating or maintaining sleep 05/25/2008 01/05/2022 Depressive disorder, not elsewhere classified 01/05/2022 documented as of this encounter (statuses as of 06/19/2022) [facility]05[facility]10[facility]2021 History of Past illness Narrative* Problem [...] few tabs. Was started on Ceftin per detasseler a few days prior Chronic cough 01/04/2020 01/05/2022 Persistent disorder of initiating or maintaining sleep 05/25/2008 01/05/2022 Depressive disorder, not elsewhere classified 01/05/2022 documented as of this encounter (statuses as of 06/24/2022) [facility]21 History of Past illness Narrative* Problem [...] few tabs. Was started on Ceftin per detasseler a few days prior Chronic cough 01/04/2020 01/05/2022 Persistent disorder of initiating or maintaining sleep 05/25/2008 01/05/2022 Depressive disorder, not elsewhere classified 01/05/2022 documented as of this encounter (statuses as of 06/25/2022) [facility]21 History of Past illness Narrative* Problem [...] few tabs. Was started on Ceftin per detasseler a few days prior Chronic cough 01/04/2020 01/05/2022 Persistent disorder of initiating or maintaining sleep 05/25/2008 01/05/2022 Depressive disorder, not elsewhere classified 01/05/2022 documented as of this encounter (statuses as of 06/26/2022) [facility]21 History of Past illness Narrative* Problem [...] few tabs. Was started on Ceftin per detasseler a few days prior Chronic cough 01/04/2020 01/05/2022 Persistent disorder of initiating or maintaining sleep 05/25/2008 01/05/2022 Depressive disorder, not elsewhere classified 01/05/2022 documented as of this encounter (statuses as of 06/27/2022) [facility]2021 History of Past illness Narrative* Problem [...] few tabs. Was started on Ceftin per detasseler a few days prior Chronic cough 01/04/2020 01/05/2022 Persistent disorder of initiating or maintaining sleep 05/25/2008 01/05/2022 Depressive disorder, not elsewhere classified 01/05/2022 documented as of this encounter (statuses as of 07/11/2022) [facility] History of Past illness Narrative* Problem [...] few tabs. Was started on Ceftin per detasseler a few days prior Chronic cough 01/04/2020 01/05/2022 Persistent disorder of initiating or maintaining sleep 05/25/2008 01/05/2022 Depressive disorder, not elsewhere classified 01/05/2022 documented as of this encounter (statuses as of 07/24/2022) [facility]2021 History of Past illness Narrative* Problem [...] few tabs. Was started on Ceftin per detasseler a few days prior Chronic cough 01/04/2020 01/05/2022 Persistent disorder of initiating or maintaining sleep 05/25/2008 01/05/2022 Depressive disorder, not elsewhere classified 01/05/2022 documented as of this encounter (statuses as of 07/31/2022) [facility]2021 History of Past illness Narrative* Problem [...] few tabs. Was started on Ceftin per detasseler a few days prior Chronic cough 01/04/2020 01/05/2022 Persistent disorder of initiating or maintaining sleep 05/25/2008 01/05/2022 Depressive disorder, not elsewhere classified 01/05/2022 documented as of this encounter (statuses as of 08/01/2022) [facility]2021 History of Past illness Narrative* Problem [...] few tabs. Was started on Ceftin per detasseler a few days prior Chronic cough 01/04/2020 01/05/2022 Persistent disorder of initiating or maintaining sleep 05/25/2008 01/05/2022 Depressive disorder, not elsewhere classified 01/05/2022 documented as of this encounter (statuses as of 08/12/2022) [facility]2021 History of Past illness Narrative* Problem [...] few tabs. Was started on Ceftin per detasseler a few days prior Chronic cough 01/04/2020 01/05/2022 Persistent disorder of initiating or maintaining sleep 05/25/2008 01/05/2022 Depressive disorder, not elsewhere classified 01/05/2022 documented as of this encounter (statuses as of 09/04/2022) [facility]2021 History of Past illness Narrative* Problem [...] few tabs. Was started on Ceftin per detasseler a few days prior Chronic cough 01/04/2020 01/05/2022 Persistent disorder of initiating or maintaining sleep 05/25/2008 01/05/2022 Depressive disorder, not elsewhere classified 01/05/2022 documented as of this encounter (statuses as of 09/04/2022) [facility]2021 History of Past illness Narrative* Problem [...] few tabs. Was started on Ceftin per detasseler a few days prior Chronic cough 01/04/2020 01/05/2022 Persistent disorder of initiating or maintaining sleep 05/25/2008 01/05/2022 Depressive disorder, not elsewhere classified 01/05/2022 documented as of this encounter (statuses as of 09/05/2022) [facility]2021 History of Past illness Narrative* Problem [...] few tabs. Was started on Ceftin per detasseler a few days prior Chronic cough 01/04/2020 01/05/2022 Persistent disorder of initiating or maintaining sleep 05/25/2008 01/05/2022 Depressive disorder, not elsewhere classified 01/05/2022 documented as of this encounter (statuses as of 10/10/2022) [facility]2021 History of Past illness Narrative* Problem [...] few tabs. Was started on Ceftin per detasseler a few days prior Chronic cough 01/04/2020 01/05/2022 Persistent disorder of initiating or maintaining sleep 05/25/2008 01/05/2022 Depressive disorder, not elsewhere classified 01/05/2022 documented as of this encounter (statuses as of 11/12/2022) [facility]2021 History of Past illness Narrative* Problem [...] few tabs. Was started on Ceftin per detasseler a few days prior Chronic cough 01/04/2020 01/05/2022 Persistent disorder of initiating or maintaining sleep 05/25/2008 01/05/2022 Depressive disorder, not elsewhere classified 01/05/2022 documented as of this encounter (statuses as of 11/13/2022) [facility]2021 History of Past illness Narrative* Problem [...] few tabs. Was started on Ceftin per detasseler a few days prior Chronic cough 01/04/2020 01/05/2022 Persistent disorder of initiating or maintaining sleep 05/25/2008 01/05/2022 Depressive disorder, not elsewhere classified 01/05/2022 documented as of this encounter (statuses as of 11/26/2022) [facility]2021 History of Past illness Narrative* Problem [...] few tabs. Was started on Ceftin per detasseler a few days prior Chronic cough 01/04/2020 01/05/2022 Persistent disorder of initiating or maintaining sleep 05/25/2008 01/05/2022 Depressive disorder, not elsewhere classified 01/05/2022 documented as of this encounter (statuses as of 12/09/2022) [facility] History of Past illness Narrative* Problem [...] few tabs. Was started on Ceftin per detasseler a few days prior Chronic cough 01/04/2020 01/05/2022 Persistent disorder of initiating or maintaining sleep 05/25/2008 01/05/2022 Depressive disorder, not elsewhere classified 01/05/2022 documented as of this encounter (statuses as of 12/16/2022) [facility]2021 History of Past illness Narrative* Problem [...] few tabs. Was started on Ceftin per detasseler a few days prior Chronic cough 01/04/2020 01/05/2022 Persistent disorder of initiating or maintaining sleep 05/25/2008 01/05/2022 Depressive disorder, not elsewhere classified 01/05/2022 documented as of this encounter (statuses as of 01/01/2023) [address]10-2021 History of Past illness Narrative* Problem [...] few tabs. Was started on Ceftin per detasseler a few days prior Chronic cough 01/04/2020 01/05/2022 Persistent disorder of initiating or maintaining sleep 05/25/2008 01/05/2022 Depressive disorder, not elsewhere classified 01/05/2022 documented as of this encounter (statuses as of 01/14/2023) [facility]2021 History of Past illness Narrative* Problem [...] few tabs. Was started on Ceftin per detasseler a few days prior Chronic cough 01/04/2020 01/05/2022 Persistent disorder of initiating or maintaining sleep 05/25/2008 01/05/2022 Depressive disorder, not elsewhere classified 01/05/2022 documented as of this encounter (statuses as of 01/23/2023) [facility]2021 History of Past illness Narrative* Problem [...] few tabs. Was started on Ceftin per detasseler a few days prior Chronic cough 01/04/2020 01/05/2022 Persistent disorder of initiating or maintaining sleep 05/25/2008 01/05/2022 Depressive disorder, not elsewhere classified 01/05/2022 documented as of this encounter (statuses as of 02/03/2023) [facility]2021 History of Past illness Narrative* Problem [...] few tabs. Was started on Ceftin per detasseler a few days prior Chronic cough 01/04/2020 01/05/2022 Persistent disorder of initiating or maintaining sleep 05/25/2008 01/05/2022 Depressive disorder, not elsewhere classified 01/05/2022 documented as of this encounter (statuses as of 02/18/2023) [facility]05[facility]2021 History of Past illness Narrative* Problem [...] few tabs. Was started on Ceftin per detasseler a few days prior Chronic cough 01/04/2020 01/05/2022 Persistent disorder of initiating or maintaining sleep 05/25/2008 01/05/2022 Depressive disorder, not elsewhere classified 01/05/2022 documented as of this encounter (statuses as of 02/25/2023) [facility]2021 History of Past illness Narrative* Problem [...] few tabs. 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 A pre-flushed 6-German sheath was inserted into the femoral artery [...] [place] DATE: December 29, 2020 TIME: 10:17 [facility]12-03-2020 History of Present illness Narrative* Selena Wright [...] 27, 2020 12:45 PM documented in [facility] encounter[facility] ClinicDischar summary Author Bhavin Quinn [facility] Note Date/Time May 15, 2025 4:34am [facility] Medical Records Department [address] [place] [address] Emergency Department Summary 05/15/25 MR#: [id number] Acct: [id number] Name: IVET VALERO Rep #:[id number] : 1955 70 From: Bhaivn Quinn DO PCP: Dr. Ricci Cole MD [...] was brought to the hospital for evaluation [facility] Medical History Wears dentures Wears [...] 20 mg tablet 20 [facility] 08/04/23 08/04/23 History promethazine 25 [...] no signs of acute kidneyinjury clinically significant [place] abnormality or thyroid disorder. The urine sample [...] % (Auto) 69.9 Lymph % (Auto) 21.1 [place] % (Auto) 7.4 Eos % (Auto) 0.5 [...] Sl. Cloudy Urine pH 6.0 Ur Specific [place] 1.010 Urine Protein Negative Urine Glucose (UA) [...] ischemic gliotic white matter changes. Reading Location: [facility] Chest CT 05/15/25 00:53 IMPRESSION: 1. No acute findings in the chest as imaged. 2. No rib fractures identified. 3. Left renal cyst measures 3.5 cm. Reading Location: [facility] Discharge Plan Triage Chief Complaint: [...] have pain during this time Print Language: [place] Disposition Disposition: Home, Self Care What to do if you have Problems For any increased pain, shortness of breath, bleeding, nausea or vomiting, chestpain, or any unexpected problems, contact your Primary Care Provider. Call [facility] ([phone]) or report to the closest Emergency Room. Call 911 if necessary. 05/15/25 0348 <Electronically signed by Bhavin Quinn DO> Cosigner Signature (if applicable): CC: Dr. Ricci Cole MD ~ Signed [facility] Work Phone: Evaluation note* Diagnosis COPD with exacerbation (HCC)- Primary Obstructive chronic bronchitis with exacerbation COPD with chronic bronchitis (HCC) Obstructive chronic bronchitis without exacerbation Tobacco use disorder, continuous Tobacco use disorder documented [facility] this encounter [facility]* Diagnosis Nausea Nausea alone documented in this encounter [facility] note* Diagnosis Type 2 diabetes mellitus without complication, without long-term current use of insulin (HCC) documented in this encounter [facility] note* Diagnosis Suspected COVID-19 virus infection- Primary [...] Nausea Nausea alone [facility] Diagnosis Low vitamin D level- Primary Serum calcium elevated Hypercalcemia [facility]* Diagnosis COPD with exacerbation (HCC)- Primary Obstructive chronic bronchitis with exacerbation documented [facility] this encounter [facility] noteNo assessment information availableWProMedica [facility] Work Phone: Evaluation note* Diagnosis Nausea Nausea alone documented in this encounter [facility] note* Diagnosis Nausea- Primary Nausea alone Other [...] Uncontrolled type 2 diabetes mellitus with hyperglycemia ([facility]) Screening breast examination Breast screening, unspecified Screening for colon cancer Special screening for malignant neoplasms, colon Pyuria Other nonspecific finding on examination of urine Chronic bronchitis, unspecified chronic bronchitis type ([facility]) documented in this encounter [facility] note* Diagnosis Leukocytosis, unspecified type- Primary documented in this encounter [facility] note* Diagnosis Onset Date Resolution Status UTI due to extended-spectrum beta lactamase (ESBL) producing Escherichia coli acute [facility] Work Phone: Evaluation note* Diagnosis Onset Date Resolution Status Leukocytosis acute SIRS (systemic inflammatory response syndrome) acute Urinary tract infection acut e UTI due to extended-spectrum beta lactamase (ESBL) producing Escherichia coli acute Diabetes chronic [facility] Work Phone: Evaluation note* Diagnosis Fibromyalgia- Primary Mylagia and myositis, unspecified Type 2 diabetes mellitus without complication, without long-term current use of insulin ([facility]) Screening for colon cancer Special screening for malignant neoplasms, colon Primary hypertension Unspecified essential hypertension Depression, major, recurrent, in complete remission (HCC) Major depressive disorder, recurrent episode, in full remission Hospital discharge follow-up Other follow-up examination documented in this encounter [facility] note* Diagnosis Nausea Nausea alone documented in this encounter [facility] note* Diagnosis Chronic nausea Nausea alone documented in this encounter [facility] note* Diagnosis Panic attacks Panic disorder without agoraphobia documented in this encounter [facility] note* Diagnosis Nausea Nausea alone documented in this encounter [facility] note* Diagnosis Onset Date Resolution Status Leukocytosis resolved SIRS (systemic inflammatory response syndrome) resolved Intractable nausea and vomiting acute Nausea acute Acute encephalopathy acute Acute UTI acute Sepsis acute Type 2 diabetes mellitus without complications chronic [facility] Work Phone: Evaluation note* Diagnosis Onset Date Resolution Status Leukocytosis resolved SIRS (systemic inflammatory response syndrome) resolved Intractable nausea and vomiting acute Nausea acute Acute encephalopathy resolve d Acute UTI resolved [facility] Work Phone: Evaluation note* Diagnosis Fibromyalgia Mylagia and myositis, unspecified documented in this encounter [facility] note* Diagnosis Onset Date Resolution Status Intractable nausea and vomiting acute Nausea acute Acute encephalopathy resolve d Acute UTI resolved [facility] Work Phone: Evaluation note* Diagnosis Nausea Nausea alone documented in this encounter [facility] note* Diagnosis Panic attacks Panic disorder without agoraphobia documented in this encounter [facility] note* Diagnosis Type 2 diabetes mellitus without complication, without long-term current use of insulin (HCC) Chronic bronchitis, unspecified chronic bronchitis type (HCC) documented in this encounter [facility] note* Diagnosis Type 2 diabetes mellitus without complication, without long-term current use of insulin (HCC) documented in this encounter [facility] note* Diagnosis Type 2 diabetes mellitus without complication, without long-term current use of insulin (HCC) documented in this encounter [facility] note* Diagnosis Encounter for screening mammogram for breast cancer documented in this encounter [facility] note* Diagnosis Type 2 diabetes mellitus without complication, without long-term current use of insulin (HCC) documented in this encounter [facility] note* Diagnosis Type 2 diabetes mellitus without complication, without long-term current use of insulin (HCC) documented in this encounter [facility] note* Diagnosis Candidiasis Candidiasis of unspecified site documented in this encounter [facility] note* Diagnosis Needs assistance with community resources- Primary Assistance needed with transportation documented in this encounter [facility] note* Diagnosis Type 2 diabetes mellitus without complication, without long-term current use of insulin (HCC) documented in this encounter [facility] note* Diagnosis Type 2 diabetes mellitus without [...] at least yearly. [facility]* Diagnosis Vitamin D deficiency- Primary [...] chronic Fibromyalgia chronic Hypertension chronic Tobacco abuse [facility] Work Phone: [facility]* Diagnosis Onset Date Resolution Status Acute UTI acute Anxiety and depression acute Diabetes acute GERD (gastroesophageal reflux disease) acute Leukocytosis acute Nausea acute COPD (chronic obstructive pulmonary disease) chronic Fibromyalgia chronic Hypertension chronic Tobacco abuse [facility] Work Phone: Evaluation note* Diagnosis Type 2 diabetes mellitus without complication, without long-term current use of insulin ([facility]) documented in this encounter [facility] note* Diagnosis Type 2 diabetes mellitus without complication, without long-term current use of insulin (HCC)- Primary documented in this encounter [facility] note* Diagnosis Chronic nausea Nausea alone documented in this encounter [facility] note* Diagnosis Chronic bronchitis, unspecified chronic bronchitis type (HCC)- Primary documented in this encounter [facility] note* Diagnosis Chronic nausea Nausea alone documented in this encounter [facility] note* Diagnosis Chronic nausea Nausea alone documented in this encounter [facility] note* Diagnosis Chronic bronchitis, unspecified chronic bronchitis type (HCC) Chronic nausea Nausea alone documented in this encounter [facility] note* Diagnosis Type 2 diabetes mellitus without complication, without long-term current use of insulin ([facility]) documented in this encounter [facility] note* Diagnosis Type 2 diabetes mellitus without complication, without long-term current use of insulin ([facility]) documented in this encounter [facility] note* Diagnosis Encounter for screening mammogram for breast cancer documented in this encounter [facility] note* Diagnosis Dysuria- Primary Cutaneous candidiasis Candidiasis of skin and nails Tinea corporis Dermatophytosis of the body documented in this encounter [facility] note* Diagnosis Type 2 diabetes mellitus without complication, without long-term current use of insulin (HCC) documented in this encounter [facility] note* Diagnosis Recurrent UTI (urinary tract infection)- Primary Urinary tract infection, site not specified documented in this encounter [facility] note* Diagnosis Chronic nausea Nausea alone documented in this encounter [facility] note* Diagnosis Type 2 diabetes mellitus without complication, without long-term current use of insulin (HCC) Chronic nausea Nausea alone documented in this encounter [facility] note* Diagnosis Type 2 diabetes mellitus without [...] of insulin (HCC) [facility] encounter [facility]* Diagnosis Type 2 [...] nausea Nausea alone [facility] encounter [facility]* Diagnosis Type 2 [...] and stress (male)(female) documented in this encounter [facility] note* Diagnosis Type 2 diabetes mellitus without [...] behavior of skin documented in this encounter [facility] note* Diagnosis Type 2 diabetes mellitus without [...] of insulin (HCC) documented [facility] this encounter [facility]* Diagnosis Type 2 [...] Subacute cough Cough documented in this encounter [facility] note* Diagnosis Type 2 diabetes mellitus without [...] site not specified documented in this encounter [facility] note* Diagnosis Type 2 diabetes mellitus without [...] site not specified [facility] encounter [facility]* Diagnosis Cough Type [...] with hyperglycemia (HCC) documented [facility] this encounter [facility]* Diagnosis Type 2 [...] single bacterial disease [facility] this encounter [facility]* Diagnosis Type 2 [...] of insulin (HCC) documented in this encounter [facility]* Diagnosis Type 2 [...] site not specified documented in this encounter [facility] note* Diagnosis Type 2 diabetes mellitus without [...] of insulin (HCC) documented in this encounter [facility] note* Diagnosis Type 2 diabetes mellitus without [...] of insulin (HCC) documented in this encounter [facility] note* Diagnosis Type 2 diabetes mellitus without [...] nausea Nausea alone documented in this encounter [facility] note* Diagnosis Type 2 diabetes mellitus without [...] of insulin (HCC) documented in this encounter [facility] note* Diagnosis Type 2 diabetes mellitus without [...] hyperglycemia (HCC)- Primary documented in this encounter [facility] note* Diagnosis Type 2 diabetes mellitus without [...] nausea Nausea alone documented in this encounter [facility] note* Diagnosis Type 2 diabetes mellitus without [...] vitamin D deficiency documented in this encounter [facility] note* Diagnosis Type 2 diabetes mellitus without [...] hyperglycemia (HCC)- Primary documented in this encounter [facility] note* Diagnosis Type 2 diabetes mellitus without [...] vitamin D deficiency documented in this encounter [facility] note* Diagnosis Type 2 diabetes mellitus without [...] nausea Nausea alone documented in this encounter [facility] note* Diagnosis Type 2 diabetes mellitus without [...] site not specified documented in this encounter [facility] note* Diagnosis Type 2 diabetes mellitus without [...] for breast cancer documented in this encounter [facility] note* Diagnosis Type 2 diabetes mellitus without [...] nausea Nausea alone documented in this encounter [facility] note* Diagnosis Type 2 diabetes mellitus without [...] Acute cough- Primary documented in this encounter [facility] note* Diagnosis Type 2 diabetes mellitus without [...] vitamin D deficiency [facility] encounter [facility]* Diagnosis Type 2 [...] nausea Nausea alone documented [facility] this encounter [facility]* Diagnosis Type 2 [...] gastritis without hemorrhage [facility] Additional Instructions Take antibiotics until completion. Use Reglan for nausea. If you feel worse, please return.[facility] Work Phone: Hospital Discharge instructionsAdditional Instructions [...] may have pain during this timeWooMercy Health [facility] Work Phone: Reason for referral (narrative)* Outpatient Procedure (Routine) - Pending Review Specialty Diagnoses / Procedures Referred By Pebbles ernandez Referred To [facility] Diagnoses COPD with chronic bronchitis (HCC) Procedures SPIROMETRY BASELINE ONLY SPMTRY W/VC EXPIRATORY EVER W/WO MXML VOL VNTJ Joyce Perry PA-C [address] [facility] [place] [address] [place] [id number] Referral ID Status Reason Start Date Expiration Date Visits Requested Visits Authorized [id number] Pending Review Auto-Generat ed Referral 11/22/2021 12/22/2022 1 1 [facility] for referral (narrative)* Outpatient Procedure (Routine) - Closed Specialty Diagnoses / Procedures Referred By Pebbles ernandez Ref[facility] Diagnoses Intermittent chest pain Procedures ECG COMPLETE ECG ROUTINE ECG W/LEAST 12 LDS W/I&R Yasmany Holland PA-C [address] [place] [address] [facility] [place] [address] [employer] [place] [address] Referral ID Status Reason Start Date Expiration Date V isits Requested Visits Authorized [id number] Closed Auto-Generate d Referral 12/18/2021 12/18/2022 1 1 T [facility] for referral (narrative)* Diagnostic Procedure Only (Routine) - Pending Review Specialty Diagnoses / Procedures Referred By Contgabriela t Referred To Contact [facility] Diagnoses Encounter for screening mammogram for breast cancer Procedures JANELL SCREENING SCREENING MAMMOGRAPHY BI 2-VIEW BREAST INC Ricci Michel MD [address] [place] [address] [facility] [address] [place] [address] Referral ID Status Reason Start Date Expiration Date Visits Requested Visits Authorized [id number] Pending Review Auto-Generat ed Referral 12/11/2022 01/10/2024 1 1 [facility] for referral (narrative)* Diagnostic Procedure Only (Routine) - New Request Specialty Diagnoses / Procedures Referred By Contac t Referred To Contact [facility] Diagnoses Encounter for screening mammogram for breast cancer Procedures JANELL SCREENING W KOKO SCREENING DIGITAL BREAST TOMOSYNTHESIS BI SCREENING MAMMOGRAPHY BI 2-VIEW BREAST INC Ricci Michel MD [address] [place] [address] [facility] [address] [place] [address] Referral ID Status Reason Start Date Expiration Date Visits Requested Visits Authorized [id number] New Request Auto-Generat ed Referral 03/17/2024 04/16/2025 1 1 [facility]ative)No reason for referral information availableWProMedica [facility] Work Phone: Summary Purpose Family History No Family History Records Found Relationship Condition Age at Onset Recorded Date/T lily brother Diabetes mellitus Unknown Hypertension Unknown Advance Directives No Advanced Directives Records FoundDocuments on File Type Date 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 Advance Directive(s) Advance Directive(s) 12/29/2020 7:36 AM Advance Directive(s) 12/06/2015 7:48 AM Advance Directive(s) 11/21/2015 3:45 PM Advance Directive(s) 11/06/2015 2:38 PM Documents on File Type Date 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 Advance Directive(s) Advance Directive(s) 12/29/2020 7:36 AM Advance Directive(s) 12/06/2015 7:48 AM Advance Directive(s) 11/21/2015 3:45 PM Advance Directive(s) 11/06/2015 2:38 PM Advance Directive Response Recorded Date/ Time Advance Directives No March 30 12:37am Living Will No January 02, 2022 1 1:41am Power of Pelts Skinner No January 02, 2022 11:41am Advance Directive Response Recorded Date/ Time Advance Directives No March 30 12:37am Living Will No January 17, 2022 4 :35pm Power of Pelts Skinner No January 17, 2022 4:35pm Advance Directive Response Recorded Date/ Time Advance Directives No March 30 12:37am Living Will No January 17, 2022 6 :40pm Power of Pelts Skinner No January 17, 2022 6:40pm Advance Directive Response Recorded Date/ Time Advance Directives No March 30 12:37am Living Will No April 30 10:02pm Power of Pelts Skinner No April 30, 2022 10:02pm Advance Directive Response Recorded Date/ Time Advance Directives No March 30 12:37am Living Will No May 01 1:40am Power of Pelts Skinner No May 01, 2022 1:40am Advance Directive Response Recorded Date/ Time Advance Directives No March 30 12:37am Living Will No June 11 8:40am Power of Pelts Skinner No June 11, 2022 8:40am Advance Directive Response Recorded Date/ Time Advance Directives No March 30 12:37am Living Will No November 14, 2022 11:10am Power of Pelts Skinner No November 14 11:10am Advance Directive Response Recorded Date/ Time Advance Directives No March 29 11:37pm Living Will No August 04 023 1:02pm Power of Pelts Skinner No August 04, 2023 1:02pm Advance Directive Response Recorded Date/ Time Advance Directives No March 29 11:37pm Living Will No August 04 023 9:49pm Power of Pelts Skinner No August 04, 2023 9:49pm Advance Directive Response Recorded Date/ Time Do you have a Healthcare Power of Pelts Skinner? No May 15, 2025 12:25am Advance Directives [...] Referred To Contact Yasmany Holland PA-C [address] [place] [address] Referral ID Status Reason Start Date Expiration Date Visits Re quested Visits Authorized [id number] Closed 1 1 Specialty Diagnoses / Procedures Referred By Pebbles ernandez Referred To Contact Urology Diagnoses Urinary incontinence, unspecified type History of recurrent UTIs Procedures CONSULT TO UROLOGY OFFICE/OUTPATIENT [facility] 60-74 MINUTES Ricci Cole MD [address] [place] [address] Referral ID Status Reason Start Date Expiration Date Visits Requested Visits Authorized [id number] Authorized PCP Requested Referral 01/05/2022 01/05/2023 1 1 Specialty Diagnoses / Procedures Referred By Pebbles ernandez Referred To Contact Gastroenterology Diagnoses Nausea Other chronic gastritis without hemorrhage Screening for colon cancer Procedures CONSULT TO GASTROENTEROLOGY OFFICE/OUTPATIENT [facility] 60-[place] [address] [place] [id number] Referral ID Status Reason Start Date Expiration Date Visits Requested Visits Authorized [id number] Authorized PCP Requested Referral 01/05/2022 01/05/2023 1 1 Specialty Diagnoses / Procedures Referred By Contac t Referred To Contact [facility] Diagnoses Screening breast examination Procedures JANELL SCREENING SCREENING MAMMOGRAPHY BI 2-VIEW BREAST INC CAD Ricci Cole MD [address] [place] [address] [facility] [address] [place] [address] Referral ID Status Reason Start Date Expiration Date Visits Requested Visits Authorized [id number] Pending Review Auto-Generat ed Referral 01/05/2022 02/04/2023 1 1 Specialty Diagnoses / Procedures Referred By Contac t Referred To Contact Ophthalmology Diagnoses Type 2 diabetes mellitus without complication, without long-term current use of insulin (HCC) Procedures CONSULT TO OPHTHALMOLOGY OFFICE/OUTPATIENT NEW [facility] MDM 60-74 MINUTES Yasmany Holland PA-C [address] [id number] Referral ID Status Reason Start Date Expiration Date Visits Requested Visits Authorized [id number] Authorized PCP Requested Referral 01/29/2022 01/29/2023 1 1 Specialty Diagnoses / Procedures Referred By Contac t Referred To Contact Diagnoses Encounter for screening for lung cancer Procedures CONSULT LUNG CANCER SCREENING CLINIC Nanci Huber, NASEEM.NEUROPHYSIOLOGICAL TECHNICIAN [address] [place] [address] Referral ID Status Reason Start Date Expiration Date Visits Requested Visits Authorized [id number] Ref Not Required PCP Requested Referral 04/15/2023 07/14/2023 1 1 Specialty Diagnoses / Procedures Referred By Contac t Referred To Contact [facility] Diagnoses Visit for screening mammogram Procedures JANELL SCREENING SCREENING MAMMOGRAPHY BI 2-VIEW BREAST INC CAD Nanci Huber, PROCESS DESIGN ENGINEER.NEUROPHYSIOLOGICAL TECHNICIAN [address] [place] [address] [facility] [address] [place] [address] Referral ID Status Reason Start Date Expiration Date Visits Requested Visits Authorized [id number] Pending Review Auto-Generat ed Referral 04/15/2023 05/14/2024 1 1 Specialty Diagnoses / Procedures Referred By Contac t Referred To Contact Dermatology Diagnoses 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 Procedures CONSULT TO DERMATOLOGY Smiley Melo APRN.NEUROPHYSIOLOGICAL TECHNICIAN [address] [place] [address] Referral ID Status Reason Start Date Expiration Date Visits Requested Visits Authorized [id number] Ref Not Required PCP Requested Referral 04/29/2024 04/29/2025 1 1 Specialty Diagnoses / Procedures Referred By Contac t Referred To Contact Urology Diagnoses Recurrent UTI (urinary tract infection) Procedures CONSULT TO UROLOGY OFFICE/OUTPATIENT [facility] MDM 60 MINUTES Smiley Melo APRN.NEUROPHYSIOLOGICAL TECHNICIAN [address] [place] [phone] Referral ID Status Reason Start Date Expiration Date Visits Requested Visits Authorized [id number] Authorized PCP Requested Referral 05/11/2024 05/11/2025 1 1 Specialty Diagnoses / Procedures Referred By Contac t Referred To Contact Ophthalmology Diagnoses Type 2 diabetes mellitus without complication, without long-term current use of insulin (HCC) Procedures CONSULT TO OPHTHALMOLOGY OFFICE/OUTPATIENT [facility] MDM 60 MINUTES Smiley Melo APRN.NEUROPHYSIOLOGICAL TECHNICIAN [address] [place] [phone] Referral ID Status Reason Start Date Expiration Date Visits Requested Visits Authorized [id number] Authorized PCP Requested Referral 07/26/2025 1 1 Specialty Diagnoses / Procedures Referred By Contac t Referred To Contact XR IMAGING Diagnoses Screening for osteoporosis Asymptomatic menopause Procedures DXA-AXIAL SKELETON DXA BONE DENSITY STUDY / SITES AXIAL SKEL Smiley Melo APRN.NEUROPHYSIOLOGICAL TECHNICIAN [address] [place] [address] [place] [id number] Referral ID Status Reason Start Date Expiration Date Visits Requested Visits Authorized [id number] Authorized Auto-Generat ed Referral 07/26/2024 08/25/2025 1 1 Specialty Diagnoses / Procedures Referred By Contac t Referred To Contact Diagnoses Encounter for screening for lung cancer Procedures CONSULT LUNG CANCER SCREENING CLINIC Smiley Melo APRN.NEUROPHYSIOLOGICAL TECHNICIAN [address] [place] [address] Referral ID Status Reason Start Date Expiration Date Visits Requested Visits Authorized [id number] Ref Not Required PCP Requested Referral 07/26/2024 [...] section and content) DATE [facility] DATE CREATED AUTHOR AUTHOR'S ORGANIZ ATION 12/31/2020 [facility] DATE CREATED AUTHOR AUTHOR'S ORGANIZ ATION 07/23/2021 [facility] DATE CREATED AUTHOR AUTHOR'S ORGANIZ ATION 06/10/2025 [facility] DATE CREATED AUTHOR AUTHOR'S ORGANIZ ATION 06/23/2025 [facility] Source Comments (unrecognize d section and content) In the event this informatio n is protected by the Federal Confidentiality of Alcohol and Drug Abuse Patient Records regulations: The Federal rules restrict any use of the information to criminally investigate or prosecute any alcohol or drug abuse patient.[facility] the event this information is protected by the Federal Confidentiality of Alcohol and Drug Abuse Patient Records regulations: The Federal rules restrict any use of the information to criminally investigate or prosecute any alcohol or drug abuse patient.[facility] HospitalIn the event this information is protected by the Federal Confidentiality of Alcohol and Drug Abuse Patient Records regulations: The Federal rules restrict any use of the information to criminally investigate or prosecute any alcohol or drug abuse patient.[facility] HospitalIn the event this information is protected by the Federal Confidentiality of Alcohol and Drug Abuse Patient Records regulations: The Federal rules restrict any use of the information to criminally investigate or prosecute any alcohol or drug abuse patient.[facility] HospitalIn the event this information is protected by the Federal Confidentiality of Alcohol and Drug Abuse Patient Records regulations: The Federal rules restrict any use of the information to criminally investigate or prosecute any alcohol or drug abuse patient.[facility] HospitalIn the event this information is protected by the Federal Confidentiality of Alcohol and Drug Abuse Patient Records regulations: The Federal rules restrict any use of the information to criminally investigate or prosecute any alcohol or drug abuse patient.[facility] HospitalIn the event this information is protected by the Federal Confidentiality of Alcohol and Drug Abuse Patient Records regulations: The Federal rules restrict any use of the information to criminally investigate or prosecute any alcohol or drug abuse patient.[facility] HospitalIn the event this information is protected by the Federal Confidentiality of Alcohol and Drug Abuse Patient Records regulations: The Federal rules restrict any use of the information to criminally investigate or prosecute any alcohol or drug abuse patient.[facility] HospitalIn the event this information is protected by the Federal Confidentiality of Alcohol and Drug Abuse Patient Records regulations: The Federal rules restrict any use of the information to criminally investigate or prosecute any alcohol or drug abuse patient.[facility] HospitalIn the event this information is protected by the Federal Confidentiality of Alcohol and Drug Abuse Patient Records regulations: The Federal rules restrict any use of the information to criminally investigate or prosecute any alcohol or drug abuse patient.[facility] HospitalIn the event this information is protected by the Federal Confidentiality of Alcohol and Drug Abuse Patient Records regulations: The Federal rules restrict any use of the information to criminally investigate or prosecute any alcohol or drug abuse patient.[facility] HospitalIn the event this information is protected by the Federal Confidentiality of Alcohol and Drug Abuse Patient Records regulations: The Federal rules restrict any use of the information to criminally investigate or prosecute any alcohol or drug abuse patient.[facility] HospitalIn the event this information is protected by the Federal Confidentiality of Alcohol and Drug Abuse Patient Records regulations: The Federal rules restrict any use of the information to criminally investigate or prosecute any alcohol or drug abuse patient.[facility] HospitalIn the event this information is protected by the Federal Confidentiality of Alcohol and Drug Abuse Patient Records regulations: The Federal rules restrict any use of the information to criminally investigate or prosecute any alcohol or drug abuse patient.[facility] HospitalIn the event this information is protected by the Federal Confidentiality of Alcohol and Drug Abuse Patient Records regulations: The Federal rules restrict any use of the information to criminally investigate or prosecute any alcohol or drug abuse patient.[facility] HospitalIn the event this information is protected by the Federal Confidentiality of Alcohol and Drug Abuse Patient Records regulations: The Federal rules restrict any use of the information to criminally investigate or prosecute any alcohol or drug abuse patient.[facility] HospitalIn the event this information is protected by the Federal Confidentiality of Alcohol and Drug Abuse Patient Records regulations: The Federal rules restrict any use of the information to criminally investigate or prosecute any alcohol or drug abuse patient.[facility] HospitalIn the event this information is protected by the Federal Confidentiality of Alcohol and Drug Abuse Patient Records regulations: The Federal rules restrict any use of the information to criminally investigate or prosecute any alcohol or drug abuse patient.[facility] HospitalIn the event this information is protected by the Federal Confidentiality of Alcohol and Drug Abuse Patient Records regulations: The Federal rules restrict any use of the information to criminally investigate or prosecute any alcohol or drug abuse patient.[facility] HospitalIn the event this information is protected by the Federal Confidentiality of Alcohol and Drug Abuse Patient Records regulations: The Federal rules restrict any use of the information to criminally investigate or prosecute any alcohol or drug abuse patient.[facility] HospitalIn the event this information is protected by the Federal Confidentiality of Alcohol and Drug Abuse Patient Records regulations: The Federal rules restrict any use of the information to criminally investigate or prosecute any alcohol or drug abuse patient.[facility] HospitalIn the event this information is protected by the Federal Confidentiality of Alcohol and Drug Abuse Patient Records regulations: The Federal rules restrict any use of the information to criminally investigate or prosecute any alcohol or drug abuse patient.[facility] HospitalIn the event this information is protected by the Federal Confidentiality of Alcohol and Drug Abuse Patient Records regulations: The Federal rules restrict any use of the information to criminally investigate or prosecute any alcohol or drug abuse patient.[facility] HospitalIn the event this information is protected by the Federal Confidentiality of Alcohol and Drug Abuse Patient Records regulations: The Federal rules restrict any use of the information to criminally investigate or prosecute any alcohol or drug abuse patient.[facility] HospitalIn the event this information is protected by the Federal Confidentiality of Alcohol and Drug Abuse Patient Records regulations: The Federal rules restrict any use of the information to criminally investigate or prosecute any alcohol or drug abuse patient.[facility] HospitalIn the event this information is protected by the Federal Confidentiality of Alcohol and Drug Abuse Patient Records regulations: The Federal rules restrict any use of the information to criminally investigate or prosecute any alcohol or drug abuse patient.[facility] HospitalIn the event this information is protected by the Federal Confidentiality of Alcohol and Drug Abuse Patient Records regulations: The Federal rules restrict any use of the information to criminally investigate or prosecute any alcohol or drug abuse patient.[facility] HospitalIn the event this information is protected by the Federal Confidentiality of Alcohol and Drug Abuse Patient Records regulations: The Federal rules restrict any use of the information to criminally investigate or prosecute any alcohol or drug abuse patient.[facility] HospitalIn the event this information is protected by the Federal Confidentiality of Alcohol and Drug Abuse Patient Records regulations: The Federal rules restrict any use of the information to criminally investigate or prosecute any alcohol or drug abuse patient.[facility] HospitalIn the event this information is protected by the Federal Confidentiality of Alcohol and Drug Abuse Patient Records regulations: The Federal rules restrict any use of the information to criminally investigate or prosecute any alcohol or drug abuse patient.[facility] HospitalIn the event this information is protected by the Federal Confidentiality of Alcohol and Drug Abuse Patient Records regulations: The Federal rules restrict any use of the information to criminally investigate or prosecute any alcohol or drug abuse patient.[facility] HospitalIn the event this information is protected by the Federal Confidentiality of Alcohol and Drug Abuse Patient Records regulations: The Federal rules restrict any use of the information to criminally investigate or prosecute any alcohol or drug abuse patient.[facility] HospitalIn the event this information is protected by the Federal Confidentiality of Alcohol and Drug Abuse Patient Records regulations: The Federal rules restrict any use of the information to criminally investigate or prosecute any alcohol or drug abuse patient.[facility] HospitalIn the event this information is protected by the Federal Confidentiality of Alcohol and Drug Abuse Patient Records regulations: The Federal rules restrict any use of the information to criminally investigate or prosecute any alcohol or drug abuse patient.[facility] HospitalIn the event this information is protected by the Federal Confidentiality of Alcohol and Drug Abuse Patient Records regulations: The Federal rules restrict any use of the information to criminally investigate or prosecute any alcohol or drug abuse patient.[facility] HospitalIn the event this information is protected by the Federal Confidentiality of Alcohol and Drug Abuse Patient Records regulations: The Federal rules restrict any use of the information to criminally investigate or prosecute any alcohol or drug abuse patient.[facility] HospitalIn the event this information is protected by the Federal Confidentiality of Alcohol and Drug Abuse Patient Records regulations: The Federal rules restrict any use of the information to criminally investigate or prosecute any alcohol or drug abuse patient.[facility] HospitalIn the event this information is protected by the Federal Confidentiality of Alcohol and Drug Abuse Patient Records regulations: The Federal rules restrict any use of the information to criminally investigate or prosecute any alcohol or drug abuse patient.[facility] HospitalIn the event this information is protected by the Federal Confidentiality of Alcohol and Drug Abuse Patient Records regulations: The Federal rules restrict any use of the information to criminally investigate or prosecute any alcohol or drug abuse patient.[facility] HospitalIn the event this information is protected by the Federal Confidentiality of Alcohol and Drug Abuse Patient Records regulations: The Federal rules restrict any use of the information to criminally investigate or prosecute any alcohol or drug abuse patient.[facility] HospitalIn the event this information is protected by the Federal Confidentiality of Alcohol and Drug Abuse Patient Records regulations: The Federal rules restrict any use of the information to criminally investigate or prosecute any alcohol or drug abuse patient.[facility] HospitalIn the event this information is protected by the Federal Confidentiality of Alcohol and Drug Abuse Patient Records regulations: The Federal rules restrict any use of the information to criminally investigate or prosecute any alcohol or drug abuse patient.[facility] HospitalIn the event this information is protected by the Federal Confidentiality of Alcohol and Drug Abuse Patient Records regulations: The Federal rules restrict any use of the information to criminally investigate or prosecute any alcohol or drug abuse patient.[facility] HospitalIn the event this information is protected by the Federal Confidentiality of Alcohol and Drug Abuse Patient Records regulations: The Federal rules restrict any use of the information to criminally investigate or prosecute any alcohol or drug abuse patient.[facility] HospitalIn the event this information is protected by the Federal Confidentiality of Alcohol and Drug Abuse Patient Records regulations: The Federal rules restrict any use of the information to criminally investigate or prosecute any alcohol or drug abuse patient.[facility] HospitalIn the event this information is protected by the Federal Confidentiality of Alcohol and Drug Abuse Patient Records regulations: The Federal rules restrict any use of the information to criminally investigate or prosecute any alcohol or drug abuse patient.[facility] HospitalIn the event this information is protected by the Federal Confidentiality of Alcohol and Drug Abuse Patient Records regulations: The Federal rules restrict any use of the information to criminally investigate or prosecute any alcohol or drug abuse patient.[facility] HospitalIn the event this information is protected by the Federal Confidentiality of Alcohol and Drug Abuse Patient Records regulations: The Federal rules restrict any use of the information to criminally investigate or prosecute any alcohol or drug abuse patient.[facility] HospitalIn the event this information is protected by the Federal Confidentiality of Alcohol and Drug Abuse Patient Records regulations: The Federal rules restrict any use of the information to criminally investigate or prosecute any alcohol or drug abuse patient.[facility] HospitalIn the event this information is protected by the Federal Confidentiality of Alcohol and Drug Abuse Patient Records regulations: The Federal rules restrict any use of the information to criminally investigate or prosecute any alcohol or drug abuse patient.[facility] HospitalIn the event this information is protected by the Federal Confidentiality of Alcohol and Drug Abuse Patient Records regulations: The Federal rules restrict any use of the information to criminally investigate or prosecute any alcohol or drug abuse patient.[facility] HospitalIn the event this information is protected by the Federal Confidentiality of Alcohol and Drug Abuse Patient Records regulations: The Federal rules restrict any use of the information to criminally investigate or prosecute any alcohol or drug abuse patient.[facility] HospitalIn the event this information is protected by the Federal Confidentiality of Alcohol and Drug Abuse Patient Records regulations: The Federal rules restrict any use of the information to criminally investigate or prosecute any alcohol or drug abuse patient.[facility] HospitalIn the event this information is protected by the Federal Confidentiality of Alcohol and Drug Abuse Patient Records regulations: The Federal rules restrict any use of the information to criminally investigate or prosecute any alcohol or drug abuse patient.[facility] HospitalIn the event this information is protected by the Federal Confidentiality of Alcohol and Drug Abuse Patient Records regulations: The Federal rules restrict any use of the information to criminally investigate or prosecute any alcohol or drug abuse patient.[facility] HospitalIn the event this information is protected by the Federal Confidentiality of Alcohol and Drug Abuse Patient Records regulations: The Federal rules restrict any use of the information to criminally investigate or prosecute any alcohol or drug abuse patient.[facility] HospitalIn the event this information is protected by the Federal Confidentiality of Alcohol and Drug Abuse Patient Records regulations: The Federal rules restrict any use of the information to criminally investigate or prosecute any alcohol or drug abuse patient.[facility] HospitalIn the event this information is protected by the Federal Confidentiality of Alcohol and Drug Abuse Patient Records regulations: The Federal rules restrict any use of the information to criminally investigate or prosecute any alcohol or drug abuse patient.[facility] HospitalIn the event this information is protected by the Federal Confidentiality of Alcohol and Drug Abuse Patient Records regulations: The Federal rules restrict any use of the information to criminally investigate or prosecute any alcohol or drug abuse patient.[facility] HospitalIn the event this information is protected by the Federal Confidentiality of Alcohol and Drug Abuse Patient Records regulations: The Federal rules restrict any use of the information to criminally investigate or prosecute any alcohol or drug abuse patient.[facility] HospitalIn the event this information is protected by the Federal Confidentiality of Alcohol and Drug Abuse Patient Records regulations: The Federal rules restrict any use of the information to criminally investigate or prosecute any alcohol or drug abuse patient.[facility] HospitalIn the event this information is protected by the Federal Confidentiality of Alcohol and Drug Abuse Patient Records regulations: The Federal rules restrict any use of the information to criminally investigate or prosecute any alcohol or drug abuse patient.[facility] HospitalIn the event this information is protected by the Federal Confidentiality of Alcohol and Drug Abuse Patient Records regulations: The Federal rules restrict any use of the information to criminally investigate or prosecute any alcohol or drug abuse patient.[facility] HospitalIn the event this information is protected by the Federal Confidentiality of Alcohol and Drug Abuse Patient Records regulations: The Federal rules restrict any use of the information to criminally investigate or prosecute any alcohol or drug abuse patient.[facility] HospitalIn the event this information is protected by the Federal Confidentiality of Alcohol and Drug Abuse Patient Records regulations: The Federal rules restrict any use of the information to criminally investigate or prosecute any alcohol or drug abuse patient.[facility] HospitalIn the event this information is protected by the Federal Confidentiality of Alcohol and Drug Abuse Patient Records regulations: The Federal rules restrict any use of the information to criminally investigate or prosecute any alcohol or drug abuse patient.[facility] HospitalIn the event this information is protected by the Federal Confidentiality of Alcohol and Drug Abuse Patient Records regulations: The Federal rules restrict any use of the information to criminally investigate or prosecute any alcohol or drug abuse patient.[facility] HospitalIn the event this information is protected by the Federal Confidentiality of Alcohol and Drug Abuse Patient Records regulations: The Federal rules restrict any use of the information to criminally investigate or prosecute any alcohol or drug abuse patient.[facility] HospitalIn the event this information is protected by the Federal Confidentiality of Alcohol and Drug Abuse Patient Records regulations: The Federal rules restrict any use of the information to criminally investigate or prosecute any alcohol or drug abuse patient.[facility] HospitalIn the event this information is protected by the Federal Confidentiality of Alcohol and Drug Abuse Patient Records regulations: The Federal rules restrict any use of the information to criminally investigate or prosecute any alcohol or drug abuse patient.[facility] HospitalIn the event this information is protected by the Federal Confidentiality of Alcohol and Drug Abuse Patient Records regulations: The Federal rules restrict any use of the information to criminally investigate or prosecute any alcohol or drug abuse patient.[facility] HospitalIn the event this information is protected by the Federal Confidentiality of Alcohol and Drug Abuse Patient Records regulations: The Federal rules restrict any use of the information to criminally investigate or prosecute any alcohol or drug abuse patient.[facility] HospitalIn the event this information is protected by the Federal Confidentiality of Alcohol and Drug Abuse Patient Records regulations: The Federal rules restrict any use of the information to criminally investigate or prosecute any alcohol or drug abuse patient.[facility] HospitalIn the event this information is protected by the Federal Confidentiality of Alcohol and Drug Abuse Patient Records regulations: The Federal rules restrict any use of the information to criminally investigate or prosecute any alcohol or drug abuse patient.[facility] HospitalIn the event this information is protected by the Federal Confidentiality of Alcohol and Drug Abuse Patient Records regulations: The Federal rules restrict any use of the information to criminally investigate or prosecute any alcohol or drug abuse patient.[facility] HospitalIn the event this information is protected by the Federal Confidentiality of Alcohol and Drug Abuse Patient Records regulations: The Federal rules restrict any use of the information to criminally investigate or prosecute any alcohol or drug abuse patient.[facility] HospitalIn the event this information is protected by the Federal Confidentiality of Alcohol and Drug Abuse Patient Records regulations: The Federal rules restrict any use of the information to criminally investigate or prosecute any alcohol or drug abuse patient.[facility] HospitalIn the event this information is protected by the Federal Confidentiality of Alcohol and Drug Abuse Patient Records regulations: The Federal rules restrict any use of the information to criminally investigate or prosecute any alcohol or drug abuse patient.[facility] HospitalIn the event this information is protected by the Federal Confidentiality of Alcohol and Drug Abuse Patient Records regulations: The Federal rules restrict any use of the information to criminally investigate or prosecute any alcohol or drug abuse patient.[facility] HospitalIn the event this information is protected by the Federal Confidentiality of Alcohol and Drug Abuse Patient Records regulations: The Federal rules restrict any use of the information to criminally investigate or prosecute any alcohol or drug abuse patient.[facility] HospitalIn the event this information is protected by the Federal Confidentiality of Alcohol and Drug Abuse Patient Records regulations: The Federal rules restrict any use of the information to criminally investigate or prosecute any alcohol or drug abuse patient.[facility] HospitalIn the event this information is protected by the Federal Confidentiality of Alcohol and Drug Abuse Patient Records regulations: The Federal rules restrict any use of the information to criminally investigate or prosecute any alcohol or drug abuse patient.[facility] HospitalIn the event this information is protected by the Federal Confidentiality of Alcohol and Drug Abuse Patient Records regulations: The Federal rules restrict any use of the information to criminally investigate or prosecute any alcohol or drug abuse patient.[facility] HospitalIn the event this information is protected by the Federal Confidentiality of Alcohol and Drug Abuse Patient Records regulations: The Federal rules restrict any use of the information to criminally investigate or prosecute any alcohol or drug abuse patient.[facility] HospitalIn the event this information is protected by the Federal Confidentiality of Alcohol and Drug Abuse Patient Records regulations: The Federal rules restrict any use of the information to criminally investigate or prosecute any alcohol or drug abuse patient.[facility] HospitalIn the event this information is protected by the Federal Confidentiality of Alcohol and Drug Abuse Patient Records regulations: The Federal rules restrict any use of the information to criminally investigate or prosecute any alcohol or drug abuse patient.[facility] HospitalIn the event this information is protected by the Federal Confidentiality of Alcohol and Drug Abuse Patient Records regulations: The Federal rules restrict any use of the information to criminally investigate or prosecute any alcohol or drug abuse patient.[facility] HospitalIn the event this information is protected by the Federal Confidentiality of Alcohol and Drug Abuse Patient Records regulations: The Federal rules restrict any use of the information to criminally investigate or prosecute any alcohol or drug abuse patient.[facility] HospitalIn the event this information is protected by the Federal Confidentiality of Alcohol and Drug Abuse Patient Records regulations: The Federal rules restrict any use of the information to criminally investigate or prosecute any alcohol or drug abuse patient.[facility] HospitalIn the event this information is protected by the Federal Confidentiality of Alcohol and Drug Abuse Patient Records regulations: The Federal rules restrict any use of the information to criminally investigate or prosecute any alcohol or drug abuse patient.[facility] HospitalIn the event this information is protected by the Federal Confidentiality of Alcohol and Drug Abuse Patient Records regulations: The Federal rules restrict any use of the information to criminally investigate or prosecute any alcohol or drug abuse patient.[facility] HospitalIn the event this information is protected by the Federal Confidentiality of Alcohol and Drug Abuse Patient Records regulations: The Federal rules restrict any use of the information to criminally investigate or prosecute any alcohol or drug abuse patient.[facility] HospitalIn the event this information is protected by the Federal Confidentiality of Alcohol and Drug Abuse Patient Records regulations: The Federal rules restrict any use of the information to criminally investigate or prosecute any alcohol or drug abuse patient.[facility] HospitalIn the event this information is protected by the Federal Confidentiality of Alcohol and Drug Abuse Patient Records regulations: The Federal rules restrict any use of the information to criminally investigate or prosecute any alcohol or drug abuse patient.[facility] HospitalIn the event this information is protected by the Federal Confidentiality of Alcohol and Drug Abuse Patient Records regulations: The Federal rules restrict any use of the information to criminally investigate or prosecute any alcohol or drug abuse patient.[facility] HospitalIn the event this information is protected by the Federal Confidentiality of Alcohol and Drug Abuse Patient Records regulations: The Federal rules restrict any use of the information to criminally investigate or prosecute any alcohol or drug abuse patient.[facility] HospitalIn the event this information is protected by the Federal Confidentiality of Alcohol and Drug Abuse Patient Records regulations: The Federal rules restrict any use of the information to criminally investigate or prosecute any alcohol or drug abuse patient.[facility] HospitalIn the event this information is protected by the Federal Confidentiality of Alcohol and Drug Abuse Patient Records regulations: The Federal rules restrict any use of the information to criminally investigate or prosecute any alcohol or drug abuse patient.[facility] HospitalIn the event this information is protected by the Federal Confidentiality of Alcohol and Drug Abuse Patient Records regulations: The Federal rules restrict any use of the information to criminally investigate or prosecute any alcohol or drug abuse patient.[facility] HospitalIn the event this information is protected by the Federal Confidentiality of Alcohol and Drug Abuse Patient Records regulations: The Federal rules restrict any use of the information to criminally investigate or prosecute any alcohol or drug abuse patient.[facility] HospitalIn the event this information is protected by the Federal Confidentiality of Alcohol and Drug Abuse Patient Records regulations: The Federal rules restrict any use of the information to criminally investigate or prosecute any alcohol or drug abuse patient.[facility] HospitalIn the event this information is protected by the Federal Confidentiality of Alcohol and Drug Abuse Patient Records regulations: The Federal rules restrict any use of the information to criminally investigate or prosecute any alcohol or drug abuse patient.[facility] HospitalIn the event this information is protected by the Federal Confidentiality of Alcohol and Drug Abuse Patient Records regulations: The Federal rules restrict any use of the information to criminally investigate or prosecute any alcohol or drug abuse patient.[facility] HospitalIn the event this information is protected by the Federal Confidentiality of Alcohol and Drug Abuse Patient Records regulations: The Federal rules restrict any use of the information to criminally investigate or prosecute any alcohol or drug abuse patient.[facility] HospitalIn the event this information is protected by the Federal Confidentiality of Alcohol and Drug Abuse Patient Records regulations: The Federal rules restrict any use of the information to criminally investigate or prosecute any alcohol or drug abuse patient.[facility] HospitalIn the event this information is protected by the Federal Confidentiality of Alcohol and Drug Abuse Patient Records regulations: The Federal rules restrict any use of the information to criminally investigate or prosecute any alcohol or drug abuse patient.[facility] HospitalIn the event this information is protected by the Federal Confidentiality of Alcohol and Drug Abuse Patient Records regulations: The Federal rules restrict any use of the information to criminally investigate or prosecute any alcohol or drug abuse patient.[facility] HospitalIn the event this information is protected by the Federal Confidentiality of Alcohol and Drug Abuse Patient Records regulations: The Federal rules restrict any use of the information to criminally investigate or prosecute any alcohol or drug abuse patient.[facility] HospitalIn the event this information is protected by the Federal Confidentiality of Alcohol and Drug Abuse Patient Records regulations: The Federal rules restrict any use of the information to criminally investigate or prosecute any alcohol or drug abuse patient.[facility] HospitalIn the event this information is protected by the Federal Confidentiality of Alcohol and Drug Abuse Patient Records regulations: The Federal rules restrict any use of the information to criminally investigate or prosecute any alcohol or drug abuse patient.[facility] HospitalIn the event this information is protected by the Federal Confidentiality of Alcohol and Drug Abuse Patient Records regulations: The Federal rules restrict any use of the information to criminally investigate or prosecute any alcohol or drug abuse patient.[facility] HospitalIn the event this information is protected by the Federal Confidentiality of Alcohol and Drug Abuse Patient Records regulations: The Federal rules restrict any use of the information to criminally investigate or prosecute any alcohol or drug abuse patient.[facility] HospitalIn the event this information is protected by the Federal Confidentiality of Alcohol and Drug Abuse Patient Records regulations: The Federal rules restrict any use of the information to criminally investigate or prosecute any alcohol or drug abuse patient.[facility] HospitalIn the event this information is protected by the Federal Confidentiality of Alcohol and Drug Abuse Patient Records regulations: The Federal rules restrict any use of the information to criminally investigate or prosecute any alcohol or drug abuse patient.[facility] HospitalIn the event this information is protected by the Federal Confidentiality of Alcohol and Drug Abuse Patient Records regulations: The Federal rules restrict any use of the information to criminally investigate or prosecute any alcohol or drug abuse patient.[facility] HospitalIn the event this information is protected by the Federal Confidentiality of Alcohol and Drug Abuse Patient Records regulations: The Federal rules restrict any use of the information to criminally investigate or prosecute any alcohol or drug abuse patient.[facility] HospitalIn the event this information is protected by the Federal Confidentiality of Alcohol and Drug Abuse Patient Records regulations: The Federal rules restrict any use of the information to criminally investigate or prosecute any alcohol or drug abuse patient.[facility] HospitalIn the event this information is protected by the Federal Confidentiality of Alcohol and Drug Abuse Patient Records regulations: The Federal rules restrict any use of the information to criminally investigate or prosecute any alcohol or drug abuse patient.[facility] HospitalIn the event this information is protected by the Federal Confidentiality of Alcohol and Drug Abuse Patient Records regulations: The Federal rules restrict any use of the information to criminally investigate or prosecute any alcohol or drug abuse patient.[facility] HospitalIn the event this information is protected by the Federal Confidentiality of Alcohol and Drug Abuse Patient Records regulations: The Federal rules restrict any use of the information to criminally investigate or prosecute any alcohol or drug abuse patient.[facility] HospitalIn the event this information is protected by the Federal Confidentiality of Alcohol and Drug Abuse Patient Records regulations: The Federal rules restrict any use of the information to criminally investigate or prosecute any alcohol or drug abuse patient.[facility] HospitalIn the event this information is protected by the Federal Confidentiality of Alcohol and Drug Abuse Patient Records regulations: The Federal rules restrict any use of the information to criminally investigate or prosecute any alcohol or drug abuse patient.[facility] HospitalIn the event this information is protected by the Federal Confidentiality of Alcohol and Drug Abuse Patient Records regulations: The Federal rules restrict any use of the information to criminally investigate or prosecute any alcohol or drug abuse patient.[facility] HospitalIn the event this information is protected by the Federal Confidentiality of Alcohol and Drug Abuse Patient Records regulations: The Federal rules restrict any use of the information to criminally investigate or prosecute any alcohol or drug abuse patient.[facility] HospitalIn the event this information is protected by the Federal Confidentiality of Alcohol and Drug Abuse Patient Records regulations: The Federal rules restrict any use of the information to criminally investigate or prosecute any alcohol or drug abuse patient.[facility] HospitalIn the event this information is protected by the Federal Confidentiality of Alcohol and Drug Abuse Patient Records regulations: The Federal rules restrict any use of the information to criminally investigate or prosecute any alcohol or drug abuse patient.[facility] HospitalIn the event this information is protected by the Federal Confidentiality of Alcohol and Drug Abuse Patient Records regulations: The Federal rules restrict any use of the information to criminally investigate or prosecute any alcohol or drug abuse patient.[facility] HospitalIn the event this information is protected by the Federal Confidentiality of Alcohol and Drug Abuse Patient Records regulations: The Federal rules restrict any use of the information to criminally investigate or prosecute any alcohol or drug abuse patient.[facility] HospitalIn the event this information is protected by the Federal Confidentiality of Alcohol and Drug Abuse Patient Records regulations: The Federal rules restrict any use of the information to criminally investigate or prosecute any alcohol or drug abuse patient.[facility] HospitalIn the event this information is protected by the Federal Confidentiality of Alcohol and Drug Abuse Patient Records regulations: The Federal rules restrict any use of the information to criminally investigate or prosecute any alcohol or drug abuse patient.[facility] HospitalIn the event this information is protected by the Federal Confidentiality of Alcohol and Drug Abuse Patient Records regulations: The Federal rules restrict any use of the information to criminally investigate or prosecute any alcohol or drug abuse patient.[facility] HospitalIn the event this information is protected by the Federal Confidentiality of Alcohol and Drug Abuse Patient Records regulations: The Federal rules restrict any use of the information to criminally investigate or prosecute any alcohol or drug abuse patient.[facility] HospitalIn the event this information is protected by the Federal Confidentiality of Alcohol and Drug Abuse Patient Records regulations: The Federal rules restrict any use of the information to criminally investigate or prosecute any alcohol or drug abuse patient.[facility] HospitalIn the event this information is protected by the Federal Confidentiality of Alcohol and Drug Abuse Patient Records regulations: The Federal rules restrict any use of the information to criminally investigate or prosecute any alcohol or drug abuse patient.[facility] HospitalIn the event this information is protected by the Federal Confidentiality of Alcohol and Drug Abuse Patient Records regulations: The Federal rules restrict any use of the information to criminally investigate or prosecute any alcohol or drug abuse patient.[facility] HospitalIn the event this information is protected by the Federal Confidentiality of Alcohol and Drug Abuse Patient Records regulations: The Federal rules restrict any use of the information to criminally investigate or prosecute any alcohol or drug abuse patient.[facility] HospitalIn the event this information is protected by the Federal Confidentiality of Alcohol and Drug Abuse Patient Records regulations: The Federal rules restrict any use of the information to criminally investigate or prosecute any alcohol or drug abuse patient.[facility] HospitalIn the event this information is protected by the Federal Confidentiality of Alcohol and Drug Abuse Patient Records regulations: The Federal rules restrict any use of the information to criminally investigate or prosecute any alcohol or drug abuse patient.[facility] HospitalIn the event this information is protected by the Federal Confidentiality of Alcohol and Drug Abuse Patient Records regulations: The Federal rules restrict any use of the information to criminally investigate or prosecute any alcohol or drug abuse patient.[facility] HospitalIn the event this information is protected by the Federal Confidentiality of Alcohol and Drug Abuse Patient Records regulations: The Federal rules restrict any use of the information to criminally investigate or prosecute any alcohol or drug abuse patient.[facility] HospitalIn the event this information is protected by the Federal Confidentiality of Alcohol and Drug Abuse Patient Records regulations: The Federal rules restrict any use of the information to criminally investigate or prosecute any alcohol or drug abuse patient.[facility] HospitalIn the event this information is protected by the Federal Confidentiality of Alcohol and Drug Abuse Patient Records regulations: The Federal rules restrict any use of the information to criminally investigate or prosecute any alcohol or drug abuse patient.[facility] HospitalIn the event this information is protected by the Federal Confidentiality of Alcohol and Drug Abuse Patient Records regulations: The Federal rules restrict any use of the information to criminally investigate or prosecute any alcohol or drug abuse patient.[facility] HospitalIn the event this information is protected by the Federal Confidentiality of Alcohol and Drug Abuse Patient Records regulations: The Federal rules restrict any use of the information to criminally investigate or prosecute any alcohol or drug abuse patient.[facility] HospitalIn the event this information is protected by the Federal Confidentiality of Alcohol and Drug Abuse Patient Records regulations: The Federal rules restrict any use of the information to criminally investigate or prosecute any alcohol or drug abuse patient.[facility] HospitalIn the event this information is protected by the Federal Confidentiality of Alcohol and Drug Abuse Patient Records regulations: The Federal rules restrict any use of the information to criminally investigate or prosecute any alcohol or drug abuse patient.[facility] HospitalIn the event this information is protected by the Federal Confidentiality of Alcohol and Drug Abuse Patient Records regulations: The Federal rules restrict any use of the information to criminally investigate or prosecute any alcohol or drug abuse patient.[facility] HospitalIn the event this information is protected by the Federal Confidentiality of Alcohol and Drug Abuse Patient Records regulations: The Federal rules restrict any use of the information to criminally investigate or prosecute any alcohol or drug abuse patient.[facility] HospitalIn the event this information is protected by the Federal Confidentiality of Alcohol and Drug Abuse Patient Records regulations: The Federal rules restrict any use of the information to criminally investigate or prosecute any alcohol or drug abuse patient.[facility] HospitalIn the event this information is protected by the Federal Confidentiality of Alcohol and Drug Abuse Patient Records regulations: The Federal rules restrict any use of the information to criminally investigate or prosecute any alcohol or drug abuse patient.[facility] HospitalIn the event this information is protected by the Federal Confidentiality of Alcohol and Drug Abuse Patient Records regulations: The Federal rules restrict any use of the information to criminally investigate or prosecute any alcohol or drug abuse patient.[facility] HospitalIn the event this information is protected by the Federal Confidentiality of Alcohol and Drug Abuse Patient Records regulations: The Federal rules restrict any use of the information to criminally investigate or prosecute any alcohol or drug abuse patient.[facility] HospitalIn the event this information is protected by the Federal Confidentiality of Alcohol and Drug Abuse Patient Records regulations: The Federal rules restrict any use of the information to criminally investigate or prosecute any alcohol or drug abuse patient.[facility] HospitalIn the event this information is protected by the Federal Confidentiality of Alcohol and Drug Abuse Patient Records regulations: The Federal rules restrict any use of the information to criminally investigate or prosecute any alcohol or drug abuse patient.[facility] HospitalIn the event this information is protected by the Federal Confidentiality of Alcohol and Drug Abuse Patient Records regulations: The Federal rules restrict any use of the information to criminally investigate or prosecute any alcohol or drug abuse patient.[facility] HospitalIn the event this information is protected by the Federal Confidentiality of Alcohol and Drug Abuse Patient Records regulations: The Federal rules restrict any use of the information to criminally investigate or prosecute any alcohol or drug abuse patient.[facility] HospitalIn the event this information is protected by the Federal Confidentiality of Alcohol and Drug Abuse Patient Records regulations: The Federal rules restrict any use of the information to criminally investigate or prosecute any alcohol or drug abuse patient.[facility] HospitalIn the event this information is protected by the Federal Confidentiality of Alcohol and Drug Abuse Patient Records regulations: The Federal rules restrict any use of the information to criminally investigate or prosecute any alcohol or drug abuse patient.[facility] HospitalIn the event this information is protected by the Federal Confidentiality of Alcohol and Drug Abuse Patient Records regulations: The Federal rules restrict any use of the information to criminally investigate or prosecute any alcohol or drug abuse patient.[facility] HospitalIn the event this information is protected by the Federal Confidentiality of Alcohol and Drug Abuse Patient Records regulations: The Federal rules restrict any use of the information to criminally investigate or prosecute any alcohol or drug abuse patient.[facility] HospitalIn the event this information is protected by the Federal Confidentiality of Alcohol and Drug Abuse Patient Records regulations: The Federal rules restrict any use of the information to criminally investigate or prosecute any alcohol or drug abuse patient.[facility] HospitalIn the event this information is protected by the Federal Confidentiality of Alcohol and Drug Abuse Patient Records regulations: The Federal rules restrict any use of the information to criminally investigate or prosecute any alcohol or drug abuse patient.[facility] HospitalIn the event this information is protected by the Federal Confidentiality of Alcohol and Drug Abuse Patient Records regulations: The Federal rules restrict any use of the information to criminally investigate or prosecute any alcohol or drug abuse patient.[facility] Reason for Visit (unrecogniz ed section [...] outreach Reason Comments Ambulatory Social Work Community [facility] e Reason Onset Date Comments Refill Request [...] Comments Population Health Navigation Outreach [facility]/03/2025 [facility] Reason Onset Date Comments requesting [...] Care Teams (unrecognized sec tion and content) Emts Relationship Specialty Start Date End Date Ricci Cole MD [address] [place], [place] [id number] PCP - General Family Practice 09/19/16 Toña Sawyer Endocrinology 08/11/19 Sho Hebert, certified medical dosimetristIt Technical Support Specialist 10/22/21 Emts Relationship Specialty Start Date End Date Ricci Cole MD [address] [place], [place] [address] PCP - General Family Practice 09/19/16 Toña Sawyer Endocrinology 08/11/19 Sho Hebert, certified medical dosimetristIt Technical Support Specialist 10/22/21 Emts Relationship Specialty Start Date End Date Ricci Cole MD [address] [place], [place] [address] PCP - General Family Practice 09/19/16 Toña Sawyer Endocrinology 08/11/19 Sho Hebert, certified medical dosimetristIt Technical Support Specialist 10/22/21 Emts Relationship Specialty Start Date End Date Ricci Cole MD [address] [place], [place] [address]481 PCP - General Family Practice 09/19/16 Toña Sawyer Endocrinology 08/11/19 Sho Hebert certified medical dosimetristIt Technical Support Specialist 10/22/21 Emts Relationship Specialty Start Date End Date Rcici Cole MD [address] [place], [place] [address] PCP - General Family Practice 09/19/16 Duke Sawyerpana Endocrinology 08/11/19 Sho Hebert certified medical dosimetristIt Technical Support Specialist 10/22/21 Emts Relationship Specialty Start Date End Date Ricci Cole MD [address] [place] [address] PCP - General Family Practice 09/19/16 Duke Sawyerpana Endocrinology 08/11/19 Sho Hebert, certified medical dosimetristIt Technical Support Specialist 10/22/21 Emts Relationship Specialty Start Date End Date Ricci Cole MD [address] [place] [address] PCP - General Family Practice 09/19/16 Duke Sawyerpana Endocrinology 08/11/19 Sho Hebert certified medical dosimetristIt Technical Support Specialist 10/22/21 Emts Relationship Specialty Start Date End Date Ricci Cole MD [address] [place], [place] [address] PCP - General Family Practice 09/19/16 Duke Sawyerpana Endocrinology 08/11/19 Sho Hebert, certified medical dosimetristIt Technical Support Specialist 10/22/21 Emts Relationship Specialty Start Date End Date Ricci Cole MD [address] [place], [place] [id number] PCP - General Family Practice 09/19/16 Digna Toña Endocrinology 08/11/19 Sho Hebert, NITIN [address] [place] [address] It Technical Support Specialist 10/22/21 Emts Relationship Specialty Start Date End Date Ricci Cole MD [address] [place], [place] [address] PCP - General Family Practice 09/19/16 Digna Toña Endocrinology 08/11/19 Sho Hebert, NITIN [address] [place] [address] It Technical Support Specialist 10/22/21 Emts Relationship Specialty Start Date End Date Ricci Cole MD [address] [place], [place] [address] PCP - General Family Practice 09/19/16 Digna Toña Endocrinology 08/11/19 Sho Hebert RN [address] [place], [place] [id number] It Technical Support Specialist 10/22/21 Emts Relationship Specialty Start Date End Date Ricci Cole MD [address] [place] [address] PCP - General Family Practice 09/19/16 Toña Sawyer Endocrinology 08/11/19 Sho Hebert RN [address] [place], [place] [id number] It Technical Support Specialist 10/22/21 Emts Relationship Specialty Start Date End Date Ricci Cole MD [address] [place] [address] PCP - General Family Practice 09/19/16 Digna Toña Endocrinology 08/11/19 Sho Hebert RN [address] [place], [place] [id number] It Technical Support Specialist 10/22/21 Emts Relationship Specialty Start Date End Date Ricci Cole MD [address] [place] [address] PCP - General Family Practice 09/19/16 Digna Toña Endocrinology 08/11/19 Sho Hebert RN [address] [place], [place] [id number] It Technical Support Specialist 10/22/21 Emts Relationship Specialty Start Date End Date Ricci Cole MD [address] [place] [address] PCP - General Family Practice 09/19/16 Toña Sawyer Endocrinology 08/11/19 Sho Hebert RN [address] [facility], [place] [id number] It Technical Support Specialist 10/22/21 Emts Relationship Specialty Start Date End Date Ricci Cole MD [address] [place] [address] PCP - General Family Practice 09/19/16 Toña Sawyer Endocrinology 08/11/19 Sho Hebert RN [address] [facility], [place] [id number] It Technical Support Specialist 10/22/21 Emts Relationship Specialty Start Date End Date Ricci Cole MD [address] [place] [address] PCP - General Family Practice 09/19/16 Toña Sawyer Endocrinology 08/11/19 Sho Hebert RN [address] [facility] [place] [address] It Technical Support Specialist 10/22/21 Emts Relationship Specialty Start Date End Date Ricci Cole MD [address] [place] [address] PCP - General Family Practice 09/19/16 Toña Sawyer Endocrinology 08/11/19 Sho Hebert RN [address] [facility], [place] [id number] It Technical Support Specialist 10/22/21 Emts Relationship Specialty Start Date End Date Ricci Cole MD [address] [place] [address] PCP - General Family Practice 09/19/16 Toña Sawyer Endocrinology 08/11/19 Sho Hebert RN [address] [place], [place] [id number] It Technical Support Specialist 10/22/21 Emts Relationship Specialty Start Date End Date Ricci Cole MD [address] [place], [place] [address]49321 PCP - General Family Practice 09/19/16 Toña Sawyer MD Endocrinology 08/11/19 Sho Hebert RN [address] [place], [place] [id number] It Technical Support Specialist 10/22/21 Emts Relationship Specialty Start Date End Date Ricci Cole MD [address] [place] [address] PCP - General Family Practice 09/19/16 Toña Sawyer MD Endocrinology 08/11/19 Sho Hebert RN [address] [facility], [place] [id number] It Technical Support Specialist 10/22/21 Emts Relationship Specialty Start Date End Date Ricci Cole MD [address] [place], [place] [address]691 PCP - General Family Practice 09/19/16 Toña Sawyer MD Endocrinology 08/11/19 Sho Hebert RN [address] [place], [place] [id number] It Technical Support Specialist 10/22/21 Emts Relationship Specialty Start Date End Date Ricci Cole MD [address] [place], [place] 495281 PCP - General Family Practice 09/19/16 Toña Sawyer MD Endocrinology 08/11/19 Sho Hebert RN [address] [place], [place] [id number] It Technical Support Specialist 10/22/21 Emts Relationship Specialty Start Date End Date Ricci Cole MD [address] [place], [place] 993291 PCP - General Family Medicine 09/19/16 Toña Sawyer MD Endocrinology 08/11/19 Sho Hebert RN [address] [place], [place] [id number] It Technical Support Specialist 10/22/21 Emts Relationship Specialty Start Date End Date Ricci Cole MD [address] [place] [address] PCP - General Family Medicine 09/19/16 Toña Sawyer MD Endocrinology 08/11/19 Sho Hebert RN [address] [place], [place] [id number] It Technical Support Specialist 10/22/21 Emts Relationship Specialty Start Date End Date Ricci Cole MD [address] [place], [place] [id number] PCP - General Family Medicine 09/19/16 Toña Sawyer MD Endocrinology 08/11/19 Sho Hebert RN [address] [place] [address] It Technical Support Specialist 10/22/21 Dylan Mac DO [address] [id number] Automation Architect Gastroenterology 06/19/22 Emts Relationship Specialty Start Date End Date Ricci Cole MD [address] [place], [place] 945741 PCP - General Family Medicine 09/19/16 Toña Sawyer MD Endocrinology 08/11/19 Sho Hebert RN [address] [place] [address] It Technical Support Specialist 10/22/21 Dylan Mac DO [address]LVARO[address] R [address] [address] Automation Architect Gastroenterology 06/19/22 Emts Relationship Specialty Start Date End Date Ricci Cole MD [address] [place], [place] 450561 PCP - General Family Medicine 09/19/16 Toña Sawyer MD Endocrinology 08/11/19 Sho Hebert RN [address] [place] [address] It Technical Support Specialist 10/22/21 Dylan Mac DO [address] [id number] Automation Architect Gastroenterology 06/19/22 Emts Relationship Specialty Start Date End Date Ricci Cole MD [address] [place], [place] [id number] PCP - General Family Medicine 09/19/16 Toña Sawyer MD Endocrinology 08/11/19 Dylan Mac, DO [address] [place] [address] Automation Architect Gastroenterology 06/19/22 Herson Ashford RN [address] [place], [place] [id number] It Technical Support Specialist [facility] 10/22/21 Emts Relationship Specialty Start Date End Date Ricci Cole MD [address] [place], [place] 135501 PCP - General Family Medicine 09/19/16 Toña Sawyer MD Endocrinology 08/11/19 Dylan Mac, DO [address] [place] [address] Automation Architect Gastroenterology 06/19/22 Herson Ashford RN [address] [place] [address] It Technical Support Specialist [facility] 10/22/21 Emts Relationship Specialty Start Date End Date Ricci Cole MD [address] [place] [address] PCP - General Family Medicine 09/19/16 Toña Sawyer MD [address] [place] [address] Endocrinology 08/11/19 Dylan Mac, [address] [place] [address] Automation Architect Gastroenterology 06/19/22 Herson Ashford RN [address] [place] [address] It Technical Support Specialist Family Medicine 10/22/21 Emts Relationship Specialty Start Date End Date Ricci Cole MD [address] [facility], [place] [id number] PCP - General Family Medicine 09/19/16 Toña Sawyer MD [address] [place] [address] Endocrinology 08/11/19 FriendDylan, DO [address] [facility] [address] [place] [address] Automation Architect Gastroenterology 06/19/22 Herson Ashford, NITIN [address] [place] [address] It Technical Support Specialist Family Medicine 10/22/21 Emts Relationship Specialty Start Date End Date Ricci Cole MD [address] [place] [address] PCP - General Family Medicine 09/19/16 Toña Sawyer MD [address] [place] [address] Endocrinology 08/11/19 FriendDylan, DO [address] [facility] [address] [place] [address] Automation Architect Gastroenterology 06/19/22 Herson Ashford, NTIIN [address] [place] [address] It Technical Support Specialist Family Medicine 10/22/21 Emts Relationship Specialty Start Date End Date Ricci Cole MD [address] [facility], [place] [id number] PCP - General Family Medicine 09/19/16 Toña Sawyer MD [address] [place] [address] Endocrinology 08/11/19 Dylan Mca, DO [address] [facility] [address] [place] [address] Automation Architect Gastroenterology 06/19/22 Herson Ashford, NITIN [address] [place], [place] [id number] It Technical Support Specialist Family Medicine 06/26/22 Emts Relationship Specialty Start Date End Date Ricci Cole MD [address] [place] [address] PCP - General Family Medicine 09/19/16 Toña Sawyer MD [address] [place] [address] Endocrinology 08/11/19 Dylan Mac, DO [address] [place] [address] Automation Architect Gastroenterology 06/19/22 Herson Ashford RN [address] [place], [place] [id number] It Technical Support Specialist Family [facility] [place] 06/26/22 Emts Relationship Specialty Start Date End Date Ricci Cole MD [address] [place] [address] PCP - General Family Medicine 09/19/16 Toña Sawyer MD [address] [place] [address] Endocrinology 08/11/19 Dylan Mac, DO [address] [facility] [address] [place] [address] Automation Architect Gastroenterology 06/19/22 Herson Ashford, NITIN [address] [place], [place] 3562431 It Technical Support Specialist Family Medicine 06/26/22 Emts Relationship Specialty Start Date End Date Ricci Cole MD [address] [place] [address] PCP - General Family Medicine 09/19/16 Toña Sawyer MD [address] [place] [address] Endocrinology 08/11/19 Dylan Mac, [address] [place] [address] Automation Architect Gastroenterology 06/19/22 Herson Ashford RN [address] [place] [address] It Technical Support Specialist Family Medicine 06/26/22 Emts Relationship Specialty Start Date End Date Ricci Cole MD [address] [place] [address] PCP - General Family Medicine 09/19/16 Toña Sawyer MD [address] [place] [address] Endocrinology 08/11/19 Dylan Mac DO [address] [place] [address] Automation Architect Gastroenterology 06/19/22 Herson Ashford RN [address] [place] [address] It Technical Support Specialist Family Medicine 06/26/22 Emts Relationship Specialty Start Date End Date Ricci Cole MD [address] [place] [address] PCP - General Family Medicine 09/19/16 Toña Sawyer MD [address] [place] [address] Endocrinology 08/11/19 Dylan Mac DO [address] [place] [address] Automation Architect Gastroenterology 06/19/22 Herson Ashford RN [address] [place] [address] It Technical Support Specialist [facility] 06/26/22 Emts Relationship Specialty Start Date End Date Ricci Cole MD [address] [place], [place] 162541 PCP - General Family Medicine 09/19/16 Toña Sawyer MD [address] [place], [place] [address] Endocrinology 08/11/19 Dylan Mac DO [address] [place] [address] Automation Architect Gastroenterology 06/19/22 Herson Ashford RN [address] [place] [address] It Technical Support Specialist [facility] 06/26/22 Team Status: Active Member Role Status Dates Dr. Ricci Cole MD Family Provider Active Dr. Ricci Cole MD Primary Care Provider Active Team Status: Inactive Member Role Status Dates Dr. Ricci Cole MD Primary Care Provider Active Dr. Barrett Powell DO Emergency Provider Active Emts Relationship Specialty Start Date End Date Ricci Cole MD [address] [place], [place] [id number] PCP - General Family Medicine 09/19/16 Toña Sawyer MD [address] [place] [address] Endocrinology 08/11/19 Dylan Mac DO [address] [address] Automation Architect Gastroenterology 06/19/22 Herson Ashford RN [address] [place] [address] It Technical Support Specialist Family Medicine 06/26/22 Emts Relationship Specialty Start Date End Date Ricci Cole MD [address] [place] [address] PCP - General Family Medicine 09/19/16 Toña Sawyer MD [address] [place] [address] Endocrinology 08/11/19 Dylan Mac, DO [address] [place] [address] Automation Architect Gastroenterology 06/19/22 Herson Ashford RN [address] [place], [place] [id number] It Technical Support Specialist Family Medicine 06/26/22 Emts Relationship Specialty Start Date End Date Ricci Cole MD [address] [place] [address] PCP - General Family Medicine 09/19/16 Toña Sawyer MD [address] [place] [address] Endocrinology 08/11/19 Dylan Mac, DO [address] [facility] [address] [place] [address] Automation Architect Gastroenterology 06/19/22 Herson Ashford RN [address] [place], [place] [id number] It Technical Support Specialist Family Medicine 06/26/22 Emts Relationship Specialty Start Date End Date Ricci Cole MD [address] [place] [address] PCP - General Family Medicine 09/19/16 Toña Sawyer MD [address] [place] [address] Endocrinology 08/11/19 Dylan Mac DO [address] [place] [address] Automation Architect Gastroenterology 06/19/22 Herson Ashford RN [address] [place] [address] It Technical Support Specialist [facility] 06/26/22 Emts Relationship Specialty Start Date End Date Ricci Cole MD [address] [place] [address] PCP - General Family Medicine 09/19/16 Toña Sawyer MD [address] [place] [address] Endocrinology 08/11/19 Dylan Mac DO [address] [address] Automation Architect Gastroenterology 06/19/22 Herson Ashford RN [address] [place] [address] It Technical Support Specialist [facility] 06/26/22 Emts Relationship Specialty Start Date End Date Ricci Cole MD [address] [place] [address] PCP - General Family Medicine 09/19/16 Toña Sawyer MD [address] [place] [address] Endocrinology 08/11/19 Dylan Mac DO [address] [address] Automation Architect Gastroenterology 06/19/22 Herson Ashford RN [address] [place] [address] It Technical Support Specialist Family Medicine 06/26/22 Emts Relationship Specialty Start Date End Date Ricci Cole MD [address] [facility], [place] [id number] PCP - General Family Medicine 09/19/16 Toña Sawyer MD [address] [place] [address] Endocrinology 08/11/19 Dylan Mac DO [address], [place] [id number] Automation Architect Gastroenterology 06/19/22 Herson Ashford, NITIN [address] [place] [address] It Technical Support Specialist Family Medicine 06/26/22 Emts Relationship Specialty Start Date End Date Ricci Cole MD [address] [place] [address] PCP - General Family Medicine 09/19/16 Toña Sawyer MD [address] [place] [address] Endocrinology 08/11/19 Dylan Mac DO [address] [place] [address] Automation Architect Gastroenterology 06/19/22 Herson Ashford RN [address] [place] [address] It Technical Support Specialist Family Medicine 06/26/22 Emts Relationship Specialty Start Date End Date Ricci Cole MD [address] [place], [place] 799771 PCP - General Family Medicine 09/19/16 Toña Sawyer MD [address] [place] [address] Endocrinology 08/11/19 Dylan Mac DO [address] [place] [address] Automation Architect Gastroenterology 06/19/22 Herson Ashford RN [address] [place] [address] It Technical Support Specialist Family Medicine 06/26/22 Emts Relationship Specialty Start Date End Date Ricci Cole MD [address] [place] [address] PCP - General Family Medicine 09/19/16 Toña Sawyer MD [address] [place] [address] Endocrinology 08/11/19 Dylan Mac DO [address] [place] [id number] Automation Architect Gastroenterology 06/19/22 Herson Ashford RN [address] [place] [address] It Technical Support Specialist Family Medicine 06/26/22 Emts Relationship Specialty Start Date End Date Ricci Cole MD [address] [place], [place] 289721 PCP - General Family Medicine 09/19/16 Toña Sawyer MD [address] [place] [id number] Endocrinology 08/11/19 Dylan Mac DO [address] [place] [address], [place] [id number] Automation Architect Gastroenterology 06/19/22 Herson Ashford RN [address] [place], [place] [id number] It Technical Support Specialist [facility] 06/26/22 Emts Relationship Specialty Start Date End Date Ricci Cole MD [address] [facility], [place] [id number] PCP - General Family Medicine 09/19/16 Toña Sawyer MD [address] [place] [address] Endocrinology 08/11/19 Dylan Mca DO [address] [address] Automation Architect Gastroenterology 06/19/22 Herson Ashford RN [address] [place] [address] It Technical Support Specialist [facility] 06/26/22 Emts Relationship Specialty Start Date End Date Ricci Cole MD [address] [place], [place] 380231 PCP - General Family Medicine 09/19/16 Toña Sawyer MD [address] [facility] [place] [id number] Endocrinology 08/11/19 Dylan Mac DO [address] [id number] Automation Architect Gastroenterology 06/19/22 Herson Ashford RN [address] [place] [address] It Technical Support Specialist Family Medicine 06/26/22 Emts Relationship Specialty Start Date End Date Ricci Cole MD [address] [place], [place] 036041 PCP - General Family Medicine 09/19/16 Toña Sawyer MD [address] [place] [address] Endocrinology 08/11/19 Dylan Mac DO [address] [place] [address] [id number] Automation Architect Gastroenterology 06/19/22 Herson Ashford, NITIN [address] [place] [address] It Technical Support Specialist Family Medicine 06/26/22 Emts Relationship Specialty Start Date End Date Ricci Cole MD [address] [place] [address] PCP - General Family Medicine 09/19/16 Toña Sawyer MD [address] [place] [address] Endocrinology 08/11/19 Dylan Mac DO [address] [place] [address], [place] [id number] Automation Architect Gastroenterology 06/19/22 Herson Ashford RN [address] [place] [address] It Technical Support Specialist Family Medicine 06/26/22 Emts Relationship Specialty Start Date End Date Ricci Cole MD [address] [place], [place] 795651 PCP - General Family Medicine 09/19/16 Toña Sawyer MD [address] [place] [address] Endocrinology 08/11/19 Dylan Mac DO [address], [place] [id number] Automation Architect Gastroenterology 06/19/22 Herson Ashford RN [address] [place] [address] It Technical Support Specialist Family Medicine 06/26/22 Emts Relationship Specialty Start Date End Date Ricci Cole MD [address] [place] [address] PCP - General Family Medicine 09/19/16 Toña Sawyer MD [address] [place] [address] Endocrinology 08/11/19 Dylan Mac DO [address] [place] [address] Automation Architect Gastroenterology 06/19/22 Herson Ashford RN [address] [place] [address] It Technical Support Specialist Family Medicine 06/26/22 Emts Relationship Specialty Start Date End Date Ricci Cole MD [address] [place], [place] 197891 PCP - General Family Medicine 09/19/16 Toña Sawyer MD [address] [place] [address] Endocrinology 08/11/19 Dylan Mac DO [address] R [address] [place], [place] [id number] Automation Architect Gastroenterology 06/19/22 Herson Ashford RN [address] [place], [place] [id number] It Technical Support Specialist [facility] 06/26/22 Emts Relationship Specialty Start Date End Date Ricci Cole MD [address] [place] [address] PCP - General Family Medicine 09/19/16 Toña Sawyer MD [address] [place] [address] Endocrinology 08/11/19 Dylan Mac DO [address] [place] [address], [place] [id number] Automation Architect Gastroenterology 06/19/22 Herson Ashford RN [address] [place] [address] It Technical Support Specialist [facility] 06/26/22 Emts Relationship Specialty Start Date End Date Ricci Cole MD [address] [place] [address] PCP - General Family Medicine 09/19/16 Toña Sawyer MD [address] [facility], [place] [id number] Endocrinology 08/11/19 Dylan Mac DO [address] [place], [place] [id number] Automation Architect Gastroenterology 06/19/22 Herson Ashford RN [address] [place] [address] It Technical Support Specialist Family Medicine 06/26/22 Team Status: Active Member [...] Sho Yi , DO Attending Provider Active Emts Relationship Specialty Start Date End Date Ricci Cole MD [address] [place], [place] [id number] PCP - General Family Medicine 09/19/16 Toña Sawyer MD [address] [place], [place] 56296691 Endocrinology 08/11/19 Dylan Mac DO [facility] REGAN DICKSON [address] [address] Automation Architect Gastroenterology 06/19/22 Herson Ashford, RN [address] [place] [id number] It Technical Support Specialist Family Medicine 06/26/22 Emts Relationship Specialty Start Date End Date Ricci Cole MD [address] [place], [place] 55033691 PCP - General Family Medicine 09/19/16 Toña Sawyer MD [address] [place], [place] 57762691 Endocrinology 08/11/19 Dylan Mac DO [address] AV[address] R MEJIA [address] [place] [address], [place] [id number] Automation Architect Gastroenterology 06/19/22 Herson Ashford RN [address] [place] [id number] It Technical Support Specialist Family Medicine 06/26/22 Emts Relationship Specialty Start Date End Date Ricci Cole MD [address] [place], [place] 793381 PCP - General Family Medicine 09/19/16 Toña Sawyer MD [address] [place], [place] 33243691 Endocrinology 08/11/19 Dylan Mac DO [address] [place] [address], [place] [id number] Automation Architect Gastroenterology 06/19/22 Herson Ashford RN [address] [place] [id number] It Technical Support Specialist Family Medicine 06/26/22 Emts Relationship Specialty Start Date End Date Ricci Cole MD [address] [place], [place] 257541 PCP - General Family Medicine 09/19/16 Toña Sawyer MD [address] [place], [place] 61858691 Endocrinology 08/11/19 Dylan Mac DO [address] REG[address] AVJose R [address] [id number] Automation Architect Gastroenterology 06/19/22 Herson Ashford RN [address] [place], [place] [id number] It Technical Support Specialist Family Medicine 06/26/22 Emts Relationship Specialty Start Date End Date Ricci Cole MD [address] [place] [address] PCP - General Family Medicine 09/19/16 Toña Sawyer MD [address] [place] [address] Endocrinology 08/11/19 Dylan Mac DO [address] [place] [address] [id number] Automation Architect Gastroenterology 06/19/22 Herson Ashford RN [address] [place] [address] It Technical Support Specialist Family [facility] [place] 06/26/22 Emts Relationship Specialty Start Date End Date Ricci Cole MD [address] [place] [address] PCP - General Family Medicine 09/19/16 Toña Sawyer MD [address] [place] [address] Endocrinology 08/11/19 Dylan Mac DO [address] [place], [place] 381151 Automation Architect Gastroenterology 06/19/22 Herson Ashford RN [address] [place] [address] It Technical Support Specialist Family Medicine 06/26/22 Emts Relationship Specialty Start Date End Date Ricci Cole MD [address] [place] [address] PCP - General Family Medicine 09/19/16 Toña Sawyer MD [address] [place] [address] Endocrinology 08/11/19 Dylan Mac DO [address] [id number] Automation Architect Gastroenterology 06/19/22 Herson Ashford RN [address] [place] [id number] It Technical Support Specialist Family Medicine 06/26/22 Emts Relationship Specialty Start Date End Date Ricci Cole MD [address] [place] [address] PCP - General Family Medicine 09/19/16 Toña Sawyer MD [address] [place] [address] Endocrinology 08/11/19 Dylan Mac DO [address] [id number] Automation Architect Gastroenterology 06/19/22 Herson Ashford RN [address] [place] [address] It Technical Support Specialist Family Medicine 06/26/22 Emts Relationship Specialty Start Date End Date Ricci Cole MD [address] [place], [place] [id number] PCP - General Family Medicine 09/19/16 Toña Sawyer MD [address] [place] [address] Endocrinology 08/11/19 Dylan Mac DO [address] AV[address] [place], [place] 178371 Automation Architect Gastroenterology 06/19/22 Herson Ashford RN [address] [place] [address] It Technical Support Specialist Family Medicine 06/26/22 Emts Relationship Specialty Start Date End Date Ricci Cole MD [address] [place] [address] PCP - General Family Medicine 09/19/16 Toña Sawyer MD [address] [place] [address] Endocrinology 08/11/19 Dylan Mac DO [address] [place] [address] [id number] Automation Architect Gastroenterology 06/19/22 Herson Ashford RN [address] [place] [id number] It Technical Support Specialist Family Medicine 06/26/22 Emts Relationship Specialty Start Date End Date Ricci Cole MD [address] [place], [place] 148711 PCP - General Family Medicine 09/19/16 Toña Sawyer MD [address] [place], [place] 84570691 Endocrinology 08/11/19 Dylan Mac DO [address] R [address] [place], [place] [phone] Automation Architect Gastroenterology 06/19/22 Herson Ashford RN [address] [place], [place] [id number] It Technical Support Specialist Family Medicine 06/26/22 Emts Relationship Specialty Start Date End Date Ricci Cole MD [address] [place] [address] PCP - General Family Medicine 09/19/16 Toña Sawyer MD [address] [place] [address] Endocrinology 08/11/19 Dylan Mac DO [address] [place] [address] Automation Architect Gastroenterology 06/19/22 Herson Ashford RN [address] [place] [address] It Technical Support Specialist Family Medicine 06/26/22 Emts Relationship Specialty Start Date End Date Ricci Cole MD [address] [place] [address] PCP - General Family Medicine 09/19/16 Toña Sawyer MD [address] [place] [address] Endocrinology 08/11/19 Dylan Mac DO [address] [place] [address] Automation Architect Gastroenterology 06/19/22 Herson Ashford RN [address] [place] [address] It Technical Support Specialist Family Medicine 06/26/22 Emts Relationship Specialty Start Date End Date Ricci Cole MD [address] [place] [address] PCP - General Family Medicine 09/19/16 Toña Sawyer MD [address] [place] [address] Endocrinology 08/11/19 Dylan Mac DO [address] [address] Automation Architect Gastroenterology 06/19/22 Herson Ashford RN [address] [place] [address] It Technical Support Specialist Family Medicine 06/26/22 Emts Relationship Specialty Start Date End Date Ricci Cole MD [address] [place] [address] PCP - General Family Medicine 09/19/16 Toña Sawyer MD [address] [place] [address] Endocrinology 08/11/19 Dylan Mac DO [address] [facility] [address] [address] Automation Architect Gastroenterology 06/19/22 Herson Ashford RN [address] [place] [address] It Technical Support Specialist Family Medicine 06/26/22 Emts Relationship Specialty Start Date End Date Ricci Cole MD [address] [place], [place] [id number] PCP - General Family Medicine 09/19/16 Toña Sawyer MD [address] [place] [address] Endocrinology 08/11/19 Dylan Mac DO [address] [place] [address] Automation Architect Gastroenterology 06/19/22 Herson Ashford RN [address] [place] [address] It Technical Support Specialist Family Medicine 06/26/22 Emts Relationship Specialty Start Date End Date Ricci Cole MD [address] [place] [address] PCP - General Family Medicine 09/19/16 Toña Sawyer MD [address] [place] [address] Endocrinology 08/11/19 Dylan Mac DO [address] [place] [address] [id number] Automation Architect Gastroenterology 06/19/22 Herson Ashford RN [address] [place] [address] It Technical Support Specialist Family Medicine 06/26/22 Emts Relationship Specialty Start Date End Date Ricci Cole MD [address] [place] [address] PCP - General Family Medicine 09/19/16 Toña Sawyer MD [address] [place], [place] 503721 Endocrinology 08/11/19 Dylan Mac DO [address] REG[address] AVJose R MEJIA [address] [place] [address] [phone] Automation Architect Gastroenterology 06/19/22 Herson Ashford, RN [address] [place] [address] It Technical Support Specialist Family Medicine 06/26/22 Emts Relationship Specialty Start Date End Date Ricci Cole MD [address] [place], [place] 44123691 PCP - General Family Medicine 09/19/16 Toña Sawyer MD [address] [place], [place] 265531 Endocrinology 08/11/19 Jacqui Etienne [address] [place], [place] 686361 It Technical Support Specialist Internal Medicine 01/04/21 Emts Relationship Specialty Start Date End Date Ricci Cole MD [address] [place], [place] 603561 PCP - General Family Medicine 09/19/16 Toña Sawyer MD [address] [place], [place] 714341 Endocrinology 08/11/19 Emts Relationship Specialty Start Date End Date Ricci Cole MD [address] [place], [place] 728551 PCP - General Family Medicine 09/19/16 Toña Sawyer MD [address] [place], [place] 67556691 Endocrinology 08/11/19 Dylan Mac DO [facility] REGAN FORMAN [address] [phone] Automation Architect Gastroenterology 06/19/22 Herson Ashford RN [address] [place], [place] 4697931 It Technical Support Specialist Family Medicine 06/26/22 Emts Relationship Specialty Start Date End Date Ricci Cole MD [address] [place], [place] 394781 PCP - General Family Medicine 09/19/16 Toña Sawyer MD [address] [place] [address] Endocrinology 08/11/19 Dylan Mac DO [address] [place] [address] Automation Architect Gastroenterology 06/19/22 Herson Ashford RN [address] [place] [address] It Technical Support Specialist Family Medicine 06/26/22 Emts Relationship Specialty Start Date End Date Ricci Cole MD [address] [place] [address] PCP - General Family Medicine 09/19/16 Toña Sawyer MD [address] [place] [address] Endocrinology 08/11/19 Dylan Mac DO [address] [place] [address] Automation Architect Gastroenterology 06/19/22 Herson Ashford RN [address] [place] [address] It Technical Support Specialist Family Medicine 06/26/22 Emts Relationship Specialty Start Date End Date Ricci Cole MD [address] [place] [address] PCP - General Family Medicine 09/19/16 Toña Sawyer MD [address] [facility] [address] Endocrinology 08/11/19 Dylan Mac DO [address] [place] [address] Automation Architect Gastroenterology 06/19/22 Nanci Huber APRN.NEUROPHYSIOLOGICAL TECHNICIAN [address] [facility] [place] [address] Brass Molder Family Medicine 08/02/24 Smiley Melo APRN.NEUROPHYSIOLOGICAL TECHNICIAN [address] [place] [address] Brass Molder Family [facility] [place] 08/02/24 Emts Relationship Specialty Start Date End Date Ricci Cole MD [address] [place] [address] PCP - General Family Medicine 09/19/16 Toña Sawyer MD [address] [place] [address] Endocrinology 08/11/19 Dylan Mac DO [address] [place], [place] 815841 Automation Architect Gastroenterology 06/19/22 Nanci Huber APRN.NEUROPHYSIOLOGICAL TECHNICIAN [address] [facility] [address] [facility] 08/02/24 Smiley Melo PROCESS DESIGN ENGINEER.NEUROPHYSIOLOGICAL TECHNICIAN [address] [place] 631981 [facility] 08/02/24 Emts Relationship Specialty Start Date End Date Ricci Cole MD [address] [place], [place] 387261 PCP - General Family Medicine 09/19/16 Toña Sawyer MD [address] [place] [address] Endocrinology 08/11/19 Dylan Mac DO [address] [place] [address] [id number] Automation Architect Gastroenterology 06/19/22 Nanci Huber APRN.NEUROPHYSIOLOGICAL TECHNICIAN [address] [place] [address] [facility] 08/02/24 Smiley Melo PROCESS DESIGN ENGINEER.NEUROPHYSIOLOGICAL TECHNICIAN [address] [place] [address] [facility] 08/02/24 Emts Relationship Specialty Start Date End Date Ricci Cole MD [address] [place], [place] 669711 PCP - General Family Medicine 09/19/16 Toña Sawyer MD [address] [place] [address] Endocrinology 08/11/19 Dylan Mac DO [address] [place], [place] 816221 Automation Architect Gastroenterology 06/19/22 Nanci Huber APRN.NEUROPHYSIOLOGICAL TECHNICIAN [address] [place] [address] Brass Molder Family Medicine 08/02/24 Smiley Melo APRN.NEUROPHYSIOLOGICAL TECHNICIAN [address] [facility] [address] Brass Molder Family Medicine 08/02/24 Emts Relationship Specialty Start Date End Date Ricci Cole MD [address] [facility] [address] PCP - General Family Medicine 09/19/16 Toña Sawyer MD [address] [facility] [address] Endocrinology 08/11/19 Dylan Mac DO [address] [facility] [address] [place] [address] Automation Architect Gastroenterology 06/19/22 Nanci Huber APRN.NEUROPHYSIOLOGICAL TECHNICIAN [address] [facility] [place] [address] Brass Molder Family Medicine 08/02/24 Smiley Melo APRN.NEUROPHYSIOLOGICAL TECHNICIAN [address] [facility] [address] Brass Molder Family Medicine 08/02/24 Emts Relationship Specialty Start Date End Date Ricci Cole MD [address] [facility] [address] PCP - General Family Medicine 09/19/16 Toña Sawyer MD [address] [facility] [place] [address] Endocrinology 08/11/19 Dylan Mac DO [address] [address] Automation Architect Gastroenterology 06/19/22 Nanci Huber APRN.NEUROPHYSIOLOGICAL TECHNICIAN [address] [facility] [place] [address] Brass Molder Family [facility] [place] 08/02/24 Smiley Melo APRN.NEUROPHYSIOLOGICAL TECHNICIAN [address] [facility] [address] Brass Molder Family [facility] [place] 08/02/24 Emts Relationship Specialty Start Date End Date Ricci Cole MD [address] [place] [address] PCP - General Family Medicine 09/19/16 Toña Sawyer MD [address] [facility] [address] Endocrinology 08/11/19 Dylan Mac DO [address], [place] [id number] Automation Architect Gastroenterology 06/19/22 Nanci Huber APRN.NEUROPHYSIOLOGICAL TECHNICIAN [address] [place] [address] Brass Molder Family Medicine 08/02/24 Smiley Melo, PROCESS DESIGN ENGINEER.NEUROPHYSIOLOGICAL TECHNICIAN [address] [facility] [address] Brass Molder Family Medicine 08/02/24 Emts Relationship Specialty Start Date End Date Ricci Cole MD [address] [facility] [address] PCP - General Family Medicine 09/19/16 Toña Sawyer MD [address] [facility] [address] Endocrinology 08/11/19 Dylan Mac DO [address] [place] [address] Automation Architect Gastroenterology 06/19/22 Nanci Huber, PROCESS DESIGN ENGINEER.NEUROPHYSIOLOGICAL TECHNICIAN [address] [place] [address] Brass Molder Family [facility] [place] 08/02/24 Smiley Melo, PROCESS DESIGN ENGINEER.NEUROPHYSIOLOGICAL TECHNICIAN [address] [facility] [address] Brass Molder [facility] Medicine 08/02/24 Emts Relationship Specialty Start Date End Date Ricci Cole MD [address] [facility] [address] PCP - General Family Medicine 09/19/16 Toña Sawyer MD [address] [place] [address] Endocrinology 08/11/19 Dylan Mac DO [address] [place] [address] Automation Architect Gastroenterology 06/19/22 Nanci Huber APRN.NEUROPHYSIOLOGICAL TECHNICIAN [address] [facility] [place] [address] Brass Molder Family Medicine 08/02/24 Smiley Melo APRN.NEUROPHYSIOLOGICAL TECHNICIAN [address] [facility] [place] [address] Brass Molder Family Medicine 08/02/24 Emts Relationship Specialty Start Date End Date Ricci Cole MD [address] [facility] [place] [address] PCP - General Family Medicine 09/19/16 Toña Sawyer MD [address] [place] [address] Endocrinology 08/11/19 Dylan Mac DO [facility] REGANCARSON REAJose R [address], [place] [address] Automation Architect Gastroenterology 06/19/22 Nanci Huber APRN.NEUROPHYSIOLOGICAL TECHNICIAN [address] [place] [address] Brass Molder Family Medicine 08/02/24 Smiley Melo PROCESS DESIGN ENGINEER.NEUROPHYSIOLOGICAL TECHNICIAN [address] [facility] [place] [address] Brass Molder Family Medicine 08/02/24 Emts Relationship Specialty Start Date End Date Ricci Cole MD [address] [place] [address] PCP - General Family Medicine 09/19/16 Toña Sawyer MD [address] [place] [address] Endocrinology 08/11/19 Dylan Mac DO [address] [place], [place] 456581 Automation Architect Gastroenterology 06/19/22 Nanci Huber APRN.NEUROPHYSIOLOGICAL TECHNICIAN [address] [facility] [place] [address] [facility] 08/02/24 Smiley Melo APRN.NEUROPHYSIOLOGICAL TECHNICIAN [address] [place] [address] [facility] Emts Relationship Specialty Start Date End Date Ricci Cole MD [address] [place] [address] PCP - General Family Medicine 09/19/16 Toña Sawyer MD [address] [place] [address] Endocrinology 08/11/19 Dylan Mac DO [address] [place], [place] 317671 Automation Architect Gastroenterology 06/19/22 Nanci Huber APRN.NEUROPHYSIOLOGICAL TECHNICIAN [address] [place] [address] [facility] 08/[facility]/24 Smiley Melo APRN.NEUROPHYSIOLOGICAL TECHNICIAN [address] [place] [address] [facility] 08/02/24 Emts Relationship Specialty Start Date End Date Ricci Cole MD [address] [place] [address] PCP - General Family Medicine 09/19/16 Toña Sawyer MD [address] [place] [address] Endocrinology 08/11/19 Dylan Mac DO [address] [place] [address] Automation Architect Gastroenterology 06/19/22 Nanci Huber APRN.NEUROPHYSIOLOGICAL TECHNICIAN [address] [place] [address] [facility] 08/02/24 Smiley Melo APRN.NEUROPHYSIOLOGICAL TECHNICIAN [address] [place] [address] [facility] 08/02/24 Emts Relationship Specialty Start Date End Date Ricci Cole MD [address] [place] [address] PCP - General Family Medicine 09/19/16 Toña Sawyer MD [address] [place] [address] Endocrinology 08/11/19 Dylan Mac DO [address] [place] [address] Automation Architect Gastroenterology 06/19/22 Nanci Huber APRN.NEUROPHYSIOLOGICAL TECHNICIAN [address]40 [facility], [place] [id number] [facility] 08/02/24 Smiley Melo APRN.NEUROPHYSIOLOGICAL TECHNICIAN [address] [facility], [place] 129411 [facility] 08/02/24 Emts Relationship Specialty Start Date End Date Ricci Cole MD [address] [place] [facility] [place] [id number] PCP - General Family Medicine 09/19/16 Toña Sawyer MD [address] [place] [address] Endocrinology 08/11/19 Dylan Mac DO [address], [place] [address] Automation Architect Gastroenterology 06/19/22 Nanci Huber APRN.NEUROPHYSIOLOGICAL TECHNICIAN [address] [facility] [place] [address] [facility] 08/02/24 Smiley Melo APRN.NEUROPHYSIOLOGICAL TECHNICIAN [address] [place] [address] [facility] 08/02/24 Team Status: Active Member Role/Relationship Status [...] BE BASED ON THE PRIMARY CLINICAL RECORDS. [employer] [facility]. provides no warranty or guarantee of the accuracy or completeness of information in this document.
[2025-08-04 03:39] LABS: AST(SGOT) 10 U/L (<=31); Alanine Aminotransfer ALT/SGPT 10 U/L (<=34); Albumin, Serum 3.5 g/dL (3.4-4.8); Alkaline Phosphatase 71 U/L (35-104); Anion Gap 14 (5-15); BUN 12 mg/dL (4-19); BUN/Creat Ratio 17.7 RATIO (10-20); Bilirubin, Direct 0.17 mg/dL (0.00-0.30); Calcium,Total 9.0 mg/dL (7.6-11.0); Carbon Dioxide 21.4 mmol/L (21.0-32.0); Chloride 102 mmol/L (98-108); Estimated Creatinine Clearance 82.11 ml/min (50-250); Globulin 2.8 g/dL (2.2-4.2); Glucose 345 mg/dL (70-99); Potassium 3.7 mmol/L (3.3-5.1)
[2025-08-04 04:02] LABS: Procalcitonin 0.08 ng/mL (<=0.10)
[2025-08-04] MEDS: Cefepime HCl 1 GM in 0.9% Normal Saline (50mL MB+) 50 ML IV (04:02)
--- NOTE | 2025-08-04 04:02 | PCM.HP.STD ---
HPI - General General Date of Admission: 08/04/25 Date of Service: 08/04/25 Chief Complaint: N/V/D, headache, general debility, recent R ankle fracture with pain. HPI Narrative The patient is a 70-year-old female w/ PMHx: Obesity, IDDM with chronic neuropathy and gastroparesis, HTN, HLD, Tobacco use, GERD, Hx UTI with Hx ESBL E. Coli infectiou prior, COPD, Anxiety and Depression/mood disorder, recent history 07/20/2025 with history of mechanical fall with right ankle discomfort with a comminuted moderately displaced fracture of the distal fibula and medial malleolus with subluxation of the ankle joint medially discharged with recommended follow-up with Jayce Cole as well as Kenn Weldon with patient reportedly noting that she potentially had a surgical date 08/02/2025 but it was canceled because her blood sugar had been in the 300 range who presents to the [facility] ED on 08/04/2025 with history of nausea, emesis with elevated blood sugars with discomfort to her right ankle with also recent loose stools in addition to headache with decreased mobility prompting daughter given concerns to contact EMS. She currently notes that her right ankle pain is throbbing, aching and sharp 9 of 10 in severity. Patient does remark that she has had urinary frequency. Workup in the ED included T98.7, heart rate 118, BP 159/80, respiratory rate 16, 95% on room air, CBC with WBC 16.3, hemoglobin 13.7, platelet 333 with left shift, CMP with BUN/creatinine 12/0.69, GFR 94, glucose 347, lactic acid 1.7, hepatic profile not marked appearing, urine noted be cloudy, specific gravity 1.020, protein 30, glucose of thousand, ketone 50, occult blood 25, positive nitrite, leukocyte esterase 500, urine WBCs greater than 100 with 2+ bacteria, urine culture pending per ED. Most recent urine culture noted 05/15/2025 with ESBL E. coli greater than 100,000 sensitive to cefepime, gentamicin, imipenem, meropenem, nitrofurantoin, Zosyn therapy. In the ED patient ministered 1 L normal saline, cefepime 1 g IV x 1, morphine 4 mg IV x 1 as well as Zofran 4 mg IV x 1. [facility] Medical History History of ESBL E. coli infection Wears dentures Wears glasses Post-menopausal Anxiety History of steroid therapy Insulin dependent diabetes mellitus Arthritis High cholesterol Migraine headache Injury of head and neck Gastric reflux Smoker History of stress test Hypertension Cardiology follow-up encounter GERD (gastroesophageal reflux disease) Smoker Urinary tract infection UTI due to extended-spectrum beta lactamase (ESBL) producing Escherichia coli Secondary polycythemia Gastritis Panic disorder with agoraphobia Depression Diarrhea Leukocytosis Essential (primary) hypertension Frequent headaches Urinary incontinence Diabetes Gastroparesis Type 2 diabetes mellitus without complications Vision problem GI problem COPD (chronic obstructive pulmonary disease) Diabetes type 2, controlled Chronic bronchitis Chronic UTI Anxiety and depression Seasonal allergies Tobacco abuse COPD (chronic obstructive pulmonary disease) Fibromyalgia Home Medications ?Medication ?Instructions ?Recorded ?Last Taken ?Type insulin lispro 100 unit/mL See Protocol subcut TID diabetes 01/02/22 07/20/25 History subcutaneous pen (Humalog KwikPen (U-100) Insulin) quetiapine 300 mg tablet 300 mg PO QHS mood 01/11/22 07/19/25 History albuterol sulfate 90 mcg/actuation 90 inh inhalation Q4H PRN PRN sob 01/17/22 07/20/25 History aerosol inhaler bupropion HCl 150 mg 24 hr tablet, 150 mg PO DAILY mood 01/17/22 07/19/25 History extended release buspirone 10 mg tablet 20 mg PO TID mood 01/17/22 07/20/25 History omeprazole 40 mg capsule,delayed 40 mg PO DAILY gerd 05/01/22 07/20/25 History release promethazine 25 mg tablet 25 mg PO Q6H PRN nausea 08/04/23 07/20/25 History quetiapine 25 mg tablet 25 mg PO TID PRN mental health 08/04/23 07/19/25 History albuterol sulfate 2.5 mg/3 mL 2.5 mg inhalation Q8H PRN 07/20/25 Unknown History (0.083 %) solution for nebulization shortness of breath or wheezing bupropion HCl 300 mg 24 hr tablet, 300 mg PO QHS 07/20/25 07/19/25 History extended release fluticasone fur. 200 mcg-umeclid 1 ea inhalation DAILY 07/20/25 07/20/25 History 62.5 mcg-vilant 25 mcg inhalat.powder (Trelegy Ellipta) gabapentin 400 mg capsule 400 mg PO TID 07/20/25 07/20/25 History insulin glargine U-300 conc 300 80 unit subcut DAILY 07/20/25 Unknown History unit/mL (1.5 mL) subcutaneous pen (Toujeo SoloStar U-300 Insulin) nystatin 100,000 unit/gram topical 1 applic topical DAILY 07/20/25 07/19/25 History powder Allergy/AdvReac Type Severity Reaction Status Date / Time Penicillins Allergy Hives Verified 08/04/25 04:06 Sulfa (Sulfonamide Allergy Hives Verified 08/04/25 04:06 Antibiotics) varenicline (From Chantix) Allergy Other Verified 08/04/25 04:06 Family History (Updated 08/04/25 @ 04:[address] Irma Huddleston MD) Brother Diabetes Hypertension Mother Heart disease Father COPD (chronic obstructive pulmonary disease) Surgical History History of cardiac catheterization History of appendectomy H/O tubal ligation S/P ORIF (open reduction internal fixation) fracture bladder sling S/P complete hysterectomy Hx of cholecystectomy Social History (Updated 08/04/25 @ 04:[address] Irma Huddleston MD) household members: family Smoking Status: Current every day smoker tobacco type: cigarettes Smoking packs per day: 0.5 Smoking cigarettes per day: 10.0 second hand exposure: Yes alcohol intake: never substance use type: does not use ROS ROS Narrative Admission Review of Systems: CONSTITUTIONAL: No weight loss, fever, chills, + weakness or fatigue. HEENT: Eyes: No visual loss, blurred vision, double vision or yellow sclerae. Ears, Nose, Throat: No hearing loss, sneezing, congestion, runny nose or sore throat. SKIN: No rash or itching, lesions, wounds except occasional stage ecchymoses, abrasion, status post recent right ankle fracture with ecchymoses to the region (seen in the ED prior to redressing by ED physician) CARDIOVASCULAR: No chest pain, chest pressure or chest discomfort, palpitations, edema, orthopnea, syncopal events. RESPIRATORY: No shortness of breath, cough or sputum, wheezing, hemoptysis. GASTROINTESTINAL: + anorexia, nausea, vomiting, loose stools. No abdominal pain, melena, BRBPR. GENITOURINARY: + Urinary frequency. No marked dysuria, urgency or retention. NEUROLOGICAL: No headache, dizziness, syncope, paralysis, ataxia, numbness or tingling in the extremities, focal weakness, change in bowel or bladder control, seizure. MUSCULOSKELETAL: + muscle, back pain, joint pain or stiffness. HEMATOLOGIC: No anemia, bleeding or bruising. LYMPHATICS: No enlarged nodes. No history of splenectomy. PSYCHIATRIC: + History of anxiety depression/mood disorder. ENDOCRINOLOGIC: No reports of sweating, cold or heat intolerance. No polyuria or polydipsia. ALLERGIES: + History of hives. Vital Signs Vital Signs Vital Signs: 08/04/25 02:34 Temperature 98.7 F Temperature Source Oral Pulse Rate 118 H Respiratory Rate 16 Blood Pressure 159/80 H Blood Pressure Mean 106 Pulse Ox 95 Oxygen Delivery Method Room Air Weight Weight: 222 lb 3.615 oz Body Mass Index (BMI) 34.8 Physical Exam Narrative Physical Examination: General: Awake, alert, oriented x 3 and cooperative, laying in ED bed, uncomfortable appearing, currently right ankle splints being replaced by ED physician, rating pain 9 out of 10. Skin: Normal color, normal turgor, no icterus, no cyanosis except occasional stage ecchymoses, abrasion including to the right foot. HEENT: AT/NC, EOMI, PERRLA, moderately dry MM, no carotid bruits or JVD noted. Lungs: Mildly diminished, greater bases, appropriate effort, no evidence of any distress, no rales, ronchi or wheezing. Heart: Mildly tachycardic with regular rhythm; no gallop, rub audible. Abdomen: Soft, obese, NTTP, no obvious distention evident, hyperactive BS, no markedly appreciated HSM; however habitus makes evaluation difficult. Extremities: No cyanosis, no clubbing, no significant distal edema to the left lower extremity however right lower extremity with recent ankle fracture with ecchymoses as noted and expected swelling, sensation intact, able to move toes bilaterally. Neurological: Patient awake, alert, oriented as noted, cognitive function intact; pupils equally reactive to light and accommodation, cranial nerves grossly normal, moving all 4 extremities, although expected limitation right lower extremity given ankle fracture no focal deficits, strength moderately to severely globally decreased. Psychiatric: Affect appears fatigued, uncomfortable, no acute evidence of depressive or anxiety feelings but does have underlying history. Results Lab / Micro Data 08/04/25 03:00 08/04/25 03:00 Labs: Laboratory Results - last 24 hr 08/04/25 03:00: WBC 16.3 H, RBC 4.55, Hgb 13.7, Hct 41.4, MCV 91.0, MCH 30.1, MCHC 33.1, RDW Std Deviation 43.4, RDW Coeff of Jona 13.2, Plt Count 333, MPV 8.7, Immature Gran % (Auto) 0.600, Neut % (Auto) 79.2 H, Lymph % (Auto) 13.4 L, Lipscomb % (Auto) 6.2, Eos % (Auto) 0.3, Baso % (Auto) 0.3, Absolute Neuts (auto) 12.9 H, Absolute Lymphs (auto) 2.17, Nucleated RBC % 0, Sodium 138, Potassium 3.7, Chloride 102, Carbon Dioxide 21.4, Anion Gap 14, BUN 12, Creatinine 0.69 L, Estim Creat Clear Calc 82.11, Est GFR (MDRD) Non-Af 94, BUN/Creatinine Ratio 17.7, Glucose 345 H, Lactic Acid 1.7, Calcium 9.0, Total Bilirubin 0.37, Direct Bilirubin 0.17, AST 10, ALT 10, Alkaline Phosphatase 71, Total Protein 6.3, Albumin 3.5, Globulin 2.8, Lipase 14, b-Hydroxybutyric mmol/L 0.8 H 08/04/25 03:05: Urine Color Yellow, Urine Clarity Sl. Cloudy, Urine pH 6.0, Ur Specific [place] 1.020, Urine Protein 30 H, Urine Glucose (UA) 1000 H, Urine Ketones 50 H, Urine Occult Blood 25 H, Urine Nitrite Positive H, Urine Bilirubin Negative, Urine Urobilinogen Normal, Ur Leukocyte Esterase 500 H, Urine RBC 0-5 SEEN, Urine WBC >100 SEEN, Ur Squamous Epith Cells 0-5 SEEN, Urine Bacteria 2+, Urine Mucus 1+, Urine Yeast 1+ Assessment & Plan Assessment/Plan (1) Acute UTI: PLAN: Plan The patient is a 70-year-old female w/ PMHx: Obesity, IDDM with chronic neuropathy and gastroparesis, HTN, HLD, Tobacco use, GERD, Hx UTI with Hx ESBL E. Coli infectiou prior, COPD, Anxiety and Depression/mood disorder, recent history 07/20/2025 with history of mechanical fall with right ankle discomfort with a comminuted moderately displaced fracture of the distal fibula and medial malleolus with subluxation of the ankle joint medially discharged with recommended follow-up with Jayce Cole as well as Kenn Weldon with patient reportedly noting that she potentially had a surgical date but he did not canceled because of her blood sugar in the 300 range who presents to the [facility] ED on 08/04/2025 with history of nausea, emesis with elevated blood sugars with discomfort to her right ankle with also recent loose stools in addition to headache with decreased mobility prompting daughter given concerns to contact EMS. #1. N/V/D, Adult FTT, multifactorial, secondary to Acute Complicated Urinary Tract Infection with history of ESBL E. coli in addition to #2 complicated also medical history as noted below: Will admit to [facility] upon ED evaluation remarkable, pending UCx, continue IVFs, monitor I/Os, continue IV cefepime given resistance patterns previously noted w/ transition as able pending sensitivities and speciation. #2. Right ankle bimalleolar fracture: Will maintain nonweightbearing to the right lower extremity, elevate, ice as needed, will consult Dr. Nj which was discussed with patient and she was amenable as initially plan had been to follow-up with Dr. Stroud but following discussion she has preference at this time to continue with podiatry, will have as needed pain regimen, antiemetics as needed, bowel regimen. PT/OT/case management consulted additionally for discharge planning. #3. Diabetes mellitus type II with chronic neuropathy and gastroparesis: Hold oral home regimen, continue home insulin regimen, ADA diet, accu checks w/ ISS, continue home gabapentin regimen. Most recent noted hemoglobin A1c 08/01/2025 9.2%. Will continue to monitor blood sugars and adjust insulin as needed. #4. Anxiety and depression/mood disorder: Will continue patient home buspirone, bupropion and Seroquel home regimen. #5. Chronic COPD: Provide hold home inhalers in the interim transition to ATC duonebs, PRN albuterol, HOB, IS parameters. #6. Hypertension: Noted history in the chart, per current list does not appear to be on regimen, clarified to be certain, BP currently above goal, will add regimen once able to obtain list however in the interim we will maintain on IV as needed hydralazine. #7. Hyperlipidemia: Per current list does not appear to be on regimen, defer to outpatient. #8. Tobacco Abuse: Encouraged cessation, inpatient consultation per RT, NR if desired. #9. Obesity: Weight loss and lifestyle changes encouraged. #10. GERD: Continue patient on PPI. #11. DVT prophylaxis: Lovenox. #12. CODE status: Full Code status. Charges/Coding Visit Charges Inpatient E&M: 12274 Init Hosp L3
--- NOTE | 2025-08-04 04:31 | EDS_ITS ---
HPI History of Present Illness Chief Complaint: Lower Extremity Injury Informant: patient and EMS Narrative Narrative: Patient is a 70-year-old female with past medical hypertension hyperlipidemia and insulin-dependent diabetes. She was seen on July 20 secondary to a fall and had a right trimalleolar fracture. Patient states she was scheduled to have surgery on the fracture this past August 02. She states however her blood sugar was elevated and secondary to this the surgery was canceled by Dr. Stroud. She states the surgery has not been rescheduled because she needs to get her sugars under better control before it will be done. She states she has been staying at home but in the last few days has been having worsening ankle pain however she has also been out of her narcotic pain medication for the past few days. She states that on top of increasing fatigue and right ankle pain she is also noticed urinary frequency and bouts of nausea and vomiting. With concern that she was developing infection EMS was called and she was sent in for evaluation [facility] Medical History History of ESBL E. coli infection Wears dentures Wears glasses Post-menopausal Anxiety History of steroid therapy Insulin dependent diabetes mellitus Arthritis High cholesterol Migraine headache Injury of head and neck Gastric reflux Smoker History of stress test Hypertension Cardiology follow-up encounter GERD (gastroesophageal reflux disease) Smoker Urinary tract infection UTI due to extended-spectrum beta lactamase (ESBL) producing Escherichia coli Secondary polycythemia Gastritis Panic disorder with agoraphobia Depression Diarrhea Leukocytosis Essential (primary) hypertension Frequent headaches Urinary incontinence Diabetes Gastroparesis Type 2 diabetes mellitus without complications Vision problem GI problem COPD (chronic obstructive pulmonary disease) Diabetes type 2, controlled Chronic bronchitis Chronic UTI Anxiety and depression Seasonal allergies Tobacco abuse COPD (chronic obstructive pulmonary disease) Fibromyalgia Home Medications ?Medication ?Instructions ?Recorded ?Last Taken ?Type insulin lispro 100 unit/mL See Protocol subcut TID serenity betes 01/02/22 07/20/25 History subcutaneous pen (Humalog KwikPen (U-100) Insulin) quetiapine 300 mg tablet 300 mg PO QHS mood 01/11/22 07/19/25 History albuterol sulfate 90 mcg/actuation 90 inh inhalation Q 4H PRN PRN sob 01/17/22 07/20/25 History aerosol inhaler bupropion HCl 150 mg 24 hr tablet, 150 mg PO DAILY moo d 01/17/22 07/19/25 History extended release buspirone 10 mg tablet 20 mg PO TID mood 01/17/22 1 09/19/24 History omeprazole 40 mg capsule,delayed 40 mg PO DAILY gerd 0 05/01/22 07/20/25 History release promethazine 25 mg tablet 25 mg PO Q6H PRN nausea 07/2507/20/25 History quetiapine 25 mg tablet 25 mg PO TID PRN mental heal th 08/04/23 07/19/25 History albuterol sulfate 2.5 mg/3 mL 2.5 mg inhalation Q8H IA N 07/20/25 Unknown History (0.083 %) solution for nebulization shortness of breat h or wheezing bupropion HCl 300 mg 24 hr tablet, 300 mg PO QHS 07/2007/19/25 History extended release fluticasone fur. 200 mcg-umeclid 1 ea inhalation DAILY 07/20/25 07/20/25 History 62.5 mcg-vilant 25 mcg inhalat.powder (Trelegy Ellipta) gabapentin 400 mg capsule 400 mg PO TID 07/20/2507/20 History insulin glargine U-300 conc 300 80 unit subcut DAILY 1 09/19/24 Unknown History unit/mL (1.5 mL) subcutaneous pen (Toujeo SoloStar U-300 Insulin) nystatin 100,000 unit/gram topical 1 applic topical DA ISAIAH 07/20/25 07/19/25 History powder Allergy/AdvReac Type Severity Reaction Status Date / Time Penicillins Allergy Hives Verified 08/04/25 04:06 Sulfa (Sulfonamide Allergy Hives Verified 08/04/25 04:06 Antibiotics) varenicline (From Chantix) Allergy Other Verified 08/04/25 04:06 Family History (Updated 08/04/25 @ 04:[address] Irma Huddleston MD) Brother Diabetes Hypertension Mother Heart disease Father COPD (chronic obstructive pulmonary disease) Surgical History History of cardiac catheterization History of appendectomy H/O tubal ligation S/P ORIF (open reduction internal fixation) fracture bladder sling S/P complete hysterectomy Hx of cholecystectomy Social History (Updated 08/04/25 @ 04:[address] Irma Huddleston MD) household members: family Smoking Status: Current every day smoker tobacco type: cigarettes Smoking packs per day: 0.5 Smoking cigarettes per day: 10.0 second hand exposure: Yes alcohol intake: never substance use type: does not use ROS ROS ED Constitutional Constitutional ED: Reports other Details: Positive fatigue ; Denies chills or fever(s) Eyes Eyes: Denies change in vision ENT ENT ED: Denies rhinorrhea or sore throat Cardiovascular Cardiovascular: Denies chest pain Respiratory/Chest Respiratory/Chest: Denies cough or dyspnea Gastrointestinal Gastrointestinal: Reports nausea and vomiting; Denies abdominal pain or diarrhea Genitourinary Genitourinary ED: Reports dysuria and urinary frequency; Denies hematuria Musculoskeletal Musculoskeletal: Reports other Details: Positive right ankle pain ; Denies myalgias Integumentary Denies rash Neurologic Neurologic: Reports weakness; Denies headache(s) Hematologic/Lymphatic Hematologic/Lymphatic: Denies easy bleeding or easy bruising EXAM Physical Exam Const Vital Signs: 08/04/25 02:34 08/04/25 03:39 08/04/25 04:38 Temperature 98.7 F 98.8 F 98.9 F Temperature Source Oral Oral Pulse Rate 118 H 103 H 104 H Respiratory Rate 16 20 H 16 Blood Pressure 159/80 H 165/83 H 131/75 H Blood Pressure Mean 106 110 93 Pulse Ox 95 95 98 Oxygen Delivery Method Room Air Room Air 08/04/25 04:39 Temperature 98.8 F Temperature Source Oral Pulse Rate 102 H Respiratory Rate 20 H Blood Pressure 111/70 Blood Pressure Mean 83 Pulse Ox 96 Oxygen Delivery Method Room Air Positive well nourished, well developed and obese General Appearance ED: well developed; Negative for pallor Nutritional Appearance: obese HEENT Reports dry mucous membranes HEENT Narrative: Normocephalic atraumatic No tongue or lip swelling no oral lesions no airway edema or compromise No secondary findings in the posterior pharynx to suggest infection Mucous membranes are dry and tacky Mouth ED: Yes dry mucous membranes Mouth: dry mucous membranes Eyes PERRL and EOMs intact bilaterally General Eye ED: Negative for scleral icterus Neck supple Neck Narrative: No nuchal rigidity or meningeal signs noted Resp normal respiratory effort Resp Narrative: Breath sounds are diminished throughout with faint expiratory wheeze and rhonchi in the bilateral bases but no signs of respiratory distress Cardio regular rhythm Rate: tachycardic and other Other Details: Tachycardic rate with regular rhythm Radial and carotid pulses are equal and symmetric GI normal to inspection, nondistended, normoactive bowel sounds, non-tender, non- distended and no masses GI Narrative: Soft nontender and nondistended with normal active bowel sounds. No voluntary guarding or rigidity or pulsatile mass. No peritoneal signs or fluid wave noted Auscultation: normoactive bowel sounds Palpation: soft Back/Spine no CVA tenderness Extremity Extremity Narrative: Right lower extremity is neurovascularly intact. The patient's splint was removed and the tissue is slightly edematous and ecchymotic consistent with the subacute fracture however there is no erythema or warmth to suggest infection no lymphangitic streaking or crepitance palpated. No break in the skin tissue. No fracture blisters noted. Neuro oriented x3, CN's II-XII intact bilaterally and no sensory deficits noted Sensorium / Orientation: alert Motor Exam: strength 5/5 throughout Psych Psych Narrative: Patient has a depressed/flat affect Mood & Affect: depressed Skin No skin turgor normal Skin Narrative: Skin turgor is increased consistent with mild dehydration Soft tissue changes to the right ankle as documented above General Skin Exam: Negative for jaundice or pallor MDM MDM MDM Narrative Medical decision making narrative: Patient arrived to ER hypertensive but has a past medical history of this. She is also mildly tachycardic. It is unsure if the tachycardia is related to pain potential dehydration or even opioid withdrawal as she has not been on pain medication for her trimalleolar fracture for the past few days. In order to assess for the cause of her fatigue such as DKA acute kidney injury UTI viral infection such as COVID influenza RSV or now developing skin infection such as cellulitis or abscess I did elect to perform basic laboratory studies with viral swab. She is satting 95 to 100% on room air and does not show signs of respiratory distress so I have low concern for pneumonia and feel no need for chest x-ray. Her abdomen is soft and nontender nondistended so I have low concern for intestinal infection such as colitis/diverticulitis or obstruction and therefore feel no need for abdominal CT. Labs reveal leukocytosis at 16 with mild left shift at 12.9. However her lactic acid is normal. Urine sample shows bacteria with positive nitrite and leukocyte esterase consistent with UTI. Therefore was sent for culture. Her previous culture from April of this year was reviewed and it was sensitive to cefepime therefore this was provided in the ER. Her anion gap is normal and her beta hydroxybutyrate is only slightly elevated at 0.8 and this is not consistent with DKA. Based on the patient's history of having ESBL E. coli UTIs her fracture and generalized weakness I do not feel that discharge is in her best option. She will need IV antibiotics while urine awaits culture as well as evaluation by PT OT to discuss group home/rehab placement and also potential surgical correction of her fracture while in the hospital. Secondary to this the case was discussed with the hospitalist/Dr. Huddleston who agrees to accept the patient for continued care History & Record Review Discussion w/independent historian: EMS personnel and Patient Lab Data Attestation: I reviewed the patient's lab results. Labs: Laboratory Results - last 24 hr 08/04/25 08/04/25 03:00 03:05 WBC 16.3 H RBC 4.55 Hgb 13.7 Hct 41.4 MCV 91.0 MCH 30.1 MCHC 33.1 RDW Std Deviation 43.4 RDW Coeff of Jona 13.2 Plt Count 333 MPV 8.7 Immature Gran % (Auto) 0.600 Neut % (Auto) 79.2 H Lymph % (Auto) 13.4 L [place] % (Auto) 6.2 Eos % (Auto) 0.3 Baso % (Auto) 0.3 Absolute Neuts (auto) 12.9 H Absolute Lymphs (auto) 2.17 Nucleated RBC % 0 Sodium 138 Potassium 3.7 Chloride 102 Carbon Dioxide 21.4 Anion Gap 14 BUN 12 Creatinine 0.69 L Estim Creat Clear Calc 82.11 Est GFR (MDRD) Non-Af 94 BUN/Creatinine Ratio 17.7 Glucose 345 H Lactic Acid 1.7 Calcium 9.0 Total Bilirubin 0.37 Direct Bilirubin 0.17 AST 10 ALT 10 Alkaline Phosphatase 71 Total Protein 6.3 Albumin 3.5 Globulin 2.8 Lipase 14 b-Hydroxybutyric mmol/L 0.8 H Procalcitonin 0.08 Urine Color Yellow Urine Clarity Sl. Cloudy Urine pH 6.0 Ur Specific [place] 1.020 Urine Protein 30 H Urine Glucose (UA) 1000 H Urine Ketones 50 H Urine Occult Blood 25 H Urine Nitrite Positive H Urine Bilirubin Negative Urine Urobilinogen Normal Ur Leukocyte Esterase 500 H Urine RBC 0-5 SEEN Urine WBC >100 SEEN Ur Squamous Epith Cells 0-5 SEEN Urine Bacteria 2+ Urine Mucus 1+ Urine Yeast 1+ Management Discussion w/another healthcare provider: Hospitalist Discharge Plan Dx/Rx/DC Orders Clinical Impression: Acute UTI, Generalized weakness, Closed trimalleolar fracture of right ankle, Hyperglycemia, Diabetes mellitus type 2, insulin dependent Disposition Disposition: Acute Care Hospital [facility] Discharge Date/Time: 08/04/25 04:57
--- OUTSIDE RECORDS SUMMARY | 2025-08-04 04:56 | XMS RPT_ITS | CCD ---
Author Organization [facility] Care Team Providers Care Stock Drier Tender Name Role Phone TOSHIA ROMERO DO Admitting [...] [phone] Audie Walker Emergency Provider [phone] Dr. Pippa Brice Admit Provider Dr. Naveen Castro Attending Provider Dr. Naveen Castro Other Provider Ricci Cole MD Primary Care Provider Digna TATE, Toña Unavailable Anup TAVERAS, Sho Odell Unavailable [phone] Ricci Cole Primary Care Provider Dr. [...] MD Primary Care Provider LouiseedgarveritoJacqui Unavailable Haagen PEDIATRIC ASSOCIATE.ALUM PLANT OPERATOR, Nanci Unavailable Suppclara PEDIATRIC ASSOCIATE.ALUM PLANT OPERATOR, Smiley A Unavailable [phone] Dr. Ricci Cole MD Primary Care Physician Johnna TATE, Dr. Harper Attending Physician Dr. [...] (antibiotic) (1 source) Penicillins Drug Allergy 8 [facility] Work Phone: Sulfonamides (antibiotic) (1 source) Sulfonamides (Antibiotic) Drug Allergy 7 Rash, Other: See Comments [facility] varenicline (1 source) varenicline Drug Allergy 9 Mental Status Change [facility] (1 source) Penicillins Drug allergy (disorder) [facility] Repository (1 source) Sulfonamides (Antibiotic) Drug allergy (disorder) [facility] Repository (20 sources) Penicillins; Translations: [PENICILLINS] Propensity to adverse reactions to drug (disorder) 8 [facility] Repository (20 sources) Sulfonamides (Antibiotic); Translations: [SULFA (SULFONAMIDE ANTIBIOTICS)] Propensity to adverse reactions to drug (disorder) 7 Rash, Other: See Comments [facility] Repository (20 sources) varenicline; Translations: [VARENICLINE] Drug Allergy 9 Mental Status Change [facility] Comment on above: fuzzy head (1 source) varenicline Drug Allergy 5 [facility] Repository Medications Current Medications Medication Drug [...] Comment on above: Take 1 tablet by [facility] twice daily for 10 days. ergocalciferol 1.25 [...] Comment on above: Take 1 capsule by [facility] one time a week. ertapenem 1000 mg injection (6 sources) Penem Antibacterial Start: 2 Ertapenem Active 1 GM IV EVERY 24 HOURS 04 01May 03, 2022 12:00am stop date 05/11/22 dx:esbl uti weekly bmp, cbc, and LFT. Fax to [phone]. escitalopram 20 mg oral tablet (20 sources) [...] on above: Take 2 tablets by mo [facility] twice daily as needed for cold/allergy [...] complication, without long-term current use of insulin ([facility]) Inject 12 Units subcutaneously three times a day before meals. And sliding scale up to 38 units tid. 3 Each 5 10/05/2024 Active Start: 03-30-2020 End: 10-31-2020 insulin lispro (HUMALOG KWIK PEN INSULIN) 100 unit/mL Indications: Type 2 diabetes mellitus without complication, without long-term current use of insulin ([facility]) Inject 12 Units subcutaneously three times daily [...] more refills. Take 1 capsule by mo [facility] once daily. phenazopyridine hydrochloride 200 mg [...] on above: Take 2 tablets by mo [facility] once daily for 5 days. Take [...] spray Indications: PND (post-nasal drip) Use 1 [facility] in each nostril twice daily. 6 mL 1 09/07/2021 04/15/2023 Discontinued (Other) Comment on above: Use 1 [facility] in each nostril twice daily. Blood Pressure [...] KIT checking bp 4 times daily calcitriol 0.40382 mg oral capsule (20 sources) Vitamin D3 Analog Start: 12-20-2021 End: 08-19-2023 take 1 capsule by mouth once daily calcitriol (ROCALTROL) 0.25 mcg capsule Indications: Low vitamin D level Take 1 capsule by mouth once daily. 30 capsule 5 04/15/2023 08/19/2023 Discontinued Comment on above: Take 1 capsule by [facility] once daily. carvedilol 12.5 mg oral tablet [...] SAME . Urine Culture ESBL Escherichia coli [place] Count >100,000 MARKER ESBL producing OrganismA MARKER [...] TMP SMX Islt STEPHEN >=320 R Normal [facility] Comment on above: Performed By: #### M 100.2200 #### [facility] [place], [address] [facility] 05-17-2025 [facility] Telephone (INTMWS) IVET VALERO ([id number]) 1955 F Date Time Provider Department 05/17/25 RICCI COLE INTMWS During your visit today, we recorded the following information about you: Sue Quinonez RN 05/17/2025 12:02 PM Signed Patient calls to request prescription for pain medication. Patient reports she was to [facility] ER on Friday for fall with [...] every 6 hours as needed. - Insulin Keldron, Disposable, (BD ULTRA-FINE MINDY PEN NEEDLE) 32 [...] mg by mouth once daily. - Insulin Keldron, Disposable, 32 gauge x 5/16 ndle Use [...] diabetes mellitus (more content not included)... [facility] Absolute lymphocyte countOrd ered By: Bhavin Quinn on 05-15-2025 Lymphocytes Auto (Unsp spec) [#/Vol] 3.26 10*3/uL 0.83-4.51 [facility] Absolute neutrophil countOrd ered By: Bhavin Quinn on 05-15-2025 Neutrophils (Bld) [#/Vol] 10.8 10*3/uL High 2.0-7.7 [facility] Anion gap in Serum or Plasma Ordered By: Bhavin Quinn on 05-15-2025 Anion gap [Moles/Vol] 13 mmol/L - [facility] Automated lymphocyte count a s percentage of total leukocytesOrdered By: Bhavin Quinn on 05-15-2025 Lymphocytes/100 WBC Auto (Unsp spec) 21.1 % [facility] BUN/creatinine ratioOrdered By: Bhavin Quinn on 05-15-2025 Urea nitrogen/Creatinine [Mass ratio] 10.0 mg/mg - [facility] Basic Metabolic Profile (BMP )on 05-15-2025 BUN/CRE 10.0 RATIO Normal 06-13 [facility] Comment on above: Performed By: #### L 100.0100, L501.5200, L501.9520, L500.2500 #### [facility] [address] [place], [address] Calcium [Mass/Vol] 9.2 mg/dL Normal 7.6-11.0 [facility] Comment on above: Performed By: #### L 100.0100, L501.5200, L501.9520, L500.2500 #### [facility] [address] [place], [address] Chloride [Moles/Vol] 105 mmol/L Normal 98-108 [facility] Comment on above: Performed By: #### L 100.0100, L501.5200, L501.9520, L500.2500 #### [facility] [address] [place], [address] CO2 [Moles/Vol] 23.7 mmol/L Normal 21.0-32.0 [facility] Comment on above: Performed By: #### L 100.0100, L501.5200, L501.9520, L500.2500 #### [facility] [address] [place], [address] Creatinine [Mass/Vol] 0.68 mg/dL Low 0.70-1.20 [facility] Comment on above: Performed By: #### L 100.0100, L501.5200, L501.9520, L500.2500 #### [facility] [address] [place], [address] ECRCL 85.13 ml/min Normal 50-250 [facility] Comment on above: Performed By: #### L 100.0100, L501.5200, L501.9520, L500.2500 #### [facility] [address] [place], [address] GAP 13 Normal 5-15 [facility] Comment on above: Performed By: #### L 100.0100, L501.5200, L501.9520, L500.2500 #### [facility] [address] [place], [address] GFR/1.73 sq M.predicted among non-blacks MDRD (S/P/Bld) [Vol rate/Area] 95 mL/min/{1.73_m2} Normal >60 [facility] Comment on above: Result Comment: mL/m in/1.73m2 CKD-EPI Creatinine Equation (2020) Performed By: #### L 100.0100, L501.5200, L501.9520, L500.2500 #### [facility] [address] [place], [address] Glucose [Mass/Vol] 163 mg/dL High 70-99 [facility] Comment on above: Performed By: #### L 100.0100, L501.5200, L501.9520, L500.2500 #### [facility] [address] [place], [address] Potassium [Moles/Vol] 3.7 mmol/L Normal 3.3-5.1 [facility] Comment on above: Result Comment: Hemo lysis present, Results??could be affected. ?? Performed By: #### L 100.0100, L501.5200, L501.9520, L500.2500 #### [facility] [address] [place], [address] Sodium [Moles/Vol] 142 mmol/L Normal 133-145 [facility] Comment on above: Performed By: #### L 100.0100, L501.5200, L501.9520, L500.2500 #### [facility] [address] [place], [address] Urea nitrogen [Mass/Vol] 7 mg/dL Normal 4-19 [facility] Comment on above: Performed By: #### L 100.0100, L501.5200, L501.9520, L500.2500 #### [facility] [address] [place], [address] Basophil percentageOrdered B y: Bhavin Quinn on 05-15-2025 Basophils/100 WBC (Bld) 0.4 % 0-1 [facility] Bilirubin Test strip Ql (U)O rdered By: Bhavin Quinn on 05-15-2025 Bilirubin Ql (U) Negative Negative [facility] Brain/Head without Contrasto n 05-15-2025 Brain/Head without Contrast [facility] Imaging Services [address] [place] [address] Brain/Head without Contrast MR#: [id number] Acct: [id number] Name: IVET VALERO Rep #: [id number] : 1955 F 70 From: Tay Leon MD PCP: Dr. Ricci Cole MD Status: REG ER Study: Brain/Head without Contrast Date of Exam: 04/26 09/18 Exam# [id number] Ordering Dr: Bhavin Quinn DO PROCEDURE: BRAIN/HEAD [...] ischemic gliotic white matter changes. Reading Location: [facility] CC: Dr. Ricci Cole MD; Bhavin Quinn DO Final Touch Up Painter: Signed Normal [facility] CBC W/Diff, Automatedon 04-26 Absolute Lymph 3.26 X10 3/uL Normal 0.83-4.51 [facility] Comment on above: Performed By: #### L 100.0100, L501.5200, L501.9520, L500.2500 #### [facility] [address] [place], [address] Absolute Neut 10.8 X10 3/uL High 2.0-7.7 [facility] Comment on above: Performed By: #### L 100.0100, L501.5200, L501.9520, L500.2500 #### [facility] [address] [place], [address] Basophils/100 WBC (Bld) 0.4 % Normal 0-1 [facility] Comment on above: Performed By: #### L 100.0100, L501.5200, L501.9520, L500.2500 #### [facility] [address] [place], [address] Eosinophils/100 WBC (Bld) 0.5 % Normal 0-5 [facility] Comment on above: Performed By: #### L 100.0100, L501.5200, L501.9520, L500.2500 #### [facility] [address] [place], [address] Erythrocyte distribution width (RBC) [Ratio] 13.2 % Normal 11.6-14.6 [facility] Comment on above: Performed By: #### L 100.0100, L501.5200, L501.9520, L500.2500 #### [facility] [address] [place], [address] Hematocrit (Bld) [Volume fraction] 40.2 % Normal 37-47 [facility] Comment on above: Performed By: #### L 100.0100, L501.5200, L501.9520, L500.2500 #### [facility] [address] [place], [address] Hemoglobin (Bld) [Mass/Vol] 13.4 g/dL Normal 12.0-15.0 [facility] Comment on above: Performed By: #### L 100.0100, L501.5200, L501.9520, L500.2500 #### [facility] [address] [place], [address] IG% 0.700 Normal 0.0-0.9 [facility] Comment on above: Result Comment: IG% - Immature Granulocytes (promyelocytes, myelocytes and metamyelocytes) > 1% indicates that a LEFT SHIFT is Present. Performed By: #### L 100.0100, L501.5200, L501.9520, L500.2500 #### [facility] [address] [place], [address] Lymphocytes/100 WBC (Bld) 21.1 % Normal 19-41 [facility] Comment on above: Performed By: #### L 100.0100, L501.5200, L501.9520, L500.2500 #### [facility] [address] [place], [address] MCH (RBC) [Entitic mass] 30.7 pg Normal 27.0-32.0 [facility] Comment on above: Performed By: #### L 100.0100, L501.5200, L501.9520, L500.2500 #### [facility] [address] [place], [address] MCHC (RBC) [Mass/Vol] 33.3 g/dL Normal 32-36 [facility] Comment on above: Performed By: #### L 100.0100, L501.5200, L501.9520, L500.2500 #### [facility] [address] [place], [address] MCV (RBC) [Entitic vol] 92.2 fL Normal 81-99 [facility] Comment on above: Performed By: #### L 100.0100, L501.5200, L501.9520, L500.2500 #### [facility] [address] [place], [address] Monocytes/100 WBC (Bld) 7.4 % Normal 0-10 [facility] Comment on above: Performed By: #### L 100.0100, L501.5200, L501.9520, L500.2500 #### [facility] [address] [place], [address] Neutrophils/100 WBC (Bld) 69.9 % Normal 47-70 [facility] Comment on above: Performed By: #### L 100.0100, L501.5200, L501.9520, L500.2500 #### [facility] [address] [place], [address] Nucleated RBC (Bld) [#/Vol] 0 10*3/uL Normal 0-5 [facility] Comment on above: Performed By: #### L 100.0100, L501.5200, L501.9520, L500.2500 #### [facility] [address] [place], [address] Platelet mean volume (Bld) [Entitic vol] 9.7 fL Normal 6.2-12.0 [facility] Comment on above: Performed By: #### L 100.0100, L501.5200, L501.9520, L500.2500 #### [facility] [address] [place], [address] Platelets (Bld) [#/Vol] 285 10*3/uL Normal 150-450 [facility] Comment on above: Performed By: #### L 100.0100, L501.5200, L501.9520, L500.2500 #### [facility] [address] [place], [address] RBC (Bld) [#/Vol] 4.36 10*6/uL Normal 4.2-5.4 [facility] Comment on above: Performed By: #### L 100.0100, L501.5200, L501.9520, L500.2500 #### [facility] [address] [place], [address] RDW SD 45.2 fl High 35.1-43.9 [facility] Comment on above: Performed By: #### L 100.0100, L501.5200, L501.9520, L500.2500 #### [facility] [address] [place], [address] WBC (Bld) [#/Vol] 15.5 10*3/uL High 4.4-11.0 [facility] Comment on above: Performed By: #### L 100.0100, L501.5200, L501.9520, L500.2500 #### [facility] [address] [place], [address] Carbon dioxide, total [Moles /volume] in Central venous bloodOrdered By: Bhavin Quinn on 05-15-2025 CO2 [Moles/Vol] 23.7 mmol/L 21.0-32.0 [facility] Chest without Contraston Chest without Contrast [facility] Imaging Services [address] [place] [address] Chest without Contrast MR#: [id number] Acct: [id number] Name: IVET VALERO Rep #: [id number] : 1955 F 70 From: Tay Leon MD PCP: Dr. Ricci Cole MD Status: REG ER Study: Chest without Contrast Date of Exam: 05/15/25 Exam# [id number] Ordering Dr: Bhavin Quinn DO PROCEDURE: CHEST [...] renal cyst measures 3.5 cm. Reading Location: [facility] CC: Dr. Ricci Cole MD; Bhavin Quinn DO Final Touch Up Painter: Signed Normal [facility] Chloride assayOrdered By: Yahaira Quinn on 05-15-2025 Chloride [Moles/Vol] 105 mmol/L 98-108 [facility] Emergency Department Summary on 05-15-2025 Emergency Department Summary [facility] Medical Records Department [address] [place] [address] Emergency Department Summary 05/15/25 MR#: [id number] Acct: [id number] Name: IVET VALERO Rep #: [id number] : 1955 70 From: Bhavin Quinn DO [...] was brought to the hospital for evaluation [facility] Medical History Wears dentures Wears glasses Post-menopausal [...] Denies chills (more content not included)... Normal [facility] Eosinophil percentageOrdered By: Bhavin Quinn on 05-15-2025 Eosinophils/100 WBC (Bld) 0.5 % 0-5 [facility] Erythrocyte distribution wid th ratioOrdered By: Bhavin Quinn on 05-15-2025 Erythrocyte distribution width (RBC) [Ratio] 13.2 % 11.6-14.6 [facility] Erythrocyte distribution wid th standard deviationOrdered By: Bhavin Quinn on 05-15-2025 Erythrocyte distribution width (RBC) [Ratio] 45.2 fl High 35.1-43.9 [facility] Glomerular filtration rate ( GFR) estimation/1.73 sq m using serum, plasma, or whole bOrdered By: Bhavin Quinn on 05-15-2025 GFR/1.73 sq M.predicted among non-blacks MDRD (S/P/Bld) [Vol rate/Area] 95 mL/min/{1.73_m2} >60 [facility] Comment on above: mL/min/1.73m2 CKD-EP I Creatinine Equation (2020) Hematocrit Auto (Bld) [Volum e fraction]Ordered By: Bhavin Quinn on 05-15-2025 Hematocrit (Bld) [Volume fraction] 40.2 % 37-47 [facility] Hemoglobin measurementOrdere d By: Bhavin Quinn on 05-15-2025 Hemoglobin (Bld) [Mass/Vol] 13.4 g/dL 12.0-15.0 [facility] Immature granulocytes/100 WB C Auto (Bld)Ordered By: Bhavin Quinn on 05-15-2025 Immature granulocytes/100 WBC (Bld) 0.700 % 0.0-0.9 [facility] Comment on above: IG% - Immature Granu locytes (promyelocytes, myelocytes and metamyelocytes) > 1% indicates that a LEFT SHIFT is Present. Ketones Test strip Ql (U)Ord ered By: Bhavin Quinn on 05-15-2025 Ketones Ql (U) Negative Negative [facility] MCV (mean corpuscular volume ) determinationOrdered By: Bhavin Quinn on 05-15-2025 MCV (RBC) [Entitic vol] 92.2 fL 81-99 [facility] Magnesiumon 05-15-2025 Magnesium [Mass/Vol] 2.0 mg/dL Normal 1.5-2.2 [facility] Comment on above: Performed By: #### L 100.0100, L501.5200, L501.9520, L500.2500 #### [facility] [address] [place] [address], [address] Magnesium measurement (mass/ volume)Ordered By: Bhavin Quinn on 05-15-2025 Magnesium (Unsp spec) [Mass/Vol] 2.0 mg/dL 1.5-2.2 [facility] Mean corpuscular hemoglobin (MCH) determinationOrdered By: Bhavin Quinn on 05-15-2025 MCH (RBC) [Entitic mass] 30.7 pg 27.0-32.0 [facility] Mean corpuscular hemoglobin concentration (MCHC) determinationOrdered By: Bhavin Quinn on 05-15-2025 MCHC (RBC) [Mass/Vol] 33.3 g/dL 32-36 [facility] Mean platelet volume determi nationOrdered By: Bhavin Quinn on 05-15-2025 Platelet mean volume (Bld) [Entitic vol] 9.7 fL 6.2-12.0 [facility] Microscopic analysis of urin e for red blood cells (RBC)Ordered By: Bhavin Quinn on 05-15-2025 Microscopic analysis of urine for red blood cells (RBC) 0 SEEN /hpf 0-5 [facility] Monocyte percentageOrdered B y: Bhavin Quinn on 09-21-2025 Monocytes/100 WBC (Bld) 7.4 % 0-10 [facility] Mucus LM Ql (Urine sed)Order ed By: Bhavin Quinn on 05-15-2025 Mucus Ql (Urine sed) 0 SEEN /hpf [facility] Neutrophil percentageOrdered By: Bhavin Quinn on 05-15-2025 Neutrophils/100 WBC (Bld) 69.9 % 47-70 [facility] Nitrite Test strip Ql (U)Ord ered By: Bhavin Quinn on 05-15-2025 Nitrite Ql (U) Negative Negative [facility] Nucleated red blood cell per centageOrdered By: Bhavin Quinn on 05-15-2025 Nucleated RBC/100 WBC (Bld) [Ratio] 0 % 0-5 [facility] Platelet countOrdered By: Yahaira Quinn on 05-15-2025 Platelets (Bld) [#/Vol] 285 10*3/uL 150-450 [facility] Potassium measurement (mass/ volume)Ordered By: Bhavin Quinn on 05-15-2025 Potassium (Unsp spec) [Mass/Vol] 3.7 mmol/L 3.3-5.1 [facility] Comment on above: Hemolysis present, R esults could be affected. Protein Test strip Ql (U)Ord ered By: Bhavin Quinn on 05-15-2025 Protein Ql (U) Negative Negative [facility] RBC Auto (Bld) [#/Vol]Ordere d By: Bhavin Quinn on 05-15-2025 RBC (Bld) [#/Vol] 4.36 10*6/uL 4.2-5.4 [facility] Serum creatinine measurement (mass/volume)Ordered By: Bhavin Quinn on 05-15-2025 Creatinine [Mass/Vol] 0.68 mg/dL Low 0.70-1.20 [facility] Serum glucose measurement (m ass/volume)Ordered By: Bhavin Quinn on 05-15-2025 Glucose [Mass/Vol] 163 mg/dL High 70-99 [facility] Serum or plasma calcium maria elena urement (mass/volume)Ordered By: Bhavin Quinn on 05-15-2025 Calcium [Mass/Vol] 9.2 mg/dL 7.6-11.0 [facility] Serum or plasma urea nitroge n measurement (mass/volume)Ordered By: Bhavin Quinn on 05-15-2025 Urea nitrogen [Mass/Vol] 7 mg/dL 4-19 [facility] Sodium levelOrdered By: Elgin Quinn on 05-15-2025 Sodium [Moles/Vol] 142 mmol/L 133-145 [facility] Squamous epithelial cells de tection in urine sediment by light microscopyOrdered By: Bhavin Quinn on 05-15-2025 Epithelial cells.squamous LM Ql (Urine sed) 0-5 SEEN /hpf 5-10 [facility] TSH DL <= 0.005 mIU/L QnOrde red By: Bhavin Quinn on 05-15-2025 TSH Qn 0.570 uIU/mL 0.300-4.200 [facility] Thyroid Stim Hormone (TSH)on 05-15-2025 TSH 0.570 uIU/mL Normal 0.300-4.200 [facility] Comment on above: Performed By: #### L 100.0100, L501.5200, L501.9520, L500.2500 #### [facility] [address] [place], [place], [id number] Urinalysis, Completeon 05-15 BACTERIA 4+ /hpf Normal None Seen [facility] Comment on above: Order Comment: ALEKSANDAR CTOR TO SPECIFY Performed By: #### L 400.0001 #### [facility] [address] [place], [address] EPI,SQUAMOUS 0-5 SEEN Normal 5-10 [facility] Comment on above: Order Comment: ALEKSANDAR CTOR TO SPECIFY Performed By: #### L 400.0001 #### [facility] [address] [place], [address] WBC 0-5 SEEN Normal 0-5 [facility] Comment on above: Order Comment: ALEKSANDAR CTOR TO SPECIFY Performed By: #### L 400.0001 #### [facility] [address] [place], [address] Mucus Ql (Urine sed) 0 SEEN Normal [facility] Comment on above: Order Comment: ALEKSANDAR CTOR TO SPECIFY Performed By: #### L 400.0001 #### [facility] [address] [place], [place], [id number] RBC 0 SEEN Normal 0-5 [facility] Comment on above: Order Comment: ALEKSANDAR CTOR TO SPECIFY Performed By: #### L 400.0001 #### [facility] [address] [place], [place], [id number] Urine clarityOrdered By: Kelvin Quinn on 05-15-2025 Clarity (U) Sl. Cloudy Clear [facility] Urine color determinationOrd ered By: Bhavin Quinn on 05-15-2025 Color (U) Yellow Yellow [facility] Urine cultureOrdered By: Kelvin Quinn on 05-15-2025 Bacteria identified Cx Nom (U) ESBL Escherichia coli Abnormal [facility] Urine glucose detectionOrder ed By: Bhavin Quinn on 05-15-2025 Glucose Ql (U) 1000 mg/dl High Normal [facility] Urine leukocyte esterase det ection by dipstickOrdered By: Bhavin Quinn on 05-15-2025 Leukocyte esterase Test strip Ql (U) 25 /ul High Negative [facility] Urine pHOrdered By: Bhavin lewis on 05-15-2025 pH (U) 6.0 [pH] 5.0 - 8.0 [facility] Urine sediment bacteria coun t by microscopy (number/high power field)Ordered By: Bhavin Quinn on 05-15-2025 Bacteria LM.HPF (Urine sed) [#/Area] 4 /[HPF] None Seen [facility] Urine specific gravity measu rementOrdered By: Bhavin Quinn on 05-15-2025 Specific gravity (U) [Rel density] 1.010 1.002-1.030 [facility] Urine urobilinogen measureme ntOrdered By: Bhavin Quinn on 05-15-2025 Urobilinogen Ql (U) Normal mg/dl Normal [facility] White blood cell (WBC) count Ordered By: Bhavin Quinn on 05-15-2025 WBC (Bld) [#/Vol] 15.5 10*3/uL High 4.4-11.0 [facility] White blood cell countOrdere d By: Bhavin Quinn on 05-15-2025 White blood cell count 0-5 SEEN /hpf 0-5 [facility] CNPNon 05-10-2025 CNPN Telephone (FAMPWS) IVET VALERO ([id number]) 1955 F Date Time Provider Department 05/10/25 SMILEY MELO During your visit today, we recorded the following information about you: Diane Guillermo RN 05/10/2025 11:09 AM Signed Megha HERNANDEZ Machinist Mechanic with [facility] called I about Pt's insurance PA for the Phenergan suppository. The Reference # is [id number], she states they will fax the recommendation [...] every 6 hours as needed. - Insulin Keldron, Disposable, (BD ULTRA-FINE MINDY PEN NEEDLE) 32 [...] mg by mouth once daily. - Insulin Keldron, Disposable, 32 gauge x 5/16 ndle Use [...] incontinence [N3 (more content not included)... [facility] CNOVon 05-06-2025 CNOV Office Visit (FAMPWS ) IVET VALERO ([id number]) 1955 F Date Time Provider Department 05/06/25 8:40 AM [facility] During your visit today, we recorded the following information about you: Temperature Pulse Blood pressure Weight 97.8 degrees 103/minute 132/76 102.5 kg Smiley Melo APRN.[employer]UM PLANT OPERATOR 05/06/2025 9:13 AM Signed This is a [...] 6 hours as needed for nausea/vomiting. Insulin Keldron, Disposable, (BD ULTRA-FINE MINDY PEN NEEDLE) 32 [...] busPIRone (BUSP (more content not included)... Normal [facility]) IVET VALERO ([id number]) 1955 F Date Time Provider Department 04/07/25 [facility] During your visit today, we recorded [...] with meals for 7 days. - Insulin Keldron, Disposable, (BD ULTRA-FINE MINDY PEN NEEDLE) 32 [...] mg by mouth once daily. - Insulin Keldron, Disposable, 32 gauge x 5/16 ndle Use [...] with h (more content not included)... Normal [facility] Bacteria Ur Culton Bacteria identified Cx [...] , Intermediate >32 , Resistant >64 Abnormal [facility] Comment on above: Performed By: #### 6 30-4, 09838-1 ####[facility] LABCLIA [id number] [address] [facility] CNOVon 03-29-2025 CNOV Office Visit (FAMPWS ) ANJUMEKYANNAH Joe ([id number]) 1955 F Date Time Provider Department 03/29/25 11:20 AM [facility] your visit today, we recorded the [...] 300 mg by mouth once daily. Insulin Keldron, Disposable, 32 gauge x 5/16 ndle Use four times daily with insulin QUEtiapine XR (SEROQUEL XR) 300 mg 24 hr tablet Take 300 mg by mouth daily at bedtime. Blood Pressure Monitor EXLARGE BLOOD PRESSURE CUFF MONITOR KIT checking bp 4 times daily Insulin Keldron, Disposable, (BD ULTRA-FINE MINDY PEN NEEDLE) 32 [...] U-300 conc (more content not included)... Normal [facility] Urinalysis complete panel (U )on 03-29-2025 BACTERIA UL >9821 High Negative [facility] Comment on above: Order Comment: Speci men Type: URINE SPECIMENOrdering Facility: [facility] Address: [address] [place] [address] Performed By: #### 6 30-4, 23005-5 ####[facility] LABCLIA [id number] [address] [place] [address] [place] Bilirubin Ql (U) Negative Normal Negative [facility] Comment on above: Order Comment: Speci men Type: URINE SPECIMENOrdering Facility: [facility] Address: [address] [place] [address] Performed By: #### 6 30-4, 48645-1 ####[facility] LABCLIA [id number] [address] [place] [address] [place] Clarity (Unsp spec) Cloudy Abnormal Clear [facility] Comment on above: Order Comment: Speci men Type: URINE SPECIMENOrdering Facility: [facility] Address: [address] [place] [address] Performed By: #### 6 30-, 33129-7 ####[facility] LABCLIA [id number] [address] [place] [address] [place] Color (U) Yellow Normal Yellow [facility] Comment on above: Order Comment: Speci men Type: URINE SPECIMENOrdering Facility: [facility] Address: [address] [place] [address] Performed By: #### 6 30-4, 11933-2 ####[facility] LABCLIA [id number] [address] [place] [address] [place] Epithelial cells LM.HPF (Urine sed) [#/Area] None Seen Normal [facility] Comment on above: Order Comment: Speci men Type: URINE SPECIMENOrdering Facility: [facility] Address: [address] [place] [address] Performed By: #### 6 30-4, 03954-9 ####[facility]CLIA [id number] [address] [place] [address] [place] Glucose Test strip (U) [Mass/Vol] 3+ Abnormal Negative [facility] Comment on above: Order Comment: Speci men Type: URINE SPECIMENOrdering Facility: [facility] Address: [address] [place] [address] Performed By: #### 6 30-4, 79663-6 ####[facility]CLIA [id number] [facility] [address], [facility] [place] Hemoglobin Ql (U) Trace Abnormal Negative [facility] Comment on above: Order Comment: Speci men Type: URINE SPECIMENOrdering Facility: [facility] Address: [address] [place] [address] Performed By: #### 6 30-4, 52305-1 ####[facility]CLIA [id number] [facility] [address], [facility] [place] Hyaline casts (Urine sed) [#/Area] 0 /[LPF] Normal 0 /LPF [facility] Comment on above: Order Comment: Speci men Type: URINE SPECIMENOrdering Facility: [facility] Address: [address] [place] [address] Performed By: #### 6 30-4, 91084-3 ####[facility]CLIA [id number] [address], [address] [place] Ketones Ql (U) Negative Normal Negative [facility] Comment on above: Order Comment: Speci men Type: URINE SPECIMENOrdering Facility: [facility] Address: [address] [place] [address] Performed By: #### 6 30-4, 60945-6 ####[facility] LABCLIA [id number] [place] [id number] [place] Leukocyte esterase Test strip Ql (U) 2+ Abnormal Negative [facility] Comment on above: Order Comment: Speci men Type: URINE SPECIMENOrdering Facility: [facility] Address: [address] [place] [address] Performed By: #### 6 30-4, 21932-9 ####[facility] LABCLIA [id number] [place] [address] [place] Nitrite Ql (U) Negative Normal Negative [facility] Comment on above: Order Comment: Speci men Type: URINE SPECIMENOrdering Facility: [facility] Address: [address] [place] [address] Performed By: #### 6 30-4, 66914-3 ####[facility] LABIA [id number] [place] [address] [place] pH (U) 5.5 [pH] Normal 5.0-8.0 [facility] Comment on above: Order Comment: Speci men Type: URINE SPECIMENOrdering Facility: [facility] Address: [address] [place] [address] Performed By: #### 6 30-4, 84194-1 ####[facility] LABIA [id number] [place] [address] [place] Protein (U) [Mass/Vol] Trace Abnormal Negative Cl [facility] Comment on above: Order Comment: Speci men Type: URINE SPECIMENOrdering Facility: [facility] Address: [address] [place] [address] Performed By: #### 6 30-4, 67052-1 ####[facility] LABIA [id number] [place] [address] [place] RBC LM.HPF (Urine sed) [#/Area] 6-10 /HPF Abnormal 0-2 /HPF [facility] Comment on above: Order Comment: Speci men Type: URINE SPECIMENOrdering Facility: [facility] Address: [address] [place] [address] Performed By: #### 6 30-4, 89522-8 ####[facility] LABIA [id number] [place] [address] [place] Specific gravity (U) [Rel density] 1.020 Normal 1.005-1.030 [facility] Comment on above: Order Comment: Speci men Type: URINE SPECIMENOrdering Facility: [facility] Address: [address] [place] [address] Performed By: #### 6 30-4, 55073-7 ####[facility] LABCLIA [id number] [place] [address] [place] Urobilinogen Ql (U) 0.2 EU/dL Normal 0.2-1.0 EU/dL [facility] Comment on above: Order Comment: Speci men Type: URINE SPECIMENOrdering Facility: [facility] Address: [address] [place] [address] Performed By: #### 6 30-4, 03632-6 ####[facility] LABIA [id number] [place] [address] [place] WBC LM.HPF (Urine sed) [#/Area] /[HPF] Abnormal 0-5 /HPF [facility] Comment on above: Order Comment: Speci men Type: URINE SPECIMENOrdering Facility: [facility] Address: [address] [place] [address] Performed By: #### 6 30-4, 97842-1 ####[facility] LABIA [id number] [place] [address] [place] Yeast.budding LM.HPF (Urine sed) [#/Area] Present Abnormal None Seen [facility] Comment on above: Order Comment: Speci men Type: URINE SPECIMENOrdering Facility: [facility] Address: [address] [place] [address] Performed By: #### 6 30-4, 64430-7 ####[facility] LABCLIA [id number] [place] [address] [place] Yeast.hyphae LM.HPF (Urine sed) [#/Area] Present Abnormal None Seen [facility] Comment on above: Order Comment: Speci men Type: URINE SPECIMENOrdering Facility: [facility] Address: [address] [place] [address] Performed By: #### 6 30-4, 95030-5 ####[facility] LABCLIA [id number] [place] [address] [place] XR CHEST 2V [...] degenerative changes. IMPRESSION: No acute radiographic abnormality. Final Touch Up Painter: JOHNIE Transcribe Date/Time: Mar 29 2025 2:28P Dictated by : MCKENZIE CURTIS MD This examination was interpreted and the report reviewed and electronically signed by: MCKENZIE CURTIS MD on Mar 29 2025 2:29PM EST [id number] Normal [facility] IVET VALERO ([id number]) 1955 F Date Time Provider Department 03/24/25 RICCI COLE FAMPWS During your visit today, we recorded the following information about you: Yasmany Willis RN 03/24/2025 10:23 AM [facility] reports pt's incontinent supplies request was denied of payment due to not reimburseable. [facility] pcp can appeal or go through [...] up to 38 units tid. - Insulin Keldron, Disposable, (BD ULTRA-FINE MINDY PEN NEEDLE) 32 [...] mg by mouth once daily. - Insulin Keldron, Disposable, 32 gauge x 516 ndle Use [...] Diagnosed: 07/26 (more content not included)... Normal [facility] CNOVon 03-10-2025 CNOV Office Visit (FAMPWS ) IVET VALERO ([id number]) 1955 F Date Time Provider Department 03/10/25 10:40 AM SMILEY MELO FAMPWS During your visit today, we recorded the following information about you: Temperature Pulse Blood pressure 99 degrees 110/minute 140/78 Smiley Melo, PEDIATRIC ASSOCIATE.[employer] OPER[employer] 03/10/2025 11:00 AM Signed This is a [...] scale up to 38 units tid. Insulin Keldron, Disposable, (BD ULTRA-FINE MINDY PEN NEEDLE) 32 [...] 300 mg by mouth once daily. Insulin Keldron, Disposable, 32 gauge x 5/16 ndle Use four times daily with insulin QUEtiapine XR (SEROQUEL XR) 300 mg 24 hr tablet Take 300 mg by mouth daily at bedtime. Blood Pressure Monitor EXLARGE BLOOD PRESSURE CUFF MO (more content not included)... Normal [facility] Urinalysis complete panel (U )on 03-10-2025 BACTERIA UL >9821 High Negative [facility] Comment on above: Order Comment: Speci men Type: URINE SPECIMEN [facility]ing Facility: [facility] Address: [address] [place] [address] Performed By: #### 2 4356-8 #### [facility] CLIA [id number] [address] [place] [address] [place] Bilirubin Ql (U) Negative Normal Negative [facility] Comment on above: Order Comment: Speci men Type: URINE SPECIMEN [facility]ing Facility: [facility] Address: [address] [place] [address] Performed By: #### 2 4356-8 #### [facility] CLIA [id number] [address] [place] [address] [place] Clarity (Unsp spec) Clear Normal Clear [facility] Comment on above: Order Comment: Speci men Type: URINE SPECIMEN [facility]ing [facility]: [facility] Address: [address] [place] [address] Performed By: #### 2 4356-8 #### [facility] CLIA [id number] [address] [place] [address] [place] Color (U) Yellow Normal Yellow [facility] Comment on above: Order Comment: Speci men Type: URINE SPECIMEN [facility]ing Facility: [facility] Address: [address] [place] [address] Performed By: #### 2 4356-8 #### [facility] CLIA [id number] [address] [place] [address] [place] Epithelial cells LM.HPF (Urine sed) [#/Area] Few Normal [facility] Comment on above: Order Comment: Speci men Type: URINE SPECIMEN [facility]ing Facility: [facility] Address: [address] [place] [address] Performed By: #### 2 4356-8 #### [facility] CLIA [id number] [address] [place] [address] [place] Glucose Test strip (U) [Mass/Vol] 3+ Abnormal Negative [facility] Comment on above: Order Comment: Speci men Type: URINE SPECIMEN [facility]ing Facility: [facility] Address: [address] [place] [address] Performed By: #### 2 4356-8 #### [facility] CLIA [id number] [address] [place] [address] [place] Hemoglobin Ql (U) Negative Normal Negative [facility] Comment on above: Order Comment: Speci men Type: URINE SPECIMEN [facility]ing Facility: [facility] Address: [address] [place] [address] Performed By: #### 2 4356-8 #### [facility] CLIA [id number] [address] [place] [address] [place] Hyaline casts (Urine sed) [#/Area] 1-3 /LPF Abnormal 0 /LPF [facility] Comment on above: Order Comment: Speci men Type: URINE SPECIMEN [facility]ing Facility: [facility] Address: [address] [place] [address] Performed By: #### 2 4356-8 #### [facility] CLIA [id number] [address] [place], [place] [address] [place] Ketones Ql (U) Trace Abnormal Negative [facility] Comment on above: Order Comment: Speci men Type: URINE SPECIMEN [facility]ing Facility: [facility] Address: [address] [place] [address] Performed By: #### 2 4356-8 #### [facility] CLIA [id number] [address] [place] [address] [place] Leukocyte esterase Test strip Ql (U) Negative Normal Negative [facility] Comment on above: Order Comment: Speci men Type: URINE SPECIMEN [facility]ing Facility: [facility] Address: [address] [place] [address] Performed By: #### 2 4356-8 #### [facility] CLIA [id number] [address] [place] [address] [place] Nitrite Ql (U) Positive Abnormal Negative [facility] Comment on above: Order Comment: Speci men Type: URINE SPECIMEN [facility]ing Facility: [facility] Address: [address] [place] [address] Performed By: #### 2 4356-8 #### [facility] CLIA [id number] [address] [place] [address] [place] pH (U) 5.5 [pH] Normal 5.0-8.0 [facility] Comment on above: Order Comment: Speci men Type: URINE SPECIMEN [facility]ing Facility: [facility] Address: [address] [place] [address] Performed By: #### 2 4356-8 #### [facility] CLIA [id number] [address] [place] [address] [place] Protein (U) [Mass/Vol] Trace Abnormal Negative [facility] Comment on above: Order Comment: Speci men Type: URINE SPECIMEN [facility]ing Facility: [facility] Address: [address] [place] [address] Performed By: #### 2 4356-8 #### [facility] CLIA [id number] [address] [place] [address] [place] RBC LM.HPF (Urine sed) [#/Area] 0-2 /HPF Normal 0-2 /HPF [facility] Comment on above: Order Comment: Speci men Type: URINE SPECIMEN [facility]ing [facility]: [facility] Address: [address] [place] [address] Performed By: #### 2 4356-8 #### [facility] CLIA [id number] [address] [place] [address] [place] Specific gravity (U) [Rel density] 1.023 Normal 1.005-1.030 [facility] Comment on above: Order Comment: Speci men Type: URINE SPECIMEN [facility]ing Facility: [facility] Address: [address] [place] [address] Performed By: #### 2 4356-8 #### [facility] CLIA [id number] [address] [place] [address] [place] Urobilinogen Ql (U) 0.2 EU/dL Normal 0.2-1.0 EU/dL [facility] Comment on above: Order Comment: Speci men Type: URINE SPECIMEN [facility]ing Facility: [facility] Address: [address] [place] [address] Performed By: #### 2 4356-8 #### [facility] CLIA [id number] [address] [place] [address] [place] WBC LM.HPF (Urine sed) [#/Area] 6-10 /HPF Abnormal 0-5 /HPF [facility] Comment on above: Order Comment: Speci men Type: URINE SPECIMEN Ordering Facility: [facility] Address: [address] [place] [address] Performed By: #### 2 4356-8 #### [facility] CLIA [id number] [address] [place] [address] [place] Yeast.budding LM.HPF (Urine sed) [#/Area] Present Abnormal None Seen [facility] Comment on above: Order Comment: Speci men Type: URINE SPECIMEN [facility]ing Facility: [facility] Address: [address] [place] [address] Performed By: #### 2 4356-8 #### [facility] CLIA [id number] [address] [place] [address] [place] Eric 03-09-2025 [facility] Telephone (FAMPWS) ANJUMIVET Diaz ([id number]) 1955 F Date Time Provider Department 03/09/25 [...] call and antibiotic in for her to [facility] in [place]. Please call and advise. NITIN Joel William [...] up to 38 units tid. - Insulin Keldron, Disposable, (BD ULTRA-FINE MINDY PEN NEEDLE) 32 [...] mg by mouth once daily. - Insulin Keldron, Disposable, 32 gauge x 5/16 ndle Use [...] Acute bron (more content not included)... Normal [facility] 25(OH)D3 Jan-Negar 2024 25-hydroxyvitamin D3 [Mass/Vol] 16.6 ng/mL Low 31.0-80.0 [facility] Comment on above: Order Comment: Speci men Type: BLOOD SPECIMENOrdering Facility: [facility] Address: [address] [place] [address] Result Comment: Clas sification of 25 [place] Vitamin D status: Deficiency/Insufficiency: < or = 30 ng/ml. Sufficiency/Optimal Levels: 31-80 ng/mL Toxicity: > 100 ng/mL. Test performed by chemiluminescent immunoassay. Performed By: #### 1 989-3 ####[facility] LABCLIA [id number] [address] [address] [place] 25-hydroxyvitamin D3 [Mass/V ol]on 03-01-2025 Interpretation and review of laboratory results Abnormal [facility] The reference range interval was based on an analysis of samples from healthy adults and may not pertain to children from 0-18 years old. [facility] ALBUMIN/CREATININE RATIO, UR INEon 03-01-2025 Albumin DL <= 20 mg/L (U) [Mass/Vol] 39.7 mg/L Normal [facility] Comment on above: Order Comment: Speci men Type: URINE SPECIMENOrdering Facility: [facility] Address: [address] [place] [address] Performed By: #### U ACR ####[facility]CLIA [id number] [address] [place] [address] [place] Albumin/Creatinine (U) [Mass ratio] 46 mg/g High <30 [facility] Comment on above: Order Comment: Speci men Type: URINE SPECIMENOrdering Facility: [facility] Address: [address] [place] [address] Result Comment: Adul t Male and Female Nephrotic Criteria: <30 mg/g is considered normal to mildly increased 30-300 mg/g is considered moderately increased >300 mg/g is considered severely increased KDIGO. (2013). KDIGO 2012 Clinical Practice Guideline for the Evaluation and Management of Chronic Kidney Disease. Official Journal of the International Society of Nephrology, 3(1), 1-150. Performed By: #### U ACR ####[facility]IA [id number] [address] [place] [address] [place] Creatinine (U) [Mass/Vol] 86.7 mg/dL Normal 20.0-300.0 [facility] Comment on above: Order Comment: Speci men Type: URINE SPECIMENOrdering Facility: [facility] Address: [address] [place] [address] Performed By: #### U ACR ####[facility]CLIA [id number] [facility] [place] [address] [place] Bacteria Ur Culton [...] , Intermediate >32 , Resistant >64 Abnormal [facility] Comment on above: Performed By: #### 6 30-4 ####[facility]CLIA [id number] [address] [facility] CBC W Auto Differential pane l (Bld)on 03-01-2025 Basophils (Bld) [#/Vol] 0.07 10*3/uL [facility] Basophils/100 WBC (Bld) 0.5 % [facility] Differential cell count method Nom (Bld) Auto [facility] Eosinophils (Bld) [#/Vol] 0.15 10*3/uL [facility] Eosinophils/100 WBC (Bld) 1.2 % [facility] Erythrocyte distribution width (RBC) [Ratio] 13.2 % 11.5 - 15.0 % [facility] Hematocrit (Bld) [Volume fraction] 43.8 % 36.0 - 46.0 % [facility] Hemoglobin (Bld) [Mass/Vol] 14 g/dL 11.5 - 15.5 g/dL [facility] Immature granulocytes (Bld) [#/Vol] 0.08 10*3/uL [facility] Immature granulocytes/100 WBC (Bld) 0.6 % [facility] Interpretation and review of laboratory results Abnormal [facility] Lymphocytes (Bld) [#/Vol] 2.88 10*3/uL [facility] Lymphocytes/100 WBC (Bld) 22.4 % [facility] MCH (RBC) [Entitic mass] 30.5 pg 26. 0 - 34.0 pg [facility] MCHC (RBC) [Mass/Vol] 32 g/dL 30.5 - 36.0 g/dL [facility] MCV (RBC) [Entitic vol] 95.4 fL 80.0 - 100.0 fL [facility] Monocytes (Bld) [#/Vol] 0.77 10*3/uL [facility] Monocytes/100 WBC (Bld) 6 % C [facility] Neutrophils (Bld) [#/Vol] 8.89 10*3/uL High [facility] Neutrophils/100 WBC (Bld) 69.3 % [facility] Nucleated RBC (Bld) [#/Vol] NINF [facility] Nucleated RBC/100 WBC (Bld) [Ratio] 0 % /100 WBC [facility] Platelet mean volume (Bld) [Entitic vol] 9.6 fL 9.0 - 12.7 fL [facility] Platelets (Bld) [#/Vol] 362 10*3/uL [facility] RBC (Bld) [#/Vol] 4.59 10*6/uL 3.90 - 5.2 0 m/uL [facility] WBC (Bld) [#/Vol] 12.84 10*3/uL High [facility] Basophils (Bld) [#/Vol] 0.07 10*3/uL Normal <0.11 [facility] Comment on above: Order Comment: Speci men Type: BLOOD SPECIMEN Ordering Facility: [facility] Address: [address] [place] [address] Performed By: #### 5 7021-8 #### [facility] CLIA [id number] [address] [place] [address] [place] Basophils/100 WBC (Bld) 0.5 % Normal [facility] Comment on above: Order Comment: Speci men Type: BLOOD SPECIMEN Ordering Facility: [facility] Address: [address] [place] [address] Performed By: #### 5 7021-8 #### [facility] CLIA [id number] [address] [place] [address] [place] Differential cell count method Nom (Bld) Auto Normal [facility] Comment on above: Order Comment: Speci men Type: BLOOD SPECIMEN Ordering Facility: [facility] Address: [address] [place] [address] Performed By: #### 5 7021-8 #### [facility] CLIA [id number] [address] [place] [address] [place] Eosinophils (Bld) [#/Vol] 0.15 10*3/uL Normal <0.46 [facility] Comment on above: Order Comment: Speci men Type: BLOOD SPECIMEN Ordering Facility: [facility] Address: [address] [place] [address] Performed By: #### 5 7021-8 #### [facility] CLIA [id number] [address] [place] [address] [place] Eosinophils/100 WBC (Bld) 1.2 % [facility] Comment on above: Order Comment: Speci men Type: BLOOD SPECIMEN Ordering Facility: [facility] Address: [address] [place] [address] Performed By: #### 5 7021-8 #### [facility] CLIA [id number] [address] [place] [address] [place] Erythrocyte distribution width (RBC) [Ratio] 13.2 % Normal 11.5-15.0 [facility] Comment on above: Order Comment: Speci men Type: BLOOD SPECIMEN Ordering Facility: [facility] Address: [address] [place] [address] Performed By: #### 5 7021-8 #### [facility] CLIA [id number] [address] [place] [address] [place] Hematocrit (Bld) [Volume fraction] 43.8 % Normal 36.0-46.0 [facility] Comment on above: Order Comment: Speci men Type: BLOOD SPECIMEN Ordering Facility: [facility] Address: [address] [place] [address] Performed By: #### 5 7021-8 #### [facility] CLIA [id number] [address] [place] [address] [place] Hemoglobin (Bld) [Mass/Vol] 14.0 g/dL Normal 11.5-15.5 [facility] Comment on above: Order Comment: Speci men Type: BLOOD SPECIMEN Ordering Facility: [facility] Address: [address] [place] [address] Performed By: #### 5 7021-8 #### [facility] CLIA [id number] [address] [place] [address] [place] Immature granulocytes (Bld) [#/Vol] 0.08 10*3/uL Normal <0.10 [facility] Comment on above: Order Comment: Speci men Type: BLOOD SPECIMEN Ordering Facility: [facility] Address: [address] [place] [address] Performed By: #### 5 7021-8 #### [facility] CLIA [id number] [address] [place] [address] [place] Immature granulocytes/100 WBC (Bld) 0.6 % Normal [facility] Comment on above: Order Comment: Speci men Type: BLOOD SPECIMEN Ordering Facility: [facility] Address: [address] [place] [address] Performed By: #### 5 7021-8 #### [facility] CLIA [id number] [address] [place] [address] [place] Lymphocytes (Bld) [#/Vol] 2.88 10*3/uL Normal 1.00-4.00 [facility] Comment on above: Order Comment: Speci men Type: BLOOD SPECIMEN Ordering Facility: [facility] Address: [address] [place] [address] Performed By: #### 5 7021-8 #### [facility] CLIA [id number] [address] [place] [address] [place] Lymphocytes/100 WBC (Bld) 22.4 % Normal [facility] Comment on above: Order Comment: Speci men Type: BLOOD SPECIMEN Ordering Facility: [facility] Address: [address] [place] [address] Performed By: #### 5 7021-8 #### [facility] CLIA [id number] [address] [place] [address] [place] MCH (RBC) [Entitic mass] 30.5 pg Normal 26.0-34.0 [facility] Comment on above: Order Comment: Speci men Type: BLOOD SPECIMEN Ordering Facility: [facility] Address: [address] [place] [address] Performed By: #### 5 7021-8 #### [facility] CLIA [id number] [address] [place] [address] [place] MCHC (RBC) [Mass/Vol] 32.0 g/dL Normal 30.5-36.0 [facility] Comment on above: Order Comment: Speci men Type: BLOOD SPECIMEN Ordering Facility: [facility] Address: [address] [place] [address] Performed By: #### 5 7021-8 #### [facility] CLIA [id number] [address] [place] [address] [place] MCV (RBC) [Entitic vol] 95.4 fL Normal 80.0-100.0 C [facility] Comment on above: Order Comment: Speci men Type: BLOOD SPECIMEN Ordering Facility: [facility] Address: [address] [place] [address] Performed By: #### 5 7021-8 #### [facility] CLIA [id number] [address] [place] [address] [place] Monocytes (Bld) [#/Vol] 0.77 10*3/uL Normal <0.87 [facility] Comment on above: Order Comment: Speci men Type: BLOOD SPECIMEN Ordering Facility: [facility] Address: [address] [place] [address] Performed By: #### 5 7021-8 #### [facility] CLIA [id number] [address] [id number] [address] [place] Monocytes/100 WBC (Bld) 6.0 % Normal C [facility] Comment on above: Order Comment: Speci men Type: BLOOD SPECIMEN Ordering Facility: [facility] Address: [address] [place] [address] Performed By: #### 5 7021-8 #### [facility] CLIA [id number] [address] [place] [address] [place] Neutrophils (Bld) [#/Vol] 8.89 10*3/uL High 1.45-7.50 [facility] Comment on above: Order Comment: Speci men Type: BLOOD SPECIMEN Ordering Facility: [facility] Address: [address] [place] [address] Performed By: #### 5 7021-8 #### [facility] CLIA [id number] [address] [place] [address] [place] Neutrophils/100 WBC (Bld) 69.3 % Normal [facility] Comment on above: Order Comment: Speci men Type: BLOOD SPECIMEN Ordering Facility: [facility] Address: [address] [place] [address] Performed By: #### 5 7021-8 #### [facility] CLIA [id number] [address] [place] [address] [place] Nucleated RBC (Bld) [#/Vol] 10*3/uL Normal <0.01 [facility] Comment on above: Order Comment: Speci men Type: BLOOD SPECIMEN Ordering Facility: [facility] Address: [address] [place] [address] Performed By: #### 5 7021-8 #### [facility] CLIA [id number] [address] [place] [address] [place] Nucleated RBC/100 WBC (Bld) [Ratio] 0.0 /100 WBC Normal [facility] Comment on above: Order Comment: Speci men Type: BLOOD SPECIMEN Ordering Facility: [facility] Address: [address] [place] [address] Performed By: #### 5 7021-8 #### [facility] CLIA [id number] [address] [place] [address] [place] Platelet mean volume (Bld) [Entitic vol] 9.6 fL Normal 9.0-12.7 [facility] Comment on above: Order Comment: Speci men Type: BLOOD SPECIMEN Ordering Facility: [facility] Address: [address] [place] [address] Performed By: #### 5 7021-8 #### [facility] CLIA [id number] [address] [place] [address] [place] Platelets (Bld) [#/Vol] 362 10*3/uL Normal 150-400 [facility] Comment on above: Order Comment: Speci men Type: BLOOD SPECIMEN Ordering Facility: [facility] Address: [address] [place] [address] Performed By: #### 5 7021-8 #### [facility] CLIA [id number] [address] [place] [address] [place] RBC (Bld) [#/Vol] 4.59 10*6/uL Normal 3.90-5.20 [facility] Comment on above: Order Comment: Speci men Type: BLOOD SPECIMEN Ordering Facility: [facility] Address: [address] [place] [address] Performed By: #### 5 7021-8 #### [facility] CLIA [id number] [address] [place] [address] [place] WBC (Bld) [#/Vol] 12.84 10*3/uL High 3.70-11.00 [facility] Comment on above: Order Comment: Speci men Type: BLOOD SPECIMEN Ordering Facility: [facility] Address: [address] [place] [address] Performed By: #### 5 7021-8 #### [facility] CLIA [id number] [address] [place] [address] [facility] CNOVon 03-01-2025 CNOV Office Visit (FAMPWS ) IVET VALERO ([id number]) 1955 F Date Time Provider Department 03/01/25 9:20 AM [facility] During your visit today, we recorded the [...] MD (Endocrinology) Friend, Dylan Huffman DO as Building Operator (Gastroenterology) Nanci Huber APRN.CNP as Salesperson Jewelry (Family Medicine) Smiley Melo APRN.CNP as Salesperson Jewelry (Family Medicine) Concerns today: Cough, congestion and [...] disorder, n (more content not included)... Normal [facility] Comprehensive metabolic 2000 panelon 03-01-2025 Albumin [Mass/Vol] 4.0 g/dL Normal 3.9-4.9 [facility] Comment on above: Order Comment: Speci men Type: BLOOD SPECIMENOrdering Facility: [facility] Address: [address] [place] [address] Performed By: #### L IPNF, 60445-6, 89280-8, 3016-3 ####[facility] [id number] [place] [address] [place] ALP [Catalytic activity/Vol] 67 U/L Normal 34-123 [facility] Comment on above: Order Comment: Speci men Type: BLOOD SPECIMENOrdering Facility: [facility] Address: [address] [place] [address] Performed By: #### L IPNF, 84188-2, 63476-8, 3016-3 ####[facility] [id number] [place] [address] [place] ALT [Catalytic activity/Vol] 14 U/L Normal 7-38 [facility] Comment on above: Order Comment: Speci men Type: BLOOD SPECIMENOrdering Facility: [facility] Address: [address] [place] [address] Performed By: #### L IPNF, 96337-9, 93228-1, 3016-3 ####[facility] [id number] [address] [address] [place] Anion gap [Moles/Vol] 13 mmol/L Normal 8-15 [facility] Comment on above: Order Comment: Speci men Type: BLOOD SPECIMENOrdering Facility: [facility] Address: [address] [place] [address] Performed By: #### L IPNF, , 84083-3, 3016-3 ####[facility] [id number] [place] [address] [place] AST [Catalytic activity/Vol] 22 U/L Normal 13-35 [facility] Comment on above: Order Comment: Speci men Type: BLOOD SPECIMENOrdering Facility: [facility] Address: [address] [place] [address] Performed By: #### L IPNF, , 18551-4, 3016-3 ####[facility] [id number] [place] [address] [place] Bilirubin [Mass/Vol] 0.4 mg/dL Normal 0.2-1.3 [facility] Comment on above: Order Comment: Speci men Type: BLOOD SPECIMENOrdering Facility: [facility] Address: [address] [place] [address] Performed By: #### L IPNF, 13222-8, 76456-8, 3016-3 ####[facility] [id number] [address] [address] [place] Calcium [Mass/Vol] 9.5 mg/dL Normal 8.5-10.2 [facility] Comment on above: Order Comment: Speci men Type: BLOOD SPECIMENOrdering Facility: [facility] Address: [address] [place] [address] Performed By: #### L IPNF, 55770-7, 61531-2, 3016-3 ####[facility] [id number] [place] [address] [place] Chloride [Moles/Vol] 101 mmol/L Normal 98-107 [facility] Comment on above: Order Comment: Speci men Type: BLOOD SPECIMENOrdering Facility: [facility] Address: [address] [place] [address] Performed By: #### L IPNF, , 18436-7, 6-3 ####[facility] [id number] [place] [address] [place] CO2 [Moles/Vol] 22 mmol/L Normal 22-30 [facility] Comment on above: Order Comment: Speci men Type: BLOOD SPECIMENOrdering Facility: [facility] Address: [address] [place] [address] Performed By: #### L IPJOSE LUIS, , 10414-2, 6-3 ####[facility] [id number] [place] [address] [place] Creatinine [Mass/Vol] 0.64 mg/dL Normal 0.58-0.96 [facility] Comment on above: Order Comment: Speci men Type: BLOOD SPECIMENOrdering Facility: [facility] Address: [address] [place] [address] Performed By: #### L IPNF, , 85146-3, 3016-3 ####[facility] [id number] [address] [address] [place] Creatinine and Glomerular filtration rate.predicted panel (S/P/Bld) 97 mL/min/1.73m??? Normal >=60 [facility] Comment on above: Order Comment: Jessica frank Type: BLOOD SPECIMENOrdering Facility: [facility] Address: [address] [place] [address] Result Comment: Odalis mated Glomerular Filtration Rate [...] GFR. Performed By: #### L IPJOSE LUIS, 37703-2, 60907-4, 6-3 ####[facility] [id number] [address] [address] [place] Glucose [Mass/Vol] 263 mg/dL High 74-99 [facility] Comment on above: Order Comment: Jessica frank Type: BLOOD SPECIMENOrdering Facility: [facility] Address: [address] [place] [address] Result Comment: The [place] Diabetes Association (ADA) provides guidance for cutoff [...] Standards of Medical Care in Diabetes 2016, [place] Diabetes Association. Diabetes Care. 2016.39(Suppl 1). Performed By: #### L IPNF, 44457-6, 07024-5, 6-3 ####[facility] [id number] [address] [address] [place] Potassium [Moles/Vol] 5.0 mmol/L Normal 3.7-5.1 [facility] Comment on above: Order Comment: Speci men Type: BLOOD SPECIMENOrdering Facility: [facility] Address: [address] [place] [address] Performed By: #### L IPNF, , 40093-8, 3015-3 ####[facility] [id number] [address] [place] [address] [place] Protein [Mass/Vol] 6.9 g/dL Normal 6.3-8.0 [facility] Comment on above: Order Comment: Speci men Type: BLOOD SPECIMENOrdering Facility: [facility] Address: [address] [place] [address] Performed By: #### L IPNF, , , 3015-3 ####[facility] [id number] [address] [address] [place] Sodium [Moles/Vol] 136 mmol/L Normal 136-144 [facility] Comment on above: Order Comment: Speci men Type: BLOOD SPECIMENOrdering Facility: [facility] Address: [address] [place] [address] Performed By: #### L IPNF, , , 3015-3 ####[facility] [id number] [address] [address] [place] Urea nitrogen [Mass/Vol] 8 mg/dL Normal 7-21 [facility] Comment on above: Order Comment: Speci men Type: BLOOD SPECIMENOrdering Facility: [facility] Address: [address] [place] [address] Performed By: #### L IPNF, , , 3015-3 ####[facility] [id number] [address] [address] [place] HbA1c (Bld)on 03-01-2025 Average glucose Estimated from glycated hemoglobin (Bld) [Mass/Vol] 180 mg/dL Normal [facility] Comment on above: Order Comment: Jessica monika Type: BLOOD SPECIMENOrdering Facility: [facility] Address: [address] [place] [address] Result Comment: eAG: (Estimated average glucose) is a calculated value from HgbA1c and is escrow representative of the average blood glucose level in the last 2-3 month period. Performed By: #### 5 5454-3 ####[facility] [id number] [place] [address] [place] HbA1c (Bld) [Mass fraction] 7.9 % High 4.3-5.6 [facility] Comment on above: Order Comment: Jessica monika Type: BLOOD SPECIMENOrdering Facility: [facility] Address: [address] [place] [address] Result Comment: [place] Diabetes Association guidelines indicate that patients with HgbA1c in the range 5.7-6.4% are at increased risk for development of diabetes, and intervention by lifestyle modification may be beneficial. HgbA1c greater or equal to 6.5% is considered diagnostic of diabetes. Performed By: #### 5 5454-3 ####[facility] [id number] [place] [address] [place] LIPID PANEL, NONFASTINGon Cholesterol [Mass/Vol] 223 mg/dL High <200 [facility] Comment on above: Order Comment: Jessica monika Type: BLOOD SPECIMENOrdering Facility: [facility] Address: [address] [place] [address] Result Comment: <200 mg/dL, Desirable 200-239 mg/dL, Borderline high >239 mg/dL, High Performed By: #### L IPNF, 61305-1, 80662-4, 3016-3 ####[facility] [id number] [place] [address] [place] HDL CHOLESTEROL, NF 63 mg/dL Normal >39 [facility] Comment on above: Order Comment: Tanneri men Type: BLOOD SPECIMENOrdering Facility: [facility] Address: [facility] [place] [address] Result Comment: 40-5 9 mg/dL, Acceptable >59 mg/dL, High: Negative risk factor for coronary heart disease <40 mg/dL, Low: Positive risk factor for coronary heart disease Performed By: #### L IPNF, 55913-3, 80527-8, 3016-3 ####[facility] [id number] [address] [place] LDL CHOLESTEROL CALCULATED, NF 133 mg/dL High <100 [facility] Comment on above: Order Comment: Speci men Type: BLOOD SPECIMENOrdering Facility: [facility] Address: [address] [place] [address] Result Comment: <100 mg/dL, Optimal 100-129 mg/dL, Near optimal/above optimal 130-159 mg/dL, Borderline high 160-189 mg/dL, High >189 mg/dL, Very high Secondary prevention optimal LDL Cholesterol levels are recommended to be <70 mg/dL LDL cholesterol is calculated using the Quezada-NIH equation. Performed By: #### L IPJOSE LUIS, 19095-6, 95882-1, 3015-3 ####[facility] [id number] [address] LDL/HDL RATIO, NF 2.11 mg/dL Normal <2.54 [facility] Comment on above: Order Comment: Tanneri men Type: BLOOD SPECIMENOrdering Facility: [facility] Address: [address] [place] [address] Result Comment: Refe rence: 1. National Cholesterol Education Program ATP III Guideline At-A-Glance Quick Desk Reference: National Heart, Lung, and Blood [place]. National Institutes of Health. 2001: NIH Publication No. 01-3305. 2. An International Atherosclerosis Society position paper: global recommendations for the management of dyslipidemia: executive summary, Atherosclerosis. 2014: 232(2):410-413. Performed By: #### L IPNF, 10449-9, 75530-6, 6-3 ####[facility] [id number] [place] [address] [place] NON HDL CHOL, NF 160 mg/dL High <[address] [facility] Comment on above: Order Comment: Speci men Type: BLOOD SPECIMENOrdering Facility: [facility] Address: [address] [place] [address] Result Comment: <130 mg/dL, Optimal 130-159 mg/dL, Near optimal/above optimal 160-189 mg/dL, Borderline high 190-219 mg/dL, High >219 mg/dL, Very high Secondary prevention optimal non HDL Cholesterol levels are recommended to be <100 mg/dL Performed By: #### L IPNF, 96379-2, 06482-2, 3015-3 ####[facility] [id number] [address] [place] T CHOL/HDL RATIO NF 3.54 mg/dL Normal <5.10 [facility] Comment on above: Order Comment: Speci men Type: BLOOD SPECIMENOrdering Facility: [facility] Address: [address] [place] [address] Performed By: #### L IPNF, , , 3015-3 ####[facility] [id number] [place] [address] [place] TRIGLYCERIDES, NF 153 mg/dL High <150 [facility] Comment on above: Order Comment: Speci men Type: BLOOD SPECIMENOrdering Facility: [facility] Address: [address] [place] [address] Result Comment: <150 mg/dL, Normal 150-199 mg/dL, Borderline high 200-499 mg/dL, High >499 mg/dL, Very high Performed By: #### L IPNF, , , 3015-3 ####[facility] [id number] [place] [address] [place] VLDL CHOLESTEROL, NF 27 mg/dL Normal <30 [facility] Comment on above: Order Comment: Speci men Type: BLOOD SPECIMENOrdering Facility: [facility] Address: [address] [place] [address] Performed By: #### L IPNF, 77561-8, 06791-1, 3016-3 ####[facility] [id number] [place] [address] [place] Magnesium SerPl-mCncon 03-01 Magnesium [Mass/Vol] 1.7 mg/dL Normal 1.7-2.3 [facility] Comment on above: Order Comment: Speci men Type: BLOOD SPECIMENOrdering Facility: [facility] Address: [address] [place] [address] Performed By: #### L IPJOSE LUIS, 22689-3, 43481-1, 3016-3 ####[facility] [id number] [place] [address] [place] TSH SerPl-aCncon 03-01-2025 TSH Qn 1.660 m[IU]/L Normal 0.270-4.200 [facility] Comment on above: Order Comment: Speci men Type: BLOOD SPECIMENOrdering Facility: [facility] Address: [address] [place] [address] Performed By: #### L IPNF, 34368-0, 46375-2, 3016-3 ####[facility] [id number] [place] [address] [place] UA DIP, URINE (POC)on 2024 BILIRUBIN UA (POCT) Negative Negative [facility] CLARITY UA (POCT) Cloudy [facility] COLOR UA (POCT) Other [facility] GLUCOSE UA (POCT) 100 mg/dL Abnormal Negative [facility] Hemoglobin Ql (U) Trace-intact Abnormal Negative [facility] Interpretation and review of laboratory results Abnormal [facility] KETONE UA (POCT) Negative Negative mg/dL [facility] LEUKOCYTES UA (POCT) Small Abnormal Negative [facility] NITRITE UA (POCT) Positive Abnormal Negative [facility] PH UA (POCT) 5.5 4.5 - 8.0 [facility] Protein Ql (U) Trace Abnormal Negative mg/dL [facility] SPECIFIC GRAVITY UA (POCT) >=1.030 1.005 - 1.030 [facility] UROBILINOGEN UA (POCT) 0.2 Christine l E.U./dL [facility] Location:[address], [place], [place], [id number] [place] [address] POINT OF CARE [facility] VITAMIN D 25 HYDROXYon 03-01 25-hydroxyvitamin D3 [Mass/Vol] 16.6 ng/mL Low 31.0 - 80.0 ng/mL [facility] Comment on above: Classification of 25 [place] Vitamin D status: Deficiency/Insufficiency: < or = 30 ng/ml. Sufficiency/Optimal Levels: 31-80 ng/mL Toxicity: > 100 ng/mL. Test performed by chemiluminescent immunoassay. Vit B12 SerP-[facility] 025 Cobalamin (Vitamin B12) [Mass/Vol] 207 pg/mL Low 232-1245 [facility] Comment on above: Order Comment: Speci men Type: BLOOD SPECIMENOrdering Facility: [facility] Address: [address] [place] [address] Performed By: #### 2 132-9 ####[facility] [id number] [place] [address] [place] Eric 01-25-2025 [facility] IVET VALERO ([id number]) 1955 F Date Time Provider Department 01/25/25 [...] Date Reviewed: 07/26/2024 Reviewed by: Smiley Melo APRN.[employer] OPERATOR - Fully Assessed Reason for Visit: requesting [...] mouth two times a day. - Insulin Keldron, Disposable, (BD ULTRA-FINE MINDY PEN NEEDLE) 32 [...] tablet by mouth once daily. - Insulin Keldron, Disposable, 32 gauge x 5/16 ndle Use [...] for nausea (more content not included)... [facility] ANJUMKEYANNAH Jeo ([id number]) 1955 F Date Time Provider Department 12/23/24 RICCI COLE During your visit today, we recorded the following information about you: Joycelyn Esparza 12/23/2024 9:14 AM Signed Ivet is a patient of Ricci Cole MD today Mary from [employer] called and stated she will be faxing the order form for incontinent supplies to [phone]. Please call with any questions. Patient has been identified by name and birthdate. Was an appointment scheduled: No Closing statement: Results or non-symptom based questions: Thank you for calling [facility], your call will be returned within the next business day. Marylu Mariscal MA 12/27/2024 10:41 AM Addendum Fax received. Type of form: Certificate of Medical Necessity Form received via fax When form is completed, Fax form to [facility] at [phone] Form has been forwarded to Physician: ROSS Robles Lisa, MA 12/28/2024 11:42 AM Signed Completed form faxed Allergies As of Date: 12/23/2024 Noted Allergy Reaction CHANTIX (VARENICLINE) 01/22/2019 1 - Mental Status Change PENICILLINS 05/25/2008 4 - Hives SULFA (SULFONAMIDE ANTIBIOTICS) 09/19/2016 2 - Rash 14 - Other: See Comments Comments: Blisters and sore in throat Date Reviewed: 07/26/2024 Reviewed by: Smiley Melo APRN.[employer]PERATOR - Fully Assessed Reason for Visit: Orders [...] mouth two times a day. - Insulin Keldron, Disposable, (BD ULTRA-FINE MINDY PEN NEEDLE) 32 [...] tablet by mouth once daily. - Insulin Keldron, Disposable, 32 gauge x 5/16 ndle Use [...] 09/07/2021 L (more content not included)... [facility] CNCOon 10-19-2024 CNCO Letter Text [facility] CNPNon 07-29-2024 [facility] IVET VALERO ([id number]) 1955 F Date Time Provider Department 07/29/24 RICCI COLE [facility] During your visit today, we recorded the following information about you: Karon Garcia, RN 07/29/2024 8:34 AM Signed [place] pharmacist from [facility] calling in this morning to say that the prescription for this pt sent to them on 07/26 has gotten lost in the delivery process. So patient has not received her antibiotic Nitrofurantoin (Macrobid). Eulalia is concerned that pt needs the antibiotic and she is unsure when or if the RX will be found. Elualia asking if she can have an order [...] Date Reviewed: 07/26/2024 Reviewed by: Smiley Melo APRN.[employer] - Fully Assessed Reason for Visit: Medication [...] mouth two times a day. - Insulin Keldron, Disposable, (BD ULTRA-FINE MINDY PEN NEEDLE) 32 [...] tablet by mouth once daily. - Insulin Keldron, Disposable, 32 gauge x 516 ndle Use [...] 35-39.9 [E66.8 (more content not included)... [facility] CNOVon 07-26-2024 CNOV Office Visit ([facility] ) IVET VALERO ([id number]) 1955 F Date Time Provider Department 07/26/24 10:00 AM [facility] During your visit today, we recorded the following information about you: Temperature Pulse Respiration Blood pressure 98.8 degrees 102/minute 20/minute 128/60 Weight 103 kg Smiley Melo APRN.[facility] 07/26/2024 10:47 AM Signed This is [...] Pt. Has Hx of UTI frequently Migraine [id number] frontal and occipital. Has a workers comp [...] 6 hours as needed for nausea/vomiting. Insulin Keldron, Disposable, (BD ULTRA-FINE MINDY PEN NEEDLE) 32 gauge x 5/32 Use one needle for each dose, 4 times daily. (4mm) Lancets lancets Test blood sugar(s) 3-4 times daily. Dx: Type 2 DM-Controlled Insulin: Yes blood sugar diagnostic (BLOOD GLUCOSE TEST) test strip Test blood sugar(s) 3-4 times daily. Dx: Type 2 DM - Controlled E11.9 Insulin: Yes Insulin Keldron, Disposable, 32 gauge x 5/16 ndle Use four times daily with insulin Blood Pressure Monitor 1 Each once daily. Blood Pressure Monitor EXLARGE BLOOD PRESSURE CUFF MONITOR KIT checking bp 4 times daily No current (more content not included)... [facility] UA DIP, URINE (POC)on 2023 BILIRUBIN UA (POCT) Negative Negative [facility] CLARITY UA (POCT) Clear [facility] COLOR UA (POCT) Yellow [facility] GLUCOSE UA (POCT) 250 mg/dL Abnormal Negative [facility] Hemoglobin Ql (U) Moderate Abnormal Negative [facility] Interpretation and review of laboratory results Abnormal [facility] KETONE UA (POCT) Trace Negative mg/dL [facility] LEUKOCYTES UA (POCT) Trace Abnormal Negative [facility] NITRITE UA (POCT) Positive Abnormal Negative [facility] PH UA (POCT) 5.5 4.5 - 8.0 [facility] Protein Ql (U) >=300 Abnormal Negative mg/dL [facility] SPECIFIC GRAVITY UA (POCT) >=1.030 1.005 - 1.030 [facility] UROBILINOGEN UA (POCT) 0.2 Christine l E.U./dL [facility] Location:[address], [address] [place] [address] POINT OF CARE [facility] UA DIP, URINE (POC)on 2023 BILIRUBIN UA (POCT) Negative Negative [facility] CLARITY UA (POCT) [facility] COLOR UA (POCT) Мария [facility] GLUCOSE UA (POCT) 250 mg/dL Abnormal Negative [facility] Hemoglobin Ql (U) Negative Negative [facility] Interpretation and review of laboratory results Abnormal [facility] KETONE UA (POCT) 15 mg/dL Abnormal Negative [facility] LEUKOCYTES UA (POCT) Small Abnormal Negative [facility] NITRITE UA (POCT) Positive Abnormal Negative [facility] PH UA (POCT) 6.0 4.5 - 8.0 [facility] Protein Ql (U) Trace Abnormal Negative mg/dL [facility] SPECIFIC GRAVITY UA (POCT) 1.025 1.005 - 1.030 [facility] UROBILINOGEN UA (POCT) 0.2 Christine l E.U./dL [facility] Location:[address], [place], [place], [address] [place] [address] POINT OF CARE [facility] UA DIP, URINE (POC)on 2023 BILIRUBIN UA (POCT) Negative Negative [facility] CLARITY UA (POCT) Cloudy [facility] COLOR UA (POCT) Yellow [facility] GLUCOSE UA (POCT) >=1000 Abnormal Negative mg/dL [facility] Hemoglobin Ql (U) Trace-intact Abnormal Negative [facility] Interpretation and review of laboratory results Abnormal [facility] KETONE UA (POCT) Negative Negative mg/dL [facility] LEUKOCYTES UA (POCT) Trace Abnormal Negative [facility] NITRITE UA (POCT) Positive Abnormal Negative [facility] PH UA (POCT) 5.5 4.5 - 8.0 [facility] Protein Ql (U) Trace Abnormal Negative mg/dL [facility] SPECIFIC GRAVITY UA (POCT) 1.020 1.005 - 1.030 [facility] UROBILINOGEN UA (POCT) 0.2 Christine l E.U./dL [facility] Location:[address], [place], [place], [address] [place] [address] POINT OF CARE [facility] XR Chest PA and Lateralon IMPRESSION: No acute radiographic abnormality. Final Touch Up Painter: PSCB Transcribe Date/Time: Sep 04 2023 3:33P Dictated by : MCKENZIE CURTIS MD This examination was interpreted and the report reviewed and electronically signed by: MCKENZIE CURTIS MD on Sep 04 2023 3:33PM [facility] DIVISION OF RADIOLOGY * * *Final [...] spine. IMPRESSION IMPRESSION: No acute radiographic abnormality. Final Touch Up Painter: JOHNIE Transcribe Date/Time: Sep 04 2023 3:33P Dictated by : MCKENZIE CURTIS MD This examination was interpreted and the report reviewed and electronically signed by: MCKENZIE CURTIS MD on Sep 04 2023 3:33PM EST [facility] Radiology Study observation (narrative) [facility] XR Chest PA and LateralOrder ed By: Ccf Provider on 09-04-2023 [facility] Glucose Glucometer (BldC) [M ass/Vol]Ordered By: Sho Yi on 08-06-2023 Glucose [Mass/Vol] 147 mg/dL 74-106 [facility] Comment on above: MANAGEMENT OF PATIEN T CARE PER NURSING PROTOCOL Absolute lymphocyte countOrd ered By: Leeanne Barron on 08-05-2023 Lymphocytes Auto (Unsp spec) [#/Vol] 4.42 10*3/uL 0.83-4.51 [facility] Basophil percentageOrdered B y: Leeanne Barron on 08-05-2023 Basophils/100 WBC (Bld) 0.4 % 0-1 [facility] Chloride [Moles/Vol] 110 mmol/L 98-107 [facility] Eosinophils/100 WBC (Bld) 1.2 % 0-5 [facility] Glucose [Mass/Vol] 130 mg/dL 74-106 [facility] Comment on above: Fasting Glucose resu lt greater than or equal to 126 mg/dL suggests DIABETES MELLITUS per A.D.A. criteria. Neutrophils (Bld) [#/Vol] 5.8 10*3/uL 2.0-7.7 [facility] Neutrophils/100 WBC (Bld) 51.7 % 47-70 [facility] Potassium [Moles/Vol] 3.7 mmol/L 3.5-5.1 [facility] Sodium [Moles/Vol] 142 mmol/L 136-145 [facility] WBC (Bld) [#/Vol] 11.3 10*3/uL 4.4-11.0 [facility] Blood erythrocytes count (nu mber/volume)Ordered By: Leeanne Barron on 08-05-2023 RBC (Bld) [#/Vol] 4.42 10*6/uL 4.2-5.4 [facility] Blood hemoglobin measurement (mass/volume)Ordered By: Leeanne Barron on 08-05-2023 Hemoglobin (Bld) [Mass/Vol] 13.5 g/dL 12.0-15.0 [facility] Blood lymphocytes/100 leukoc ytesOrdered By: Leeanne Barron on 08-05-2023 Lymphocytes/100 WBC (Bld) 39.3 % 19-41 [facility] Blood monocytes/100 leukocyt esOrdered By: Leeanne Barron on 08-05-2023 Monocytes/100 WBC (Bld) 7.0 % 0-10 [facility] Blood platelet mean volumeOr dered By: Leeanne Barron on 08-05-2023 Platelet mean volume (Bld) [Entitic vol] 8.8 fL 6.2-12.0 [facility] Determination of erythrocyte mean corpuscular volume (MCV)Ordered By: Leeanne Barron on 08-05-2023 MCV (RBC) [Entitic vol] 93.4 fL 81-99 [facility] Hematocrit Auto (Bld) [Volum e fraction]Ordered By: Leeanne Barron on 08-05-2023 Hematocrit (Bld) [Volume fraction] 41.3 % 37-47 [facility] - Chemistry and C hemistry - challengeOrdered By: Leeanne Barron on 08-05-2023 CO2 [Moles/Vol] 27.0 mmol/L 21.0-32.0 [facility] Urea nitrogen/Creatinine [Mass ratio] 18.8 mg/mg 10-20 [facility] - Hematology and Cell countsOrdered By: Leeanne Barron on 08-05-2023 Erythrocyte distribution width (RBC) [Entitic vol] 46.9 fL 35.1-43.9 [facility] Erythrocyte distribution width (RBC) [Ratio] 13.7 % 11.6-14.6 [facility] Immature granulocytes/100 WBC (Bld) 0.400 % 0.0-0.9 [facility] Comment on above: IG% - Immature Granu locytes (promyelocytes, myelocytes and metamyelocytes) > 1% indicates that a LEFT SHIFT is Present. MCH (RBC) [Entitic mass] 30.5 pg 27.0-32.0 [facility] Nucleated RBC/100 WBC (Bld) [Ratio] 0 % 0-5 [facility] MCHC Auto (RBC) [Mass/Vol]Or dered By: Leeanne Barron on 08-05-2023 MCHC (RBC) [Mass/Vol] 32.7 g/dL 32-36 [facility] No Panel InformationOrdered By: Leeanne Barron on 08-05-2023 Estimated Creatinine Clearance Calc 53.81 ml/min [facility] Estimated GFR (MDRD) Amer 120 mL/min >60 [facility] Comment on above: GFR Calc Estimated GFR (MDRD) Non-Af Amer 99 mL/min >60 [facility] Comment on above: Non- GFR Calc Platelets bldOrdered By: Octaviano Barron on 08-05-2023 Platelets (Bld) [#/Vol] 273 10*3/uL 150-450 [facility] Serum or plasma calcium maria elena urement (mass/volume)Ordered By: Leeanne Barron on 08-05-2023 Calcium [Mass/Vol] 8.4 mg/dL 8.5-10.1 [facility] Serum or plasma creatinine m easurement (mass/volume)Ordered By: Leeanne Barron on 08-05-2023 Creatinine [Mass/Vol] 0.64 mg/dL 0.55-1.02 [facility] Comment on above: The validity of the calculated GFR & GFRAA in patients over 70 years has not been determined. Clinical correlation is essential. Serum or plasma urea nitroge n measurement (mass/volume)Ordered By: Leeanne Barron on 08-05-2023 Urea nitrogen [Mass/Vol] 12 mg/dL 7-18 [facility] Thin prep Papanicolaou smear with manual screeningOrdered By: Leeanne Barron on 08-05-2023 Thin prep Papanicolaou smear with manual screening 5 5-15 [facility] Absolute lymphocyte countOrd ered By: Marylu Gillespie on 12-11-2023 Lymphocytes Auto (Unsp spec) [#/Vol] 3.10 10*3/uL 0.83-4.51 [facility] Basophil percentageOrdered B y: Marylu Gillespie on 08-04-2023 Basophils/100 WBC (Bld) 0.6 % 0-1 [facility] Chloride [Moles/Vol] 106 mmol/L 98-107 [facility] Eosinophils/100 WBC (Bld) 0.6 % 0-5 [facility] Glucose [Mass/Vol] 241 mg/dL 74-106 [facility] Comment on above: Glucose result great er than or equal to 200 mg/dLsuggests DIABETES MELLITUS per A.D.A. criteria. Neutrophils (Bld) [#/Vol] 9.9 10*3/uL 2.0-7.7 [facility] Neutrophils/100 WBC (Bld) 70.3 % 47-70 [facility] Potassium [Moles/Vol] 3.8 mmol/L 3.5-5.1 [facility] Sodium [Moles/Vol] 139 mmol/L 136-145 [facility] WBC (Bld) [#/Vol] 14.0 10*3/uL 4.4-11.0 [facility] Basophil percentage 10-25 SEEN /hpf 0-5 [facility] Bilirubin Test strip Ql (U)O rdered By: Marylu Gillespie on 08-04-2023 Bilirubin Ql (U) Negative Negative [facility] Blood erythrocytes count (nu mber/volume)Ordered By: Marylu Gillespie on 08-04-2023 RBC (Bld) [#/Vol] 5.08 10*6/uL 4.2-5.4 [facility] Blood hemoglobin measurement (mass/volume)Ordered By: Marylu Gillespie on 08-04-2023 Hemoglobin (Bld) [Mass/Vol] 14.9 g/dL 12.0-15.0 [facility] Blood lymphocytes/100 leukoc ytesOrdered By: Marylu Gillespie on 08-04-2023 Lymphocytes/100 WBC (Bld) 22.1 % 19-41 [facility] Blood monocytes/100 leukocyt esOrdered By: Marylu Gillespie on 08-04-2023 Monocytes/100 WBC (Bld) 5.9 % 0-10 [facility] Blood platelet mean volumeOr dered By: Marylu Gillespie on 08-04-2023 Platelet mean volume (Bld) [Entitic vol] 8.8 fL 6.2-12.0 [facility] Determination of erythrocyte mean corpuscular volume (MCV)Ordered By: Marylu Gillespie on 08-04-2023 MCV (RBC) [Entitic vol] 92.1 fL 81-99 [facility] Glucose Glucometer (BldC) [M ass/Vol]Ordered By: Leeanne Barron on 08-04-2023 Glucose [Mass/Vol] 121 mg/dL 74-106 [facility] Comment on above: MANAGEMENT OF PATIEN T CARE PER NURSING PROTOCOL Hematocrit Auto (Bld) [Volum e fraction]Ordered By: Marylu Gillespie on 08-04-2023 Hematocrit (Bld) [Volume fraction] 46.8 % 37-47 [facility] Ketones Test strip Ql (U)Ord ered By: Marylu Gillespie on 08-04-2023 Ketones Ql (U) 5 mg/dl Negative [facility] - Chemistry and C hemistry - challengeOrdered By: Marylu Gillespie on 08-04-2023 CO2 [Moles/Vol] 24.0 mmol/L 21.0-32.0 [facility] Urea nitrogen/Creatinine [Mass ratio] 12.8 mg/mg 10-20 [facility] - Hematology and Cell countsOrdered By: Marylu Gillespie on 08-04-2023 Erythrocyte distribution width (RBC) [Entitic vol] 45.5 fL 35.1-43.9 [facility] Erythrocyte distribution width (RBC) [Ratio] 13.4 % 11.6-14.6 [facility] Immature granulocytes/100 WBC (Bld) 0.500 % 0.0-0.9 [facility] Comment on above: IG% - Immature Granu locytes (promyelocytes, myelocytes and metamyelocytes) > 1% indicates that a LEFT SHIFT is Present. MCH (RBC) [Entitic mass] 29.3 pg 27.0-32.0 [facility] Nucleated RBC/100 WBC (Bld) [Ratio] 0 % 0-5 [facility] MCHC Auto (RBC) [Mass/Vol]Or dered By: Marylu Gillespie on 08-04-2023 MCHC (RBC) [Mass/Vol] 31.8 g/dL 32-36 [facility] Mucus LM Ql (Urine sed)Order ed By: Marylu Gillespie on 08-04-2023 Mucus Ql (Urine sed) 0 SEEN /hpf [facility] Nitrite Test strip Ql (U)Ord ered By: Marylu Gillespie on 08-04-2023 Nitrite Ql (U) Positive Negative [facility] No Panel InformationOrdered By: Marylu Gillespie on 08-04-2023 Estimated Creatinine Clearance Calc 53.81 ml/min [facility] Estimated GFR (MDRD) Amer 95 mL/min >60 [facility] Comment on above: GFR Calc Estimated GFR (MDRD) Non-Af Amer 78 mL/min >60 [facility] Comment on above: Non- GFR Calc Platelets bldOrdered By: Lorrie Gillespie on 08-04-2023 Platelets (Bld) [#/Vol] 327 10*3/uL 150-450 [facility] Protein Test strip Ql (U)Ord ered By: Marylu Gillespie on 08-04-2023 Protein Ql (U) 30 mg/dl Negative [facility] Serum or plasma calcium maria elena urement (mass/volume)Ordered By: Marylu Gillespie on 08-04-2023 Calcium [Mass/Vol] 9.2 mg/dL 8.5-10.1 [facility] Serum or plasma creatinine m easurement (mass/volume)Ordered By: Marylu Gillespie on 08-04-2023 Creatinine [Mass/Vol] 0.78 mg/dL 0.55-1.02 [facility] Comment on above: The validity of the calculated GFR & GFRAA in patients over 70 years has not been determined. Clinical correlation is essential. Serum or plasma urea nitroge n measurement (mass/volume)Ordered By: Marylu Gillespie on 08-04-2023 Urea nitrogen [Mass/Vol] 10 mg/dL 7-18 [facility] Squamous epithelial cells de tection in urine sediment by light microscopyOrdered By: Marylu Gillespie on 08-04-2023 Epithelial cells.squamous LM Ql (Urine sed) 0-5 SEEN /hpf 5-10 [facility] Thin prep Papanicolaou smear with manual screeningOrdered By: Marylu Gillespie on 08-04-2023 Thin prep Papanicolaou smear with manual screening 9 -15 [facility] Urine blood detectionOrdered By: Marylu Gillespie on 08-04-2023 RBC Ql (U) 25 /ul Negative [facility] RBC Ql (U) 0 SEEN /hpf 0-5 [facility] Urine clarityOrdered By: Lorrie Gillespie on 08-04-2023 Clarity (U) Clear Clear [facility] Urine color determinationOrd ered By: Marylu Gillespie on 08-04-2023 Color (U) Yellow Yellow [facility] Urine glucose detectionOrder ed By: Marylu Gillespie on 08-04-2023 Glucose Ql (U) Normal mg/dl Normal [facility] Urine leukocyte esterase det ection by dipstickOrdered By: Marylu Gillespie on 08-04-2023 Leukocyte esterase Test strip Ql (U) 500 /ul Negative [facility] Urine pHOrdered By: Marylu ontiveros on 08-04-2023 pH (U) 5.0 [pH] 5.0 - 8.0 [facility] Urine sediment bacteria coun t by microscopy (number/high power field)Ordered By: Marylu Gillespie on 08-04-2023 Bacteria LM.HPF (Urine sed) [#/Area] RARE /hpf None Seen [facility] Urine specific gravity measu rementOrdered By: Marylu Gillespie on 08-04-2023 Specific gravity (U) [Rel density] 1.020 1.002-1.030 [facility] Urobilinogen Auto test strip Ql (U)Ordered By: Marylu Gillespie on 08-04-2023 Urobilinogen Ql (U) Normal mg/dl Normal [facility] GLUCOSE, BLOOD (POC)on 07-09 Glucose [Mass/Vol] 302 mg/dL Abnormal 74 - 99 mg/dL [facility] UA DIP, URINE (POC)on 2022 BILIRUBIN UA (POCT) Negative Negative [facility] CLARITY UA (POCT) Clear [facility] COLOR UA (POCT) Yellow [facility] GLUCOSE UA (POCT) >=1000 Abnormal Negative mg/dL [facility] Hemoglobin Ql (U) Trace-intact Abnormal Negative [facility] KETONE UA (POCT) Negative Negative mg/dL [facility] LEUKOCYTES UA (POCT) Negative Negative [facility] NITRITE UA (POCT) Negative Negative [facility] PH UA (POCT) 5.5 4.5 - 8.0 [facility] Protein Ql (U) Negative Negative mg/dL [facility] SPECIFIC GRAVITY UA (POCT) 1.015 1.005 - 1.030 [facility] UROBILINOGEN UA (POCT) 0.2 E.U./dL Christine l E.U./dL [facility] ALBUMIN/CREAT RATIO RND URon 04-16-2023 Albumin DL <= 20 mg/L (U) [Mass/Vol] 50.8 mg/L [facility] Albumin/Creatinine (U) [Mass ratio] 17 mg/g <30 mg/g [facility] Creatinine (U) [Mass/Vol] 298.5 mg/dL 20.0 - 300.0 mg/dL [facility] PTH INTACT BLDon 04-16-2023 Parathyrin.intact [Mass/Vol] 42 pg/mL 15 - 65 pg/mL [facility] CBC W Auto Differential pane l (Bld)on 04-15-2023 Basophils (Bld) [#/Vol] 0.08 10*3/uL <0.11 k/uL [facility] Basophils/100 WBC (Bld) 0.5 % C [facility] Differential cell count method Nom (Bld) Auto [facility] Eosinophils (Bld) [#/Vol] 0.12 10*3/uL <0.46 k/uL [facility] Eosinophils/100 WBC (Bld) 0.7 % [facility] Erythrocyte distribution width (RBC) [Ratio] 13.7 % 11.5 - 15.0 % [facility] Hematocrit (Bld) [Volume fraction] 49.5 % High 36.0 - 46.0 % [facility] Hemoglobin (Bld) [Mass/Vol] 16.4 g/dL High 11.5 - 15.5 g/dL [facility] Immature granulocytes (Bld) [#/Vol] 0.07 10*3/uL <0.10 k/uL [facility] Immature granulocytes/100 WBC (Bld) 0.4 % [facility] Lymphocytes (Bld) [#/Vol] 4.89 10*3/uL High 1.00 - 4.00 k/uL [facility] Lymphocytes/100 WBC (Bld) 30.0 % [facility] MCH (RBC) [Entitic mass] 30.1 pg 26. 0 - 34.0 pg [facility] MCHC (RBC) [Mass/Vol] 33.1 g/dL 30.5 - 36.0 g/dL [facility] MCV (RBC) [Entitic vol] 91.0 fL 80.0 - 100.0 fL [facility] Monocytes (Bld) [#/Vol] 1.02 10*3/uL High <0.87 k/uL [facility] Monocytes/100 WBC (Bld) 6.3 % C [facility] Neutrophils (Bld) [#/Vol] 10.10 10*3/uL High 1.45 - 7.50 k/uL [facility] Neutrophils/100 WBC (Bld) 62.1 % [facility] Nucleated RBC (Bld) [#/Vol] <0.01 k/uL [facility] Nucleated RBC/100 WBC (Bld) [Ratio] 0.0 /100 WBC [facility] Platelet mean volume (Bld) [Entitic vol] 9.6 fL 9.0 - 12.7 fL [facility] Platelets (Bld) [#/Vol] 438 10*3/uL High 150 - 400 k/uL [facility] RBC (Bld) [#/Vol] 5.44 10*6/uL High 3.90 - 5.2 0 m/uL [facility] WBC (Bld) [#/Vol] 16.28 10*3/uL High 3.70 - 11 .00 k/uL [facility] HbA1c (Bld)on 04-15-2023 Average glucose Estimated from glycated hemoglobin (Bld) [Mass/Vol] 154 mg/dL [facility] HbA1c (Bld) [Mass fraction] 7.0 % High 4.3 - 5.6 % [facility] Urinalysis complete panel (U )on 04-15-2023 Bacteria LM.HPF (Urine sed) [#/Area] Rare Abnormal None Seen /HPF [facility] Bilirubin Ql (U) Negative Negative [facility] Clarity (Unsp spec) Clear Clear [facility] Color (U) Yellow Yellow [facility] Epithelial cells LM.HPF (Urine sed) [#/Area] Few [facility] Glucose Test strip (U) [Mass/Vol] Trace Trace, Negative [facility] Hemoglobin Ql (U) Negative Negative, Trace [facility] Hyaline casts (Urine sed) [#/Area] /[LPF] Abnormal 0 /LPF [facility] Ketones Ql (U) Negative Trace, Negative [facility] Leukocyte esterase Test strip Ql (U) 75 Meng/uL Abnormal Negative, 25 Meng/uL [facility] Nitrite Ql (U) 2+ Abnormal Negative [facility] pH (U) 5.5 [pH] 5.0 - 8.0 [facility] Protein (U) [Mass/Vol] 1+ Abnormal Trace , Negative [facility] RBC LM.HPF (Urine sed) [#/Area] 0-3 /HPF 0-3 /HPF [facility] Specific gravity (U) [Rel density] 1.027 1.005 - 1.030 [facility] Urobilinogen Ql (U) Negative Negative [facility] WBC LM.HPF (Urine sed) [#/Area] 11-25 /HPF Abnormal 0-5 /HPF [facility] Absolute lymphocyte countOrd ered By: Carter Martinez on 11-14-2022 Lymphocytes Auto (Unsp spec) [#/Vol] 3.89 10*3/uL 0.83-4.51 [facility] Basophil percentageOrdered B y: Carter Martinez on 11-14-2022 Basophil percentage 0-5 SEEN /hpf 0-5 [facility] [facility] Basophils/100 WBC (Bld) 0.5 % 0-1 [facility] Chloride [Moles/Vol] 105 mmol/L 98-107 [facility] Eosinophils/100 WBC (Bld) 0.6 % 0-5 [facility] Glucose [Mass/Vol] 188 mg/dL 74-106 [facility] Comment on above: Fasting Glucose resu lt greater than or equal to 126 mg/dL suggests DIABETES MELLITUS per A.D.A. criteria. Neutrophils (Bld) [#/Vol] 10.0 10*3/uL 2.0-7.7 [facility] Neutrophils/100 WBC (Bld) 66.6 % 47-70 [facility] Potassium [Moles/Vol] 3.7 mmol/L 3.5-5.1 [facility] Sodium [Moles/Vol] 141 mmol/L 136-145 [facility] WBC (Bld) [#/Vol] 15.0 10*3/uL 4.4-11.0 [facility] Bilirubin Test strip Ql (U)O rdered By: Carter Martinez on 11-14-2022 Bilirubin Ql (U) Negative Negative [facility] Blood erythrocytes count (nu mber/volume)Ordered By: Carter Martinez on 11-14-2022 RBC (Bld) [#/Vol] 5.11 10*6/uL 4.2-5.4 [facility] Blood hemoglobin measurement (mass/volume)Ordered By: Carter Martinez on 11-14-2022 Hemoglobin (Bld) [Mass/Vol] 15.1 g/dL 12.0-15.0 [facility] Blood lymphocytes/100 leukoc ytesOrdered By: Carter Martinez on 11-14-2022 Lymphocytes/100 WBC (Bld) 25.9 % 19-41 [facility] Blood monocytes/100 leukocyt esOrdered By: Carter Martinez on 11-14-2022 Monocytes/100 WBC (Bld) 5.9 % 0-10 [facility] Blood platelet mean volumeOr dered By: Carter Martinez on 11-14-2022 Platelet mean volume (Bld) [Entitic vol] 8.4 fL 6.2-12.0 [facility] Determination of erythrocyte mean corpuscular volume (MCV)Ordered By: Carter Martinez on 11-14-2022 MCV (RBC) [Entitic vol] 91.8 fL 81-99 [facility] Hematocrit Auto (Bld) [Volum e fraction]Ordered By: Carter Martinez on 11-14-2022 Hematocrit (Bld) [Volume fraction] 46.9 % 37-47 [facility] Influenza virus A and B and SARS-CoV-2 (COVID-19) Ag panel - Upper respiratory specimOrdered By: Carter Martinez on 11-14-2022 SARS-CoV-2 (COVID-19) RNA CONNOR+probe Ql (Resp) [facility] Ketones Test strip Ql (U)Ord ered By: Carter Martinez on 11-14-2022 Ketones Ql (U) 5 mg/dl Negative [facility] - Chemistry and C hemistry - challengeOrdered By: Carter Martinez on 11-14-2022 CO2 [Moles/Vol] 26.0 mmol/L 21.0-32.0 [facility] Urea nitrogen/Creatinine [Mass ratio] 7.0 mg/mg 10-20 [facility] Laboratory - Hematology and Cell countsOrdered By: Carter Martinez on 11-14-2022 Erythrocyte distribution width (RBC) [Entitic vol] 45.8 fL 35.1-43.9 [facility] Erythrocyte distribution width (RBC) [Ratio] 13.5 % 11.6-14.6 [facility] Immature granulocytes/100 WBC (Bld) 0.500 % 0.0-0.9 [facility] Comment on above: IG% - Immature Granu locytes (promyelocytes, myelocytes and metamyelocytes) > 1% indicates that a LEFT SHIFT is Present. MCH (RBC) [Entitic mass] 29.5 pg 27.0-32.0 [facility] Nucleated RBC/100 WBC (Bld) [Ratio] 0 % 0-5 [facility] MCHC Auto (RBC) [Mass/Vol]Or dered By: Carter Martinez on 11-14-2022 MCHC (RBC) [Mass/Vol] 32.2 g/dL 32-36 [facility] Mucus LM Ql (Urine sed)Order ed By: Carter Martinez on 11-14-2022 Mucus Ql (Urine sed) 0 SEEN /hpf [facility] Nitrite Test strip Ql (U)Ord ered By: Carter Martinez on 11-14-2022 Nitrite Ql (U) Negative Negative [facility] No Panel InformationOrdered By: Carter Martinez on 11-14-2022 Estimated Creatinine Clearance Calc 75.75 ml/min [facility] Estimated GFR (MDRD) Amer 105 mL/min >60 [facility] Comment on above: GFR Calc Estimated GFR (MDRD) Non-Af Amer 86 mL/min >60 [facility] Comment on above: Non- GFR Calc Platelets bldOrdered By: Isabella Martinez on 11-14-2022 Platelets (Bld) [#/Vol] 341 10*3/uL 150-450 [facility] Protein Test strip Ql (U)Ord ered By: Carter Martinez on 11-14-2022 Protein Ql (U) Negative Negative [facility] Serum or plasma calcium maria elena urement (mass/volume)Ordered By: Carter Martinez on 11-14-2022 Calcium [Mass/Vol] 9.1 mg/dL 8.5-10.1 [facility] Serum or plasma creatinine m easurement (mass/volume)Ordered By: Carter Martinez on 11-14-2022 Creatinine [Mass/Vol] 0.72 mg/dL 0.55-1.02 [facility] Comment on above: The validity of the calculated GFR & GFRAA in patients over 70 years has not been determined. Clinical correlation is essential. Serum or plasma urea nitroge n measurement (mass/volume)Ordered By: Carter Martinez on 11-14-2022 Urea nitrogen [Mass/Vol] 5 mg/dL 7-18 [facility] Squamous epithelial cells de tection in urine sediment by light microscopyOrdered By: Carter Martinez on 11-14-2022 Epithelial cells.squamous LM Ql (Urine sed) 0 SEEN /hpf 5-10 [facility] Thin prep Papanicolaou smear with manual screeningOrdered By: Carter Martinez on 11-14-2022 Thin prep Papanicolaou smear with manual screening 10 5-15 [facility] Urine blood detectionOrdered By: Carter Martinez on 11-14-2022 RBC Ql (U) Negative Negative [facility] RBC Ql (U) 0 SEEN /hpf 0-5 [facility] Urine clarityOrdered By: Isabella Martinez on 11-14-2022 Clarity (U) Clear Clear [facility] Urine color determinationOrd ered By: Carter Martinez on 11-14-2022 Color (U) Yellow Yellow [facility] Urine glucose detectionOrder ed By: Carter Martinez on 11-14-2022 Glucose Ql (U) Normal mg/dl Normal [facility] Urine leukocyte esterase det ection by dipstickOrdered By: Carter Martinez on 11-14-2022 Leukocyte esterase Test strip Ql (U) Negative Negative [facility] Urine pHOrdered By: Carter valle on 11-14-2022 pH (U) 7.0 [pH] 5.0 - 8.0 [facility] Urine sediment bacteria coun t by microscopy (number/high power field)Ordered By: Carter Martinez on 11-14-2022 Bacteria LM.HPF (Urine sed) [#/Area] 1 /[HPF] None Seen [facility] Urine specific gravity measu rementOrdered By: Carter Martinez on 11-14-2022 Specific gravity (U) [Rel density] 1.010 1.002-1.030 [facility] Urobilinogen Auto test strip Ql (U)Ordered By: Carter Martinez on 11-14-2022 Urobilinogen Ql (U) Normal mg/dl Normal [facility] Glucose Glucometer (BldC) [M ass/Vol]on 06-12-2022 Glucose [Mass/Vol] 291 mg/dL 74-106 [facility] Work Phone: Comment on above: MANAGEMENT OF PATIEN T CARE PER NURSING PROTOCOL Basophil percentageon 2021 Bilirubin [Mass/Vol] 0.50 mg/dL 0.20-1.00 [facility] Work Phone: Comment on above: For patients on eltr ombopag therapy, use of Dimension [place] TBIL is not recommended. Chloride [Moles/Vol] 107 mmol/L 98-107 [facility] Work Phone: Glucose [Mass/Vol] 281 mg/dL 74-106 [facility] Work Phone: Comment on above: Glucose result great er than or equal to 200 mg/dLsuggests DIABETES MELLITUS per A.D.A. criteria. Potassium [Moles/Vol] 3.6 mmol/L 3.5-5.1 [facility] Work Phone: Protein [Mass/Vol] 6.8 g/dL 6.4-8.2 [facility] Work Phone: Sodium [Moles/Vol] 140 mmol/L 136-145 [facility] Work Phone: WBC (Bld) [#/Vol] 11.1 10*3/uL 4.4-11.0 [facility] Work Phone: Blood erythrocytes count (nu mber/volume)on 05-10-2022 RBC (Bld) [#/Vol] 4.51 10*6/uL 4.2-5.4 [facility] Work Phone: [phone] Blood hemoglobin measurement (mass/volume)on 05-10-2022 Hemoglobin (Bld) [Mass/Vol] 13.6 g/dL 12.0-15.0 [facility] Work Phone: [phone] Blood platelet mean volumeon 05-10-2022 Platelet mean volume (Bld) [Entitic vol] 9.0 fL 6.2-12.0 [facility] Work Phone: [phone] Determination of erythrocyte mean corpuscular volume (MCV)on 05-10-2022 MCV (RBC) [Entitic vol] 90.7 fL 81-99 [facility] Work Phone: Direct bilirubinon Bilirubin.direct [Mass/Vol] 0.15 mg/dL 0.00-0.30 [facility] Work Phone: [phone] Hematocrit Auto (Bld) [Volum e fraction]on 05-10-2022 Hematocrit (Bld) [Volume fraction] 40.9 % 37-47 [facility] Work Phone: Laboratory - Chemistry and C hemistry - challengeon 05-10-2022 ALP [Catalytic activity/Vol] 76 U/L 45-117 [facility] Work Phone: ALT [Catalytic activity/Vol] 19 U/L 13-56 [facility] Work Phone: [phone] CO2 [Moles/Vol] 24.0 mmol/L 21.0-32.0 [facility] Work Phone: [phone] Globulin (S) [Mass/Vol] 3.5 g/dL 2.2-4.2 [facility] Work Phone: Urea nitrogen/Creatinine [Mass ratio] 6.4 mg/mg 10-20 [facility] Work Phone: Laboratory - Hematology and Cell countson 05-10-2022 Erythrocyte distribution width (RBC) [Entitic vol] 46.0 fL 35.1-43.9 [facility] Work Phone: Erythrocyte distribution width (RBC) [Ratio] 13.8 % 11.6-14.6 [facility] Work Phone: MCH (RBC) [Entitic mass] 30.2 pg 27.0-32.0 [facility] Work Phone: MCHC Auto (RBC) [Mass/Vol]on 05-10-2022 MCHC (RBC) [Mass/Vol] 33.3 g/dL 32-36 [facility] Work Phone: No Panel Informationon 05-10 Estimated GFR (MDRD) Amer 96 mL/min >60 [facility] Work Phone: Comment on above: GFR Calc Estimated GFR (MDRD) Non-Af Amer 79 mL/min >60 [facility] Work Phone: Comment on above: Non- GFR Calc Platelets bldon 05-10-2022 Platelets (Bld) [#/Vol] 288 10*3/uL 150-450 [facility] Work Phone: Serum or plasma albumin maria elena urement (mass/volume)on 05-10-2022 Albumin [Mass/Vol] 3.3 g/dL 3.2-5.0 [facility] Work Phone: Serum or plasma calcium maria elena urement (mass/volume)on 05-10-2022 Calcium [Mass/Vol] 9.0 mg/dL 8.5-10.1 [facility] Work Phone: Serum or plasma creatinine m easurement (mass/volume)on 05-10-2022 Creatinine [Mass/Vol] 0.78 mg/dL 0.55-1.02 [facility] Work Phone: Comment on above: The validity of the calculated GFR & GFRAA in patients over 70 years has not been determined. Clinical correlation is essential. Serum or plasma urea nitroge n measurement (mass/volume)on 05-10-2022 Urea nitrogen [Mass/Vol] 5 mg/dL 7-18 [facility] Work Phone: Thin prep Papanicolaou smear with manual screeningon 05-10-2022 Thin prep Papanicolaou smear with manual screening 16 U/L 15-37 [facility] Work Phone: Thin prep Papanicolaou smear with manual screening 9 5-15 [facility] Work Phone: Absolute lymphocyte counton 05-03-2022 Lymphocytes Auto (Unsp spec) [#/Vol] 3.33 10*3/uL 0.83-4.51 [facility] Work Phone: Basophil percentageon 2021 Basophils/100 WBC (Bld) 0.5 % 0-1 [facility] Work Phone: Chloride [Moles/Vol] 109 mmol/L 98-107 [facility] Work Phone: Eosinophils/100 WBC (Bld) 2.2 % 0-5 [facility] Work Phone: Glucose [Mass/Vol] 202 mg/dL 74-106 [facility] Work Phone: Comment on above: Glucose result great er than or equal to 200 mg/dLsuggests DIABETES MELLITUS per A.D.A. criteria. Neutrophils (Bld) [#/Vol] 5.0 10*3/uL 2.0-7.7 [facility] Work Phone: Neutrophils/100 WBC (Bld) 53.9 % 47-70 [facility] Work Phone: Potassium [Moles/Vol] 4.2 mmol/L 3.5-5.1 [facility] Work Phone: Sodium [Moles/Vol] 139 mmol/L 136-145 [facility] Work Phone: WBC (Bld) [#/Vol] 9.2 10*3/uL 4.4-11.0 [facility] Work Phone: Blood erythrocytes count (nu mber/volume)on 05-03-2022 RBC (Bld) [#/Vol] 4.39 10*6/uL 4.2-5.4 [facility] Work Phone: Blood hemoglobin measurement (mass/volume)on 05-03-2022 Hemoglobin (Bld) [Mass/Vol] 13.2 g/dL 12.0-15.0 [facility] Work Phone: Blood lymphocytes/100 leukoc yteson 05-03-2022 Lymphocytes/100 WBC (Bld) 36.2 % 19-41 [facility] Work Phone: Blood monocytes/100 leukocyt eson 05-03-2022 Monocytes/100 WBC (Bld) 6.4 % 0-10 [facility] Work Phone: Blood platelet mean volumeon 05-03-2022 Platelet mean volume (Bld) [Entitic vol] 8.7 fL 6.2-12.0 [facility] Work Phone: Determination of erythrocyte mean corpuscular volume (MCV)on 05-03-2022 MCV (RBC) [Entitic vol] 92.5 fL 81-99 [facility] Work Phone: Glucose Glucometer (BldC) [M ass/Vol]on 05-03-2022 Glucose [Mass/Vol] 270 mg/dL 74-106 [facility] Work Phone: Comment on above: MANAGEMENT OF PATIEN T CARE PER NURSING PROTOCOL Hematocrit Auto (Bld) [Volum e fraction]on 05-03-2022 Hematocrit (Bld) [Volume fraction] 40.6 % 37-47 [facility] Work Phone: Laboratory - Chemistry and C hemistry - challengeon 05-03-2022 CO2 [Moles/Vol] 25.0 mmol/L 21.0-32.0 [facility] Work Phone: [phone] Urea nitrogen/Creatinine [Mass ratio] 15.4 mg/mg 10-20 [facility] Work Phone: [phone] Laboratory - Hematology and Cell countson 05-03-2022 Erythrocyte distribution width (RBC) [Entitic vol] 44.6 fL 35.1-43.9 [facility] Work Phone: [phone] Erythrocyte distribution width (RBC) [Ratio] 13.2 % 11.6-14.6 [facility] Work Phone: [phone] Immature granulocytes/100 WBC (Bld) 0.800 % 0.0-0.9 [facility] Work Phone: [phone] Comment on above: IG% - Immature Granu locytes (promyelocytes, myelocytes and metamyelocytes) > 1% indicates that a LEFT SHIFT is Present. MCH (RBC) [Entitic mass] 30.1 pg 27.0-32.0 [facility] Work Phone: [phone] Nucleated RBC/100 WBC (Bld) [Ratio] 0 % 0-5 [facility] Work Phone: [phone] MCHC Auto (RBC) [Mass/Vol]on 05-03-2022 MCHC (RBC) [Mass/Vol] 32.5 g/dL 32-36 [facility] Work Phone: [phone] No Panel Informationon 05-03 Estimated Creatinine Clearance Calc 90.53 ml/min [facility] Work Phone: [phone] Estimated GFR (MDRD) Amer 133 mL/min >60 [facility] Work Phone: [phone] Comment on above: GFR Calc Estimated GFR (MDRD) Non-Af Amer 110 mL/min >60 [facility] Work Phone: [phone] Comment on above: Non- GFR Calc Platelets bldon 05-03-2022 Platelets (Bld) [#/Vol] 256 10*3/uL 150-450 [facility] Work Phone: [phone] Serum or plasma calcium maria elena urement (mass/volume)on 05-03-2022 Calcium [Mass/Vol] 8.2 mg/dL 8.5-10.1 [facility] Work Phone: Serum or plasma creatinine m easurement (mass/volume)on 05-03-2022 Creatinine [Mass/Vol] 0.58 mg/dL 0.55-1.02 [facility] Work Phone: Comment on above: The validity of the calculated GFR & GFRAA in patients over 70 years has not been determined. Clinical correlation is essential. Serum or plasma urea nitroge n measurement (mass/volume)on 05-03-2022 Urea nitrogen [Mass/Vol] 9 mg/dL 7-18 [facility] Work Phone: Thin prep Papanicolaou smear with manual screeningon 05-03-2022 Thin prep Papanicolaou smear with manual screening 5 5-15 [facility] Work Phone: Basophil percentageon 2021 Lactate [Moles/Vol] 2.5 mmol/L 0.4-2.0 [facility] Work Phone: Comment on above: Critical Result(s) C alled at: 04:42:09 05/01/2022 by: EMILIA Kim RN MS3. Results read back by same. Absolute lymphocyte counton 04-30-2022 Lymphocytes Auto (Unsp spec) [#/Vol] 3.67 10*3/uL 0.83-4.51 [facility] Work Phone: Basophil percentageon 2021 Basophil percentage 10-25 SEEN /hpf 0-5 [facility] Work Phone: Lactate [Moles/Vol] 3.4 mmol/L 0.4-2.0 [facility] Work Phone: Comment on above: Critical Result(s) C alled at: 23:29:24 04/30/2022 by: Alex Arteaga RN (ER). Results read back by same. Basophils/100 WBC (Bld) 0.4 % 0-1 [facility] Work Phone: [phone] Bilirubin [Mass/Vol] 0.50 mg/dL 0.20-1.00 [facility] Work Phone: [phone] Comment on above: For patients on eltr ombopag therapy, use of Dimension [place] TBIL is not recommended. Chloride [Moles/Vol] 104 mmol/L 98-107 [facility] Work Phone: [phone] Eosinophils/100 WBC (Bld) 1.2 % 0-5 [facility] Work Phone: [phone] Glucose [Mass/Vol] 359 mg/dL 74-106 [facility] Work Phone: Comment on above: Glucose result great er than or equal to 200 mg/dLsuggests DIABETES MELLITUS per A.D.A. criteria. Neutrophils (Bld) [#/Vol] 5.6 10*3/uL 2.0-7.7 [facility] Work Phone: [phone] Neutrophils/100 WBC (Bld) 54.5 % 47-70 [facility] Work Phone: [phone] Potassium [Moles/Vol] 3.8 mmol/L 3.5-5.1 [facility] Work Phone: [phone] Comment on above: Moderate Hemolysis, Result may be falsely increased. Protein [Mass/Vol] 6.4 g/dL 6.4-8.2 [facility] Work Phone: [phone] Sodium [Moles/Vol] 139 mmol/L 136-145 [facility] Work Phone: [phone] WBC (Bld) [#/Vol] 10.3 10*3/uL 4.4-11.0 [facility] Work Phone: [phone] Bilirubin Test strip Ql (U)o n 04-30-2022 Bilirubin Ql (U) Negative Negative [facility] Work Phone: [phone] Blood erythrocytes count (nu mber/volume)on 04-30-2022 RBC (Bld) [#/Vol] 4.63 10*6/uL 4.2-5.4 [facility] Work Phone: Blood hemoglobin measurement (mass/volume)on 04-30-2022 Hemoglobin (Bld) [Mass/Vol] 13.7 g/dL 12.0-15.0 [facility] Work Phone: Blood lymphocytes/100 leukoc yteson 04-30-2022 Lymphocytes/100 WBC (Bld) 35.7 % 19-41 [facility] Work Phone: [phone] Blood monocytes/100 leukocyt eson 04-30-2022 Monocytes/100 WBC (Bld) 7.8 % 0-10 [facility] Work Phone: [phone] Blood platelet mean volumeon 04-30-2022 Platelet mean volume (Bld) [Entitic vol] 9.5 fL 6.2-12.0 [facility] Work Phone: [phone] Determination of erythrocyte mean corpuscular volume (MCV)on 04-30-2022 MCV (RBC) [Entitic vol] 90.7 fL 81-99 [facility] Work Phone: [phone] Hematocrit Auto (Bld) [Volum e fraction]on 04-30-2022 Hematocrit (Bld) [Volume fraction] 42.0 % 37-47 [facility] Work Phone: INR in Blood by Coagulation assayon 04-30-2022 INR Coag (Bld) [Relative time] 1.0 {INR} [facility] Work Phone: [phone] Ketones Test strip Ql (U)on 04-30-2022 Ketones Ql (U) 15 mg/dl Negative [facility] Work Phone: Laboratory - Chemistry and C hemistry - challengeon 04-30-2022 ALP [Catalytic activity/Vol] 76 U/L 45-117 [facility] Work Phone: ALT [Catalytic activity/Vol] 34 U/L 13-56 [facility] Work Phone: [phone] CO2 [Moles/Vol] 25.0 mmol/L 21.0-32.0 [facility] Work Phone: Globulin (S) [Mass/Vol] 3.6 g/dL 2.2-4.2 [facility] Work Phone: [phone] Urea nitrogen/Creatinine [Mass ratio] 9.6 mg/mg 10-20 [facility] Work Phone: [phone] Laboratory - Coagulationon 0 04-30-2022 aPTT Coag (Bld) [Time] 28.3 s 24.1-36.2 Wo nati [facility] Work Phone: [phone] PT Coag (PPP) [Time] 12.9 s 11.7-14.9 [facility] Work Phone: Laboratory - Hematology and Cell countson 04-30-2022 Erythrocyte distribution width (RBC) [Entitic vol] 44.7 fL 35.1-43.9 [facility] Work Phone: [phone] Erythrocyte distribution width (RBC) [Ratio] 13.4 % 11.6-14.6 [facility] Work Phone: Immature granulocytes/100 WBC (Bld) 0.400 % 0.0-0.9 [facility] Work Phone: Comment on above: IG% - Immature Granu locytes (promyelocytes, myelocytes and metamyelocytes) > 1% indicates that a LEFT SHIFT is Present. MCH (RBC) [Entitic mass] 29.6 pg 27.0-32.0 [facility] Work Phone: Nucleated RBC/100 WBC (Bld) [Ratio] 0 % 0-5 [facility] Work Phone: [phone] MCHC Auto (RBC) [Mass/Vol]on 04-30-2022 MCHC (RBC) [Mass/Vol] 32.6 g/dL 32-36 [facility] Work Phone: Mucus LM Ql (Urine sed)on Mucus Ql (Urine sed) 0 SEEN /hpf [facility] Work Phone: [phone] Nitrite Test strip Ql (U)on 04-30-2022 Nitrite Ql (U) Positive Negative [facility] Work Phone: No Panel Informationon 04-30 Estimated Creatinine Clearance Calc 58.02 ml/min [facility] Work Phone: [phone] Estimated GFR (MDRD) Amer 77 mL/min >60 [facility] Work Phone: [phone] Comment on above: GFR Calc Estimated GFR (MDRD) Non-Af Amer 63 mL/min >60 [facility] Work Phone: Comment on above: Non- GFR Calc Troponin I High Sensitivity 12 pg/mL 3.0-54.0 [facility] Work Phone: Comment on above: Please Note: New Jesusita t Units and Gender Specific Reference Ranges. For more information see Policy Stat Procedure [place] High Sensitivity Troponin (TNIH) and attachments. Platelets bldon 04-30-2022 Platelets (Bld) [#/Vol] 275 10*3/uL 150-450 [facility] Work Phone: [phone] Protein Test strip Ql (U)on 04-30-2022 Protein Ql (U) 15 mg/dl Negative [facility] Work Phone: [phone] Serum or plasma albumin maria elena urement (mass/volume)on 04-30-2022 Albumin [Mass/Vol] 2.8 g/dL 3.2-5.0 [facility] Work Phone: [phone] Serum or plasma albumin/glob ulin mass ratioon 04-30-2022 Albumin/Globulin [Mass ratio] 0.8 {ratio} 0.9-2.4 [facility] Work Phone: [phone] Serum or plasma calcium maria elena urement (mass/volume)on 04-30-2022 Calcium [Mass/Vol] 9.4 mg/dL 8.5-10.1 [facility] Work Phone: [phone] Serum or plasma creatinine m easurement (mass/volume)on 04-30-2022 Creatinine [Mass/Vol] 0.94 mg/dL 0.55-1.02 [facility] Work Phone: Comment on above: The validity of the calculated GFR & GFRAA in patients over 70 years has not been determined. Clinical correlation is essential. Serum or plasma urea nitroge n measurement (mass/volume)on 04-30-2022 Urea nitrogen [Mass/Vol] 9 mg/dL 7-18 [facility] Work Phone: Squamous epithelial cells de tection in urine sediment by light microscopyon 04-30-2022 Epithelial cells.squamous LM Ql (Urine sed) 0-5 SEEN /hpf 5-10 [facility] Work Phone: [phone] Thin prep Papanicolaou smear with manual screeningon 04-30-2022 Thin prep Papanicolaou smear with manual screening 41 U/L 15-37 [facility] Work Phone: [phone] Comment on above: Moderate Hemolysis, Result may be falsely increased. Thin prep Papanicolaou smear with manual screening 10 5-15 [facility] Work Phone: Urine blood detectionon RBC Ql (U) 10 /ul Negative [facility] Work Phone: [phone] RBC Ql (U) 0-5 SEEN /hpf 0-5 [facility] Work Phone: [phone] Urine clarityon 04-30-2022 Clarity (U) Sl Cldy Clear [facility] Work Phone: [phone] Urine color determinationon 04-30-2022 Color (U) Yellow Yellow [facility] Work Phone: Urine glucose detectionon Glucose Ql (U) 1000 mg/dl Normal [facility] Work Phone: [phone] Urine leukocyte esterase det ection by dipstickon 04-30-2022 Leukocyte esterase Test strip Ql (U) 25 /ul Negative [facility] Work Phone: [phone] Urine pHon 04-30-2022 pH (U) 6.0 [pH] 5.0 - 8.0 [facility] Work Phone: [phone] Urine sediment bacteria coun t by microscopy (number/high power field)on 04-30-2022 Bacteria LM.HPF (Urine sed) [#/Area] 4 /[HPF] None Seen [facility] Work Phone: Urine sediment yeast count b y microscopy (number/high powered field)on 04-30-2022 Yeast LM.HPF (Urine sed) [#/Area] RARE /hpf None Seen [facility] Work Phone: Urine specific gravity measu rementon 04-30-2022 Specific gravity (U) [Rel density] 1.020 1.002-1.030 [facility] Work Phone: Urobilinogen Auto test strip Ql (U)on 04-30-2022 Urobilinogen Ql (U) Normal mg/dl Normal [facility] Work Phone: Absolute lymphocyte counton 01-22-2022 Lymphocytes Auto (Unsp spec) [#/Vol] 3.49 10*3/uL 0.83-4.51 [facility] Work Phone: Basophil percentageon 2021 Basophils/100 WBC (Bld) 0.6 % 0-1 [facility] Work Phone: Chloride [Moles/Vol] 107 mmol/L 98-107 [facility] Work Phone: Eosinophils/100 WBC (Bld) 1.5 % 0-5 [facility] Work Phone: Glucose [Mass/Vol] 204 mg/dL 74-106 [facility] Work Phone: Comment on above: Glucose result great er than or equal to 200 mg/dLsuggests DIABETES MELLITUS per A.D.A. criteria. Neutrophils (Bld) [#/Vol] 5.1 10*3/uL 2.0-7.7 [facility] Work Phone: Neutrophils/100 WBC (Bld) 53.5 % 47-70 [facility] Work Phone: Potassium [Moles/Vol] 4.0 mmol/L 3.5-5.1 [facility] Work Phone: Sodium [Moles/Vol] 139 mmol/L 136-145 [facility] Work Phone: WBC (Bld) [#/Vol] 9.5 10*3/uL 4.4-11.0 [facility] Work Phone: Blood erythrocytes count (nu mber/volume)on 01-22-2022 RBC (Bld) [#/Vol] 4.40 10*6/uL 4.2-5.4 [facility] Work Phone: Blood hemoglobin measurement (mass/volume)on 01-22-2022 Hemoglobin (Bld) [Mass/Vol] 13.4 g/dL 12.0-15.0 [facility] Work Phone: Blood lymphocytes/100 leukoc yteson 01-22-2022 Lymphocytes/100 WBC (Bld) 36.8 % 19-41 [facility] Work Phone: Blood monocytes/100 leukocyt eson 01-22-2022 Monocytes/100 WBC (Bld) 7.1 % 0-10 [facility] Work Phone: Blood platelet mean volumeon 01-22-2022 Platelet mean volume (Bld) [Entitic vol] 9.6 fL 6.2-12.0 [facility] Work Phone: Determination of erythrocyte mean corpuscular volume (MCV)on 01-22-2022 MCV (RBC) [Entitic vol] 94.5 fL 81-99 [facility] Work Phone: Glucose Glucometer (BldC) [M ass/Vol]on 01-22-2022 Glucose [Mass/Vol] 261 mg/dL 74-106 [facility] Work Phone: Comment on above: MANAGEMENT OF PATIEN T CARE PER NURSING PROTOCOL Hematocrit Auto (Bld) [Volum e fraction]on 01-22-2022 Hematocrit (Bld) [Volume fraction] 41.6 % 37-47 [facility] Work Phone: Laboratory - Chemistry and C hemistry - challengeon 01-22-2022 CO2 [Moles/Vol] 27.0 mmol/L 21.0-32.0 [facility] Work Phone: Urea nitrogen/Creatinine [Mass ratio] 16.2 mg/mg 10-20 [facility] Work Phone: [phone] Laboratory - Hematology and Cell countson 01-22-2022 Erythrocyte distribution width (RBC) [Entitic vol] 47.4 fL 35.1-43.9 [facility] Work Phone: [phone] Erythrocyte distribution width (RBC) [Ratio] 13.5 % 11.6-14.6 [facility] Work Phone: [phone] Immature granulocytes/100 WBC (Bld) 0.500 % 0.0-0.9 [facility] Work Phone: [phone] Comment on above: IG% - Immature Granu locytes (promyelocytes, myelocytes and metamyelocytes) > 1% indicates that a LEFT SHIFT is Present. MCH (RBC) [Entitic mass] 30.5 pg 27.0-32.0 [facility] Work Phone: [phone] Nucleated RBC/100 WBC (Bld) [Ratio] 0 % 0-5 [facility] Work Phone: [phone] MCHC Auto (RBC) [Mass/Vol]on 01-22-2022 MCHC (RBC) [Mass/Vol] 32.2 g/dL 32-36 [facility] Work Phone: [phone] Panel Informationon 01-22 Estimated Creatinine Clearance Calc 74.69 ml/min [facility] Work Phone: [phone] Estimated GFR (MDRD) Amer 101 mL/min >60 [facility] Work Phone: [phone] Comment on above: GFR Calc Estimated GFR (MDRD) Non-Af Amer 84 mL/min >60 [facility] Work Phone: [phone] Comment on above: Non- GFR Calc Platelets bldon 01-22-2022 Platelets (Bld) [#/Vol] 277 10*3/uL 150-450 [facility] Work Phone: [phone] Serum or plasma calcium maria elena urement (mass/volume)on 01-22-2022 Calcium [Mass/Vol] 8.6 mg/dL 8.5-10.1 [facility] Work Phone: Serum or plasma creatinine m easurement (mass/volume)on 01-22-2022 Creatinine [Mass/Vol] 0.74 mg/dL 0.55-1.02 [facility] Work Phone: Comment on above: The validity of the calculated GFR & GFRAA in patients over 70 years has not been determined. Clinical correlation is essential. Serum or plasma urea nitroge n measurement (mass/volume)on 01-22-2022 Urea nitrogen [Mass/Vol] 12 mg/dL 7-18 [facility] Work Phone: Thin prep Papanicolaou smear with manual screeningon 01-22-2022 Thin prep Papanicolaou smear with manual screening 5 5-15 [facility] Work Phone: Absolute lymphocyte counton 01-17-2022 Lymphocytes Auto (Unsp spec) [#/Vol] 3.77 10*3/uL 0.83-4.51 [facility] Work Phone: Basophil percentageon 2021 Lactate [Moles/Vol] 2.2 mmol/L 0.4-2.0 [facility] Work Phone: Comment on above: Critical Result(s) C alled at: 21:46:08 01/17/2022 by: Alex Benjamin to Geovanna Berrios RN (MS3). Results read back by same. Basophils/100 WBC (Bld) 0.3 % 0-1 [facility] Work Phone: Chloride [Moles/Vol] 108 mmol/L 98-107 [facility]: Eosinophils/100 WBC (Bld) 1.0 % 0-5 [facility] Work Phone: [phone] Glucose [Mass/Vol] 102 mg/dL 74-106 [facility] Work Phone: Comment on above: Fasting Glucose resu lt from 100 to 125 mg/dL suggests IMPAIRED HOMEOSTASIS per A.D.A. criteria. Lactate [Moles/Vol] 3.1 mmol/L 0.4-2.0 [facility]: Comment on above: Critical Result(s) C alled at: 17:18:10 01/17/2022 by: Alex Clancy RN(ER). Results read back by same. Neutrophils (Bld) [#/Vol] 9.4 10*3/uL 2.0-7.7 [facility] Work Phone: Neutrophils/100 WBC (Bld) 65.4 % 47-70 [facility] Work Phone: [phone] Potassium [Moles/Vol] 3.4 mmol/L 3.5-5.1 [facility] Work Phone: [phone] Sodium [Moles/Vol] 142 mmol/L 136-145 [facility]: [phone] WBC (Bld) [#/Vol] 14.4 10*3/uL 4.4-11.0 [facility] Work Phone: Basophil percentage 25-50 SEEN /hpf 0-5 [facility] Work Phone: [phone] Bilirubin Test strip Ql (U)o n 01-17-2022 Bilirubin Ql (U) Negative Negative [facility] Work Phone: Blood erythrocytes count (nu mber/volume)on 01-17-2022 RBC (Bld) [#/Vol] 4.83 10*6/uL 4.2-5.4 [facility] Work Phone: Blood hemoglobin measurement (mass/volume)on 01-17-2022 Hemoglobin (Bld) [Mass/Vol] 14.8 g/dL 12.0-15.0 [facility] Work Phone: Blood lymphocytes/100 leukoc yteson 01-17-2022 Lymphocytes/100 WBC (Bld) 26.2 % 19-41 [facility] Work Phone: Blood monocytes/100 leukocyt eson 01-17-2022 Monocytes/100 WBC (Bld) 6.6 % 0-10 [facility] Work Phone: [phone] Blood platelet mean volumeon 01-17-2022 Platelet mean volume (Bld) [Entitic vol] 9.0 fL 6.2-12.0 [facility] Work Phone: [phone] Culture, urineon 01-17-2022 Bacteria identified Cx Nom (U) Escherichia coli [facility] Work Phone: [phone] Determination of erythrocyte mean corpuscular volume (MCV)on 01-17-2022 MCV (RBC) [Entitic vol] 93.4 fL 81-99 [facility] Work Phone: [phone] Hematocrit Auto (Bld) [Volum e fraction]on 01-17-2022 Hematocrit (Bld) [Volume fraction] 45.1 % 37-47 [facility] Work Phone: [phone] Ketones Test strip Ql (U)on 01-17-2022 Ketones Ql (U) 5 mg/dl Negative [facility] Work Phone: [phone] Laboratory - Chemistry and C hemistry - challengeon 01-17-2022 CO2 [Moles/Vol] 27.0 mmol/L 21.0-32.0 [facility] Work Phone: [phone] Urea nitrogen/Creatinine [Mass ratio] 10.4 mg/mg 10-20 [facility] Work Phone: [phone] Laboratory - Hematology and Cell countson 01-17-2022 Erythrocyte distribution width (RBC) [Entitic vol] 47.9 fL 35.1-43.9 [facility] Work Phone: [phone] Erythrocyte distribution width (RBC) [Ratio] 13.9 % 11.6-14.6 [facility] Work Phone: [phone] Immature granulocytes/100 WBC (Bld) 0.500 % 0.0-0.9 [facility] Work Phone: [phone] Comment on above: IG% - Immature Granu locytes (promyelocytes, myelocytes and metamyelocytes) > 1% indicates that a LEFT SHIFT is Present. MCH (RBC) [Entitic mass] 30.6 pg 27.0-32.0 [facility] Work Phone: Nucleated RBC/100 WBC (Bld) [Ratio] 0 % 0-5 [facility] Work Phone: [phone] MCHC Auto (RBC) [Mass/Vol]on 01-17-2022 MCHC (RBC) [Mass/Vol] 32.8 g/dL 32-36 [facility] Work Phone: [phone] Mucus LM Ql (Urine sed)on Mucus Ql (Urine sed) 0 SEEN /hpf [facility] Work Phone: [phone] Nitrite Test strip Ql (U)on 01-17-2022 Nitrite Ql (U) Positive Negative [facility] Work Phone: No Panel Informationon 01-17 Estimated Creatinine Clearance Calc 71.78 ml/min [facility] Work Phone: Estimated GFR (MDRD) Amer 97 mL/min >60 [facility] Work Phone: Comment on above: GFR Calc Estimated GFR (MDRD) Non-Af Amer 80 mL/min >60 [facility] Work Phone: Comment on above: Non- GFR Calc Platelets bldon 01-17-2022 Platelets (Bld) [#/Vol] 339 10*3/uL 150-450 [facility] Work Phone: Protein Test strip Ql (U)on 01-17-2022 Protein Ql (U) 30 mg/dl Negative [facility] Work Phone: [phone] Serum or plasma calcium maria elena urement (mass/volume)on 01-17-2022 Calcium [Mass/Vol] 8.9 mg/dL 8.5-10.1 [facility] Work Phone: [phone] Serum or plasma creatinine m easurement (mass/volume)on 01-17-2022 Creatinine [Mass/Vol] 0.77 mg/dL 0.55-1.02 [facility] Work Phone: Comment on above: The validity of the calculated GFR & GFRAA in patients over 70 years has not been determined. Clinical correlation is essential. Serum or plasma urea nitroge n measurement (mass/volume)on 01-17-2022 Urea nitrogen [Mass/Vol] 8 mg/dL 7-18 [facility] Work Phone: [phone] Squamous epithelial cells de tection in urine sediment by light microscopyon 01-17-2022 Epithelial cells.squamous LM Ql (Urine sed) 5-10 SEEN /hpf 5-10 [facility] Work Phone: [phone] Thin prep Papanicolaou smear with manual screeningon 01-17-2022 Thin prep Papanicolaou smear with manual screening 7 5-15 [facility] Work Phone: [phone] Urine blood detectionon 12-24 RBC Ql (U) 25 /ul Negative [facility] Work Phone: [phone] RBC Ql (U) 0-5 SEEN /hpf 0-5 [facility] Work Phone: [phone] Urine clarityon 01-17-2022 Clarity (U) Cloudy Clear [facility] Work Phone: Urine color determinationon 01-17-2022 Color (U) Yellow Yellow [facility] Work Phone: [phone] Urine glucose detectionon Glucose Ql (U) 50 mg/dl Normal [facility] Work Phone: [phone] Urine leukocyte esterase det ection by dipstickon 01-17-2022 Leukocyte esterase Test strip Ql (U) 500 /ul Negative [facility] Work Phone: [phone] Urine pHon 01-17-2022 pH (U) 6.0 [pH] 5.0 - 8.0 [facility] Work Phone: [phone] Urine sediment bacteria coun t by microscopy (number/high power field)on 01-17-2022 Bacteria LM.HPF (Urine sed) [#/Area] 4 /[HPF] None Seen [facility] Work Phone: [phone] Urine specific gravity measu rementon 01-17-2022 Specific gravity (U) [Rel density] 1.020 1.002-1.030 [facility] Work Phone: Urobilinogen Auto test strip Ql (U)on 01-17-2022 Urobilinogen Ql (U) Normal mg/dl Normal [facility] Work Phone: Absolute lymphocyte counton 01-02-2022 Lymphocytes Auto (Unsp spec) [#/Vol] 4.60 10*3/uL 0.83-4.51 [facility] Work Phone: Basophil percentageon 2021 Bilirubin [Mass/Vol] 0.40 mg/dL 0.20-1.00 [facility] Work Phone: Comment on above: For patients on eltr ombopag therapy, use of Dimension [place] TBIL is not recommended. Chloride [Moles/Vol] 106 mmol/L 98-107 [facility] Work Phone: Glucose [Mass/Vol] 294 mg/dL 74-106 [facility] Work Phone: Comment on above: Glucose result great er than or equal to 200 mg/dLsuggests DIABETES MELLITUS per A.D.A. criteria. Potassium [Moles/Vol] 4.1 mmol/L 3.5-5.1 [facility] Work Phone: Protein [Mass/Vol] 6.5 g/dL 6.4-8.2 [facility] Work Phone: Sodium [Moles/Vol] 137 mmol/L 136-145 [facility] Work Phone: Basophil percentage 25-50 SEEN /hpf 0-5 [facility] Work Phone: Basophils/100 WBC (Bld) 0.5 % 0-1 [facility] Work Phone: Eosinophils/100 WBC (Bld) 0.8 % 0-5 [facility] Work Phone: Neutrophils (Bld) [#/Vol] 11.2 10*3/uL 2.0-7.7 [facility] Work Phone: Neutrophils/100 WBC (Bld) 65.1 % 47-70 [facility] Work Phone: WBC (Bld) [#/Vol] 17.2 10*3/uL 4.4-11.0 [facility] Work Phone: Bilirubin Test strip Ql (U)o n 01-02-2022 Bilirubin Ql (U) Negative Negative [facility] Work Phone: [phone] Blood erythrocytes count (nu mber/volume)on 01-02-2022 RBC (Bld) [#/Vol] 5.23 10*6/uL 4.2-5.4 [facility] Work Phone: [phone] Blood hemoglobin measurement (mass/volume)on 01-02-2022 Hemoglobin (Bld) [Mass/Vol] 15.9 g/dL 12.0-15.0 [facility] Work Phone: Blood lymphocytes/100 leukoc yteson 01-02-2022 Lymphocytes/100 WBC (Bld) 26.8 % 19-41 [facility] Work Phone: Blood monocytes/100 leukocyt eson 01-02-2022 Monocytes/100 WBC (Bld) 5.9 % 0-10 [facility] Work Phone: [phone] Blood platelet adequacy dete ction by light microscopyon 01-02-2022 Platelets LM Ql (Bld) ADEQUATE ADEQ [facility] Work Phone: [phone] Blood platelet mean volumeon 01-02-2022 Platelet mean volume (Bld) [Entitic vol] 9.0 fL 6.2-12.0 [facility] Work Phone: Culture, urineon 01-02-2022 Bacteria identified Cx Nom (U) Escherichia coli [facility] Work Phone: [phone] Bacteria identified Cx Nom (U) Positive [facility] Work Phone: [phone] Determination of erythrocyte mean corpuscular volume (MCV)on 01-02-2022 MCV (RBC) [Entitic vol] 92.9 fL 81-99 [facility] Work Phone: [phone] Hematocrit Auto (Bld) [Volum e fraction]on 01-02-2022 Hematocrit (Bld) [Volume fraction] 48.6 % 37-47 [facility] Work Phone: [phone] Ketones Test strip Ql (U)on 01-02-2022 Ketones Ql (U) 15 mg/dl Negative [facility] Work Phone: [phone] Laboratory - Chemistry and C hemistry - challengeon 01-02-2022 ALP [Catalytic activity/Vol] 68 U/L 45-117 [facility] Work Phone: [phone] ALT [Catalytic activity/Vol] 19 U/L 13-56 [facility] Work Phone: [phone] CO2 [Moles/Vol] 25.0 mmol/L 21.0-32.0 [facility] Work Phone: [phone] Globulin (S) [Mass/Vol] 3.3 g/dL 2.2-4.2 [facility] Work Phone: [phone] Urea nitrogen/Creatinine [Mass ratio] 10.6 mg/mg 10-20 [facility] Work Phone: [phone] Laboratory - Hematology and Cell countson 01-02-2022 Erythrocyte distribution width (RBC) [Entitic vol] 47.4 fL 35.1-43.9 [facility] Work Phone: [phone] Erythrocyte distribution width (RBC) [Ratio] 14.0 % 11.6-14.6 [facility] Work Phone: [phone] Immature granulocytes/100 WBC (Bld) 0.900 % 0.0-0.9 [facility] Work Phone: [phone] Comment on above: IG% - Immature Granu locytes (promyelocytes, myelocytes and metamyelocytes) > 1% indicates that a LEFT SHIFT is Present. MCH (RBC) [Entitic mass] 30.4 pg 27.0-32.0 [facility] Work Phone: [phone] Nucleated RBC/100 WBC (Bld) [Ratio] 0 % 0-5 [facility] Work Phone: [phone] MCHC Auto (RBC) [Mass/Vol]on 01-02-2022 MCHC (RBC) [Mass/Vol] 32.7 g/dL 32-36 [facility] Work Phone: Mucus LM Ql (Urine sed)on Mucus Ql (Urine sed) 0 SEEN /hpf [facility] Work Phone: Nitrite Test strip Ql (U)on 01-02-2022 Nitrite Ql (U) Negative Negative [facility] Work Phone: No Panel Informationon 01-02 Estimated Creatinine Clearance Calc 62.59 ml/min [facility] Work Phone: [phone] Estimated GFR (MDRD) Amer 86 mL/min >60 [facility] Work Phone: Comment on above: GFR Calc Estimated GFR (MDRD) Non-Af Amer 71 mL/min >60 [facility] Work Phone: Comment on above: Non- GFR Calc Platelets bldon 01-02-2022 Platelets (Bld) [#/Vol] 456 10*3/uL 150-450 [facility] Work Phone: Protein Test strip Ql (U)on 01-02-2022 Protein Ql (U) 30 mg/dl Negative [facility] Work Phone: RBC morphologyon 01-02-2022 RBC morphology finding Nom (Bld) NORM C+C NORMAL NORM C&C [facility] Work Phone: [phone] Serum or plasma albumin maria elena urement (mass/volume)on 01-02-2022 Albumin [Mass/Vol] 3.2 g/dL 3.2-5.0 [facility] Work Phone: Serum or plasma albumin/glob ulin mass ratioon 01-02-2022 Albumin/Globulin [Mass ratio] 1.0 {ratio} 0.9-2.4 [facility] Work Phone: Serum or plasma calcium maria elena urement (mass/volume)on 01-02-2022 Calcium [Mass/Vol] 8.5 mg/dL 8.5-10.1 [facility] Work Phone: Serum or plasma creatinine m easurement (mass/volume)on 01-02-2022 Creatinine [Mass/Vol] 0.85 mg/dL 0.55-1.02 [facility] Work Phone: Comment on above: The validity of the calculated GFR & GFRAA in patients over 70 years has not been determined. Clinical correlation is essential. Serum or plasma urea nitroge n measurement (mass/volume)on 01-02-2022 Urea nitrogen [Mass/Vol] 9 mg/dL 7-18 [facility] Work Phone: [phone] Squamous epithelial cells de tection in urine sediment by light microscopyon 01-02-2022 Epithelial cells.squamous LM Ql (Urine sed) 0-5 SEEN /hpf 5-10 [facility] Work Phone: Thin prep Papanicolaou smear with manual screeningon 01-02-2022 Thin prep Papanicolaou smear with manual screening 26 U/L 15-37 [facility] Work Phone: [phone] Thin prep Papanicolaou smear with manual screening 6 5-15 [facility] Work Phone: Urine blood detectionon 12-23 RBC Ql (U) 25 /ul Negative [facility] Work Phone: RBC Ql (U) 0-5 SEEN /hpf 0-5 [facility] Work Phone: [phone] Urine clarityon 01-02-2022 Clarity (U) Sl. Cloudy Clear [facility] Work Phone: Urine color determinationon 01-02-2022 Color (U) Yellow Yellow [facility] Work Phone: [phone] Urine glucose detectionon Glucose Ql (U) 250 mg/dl Normal [facility] Work Phone: [phone] Urine leukocyte esterase det ection by dipstickon 01-02-2022 Leukocyte esterase Test strip Ql (U) 500 /ul Negative [facility] Work Phone: [phone] Urine pHon 01-02-2022 pH (U) 6.0 [pH] 5.0 - 8.0 [facility] Work Phone: Urine sediment bacteria coun t by microscopy (number/high power field)on 01-02-2022 Bacteria LM.HPF (Urine sed) [#/Area] 1 /[HPF] None Seen [facility] Work Phone: Urine specific gravity measu rementon 01-02-2022 Specific gravity (U) [Rel density] 1.025 1.002-1.030 [facility] Work Phone: Urobilinogen Auto test strip Ql (U)on 01-02-2022 Urobilinogen Ql (U) 1 mg/dl Normal [facility] Work Phone: UA DIP, URINE (POC)on 2021 BILIRUBIN UA (POCT) Negative Negative [facility] CLARITY UA (POCT) Slightly Cloudy Cl [facility] COLOR UA (POCT) Dark yellow [facility] GLUCOSE UA (POCT) 500 mg/dL Abnormal Negative mg/dL [facility] HEMOGLOBIN/BLOOD UA (POCT) Negative Negative [facility] KETONE UA (POCT) 15 mg/dL Abnormal Negative mg/dL [facility] LEUKOCYTES UA (POCT) Trace Abnormal Negative [facility] NITRITE UA (POCT) Positive Abnormal Negative [facility] PH UA (POCT) 5.5 4.5 - 8.0 [facility] Protein Ql (U) Negative Negative mg/dL [facility] SPECIFIC GRAVITY UA (POCT) >=1.030 1.005 - 1.030 [facility] UROBILINOGEN UA (POCT) 0.2 E.U./dL Christine l E.U./dL [facility] COVID-19/INFLUENZA A,B MOLEC ULARon 07-16-2021 SARS-CoV-2 (COVID-19) Ab IA Ql SARS-COV-2 RNA (HEIDI): Not Detected INFLUENZA A (HEIDI): Not Detected INFLUENZA B (HEIDI): Not Detected Normal Not Detected [facility] Comment on above: Order Comment: [...] at the following links: For Healthcare Providers: https://www.theDrop.gov/media/825944/download ? For Patients: https://www.fda.gov/media/736216/download Performed By: #### L [id number] #### [facility] [address] [place] [address] Phillip Badillo M.D. [id number] XR Chest PA and Lateralon IMPRESSION: No acute radiographic abnormality. Final Touch Up Painter: JOHNIE Transcribe Date/Time: Apr 11 2021 1:51P Dictated by : ELIJAH FORD DO This examination was interpreted and the report reviewed and electronically signed by: ELIJAH FORD DO on Apr 11 2021 1:53PM [facility] DIVISION OF RADIOLOGY * * *Final [...] thoracic spine. DIVISION OF RADIOLOGY Provider, [facility] Jose Carlos Agrueta - 04/11/2021 * * *Final Report* * [...] spine. IMPRESSION IMPRESSION: No acute radiographic abnormality. Final Touch Up Painter: JOHNIE Transcribe Date/Time: Apr 11 2021 1:51P Dictated by : ELIJAH FORD DO This examination was interpreted and the report reviewed and electronically signed by: ELIJAH OFRD DO on Apr 11 2021 1:53PM EST [facility] Radiology Study observation (narrative) Germaine Julian XR Chest PA and LateralOrder ed By: [facility] Provider on 04-11-2021 [facility] HISTORY PHYSICALon HISTORY PHYSICAL HNO ID: [id number] Author: Maryellen Barrera MD Service: Interventional Cardiology [...] December 29, 2020 TIME: 8:10 AM Normal [facility] CNPNon 12-11-2020 CNPN Telephone ([facility]) IVET VALERO ([id number]) 1955 F Date Time Provider Department 12/11/20 MARYELLEN BARRERA During your visit today, we recorded the following information about you: Selena Moyapkins [facility] 12/11/2020 12:27 PM Signed Schedule [facility] on 12/29/[address] Bruce Morales 12/11/2020 1:25 PM Signed Patient scheduled for left heart cath, with Dr Barrera on 12/29/20. Instructions reviewed. Questions answered. Patient verbalized understanding. Instructions were as follows: -Arrive to [facility] HAND Entrance at time assigned by [facility] laborer steel handling staff in phone call 2-5 PM 12/28/20 [...] drive you home from your procedure. -laborer steel handling policy is pt not be alone first [...] laboratory examination [Z01.812] Order(s):CBC [SQCBC] Order #: [id number] FUTURE BASIC METABOLIC PNL [SQBMP] Order #: [id number] FUTURE PRE-PROCEDURE AND PRE-OPERATIVE COVID [SQPOCOVD] Order #: [id number] FUTURE Prescriptions as of 12/11/2020 Sig: CARVEDILOL [...] INSOMNIA [G47.00] 05/25/2008 MGRN W [facility] WO [facility] MGRN [G43.109] PANIC DISORDER WITHOUT [...] Encounter Status:Closed by ASMITA MORALES on 12/11/20 [facility] XR Chest PA and Lateralon IMPRESSION: No acute radiographic abnormality. Final Touch Up Painter: JOHNIE Transcribe Date/Time: Jul 27 2020 12:52P Dictated by : ANA HUNTLEY MD This examination was interpreted and the report reviewed and electronically signed by: ANA HUNTLEY MD on Jul 27 2020 12:54PM [facility] DIVISION OF RADIOLOGY * * *Final [...] spine. IMPRESSION IMPRESSION: No acute radiographic abnormality. Final Touch Up Painter: PSCB Transcribe Date/Time: Jul 27 2020 12:52P Dictated by : ANA HUNTLEY MD This examination was interpreted and the report reviewed and electronically signed by: ANA HUNTLEY MD on Jul 27 2020 12:54PM EST [facility] Radiology Study observation (narrative) Germaine Julian XR Chest PA and LateralOrder ed By: Ccf Provider on 07-27-2020 [facility] CBC + DIFFon 04-12-2020 Basophils (Bld) [#/Vol] 0.20 x10EE3/UL High 0.00 - 0 .10 [facility] Comment on above: Performed By: #### 2 [id number] #### [place] [address] Basophils/100 WBC (Bld) 1.2 % Normal 0.0 - 2.0 [facility] Comment on above: Performed By: #### 2 [id number] #### [facility],[address] [place] [address] CBC + DIFF Normal [facility] Comment on above: Result Comment: CBC- COMPLETE BLOOD COUNT Performed By: #### 2 [id number] #### [place] [address] Eosinophils (Bld) [#/Vol] 0.10 x10EE3/UL Normal 0.00 - 0.50 [facility] Comment on above: Performed By: #### 2 [id number] #### [facility],[address] [place], [place] [id number] Eosinophils/100 WBC (Bld) 0.6 % Normal 0.0 - 7.0 [facility] Comment on above: Performed By: #### 2 36057 #### [place] [address] Erythrocyte distribution width (RBC) [Ratio] 13.5 % Normal 12.0 - 15.6 [facility] Comment on above: Performed By: #### 2 [id number] #### [facility],[address] [place] [address] Hematocrit (Bld) [Volume fraction] 44.7 % Normal 34.0 - 46.0 [facility] Comment on above: Performed By: #### 2 73314 #### [place] [address] Hemoglobin (Bld) [Mass/Vol] 15.4 g/dL Normal 12.0 - 16.0 [facility] Comment on above: Performed By: #### 2 25585 #### [facility],[address] [place] [address] Lymphocytes (Bld) [#/Vol] 5.20 x10EE3/UL High 0.80 - 2.80 [facility] Comment on above: Performed By: #### 2 81455 #### [facility],[address] [place] [address] Lymphocytes/100 WBC (Bld) 29.0 % Normal 20.0 - 45.0 [facility] Comment on above: Performed By: #### 2 20918 #### [facility],[address] [place] [address] MANUAL DIFF N/A Normal [facility] Comment on above: Performed By: #### 2 13059 #### [facility],[address] [place] [address] MCH (RBC) [Entitic mass] 30 pg Normal 27 - 33 [facility] Comment on above: Performed By: #### 2 [id number] #### [facility] [facility],[address] [place] [address] 32569 MCHC (RBC) [Mass/Vol] 34 X10 3 Normal 32 - 36 [facility] Comment on above: Performed By: #### 2 28630 #### [facility],[address] [place] [address] 02873 MCV (RBC) [Entitic vol] 88 fL Normal 80 - 99 [facility] Comment on above: Performed By: #### 2 63180 #### [facility],[address] [place] [address] 01689 Monocytes (Bld) [#/Vol] 0.90 x10EE3/UL Normal 0.20 - 1 .00 [facility] Comment on above: Performed By: #### 2 54426 #### [facility],[address] [place] [address] 50382 MONOS % 5.2 % Normal 0.0 - 10.0 [facility] Comment on above: Performed By: #### 2 54198 #### [facility],[address] [place] [address] 78124 Morphology Gab (Bld) [Interp] N/A Normal [facility] Comment on above: Performed By: #### 2 66458 #### [facility],[address] [place] [address] 74361 Neutrophils (Bld) [#/Vol] 11.50 x10EE3/UL High 1.50 - 7.10 [facility] Comment on above: Performed By: #### 2 79246 #### [facility],[address] [place] [address] 86589 Neutrophils/100 WBC (Bld) 64.0 % Normal 46.0 - 76.0 [facility] Comment on above: Performed By: #### 2 25791 #### [address] [address] Platelet mean volume (Bld) [Entitic vol] 6.1 fL Low 6.6 - 10.5 [facility] Comment on above: Result Comment: AUTO MATED DIFFERENTIAL Performed By: #### 2 21114 #### [address] [address] Platelets (Bld) [#/Vol] 417 x10EE3/UL Normal 150 - 450 [facility] Comment on above: Performed By: #### 2 14793 #### [address] [address] RBC (Bld) [#/Vol] 5.07 x 10EE6/UL Normal 4.10 - 5.30 [facility] Comment on above: Performed By: #### 2 97816 #### [address] [address] WBC (Bld) [#/Vol] 17.9 x 10EE3/UL High 4.5 - 10.8 [facility] Comment on above: Performed By: #### 2 78247 #### [facility],[address] [place] [address] 83397 CHEST 1 VIEWon 04-12-2020 CHEST 1 VIEW [place] [address] Patient: IVET VALERO Phone#: : 1955 Age: 65 Gender: F Pt. Type: ER Account: [id number] Location: [facility] Ordering: TOSHIA ROMERO Exam Date: 04/12/2020/9:06 Family Phys: RICCI COLE Charge Code: 464273 Physician: [place] Order #: [id number] DLP Dose#: PROCEDURE: X-RAY CHEST 1 VIEW COMPARISON: [facility], XR, CHEST PA/LAT, 09/29/2016, 18:37. INDICATIONS: [...] Falcon MD on 04/12/2020 at 9:22 Normal [facility] CMP with eGFRon 04-12-2020 Age - Reported 65 years Normal [facility] Comment on above: Performed By: #### 2 31192 #### [facility],[address] [place] [address] 12164 Albumin [Mass/Vol] 4.1 g/dL Normal 3.4 - 4.8 [facility] Comment on above: Performed By: #### 2 96454 #### [facility],[address] [place] [address] 59555 Albumin/Globulin [Mass ratio] 1.6 {ratio} Normal 0.9 - 1.6 [facility] Comment on above: Performed By: #### 2 96110 #### [facility],[address] [place] [address] 13688 ALK PHOS 54 U/L Normal 38 - 126 [facility] Comment on above: Performed By: #### 2 79349 #### [facility],[address] [place] [address] 74387 ALT/SGPT 17 U/L Normal 8 - 35 [facility] Comment on above: Performed By: #### 2 94569 #### [facility],[address] [place] [address] 96938 Anion gap [Moles/Vol] 13 mmol/L Normal 10 - 20 [facility] Comment on above: Performed By: #### 2 69653 #### [facility],[address] [place] [address] 63186 AST/SGOT 15 U/L Normal 13 - 39 [facility] Comment on above: Performed By: #### 2 08403 #### [facility],[address] [place] [address] 80203 B/C RATIO 20 ratio Normal 0 - 30 [facility] Comment on above: Performed By: #### 2 96597 #### [facility],[address] [place] [address] 31323 Bilirubin [Mass/Vol] 0.6 mg/dL Normal 0.0 - 1.5 [facility] Comment on above: Performed By: #### 2 25906 #### [facility],[address] [place] [address] 47748 Calcium [Mass/Vol] 9.1 mg/dL Normal 8.6 - 10.2 [facility] Comment on above: Performed By: #### 2 45147 #### [facility],[address] [place] [address] 63536 Chloride [Moles/Vol] 102 mmol/L Normal 98 - 107 [facility] Comment on above: Performed By: #### 2 26251 #### [facility],[address] [place] [address] 88381 CO2 [Moles/Vol] 25.9 mmol/L Normal 21.0 - 31.0 [facility] Comment on above: Performed By: #### 2 11531 #### [facility],[address] [place] [address] 70990 Creatinine [Mass/Vol] 0.7 mg/dL Normal 0.6 - 1.2 [facility] Comment on above: Performed By: #### 2 10417 #### [facility],[address] [place] [address] 62767 GFR/1.73 sq M predicted among non-blacks MDRD (S/P/Bld) [Vol rate/Area] Normal [facility] Comment on above: Result Comment: COMP REHENSIVE METABOLIC PANEL Performed By: #### 2 79708 #### [address] [address] GFR/1.73 sq M predicted among non-blacks MDRD (S/P/Bld) [Vol rate/Area] mL/min/{1.73_m2} Normal 60 - 999 [facility] Comment on above: Result Comment: ACCO RDING TO THE NATIONAL KIDNEY DISEASE EDUCATION PROGRAM(NKDE), A NORMAL eGFR IS A VALUE GREATER THAN OR EQUAL TO 60 ML/MIN/1.73 SQ METERS. CHRONIC KIDNEY DISEASE: <60mL/MIN/1.73 SQ METERS KIDNEY FAILURE: <15mL/MIN/1.73 SQ METERS THIS TEST SHOULD ONLY BE USED FOR PATIENTS 18 YEARS OF AGE AND OLDER. Performed By: #### 2 10813 #### [facility],[address] [place] [address] 13296 Globulin (S) [Mass/Vol] 2.6 g/dL Normal 1.5 - 3.8 [facility] Comment on above: Performed By: #### 2 06116 #### [facility],[address] [place] [address] 64575 Glucose [Mass/Vol] 168 mg/dL High 74 - 106 [facility] Comment on above: Performed By: #### 2 07440 #### [facility],[address] [place] [address] 66416 Potassium [Moles/Vol] 4.1 mmol/L Normal 3.5 - 5.1 [facility] Comment on above: Performed By: #### 2 69990 #### [address] [address] Protein [Mass/Vol] 6.7 g/dL Normal 6.4 - 8.3 [facility] Comment on above: Performed By: #### 2 04035 #### [address] [address] Sodium [Moles/Vol] 137 mmol/L Normal 136 - 145 [facility] Comment on above: Performed By: #### 2 14073 #### [address] [address] Urea nitrogen [Mass/Vol] 14 mg/dL Normal 6 - 20 [facility] Comment on above: Performed By: #### 2 51892 #### [address] [address] URINALYSISon 04-12-2020 Amorphous NONE Normal [facility] Comment on above: Performed By: #### 2 22953 #### [address] [address] Bacteria LM.HPF (Urine sed) [#/Area] NONE Normal [facility] Comment on above: Performed By: #### 2 15690 #### [address] [address] Bilirubin [Mass/Vol] Negative Normal NORMAL: NEGATIVE [facility] Comment on above: Performed By: #### 2 39981 #### [address] [address] Blood Negative Normal NORMAL: NEGATIVE [facility] Comment on above: Performed By: #### 2 33382 #### [facility],[address] [place] [address] 49357 Casts LM.LPF (Urine sed) [#/Area] NONE Normal [facility] Comment on above: Performed By: #### 2 16416 #### [facility],[address] [place] [address] 41013 Clarity (U) clear Normal NORMAL: CLEAR [facility] Comment on above: Performed By: #### 2 35928 #### [facility],[address] [place] [address] Color (U) p.yel Normal NORMAL: YELLOW [facility] Comment on above: Performed By: #### 2 98424 #### [facility],[address] [place] [address] Crystals LM Nom (Urine sed) NONE Normal [facility] Comment on above: Performed By: #### 2 44792 #### [facility],[address] [place] [address] 69893 Epi Cells NONE Normal [facility] Comment on above: Performed By: #### 2 26083 #### [facility],[address] [place] [address] 03225 Glucose [Mass/Vol] 50 Abnormal NORMAL: NORMAL [facility] Comment on above: Performed By: #### 2 22755 #### [facility],[address] [place] [address] 10388 Ketone Negative Normal NORMAL: NEGATIVE [facility] Comment on above: Performed By: #### 2 28986 #### [facility],[address] [place] [address] 78306 Microscopic SEE BELOW Normal [facility] Comment on above: Result Comment: MICR OSCOPIC Performed By: #### 2 94899 #### [facility],[address] [place] [address]76 Mucous NONE Normal [facility] Comment on above: Performed By: #### 2 81326 #### [facility],[address] [place] [address] Nitrite Ql (U) Negative Normal NORMAL: NEGATIVE [facility] Comment on above: Performed By: #### 2 09848 #### [facility],[address] [place] [address] pH (Bld) 6 Normal NORMAL: 5.0-8.0 [facility] Comment on above: Performed By: #### 2 75596 #### [facility],[address] [place] [address] Protein (U) [Mass/Vol] Negative Normal CHRISTINE L: NEGATIVE [facility] Comment on above: Performed By: #### 2 11578 #### [facility],[address] [place] [address] Rbc NONE Normal 0-3/hpf [facility] Comment on above: Performed By: #### 2 32359 #### [facility],[address] [place] [address] Sp Pickrell 1.010 Normal NORMAL: 1.010-1.030 [facility] Comment on above: Performed By: #### 2 40916 #### [facility],[address] [place] [address] Specimen type Nom (Spec) Void Normal [facility] Comment on above: Performed By: #### 2 95119 #### [facility],[address] [place] [address] Urobilinog NORM Normal NORMAL: NORMAL [facility] Comment on above: Performed By: #### 2 65091 #### [facility],[address] [place] [address] Wbc 1-5 Normal 0-5/hpf [facility] Comment on above: Performed By: #### 2 11693 #### [facility],[address] [place] [address] WBC (Bld) [#/Vol] 25 Abnormal NORMAL: NEGATIVE [facility] Comment on above: Performed By: #### 2 59519 #### [facility],[address] [place], [place] [address] Yeast LM Ql (Urine sed) 1+ Normal J l [facility] Comment on above: Performed By: #### 2 49961 #### [facility],[address] [place], [place] [address] Culture, urine Bacteria identified Cx Nom (U) Escherichia coli [facility] Work Phone: Bacteria identified Cx Nom (U) Positive [facility] Work Phone: Laboratory - Microbiology an d Antimicrobial susceptibility Bacteria identified Cx Nom (Bld) No growth in 5 days. [facility] Work Phone: Vital Signs Date Time Vital Sign Value Performing Clinician Facility 05-15-2025 04:00-0400 Heart rate 89 /min Dr. Ricci Cole MD Work Phone: [facility] 05-15-2025 04:00-0400 Respiratory rate 18 /min Dr. Ricci Cole MD Work Phone: [facility] 05-15-2025 04:00-0400 SaO2% (BldA) [Mass fraction] 98 % Dr. Ricci Cole MD Work Phone: [facility] 05-15-2025 03:49-0400 Body temperature 98.2 [degF] Dr. Ricci Cole MD Work Phone: [facility] 05-15-2025 03:49-0400 Diastolic blood pressure 72 mm[Hg] Dr. Ricci Cole MD Work Phone: [facility] 05-15-2025 03:49-0400 Systolic blood pressure 173 mm[Hg] Dr. Ricci Cole MD Work Phone: [facility] 05-15-2025 00:25-0400 Body height 170.[address] Ricci Cole MD Work Phone: [facility] 05-15-2025 00:25-0400 Body mass index (BMI) [Ratio] 37.2 kg/m2 Dr. Ricci Cole MD Work Phone: [facility] 05-15-2025 00:25-0400 Body weight 107.[address] Ricci Cole MD Work Phone: [facility] 05-06-2025 09:08-0400 Diastolic blood pressure 76 mm[Hg] Smiley Suppan PEDIATRIC ASSOCIATE.[employer] OPERATOR Work Phone: [facility] 05-06-2025 09:08-0400 Systolic blood pressure 132 mm[Hg] Smiley Suppan PEDIATRIC ASSOCIATE.[employer] OPERATOR Work Phone: [facility] 05-06-2025 08:52-0400 Body mass index (BMI) [Ratio] 40.04 kg/m2 Smiley Suppan PEDIATRIC ASSOCIATE.[employer] OPERATOR Work Phone: [facility] 05-06-2025 08:52-0400 Body temperature 97.81 [degF] Smiley Suppan PEDIATRIC ASSOCIATE.[employer] OPERATOR Work Phone: [facility] 05-06-2025 08:52-0400 Body weight 102.51 kg Smiley Suppan PEDIATRIC ASSOCIATE.[employer] OPERATOR Work Phone: [facility] 05-06-2025 08:52-0400 Heart rate 103 /min Smiley Suppan PEDIATRIC ASSOCIATE.[employer] OPERATOR Work Phone: [facility] 05-06-2025 08:52-0400 SaO2% (BldA) [Mass fraction] 98 % Smiley Suppan PEDIATRIC ASSOCIATE.[employer] OPERATOR Work Phone: [facility] 03-10-2025 10:45-0400 Body temperature 99 [degF] Smiley Suppan PEDIATRIC ASSOCIATE.[employer] OPERATOR Work Phone: [facility] 03-10-2025 10:45-0400 Diastolic blood pressure 78 mm[Hg] Smiley Suppan PEDIATRIC ASSOCIATE.[employer] OPERATOR Work Phone: [facility] 03-10-2025 10:45-0400 Heart rate 110 /min Smiley Suppan PEDIATRIC ASSOCIATE.[employer] OPERATOR Work Phone: [facility] 03-10-2025 10:45-0400 SaO2% (BldA) [Mass fraction] 95 % Smiley Suppan PEDIATRIC ASSOCIATE.[employer] OPERATOR Work Phone: [facility] 03-10-2025 10:45-0400 Systolic blood pressure 140 mm[Hg] Smiley Suppan PEDIATRIC ASSOCIATE.[employer] OPERATOR Work Phone: [facility] 03-01-2025 09:34-0400 Body height 160 cm Smiley Suppan PEDIATRIC ASSOCIATE.[employer] OPERATOR Work Phone: [facility] 03-01-2025 09:34-0400 Body mass index (BMI) [Ratio] 39.87 kg/m2 Smiley Suppan PEDIATRIC ASSOCIATE.[employer] OPERATOR Work Phone: [facility] 03-01-2025 09:34-0400 Body temperature 98.49 [degF] Smiley Suppan PEDIATRIC ASSOCIATE.[employer] OPERATOR Work Phone: [facility] 03-01-2025 09:34-0400 Body weight 102.06 kg Smiley Suppan PEDIATRIC ASSOCIATE.[employer] OPERATOR Work Phone: [facility] 03-01-2025 09:34-0400 Diastolic blood pressure 68 mm[Hg] Smiley Suppan PEDIATRIC ASSOCIATE.[employer] OPERATOR Work Phone: [facility] 03-01-2025 09:34-0400 Heart rate 110 /min Smiley Suppan PEDIATRIC ASSOCIATE.[employer] OPERATOR Work Phone: [facility] 03-01-2025 09:34-0400 SaO2% (BldA) [Mass fraction] 96 % Smiley Suppan PEDIATRIC ASSOCIATE.[employer] OPERATOR Work Phone: [facility] 03-01-2025 09:34-0400 Systolic blood pressure 132 mm[Hg] Smiley Suppan PEDIATRIC ASSOCIATE.[employer] OPERATOR Work Phone: [facility] 07-26-2024 10:16-0500 Diastolic blood pressure 60 mm[Hg] Smiley Suppan PEDIATRIC ASSOCIATE.[employer] OPERATOR Work Phone: [facility] 07-26-2024 10:16-0500 Systolic blood pressure 128 mm[Hg] Smiley Suppan PEDIATRIC ASSOCIATE.[employer] OPERATOR Work Phone: [facility] 07-26-2024 09:45-0500 Body mass index (BMI) [Ratio] 35.56 kg/m2 Smiley Suppan PEDIATRIC ASSOCIATE.[employer] OPERATOR Work Phone: [facility] 07-26-2024 09:45-0500 Body temperature 98.8 [degF] Smiley Suppan PEDIATRIC ASSOCIATE.[employer] OPERATOR Work Phone: [facility] 07-26-2024 09:45-0500 Body weight 103 kg Smiley Suppan PEDIATRIC ASSOCIATE.[employer] OPERATOR Work Phone: [facility] 07-26-2024 09:45-0500 Heart rate 102 /min Smiley Suppan PEDIATRIC ASSOCIATE.[employer] OPERATOR Work Phone: [facility] 07-26-2024 09:45-0500 Respiratory rate 20 /min Smiley Suppan PEDIATRIC ASSOCIATE.[employer] OPERATOR Work Phone: [facility] 07-26-2024 09:45-0500 SaO2% (BldA) [Mass fraction] 97 % Smiley Suppan PEDIATRIC ASSOCIATE.[employer] OPERATOR Work Phone: [facility] 04-29-2024 14:40-0400 Diastolic blood pressure 50 mm[Hg] Smiley Suppan PEDIATRIC ASSOCIATE.[employer] OPERATOR Work Phone: [facility] 04-29-2024 14:40-0400 Systolic blood pressure 176 mm[Hg] Smiley Suppan PEDIATRIC ASSOCIATE.[employer] OPERATOR Work Phone: [facility] 04-29-2024 14:14-0400 Body mass index (BMI) [Ratio] 36.33 kg/m2 Smiley Suppan PEDIATRIC ASSOCIATE.[employer] OPERATOR Work Phone: [facility] 04-29-2024 14:14-0400 Body temperature 99.5 [degF] Smiley Suppan PEDIATRIC ASSOCIATE.[employer] OPERATOR Work Phone: [facility] 04-29-2024 14:14-0400 Body weight 105.23 kg Smiley Suppan PEDIATRIC ASSOCIATE.[employer] OPERATOR Work Phone: [facility] 04-29-2024 14:14-0400 Heart rate 110 /min Smiley Suppan PEDIATRIC ASSOCIATE.[employer] OPERATOR Work Phone: [facility] 04-29-2024 14:14-0400 SaO2% (BldA) [Mass fraction] 95 % Smiley Suppan PEDIATRIC ASSOCIATE.[employer] OPERATOR Work Phone: [facility] 03-23-2024 12:50-0400 Body mass index (BMI) [Ratio] 35.7 kg/m2 Smiley Suppan PEDIATRIC ASSOCIATE.[employer] OPERATOR Work Phone: [facility] 03-23-2024 12:50-0400 Body weight 103.42 kg Smiley Suppan PEDIATRIC ASSOCIATE.[employer] OPERATOR Work Phone: [facility] 03-23-2024 12:50-0400 Diastolic blood pressure 80 mm[Hg] Smiley Suppan PEDIATRIC ASSOCIATE.[employer] OPERATOR Work Phone: [facility] 03-23-2024 12:50-0400 Heart rate 115 /min Smiley Suppan PEDIATRIC ASSOCIATE.[employer] OPERATOR Work Phone: [facility] 03-23-2024 12:50-0400 Respiratory rate 20 /min Smiley Suppan PEDIATRIC ASSOCIATE.[employer] OPERATOR Work Phone: [facility] 03-23-2024 12:50-0400 SaO2% (BldA) [Mass fraction] 96 % Smiley Suppan PEDIATRIC ASSOCIATE.[employer] OPERATOR Work Phone: [facility] 03-23-2024 12:50-0400 Systolic blood pressure 144 mm[Hg] Smiley Suppan PEDIATRIC ASSOCIATE.[employer] OPERATOR Work Phone: [facility] 08-06-2023 13:18-0500 Heart rate 82 /min Dr. Ricci Cole Work Phone: [facility] 08-06-2023 13:18-0500 Respiratory rate 17 /min Dr. Ricci Cole Work Phone: [facility] 08-06-2023 09:51-0500 Body temperature 97.8 [degF] Dr. Ricci Cole Work Phone: [facility] 08-06-2023 09:51-0500 Diastolic blood pressure 77 mm[Hg] Dr. Ricci Cole Work Phone: [facility] 08-06-2023 09:51-0500 SaO2% (BldA) [Mass fraction] 96 % Dr. Ricci Cole Work Phone: [facility] 08-06-2023 09:51-0500 Systolic blood pressure 141 mm[Hg] Dr. Ricci Cole Work Phone: [facility] 08-05-2023 13:05-0500 Body height 170.[address] Ricci Cole Work Phone: [facility] 08-05-2023 13:05-0500 Body weight 104.[address] Ricci Cole Work Phone: [facility] 08-04-2023 21:49-0500 Body mass index (BMI) [Ratio] 36.1 kg/m2 Dr. Ricci Cole Work Phone: [facility] 08-04-2023 18:00-0500 Body temperature 98.1 [degF] [facility] 08-04-2023 18:00-0500 Diastolic blood pressure 70 mm[Hg] [facility] 08-04-2023 18:00-0500 Heart rate 84 /min [facility] 08-04-2023 18:00-0500 Respiratory rate 14 /min [facility] 08-04-2023 18:00-0500 SaO2% (BldA) [Mass fraction] 95 % [facility] 08-04-2023 18:00-0500 Systolic blood pressure 150 mm[Hg] [facility] 08-04-2023 12:53-0500 Body height 170.18 cm [facility] 08-04-2023 12:53-0500 Body mass index (BMI) [Ratio] 36.1 kg/m2 [facility] 08-04-2023 12:53-0500 Body weight 104.5 kg [facility] 07-09-2023 13:34-0500 Body temperature 98.49 [degF] Sophia Fan APRN.[employer]UM [employer] OPERATOR Work Phone: [facility] 07-09-2023 13:34-0500 Body weight 102.69 kg Sophia Fan APRN.[employer]UM [employer] OPERATOR Work Phone: [facility] 07-09-2023 13:34-0500 Diastolic blood pressure 66 mm[Hg] Sophia Fan APRN.[employer] OPERATOR Work Phone: [facility] 07-09-2023 13:34-0500 Heart rate 104 /min Sophia Fan APRN.[employer] OPERATOR Work Phone: [facility] 07-09-2023 13:34-0500 Respiratory rate 21 /min Sophia Fan PEDIATRIC ASSOCIATE.[employer]UM [employer] OPERATOR Work Phone: [facility] 07-09-2023 13:34-0500 SaO2% (BldA) [Mass fraction] 99 % Sophia Fan APRN.[employer] OPERATOR Work Phone: [facility] 07-09-2023 13:34-0500 Systolic blood pressure 132 mm[Hg] Sophia Fan PEDIATRIC ASSOCIATE.[employer]UM [employer] OPERATOR Work Phone: [facility] 04-15-2023 10:43-0400 Body weight 99.34 kg Nnaci Huber PEDIATRIC ASSOCIATE.[employer]UM [employer] OPERATOR Work Phone: [facility] 04-15-2023 10:43-0400 Diastolic blood pressure 78 mm[Hg] Nanci Haagen PEDIATRIC ASSOCIATE.[employer]UM [employer] OPERATOR Work Phone: [facility] 04-15-2023 10:43-0400 Heart rate 104 /min Nanci Haagen PEDIATRIC ASSOCIATE.[employer]UM [employer] OPERATOR Work Phone: [facility] 04-15-2023 10:43-0400 Respiratory rate 16 /min Nanci Haagen PEDIATRIC ASSOCIATE.[employer]UM [employer] OPERATOR Work Phone: [facility] 04-15-2023 10:43-0400 SaO2% (BldA) [Mass fraction] 94 % Nanci Haagen PEDIATRIC ASSOCIATE.[employer]UM [employer] OPERATOR Work Phone: [facility] 04-15-2023 10:43-0400 Systolic blood pressure 138 mm[Hg] Nanci Huber APRN.CNP Work Phone: [facility] 11-14-2022 13:05-0400 Respiratory rate 18 /min [facility] 11-14-2022 11:06-0400 Body height 170.18 cm [facility] 11-14-2022 11:06-0400 Body mass index (BMI) [Ratio] 36 kg/m2 [facility] 11-14-2022 11:06-0400 Body temperature 96.3 [degF] [facility] 11-14-2022 11:06-0400 Body weight 104.32 kg [facility] 11-14-2022 11:06-0400 Diastolic blood pressure 98 mm[Hg] [facility] 11-14-2022 11:06-0400 Heart rate 103 /min [facility] 11-14-2022 11:06-0400 SaO2% (BldA) [Mass fraction] 98 % [facility] 11-14-2022 11:06-0400 Systolic blood pressure 172 mm[Hg] [facility] 06-12-2022 10:41-0400 Body temperature 98.8 [degF] Dr. Ricci Cole Work Phone: [facility] Work Phone: 06-12-2022 10:41-0400 Diastolic blood pressure 86 mm[Hg] Dr. Ricci Cole Work Phone: [facility] Work Phone: 06-12-2022 10:41-0400 Heart rate 82 /min Dr. Ricci Cole Work Phone: [facility] Work Phone: 06-12-2022 10:41-0400 Respiratory rate 18 /min Dr. Ricci Cole Work Phone: [facility] Work Phone: 06-12-2022 10:41-0400 SaO2% (BldA) [Mass fraction] 97 % Dr. Ricci Cole Work Phone: [facility] Work Phone: 06-12-2022 10:41-0400 Systolic blood pressure 143 mm[Hg] Dr. Ricci Cole Work Phone: [facility] Work Phone: 06-12-2022 09:19-0400 Body height 170.[address] Ricci Cole Work Phone: [facility] Work Phone: 06-12-2022 09:19-0400 Body mass index (BMI) [Ratio] 36.9 kg/m2 Dr. Ricci Cole Work Phone: [facility] Work Phone: 06-12-2022 09:19-0400 Body weight [address] Ricci Cole Work Phone: [facility] Work Phone: 05-10-2022 12:10-0400 Diastolic blood pressure 80 mm[Hg] Dr. Ricci Cole Work Phone: [facility] Work Phone: 05-10-2022 12:10-0400 Heart rate 79 /min Dr. Ricci Cole Work Phone: [facility] Work Phone: 05-10-2022 12:10-0400 SaO2% (BldA) [Mass fraction] 95 % Dr. Ricci Cole Work Phone: [facility] Work Phone: 05-10-2022 12:10-0400 Systolic blood pressure 157 mm[Hg] Dr. Ricci Cole Work Phone: [facility] Work Phone: 05-10-2022 11:09-0400 Body height 170.[address] Ricci Cole Work Phone: [facility] Work Phone: 05-10-2022 11:09-0400 Body temperature 97.1 [degF] Dr. Ricci Cole Work Phone: [facility] Work Phone: 05-10-2022 11:09-0400 Respiratory rate 16 /min Dr. Ricci Cole Work Phone: [facility] Work Phone: 05-09-2022 11:49-0400 Diastolic blood pressure 80 mm[Hg] Dr. Ricci Cole Work Phone: [facility] Work Phone: 05-09-2022 11:49-0400 Heart rate 84 /min Dr. Ricci Cole Work Phone: [facility] Work Phone: 05-09-2022 11:49-0400 Systolic blood pressure 149 mm[Hg] Dr. Ricci Cole Work Phone: [facility] Work Phone: 05-09-2022 10:58-0400 Body height 170.[address] Ricci Cole Work Phone: [facility] Work Phone: 05-09-2022 10:58-0400 Body temperature 97.1 [degF] Dr. Ricci Cole Work Phone: [facility] Work Phone: 05-09-2022 10:58-0400 Respiratory rate 16 /min Dr. Ricci Cole Work Phone: [facility] Work Phone: 05-09-2022 10:58-0400 SaO2% (BldA) [Mass fraction] 96 % Dr. Ricci Cole Work Phone: [facility] Work Phone: 05-08-2022 14:07-0400 Body temperature 97.1 [degF] Dr. Ricci Cole Work Phone: [facility] Work Phone: 05-08-2022 14:07-0400 Diastolic blood pressure 72 mm[Hg] Dr. Ricci Cole Work Phone: [facility] Work Phone: 05-08-2022 14:07-0400 Heart rate 80 /min Dr. Ricci Cole Work Phone: [facility] Work Phone: 05-08-2022 14:07-0400 Respiratory rate 16 /min Dr. Ricci Cole Work Phone: [facility] Work Phone: 05-08-2022 14:07-0400 SaO2% (BldA) [Mass fraction] 95 % Dr. Ricci Cole Work Phone: [facility] Work Phone: 05-08-2022 14:07-0400 Systolic blood pressure 167 mm[Hg] Dr. Ricci Cole Work Phone: [facility] Work Phone: 05-08-2022 13:02-0400 Body mass index (BMI) [Ratio] 49.4 kg/m2 Dr. Ricci Cole Work Phone: [facility] Work Phone: 05-08-2022 13:02-0400 Body weight 145.[address] Ricci Cole Work Phone: [facility] Work Phone: 05-07-2022 12:02-0400 Diastolic blood pressure 75 mm[Hg] Dr. Ricci Cole Work Phone: [facility] Work Phone: 05-07-2022 12:02-0400 Heart rate 78 /min Dr. Ricci Cole Work Phone: [facility] Work Phone: 05-07-2022 12:02-0400 Systolic blood pressure 158 mm[Hg] Dr. Ricci Cole Work Phone: [facility] Work Phone: 05-07-2022 10:55-0400 Body mass index (BMI) [Ratio] 49.4 kg/m2 Dr. Ricci Cole Work Phone: [facility] Work Phone: 05-07-2022 10:55-0400 Body temperature 97.3 [degF] Dr. Ricci Cole Work Phone: [facility] Work Phone: 05-07-2022 10:55-0400 Body weight 145.[address] Ricci Cole Work Phone: [facility] Work Phone: 05-07-2022 10:55-0400 Respiratory rate 16 /min Dr. Ricci Cole Work Phone: [facility] Work Phone: 05-07-2022 10:55-0400 SaO2% (BldA) [Mass fraction] 96 % Dr. Ricci Cole Work Phone: [facility] Work Phone: 05-06-2022 12:36-0400 Body temperature 97.3 [degF] Dr. Ricci Coel Work Phone: [facility] Work Phone: 05-06-2022 12:36-0400 Diastolic blood pressure 85 mm[Hg] Dr. Ricci Cole Work Phone: [facility] Work Phone: 05-06-2022 12:36-0400 Heart rate 81 /min Dr. Ricci Cole Work Phone: [facility] Work Phone: 05-06-2022 12:36-0400 Respiratory rate 16 /min Dr. Ricci Cole Work Phone: [facility] Work Phone: 05-06-2022 12:36-0400 SaO2% (BldA) [Mass fraction] 95 % Dr. Ricci Cole Work Phone: [facility] Work Phone: 05-06-2022 12:36-0400 Systolic blood pressure 146 mm[Hg] Dr. Ricci Cole Work Phone: [facility] Work Phone: 05-06-2022 11:01-0400 Body mass index (BMI) [Ratio] 21.9 kg/m2 Dr. Ricci Cole Work Phone: [facility] Work Phone: 05-06-2022 11:01-0400 Body weight 63.[address] Ricci Cole Work Phone: [facility] Work Phone: 05-05-2022 10:58-0400 Body temperature 98.7 [degF] Dr. Ricci Cole Work Phone: [facility] Work Phone: 05-05-2022 10:58-0400 Diastolic blood pressure 70 mm[Hg] Dr. Ricci Cole Work Phone: [facility] Work Phone: 05-05-2022 10:58-0400 Heart rate 80 /min Dr. Ricci Cole Work Phone: [facility] Work Phone: 05-05-2022 10:58-0400 Respiratory rate 18 /min Dr. Ricci Cole Work Phone: [facility] Work Phone: 05-05-2022 10:58-0400 SaO2% (BldA) [Mass fraction] 98 % Dr. Ricci Cole Work Phone: [facility] Work Phone: 05-05-2022 10:58-0400 Systolic blood pressure 143 mm[Hg] Dr. Ricci Cole Work Phone: [facility] Work Phone: 05-04-2022 11:33-0400 Body temperature 99.3 [degF] Dr. Ricci Cole Work Phone: [facility] Work Phone: 05-04-2022 11:33-0400 Diastolic blood pressure 86 mm[Hg] Dr. Ricci Cole Work Phone: [facility] Work Phone: 05-04-2022 11:33-0400 Heart rate 71 /min Dr. Ricci Cole Work Phone: [facility] Work Phone: 05-04-2022 11:33-0400 Respiratory rate 18 /min Dr. Ricci Cole Work Phone: [facility] Work Phone: 05-04-2022 11:33-0400 SaO2% (BldA) [Mass fraction] 96 % Dr. Ricci Cole Work Phone: [facility] Work Phone: 05-04-2022 11:33-0400 Systolic blood pressure 132 mm[Hg] Dr. Ricci Cole Work Phone: [facility] Work Phone: 05-03-2022 14:30-0400 Body temperature 98 [degF] Dr. Ricci Cole Work Phone: [facility] Work Phone: 05-03-2022 14:30-0400 Diastolic blood pressure 87 mm[Hg] Dr. Ricci Cole Work Phone: [facility] Work Phone: 05-03-2022 14:30-0400 Heart rate 82 /min Dr. Ricci Cole Work Phone: [facility] Work Phone: 05-03-2022 14:30-0400 Respiratory rate 18 /min Dr. Ricci Cole Work Phone: [facility] Work Phone: 05-03-2022 14:30-0400 SaO2% (BldA) [Mass fraction] 95 % Dr. Ricci Cole Work Phone: [facility] Work Phone: 05-03-2022 14:30-0400 Systolic blood pressure 159 mm[Hg] Dr. Ricci Cole Work Phone: [facility] Work Phone: 05-03-2022 10:26-0400 Body height [address] Ricci Cole Work Phone: [facility] Work Phone: 05-03-2022 10:26-0400 Body weight 108.[address] Ricci Cole Work Phone: [facility] Work Phone: 05-01-2022 01:25-0400 Body mass index (BMI) [Ratio] 37.4 kg/m2 Dr. Ricci Cole Work Phone: [facility] Work Phone: 05-01-2022 00:17-0400 Body temperature 98.4 [degF] Dr. Ricci Cole Work Phone: [facility] Work Phone: 05-01-2022 00:17-0400 Diastolic blood pressure 73 mm[Hg] Dr. Ricci Cole Work Phone: [facility] Work Phone: 05-01-2022 00:17-0400 Heart rate 94 /min Dr. Ricci Cole Work Phone: [facility] Work Phone: 05-01-2022 00:17-0400 Respiratory rate 20 /min Dr. Ricci Cole Work Phone: [facility] Work Phone: 05-01-2022 00:17-0400 SaO2% (BldA) [Mass fraction] 94 % Dr. Ricci Cole Work Phone: [facility] Work Phone: 05-01-2022 00:17-0400 Systolic blood pressure 143 mm[Hg] Dr. Ricci Cole Work Phone: [facility] Work Phone: 04-30-2022 21:54-0400 Body height 170.[address] Ricci Cole Work Phone: [facility] Work Phone: 04-30-2022 21:54-0400 Body mass index (BMI) [Ratio] 38.2 kg/m2 Dr. Ricci Cole Work Phone: [facility] Work Phone: 04-30-2022 21:54-0400 Body weight 110.[address] Ricci Cole Work Phone: [facility] Work Phone: 01-29-2022 11:15-0400 Body weight 108.41 kg NA Holland PA-C Work Phone: [facility] 01-29-2022 11:15-0400 Diastolic blood pressure 82 mm[Hg] NA Holland PA-C Work Phone: [facility] 01-29-2022 11:15-0400 Heart rate 90 /min NA Holland PA-C Work Phone: [facility] 01-29-2022 11:15-0400 Respiratory rate 20 /min NA Holland PA-C Work Phone: [facility] 01-29-2022 11:15-0400 SaO2% (BldA) [Mass fraction] 98 % NA Holland PA-C Work Phone: [facility] 01-29-2022 11:15-0400 Systolic blood pressure 128 mm[Hg] NA Holland PA-C Work Phone: [facility] 01-22-2022 16:24-0400 Body temperature 97.8 [degF] Dr. Ricci Cole Work Phone: [facility] Work Phone: 01-22-2022 16:24-0400 Diastolic blood pressure 57 mm[Hg] Dr. Ricci Cole Work Phone: [facility] Work Phone: 01-22-2022 16:24-0400 Heart rate 62 /min Dr. Ricci Cole Work Phone: [facility] Work Phone: 01-22-2022 16:24-0400 Inhaled oxygen flow rate 2 L/min Dr. Ricci Cole Work Phone: [facility] Work Phone: 01-22-2022 16:24-0400 Respiratory rate 16 /min Dr. Ricci Cole Work Phone: [facility] Work Phone: 01-22-2022 16:24-0400 SaO2% (BldA) [Mass fraction] 97 % Dr. Ricci Cole Work Phone: [facility] Work Phone: 01-22-2022 16:24-0400 Systolic blood pressure 140 mm[Hg] Dr. Ricci Cole Work Phone: [facility] Work Phone: 01-22-2022 16:04-0400 Body temperature 98.2 [degF] Dr. Ricci Cole Work Phone: [facility] Work Phone: 01-22-2022 16:04-0400 Diastolic blood pressure 72 mm[Hg] Dr. Ricci Cole Work Phone: [facility] Work Phone: 01-22-2022 16:04-0400 Heart rate 79 /min Dr. Ricci Cole Work Phone: [facility] Work Phone: 01-22-2022 16:04-0400 Respiratory rate 17 /min Dr. Ricci Cole Work Phone: [facility] Work Phone: 01-22-2022 16:04-0400 SaO2% (BldA) [Mass fraction] 92 % Dr. Ricci Cole Work Phone: [facility] Work Phone: 01-22-2022 16:04-0400 Systolic blood pressure 156 mm[Hg] Dr. Ricci Cole Work Phone: [facility] Work Phone: 01-17-2022 18:38-0400 Body height 170.[address] Ricci Cole Work Phone: [facility] Work Phone: 01-17-2022 18:38-0400 Body mass index (BMI) [Ratio] 38.9 kg/m2 Dr. Ricci Cole Work Phone: [facility] Work Phone: 01-17-2022 18:38-0400 Body weight 112.[address] Ricci Cole Work Phone: [facility] Work Phone: 01-17-2022 16:43-0400 Diastolic blood pressure 70 mm[Hg] Dr. Ricci Cole Work Phone: [facility] Work Phone: 01-17-2022 16:43-0400 Systolic blood pressure 146 mm[Hg] Dr. Ricci Cole Work Phone: [facility] Work Phone: 01-17-2022 15:00-0400 Body mass index (BMI) [Ratio] 38 kg/m2 Dr. Ricci Cole Work Phone: [facility] Work Phone: 01-17-2022 15:00-0400 Body temperature 98.2 [degF] Dr. Ricci Cole Work Phone: [facility] Work Phone: 01-17-2022 15:00-0400 Body weight 109.[address] Ricci Cole Work Phone: [facility] Work Phone: 01-17-2022 15:00-0400 Heart rate 112 /min Dr. Ricci Cole Work Phone: [facility] Work Phone: 01-17-2022 15:00-0400 Respiratory rate 18 /min Dr. Ricci Cole Work Phone: [facility] Work Phone: 01-17-2022 15:00-0400 SaO2% (BldA) [Mass fraction] 95 % Dr. Ricci Cole Work Phone: [facility] Work Phone: 01-05-2022 10:50-0400 Diastolic blood pressure 80 mm[Hg] Ricci Cole MD Work Phone: [facility] 01-05-2022 10:50-0400 Systolic blood pressure 150 mm[Hg] Ricci Cole MD Work Phone: [facility] 01-05-2022 10:11-0400 Body temperature 98.1 [degF] Ricci Cole MD Work Phone: [facility] 01-05-2022 10:11-0400 Body weight 107.96 kg Ricci Cole MD Work Phone: [facility] 01-05-2022 10:11-0400 Heart rate 96 /min Ricci Cole MD Work Phone: [facility] 01-02-2022 11:41-0400 Body temperature 98.4 [degF] [facility] Work Phone: 01-02-2022 11:41-0400 Diastolic blood pressure 92 mm[Hg] [facility] Work Phone: 01-02-2022 11:41-0400 Heart rate 99 /min [facility] Work Phone: 01-02-2022 11:41-0400 Respiratory rate 22 /min [facility] Work Phone: 01-02-2022 11:41-0400 SaO2% (BldA) [Mass fraction] 96 % [facility] Work Phone: 01-02-2022 11:41-0400 Systolic blood pressure 142 mm[Hg] [facility] Work Phone: 01-02-2022 11:16-0400 Body height 167.64 cm [facility] Work Phone: 01-02-2022 11:16-0400 Body mass index (BMI) [Ratio] 37.9 kg/m2 [facility] Work Phone: 01-02-2022 11:16-0400 Body weight 106.59 kg [facility] Work Phone: 12-18-2021 10:15-0400 Body temperature 98.49 [degF] NA Holland PA-C Work Phone: [facility] 12-18-2021 10:15-0400 Body weight 107.96 kg NA Holland PA-C Work Phone: [facility] 12-18-2021 10:15-0400 Diastolic blood pressure 78 mm[Hg] NA Holland PA-C Work Phone: [facility] 12-18-2021 10:15-0400 Heart rate 103 /min NA Holland PA-C Work Phone: [facility] 12-18-2021 10:15-0400 Respiratory rate 24 /min NA Holland PA-C Work Phone: [facility] 12-18-2021 10:15-0400 SaO2% (BldA) [Mass fraction] 97 % NA Holland PA-C Work Phone: [facility] 12-18-2021 10:15-0400 Systolic blood pressure 160 mm[Hg] NA Holland PA-C Work Phone: [facility] 11-22-2021 13:54-0400 Diastolic blood pressure 98 mm[Hg] Joyce Perry PA-C Work Phone: [facility] 11-22-2021 13:54-0400 Systolic blood pressure 168 mm[Hg] Joyce Perry PA-C Work Phone: [facility] 11-22-2021 13:36-0400 Body weight 108.41 kg Joyce Perry PA-C Work Phone: [facility] 11-22-2021 13:36-0400 Heart rate 101 /min Joyce Perry PA-C Work Phone: [facility] 11-22-2021 13:36-0400 SaO2% (BldA) [Mass fraction] 95 % Joyce Perry PA-C Work Phone: [facility] Encounters Encounter Date Encounter Type Care Provider Facility Start: 05-15-2025 End: 05-15-2025 Emergency department patient visit Bhavinkamran Quinn DO -Emergency Department Work Phone: Start: 05-10-2025 End: 05-10-2025 Refill Smiley A Suppan PEDIATRIC ASSOCIATE.ALUM PLANT OPERATOR Work Phone: [facility] Comment on above: Refill Request Insurance PA Start: 05-06-2025 End: 05-06-2025 Office outpatient visit 25 minutes Smiley A Suppan PEDIATRIC ASSOCIATE.ALUM PL[employer] OPERATOR Work Phone: [facility] Comment on above: Gastroenteritis (Josiane aurelia Dx); Primary hypertension; Tobacco use disorder; Uncontrolled type 2 diabetes mellitus with hyperglycemia (HCC); Vitamin B12 deficiency; Vitamin D deficiency Start: 05-06-2025 End: 05-06-2025 ambulatory SMILEY A SUPPAN Facility:[facility] Start: 2025 End: 2025 Telephone encounter Smiley A Suppan PEDIATRIC ASSOCIATE.ALUM PLANT OPERATOR Work Phone: [facility] Comment on above: Patient Question Start: 04-04-2025 End: 04-04-2025 Refill Ricci Cole MD Work Phone: [facility] Comment on above: Refill Request Start: 03-29-2025 End: 03-29-2025 ambulatory RICCI COLE Facility:[facility] Start: 03-24-2025 End: 03-24-2025 Telephone encounter Ricci Cole MD Work Phone: [facility] Comment on above: Incontinent supplies denied request Start: 03-10-2025 End: 03-10-2025 Office outpatient visit 15 minutes Smiley A Suppan PEDIATRIC ASSOCIATE.ALUM [employer] OPERATOR Work Phone: [facility] Comment on above: Acute bronchitis, un specified organism (Primary Dx); Recurrent UTI (urinary tract infection) Start: 03-10-2025 End: 03-10-2025 ambulatory SMILEY A SUPPAN Facility:[facility] Start: 03-09-2025 End: 03-09-2025 Telephone encounter Ricci Cole MD Work Phone: [facility] Comment on above: Medication Request; Patient Update Start: 03-08-2025 End: 03-08-2025 Refill Ricci Cole MD Work Phone: [facility] Comment on above: Refill Request Start: 03-03-2025 End: 03-04-2025 Refill Smiley A Suppan PEDIATRIC ASSOCIATE.ALUM PLANT OPERATOR Work Phone: [facility] Comment on above: Refill Request Results Start: 03-01-2025 End: 03-01-2025 Transitional care manage srvc 14 day discharge Smiley A Suppan PEDIATRIC ASSOCIATE.ALUM PLANT OPERATOR Work Phone: [facility] Comment on above: Dysuria (Primary Dx) ; [...] 03-01-2025 End: 03-01-2025 ambulatory SMILEY A SUPPAN Facility:[facility] Start: 02-22-2025 Non-patient / Non-visit Dr. Edgar Oropeza MD -[facility] Work Phone: Start: 02-15-2025 End: 03-18-2025 ambulatory Ricci Cole MD Work Phone: [facility] Start: 01-25-2025 End: 01-25-2025 Telephone encounter Ricci Cole MD Work Phone: [facility] [place] Comment on above: requesting medicatio n that is Start: 01-03-2025 End: 01-03-2025 ambulatory Lou Osman MA [facility] [place] Start: 01-03-2025 End: 01-03-2025 Patient encounter procedure Lou Osman MA [facility] [place] Comment on above: Population Health Na vigation Outreach ( [facility] Start: 12-24-2024 End: 12-24-2024 Refill Ricci Cole MD Work Phone: [facility] [place] Comment on above: Refill Request Start: 12-23-2024 End: 12-28-2024 Telephone encounter Ricci Cole MD Work Phone: [facility] Comment on above: Orders (Incontinence supplies) Start: 11-10-2024 End: 11-10-2024 ambulatory Ricci Cole MD Work Phone: [facility] [place] Comment on above: UTI; URI Start: 10-19-2024 End: 10-19-2024 Refill Ricci Cole MD Work Phone: [facility] Comment on above: Refill Request Start: 10-05-2024 End: 10-05-2024 Refill Ricci Cole MD Work Phone: [facility] Comment on above: Refill Request Start: 09-22-2024 End: 09-22-2024 Refill Ricci Cole MD Work Phone: [facility] [place] Comment on above: Refill Request Start: 07-29-2024 [...] 07-26-2024 Refill Ricci Cole MD Work Phone: [facility] [place] Comment on above: Refill Request Start: 07-19-2024 End: 07-19-2024 ambulatory Herson Ashford RN Work Phone: [employer] Comment on above: community monitoring outreach (CDM-Telephonic outreach) Start: 07-16-2024 End: 07-16-2024 ambulatory Herson Ashford RN Work Phone: [employer] Comment on above: community monitoring outreach (CDM-Telephonic outreach) Start: 07-14-2024 End: 07-14-2024 ambulatory Herson Ashford RN Work Phone: [employer] Comment on above: community monitoring outreach (CDM-Telephonic outreach) Start: 06-16-2024 End: 06-16-2024 ambulatory Herson Ashford RN Work Phone: [employer] Comment on above: community monitoring outreach (CDM-Telephonic outreach) Start: 06-10-2024 End: 06-10-2024 ambulatory Herson Ashford RN Work Phone: [employer] Comment on above: community monitoring outreach (CDM-Telephonic outreach) Start: 06-09-2024 End: 06-09-2024 Refill Ricci Cole MD Work Phone: [facility] [place] Comment on above: Refill Request Start: 06-08-2024 End: 06-08-2024 ambulatory Herson Ashford RN Work Phone: [employer] Comment on above: community monitoring outreach (CDM-Telephonic outreach) Start: 06-07-2024 End: 06-07-2024 ambulatory Herson Ashford RN Work Phone: [employer] Comment on above: community monitoring outreach (CDM-Telephonic outreach) Start: 05-13-2024 End: 05-13-2024 Telephone encounter Smiley Melo APRN.[employer]UM [employer] OPERATOR Work Phone: [facility] [place] Start: 05-11-2024 End: 05-12-2024 Telephone encounter Smiley Melo APRN.[employer]UM PL[employer] OPERATOR Work Phone: [facility] [place] Comment on above: Results; Orders Start: 05-10-2024 End: 05-10-2024 Refill Ricci Cole MD Work Phone: [facility] [place] Comment on above: Refill Request Start: 05-05-2024 End: 05-05-2024 ambulatory Herson Ashford RN Work Phone: [employer] Comment on above: community monitoring outreach (CDM-Telephonic outreach) Start: 05-04-2024 End: 05-04-2024 ambulatory Herson Ashford RN Work Phone: [employer] Comment on above: community monitoring outreach (CDM-Telephonic outreach) Start: 05-03-2024 End: 05-03-2024 Telephone encounter Smiley Melo APRN.[employer] OPERATOR Work Phone: [facility] Start: 04-29-2024 End: 04-29-2024 Office outpatient visit 25 minutes Smiley Melo APRN.[employer]UM [employer] OPERATOR Work Phone: [facility] [place] Comment on above: Recurrent UTI (urina ry tract infection) (Primary Dx); Chronic nausea; Fibromyalgia; Primary hypertension; Migraine with aura and without status migrainosus, not intractable; Stress incontinence; 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 Start: 04-23-2024 End: 04-23-2024 Refill Ricci Cole MD Work Phone: [facility] [place] Comment on above: Refill Request Start: 04-22-2024 End: 04-29-2024 Telephone encounter Ricci Cole MD Work Phone: [facility] [place] Comment on above: Incontinence Supplie s Start: 04-20-2024 End: 04-20-2024 Refill Ricci Cole MD Work Phone: [facility] [place] Comment on above: Refill Request Start: 04-12-2024 End: 04-12-2024 Refill Ricci Cole MD Work Phone: [facility] [place] Comment on above: Refill Request Start: 04-06-2024 ambulatory Herson Ashford RN Work Phone: [employer] Comment on above: community monitoring outreach (CDM-Telephonic outreach) Start: 04-02-2024 Refill Ricci Cole MD Work Phone: [facility] [place] Comment on above: Refill Request community monitoring outreach (CDM-Telephonic outreach) Start: 03-25-2024 Telephone encounter Smiley Melo PEDIATRIC ASSOCIATE.ALUM PL[employer] OPERATOR Work Phone: [facility] [place] Comment on above: Results Start: 03-24-2024 Refill Ricci Cole MD Work Phone: [facility] [place] Comment on above: Refill Request Start: 03-23-2024 End: 03-23-2024 Office outpatient visit 15 minutes Smiley Melo PEDIATRIC ASSOCIATE.ALUM [employer] OPERATOR Work Phone: [facility] [place] Comment on above: Dysuria (Primary Dx) ; Cutaneous candidiasis; Tinea corporis Start: 03-22-2024 End: 03-22-2024 ambulatory Nurse Intm/Famp Triage [facility] Work Phone: Nurse Phone Triage Comment on above: urinary symptoms Start: 03-17-2024 ambulatory Ricci Cole MD Work Phone: Internal [facility] Start: 03-16-2024 Refill Ricci Cole MD Work Phone: [facility] Comment on above: Refill Request Start: 03-08-2024 Refill Ricci Cole MD Work Phone: [facility] [place] Comment on above: Refill Request Start: 03-05-2024 ambulatory Herson Ashford RN Work Phone: [employer] Comment on above: community monitoring outreach (CDM-Telephonic outreach) Start: 02-20-2024 Refill Ricci Cole MD Work Phone: [facility] Comment on above: Refill Request Start: 02-05-2024 ambulatory Herson Ashford RN Work Phone: [employer] Comment on above: community monitoring outreach (CDM-Telephonic outreach) Start: 02-04-2024 Refill Ricci Cole MD Work Phone: [facility] Comment on above: Refill Request community monitoring outreach (CDM-Telephonic outreach) Start: 01-30-2024 ambulatory Herson Ashford RN Work Phone: [employer] Comment on above: community monitoring outreach (CDM-Telephonic outreach) Start: 01-05-2024 Refill Ricci Cole MD Work Phone: [facility] [place] Comment on above: Refill Request Start: 12-31-2023 ambulatory Herson Ashford RN Work Phone: [employer] Comment on above: community monitoring outreach (CDM-Telephonic outreach) Start: 12-29-2023 ambulatory Marguerite Ortiz RN [facility] Comment on above: UTI Start: 12-11-2023 Refill Ricci Cole MD Work Phone: [facility] [place] Comment on above: Refill Request Start: 12-02-2023 ambulatory Herson Ashford RN Work Phone: [employer] Comment on above: community monitoring outreach (CDM-Telephonic outreach) Start: 11-25-2023 Refill Ricci Cole MD Work Phone: [facility] Comment on above: Refill Request Start: 10-29-2023 ambulatory Herson Ashford RN Work Phone: [employer] Comment on above: community monitoring outreach (CDM-Telephonic outreach) Start: 10-10-2023 Refill Ricci Cole MD Work Phone: [facility] Comment on above: Refill Request Start: 09-29-2023 ambulatory Herson Ashford RN Work Phone: [employer] Comment on above: community monitoring outreach (CDM-Telephonic outreach) Start: 09-26-2023 Refill Ricci Cole MD Work Phone: [facility] Comment on above: Refill Request Start: 09-04-2023 End: 09-04-2023 Subsequent hospital visit by physician Xr [facility] Work Phone: Radiology Comment on above: Subacute cough [R05. 2] Start: 08-08-2023 Refill Ricci Cole MD Work Phone: [facility] Comment on above: Refill Request Transition Of Care Start: 08-06-2023 Non-patient / Non-visit Dr. Sari Cole Work Phone: [facility] Work Phone: Start: 08-05-2023 Non-patient / Non-visit Dr. Sari Cole Work Phone: [facility] Work Phone: Start: 08-04-2023 End: 08-06-2023 Evaluation and management of inpatient [facility] Work Phone: Start: 07-28-2023 ambulatory Herson Ashford RN Work Phone: Engineering Inspector Management Comment on above: community monitoring outreach (CDM-Telephonic outreach) Start: 07-23-2023 ambulatory Herson Ashford RN Work Phone: Engineering Inspector Management Comment on above: community monitoring outreach (CDM-Telephonic outreach) Start: 07-21-2023 Refill Ricci Cole MD Work Phone: [facility] [place] Comment on above: Refill Request Start: 07-14-2023 Refill Ricci Cole MD Work Phone: Family [facility] [place] Comment on above: Refill Request Start: 07-09-2023 End: 07-09-2023 Patient encounter procedure Sophia Fan APRN.ALUM PLANT OPERATOR Work Phone: [facility] Comment on above: Urinary frequency (P rimary Dx) Start: 07-01-2023 Telephone encounter Ricci Cole MD Work Phone: [facility] [place] Comment on above: Refill Request Start: 06-13-2023 ambulatory Herson Ashford RN Work Phone: Engineering Inspector Management Comment on above: community monitoring outreach (CDM-Telephonic outreach) Start: 06-11-2023 Refill Ricci Cole MD Work Phone: [facility] [place] Comment on above: Refill Request Start: 06-02-[address] [facility] [place] Comment on above: Population Health Na vigation Outreach (ACO BP AND DM) Start: 05-13-2023 ambulatory Herson Ashford RN Work Phone: Engineering Inspector Management Comment on above: community monitoring outreach (CDM-Telephonic outreach) Start: 05-07-2023 Refill Ricci Cole MD Work Phone: [facility] [place] Comment on above: Refill Request Start: 05-06-2023 Telephone encounter Ricci Cole MD Work Phone: [facility] [place] Comment on above: Forms Start: 04-23-2023 Telephone encounter Ricci Cole MD Work Phone: [facility] [place] Comment on above: Forms Start: 04-18-2023 Telephone encounter Nanci miller APRN.ALUM PLANT OPERATOR Work Phone: [facility] [place] Comment on [...] 04-10-2023 ambulatory Herson Ashford RN Work Phone: Engineering Inspector Management Comment on above: community monitoring outreach (CDM-Telephonic outreach) Start: 04-09-2023 Telephone encounter Ricci Cole MD Work Phone: [facility] [place] Comment on above: Appointment Start: 2023 Refill Ricci Cole MD Work Phone: [facility] [place] Comment on above: Refill Request Start: 04-02-2023 Telephone encounter Ricci Cole MD Work Phone: [facility] [place] Comment on above: Forms Start: 03-27-2023 Telephone encounter Ricci Cole MD Work Phone: [facility] [place] Comment on above: Patient Question Start: 03-24-2023 Refill Ricci Cole MD Work Phone: [facility] [place] Comment on above: Refill Request Start: 03-13-2023 Social Work Lynn VALD[facility]IN[facility] Comment on above: Needs assistance wit h community resources (Primary Dx); Assistance needed with transportation Start: 03-11-2023 ambulatory Herson Ashford RN Work Phone: Engineering Inspector Management Comment on above: community monitoring outreach (CDM-Telephonic outreach) Start: 02-24-2023 Telephone encounter Ricci Cole MD Work Phone: [facility] Comment on above: Medication Request Start: 02-17-2023 Refill Ricci Cole MD Work Phone: [facility] [place] Comment on above: Refill Request Start: 02-03-2023 Refill Ricci Cole MD Work Phone: [facility] [place] Comment on above: Refill Request Start: 01-22-2023 Refill Ricci Cole MD Work Phone: [facility] [place] Comment on above: Refill Request; Refi ll Request Start: 01-14-2023 ambulatory [facility] Comment on above: Population Health Na vigation Outreach (LARY JOHNSON PCSA/) Start: 01-01-2023 Refill Ricci Cole MD Work Phone: [facility] [place] Comment on above: Refill Request Start: 12-11-2022 ambulatory Ricci Cole MD Work Phone: [facility] [place] Start: 12-06-2022 ambulatory Herson Ashford RN Work Phone: Engineering Inspector Management Comment on above: community monitoring outreach (CDM-Telephonic outreach) Start: 11-25-2022 Refill Ricci Cole MD Work Phone: [facility] Comment on above: Refill Request Start: 11-14-2022 End: 11-14-2022 Emergency department patient visit [facility] Start: 11-11-2022 ambulatory Herson Ashford RN Work Phone: Engineering Inspector Management Comment on above: community monitoring outreach (CDM-Telephonic outreach) Start: 11-05-2022 Refill Ricci Cole MD Work Phone: [facility] [place] Comment on above: Refill Request Start: 10-07-2022 ambulatory Herson Ashford RN Work Phone: Engineering Inspector Management Comment on above: community monitoring outreach (CDM-telephonic outreach) Start: 09-05-2022 ambulatory Herson Ashford RN Work Phone: [facility] Start: 09-05-2022 Follow-up encounter Herson beltran RN Work Phone: Engineering Inspector Management Comment on above: community monitoring outreach (CDM-Insight escalation follow up call) Start: 09-04-2022 ambulatory Brittany sargent MD Work Phone: [facility] Comment on above: Nausea Start: 09-04-2022 Telemedicine consultation with patient Brittany Sam MD Work Phone: MAIN VIRTUAL VISIT Start: 09-03-2022 ambulatory Herson Ashford RN Work Phone: Engineering Inspector Management Comment on above: community monitoring outreach (CDM-Telephonic outreach/) Start: 08-12-2022 Refill Ricci Cole MD Work Phone: [facility] [place] Comment on above: Refill Request Start: 07-31-2022 Refill Ricci Cole MD Work Phone: [facility] [place] Comment on above: Refill Request Start: 07-30-2022 ambulatory Herson Ashford RN Work Phone: Engineering Inspector Management Comment on above: community monitoring outreach (CDM telephonic outreach) Start: 07-24-2022 Refill Ricci Cole MD Work Phone: [facility] [place] Comment on above: Refill Request Start: 07-11-2022 Refill Ricci Cole MD Work Phone: [address] [place] [address] Comment on above: Refill Request Start: 06-27-2022 Refill Ricci Cole MD Work Phone: [facility] [place] Comment on above: Refill Request Start: 06-25-2022 Refill Ricci Cole MD Work Phone: [facility] Comment on above: Refill Request Patient Update Start: 06-24-2022 Refill Ricci Cole MD Work Phone: [facility] [place] Comment on above: Refill Request Start: 06-19-2022 ambulatory Sho Hebert RN Work Phone: Engineering Inspector Management Comment on above: Community Monitoring Outreach (CDM Telephonic) Start: 06-12-2022 Non-patient / Non-visit Dr. Sari Cole Work Phone: [facility] Start: 06-12-2022 End: 06-12-2022 Admission to same day surgery center Dr. Ricci Cole Work Phone: [facility] Start: 06-12-2022 End: 06-12-[address] Ricci Cole Work Phone: [facility] Work Phone: Start: 06-05-2022 ambulatory Sho Hebert RN Work Phone: Engineering Inspector Management Comment on above: Community Monitoring Outreach (CDM Telephonic) Start: 05-28-2022 Refill Ricci Cole MD Work Phone: [facility] Comment on above: Refill Request Start: 05-11-2022 End: 05-11-[address] Ricci Cole Work Phone: [facility] Start: 05-10-2022 End: 05-10-[address] Ricci Cole Work Phone: [facility] Work Phone: Start: 05-10-2022 End: 05-10-[address] Ricci Cole Work Phone: [facility] Start: 05-09-2022 End: 05-09-[address] Ricci Cole Work Phone: [facility] Work Phone: Start: 05-09-2022 End: 05-09-[address] Ricci Cole Work Phone: [facility] Start: 05-08-2022 End: 05-08-[address] Ricci Cole Work Phone: [facility] Work Phone: Start: 05-08-2022 End: 05-08-[address] Ricci Cole Work Phone: [facility] Start: 05-07-2022 End: 05-07-[address] Ricci Cole Work Phone: [facility] Work Phone: Start: 05-07-2022 End: 05-07-[address] Ricci Cole Work Phone: [facility] Start: 05-06-2022 End: 05-06-2022 Patient Outreach Ricci Cole MD Work Phone: [facility] Comment on above: Transition Of Care Start: 05-06-2022 End: 05-06-[address] Ricci Cole Work Phone: [facility] Start: 05-05-2022 End: 05-05-[address] Ricci Cole Work Phone: [facility] Work Phone: Start: 05-05-2022 End: 05-05-[address] Ricci Cole Work Phone: [facility] Start: 05-04-2022 End: 05-04-[address] Ricci Cole Work Phone: [facility] Start: 05-03-2022 Telephone encounter Ricci Cole MD Work Phone: [facility] Comment on above: Orders; Follow HH Or ders Start: 05-03-2022 Non-patient / Non-visit Dr. Sari Cole Work Phone: [facility] Start: 05-02-2022 Non-patient / Non-visit Dr. Sari Cole Work Phone: [facility] Start: 05-01-2022 ambulatory Sho Hebert RN Work Phone: Engineering Inspector Management Comment on above: Community Monitoring Outreach (CDM Telephonic) Start: 05-01-2022 Non-patient / Non-visit Dr. Sari Cole Work Phone: [facility] Start: 05-01-2022 End: 05-03-2022 Evaluation and management of inpatient Dr. Ricci [facility] Start: 04-30-2022 ambulatory Sho Hebert RN Work Phone: [facility] Start: 04-30-2022 Follow-up encounter Sho Hebert RN Work Phone: Engineering Inspector Management Comment on above: Community Monitoring Outreach (CDM Follow Up) Start: 04-26-2022 End: 04-26-[address] Ricci Cole Work Phone: [facility] Start: 04-22-2022 Refill Ricci Cole MD Work Phone: [facility] Comment on above: Refill Request Start: 04-16-2022 ambulatory Sho Hebert RN Work Phone: [facility] Start: 04-16-2022 Follow-up encounter Sho Hebert RN Work Phone: Engineering Inspector Management Comment on above: Community Monitoring Outreach (CDM Telephonic Follow Up) Start: 04-15-2022 ambulatory Sho Hebert RN Work Phone: [facility] Start: 04-15-2022 Follow-up encounter Sho Hebert RN Work Phone: Engineering Inspector Management Comment on above: Community Monitoring Outreach (CDM Telephonic Follow Up) Start: 03-27-2022 Refill Ricci Cole MD Work Phone: [facility] Comment on above: Refill Request Start: 03-26-2022 Refill Ricci Cole MD Work Phone: [facility] [place] Comment on above: Prescription Refills Start: 03-18-2022 ambulatory Sho Hebert RN Work Phone: [facility] Start: 03-18-2022 Follow-up encounter Sho Hebert RN Work Phone: Engineering Inspector Management Comment on above: Community Monitoring Outreach (Telephonic Follow Up) Start: 02-18-2022 ambulatory Sho Hebert RN Work Phone: [facility] Start: 02-18-2022 Follow-up encounter Sho Hebert RN Work Phone: Engineering Inspector Management Comment on above: Community Monitoring Outreach (Telephonic Follow Up) Start: 02-15-2022 ambulatory Sho Hebert RN Work Phone: [facility] Start: 02-15-2022 Follow-up encounter Sho Hebert RN Work Phone: Engineering Inspector Management Comment on above: Community Monitoring Outreach (Telephonic Follow Up) Start: 02-11-2022 Refill Ricci Cole MD Work Phone: [facility] Comment on above: Refill Request Start: 02-01-2022 Refill Ricci Cole MD Work Phone: [facility] [place] Comment on above: Refill Request Start: 01-31-2022 ambulatory Sho Hebert RN Work Phone: Engineering Inspector Management Start: 01-29-2022 End: 01-29-2022 Patient encounter tequila Holland PA-C Work Phone: [facility] [place] Comment on above: Fibromyalgia (Primar y Dx); Type 2 diabetes mellitus without complication, without long-term current use of insulin (HCC); Screening for colon cancer; Primary hypertension; Depression, major, recurrent, in complete remission (HCC); Hospital discharge follow-up Start: 01-23-2022 Patient Outreach Ricci velazquez MD Work Phone: [facility] Comment on above: Transition Of Care Start: 01-22-2022 ambulatory Sho Hebert RN Work Phone: [facility] Start: 01-22-2022 Follow-up encounter Sho Hebert RN Work Phone: Engineering Inspector Management Comment on above: Community Monitoring Outreach (Telephonic Follow Up) Refill Request Start: 01-22-2022 Non-patient / Non-visit Dr. Sari Cole Work Phone: [facility] Start: 01-21-2022 Non-patient / Non-visit Dr. Sari Cole Work Phone: [facility] Start: 01-20-2022 Non-patient / Non-visit Dr. Sari Cole Work Phone: [facility] Start: 01-19-2022 Non-patient / Non-visit Dr. Sari Cole Work Phone: [facility] Start: 01-18-2022 Non-patient / Non-visit Dr. Sari Cole Work Phone: [facility] Start: 01-17-2022 Non-patient / Non-visit Dr. Sari Cole Work Phone: [facility] Start: 01-17-2022 End: 01-22-2022 Evaluation and management of inpatient Dr. Ricci Cole [facility] Start: 01-07-2022 ambulatory Sho Hebert RN Work Phone: Engineering Inspector Management Comment on above: Community Monitoring Outreach (Telephonic Foillow Up) Start: 01-07-2022 Telephone encounter Ricci Cole MD Work Phone: [facility] Comment on above: Results Start: 01-05-2022 End: 01-05-2022 Patient encounter procedure Ricci Cole MD Work Phone: [facility] [place] Comment on above: Nausea (Primary Dx); Other chronic gastritis without hemorrhage; Urinary incontinence, unspecified type; History of recurrent UTIs; Migraine with aura and without status migrainosus, not intractable; Leukocytosis, unspecified type; Secondary polycythemia; Tobacco use; Primary hypertension; Hyperlipidemia, mixed; Depression, major, recurrent, in complete remission (HCC); Uncontrolled type 2 diabetes mellitus with hyperglycemia ([facility]); Screening breast examination; Screening for colon cancer; Pyuria; Chronic bronchitis, unspecified chronic bronchitis type ([facility]) Start: 01-02-2022 Telephone encounter Ricci Cole MD Work Phone: [facility] [place] Comment on above: Results Start: 01-02-2022 End: 01-02-2022 [facility] Start: 12-31-2021 ambulatory Padmini Moura MD Work Phone: [facility] Comment on above: COPD with exacerbati on (HCC) (Primary Dx) Start: 12-31-2021 Telemedicine consultation with patient Padmini Moura MD Work Phone: MAIN VIRTUAL VISIT Start: 12-24-2021 Telephone encounter Yasmany Holland PA-C Work Phone: [facility] [place] Comment on above: Patient Update Start: 12-20-2021 Telephone encounter Yasmany Holland PA-C Work Phone: [facility] [place] Comment on above: Results UTI Start: 12-18-2021 ambulatory Sho Hebert RN [facility] Start: 12-18-2021 Follow-up encounter Sho Hebert RN Engineering Inspector Management Comment on above: Community Monitoring Outreach (Telephonic Follow Up) Start: 12-18-2021 End: 12-18-2021 Patient encounter procedure Yasmany Holland PA-C Work Phone: [facility] [place] Comment on above: Suspected COVID-19 [...] 12-12-2021 Refill Ricci Cole MD Work Phone: [facility] Comment on above: Refill Request Start: 12-06-2021 ambulatory Sho Hebert RN [facility] Start: 12-06-2021 Follow-up encounter Sho Hebert RN Engineering Inspector Management Comment on above: Community Monitoring Outreach (Telephonic Follow Up) Start: 12-03-2021 ambulatory Sho Hebert RN Engineering Inspector Management Comment on above: Community Monitoring Outreach (CDM Telephonic) Start: 11-29-2021 Refill Ricci Cole MD Work Phone: [facility] Comment on above: Refill Request Start: 11-22-2021 End: 11-22-2021 Patient encounter procedure Joyce Perry PA-C Work Phone: Pulmonary Medicine Comment on above: COPD with exacerbati on (HCC) (Primary Dx); COPD with chronic bronchitis (HCC); Tobacco use disorder, continuous Start: 07-16-2021 End: 07-16-2021 Emergency department patient visit RENAY HICKS [facility] Start: 04-11-2021 End: 04-11-2021 Subsequent hospital visit by physician Xr [facility] Work Phone: Radiology Comment on above: Acute bronchitis wit h COPD (HCC) (HCC) [J44.0, J20.9] Start: 07-27-2020 End: 07-27-2020 Subsequent hospital visit by physician Xr [facility] Work Phone: Radiology Comment on above: Cough [R05] Start: 04-12-2020 End: 04-12-2020 Emergency department patient visit TOSHIA GUILLORY [facility] Procedures Date Procedure Procedure Detail Performing Clinician [...] rgnt auto w/o microscopy Smiley A Suppan PEDIATRIC ASSOCIATE.ALUM PLANT OPERATOR Work Phone: Start: 07-26-2024 Urnls dip stick/tablet rgnt auto w/o microscopy Smiley A Suppan PEDIATRIC ASSOCIATE.ALUM PLANT OPERATOR Work Phone: Start: 04-29-2024 Urnls dip stick/tablet rgnt auto w/o microscopy Smiley A Suppan PEDIATRIC ASSOCIATE.ALUM PLANT OPERATOR Work Phone: Start: 03-23-2024 Urnls dip stick/tablet rgnt auto w/o microscopy Smiley A Suppan PEDIATRIC ASSOCIATE.ALUM PLANT OPERATOR Work Phone: Start: 09-04-2023 Radiologic exam chest 2 views Nanci miller PEDIATRIC ASSOCIATE.ALUM PLANT OPERATOR Work Phone: Start: 08-04-2023 Plain chest X-ray Start: 07-09-2023 Gluc bld gluc mntr dev cleared fda spec home use Sophia Fan PEDIATRIC ASSOCIATE.ALUM PLANT OPERATOR Work Phone: Start: 07-09-2023 Urnls dip stick/tablet rgnt auto w/o microscopy Lou Corona PEDIATRIC ASSOCIATE.ALUM PLANT OPERATOR Work Phone: Start: 11-14-2022 Plain chest X-ray [...] Radiologic exam chest 2 views Lou Corona PEDIATRIC ASSOCIATE.ALUM PLANT OPERATOR Work Phone: Start: 04-12-2020 Urinalysis TOSHIA ROMERO Comment on above: Result Comment: URINALYSIS Performed By: #### 2 [id number] #### [facility],[address] [place] [address] Start: 05-18-2019 Mammography Joyce Perry PA-C Work Phone: Bacteria identified in Blood by Culture Dr. Ricci Cole Work Phone: SARS-CoV-2 & FLU Antigen (Rapid) Urine culture Dr. Ricci Milian Work Phone: Viral antigen assay Dr. Vamsi Cole Work Phone: Plan of Treatment Date Care Activity Detail Author Start: 05-06-2026 Annual PCP Team Chronic Disease Visit Annual PCP Team Chronic Disease Visit [facility] Start: 05-06-2026 RSV Vaccine (1 - Risk 60-74 years 1-dose series) RSV Vaccine (1 - Risk 60-74 years 1-dose series) [facility] Comment on above: Postponed from 2017 (Declined at t his time) Start: 05-06-2026 Shingrix Vaccine (2 of 2) Shingrix Vaccine (2 of 2) [facility] Comment on above: Postponed from 07/29/2019 (Declined at t his time) Start: 05-06-2026 Urine microalbumin profile DTaP,Tdap,Td Vaccine (1 - Tdap) [facility] Comment on above: Postponed from 1976 (Declined at t his time) Start: 03-29-2026 Annual PCP Team Chronic Disease Visit Annual PCP Team Chronic Disease Visit [facility] Start: 03-10-2026 Annual PCP Team Chronic Disease Visit Annual PCP Team Chronic Disease Visit [facility] Start: 03-01-2026 Annual PCP Team Chronic Disease Visit Annual PCP Team Chronic Disease Visit [facility] Start: 03-01-2026 Hepatitis B screening Urine Albumin:Creatinine Ratio [facility] Start: 03-01-2026 Hepatitis B surface antibody level LDL Cholesterol [facility] Start: 02-21-2026 Influenza vaccination [facility] Comment on above: Postponed from 04/25/2025 (Declined at t his time) Start: 11-03-2025 End: 02-02-2026 Hemoglobin A1c in Blood HEMOGLOBIN A1C Lab Routine Uncontrolled type 2 diabetes mellitus with hyperglycemia (HCC) Expected: 11/03/2025, Expires: 02/02/2026 [facility] Work Phone: Comment on above: Expected: 11/03/2025, Expires: Start: 09-01-2025 Hemoglobin A1c measurement HbA1C [facility] Start: 08-01-2025 End: 08-01-2025 Patient encounter procedure 08/01/2025 9:20 AM EST Office Visit [facility] [place] [address] [place], [place] [id number] Smiley Melo APRN.ALUM PLANT OPERATOR [address] [facility] [place] [id number] 3 month exam [facility] [place] Comment on above: 3 month exam Start: 07-26-2025 Annual PCP Team Chronic Disease Visit Annual PCP Team Chronic Disease Visit [facility] Start: 07-26-2025 BP Controlled (<130/80) BP Controlled (<130/80) [facility] Start: 07-26-2025 Diabetic foot examination Diabetic Foot Exam [facility] Start: 06-06-2025 Glaucoma screening Dilated Retinal Exam [facility] Comment on above: Postponed from 09/29/2024 (Currently Olga eduled) Start: 06-02-2025 End: 06-02-2025 Patient encounter procedure 06/02/2025 9:40 AM EDT Office Visit Family [facility] [place] [address] [place] [address] Smiley Melo APRN.ALUM PLANT OPERATOR [address] [place] [address] [facility]: 3 month follow up Start: 05-24-2025 End: 05-24-2025 Patient encounter procedure 05/24/2025 8:00 AM EDT Office Visit [facility] [address] [place] [address] Merlene Heaton, OD [address] [place] [address] Diagnostics, [facility] [address] [place] [id number] Diabetic Ophthalmology Comment on above: Diabetic Start: 05-15-2025 [facility] Start: 05-06-2025 End: 08-05-2025 25-hydroxyvitamin D3 [Mass/volume] in Serum or Plasma VITAMIN D 25 HYDROXY Lab Routine Vitamin D deficiency Expected: 05/06/2025, Expires: 08/05/2025 [facility] Comment on above: Expected: 05/06/2025, Expires: Start: 05-06-2025 End: 08-05-2025 Cobalamin (Vitamin B12) [Mass/volume] in Serum or Plasma VITAMIN B12 Lab Routine Vitamin B12 deficiency Expected: 05/06/2025, Expires: 08/05/2025 [facility] Comment on above: Expected: 05/06/2025, Expires: Start: 05-06-2025 End: 08-05-2025 Comprehensive metabolic 2000 panel - Serum or Plasma COMPREHENSIVE METABOLIC PANEL Lab Routine Primary hypertension Uncontrolled type 2 diabetes mellitus with hyperglycemia (HCC) Expected: 05/06/2025, Expires: 08/05/2025 [facility] Comment on above: Expected: 05/06/2025, Expires: Start: 05-06-2025 End: 06-05-2026 XR Abdomen Supine and Upright XR ABDOMEN 1V SUPINE Radiology Routine Gastroenteritis Expected: 05/06/2025, Expires: 06/05/2026 [facility] Comment on above: Expected: 05/06/2025, Expires: Start: 04-25-2025 Influenza [facility] Start: 04-08-2025 End: 04-08-2025 Patient encounter procedure 04/08/2025 1:00 PM EDT Office Visit [facility] [address] [place] [address] Merlene Heaton, OD [address] [place] [address] Diagnostics, [facility] [address] [id number] rescheduled from 02/01 Ophthalmology Comment on above: rescheduled from 02/01 Start: 03-29-2025 End: 03-29-2025 Patient encounter procedure 03/29/2025 2:30 PM EDT Office Visit [facility] [address] [place] [address] Merlene Heaton, OD [address] [place] [address] Diagnostics, [facility] [address] [id number] rescheduled from 02/01 Ophthalmology Comment on above: rescheduled from 02/01 Start: 03-25-2025 End: 03-25-2025 Patient encounter procedure 03/25/2025 9:40 AM EDT Office Visit [facility] [place] [address] [place] [address] Smiley Melo APRN.ALUM PLANT OPERATOR [address] [place] [address] 2 week follow up chronic bronchitis [facility] Comment on above: 2 week follow up chronic bronchitis Start: 03-24-2025 End: 03-24-2025 Patient encounter procedure 03/24/2025 10:20 AM EDT Office Visit Family [facility] [address] [place], [place] [id number] Smiley Melo APRN.ALUM PLANT OPERATOR [address] [place] [address] 2 week follow up chronic bronchitis [facility] Comment on above: 2 week follow up chronic bronchitis Start: 03-10-2025 End: 03-10-2025 Patient encounter procedure 03/10/2025 2:30 PM EDT Office Visit [facility] [address] [place] [address] Merlene Heaton, OD [address] [place] [address] Diagnostics, [facility] [address] [id number] rescheduled from 02/01 Ophthalmology Comment on above: rescheduled from 02/01 Start: 03-10-2025 End: 06-09-2025 Urinalysis complete panel - Urine [facility] Work Phone: Comment on above: Expected: 03/10/2025, Expires: Start: 03-10-2025 End: 03-10-2025 Patient encounter procedure 03/10/2025 10:40 AM EDT Office Visit Family [facility] [address] [place] [address] Smiley Melo NASEEM.ALUM PLANT OPERATOR [address] [facility] [place] [address] Pt was in on 03/01/25 still coughing non-stop and bringing up thick white-yellow phlegm and still with SOB. See TE 03/09/25. Family [facility] Comment on above: Pt was in on 03/01/25 still coughing non-s top and bringing up thick white-yellow phlegm and still with SOB. See TE 03/09/25. Start: 03-01-2025 End: 05-31-2025 Cobalamin (Vitamin B12) [Mass/volume] in Serum or Plasma [facility] Comment on above: Expected: 03/01/2025, Expires: Start: 03-01-2025 End: 05-31-2025 Comprehensive metabolic 2000 panel - Serum or Plasma [facility] Work Phone: Comment on above: Expected: 03/01/2025, Expires: Start: 03-01-2025 End: 05-31-2025 Hemoglobin A1c in Blood [facility] Comment on above: Expected: 03/01/2025, Expires: Start: 03-01-2025 End: 05-31-2025 LIPID PANEL, NONFASTING [facility] Comment on above: Expected: 03/01/2025, Expires: Start: 03-01-2025 End: 05-31-2025 Magnesium [Mass/volume] in Serum or Plasma [facility] Comment on above: Expected: 03/01/2025, Expires: Start: 03-01-2025 End: 05-31-2025 Microalbumin/Creatinine [Mass Ratio] in Urine [facility] Comment on above: Expected: 03/01/2025, Expires: Start: 03-01-2025 End: 05-31-2025 Thyrotropin [Units/volume] in Serum or Plasma [facility] Comment on above: Expected: 03/01/2025, Expires: Start: 02-01-2025 End: 02-01-2025 Patient encounter procedure 02/01/2025 9:00 AM EDT Office Visit [facility] [address] [place] [address] Merlene Heaton, OD [address] [place] [address] rescheduled from 12/31 Ophthalmology Comment on above: rescheduled from 12/31 Start: 01-28-2025 End: 01-28-2025 Patient encounter procedure 01/28/2025 2:40 PM EDT Office Visit Family Medicine [facility] [address] [place] [address] Smiley Melo APRN.ALUM PLANT OPERATOR [address] [place] [address] 6 month f/u-check height [facility] Comment on above: 6 month f/u-check height Start: 01-24-2025 End: 01-24-2025 Patient encounter procedure [facility] Comment on above: 6 month f/u 6 month f/u-check he ight Start: 01-11-2025 End: 01-11-2025 Patient encounter procedure 01/11/2025 9:00 AM EDT Office Visit [facility] [address] [place] [address] Merlene Heaton, OD [address] [place] [address] rescheduled from 12/31 Ophthalmology Comment on above: rescheduled from 12/31 Start: 01-03-2025 End: 04-04-2025 CBC W Auto Differential panel - Blood COMPLETE BLOOD COUNT AND DIFFERENTIAL Lab Routine Uncontrolled type 2 diabetes mellitus with hyperglycemia (HCC) Expected: 01/03/2025, Expires: 04/04/2025 [facility] Comment on above: Expected: 01/03/2025, Expires: Start: 01-03-2025 End: 04-04-2025 Comprehensive metabolic 2000 panel - Serum or Plasma COMPREHENSIVE METABOLIC PANEL Lab Routine Uncontrolled type 2 diabetes mellitus with hyperglycemia (HCC) Expected: 01/03/2025, Expires: 04/04/2025 [facility] Comment on above: Expected: 01/03/2025, Expires: Start: 01-03-2025 End: 04-04-2025 Hemoglobin A1c in Blood HEMOGLOBIN A1C Lab Routine Uncontrolled type 2 diabetes mellitus with hyperglycemia (HCC) Expected: 01/03/2025, Expires: 04/04/2025 [facility] Work Phone: Comment on above: Expected: 01/03/2025, Expires: Start: 01-03-2025 End: 04-04-2025 Lipid 1996 panel - Serum or Plasma LIPID PANEL, FASTING Lab Routine Uncontrolled type 2 diabetes mellitus with hyperglycemia (HCC) Expected: 01/03/2025, Expires: 04/04/2025 [facility] Comment on above: Expected: 01/03/2025, Expires: Start: 12-31-2024 End: 12-31-2024 Patient encounter procedure 12/31/2024 8:15 AM EDT Office Visit [facility] [address] [place] [address] Merlene Heaton, OD [address] [place] [address] Diabetic Ophthalmology Comment on above: Diabetic Start: 11-11-2024 End: 11-11-2024 Patient encounter procedure Ophthalmology Comment on above: Diabetic Start: 10-18-2024 End: 10-18-2024 Patient encounter procedure 10/18/2024 10:00 AM EST Office Visit Pulmonary Medicine [address] [place] [address] Angle Panchal APRN.ALUM PLANT OPERATOR [address] [place] [address] LCS order is in [facility] Pulmonary Medicine Comment on above: LCS order is in [facility] Start: 09-29-2024 Glaucoma screening Dilated Retinal Exam [facility] Start: 09-27-2024 End: 09-27-2024 Patient encounter procedure 09/27/2024 2:15 PM EST Appointment Radiology [address] [place] [id number] Screening for osteoporosis [Z13.820] Radiology Comment on above: Screening for osteoporosis [Z13.820] Start: 09-17-2024 End: 09-17-2024 Patient encounter procedure 09/17/2024 1:45 PM EST Office Visit [facility] [address] [place] [address] Merlene Heaton, OD [address] [place] [address] Diabetic Ophthalmology Comment on above: Diabetic Start: 08-27-2024 Annual PCP Team Chronic Disease Visit Annual PCP Team Chronic Disease Visit [facility] Start: 08-25-2024 Advance Directive Discussion Advance Directive Discussion [facility] Start: 08-25-2024 Medicare Advantage Annual Wellness Visit Medicare Advantage Annual Wellness Visit [facility] Start: 08-15-2024 Covid-19 Vaccine ( season) Covid-19 Vaccine ( season) [facility] Comment on above: Postponed from 04/25/2023 (Declined at t his time) Start: 08-15-2024 Hepatitis B surface antibody level LDL Cholesterol [facility] Start: 08-15-2024 RSV Vaccine (1 - 1-dose 60+ series) RSV Vaccine (1 - 1-dose 60+ series) [facility] Comment on above: Postponed from 2017 (Declined at t his time) Start: 08-15-2024 RSV Vaccine (1 - Risk 60-74 years 1-dose series) RSV Vaccine (1 - Risk 60-74 years 1-dose series) [facility] Comment on above: Postponed from 2017 (Declined at t his time) Start: 08-15-2024 Shingrix Vaccine (2 of 2) Shingrix Vaccine (2 of 2) [facility] Comment on above: Postponed from 07/29/2019 (Declined at t his time) Start: 08-02-2024 End: 11-01-2024 Bacteria identified in Urine by Culture URINE CULTURE Microbiology Routine Recurrent UTI (urinary tract infection) Expected: 08/02/2024, Expires: 11/01/2024 [facility] Comment on above: Expected: 08/02/2024, Expires: Start: 07-26-2024 End: 10-25-2024 Bacteria identified in Urine by Culture URINE CULTURE Microbiology Routine Recurrent UTI (urinary tract infection) Expected: 07/26/2024, Expires: 10/25/2024 [facility] Comment on above: Expected: 07/26/2024, Expires: Start: 07-26-2024 End: 10-25-2024 CBC W Auto Differential panel - Blood COMPLETE BLOOD COUNT AND DIFFERENTIAL Lab Routine Fibromyalgia Type 2 diabetes mellitus without complication, without long-term current use of insulin (HCC) Chronic nausea Expected: 07/26/2024, Expires: 10/25/2024 [facility] Comment on above: Expected: 07/26/2024, Expires: Start: 07-26-2024 End: 10-25-2024 Cobalamin (Vitamin B12) [Mass/volume] in Serum or Plasma VITAMIN B12 Lab Routine Fibromyalgia Type 2 diabetes mellitus without complication, without long-term current use of insulin (HCC) Chronic nausea Expected: 07/26/2024, Expires: 10/25/2024 [facility] Comment on above: Expected: 07/26/2024, Expires: Start: 07-26-2024 End: 10-25-2024 Comprehensive metabolic 2000 panel - Serum or Plasma COMPREHENSIVE METABOLIC PANEL Lab Routine Fibromyalgia Type 2 diabetes mellitus without complication, without long-term current use of insulin (HCC) Chronic nausea Expected: 07/26/2024, Expires: 10/25/2024 [facility] Comment on above: Expected: 07/26/2024, Expires: Start: 07-26-2024 End: 10-25-2024 Hemoglobin A1c in Blood HEMOGLOBIN A1C Lab Routine Uncontrolled type 2 diabetes mellitus with hyperglycemia (HCC) Expected: 07/26/2024, Expires: 10/25/2024 [facility] Comment on above: Expected: 07/26/2024, Expires: Start: 07-26-2024 End: 10-25-2024 LIPID PANEL, NONFASTING LIPID PANEL, NONFASTING Lab Routine Fibromyalgia Type 2 diabetes mellitus without complication, without long-term current use of insulin (HCC) Chronic nausea Expected: 07/26/2024, Expires: 10/25/2024 [facility] Comment on above: Expected: 07/26/2024, Expires: Start: 07-26-2024 End: 10-25-2024 Magnesium [Mass/volume] in Serum or Plasma MAGNESIUM Lab Routine Fibromyalgia Type 2 diabetes mellitus without complication, without long-term current use of insulin (HCC) Chronic nausea Expected: 07/26/2024, Expires: 10/25/2024 [facility] Comment on above: Expected: 07/26/2024, Expires: Start: 07-26-2024 End: 10-25-2024 Microalbumin/Creatinine [Mass Ratio] in Urine ALBUMIN/CREATININE RATIO, URINE Lab Routine Uncontrolled type 2 diabetes mellitus with hyperglycemia (HCC) Expected: 07/26/2024, Expires: 10/25/2024 [facility] Comment on above: Expected: 07/26/2024, Expires: Start: 06-01-2024 End: 06-01-2024 Patient encounter procedure 06/01/2024 1:20 PM EDT Office Visit [facility] [place] [address] [place] [address] Smiley Melo APRN.ALUM PLANT OPERATOR [address] [place], [place] [id number] 1 month f/u [facility] Comment on above: 1 month f/u Start: 04-30-2024 End: 04-30-2024 Patient encounter procedure 04/30/2024 4:20 PM EDT Office Visit [facility] Ida Johnson [address] [place], [place] [id number] Ricci Cole MD [address] [place], [place] [address] incontinence [facility] Comment on above: incontinence Start: 04-29-2024 End: 07-29-2024 Bacteria identified in Urine by Culture [facility] Work Phone: Comment on above: Expected: 04/29/2024, Expires: Start: 04-25-2024 Covid-19 Vaccine ( season) Covid-19 Vaccine ( season) [facility] Start: 04-25-2024 Covid-19 Vaccine () Covid-19 Vaccine () [facility] Start: 04-25-2024 Influenza vaccination [facility] Start: 04-15-2024 3 comp foot exam completed DIABETIC FOOT EXAM [facility] Start: 04-15-2024 ANNUAL PCP TEAM CHRONIC DISEASE VISIT ANNUAL PCP TEAM CHRONIC DISEASE VISIT [facility] Start: 04-15-2024 Diabetic foot examination Diabetic Foot Exam [facility] Start: 04-15-2024 Hepatitis B screening URINE ALBUMIN:CREATININE RATIO [facility] Start: 04-15-2024 Hepatitis B surface antibody level LDL CHOLESTEROL [facility] Start: 04-15-2024 Urine microalbumin profile [facility] Comment on above: Postponed from 1976 (Declined at t his time) Start: 04-09-2024 End: 04-09-2024 Patient encounter procedure 04/09/2024 9:40 AM EDT Office Visit Family [facility] [address] [place], [place] [id number] Smiley Melo APRN.ALUM PLANT OPERATOR [address] [place], [place] [id number] 2 week UTI f/u [facility] Comment on above: 2 week UTI f/u Start: 04-08-2024 End: 07-08-2024 Bacteria identified in Urine by Culture URINE CULTURE Microbiology Routine Recurrent UTI (urinary tract infection) Expected: 04/08/2024, Expires: 07/08/2024 [facility] Work Phone: Comment on above: Expected: 04/08/2024, Expires: Start: 04-06-2024 End: 04-06-2024 Patient encounter procedure 04/06/2024 10:40 AM EDT Office Visit Family Medicine [facility] [address] [facility] [place] [address] Smiley Melo, PEDIATRIC ASSOCIATE.ALUM PLANT OPERATOR [address] [place], [place] [address] 2 week UTI f/u [facility] Comment on above: 2 week UTI f/u Start: 03-23-2024 End: 03-23-2024 Patient encounter procedure 03/23/2024 1:40 PM EDT Office Visit [facility] [address] [place] [address] Ricci Cole MD [address] [place], [place] [id number] med refills [facility] Comment on above: med refills Start: 03-23-2024 End: 03-23-2024 Patient encounter procedure 03/23/2024 10:20 AM EDT Office Visit [facility] [address] [place] [address] Smiley Melo, PEDIATRIC ASSOCIATE.ALUM PLANT OPERATOR [address] [place] [address] Burning with Urination. See triage 03/22/2024 [facility] Comment on above: Burning with Urination. See triage 2023 Start: 02-22-2024 Influenza vaccination Influenza Vaccine (#1) [facility] Comment on above: Postponed from 04/25/2023 (Declined at t his time) Start: 02-14-2024 Hemoglobin A1c measurement HbA1C [facility] Start: 10-16-2023 Hemoglobin A1c measurement HbA1C [facility] Start: 10-16-2023 Hemoglobin A1c/Hemoglobin.total in Blood HBA1C [facility] Start: 08-25-2023 Advance Directive Discussion Advance Directive Discussion [facility] Start: 08-06-2023 Patient discharge [facility] Start: 08-05-2023 Referral to occupational therapist [facility] Start: 08-05-2023 Referral to service [facility] Start: 08-04-2023 Assessment of risk of venous thromboembolism [facility] Start: 08-04-2023 Care regimes management [facility] Start: 08-04-2023 Inhalation therapy procedure [facility] Start: 08-04-2023 Insertion of catheter into peripheral vein [facility] Start: 08-04-2023 Measuring intake and output [facility] Start: 08-04-2023 Notification of physician [facility] Start: 08-04-2023 Providing care according to standard [facility] Start: 08-04-2023 Provision of activity privileges [facility] Start: 08-04-2023 [facility] Start: 08-04-2023 Following clinical pathway protocol [facility] Start: 08-04-2023 Blood culture [facility] Start: 08-04-2023 Verification routine [facility] Start: 08-04-2023 Admission procedure [facility] Start: 08-04-2023 Hospital admission, emergency, from emergency room, medical nature [facility] Start: 08-04-2023 Bacteria identified in Blood by Culture Blood Culture [facility] Start: 08-04-2023 Bacteria identified in Urine by Culture Urine Culture [facility] Start: 08-04-2023 Urine culture Urine Culture [facility] Start: 08-04-2023 End: 08-05-2023 [facility] Start: 08-04-2023 Patient referral to dietitian [facility] Start: 04-25-2023 Covid-19 Vaccine ( season) Covid-19 Vaccine ( season) [facility] Start: 04-25-2023 Influenza vaccination [facility] Start: 04-15-2023 End: 06-15-2023 25-hydroxyvitamin D3 [Mass/volume] in Serum or Plasma [facility] Work Phone: Comment on above: Expected: 04/15/2023, Expires: 3 Start: 04-15-2023 End: 06-15-2023 Bacteria identified in Urine by Culture [facility] Work Phone: Comment on above: Expected: 04/15/2023, Expires: 3 Start: 04-15-2023 End: 06-15-2023 Comprehensive metabolic 2000 panel - Serum or Plasma [facility] Work Phone: Comment on above: Expected: 04/15/2023, Expires: Start: 04-15-2023 End: 06-15-2023 LIPID PANEL, NONFASTING [facility] Work Phone: Comment on above: Expected: 04/15/2023, Expires: Start: 04-15-2023 End: 06-15-2023 Magnesium [Mass/volume] in Serum or Plasma [facility] Work Phone: Comment on above: Expected: 04/15/2023, Expires: Start: 04-15-2023 End: 06-15-2023 Thyrotropin [Units/volume] in Serum or Plasma [facility] Work Phone: Comment on above: Expected: 04/15/2023, Expires: Start: 01-29-2023 ANNUAL PCP TEAM CHRONIC DISEASE VISIT ANNUAL PCP TEAM CHRONIC DISEASE VISIT [facility] Start: 01-29-2023 SHINGRIX VACCINE (1 of 2) SHINGRIX VACCINE (1 of 2) [facility] Comment on above: Postponed from 2007 (Insurance Cov erage) Start: 01-29-2023 Urine microalbumin profile DTAP,TDAP,TD (1 - Tdap) [facility] Comment on above: Postponed from 1976 (Insurance Cov erage) Start: 01-05-2023 ANNUAL PCP TEAM CHRONIC DISEASE VISIT ANNUAL PCP TEAM CHRONIC DISEASE VISIT [facility] Start: 01-05-2023 Hepatitis B screening URINE ALBUMIN:CREATININE RATIO [facility] Start: 01-05-2023 Hepatitis B surface antibody level LDL CHOLESTEROL [facility] Start: 12-18-2022 ANNUAL PCP TEAM CHRONIC DISEASE VISIT ANNUAL PCP TEAM CHRONIC DISEASE VISIT [facility] Start: 12-18-2022 Hepatitis B surface antibody level LDL CHOLESTEROL [facility] Start: 11-25-2022 End: 01-25-2023 ALBUMIN/CREAT RATIO RND UR ALBUMIN/CREAT RATIO RND UR Lab Routine Type 2 diabetes mellitus without complication, without long-term current use of insulin (HCC) Expected: 11/25/2022, Expires: 01/25/2023 [facility] Work Phone: Comment on above: Expected: 11/25/2022, Expires: 3 Start: 11-25-2022 End: 01-25-2023 CBC W Auto Differential panel - Blood CBC + DIFF Lab Routine Type 2 diabetes mellitus without complication, without long-term current use of insulin (HCC) Expected: 11/25/2022, Expires: 01/25/2023 [facility] Work Phone: Comment on above: Expected: 11/25/2022, Expires: 3 Start: 11-25-2022 End: 01-25-2023 Comprehensive metabolic 2000 panel - Serum or Plasma COMP METABOLIC PANEL Lab Routine Type 2 diabetes mellitus without complication, without long-term current use of insulin (HCC) Expected: 11/25/2022, Expires: 01/25/2023 [facility] Work Phone: Comment on above: Expected: 11/25/2022, Expires: 3 Start: 11-25-2022 End: 01-25-2023 Hemoglobin A1c in Blood HGB A1C Lab Routine Type 2 diabetes mellitus without complication, without long-term current use of insulin (HCC) Expected: 11/25/2022, Expires: 01/25/2023 [facility] Work Phone: Comment on above: Expected: 11/25/2022, Expires: Start: 11-25-2022 End: 01-25-2023 Lipid 1996 panel - Serum or Plasma LIPID PANEL BASIC Lab Routine Type 2 diabetes mellitus without complication, without long-term current use of insulin (HCC) Expected: 11/25/2022, Expires: 01/25/2023 [facility] Work Phone: Comment on above: Expected: 11/25/2022, Expires: 3 Start: 11-14-2022 [facility] Start: 09-07-2022 3 comp foot exam completed DIABETIC FOOT EXAM [facility] Start: 09-07-2022 ANNUAL PCP TEAM CHRONIC DISEASE VISIT ANNUAL PCP TEAM CHRONIC DISEASE VISIT [facility] Start: 08-25-2022 ADVANCE DIRECTIVE DISCUSSION ADVANCE DIRECTIVE DISCUSSION [facility] Start: 07-08-2022 Hemoglobin A1c/Hemoglobin.total in Blood HBA1C [facility] Start: 06-12-2022 Patient discharge [facility] Work Phone: Start: 05-11-2022 Iv infusion therapy/prophylaxis /dx 1st [facility] Start: 05-10-2022 Iv infusion therapy/prophylaxis /dx 1st to 1 hr [facility] Start: 05-09-2022 Iv infusion therapy/prophylaxis /dx 1st to 1 hr [facility] Start: 05-08-2022 Iv infusion therapy/prophylaxis /dx 1st to 1 hr [facility] Start: 05-07-2022 Iv infusion therapy/prophylaxis /dx 1st to 1 hr [facility] Start: 05-06-2022 Iv infusion therapy/prophylaxis /dx 1st to 1 hr [facility] Start: 05-05-2022 Care of central venous catheter [facility] Work Phone: Start: 05-05-2022 Following clinical pathway protocol [facility] Work Phone: Start: 05-04-2022 Care of central venous catheter [facility] Work Phone: Start: 05-04-2022 Following clinical pathway protocol [facility] Work Phone: Start: 05-03-2022 Patient discharge [facility] Work Phone: Start: 05-02-2022 Following clinical pathway protocol [facility] Work Phone: Start: 05-02-2022 Referral to service [facility] Work Phone: Start: 05-01-2022 Consultation [facility] Work Phone: Start: 05-01-2022 End: 07-01-2022 CBC W Auto Differential panel - Blood CBC + DIFF Lab Routine Type 2 diabetes mellitus without complication, without long-term current use of insulin (HCC) Expected: 05/01/2022, Expires: 07/01/2022 [facility] Work Phone: Comment on above: Expected: 05/01/2022, Expires: 2 Start: 05-01-2022 End: 07-01-2022 Comprehensive metabolic 2000 panel - Serum or Plasma COMP METABOLIC PANEL Lab Routine Type 2 diabetes mellitus without complication, without long-term current use of insulin (HCC) Expected: 05/01/2022, Expires: 07/01/2022 [facility] Work Phone: Comment on above: Expected: 05/01/2022, Expires: 2 Start: 05-01-2022 End: 07-01-2022 Hemoglobin A1c/Hemoglobin.total in Blood HGB A1C Lab Routine Type 2 diabetes mellitus without complication, without long-term current use of insulin (HCC) Expected: 05/01/2022, Expires: 07/01/2022 [facility] Work Phone: Comment on above: Expected: 05/01/2022, Expires: 2 Start: 05-01-2022 End: 07-01-2022 LIPID PANEL BASIC LIPID PANEL BASIC Lab Routine Type 2 diabetes mellitus without complication, without long-term current use of insulin (HCC) Expected: 05/01/2022, Expires: 07/01/2022 [facility] Work Phone: Comment on above: Expected: 05/01/2022, Expires: 2 Start: 05-01-2022 End: 07-01-2022 Magnesium [Mass/volume] in Serum or Plasma MAGNESIUM BLD Lab Routine Type 2 diabetes mellitus without complication, without long-term current use of insulin (HCC) Expected: 05/01/2022, Expires: 07/01/2022 [facility] Work Phone: Comment on above: Expected: 05/01/2022, Expires: Start: 05-01-2022 Following clinical pathway protocol [facility] Work Phone: Start: 05-01-2022 Assessment of risk of venous thromboembolism [facility] Work Phone: Start: 05-01-2022 Care regimes management [facility] Work Phone: Start: 05-01-2022 Insertion of catheter into peripheral vein [facility] Work Phone: Start: 05-01-2022 Providing care according to standard [facility] Work Phone: Start: 05-01-2022 Referral to occupational therapist [facility] Work Phone: Start: 05-01-2022 Referral to service [facility] Work Phone: Start: 05-01-2022 [facility] Work Phone: Start: 05-01-2022 Verification routine [facility] Work Phone: Start: 05-01-2022 Admission procedure [facility] Work Phone: Start: 05-01-2022 Inhalation therapy procedure [facility] Work Phone: Start: 04-30-2022 [facility] Work Phone: Start: 04-30-2022 End: 04-30-2022 Blood culture [facility] Work Phone: Start: 04-25-2022 Influenza vaccination [facility] Start: 2022 ADVANCE DIRECTIVE DISCUSSION ADVANCE DIRECTIVE DISCUSSION [facility] Start: 2022 BONE DENSITY BONE DENSITY [facility] Start: 2022 Bone Density Screening Bone Density Screening [facility] Start: 2022 Screening for osteoporosis Bone Density Screening [facility] Start: 03-21-2022 End: 05-21-2022 Comprehensive metabolic 2000 panel - Serum or Plasma COMP METABOLIC PANEL Lab Routine Low vitamin D level Serum calcium elevated Expected: 03/21/2022, Expires: 05/21/2022 [facility] Work Phone: Comment on above: Expected: 03/21/2022, Expires: 2 Start: 03-21-2022 End: 05-21-2022 PTH INTACT BLD PTH INTACT BLD Lab Routine Low vitamin D level Serum calcium elevated Expected: 03/21/2022, Expires: 05/21/2022 [facility] Work Phone: Comment on above: Expected: 03/21/2022, Expires: 2 Start: 03-21-2022 End: 05-21-2022 VITAMIN D 25 HYDROXY VITAMIN D 25 HYDROXY Lab Routine Low vitamin D level Serum calcium elevated Expected: 03/21/2022, Expires: 05/21/2022 [facility] Work Phone: Comment on above: Expected: 03/21/2022, Expires: 2 Start: 03-19-2022 COVID-19 VACCINE (2 - Booster for Moderna series) COVID-19 VACCINE (2 - Booster for Moderna series) [facility] Start: 03-19-2022 COVID-19 VACCINE (2 - Moderna series) COVID-19 VACCINE (2 - Moderna series) [facility] Start: 02-19-2022 COVID-19 VACCINE (2 - Moderna series) COVID-19 VACCINE (2 - Moderna series) [facility] Start: 02-16-2022 End: 04-18-2022 HEPATIC FUNCTION PNL HEPATIC FUNCTION PNL Lab Routine Hyperlipidemia, mixed Expected: 02/16/2022, Expires: 04/18/2022 [facility] Work Phone: Comment on above: Expected: 02/16/2022, Expires: 2 Start: 02-16-2022 End: 04-18-2022 LIPID PANEL BASIC LIPID PANEL BASIC Lab Routine Hyperlipidemia, mixed Expected: 02/16/2022, Expires: 04/18/2022 [facility] Work Phone: Comment on above: Expected: 02/16/2022, Expires: Start: 01-22-2022 Patient discharge [facility] Work Phone: Start: 01-22-2022 Consultation [facility] Work Phone: Start: 01-18-2022 Inhalation therapy procedure [facility] Work Phone: Start: 01-17-2022 Following clinical pathway protocol [facility] Work Phone: Start: 01-17-2022 Ambulation without limitation [facility] Work Phone: Start: 01-17-2022 Assessment of risk of venous thromboembolism [facility] Work Phone: Start: 01-17-2022 Care regimes management [facility] Work Phone: Start: 01-17-2022 Insertion of catheter into peripheral vein [facility] Work Phone: Start: 01-17-2022 Providing care according to standard [facility] Work Phone: Start: 01-17-2022 Referral to service [facility] Work Phone: Start: 01-17-2022 [facility] Work Phone: Start: 01-17-2022 Admission procedure [facility] Work Phone: Start: 01-17-2022 Bacteria identified in Blood by Culture Blood Culture [facility] Work Phone: Start: 01-17-2022 Bacteria identified in Urine by Culture Urine Culture [facility] Work Phone: Start: 01-17-2022 [facility] Work Phone: Start: 01-07-2022 End: 03-09-2022 CBC W Auto Differential panel - Blood CBC + DIFF Lab Routine Leukocytosis, unspecified type Expected: 01/07/2022, Expires: 03/09/2022 [facility] Work Phone: Comment on above: Expected: 01/07/2022, Expires: 2 Start: 01-05-2022 End: 03-07-2022 ALBUMIN/CREAT RATIO RND UR [facility] Work Phone: Comment on above: Expected: 01/05/2022, Expires: 2 Start: 01-05-2022 End: 03-07-2022 CBC W Auto Differential panel - Blood [facility] Work Phone: Comment on above: Expected: 01/05/2022, Expires: 2 Start: 01-05-2022 End: 03-07-2022 CBC W Ordered Manual Differential panel - Blood [facility] Work Phone: Comment on above: Expected: 01/05/2022, Expires: 2 Start: 01-05-2022 End: 03-07-2022 Hemoglobin A1c/Hemoglobin.total in Blood [facility] Work Phone: Comment on above: Expected: 01/05/2022, Expires: 2 Start: 01-02-2022 Bacteria identified in Urine by Culture Urine Culture [facility] Work Phone: Start: 12-18-2021 End: 02-17-2022 ALBUMIN/CREAT RATIO RND UR ALBUMIN/CREAT RATIO RND UR Lab Routine Uncontrolled type 2 diabetes mellitus with hyperglycemia (HCC) Expected: 12/18/2021, Expires: 02/17/2022 [facility] Work Phone: Comment on above: Expected: 12/18/2021, Expires: 2 Start: 12-18-2021 End: 02-17-2022 Bacteria identified in Urine by Culture [facility] Work Phone: Comment on above: Expected: 12/18/2021, Expires: 2 Start: 12-18-2021 End: 02-17-2022 CBC W Auto Differential panel - Blood [facility] Work Phone: Comment on above: Expected: 12/18/2021, Expires: 2 Start: 12-18-2021 End: 02-17-2022 Comprehensive metabolic 2000 panel - Serum or Plasma [facility] Work Phone: Comment on above: Expected: 12/18/2021, Expires: 2 Start: 12-18-2021 End: 02-17-2022 Lipase [Enzymatic activity/volume] in Serum or Plasma [facility] Work Phone: Comment on above: Expected: 12/18/2021, Expires: 2 Start: 12-18-2021 End: 02-17-2022 LIPID PANEL BASIC [facility] Work Phone: Comment on above: Expected: 12/18/2021, Expires: 2 Start: 12-18-2021 End: 02-17-2022 VITAMIN D 25 HYDROXY [facility] Work Phone: Comment on above: Expected: 12/18/2021, Expires: 2 Start: 09-01-2021 Hepatitis B screening URINE ALBUMIN:CREATININE RATIO [facility] Start: 09-01-2021 Hepatitis B surface antibody level LDL CHOLESTEROL [facility] Start: 04-25-2021 Influenza vaccination INFLUENZA (#1) [facility] Start: 03-25-2021 Hemoglobin A1c/Hemoglobin.total in Blood HBA1C [facility] Start: 05-18-2020 Mammography [facility] Start: 05-18-2020 Screening for malignant neoplasm of breast Mammogram Screening [facility] Start: 01-23-2020 PNEUMOCOCCAL (2 - PCV) PNEUMOCOCCAL (2 - PCV) [facility] Start: 01-23-2020 PNEUMOCOCCAL: 65+ (2 - PCV) PNEUMOCOCCAL: 65+ (2 - PCV) [facility] Start: 07-29-2019 Shingrix Vaccine (2 of 2) Shingrix Vaccine (2 of 2) [facility] Start: 04-12-2017 Glaucoma screening Dilated Retinal Exam [facility] Start: 04-12-2017 Hepatitis C antibody, confirmatory test DILATED RETINAL EXAM [facility] Start: 2017 Hepatitis B Vaccine (1 of 3 - Risk 3-dose series) Hepatitis B Vaccine (1 of 3 - Risk 3-dose series) [facility] Start: 2017 RSV Vaccine (1 - 1-dose 60+ series) RSV Vaccine (1 - 1-dose 60+ series) [facility] Start: 2017 RSV Vaccine (1 - Risk 60-74 years 1-dose series) RSV Vaccine (1 - Risk 60-74 years 1-dose series) [facility] Start: 2012 Influenza vaccination LUNG CANCER SCREENING [facility] Start: 2007 Influenza vaccination LUNG CANCER SCREENING [facility] Start: 2007 Screening for malignant neoplasm of lung Lung Cancer Screening [facility] Start: 2007 SHINGRIX VACCINE (1 of 2) SHINGRIX VACCINE (1 of 2) [facility] Start: 2002 COLOGUARD (FIT-DNA) COLOGUARD (FIT-DNA) [facility] Start: 2002 Colonoscopy COLONOSCOPY [facility] Start: 2002 COLORECTAL CANCER SCREENING COLORECTAL CANCER SCREENING [facility] Start: [address] COLONOGRAPHY [facility] Start: 2002 FECAL OCCULT BLOOD FECAL OCCULT BLOOD [facility] Start: 2002 Screening for malignant neoplasm of colon [facility] Start: 2002 SIGMOIDOSCOPY SIGMOIDOSCOPY [facility] Start: 1987 Zoledronic acid therapy ALPHA-1 ANTITRYPSIN DEFICIENCY SCREENING [facility] Start: 1976 Urine microalbumin profile [facility] Start: 1975 BP CONTROLLED (<130/80) BP CONTROLLED (<130/80) [facility] in Start: 1975 HIV SCREENING HIV SCREENING [facility] Start: 1962 COVID-19 VACCINE (#1) COVID-19 VACCINE (#1) [facility] Start: 1962 COVID-19 VACCINE (1) COVID-19 VACCINE (1) [facility] Bacteria identified in Blood by Culture Blood Culture [facility] Work Phone: Bacteria identified in Urine by Culture Urine Culture [facility] Bacteria identified in Urine by Culture URINE CULTURE Microbiology Routine Dysuria 03/23/2024 1:28 PM EDT [facility] Work Phone: Bacteria identified in Urine by Culture BACTERIAL CULTURE, URINE Microbiology Routine Recurrent UTI (urinary tract infection) 03/01/2025 10:58 AM EDT [facility] End: 08-25-2025 BD DXA TRABECULAR BONE SCORE (TBS) BD DXA TRABECULAR BONE SCORE (TBS) Radiology Routine Screening for osteoporosis Asymptomatic menopause 1 Occurrences starting 07/26/2024 until 08/25/2025 [facility] Comment on above: 1 Occurrences starting 07/26/2024 until 08/25/2025 Blood culture [facility] Work Phone: End: 04-16-2025 DBT Breast - bilateral screening JANELL SCREENING W KOKO Radiology Routine Encounter for screening mammogram for breast cancer 1 Occurrences starting 03/17/2024 until 04/16/2025 [facility] Work Phone: Comment on above: 1 Occurrences starting 03/17/2024 until 04/16/2025 End: 03-17-2026 DBT Breast - bilateral screening JANELL SCREENING W [facility] Radiology Routine Encounter for screening mammogram for breast cancer 1 Occurrences starting 02/15/2025 until 03/17/2026 [facility] Work Phone: Comment on above: 1 Occurrences starting 02/15/2025 until 03/17/2026 End: 08-25-2025 DXA Skeletal system.axial Views for bone density DXA-AXIAL SKELETON Radiology Routine Screening for osteoporosis Asymptomatic menopause 1 Occurrences starting 07/26/2024 until 08/25/2025 [facility] Work Phone: Comment on above: 1 Occurrences starting 07/26/2024 until 08/25/2025 End: 05-14-2024 DXA-AXIAL SKELETON DXA-AXIAL SKELETON Radiology Routine Asymptomatic postmenopausal status 1 Occurrences starting 04/15/2023 until 05/14/2024 [facility] Work Phone: Comment on above: 1 Occurrences starting 04/15/2023 until 05/14/2024 End: 12-18-2022 ECG COMPLETE ECG COMPLETE ECG Routine Intermittent chest pain 1 Occurrences starting 12/18/2021 until 12/18/2022 [facility] Work Phone: Comment on above: 1 Occurrences starting 12/18/2021 until 12/18/2022 Hemoglobin.gastroint odalis nal.lower [Presence] in Stool by Immunoassay FECAL OCCULT BLOOD TEST Lab Routine Screening for colon cancer Ordered: 01/29/2022 [facility] Work Phone: Comment on above: Ordered: 01/29/2022 Hemoglobin.gastroint odalis nal.lower [Presence] in Stool by Immunoassay FECAL OCCULT BLOOD TEST Lab Routine Screening for colon cancer Ordered: 04/15/2023 [facility] Work Phone: Comment on above: Ordered: 04/15/2023 Hemoglobin.gastroint odalis nal.lower [Presence] in Stool by Immunoassay IMMUNOCHEMICAL FECAL OCCULT BLOOD TEST Lab Routine Screening for colon cancer Ordered: 07/26/2024 [facility] Comment on above: Ordered: 07/26/2024 HEPATIC FUNCTION PNL HEPATIC FUN CTION PNL Lab Routine Hyperlipidemia, mixed 01/05/2022 11:11 AM EDT [facility] Work Phone: Influenza virus A an d B RNA and SARS-CoV-2 (COVID-19) N gene panel - Respiratory specimen by CONNOR with probe detection COVID WITH FLUA+B, ROUTINE Microbiology Routine Suspected COVID-19 virus infection Ordered: 12/18/2021 [facility] Work Phone: Comment on above: Ordered: 12/18/2021 LIPID PANEL BASIC LIPID PANEL BA SIC Lab Routine Hyperlipidemia, mixed 01/05/2022 11:11 AM EDT [facility] Work Phone: End: 01-10-2024 JANELL SCREENING JANELL SCREENING Radiology Routine Encounter for screening mammogram for breast cancer 1 Occurrences starting 12/11/2022 until 01/10/2024 [facility] Work Phone: Comment on above: 1 Occurrences starting 12/11/2022 until 01/10/2024 End: 05-14-2024 JANELL SCREENING JANELL SCREENING Radiology Routine Visit for screening mammogram 1 Occurrences starting 04/15/2023 until 05/14/2024 [facility] Work Phone: Comment on above: 1 Occurrences starting 04/15/2023 until 05/14/2024 Patient Education [facility] Work Phone: Patient referral [facility] Work Phone: End: 01-17-2023 Radiologic exam chest 2 views XR CHEST 2V FRONTAL/LAT Radiology Routine SOB (shortness of breath) Mixed simple and mucopurulent chronic bronchitis (HCC) Tobacco use disorder 1 Occurrences starting 12/18/2021 until 01/17/2023 [facility] Work Phone: Comment on above: 1 Occurrences starting 12/18/2021 until 01/17/2023 SARS-CoV-2 (COVID-19 ) RNA [Presence] in Respiratory specimen by CONNOR with probe detection 2019 CORONAVIRUS Microbiology Routine Suspected COVID-19 virus infection Ordered: 12/18/2021 [facility] Work Phone: Comment on above: Ordered: 12/18/2021 End: 02-04-2023 Screening mammography bi 2-view breast inc cad JANELL SCREENING Radiology Routine Screening breast examination 1 Occurrences starting 01/05/2022 until 02/04/2023 [facility] Work Phone: Comment on above: 1 Occurrences starting 01/05/2022 until 02/04/2023 End: 12-22-2022 SPIROMETRY BASELINE ONLY [facility] Work Phone: Comment on above: 1 Occurrences starting 11/22/2021 until 12/22/2022 Urinalysis complete panel - Urine URINALYSIS, WITH MICROSCOPIC Lab Routine Fatigue, unspecified type Urinary frequency 12/18/2021 12:01 PM EDT [facility] Work Phone: Urinalysis complete panel - Urine URINALYSIS, WITH MICROSCOPIC Lab Routine Dysuria 03/23/2024 1:28 PM EDT [facility] Immunizations Immunization Date Immunization Notes Care Provider Graeme heart 07-26-2024 influenza, high dose seasonal, preservative-free Smiley Suppan PEDIATRIC ASSOCIATE.ALUM PLANT OPERATOR Work Phone: [facility] 07-26-2024 influenza virus vaccine, unspecified formulation Smiley Suppan PEDIATRIC ASSOCIATE.ALUM PLANT OPERATOR Work Phone: [facility] 04-15-2023 pneumococcal (PCV20) vaccine, 20 valent (PREVNAR 20) Nanci Huber PEDIATRIC ASSOCIATE.ALUM PLANT OPERATOR Work Phone: [facility] 04-15-2023 pneumococcal Conjuga te, unspecified formulation Nanci Haagen PEDIATRIC ASSOCIATE.ALUM PLANT OPERATOR Work Phone: [facility] Work Phone: 01-22-2022 Covid (Moderna) Dr. Ricci Cole Work Phone: [facility] 06-13-2019 influenza, injectabl e, quadrivalent, contains preservative Joyce Perry PA-C Work Phone: [facility] Work Phone: 06-13-2019 influenza virus vaccine, unspecified formulation Ricci Cole MD Work Phone: [facility] 06-03-2019 influenza, injectabl e, quadrivalent, preservative free Smiley Suppan PEDIATRIC ASSOCIATE.ALUM PLANT OPERATOR Work Phone: [facility] 06-03-2019 zoster vaccine recombinant Smiley Suppan PEDIATRIC ASSOCIATE.ALUM PLANT OPERATOR Work Phone: [facility] 01-22-2019 pneumococcal polysaccharide vaccine, 23 valent Joyce Perry PA-C Work Phone: [facility] 06-30-2018 influenza, injectabl e, quadrivalent, contains preservative Joyce Orlando PA-C Work Phone: [facility] Work Phone: 04-09-2016 influenza, seasonal, injectable Smiley Suppan PEDIATRIC ASSOCIATE.ALUM PL[employer] OPERATOR Work Phone: [facility] 06-18-2013 Influenza virus vaccine [facility] 06-18-2013 influenza, seasonal, injectable, preservative free Smiley Suppan PEDIATRIC ASSOCIATE.ALUM PLANT OPERATOR Work Phone: [facility] 04-25-2013 pneumococcal polysaccharide vaccine, 23 valent Joyce Perry PA-C Work Phone: [facility] Work Phone: 04-25-2013 Pneumococcal Vaccine [facility] Work Phone: 04-25-2013 pneumococcal vaccine , unspecified formulation [facility] Payers Date Payer Category Payer Self-pay [id number] 2025 Medicare (Managed Care) [employer] HMO [id number] 2025 Medicare [id number] 2014 Medicaid MEDICAID [facility] MEDICAID [id number] 2014-Present [phone] [address] [place] [address] Medicaid [id number] 2014 Medicaid [id number] 2014 Medicaid [id number] 2009 Medicare MEDICARE MEDICAR E A AND B [id number] 2009-Present [phone] [place] [address] Medicare [id number] 2009 Medicare [id number] 2009 Medicare [id number] 1955 Unknown [id number] 1955 Unknown [id number] Unknown [id number] Social History Date Type Detail Facility Start: 08-20-2019 End: 04-29-2024 Tobacco smoking status NHIS Occasional tobacco smoker [facility] History of tobacco use Cigarette Smoker C [facility] Start: 08-20-2019 End: 04-01-2023 Cigarettes smoked current (pack per day) - Reported 1 [facility] Start: 08-20-2019 End: 04-29-2024 Tobacco use and exposure Smokeless tobacco non-user [facility] Start: 11-22-2021 End: 05-06-2025 Alcohol intake Current non-drinker of alcohol (finding) [facility] Start: 01-04-2020 End: 06-01-2020 History SDOH Alcohol Frequency 1 [facility] Start: 05-27-2019 History SDOH Social Connections Phone 5 [facility] Start: 05-27-2019 History SDOH Social Connections Living 3 [facility] Start: 01-04-2020 History SDOH Food Worry 2 [facility] Start: 02-29-2020 End: 04-15-2023 Tobacco Comment 3 cigarettes daily? [facility] Start: 1955 Sex Assigned At Not on file C [facility] Start: 06-27-2020 End: 04-01-2022 Exposure to SARS-CoV-2 (event) Not sure [facility] Start: 01-02-2022 End: 08-06-2023 Tobacco smoking status NJIS Unknown if ever smoked [facility] Start: 03-29-2014 None [facility] Start: 01-09-2019 Spouse/ Signif icant Other [facility] Start: 08-15-2020 Cigarettes [facility] Start: 1955 Sex Assigned At Female W [facility] Start: 04-23-2022 End: 05-28-2022 Exposure to SARS-CoV-2 (event) Unable to assess [facility] Work Phone: Start: 05-27-2019 End: 04-01-2023 Social connection and isolation panel [facility] Start: 07-26-2012 Attends [employer] Not on file [facility] Are you now , , , , never or living with a partner? [facility] How often to you hav e a drink containing alcohol? Never [facility] Work Phone: Do you feel stress - tense, restless, nervous, or anxious, or unable to sleep at night because your mind is troubled all the time - these days [OSQ] Very much [facility] (I/We) worried [facility] (my/our) food would run out before (I/we) got money to buy more. Sometimes true [facility] Work Phone: Start: 05-15-2025 [facility] Medical Equipment Procedure Code Equipment Code Equipment Original Text Equipment Identifier Dates [id number], [id number], [id number], [id number], [id number], [id number], [id number], [id number], [id number], [id number], [id number], [id number], [id number], [id number], [id number], [id number], [id number] Start: 04-03-2020 End: 03-01-2025 Comment on above: [...] Assessment Result Facility 08-06-2023 Functional status Ambulates [facility] Work Phone: 05-03-2022 Functional status Ambulates [facility] Work Phone: 01-22-2022 Functional status Up ad beena;Bath room Privilege [facility] Work Phone: 03-10-2015 Are you deaf, or do you have serious difficulty hearing No 03/10/2015 10:55 AM Maricarmen Degroot LPN No [facility] 03-10-2015 Are you blind, or do you have serious difficulty seeing, even when wearing glasses Yes 03/10/2015 10:55 AM Maricarmen Degroot LPN Yes [facility] 03-10-2015 Do you have serious difficulty walking or climbing stairs Yes 03/10/2015 10:55 AM Maricarmen Degroot LPN Yes [facility] 03-10-2015 Do you have difficul ty dressing or bathing No 03/10/2015 10:55 AM Maricarmen Degroot LPN No [facility] 03-10-2015 Because of a physica l, mental, or emotional condition, do you have difficulty doing errands alone such as visiting a physician's office or shopping No 03/10/2015 10:55 AM Maricarmen Degroot LPN No [facility] Mental Status Date Assessment Result Facility 05-15-2025 Cognitive function Level Of Cons ciousness Awake [facility] Work Phone: 08-06-2023 Cognitive function Voice/Name [facility] Work Phone: 11-14-2022 Cognitive function Level Of Cons ciousness Awake;Alert;Appropriate;Fol lows Commands [facility] Work Phone: 06-12-2022 Cognitive function Voice/Name [facility] Work Phone: 05-10-2022 Cognitive function Awake;Alert;A ppropriate;Fol lows Commands [facility] Work Phone: 05-09-2022 Cognitive function Voice/Name [facility] Work Phone: 05-08-2022 Cognitive function Voice/Name [facility] Work Phone: 05-07-2022 Cognitive function Awake;Alert;A ppropriate;Fol lows Commands [facility] Work Phone: 05-06-2022 Cognitive function Awake;Alert;A ppropriate;Fol lows Commands [facility] Work Phone: 05-03-2022 Cognitive function Voice/Name [facility] Work Phone: 01-22-2022 Cognitive function Voice/Name [facility] Work Phone: 03-10-2015 Because of a physica l, mental, or emotional condition, do you have serious difficulty concentrating, remembering, or making decisions No 03/10/2015 10:55 AM Maricarmen Degroot LPN No [facility] Clinical Notes 07-27-2020 to 06-08-2025 Telephone Encounter - Ana Lam MA - 05/10/2025 4:26 PM EDTTelephone Encounter - Ana Lam MA - 05/10/2025 4:26 PM EDTPatient InstructionsPatient InstructionsPatient Instructions Note Date & Type Note Facility 06-08-2025 Note HNO ID: [id number] Author: LOU OSMAN MA Service: ? Author Type: Polo Coach Type: Progress Notes Filed: 06/08/2025 14:00 Note [...] Osman MA June 08, 2025 1:57 PM [facility] 06-08-2025 Note Patient Outreach (NE TNAV) IVET VALERO ([id number]) 1955 F Date Time Provider Department 06/08/25 [...] hours as needed for nausea/vomiting. - Insulin Keldron, Disposable, (BD ULTRA-FINE MINDY PEN NEEDLE) 32 [...] Dispense 2 boxes of 3 pens. - pyfstwmauop-kvgsjwxyw-gmerpjvc (TRELEGY ELLIPTA) 200-62.5-25 mcg inhalation powder Inhale [...] mg by mouth once daily. - Insulin Keldron, Disposable, 32 gauge x 5/16 ndle Use [...] bronchitis with chroni (more content not included)... [facility] 05-15-2025 Discharge summary [facility] 05-15-2025 Radiology Diagnostic study note [facility] Imaging Services [address] [place] [address] Chest without Contrast MR#: [id number] Acct: [id number] Name: IVET VALERO Rep #: [id number] : 1955 F 70 From: Tay Leon MD PCP: Dr. Ricci Cole MD Status: REG E R Study:Chest without Contrast Date of Exam: 05/15/25 Exam# [id number] Ordering Dr: Yahaira Quinn DO PROCEDURE: CHEST [...] renal cyst measures 3.5 cm. Reading Location: [facility] CC: Dr. Ricci Cole MD; Bhavin Quinn DO ~ Final Touch Up Painter: Signed [facility] 05-15-2025 Radiology Diagnostic study note [facility] Imaging Services [address] [place] [address] Brain/Head without Contrast MR#: [id number] Acct: [id number] Name: IVET VALERO Rep #: [id number] : 1955 F 70 From: Tay Leon MD PCP: Dr. Ricci Cole MD Status: REG E R Study:Brain/Head without Contrast Date of Exa m: 05/15/25 Exam# [id number] Ordering Dr: Yahaira Quinn DO PROCEDURE: BRAIN/HEAD [...] ischemic gliotic white matter changes. Reading Location: [facility] CC: Dr. Ricci Cole MD; Bhavin Quinn DO ~ Final Touch Up Painter: Signed [facility] 05-10-2025 Telephone encounter Note PA for phenergan suppository approved till 05/10/26. Patient was notified Ana Lam MA [facility] 05-10-2025 Miscellaneous Notes PA for phenergan suppository approved till 05/10/26. Patient was notified Ana Lam MA Megha HERNANDEZ Machinist Mechanic [facility] I about Pt's insurance PA for the Phenergan suppository. The Reference # is [id number], she states they will fax the recommendation within 24 hours to providers fax #. Diane Guillermo RN documented in this encounter [facility] 05-10-2025 Telephone encounter Note A prescription for 20 tablets with 2 refills was sent to pharmacy on 04/04/25. Per pharm dispense report, rx was filled and dispensed on 04/05/25, 04/08/25, 04/13/25. Kash Ledesma LPN [facility] 05-10-2025 Miscellaneous Notes A prescription for 20 [...] 6 hours as needed [facility]iting[facility] 2[facility]12 PM documented in this encounter [facility] 05-10-2025 Telephone encounter Note Prescription Refill Information [...] 6 hours as needed [facility]iting. [facility] 10, [facility] 2:12 PM [facility] 05-10-2025 Telephone encounter Note Prescription Refill Information [...] Tyra Greer May 10, 2025 2:07 PM [facility] 05-10-2025 Miscellaneous Notes Prescription Refill Information The [...] 2025 2:07 PM documented in this encounter [facility] 05-10-2025 Telephone encounter Note Megha HERNANDEZ Machinist Mechanic with [employer] called I about Pt's insurance PA for the Phenergan suppository. The Reference # is [id number], she states they will fax the recommendation within 24 hours to providers fax #. Diane Guillerom RN [facility] 05-06-2025 Instructions Smiley Melo APRN.CNP - 05/06/2025 [...] when feeling better documented in this encounter [facility] 05-06-2025 Note HNO ID: [id number] Author: SMILEY MELO APRN.CNP Service: ? Author [...] 6 hours as needed for nausea/vomiting. Insulin Keldron, Disposable, (BD ULTRA-FINE MINDY PEN NEEDLE) 32 [...] E11.9 Dispense 2 boxes of 3 pens. yrniegimgmy-lclsmayws-msnixyva (TRELEGY ELLIPTA) 200-62.5-25 mcg inhalation powder Inhale [...] 300 mg by mouth once daily. Insulin Keldron, Disposable, 32 gauge x 5/16 ndle U (more content not included)... [facility] 05-06-2025 History of Present illness Narrative [...] 6 hours as needed for nausea/vomiting. Insulin Keldron, Disposable, (BD ULTRA-FINE MINDY PEN NEEDLE) 32 [...] E11.9 Dispense 2 boxes of 3 pens. dlavnjvyxwb-mtpmvmgtk-gapfuvry (TRELEGY ELLIPTA) 200-62.5-25 mcg inhalation powder Inhale [...] 300 mg by mouth once daily. Insulin Keldron, Disposable, 32 gauge x 5/16 ndle Use [...] as needed for worsening/no improvement. Smiley Melo, NASEEM.ALUM PLANT OPERATOR [1] Social History Tobacco Use Smoking status: Some Days Current packs/day: 1.00 Average packs/day: 1 pack/day for 40.0 years (40.0 ttl pk-yrs) Types: Cigarettes Smokeless tobacco: Never Tobacco comments: 3 cigarettes daily? Vaping Use Vaping status: Never Used Substance Use Topics Alcohol use: No Drug use: No documented in this encounter [facility] 2025 Telephone encounter Note Notified patient. [facility] 2025 Miscellaneous Notes Notified patient. Will order [...] Please advise patient. documented in this encounter [facility] 2025 Telephone encounter Note Will order Tessalon Perles, 1 Perle swallowed whole every 8 hours as needed for cough. [facility] 2025 Telephone encounter Note Patient phoned to [...] macrobid today for UTI. Please advise patient. [facility] 04-04-2025 Telephone encounter Note The following approved medication requests have been transmitted electronically. Requested Prescriptions Pending Prescriptions Disp Refills promethazine (PHENERGAN) 25 mg tablet 20 tablet 2 Sig: Take 1 tablet by mouth every 6 hours as needed for nausea/vomiting. Smiley Melo APRN.CNP [facility] 04-04-2025 Miscellaneous Notes The following approved medication [...] have any refills left. She is using [facility] [place] [facility]. Joycelyn Greer April 04, 2025 4:21 PM documented in this encounter [facility] 04-04-2025 Telephone encounter Note Prescription Refill Information [...] have any refills left. She is using [facility] Alex. Joycelyn Greer April 04, 2025 4:21 PM [facility] 03-29-2025 Note HNO ID: [id number] Author: SWATHI WALLIS Tech Service: ? Author Type: Home School Liaison Officer Type: Progress Notes Filed: 03/29/2025 12:50 Note [...] PATIENT PRESENTS WITH AN IMPLANTABLE OR ATTACHED RADIOLOGY DIRECTOR: No RADIOLOGY DEPARTMENT: General X-ray: Exam(s) Completed: Chest X-Ray PERIPHERAL IV DATA: Not applicable SIGNED BY: Odalys Grey March 29, 2025 12:19 PM [facility] 03-29-2025 Note HNO ID: [id number] Author: SMILEY MELO APRN.ALUM PLANT OPERATOR Service: ? Author Type: Nurse Practitioner Type: [...] 300 mg by mouth once daily. Insulin Keldron, Disposable, 32 gauge x 01/07 ndle Use four times daily with insulin QUEtiapine XR (SEROQUEL XR) 300 mg 24 hr tablet Take 300 mg by mouth daily at bedtime. Blood Pressure Monitor EXLARGE BLOOD PRESSURE CUFF MONITOR KIT checking bp 4 times daily Insulin Keldron, Disposable, (BD ULTRA-FINE MINDY PEN NEEDLE) 32 [...] Hypertension Mother Social (more content not included)... [facility] 03-24-2025 Telephone encounter Note Spoke with patient and she was already notified and has it taken care of. Marylu Yeung MA March 24, 2025 11:43 AM [facility] 03-24-2025 Miscellaneous Notes Spoke with patient and she was already notified and has it taken care of. Marylu Yeung MA March 24, 2025 11:43 AM Let her know not covered [facility] reports pt's incontinent supplies request was denied of payment due to not reimburseable. [facility] pcp can appeal or go through Medicaid. documented in this encounter [facility] 03-24-2025 Telephone encounter Note Let her know not covered [facility] 03-24-2025 Telephone encounter Note [facility] reports pt's incontinent supplies request was denied of payment due to not reimburseable. [facility] pcp can appeal or go through Medicaid. [facility] 03-10-2025 Note Addended by: SMILEY MELO on: 03/10/2025 11:03 AM Modules accepted: Orders [facility] 03-10-2025 Miscellaneous Notes Addended by: SMILEY MELO on: 03/10/2025 11:03 AM Modules accepted: Orders documented in this encounter [facility] 03-10-2025 Instructions Smiley Melo APRN.CNP - 03/10/2025 [...] your blood sugars. documented in this encounter [facility] 03-10-2025 Note HNO ID: [id number] Author: SMILEY MELO APRN.CNP Service: ? Author [...] scale up to 38 units tid. Insulin Keldron, Disposable, (BD ULTRA-FINE MINDY PEN NEEDLE) 32 [...] 300 mg by mouth once daily. Insulin Keldron, Disposable, 32 gauge x 01/07 ndle Use [...] packs/day: 1.00 Aver (more content not included)... [facility] 03-10-2025 History of Present illness Narrative [...] scale up to 38 units tid. Insulin Keldron, Disposable, (BD ULTRA-FINE MINDY PEN NEEDLE) 32 [...] 300 mg by mouth once daily. Insulin Keldron, Disposable, 32 gauge x 5/16 ndle Use [...] Smiley Melo APRN.SINGH documented in this encounter [facility] 03-09-2025 Telephone encounter Note Pt called and is notified of providers message. Pt voices understanding. Pt scheduled tomorrow with Duyen Melo NP. Diane Guillermo RN [facility] 03-09-2025 Miscellaneous Notes Pt called and is [...] call and antibiotic in for her to [facility] in [place]. Please call and advise. Diane Guillermo RN documented in this encounter [facility] 03-09-2025 Telephone encounter Note Agree. Needs seen [facility] 03-09-2025 Telephone encounter Note Pt called in [...] call and antibiotic in for her to [facility] in [place]. Please call and advise. Diane Guillermo RN [facility] 03-08-2025 Telephone encounter Note Pt requesting rx to go to [facility]. Kash Ledesma LPN [facility] 03-08-2025 Miscellaneous Notes Pt requesting rx to go to [facility]. Kash Ledesma LPN Prescription Refill Information The [...] 2025 8:21 AM documented in this encounter [facility] 03-08-2025 Telephone encounter Note Prescription Refill Information [...] Kareen Lam March 08, 2025 8:21 AM [facility] 03-04-2025 Telephone encounter Note Patient was made aware of the results. Patient verbalizes understanding. Marylu Yeung Ma [facility] 03-04-2025 Miscellaneous Notes Patient was made aware [...] disease B12 level is very low. Please pickling drum operator ldaq-cfu-fharqjl B12 1000 mcg and take it every [...] disease B12 level is very low. Please pickling drum operator vyfe-dkt-ecocwdf B12 1000 mcg and take it every [...] infection has resolved. documented in this encounter [facility] 03-04-2025 Telephone encounter Note ----- Message from [...] disease B12 level is very low. Please pickling drum operator rwbu-rrs-ynoivof B12 1000 mcg and take it every day. It is inexpensive and readily available at most grocery stores or big box stores. Diabetes is not well-controlled with a hemoglobin A1c of 7.9%. Remember to follow a diet low in saturated fat and we can adjust medications accordingly. Finally, vitamin D level is still low. Increase ergocalciferol to every other week. [facility] 03-04-2025 Telephone encounter Note ----- Message from Smiley Melo sent at 03/03/2025 12:28 PM EDT ----- Please let patient know that the nitrofurantoin that I prescribed for her bladder infection should be effective against the E. coli infection that she has. Please repeat urinalysis once antibiotic is complete to make certain that infection has resolved. [facility] 03-03-2025 Progress note Formatting of t [...] disease B12 level is very low. Please pickling drum operator clho-jsw-pvrwlsw B12 1000 mcg and take it every day. It is inexpensive and readily available at most grocery stores or [employer] stores. Diabetes is not well-controlled with a hemoglobin A1c of 7.9%. Remember to follow a diet low in saturated fat and we can adjust medications accordingly. Finally, vitamin D level is still low. Increase ergocalciferol to every other week. [facility] 03-03-2025 Progress note Formatting of t his note might be different from the original. Please let patient know that the nitrofurantoin that I prescribed for her bladder infection should be effective against the E. coli infection that she has. Please repeat urinalysis once antibiotic is complete to make certain that infection has resolved. [facility] 03-03-2025 Telephone encounter Note The following [...] Uncontrolled E11.65 Insulin: Yes Smiley Melo APRN.CNP [facility] 03-03-2025 Miscellaneous Notes The following approved [...] send to pharmacy documented in this encounter [facility] 03-03-2025 Telephone encounter Note MEDICARE now require name brand on rx. Please send to pharmacy [facility] 03-01-2025 Note Addended by: SMILEY MELO on: 03/01/2025 10:45 AM Modules accepted: Orders [facility] 03-01-2025 Miscellaneous Notes Addended by: SMILEY MELO on: 03/01/2025 10:45 AM Modules accepted: Orders Addended by: SMILEY MELO on: 03/01/2025 10:14 AM Modules accepted: Orders documented in this encounter [facility] 03-01-2025 Note Addended by: SMILEY MELO on: 03/01/2025 10:14 AM Modules accepted: Orders [facility] 03-01-2025 Instructions Smiley Melo APRN.CNP - 03/01/2025 10:05 AM EDT - Fill and start the azithromycin ( Z-Pavel ) prescription for your chest infection; it has been sent to [facility] [place] [facility]. - Fill and start the nitrofurantoin (Macrobid) prescription for your urinary tract infection; it has been sent to [facility] [place]. - Go to the lab today to have the blood work drawn as ordered. 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 documented in this encounter [facility] 03-01-2025 Note HNO ID: [id number] Author: SMILEY MELO APRN.CNP Service: ? Author [...] MD (Endocrinology) Estefania, Dylan Huffman DO as Building Operator (Gastroenterology) Nanci Huber APRN.CNP as Salesperson Jewelry (Family Medicine) Smiley Melo APRN.CNP as Salesperson Jewelry (Family Medicine) Concerns today: Cough, congestion and [...] disorder PAST SURGIC (more content not included)... [facility] 03-01-2025 History of Present illness Narrative [...] MD (Endocrinology) Estefania, Dylan Huffman DO as Building Operator (Gastroenterology) Nanci Huber APRN.ALUM PLANT OPERATOR as Salesperson Jewelry (Family Medicine) Smiley Melo APRN.ALUM PLANT OPERATOR as Salesperson Jewelry (Family Medicine) Concerns today: Cough, congestion and [...] Reported on 03/01/2025) 180 tablet 3 Insulin Keldron, Disposable, (BD ULTRA-FINE MINDY PEN NEEDLE) 32 [...] 300 mg by mouth once daily. Insulin Keldron, Disposable, 32 gauge x 5/16 ndle Use [...] glucose meter and test strips through [facility]. - Advised dietary management. - Scheduled for [...] Plans: 3 m documented in this encounter [facility] 02-15-2025 Note Patient Outreach (FA MPWS) ---- IVET VALERO ([id number]) 1955 F Date Time Provider Department 02/15/25 [...] Date Reviewed: 07/26/2024 Reviewed by: Smiley Melo APRN.ALUM PLANT OPERATOR - Fully Assessed Visit Diagnosis:Encounter for screening mammogram for breast cancer [Z12.31] Order(s):JANELL SCREENING Debora SUTHERLAND [[id number]] Order #: [id number] FUTURE Prescriptions as of 03/18/2025 - predniSONE [...] up to 38 units tid. - Insulin Keldron, Disposable, (Cogniscan ULTRA-FINE MINDY PEN NEEDLE) 32 gauge x [...] mg by mouth once daily. - Insulin Keldron, Disposable, 32 gauge x 5/16 ndle Use [...] Encounter Status:Closed by ANN-MARIE MARTINEZ on 03/18/25 [facility] 01-25-2025 Telephone encounter Note Patient requesting medication that is : promethazine (PHENERGAN) 25 mg suppository Patient last seen: 07-26-24 Future visit scheduled: yes PHARMACY: [place] [place] [facility] 01-25-2025 Miscellaneous Notes Patient requesting medication that is : promethazine (PHENERGAN) 25 mg suppository Patient last seen: 07-26-24 Future visit scheduled: yes PHARMACY: [place] [facility] documented in this encounter [facility] 01-03-2025 Note HNO ID: [id number] Author: LOU OSMAN MA Service: ? Author Type: Polo Coach Type: Progress Notes Filed: 01/03/2025 16:34 Note [...] Osman MA January 03, 2025 4:04 PM [facility] 01-03-2025 History of Present illness Narrative [...] 2025 4:04 PM documented in this encounter [facility] 01-03-2025 Note Patient Outreach (NE TNAV) ---- ANJUMIVET ([id number]) 1955 F Date Time Provider Department 01/03/25 [...] Date Reviewed: 07/26/2024 Reviewed by: Smiley Melo APRN.ALUM PLANT OPERATOR - Fully Assessed Reason for Visit: Population Health Navigation Outreach [3910] Cmt: LARY RIDDLE Primary Visit Diagnosis:Uncontrolled type 2 diabetes mellitus with hyperglycemia (HCC) [E11.65] Order(s):HEMOGLOBIN A1C [[id number]] Order #: [id number] FUTURE COMPLETE BLOOD COUNT AND DIFFERENTIAL [SQCBCDIF] Order #: [id number] FUTURE COMPREHENSIVE METABOLIC PANEL [SQCMP] Order #: [id number] FUTURE LIPID PANEL, FASTING [SQLIPB] Order #: [id number] FUTURE Prescriptions as of 01/03/2025 - insulin [...] mouth two times a day. - Insulin Keldron, Disposable, (BD ULTRA-FINE MINDY PEN NEEDLE) 32 [...] tablet by mouth once daily. - Insulin Keldron, Disposable, 32 gauge x 5/16 ndle Use [...] 02/29/2020 SOB (shortn (more content not included)... [facility] 12-28-2024 Telephone encounter Note Completed form faxed [facility] 12-28-2024 Miscellaneous Notes Completed form faxed Fax received. Type of form: Certificate of Medical Necessity Form received via fax When form is completed, Fax form to IS at [phone] Form has been forwarded to Physician: Dr Kelsey Yeung MA Ivet is a patient of MD geraldine Martines from [employer] called and stated she will be faxing the order form for incontinent supplies to [phone]. Please call with any questions. Patient has been identified by name and birthdate. Was an appointment scheduled: No Closing statement: Results or non-symptom based questions: Thank you for calling [facility], your call will be returned within the next business day. Joycelyn Vicente Pss documented in this encounter [facility] 12-27-2024 Telephone encounter Note Fax received. Type of form: Certificate of Medical Necessity Form received via fax When form is completed, Fax form to [employer] at [phone] Form has been forwarded to Physician: Dr Kelsey Yeung MA [facility] 12-24-2024 Telephone encounter Note The patient has [...] Quinonez RN December 24, 2024 4:14 PM [facility] 12-24-2024 Miscellaneous Notes The patient has been [...] 2024 4:14 PM documented in this encounter [facility] 12-23-2024 Telephone encounter Note Ivet is a patient of MD geraldine Martines from [employer] called and stated she will be faxing the order form for incontinent supplies to [phone]. Please call with any questions. Patient has been identified by name and birthdate. Was an appointment scheduled: No Closing statement: Results or non-symptom based questions: Thank you for calling [facility], your call will be returned within the next business day. Joycelyn Greer [facility] 11-10-2024 Telephone encounter Note Pt has been [...] has bronchitis. 6. :n/a Protocols used: Urinary Njfkvenf-GCBDM-XG, Urination Pain - Chdxyd-JZWWE-BY, Cough - Acute Yndwizkaln-OKMHU-CP [facility] 11-10-2024 Miscellaneous Notes Pt has been sick [...] has bronchitis. 6. :n/a Protocols used: Urinary Cbuccetb-ZQIID-NX, Urination Pain - Gjcllm-DBRBL-SB, Cough - Acute Slnjvdglqz-JWBHP-YH documented in this encounter [facility] 10-19-2024 Telephone encounter Note Prescription Refill Information [...] Mahsa Myers October 19, 2024 10:04 AM [facility] 10-19-2024 Miscellaneous Notes Prescription Refill Information The [...] 2024 10:04 AM documented in this encounter [facility] 10-05-2024 Telephone encounter Note Larissa Chacon report [...] Guillermo RN October 05, 2024 9:54 AM [facility] 10-05-2024 Miscellaneous Notes Larissa Chacon report that [...] 2024 9:54 AM documented in this encounter [facility] 09-22-2024 Telephone encounter Note Prescription Refill Information [...] Joycelyn Greer September 22, 2024 10:18 AM [facility] 09-22-2024 Miscellaneous Notes Prescription Refill Information The [...] 2024 10:18 AM documented in this encounter [facility] 07-29-2024 Note Addended by: SMILEY MELO on: 07/29/2024 09:53 AM Modules accepted: Orders [facility] 07-29-2024 Telephone encounter Note Order resent [facility] 07-29-2024 Miscellaneous Notes Addended by: SMILEY MELO on: 07/29/2024 09:53 AM Modules accepted: Orders Order resent [place] pharmacist from [facility] pharmacy calling in this morning to say [...] prescription got lost. documented in this encounter [facility] 07-29-2024 Telephone encounter Note [place] pharmacist from [facility] pharmacy calling in this morning to say [...] to [place] since previous prescription got lost. [facility] 07-26-2024 Telephone encounter Note Pharm [...] Flor LPN July 26, 2024 11:06 AM [facility] 07-26-2024 Miscellaneous Notes Pharm requesting [...] 2024 11:06 AM documented in this encounter [facility] 07-26-2024 Instructions Smiley Melo APRN.ALUM PLANT OPERATOR - 07/26/2024 10:03 AM EST 1) Bone density ordered 2) Lung cancer screening team to call you 3) Stool card 4) Consult [facility] for diabetes exam and cataracts 5) Nitrofurantoin [...] usual activities immediately. documented in this encounter [facility] 07-26-2024 Note HNO ID: [id number] Author: SMILEY MELO APRN.SINGH Service: ? Author [...] Pt. Has Hx of UTI frequently Migraine onrui-ooztp-ujn frontal and occipital. Has a workers comp [...] 6 hours as needed for nausea/vomiting. Insulin Keldron, Disposable, (BD ULTRA-FINE MINDY PEN NEEDLE) 32 gauge x 5/32 Use one needle for each dose, 4 times daily. (4mm) Lancets lancets Test blood sugar(s) 3-4 times daily. Dx: Type 2 DM-Controlled Insulin: Yes blood sugar diagnostic (BLOOD GLUCOSE TEST) test strip Test blood sugar(s) 3-4 times daily. Dx: Type 2 DM - Controlled E11.9 Insulin: Yes Insulin Keldron, Disposable, 32 gauge x 5/16 ndle Use [...] Types: Cigarettes Sm (more content not included)... [facility] 07-26-2024 History of Present illness Narrative [...] Pt. Has Hx of UTI frequently Migraine xtjrm-lxbti-bkr frontal and occipital. Has a workers comp [...] 6 hours as needed for nausea/vomiting. Insulin Keldron, Disposable, (Cogniscan ULTRA-FINE MINDY PEN NEEDLE) 32 gauge x 5/32 Use one needle for each dose, 4 times daily. (4mm) Lancets lancets Test blood sugar(s) 3-4 times daily. Dx: Type 2 DM-Controlled Insulin: Yes blood sugar diagnostic (BLOOD GLUCOSE TEST) test strip Test blood sugar(s) 3-4 times daily. Dx: Type 2 DM - Controlled E11.9 Insulin: Yes Insulin Keldron, Disposable, 32 gauge x 5/16 ndle Use [...] complication, without long-term current use of insulin ([facility]) - ICD9: 250.00, ICD10: E11.9 - Control [...] as needed for worsening/no improvement. Smiley Melo APRN.ALUM PLANT OPERATOR documented in this encounter [facility] 07-19-2024 Note HNO ID: [id number] Author: HERSON ASHFORD RN Service: ? Author Type: Registered Nurse Type: Progress Notes Filed: 07/19/2024 11:01 Note Text: [facility] Telephonic Outreach Provider Action/FYI Contacted for: Routine Telephonic Outreach Contact made with patient: No, unable to leave message. Will reattempt call Herson Ashford RN July 19, 2024 11:01 AM [facility] 07-19-2024 History of Present illness Narrative [facility] Telephonic Outreach Provider Action/FYI Contacted for: Routine Telephonic Outreach Contact made with patient: No, unable to leave message. Will reattempt call Herson Ashford RN July 19, 2024 11:01 AM documented in this encounter [facility] 07-19-2024 Note Patient Outreach (AM [facility]) ---- IVET VALERO ([id number]) 1955 F Date Time Provider Department 07/19/24 HERSON ASHFORD AMBG During your visit today, we recorded the following information about you: Herson Ashford RN 07/19/2024 11:01 AM Signed [facility] Telephonic Outreach Provider Action/FYI Contacted for: [...] mouth two times a day. - Insulin Keldron, Disposable, (BD ULTRA-FINE MINDY PEN NEEDLE) 32 [...] tablet by mouth once daily. - Insulin Keldron, Disposable, 32 gauge x 5/16 ndle Use [...] Encounter Status:Closed by HERSON ASHFORD on 07/19/24 [facility] 07-16-2024 Note HNO ID: [id number] Author: HERSON ASHFORD RN Service: ? Author Type: Registered Nurse Type: Progress Notes Filed: 07/16/2024 13:25 Note Text: [facility] Telephonic Outreach Provider Action/FYI Contacted for: Routine Telephonic Outreach Contact made with patient: No, unable to leave message. Will reattempt call Herson Ashford RN July 16, 2024 1:25 PM Phone rings-no voicemail set up [facility] 07-16-2024 History of Present illness Narrative [facility] Telephonic Outreach Provider Action/FYI Contacted for: Routine Telephonic Outreach Contact made with patient: No, unable to leave message. Will reattempt call Herson Ashford RN July 16, 2024 1:25 PM Phone rings-no voicemail set up documented in this encounter [facility] 07-16-2024 Note Patient Outreach (AM [facility]) ---- IVET VALERO ([id number]) 1955 F Date Time Provider Department 07/16/24 HERSON ASHFORD [facility] [place] During your visit today, we recorded the following information about you: Herson Ashford RN 07/16/2024 1:25 PM Signed [facility] Telephonic Outreach Provider Action/FYI Contacted for: [...] Date Reviewed: 04/29/2024 Reviewed by: Smiley Melo APRN.ALUM PLANT OPERATOR - Fully Assessed Reason for Visit: community [...] mouth two times a day. - Insulin Keldron, Disposable, (BD ULTRA-FINE MINDY PEN NEEDLE) 32 [...] tablet by mouth once daily. - Insulin Keldron, Disposable, 32 gauge x 5/16 ndle Use [...] Encounter Status:Closed by HERSON ASHFORD on 07/16/24 [facility] 07-14-2024 Note HNO ID: [id number] Author: HERSON ASHFORD RN Service: ? Author Type: Registered Nurse Type: Progress Notes Filed: 07/14/2024 13:00 Note Text: [facility] Telephonic Outreach Provider Action/FYI Contacted for: Routine Telephonic Outreach Contact made with patient: Yes Patient identified by name and date of . Discussed care with patient Are you experiencing any new or worsening symptoms you need to talk about today? No Based on asic design engineer, the following disposition is advised: No symptoms [...] Ashford RN July 14, 2024 12:54 PM [facility] 07-14-2024 History of Present illness Narrative [facility] Telephonic Outreach Provider Action/FYI Contacted for: Routine Telephonic Outreach Contact made with patient: Yes Patient identified by name and date of . Discussed care with patient Are you experiencing any new or worsening symptoms you need to talk about today? No Based on asic design engineer, the following disposition is advised: No symptoms [...] 2024 12:54 PM documented in this encounter [facility] 07-14-2024 Note Patient Outreach [place] [facility] IVET VALERO ([id number]) 1955 F Date Time Provider Department 07/14/24 [...] to talk about today? No Based on asic design engineer, the following disposition is advised: No symptoms [...] and his recent hospitalization. Listened with [facility], social work Will consider and we will [...] Date Reviewed: 04/29/2024 Reviewed by: Smiley Melo APRN.ALUM PLANT OPERATOR - Fully Assessed Reason for Visit: community [...] mouth two times a day. - Insulin Keldron, Disposable, (BD ULTRA-FINE MINDY PEN NEEDLE) 32 [...] tablet by mouth once daily. - Insulin Keldron, Disposable, 32 gauge x 5/16 ndle Use [...] Chronic cough [R0 (more content not included)... [facility] 06-16-2024 Note HNO ID: [id number] Author: HERSON ASHFORD RN Service: ? Author Type: Registered Nurse Type: Progress Notes Filed: 06/16/2024 09:05 Note Text: [facility] Telephonic Outreach Provider Action/FYI Contacted for: Routine Telephonic Outreach Contact made with patient: Yes Patient identified by name and date of . Discussed care with patient Are you experiencing any new or worsening symptoms you need to talk about today? Yes Based on asic design engineer, the following disposition is advised: No symptoms [...] Ashford RN June 16, 2024 9:00 AM [facility] 06-16-2024 History of Present illness Narrative [facility] Telephonic Outreach Provider Action/FYI Contacted for: Routine Telephonic Outreach Contact made with patient: Yes Patient identified by name and date of . Discussed care with patient Are you experiencing any new or worsening symptoms you need to talk about today? Yes Based on asic design engineer, the following disposition is advised: No symptoms [...] 2024 9:00 AM documented in this encounter [facility] 06-16-2024 Note Patient Outreach ([place] [facility] ---- IVET VALERO ([id number]) 1955 F Date Time Provider [facility] [place] [facility] your visit today, we recorded the following information about you: Herson Ashford RN 06/16/2024 9:05 AM Signed [facility] Telephonic Outreach Provider Action/FYI Contacted for: Routine Telephonic Outreach Contact made with patient: Yes Patient identified by name and date of . Discussed care with patient Are you experiencing any new or worsening symptoms you need to talk about today? Yes Based on asic design engineer, the following disposition is advised: No symptoms [...] Date Reviewed: 04/29/2024 Reviewed by: Smiley Melo APRN.ALUM PLANT OPERATOR - Fully Assessed Reason for Visit: community [...] mouth two times a day. - Insulin Keldron, Disposable, (BD ULTRA-FINE MINDY PEN NEEDLE) 32 [...] tablet by mouth once daily. - Insulin Keldron, Disposable, 32 gauge x 5/16 ndle Use [...] Rash [R21] 01/01/2021 (more content not included)... [facility] 06-10-2024 History of Present illness Narrative [facility] Telephonic Outreach Provider Action/FYI Contacted for: Routine Telephonic Outreach Contact made with patient: No, unable to leave message. Third attempt - patient is unable to be reached. Herson Ashford RN June 10, 2024 11:08 AM Phone rings-no voicemail set up documented in this encounter [facility] 06-09-2024 Telephone encounter Note Script was set to print so will fax to pharmacy. [facility] 06-09-2024 Miscellaneous Notes Script was set to [...] 2024 8:34 AM documented in this encounter [facility] 06-09-2024 Telephone encounter Note The patient has [...] Quinonez RN June 09, 2024 8:34 AM [facility] 06-08-2024 History of Present illness Narrative [facility] Telephonic Outreach Provider Action/FYI Contacted for: Routine Telephonic Outreach Contact made with patient: No, unable to leave message. Will reattempt call Herson Ashford RN June 08, 2024 10:14 AM No voicemail set up Urology follow up UTI's documented in this encounter [facility] 06-07-2024 History of Present illness Narrative [facility] Telephonic Outreach Provider Action/FYI Contacted for: Routine Telephonic Outreach Contact made with patient: No, unable to leave message. Will reattempt call Herson Ashford RN June 07, 2024 1:00 PM Phone rings- no voicemail Referral to Urology -persistent UTI-e coli documented in this encounter [facility] 05-13-2024 Telephone encounter Note Faxed order as requested. Marylu Yeung MA May 13, 2024 10:31 AM [facility] 05-13-2024 Miscellaneous Notes Faxed order as requested. Marylu Yeung MA May 13, 2024 10:31 AM Spoke with patient declined to travel to other sites, and declined a male provider requesting to have referral sent to Dr Meredith Oropeza office in [place]. Patient returned call and went over notes below from Thong Melo PEDIATRIC SOCIAL WORKER with understanding. Assisted with transfer to construction checker to get Urology appt set up. Pt notified of antibiotic and transferred to main line to schedule Please let patient know that I sent ciprofloxacin twice daily for 10 days. Please make sure that she takes all of it. Get her scheduled for urology soon as possible. We cannot seem to eradicate this E. Coli infection documented in this encounter [facility] 05-13-2024 Telephone encounter Note Spoke with patient declined to travel to other sites, and declined a male provider requesting to have referral sent to Dr Meredith Oropeza office in [place]. [facility] 05-13-2024 Telephone encounter Note Patient returned call and went over notes below from Thong Melo PEDIATRIC SOCIAL WORKER with understanding. Assisted with transfer to construction checker to get Urology appt set up. [facility] 05-13-2024 Telephone encounter Note Pt notified of antibiotic and transferred to main line to schedule [facility] 05-13-2024 Telephone encounter Note Please let patient know that I sent ciprofloxacin twice daily for 10 days. Please make sure that she takes all of it. Get her scheduled for urology soon as possible. We cannot seem to eradicate this E. Coli infection [facility] 05-11-2024 Telephone encounter Note Pt called and is notified of providers results and instructions. Pt voices understanding. Pt will call back in to schedule appointment as her phone was going to . Diane Guillermo, RN [facility] 05-11-2024 Miscellaneous Notes Pt called and is notified of providers results and instructions. Pt voices understanding. Pt will call back in to schedule appointment as her phone was going to . Diane Guillermo, RN Please let patient know that E. coli persists in her urine. I am going to refer her to urology. documented in this encounter [facility] 05-11-2024 Telephone encounter Note Please let patient know that E. coli persists in her urine. I am going to refer her to urology. [facility] 05-10-2024 Telephone encounter Note Megha with [employer] [place] [employer] calls to request refill on Toujeo. Requesting a 31 day supply of Toujeo. Pended per request. Last OV: 05/10/2024 Next OV: 06/11/2024 Sue Quinonez RN [facility] 05-10-2024 Miscellaneous Notes Megha with [employer] [place] calls to request refill on Toujeo. Requesting a 31 day supply of Toujeo. Pended per request. Last OV: 05/10/2024 Next OV: 06/11/2024 Sue Quinonez RN documented in this encounter [facility] 05-05-2024 History of Present illness Narrative [facility] Telephonic Outreach Provider Action/FYI Contacted for: Routine Telephonic Outreach Contact made with patient: Yes Patient identified by name and date of . Discussed care with patient Are you experiencing any new or worsening symptoms you need to talk about today? No Based on asic design engineer, the following disposition is advised: No symptoms [...] 2024 1:05 PM documented in this encounter [facility] 05-04-2024 History of Present illness Narrative [facility] Telephonic Outreach Provider Action/FYI Contacted for: Routine Telephonic Outreach Contact made with patient: No, unable to leave message. Will reattempt call Herson Ashford RN May 04, 2024 1:14 PM Phone rings-no voicemail set up documented in this encounter [facility] 05-03-2024 Telephone encounter Note Patient notified. [facility] 05-03-2024 Miscellaneous Notes Patient notified. Please let pt. Know that she has E coli infection UTI. Nitrofurantoin is effective to treat this infection. We should retest once antibiotic is complete. documented in this encounter [facility] 05-03-2024 Telephone encounter Note Please let pt. Know that she has E coli infection UTI. Nitrofurantoin is effective to treat this infection. We should retest once antibiotic is complete. [facility] 04-29-2024 Telephone encounter Note Order located on [place] desk that was signed by physician. Faxed to requested number. [phone] [facility] 04-29-2024 Miscellaneous Notes Order located on [place] desk that was signed by physician. Faxed to requested number. [phone] After hours can't find fax #. Phone [...] Pt states she has seen Nanci Huber PEDIATRIC SOCIAL WORKER 08/27/23 and Smiley Melo PEDIATRIC SOCIAL WORKER 03/23/24, she has a hard time getting in and has to have someone drive her d/t her cataracts. Please call Pt and let her know when the forms have been sent for these supplies. documented in this encounter [facility] 04-29-2024 Instructions Smiley Melo APRN.SINGH - 04/29/2024 2:48 PM EDT 1) Consult dermatology 2) [id number] company needs orders filled out of sheet that was faxed ? 3) Nitrofurantoin 2 x day 4) Increase carvedilol to 25 mg 2 x day- for blood pressure 5) Start topiramate 25 mg 2 x day 6) Repeat urine culture once antibiotic is finished 7) Follow up in 1 month documented in this encounter [facility] 04-29-2024 History of Present illness Narrative This [...] 6 hours as needed for nausea/vomiting. Insulin Keldron, Disposable, (BD ULTRA-FINE MINDY PEN NEEDLE) 32 [...] 1 tablet by mouth once daily. Insulin Keldron, Disposable, 32 gauge x 5/16 ndle Use [...] x day 6. Stress incontinence - ICD9: [id number], ICD10: N39.3 Needs more urinary supplies 7. [...] Smiley Melo APRN.SINGH documented in this encounter [facility] 04-23-2024 Telephone encounter Note After hours can't find fax #. Phone # [facility] 04-23-2024 Telephone encounter Note The patient has [...] Quinonez RN April 23, 2024 3:29 PM [facility] 04-23-2024 Miscellaneous Notes The patient has been [...] 2024 3:29 PM documented in this encounter [facility] 04-23-2024 Telephone encounter Note I am assuming she means a dme script. printed [facility] 04-22-2024 Telephone encounter Note Pt called in to get incontinence supplies ordered through [employer]. She states she has to have a letter filled out by the provider and sent to the company. Pt states she gets attends, 3 types of pads (2 that go inside the attends), chucks, and gloves. Pt states she has seen Nanci Huber PEDIATRIC SOCIAL WORKER 08/27/23 and Smilye Melo PEDIATRIC SOCIAL WORKER 03/23/24, she has a hard time getting in and has to have someone drive her d/t her cataracts. Please call Pt and let her know when the forms have been sent for these supplies. [facility] 04-20-2024 Telephone encounter Note Prescription Refill Information [...] Joyce Greer April 20, 2024 11:52 AM [facility] 04-20-2024 Miscellaneous Notes Prescription Refill Information The [...] 2024 11:52 AM documented in this encounter [facility] 04-12-2024 Telephone encounter Note The following approved medication requests have been transmitted electronically. Requested Prescriptions Pending Prescriptions Disp Refills insulin glargine U-300 conc (TOUJEO) 300 unit/mL (1.5 mL) 5 Each 0 Sig: Inject 80 Units subcutaneously every morning. E11.9 Smiley Melo APRN.CNP [facility] 04-12-2024 Miscellaneous Notes The following approved medication [...] 2024 2:18 PM documented in this encounter [facility] 04-12-2024 Telephone encounter Note The patient has [...] Willis RN April 12, 2024 2:18 PM [facility] 04-06-2024 History of Present illness Narrative [facility] Telephonic Outreach Provider Action/FYI Contacted for: Routine Telephonic Outreach Contact made with patient: No, unable to leave message. Will reattempt call Herson Ashford RN April 06, 2024 3:27 PM [facility] Telephonic Outreach Provider Action/FYI Contacted for: Routine Telephonic Outreach Contact made with patient: No, unable to leave message. Will reattempt call Herson Ashford RN April 06, 2024 12:49 PM No voicemail documented in this encounter [facility] 04-02-2024 History of Present illness Narrative [facility] Telephonic Outreach Provider Action/FYI Contacted for: Routine Telephonic Outreach Contact made with patient: Yes Patient identified by name and date of . Discussed care with patient Are you experiencing any new or worsening symptoms you need to talk about today? Yes Based on asic design engineer, the following disposition is advised: No symptoms [...] 2024 3:50 PM documented in this encounter [facility] 04-02-2024 Telephone encounter Note Prescription Refill Information [...] Joycelyn Greer April 02, 2024 9:36 AM [facility] 04-02-2024 Miscellaneous Notes Prescription Refill Information The [...] 2024 9:36 AM documented in this encounter [facility] 03-25-2024 Telephone encounter Note Patient notified. [facility] 03-25-2024 Miscellaneous Notes Patient notified. Urinary tract infection showed E. coli. The nitrofurantoin should be effective in eradicating this bacteria. We need to recheck a urine culture when she completes the antibiotic. documented in this encounter [facility] 03-25-2024 Telephone encounter Note Urinary tract infection showed E. coli. The nitrofurantoin should be effective in eradicating this bacteria. We need to recheck a urine culture when she completes the antibiotic. [facility] 03-24-2024 Telephone encounter Note The patient has [...] Willis RN March 24, 2024 1:54 PM [facility] 03-24-2024 Miscellaneous Notes The patient has been [...] 2024 1:54 PM documented in this encounter [facility] 03-23-2024 Instructions Smiley Melo APRN.CNP - 03/23/2024 1:11 PM EDT - PHENAZOPYRIDINE 200 MG TABLET 3 x day as needed for urinary discomfort - NITROFURANTOIN MONOHYDRATE & MACROCRYSTAL 100 MG ORAL CAP 2 x day for infection - Ketoconazole shampoo as a wash - ultrasound technologist on cool setting - Apply nystatin powder 2 x day - Use towel as a barrier under breasts - Needs APPT. For 2 weeks documented in this encounter [facility] 03-23-2024 History of Present illness Narrative This [...] 80 Units subcutaneously every morning. E11.9 Insulin Keldron, Disposable, (BD ULTRA-FINE MINDY PEN NEEDLE) 32 [...] 1 tablet by mouth once daily. Insulin Keldron, Disposable, 32 gauge x 5/16 ndle Use four times daily with insulin QUEtiapine XR (SEROQUEL XR) 300 mg 24 hr tablet Take 300 mg by mouth daily at bedtime. Blood Pressure Monitor 1 Each once daily. Blood Pressure Monitor NutriticsLARGE BLOOD PRESSURE CUFF MONITOR KIT checking bp [...] - Ketoconazole shampoo as a wash - ultrasound technologist on cool setting - Apply nystatin powder [...] Smiley Melo APRN.CNP documented in this encounter [facility] 03-22-2024 Telephone encounter Note Patient called for [...] vaginal discharge. Protocols used: Urination Pain - [id number] [facility] 03-22-2024 Miscellaneous Notes Patient called for urinary [...] vaginal discharge. Protocols used: Urination Pain - [id number] documented in this encounter [facility] 03-16-2024 Telephone encounter Note Prescription Refill Information [...] Laurel Terrazas March 16, 2024 2:49 PM [facility] 03-16-2024 Miscellaneous Notes Prescription Refill Information The [...] hours as needed for nausea/vomiting. Laurel [place]ado [facility] [place] 16, 2024 2:49 PM documented in this encounter [facility] 03-08-2024 Telephone encounter Note Patient has been identified by name and date of : Yes Patient phones for refill(s): Requested Prescriptions Pending Prescriptions Disp Refills insulin glargine U-300 conc (TOUJEO) 300 unit/mL (1.5 mL) 5 Each 5 Sig: Inject 80 Units subcutaneously every morning. E11.9 Insulin Keldron, Disposable, (BD ULTRA-FINE MINDY PEN NEEDLE) 32 gauge x 5/32 120 Each 11 Sig: Use one needle for each dose, 4 times daily. (4mm) Date of last office visit in primary care: 08/27/2023 Date of next office visit in primary care: Visit date not found Please advise. Thank you. Mirian Mckinnon. [facility] 03-08-2024 Miscellaneous Notes Patient has been identified by name and date of : Yes Patient phones for refill(s): Requested Prescriptions Pending Prescriptions Disp Refills insulin glargine U-300 conc (TOUJEO) 300 unit/mL (1.5 mL) 5 Each 5 Sig: Inject 80 Units subcutaneously every morning. E11.9 Insulin Keldron, Disposable, (BD ULTRA-FINE MINDY PEN NEEDLE) 32 gauge x 5/32 120 Each 11 Sig: Use one needle for each dose, 4 times daily. (4mm) Date of last office visit in primary care: 08/27/2023 Date of next office visit in primary care: Visit date not found Please advise. Thank you. Mirian Mckinnon. documented in this encounter [facility] 03-05-2024 History of Present illness Narrative [facility] Telephonic Outreach Provider Action/FYI No concerns Contacted for: Routine Telephonic Outreach Contact made with patient: Yes Patient identified by name and date of . Discussed care with patient Are you experiencing any new or worsening symptoms you need to talk about today? No Based on asic design engineer, the following disposition is advised: No symptoms or symptoms present, not severe. Routed to: No Action Needed PEGGY Education Provided this Outreach: No Herson Ashford RN March 05, 2024 4:30 PM documented in this encounter [facility] 02-20-2024 Telephone encounter Note Prescription Refill Information [...] Asmita Greer February 20, 2024 9:51 AM [facility] 02-20-2024 Miscellaneous Notes Prescription Refill Information The [...] 2024 9:51 AM documented in this encounter [facility] 02-05-2024 History of Present illness Narrative [facility] Telephonic Outreach Provider Action/FYI Phone rings -picks up -no voicemail Contacted for: Routine Telephonic Outreach Contact made with patient: No, unable to leave message. Third attempt - patient is unable to be reached. Herson Ashford RN February 05, 2024 1:04 PM documented in this encounter [facility] 02-05-2024 History of Present illness Narrative [facility] Telephonic Outreach Provider Action/FYI Phone rings- no voicemail Contacted for: Routine Telephonic Outreach Contact made with patient: No, unable to leave message. Will reattempt call Herson Ashford RN February 05, 2024 9:40 AM documented in this encounter [facility] 02-04-2024 Telephone encounter Note Prescription Refill Information [...] Willis RN February 04, 2024 10:27 AM [facility] 02-04-2024 Miscellaneous Notes Prescription Refill Information The [...] 2024 10:27 AM documented in this encounter [facility] 02-04-2024 History of Present illness Narrative [facility] Telephonic Outreach Provider Action/FYI Phone rings- no voicemail Contacted for: Routine Telephonic Outreach Contact made with patient: No, unable to leave message. Will reattempt call Herson Ashford RN February 04, 2024 3:26 PM documented in this encounter [facility] 01-30-2024 History of Present illness Narrative [facility] [...] working. 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 Advised to be seen at [facility] after family gets off work this [...] to talk about today? Yes Based on asic design engineer, the following disposition is advised: No symptoms or symptoms present, not severe. Routed to: No Action Needed PEGGY Education Provided this Outreach: No Herson Ashford RN January 30, 2024 11:45 AM documented in this encounter [facility] 01-05-2024 Telephone encounter Note Patient has been [...] found Please advise. Thank you. Tyra Greer. [facility] 01-05-2024 Miscellaneous Notes Patient has been identified [...] you. Tyra Greer. documented in this encounter [facility] 01-01-2024 History of Present illness Narrative [facility] Telephonic Outreach Provider Danielle/JAMARCUS Phone rings- picks up no voicemail set up Contacted for: Routine Telephonic Outreach Contact made with patient: No, unable to leave message. Will reattempt call Herson Ashford RN January 01, 2024 11:54 AM [facility] Telephonic Outreach Provider Danielle/JAMARCUS Reached patient's dtr- States her mother not available right now Requests call back tomorrow Contacted for: Routine Telephonic Outreach Contact made with patient: Yes Patient identified by name and date of . Discussed care with daughter documented in this encounter [facility] 12-29-2023 Telephone encounter Note Reason for Call: [...] 911. Patient said she will head to [place] when she can find a ride. Reason [...] (urination) AND [2] female Protocols used: Urinary Kdwrmybz-PUKLO-PX, Urination Pain - Pueegp-HKSGM-PK [facility] 12-29-2023 Miscellaneous Notes Reason for Call: Incontinence, [...] 911. Patient said she will head to [place] when she can find a ride. Reason [...] (urination) AND [2] female Protocols used: Urinary Vkffnknj-NWLBE-LN, Urination Pain - Kmmxnr-XKILA-JB documented in this encounter [facility] 12-11-2023 Miscellaneous Notes Patient has been identified [...] you. Kareen Lam. documented in this encounter [facility] 12-02-2023 History of Present illness Narrative CDM [...] if no phone. Patient has appointment with PEDIATRIC SOCIAL WORKER on Friday. Advised to discuss at visit [...] to talk about today? Yes Based on asic design engineer, the following disposition is advised: No symptoms or symptoms present, not severe. Routed to: No Action Needed PEGGY Education Provided this Outreach: No Herson Ashford RN December 02, 2023 10:20 AM documented in this encounter [facility] 11-25-2023 Miscellaneous Notes Patient has been identified [...] you. Laurel Terrazas. documented in this encounter [facility] 10-29-2023 History of Present illness Narrative [facility] Telephonic Outreach Provider Action/FYI Phone busy signal Contacted for: Routine Telephonic Outreach Contact made with patient: No, unable to leave message. Will reattempt call Herson Ashford RN October 29, 2023 5:11 PM [facility] Telephonic Outreach Provider Action/FYI Patient picks up phone. PCC acknowledged self and [facility] reason for call. Phone disconnected. Re attempted call. Phone rings - no voicemail set up Contacted for: Routine Telephonic Outreach Contact made with patient: No, unable to leave message. Will reattempt call Herson Ashford RN October 29, 2023 12:34 PM documented in this encounter [facility] 10-10-2023 Miscellaneous Notes Breo reordered. Patient has [...] Jo Ann Gonzalez. documented in this encounter [facility] 09-30-2023 History of Present illness Narrative [facility] Telephonic Outreach Provider Action/FYI Phone rings -picks up indicates no voicemail set up Contacted for: Routine Telephonic Outreach Contact made with patient: No, unable to leave message. Will reattempt call Herson Ashford RN September 30, 2023 3:33 PM [facility] Telephonic Outreach Provider Action/FYI Needs falls/adl update HTN/DM- AIC 7.9 Patient not home at time of call Unclear when she will return. Contacted for: Routine Telephonic Outreach Contact made with patient: Yes Patient identified by name and date of . Discussed care with spouse documented in this encounter [facility] 09-26-2023 Miscellaneous Notes Pharmacy verified in [facility] Patient has been identified by name and [...] advise. Joyce Greer documented in this encounter [facility] 09-04-2023 History of Present illness Narrative Radiology [...] 2023 1:07 PM documented in this encounter [facility] 08-08-2023 History of Present illness Narrative TRANSITION CARE MANAGEMENT (TCM) INITIAL CONTACT [employer] Outreach Provider Action/FYI: Needs a new glucometer and supplies. Please send to [facility] in [place] knows this will not be [...] might be hidden SUMMARY: -Pt discharged from [facility] on 08/06/23. -Admitted for: chills, urinary [...] and/or supplies for the patient, handoff to RN/DIRECTOR OF PRODUCT MANAGEMENT, or LIP Medical records from recent hospitalization: Placed for provider to review documented in this encounter [facility] 08-08-2023 Miscellaneous Notes Patient has been identified [...] you. Laurel Terrazas. documented in this encounter [facility] 08-06-2023 Discharge summary Note Date/Time August 06, 2023 1:14pm [facility] Medical Records Department [address] [place] [address] Discharge Summary 08/06/23 1314 MR#: [id number] Acct: [id number] Name: IVET VALERO Rep #:[id number] : 1955 68 From: Sho Yi DO PCP: Dr. Ricci Cole MD Status:ADM I N Location: [place] [address] Providers Date of Admission: 08/04/23 Date of [...] 68-year-[facility] of chills, urinary [...] Self Care Charges/Coding Visit Charges Inpatient E&M: 85286 Disch Hosp >30min 08/06/23 1326 <Electronically signed by Sho Yi DO> Cosigner Signature (if applicable): CC: Dr. Sho Yi DO; Dr. Ricci Cole MD~ Signed [facility] Work Phone: 1(316) 981-124812-12-2023 Progress note Author Sho Yi [facility] August 05, 2023 5:02pm Note Date/Time August 05, 2023 7:25am [facility] Medical Records Department [address] [place] [address] Progress Note - Hospitalist 08/05/23 0718 MR#: [id number] Acct: [id number] Name: IVET VALERO Rep #:[id number] : 1955 68 From: Sho Yi DO PCP: Dr. Ricci Cole MD Status:ADM I N Location: [place] [address] Reason for Visit Reason for Visit: Chills/Urinary burning/frequency Subjective Subjective Patient is a 68-year-old white female who presented the emergency department [facility] on 08/04/2023 complaining of chills, urinary burning, [...] Clarity Clear, Urine pH 5.0, Ur Specific Pickrell 1.020, Urine Protein 30 H, Urine Glucose [...] Std Deviation 45.5 H, RDW Coeff of Jnoa 13.4, Plt Count 327, MPV8.8, Immature Gran % (Auto) 0.500, Neut % (Auto) 70.3 H, Lymph % (Auto) 22.1, Beaufort % (Auto) 5.9, Eos % (Auto) 0.6, [...] % (Auto) 51.7, Lymph % (Auto) 39.3, Beaufort% (Auto) 7.0, Eos % (Auto) 1.2, Baso [...] short-term intubation Charges/Coding Visit Charges Inpatient E&M: 94210 Subs Hosp L2 08/05/23 1702 <Electronically signed by Sho Yi DO> Cosigner Signature (if applicable): CC: ~ Signed [facility] Work Phone: 1(314) 600-994012-11-2023 Discharge summary Author Audie Aaron [facility] August 04, 2023 4:37pm Note Date/Time August 04, 2023 1:08pm [facility] Medical Records Department [address] [place] [address] Emergency Department Summary 08/04/23 MR#: [id number] Acct: [id number] Name: IVET VALERO Rep #:[id number] : 1955 68 From: Audie Velazquez [...] Denies chest pain. Denies fever or chills. [facility] <MARY Henley - Last Filed: 08/04/23 15:41> [facility] Medical History (Updated 08/04/23 @ 15:16 by [...] (Auto) 70.3 H Lymph % (Auto) 22.1 Beaufort % (Auto) 5.9 Eos % (Auto) 0.6 [...] Clarity Clear Urine pH 5.0 Ur Specific Pickrell 1.020 Urine Protein 30 H Urine Glucose [...] Walker, DO - Last Filed: 08/04/23 15:35> [facility] Narrative Medical decision making narrative: Patient [...] (Auto) 70.3 H Lymph % (Auto) 22.1 Beaufort % (Auto) 5.9 Eos % (Auto) 0.6 [...] Clarity Clear Urine pH 5.0 Ur Specific Pickrell 1.020 Urine Protein 30 H Urine Glucose [...] your Primary Care Provider. Call [facility] ([phone]) or report to the closest Emergency Room. Call 911 if necessary. 08/04/23 1637 <Electronically signed by Audie Walker DO> Cosigner Signature (if applicable): 08/04/23 1541 <Electronically signed by Marylu Gillespie PA> CC: Dr. Ricci Cole MD ~ Signed [facility] Work Phone: 1(128) 356-582212-11-2023 History and physical note Author Leeanne Barron [facility] August 04, 2023 3:20pm Note Date/Time August 04, 2023 3:09pm [facility] Medical Records Department [address] [place] [address] H&P Exam - Hospitalist 08/04/23 1506 MR#: [id number] Acct: [id number] Name: IVET VALERO Rep #:[id number] : 1955 68 From: Leeanne Barron MD PCP: Dr. Ricci Cole MD Status:REG E R Location: ED HPI - General General Date of Admission: 08/04/23 Date of Service: 08/04/23 Chief Complaint: Chills, urinary burning and frequency HPI Narrative IVET VALERO, is a 68-year-old female history of COPD, GERD, hypertension, type 2 diabetes mellitus who presented to [facility] 08/04/2023 with 2 weeks of urinary [...] no other acute complaints at this time. [facility] Medical History (Updated 08/04/23 @ 15:16 by [...] Clarity Clear, Urine pH 5.0, Ur Specific Pickrell 1.020, Urine Protein 30 H, Urine Glucose [...] (Auto) 70.3 H, Lymph % (Auto) 22.1, Beaufort % (Auto) 5.9, Eos % (Auto) 0.6, [...] Diabetes mellitus type: type 2 Diabetes mellitus long term insulin use: with joint terminal attack controller use Diabetes mellitus complication status: with hyperglycemia Qualified Code(s): E11.65 - Type 2 diabetes mellitus with hyperglycemia; Z79.4 - retirement (current) use of insulin (7) GERD (gastroesophageal [...] documentation, 55Minutes Charges/Coding Visit Charges Inpatient E&M: 39227 Init Hosp L2 08/04/23 1520 <Electronically signed by Leeanne Barron MD> Cosigner Signature (if applicable): CC: Dr. Leeanne Barron MD; Dr. Ricci Cole MD~ Signed [facility] Work Phone: 1(106) 116-553712-11-2023 History and physical note Author Leeanne Barron [facility] August 04, 2023 3:20pm Note Date/Time August 04, 2023 3:09pm [facility] Medical Records Department [address] [place] [address] H&P Exam - Hospitalist 08/04/23 1506 MR#: [id number] Acct: [id number] Name: IVET VALERO Rep #:[id number] : 1955 68 From: Leeanne Barron MD PCP: Dr. Ricci Cole MD Status:REG E R Location: ED HPI - General General Date of Admission: 08/04/23 Date of Service: 08/04/23 Chief Complaint: Chills, urinary burning and frequency HPI Narrative IVET VALERO, is a 68-year-old female history of COPD, GERD, hypertension, type 2 diabetes mellitus who presented to [facility] 08/04/2023 with 2 weeks of urinary [...] no other acute complaints at this time. [facility] Medical History (Updated 08/04/23 @ 15:16 by [...] Clarity Clear, Urine pH 5.0, Ur Specific Pickrell 1.020, Urine Protein 30 H, Urine Glucose [...] (Auto) 70.3 H, Lymph % (Auto) 22.1, Beaufort % (Auto) 5.9, Eos % (Auto) 0.6, [...] Diabetes mellitus type: type 2 Diabetes mellitus long term insulin use: with joint terminal attack controller use Diabetes mellitus complication status: with hyperglycemia Qualified Code(s): E11.65 - Type 2 diabetes mellitus with hyperglycemia; Z79.4 - oysterman (current) use of insulin (7) GERD (gastroesophageal [...] documentation, 55Minutes Charges/Coding Visit Charges Inpatient E&M: 81614 Init Hosp L2 08/04/23 1520 <Electronically signed by Leeanne Barron MD> Cosigner Signature (if applicable): CC: Dr. Leeanne Barron MD; Dr. Ricci Cole MD~ Signed [facility] Work Phone: 1(741) 970-184212-04-2023 History of Present illness Narrative* Herson Ashford RN - 07/28/2023 2:15 PM EST CDM Telephonic Outreach Provider Action/FYI Contacted for: Routine Telephonic Outreach Contact made with patient: No, unable to leave message. Will reattempt call Herson Ashford RN July 28, 2023 2:18 PM [facility] History of Present illness Narrative* Herson Ashford RN - 07/23/2023 3:39 PM EST [facility] Telephonic Outreach Provider Action/FYI Phone rings-no voicemail Contacted for: Routine Telephonic Outreach Contact made with patient: No, unable to leave message. Will reattempt call Herson Ashford RN July 24, 2023 4:28 PM documented in this encounterAs[facility]11-27-2023 Miscellaneous Notes* Telephone Encounter - Tiffanie Fan [...] notify patient. Liseth Greer documented in this encounterAshtabula [facility]11-20-2023 Miscellaneous Notes* Telephone Encounter - Joycelyn Esparza [...] patient. Joycelyn Doyleing Pss documented in this encounterAshtabula [facility] Center11-15-2023 History of Present illness Narrative* Sophia Fan APRN.ALUM PLANT OPERATOR - 07/09/2023 1:47 PM EST CC: Patient [...] Penicillins, and Sulfa (Sulfonamide Antibiotics) MEDICATIONS Insulin Keldron, Disposable, (BD ULTRA-FINE MINDY PEN NEEDLE) 32 [...] 1 tablet by mouth once daily. Insulin Keldron, Disposable, 32 gauge x 5/16 ndle Use [...] self. Sophia Fan APRN.CNP documented in this encounterAshtabula [facility] Center11-07-2023 Miscellaneous Notes* Telephone Encounter - Nanci Huber APRN.CNP - 07/01/2023 10:58 AM EST Script sent. Nanci Huber APRN.CNP * Telephone Encounter - Mirian Mckinnon - 07/01/2023 10:01 AM EST Patient calling for a refill on the 4 mm pen needles (not on refill list). [facility]. documented in this encounterAs[facility]10-20-2023 History of Present illness Narrative* Herson Ashford RN - 06/13/2023 8:45 AM EDT CDM Telephonic Outreach Provider Action/FYI Reached friend. Reports Ivet not home at time of call Contacted for: Routine Telephonic Outreach Contact made with patient: Yes Patient identified by name and date of . Discussed care with friend documented in this encounterCleveland [id number] Miscellaneous Notes* Telephone Encounter - Kash Ledesma [...] notify patient. Tyra Greer documented in this encounterAshtabula [facility] Center10-09-2023 History of Present illness Narrative* Lou Osman [...] 02, 2023 9:16 AM documented in this encounterAshtabula [facility] Center09-19-2023 History of Present illness Narrative* Herson Ashford RN - 05/13/2023 9:39 AM EDT CDM Telephonic Outreach Provider Action/FYI Unable to leave message Voicemail not set up Contacted for: Routine Telephonic Outreach Contact made with patient: No, unable to leave message. Will reattempt call Herson Ashford RN May 14, 2023 3:08 PM documented in this encounterAshtabula [facility] Center09-13-2023 Telephone encounter Note * Telephone Encounter - Adali Aguero - 05/07/2023 10:26 AM EDT JOANNA:04-15- No appt made. [facility]09-13-[facility]23 Miscellaneous Notes* Telephone Encounter - Adali Aguero [...] notify patient. Liseth Greer documented in this encounterAshtabula [facility] Center09-13-2023 Telephone encounter Note * Telephone Encounter - [...] need to notify patient. Liseth Bell Pss [facility]09-12-2023 Miscellaneous Notes* Telephone Encounter - Marylu Yeung [...] completed and faxed back) to please call: [phone] and find outwhat the problem is. Pt reports this has been going on since 04/16/23. Madelaine Frazier LPN documented in this encounterAshtabula County Medical Center08-31-2023 Miscellaneous Notes* Telephone Encounter - Jaycee Cohn LPN - 04/24/2023 12:47 PM EDT Forms are completed and faxed back as requested. * Telephone Encounter - Kash Ledesma LPN - 04/23/2023 3:15 PM EDT Type of form: DWO Form received via fax When form is completed, Fax form to [phone] Form has been forwarded to Physician Mailbox: Dr. Kelsey Ledesma LPN documented in this encounterAshtabula County Medical Center08-30-2023 Miscellaneous Notes* Telephone Encounter - Jaycee Cohn [...] being faxed back. Fax corrected forms to [phone] per patient request. Sue Quinonez RN documented in this encounterAshtabula County Medical Center08-25-2023 Miscellaneous Notes* Telephone Encounter - Kash Ledesma [...] stable. Urine protein is normal. Nanci Huber APRN.ALUM PLANT OPERATOR The 10-year ASCVD risk score (Aiden PHELPS, et al., 2019) is: 29.9% Values used to calculate the score: Age: 68 years Sex: Female Is Non- : No Diabetic: Yes Tobacco smoker: Yes Systolic Blood Pressure: 138 mmHg Is BP treated: Yes HDL Cholesterol: 67 mg/dL Total Cholesterol: 234 mg/dL documented in this encounterAshtabula County Medical Center08-23-2023 Miscellaneous Notes* Telephone Encounter - Jaycee Cohn LPN - 04/16/2023 12:10 PM EDT Completed and faxed. * Telephone Encounter - Kash Ledesma LPN - 04/16/2023 11:49 AM EDT Type of form: Medical Necessity Form received via fax When form is completed, Fax form to [phone] Form has been forwarded to Physician Mailbox: Dr. Kelsey Ledesma LPN documented in this encounterAshtabula County Medical Center08-23-2023 Miscellaneous Notes* Telephone Encounter - Ricci Cole MD - 04/16/2023 8:57 AM EDT Patient seen yesterday. Needs forms completed for urinary incontinence supplies. Has long standing issues for mixed incontinence. Reviewed urology notes. Would benefit from their use. documented in this encounterAshtabula County Medical Center08-22-2023 Instructions* Patient Instructions* Nanci Huber APRN.CNP - [...] your usual activities immediately. documented in this encounterAshtabula County Medical Center08-22-2023 History of Present illness Narrative* Nanci Huber [...] 1 tablet by mouth once daily. Insulin Keldron, Disposable, 32 gauge x 5/16 ndle Use [...] azelastine (ASTELIN) 0.1% nasal spray Use 1 [facility] in each nostril twice daily. carvedilol (COREG) [...] up for mammogram, yearly mammogram recommended - [facility] SCREENING 13. Asymptomatic postmenopausal status - ICD9: [...] which included preparing to see the patient, [id number]-[id number]-[id number] patient care, completing clinical documentation, obtaining and/or reviewing separately obtained history, performing a medically appropriate examination, counseling and educating the pat ient/family/caregiver, and ordering medications, tests, or procedures. documented in this encounterAshtabula County Medical Center08-17-2023 History of Present illness Narrative* Herson Ashford RN - 04/10/2023 10:06 AM EDT [facility] Telephonic Outreach Provider Action/FYI Strongly encouraged [...] of breath with activity? No Based on asic design engineer, the following disposition is advised: No symptoms or symptoms present, not severe. Routed to: No Action Needed PEGGY Education Provided this Outreach: No Herson Ashford RN April 10, 2023 3:55 PM documented in this encounterAshtabula County Medical Center08-16-2023 Miscellaneous Notes* Telephone Encounter - Tawana Heaton [...] appt. Kash Ledesma LPN documented in this encounterAshtabula County Medical Center08-14-2023 Miscellaneous Notes* Telephone Encounter - Rena Mccarthy [...] you. Mariia White, RN documented in this encounterAshtabula County Medical Center08-14-2023 Miscellaneous Notes* Telephone Encounter - Diane Guillermo [...] below. Pt states she was told by [facility] that pcp denied the help pt was [...] should be getting a form faxed from [employer] for hygiene products. She states it's to help pay for her pads. Please call and notify Pt once it has been filled out and faxed back. documented in this encounterAshtabula County Medical Center08-11-2023 Miscellaneous Notes* Telephone Encounter - Jaycee Cohn [...] When form is completed, Fax form to [phone] Form has been forwarded to Physician Mailbox: Dr. Kelsey Ledesma LPN documented in this encounterAshtabula County Medical Center07-31-2023 Miscellaneous Notes* Telephone Encounter - Kash Ledesma LPN - 03/24/2023 11:29 AM EDT JOANNA 01/29/22 *Multiple appt cancellations since. NOV 04/01/23 * Telephone Encounter - Trimble Joycelyn Greer - 03/24/2023 11:20 AM EDT [...] notify patient. Joycelyn Greer documented in this encounterAshtabula County Medical Center07-20-2023 History of Present illness Narrative* Lynn Pickering LSW - 03/13/2023 1:05 PM EDT PCSW Progress Note - Value Based Care Provider Action / FYI PCP Action No action required Date of Service: 03/13/2023 Ivet Valero [id number] [facility] [id number] Patient identified by name/: Yes- via Telephone [...] as follows After much encouragement- agreed to family welfare social work professor referral to assist with transportation assistance. Multiple missed/cancelled medical appts. Per chart review, Pt listed as having Medicare primary and Medicaid QMB sec as verified per [facility] [place] website - Q[place] benefits do not cover transportation PCSW collaborated with [facility] family welfare social work professor Larissa Younger regarding transportation resources who relates unfortunately, transportation services are somewhat limited in the [facility] area. Provided /directed to [employer] Maral Kelley [phone] for assessment and determination of possible transportation services for folks in [facility]. States requires in person registration. Or [place] Transportation likely private pay if not covered under waiver. Also provided with [facility] [employer] program, local [employer] organization that sometimes helps community members in need. Other resource may be [employer] that provides transportation. PCSW called/ spoke with [employer] -- informed cost is $2.80 per mile. with some limitations as to time and service area. PCSW called /spoke with pt. [phone]. PCSW introduced self and role as providing telephonic outreach and resource support. PCSW consult requested per Ms Herson Ashford RN, [facility] CDM. PCSW reviewed, discussed above possible transportation resources. Pt relates she is not interested in using a [employer] service van for transportation. Pt relates she [...] hung up. Interventions: Advocacy Assessment Discharge from [facility] panel Education Stakeholder collaboration with Larissa Younger [facility] Herosn Ashford RN, [facility] BONIFACIO Herrera March 13, 2023 1:08 PM documented in this encounterAshtabula [facility] Center07-18-2023 History of Present illness Narrative* Herson Ashford RN - 03/11/2023 4:10 PM EDT CDM Telephonic Outreach Provider Action/FYI No voicemail set up Contacted for: Routine Telephonic Outreach Contact made with patient: No, unable to leave message. Will reattempt call Herson Ashford RN March 11, 2023 4:12 PM documented in this encounterAshtabula County Medical Center07-03-2023 Miscellaneous Notes* Telephone Encounter - Laurel Candida [facility] - 02/24/2023 4:33 PM EDT Ivet Valero is calling Ricci Cole MD today to request a RX for medication not on currentmed list: Nystatin topical powder HALFWAY [id number] units per gram Please send to [facility] Patient has been identified by name and birthdate. Duration of symptoms: N/A Person calling: self Call patient at: at home [phone] (home) Was an appointment scheduled: No Closing statement: Results or non-symptom based questions: Thank you for calling [facility], your call will be returned within the next business day. Laurel [facility]ado [facility] documented in this encounterAshtabula County [facility] Center06-26-2023 Miscellaneous Notes* Telephone Encounter - Liseth Bell [...] patient. Liseth Bell Pss documented in this encounterAshtabula County Medical Center06-12-2023 Miscellaneous Notes* Telephone Encounter - Maribel Humphreys LPN - 02/03/2023 9:39 AM EDT not needed rx has refills documented in this encounterAshtabula County Medical Center06-01-2023 Miscellaneous Notes* Addendum Note - Ricci Cole MD - 01/23/2023 8:08 AM EDTAddended by: RICCI COLE on: 01/23/2023 08:08 AM Modules accepted: Orders * Telephone Encounter - Bridgett Mendoza LPN - 01/23/2023 8:04 AM EDT Spoke with pt and message below given. Pt verbalizes understanding. Pt reports she is not refusing but has no transportation at this time and her daughter is in [place] going thru life threatening surgery. Pt has [...] and advise. Mirian Mckinnon documented in this encounterAshtabula County Medical Center05-23-2023 History of Present illness Narrative* Lou Osman [...] 14, 2023 8:53 AM documented in this encounterAshtabula County Medical Center05-10-2023 Miscellaneous Notes* Telephone Encounter - Bridgett Mendoza [...] advise. Dinah Ochoa Pss documented in this encounterAshtabula County Medical Center04-14-2023 History of Present illness Narrative* Herson Ashford RN - 12/06/2022 10:48 AM EDT CDM Telephonic Outreach Provider Action/FYI Phone rings- no voicemail set up Contacted for: Routine Telephonic Outreach Contact made with patient: No, unable to leave message. Will reattempt call Herson Ashford RN December 09, 2022 2:26 PM documented in this encounterAshtabula [facility]04-03-2023 Miscellaneous Notes* Telephone Encounter - Liseth Nunez [...] notify patient. Kareen Lam documented in this encounterAshtabula County Medical Center03-20-2023 History of Present illness Narrative* Herson Ashford [...] Outreach - End Outreach documented in this encounterAshtabula County Medical Center03-16-2023 Miscellaneous Notes* Telephone Encounter - Swathi Jon [...] patient. Tyra Kelly Pss documented in this encounterAshtabula County Medical Center02-13-2023 History of Present illness Narrative* Herson Ashford [...] Outreach - End Outreach documented in this encounterAshtabula County Medical Center01-12-2023 History of Present illness Narrative* Herson Ashford [...] stable no further interventions documented in this encounterAshtabula County Medical Center01-11-2023 History of Present illness Narrative* Brittany Sam MD - 09/04/2022 1:21 PM EST Virtualist Distance Health Note (CDM/TCM//[facility] HC/H@[facility] escalations) Ivet Valero has consented to this telephone encounter. Persons Present: patient Triage source: Chronic Disease Management Contacted by phone, [employer], [employer], [email or web address], [employer], other: phone History of present illness: Ill [...] in as Primary Virtualist, Secondary Virtualist, or [facility] Telehealth provider: Primary SIGNATURE: Brittany Sam MD PATIENT NAME: Ivet Valero DATE: September 04, 2022 documented in this encounterAshtabula County Medical Center01-10-2023 History of Present illness Narrative* Herson Ashford [...] and patient's preferred method of contact (telephone, [employer], [employer]), your name, your contact number. [...] the patient. END OUTREACH documented in this encounterAshtabula County Medical Center12-19-2022 Miscellaneous Notes* Telephone Encounter - Liseth Bell [...] patient. Liseth Bell Pss documented in this encounterAshtabula County Medical Center12-07-2022 Miscellaneous Notes* Telephone Encounter - Bridgett Mendoza [...] you. Bridgett Mendoza LPN documented in this encounterAshtabula County Medical Center12-06-2022 History of Present illness Narrative* Herson Ashford [...] Outreach - End Outreach documented in this encounterAshtabula County Medical Center11-30-2022 Miscellaneous Notes* Telephone Encounter - Kimberly Vazquez [...] Thank you. Kimberly Vazquez documented in this encounterAshtabula County Medical Center11-17-2022 Miscellaneous Notes* Telephone Encounter - Jaky Greer [...] and advise. Jaky Greer documented in this encounterAshtabula County Medical Center11-03-2022 Miscellaneous Notes* Telephone Encounter - Leann Greer [...] and advise. Leann Greer documented in this encounterAshtabula County Medical Center11-01-2022 Miscellaneous Notes* Telephone Encounter - Renetta Coles - 06/25/2022 4:44 PM EDT Noted. Renetta Coles * Telephone Encounter - Laurel Karimisec - 06/25/2022 4:38 PM EDT Ivet Valero is calling Ricci Cole MD today to advise provider has had the [facility]oscopy [facility] by Dr. Mac. Patient saw Meredith Rodriguez in Urology yesterday. She still is going to do the CT scan and MRI at [facility]. Patient has been identified by name and birthdate. Duration of symptoms: N/A Person calling: self Call patient at: at home [phone] (home) Was an appointment scheduled: No Closing statement: Results or non-symptom based questions: Thank you for calling [facility], your call will be returned within the next business day. Laurel Tirado [employer] documented in this encounterAshtabula County Medical Center11-01-2022 Miscellaneous Notes* Telephone Encounter - Laurel [facility] - 06/25/2022 4:34 PM EDT Patient has been identified by name and date of : Yes Requested Prescriptions Pending Prescriptions Disp Refills promethazine (PHENERGAN) 25 mg tablet 30 tablet 2 Sig: Take 1 tablet by mouth every 6 hours as needed. RX INSTRUCTIONS: PATIENT IS ASKING FOR THE TABLETS PLEASE Patient aware RX will be sent to pharmacy. No need to notify patient. [facility] documented in this encounterAshtabula County Medical Center10-31-2022 Miscellaneous Notes* Telephone Encounter - Jaycee Cohn [...] notify patient. Kareen Lam documented in this encounterAshtabula County Medical Center10-26-2022 History of Present illness Narrative* Sho Hebert [...] go there. Suggested [facility] in [place], or new free standing ER in [place]. Patient states she will go if symptoms [...] like to speak with a social work steamer tender to help give you support for any [...] you up for automated weekly questionnaires through [employer]. This is an easy way for us [...] PtOutreach and End outreach. documented in this encounterAshtabula County Medical Center10-12-2022 History of Present illness Narrative* Sho Hebert RN - 06/05/2022 11:48 AM EDT INSIGHT CDM TELEPHONIC OUTREACH Provider Action/FYI: Contact made with patient: No - Unable to leave message Entered next patient outreach date for the following business day, if third call please enter next outreach date for one week in the Track Pt. Outreach - End Outreach documented in this encounterAshtabula County Medical Center10-04-2022 Miscellaneous Notes* Telephone Encounter - Joyce Greer - 05/28/2022 11:20 AM EDT Pharmacy verified in [facility] Patient has been identified by name and [...] nystatin cream as well. documented in this encounterAshtabula County Medical Center09-12-2022 History of Present illness Narrative* Jaycee Hammjose r RUDOLPH - 05/06/2022 5:14 PM EDT TRANSITION CARE MANAGEMENT (TCM) INITIAL CONTACT [employer] Outreach Provider Action/FYI: Patient states that is doing ok just still a little banged up from her fall. Initial contact with patient post discharge, spoke to patient. Patient identified by name and . TRANSITION CARE MANAGEMENT INITIAL OUTREACH DOCUMENTATION: No flowsheet data found. SUMMARY: -Pt discharged from [facility] on 05/03/22. -Admitted for: debility with [...] for provider to review documented in this encounterAshtabula County Medical Center09-09-2022 Miscellaneous Notes* Telephone Encounter - Kash Ledesma LPN - 05/03/2022 12:25 PM EDT TC to Dania, left detailed message on secure identified voicemail. Kash Ledesma LPN * Telephone Encounter - Ricci Cole MD - 05/03/2022 11:42 AM EDT ok * Telephone Encounter - Diane Guillermo RN - 05/03/2022 11:36 AM EDT Dania with [facility] HH called in and reports Pt will be discharged from [facility] today. Dr Wade will follow Pts IV orders. She is asking if provider will follow HH orders for PT/OT/Mcc. She states they hope to start tomorrow. Please call Dania back. She report a message can be left on phone line as it is confidential. documented in this encounterAshtabula County Medical Center09-07-2022 History of Present illness Narrative* Sho Hebert RN - 05/01/2022 10:06 AM EDT INSIGHT CDM TELEPHONIC OUTREACH Provider Action/FYI: Spoke to patients spouse Vern, who is involved in patients care, states patient is currently admitted to [facility]. This nurse to follow up in [...] Pt Outreach. End outreach documented in this encounterAshtabula County Medical Center09-06-2022 History of Present illness Narrative* Sho Hebert RN - 04/30/2022 11:36 AM EDT INSIGHT CDM TELEPHONIC OUTREACH Provider Action/FYI: Contact made with patient: No - Unable to leave message Entered next patient outreach date for the following business day, if third call please enter next outreach date for one week in the Track Pt. Outreach - End Outreach documented in this encounterAshtabula County Medical Center08-29-2022 Miscellaneous Notes* Telephone Encounter - Kash Ledesma [...] notify patient. Kareen Lam documented in this encounterAshtabula County Medical Center08-23-2022 History of Present illness Narrative* Sho Hebert RN - 04/16/2022 11:53 AM EDT [facility] TELEPHONIC OUTREACH Provider Action/FYI: Contact made with patient: No - Unable to leave message - End Outreach documented in this encounterAshtabula County Medical Center08-22-2022 History of Present illness Narrative* Sho Hebert RN - 04/15/2022 10:32 AM EDT [facility] TELEPHONIC OUTREACH Provider Action/FYI: Contact made [...] Pt Outreach. End outreach documented in this encounterAshtabula County Medical Center08-03-2022 Miscellaneous Notes* Telephone Encounter - Joyce Greer - 03/27/2022 9:49 AM EDT Pharmacy verified in [facility] Patient has been identified by name and [...] Please advise. Joyce Greer documented in this encounterAshtabula County Medical Center08-02-2022 Miscellaneous Notes* Telephone Encounter - Kash Ledesma [...] patient. Tyra Mendoza Pss documented in this encounterAshtabula County Medical Center07-25-2022 History of Present illness Narrative* Sho Hebert [...] like to speak with a social work steamer tender to help give you support for any [...] you up for automated weekly questionnaires through [employer]. This is an easy way for us [...] PtOutreach and End outreach. documented in this encounterAshtabula County Medical Center06-27-2022 History of Present illness Narrative* Sho Hebert RN - 02/18/2022 12:43 PM EDT [facility] TELEPHONIC OUTREACH Provider Action/FYI: Contact made with patient: No - Unable to leave message - End Outreach documented in this encounterAshtabula County Medical Center06-24-2022 History of Present illness Narrative* Sho Hebert RN - 02/15/2022 12:43 PM EDT [facility] TELEPHONIC OUTREACH Provider Action/FYI: Contact made with patient: No - Unable to leave message Entered next patient outreach date for the following day, if third call please enter next outreach date for one week in the Track Pt. Outreach - End Outreach documented in this encounterAshtabula County Medical Center06-20-2022 Miscellaneous Notes* Telephone Encounter - Sho Bermeo [...] notify patient. Laurel Karimise documented in this encounterAshtabula County Medical Center06-10-2022 Miscellaneous Notes* Telephone Encounter - Sue Quinonez [...] you. Sue Quinonez RN documented in this encounterAshtabula County Medical Center06-09-2022 History of Present illness Narrative* Sho Hebert RN - 01/31/2022 1:10 PM EDT [facility] TELEPHONIC OUTREACH Provider Action/FYI: Contact made with patient: No - Unable to leave message -End Outreach documented in this encounterAshtabula County Medical Center06-07-2022 History of Present illness Narrative* Yasmany Holland PA-C - 01/29/2022 11:10 AM EDT 66 year old female with c/o Hospital discharge follow-up Facility: [facility] Date of admission 01/17/2022 Date of [...] has appt with Dr. Arteaga Friend Currently: Malone good for a couple day after discharge [...] azelastine (ASTELIN) 0.1% nasal spray Use 1 Providence in each nostril twice daily. 6 mL [...] 38 units tid. 8 Pen 0 Insulin Keldron, Disposable, 32 gauge x 5/16 ndle Use [...] review. Yasmany Holland PA-C documented in this encounterAshtabula County Medical Center06-01-2022 History of Present illness Narrative* Jaycee Cohn LPN - 01/23/2022 3:32 PM EDT TRANSITION CARE MANAGEMENT (TCM) INITIAL CONTACT [employer] Outreach Provider Action/FYI: States that is just feeling tired. Initial contact with patient post discharge, spoke to patient. Patient identified by name and . TRANSITION CARE MANAGEMENT INITIAL OUTREACH DOCUMENTATION: No flowsheet data found. SUMMARY: -Pt discharged from [facility] on 01/22/22. -Admitted for: UTI d/t [...] for provider to review documented in this encounterAshtabula County Medical Center05-31-2022 History of Present illness Narrative* Sho Hebert RN - 01/22/2022 11:26 AM EDT [facility] TELEPHONIC OUTREACH Provider Action/FYI: Patients spouse Vern, who is involved in patients care, answered the phone, states patient is currently admitted at [facility]. Will follow up in 1 week., [...] Pt Outreach. End outreach documented in this encounterAshtabula County Medical Center05-31-2022 Miscellaneous Notes* Telephone Encounter - Savana Greer [...] notify patient. Savana Greer documented in this encounterAshtabula County Medical Center05-16-2022 History of Present illness Narrative* Sho Hebert RN - 01/07/2022 3:42 PM EDT [facility] TELEPHONIC OUTREACH Provider Action/FYI: Pt reports [...] like to speak with a social work steamer tender to help give you support for any [...] you up for automated weekly questionnaires through [employer]. This is an easy way for us [...] PtOutreach and End outreach. documented in this encounterAshtabula County Medical Center05-16-2022 Miscellaneous Notes* Telephone Encounter - Swathi Jon [...] if urine culture done last week at [facility] ER is done and get results.? documented in this encounterAshtabula County Medical Center05-14-2022 History of Present illness Narrative* Ricci Cole MD - 01/05/2022 10:11 AM EDT Patient presents with: ED Follow-up HPI: Patient presents today for office visit for ER follow up. I have not seen the patient since 2019. Difficult history. Large number of complaints. See below. Was recently seen at [facility]. Had urine culture, not complete yet. Showing several organisms. One is >100,000 colonies of gramnegative colonies, lactose grip wrapper. ID pending. She was given zofran and [...] new dizziness. 6. COPD Sees Pulmonary at [facility]. 7. Leukocytosis: has seen Dr. Salazar in 2018 for her chronic polycythemia and leukocytosis. Has been high for years. Dr. Salazar felt it was due to her smoking and copd. 8. Has [address] Dr[address] Spicer for chronic gi issues in the past. Had egd in the past at [facility]. Did have a gastric emptying study done. [...] Lymph 1.00 - 4.00 k/uL 4.27 (H) Beaufort% % 5.5 Abs Beaufort <0.87 k/uL 0.99 (H) Eosin% % 0.7 [...] Negative Ketones, Urine Negative 1+ (A) Specific [place], Ur 1.005 - 1.030 1.021 Hemoglobin/Blood,Ur Negative [...] recently on doxycycline for bronchitis from her human resources hr representative. She does not have a cough or [...] azelastine (ASTELIN) 0.1% nasal spray Use 1 Providence in each nostril twice daily. scopolamine (TRANSDERM-SCOP) [...] scale up to 38 units tid. Insulin Keldron, Disposable, 32 gauge x 5/16 ndle Use [...] uti related. Wait on final culture at [facility] - CONSULT TO UROLOGY 4. History of [...] eight weeks and prn. documented in this encounterAshtabula County Medical Center05-12-2022 Miscellaneous Notes* Telephone Encounter - Jaycee Cohn [...] or my walk in. documented in this encounterAshtabula County Medical Center05-11-2022 Miscellaneous Notes* Telephone Encounter - Kash Ledesma [...] voicemail. Marylu Yeung Ma documented in this encounterAshtabula County Medical Center05-09-2022 History of Present illness Narrative* Padmini Moura MD - 12/31/2021 10:04 AM EDT Virtualist Distance Health Note (for [employer] community monitoring and [facility] HC escalations) Adult seen for Monitoring Track: Chronic Disease Management Contacted by phone, [employer], [employer], [employer], [email or web address], [employer], [employer], other: phone called at 10:08 am called at 10:42 am History of present illness: 66 yo F symptom onset for [address] Holland at [facility], told had a UTI, bronchitis on Macrobid 12/20/21-12/27/21 on 12/18 seen in office labs from [facility] show elevated WBC, UA +, urine culture [...] DATE: December 31, 2021 documented in this encounterAshtabula County Medical Center04-28-2022 Miscellaneous Notes* Telephone Encounter - Yasmany Holland [...] tomorrow Edwin Holland PA-C documented in this encounterAshtabula County Medical Center04-28-2022 Miscellaneous Notes* Telephone Encounter - Marylu Yeung [...] Provider: Yasmany HOLLAND PA-C documented in this encounterAshtabula County Medical Center04-26-2022 History of Present illness Narrative* Yasmany Holland [...] Bronchitis With Chronic Obstructive Pulmonary Disease (Copd) ([facility]) Chest Pressure Rash Primary Hypertension Chronic Gastritis [...] azelastine (ASTELIN) 0.1% nasal spray Use 1 Providence in each nostril twice daily. 6 mL [...] 38 units tid. 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 Outreach - End Outreach documented in this encounterAshtabula County Medical Center04-20-2022 Miscellaneous Notes* Telephone Encounter - Kaylyn Kaplan [...] patient. Liseth Bell Pss documented in this encounterAshtabula County Medical Center04-14-2022 History of Present illness Narrative* Sho Hebert RN - 12/06/2021 12:51 PM EDT [facility] TELEPHONIC OUTREACH Provider Action/FYI: Second attempt, no answer, no voicemail Contact made with patient: No - Unable to leave message Entered next patient outreach date for the following business day, if third call please enter next outreach date for one week in the Track Pt. Outreach - End Outreach * Sho Hebert RN - 12/06/2021 9:08 AM EDT [facility] TELEPHONIC OUTREACH Provider Action/FYI: Call to [...] Outreach - End Outreach documented in this encounterAshtabula County Medical Center04-11-2022 History of Present illness Narrative* Sho Hebert [...] hours - Routed to [facility] [place] [[id number]] Medications Do you have any questions about [...] like to speak with a social work steamer tender to help give you support for any [...] you up for automated weekly questionnaires through [employer]. This is an easy way for us [...] PtOutreach and End outreach. documented in this encounterAshtabula County Medical Center2022 Miscellaneous Notes* Telephone Encounter - Kareen Lam [...] notify patient. Kareen Lam documented in this encounterAshtabula County Medical Center03-31-2022 History of Present illness Narrative* Joyce Perry PA-C - 11/22/2021 1:30 PM EDT [facility] [place], 11/22/2021: Name: Ivet Valero : 1955 The [...] answers. Joyce Perry PA-C documented in this encounterAshtabula County Medical Center08-18-2021 History of Present illness Narrative* Selena Wright [...] 11, 2021 1:42 PM documented in this encounterAshtabula County Medical Center05-10-2021 History of Past illness Narrative* Problem Noted [...] few tabs. Was started on Ceftin per human resources hr representative a few days prior Chronic cough 01/04/2020 01/05/2022 Persistent disorder of initiating or maintaining sleep 05/25/2008 01/05/2022 Depressive disorder, not elsewhere classified 01/05/2022 documented as of this encounter (statuses as of 01/05/2022) [facility]05-10-[facility] History of Past illness Narrative* Problem Noted [...] few tabs. 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 Was started on Ceftin per human resources hr representative a few days prior Chronic cough 01/04/2020 01/05/2022 Persistent disorder of initiating or maintaining sleep 05/25/2008 01/05/2022 Depressive disorder, not elsewhere classified 01/05/2022 documented as of this encounter (statuses as of 01/23/2022) [facility] of Past illness Narrative* Problem Noted [...] few tabs. 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 Was started on Ceftin per human resources hr representative a few days prior Chronic cough 01/04/2020 01/05/2022 Persistent disorder of initiating or maintaining sleep 05/25/2008 01/05/2022 Depressive disorder, not elsewhere classified 01/05/2022 documented as of this encounter (statuses as of 02/01/2022) [facility] of Past illness Narrative* Problem Noted [...] few tabs. Was started on Ceftin per human resources hr representative a few days prior Chronic cough 01/04/2020 01/05/2022 Persistent disorder of initiating or maintaining sleep 05/25/2008 01/05/2022 Depressive disorder, not elsewhere classified 01/05/2022 documented as of this encounter (statuses as of 02/11/2022) [facility] of Past illness Narrative* Problem Noted [...] few tabs. Was started on Ceftin per human resources hr representative a few days prior Chronic cough 01/04/2020 01/05/2022 Persistent disorder of initiating or maintaining sleep 05/25/2008 01/05/2022 Depressive disorder, not elsewhere classified 01/05/2022 documented as of this encounter (statuses as of 02/15/2022) [facility] of Past illness Narrative* Problem Noted [...] few tabs. Was started on Ceftin per human resources hr representative a few days prior Chronic cough 01/04/2020 01/05/2022 Persistent disorder of initiating or maintaining sleep 05/25/2008 01/05/2022 Depressive disorder, not elsewhere classified 01/05/2022 documented as of this encounter (statuses as of 02/18/2022) [facility]21 History of Past illness Narrative* Problem Noted [...] few tabs. Was started on Ceftin per human resources hr representative a few days prior Chronic cough 01/04/2020 01/05/2022 Persistent disorder of initiating or maintaining sleep 05/25/2008 01/05/2022 Depressive disorder, not elsewhere classified 01/05/2022 documented as of this encounter (statuses as of 03/18/2022) [facility] History of Past illness Narrative* Problem Noted [...] few tabs. Was started on Ceft[employer] per human resources hr representative a few days prior Chronic cough 01/04/2020 01/05/2022 Persistent disorder of initiating or maintaining sleep 05/25/2008 01/05/2022 Depressive disorder, not elsewhere classified 01/05/2022 documented as of this encounter (statuses as of 03/26/2022) [facility] History of Past illness Narrative* Problem Noted [...] few tabs. Was started on Ceft[employer] per human resources hr representative a few days prior Chronic cough 01/04/2020 01/05/2022 Persistent disorder of initiating or maintaining sleep 05/25/2008 01/05/2022 Depressive disorder, not elsewhere classified 01/05/2022 documented as of this encounter (statuses as of 03/27/2022) [facility] History of Past illness Narrative* Problem Noted [...] few tabs. Was started on Ceft[employer] per human resources hr representative a few days prior Chronic cough 01/04/2020 01/05/2022 Persistent disorder of initiating or maintaining sleep 05/25/2008 01/05/2022 Depressive disorder, not elsewhere classified 01/05/2022 documented as of this encounter (statuses as of 04/15/2022) [facility] History of Past illness Narrative* Problem Noted [...] few tabs. Was started on Ceft[employer] per human resources hr representative a few days prior Chronic cough 01/04/2020 01/05/2022 Persistent disorder of initiating or maintaining sleep 05/25/2008 01/05/2022 Depressive disorder, not elsewhere classified 01/05/2022 documented as of this encounter (statuses as of 04/16/2022) [facility] History of Past illness Narrative* Problem Noted [...] few tabs. Was started on Ceft[employer] per human resources hr representative a few days prior Chronic cough 01/04/2020 01/05/2022 Persistent disorder of initiating or maintaining sleep 05/25/2008 01/05/2022 Depressive disorder, not elsewhere classified 01/05/2022 documented as of this encounter (statuses as of 04/22/2022) [facility] History of Past illness Narrative* Problem Noted [...] few tabs. Was started on Ceft[employer] per human resources hr representative a few days prior Chronic cough 01/04/2020 01/05/2022 Persistent disorder of initiating or maintaining sleep 05/25/2008 01/05/2022 Depressive disorder, not elsewhere classified 01/05/2022 documented as of this encounter (statuses as of 04/30/2022) [facility] History of Past illness Narrative* Problem Noted [...] few tabs. Was started on Ceft[employer] per human resources hr representative a few days prior Chronic cough 01/04/2020 01/05/2022 Persistent disorder of initiating or maintaining sleep 05/25/2008 01/05/2022 Depressive disorder, not elsewhere classified 01/05/2022 documented as of this encounter (statuses as of 05/01/2022) [facility] History of Past illness Narrative* Problem Noted [...] few tabs. Was started on Ceft[employer] per human resources hr representative a few days prior Chronic cough 01/04/2020 01/05/2022 Persistent disorder of initiating or maintaining sleep 05/25/2008 01/05/2022 Depressive disorder, not elsewhere classified 01/05/2022 documented as of this encounter (statuses as of 05/03/2022) [facility] History of Past illness Narrative* Problem Noted [...] few tabs. Was started on Ceft[employer] per human resources hr representative a few days prior Chronic cough 01/04/2020 01/05/2022 Persistent disorder of initiating or maintaining sleep 05/25/2008 01/05/2022 Depressive disorder, not elsewhere classified 01/05/2022 documented as of this encounter (statuses as of 05/06/2022) [facility] History of Past illness Narrative* Problem Noted [...] few tabs. Was started on Ceftin per human resources hr representative a few days prior Chronic cough 01/04/2020 01/05/2022 Persistent disorder of initiating or maintaining sleep 05/25/2008 01/05/2022 Depressive disorder, not elsewhere classified 01/05/2022 documented as of this encounter (statuses as of 05/28/2022) [facility] History of Past illness Narrative* Problem Noted [...] few tabs. Was started on Ceft[employer] per human resources hr representative a few days prior Chronic cough 01/04/2020 01/05/2022 Persistent disorder of initiating or maintaining sleep 05/25/2008 01/05/2022 Depressive disorder, not elsewhere classified 01/05/2022 documented as of this encounter (statuses as of 06/05/2022) [facility] History of Past illness Narrative* Problem Noted [...] few tabs. Was started on Ceft[employer] per human resources hr representative a few days prior Chronic cough 01/04/2020 01/05/2022 Persistent disorder of initiating or maintaining sleep 05/25/2008 01/05/2022 Depressive disorder, not elsewhere classified 01/05/2022 documented as of this encounter (statuses as of 06/19/2022) [facility] History of Past illness Narrative* Problem Noted [...] few tabs. Was started on Ceftin per human resources hr representative a few days prior Chronic cough 01/04/2020 01/05/2022 Persistent disorder of initiating or maintaining sleep 05/25/2008 01/05/2022 Depressive disorder, not elsewhere classified 01/05/2022 documented as of this encounter (statuses as of 06/24/2022) [facility] History of Past illness Narrative* Problem Noted [...] few tabs. Was started on Ceftin per human resources hr representative a few days prior Chronic cough 01/04/2020 01/05/2022 Persistent disorder of initiating or maintaining sleep 05/25/2008 01/05/2022 Depressive disorder, not elsewhere classified 01/05/2022 documented as of this encounter (statuses as of 06/25/2022) [facility] History of Past illness Narrative* Problem Noted [...] few tabs. Was started on Ceftin per human resources hr representative a few days prior Chronic cough 01/04/2020 01/05/2022 Persistent disorder of initiating or maintaining sleep 05/25/2008 01/05/2022 Depressive disorder, not elsewhere classified 01/05/2022 documented as of this encounter (statuses as of 06/26/2022) [facility] History of Past illness Narrative* Problem Noted [...] few tabs. Was started on Ceftin per human resources hr representative a few days prior Chronic cough 01/04/2020 01/05/2022 Persistent disorder of initiating or maintaining sleep 05/25/2008 01/05/2022 Depressive disorder, not elsewhere classified 01/05/2022 documented as of this encounter (statuses as of 06/27/2022) [facility] History of Past illness Narrative* Problem Noted [...] few tabs. Was started on Ceftin per human resources hr representative a few days prior Chronic cough 01/04/2020 01/05/2022 Persistent disorder of initiating or maintaining sleep 05/25/2008 01/05/2022 Depressive disorder, not elsewhere classified 01/05/2022 documented as of this encounter (statuses as of 07/11/2022) [facility] History of Past illness Narrative* Problem Noted [...] few tabs. Was started on Ceftin per human resources hr representative a few days prior Chronic cough 01/04/2020 01/05/2022 Persistent disorder of initiating or maintaining sleep 05/25/2008 01/05/2022 Depressive disorder, not elsewhere classified 01/05/2022 documented as of this encounter (statuses as of 07/24/2022) [facility] History of Past illness Narrative* Problem Noted [...] few tabs. Was started on Ceftin per human resources hr representative a few days prior Chronic cough 01/04/2020 01/05/2022 Persistent disorder of initiating or maintaining sleep 05/25/2008 01/05/2022 Depressive disorder, not elsewhere classified 01/05/2022 documented as of this encounter (statuses as of 07/31/2022) [facility] History of Past illness Narrative* Problem Noted [...] few tabs. Was started on Ceftin per human resources hr representative a few days prior Chronic cough 01/04/2020 01/05/2022 Persistent disorder of initiating or maintaining sleep 05/25/2008 01/05/2022 Depressive disorder, not elsewhere classified 01/05/2022 documented as of this encounter (statuses as of 08/01/2022) [facility] History of Past illness Narrative* Problem Noted [...] few tabs. Was started on Ceftin per human resources hr representative a few days prior Chronic cough 01/04/2020 01/05/2022 Persistent disorder of initiating or maintaining sleep 05/25/2008 01/05/2022 Depressive disorder, not elsewhere classified 01/05/2022 documented as of this encounter (statuses as of 08/12/2022) [facility] History of Past illness Narrative* Problem Noted [...] few tabs. Was started on Ceftin per human resources hr representative a few days prior Chronic cough 01/04/2020 01/05/2022 Persistent disorder of initiating or maintaining sleep 05/25/2008 01/05/2022 Depressive disorder, not elsewhere classified 01/05/2022 documented as of this encounter (statuses as of 09/04/2022) [facility] History of Past illness Narrative* Problem Noted [...] few tabs. Was started on Ceftin per human resources hr representative a few days prior Chronic cough 01/04/2020 01/05/2022 Persistent disorder of initiating or maintaining sleep 05/25/2008 01/05/2022 Depressive disorder, not elsewhere classified 01/05/2022 documented as of this encounter (statuses as of 09/04/2022) [facility] History of Past illness Narrative* Problem Noted [...] few tabs. Was started on Ceftin per human resources hr representative a few days prior Chronic cough 01/04/2020 01/05/2022 Persistent disorder of initiating or maintaining sleep 05/25/2008 01/05/2022 Depressive disorder, not elsewhere classified 01/05/2022 documented as of this encounter (statuses as of 09/05/2022) [facility] History of Past illness Narrative* Problem Noted [...] few tabs. Was started on Ceftin per human resources hr representative a few days prior Chronic cough 01/04/2020 01/05/2022 Persistent disorder of initiating or maintaining sleep 05/25/2008 01/05/2022 Depressive disorder, not elsewhere classified 01/05/2022 documented as of this encounter (statuses as of 10/10/2022) [facility] History of Past illness Narrative* Problem Noted [...] few tabs. Was started on Ceftin per human resources hr representative a few days prior Chronic cough 01/04/2020 01/05/2022 Persistent disorder of initiating or maintaining sleep 05/25/2008 01/05/2022 Depressive disorder, not elsewhere classified 01/05/2022 documented as of this encounter (statuses as of 11/12/2022) [facility] History of Past illness Narrative* Problem Noted [...] few tabs. Was started on Ceftin per human resources hr representative a few days prior Chronic cough 01/04/2020 01/05/2022 Persistent disorder of initiating or maintaining sleep 05/25/2008 01/05/2022 Depressive disorder, not elsewhere classified 01/05/2022 documented as of this encounter (statuses as of 11/13/2022) [facility] History of Past illness Narrative* Problem Noted [...] few tabs. Was started on Ceftin per human resources hr representative a few days prior Chronic cough 01/04/2020 01/05/2022 Persistent disorder of initiating or maintaining sleep 05/25/2008 01/05/2022 Depressive disorder, not elsewhere classified 01/05/2022 documented as of this encounter (statuses as of 11/26/2022) [facility] History of Past illness Narrative* Problem Noted [...] few tabs. Was started on Ceftin per human resources hr representative a few days prior Chronic cough 01/04/2020 01/05/2022 Persistent disorder of initiating or maintaining sleep 05/25/2008 01/05/2022 Depressive disorder, not elsewhere classified 01/05/2022 documented as of this encounter (statuses as of 12/09/2022) [facility] History of Past illness Narrative* Problem Noted [...] few tabs. Was started on Ceftin per human resources hr representative a few days prior Chronic cough 01/04/2020 01/05/2022 Persistent disorder of initiating or maintaining sleep 05/25/2008 01/05/2022 Depressive disorder, not elsewhere classified 01/05/2022 documented as of this encounter (statuses as of 12/16/2022) [facility] History of Past illness Narrative* Problem Noted [...] few tabs. Was started on Ceftin per human resources hr representative a few days prior Chronic cough 01/04/2020 01/05/2022 Persistent disorder of initiating or maintaining sleep 05/25/2008 01/05/2022 Depressive disorder, not elsewhere classified 01/05/2022 documented as of this encounter (statuses as of 01/01/2023) [address]10-2021 History of Past illness Narrative* Problem [...] few tabs. Was started on Ceftin per human resources hr representative a few days prior Chronic cough 01/04/2020 01/05/2022 Persistent disorder of initiating or maintaining sleep 05/25/2008 01/05/2022 Depressive disorder, not elsewhere classified 01/05/2022 documented as of this encounter (statuses as of 01/14/2023) [facility] History of Past illness Narrative* Problem Noted [...] few tabs. Was started on Ceftin per human resources hr representative a few days prior Chronic cough 01/04/2020 01/05/2022 Persistent disorder of initiating or maintaining sleep 05/25/2008 01/05/2022 Depressive disorder, not elsewhere classified 01/05/2022 documented as of this encounter (statuses as of 01/23/2023) [facility] History of Past illness Narrative* Problem Noted [...] few tabs. Was started on Ceftin per human resources hr representative a few days prior Chronic cough 01/04/2020 01/05/2022 Persistent disorder of initiating or maintaining sleep 05/25/2008 01/05/2022 Depressive disorder, not elsewhere classified 01/05/2022 documented as of this encounter (statuses as of 02/03/2023) [facility] History of Past illness Narrative* Problem Noted [...] few tabs. Was started on Ceftin per human resources hr representative a few days prior Chronic cough 01/04/2020 01/05/2022 Persistent disorder of initiating or maintaining sleep 05/25/2008 01/05/2022 Depressive disorder, not elsewhere classified 01/05/2022 documented as of this encounter (statuses as of 02/18/2023) [facility] History of Past illness Narrative* Problem Noted [...] few tabs. Was started on Ceftin per human resources hr representative a few days prior Chronic cough 01/04/2020 01/05/2022 Persistent disorder of initiating or maintaining sleep 05/25/2008 01/05/2022 Depressive disorder, not elsewhere classified 01/05/2022 documented as of this encounter (statuses as of 02/25/2023) [facility] History of Past illness Narrative* Problem Noted [...] few tabs. Was started on Ceftin per human resources hr representative a few days prior Chronic cough 01/04/2020 01/05/2022 Persistent disorder of initi ating or maintaining sleep 05/25/2008 01/05/2022 Depressive disorder, not elsewhere classified 01/05/2022 documented as of this encounter (statuses as of 03/12/2023) [facility] History of Past illness Narrative* Problem Noted [...] few tabs. Was started on Ceftin per human resources hr representative a few days prior Chronic cough 01/04/2020 01/05/2022 Persistent disorder of initi ating or maintaining sleep 05/25/2008 01/05/2022 Depressive disorder, not elsewhere classified 01/05/2022 documented as of this encounter (statuses as of 03/13/2023) [facility] History of Past illness Narrative* Problem Noted [...] few tabs. Was started on Ceftin per human resources hr representative a few days prior Chronic cough 01/04/2020 01/05/2022 Persistent disorder of initi ating or maintaining sleep 05/25/2008 01/05/2022 Depressive disorder, not elsewhere classified 01/05/2022 documented as of this encounter (statuses as of 03/24/2023) [facility] History of Past illness Narrative* Problem Noted [...] few tabs. 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 A pre-flushed 6-Swedish sheath was inserted into the femoral artery [...] [place] DATE: December 29, 2020 TIME: 10:17 [facility]12[facility] History of Present illness Narrative* Selean Wright (Rt)Odalys - 07/27/2020 12:40 PM EST [...] 27, 2020 12:45 PM documented in this encounterWatonga ClinicDischar summary Author Bhavin Quinn [facility] Note Date/Time May 15, 2025 4:34am [facility] Medical Records Department [address] [place] [address] Emergency Department Summary 05/15/25 MR#: [id number] Acct: [id number] Name: IVET VALERO Rep #:[id number] : [id number] 70 From: Bhavin Quinn [...] was brought to the hospital for evaluation [facility] Medical History Wears dentures Wears glasses Post-menopausal [...] 20 mg tablet [facility] 08/04/23 08/04/23 History promethazine 25 [...] no signs of acute kidneyinjury clinically significant [place] abnormality or thyroid disorder. The urine sample [...] % (Auto) 69.9 Lymph % (Auto) 21.1 [place] % (Auto) 7.4 Eos % (Auto) 0.5 [...] Sl. Cloudy Urine pH 6.0 Ur Specific [place] 1.010 Urine Protein Negative Urine Glucose (UA) [...] ischemic gliotic white matter changes. Reading Location: [facility] Chest CT 05/15/25 00:53 IMPRESSION: 1. No acute findings in the chest as imaged. 2. No rib fractures identified. 3. Left renal cyst measures 3.5 cm. Reading Location: [facility] Discharge Plan Triage Chief Complaint: Weakness Other [...] have pain during this time Print Language: [place] Island[place] Disposition Disposition: Home, Self Care What to do if you have Problems For any increased pain, shortness of breath, bleeding, nausea or vomiting, chestpain, or any unexpected problems, contact your Primary Care Provider. Call [facility] ([phone]) or report to the closest Emergency Room. Call 911 if necessary. 05/15/25 [id number] <Electronically signed by Bhavin Quinn DO> Cosigner Signature (if applicable): CC: Dr. Ricci Cole MD ~ Signed [facility] Work Phone: Evaluation note* Diagnosis COPD with exacerbation (HCC)- Primary Obstructive chronic bronchitis with exacerbation COPD with chronic bronchitis (HCC) Obstructive chronic bronchitis without exacerbation Tobacco use disorder, continuous Tobacco use disorder documented [facility] this encounter [facility] [place] [facility]* Diagnosis Nausea Nausea alone documented in this encounter [facility] note* Diagnosis Type 2 diabetes mellitus without complication, without long-term current use of insulin (HCC) documented in this encounter [facility] note* Diagnosis Suspected COVID-19 virus infection- Primary [...] Nausea Nausea alone [facility] [place] [facility] Diagnosis Low vitamin D level- Primary Serum calcium elevated Hypercalcemia documented [facility] [place] [facility]* Diagnosis COPD with exacerbation (HCC)- Primary Obstructive chronic bronchitis with exacerbation [facility] this [facility] [place] noteNo assessment information availableWUC [facility] Work Phone: Evaluation note* Diagnosis Nausea Nausea alone documented in this encounter [facility] note* Diagnosis Nausea- Primary Nausea alone Other [...] Uncontrolled type 2 diabetes mellitus with hyperglycemia ([facility]) Screening breast examination Breast screening, unspecified Screening for colon cancer Special screening for malignant neoplasms, colon Pyuria Other nonspecific finding on examination of urine Chronic bronchitis, unspecified chronic bronchitis type ([facility]) documented in this encounter [facility] note* Diagnosis Leukocytosis, unspecified type- Primary documented in this encounter [facility] note* Diagnosis Onset Date Resolution Status UTI due to extended-spectrum beta lactamase (ESBL) producing Escherichia coli acute [facility] Work Phone: Evaluation note* Diagnosis Onset Date Resolution Status Leukocytosis acute SIRS (systemic inflammatory response syndrome) acute Urinary tract infection acut e UTI due to extended-spectrum beta lactamase (ESBL) producing Escherichia coli acute Diabetes chronic [facility] Work Phone: Evaluation note* Diagnosis Fibromyalgia- Primary Mylagia and myositis, unspecified Type 2 diabetes mellitus without complication, without long-term current use of insulin ([facility]) Screening for colon cancer Special screening for malignant neoplasms, colon Primary hypertension Unspecified essential hypertension Depression, major, recurrent, in complete remission (HCC) Major depressive disorder, recurrent episode, in full remission Hospital discharge follow-up Other follow-up examination documented in this encounter [facility] note* Diagnosis Nausea Nausea alone documented in this encounter [facility] note* Diagnosis Chronic nausea Nausea alone documented in this encounter [facility] note* Diagnosis Panic attacks Panic disorder without agoraphobia documented in this encounter [facility] note* Diagnosis Nausea Nausea alone documented in this encounter [facility] note* Diagnosis Onset Date Resolution Status Leukocytosis resolved SIRS (systemic inflammatory response syndrome) resolved Intractable nausea and vomiting acute Nausea acute Acute encephalopathy acute Acute UTI acute Sepsis acute Type 2 diabetes mellitus without complications chronic [facility] Work Phone: Evaluation note* Diagnosis Onset Date Resolution Status Leukocytosis resolved SIRS (systemic inflammatory response syndrome) resolved Intractable nausea and vomiting acute Nausea acute Acute encephalopathy resolve d Acute UTI resolved [facility] Work Phone: Evaluation note* Diagnosis Fibromyalgia Mylagia and myositis, unspecified documented in this encounter [facility] note* Diagnosis Onset Date Resolution Status Intractable nausea and vomiting acute Nausea acute Acute encephalopathy resolve d Acute UTI resolved [facility] Work Phone: Evaluation note* Diagnosis Nausea Nausea alone documented in this encounter [facility] note* Diagnosis Panic attacks Panic disorder without agoraphobia documented in this encounter [facility] note* Diagnosis Type 2 diabetes mellitus without complication, without long-term current use of insulin (HCC) Chronic bronchitis, unspecified chronic bronchitis type (HCC) documented in this encounter [facility] note* Diagnosis Type 2 diabetes mellitus without complication, without long-term current use of insulin (HCC) documented in this encounter [facility] note* Diagnosis Type 2 diabetes mellitus without complication, without long-term current use of insulin (HCC) documented in this encounter [facility] note* Diagnosis Encounter for screening mammogram for breast cancer documented in this encounter [facility] note* Diagnosis Type 2 diabetes mellitus without complication, without long-term current use of insulin (HCC) documented in this encounter [facility] note* Diagnosis Type 2 diabetes mellitus without complication, without long-term current use of insulin (HCC) documented in this encounter [facility] note* Diagnosis Candidiasis Candidiasis of unspecified site documented in this encounter [facility] note* Diagnosis Needs assistance with community resources- Primary Assistance needed with transportation documented in this encounter [facility] note* Diagnosis Type 2 diabetes mellitus without complication, without long-term current use of insulin (HCC) documented in this encounter [facility] note* Diagnosis Type 2 diabetes mellitus without [...] at least yearly. [facility]* Diagnosis Vitamin D deficiency- Primary [...] chronic Fibromyalgia chronic Hypertension chronic Tobacco abuse [facility] Work Phone[facility] [place] [facility]* Diagnosis Onset Date Resolution Status Acute UTI acute Anxiety and depression acute Diabetes acute GERD (gastroesophageal reflux disease) acute Leukocytosis acute Nausea acute COPD (chronic obstructive pulmonary disease) chronic Fibromyalgia chronic Hypertension chronic Tobacco abuse [facility] Work Phone: Evaluation note* Diagnosis Type 2 diabetes mellitus without complication, without long-term current use of insulin ([facility]) documented in this encounter [facility] note* Diagnosis Type 2 diabetes mellitus without complication, without long-term current use of insulin (HCC)- Primary documented in this encounter [facility] note* Diagnosis Chronic nausea Nausea alone documented in this encounter [facility] note* Diagnosis Chronic bronchitis, unspecified chronic bronchitis type (HCC)- Primary documented in this encounter [facility] note* Diagnosis Chronic nausea Nausea alone documented in this encounter [facility] note* Diagnosis Chronic nausea Nausea alone documented in this encounter [facility] note* Diagnosis Chronic bronchitis, unspecified chronic bronchitis type (HCC) Chronic nausea Nausea alone documented in this encounter [facility] note* Diagnosis Type 2 diabetes mellitus without complication, without long-term current use of insulin ([facility]) documented in this encounter [facility] note* Diagnosis Type 2 diabetes mellitus without complication, without long-term current use of insulin ([facility]) documented in this encounter [facility] note* Diagnosis Encounter for screening mammogram for breast cancer documented in this encounter [facility] note* Diagnosis Dysuria- Primary Cutaneous candidiasis Candidiasis of skin and nails Tinea corporis Dermatophytosis of the body documented in this encounter [facility] note* Diagnosis Type 2 diabetes mellitus without complication, without long-term current use of insulin (HCC) documented in this encounter [facility] note* Diagnosis Recurrent UTI (urinary tract infection)- Primary Urinary tract infection, site not specified documented in this encounter [facility] note* Diagnosis Chronic nausea Nausea alone documented in this encounter [facility] note* Diagnosis Type 2 diabetes mellitus without complication, without long-term current use of insulin (HCC) Chronic nausea Nausea alone documented in this encounter [facility] note* Diagnosis Type 2 diabetes mellitus without [...] of insulin (HCC) [facility] [place] [facility]* Diagnosis Type 2 diabetes mellitus without [...] nausea Nausea alone [facility] [place] [facility]* Diagnosis Type 2 diabetes mellitus without [...] and stress (male)(female) documented in this encounter [facility] note* Diagnosis Type 2 diabetes mellitus without [...] behavior of skin documented in this encounter [facility] note* Diagnosis Type 2 diabetes mellitus without [...] of insulin (HCC) documented [facility] [place] [facility]* Diagnosis Type 2 diabetes mellitus without [...] Subacute cough Cough documented in this encounter [facility] note* Diagnosis Type 2 diabetes mellitus without [...] site not specified documented in this encounter [facility] note* Diagnosis Type 2 diabetes mellitus without [...] site not specified [facility] [place] [facility]* Diagnosis Cough Type 2 diabetes mellitus [...] with hyperglycemia (HCC) [facility] [place] [facility]* Diagnosis Type 2 diabetes mellitus without [...] single bacterial disease [facility] this [facility] [place] [facility]* Diagnosis Type 2 diabetes mellitus without [...] of insulin (HCC) [facility] [place] [facility]* Diagnosis Type 2 diabetes mellitus without [...] site not specified documented in this encounter [facility] note* Diagnosis Type 2 diabetes mellitus without [...] of insulin (HCC) documented in this encounter [facility] note* Diagnosis Type 2 diabetes mellitus without [...] of insulin (HCC) documented in this encounter [facility] note* Diagnosis Type 2 diabetes mellitus without [...] nausea Nausea alone documented in this encounter [facility] note* Diagnosis Type 2 diabetes mellitus without [...] of insulin (HCC) documented in this encounter [facility] note* Diagnosis Type 2 diabetes mellitus without [...] hyperglycemia (HCC)- Primary documented in this encounter [facility] note* Diagnosis Type 2 diabetes mellitus without [...] nausea Nausea alone documented in this encounter [facility] note* Diagnosis Type 2 diabetes mellitus without [...] vitamin D deficiency documented in this encounter [facility] note* Diagnosis Type 2 diabetes mellitus without [...] hyperglycemia (HCC)- Primary documented in this encounter [facility] note* Diagnosis Type 2 diabetes mellitus without [...] vitamin D deficiency documented in this encounter [facility] note* Diagnosis Type 2 diabetes mellitus without [...] nausea Nausea alone documented in this encounter [facility] note* Diagnosis Type 2 diabetes mellitus without [...] site not specified documented in this encounter [facility] note* Diagnosis Type 2 diabetes mellitus without [...] for breast cancer documented in this encounter [facility] note* Diagnosis Type 2 diabetes mellitus without [...] nausea Nausea alone documented in this encounter [facility] note* Diagnosis Type 2 diabetes mellitus without [...] Acute cough- Primary documented in this encounter [facility] note* Diagnosis Type 2 diabetes mellitus without [...] vitamin D deficiency documented [facility] this encounter [facility] [place] [facility]* Diagnosis Type 2 diabetes mellitus without [...] nausea Nausea alone documented in this encounter [facility] [place] [facility]* Diagnosis Type 2 diabetes mellitus without [...] gastritis without hemorrhage [facility] Additional Instructions Take antibiotics until completion. Use Reglan for nausea. If you feel worse, please return.[facility] Work Phone: Hospital Discharge instructionsAdditional Instructions [...] therefore you may have pain during this timeWooUniversity [facility] Work Phone: Reason for referral (narrative)* Outpatient Procedure (Routine) - Pending Review Specialty Diagnoses / Procedures Referred By Pebbles ernandez Referred To Contact [facility] Diagnoses COPD with chronic bronchitis (HCC) Procedures SPIROMETRY BASELINE ONLY SPMTRY W/VC EXPIRATORY EVER W/WO MXML VOL VNTJ Joyce Perry PA-C [address] [address] [facility] [place] [address] [place] [address] Referral ID Status Reason Start Date Expiration Date Visits Requested Visits Authorized [id number] Pending Review Auto-Generat ed Referral 11/22/2021 12/22/2022 1 1 [facility] for referral (narrative)* Outpatient Procedure (Routine) - Closed Specialty Diagnoses / Procedures Referred By Pebbles ernandez Referred To [facility] Diagnoses Intermittent chest pain Procedures ECG COMPLETE ECG ROUTINE ECG W/LEAST 12 LDS W/I&R Yasmany Holland PA-C [address] [place] [address] [facility] [place] [address] [place] [address] Referral ID Status Reason Start Date Expiration Date V isits Requested Visits Authorized [id number] Closed Auto-Generate d Referral 12/18/2021 12/18/2022 1 1 T [facility] for referral (narrative)* Diagnostic Procedure Only (Routine) - Pending Review Specialty Diagnoses / Procedures Referred By Contgabriela t Referred To Contact [facility] Diagnoses Encounter for screening mammogram for breast cancer Procedures JANELL SCREENING SCREENING MAMMOGRAPHY BI 2-VIEW BREAST INC Ricci Michel MD [address] [place] [address] [facility] [address] [address] Referral ID Status Reason Start Date Expiration Date Visits Requested Visits Authorized [id number] Pending Review Auto-Generat ed Referral 12/11/2022 01/10/2024 1 1 [facility] for referral (narrative)* Diagnostic Procedure Only (Routine) - New Request Specialty Diagnoses / Procedures Referred By Contac t Referred To Contact [facility] Diagnoses Encounter for screening mammogram for breast cancer Procedures JANELL SCREENING W K[place]O SCREENING DIGITAL BREAST TOMOSYNTHESIS BI SCREENING MAMMOGRAPHY BI 2-VIEW BREAST INC Ricci Michel MD [address] [place] [address] [facility] [address] [address] Referral ID Status Reason Start Date Expiration Date Visits Requested Visits Authorized [id number] New Request Auto-Generat ed Referral 03/17/2024 04/16/2025 1 1 [facility]No reason for referral information availableWUC Health Work Phone: Summary Purpose Family History No Family History Records Found Relationship Condition Age at Onset Recorded Date/T lily brother Diabetes mellitus Unknown Hypertension Unknown Advance Directives No Advanced Directives Records FoundDocuments on File 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 Advance Directive(s) Advance Directive(s) 12/29/2020 7:36 AM Advance Directive(s) 12/06/2015 7:48 AM Advance Directive(s) 11/21/2015 3:45 PM Advance Directive(s) 11/06/2015 2:38 PM Documents on File 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 Advance Directive(s) Advance Directive(s) 12/29/2020 7:36 AM Advance Directive(s) 12/06/2015 7:48 AM Advance Directive(s) 11/21/2015 3:45 PM Advance Directive(s) 11/06/2015 2:38 PM Advance Directive Response Recorded Date/ Time Advance Directives No March 30 12:37am Living Will No January 02, 2022 1 1:41am Power of Management Intern No January 02, 2022 11:41am Advance Directive Response Recorded Date/ Time Advance Directives No March 30 12:37am Living Will No January 17, 2022 4 :35pm Power of Management Intern No January 17, 2022 4:35pm Advance Directive Response Recorded Date/ Time Advance Directives No March 30 12:37am Living Will No January 17, 2022 6 :40pm Power of Management Intern No January 17, 2022 6:40pm Advance Directive Response Recorded Date/ Time Advance Directives No March 30 12:37am Living Will No April 30 10:02pm Power of Management Intern No April 30, 2022 10:02pm Advance Directive Response Recorded Date/ Time Advance Directives No March 30 12:37am Living Will No May 01 1:40am Power of Management Intern No May 01, 2022 1:40am Advance Directive Response Recorded Date/ Time Advance Directives No March 30 12:37am Living Will No June 11 8:40am Power of Management Intern No June 11, 2022 8:40am Advance Directive Response Recorded Date/ Time Advance Directives No March 30 12:37am Living Will No November 14, 2022 11:10am Power of Management Intern No November 14 11:10am Advance Directive Response Recorded Date/ Time Advance Directives No March 29 11:37pm Living Will No August 04 023 1:02pm Power of Management Intern No August 04, 2023 1:02pm Advance Directive Response Recorded Date/ Time Advance Directives No March 29 11:37pm Living Will No August 04 023 9:49pm Power of Management Intern No August 04, 2023 9:49pm Advance Directive Response Recorded Date/ Time Do you have a Healthcare Power of Management Intern? No May 15, 2025 12:25am Advance Directives [...] Referred To Contact Yasmany Holland PA-C [address] [place] [address] Referral ID Status Reason Start Date Expiration Date Visits Re quested Visits Authorized [id number] Closed 1 1 Specialty Diagnoses / Procedures Referred By Pebbles ernandez Referred To Contact Urology Diagnoses Urinary incontinence, unspecified type History of recurrent UTIs Procedures CONSULT TO UROLOGY OFFICE/OUTPATIENT [facility] 60-74 MINUTES Ricci Cole MD [address] [place] [address] Referral ID Status Reason Start Date Expiration Date Visits Requested Visits Authorized [id number] Authorized PCP Requested Referral 01/05/2022 01/05/2023 1 1 Specialty Diagnoses / Procedures Referred By Pebbles ernandez Referred To Contact Gastroenterology Diagnoses Nausea Other chronic gastritis without hemorrhage Screening for colon cancer Procedures CONSULT TO GASTROENTEROLOGY OFFICE/OUTPATIENT [facility] 60-[place] [address] [place] [address] Referral ID Status Reason Start Date Expiration Date Visits Requested Visits Authorized [id number] Authorized PCP Requested Referral 01/05/2022 01/05/2023 1 1 Specialty Diagnoses / Procedures Referred By Contac t Referred To Contact [facility] Diagnoses Screening breast examination Procedures JANELL SCREENING SCREENING MAMMOGRAPHY BI 2-VIEW BREAST INC CAD Ricci Cole MD [address] [place] [address] [facility] [address] [place] [address] Referral ID Status Reason Start Date Expiration Date Visits Requested Visits Authorized [id number] Pending Review Auto-Generat ed Referral 01/05/2022 02/04/2023 1 1 Specialty Diagnoses / Procedures Referred By Contac t Referred To Contact Ophthalmology Diagnoses Type 2 diabetes mellitus without complication, without long-term current use of insulin (HCC) Procedures CONSULT TO OPHTHALMOLOGY OFFICE/OUTPATIENT [facility] MDM 60-74 MINUTES Yasmany Holland PA-C [address] [place] [id number] Referral ID Status Reason Start Date Expiration Date Visits Requested Visits Authorized [id number] Authorized PCP Requested Referral 01/29/2022 01/29/2023 1 1 Specialty Diagnoses / Procedures Referred By Contac t Referred To Contact Diagnoses Encounter for screening for lung cancer Procedures CONSULT LUNG CANCER SCREENING CLINIC Nanci Huber, NASEEM.ALUM PLANT OPERATOR [address] [place] [address] Referral ID Status Reason Start Date Expiration Date Visits Requested Visits Authorized [id number] Ref Not Required PCP Requested Referral 04/15/2023 07/14/2023 1 1 Specialty Diagnoses / Procedures Referred By Contac t Referred To Contact [facility] Diagnoses Visit for screening mammogram Procedures JANELL SCREENING SCREENING MAMMOGRAPHY BI 2-VIEW BREAST INC CAD Nanci Huber, PEDIATRIC ASSOCIATE.ALUM PLANT OPERATOR [address] [place] [address] [facility] [address] [place] [address] Referral ID Status Reason Start Date Expiration Date Visits Requested Visits Authorized [id number] Pending Review Auto-Generat ed Referral 04/15/2023 05/14/2024 1 1 Specialty Diagnoses / Procedures Referred By Contac t Referred To Contact Dermatology Diagnoses 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 Procedures CONSULT TO DERMATOLOGY Smiley Melo APRN.ALUM PLANT OPERATOR [address] [place] [address] Referral ID Status Reason Start Date Expiration Date Visits Requested Visits Authorized [id number] Ref Not Required PCP Requested Referral 04/29/2024 04/29/2025 1 1 Specialty Diagnoses / Procedures Referred By Contac t Referred To Contact Urology Diagnoses Recurrent UTI (urinary tract infection) Procedures CONSULT TO UROLOGY OFFICE/OUTPATIENT [facility] MDM 60 MINUTES Smiley Melo APRN.ALUM PLANT OPERATOR [address] [place] [id number] Referral ID Status Reason Start Date Expiration Date Visits Requested Visits Authorized [id number] Authorized PCP Requested Referral 05/11/2024 05/11/2025 1 1 Specialty Diagnoses / Procedures Referred By Contac t Referred To Contact Ophthalmology Diagnoses Type 2 diabetes mellitus without complication, without long-term current use of insulin (HCC) Procedures CONSULT TO OPHTHALMOLOGY OFFICE/OUTPATIENT [facility] MDM 60 MINUTES Smiley Melo APRN.ALUM PLANT OPERATOR [address] [place] [id number] Referral ID Status Reason Start Date Expiration Date Visits Requested Visits Authorized [id number] Authorized PCP Requested Referral 07/26/2025 1 1 Specialty Diagnoses / Procedures Referred By Contac t Referred To Contact XR IMAGING Diagnoses Screening for osteoporosis Asymptomatic menopause Procedures DXA-AXIAL SKELETON DXA BONE DENSITY STUDY / SITES AXIAL SKEL Smiley Melo APRN.ALUM PLANT OPERATOR [address] [place] [address] [place] [address] Referral ID Status Reason Start Date Expiration Date Visits Requested Visits Authorized [id number] Authorized Auto-Generat ed Referral 07/26/2024 08/25/2025 1 1 Specialty Diagnoses / Procedures Referred By Contac t Referred To Contact Diagnoses Encounter for screening for lung cancer Procedures CONSULT LUNG CANCER SCREENING CLINIC Smiley Melo APRN.ALUM PLANT OPERATOR [address] [place] [address] Referral ID Status Reason Start Date Expiration Date Visits Requested Visits Authorized [id number] Ref Not Required PCP Requested Referral 07/26/2024 [...] section and content) DATE CREATED AUTHOR [facility] DATE CREATED AUTHOR AUTHOR'S ORGANIZ ATION 12/31/2020 [facility] DATE CREATED AUTHOR AUTHOR'S ORGANIZ ATION 07/23/2021 [facility] DATE CREATED AUTHOR AUTHOR'S ORGANIZ ATION 06/10/2025 [facility] DATE CREATED AUTHOR AUTHOR'S ORGANIZ ATION 06/23/2025 [facility] Source Comments (unrecognize d section and content) In the event this informatio n is protected by the Federal Confidentiality of Alcohol and Drug Abuse Patient Records regulations: The Federal rules restrict any use of the information to criminally investigate or prosecute any alcohol or drug abuse patient.[facility] CenterIn the event this information is protected by the Federal Confidentiality of Alcohol and Drug Abuse Patient Records regulations: The Federal rules restrict any use of the information to criminally investigate or prosecute any alcohol or drug abuse patient.[facility] CenterIn the event this information is protected by the Federal Confidentiality of Alcohol and Drug Abuse Patient Records regulations: The Federal rules restrict any use of the information to criminally investigate or prosecute any alcohol or drug abuse patient.[facility] CenterIn the event this information is protected by the Federal Confidentiality of Alcohol and Drug Abuse Patient Records regulations: The Federal rules restrict any use of the information to criminally investigate or prosecute any alcohol or drug abuse patient.[facility] CenterIn the event this information is protected by the Federal Confidentiality of Alcohol and Drug Abuse Patient Records regulations: The Federal rules restrict any use of the information to criminally investigate or prosecute any alcohol or drug abuse patient.[facility] CenterIn the event this information is protected by the Federal Confidentiality of Alcohol and Drug Abuse Patient Records regulations: The Federal rules restrict any use of the information to criminally investigate or prosecute any alcohol or drug abuse patient.[facility] CenterIn the event this information is protected by the Federal Confidentiality of Alcohol and Drug Abuse Patient Records regulations: The Federal rules restrict any use of the information to criminally investigate or prosecute any alcohol or drug abuse patient.[facility] CenterIn the event this information is protected by the Federal Confidentiality of Alcohol and Drug Abuse Patient Records regulations: The Federal rules restrict any use of the information to criminally investigate or prosecute any alcohol or drug abuse patient.[facility] CenterIn the event this information is protected by the Federal Confidentiality of Alcohol and Drug Abuse Patient Records regulations: The Federal rules restrict any use of the information to criminally investigate or prosecute any alcohol or drug abuse patient.[facility] CenterIn the event this information is protected by the Federal Confidentiality of Alcohol and Drug Abuse Patient Records regulations: The Federal rules restrict any use of the information to criminally investigate or prosecute any alcohol or drug abuse patient.[facility] CenterIn the event this information is protected by the Federal Confidentiality of Alcohol and Drug Abuse Patient Records regulations: The Federal rules restrict any use of the information to criminally investigate or prosecute any alcohol or drug abuse patient.[facility] CenterIn the event this information is protected by the Federal Confidentiality of Alcohol and Drug Abuse Patient Records regulations: The Federal rules restrict any use of the information to criminally investigate or prosecute any alcohol or drug abuse patient.[facility] CenterIn the event this information is protected by the Federal Confidentiality of Alcohol and Drug Abuse Patient Records regulations: The Federal rules restrict any use of the information to criminally investigate or prosecute any alcohol or drug abuse patient.[facility] CenterIn the event this information is protected by the Federal Confidentiality of Alcohol and Drug Abuse Patient Records regulations: The Federal rules restrict any use of the information to criminally investigate or prosecute any alcohol or drug abuse patient.[facility] CenterIn the event this information is protected by the Federal Confidentiality of Alcohol and Drug Abuse Patient Records regulations: The Federal rules restrict any use of the information to criminally investigate or prosecute any alcohol or drug abuse patient.[facility] CenterIn the event this information is protected by the Federal Confidentiality of Alcohol and Drug Abuse Patient Records regulations: The Federal rules restrict any use of the information to criminally investigate or prosecute any alcohol or drug abuse patient.[facility] CenterIn the event this information is protected by the Federal Confidentiality of Alcohol and Drug Abuse Patient Records regulations: The Federal rules restrict any use of the information to criminally investigate or prosecute any alcohol or drug abuse patient.[facility] CenterIn the event this information is protected by the Federal Confidentiality of Alcohol and Drug Abuse Patient Records regulations: The Federal rules restrict any use of the information to criminally investigate or prosecute any alcohol or drug abuse patient.[facility] CenterIn the event this information is protected by the Federal Confidentiality of Alcohol and Drug Abuse Patient Records regulations: The Federal rules restrict any use of the information to criminally investigate or prosecute any alcohol or drug abuse patient.[facility] CenterIn the event this information is protected by the Federal Confidentiality of Alcohol and Drug Abuse Patient Records regulations: The Federal rules restrict any use of the information to criminally investigate or prosecute any alcohol or drug abuse patient.[facility] CenterIn the event this information is protected by the Federal Confidentiality of Alcohol and Drug Abuse Patient Records regulations: The Federal rules restrict any use of the information to criminally investigate or prosecute any alcohol or drug abuse patient.[facility] CenterIn the event this information is protected by the Federal Confidentiality of Alcohol and Drug Abuse Patient Records regulations: The Federal rules restrict any use of the information to criminally investigate or prosecute any alcohol or drug abuse patient.[facility] CenterIn the event this information is protected by the Federal Confidentiality of Alcohol and Drug Abuse Patient Records regulations: The Federal rules restrict any use of the information to criminally investigate or prosecute any alcohol or drug abuse patient.[facility] CenterIn the event this information is protected by the Federal Confidentiality of Alcohol and Drug Abuse Patient Records regulations: The Federal rules restrict any use of the information to criminally investigate or prosecute any alcohol or drug abuse patient.[facility] CenterIn the event this information is protected by the Federal Confidentiality of Alcohol and Drug Abuse Patient Records regulations: The Federal rules restrict any use of the information to criminally investigate or prosecute any alcohol or drug abuse patient.[facility] CenterIn the event this information is protected by the Federal Confidentiality of Alcohol and Drug Abuse Patient Records regulations: The Federal rules restrict any use of the information to criminally investigate or prosecute any alcohol or drug abuse patient.[facility] CenterIn the event this information is protected by the Federal Confidentiality of Alcohol and Drug Abuse Patient Records regulations: The Federal rules restrict any use of the information to criminally investigate or prosecute any alcohol or drug abuse patient.[facility] CenterIn the event this information is protected by the Federal Confidentiality of Alcohol and Drug Abuse Patient Records regulations: The Federal rules restrict any use of the information to criminally investigate or prosecute any alcohol or drug abuse patient.[facility] CenterIn the event this information is protected by the Federal Confidentiality of Alcohol and Drug Abuse Patient Records regulations: The Federal rules restrict any use of the information to criminally investigate or prosecute any alcohol or drug abuse patient.[facility] CenterIn the event this information is protected by the Federal Confidentiality of Alcohol and Drug Abuse Patient Records regulations: The Federal rules restrict any use of the information to criminally investigate or prosecute any alcohol or drug abuse patient.[facility] CenterIn the event this information is protected by the Federal Confidentiality of Alcohol and Drug Abuse Patient Records regulations: The Federal rules restrict any use of the information to criminally investigate or prosecute any alcohol or drug abuse patient.[facility] CenterIn the event this information is protected by the Federal Confidentiality of Alcohol and Drug Abuse Patient Records regulations: The Federal rules restrict any use of the information to criminally investigate or prosecute any alcohol or drug abuse patient.[facility] CenterIn the event this information is protected by the Federal Confidentiality of Alcohol and Drug Abuse Patient Records regulations: The Federal rules restrict any use of the information to criminally investigate or prosecute any alcohol or drug abuse patient.[facility] CenterIn the event this information is protected by the Federal Confidentiality of Alcohol and Drug Abuse Patient Records regulations: The Federal rules restrict any use of the information to criminally investigate or prosecute any alcohol or drug abuse patient.[facility] CenterIn the event this information is protected by the Federal Confidentiality of Alcohol and Drug Abuse Patient Records regulations: The Federal rules restrict any use of the information to criminally investigate or prosecute any alcohol or drug abuse patient.[facility] CenterIn the event this information is protected by the Federal Confidentiality of Alcohol and Drug Abuse Patient Records regulations: The Federal rules restrict any use of the information to criminally investigate or prosecute any alcohol or drug abuse patient.[facility] CenterIn the event this information is protected by the Federal Confidentiality of Alcohol and Drug Abuse Patient Records regulations: The Federal rules restrict any use of the information to criminally investigate or prosecute any alcohol or drug abuse patient.[facility] CenterIn the event this information is protected by the Federal Confidentiality of Alcohol and Drug Abuse Patient Records regulations: The Federal rules restrict any use of the information to criminally investigate or prosecute any alcohol or drug abuse patient.[facility] CenterIn the event this information is protected by the Federal Confidentiality of Alcohol and Drug Abuse Patient Records regulations: The Federal rules restrict any use of the information to criminally investigate or prosecute any alcohol or drug abuse patient.[facility] CenterIn the event this information is protected by the Federal Confidentiality of Alcohol and Drug Abuse Patient Records regulations: The Federal rules restrict any use of the information to criminally investigate or prosecute any alcohol or drug abuse patient.[facility] CenterIn the event this information is protected by the Federal Confidentiality of Alcohol and Drug Abuse Patient Records regulations: The Federal rules restrict any use of the information to criminally investigate or prosecute any alcohol or drug abuse patient.[facility] CenterIn the event this information is protected by the Federal Confidentiality of Alcohol and Drug Abuse Patient Records regulations: The Federal rules restrict any use of the information to criminally investigate or prosecute any alcohol or drug abuse patient.[facility] CenterIn the event this information is protected by the Federal Confidentiality of Alcohol and Drug Abuse Patient Records regulations: The Federal rules restrict any use of the information to criminally investigate or prosecute any alcohol or drug abuse patient.[facility] CenterIn the event this information is protected by the Federal Confidentiality of Alcohol and Drug Abuse Patient Records regulations: The Federal rules restrict any use of the information to criminally investigate or prosecute any alcohol or drug abuse patient.[facility] CenterIn the event this information is protected by the Federal Confidentiality of Alcohol and Drug Abuse Patient Records regulations: The Federal rules restrict any use of the information to criminally investigate or prosecute any alcohol or drug abuse patient.[facility] CenterIn the event this information is protected by the Federal Confidentiality of Alcohol and Drug Abuse Patient Records regulations: The Federal rules restrict any use of the information to criminally investigate or prosecute any alcohol or drug abuse patient.[facility] CenterIn the event this information is protected by the Federal Confidentiality of Alcohol and Drug Abuse Patient Records regulations: The Federal rules restrict any use of the information to criminally investigate or prosecute any alcohol or drug abuse patient.[facility] CenterIn the event this information is protected by the Federal Confidentiality of Alcohol and Drug Abuse Patient Records regulations: The Federal rules restrict any use of the information to criminally investigate or prosecute any alcohol or drug abuse patient.[facility] CenterIn the event this information is protected by the Federal Confidentiality of Alcohol and Drug Abuse Patient Records regulations: The Federal rules restrict any use of the information to criminally investigate or prosecute any alcohol or drug abuse patient.[facility] CenterIn the event this information is protected by the Federal Confidentiality of Alcohol and Drug Abuse Patient Records regulations: The Federal rules restrict any use of the information to criminally investigate or prosecute any alcohol or drug abuse patient.[facility] CenterIn the event this information is protected by the Federal Confidentiality of Alcohol and Drug Abuse Patient Records regulations: The Federal rules restrict any use of the information to criminally investigate or prosecute any alcohol or drug abuse patient.[facility] CenterIn the event this information is protected by the Federal Confidentiality of Alcohol and Drug Abuse Patient Records regulations: The Federal rules restrict any use of the information to criminally investigate or prosecute any alcohol or drug abuse patient.[facility] CenterIn the event this information is protected by the Federal Confidentiality of Alcohol and Drug Abuse Patient Records regulations: The Federal rules restrict any use of the information to criminally investigate or prosecute any alcohol or drug abuse patient.[facility] CenterIn the event this information is protected by the Federal Confidentiality of Alcohol and Drug Abuse Patient Records regulations: The Federal rules restrict any use of the information to criminally investigate or prosecute any alcohol or drug abuse patient.[facility] CenterIn the event this information is protected by the Federal Confidentiality of Alcohol and Drug Abuse Patient Records regulations: The Federal rules restrict any use of the information to criminally investigate or prosecute any alcohol or drug abuse patient.[facility] CenterIn the event this information is protected by the Federal Confidentiality of Alcohol and Drug Abuse Patient Records regulations: The Federal rules restrict any use of the information to criminally investigate or prosecute any alcohol or drug abuse patient.[facility] CenterIn the event this information is protected by the Federal Confidentiality of Alcohol and Drug Abuse Patient Records regulations: The Federal rules restrict any use of the information to criminally investigate or prosecute any alcohol or drug abuse patient.[facility] CenterIn the event this information is protected by the Federal Confidentiality of Alcohol and Drug Abuse Patient Records regulations: The Federal rules restrict any use of the information to criminally investigate or prosecute any alcohol or drug abuse patient.[facility] CenterIn the event this information is protected by the Federal Confidentiality of Alcohol and Drug Abuse Patient Records regulations: The Federal rules restrict any use of the information to criminally investigate or prosecute any alcohol or drug abuse patient.[facility] CenterIn the event this information is protected by the Federal Confidentiality of Alcohol and Drug Abuse Patient Records regulations: The Federal rules restrict any use of the information to criminally investigate or prosecute any alcohol or drug abuse patient.[facility] CenterIn the event this information is protected by the Federal Confidentiality of Alcohol and Drug Abuse Patient Records regulations: The Federal rules restrict any use of the information to criminally investigate or prosecute any alcohol or drug abuse patient.[facility] CenterIn the event this information is protected by the Federal Confidentiality of Alcohol and Drug Abuse Patient Records regulations: The Federal rules restrict any use of the information to criminally investigate or prosecute any alcohol or drug abuse patient.[facility] CenterIn the event this information is protected by the Federal Confidentiality of Alcohol and Drug Abuse Patient Records regulations: The Federal rules restrict any use of the information to criminally investigate or prosecute any alcohol or drug abuse patient.[facility] CenterIn the event this information is protected by the Federal Confidentiality of Alcohol and Drug Abuse Patient Records regulations: The Federal rules restrict any use of the information to criminally investigate or prosecute any alcohol or drug abuse patient.[facility] CenterIn the event this information is protected by the Federal Confidentiality of Alcohol and Drug Abuse Patient Records regulations: The Federal rules restrict any use of the information to criminally investigate or prosecute any alcohol or drug abuse patient.[facility] CenterIn the event this information is protected by the Federal Confidentiality of Alcohol and Drug Abuse Patient Records regulations: The Federal rules restrict any use of the information to criminally investigate or prosecute any alcohol or drug abuse patient.[facility] CenterIn the event this information is protected by the Federal Confidentiality of Alcohol and Drug Abuse Patient Records regulations: The Federal rules restrict any use of the information to criminally investigate or prosecute any alcohol or drug abuse patient.[facility] CenterIn the event this information is protected by the Federal Confidentiality of Alcohol and Drug Abuse Patient Records regulations: The Federal rules restrict any use of the information to criminally investigate or prosecute any alcohol or drug abuse patient.[facility] CenterIn the event this information is protected by the Federal Confidentiality of Alcohol and Drug Abuse Patient Records regulations: The Federal rules restrict any use of the information to criminally investigate or prosecute any alcohol or drug abuse patient.[facility] CenterIn the event this information is protected by the Federal Confidentiality of Alcohol and Drug Abuse Patient Records regulations: The Federal rules restrict any use of the information to criminally investigate or prosecute any alcohol or drug abuse patient.[facility] CenterIn the event this information is protected by the Federal Confidentiality of Alcohol and Drug Abuse Patient Records regulations: The Federal rules restrict any use of the information to criminally investigate or prosecute any alcohol or drug abuse patient.[facility] CenterIn the event this information is protected by the Federal Confidentiality of Alcohol and Drug Abuse Patient Records regulations: The Federal rules restrict any use of the information to criminally investigate or prosecute any alcohol or drug abuse patient.[facility] CenterIn the event this information is protected by the Federal Confidentiality of Alcohol and Drug Abuse Patient Records regulations: The Federal rules restrict any use of the information to criminally investigate or prosecute any alcohol or drug abuse patient.[facility] CenterIn the event this information is protected by the Federal Confidentiality of Alcohol and Drug Abuse Patient Records regulations: The Federal rules restrict any use of the information to criminally investigate or prosecute any alcohol or drug abuse patient.[facility] CenterIn the event this information is protected by the Federal Confidentiality of Alcohol and Drug Abuse Patient Records regulations: The Federal rules restrict any use of the information to criminally investigate or prosecute any alcohol or drug abuse patient.[facility] CenterIn the event this information is protected by the Federal Confidentiality of Alcohol and Drug Abuse Patient Records regulations: The Federal rules restrict any use of the information to criminally investigate or prosecute any alcohol or drug abuse patient.[facility] CenterIn the event this information is protected by the Federal Confidentiality of Alcohol and Drug Abuse Patient Records regulations: The Federal rules restrict any use of the information to criminally investigate or prosecute any alcohol or drug abuse patient.[facility] CenterIn the event this information is protected by the Federal Confidentiality of Alcohol and Drug Abuse Patient Records regulations: The Federal rules restrict any use of the information to criminally investigate or prosecute any alcohol or drug abuse patient.[facility] CenterIn the event this information is protected by the Federal Confidentiality of Alcohol and Drug Abuse Patient Records regulations: The Federal rules restrict any use of the information to criminally investigate or prosecute any alcohol or drug abuse patient.[facility] CenterIn the event this information is protected by the Federal Confidentiality of Alcohol and Drug Abuse Patient Records regulations: The Federal rules restrict any use of the information to criminally investigate or prosecute any alcohol or drug abuse patient.[facility] CenterIn the event this information is protected by the Federal Confidentiality of Alcohol and Drug Abuse Patient Records regulations: The Federal rules restrict any use of the information to criminally investigate or prosecute any alcohol or drug abuse patient.[facility] CenterIn the event this information is protected by the Federal Confidentiality of Alcohol and Drug Abuse Patient Records regulations: The Federal rules restrict any use of the information to criminally investigate or prosecute any alcohol or drug abuse patient.[facility] CenterIn the event this information is protected by the Federal Confidentiality of Alcohol and Drug Abuse Patient Records regulations: The Federal rules restrict any use of the information to criminally investigate or prosecute any alcohol or drug abuse patient.[facility] CenterIn the event this information is protected by the Federal Confidentiality of Alcohol and Drug Abuse Patient Records regulations: The Federal rules restrict any use of the information to criminally investigate or prosecute any alcohol or drug abuse patient.[facility] CenterIn the event this information is protected by the Federal Confidentiality of Alcohol and Drug Abuse Patient Records regulations: The Federal rules restrict any use of the information to criminally investigate or prosecute any alcohol or drug abuse patient.[facility] CenterIn the event this information is protected by the Federal Confidentiality of Alcohol and Drug Abuse Patient Records regulations: The Federal rules restrict any use of the information to criminally investigate or prosecute any alcohol or drug abuse patient.[facility]In the event this information is protected by the Federal Confidentiality of Alcohol and Drug Abuse Patient Records regulations: The Federal rules restrict any use of the information to criminally investigate or prosecute any alcohol or drug abuse patient.[facility]In the event this information is protected by the Federal Confidentiality of Alcohol and Drug Abuse Patient Records regulations: The Federal rules restrict any use of the information to criminally investigate or prosecute any alcohol or drug abuse patient.[facility] CenterIn the event this information is protected by the Federal Confidentiality of Alcohol and Drug Abuse Patient Records regulations: The Federal rules restrict any use of the information to criminally investigate or prosecute any alcohol or drug abuse patient.[facility] CenterIn the event this information is protected by the Federal Confidentiality of Alcohol and Drug Abuse Patient Records regulations: The Federal rules restrict any use of the information to criminally investigate or prosecute any alcohol or drug abuse patient.[facility] CenterIn the event this information is protected by the Federal Confidentiality of Alcohol and Drug Abuse Patient Records regulations: The Federal rules restrict any use of the information to criminally investigate or prosecute any alcohol or drug abuse patient.[facility] CenterIn the event this information is protected by the Federal Confidentiality of Alcohol and Drug Abuse Patient Records regulations: The Federal rules restrict any use of the information to criminally investigate or prosecute any alcohol or drug abuse patient.[facility] CenterIn the event this information is protected by the Federal Confidentiality of Alcohol and Drug Abuse Patient Records regulations: The Federal rules restrict any use of the information to criminally investigate or prosecute any alcohol or drug abuse patient.[facility]In the event this information is protected by the Federal Confidentiality of Alcohol and Drug Abuse Patient Records regulations: The Federal rules restrict any use of the information to criminally investigate or prosecute any alcohol or drug abuse patient.[facility] CenterIn the event this information is protected by the Federal Confidentiality of Alcohol and Drug Abuse Patient Records regulations: The Federal rules restrict any use of the information to criminally investigate or prosecute any alcohol or drug abuse patient.[facility] CenterIn the event this information is protected by the Federal Confidentiality of Alcohol and Drug Abuse Patient Records regulations: The Federal rules restrict any use of the information to criminally investigate or prosecute any alcohol or drug abuse patient.[facility]In the event this information is protected by the Federal Confidentiality of Alcohol and Drug Abuse Patient Records regulations: The Federal rules restrict any use of the information to criminally investigate or prosecute any alcohol or drug abuse patient.[facility]In the event this information is protected by the Federal Confidentiality of Alcohol and Drug Abuse Patient Records regulations: The Federal rules restrict any use of the information to criminally investigate or prosecute any alcohol or drug abuse patient.[facility]In the event this information is protected by the Federal Confidentiality of Alcohol and Drug Abuse Patient Records regulations: The Federal rules restrict any use of the information to criminally investigate or prosecute any alcohol or drug abuse patient.[facility]In the event this information is protected by the Federal Confidentiality of Alcohol and Drug Abuse Patient Records regulations: The Federal rules restrict any use of the information to criminally investigate or prosecute any alcohol or drug abuse patient.[facility]In the event this information is protected by the Federal Confidentiality of Alcohol and Drug Abuse Patient Records regulations: The Federal rules restrict any use of the information to criminally investigate or prosecute any alcohol or drug abuse patient.[facility]In the event this information is protected by the Federal Confidentiality of Alcohol and Drug Abuse Patient Records regulations: The Federal rules restrict any use of the information to criminally investigate or prosecute any alcohol or drug abuse patient.[facility]In the event this information is protected by the Federal Confidentiality of Alcohol and Drug Abuse Patient Records regulations: The Federal rules restrict any use of the information to criminally investigate or prosecute any alcohol or drug abuse patient.[facility]In the event this information is protected by the Federal Confidentiality of Alcohol and Drug Abuse Patient Records regulations: The Federal rules restrict any use of the information to criminally investigate or prosecute any alcohol or drug abuse patient.[facility]In the event this information is protected by the Federal Confidentiality of Alcohol and Drug Abuse Patient Records regulations: The Federal rules restrict any use of the information to criminally investigate or prosecute any alcohol or drug abuse patient.[facility]In the event this information is protected by the Federal Confidentiality of Alcohol and Drug Abuse Patient Records regulations: The Federal rules restrict any use of the information to criminally investigate or prosecute any alcohol or drug abuse patient.[facility]In the event this information is protected by the Federal Confidentiality of Alcohol and Drug Abuse Patient Records regulations: The Federal rules restrict any use of the information to criminally investigate or prosecute any alcohol or drug abuse patient.[facility]In the event this information is protected by the Federal Confidentiality of Alcohol and Drug Abuse Patient Records regulations: The Federal rules restrict any use of the information to criminally investigate or prosecute any alcohol or drug abuse patient.[facility]In the event this information is protected by the Federal Confidentiality of Alcohol and Drug Abuse Patient Records regulations: The Federal rules restrict any use of the information to criminally investigate or prosecute any alcohol or drug abuse patient.[facility]In the event this information is protected by the Federal Confidentiality of Alcohol and Drug Abuse Patient Records regulations: The Federal rules restrict any use of the information to criminally investigate or prosecute any alcohol or drug abuse patient.[facility]In the event this information is protected by the Federal Confidentiality of Alcohol and Drug Abuse Patient Records regulations: The Federal rules restrict any use of the information to criminally investigate or prosecute any alcohol or drug abuse patient.[facility]In the event this information is protected by the Federal Confidentiality of Alcohol and Drug Abuse Patient Records regulations: The Federal rules restrict any use of the information to criminally investigate or prosecute any alcohol or drug abuse patient.[facility]In the event this information is protected by the Federal Confidentiality of Alcohol and Drug Abuse Patient Records regulations: The Federal rules restrict any use of the information to criminally investigate or prosecute any alcohol or drug abuse patient.[facility]In the event this information is protected by the Federal Confidentiality of Alcohol and Drug Abuse Patient Records regulations: The Federal rules restrict any use of the information to criminally investigate or prosecute any alcohol or drug abuse patient.[facility]In the event this information is protected by the Federal Confidentiality of Alcohol and Drug Abuse Patient Records regulations: The Federal rules restrict any use of the information to criminally investigate or prosecute any alcohol or drug abuse patient.[facility]In the event this information is protected by the Federal Confidentiality of Alcohol and Drug Abuse Patient Records regulations: The Federal rules restrict any use of the information to criminally investigate or prosecute any alcohol or drug abuse patient.[facility]In the event this information is protected by the Federal Confidentiality of Alcohol and Drug Abuse Patient Records regulations: The Federal rules restrict any use of the information to criminally investigate or prosecute any alcohol or drug abuse patient.[facility]In the event this information is protected by the Federal Confidentiality of Alcohol and Drug Abuse Patient Records regulations: The Federal rules restrict any use of the information to criminally investigate or prosecute any alcohol or drug abuse patient.[facility]In the event this information is protected by the Federal Confidentiality of Alcohol and Drug Abuse Patient Records regulations: The Federal rules restrict any use of the information to criminally investigate or prosecute any alcohol or drug abuse patient.[facility]In the event this information is protected by the Federal Confidentiality of Alcohol and Drug Abuse Patient Records regulations: The Federal rules restrict any use of the information to criminally investigate or prosecute any alcohol or drug abuse patient.[facility]In the event this information is protected by the Federal Confidentiality of Alcohol and Drug Abuse Patient Records regulations: The Federal rules restrict any use of the information to criminally investigate or prosecute any alcohol or drug abuse patient.[facility]In the event this information is protected by the Federal Confidentiality of Alcohol and Drug Abuse Patient Records regulations: The Federal rules restrict any use of the information to criminally investigate or prosecute any alcohol or drug abuse patient.[facility]In the event this information is protected by the Federal Confidentiality of Alcohol and Drug Abuse Patient Records regulations: The Federal rules restrict any use of the information to criminally investigate or prosecute any alcohol or drug abuse patient.[facility]In the event this information is protected by the Federal Confidentiality of Alcohol and Drug Abuse Patient Records regulations: The Federal rules restrict any use of the information to criminally investigate or prosecute any alcohol or drug abuse patient.[facility]In the event this information is protected by the Federal Confidentiality of Alcohol and Drug Abuse Patient Records regulations: The Federal rules restrict any use of the information to criminally investigate or prosecute any alcohol or drug abuse patient.[facility]In the event this information is protected by the Federal Confidentiality of Alcohol and Drug Abuse Patient Records regulations: The Federal rules restrict any use of the information to criminally investigate or prosecute any alcohol or drug abuse patient.[facility]In the event this information is protected by the Federal Confidentiality of Alcohol and Drug Abuse Patient Records regulations: The Federal rules restrict any use of the information to criminally investigate or prosecute any alcohol or drug abuse patient.[facility] CenterIn the event this information is protected by the Federal Confidentiality of Alcohol and Drug Abuse Patient Records regulations: The Federal rules restrict any use of the information to criminally investigate or prosecute any alcohol or drug abuse patient.[facility] CenterIn the event this information is protected by the Federal Confidentiality of Alcohol and Drug Abuse Patient Records regulations: The Federal rules restrict any use of the information to criminally investigate or prosecute any alcohol or drug abuse patient.[facility] CenterIn the event this information is protected by the Federal Confidentiality of Alcohol and Drug Abuse Patient Records regulations: The Federal rules restrict any use of the information to criminally investigate or prosecute any alcohol or drug abuse patient.[facility] CenterIn the event this information is protected by the Federal Confidentiality of Alcohol and Drug Abuse Patient Records regulations: The Federal rules restrict any use of the information to criminally investigate or prosecute any alcohol or drug abuse patient.[facility] CenterIn the event this information is protected by the Federal Confidentiality of Alcohol and Drug Abuse Patient Records regulations: The Federal rules restrict any use of the information to criminally investigate or prosecute any alcohol or drug abuse patient.[facility] CenterIn the event this information is protected by the Federal Confidentiality of Alcohol and Drug Abuse Patient Records regulations: The Federal rules restrict any use of the information to criminally investigate or prosecute any alcohol or drug abuse patient.[facility] CenterIn the event this information is protected by the Federal Confidentiality of Alcohol and Drug Abuse Patient Records regulations: The Federal rules restrict any use of the information to criminally investigate or prosecute any alcohol or drug abuse patient.[facility] CenterIn the event this information is protected by the Federal Confidentiality of Alcohol and Drug Abuse Patient Records regulations: The Federal rules restrict any use of the information to criminally investigate or prosecute any alcohol or drug abuse patient.[facility] CenterIn the event this information is protected by the Federal Confidentiality of Alcohol and Drug Abuse Patient Records regulations: The Federal rules restrict any use of the information to criminally investigate or prosecute any alcohol or drug abuse patient.[facility] CenterIn the event this information is protected by the Federal Confidentiality of Alcohol and Drug Abuse Patient Records regulations: The Federal rules restrict any use of the information to criminally investigate or prosecute any alcohol or drug abuse patient.[facility] CenterIn the event this information is protected by the Federal Confidentiality of Alcohol and Drug Abuse Patient Records regulations: The Federal rules restrict any use of the information to criminally investigate or prosecute any alcohol or drug abuse patient.[facility] CenterIn the event this information is protected by the Federal Confidentiality of Alcohol and Drug Abuse Patient Records regulations: The Federal rules restrict any use of the information to criminally investigate or prosecute any alcohol or drug abuse patient.[facility] CenterIn the event this information is protected by the Federal Confidentiality of Alcohol and Drug Abuse Patient Records regulations: The Federal rules restrict any use of the information to criminally investigate or prosecute any alcohol or drug abuse patient.[facility] CenterIn the event this information is protected by the Federal Confidentiality of Alcohol and Drug Abuse Patient Records regulations: The Federal rules restrict any use of the information to criminally investigate or prosecute any alcohol or drug abuse patient.[facility] CenterIn the event this information is protected by the Federal Confidentiality of Alcohol and Drug Abuse Patient Records regulations: The Federal rules restrict any use of the information to criminally investigate or prosecute any alcohol or drug abuse patient.[facility] CenterIn the event this information is protected by the Federal Confidentiality of Alcohol and Drug Abuse Patient Records regulations: The Federal rules restrict any use of the information to criminally investigate or prosecute any alcohol or drug abuse patient.[facility] CenterIn the event this information is protected by the Federal Confidentiality of Alcohol and Drug Abuse Patient Records regulations: The Federal rules restrict any use of the information to criminally investigate or prosecute any alcohol or drug abuse patient.[facility] CenterIn the event this information is protected by the Federal Confidentiality of Alcohol and Drug Abuse Patient Records regulations: The Federal rules restrict any use of the information to criminally investigate or prosecute any alcohol or drug abuse patient.[facility] CenterIn the event this information is protected by the Federal Confidentiality of Alcohol and Drug Abuse Patient Records regulations: The Federal rules restrict any use of the information to criminally investigate or prosecute any alcohol or drug abuse patient.[facility] CenterIn the event this information is protected by the Federal Confidentiality of Alcohol and Drug Abuse Patient Records regulations: The Federal rules restrict any use of the information to criminally investigate or prosecute any alcohol or drug abuse patient.[facility] CenterIn the event this information is protected by the Federal Confidentiality of Alcohol and Drug Abuse Patient Records regulations: The Federal rules restrict any use of the information to criminally investigate or prosecute any alcohol or drug abuse patient.[facility] CenterIn the event this information is protected by the Federal Confidentiality of Alcohol and Drug Abuse Patient Records regulations: The Federal rules restrict any use of the information to criminally investigate or prosecute any alcohol or drug abuse patient.[facility] CenterIn the event this information is protected by the Federal Confidentiality of Alcohol and Drug Abuse Patient Records regulations: The Federal rules restrict any use of the information to criminally investigate or prosecute any alcohol or drug abuse patient.[facility] CenterIn the event this information is protected by the Federal Confidentiality of Alcohol and Drug Abuse Patient Records regulations: The Federal rules restrict any use of the information to criminally investigate or prosecute any alcohol or drug abuse patient.[facility] CenterIn the event this information is protected by the Federal Confidentiality of Alcohol and Drug Abuse Patient Records regulations: The Federal rules restrict any use of the information to criminally investigate or prosecute any alcohol or drug abuse patient.[facility] CenterIn the event this information is protected by the Federal Confidentiality of Alcohol and Drug Abuse Patient Records regulations: The Federal rules restrict any use of the information to criminally investigate or prosecute any alcohol or drug abuse patient.[facility] CenterIn the event this information is protected by the Federal Confidentiality of Alcohol and Drug Abuse Patient Records regulations: The Federal rules restrict any use of the information to criminally investigate or prosecute any alcohol or drug abuse patient.[facility] CenterIn the event this information is protected by the Federal Confidentiality of Alcohol and Drug Abuse Patient Records regulations: The Federal rules restrict any use of the information to criminally investigate or prosecute any alcohol or drug abuse patient.[facility] CenterIn the event this information is protected by the Federal Confidentiality of Alcohol and Drug Abuse Patient Records regulations: The Federal rules restrict any use of the information to criminally investigate or prosecute any alcohol or drug abuse patient.[facility] CenterIn the event this information is protected by the Federal Confidentiality of Alcohol and Drug Abuse Patient Records regulations: The Federal rules restrict any use of the information to criminally investigate or prosecute any alcohol or drug abuse patient.[facility] CenterIn the event this information is protected by the Federal Confidentiality of Alcohol and Drug Abuse Patient Records regulations: The Federal rules restrict any use of the information to criminally investigate or prosecute any alcohol or drug abuse patient.[facility] CenterIn the event this information is protected by the Federal Confidentiality of Alcohol and Drug Abuse Patient Records regulations: The Federal rules restrict any use of the information to criminally investigate or prosecute any alcohol or drug abuse patient.[facility] CenterIn the event this information is protected by the Federal Confidentiality of Alcohol and Drug Abuse Patient Records regulations: The Federal rules restrict any use of the information to criminally investigate or prosecute any alcohol or drug abuse patient.[facility] CenterIn the event this information is protected by the Federal Confidentiality of Alcohol and Drug Abuse Patient Records regulations: The Federal rules restrict any use of the information to criminally investigate or prosecute any alcohol or drug abuse patient.[facility] CenterIn the event this information is protected by the Federal Confidentiality of Alcohol and Drug Abuse Patient Records regulations: The Federal rules restrict any use of the information to criminally investigate or prosecute any alcohol or drug abuse patient.[facility] CenterIn the event this information is protected by the Federal Confidentiality of Alcohol and Drug Abuse Patient Records regulations: The Federal rules restrict any use of the information to criminally investigate or prosecute any alcohol or drug abuse patient.[facility] Reason for Visit (unrecogniz ed section and [...] outreach Reason Comments Ambulatory Social Work Community [facility] e Reason Onset Date Comments [...] Comments Population Health Navigation Outreach 01/03/2025 [facility] Reason Onset Date [...] Care Teams (unrecognized sec tion and content) Stock Drier Tender Relationship Specialty Start Date End Date Ricci Cole MD [address] [place], [place] [id number] PCP - General Family Practice 09/19/16 Toña Sawyer Endocrinology 08/11/19 Sho Hebert, executive vice president and chief financial officerClinical Director 10/22/21 Stock Drier Tender Relationship Specialty Start Date End Date Ricci Cole MD [address] [place], [place] [address] PCP - General Family Practice 09/19/16 Toña Sawyer Endocrinology 08/11/19 Sho Hebert, executive vice president and chief financial officerClinical Director 10/22/21 Stock Drier Tender Relationship Specialty Start Date End Date Ricci Cole MD [address] [place], [place] [address]491 PCP - General Family Practice 09/19/16 Toña Sawyer Endocrinology 08/11/19 Sho Hebert, executive vice president and chief financial officerClinical Director 10/22/21 Stock Drier Tender Relationship Specialty Start Date End Date Ricci Cole MD [address] [place], [place] [address]121 PCP - General Family Practice 09/19/16 Toña Sawyer Endocrinology 08/11/19 Sho Hebert executive vice president and chief financial officerClinical Director 10/22/21 Stock Drier Tender Relationship Specialty Start Date End Date Ricci Cole MD [address] [place], [place] 114901 PCP - General Family Practice 09/19/16 Duke Sawyerpana Endocrinology 08/11/19 Sho Hebert executive vice president and chief financial officerClinical Director 10/22/21 Stock Drier Tender Relationship Specialty Start Date End Date Ricci Cole MD [address] [place] [address] PCP - General Family Practice 09/19/16 Duke Sawyerpana Endocrinology 08/11/19 Sho Hebert, executive vice president and chief financial officerClinical Director 10/22/21 Stock Drier Tender Relationship Specialty Start Date End Date Ricci Cole MD [address] [place] [address] PCP - General Family Practice 09/19/16 Duke Sawyerpana Endocrinology 08/11/19 Sho Hebert executive vice president and chief financial officerClinical Director 10/22/21 Stock Drier Tender Relationship Specialty Start Date End Date Ricci Cole MD [address] [place], [place] [address] PCP - General Family Practice 09/19/16 Duke Swayerpana Endocrinology 08/11/19 Sho Hebert, executive vice president and chief financial officerClinical Director 10/22/21 Stock Drier Tender Relationship Specialty Start Date End Date Ricci Cole MD [address] [place], [place] [id number] PCP - General Family Practice 09/19/16 Digna Toña Endocrinology 08/11/19 Sho Hebert, NITIN [address] [place] [address] Clinical Director 10/22/21 Stock Drier Tender Relationship Specialty Start Date End Date Ricci Cole MD [address] [place], [place] 159751 PCP - General Family Practice 09/19/16 Digna Toña Endocrinology 08/11/19 Sho Hebert, NITIN [address] [place] [address] Clinical Director 10/22/21 Stock Drier Tender Relationship Specialty Start Date End Date Ricci Cole MD [address] [place], [place] 286051 PCP - General Family Practice 09/19/16 Digna Toña Endocrinology 08/11/19 Sho Hebert RN [address] [place], [place] [id number] Clinical Director 10/22/21 Stock Drier Tender Relationship Specialty Start Date End Date Ricci Cole MD [address] [place] [address] PCP - General Family Practice 09/19/16 Toña Sawyer Endocrinology 08/11/19 Sho Hebert RN [address] [place], [place] [id number] Clinical Director 10/22/21 Stock Drier Tender Relationship Specialty Start Date End Date Ricci Cole MD [address] [place] [address] PCP - General Family Practice 09/19/16 Digna Toña Endocrinology 08/11/19 Sho Hebert RN [address] [place], [place] [id number] Clinical Director 10/22/21 Stock Drier Tender Relationship Specialty Start Date End Date Ricci Cole MD [address] [place] [address] PCP - General Family Practice 09/19/16 Digna Toña Endocrinology 08/11/19 Sho Hebert RN [address] [place], [place] [id number] Clinical Director 10/22/21 Stock Drier Tender Relationship Specialty Start Date End Date Ricci Cole MD [address] [place] [address] PCP - General Family Practice 09/19/16 Toña Sawyer Endocrinology 08/11/19 Sho Hebert RN [address] [facility], [place] [id number] Clinical Director 10/22/21 Stock Drier Tender Relationship Specialty Start Date End Date Ricci Cole MD [address] [place] [address] PCP - General Family Practice 09/19/16 Toña Sawyer Endocrinology 08/11/19 Sho Hebert RN [address] [facility], [place] [id number] Clinical Director 10/22/21 Stock Drier Tender Relationship Specialty Start Date End Date Ricci Cole MD [address] [place] [address] PCP - General Family Practice 09/19/16 Toña Sawyer Endocrinology 08/11/19 Sho Hebert RN [address] [facility] [place] [address] Clinical Director 10/22/21 Stock Drier Tender Relationship Specialty Start Date End Date Ricci Cole MD [address] [place] [address] PCP - General Family Practice 09/19/16 Toña Sawyer Endocrinology 08/11/19 Sho Hebert RN [address] [facility], [place] [id number] Clinical Director 10/22/21 Stock Drier Tender Relationship Specialty Start Date End Date Ricci Cole MD [address] [place] [address] PCP - General Family Practice 09/19/16 Toña Sawyer Endocrinology 08/11/19 Sho Hebert RN [address] [place], [place] [id number] Clinical Director 10/22/21 Stock Drier Tender Relationship Specialty Start Date End Date Ricci Cole MD [address] [place], [place] 838551 PCP - General Family Practice 09/19/16 Toña Sawyer MD Endocrinology 08/11/19 Sho Hebert RN [address] [place], [place] [id number] Clinical Director 10/22/21 Stock Drier Tender Relationship Specialty Start Date End Date Ricci Cole MD [address] [place] [address] PCP - General Family Practice 09/19/16 Toña Sawyer MD Endocrinology 08/11/19 Sho Hebert RN [address] [facility], [place] 0324631 Clinical Director 10/22/21 Stock Drier Tender Relationship Specialty Start Date End Date Ricci Cole MD [address] [place], [place] 340131 PCP - General Family Practice 09/19/16 Toña Sawyer MD Endocrinology 08/11/19 Sho Hebert RN [address] [place], [place] [id number] Clinical Director 10/22/21 Stock Drier Tender Relationship Specialty Start Date End Date Ricci Cole MD [address] [place], [place] 767491 PCP - General Family Practice 09/19/16 Toña Sawyer MD Endocrinology 08/11/19 Sho Hebert RN [address] [place], [place] [id number] Clinical Director 10/22/21 Stock Drier Tender Relationship Specialty Start Date End Date Ricci Cole MD [address] [place], [place] 907041 PCP - General Family Medicine 09/19/16 Toña Sawyer MD Endocrinology 08/11/19 Sho Hebert RN [address] [place], [place] [id number] Clinical Director 10/22/21 Stock Drier Tender Relationship Specialty Start Date End Date Ricci Cole MD [address] [place] [address] PCP - General Family Medicine 09/19/16 Toña Sawyer MD Endocrinology 08/11/19 Sho Hebert RN [address] [place], [place] 8062531 Clinical Director 10/22/21 Stock Drier Tender Relationship Specialty Start Date End Date Ricci Cole MD [address] [place], [place] [id number] PCP - General Family Medicine 09/19/16 Toña Sawyer MD Endocrinology 08/11/19 Sho Hebert RN [address] [place] [address] Clinical Director 10/22/21 Dylan Mac DO [address] [address] Building Operator Gastroenterology 06/19/22 Stock Drier Tender Relationship Specialty Start Date End Date Ricci Cole MD [address] [place], [place] 812201 PCP - General Family Medicine 09/19/16 Toña Sawyer MD Endocrinology 08/11/19 Sho Hebert RN [address] [place] [address] Clinical Director 10/22/21 Dylan Mac DO [address]LVAROJose R [address] [address] Building Operator Gastroenterology 06/19/22 Stock Drier Tender Relationship Specialty Start Date End Date Ricci Cole MD [address] [place], [place] 697131 PCP - General Family Medicine 09/19/16 Toña Sawyer MD Endocrinology 08/11/19 Sho Hebert RN [address] [place] [address] Clinical Director 10/22/21 Dylan Mac DO [address] [id number] Building Operator Gastroenterology 06/19/22 Stock Drier Tender Relationship Specialty Start Date End Date Ricci Cole MD [address] [place], [place] [id number] PCP - General Family Medicine 09/19/16 Toña Sawyer MD Endocrinology 08/11/19 Dylan Mac, DO [address] [place] [address] Building Operator Gastroenterology 06/19/22 Herson Ashford RN [address] [place], [place] 8195931 Clinical Director [facility] 10/22/21 Stock Drier Tender Relationship Specialty Start Date End Date Ricci Cole MD [address] [place], [place] 629191 PCP - General Family Medicine 09/19/16 Toña Sawyer MD Endocrinology 08/11/19 Dylan Mac, DO [address] [place] [address] Building Operator Gastroenterology 06/19/22 Herson Ashford RN [address] [place] [address] Clinical Director [facility] 10/22/21 Stock Drier Tender Relationship Specialty Start Date End Date Ricci Cole MD [address] [facility] [place] [address] PCP - General Family Medicine 09/19/16 Toña Sawyer MD [address] [facility] [place] [address] Endocrinology 08/11/19 Dylan Mac, [address] [place] [address] Building Operator Gastroenterology 06/19/22 Herson Ashford RN [address] [place] [address] Clinical Director Family Medicine 10/22/21 Stock Drier Tender Relationship Specialty Start Date End Date Ricci Cole MD [address] [facility], [place] 975361 PCP - General Family Medicine 09/19/16 Toña Sawyer MD [address] [facility] [place] [address] Endocrinology 08/11/19 FriendDylan, DO [address] [facility] [address] [place] [address] Building Operator Gastroenterology 06/19/22 Herson Ashford, NITIN [address] [place] [address] Clinical Director Family Medicine 10/22/21 Stock Drier Tender Relationship Specialty Start Date End Date Ricci Cole MD [address] [facility] [place] [address] PCP - General Family Medicine 09/19/16 Toña Sawyer MD [address] [facility] [place] [address] Endocrinology 08/11/19 FriendDylan, DO [address] [facility] [address] [place] [address] Building Operator Gastroenterology 06/19/22 Herson Ashford, NITIN [address] [place] [address] Clinical Director Family Medicine 10/22/21 Stock Drier Tender Relationship Specialty Start Date End Date Ricci Cole MD [address] [facility], [place] [id number] PCP - General Family Medicine 09/19/16 Toña Sawyer MD [address] [facility] [place] [address] Endocrinology 08/11/19 Dylan Mac, DO [address] [facility] [address] [place] [address] Building Operator Gastroenterology 06/19/22 Herson Ashford, NITIN [address] [place], [place] [id number] Clinical Director Family Medicine 06/26/22 Stock Drier Tender Relationship Specialty Start Date End Date Ricci Cole MD [address] [facility] [place] [address] PCP - General Family Medicine 09/19/16 Toña Sawyer MD [address] [facility] [place] [address] Endocrinology 08/11/19 Dylan Mac, DO [address] [place] [address] Building Operator Gastroenterology 06/19/22 Herson Ashford RN [address] [place], [place] [id number] Clinical Director Family [facility] 06/26/22 Stock Drier Tender Relationship Specialty Start Date End Date Ricci Cole MD [address] [facility] [place] [address] PCP - General Family Medicine 09/19/16 Toña Sawyer MD [address] [facility] [place] [address] Endocrinology 08/11/19 Dylan Mac, DO [address] [facility] [address] [place] [address] Building Operator Gastroenterology 06/19/22 Herson Ashford, NITIN [address] [place], [place] [id number] Clinical Director Family Medicine 06/26/22 Stock Drier Tender Relationship Specialty Start Date End Date Ricci Cole MD [address] [facility] [place] [address] PCP - General Family Medicine 09/19/16 Toña Sawyer MD [address] [facility] [place] [address] Endocrinology 08/11/19 Dylan Mac, [address] [place] [address] Building Operator Gastroenterology 06/19/22 Herson Ashford RN [address] [place] [address] Clinical Director Family Medicine 06/26/22 Stock Drier Tender Relationship Specialty Start Date End Date Ricci Cole MD [address] [facility] [place] [address] PCP - General Family Medicine 09/19/16 Toña Sawyer MD [address] [facility] [place] [address] Endocrinology 08/11/19 Dylan Mac DO [address] [place] [address] Building Operator Gastroenterology 06/19/22 Herson Ashford RN [address] [place] [address] Clinical Director Family Medicine 06/26/22 Stock Drier Tender Relationship Specialty Start Date End Date Ricci Cole MD [address] [facility] [place] [address] PCP - General Family Medicine 09/19/16 Toña Sawyer MD [address] [facility] [place] [address] Endocrinology 08/11/19 Dylan Mac DO [address] [place] [address] Building Operator Gastroenterology 06/19/22 Herson Ashford RN [address] [place] [address] Clinical Director [facility] 06/26/22 Stock Drier Tender Relationship Specialty Start Date End Date Ricci Cole MD [address] [place], [place] [address]64[address] PCP - General Family Medicine 09/19/16 Toña Sawyer MD [address] [place], [place] [address]13[address] Endocrinology 08/11/19 Dylan Mac DO [address] [place] [address] Building Operator Gastroenterology 06/19/22 Herson Ashford RN [address] [place] [address] Clinical Director [facility] 06/26/22 Team Status: Active Member Role Status Dates Dr. Ricci Cole MD Family Provider Active Dr. Ricci Cole MD Primary Care Provider Active Team Status: Inactive Member Role Status Dates Dr. Ricci Cole MD Primary Care Provider Active Dr. Barrett Powell DO Emergency Provider Active Stock Drier Tender Relationship Specialty Start Date End Date Ricci Cole MD [address] [place], [place] [id number] PCP - General Family Medicine 09/19/16 Toña Sawyer MD [address] [place] [address] Endocrinology 08/11/19 Dylan Mac DO [address] [address] Building Operator Gastroenterology 06/19/22 Herson Ashford RN [address] [place] [address] Clinical Director Family Medicine 06/26/22 Stock Drier Tender Relationship Specialty Start Date End Date Ricci Cole MD [address] [facility] [place] [address] PCP - General Family Medicine 09/19/16 Toña Sawyer MD [address] [facility] [place] [address] Endocrinology 08/11/19 Dylan Mac, DO [address] [place] [address] Building Operator Gastroenterology 06/19/22 Herson Ashford RN [address] [place], [place] [id number] Clinical Director Family Medicine 06/26/22 Stock Drier Tender Relationship Specialty Start Date End Date Ricci Cole MD [address] [facility] [place] [address] PCP - General Family Medicine 09/19/16 Toña Sawyer MD [address] [facility] [place] [address] Endocrinology 08/11/19 Dylan Mac, DO 176 [facility] [address] [place] [address] Building Operator Gastroenterology 06/19/22 Herson Ashford RN [address] [place], [place] [id number] Clinical Director Family Medicine 06/26/22 Stock Drier Tender Relationship Specialty Start Date End Date Ricci Cole MD [address] [facility] [place] [address] PCP - General Family Medicine 09/19/16 Toña Sawyer MD [address] [facility] [place] [address] Endocrinology 08/11/19 Dylan Mac DO [address] REG[address] FORMAN [address] [place] [address] Building Operator Gastroenterology 06/19/22 Herson Ashford RN [address] [place] [address] Clinical Director [facility] 06/26/22 Stock Drier Tender Relationship Specialty Start Date End Date Ricci Cole MD [address] [facility] [place] [address] PCP - General Family Medicine 09/19/16 Toña Sawyer MD [address] [place] [address] Endocrinology 08/11/19 Dylan Mac DO [address] [address] Building Operator Gastroenterology 06/19/22 Herson Ashford RN [address] [place] [address] Clinical Director [facility] 06/26/22 Stock Drier Tender Relationship Specialty Start Date End Date Ricci Cole MD [address] [place] [address] PCP - General Family Medicine 09/19/16 Toña Sawyer MD [address] [place] [address] Endocrinology 08/11/19 Dylan Mac DO [address] 700981 Building Operator Gastroenterology 06/19/22 Herson Ashford RN [address] [place] [address] Clinical Director Family Medicine 06/26/22 Stock Drier Tender Relationship Specialty Start Date End Date Ricci Cole MD [address] [facility], [place] 927801 PCP - General Family Medicine 09/19/16 Toña Sawyer MD [address] [place] [address] Endocrinology 08/11/19 Dylan Mac DO [address]MAN [address], [place] 4[address]01 Building Operator Gastroenterology 06/19/22 Herson Ashford, NITIN [address] [place] [address] Clinical Director Family Medicine 06/26/22 Stock Drier Tender Relationship Specialty Start Date End Date Ricci Cole MD [address] [facility] [place] [address] PCP - General Family Medicine 09/19/16 Toña Sawyer MD [address] [place] [address] Endocrinology 08/11/19 Dylan Mac DO 176 REGAN FORMAN [address] [place] [address] Building Operator Gastroenterology 06/19/22 Herson Ashford RN [address] [place] [address] Clinical Director Family Medicine 06/26/22 Stock Drier Tender Relationship Specialty Start Date End Date Ricci Cole MD [address] [place], [place] 266321 PCP - General Family Medicine 09/19/16 Toña Sawyer MD [address] [facility] [place] [address] Endocrinology 08/11/19 Dylan Mac DO [address] FORMAN [address] [place] [address] Building Operator Gastroenterology 06/19/22 Herson Ashford RN [address] [place] [address] Clinical Director Family Medicine 06/26/22 Stock Drier Tender Relationship Specialty Start Date End Date Ricci Cole MD [address] [place] [address] PCP - General Family Medicine 09/19/16 Toña Sawyer MD [address] [place] [address] Endocrinology 08/11/19 Dylan Mac DO [address] REG[address] FORMAN [address] [place] [address] Building Operator Gastroenterology 06/19/22 Herson Ashford RN [address] [place] [address] Clinical Director Family Medicine 06/26/22 Stock Drier Tender Relationship Specialty Start Date End Date Ricci Cole MD [address] [place], [place] 015411 PCP - General Family Medicine 09/19/16 Toña Sawyer MD [address] [facility] [place] [address] Endocrinology 08/11/19 Dylan Mac DO [address] MEJIA [address] [place] [address], [place] 075681 Building Operator Gastroenterology 06/19/22 Herson Ashford RN [address] [place], [place] [id number] Clinical Director [facility] 06/26/22 Stock Drier Tender Relationship Specialty Start Date End Date Ricci Cole MD [address] [facility], [place] 413391 PCP - General Family Medicine 09/19/16 Toña Sawyer MD [address] [place] [address] Endocrinology 08/11/19 Dylan Mac DO 176 [address] [address] Building Operator Gastroenterology 06/19/22 Herson Ashford RN [address] [place] [address] Clinical Director [facility] 06/26/22 Stock Drier Tender Relationship Specialty Start Date End Date Ricci Cole MD [address] [place], [place] 578471 PCP - General Family Medicine 09/19/16 Toña Sawyer MD [address] [facility] [place] [address] Endocrinology 08/11/19 Dylan Mac DO 176 [address] [id number] Building Operator Gastroenterology 06/19/22 Herson Ashford RN [address] [place] [address] Clinical Director Family Medicine 06/26/22 Stock Drier Tender Relationship Specialty Start Date End Date Ricci Cole MD [address] [place], [place] 839151 PCP - General Family Medicine 09/19/16 Toña Sawyer MD [address] [place] [address] Endocrinology 08/11/19 Dylan Mac DO 176 REG[address] MEJIA [address] [place] [address] 765111 Building Operator Gastroenterology 06/19/22 Herson Ashford, NITIN [address] [place] [address] Clinical Director Family Medicine 06/26/22 Stock Drier Tender Relationship Specialty Start Date End Date Ricci Cole MD [address] [place] [address] PCP - General Family Medicine 09/19/16 Toña Sawyer MD [address] [place] [address] Endocrinology 08/11/19 Dylan Mac DO 176 REG[address] MEJIA [address] [place] [address], [place] 120751 Building Operator Gastroenterology 06/19/22 Herson Ashford RN [address] [place] [address] Clinical Director Family Medicine 06/26/22 Stock Drier Tender Relationship Specialty Start Date End Date Ricci Cole MD [address] [place], [place] 863031 PCP - General Family Medicine 09/19/16 Toña Sawyer MD [address] [facility] [place] [address] Endocrinology 08/11/19 Dylan Mac DO [address], [place] 05[address]31 Building Operator Gastroenterology 06/19/22 Herson Ashford RN [address] [place] [address] Clinical Director Family Medicine 06/26/22 Stock Drier Tender Relationship Specialty Start Date End Date Ricci Cole MD [address] [place] [address] PCP - General Family Medicine 09/19/16 Toña Sawyer MD [address] [place] [address] Endocrinology 08/11/19 Dylan Mac DO [address] [place] [address] Building Operator Gastroenterology 06/19/22 Herson Ashford RN [address] [place] [address] Clinical Director Family Medicine 06/26/22 Stock Drier Tender Relationship Specialty Start Date End Date Ricci Cole MD [address] [place], [place] 969421 PCP - General Family Medicine 09/19/16 Toña Sawyer MD [address] [place] [address] Endocrinology 08/11/19 Dylan Mac DO [address] REG[address] AVJose R MEJIA [address] [place], [place] 978711 Building Operator Gastroenterology 06/19/22 Herson Ashford RN [address] [place], [place] 3676731 Clinical Director [facility] 06/26/22 Stock Drier Tender Relationship Specialty Start Date End Date Ricci Cole MD [address] [facility] [place] [address] PCP - General Family Medicine 09/19/16 Toña Sawyer MD [address] [place] [address] Endocrinology 08/11/19 Dylan Mac DO [address] MEJIA [address] [place] [address], [place] [address] Building Operator Gastroenterology 06/19/22 Herson Ashford RN [address] [place] [address] Clinical Director [facility] 06/26/22 Stock Drier Tender Relationship Specialty Start Date End Date Ricci Cole MD [address] [place] [address] PCP - General Family Medicine 09/19/16 Toña Sawyer MD [address] [facility], [place] 827951 Endocrinology 08/11/19 Dylan Mac DO [address]JIA [address] [place], [place] 44154691 Building Operator Gastroenterology 06/19/22 Herson Ashford RN [address] [place] [address] Clinical Director Family Medicine 06/26/22 Team Status: Active Member Role Status Dates Dr. Ricci Cole MD Primary Care Provider Active Dr. Audie Walker DO Emergency Provider Active Dr. Leeanen Barron MD Admit Provider, Attending Provid er [...] Sho Yi , DO Attending Provider Active Stock Drier Tender Relationship Specialty Start Date End Date Ricci Cole MD [address] [place], [place] 38636691 PCP - General Family Medicine 09/19/16 Toña Sawyer MD [address] [place], [place] 69882691 Endocrinology 08/11/19 Dylan Mac DO [employer] REGAN DICKSON [address] [address] Building Operator Gastroenterology 06/19/22 Herson Ashford, RN [address] [place] [id number] Clinical Director Family Medicine 06/26/22 Stock Drier Tender Relationship Specialty Start Date End Date Ricci Cole MD [address] [place], [place] 42813691 PCP - General Family Medicine 09/19/16 Toña Sawyer MD [address] [place], [place] 48069691 Endocrinology 08/11/19 Dylan Mac DO [address] REG[address] AVJose R MEJIA [address] [place] [address], [place] 343841 Building Operator Gastroenterology 06/19/22 Herson Ashford RN [address] [place] [id number] Clinical Director Family Medicine 06/26/22 Stock Drier Tender Relationship Specialty Start Date End Date Ricci Cole MD [address] [place], [place] 630821 PCP - General Family Medicine 09/19/16 Toña Sawyer MD [address] [place], [place] 12129691 Endocrinology 08/11/19 Dylan Mac DO 176 [address] MEJIA [address] [place] [address], [place] 758751 Building Operator Gastroenterology 06/19/22 Herson Ashford RN [address] [place] [phone] Clinical Director Family Medicine 06/26/22 Stock Drier Tender Relationship Specialty Start Date End Date Ricci Cole MD [address] [place], [place] 856441 PCP - General Family Medicine 09/19/16 Toña Sawyer MD [address] [place], [place] 80318691 Endocrinology 08/11/19 Dylan Mac DO 176 REGAN AVJose R [address] [id number] Building Operator Gastroenterology 06/19/22 Herson Ashford RN [address] [place], [place] 7356631 Clinical Director Family Medicine 06/26/22 Stock Drier Tender Relationship Specialty Start Date End Date Ricci Cole MD [address] [place] [address] PCP - General Family Medicine 09/19/16 Toña Sawyer MD [address] [place] [address] Endocrinology 08/11/19 Dylan Mac DO [address] REG[address] MEJIA [address] [place] [address] 618361 Building Operator Gastroenterology 06/19/22 Hesron Ashford RN [address] [place] [address] Clinical Director Family [facility] 06/26/22 Stock Drier Tender Relationship Specialty Start Date End Date Ricci Cole MD [address] [place] [address] PCP - General Family Medicine 09/19/16 Toña Sawyer MD [address] [place] [address] Endocrinology 08/11/19 Dylan Mac DO 176 [address] MEJIA [address] [place], [place] 908671 Building Operator Gastroenterology 06/19/22 Herson Ashford RN [address] [place] [address] Clinical Director Family Medicine 06/26/22 Stock Drier Tender Relationship Specialty Start Date End Date Ricci Cole MD [address] [place] [address] PCP - General Family Medicine 09/19/16 Toña Sawyer MD [address] [place] [address] Endocrinology 08/11/19 Dylan Mac DO 176 [address] FOR[address] 616721 Building Operator Gastroenterology 06/19/22 Herson Ashford RN [address] [place] [phone] Clinical Director Family Medicine 06/26/22 Stock Drier Tender Relationship Specialty Start Date End Date Ricci Cole MD [address] [place] [address] PCP - General Family Medicine 09/19/16 Toña Sawyer MD [address] [place] [address] Endocrinology 08/11/19 Dylan Mac DO [address] 397111 Building Operator Gastroenterology 06/19/22 Herson Ashford RN [address] [place] [address] Clinical Director Family Medicine 06/26/22 Stock Drier Tender Relationship Specialty Start Date End Date Ricci Cole MD [address] [place], [place] 44132691 PCP - General Family Medicine 09/19/16 Toña Sawyer MD [address] [place] [address] Endocrinology 08/11/19 Dylan Mac DO 176 REGAN AVJose R [address]JIA [address] [place], [place] 618571 Building Operator Gastroenterology 06/19/22 Herson Ashford RN [address] [place] [address] Clinical Director Family Medicine 06/26/22 Stock Drier Tender Relationship Specialty Start Date End Date Ricci Cole MD [address] [place] [address] PCP - General Family Medicine 09/19/16 Toña Sawyer MD [address] [place] [address] Endocrinology 08/11/19 Dylan Mac DO 176 REGAN MEJIA [address] [place] [address] [id number] Building Operator Gastroenterology 06/19/22 Herson Ashford RN [address] [place] [phone] Clinical Director Family Medicine 06/26/22 Stock Drier Tender Relationship Specialty Start Date End Date Ricci Cole MD [address] [place], [place] 108741 PCP - General Family Medicine 09/19/16 Toña Sawyer MD [address] [place], [place] 20304691 Endocrinology 08/11/19 Dylan Mac DO 176 REGAN AVJose R MEJIA [address] [place], [place] 89657691 Building Operator Gastroenterology 06/19/22 Herson Ashford RN [address] [place], [place] 1922331 Clinical Director Family Medicine 06/26/22 Stock Drier Tender Relationship Specialty Start Date End Date Ricci Cole MD [address] [place] [address] PCP - General Family Medicine 09/19/16 Toña Sawyer MD [address] [place] [address] Endocrinology 08/11/19 Dylan Mac DO [address] [place] [address] Building Operator Gastroenterology 06/19/22 Herson Ashford RN [address] [place] [address] Clinical Director Family Medicine 06/26/22 Stock Drier Tender Relationship Specialty Start Date End Date Ricci Cole MD [address] [place] [address] PCP - General Family Medicine 09/19/16 Toña Sawyer MD [address] [place] [address] Endocrinology 08/11/19 Dylan Mac DO [address] [place] [address] Building Operator Gastroenterology 06/19/22 Herson Ashford RN [address] [place] [address] Clinical Director Family Medicine 06/26/22 Stock Drier Tender Relationship Specialty Start Date End Date Ricci Cole MD [address] [facility] [place] [address] PCP - General Family Medicine 09/19/16 Toña Sawyer MD [address] [place] [address] Endocrinology 08/11/19 Dylan Mac DO 176 [address] FOR[address] 774961 Building Operator Gastroenterology 06/19/22 Herson Ashford RN [address] [place] [address] Clinical Director Family Medicine 06/26/22 Stock Drier Tender Relationship Specialty Start Date End Date Ricci Cole MD [address] [place] [address] PCP - General Family Medicine 09/19/16 Toña Sawyer MD [address] [place] [address] Endocrinology 08/11/19 Dylan Mac DO [address] [facility] [address] [address] Building Operator Gastroenterology 06/19/22 Herson Ashford RN [address] [place] [address] Clinical Director Family Medicine 06/26/22 Stock Drier Tender Relationship Specialty Start Date End Date Ricci Cole MD [address] [place], [place] 19353691 PCP - General Family Medicine 09/19/16 Toña Sawyer MD [address] [place] [address] Endocrinology 08/11/19 Dylan Mac DO [address]JIA [address] [place] [address] Building Operator Gastroenterology 06/19/22 Herson Ashford RN [address] [place] [address] Clinical Director Family Medicine 06/26/22 Stock Drier Tender Relationship Specialty Start Date End Date Ricci Cole MD [address] [place] [address] PCP - General Family Medicine 09/19/16 Toña Sawyer MD [address] [place] [address] Endocrinology 08/11/19 Dylan Mac DO 176 REGAN MEJIA [address] [place] [address] 942411 Building Operator Gastroenterology 06/19/22 Herson Ashford RN [address] [place] [address] Clinical Director Family Medicine 06/26/22 Stock Drier Tender Relationship Specialty Start Date End Date Ricci Cole MD [address] [place] [address] PCP - General Family Medicine 09/19/16 Toña Sawyer MD [address] [place], [place] 658261 Endocrinology 08/11/19 Dylan Mac DO 176 REGAN AVJose R MEJIA [address] [place] [address] [id number] Building Operator Gastroenterology 06/19/22 Herson Ashford, RN [address] [place] [address] Clinical Director Family Medicine 06/26/22 Stock Drier Tender Relationship Specialty Start Date End Date Ricci Cole MD [address] [place], [place] 99839691 PCP - General Family Medicine 09/19/16 Toña Sawyer MD [address] [place], [place] 079211 Endocrinology 08/11/19 Jacqui Etienne [address] [place], [place] 547131 Clinical Director Internal Medicine 01/04/21 Stock Drier Tender Relationship Specialty Start Date End Date Ricci Cole MD [address] [place], [place] 908071 PCP - General Family Medicine 09/19/16 Toña Sawyer MD [address] [place], [place] 150981 Endocrinology 08/11/19 Stock Drier Tender Relationship Specialty Start Date End Date Ricci Cole MD [address] [place], [place] 678841 PCP - General Family Medicine 09/19/16 Toña Sawyer MD [address] [place], [place] 92407691 Endocrinology 08/11/19 Dylan Mac DO [employer] REGAN FORMAN [address] [id number] Building Operator Gastroenterology 06/19/22 Herson Ashford RN [address] [place], [place] 1930031 Clinical Director Family Medicine 06/26/22 Stock Drier Tender Relationship Specialty Start Date End Date Ricci Cole MD [address] [place], [place] 689141 PCP - General Family Medicine 09/19/16 Toña Sawyer MD [address] [place] [address] Endocrinology 08/11/19 Dylan Mac DO [address] [place] [address] Building Operator Gastroenterology 06/19/22 Herson Ashford RN [address] [place] [address] Clinical Director Family Medicine 06/26/22 Stock Drier Tender Relationship Specialty Start Date End Date Ricci Cole MD [address] [place] [address] PCP - General Family Medicine 09/19/16 Toña Sawyer MD [address] [place] [address] Endocrinology 08/11/19 Dylan Mac DO 176 [address]IA [address] [place] [address] Building Operator Gastroenterology 06/19/22 Herson Ashford RN [address] [place] [address] Clinical Director Family Medicine 06/26/22 Stock Drier Tender Relationship Specialty Start Date End Date Ricci Cole MD [address] [facility] [place] [address] PCP - General Family Medicine 09/19/16 Toña Sawyer MD [address] [place] [address] Endocrinology 08/11/19 Dylan Mac DO [address] [place] [address] Building Operator Gastroenterology 06/19/22 Nanci Huber APRN.ALUM PLANT OPERATOR [address] [facility] [place] [address] Salesperson Jewelry Family Medicine 08/02/24 Smiley Melo APRN.ALUM PLANT OPERATOR [address] [facility] [place] [address] Salesperson Jewelry Family [facility] 08/02/24 Stock Drier Tender Relationship Specialty Start Date End Date Ricci Cole MD [address] [facility] [place] [address] PCP - General Family Medicine 09/19/16 Toña Sawyer MD [address] [facility] [place] [address] Endocrinology 08/11/19 Dylan Mac DO [address] [place], [place] 339311 Building Operator Gastroenterology 06/19/22 Nanci Huber APRN.ALUM PLANT OPERATOR [address]40 [place] [address] Critical Access Hospital 08/02/24 Smiley Melo PEDIATRIC ASSOCIATE.ALUM PLANT OPERATOR [address] [place], [place] 727111 [facility] 08/02/24 Stock Drier Tender Relationship Specialty Start Date End Date Ricci Cole MD [address] [place], [place] 604461 PCP - General Family Medicine 09/19/16 Toña Sawyer MD [address] [place] [address] Endocrinology 08/11/19 Dylan Mac DO [address] [place] [address] 827201 Building Operator Gastroenterology 06/19/22 Nanci Huber APRN.ALUM PLANT OPERATOR [address] [place] [address] [facility] 08/02/24 Smiley Melo PEDIATRIC ASSOCIATE.ALUM PLANT OPERATOR [address] [place] [address] [facility] 08/02/24 Stock Drier Tender Relationship Specialty Start Date End Date Ricci Cole MD [address] [place], [place] 477791 PCP - General Family Medicine 09/19/16 Toña Sawyer MD [address] [place] [address] Endocrinology 08/11/19 Dylan Mac DO [address] [place], [place] 970951 Building Operator Gastroenterology 06/19/22 Nanci Huber APRN.ALUM PLANT OPERATOR [address] [place] [address] Salesperson Jewel[employer] Family Medicine 08/02/24 Smiley Melo APRN.ALUM PLANT OPERATOR [address] [place] [address] Salesperson [employer] Family Medicine 08/02/24 Stock Drier Tender Relationship Specialty Start Date End Date Ricci Cole MD [address] [place] [address] PCP - General Family Medicine 09/19/16 Toña Sawyer MD [address] [place] [address] Endocrinology 08/11/19 Dylan Mac DO [address]MAN [facility] [address] [place] [address] Building Operator Gastroenterology 06/19/22 Nanci Huber APRN.ALUM PLANT OPERATOR [address] [place] [address] Salesperson [employer]el[employer] Family Medicine 08/02/24 Smiley Melo APRN.ALUM PLANT OPERATOR [address] [place] [address] Salesperson [employer] Family Medicine 08/02/24 Stock Drier Tender Relationship Specialty Start Date End Date Ricci Cole MD [address] [place] [address] PCP - General Family Medicine 09/19/16 Toña Sawyer MD [address] [facility] [place] [address] Endocrinology 08/11/19 Dylan Mac DO [address]AN [address] [address] Building Operator Gastroenterology 06/19/22 Nanci Huber APRN.ALUM PLANT OPERATOR 1740 [facility] [place] [address] Salesperson Jewelry Family [facility] 08/02/24 Smiley Melo APRN.ALUM PLANT OPERATOR [address] [facility] [place] [address] Salesperson Jewelry Family [facility] 08/02/24 Stock Drier Tender Relationship Specialty Start Date End Date Ricci Cole MD [address] [place] [address] PCP - General Family Medicine 09/19/16 Toña Sawyer MD [address] [facility] [place] [address] Endocrinology 08/11/19 Dylan Mac DO [address], [place] [address] Building Operator Gastroenterology 06/19/22 Nanci Huber APRN.ALUM PLANT OPERATOR [address] [place] [address] Salesperson [employer] Family Medicine 08/02/24 Smiley Melo, PEDIATRIC ASSOCIATE.ALUM PLANT OPERATOR [address] [place] [address] Salesperson [employer] Family Medicine 08/02/24 Stock Drier Tender Relationship Specialty Start Date End Date Ricci Cole MD [address] [place] [address] PCP - General Family Medicine 09/19/16 Toña Sawyer MD [address] [place] [address] Endocrinology 08/11/19 Dylan Mac DO [address] [place] [address] Building Operator Gastroenterology 06/19/22 Nanci Huber, PEDIATRIC ASSOCIATE.ALUM PLANT OPERATOR [address] [place] [address] Salesperson Jewelry Family [facility] 08/02/24 Smiley Melo, PEDIATRIC ASSOCIATE.ALUM PLANT OPERATOR [address] [place] [address] Salesperson Jewelry [facility] Medicine 08/02/24 Stock Drier Tender Relationship Specialty Start Date End Date Ricci Cole MD [address] [place] [address] PCP - General Family Medicine 09/19/16 Toña Sawyer MD [address] [place] [address] Endocrinology 08/11/19 Dylan Mac DO [address] [place] [address] Building Operator Gastroenterology 06/19/22 Nanci Huber APRN.ALUM PLANT OPERATOR [address] [place] [address] Salesperson [employer]el[employer] Family Medicine 08/02/24 Smiley Melo APRN.ALUM PLANT OPERATOR [address] [facility] [place] [address] Salesperson [employer]el[employer] Family Medicine 08/02/24 Stock Drier Tender Relationship Specialty Start Date End Date Ricci Cole MD [address] [facility] [place] [address] PCP - General Family Medicine 09/19/16 Toña Sawyer MD [address] [facility] [place] [address] Endocrinology 08/11/19 Dylan Mac DO [employer] REGANCARSON REAJose R [address], [place] 988591 Building Operator Gastroenterology 06/19/22 Nanci Huber APRN.ALUM PLANT OPERATOR [address] [place] [address] Salesperson [employer]el[employer] Family Medicine 08/02/24 Smiley Melo PEDIATRIC ASSOCIATE.ALUM PLANT OPERATOR [address] [facility] [place] [address] Salesperson [employer]el[employer] Family Medicine 08/02/24 Stock Drier Tender Relationship Specialty Start Date End Date Ricci Cole MD [address] [facility] [place] [address] PCP - General Family Medicine 09/19/16 Toña Sawyer MD [address] [facility] [place] [address] Endocrinology 08/11/19 Dylan Mac DO [address] [place], [place] 754111 Building Operator Gastroenterology 06/19/22 Nanci Huber APRN.ALUM PLANT OPERATOR 1740 [facility] [place] [address] Salesperson Jewelry [facility] 08/02/24 Smiley Melo APRN.ALUM PLANT OPERATOR [address] [facility] [place] [address] [facility] 08/02[facility] Stock Drier Tender Relationship Specialty Start Date End Date Ricci Cole MD [address] [facility] [place] [address] PCP - General Family Medicine 09/19/16 Toña Sawyer MD [address] [facility] [place] [address] Endocrinology 08/11/19 Dylan Mac DO [address] [place], [place] [id number] Building Operator Gastroenterology 06/19/22 Nanci Huber APRN.ALUM PLANT OPERATOR [address] [place] [address] [facility] 08/02/24 Smiley Melo APRN.ALUM PLANT OPERATOR [address] [facility] [place] [address] Salesperson Jewelry [facility] 08/02/24 Stock Drier Tender Relationship Specialty Start Date End Date Ricci Cole MD [address] [place] [address] PCP - General Family Medicine 09/19/16 Toña Sawyer MD [address] [place] [address] Endocrinology 08/11/19 Dylan Mac DO [address] [place] [id number] Building Operator Gastroenterology 06/19/22 Nanci Huber APRN.ALUM PLANT OPERATOR [address] [place] [address] Salesperson Jewelry [facility] 08/02/24 Smiley Melo APRN.ALUM PLANT OPERATOR [address] [place] [address] [facility] 08/02/24 Stock Drier Tender Relationship Specialty Start Date End Date Ricci Cole MD [address] [place] [address] PCP - General Family Medicine 09/19/16 Toña Sawyer MD [address] [facility] [place] [address] Endocrinology 08/11/19 Dylan Mac DO [address] [place] [address] Building Operator Gastroenterology 06/19/22 Nanci Huber APRN.ALUM PLANT OPERATOR [address] [facility], [place] [address] Critical Access [facility] 08/02/24 Smiley Melo APRN.ALUM PLANT OPERATOR [address] [facility], [place] [address] Critical [facility] 08/02/24 Stock Drier Tender Relationship Specialty Start Date End Date Ricci Cole MD [address] [facility], [place] [id number] PCP - General Family Medicine 09/19/16 Toña Sawyer MD [address] [facility] [place] [address] Endocrinology 08/11/19 Dylan Mac DO [address], [place] [address] Building Operator Gastroenterology 06/19/22 Nanci Huber APRN.ALUM PLANT OPERATOR [address] [facility] [place] [address] Critical Access Hospital 08/02/24 Smiley Melo APRN.ALUM PLANT OPERATOR [address] [facility] [place] [address] Critical Access Hospital 08/02/24 Team Status: Active Member Role/Relationship [...] BE BASED ON THE PRIMARY CLINICAL RECORDS. [facility]. provides no warranty or guarantee of the accuracy or completeness of information in this document.
[2025-08-04] MEDS: 0.9% Saline Lock 10 ML Syringe IV ×3 (06:09→21:19)
[2025-08-04] MEDS: 0.9% Normal Saline (1000mL) 1,000 ML 100 ML IV (06:09)
[2025-08-04] MEDS: buPROPion (XL) 150 MG TABLET.XL PO (08:49)
[2025-08-04] MEDS: Nicotine (PBKC) 14 MG Patch TD (08:49)
[2025-08-04] MEDS: Insulin Glargine-YFGN 100 UNIT/ML Pen 80 UNIT SC (08:50)
--- NOTE | 2025-08-04 09:47 | CASEMGMT ---
Social Work Face to Face with pt for initial transition planning/care coordination assessment. SW introduced self and role at [facility], pt voices understanding and consents to assessment. Pt is A&O x4 and answers all questions appropriately at this time. Admitting Dx: complicated UTI, recent R ankle FX Primary Care Doctor:Dr. Hess Speciality doctors: Dick Stroud Insurance: Anthem Medicare dual and Medicaid Pharmacy: Patient utilizes [facility] in [place]. LNOK:. son and daughter Marital/Social History: Patient is . One of her son 2 years ago. [facility] when she can get there. Living Situation: Patient lives at home with her ex-, daughter and her daughter boyfriend. They do not want to help the patient. She reported they make her feel like she is a burden. There are 4 steps into the home. ADL's/Prior level of functioning: independent Transportation: Patient reported she needs eye surgery. She reported her ex- transports. DME: assisted/home health history: none Mental Health: Patient reported she takes medication for depression and anxiety and it helps. Substance abuse history: none Assessment: Patient lives at home with her ex-, daughter and her daughter boyfriend. They do not want to help the patient. She reported they make her feel like she is a burden. She reported she needs to have surgery on her right ankle. PLAN: SNF [facility]
--- NOTE | 2025-08-04 10:12 | RAD_ITS ---
PROCEDURE: ANKLE MIN 3 VIEWS 08/04/2025 REASON FOR EXAM: FRACTURE TECHNIQUE: Procedure Code: RADANK Modality: DX Procedure: ANKLE MIN 3 VIEWS Laterality: Right ankle COMPARISON: July 20, 2025. FINDINGS: Bones: Nondisplaced fracture of the distal fibula as well as avulsion fracture of the medial malleolus. In the plaster cast. No bony callus is formed. Joints: Asymmetry of the ankle mortise. This is unchanged. Soft tissues: Soft tissue swelling. Other: RAD/Ankle min 3 Views IMPRESSION: Stable appearance of the fracture of the distal fibula and avulsion fracture of the medial malleolus with asymmetry of the ankle mortise. Soft tissue swelling. [facility]
--- NOTE | 2025-08-04 10:29 | CASEMGMT ---
Discharge Planning A list of?SNF providers including quality and resource use data and consistent with the patient's preferred geographic region, medical needs, and insurance network was created in [employer]Port Guide.? This list was provided to the SW. Lisa Moe Discharge Planning Asst.
--- NOTE | 2025-08-04 10:45 | CASEMGMT ---
Social Work A list of?SNF providers including quality and resource use data and consistent with the patient's preferred geographic region, medical needs, and insurance network was created in [employer]Port Guide.?This list was provided to the patient. MARIPOSA Cook
[2025-08-04] MEDS: Cefepime HCl 2 GM in 0.9% Normal Saline (100mL MB+) 100 ML IV ×2 (13:13→21:45)
--- NOTE | 2025-08-04 17:31 | PCM.CONS.GEN ---
Assessment & Plan Assessment/Plan (1) Closed trimalleolar fracture of right ankle: QUALIFIERS: Encounter type: initial encounter Qualified Code(s): S82.851A - Displaced trimalleolar fracture of right lower leg, initial encounter for closed fracture PLAN: Patient was examined and evaluated. All findings were discussed with the patient. All questions were answered to the patient satisfaction. Radiographs (08/04/2025): Three-view nonweightbearing right ankle films show evidence of a mild to moderately displaced Tri mall ankle fracture with lateral deviation of the talus. Increase in soft tissue volume without notable defect. No additional measures or fractures are noted. CT scan (08/01/2025): Evidence of mild displaced comminuted trimalleolar ankle fracture to the right ankle. WBC: 16.3 Glucose: 345 -> 165 HbA1c (08/01/25): 9.2 Prealbumin: Pending Medicine: On board, medical management IV antibiotics cefepime Plan will be for surgical intervention, open reduction internal fixation to the trimalleolar ankle fracture to the right lower extremity planning for Friday versus Friday as the patient has evidence of leukocytosis as well as hyperglycemia. I would like the patient to have stable white count as well as reduced blood sugar prior to the operation. Due to the severity of the fracture I discussed all risk and benefits with the patient which she was understanding of. I educated the patient that she is at great risk due to the elevated blood sugar for surgical wound dehiscence and failure which she was also understanding of. Please of the clear the patient medically with recommendations. At the time of discharge planning I do recommend the patient to go to a SNF for rehabilitation. Please reach out to Dr. Nj of any question or concerns. Thank you for the consultation expect point (2) Diabetes mellitus type 2, insulin dependent: (3) Pain in right ankle: QUALIFIERS: Chronicity: acute Qualified Code(s): M25.571 - Pain in right ankle and joints of right foot HPI Consult Data Date of Consult: 08/04/25 HPI Narrative Reason for Consultation: Right lower extremity ankle fracture HPI Narrative: DAMIEN BROWNLEE, is a 70-year-old diabetic female with a past medical history of hypertension, hyperlipidemia and insulin-dependent diabetes. Patient presented to the emergency room via squad on 08/04/2025 with a history of nausea, emesis and elevated blood sugar with discomfort to the right ankle secondary to trauma. Patient had episode of recent loose stools in addition to headaches with decreased mobility prompting the family member to be concerned thus presenting to the emergency room for evaluation. Patient unfortunately suffered a trauma on 07/20/2025 due to mechanical fall causing a trimalleolar ankle fracture which was closed reduced by the emergency room and sent to orthopedics for treatment. Patient was supposed to have surgery by orthopedics on Friday however the case was canceled due to elevated blood sugar and has not been rescheduled at this time. Now the patient is in the hospital and podiatry was consulted for concerns of a moderately displaced trimalar ankle fracture and consultative for possible surgical intervention. Patient is also suffering from a UTI and being treated by hospitalist at this time. She denies any constitutional symptoms at this time. No other pedal complaints at this time. [facility] Medical History History of ESBL E. coli infection Wears dentures Wears glasses Post-menopausal Anxiety History of steroid therapy Insulin dependent diabetes mellitus Arthritis High cholesterol Migraine headache Injury of head and neck Gastric reflux Smoker History of stress test Hypertension Cardiology follow-up encounter GERD (gastroesophageal reflux disease) Smoker Urinary tract infection UTI due to extended-spectrum beta lactamase (ESBL) producing Escherichia coli Secondary polycythemia Gastritis Panic disorder with agoraphobia Depression Diarrhea Leukocytosis Essential (primary) hypertension Frequent headaches Urinary incontinence Diabetes Gastroparesis Type 2 diabetes mellitus without complications Vision problem GI problem COPD (chronic obstructive pulmonary disease) Diabetes type 2, controlled Chronic bronchitis Chronic UTI Anxiety and depression Seasonal allergies Tobacco abuse COPD (chronic obstructive pulmonary disease) Fibromyalgia Home Medications ?Medication ?Instructions ?Recorded ?Last Taken ?Type insulin lispro 100 unit/mL See Protocol subcut TID diabetes 01/02/22 07/20/25 History subcutaneous pen (Humalog KwikPen (U-100) Insulin) quetiapine 300 mg tablet 300 mg PO QHS mood 01/11/22 07/19/25 History albuterol sulfate 90 mcg/actuation 90 inh inhalation Q4H PRN PRN sob 01/17/22 07/20/25 History aerosol inhaler bupropion HCl 150 mg 24 hr tablet, 150 mg PO DAILY mood 01/17/22 07/19/25 History extended release buspirone 10 mg tablet 20 mg PO TID mood 01/17/22 07/20/25 History omeprazole 40 mg capsule,delayed 40 mg PO DAILY gerd 05/01/22 07/20/25 History release promethazine 25 mg tablet 25 mg PO Q6H PRN nausea 08/04/23 07/20/25 History quetiapine 25 mg tablet 25 mg PO TID PRN mental health 08/04/23 07/19/25 History albuterol sulfate 2.5 mg/3 mL 2.5 mg inhalation Q8H PRN 07/20/25 Unknown History (0.083 %) solution for nebulization shortness of breath or wheezing bupropion HCl 300 mg 24 hr tablet, 300 mg PO QHS 07/20/25 07/19/25 History extended release fluticasone fur. 200 mcg-umeclid 1 ea inhalation DAILY 07/20/25 07/20/25 History 62.5 mcg-vilant 25 mcg inhalat.powder (Trelegy Ellipta) gabapentin 400 mg capsule 400 mg PO TID 07/20/25 07/20/25 History insulin glargine U-300 conc 300 80 unit subcut DAILY 07/20/25 Unknown History unit/mL (1.5 mL) subcutaneous pen (Toujeo SoloStar U-300 Insulin) nystatin 100,000 unit/gram topical 1 applic topical DAILY 07/20/25 07/19/25 History powder Allergy/AdvReac Type Severity Reaction Status Date / Time Penicillins Allergy Hives Verified 08/04/25 04:06 Sulfa (Sulfonamide Allergy Hives Verified 08/04/25 04:06 Antibiotics) varenicline (From Chantix) Allergy Other Verified 08/04/25 04:06 Family History Brother Diabetes Hypertension Mother Heart disease Father COPD (chronic obstructive pulmonary disease) Surgical History History of cardiac catheterization History of appendectomy H/O tubal ligation S/P ORIF (open reduction internal fixation) fracture bladder sling S/P complete hysterectomy Hx of cholecystectomy Social History household members: family Smoking Status: Current every day smoker tobacco type: cigarettes Smoking packs per day: 0.5 Smoking cigarettes per day: 10.0 second hand exposure: Yes alcohol intake: never substance use type: does not use Physical Exam Narrative Vascular: Nonpitting edema appreciated to the distal and proximal aspect of the posterior splint to the right lower extremity. Neurological: Light touch is intact to the exposed digits of the right lower extremity. Dermatological: Skin is well-hydrated to the exposed digit to the right lower extremity. Musculoskeletal: Mild pain on palpation to the medial malleolus and lateral malleolus of the right lower extremity.` Muscle strength was deferred. No pain with calf compression. Const alert, oriented x3 and no apparent distress Lab / Micro Data 08/04/25 03:00 08/04/25 03:00 Labs: Laboratory Results - last 24 hr 08/04/25 03:00: WBC 16.3 H, RBC 4.55, Hgb 13.7, Hct 41.4, MCV 91.0, MCH 30.1, MCHC 33.1, RDW Std Deviation 43.4, RDW Coeff of Jona 13.2, Plt Count 333, MPV 8.7, Immature Gran % (Auto) 0.600, Neut % (Auto) 79.2 H, Lymph % (Auto) 13.4 L, [place] % (Auto) 6.2, Eos % (Auto) 0.3, Baso % (Auto) 0.3, Absolute Neuts (auto) 12.9 H, Absolute Lymphs (auto) 2.17, Nucleated RBC % 0, Sodium 138, Potassium 3.7, Chloride 102, Carbon Dioxide 21.4, Anion Gap 14, BUN 12, Creatinine 0.69 L, Estim Creat Clear Calc 82.11, Est GFR (MDRD) Non-Af 94, BUN/Creatinine Ratio 17.7, Glucose 345 H, Lactic Acid 1.7, Calcium 9.0, Total Bilirubin 0.37, Direct Bilirubin 0.17, AST 10, ALT 10, Alkaline Phosphatase 71, Total Protein 6.3, Albumin 3.5, Globulin 2.8, Lipase 14, b-Hydroxybutyric mmol/L 0.8 H, Procalcitonin 0.08 08/04/25 03:05: Urine Color Yellow, Urine Clarity Sl. Cloudy, Urine pH 6.0, Ur Specific [place] 1.020, Urine Protein 30 H, Urine Glucose (UA) 1000 H, Urine Ketones 50 H, Urine Occult Blood 25 H, Urine Nitrite Positive H, Urine Bilirubin Negative, Urine Urobilinogen Normal, Ur Leukocyte Esterase 500 H, Urine RBC 0-5 SEEN, Urine WBC >100 SEEN, Ur Squamous Epith Cells 0-5 SEEN, Urine Bacteria 2+, Urine Mucus 1+, Urine Yeast 1+ 08/04/25 04:43: POC Glucose 304 H 08/04/25 06:14: POC Glucose 271 H 08/04/25 11:36: POC Glucose 321 H 08/04/25 15:41: POC Glucose 165 H Micro: Microbiology 08/04/25 03:05 Mucosa - Nose SARS-CoV-2, Influenza & RSV (PCR) - Final Imaging Radiology Impression Ankle X-Ray 08/04/25 10:12 IMPRESSION: Stable appearance of the fracture of the distal fibula and avulsion fracture of the medial malleolus with asymmetry of the ankle mortise. Soft tissue swelling. Reading Location: [place] [id number]
--- NOTE | 2025-08-04 18:42 | PCM.HOSP.N ---
Hospitalist Note Patient was seen and examined today briefly, her blood sugars this afternoon were improved, podiatry is seeing her for her trimalleolar fracture of her right ankle. Will continue her present antibiotics for now and await urine culture.
[2025-08-04] MEDS: 0.9% Normal Saline (250mL Bag) 250 ML 15 ML IV (21:22)
[2025-08-04] MEDS: buPROPion (XL) 300 MG TABLET.XL PO (21:26)
[2025-08-05] VITALS (9 sets, daily range): BP systolic 150–166; BP diastolic 57–78; PULSE 83–99; RESP 16–20; TEMP 36.7–37.1; O2SAT 94–98; BMI 35.7
[2025-08-05] MEDS: Cefepime HCl 2 GM in 0.9% Normal Saline (100mL MB+) 100 ML IV ×3 (05:31→21:09)
[2025-08-05] MEDS: 0.9% Saline Lock 10 ML Syringe IV ×5 (07:35→21:09)
[2025-08-05] MEDS: Nicotine (PBKC) 14 MG Patch TD (08:39)
[2025-08-05] MEDS: buPROPion (XL) 150 MG TABLET.XL PO (08:40)
[2025-08-05] MEDS: Insulin Glargine-YFGN 100 UNIT/ML Pen 80 UNIT SC (08:41)
[2025-08-05] MEDS: FLU VACCINE HIGH DOSE 25-26(65YR UP) 180 MCG/0.5 ML SYRINGE IM (08:44)
--- NOTE | 2025-08-05 11:00 | CASEMGMT ---
Social Work [facility], (Jennifer) left a message regarding pt and needing a referral to an ankle doctor, she asked for SW to return call. SW called back twice, it seems the office is closed today. However, pt was seen by a rd scientist here and is to be having surgery here on Friday or Friday. SW will continue to follow for discharge planning needs. JONA Valdivia
--- NOTE | 2025-08-05 16:54 | PCM.PN.SRG ---
Subjective Subjective Patient is a 71-year-old diabetic female seen at bedside today for surgical discussion and evaluation of right lower extremity ankle fracture. Patient states she is doing well. Her pain is minimal. Denies any acute events overnight. She denies any constitutional symptoms. No other pedal complaints at this time. Objective Data Objective Data Vital Signs: Vital Signs Temp Pulse Resp BP Pulse Ox O2 Del Method 98.1 F 90 16 166/57 H 96 Room Air 08/05/25 14:45 08/05/25 14:45 08/05/25 14:45 08/05/25 14:45 08/05/25 14:45 08/05/25 14:45 Oxygen Delivery Method Room Air Weight: 103.4 kg Body Mass Index (BMI) 35.7 Intake & Output: Intake and Output for Last 24 Hours 08/03/25 08/04/25 08/05/25 23:59 23:59 23:59 Intake Total 3615.75 / 3615.75 904.25 / 904.25 Output Total 700 / 700 1150 / 1150 Balance 2915.75 / 2915.75 -245.75 / -245.75 Lab / Micro Data 08/04/25 03:00 08/04/25 03:00 Labs: Laboratory Results - last 24 hr 08/04/25 21:12: POC Glucose 176 H 08/05/25 06:31: POC Glucose 94 08/05/25 11:44: POC Glucose 210 H Micro: Microbiology 08/04/25 03:05 Urine, Catheterized Urine Culture - Preliminary Presumptive E. coli 08/04/25 03:05 Mucosa - Nose SARS-CoV-2, Influenza & RSV (PCR) - Final Physical Exam Narrative Vascular: Nonpitting edema appreciated to the distal and proximal aspect of the posterior splint to the right lower extremity. Neurological: Light touch is intact to the exposed digits of the right lower extremity. Dermatological: Skin is well-hydrated to the exposed digit to the right lower extremity. Musculoskeletal: Minimal pain on palpation to the medial malleolus and lateral malleolus of the right lower extremity.` Muscle strength was deferred. No pain with calf compression. Const alert, oriented x3 and no apparent distress Assessment & Plan Assessment/Plan (1) Closed trimalleolar fracture of right ankle: QUALIFIERS: Encounter type: initial encounter Qualified Code(s): S82.851A - Displaced trimalleolar fracture of right lower leg, initial encounter for closed fracture PLAN: Patient was examined and evaluated. All findings were discussed with the patient. All questions were answered to the patient satisfaction. Radiographs (08/04/2025): Three-view nonweightbearing right ankle films show evidence of a mild to moderately displaced Tri mall ankle fracture with lateral deviation of the talus. Increase in soft tissue volume without notable defect. No additional measures or fractures are noted. CT scan (08/01/2025): Evidence of mild displaced comminuted trimalleolar ankle fracture to the right ankle. WBC: 16.3 (08/04/25) Glucose: 345 -> 165 -> 147 HbA1c (08/01/25): 9.2 Prealbumin: 15 Medicine: On board, medical management IV antibiotics cefepime Planning for surgical intervention into the displaced ankle fracture to right lower extremity on Friday versus Friday based on OR availability. Please clear the patient medically with recommendations. Podiatry will continue to follow while patient is in house anticipating surgery early next week. Please reach out to Dr. Nj with any question pr concerns. Thank you for letting me be involved in patient care. (2) Diabetes mellitus type 2, insulin dependent: (3) Pain in right ankle: QUALIFIERS: Chronicity: acute Qualified Code(s): M25.571 - Pain in right ankle and joints of right foot
--- NOTE | 2025-08-05 19:34 | PCM.PN.HOSP ---
Reason for Visit Chief Complaint: N/V/D, headache, general debility, recent R ankle fracture with pain. Subjective Subjective Patient was seen and examined today, she has not been participating with physical therapy, she was told that she needs to participate with them and she got upset and talked about a doctor coming in to see her which she did not know. I do not see any evidence of any notes today on the patient's chart, she told me it was not Dr. Conner that saw her today. The current plan is for the patient undergo repair of her right ankle fracture next week by podiatry. Objective Data Objective Data Vital Signs: Vital Signs Temp Pulse Resp BP Pulse Ox O2 Del Method 98.1 F 99 18 159/64 H 98 Room Air 08/05/25 17:28 08/05/25 17:28 08/05/25 17:28 08/05/25 17:28 08/05/25 17:28 08/05/25 17:28 Oxygen Delivery Method Room Air Weight: 103.4 kg Body Mass Index (BMI) 35.7 Intake & Output: Intake and Output for Last 24 Hours 08/03/25 08/04/25 08/05/25 23:59 23:59 23:59 Intake Total 3615.75 / 3615.75 1424.25 / 1424.25 Output Total 700 / 700 1650 / 1650 Balance 2915.75 / 2915.75 -225.75 / -225.75 Lab / Micro Data 08/04/25 03:00 08/04/25 03:00 Labs: Laboratory Results - last 24 hr 08/04/25 21:12: POC Glucose 176 H 08/05/25 06:31: POC Glucose 94 08/05/25 11:44: POC Glucose 210 H 08/05/25 16:50: POC Glucose 195 H Micro: Microbiology 08/04/25 03:05 Urine, Catheterized Urine Culture - Preliminary Presumptive E. coli 08/04/25 03:05 Mucosa - Nose SARS-CoV-2, Influenza & RSV (PCR) - Final Physical Exam Const alert, oriented x3 and no apparent distress General Appearance: cooperative and well developed Orientation / Consciousness: awake, oriented to person, oriented to place and oriented to time HEENT normocephalic, head/scalp atraumatic and moist oral mucous membranes Eyes PERRL, EOMs intact bilaterally and conjunctivae normal Neck supple, no JVD, thyroid normal and no carotid bruits General: trachea midline Resp normal respiratory effort and clear to auscultation bilaterally Auscultation: Negative for rales, rhonchi or wheezes Cardio regular rate, regular rhythm, no murmurs, no rub and no gallops GI normal to inspection, nondistended, normoactive bowel sounds, soft to palpation, non-tender and non-distended Extremity Extremity Narrative: Patient's right lower leg is in a splint at this time Skin no rashes or lesions noted General Skin Exam: no breakdown Neuro oriented x3, CN's II-XII intact bilaterally, moves all extremities, no focal motor deficits and no sensory deficits noted Sensorium / Orientation: awake and alert Speech: speech normal Psych Psych Narrative: Patient is tearful and anxious at times Assessment & Plan Assessment/Plan (1) Acute UTI: PLAN: Plan 1. Complicated urinary tract infection-patient's urine culture grew out ESBL E. coli, antibiotic was changed to cefepime #2 generalized weakness secondary to multiple medical problems and trimalleolar fracture of the right ankle-PT and OT will continue to see the patient #3 type 2 diabetes-patient's blood sugars will be monitored, sliding scale insulin will be administered as needed #4 chronic depression/anxiety-patient will remain on Wellbutrin, Seroquel,and BuSpar Total clinical time spent by myself addressing the patient's medical issues, reviewing all of her data, and collaborating with patient's care team: 35 minutes Charges/Coding Visit Charges Inpatient E&M: 28443 Subs Hosp L2
[2025-08-05] MEDS: buPROPion (XL) 300 MG TABLET.XL PO (21:08)
[2025-08-05] MEDS: Senna/Docusate Sodium 1 Tablet 2 TABLET PO (21:24)
[2025-08-05] MEDS: MELATONIN 3 MG TABLET PO (21:24)
[2025-08-06 02:54] VITALS: BMI 36.1
[2025-08-06 04:07] VITALS: BP 115/68; PULSE 81; RESP 17; TEMP 36.8; O2SAT 96
[2025-08-06 06:41] VITALS: PULSE 86; RESP 18; O2SAT 98
[2025-08-06] MEDS: Cefepime HCl 2 GM in 0.9% Normal Saline (100mL MB+) 100 ML IV ×3 (06:44→21:53)
[2025-08-06] MEDS: Senna/Docusate Sodium 1 Tablet 2 TABLET PO (06:50)
[2025-08-06 07:07] LABS: Prealbumin 15 mg/dL (10-36)
[2025-08-06 10:00] VITALS: BP 152/73; PULSE 81; RESP 18; TEMP 36.9; O2SAT 98
[2025-08-06] MEDS: buPROPion (XL) 150 MG TABLET.XL PO (10:54)
[2025-08-06] MEDS: Nicotine (PBKC) 14 MG Patch TD (10:54)
[2025-08-06] MEDS: Insulin Glargine-YFGN 100 UNIT/ML Pen 80 UNIT SC (11:00)
[2025-08-06] MEDS: 0.9% Normal Saline (250mL Bag) 250 ML 15 ML IV (14:31)
[2025-08-06] MEDS: 0.9% Saline Lock 10 ML Syringe IV (14:33)
[2025-08-06 14:44] VITALS: BP 158/77; PULSE 82; RESP 16; TEMP 36.9; O2SAT 95
--- NOTE | 2025-08-06 18:42 | PCM.PN.HOSP ---
Reason for Visit Chief Complaint: N/V/D, headache, general debility, recent R ankle fracture with pain. Subjective Subjective Patient was seen and examined today, she is tearful about going to a shelter after her ankle surgery. I told her she would need intensive rehab and that she would need to go somewhere. I believe the ankle surgery is scheduled for next week. Objective Data Objective Data Vital Signs: Vital Signs Temp Pulse Resp BP Pulse Ox O2 Del Method 98.4 F 82 16 158/77 H 95 Room Air 08/06/25 14:44 08/06/25 14:44 08/06/25 14:44 08/06/25 14:44 08/06/25 14:44 08/06/25 14:44 Oxygen Delivery Method Room Air Weight: 104.3 kg Body Mass Index (BMI) 36.1 Intake & Output: Intake and Output for Last 24 Hours 08/04/25 08/05/25 08/06/25 23:59 23:59 23:59 Intake Total 3615.75 / 3615.75 1524.25 / 1524.25 1100 / 1100 Output Total 700 / 700 1650 / 2350 1999 / 1999 Balance 2915.75 / 2915.75 -125.75 / -825.75 -900 / -900 Lab / Micro Data 08/04/25 03:00 08/04/25 03:00 Labs: Laboratory Results - last 24 hr 08/04/25 19:48: Prealbumin 15 08/05/25 21:12: POC Glucose 147 H 08/06/25 06:41: POC Glucose 196 H 08/06/25 10:59: POC Glucose 250 H 08/06/25 16:33: POC Glucose 151 H Micro: Microbiology 08/04/25 03:05 Urine, Catheterized Urine Culture - Final ESBL Escherichia coli 08/04/25 03:05 Mucosa - Nose SARS-CoV-2, Influenza & RSV (PCR) - Final Physical Exam Const alert, oriented x3 and no apparent distress General Appearance: cooperative, well kempt and well developed Orientation / Consciousness: awake, oriented to person, oriented to place and oriented to time HEENT normocephalic, head/scalp atraumatic and moist oral mucous membranes Eyes PERRL, EOMs intact bilaterally and conjunctivae normal Neck supple, no JVD, thyroid normal and no carotid bruits General: trachea midline Resp normal respiratory effort, no retractions, no use of accessory muscles and clear to auscultation bilaterally Auscultation: Negative for rales, rhonchi or wheezes Cardio regular rate, regular rhythm, S1 normal heart sound, S2 normal heart sound, no murmurs, no rub and no gallops GI normal to inspection, nondistended, normoactive bowel sounds, soft to palpation, non-tender and non-distended Extremity Extremity Narrative: Right lower leg is encased in a splint Skin no rashes or lesions noted General Skin Exam: no breakdown Neuro oriented x3, CN's II-XII intact bilaterally, moves all extremities, no focal motor deficits and no sensory deficits noted Sensorium / Orientation: awake and alert Speech: speech normal Psych Psych Narrative: Appears slightly anxious today Assessment & Plan Assessment/Plan (1) Acute UTI: PLAN: Plan 1. Complicated urinary tract infection-patient's urine culture grew out ESBL E. coli, patient is on cefepime #2 generalized weakness secondary to multiple medical problems and trimalleolar fracture of the right ankle-PT and OT will continue to see the patient #3 type 2 diabetes-patient's blood sugars will be monitored, sliding scale insulin will be administered as needed I have decided to increase her basal insulin by 5 units #4 chronic depression/anxiety-patient will remain on Wellbutrin, Seroquel,and BuSpar Total clinical time spent by myself addressing the patient's medical issues, reviewing all of her data, and collaborating with patient's care team: 35 minutes Charges/Coding Visit Charges Inpatient E&M: 01119 Subs Hosp L2
[2025-08-06 19:12] VITALS: PULSE 85; RESP 16
[2025-08-06 21:45] VITALS: BP 152/84; PULSE 91; RESP 18; TEMP 36.9; O2SAT 97
[2025-08-06] MEDS: MELATONIN 3 MG TABLET PO (21:54)
[2025-08-06] MEDS: buPROPion (XL) 300 MG TABLET.XL PO (21:54)
[2025-08-07] VITALS (7 sets, daily range): BP systolic 144–155; BP diastolic 61–75; PULSE 75–88; RESP 16–20; TEMP 36.6–36.8; O2SAT 94–98; BMI 35.9
[2025-08-07] MEDS: Cefepime HCl 2 GM in 0.9% Normal Saline (100mL MB+) 100 ML IV ×3 (06:17→21:48)
[2025-08-07] MEDS: 0.9% Normal Saline (250mL Bag) 250 ML 15 ML IV (06:17)
[2025-08-07] MEDS: Nicotine (PBKC) 14 MG Patch TD (09:31)
[2025-08-07] MEDS: Insulin Glargine-YFGN 100 UNIT/ML Pen 85 UNIT SC (09:31)
[2025-08-07] MEDS: buPROPion (XL) 150 MG TABLET.XL PO (09:32)
--- NOTE | 2025-08-07 14:53 | PCM.PN.HOSP ---
Reason for Visit Chief Complaint: N/V/D, headache, general debility, recent R ankle fracture with pain. Subjective Subjective Patient was seen and, she voices no new complaints. Patient's blood sugars have been under better control. Objective Data Objective Data Vital Signs: Vital Signs Temp Pulse Resp BP Pulse Ox O2 Del Method 98.1 F 85 16 148/75 H 95 Room Air 08/07/25 08:28 08/07/25 13:53 08/07/25 08:28 08/07/25 13:53 08/07/25 08:28 08/07/25 08:45 Oxygen Delivery Method Room Air Weight: 103.8 kg Body Mass Index (BMI) 35.9 Intake & Output: Intake and Output for Last 24 Hours 08/05/25 08/06/25 08/07/25 23:59 23:59 23:59 Intake Total 1524.25 / 1524.25 1200 / 1400 830.75 / 830.75 Output Total 1650 / 2350 2000 / 2500 1500 / 1500 Balance -125.75 / -825.75 -800 / -1100 -669.25 / -669.25 Lab / Micro Data 08/04/25 03:00 08/04/25 03:00 Labs: Laboratory Results - last 24 hr 08/06/25 16:33: POC Glucose 151 H 08/06/25 21:51: POC Glucose 194 H 08/07/25 06:24: POC Glucose 137 H 08/07/25 09:29: POC Glucose 223 H 08/07/25 12:38: POC Glucose 207 H Micro: Microbiology 08/04/25 03:05 Urine, Catheterized Urine Culture - Final ESBL Escherichia coli 08/04/25 03:05 Mucosa - Nose SARS-CoV-2, Influenza & RSV (PCR) - Final Physical Exam Narrative alert, oriented x3 and no apparent distress General Appearance: cooperative, well kempt and well developed Orientation / Consciousness: awake, oriented to person, oriented to place and oriented to time HEENT normocephalic, head/scalp atraumatic and moist oral mucous membranes Eyes PERRL, EOMs intact bilaterally and conjunctivae normal Neck supple, no JVD, thyroid normal and no carotid bruits General: trachea midline Resp normal respiratory effort, no retractions, no use of accessory muscles and clear to auscultation bilaterally Auscultation: Negative for rales, rhonchi or wheezes Cardio regular rate, regular rhythm, S1 normal heart sound, S2 normal heart sound, no murmurs, no rub and no gallops GI normal to inspection, nondistended, normoactive bowel sounds, soft to palpation, non-tender and non-distended Extremity Extremity Narrative: Right lower leg is encased in a splint Skin no rashes or lesions noted General Skin Exam: no breakdown Neuro oriented x3, CN's II-XII intact bilaterally, moves all extremities, no focal motor deficits and no sensory deficits noted Sensorium / Orientation: awake and alert Speech: speech normal Psych Psych Narrative: Not anxious or depressed today Assessment & Plan Assessment/Plan (1) Acute UTI: PLAN: Plan 1. Complicated urinary tract infection-patient's urine culture grew out ESBL E. coli, patient is on cefepime #2 generalized weakness secondary to multiple medical problems and trimalleolar fracture of the right ankle-PT and OT will continue to see the patient #3 type 2 diabetes-patient's blood sugars will be monitored, sliding scale insulin will be administered as needed I have decided to increase her basal insulin by 5 units #4 chronic depression/anxiety-patient will remain on Wellbutrin, Seroquel,and BuSpar Total clinical time spent by myself addressing the patient's medical issues, reviewing all of her data, and collaborating with patient's care team: 35 minutes Charges/Coding Visit Charges Inpatient E&M: 66370 Subs Hosp L2
[2025-08-07] MEDS: MELATONIN 3 MG TABLET PO (21:48)
[2025-08-07] MEDS: buPROPion (XL) 300 MG TABLET.XL PO (21:53)
[2025-08-07] MEDS: 0.9% Saline Lock 10 ML Syringe IV (22:00)
[2025-08-08] VITALS (8 sets, daily range): BP systolic 126–158; BP diastolic 61–82; PULSE 68–87; RESP 16–20; TEMP 36.6–36.7; O2SAT 94–96; BMI 36.1
[2025-08-08 04:24] LABS: Hematocrit 36.9 % (37-47); Hemoglobin 12.1 g/dL (12.0-15.0); Immature Granulocytes Count 0.050 X10^3/uL (0.0-0.0); Mean Corp Hgb Conc 32.8 g/dL (32-36); Mean Corpuscular Volume 91.8 fL (81-99); Mean Platelet Vol. 8.7 fl (6.2-12.0); NRBC Flagged by Analyzer 0 % (0-5); Platelet Count 265 K/mm3 (150-450); RBC Distribution Width CV 13.2 % (11.6-14.6); RBC Distribution Width SD 44.9 fl (35.1-43.9); Red Blood Count 4.02 M/mm3 (4.2-5.4); White Blood Count 8.0 K/mm3 (4.4-11.0)
[2025-08-08] MEDS: 0.9% Saline Lock 10 ML Syringe IV ×3 (05:59→21:38)
[2025-08-08] MEDS: Cefepime HCl 2 GM in 0.9% Normal Saline (100mL MB+) 100 ML IV ×3 (05:59→21:31)
--- NOTE | 2025-08-08 06:43 | PCM.PN.SRG ---
Subjective Subjective Patient is a 62-year-old female seen at bedside today for evaluation of right lower extremity ankle fracture. Patient was getting breathing treatment. She admits pain is improved to the right lower extremity. Anticipating surgical intervention with open reduction internal fixation right ankle fracture Friday. Patient to be n.p.o. midnight tonight. Denies any acute events overnight. Denies any constitutional symptoms. No other pedal complaints at this time. Objective Data Objective Data Vital Signs: Vital Signs Temp Pulse Resp BP Pulse Ox O2 Del Method 98.1 F 75 20 H 126/66 H 96 Room Air 08/08/25 03:50 08/08/25 03:50 08/08/25 03:50 08/08/25 03:50 08/08/25 03:50 08/08/25 04:11 Oxygen Delivery Method Room Air Weight: 104.3 kg Body Mass Index (BMI) 36.1 Intake & Output: Intake and Output for Last 24 Hours 08/06/25 08/07/25 08/08/25 23:59 23:59 23:59 Intake Total 1200 / 1400 1030.75 / 1250.75 395.75 / 395.75 Output Total 2000 / 2500 1950 / 2250 300 / 300 Balance -800 / -1100 -919.25 / -999.25 95.75 / 95.75 Lab / Micro Data 08/08/25 03:54 08/04/25 03:00 Labs: Laboratory Results - last 24 hr 08/07/25 06:24: POC Glucose 137 H 08/07/25 09:29: POC Glucose 223 H 08/07/25 12:38: POC Glucose 207 H 08/07/25 17:30: POC Glucose 125 H 08/07/25 21:58: POC Glucose 193 H 08/08/25 03:54: WBC 8.0, RBC 4.02 L, Hgb 12.1, Hct 36.9 L, MCV 91.8, MCH 30.1, MCHC 32.8, RDW Std Deviation 44.9 H, RDW Coeff of Jona 13.2, Plt Count 265, MPV 8.7, Immature Gran % (Auto) 0.600, Neut % (Auto) 50.6, Lymph % (Auto) 38.3, Wetzel % (Auto) 8.3, Eos % (Auto) 1.9, Baso % (Auto) 0.3, Absolute Neuts (auto) 4.0, Absolute Lymphs (auto) 3.05, Nucleated RBC % 0 08/08/25 05:57: POC Glucose 130 H Micro: Microbiology 08/04/25 03:05 Urine, Catheterized Urine Culture - Final ESBL Escherichia coli 08/04/25 03:05 Mucosa - Nose SARS-CoV-2, Influenza & RSV (PCR) - Final Physical Exam Narrative Vascular: Nonpitting edema appreciated to the distal and proximal aspect of the posterior splint to the right lower extremity. Neurological: Light touch is intact to the exposed digits of the right lower extremity. Dermatological: Skin is well-hydrated to the exposed digit to the right lower extremity. Musculoskeletal: Minimal pain on palpation to the medial malleolus and lateral malleolus of the right lower extremity.` Muscle strength was deferred. No pain with calf compression. Const alert, oriented x3 and no apparent distress Assessment & Plan Assessment/Plan (1) Closed trimalleolar fracture of right ankle: QUALIFIERS: Encounter type: initial encounter Qualified Code(s): S82.851A - Displaced trimalleolar fracture of right lower leg, initial encounter for closed fracture PLAN: Patient was examined and evaluated. All findings were discussed with the patient. All questions were answered to the patient satisfaction. Radiographs (08/04/2025): Three-view nonweightbearing right ankle films show evidence of a mild to moderately displaced Tri mall ankle fracture with lateral deviation of the talus. Increase in soft tissue volume without notable defect. No additional measures or fractures are noted. CT scan (08/01/2025): Evidence of mild displaced comminuted trimalleolar ankle fracture to the right ankle. WBC: 8.0 Glucose: 130 HbA1c (08/01/25): 9.2 Prealbumin: 15 Medicine: On board, medical management IV antibiotics cefepime Planning for surgical intervention into the displaced ankle fracture to right lower extremity on Friday based on OR availability. Please clear the patient medically with recommendations. Podiatry will continue to follow while patient is in house anticipating surgery early next week. Please reach out to Dr. Nj with any question or concerns. Thank you for letting me be involved in patient care. (2) Diabetes mellitus type 2, insulin dependent: (3) Pain in right ankle: QUALIFIERS: Chronicity: acute Qualified Code(s): M25.571 - Pain in right ankle and joints of right foot
[2025-08-08] MEDS: buPROPion (XL) 150 MG TABLET.XL PO (09:26)
[2025-08-08] MEDS: Nicotine (PBKC) 14 MG Patch TD (09:27)
[2025-08-08] MEDS: Insulin Glargine-YFGN 100 UNIT/ML Pen 85 UNIT SC (09:27)
--- NOTE | 2025-08-08 09:29 | PCM.PN.HOSP ---
Reason for Visit Chief Complaint: N/V/D, headache, general debility, recent R ankle fracture with pain. Subjective Subjective Patient is a 70-year-old lady who presented with progressive generalized weakness. Had apparently fallen and fractured her ankle around . Presented to the emergency department with incontinence. Found to have UTI. Consult was placed to podiatry medicine Objective Data Objective Data Vital Signs: Vital Signs Temp Pulse Resp BP Pulse Ox O2 Del Method 97.9 F 87 16 127/61 H 94 Room Air 08/08/25 09:20 08/08/25 09:20 08/08/25 09:20 08/08/25 09:20 08/08/25 09:20 08/08/25 09:20 Oxygen Delivery Method Room Air Weight: 104.3 kg Body Mass Index (BMI) 36.1 Intake & Output: Intake and Output for Last 24 Hours 08/06/25 08/07/25 08/08/25 23:59 23:59 23:59 Intake Total 1200 / 1400 1030.75 / 1250.75 795.75 / 795.75 Output Total 2000 / 2500 1950 / 2250 1000 / 1000 Balance -800 / -1100 -919.25 / -999.25 -204.25 / -204.25 Lab / Micro Data 08/08/25 03:54 08/04/25 03:00 Labs: Laboratory Results - last 24 hr 08/07/25 09:29: POC Glucose 223 H 08/07/25 12:38: POC Glucose 207 H 08/07/25 17:30: POC Glucose 125 H 08/07/25 21:58: POC Glucose 193 H 08/08/25 03:54: WBC 8.0, RBC 4.02 L, Hgb 12.1, Hct 36.9 L, MCV 91.8, MCH 30.1, MCHC 32.8, RDW Std Deviation 44.9 H, RDW Coeff of Jona 13.2, Plt Count 265, MPV 8.7, Immature Gran % (Auto) 0.600, Neut % (Auto) 50.6, Lymph % (Auto) 38.3, [place] % (Auto) 8.3, Eos % (Auto) 1.9, Baso % (Auto) 0.3, Absolute Neuts (auto) 4.0, Absolute Lymphs (auto) 3.05, Nucleated RBC % 0 08/08/25 05:57: POC Glucose 130 H Micro: Microbiology 08/04/25 03:05 Urine, Catheterized Urine Culture - Final ESBL Escherichia coli 08/04/25 03:05 Mucosa - Nose SARS-CoV-2, Influenza & RSV (PCR) - Final Physical Exam Narrative GENERAL: cooperative HEENT: Atraumatic; normocephalic EYES; Anicteric, Normal Conjunctiva NECK; supple, normal thyroid, RESPIRATORY: Diminished to auscultation CARDIOVASCULAR: Regular S1 S2, GI: soft, normoactive bowel sounds, : No Renal angle tenderness; EXTREMITIES: No edema, no clubbing, MUSCULOSKELETAL: Right ankle immobilized NEURO: Awake; no lateralizing signs. SKIN: No Rash PSYCH; Flat affect Assessment & Plan Assessment/Plan (1) Acute UTI: PLAN: Plan Patient is a 70-year-old lady who presented with progressive generalized weakness. Had apparently fallen and fractured her ankle around . Presented to the emergency department with incontinence. Found to have UTI. Consult was placed to podiatry medicine 1. Acute complicated UTI with ESBL E. coli patient was managed with cefepime 2. Right ankle fracture ? Imaging studies did show mild to moderately displaced Tri mall ankle fracture with lateral deviation of the talus. Increase in soft tissue volume without notable defect patient managed with pain meds with consultation placed to podiatry medicine. Patient seen by Dr. Nj. Plan for patient to remain n.p.o. after midnight with plan for patient to undergo ORIF on 08/09/2025 3. Diabetes mellitus type II -patient's oral hypoglycemics held. Placed on long acting insulin, Accu-Cheks a.c. and at bedtime and covered with sliding scale insulin 4. Depression with anxiety ? Patient is on Wellbutrin Seroquel BuSpar continue 5. GERD ? On PPI 6. Diabetes mellitus type 2 with BMI of 36 ? Complicating care weight loss advised next 7. DVT prophylaxis ? On enoxaparin Time spent in the patient's overall evaluation,decision-making process, review of diagnostic data, adjustment of management, discussion with other providers, nursing nursing and ancillary staff involved in patient's care documentation, 38 Minutes Charges/Coding Visit Charges Inpatient E&M: 79623 Subs Hosp L2
[2025-08-08] MEDS: 0.9% Normal Saline (250mL Bag) 250 ML 15 ML IV (21:29)
[2025-08-08] MEDS: MELATONIN 3 MG TABLET PO (21:32)
[2025-08-08] MEDS: buPROPion (XL) 300 MG TABLET.XL PO (21:39)
[2025-08-09] VITALS (8 sets, daily range): BP systolic 121–164; BP diastolic 59–89; PULSE 70–88; RESP 16–18; TEMP 36.2–37.5; O2SAT 93–98; BMI 35.9
[2025-08-09] MEDS: 0.9% Saline Lock 10 ML Syringe IV ×3 (04:24→22:24)
[2025-08-09 05:10] LABS: Hematocrit 37.0 % (37-47); Hemoglobin 12.1 g/dL (12.0-15.0); Mean Corp Hgb Conc 32.7 g/dL (32-36); Mean Corpuscular Volume 93.2 fL (81-99); Mean Platelet Vol. 8.9 fl (6.2-12.0); Platelet Count 248 K/mm3 (150-450); RBC Distribution Width CV 13.2 % (11.6-14.6); RBC Distribution Width SD 45.1 fl (35.1-43.9); Red Blood Count 3.97 M/mm3 (4.2-5.4); White Blood Count 8.9 K/mm3 (4.4-11.0)
[2025-08-09 05:43] LABS: Anion Gap 12 (5-15); BUN 12 mg/dL (4-19); BUN/Creat Ratio 23.9 RATIO (10-20); Calcium,Total 9.0 mg/dL (7.6-11.0); Carbon Dioxide 18.1 mmol/L (21.0-32.0); Chloride 107 mmol/L (98-108); Estimated Creatinine Clearance 83.47 ml/min (50-250); Glucose 145 mg/dL (70-99); Magnesium 2.3 mg/dL (1.5-2.2); Potassium 3.9 mmol/L (3.3-5.1)
--- NOTE | 2025-08-09 05:55 | EKG12_ITS ---
Test Reason : PRE-OP Blood Pressure : */* mmHG Vent. Rate : 68 BPM Atrial Rate : 68 BPM P-R Int : 168 ms QRS Dur : 100 ms QT Int : 410 ms P-R-T Axes : 69 3 86 degrees QTcB Int : 435 ms Normal sinus rhythm Nonspecific T wave abnormality Abnormal ECG Confirmed by RITA TATE, SHARMIN ([id number]), sports editor JUDY NIEVES ([id number]) on 08/09/2025 1:17:46 PM Referred By: Confirmed By: SHARMIN SALINAS MD
[2025-08-09] MEDS: Cefepime HCl 2 GM in 0.9% Normal Saline (100mL MB+) 100 ML IV ×3 (06:01→20:50)
--- NOTE | 2025-08-09 07:31 | PCM.PN.HOSP ---
Reason for Visit Chief Complaint: N/V/D, headache, general debility, recent R ankle fracture with pain. Subjective Subjective Scheduled to undergo ORIF by Dr. Nj. Patient complains of feeling anxious patient reassured Objective Data Objective Data Vital Signs: Vital Signs Temp Pulse Resp BP Pulse Ox O2 Del Method 98 F 85 18 132/62 H 95 Room Air 08/09/25 03:00 08/09/25 06:49 08/09/25 06:49 08/09/25 03:00 08/09/25 06:49 08/09/25 06:49 Oxygen Delivery Method Room Air Weight: 104 kg Body Mass Index (BMI) 35.9 Intake & Output: Intake and Output for Last 24 Hours 08/07/25 08/08/25 08/09/25 23:59 23:59 23:59 Intake Total 1030.75 / 1250.75 995.75 / 1215.75 320 / 320 Output Total 1950 / 2250 2300 / 2600 500 / 500 Balance -919.25 / -999.25 -1304.25 / -1384.25 -180 / -180 Lab / Micro Data 08/09/25 04:20 08/09/25 04:20 Labs: Laboratory Results - last 24 hr 08/08/25 09:21: POC Glucose 210 H 08/08/25 12:46: POC Glucose 188 H 08/08/25 17:13: POC Glucose 147 H 08/08/25 21:43: POC Glucose 198 H 08/09/25 04:20: WBC 8.9, RBC 3.97 L, Hgb 12.1, Hct 37.0, MCV 93.2, MCH 30.5, MCHC 32.7, RDW Std Deviation 45.1 H, RDW Coeff of Jona 13.2, Plt Count 248, MPV 8.9, Sodium 137, Potassium 3.9, Chloride 107, Carbon Dioxide 18.1 L, Anion Gap 12, BUN 12, Creatinine 0.49 L, Estim Creat Clear Calc 83.47, Est GFR (MDRD) Non-Af 103, BUN/Creatinine Ratio 23.9 H, Glucose 145 H, Calcium 9.0, Phosphorus 3.7, Magnesium 2.3 H 08/09/25 06:05: POC Glucose 131 H Micro: Microbiology 08/04/25 03:05 Urine, Catheterized Urine Culture - Final ESBL Escherichia coli 08/04/25 03:05 Mucosa - Nose SARS-CoV-2, Influenza & RSV (PCR) - Final Physical Exam Narrative GENERAL: cooperative HEENT: Atraumatic; normocephalic EYES; Anicteric, Normal Conjunctiva NECK; supple, normal thyroid, RESPIRATORY: Diminished to auscultation CARDIOVASCULAR: Regular S1 S2, GI: soft, normoactive bowel sounds, : No Renal angle tenderness; EXTREMITIES: No edema, no clubbing, MUSCULOSKELETAL: Right ankle immobilized NEURO: Awake; no lateralizing signs. SKIN: No Rash PSYCH; Flat affect Assessment & Plan Assessment/Plan (1) Acute UTI: PLAN: Plan Patient is a 70-year-old lady who presented with progressive generalized weakness. Had apparently fallen and fractured her ankle around . Presented to the emergency department with incontinence. Found to have UTI. Consult was placed to podiatry medicine 1. Acute complicated UTI with ESBL E. coli patient was managed with cefepime 2. Right ankle fracture ? Imaging studies did show mild to moderately displaced Tri mall ankle fracture with lateral deviation of the talus. Increase in soft tissue volume without notable defect patient managed with pain meds with consultation placed to podiatry medicine. Patient seen by Dr. Nj. Plan for patient to remain n.p.o. after midnight with plan for patient to undergo ORIF on 08/09/2025 ? 08/09/2025;Scheduled to undergo ORIF by Dr. Nj. Patient complains of feeling anxious patient reassured 3. Diabetes mellitus type II -patient's oral hypoglycemics held. Placed on long acting insulin, Accu-Cheks a.c. and at bedtime and covered with sliding scale insulin 4. Depression with anxiety ? Patient is on Wellbutrin Seroquel BuSpar continue 5. GERD ? On PPI 6. Diabetes mellitus type 2 with BMI of 36 ? Complicating care weight loss advised next 7. DVT prophylaxis ? On enoxaparin Charges/Coding Visit Charges Inpatient E&M: 24433 Subs Hosp L2
--- NOTE | 2025-08-09 09:15 | CASEMGMT ---
Social Work SW spoke with the patient regarding participating in therapy and DC plan. SW spoke with patient regarding the need to participate in therapy so a referral can be made to a SNF. Patient reported she did not refuse therapy. SW asked if she reviewed the SNF list. Patient reported she has not reviewed it. SW asked if SW can review it with her and she stated she can read it. SW asked for her to select her top 3 choices. She reported her is coming in today. SW suggested they review it together. SW informed her SW will follow up later today regarding her SNF choices. Patient is having ankle surgery today at 200pm. SW called therapy and they plan on working with the patient tomorrow morning. Plan: SW will follow up for SNF choices. Therapy will attempt to work with the patient tomorrow. MARIPOSA Robles
--- NOTE | 2025-08-09 13:46 | NURSING ---
Report called to surgery
--- NOTE | 2025-08-09 16:20 | PN.SURG_ITS ---
Subjective Subjective Patient is a 70-year-old female seen at bedside today for evaluation of right ankle fracture. Planned surgery was pushed to Friday due to emergent surgery coming into the emergency room today. This was discussed with the patient and she was understanding of this. Overall she is having improved pain to the right leg. Denies any acute events overnight. She did talk about some mild nausea at bedside visit today. She denies any new onset of trauma. Denies constitutional symptoms. No other pedal complaints at this time. Objective Data Objective Data Vital Signs: Vital Signs Temp Pulse Resp BP Pulse Ox O2 Del Method 97.1 F L 88 18 121/86 H 97 Room Air 08/09/25 16:08 08/09/25 16:08 08/09/25 16:08 08/09/25 16:08 08/09/25 16:08 08/09/25 16:11 Oxygen Delivery Method Room Air Weight: 104 kg Body Mass Index (BMI) 35.9 Intake & Output: Intake and Output for Last 24 Hours 08/07/25 08/08/25 08/09/25 23:59 23:59 23:59 Intake Total 1030.75 / 1250.75 995.75 / 1215.75 579.5 / 579.5 Output Total 1950 / 2250 2300 / 2600 1300 / 1300 Balance -919.25 / -999.25 -1304.25 / -1384.25 -720.5 / -720.5 Lab / Micro Data 08/09/25 04:20 08/09/25 04:20 Labs: Laboratory Results - last 24 hr 08/08/25 17:13: POC Glucose 147 H 08/08/25 21:43: POC Glucose 198 H 08/09/25 04:20: WBC 8.9, RBC 3.97 L, Hgb 12.1, Hct 37.0, MCV 93.2, MCH 30.5, MCHC 32.7, RDW Std Deviation 45.1 H, RDW Coeff of Jona 13.2, Plt Count 248, MPV 8.9, Sodium 137, Potassium 3.9, Chloride 107, Carbon Dioxide 18.1 L, Anion Gap 12, BUN 12, Creatinine 0.49 L, Estim Creat Clear Calc 83.47, Est GFR (MDRD) Non- Af 103, BUN/Creatinine Ratio 23.9 H, Glucose 145 H, Calcium 9.0, Phosphorus 3.7, Magnesium 2.3 H 08/09/25 06:05: POC Glucose 131 H 08/09/25 11:04: POC Glucose 147 H Micro: Microbiology 08/04/25 03:05 Urine, Catheterized Urine Culture - Final ESBL Escherichia coli 08/04/25 03:05 Mucosa - Nose SARS-CoV-2, Influenza & RSV (PCR) - Final Physical Exam Narrative Vascular: Nonpitting edema appreciated to the distal and proximal aspect of the posterior splint to the right lower extremity. Neurological: Light touch is intact to the exposed digits of the right lower extremity. Dermatological: Skin is well-hydrated to the exposed digit to the right lower extremity. Musculoskeletal: Minimal pain on palpation to the medial malleolus and lateral malleolus of the right lower extremity.` Muscle strength was deferred. No pain with calf compression. Const alert, oriented x3 and no apparent distress Assessment & Plan Assessment/Plan (1) Closed trimalleolar fracture of right ankle: QUALIFIERS: Encounter type: initial encounter Qualified Code(s): S82.851A - Displaced trimalleolar fracture of right lower leg, initial encounter for closed fracture PLAN: Patient was examined and evaluated. All findings were discussed with the patient. All questions were answered to the patient satisfaction. Radiographs (08/04/2025): Three-view nonweightbearing right ankle films show evidence of a mild to moderately displaced Tri mall ankle fracture with lateral deviation of the talus. Increase in soft tissue volume without notable defect. No additional measures or fractures are noted. CT scan (08/01/2025): Evidence of mild displaced comminuted trimalleolar ankle fracture to the right ankle. WBC: 8.0 -> 8.9 Glucose: 147 HbA1c (08/01/25): 9.2 Medicine: On board, medical management IV antibiotics cefepime Plan surgery for today was pushed to Friday due to emergent surgery coming from the emergency room. Will plan for open reduction internal fixation of the right ankle fracture 08/11/2025 at 11:30 AM. Please have the patient n.p.o. at midnight. Podiatry will continue to follow while patient is in house Please reach out to Dr. Nj with any question or concerns. Thank you for letting me be involved in patient care. (2) Diabetes mellitus type 2, insulin dependent: (3) Pain in right ankle: QUALIFIERS: Chronicity: acute Qualified Code(s): M25.571 - Pain in right ankle and joints of right foot
[2025-08-09] MEDS: buPROPion (XL) 300 MG TABLET.XL PO (20:46)
[2025-08-10] VITALS (7 sets, daily range): BP systolic 139–166; BP diastolic 66–99; PULSE 76–85; RESP 12–18; TEMP 36.6–36.9; O2SAT 95–100; BMI 35.7
[2025-08-10] MEDS: Cefepime HCl 2 GM in 0.9% Normal Saline (100mL MB+) 100 ML IV ×3 (05:17→22:46)
[2025-08-10 06:33] LABS: Hematocrit 39.3 % (37-47); Hemoglobin 13.1 g/dL (12.0-15.0); Mean Corp Hgb Conc 33.3 g/dL (32-36); Mean Corpuscular Volume 91.8 fL (81-99); Mean Platelet Vol. 8.9 fl (6.2-12.0); Platelet Count 299 K/mm3 (150-450); RBC Distribution Width CV 13.4 % (11.6-14.6); RBC Distribution Width SD 44.9 fl (35.1-43.9); Red Blood Count 4.28 M/mm3 (4.2-5.4); White Blood Count 8.7 K/mm3 (4.4-11.0)
[2025-08-10 07:23] LABS: Anion Gap 9 (5-15); BUN 10 mg/dL (4-19); BUN/Creat Ratio 19.8 RATIO (10-20); Calcium,Total 9.2 mg/dL (7.6-11.0); Carbon Dioxide 24.5 mmol/L (21.0-32.0); Chloride 105 mmol/L (98-108); Estimated Creatinine Clearance 83.26 ml/min (50-250); Glucose 151 mg/dL (70-99); Potassium 3.8 mmol/L (3.3-5.1)
[2025-08-10] MEDS: buPROPion (XL) 150 MG TABLET.XL PO (08:38)
[2025-08-10] MEDS: Nicotine (PBKC) 14 MG Patch TD (08:38)
[2025-08-10] MEDS: Senna/Docusate Sodium 1 Tablet 2 TABLET PO (08:38)
--- NOTE | 2025-08-10 09:17 | CASEMGMT ---
Social Work SW spoke with the patient about DC to SNF and participating in therapy at the hospital. SW explained she needs to participate in therapy because she cannot get approved to DC to SNF unless she has therapy notes. SW explained her insurance has to approve her DC to a SNF. Patient still has not picked any SNF's. SW attempted to discuss SNF options. Patient reported she wants her granddaughter to visit them first. SW asked if this could be done today. SW informed the patient SW will check back with her this afternoon. Patient surgery has been changed to Friday. MARIPOSA Robles
--- NOTE | 2025-08-10 10:04 | PN.HOSP_ITS ---
Reason for Visit Chief Complaint: N/V/D, headache, general debility, recent R ankle fracture with pain. Subjective Subjective Patient seen had a relatively uneventful night. Patient surgery was postponed to 08/12/2025. Patient pain remains well-controlled Objective Data Objective Data Vital Signs: Vital Signs Temp Pulse Resp BP Pulse Ox O2 Del Method 97.8 F 80 18 139/69 H 97 Room Air 08/10/25 08:34 08/10/25 08:34 08/10/25 08:34 08/10/25 08:34 08/10/25 08:34 08/10/25 08:34 Oxygen Delivery Method Room Air Weight: 103.5 kg Body Mass Index (BMI) 35.7 Intake & Output: Intake and Output for Last 24 Hours 08/08/25 08/09/25 08/10/25 23:59 23:59 23:59 Intake Total 995.75 / 1215.75 1099.5 / 1099.5 100 / 100 Output Total 2300 / 2600 2650 / 2650 400 / 400 Balance -1304.25 / -1384.25 -1550.5 / -1550.5 -300 / -300 Lab / Micro Data 08/10/25 05:28 08/10/25 05:28 Labs: Laboratory Results - last 24 hr 08/09/25 11:04: POC Glucose 147 H 08/09/25 16:07: POC Glucose 111 H 08/09/25 20:42: POC Glucose 148 H 08/10/25 05:28: WBC 8.7, RBC 4.28, Hgb 13.1, Hct 39.3, MCV 91.8, MCH 30.6, MCHC 33.3, RDW Std Deviation 44.9 H, RDW Coeff of Jona 13.4, Plt Count 299, MPV 8.9, Sodium 138, Potassium 3.8, Chloride 105, Carbon Dioxide 24.5, Anion Gap 9, BUN 10, Creatinine 0.50 L, Estim Creat Clear Calc 83.26, Est GFR (MDRD) Non-Af 102, BUN/Creatinine Ratio 19.8, Glucose 151 H, Calcium 9.2 08/10/25 06:41: POC Glucose 161 H Micro: Microbiology 08/04/25 03:05 Urine, Catheterized Urine Culture - Final ESBL Escherichia coli 08/04/25 03:05 Mucosa - Nose SARS-CoV-2, Influenza & RSV (PCR) - Final Physical Exam Narrative GENERAL: cooperative HEENT: Atraumatic; normocephalic EYES; Anicteric, Normal Conjunctiva NECK; supple, normal thyroid, RESPIRATORY: Diminished to auscultation CARDIOVASCULAR: Regular S1 S2, GI: soft, normoactive bowel sounds, : No Renal angle tenderness; EXTREMITIES: No edema, no clubbing, MUSCULOSKELETAL: Right ankle immobilized NEURO: Awake; no lateralizing signs. SKIN: No Rash PSYCH; Flat affect Assessment & Plan Assessment/Plan (1) Acute UTI: PLAN: Plan Patient is a 70-year-old lady who presented with progressive generalized weakness. Had apparently fallen and fractured her ankle around weekend. Presented to the emergency department with incontinence. Found to have UTI. Consult was placed to podiatry medicine 1. Acute complicated UTI with ESBL E. coli patient was managed with cefepime 2. Right ankle fracture ? Imaging studies did show mild to moderately displaced Tri mall ankle fracture with lateral deviation of the talus. Increase in soft tissue volume without notable defect patient managed with pain meds with consultation placed to podiatry medicine. Patient seen by Dr. Nj. Plan for patient to remain n.p.o. after midnight with plan for patient to undergo ORIF on 08/09/2025 ? 08/09/2025;Scheduled to undergo ORIF by Dr. Nj. Patient complains of feeling anxious patient reassured ? 08/10/2025;Patient seen had a relatively uneventful night. Patient surgery was postponed to 08/12/2025. Patient pain remains well-controlled 3. Diabetes mellitus type II -patient's oral hypoglycemics held. Placed on long acting insulin, Accu-Cheks a.c. and at bedtime and covered with sliding scale insulin ? 08/10/2025; patient glucose levels remain within acceptable levels 4. Depression with anxiety ? Patient is on Wellbutrin Seroquel BuSpar continue 5. GERD ? On PPI 6. Diabetes mellitus type 2 with BMI of 36 ? Complicating care weight loss advised next 7. DVT prophylaxis ? On enoxaparin 8. Physical deconditioning/debility ? Requested for PT OT eval and delinquency prevention social worker to assist with discharge planning Time spent in the patient's overall evaluation,decision-making process, review of diagnostic data, adjustment of management, discussion with other providers, nursing nursing and ancillary staff involved in patient's care documentation, 35 Minutes Charges/Coding Visit Charges Inpatient E&M: 73168 Subs Hosp L2
[2025-08-10] MEDS: Insulin Glargine-YFGN 100 UNIT/ML Pen 85 UNIT SC (11:03)
--- NOTE | 2025-08-10 12:21 | NURSING ---
Patient called out to go back to bed. This RN entered room and encouraged patient to stay up for lunch (in about 20 minutes). Patient very upset, stating she can hear the staff talking about her, states someone said already? when she asked to get back to bed before and upset her. Educated on importance of being up, reminded patient she hadn't been up for a couple days, let patient know if she was insisting could go back to bed but again encouraged to stay up for lunch and then could get back in bed after. Offered pain medication. Patient agreeable to pain medication and waiting until after lunch. Pain medication given. This RN reminded patient that staff is attempting to encourage her in movements that will help get her better. Patient began yelling at this RN stating she is 70 years old and doesn't need encouragement. 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 Once again asked patient if she was that upset if she wanted to get back to bed now. Patient shakes head and states she will wait till lunch, wont engage in anymore conversation. Reminded patient to call if she changed her mind, call light in reach.
[2025-08-10] MEDS: buPROPion (XL) 300 MG TABLET.XL PO (22:45)
[2025-08-10] MEDS: MELATONIN 3 MG TABLET PO (22:50)
[2025-08-10] MEDS: 0.9% Normal Saline (250mL Bag) 250 ML 15 ML IV (22:52)
[2025-08-10] MEDS: 0.9% Saline Lock 10 ML Syringe IV (22:53)
[2025-08-11 03:48] VITALS: BMI 35.2
[2025-08-11 04:30] VITALS: BP 139/67; PULSE 70; RESP 16; TEMP 36.7; O2SAT 96
[2025-08-11] MEDS: Cefepime HCl 2 GM in 0.9% Normal Saline (100mL MB+) 100 ML IV ×2 (06:11→13:56)
[2025-08-11 07:29] VITALS: PULSE 70; RESP 16
[2025-08-11 07:45] LABS: Hematocrit 37.9 % (37-47); Hemoglobin 12.4 g/dL (12.0-15.0); Mean Corp Hgb Conc 32.7 g/dL (32-36); Mean Corpuscular Volume 92.9 fL (81-99); Mean Platelet Vol. 8.9 fl (6.2-12.0); Platelet Count 272 K/mm3 (150-450); RBC Distribution Width CV 13.3 % (11.6-14.6); RBC Distribution Width SD 44.8 fl (35.1-43.9); Red Blood Count 4.08 M/mm3 (4.2-5.4); White Blood Count 9.7 K/mm3 (4.4-11.0)
[2025-08-11 08:14] LABS: Anion Gap 10 (5-15); BUN 12 mg/dL (4-19); BUN/Creat Ratio 23.3 RATIO (10-20); Calcium,Total 9.1 mg/dL (7.6-11.0); Carbon Dioxide 23.2 mmol/L (21.0-32.0); Chloride 106 mmol/L (98-108); Estimated Creatinine Clearance 82.71 ml/min (50-250); Glucose 163 mg/dL (70-99); Potassium 3.8 mmol/L (3.3-5.1)
--- NOTE | 2025-08-11 09:02 | PCM.PN.HOSP ---
Reason for Visit Chief Complaint: N/V/D, headache, general debility, recent R ankle fracture with pain. Subjective Subjective Patient seen had a relatively uneventful night. She however complains of pain in the ankle. Scheduled to undergo ORIF on 08/12/2025 Objective Data Objective Data Vital Signs: Vital Signs Temp Pulse Resp BP Pulse Ox O2 Del Method 98.1 F 70 16 139/67 H 96 Room Air 08/11/25 04:30 08/11/25 07:29 08/11/25 07:29 08/11/25 04:30 08/11/25 04:30 08/11/25 04:30 Oxygen Delivery Method Room Air Weight: 102.2 kg Body Mass Index (BMI) 35.2 Intake & Output: Intake and Output for Last 24 Hours 08/09/25 08/10/25 08/11/25 23:59 23:59 23:59 Intake Total 1099.5 / 1099.5 1000 / 1000 200 / 200 Output Total 2650 / 2650 1200 / 1600 400 / 400 Balance -1550.5 / -1550.5 -200 / -600 -200 / -200 Lab / Micro Data 08/11/25 06:55 08/11/25 06:55 Labs: Laboratory Results - last 24 hr 08/10/25 11:02: POC Glucose 226 H 08/10/25 16:07: POC Glucose 176 H 08/10/25 22:56: POC Glucose 155 H 08/11/25 06:10: POC Glucose 161 H 08/11/25 06:55: WBC 9.7, RBC 4.08 L, Hgb 12.4, Hct 37.9, MCV 92.9, MCH 30.4, MCHC 32.7, RDW Std Deviation 44.8 H, RDW Coeff of Jona 13.3, Plt Count 272, MPV 8.9, Sodium 139, Potassium 3.8, Chloride 106, Carbon Dioxide 23.2, Anion Gap 10, BUN 12, Creatinine 0.51 L, Estim Creat Clear Calc 82.71, Est GFR (MDRD) Non-Af 102, BUN/Creatinine Ratio 23.3 H, Glucose 163 H, Calcium 9.1 Micro: Microbiology 08/04/25 03:05 Urine, Catheterized Urine Culture - Final ESBL Escherichia coli 08/04/25 03:05 Mucosa - Nose SARS-CoV-2, Influenza & RSV (PCR) - Final Physical Exam Narrative GENERAL: cooperative HEENT: Atraumatic; normocephalic EYES; Anicteric, Normal Conjunctiva NECK; supple, normal thyroid, RESPIRATORY: Diminished to auscultation CARDIOVASCULAR: Regular S1 S2, GI: soft, normoactive bowel sounds, : No Renal angle tenderness; EXTREMITIES: No edema, no clubbing, MUSCULOSKELETAL: Right ankle immobilized NEURO: Awake; no lateralizing signs. SKIN: No Rash PSYCH; Flat affect Assessment & Plan Assessment/Plan (1) Acute UTI: PLAN: Plan Patient is a 70-year-old lady who presented with progressive generalized weakness. Had apparently fallen and fractured her ankle around weekend. Presented to the emergency department with incontinence. Found to have UTI. Consult was placed to podiatry medicine 1. Acute complicated UTI with ESBL E. coli patient was managed with cefepime 2. Right ankle fracture ? Imaging studies did show mild to moderately displaced Tri mall ankle fracture with lateral deviation of the talus. Increase in soft tissue volume without notable defect patient managed with pain meds with consultation placed to podiatry medicine. Patient seen by Dr. Nj. Plan for patient to remain n.p.o. after midnight with plan for patient to undergo ORIF on 08/09/2025 ? 08/09/2025;Scheduled to undergo ORIF by Dr. Nj. Patient complains of feeling anxious patient reassured ? 08/10/2025;Patient seen had a relatively uneventful night. Patient surgery was postponed to 08/12/2025. Patient pain remains well-controlled ? 08/11/2025; patient still complaining of pain in the right ankle. ORIF scheduled for 08/12/2025 3. Diabetes mellitus type II -patient's oral hypoglycemics held. Placed on long acting insulin, Accu-Cheks a.c. and at bedtime and covered with sliding scale insulin ? 08/10/2025; patient glucose levels remain within acceptable levels 4. Depression with anxiety ? Patient is on Wellbutrin Seroquel BuSpar continue 5. GERD ? On PPI 6. Diabetes mellitus type 2 with BMI of 36 ? Complicating care weight loss advised next 7. DVT prophylaxis ? On enoxaparin 8. Physical deconditioning/debility ? Requested for PT OT eval and older adult social work specialist to assist with discharge planning Charges/Coding Visit Charges Inpatient E&M: 57558 Subs Hosp L1
[2025-08-11 09:42] VITALS: BP 124/85; PULSE 85; RESP 18; TEMP 36.7; O2SAT 95
[2025-08-11] MEDS: buPROPion (XL) 150 MG TABLET.XL PO (09:46)
[2025-08-11] MEDS: Nicotine (PBKC) 14 MG Patch TD (09:46)
[2025-08-11] MEDS: Insulin Glargine-YFGN 100 UNIT/ML Pen 85 UNIT SC (09:47)
--- NOTE | 2025-08-11 10:43 | CASEMGMT ---
Social Work SW spoke with the patient and she reported she would like to DC to [facility] [place] for SN[facility]. SW informed her that SW will send the referral to [facility]. MARIPOSA Robles
--- NOTE | 2025-08-11 11:59 | CASEMGMT ---
Addendum entered by Lisa Moe 08/11/25 13:10: [facility] has accepted. Original Note: Discharge Planning Referral sent via [facility] to [facility]. Lisa Moe DC Planning Asst.
[2025-08-11 15:25] VITALS: BP 136/79; PULSE 85; RESP 16; TEMP 36.4; O2SAT 96
[2025-08-11 19:15] VITALS: PULSE 88; RESP 16; O2SAT 96
[2025-08-11 20:30] VITALS: BP 169/94; PULSE 88; RESP 18; TEMP 37.1; O2SAT 98
[2025-08-11] MEDS: buPROPion (XL) 300 MG TABLET.XL PO (21:26)
[2025-08-11] MEDS: MELATONIN 3 MG TABLET PO (21:33)
[2025-08-12] VITALS (19 sets, daily range): BP systolic 101–175; BP diastolic 71–116; PULSE 80–94; RESP 16–20; TEMP 36.1–37.2; O2SAT 92–99; BMI 34.8
--- NOTE | 2025-08-12 07:42 | PCM.PN.HOSP ---
Reason for Visit Chief Complaint: N/V/D, headache, general debility, recent R ankle fracture with pain. Subjective Subjective Patient seen scheduled to undergo ORIF Objective Data Objective Data Vital Signs: Vital Signs Temp Pulse Resp BP Pulse Ox O2 Del Method 98.9 F 80 16 172/75 H 98 Room Air 08/12/25 02:30 08/12/25 06:44 08/12/25 06:44 08/12/25 02:30 08/12/25 06:44 08/12/25 06:44 Oxygen Delivery Method Room Air Weight: 100.9 kg Body Mass Index (BMI) 34.8 Intake & Output: Intake and Output for Last 24 Hours 08/10/25 08/11/25 08/12/25 23:59 23:59 23:59 Intake Total 1000 / 1000 550 / 550 Output Total 1200 / 1600 1250 / 1250 400 / 400 Balance -200 / -600 -700 / -700 -400 / -400 Lab / Micro Data 08/11/25 06:55 08/11/25 06:55 Labs: Laboratory Results - last 24 hr 08/11/25 06:55: WBC 9.7, RBC 4.08 L, Hgb 12.4, Hct 37.9, MCV 92.9, MCH 30.4, MCHC 32.7, RDW Std Deviation 44.8 H, RDW Coeff of Jona 13.3, Plt Count 272, MPV 8.9, Sodium 139, Potassium 3.8, Chloride 106, Carbon Dioxide 23.2, Anion Gap 10, BUN 12, Creatinine 0.51 L, Estim Creat Clear Calc 82.71, Est GFR (MDRD) Non-Af 102, BUN/Creatinine Ratio 23.3 H, Glucose 163 H, Calcium 9.1 08/11/25 09:46: POC Glucose 217 H 08/11/25 12:37: POC Glucose 184 H 08/11/25 16:53: POC Glucose 139 H 08/11/25 21:39: POC Glucose 188 H 08/12/25 06:35: POC Glucose 122 H Micro: Microbiology 08/04/25 03:05 Urine, Catheterized Urine Culture - Final ESBL Escherichia coli 08/04/25 03:05 Mucosa - Nose SARS-CoV-2, Influenza & RSV (PCR) - Final Physical Exam Narrative GENERAL: cooperative HEENT: Atraumatic; normocephalic EYES; Anicteric, Normal Conjunctiva NECK; supple, normal thyroid, RESPIRATORY: Diminished to auscultation CARDIOVASCULAR: Regular S1 S2, GI: soft, normoactive bowel sounds, : No Renal angle tenderness; EXTREMITIES: No edema, no clubbing, MUSCULOSKELETAL: Right ankle immobilized NEURO: Awake; no lateralizing signs. SKIN: No Rash PSYCH; Flat affect Assessment & Plan Assessment/Plan (1) Acute UTI: PLAN: Plan Patient is a 70-year-old lady who presented with progressive generalized weakness. Had apparently fallen and fractured her ankle around . Presented to the emergency department with incontinence. Found to have UTI. Consult was placed to podiatry medicine 1. Acute complicated UTI with ESBL E. coli patient was managed with cefepime 2. Right ankle fracture ? Imaging studies did show mild to moderately displaced Tri mall ankle fracture with lateral deviation of the talus. Increase in soft tissue volume without notable defect patient managed with pain meds with consultation placed to podiatry medicine. Patient seen by Dr. Nj. Plan for patient to remain n.p.o. after midnight with plan for patient to undergo ORIF on 08/09/2025 ? 08/09/2025;Scheduled to undergo ORIF by Dr. Nj. Patient complains of feeling anxious patient reassured ? 08/10/2025;Patient seen had a relatively uneventful night. Patient surgery was postponed to 08/12/2025. Patient pain remains well-controlled ? 08/11/2025; patient still complaining of pain in the right ankle. ORIF scheduled for 08/12/2025 ? 08/12/2025; patient scheduled to undergo ORIF 3. Diabetes mellitus type II -patient's oral hypoglycemics held. Placed on long acting insulin, Accu-Cheks a.c. and at bedtime and covered with sliding scale insulin ? 08/10/2025; patient glucose levels remain within acceptable levels 4. Depression with anxiety ? Patient is on Wellbutrin Seroquel BuSpar continue 5. GERD ? On PPI 6. Diabetes mellitus type 2 with BMI of 36 ? Complicating care weight loss advised next 7. DVT prophylaxis ? On enoxaparin 8. Physical deconditioning/debility ? Requested for PT OT eval and social services director to assist with discharge planning ? 08/12/2025; plan is for patient to be discharged to care home facility following her procedure Time spent in the patient's overall evaluation,decision-making process, review of diagnostic data, adjustment of management, discussion with other providers, nursing nursing and ancillary staff involved in patient's care documentation, 38 Minutes Charges/Coding Visit Charges Inpatient E&M: 66252 Subs Hosp L2
--- NOTE | 2025-08-12 09:10 | OP.PCM_ITS ---
Operative Report (Standard) Operative Information Date of Procedure: 08/12/25 Pre-Operative Diagnosis: 1. Pain, right ankle 2. Dislocated ankle fracture, right lower extremity Post-Operative Diagnosis: Same as preoperative diagnosis Surgery/Procedure Performed: Procedure #1: Open reduction internal fixation fibular fracture, right lower extremity Procedure #2: Open reduction internal fixation medial malleolus fracture, right lower extremity Procedure #3: Stress views, right lower extremity Procedure #4: Syndesmotic repair, right lower extremity Procedure #5: Application posterior splint, right lower extremity golf ball inspector: Yes Software Quality Analyst: Nestor Ponce Tasks completed by assistant grocery store manager: Closing, Implanting device and Retracting Additional training and development assistant?: No Type of Anesthesia: General/Regional and Local RN Documented Start/Stop Times: Operation Date: 08/12/25 11:30 Case Time
--- NOTE | 2025-08-12 09:10 | PCM.OPRPT ---
Operative Report (Standard) Operative Information Date of Procedure: 08/12/25 Pre-Operative Diagnosis: 1. Pain, right ankle 2. 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: Yes Control Valve Mechanic: Nestor Ponce Tasks completed by first crusher: Closing, Implanting device and Retracting Additional placement assistant?: No Type of Anesthesia: General/Regional and Local RN Documented Start/Stop Times: Operation Date: 08/12/25 11:30 Case Time Into Pre-Op 08/12/25 10:30 Anesthesia Start 08/12/25 11:19 Into Room 08/12/25 11:19 Procedure Start 08/12/25 11:44 Procedure End 08/12/25 13:46 Anesthesia End 08/12/25 13:50 Into Recovery 08/12/25 13:50 Out of Room 08/12/25 13:50 Procedure Start Time: 11:19 Procedure Stop Time: 13:46 Select all DRAINS/GRAFTS/IMPLANTS that apply: Implanted device Implanted device details: Arthrex ankle fracture set Special Medications: Per anesthesia Estimated Blood Loss: 35 mL Fluids Replaced: Paresthesia Specimen collected: No Description of surgery: Indications For Operation: Mrs. Valero is a 70-year-old diabetic female who was admitted to [facility] for worsening UTI approximately 1 week ago. Patient ultimately suffered an ankle fracture approximately 2 to 3 weeks ago and was seen by orthopedics who declined her case due to elevated blood sugar. Upon admission for her UTI patient did have some evidence of hyperglycemia which was controlled by the medicine team. She also had some episodes of leukocytosis that was also treated by the medicine team. After the patient's leukocytosis and hyperglycemia was normalized while in the hospital we elected to move forward with the urgent open reduction internal fixation of the right ankle fracture that was displaced. All risk and benefits were discussed with the patient in great detail. We did have a bedside surgical consultation which the patient understood that there could be severe consequences if this was not fixed and even if we were to fix this she could end up having some wound care complications due to her hypoglycemia which she will control at this current nursing facility. Chart reviewed and consent was signed due to the lack of anatomical position and dislocation of the right ankle fracture it was deemed necessary at this time to take the patient to the operating room performed above procedure to help reduce her constant pain and give the patient a functional foot to continue to walking comfortably.. The nature of the problem, anticipated procedures, postop recovery/convalences and risk/complications include but not limited to infection, wound healing complications, digital amputation, hypertrophic scarring, numbness, tingling, chronic pain, CRPS, over and under correction, recurrence of deformity, DVT and or PE and the need for further surgery have been discussed in great detail with the patient. All questions have been answered to the patient's satisfaction. There are no guarantees given as to the outcome of the procedure. Description of Procedure: Under mild sedation, the patient was brought into the operating room and placed on the operating table in supine position. Once the patient was under general anesthesia with laryngeal mask, the right lower extremity was blocked using approximately 20 cc 0.25% Marcaine plain. All bony prominences well-padded and a bump was placed under the right hip. Patient will be getting a popliteal block per anesthesia in the PACU following the procedure. Please see anesthesia notes for further detail. Next, a well-padded thigh tourniquet was applied to the right lower extremity. Next, the right lower extremity was prepped and draped in normal aseptic manner. Next, a timeout was then undertaken verifying the correct patient, extremity, visibility of preoperative markings, availability of the equipment. Next, attention was directed to the right lower extremity. Using a 6 Esmarch, right lower extremity was exsanguinated and elevated to 60 degrees for 1 minute. Procedure #1: Open reduction internal fixation fibular fracture, right lower extremity Attention was directed to the right lower extremity. Prior to the incision, using a large C-arm fluoroscopy the ankle joint, the syndesmosis, the lateral border of the fibula and the medial border of the medial malleolus were all marked out prior to the incision. Next, attention was directed to the lateral side of the right ankle at the level of the fibula. A full-thickness tissue down to subcutaneous tissue was performed. Continued blunt dissection was carried down to bone. Once the fibula was identified sharp dissection was carried down around the fracture site exposing the distal and proximal fibula. There was noted to be a butterfly fragment at the level of the diaphysis as well as comminution to the distal fibula. Using a Ripton and osteotome all fracture sites were freed, and using a curette the hematomas were all removed. The area was flushed with copious normal saline. Due to the contracture of the distal fracture, the anatomical Arthrex plate was locked in place distally using 2.7 mm locking screws screws and using push pull technique the fracture fragments were pushed out to length and held in place with BB tacks. Position of the plate against the fibula was checked with an AP and lateral view of large C-arm fluoroscopy. Once ideal position was confirmed the proximal plate was fixated and plate with 3.5mm nonlocking screws. The proximal BB tack was removed. Next, 2 interfrag screws being 2.7 mm in length were placed using AO technique across the butterfly fragment to 2 finger tightness. Next, the incision was flushed with copious normal saline. Procedure #2: Open reduction internal fixation medial malleolus fracture, right lower extremity Next, AP view was obtained with the large C arm fluoroscopy was obtained and showed excellent reduction of the posterior malleolus and medial malleolus. We decided at this time to only fix the medial malleolus. Percutaneous K wires were placed across the medial malleolus and fracture site, drilled proximally and 2 50 mm 4-0 screws were placed with excellent anatomic reduction with one of the screws having a washer. The percutaneous incisions were flushed with copious amounts normal saline. Procedure #3: Stress views, right lower extremity Next, the syndesmosis was stressed with dorsiflexion external rotation with the knee bent and there showed evidence of gapping at the syndesmosis at this time. We will move forward with fixing the syndesmosis with a tight rope and laddering screw technique. Procedure #4: Syndesmotic repair, right lower extremity Next, attention was directed to the syndesmosis, using the large K wire for the Arthrex tight rope, that was placed perpendicular to the joint per the manufactures recommendation with the rep in the room. The tight rope was placed and deployed and hand tightened in place. Next, multiple nonlocking 3.5 mm fully threaded screws were placed and a ladder technique due to the patient's neuropathy. Once the screws were placed across the syndesmosis, stressing of the syndesmosis was repeated and there showed no evidence of moving at the syndesmosis at this time. Next, the remaining 2 screws proximally were filled using a combination of locking and nonlocking screws. Next, the incision was flushed with copious amounts normal saline. At this time the right thigh tourniquet was deflated and all bleeders were cauterized and ligated as necessary. The deep layer of the lateral incision was reapproximated closed with 2-0 Vicryl in running locking suture technique. The subcutaneous layer on the lateral incision was reapproximated closed with 2-0 Vicryl and running suture technique. The skin was reapproximated closed on the lateral side with bobby. The percutaneous medial malleolus incisions were closed with bobby. Procedure #5: Application posterior splint, right lower extremity The right lower extremities were cleaned and patted dry. All incision were dressed with Betadine soaked Adaptic, dry sterile dressing and double layer Decker AO splint was applied at 90 degrees to the right lower extremity. The patient tolerated the procedure and anesthesia well and apparent satisfactory condition and was transported to the PACU for further monitoring prior to discharge back to the floor. Vital signs stable and vascular status intact to all digits bilateral. Post Operative Plan: Weightbearing: Patient will be nonweightbearing to right lower extremity. Full weightbearing to left lower extremity. All weightbearing should be assisted with walker. Antibiotics: 900 mg kanamycin through the IV DVT Prophylaxis: Per medicine Pathak: None Dressing: Betadine soaked Adaptic dry sterile dressing double layer Decker AO splint to the right lower extremity at 90 degrees. X-Rays: Post-operative films taken on the operating room. Pain Medication: Percocet 5/325 Follow-up: Patient will follow-up 1 week to 10 days post discharge being escorted to clinic by transport from her SNF. From a podiatry perspective the patient is cleared to discharge once pre-CERT is approved to SNF facility. Surgical Findings: 1. Evidence of dislocated ankle fracture. 2. Successful open reduction internal fixation back to anatomical position to the ankle fracture of the right lower extremity. Complications Complications: No Admit VTE Documentation VTE Present on Admission: No VTE Mechan Device Prophylaxis: SCD's VTE Pharm Prophylaxis ordered?: Yes
[2025-08-12] MEDS: Lactated Ringers 1,000 ML 15 ML IV (10:44)
--- NOTE | 2025-08-12 10:56 | PCM.PRE.AN2 ---
ASA Classification* ASA Classification ASA Classification: 3 Assessment & Plan Anesthesia* Anesthesia Assessment Anesthesia Assessment: Discussed sedation and/or anesthesia options, risks, benefits, and alternatives with patient/parents/legal guardian/POA. Questions invited. The patient/parents/legal guardian/POA seems to understand and agrees to proceed with anesthesia plan. Reviewed the physical assessment, medical history, allergy history and patient home medications list prior to surgery/procedure/anesthetic and documented any changes. Performed airway and anesthesia risk assessments. Anesthesia Type Anesthesia Type: General and Block (Patient is consented for popliteal block.) History Source History Obtained from:: Patient and Chart Anesthesia Focused Assessment* Temperature: 98.3 F Pulse Rate: 88 Blood Pressure: 149/86 Respiratory Rate: 16 Pulse Ox: 99 Oxygen Delivery Method: Room Air Airway Assessment Mouth opens: >3 cm Mallampati Score: III Teeth Condition: Dentures (Patient has full upper and lower dentures. They are out.) Neck Range of motion (ROM): Limited ROM (Somewhat Decreased) Labs Anesthesia Preop lab: CBC WBC, (4.4-11.0) 9.7 K/mm3 08/11/25, 06:55 RBC, (4.2-5.4) 4.08 M/mm3 L 08/11/25, 06:55 Hgb, (12.0-15.0) 12.4 g/dL 08/11/25, 06:55 Hct, (37-47) 37.9 % 08/11/25, 06:55 Plt Count, (150-450) 272 K/mm3 08/11/25, 06:55 CHEMISTRY Potassium, (3.3-5.1) 3.8 mmol/L 08/11/25, 06:55 Sodium, (133-145) 139 mmol/L 08/11/25, 06:55 Magnesium, (1.5-2.2) 2.3 mg/dL H 08/09/25, 04:20 Phosphorus, (2.7-4.5) 3.7 mg/dL 08/09/25, 04:20 BUN, (4-19) 12 mg/dL 08/11/25, 06:55 Creatinine, (0.70-1.20) 0.51 mg/dL L 08/11/25, 06:55 Glucose, (70-99) 163 mg/dL H 08/11/25, 06:55 POC Glucose, (74-106) 122 mg/dL H Today, 06:35 TSH, (0.300-4.200) 0.570 uIU/mL 05/15/25, 00:31 COAG PT, (11.7-14.9) 14.0 SECONDS 08/01/25, 14:28 Pre-Assessment Diagnosis/Proposed Procedure Planned Operative Procedure(s): Open reduction internal fixation of the fibula and medial malleolus, stress views, syndesmotic repair, right lower extremity. 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 When Was Last Pacemaker Check QUESTION #4 FULL TEXT: You/Your Family Experience fever (hyperthermia) with Anesthesia Last Oral Intake Last Oral intake: Last Oral Intake NPO since 00:00 08/12/25 08:59 Meds taken in AM with sips of No 08/12/25 08:59 water? Meds patient instructed to take am of surgery PONV PONV - manual lathe machinist: PONV - manual lathe machinist Female HX of Motion Sickness HX of N/V After Surgery Non-Smoker Duration of Surgery greater than 60 minutes Number of Risk Factors PONV Score Height & Weight Height & Weight: Anesthesia: Height & Weight Height 5 ft 7 in 08/12/25 08:59 Weight: 100.9 kg 08/12/25 08:59 Body Mass Index (BMI) 34.8 08/12/25 08:59 Respiratory Assessment Respiratory Assessment - manual lathe machinist: Respiratory Tract Infection Hx - manual lathe machinist Hx Respiratory Tract Infection No 08/12/25 08:59 STOP Sleep Apnea STOP Sleep Apnea - manual lathe machinist: STOP Sleep Apnea - manual lathe machinist Hx Hypertension Yes 08/10/25 10:48 Hx Sleep Apnea No 08/04/25 05:23 CPAP No 08/04/23 21:49 BIPAP No 08/04/23 21:49 Do you snore loudly (louder No 08/04/25 05:23 than talking or can be heard Do you often feel tired/ No 08/04/25 05:23 fatigued/ sleepy during daytime? Has anyone observed you stop No 08/04/25 05:23 breathing during sleep? STOP Results Negative 08/04/25 05:23 QUESTION #5 FULL TEXT : Do you snore loudly (louder than talking or can be heard through closed doors)? 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 Specify any problems Hx of Preganancy in last 3 No 08/04/25 05:23 Months Nurse Filling Out Transfusion MGROVE 08/04/25 05:23 & Questions: Date: 08/04/25 08/04/25 05:23 Time: 05:24 08/04/25 05:23 Patient unable to answer at this time (ie. confused, unrespo /Reproduction History /Reproductive History - manual lathe machinist: /Reproductive Hx- manual lathe machinist Hx Now No 08/12/25 08:59 Gestational Age (in weeks): EDC: Hx Hx Para Hx Section SAB No 08/12/25 08:59 Does the father of the baby or his family experience fever w Father of the baby Malignant Hypertension history comment Active Medications Active Medications: Current Medications Generic Name Dose Route Start Last Admin Trade Name Freq PRN Reason Stop Dose Admin Acetaminophen 650 mg 08/04/25 05:10 08/11/25 20:31 Acetaminophen 325 Mg Tablet PO 650 mg Q4H PRN PRN Administration Fever, pain 1-06/03 Albuterol Sulfate 2.5 mg 08/04/25 05:10 Albuterol 2.5 Mg/3 Ml Vial.Neb. INHALATION Q2H PRN PRN Dyspnea, wheezing Albuterol/Ipratropium 3 ml 08/04/25 05:10 08/12/25 06:43 Ipratropium/Albuterol Sulfate 3 Ml Ampul.Neb INHALATION 3 ml Q6HWA.RT RAUL Administration Bupropion HCl 300 mg 08/04/25 22:00 08/11/25 21:26 Bupropion (Xl) 300 Mg Tablet.Xl PO 300 mg QHS RAUL Administration Bupropion HCl 150 mg 08/04/25 10:00 08/11/25 09:46 Bupropion (Xl) 150 Mg Tablet.Xl PO 150 mg DAILY RAUL Administration Buspirone HCl 20 mg 08/04/25 06:00 08/12/25 06:37 Buspirone 5 Mg Tablet PO Not Given TID RAUL Calamine/Phenol 1 applic 08/05/25 10:00 08/11/25 21:27 Menthol/Lanolin/Calamine/Znox 113 Gm Tube TOPICAL 1 applic BID RAUL Administration Protocol Cyclobenzaprine HCl 5 mg 08/08/25 13:03 Cyclobenzaprine Hcl 5 Mg Tablet PO TID PRN MUSCLE SPASM Enoxaparin Sodium 40 mg 08/04/25 10:00 08/11/25 09:47 Enoxaparin 40 Mg/0.4 Ml Syringe SC 40 mg DAILY RAUL Administration Gabapentin 400 mg 08/04/25 06:00 08/12/25 06:37 Gabapentin 400 Mg Capsule PO Not Given TID RAUL Glucagon 1 mg 08/04/25 05:10 Glucagon 1 Mg/Ml Syringe IM X1 PRN Hypoglycemia Protocol Dextrose 250 mls @ 0 mls/hr 08/04/25 05:10 Dextrose 10%-Water IV .Q0M PRN HYPOGLYCEMIA Protocol As Directed Sodium Chloride 250 mls @ 15 mls/hr 08/04/25 05:12 08/11/25 07:46 IV Infused .[id number] PRN Infusion Saline Flush Sodium Chloride 250 mls @ 15 mls/hr 08/04/25 05:12 08/11/25 16:41 IV Infused .[id number] PRN Infusion Additional IVPB Infusion Lactated Ringer's 1,000 mls @ 15 mls/hr 08/12/25 10:45 08/12/25 10:44 IV 15 mls/hr .Q48H RAUL Administration Clindamycin Phosphate 900 mg in 50 mls @ 75 mls/hr 08/12/25 11:00 Cleocin IV 08/12/25 11:39 INTRAOP ONE Insulin Glargine 85 unit 08/07/25 10:00 08/11/25 09:47 Insulin Glargine-Yfgn 100 Unit/Ml Pen SC 85 unit DAILY RAUL Administration Insulin Human Lispro 0 unit 08/04/25 07:00 08/12/25 06:37 Insulin Lispro 100 Unit/Ml Insuln.Pen SC Not Given ACHS [facility] Protocol Melatonin 3 mg 08/04/25 05:10 08/11/25 21:33 Melatonin 3 Mg Tablet PO 3 mg QHS PRN PRN Administration INSOMNIA Morphine Sulfate 2 mg 08/04/25 05:10 08/10/25 08:38 Morphine 2 Mg/Ml Syringe IV 2 mg Q3H PRN PRN Administration Pain Score 6-10 Nicotine 14 mg 08/04/25 10:00 08/11/25 09:46 Nicotine (Pbkc) 14 Mg Patch TD 14 mg DAILY RAUL Administration Nystatin 1 applic 08/04/25 10:00 08/11/25 21:26 Nystatin Powder 15gm Bottle TOPICAL 1 applic BID RAUL Administration Protocol Ondansetron HCl 4 mg 08/04/25 05:10 08/09/25 22:23 Ondansetron 4 Mg/2 Ml Vial IV 4 mg Q8H PRN PRN Administration NAUSEA/VOMITING Oxycodone HCl 5 mg 08/04/25 05:10 08/11/25 20:31 Oxycodone 5 Mg Tablet PO 5 mg Q4H PRN PRN Administration Pain Score 4-10 Pantoprazole Sodium 40 mg 08/07/25 10:00 08/11/25 09:46 Pantoprazole Sodium 40 Mg Tablet PO 40 mg DAILY RAUL Administration Quetiapine Fumarate 25 mg 08/04/25 05:10 Quetiapine 25 Mg Tablet PO TID PRN PRN mental health Protocol Quetiapine Fumarate 300 mg 08/04/25 22:00 08/11/25 21:26 Quetiapine 100 Mg Tablet PO 300 mg QHS RAUL Administration Senna/Docusate Sodium 2 tablet 08/04/25 05:10 08/10/25 08:38 Senna/Docusate Sodium 1 Tablet PO 2 tablet BID PRN PRN Administration Constipation Sodium Chloride 10 - 40 ml 08/04/25 05:12 08/10/25 22:53 0.9% Saline Lock 10 Ml Syringe IV 10 ml UD PRN Administration SALINE FLUSH [facility] Medical History History of ESBL E. coli infection Wears dentures Wears glasses Post-menopausal Anxiety History of steroid therapy Insulin dependent diabetes mellitus Arthritis High cholesterol Migraine headache Injury of head and neck Gastric reflux Smoker History of stress test Hypertension Cardiology follow-up encounter GERD (gastroesophageal reflux disease) Smoker Urinary tract infection UTI due to extended-spectrum beta lactamase (ESBL) producing Escherichia coli Secondary polycythemia Gastritis Panic disorder with agoraphobia Depression Diarrhea Leukocytosis Essential (primary) hypertension Frequent headaches Urinary incontinence Diabetes Gastroparesis Type 2 diabetes mellitus without complications Vision problem GI problem COPD (chronic obstructive pulmonary disease) Diabetes type 2, controlled Chronic bronchitis Chronic UTI Anxiety and depression Seasonal allergies Tobacco abuse COPD (chronic obstructive pulmonary disease) Fibromyalgia Home Medications ?Medication ?Instructions ?Recorded ?Last Taken ?Type insulin lispro 100 unit/mL See Protocol subcut TID diabetes 01/02/22 07/20/25 History subcutaneous pen (Humalog KwikPen (U-100) Insulin) quetiapine 300 mg tablet 300 mg PO QHS mood 01/11/22 07/19/25 History albuterol sulfate 90 mcg/actuation 90 inh inhalation Q4H PRN PRN sob 01/17/22 07/20/25 History aerosol inhaler bupropion HCl 150 mg 24 hr tablet, 150 mg PO DAILY mood 01/17/22 07/19/25 History extended release buspirone 10 mg tablet 20 mg PO TID mood 01/17/22 07/20/25 History omeprazole 40 mg capsule,delayed 40 mg PO DAILY gerd 05/01/22 07/20/25 History release promethazine 25 mg tablet 25 mg PO Q6H PRN nausea 08/04/23 07/20/25 History quetiapine 25 mg tablet 25 mg PO TID PRN mental health 08/04/23 07/19/25 History albuterol sulfate 2.5 mg/3 mL 2.5 mg inhalation Q8H PRN 07/20/25 Unknown History (0.083 %) solution for nebulization shortness of breath or wheezing bupropion HCl 300 mg 24 hr tablet, 300 mg PO QHS 07/20/25 07/19/25 History extended release fluticasone fur. 200 mcg-umeclid 1 ea inhalation DAILY 07/20/25 07/20/25 History 62.5 mcg-vilant 25 mcg inhalat.powder (Trelegy Ellipta) gabapentin 400 mg capsule 400 mg PO TID 07/20/25 07/20/25 History insulin glargine U-300 conc 300 80 unit subcut DAILY 07/20/25 Unknown History unit/mL (1.5 mL) subcutaneous pen (Toujeo SoloStar U-300 Insulin) nystatin 100,000 unit/gram topical 1 applic topical DAILY 07/20/25 07/19/25 History powder Allergy/AdvReac Type Severity Reaction Status Date / Time Penicillins Allergy Hives Verified 08/04/25 04:06 Sulfa (Sulfonamide Allergy Hives Verified 08/04/25 04:06 Antibiotics) varenicline (From Chantix) Allergy Other Verified 08/04/25 04:06 Family History Brother Diabetes Hypertension Mother Heart disease Father COPD (chronic obstructive pulmonary disease) Surgical History History of cardiac catheterization History of appendectomy H/O tubal ligation S/P ORIF (open reduction internal fixation) fracture bladder sling S/P complete hysterectomy Hx of cholecystectomy Social History household members: family Smoking Status: Current every day smoker tobacco type: cigarettes Smoking packs per day: 0.5 Smoking cigarettes per day: 10.0 second hand exposure: Yes alcohol intake: never substance use type: does not use Review of Systems (Anesthesia) ROS Narrative System reviewed and no additional complaints, except as documented.
[2025-08-12] MEDS: Lidocaine 1% (5 ml sdv) 5 ML Vial IV (11:24)
[2025-08-12] MEDS: fentaNYL 100 MCG/2 ML Ampul 200 MCG IV (12:15)
[2025-08-12] MEDS: dexMEDEtomidine 200 MCG/2 ML ML 6 MCG IV (12:16)
--- NOTE | 2025-08-12 12:30 | RAD_ITS ---
PROCEDURE: Intraoperative fluoroscopic services. 08/12/2025 REASON FOR EXAM: ORIF RT ANKLE TECHNIQUE: Procedure Code: RADANK2 Modality: DX Procedure: ANKLE 2 VIEWS. Intraoperative fluoroscopy provided for open reduction and internal fixation of the distal tibial and fibular fractures. Fluoroscopy: 4 minutes and 22 seconds. Radiation dose: 10.5 mGy. 5 images were submitted. Laterality: Right ankle. COMPARISON: July 20, 2025. FINDINGS: Intraoperative imaging provided for open reduction internal fixation of the distal fibular fracture and medial malleolar fracture. Satisfactory alignment. RAD/Ankle 2 Views IMPRESSION: Intraoperative fluoroscopic services provided for ORIF of the distal fibular an d medial malleolar fracture. There is good alignment. Reading Location: [id number]
--- NOTE | 2025-08-12 13:58 | PCM.POST.ANE ---
Anesthesia: Postop Eval I Current Vital Signs Temperature: 98.5 F Pulse Rate: 82 Blood Pressure: 158/77 Respiratory Rate: 20 Pulse Ox: 94 Oxygen Delivery Method: Room Air Assessment Airway patent: Yes Spontaneous unlabored respirations: Yes Mental status: Awake and Calm nausea: No Vomiting: No Anesthesia Complication: No Fluid Hydration Crystalloid volume administer (ml): 1,200 Total IV fluid infused: 1,200 Progress Note Anesthesia document: Postop Eval 1 completed: Yes
--- NOTE | 2025-08-12 14:27 | CASEMGMT ---
Social Work SW completed the PASSR and put in the chart. MARIPOSA Robles
--- NOTE | 2025-08-12 15:54 | CASEMGMT ---
Social Work Patient accepted at [facility],? pre-cert not started due to patient not seeing therapy post surgery, waiting on therapy notes, PASSR completed and it is in the patients chart, transport form started MARIPOSA Robles
[2025-08-12] MEDS: Nicotine (PBKC) 14 MG Patch TD (16:10)
[2025-08-12] MEDS: buPROPion (XL) 150 MG TABLET.XL PO (16:12)
[2025-08-12] MEDS: Insulin Glargine-YFGN 100 UNIT/ML Pen 85 UNIT SC (16:20)
--- NOTE | 2025-08-12 16:23 | CASEMGMT ---
Social Work SW spoke with the patient and informed her that she will be here through the weekend. MARIPOSA العراقي
--- NOTE | 2025-08-12 20:26 | POSTOPAN2_ITS ---
Anesthesia Postop Eval I Sum Postop Eval Completion status Anesthesia document: Postop Eval 1 completed: Yes Anesthesia Postop Eval I Summary Anesthesia Postop Eval I Summary: Anesthesia Postop Eval I: Assessment Summary Airway patent Yes 08/12/25 13:59 MARINE [email or web address] Spontaneous unlabored Yes 08/12/25 13:59 MARINE [email or web address] respirations Mental status Awake,Calm 08/12/25 13:59 MARINE [email or web address] nausea No 08/12/25 13:59 MARINE [email or web address] Vomiting No 08/12/25 13:59 MARINE [email or web address] Anesthesia Postop Eval I: Fluid Summary Crystalloid volume administer 1,200 08/12/25 13:59 MARINE [email or web address] (ml) Colloids volume administered ( ml) Blood Product volume administered (ml) Total IV fluid infused 1,200 08/12/25 13:59 MARINE [email or web address].[email or web address] Anesthesia Postop Eval I: Summary Notes Anesthesia Complication No 08/12/25 13:59 MARINE [email or web address] Anesthesia Complication Comment: Post-operative progress note Anesthesia: Postop Eval II Evaluation Mental status: Awake and Calm Pain Level: 6 nausea: No Vomiting: No Progress Note Post-operative progress note: Patient's final pain level is a 6/10 despite significant IV medications plus a popliteal nerve block. She states it is manageable. Complications Anesthesia Complication: No
--- NOTE | 2025-08-12 20:26 | PCM.POSTANE2 ---
Anesthesia Postop Eval I Sum Postop Eval Completion status Anesthesia document: Postop Eval 1 completed: Yes Anesthesia Postop Eval I Summary Anesthesia Postop Eval I Summary: Anesthesia Postop Eval I: Assessment Summary Airway patent Yes 08/12/25 13:59 DESULFURIZER [email or web address] Spontaneous unlabored Yes 08/12/25 13:59 DESULFURIZER [email or web address] respirations Mental status Awake,Calm 08/12/25 13:59 DESULFURIZER [email or web address] nausea No 08/12/25 13:59 DESULFURIZER [email or web address] Vomiting No 08/12/25 13:59 DESULFURIZER [email or web address] Anesthesia Postop Eval I: Fluid Summary Crystalloid volume administer 1,200 08/12/25 13:59 DESULFURIZER [email or web address] (ml) Colloids volume administered ( ml) Blood Product volume administered (ml) Total IV fluid infused 1,200 08/12/25 13:59 DESULFURIZER [email or web address] Anesthesia Postop Eval I: Summary Notes Anesthesia Complication No 08/12/25 13:59 DESULFURIZER [email or web address] Anesthesia Complication Comment: Post-operative progress note Anesthesia: Postop Eval II Evaluation Mental status: Awake and Calm Pain Level: 6 nausea: No Vomiting: No Progress Note Post-operative progress note: Patient's final pain level is a 6/10 despite significant IV medications plus a popliteal nerve block. She states it is manageable. Complications Anesthesia Complication: No
[2025-08-12] MEDS: buPROPion (XL) 300 MG TABLET.XL PO (21:53)
[2025-08-13] VITALS (8 sets, daily range): BP systolic 117–175; BP diastolic 64–79; PULSE 75–92; RESP 16–20; TEMP 36.6–36.7; O2SAT 94–99; BMI 34.8
[2025-08-13 06:58] LABS: Hematocrit 36.8 % (37-47); Hemoglobin 12.2 g/dL (12.0-15.0); Immature Granulocytes Count 0.070 X10^3/uL (0.0-0.0); Mean Corp Hgb Conc 33.2 g/dL (32-36); Mean Corpuscular Volume 92.5 fL (81-99); Mean Platelet Vol. 8.6 fl (6.2-12.0); NRBC Flagged by Analyzer 0 % (0-5); Platelet Count 288 K/mm3 (150-450); RBC Distribution Width CV 13.3 % (11.6-14.6); RBC Distribution Width SD 45.0 fl (35.1-43.9); Red Blood Count 3.98 M/mm3 (4.2-5.4); White Blood Count 14.4 K/mm3 (4.4-11.0)
--- NOTE | 2025-08-13 07:45 | PCM.PN.HOSP ---
Reason for Visit Chief Complaint: N/V/D, headache, general debility, recent R ankle fracture with pain. Subjective Subjective Postoperative day 1 following patient's ORIF. Objective Data Objective Data Vital Signs: Vital Signs Temp Pulse Resp BP Pulse Ox O2 Del Method O2 Flow Rate 98.0 F 75 16 136/66 H 99 Room Air 2 08/13/25 05:04 08/13/25 06:56 08/13/25 06:56 08/13/25 05:04 08/13/25 05:04 08/13/25 05:04 08/12/25 15:15 Oxygen Flow Rate (L/min) 2 Oxygen Delivery Method Room Air Weight: 100.8 kg Body Mass Index (BMI) 34.8 Intake & Output: Intake and Output for Last 24 Hours 08/11/25 08/12/25 08/13/25 23:59 23:59 23:59 Intake Total 550 / 550 604 / 604 120 / 120 Output Total 1250 / 1250 1935 / 1935 400 / 400 Balance -700 / -700 -1331 / -1331 -280 / -280 Lab / Micro Data 08/13/25 06:45 08/13/25 06:45 Labs: Laboratory Results - last 24 hr 08/12/25 16:18: POC Glucose 237 H 08/12/25 21:47: POC Glucose 225 H 08/13/25 06:21: POC Glucose 149 H 08/13/25 06:45: WBC 14.4 H, RBC 3.98 L, Hgb 12.2, Hct 36.8 L, MCV 92.5, MCH 30.7, MCHC 33.2, RDW Std Deviation 45.0 H, RDW Coeff of Jona 13.3, Plt Count 288, MPV 8.6, Immature Gran % (Auto) 0.500, Neut % (Auto) 66.6, Lymph % (Auto) 23.7, [place] % (Auto) 8.6, Eos % (Auto) 0.3, Baso % (Auto) 0.3, Absolute Neuts (auto) 9.6 H, Absolute Lymphs (auto) 3.41, Nucleated RBC % 0 Micro: Microbiology 08/04/25 03:05 Urine, Catheterized Urine Culture - Final ESBL Escherichia coli 08/04/25 03:05 Mucosa - Nose SARS-CoV-2, Influenza & RSV (PCR) - Final Radiography Diagnostic Testing: Radiology Impression Ankle X-Ray 08/12/25 12:30 IMPRESSION: Intraoperative fluoroscopic services provided for ORIF of the distal fibular and medial malleolar fracture. There is good alignment. Reading Location: [facility] Physical Exam Narrative GENERAL: cooperative HEENT: Atraumatic; normocephalic EYES; Anicteric, Normal Conjunctiva NECK; supple, normal thyroid, RESPIRATORY: Diminished to auscultation CARDIOVASCULAR: Regular S1 S2, GI: soft, normoactive bowel sounds, : No Renal angle tenderness; EXTREMITIES: No edema, no clubbing, MUSCULOSKELETAL: Right ankle immobilized NEURO: Awake; no lateralizing signs. SKIN: No Rash PSYCH; Flat affect Assessment & Plan Assessment/Plan (1) Acute UTI: PLAN: Plan Patient is a 70-year-old lady who presented with progressive generalized weakness. Had apparently fallen and fractured her ankle around . Presented to the emergency department with incontinence. Found to have UTI. Consult was placed to podiatry medicine 1. Right ankle fracture ? Imaging studies did show mild to moderately displaced Tri mall ankle fracture with lateral deviation of the talus. Increase in soft tissue volume without notable defect patient managed with pain meds with consultation placed to podiatry medicine. Patient seen by Dr. Nj. Plan for patient to remain n.p.o. after midnight with plan for patient to undergo ORIF on 08/09/2025 ? 08/09/2025;Scheduled to undergo ORIF by Dr. Nj. Patient complains of feeling anxious patient reassured ? 08/10/2025;Patient seen had a relatively uneventful night. Patient surgery was postponed to 08/12/2025. Patient pain remains well-controlled ? 08/11/2025; patient still complaining of pain in the right ankle. ORIF scheduled for 08/12/2025 ? 08/12/2025; patient scheduled to undergo ORIF ? 08/13/2025; patient underwent Open reduction internal fixation fibular fracture, right lower extremity, Open reduction internal fixation medial malleolus fracture, right lower extremity , Stress views, right lower extremity, Syndesmotic repair, right lower extremity,Application posterior splint, right lower extremity by Dr. Nj on 08/12/2025 2. Physical debility ? Secondary to above requested for PT OT eval following patient surgery. Case management on board assisting with placement in a shelter facility 3. Acute complicated UTI with ESBL E. coli patient was managed with cefepime, completed treatment per protocol 4. Diabetes mellitus type II -patient's oral hypoglycemics held. Placed on long acting insulin, Accu-Cheks a.c. and at bedtime and covered with sliding scale insulin ? 08/10/2025; patient glucose levels remain within acceptable levels 5. Depression with anxiety ? Patient is on Wellbutrin Seroquel BuSpar continue 6. Diabetes mellitus type 2 with BMI of 36 ? Complicating care weight loss advised next 7. GERD ? On PPI 8. DVT prophylaxis ? On enoxaparin Time spent in the patient's overall evaluation,decision-making process, review of diagnostic data, adjustment of management, discussion with other providers, nursing nursing and ancillary staff involved in patient's care documentation, 36 Minutes Charges/Coding Visit Charges Inpatient E&M: 47646 Subs Hosp L2
[2025-08-13 07:56] LABS: Anion Gap 11 (5-15); BUN 12 mg/dL (4-19); BUN/Creat Ratio 19.3 RATIO (10-20); Calcium,Total 9.3 mg/dL (7.6-11.0); Carbon Dioxide 24.6 mmol/L (21.0-32.0); Chloride 103 mmol/L (98-108); Estimated Creatinine Clearance 82.11 ml/min (50-250); Glucose 140 mg/dL (70-99); Magnesium 1.8 mg/dL (1.5-2.2); Potassium 3.8 mmol/L (3.3-5.1)
[2025-08-13] MEDS: Insulin Glargine-YFGN 100 UNIT/ML Pen 85 UNIT SC (08:01)
[2025-08-13] MEDS: Nicotine (PBKC) 14 MG Patch TD (08:02)
[2025-08-13] MEDS: buPROPion (XL) 150 MG TABLET.XL PO (08:03)
--- NOTE | 2025-08-13 14:47 | CASEMGMT ---
Social Work Updated clinical sent to [facility] and requested precert be started Friday. BONIFACIO Harding
[2025-08-13] MEDS: buPROPion (XL) 300 MG TABLET.XL PO (20:43)
[2025-08-13] MEDS: MELATONIN 3 MG TABLET PO (20:50)
[2025-08-13] MEDS: 0.9% Saline Lock 10 ML Syringe IV (22:15)
--- NOTE | 2025-08-13 22:34 | NURSING ---
Primary RNLavonne notified of elevated BP.
[2025-08-14] VITALS (7 sets, daily range): BP systolic 129–151; BP diastolic 68–88; PULSE 76–91; RESP 16–20; TEMP 36.2–37; O2SAT 95–98; BMI 34.8
[2025-08-14] MEDS: 0.9% Saline Lock 10 ML Syringe IV ×3 (03:33→17:00)
[2025-08-14 07:02] LABS: Hematocrit 35.8 % (37-47); Hemoglobin 11.6 g/dL (12.0-15.0); Immature Granulocytes Count 0.040 X10^3/uL (0.0-0.0); Mean Corp Hgb Conc 32.4 g/dL (32-36); Mean Corpuscular Volume 94.7 fL (81-99); Mean Platelet Vol. 8.8 fl (6.2-12.0); NRBC Flagged by Analyzer 0 % (0-5); Platelet Count 285 K/mm3 (150-450); RBC Distribution Width CV 13.7 % (11.6-14.6); RBC Distribution Width SD 47.6 fl (35.1-43.9); Red Blood Count 3.78 M/mm3 (4.2-5.4); White Blood Count 11.0 K/mm3 (4.4-11.0)
[2025-08-14 07:19] LABS: Anion Gap 9 (5-15); BUN 16 mg/dL (4-19); BUN/Creat Ratio 30.2 RATIO (10-20); Calcium,Total 9.2 mg/dL (7.6-11.0); Carbon Dioxide 25.3 mmol/L (21.0-32.0); Chloride 104 mmol/L (98-108); Estimated Creatinine Clearance 82.15 ml/min (50-250); Glucose 144 mg/dL (70-99); Potassium 4.1 mmol/L (3.3-5.1)
--- NOTE | 2025-08-14 09:03 | PCM.PN.HOSP ---
Reason for Visit Chief Complaint: N/V/D, headache, general debility, recent R ankle fracture with pain. Subjective Subjective Patient seen reports her pain not being well-controlled. Adjusted patient pain medication regimen Objective Data Objective Data Vital Signs: Vital Signs Temp Pulse Resp BP Pulse Ox O2 Del Method O2 Flow Rate 98.1 F 76 16 129/80 H 95 Room Air 2 08/14/25 03:00 08/14/25 07:01 08/14/25 07:01 08/14/25 03:00 08/14/25 03:00 08/14/25 03:39 08/12/25 15:15 Oxygen Flow Rate (L/min) 2 Oxygen Delivery Method Room Air Weight: 100.9 kg Body Mass Index (BMI) 34.8 Intake & Output: Intake and Output for Last 24 Hours 08/12/25 08/13/25 08/14/25 23:59 23:59 23:59 Intake Total 604 / 604 120 / 120 300 / 300 Output Total 1935 / 1935 400 / 400 250 / 250 Balance -1331 / -1331 -280 / -280 50 / 50 Lab / Micro Data 08/14/25 06:07 08/14/25 06:07 Labs: Laboratory Results - last 24 hr 08/13/25 12:27: POC Glucose 187 H 08/13/25 17:39: POC Glucose 327 H 08/13/25 20:50: POC Glucose 244 H 08/14/25 06:07: WBC 11.0, RBC 3.78 L, Hgb 11.6 L, Hct 35.8 L, MCV 94.7, MCH 30.7, MCHC 32.4, RDW Std Deviation 47.6 H, RDW Coeff of Jona 13.7, Plt Count 285, MPV 8.8, Immature Gran % (Auto) 0.400, Neut % (Auto) 44.7 L, Lymph % (Auto) 45.0 H, [place] % (Auto) 7.8, Eos % (Auto) 1.6, Baso % (Auto) 0.5, Absolute Neuts (auto) 4.9, Absolute Lymphs (auto) 4.93 H, Nucleated RBC % 0, Sodium 139, Potassium 4.1, Chloride 104, Carbon Dioxide 25.3, Anion Gap 9, BUN 16, Creatinine 0.52 L, Estim Creat Clear Calc 82.15, Est GFR (MDRD) Non-Af 101, BUN/Creatinine Ratio 30.2 H, Glucose 144 H, Calcium 9.2 08/14/25 06:52: POC Glucose 163 H Micro: Microbiology 08/04/25 03:05 Urine, Catheterized Urine Culture - Final ESBL Escherichia coli 08/04/25 03:05 Mucosa - Nose SARS-CoV-2, Influenza & RSV (PCR) - Final Physical Exam Narrative GENERAL: cooperative HEENT: Atraumatic; normocephalic EYES; Anicteric, Normal Conjunctiva NECK; supple, normal thyroid, RESPIRATORY: Diminished to auscultation CARDIOVASCULAR: Regular S1 S2, GI: soft, normoactive bowel sounds, : No Renal angle tenderness; EXTREMITIES: No edema, no clubbing, MUSCULOSKELETAL: Right ankle immobilized NEURO: Awake; no lateralizing signs. SKIN: No Rash PSYCH; Flat affect Assessment & Plan Assessment/Plan (1) Acute UTI: PLAN: Plan Patient is a 70-year-old lady who presented with progressive generalized weakness. Had apparently fallen and fractured her ankle around . Presented to the emergency department with incontinence. Found to have UTI. Consult was placed to podiatry medicine 1. Right ankle fracture ? Imaging studies did show mild to moderately displaced Tri mall ankle fracture with lateral deviation of the talus. Increase in soft tissue volume without notable defect patient managed with pain meds with consultation placed to podiatry medicine. Patient seen by Dr. Nj. Plan for patient to remain n.p.o. after midnight with plan for patient to undergo ORIF on 08/09/2025 ? 08/09/2025;Scheduled to undergo ORIF by Dr. Nj. Patient complains of feeling anxious patient reassured ? 08/10/2025;Patient seen had a relatively uneventful night. Patient surgery was postponed to 08/12/2025. Patient pain remains well-controlled ? 08/11/2025; patient still complaining of pain in the right ankle. ORIF scheduled for 08/12/2025 ? 08/12/2025; patient scheduled to undergo ORIF ? 08/13/2025; patient underwent Open reduction internal fixation fibular fracture, right lower extremity, Open reduction internal fixation medial malleolus fracture, right lower extremity , Stress views, right lower extremity, Syndesmotic repair, right lower extremity,Application posterior splint, right lower extremity by Dr. Nj on 08/12/2025 ? 08/14/2025;Patient seen reports her pain not being well-controlled. Adjusted patient pain medication regimen 2. Physical debility ? Secondary to above requested for PT OT eval following patient surgery. Case management on board assisting with placement in a [facility] facility 3. Acute complicated UTI with ESBL E. coli patient was managed with cefepime, completed treatment per protocol 4. Diabetes mellitus type II -patient's oral hypoglycemics held. Placed on long acting insulin, Accu-Cheks a.c. and at bedtime and covered with sliding scale insulin ? 08/10/2025; patient glucose levels remain within acceptable levels 5. Depression with anxiety ? Patient is on Wellbutrin Seroquel BuSpar continue 6. Diabetes mellitus type 2 with BMI of 36 ? Complicating care weight loss advised next 7. GERD ? On PPI 8. DVT prophylaxis ? On enoxaparin Time spent in the patient's overall evaluation,decision-making process, review of diagnostic data, adjustment of management, discussion with other providers, nursing nursing and ancillary staff involved in patient's care documentation, 35 Minutes Charges/Coding Visit Charges Inpatient E&M: 01009 Subs Hosp L2
[2025-08-14] MEDS: buPROPion (XL) 150 MG TABLET.XL PO (10:02)
[2025-08-14] MEDS: Nicotine (PBKC) 14 MG Patch TD (10:03)
[2025-08-14] MEDS: Insulin Glargine-YFGN 100 UNIT/ML Pen 85 UNIT SC (10:04)
[2025-08-14] MEDS: buPROPion (XL) 300 MG TABLET.XL PO (20:45)
[2025-08-14] MEDS: MELATONIN 3 MG TABLET PO (21:50)
[2025-08-15 02:11] VITALS: BP 142/61; PULSE 69; RESP 14; TEMP 36.4; O2SAT 94
[2025-08-15 03:20] VITALS: BMI 35.5
[2025-08-15 06:47] LABS: Hematocrit 38.5 % (37-47); Hemoglobin 12.7 g/dL (12.0-15.0); Immature Granulocytes Count 0.040 X10^3/uL (0.0-0.0); Mean Corp Hgb Conc 33.0 g/dL (32-36); Mean Corpuscular Volume 93.4 fL (81-99); Mean Platelet Vol. 8.6 fl (6.2-12.0); NRBC Flagged by Analyzer 0 % (0-5); Platelet Count 302 K/mm3 (150-450); RBC Distribution Width CV 13.5 % (11.6-14.6); RBC Distribution Width SD 45.8 fl (35.1-43.9); Red Blood Count 4.12 M/mm3 (4.2-5.4); White Blood Count 9.2 K/mm3 (4.4-11.0)
[2025-08-15 07:02] VITALS: PULSE 76; RESP 18
--- NOTE | 2025-08-15 07:10 | PN.HOSP_ITS ---
Reason for Visit Chief Complaint: N/V/D, headache, general debility, recent R ankle fracture with pain. Subjective Subjective Patient seen. Did adjust patient home medication regimen the day prior. She reports significant improvement in her pain level. Awaiting insurance pre-CERT prior to patient being discharged to nursing home facility Objective Data Objective Data Vital Signs: Vital Signs Temp Pulse Resp BP Pulse Ox O2 Del Method O2 Flow Rate 97.5 F L 76 18 142/61 H 94 Room Air 2 08/15/25 02:11 08/15/25 07:02 08/15/25 07:02 08/15/25 02:11 08/15/25 02:11 08/15/25 03:02 08/12/25 15:15 Oxygen Flow Rate (L/min) 2 Oxygen Delivery Method Room Air Weight: 102.9 kg Body Mass Index (BMI) 35.5 Intake & Output: Intake and Output for Last 24 Hours 08/13/25 08/14/25 08/15/25 23:59 23:59 23:59 Intake Total 120 / 120 1300 / 1300 Output Total 400 / 400 250 / 1250 1500 / 1500 Balance -280 / -280 1050 / 50 -1500 / -1500 Lab / Micro Data 08/15/25 06:29 08/15/25 06:29 Labs: Laboratory Results - last 24 hr 08/14/25 06:07: Sodium 139, Potassium 4.1, Chloride 104, Carbon Dioxide 25.3, Anion Gap 9, BUN 16, Creatinine 0.52 L, Estim Creat Clear Calc 82.15, Est GFR (MDRD) Non-Af 101, BUN/Creatinine Ratio 30.2 H, Glucose 144 H, Calcium 9.2 08/14/25 06:52: POC Glucose 163 H 08/14/25 12:28: POC Glucose 196 H 08/14/25 16:55: POC Glucose 144 H 08/14/25 20:42: POC Glucose 211 H 08/15/25 06:29: WBC 9.2, RBC 4.12 L, Hgb 12.7, Hct 38.5, MCV 93.4, MCH 30.8, MCHC 33.0, RDW Std Deviation 45.8 H, RDW Coeff of Jona 13.5, Plt Count 302, MPV 8.6, Immature Gran % (Auto) 0.400, Neut % (Auto) 45.5 L, Lymph % (Auto) 43.8 H, [place] % (Auto) 7.5, Eos % (Auto) 2.3, Baso % (Auto) 0.5, Absolute Neuts (auto) 4.2, Absolute Lymphs (auto) 4.04, Nucleated RBC % 0 08/15/25 06:41: POC Glucose 153 H Micro: Microbiology 08/04/25 03:05 Urine, Catheterized Urine Culture - Final ESBL Escherichia coli 08/04/25 03:05 Mucosa - Nose SARS-CoV-2, Influenza & RSV (PCR) - Final Physical Exam Narrative GENERAL: cooperative HEENT: Atraumatic; normocephalic EYES; Anicteric, Normal Conjunctiva NECK; supple, normal thyroid, RESPIRATORY: Diminished to auscultation CARDIOVASCULAR: Regular S1 S2, GI: soft, normoactive bowel sounds, : No Renal angle tenderness; EXTREMITIES: No edema, no clubbing, MUSCULOSKELETAL: Right ankle immobilized NEURO: Awake; no lateralizing signs. SKIN: No Rash PSYCH; Flat affect Assessment & Plan Assessment/Plan (1) Acute UTI: PLAN: Plan Patient is a 70-year-old lady who presented with progressive generalized weakness. Had apparently fallen and fractured her ankle around . Presented to the emergency department with incontinence. Found to have UTI. Consult was placed to podiatry medicine 1. Right ankle fracture ? Imaging studies did show mild to moderately displaced Tri mall ankle fracture with lateral deviation of the talus. Increase in soft tissue volume without notable defect patient managed with pain meds with consultation placed to podiatry medicine. Patient seen by Dr. Nj. Plan for patient to remain n.p.o. after midnight with plan for patient to undergo ORIF on 08/09/2025 ? 08/09/2025;Scheduled to undergo ORIF by Dr. Nj. Patient complains of feeling anxious patient reassured ? 08/10/2025;Patient seen had a relatively uneventful night. Patient surgery was postponed to 08/12/2025. Patient pain remains well-controlled ? 08/11/2025; patient still complaining of pain in the right ankle. ORIF scheduled for 08/12/2025 ? 08/12/2025; patient scheduled to undergo ORIF ? 08/13/2025; patient underwent Open reduction internal fixation fibular fracture, right lower extremity, Open reduction internal fixation medial malleolus fracture, right lower extremity , Stress views, right lower extremity, Syndesmotic repair, right lower extremity,Application posterior splint, right lower extremity by Dr. Nj on 08/12/2025 ? 08/14/2025;Patient seen reports her pain not being well-controlled. Adjusted patient pain medication regimen ? 08/14/2025; patient pain control improved following adjustment the day prior. Transferred to a nursing home facility still pending. 2. Physical debility ? Secondary to above requested for PT OT eval following patient surgery. Case management on board assisting with placement in a nursing home facility 3. Acute complicated UTI with ESBL E. coli patient was managed with cefepime, completed treatment per protocol 4. Diabetes mellitus type II -patient's oral hypoglycemics held. Placed on long acting insulin, Accu-Cheks a.c. and at bedtime and covered with sliding scale insulin ? 08/10/2025; patient glucose levels remain within acceptable levels 5. Depression with anxiety ? Patient is on Wellbutrin Seroquel BuSpar continue 6. Diabetes mellitus type 2 with BMI of 36 ? Complicating care weight loss advised next 7. GERD ? On PPI 8. DVT prophylaxis ? On enoxaparin Charges/Coding Visit Charges Inpatient E&M: 28432 Subs Hosp L1
--- NOTE | 2025-08-15 07:13 | PN.SURG_ITS ---
Subjective Subjective Patient is a 70-year-old diabetic female seen at bedside today status post open reduction internal fixation of right lower extremity ankle fracture. DOS: 08/12/2025. POD #3. Patient was resting comfortably in bed. She rates her pain at 4?5 out of 10 on the pain scale. She is still waiting for SNF approval. She is working with physical therapy. She denies any acute events overnight. Denies any constitutional symptoms. No other pedal complaints at this time. Objective Data Objective Data Vital Signs: Vital Signs Temp Pulse Resp BP Pulse Ox O2 Del Method O2 Flow Rate 97.5 F L 76 18 142/61 H 94 Room Air 2 08/15/25 02:11 08/15/25 07:02 08/15/25 07:02 08/15/25 02:11 08/15/25 02:11 08/15/25 03:02 08/12/25 15:15 Oxygen Flow Rate (L/min) 2 Oxygen Delivery Method Room Air Weight: 102.9 kg Body Mass Index (BMI) 35.5 Intake & Output: Intake and Output for Last 24 Hours 08/13/25 08/14/25 08/15/25 23:59 23:59 23:59 Intake Total 120 / 120 1300 / 1300 Output Total 400 / 400 250 / 1250 1500 / 1500 Balance -280 / -280 1050 / 50 -1500 / -1500 Lab / Micro Data 08/15/25 06:29 08/14/25 06:07 Labs: Laboratory Results - last 24 hr 08/14/25 06:07: Sodium 139, Potassium 4.1, Chloride 104, Carbon Dioxide 25.3, Anion Gap 9, BUN 16, Creatinine 0.52 L, Estim Creat Clear Calc 82.15, Est GFR (MDRD) Non-Af 101, BUN/Creatinine Ratio 30.2 H, Glucose 144 H, Calcium 9.2 08/14/25 06:52: POC Glucose 163 H 08/14/25 12:28: POC Glucose 196 H 08/14/25 16:55: POC Glucose 144 H 08/14/25 20:42: POC Glucose 211 H 08/15/25 06:29: WBC 9.2, RBC 4.12 L, Hgb 12.7, Hct 38.5, MCV 93.4, MCH 30.8, MCHC 33.0, RDW Std Deviation 45.8 H, RDW Coeff of Jona 13.5, Plt Count 302, MPV 8.6, Immature Gran % (Auto) 0.400, Neut % (Auto) 45.5 L, Lymph % (Auto) 43.8 H, [place] % (Auto) 7.5, Eos % (Auto) 2.3, Baso % (Auto) 0.5, Absolute Neuts (auto) 4.2, Absolute Lymphs (auto) 4.04, Nucleated RBC % 0 08/15/25 06:41: POC Glucose 153 H Micro: Microbiology 08/04/25 03:05 Urine, Catheterized Urine Culture - Final ESBL Escherichia coli 08/04/25 03:05 Mucosa - Nose SARS-CoV-2, Influenza & RSV (PCR) - Final Physical Exam Narrative Neurovascular status is unchanged. CFT is brisk. Nonpitting edema appreciated to the distal and proximal aspect of the right lower extremity cast. No pain to palpation over the incision to the medial and lateral right ankle. No calf pain with calf compression. Const oriented x3 and no apparent distress Assessment & Plan Assessment/Plan (1) Closed trimalleolar fracture of right ankle: QUALIFIERS: Encounter type: initial encounter Qualified Code(s): S82.851A - Displaced trimalleolar fracture of right lower leg, initial encounter for closed fracture PLAN: Patient was examined and evaluated. All findings were discussed with the patient. All questions were answered to the patient satisfaction. Radiographs (08/04/2025): Three-view nonweightbearing right ankle films show evidence of a mild to moderately displaced Tri mall ankle fracture with lateral deviation of the talus. Increase in soft tissue volume without notable defect. No additional measures or fractures are noted. CT scan (08/01/2025): Evidence of mild displaced comminuted trimalleolar ankle fracture to the right ankle. WBC: 14.0 -> 11.0 -> 9.2 Glucose: 153 HbA1c (08/01/25): 9.2 Medicine: On board, medical management Please continue strict blood sugar control. Please leave the right lower extremity class clean dry and intact. Continue to rest ice and elevate 4 inches above her heart. From a podiatry perspective the patient is cleared to discharge to SNF when pre- CERT is approved. Podiatry will follow at a distance at this time. Please reach out to Dr. Nj for any question concerns. Thank you for letting me be involved in this patient's care. (2) Diabetes mellitus type 2, insulin dependent: (3) Pain in right ankle: QUALIFIERS: Chronicity: acute Qualified Code(s): M25.571 - Pain in right ankle and joints of right foot
[2025-08-15 07:18] LABS: Anion Gap 13 (5-15); BUN 13 mg/dL (4-19); BUN/Creat Ratio 22.3 RATIO (10-20); Calcium,Total 9.7 mg/dL (7.6-11.0); Carbon Dioxide 25.2 mmol/L (21.0-32.0); Chloride 102 mmol/L (98-108); Estimated Creatinine Clearance 83.00 ml/min (50-250); Glucose 153 mg/dL (70-99); Potassium 4.3 mmol/L (3.3-5.1)
[2025-08-15 08:11] VITALS: BP 132/72; PULSE 90; RESP 18; TEMP 36.6; O2SAT 97
--- NOTE | 2025-08-15 08:40 | PCM.PN.HOSP ---
Reason for Visit Chief Complaint: N/V/D, headache, general debility, recent R ankle fracture with pain. Objective Data Objective Data Vital Signs: Vital Signs Temp Pulse Resp BP Pulse Ox O2 Del Method O2 Flow Rate 36.4 C L 76 18 142/61 H 94 Room Air 2 08/15/25 02:11 08/15/25 07:02 08/15/25 07:02 08/15/25 02:11 08/15/25 02:11 08/15/25 03:02 08/12/25 15:15 Oxygen Flow Rate (L/min) 2 Oxygen Delivery Method Room Air Weight: 102.9 kg Body Mass Index (BMI) 35.5 Intake & Output: Intake and Output for Last 24 Hours 08/13/25 08/14/25 08/15/25 23:59 23:59 23:59 Intake Total 120 / 120 1300 / 1300 Output Total 400 / 400 250 / 1250 1500 / 1500 Balance -280 / -280 1050 / 50 -1500 / -1500 Lab / Micro Data 08/15/25 06:29 08/15/25 06:29 Labs: Laboratory Results - last 24 hr 08/14/25 12:28: POC Glucose 196 H 08/14/25 16:55: POC Glucose 144 H 08/14/25 20:42: POC Glucose 211 H 08/15/25 06:29: WBC 9.2, RBC 4.12 L, Hgb 12.7, Hct 38.5, MCV 93.4, MCH 30.8, MCHC 33.0, RDW Std Deviation 45.8 H, RDW Coeff of Jona 13.5, Plt Count 302, MPV 8.6, Immature Gran % (Auto) 0.400, Neut % (Auto) 45.5 L, Lymph % (Auto) 43.8 H, [place] % (Auto) 7.5, Eos % (Auto) 2.3, Baso % (Auto) 0.5, Absolute Neuts (auto) 4.2, Absolute Lymphs (auto) 4.04, Nucleated RBC % 0, Sodium 139, Potassium 4.3, Chloride 102, Carbon Dioxide 25.2, Anion Gap 13, BUN 13, Creatinine 0.56 L, Estim Creat Clear Calc 83.00, Est GFR (MDRD) Non-Af 99, BUN/Creatinine Ratio 22.3 H, Glucose 153 H, Calcium 9.7 08/15/25 06:41: POC Glucose 153 H Micro: Microbiology 08/04/25 03:05 Urine, Catheterized Urine Culture - Final ESBL Escherichia coli 08/04/25 03:05 Mucosa - Nose SARS-CoV-2, Influenza & RSV (PCR) - Final Assessment & Plan Assessment/Plan (1) Acute UTI: PLAN: Plan Right ankle fracture ? Imaging studies did show mild to moderately displaced Tri mall ankle fracture with lateral deviation of the talus. Increase in soft tissue volume without notable defect patient managed with pain meds with consultation placed to podiatry medicine. Patient seen by Dr. Nj. Plan for patient to remain n.p.o. after midnight with plan for patient to undergo ORIF on 08/09/2025 ? 08/09/2025;Scheduled to undergo ORIF by Dr. Nj. Patient complains of feeling anxious patient reassured ? 08/10/2025;Patient seen had a relatively uneventful night. Patient surgery was postponed to 08/12/2025. Patient pain remains well-controlled ? 08/11/2025; patient still complaining of pain in the right ankle. ORIF scheduled for 08/12/2025 ? 08/12/2025; patient scheduled to undergo ORIF ? 08/13/2025; patient underwent Open reduction internal fixation fibular fracture, right lower extremity, Open reduction internal fixation medial malleolus fracture, right lower extremity , Stress views, right lower extremity, Syndesmotic repair, right lower extremity,Application posterior splint, right lower extremity by Dr. Nj on 08/12/2025 ? 08/14/2025;Patient seen reports her pain not being well-controlled. Adjusted patient pain medication regimen 2. Physical debility ? Secondary to above requested for PT OT eval following patient surgery. Case management on board assisting with placement in a nursing home facility 3. Acute complicated UTI with ESBL E. coli patient was managed with cefepime, completed treatment per protocol 4. Diabetes mellitus type II -patient's oral hypoglycemics held. Placed on long acting insulin, Accu-Cheks a.c. and at bedtime and covered with sliding scale insulin ? 08/10/2025; patient glucose levels remain within acceptable levels 5. Depression with anxiety ? Patient is on Wellbutrin Seroquel BuSpar continue 6. Diabetes mellitus type 2 with BMI of 36 ? Complicating care weight loss advised next 7. GERD ? On PPI 8. DVT prophylaxis ? On enoxaparin Time spent in the patient's overall evaluation,decision-making process, review of diagnostic data, adjustment of management, discussion with other providers, nursing nursing and ancillary staff involved in patient's care documentation, 35 Minutes
--- NOTE | 2025-08-15 08:54 | CASEMGMT ---
Discharge Planning Updates sent via [facility]Port to [facility]. [facility] will submit for precert. Lisa Moe DC Planning Asst.
[2025-08-15] MEDS: Insulin Glargine-YFGN 100 UNIT/ML Pen 85 UNIT SC (10:17)
[2025-08-15] MEDS: Nicotine (PBKC) 14 MG Patch TD (11:02)
[2025-08-15] MEDS: buPROPion (XL) 150 MG TABLET.XL PO (11:37)
[2025-08-15 13:27] VITALS: PULSE 92; RESP 16
[2025-08-15 14:00] VITALS: BP 155/67; PULSE 91; RESP 17; TEMP 36.6; O2SAT 97
[2025-08-15] MEDS: MELATONIN 3 MG TABLET PO (21:37)
[2025-08-15] MEDS: buPROPion (XL) 300 MG TABLET.XL PO (21:39)
[2025-08-15 22:01] VITALS: BP 137/79; PULSE 83; RESP 16; TEMP 36.1; O2SAT 99
[2025-08-16 05:27] VITALS: BMI 34.2
[2025-08-16 06:45] VITALS: BP 137/74; PULSE 86; RESP 16; TEMP 36.6; O2SAT 100
--- NOTE | 2025-08-16 07:20 | PN.HOSP_ITS ---
Reason for Visit Chief Complaint: N/V/D, headache, general debility, recent R ankle fracture with pain. Subjective Subjective Patient seen pain remains tolerable. Insurance precertification still pending Objective Data Objective Data Vital Signs: Vital Signs Temp Pulse Resp BP Pulse Ox O2 Del Method O2 Flow Rate 97.8 F 86 16 137/74 H 100 Room Air 2 08/16/25 06:45 08/16/25 06:45 08/16/25 06:45 08/16/25 06:45 08/16/25 06:45 08/16/25 06:45 08/12/25 15:15 Oxygen Flow Rate (L/min) 2 Oxygen Delivery Method Room Air Weight: 99 kg Body Mass Index (BMI) 34.2 Intake & Output: Intake and Output for Last 24 Hours 08/14/25 08/15/25 08/16/25 23:59 23:59 23:59 Intake Total 1300 / 1300 600 / 600 Output Total 250 / 1250 2300 / 2300 750 / 750 Balance 1050 / 50 -1700 / -1700 -750 / -750 Lab / Micro Data 08/16/25 08:46 08/15/25 06:29 Labs: Laboratory Results - last 24 hr 08/15/25 11:40: POC Glucose 225 H 08/15/25 16:58: POC Glucose 234 H 08/15/25 20:12: POC Glucose 222 H 08/16/25 06:13: POC Glucose 224 H Micro: Microbiology 08/04/25 03:05 Urine, Catheterized Urine Culture - Final ESBL Escherichia coli 08/04/25 03:05 Mucosa - Nose SARS-CoV-2, Influenza & RSV (PCR) - Final Physical Exam Narrative GENERAL: cooperative HEENT: Atraumatic; normocephalic EYES; Anicteric, Normal Conjunctiva NECK; supple, normal thyroid, RESPIRATORY: Diminished to auscultation CARDIOVASCULAR: Regular S1 S2, GI: soft, normoactive bowel sounds, : No Renal angle tenderness; EXTREMITIES: No edema, no clubbing, MUSCULOSKELETAL: Right ankle immobilized NEURO: Awake; no lateralizing signs. SKIN: No Rash PSYCH; Flat affect Assessment & Plan Assessment/Plan (1) Acute UTI: PLAN: Plan Patient is a 70-year-old lady who presented with progressive generalized weakness. Had apparently fallen and fractured her ankle around weekend. Presented to the emergency department with incontinence. Found to have UTI. Consult was placed to podiatry medicine 1. Right ankle fracture ? Imaging studies did show mild to moderately displaced Tri mall ankle fracture with lateral deviation of the talus. Increase in soft tissue volume without notable defect patient managed with pain meds with consultation placed to podiatry medicine. Patient seen by Dr. Nj. Plan for patient to remain n.p.o. after midnight with plan for patient to undergo ORIF on 08/09/2025 ? 08/09/2025;Scheduled to undergo ORIF by Dr. Nj. Patient complains of feeling anxious patient reassured ? 08/10/2025;Patient seen had a relatively uneventful night. Patient surgery was postponed to 08/12/2025. Patient pain remains well-controlled ? 08/11/2025; patient still complaining of pain in the right ankle. ORIF scheduled for 08/12/2025 ? 08/12/2025; patient scheduled to undergo ORIF ? 08/13/2025; patient underwent Open reduction internal fixation fibular fracture, right lower extremity, Open reduction internal fixation medial malleolus fracture, right lower extremity , Stress views, right lower extremity, Syndesmotic repair, right lower extremity,Application posterior splint, right lower extremity by Dr. Nj on 08/12/2025 ? 08/14/2025;Patient seen reports her pain not being well-controlled. Adjusted patient pain medication regimen ? 08/14/2025; patient pain control improved following adjustment the day prior. Transferred to a group home facility still pending. ? 08/16/2025; patient pain remains tolerable still awaiting transfer to group home facility 2. Physical debility ? Secondary to above requested for PT OT eval following patient surgery. Case management on board assisting with placement in a group home facility 3. Acute complicated UTI with ESBL E. coli patient was managed with cefepime, completed treatment per protocol 4. Diabetes mellitus type II -patient's oral hypoglycemics held. Placed on long acting insulin, Accu-Cheks a.c. and at bedtime and covered with sliding scale insulin ? 08/10/2025; patient glucose levels remain within acceptable levels 5. Depression with anxiety ? Patient is on Wellbutrin Seroquel BuSpar continue 6. Diabetes mellitus type 2 with BMI of 36 ? Complicating care weight loss advised next 7. GERD ? On PPI 8. DVT prophylaxis ? On enoxaparin Charges/Coding Visit Charges Inpatient E&M: 70411 Subs Hosp L1
[2025-08-16 08:06] VITALS: BP 148/76; PULSE 77; RESP 17; TEMP 36.8; O2SAT 100
[2025-08-16 08:56] LABS: Hematocrit 39.3 % (37-47); Hemoglobin 12.8 g/dL (12.0-15.0); Immature Granulocytes Count 0.050 X10^3/uL (0.0-0.0); Mean Corp Hgb Conc 32.6 g/dL (32-36); Mean Corpuscular Volume 93.1 fL (81-99); Mean Platelet Vol. 8.6 fl (6.2-12.0); NRBC Flagged by Analyzer 0 % (0-5); Platelet Count 329 K/mm3 (150-450); RBC Distribution Width CV 13.2 % (11.6-14.6); RBC Distribution Width SD 45.1 fl (35.1-43.9); Red Blood Count 4.22 M/mm3 (4.2-5.4); White Blood Count 9.9 K/mm3 (4.4-11.0)
[2025-08-16 09:41] LABS: Anion Gap 11 (7-18); BUN 13 mg/dL (4-19); BUN/Creat Ratio 25.7 RATIO (10-20); Calcium,Total 9.3 mg/dL (7.6-11.0); Carbon Dioxide 23.8 mmol/L (20.0-29.0); Chloride 102 mmol/L (96-106); Estimated Creatinine Clearance 81.35 ml/min (50-250); Glucose 183 mg/dL (70-99); Magnesium 2.0 mg/dL (1.5-2.2); Potassium 4.5 mmol/L (3.5-5.1)
[2025-08-16 09:42] VITALS: PULSE 91; RESP 16
[2025-08-16] MEDS: Nicotine (PBKC) 14 MG Patch TD (10:27)
[2025-08-16] MEDS: buPROPion (XL) 150 MG TABLET.XL PO (10:28)
[2025-08-16] MEDS: Insulin Glargine-YFGN 100 UNIT/ML Pen 85 UNIT SC (12:42)
--- NOTE | 2025-08-16 13:20 | CASEMGMT ---
[facility] has obtained auth to admit. Auth is good thru 08/22/25. SW updated. Lisa Moe DC Planning Asst.
[2025-08-16 13:29] VITALS: PULSE 86; RESP 16
[2025-08-16 14:28] VITALS: BP 143/72; PULSE 96; RESP 16; TEMP 36.9; O2SAT 98
--- NOTE | 2025-08-16 14:34 | PCM.DC.SUM ---
Providers Date of Admission: 08/04/25 Date of Discharge: 08/16/25 Primary Care Physician: Dr. Ricci Broussard MD Consultations 08/04/25 05:10 Consult: Podiatry Routine Consulting Provider: Robb Nj Reason for Consult: R ankle Fx EMERGENT Consult: No MD Notified: Yes Date Notified: 08/04/25 Time Notified: 04:10 Method of Notification: Text Reason For Visit: COMPLICATED UTI, RECENT R ANKLE FX Diagnosis Discharge Diagnosis (1) Acute UTI: Status: Acute Code(s): N39.0 - Urinary tract infection, site not specified Plan Patient is a 70-year-old lady who presented with progressive generalized weakness. Had apparently fallen and fractured her ankle around . Presented to the emergency department with incontinence. Found to have UTI. Consult was placed to podiatry medicine 1. Right ankle fracture ? Imaging studies did show mild to moderately displaced Tri mall ankle fracture with lateral deviation of the talus. Increase in soft tissue volume without notable defect patient managed with pain meds with consultation placed to podiatry medicine. Patient seen by Dr. Nj. Plan for patient to remain n.p.o. after midnight with plan for patient to undergo ORIF on 08/09/2025 ? 08/09/2025;Scheduled to undergo ORIF by Dr. Nj. Patient complains of feeling anxious patient reassured ? 08/10/2025;Patient seen had a relatively uneventful night. Patient surgery was postponed to 08/12/2025. Patient pain remains well-controlled ? 08/11/2025; patient still complaining of pain in the right ankle. ORIF scheduled for 08/12/2025 ? 08/12/2025; patient scheduled to undergo ORIF ? 08/13/2025; patient underwent Open reduction internal fixation fibular fracture, right lower extremity, Open reduction internal fixation medial malleolus fracture, right lower extremity , Stress views, right lower extremity, Syndesmotic repair, right lower extremity,Application posterior splint, right lower extremity by Dr. Nj on 08/12/2025 ? 08/14/2025;Patient seen reports her pain not being well-controlled. Adjusted patient pain medication regimen ? 08/14/2025; patient pain control improved following adjustment the day prior. [facility] still [facility]. ? 08/16/2025; patient pain remains tolerable still awaiting transfer to penitentiary facility 2. Physical debility ? Secondary to above requested for PT OT eval following patient surgery. Case management on board assisting with placement in a penitentiary facility 3. Acute complicated UTI with ESBL E. coli patient was managed with cefepime, completed treatment per protocol 4. Diabetes mellitus type II -patient's oral hypoglycemics held. Placed on long acting insulin, Accu-Cheks a.c. and at bedtime and covered with sliding scale insulin ? 08/10/2025; patient glucose levels remain within acceptable levels 5. Depression with anxiety ? Patient is on Wellbutrin Seroquel BuSpar continue 6. Diabetes mellitus type 2 with BMI of 36 ? Complicating care weight loss advised next 7. GERD ? On PPI 8. DVT prophylaxis ? On enoxaparin Medications at Discharge Home Medications quetiapine 300 mg tablet 300 mg PO QHS mood 01/11/22 albuterol sulfate 90 mcg/actuation aerosol inhaler 90 inh inhalation Q4H PRN PRN sob 01/17/22 bupropion HCl 150 mg 24 hr tablet, extended release 150 mg PO DAILY mood 01/17/22 buspirone 10 mg tablet 20 mg PO TID mood 01/17/22 omeprazole 40 mg capsule,delayed release 40 mg PO DAILY gerd 05/01/22 promethazine 25 mg tablet 25 mg PO Q6H PRN nausea 08/04/23 quetiapine 25 mg tablet 25 mg PO TID PRN mental health 08/04/23 albuterol sulfate 2.5 mg/3 mL (0.083 %) solution for nebulization 2.5 mg inhalation Q8H PRN shortness of breath or wheezing 07/20/25 bupropion HCl 300 mg 24 hr tablet, extended release 300 mg PO QHS 07/20/25 fluticasone fur. 200 mcg-umeclid 62.5 mcg-vilant 25 mcg inhalat.powder (Trelegy Ellipta) 1 ea inhalation DAILY 07/20/25 gabapentin 400 mg capsule 400 mg PO TID 07/20/25 insulin glargine U-300 conc 300 unit/mL (1.5 mL) subcutaneous pen (Toujeo SoloStar U-300 Insulin) 80 unit subcut DAILY 07/20/25 nystatin 100,000 unit/gram topical powder 1 applic topical DAILY 07/20/25 acetaminophen 500 mg tablet 1,000 mg (2 x 500 mg) PO Q8 #0 tabs 08/16/25 cyclobenzaprine 5 mg tablet 5 mg PO TID PRN Muscle Spasm #0 tabs 08/16/25 enoxaparin 40 mg/0.4 mL subcutaneous syringe 40 mg (0.4 mL) subcut DAILY 30 days #0 mL 08/16/25 insulin lispro 100 unit/mL subcutaneous pen (Humalog KwikPen (U-100) Insulin) See Protocol subcut TID diabetes #15 mL 08/16/25 melatonin 3 mg tablet 3 mg PO QHS PRN PRN Insomnia #0 tabs 08/16/25 nicotine 14 mg/24 hr daily transdermal patch 14 mg transdermal DAILY #0 ea 08/16/25 oxycodone 5 mg tablet 5 mg PO Q4H PRN PRN Pain Score 4-10 2 days #8 tabs 08/16/25 Hospital Course Summary of Care Provided Minutes Spent on Discharge: 35 Physical Exam Narrative GENERAL: cooperative HEENT: Atraumatic; normocephalic EYES; Anicteric, Normal Conjunctiva NECK; supple, normal thyroid, RESPIRATORY: Diminished to auscultation CARDIOVASCULAR: Regular S1 S2, GI: soft, normoactive bowel sounds, : No Renal angle tenderness; EXTREMITIES: No edema, no clubbing, MUSCULOSKELETAL: Right ankle immobilized NEURO: Awake; no lateralizing signs. SKIN: No Rash PSYCH; Flat affect Weight / BMI Weight Weight: 99 kg Body Mass Index (BMI) 34.2 ABG / Lab / Microbiology Data 08/16/25 08:46 08/16/25 08:46 Laboratory: Laboratory Results - last 24 hr 08/15/25 16:58: POC Glucose 234 H 08/15/25 20:12: POC Glucose 222 H 08/16/25 06:13: POC Glucose 224 H 08/16/25 08:46: WBC 9.9, RBC 4.22, Hgb 12.8, Hct 39.3, MCV 93.1, MCH 30.3, MCHC 32.6, RDW Std Deviation 45.1 H, RDW Coeff of Jona 13.2, Plt Count 329, MPV 8.6, Immature Gran % (Auto) 0.500, Neut % (Auto) 57.1, Lymph % (Auto) 33.0, [place] % (Auto) 6.7, Eos % (Auto) 2.0, Baso % (Auto) 0.7, Absolute Neuts (auto) 5.6, Absolute Lymphs (auto) 3.25, Nucleated RBC % 0, Sodium 137, Potassium 4.5, Chloride 102, Carbon Dioxide 23.8, Anion Gap 11, BUN 13, Creatinine 0.52 L, Estim Creat Clear Calc 81.35, Est GFR (MDRD) Non-Af 101, BUN/Creatinine Ratio 25.7 H, Glucose 183 H, Calcium 9.3, Phosphorus 3.9, Magnesium 2.0 08/16/25 11:27: POC Glucose 208 H Microbiology: Microbiology 08/04/25 03:05 Urine, Catheterized Urine Culture - Final ESBL Escherichia coli 08/04/25 03:05 Mucosa - Nose SARS-CoV-2, Influenza & RSV (PCR) - Final D/C Instructions Discharge Activity: Return to Normal Activity Call your doctor if you observe: Fever of 101 or Higher, Shortness of breath, Fainting spells and Chest pain DC O2, CPAP, BIPAP Needs Home O2 Discharge instructions: No Patient's Goals Of Care - F/U Goals Reviewed Goals of care reviewed with patient: Yes - No change Meaningful Use Info Meaningful Use Meaningful Use Diagnoses (Choose all that apply): None applicable Discharge Plan Admission Admit Date/Time: 08/04/25 04:08 Attending Provider: Benjamín Horner Primary Care Provider: Ricci Broussard Consulting Providers: Irma Huddleston; Cristi Marshall; Pippa Brice; Robb Nj; Vitaly Alicea Instructions Patient Instructions: Cast Care, Post-Op Tips: Foot Additional Instructions / Restrictions: 1. Please keep your surgical dressing clean dry and intact. Do not remove. Do not get it wet. 2. Continue rest, ice (behind your operative knee) and elevate per your postoperative instructions that were given to you at the day of your surgical consultation while in office. 3. Nonweightbearing to the right lower extremity with assistance of walker and or knee scooter. Full weightbearing left lower extremity. 4. Please take all pain medication and prescriptions as written. 5. If you are a diabetic patient please continue tight glucose control while in the postoperative phase. 6. Please continue to follow-up with all your doctors visits prior and after surgery. 7. Please reach out to Dr. Nj, through the paging system in the hospital or private office with any questions or concerns. 8. Thank you for letting me be involved in your surgical care! Discharge Orders/Prescriptions Prescriptions: New nicotine 14 mg/24 hr Patch 24 Hour 14 mg transdermal DAILY Qty: 0 0RF melatonin 3 mg Tablet 3 mg PO QHS PRN PRN (Reason: Insomnia) Qty: 0 0RF acetaminophen 500 mg Tablet 1,000 mg PO Q8 Qty: 0 0RF oxycodone 5 mg Tablet 5 mg PO Q4H PRN PRN (Reason: Pain Score 4-10) 2 Days Qty: 8 0RF enoxaparin 40 mg/0.4 mL Syringe 40 mg subcut DAILY 30 Days Qty: 0 0RF cyclobenzaprine 5 mg Tablet 5 mg PO TID PRN (Reason: Muscle Spasm) Qty: 0 0RF Continued quetiapine 300 mg tablet 300 mg PO QHS buspirone 10 mg tablet 20 mg PO TID albuterol sulfate 90 mcg/actuation HFA aerosol inhaler 90 inh INHALATION Q4H PRN PRN (Reason: sob) Patient Comments: TAKE 2 PUFFS BY MOUTH EVERY 4 HOURS NEEDED bupropion HCl 150 mg tablet extended release 24 hr 150 mg PO DAILY Patient Comments: TAKE 1 TABLET BY MOUTH EVERY MORNING omeprazole 40 mg Capsule,Delayed Release(Dr/Ec) 40 mg PO DAILY quetiapine 25 mg tablet 25 mg PO TID PRN (Reason: mental health) promethazine 25 mg tablet 25 mg PO Q6H PRN (Reason: nausea) Patient Comments: TAKE 1 TABLET BY MOUTH EVERY 6 HOURS NEEDED FOR NAUSEA AND VOMITING insulin lispro [Humalog KwikPen Insulin] 100 unit/mL Insulin Pen See Protocol SUBCUT TID Qty: 15 0RF Protocol: 3. Sliding Scale Insulin Med Dosing Condition: 150-189 mg/dl = 1 unit Condition: 190-229 mg/dl = 2 units Condition: 230-269 mg/dl = 3 units Condition: 270-309 mg/dl = 4 units Condition: 310-349 mg/dl = 5 units Condition: 350-399 mg/dl = 6 units Condition: 400-449 mg/dl = 7 units Condition: Greater than 449 call physician Protocol Text: Suggested for: - Patients on Total Daily Insulin Dose of 37-55 units - Obese, infected, or steroid patients MEDIUM DOSING ALGORITHIM Rx Instructions: plus sliding scale albuterol sulfate 2.5 mg /3 mL (0.083 %) solution for nebulization 2.5 mg inhalation Q8H PRN (Reason: shortness of breath or wheezing) Patient Comments: [NO ORIGINAL SIG] gabapentin 400 mg capsule 400 mg PO TID nystatin 100,000 unit/gram powder 1 applic topical DAILY bupropion HCl 300 mg tablet extended release 24 hr 300 mg PO QHS insulin glargine U-300 conc [Toujeo SoloStar U-300 Insulin] 300 unit/mL (1.5 mL) insulin pen 80 unit subcut DAILY Trelegy Ellipta 200-62.5-25 mcg blister with device 1 ea inhalation DAILY Referrals / Follow Up: Robb Nj DPM [Med Staff - Active Staff, Podiatry] - In 1 Week Ricci Borussard MD [Primary Care Provider, Medical] Disposition Disposition (needs filled in before D/C Order can be placed): Custodial Facility Charges/Coding Visit Charges Inpatient E&M: 53634 Disch Hosp >30min
--- NOTE | 2025-08-16 14:46 | CASEMGMT ---
Social Work Precert has been obtained for pt to discharge to [facility]. Physician notified and pt is ready for dc today. DC medical assistant supervisor updated and to complete discharge. Disposition: [facility], skilled level of care. BONIFACIO Harding
--- NOTE | 2025-08-16 14:46 | PHA.DC.MR.R ---
Pharmacy [place] Med Reconciliation Pharmacy Service has performed discharge medication reconciliation for this patient. The patient's discharge medication list was reviewed for discrepancies and discrepancies were resolved. Medications at Discharge Home Medications quetiapine 300 mg tablet 300 mg PO QHS mood 01/11/22 albuterol sulfate 90 mcg/actuation aerosol inhaler 90 inh inhalation Q4H PRN PRN sob 01/17/22 bupropion HCl 150 mg 24 hr tablet, extended release 150 mg PO DAILY mood 01/17/22 buspirone 10 mg tablet 20 mg PO TID mood 01/17/22 omeprazole 40 mg capsule,delayed release 40 mg PO DAILY gerd 05/01/22 promethazine 25 mg tablet 25 mg PO Q6H PRN nausea 08/04/23 quetiapine 25 mg tablet 25 mg PO TID PRN mental health 08/04/23 albuterol sulfate 2.5 mg/3 mL (0.083 %) solution for nebulization 2.5 mg inhalation Q8H PRN shortness of breath or wheezing 07/20/25 bupropion HCl 300 mg 24 hr tablet, extended release 300 mg PO QHS 07/20/25 fluticasone fur. 200 mcg-umeclid 62.5 mcg-vilant 25 mcg inhalat.powder (Trelegy Ellipta) 1 ea inhalation DAILY 07/20/25 gabapentin 400 mg capsule 400 mg PO TID 07/20/25 insulin glargine U-300 conc 300 unit/mL (1.5 mL) subcutaneous pen (Toujeo SoloStar U-300 Insulin) 80 unit subcut DAILY 07/20/25 nystatin 100,000 unit/gram topical powder 1 applic topical DAILY 07/20/25 acetaminophen 500 mg tablet 1,000 mg (2 x 500 mg) PO Q8 #0 tabs 08/16/25 cyclobenzaprine 5 mg tablet 5 mg PO TID PRN Muscle Spasm #0 tabs 08/16/25 enoxaparin 40 mg/0.4 mL subcutaneous syringe 40 mg (0.4 mL) subcut DAILY 30 days #0 mL 08/16/25 insulin lispro 100 unit/mL subcutaneous pen (Humalog KwikPen (U-100) Insulin) See Protocol subcut TID diabetes #15 mL 08/16/25 melatonin 3 mg tablet 3 mg PO QHS PRN PRN Insomnia #0 tabs 08/16/25 nicotine 14 mg/24 hr daily transdermal patch 14 mg transdermal DAILY #0 ea 08/16/25 oxycodone 5 mg tablet 5 mg PO Q4H PRN PRN Pain Score 4-10 2 days #8 tabs 08/16/25
--- NOTE | 2025-08-16 15:37 | CASEMGMT ---
Discharge Planning Discharge orders, signed med list, and transport time sent via [facility]Port to [facility]. Physicians will transport pt by wheelchair at 6p. Nursing, SW, pt, and her daughter (Tammi) updated. Lisa Moe DC Planning Asst.
--- NOTE | 2025-08-16 17:42 | NURSING ---
-Called [facility] to give report; talked to Nu. All questions answered. No other questions.
== END 2025-08-16 18:41 | disposition skilled nursing facility (03) | DRG 492 ==
LOC: ED 04:32 → PCU 04:52
PROVIDERS: Internal Medicine; Podiatrist Foot & Ankle Surgery; Admitting Provider Family Medicine; Emergency Provider Emergency Medicine; PCP Family Medicine
PROC: 0QSJ04Z Reposition Right Fibula with Internal Fixation Device, Open Approach (ICD-10-PCS; principal; 2025-08-12 11:10)
DX: S82.851A Displaced trimalleolar fracture of right lower leg, initial encounter for closed fracture (principal); S82.401B Unspecified fracture of shaft of right fibula, initial encounter for open fracture type I or II; N39.0 Urinary tract infection, site not specified; E11.43 Type 2 diabetes mellitus with diabetic autonomic (poly)neuropathy; E66.9 Obesity, unspecified; E78.5 Hyperlipidemia, unspecified; B96.20 Unspecified Escherichia coli [E. coli] as the cause of diseases classified elsewhere; J44.9 Chronic obstructive pulmonary disease, unspecified; I10 Essential (primary) hypertension; F32.A Depression, unspecified; Z79.4 Long term (current) use of insulin; F17.210 Nicotine dependence, cigarettes, uncomplicated; M79.7 Fibromyalgia; K21.9 Gastro-esophageal reflux disease without esophagitis; F41.9 Anxiety disorder, unspecified; W19.XXXA Unspecified fall, initial encounter; Z79.51 Long term (current) use of inhaled steroids; Z79.899 Other long term (current) drug therapy; Z68.34 Body mass index [BMI] 34.0-34.9, adult
CPT/HCPCS: 36415; 73600; 73610; 73700; 76000; 80048; 80076; 81001; 82010; 82962; 83036; 83605; 83690; 83735; 84100; 84134; 84145; 85025; 85027; 85610; 87086; 87088; 87186; 87631; 93005; 94640; 94668; 97162; 97166; 97530; 97535; 99285; C1713; A4216; J2405